=== PATIENT | male | born 1960 | race Caucasian/White ===

== ENCOUNTER → 2017-04-22 15:55 | Outpatient (CLI) | payer OTHER, SELFPAY ==
[2017-04-22 17:45] LABS: Absolute Lymphocyte Count 1.71 X10^3/ul (0.83-4.51); Absolute Neutrophil Count 4.2 X10^3/uL (2.0-7.7); Basophil# 0.02 X10^3/uL; Basophil% 0.3 % (0-1); Eosinophil# 0.28 X10^3/uL; Eosinophils% 4.1 % (0-5); Hemoglobin 12.4 g/dl (13.0-16.5); Lymphocyte # 1.71 X10^3/ul (4.0); Mean Corp Hgb Conc 32.6 g/gl (32-36); Mean Corpuscular Hgb 29.7 pg (27.0-32.0); Mean Corpuscular Volume 91.1 fL (80-94); Mean Platelet Vol. 9.7 fl (6.2-12.0); Monocyte# 0.56 X10^3/uL; Monocyte% 8.2 % (0-10); Neutrophil # 4.24 X10^3/uL (2.7-7.7); Neutrophil % 62.1 % (47-70); Platelet Count 258 K/mm3 (150-450); RBC Distribution Width CV 14.8 % (11.6-14.6); RBC Distribution Width SD 48.1 fl (35.1-43.9); Red Blood Count 4.17 M/mm3 (4.6-6.2); White Blood Count 6.8 K/mm3 (4.4-11.0)
[2017-04-22 17:51] LABS: ALB/GLOB Ratio 1.2 RATIO (0.9-2.4); AST(SGOT) 28 U/L (15-37); Alanine Aminotransfer ALT/SGPT 49 U/L (16-61); Albumin, Serum 3.7 g/dL (3.2-5.0); Alkaline Phosphatase 68 U/L (45-117); Anion Gap 7 (5-15); BUN 19 mg/dL (7-18); BUN/Creat Ratio 21.9 RATIO (10-20); Calcium,Total 8.5 mg/dL (8.5-10.1); Chloride 103 mmol/L (98-107); Creatinine, Serum 0.87 mg/dL (0.70-1.30); EST Glomerular Filtration Rate 96 mL/min (>60); Est Glom Filt Rate - Afr Amer 116 mL/min (>60); Globulin 3.2 g/dL (2.2-4.2); Glucose 98 mg/dL (74-106); Potassium 3.8 mmol/L (3.5-5.1); Protein, Total 6.9 g/dL (6.4-8.2); Sodium Level 140 mmol/L (136-145)
[2017-04-22 17:56] LABS: POSITIVE COUNT NO; POSITIVE DIFFERENTIAL NO; POSITIVE MORPHOLOGY NO
== END ==
PROVIDERS: Family Provider Internal Medicine; PCP Internal Medicine; Visit Provider Internal Medicine Rheumatology
DX: M06.09 Rheumatoid arthritis without rheumatoid factor, multiple sites (principal); Z79.899 Other long term (current) drug therapy; M75.40 Impingement syndrome of unspecified shoulder; K21.9 Gastro-esophageal reflux disease without esophagitis; M50.30 Other cervical disc degeneration, unspecified cervical region; G47.33 Obstructive sleep apnea (adult) (pediatric); I10 Essential (primary) hypertension; F32.89 Other specified depressive episodes; J45.909 Unspecified asthma, uncomplicated
CPT/HCPCS: 36415; 80053; 85025

== ENCOUNTER → 2017-06-04 15:46 | Outpatient (CLI) | payer OTHER, SELFPAY ==
--- NOTE | 2017-06-04 15:48 | RAD_ITS ---
STUDY: X-RAY - RIGHT FOOT CLINICAL: Male, 56 years old. Right foot pain. TECHNIQUE: 3 view(s) of the foot. COMPARISON: None. FINDINGS: Normal talus, calcaneus, and tarsal bones. Normal visualized subtalar, talonavicular, calcaneocuboid, tarsal and tarsometatarsal articulations. Normal metatarsi. There is degenerative arthrosis of the metatarsophalangeal joint of the hallux . There is an 8 mm subchondral cyst of the head of the first metatarsal. Normal tibial and fibular sesamoid bones. Normal interphalangeal joint of the great toe. Normal phalanges of the great toe. Normal second through fifth metatarsophalangeal joints. Normal interphalangeal joints and phalanges of the lesser toes. The soft tissue structures are unremarkable. RAD/Foot min 3 Views IMPRESSION: No acute abnormality. Prominent degenerative changes of the first metatarsophalangeal joint. Electronically Signed: Anuel Harrison MD at 23:13 EDT , Service support ,
--- NOTE | 2017-06-04 15:55 | RAD_ITS ---
STUDY: X-RAY - LEFT FOOT CLINICAL: Male, 56 years old. Pain. TECHNIQUE: 3 view(s) of the foot. COMPARISON: None. FINDINGS: Normal talus, calcaneus, and tarsal bones. Normal visualized subtalar, talonavicular, calcaneocuboid, tarsal and tarsometatarsal articulations. Normal metatarsi. Normal metatarsophalangeal joint of the great toe. Normal tibial and fibular sesamoid bones. Normal interphalangeal joint of the great toe. Normal phalanges of the great toe. Normal second through fifth metatarsophalangeal joints. Normal interphalangeal joints and phalanges of the lesser toes. The soft tissue structures are unremarkable. There is no demonstrated fracture. RAD/Foot min 3 Views IMPRESSION: Normal x-ray examination of the foot. Electronically Signed: Anuel Harrison MD at 23:14 EDT , Service support ,
== END ==
PROVIDERS: Family Provider Internal Medicine; PCP Internal Medicine; Visit Provider Podiatrist
DX: M19.90 Unspecified osteoarthritis, unspecified site (principal)
CPT/HCPCS: 73630

== ENCOUNTER → 2017-06-29 08:26 | Outpatient (CLI) | payer OTHER, SELFPAY ==
[2017-06-29 08:40] LABS: Bacteria 0 SEEN /hpf (None Seen); Mucous, Urine 0 SEEN /hpf (<or=2+); Red Blood Cells-Urine 0 SEEN /hpf (0-5); Squamous Epithelial Cells - UA 0 SEEN /hpf (0-5); White Blood Cells 0 SEEN /hpf (0-5)
[2017-06-29 09:10] LABS: Absolute Lymphocyte Count 1.73 X10^3/ul (0.83-4.51); Absolute Neutrophil Count 2.9 X10^3/uL (2.0-7.7); Basophil# 0.02 X10^3/uL; Basophil% 0.4 % (0-1); Color, Urine Yellow (Yellow); Eosinophils% 3.7 % (0-5); Glucose, Dipstick Normal (Normal); Hematocrit 39.2 % (40-54); Hemoglobin 12.3 g/dl (13.0-16.5); Ketone-Dipstick 5 mg/dl (Negative); Leukocyte Esterase-Dipstick Negative /ul (Negative); Lymphocyte # 1.73 X10^3/ul (4.0); Lymphocyte % 32.4 % (19-41); Mean Corp Hgb Conc 31.4 g/gl (32-36); Mean Corpuscular Hgb 28.9 pg (27.0-32.0); Mean Corpuscular Volume 92.2 fL (80-94); Mean Platelet Vol. 9.1 fl (6.2-12.0); Monocyte# 0.53 X10^3/uL; Monocyte% 9.9 % (0-10); Neutrophil # 2.85 X10^3/uL (2.7-7.7); Neutrophil % 53.4 % (47-70); Nitrite-Dipstick Negative (Negative); Occult Blood-Urine Negative /ul (Negative); POSITIVE COUNT NO; POSITIVE DIFFERENTIAL NO; POSITIVE MORPHOLOGY NO; Platelet Count 226 K/mm3 (150-450); Protein-Dipstick Negative (Negative); RBC Distribution Width SD 53.5 fl (35.1-43.9); Red Blood Count 4.25 M/mm3 (4.6-6.2); Urine Clarity Clear (Clear); Urine Urobilinogen Normal (Normal); White Blood Count 5.3 K/mm3 (4.4-11.0)
[2017-06-29 09:11] LABS: Urine Bilirubin Dipstick 1 mg/dL (Negative)
[2017-06-29 09:32] LABS: Microalbumin,Random Urine 10.9 mg/L (NO RANGE EST.); Microalbumin:Creatinine Ratio 4.1 mg/g CRE (<30 mg/g CRE)
[2017-06-29 09:37] LABS: ALB/GLOB Ratio 1.1 RATIO (0.9-2.4); AST(SGOT) 22 U/L (15-37); Alanine Aminotransfer ALT/SGPT 36 U/L (16-61); Albumin, Serum 3.5 g/dL (3.2-5.0); Alkaline Phosphatase 55 U/L (45-117); Anion Gap 4 (5-15); BUN 19 mg/dL (7-18); BUN/Creat Ratio 22.7 RATIO (10-20); Calcium,Total 8.4 mg/dL (8.5-10.1); Chloride 108 mmol/L (98-107); Cholesterol 132 mg/dL (200); Creatinine, Serum 0.84 mg/dL (0.70-1.30); EST Glomerular Filtration Rate 100 mL/min (>60); Est Glom Filt Rate - Afr Amer 121 mL/min (>60); Globulin 3.2 g/dL (2.2-4.2); Glucose 95 mg/dL (74-106); High Density Lipoprotein 56 mg/dL; Potassium 4.2 mmol/L (3.5-5.1); Protein, Total 6.7 g/dL (6.4-8.2); Sodium Level 141 mmol/L (136-145); Thyroid Stim Hormone (TSH) 0.84 uIU/mL (0.358-3.74); Triglycerides 47 mg/dL; Very Low Density Lipoprotein 9 mg/dL (5-40)
[2017-07-01 09:30] LABS: Vitamin D,25 Hydroxy 38.9 ng/mL (29.95-100.01)
== END ==
PROVIDERS: Family Provider Internal Medicine; PCP Internal Medicine; Visit Provider Internal Medicine
DX: M06.00 Rheumatoid arthritis without rheumatoid factor, unspecified site (principal); Z79.899 Other long term (current) drug therapy; M75.42 Impingement syndrome of left shoulder; M75.41 Impingement syndrome of right shoulder; K21.9 Gastro-esophageal reflux disease without esophagitis; M50.30 Other cervical disc degeneration, unspecified cervical region; G47.33 Obstructive sleep apnea (adult) (pediatric); I10 Essential (primary) hypertension; F32.89 Other specified depressive episodes; J45.909 Unspecified asthma, uncomplicated; E55.9 Vitamin D deficiency, unspecified; R73.02 Impaired glucose tolerance (oral)
CPT/HCPCS: 80053; 80061; 81001; 82043; 82306; 82570; 83036; 84443; 85025

== ENCOUNTER → 2017-09-25 14:44 | Outpatient (CLI) | payer OTHER, SELFPAY ==
--- NOTE | 2017-09-25 14:50 | RAD_ITS ---
STUDY: X-RAY - RIGHT FOOT CLINICAL: Male, 57 years old. Lateral foot trauma, pain. TECHNIQUE: 3 view(s) of the foot. COMPARISON: None. FINDINGS: Osteopenia. Mild DJD of the interphalangeal joints, mild to moderate of the 1st digit metatarsophalangeal joint, mild hallux valgus of the 1st digit. No fracture. Preserved arch. Unremarkable soft tissues. Prominent peripheral vascular calcifications. RAD/Foot min 3 Views IMPRESSION: No evidence of acute injury. Electronically Signed: Davin Cárdenas, at 18:04 EDT Tel , Service support ,
--- NOTE | 2017-09-25 14:50 | RAD_ITS ---
STUDY: X-RAY - RIGHT KNEE REASON FOR EXAM: Male, 57 years old. Pain, no injury. TECHNIQUE: 4 view(s) of the knee. COMPARISON: None. FINDINGS: Osteopenia. No effusion. Periarticular soft tissues unremarkable. Mild joint margin osteophytic lipping of the patellofemoral articulation, in particular the lateral facets. No significant degenerative features of the medial or lateral compartment of the knee. RAD/Knee 4 or More Views IMPRESSION: Mild DJD of the patellofemoral joint. Electronically Signed: Davin Cárdenas, at 18:05 EDT Tel , Service support ,
== END ==
PROVIDERS: Family Provider Internal Medicine; PCP Internal Medicine; Visit Provider Internal Medicine
DX: M25.561 Pain in right knee (principal); M79.671 Pain in right foot
CPT/HCPCS: 73564; 73630

== ENCOUNTER → 2017-10-11 16:45 | Outpatient (CLI) | payer OTHER, SELFPAY ==
[2017-10-11 17:08] LABS: Absolute Lymphocyte Count 1.45 X10^3/ul (0.83-4.51); Absolute Neutrophil Count 5.4 X10^3/uL (2.0-7.7); Basophil# 0.02 X10^3/uL; Basophil% 0.3 % (0-1); Eosinophil# 0.11 X10^3/uL; Eosinophils% 1.4 % (0-5); Hematocrit 40.2 % (40-54); Lymphocyte # 1.45 X10^3/ul (4.0); Mean Corp Hgb Conc 32.3 g/gl (32-36); Mean Corpuscular Hgb 29.6 pg (27.0-32.0); Mean Corpuscular Volume 91.6 fL (80-94); Mean Platelet Vol. 9.3 fl (6.2-12.0); Monocyte# 0.67 X10^3/uL; Monocyte% 8.8 % (0-10); Neutrophil # 5.39 X10^3/uL (2.7-7.7); Neutrophil % 70.4 % (47-70); Platelet Count 218 K/mm3 (150-450); RBC Distribution Width CV 15.5 % (11.6-14.6); RBC Distribution Width SD 50.1 fl (35.1-43.9); Red Blood Count 4.39 M/mm3 (4.6-6.2); White Blood Count 7.7 K/mm3 (4.4-11.0)
[2017-10-11 17:10] LABS: POSITIVE COUNT NO; POSITIVE DIFFERENTIAL NO; POSITIVE MORPHOLOGY NO
[2017-10-11 17:36] LABS: ALB/GLOB Ratio 1.2 RATIO (0.9-2.4); AST(SGOT) 27 U/L (15-37); Alanine Aminotransfer ALT/SGPT 37 U/L (16-61); Albumin, Serum 3.9 g/dL (3.2-5.0); Alkaline Phosphatase 62 U/L (45-117); Anion Gap 6 (5-15); BUN 19 mg/dL (7-18); BUN/Creat Ratio 18.3 RATIO (10-20); Calcium,Total 8.7 mg/dL (8.5-10.1); Chloride 104 mmol/L (98-107); Creatinine, Serum 1.04 mg/dL (0.70-1.30); EST Glomerular Filtration Rate 78 mL/min (>60); Est Glom Filt Rate - Afr Amer 94 mL/min (>60); Globulin 3.3 g/dL (2.2-4.2); Glucose 110 mg/dL (74-106); Potassium 4.2 mmol/L (3.5-5.1); Protein, Total 7.2 g/dL (6.4-8.2); Sodium Level 138 mmol/L (136-145)
== END ==
PROVIDERS: Family Provider Internal Medicine; PCP Internal Medicine; Visit Provider Internal Medicine Rheumatology
DX: M06.00 Rheumatoid arthritis without rheumatoid factor, unspecified site (principal); Z79.899 Other long term (current) drug therapy; M75.42 Impingement syndrome of left shoulder; M75.41 Impingement syndrome of right shoulder; K21.9 Gastro-esophageal reflux disease without esophagitis; M50.30 Other cervical disc degeneration, unspecified cervical region; G47.33 Obstructive sleep apnea (adult) (pediatric); I10 Essential (primary) hypertension; F32.89 Other specified depressive episodes; J45.909 Unspecified asthma, uncomplicated
CPT/HCPCS: 36415; 80053; 85025

== ENCOUNTER → 2017-10-23 08:31 | Outpatient (CLI) | payer OTHER, SELFPAY ==
[2017-10-23 10:47] LABS: Hemoglobin A1c 5.7 % (4.2-6.3)
== END ==
PROVIDERS: Family Provider Internal Medicine; PCP Internal Medicine; Visit Provider Internal Medicine
DX: R73.02 Impaired glucose tolerance (oral) (principal)
CPT/HCPCS: 36415; 83036

== ENCOUNTER 2017-10-23 08:44 | Outpatient (RCR) | payer OTHER, SELFPAY ==
--- NOTE | 2017-10-23 09:30 | HP.PTEVAL_ITS ---
Patient's Visit Information ED Cristian MORROW is a 57 year old M referred to Physical Therapy by Cari Portillo with a diagnosis of BPPV. Date of Evaluation: 10/23/17 Physical Therapist: Farrukh Mcleod DPT, [place] - Visit Plan Frequency: 1x/Week Duration: 2-6 Plan: weekly as needed for positional treatments - Subjective Subjective: Got vertigo about a month ago. Woke up one morning out of bed and started spinning and almost fell down. Lasted a few seconds. Bending over or getting up can still cause it for a few seconds. Lying down at night with L ear causes spinning. Rolling to L causes it also. Happening a couple times per day. In between these sessions, no problems, sometimes has SCHERER more pronounced than normal but balance is good and no other goofy feelings. Sleep is good. Gets dizzy at work but it doesn't stop him. 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 Mary : no dizzyness. Basic aDLs are OK - Objective c/s AROM limited but not painful. L HD + up torsional 10 sec. - R HD. Balance is good. walks well and trasnfers easily and I. - Balance Scores Functional Gait Assessment Score: 30 % Disability: 0 - Goals Goal 1:: Abolish dizzyness Goal Time Frame: 2-4 Weeks Goal 2:: Patient feel 100% back to normal. Goal Time Frame: 2-4 Weeks - Rehabilitation Potential Physical Therapy Diagnosis: L posterior BPPV Rehabilitation Potential: Good - Anticipated Interventions Patient/Client Instruction: Educate patient on: Condition, Plan of Care For the Purpose of:: To increase tolerance to activity/condition/position Comment: positional treatments and ex as needed. For the Purpose of:: To increase tolerance to activity/condition/position, To improve ability of physical actions for home/community/work/leisure Thank you for the opportunity to evaluate your patient. For Medicare and Medicare HMO plans, please review the plan of care and approve it. It will need to be FAXED BACK to us at [phone] for Medicare purposes. Please let me know if there are questions or concerns regarding this plan of care. Physician Signature: Date:
--- NOTE | 2017-10-30 08:44 | HP.PTDCSUM_ITS ---
HP - PT D/C Summary It has been my pleasure to treat ED R CRISTHIAN under orders from Cari Portillo , for the diagnosis of BPPV for a total of 1 visit(s). Discharge Date: 10/30/17 Please see the following information for a summary of their discharge status. - Overall Improvement % Improvement: 100 - Goals Goal 1:: Abolish dizzyness Goal Progress: Goal Met Goal 2:: Patient feel 100% back to normal. Goal Progress: Goal Met - Plan Plan: D/C - D/C Information Discharge Comments: Pt has called adn I spoke to him on the phone. He is 100% better since positional treatment and does not need to return. Not avoiding any activities. Will f/u with doctor next week. If there are questions or concerns regarding this patient's physical therapy, please feel free to call me at [phone]. Thank you for the referral of this patient. Sincerely, Farrukh Mcleod, DPT, [place]
== END 2017-10-23 19:00 | disposition home or self-care (01) ==
LOC: PT 08:44
PROVIDERS: Family Provider Internal Medicine; PCP Internal Medicine; Visit Provider Internal Medicine
DX: H81.10 Benign paroxysmal vertigo, unspecified ear (principal)
CPT/HCPCS: 97161

== ENCOUNTER → 2018-03-08 07:00 | Outpatient (CLI) | payer OTHER, SELFPAY ==
[2018-01-18 08:15] VITALS: BMI 41.8
[2018-03-08 07:09] LABS: Bacteria 0 SEEN /hpf (None Seen); Mucous, Urine 0 SEEN /hpf (<or=2+); Red Blood Cells-Urine 0 SEEN /hpf (0-5); Squamous Epithelial Cells - UA 0 SEEN /hpf (0-5); White Blood Cells 0 SEEN /hpf (0-5)
[2018-03-08 08:25] LABS: Color, Urine Yellow (Yellow); Glucose, Dipstick Normal (Normal); Ketone-Dipstick Negative (Negative); Leukocyte Esterase-Dipstick Negative /ul (Negative); Nitrite-Dipstick Negative (Negative); Occult Blood-Urine Negative /ul (Negative); Protein-Dipstick Negative (Negative); Urine Bilirubin Dipstick Negative (Negative); Urine Clarity Clear (Clear); Urine Urobilinogen Normal (Normal)
[2018-03-08 08:43] LABS: Absolute Lymphocyte Count 1.37 X10^3/ul (0.83-4.51); Absolute Neutrophil Count 2.9 X10^3/uL (2.0-7.7); Basophil# 0.03 X10^3/uL; Basophil% 0.6 % (0-1); Eosinophil# 0.51 X10^3/uL; Eosinophils% 9.4 % (0-5); Hematocrit 41.7 % (40-54); Hemoglobin 13.2 g/dl (13.0-16.5); Lymphocyte # 1.37 X10^3/ul (4.0); Lymphocyte % 25.2 % (19-41); Mean Corp Hgb Conc 31.7 g/gl (32-36); Mean Corpuscular Hgb 29.4 pg (27.0-32.0); Mean Corpuscular Volume 92.9 fL (80-94); Mean Platelet Vol. 10.2 fl (6.2-12.0); Monocyte# 0.59 X10^3/uL; Monocyte% 10.9 % (0-10); Neutrophil # 2.92 X10^3/uL (2.7-7.7); Neutrophil % 53.7 % (47-70); POSITIVE COUNT NO; POSITIVE DIFFERENTIAL NO; POSITIVE MORPHOLOGY NO; Platelet Count 215 K/mm3 (150-450); RBC Distribution Width CV 15.3 % (11.6-14.6); RBC Distribution Width SD 50.8 fl (35.1-43.9); Red Blood Count 4.49 M/mm3 (4.6-6.2); White Blood Count 5.4 K/mm3 (4.4-11.0)
[2018-03-08 08:58] LABS: Microalbumin,Random Urine < 5.0 mg/L (NO RANGE EST.)
[2018-03-08 09:08] LABS: ALB/GLOB Ratio 1.1 RATIO (0.9-2.4); AST(SGOT) 18 U/L (15-37); Alanine Aminotransfer ALT/SGPT 31 U/L (16-61); Albumin, Serum 3.6 g/dL (3.2-5.0); Alkaline Phosphatase 61 U/L (45-117); Anion Gap 7 (5-15); BUN 13 mg/dL (7-18); BUN/Creat Ratio 15.4 RATIO (10-20); Calcium,Total 8.6 mg/dL (8.5-10.1); Chloride 106 mmol/L (98-107); Creatinine, Serum 0.84 mg/dL (0.70-1.30); EST Glomerular Filtration Rate 99 mL/min (>60); Est Glom Filt Rate - Afr Amer 120 mL/min (>60); Globulin 3.2 g/dL (2.2-4.2); Glucose 91 mg/dL (74-106); Potassium 4.2 mmol/L (3.5-5.1); Protein, Total 6.8 g/dL (6.4-8.2); Sodium Level 142 mmol/L (136-145); Thyroid Stim Hormone (TSH) 1.19 uIU/mL (0.358-3.74)
[2018-03-08 09:21] LABS: Hemoglobin A1c 6.2 % (4.2-6.3)
[2018-03-08 13:20] LABS: Vitamin D,25 Hydroxy 47.8 ng/mL (29.95-100.01)
[2018-03-10 20:08] LABS: CHOLESTEROL TOTAL 166 mg/dL (100-199); HDL-C 52 mg/dL (>39); HDL-P TOTAL 35.5 umol/L (>=30.5); SMALL LDL-P 266 nmol/L (<=527); TRIGLYCERIDES 71 mg/dL (0-149)
[2018-03-11 08:17] LABS: LDL SIZE 21.4 nm (>20.5); LDL-C 100 mg/dL (0-99); LDL-P 1191 nmol/L (<1000)
[2018-03-11 08:18] LABS: LP-IR SCORE ** 29 (<=45)
== END ==
PROVIDERS: Family Provider Internal Medicine; PCP Internal Medicine; Referring Provider Internal Medicine; Visit Provider Internal Medicine
DX: R73.02 Impaired glucose tolerance (oral) (principal); E55.9 Vitamin D deficiency, unspecified
CPT/HCPCS: 36415; 80053; 80061; 81001; 82043; 82306; 82570; 83036; 83704; 84443; 85025

== ENCOUNTER → 2018-03-18 15:46 | Outpatient (CLI) | payer OTHER, SELFPAY ==
[2018-01-18 08:15] VITALS: BMI 41.8
[2018-03-18 16:12] LABS: Absolute Neutrophil Count 4.8 X10^3/uL (2.0-7.7); Basophil# 0.02 X10^3/uL; Basophil% 0.3 % (0-1); Eosinophil# 0.59 X10^3/uL; Eosinophils% 7.5 % (0-5); Hematocrit 42.6 % (40-54); Hemoglobin 13.6 g/dl (13.0-16.5); Lymphocyte % 21.6 % (19-41); Mean Corp Hgb Conc 31.9 g/gl (32-36); Mean Corpuscular Hgb 29.2 pg (27.0-32.0); Mean Corpuscular Volume 91.6 fL (80-94); Mean Platelet Vol. 9.8 fl (6.2-12.0); Monocyte# 0.72 X10^3/uL; Monocyte% 9.2 % (0-10); Neutrophil # 4.81 X10^3/uL (2.7-7.7); Neutrophil % 61.1 % (47-70); Platelet Count 247 K/mm3 (150-450); RBC Distribution Width SD 49.3 fl (35.1-43.9); Red Blood Count 4.65 M/mm3 (4.6-6.2); White Blood Count 7.9 K/mm3 (4.4-11.0)
[2018-03-18 16:21] LABS: POSITIVE COUNT NO; POSITIVE DIFFERENTIAL NO; POSITIVE MORPHOLOGY NO
[2018-03-18 16:32] LABS: PSA,Total - Annual Screen 0.62 ng/mL (0.00-4.00)
--- OUTSIDE RECORDS SUMMARY | 2018-05-20 21:49 | XMS RPT_ITS | Continuity of Care Document ---
:1960 Author Organization [facility] Address [address] [place] [address] Phone Care Team Providers Name Role Phone Cari Coles DO Unavailable Andrea Garcia Unavailable Dr. Long Colmenares Unavailable [facility], [facility] Unavailable Dr. Fabio Robb Unavailable Dr. Markel Montes Unavailable Paco Schaffer Unavailable Axel SINGH, Graham Canales Unavailable Dr. Yariel Palmer Unavailable Dr. Ca Valenzuela Unavailable Dr. Uzair Tay MD Unavailable Shahid SINGH, Kole Arevalo Unavailable [facility] Unavailable Fredi Perez Unavailable Kitty SINGH, Max Rodriguez Unavailable STACIA Rodriguez Unavailable Unavailable caterina gonsales Unavailable Unavailable Rebekah Neff Unavailable Unavailable Unavailable Unavailable Problems Name Dates Details Abnormal glucose tolerance test (Renamed from Abnormal glucose tolerance test (GTT)) (R73.09, 790.22) Comments: stopped metformin as trial to come off with sugar conttrol- [facility] went up but over holidays-- he wants to get back on lifestryle track nad do no meds x4mo he will adhere to diet and exercise Status: Active Actinic keratosis (L57.0, 702.0) Status: Active Allergic reaction to drug, initial encounter (T78.40XA, 995.27) Status: Active Asthma (J45.909, 493.90) Comments: pt doesnt use inhalers - 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 Status: Active BMI 40.0-44.9, adult (Z68.41, V85.41) Status: Active BMI 45.0-49.9, adult (Z68.42, V85.42) Status: Active Borderline diabetes (R73.03, 790.29) Status: Active BPV (benign positional vertigo), bilateral (H81.13, 386.11) Status: Active Carotid stenosis (I65.29, 433.10) Comments: rev 2016 Status: Active carotodynia Status: Active Cervical radiculopathy, acute (M54.12, 723.4) Status: Active Daytime somnolence (Renamed from Daytime hypersomnolence) (R40.0, 780.54) Status: Active Diaphragmatic hernia without obstruction (K44.9, 553.3) Status: Active Dizzy spells (R42, 780.4) Status: Active Ear pressure, bilateral (H93.8X3, 388.8) Comments: resume nasal spray and decog-- on zyzal already -- no s/s of sinus infection to treat adn last time went to urgent care they told him same but gave zpack as trial of smoldering infection causing sx and it didnt helpprob weather front related offered ENT consult and he declined today Status: Active Eczema (L30.9, 692.9) Status: Active Elevated hemoglobin A1c (R73.09, 790.29) Status: Active Encounter for screening for malignant neoplasm of colon (Renamed from Special screening for malignant neoplasms, colon) (Z12.11, V76.51) Status: Active Eosinophilia (D72.1, 288.3) Comments: will repeat cbc first before other w/u-- alexi known asthma Status: Active ETD (Eustachian tube dysfunction), bilateral (H69.83, 381.81) Status: Active ETD (Eustachian tube dysfunction), bilateral (H69.83, 381.81) Status: Active Exposure to the flu (Z20.828, V01.79) Status: Active Foot pain, right (M79.671, 729.5) Status: Active Generalized pruritus (L29.9, 698.9) Comments: liver adn kid lab normal -- seeing Dr galindo no chg in rx color or manufacurer Status: Active GERD with apnea (K21.9, 530.81) Status: Active Hyperglycemia (R73.9, 790.29) Status: Active Hypertension (I10, 401.9) Status: Active Immunocompromised, acquired (D84.9, 279.3) Status: Active Influenza vaccination declined (Renamed from Refused influenza vaccine) (Z28.21, V64.06) Status: Active Inversion sprain of right ankle, initial encounter (S93.401A, 845.00) Status: Active Iron deficiency anemia, unspecified (D50.9, 280.9) Comments: chronic stable-continue present regimen Status: Active Itch of skin (L29.9, 698.9) Comments: currently on xyzal 5mg told to increase to 10 mg, needs malignancy work up, will discuss with KF Status: Active Low back pain potentially associated with radiculopathy (M54.5, 724.2) Status: Active Mild degeneration of cervical intervertebral disc (M50.30, 722.4) Comments: getting injections Status: Active Nonsmoker (Z78.9, V49.89) Status: Active Nutritional counseling (Z71.3, V65.3) Status: Active Obstructive sleep apnea, adult (G47.33, 327.23) Status: Active Other anxiety states (F41.1, 300.09) Status: Active Other intervertebral disc degeneration, lumbar region (M51.36, 722.52) Comments: improving with weight loss Status: Active Pain in foot (M79.673, 729.5) Status: Active Pain in joint involving other specified sites (M25.50, 719.48) Status: Active Pain in lateral right lower extremity (M79.604, 729.5) Comments: oferred ncs and emg -- but decliined to do now -- will think about and handle current issues Status: Active Radiculopathy of leg (724.4) Comments: encourage see pain managemnt and consider neurontin Status: Active Rash (R21, 782.1) Comments: fine rash around eyes and fairly fine around face, but itching all over body, labs pending in February look to be appropriate to be drawn sooner Status: Active Raynaud's syndrome (I73.00, 443.0) Status: Active Rheumatoid arthritis (M06.9, 714.0) Comments: dr de discharged him bc they dont get along per patient-- pt doesnt referred to anyone else right now - he wants to stop meds Status: Active Right knee pain, unspecified chronicity (M25.561, 719.46) Status: Active Rosacea (Renamed from Acne erythematosa) (L71.9, 695.3) Status: Active Screening for prostate cancer (Z12.5, V76.44) Status: Active Skin lesion (L98.9, 709.9) Status: Active SYMPTOMS INVOLVING SKIN AND OTHER INTEGUMENTARY TISSUE, FLUSHING (782.62) Status: Active Tendonitis, Achilles, right (M76.61, 726.71) Status: Active VARICOSE VEINS- SUPPORT HOSE Status: Active Vitamin D deficiency (E55.9, 268.9) Status: Active Medications Name Dates Details ASPIRIN LOW DOSE, 81MG (Oral Tablet) 1 tab qd for 0 days Refills: 0 Ordered:08-Feb-2009 Vlad Hunter Cymbalta 60 MG Oral Capsule Delayed Release Particles 1 (one) Capsule DR Part q am for 0 days Quantity: 90 {Capsule} Refills: 3 Ordered:03-Jul-2017 Sharon Coles DO, DO, Kathleen Start : 03-Jul-2017 Active Irbesartan 150 MG Oral Tablet 1 qd (150 MG) Active Levocetirizine Dihydrochloride 5 MG Oral Tablet 1 qd (5 MG) Active Protonix 40 MG Oral Tablet Delayed Release [address] qd for 0 days Quantity: 90 {Tablet} Refills: 3 Ordered:03-Jul-2017 Sanket DO, Cari Herrera DO Start : 03-Jul-2017 Active Simply Sleep 25 MG Oral Tablet 2 qhs (25 MG) Active SINGULAIR, 10MG (Oral Tablet) 1 tab daily (10 MG) Active Advair Diskus 250-50 MCG/DOSE Inhalation Aerosol Powder Breath Activated 1 puff Misc bid for 0 days Quantity: 3 {Inhaler} Refills: 3 Ordered:12-Mar-2018 Libby Rodriguez LPN Start : 07-Feb-2015 End : 12-Mar-2018 Inactive SYEDA, 180MG (Oral Tablet) 1 (one) Tablet qd for 0 days Quantity: 90 {Tablet} Refills: 3 Ordered:28-Oct-2007 Fay Adamson Start : 28-Oct-2007 End : 30-Nov-2008 Inactive SYEDA-D 12 HOUR, 60-120MG (Oral Tablet Extended Release 12 Hour) 1 for 0 days Refills: 0 Ordered:09-Sep-2009 WADE Monterroso Start : 29-Dec-2008 Inactive Artificial Tears 0.1-0.3 % Ophthalmic Solution 1 (one) Solution Solution tid for 0 days Quantity: 1 {Bottle} Refills: 0 Ordered:27-Feb-2017 Kassi Gonsales LPN Start : 16-May-2016 End : 27-Feb-2017 Inactive Avapro 150 MG Oral Tablet 1 (one) Tablet Tablet qd for 0 days Quantity: 30 {Tablet} Refills: 3 Ordered:12-Mar-2018 Libby Rodriguez LPN Start : 12-Feb-2018 End : 12-Mar-2018 Inactive Aveeno Eczema Therapy 1 % External Cream 1 (one) Cream Cream daily for 0 days Quantity: 1 {Bottle} Refills: 0 Ordered:27-Feb-2017 Kassi Gonsales LPN Start : 16-May-2016 End : 27-Feb-2017 Inactive BIAXIN XL, 500MG (Oral Tablet Extended Release 24 Hour) 2 (two) Tablet ER 24HR daily for 10 days Quantity: 20 {Tablet_ER_24HR} Refills: 0 Ordered:14-Jul-2012 Efren Uriarte CNP Start : 14-Jul-2012 End : 24-Jul-2012 Inactive Etodolac ER 400 MG Oral Tablet Extended Release 24 Hour 2 (two) Tablet Tablet qd with food for 0 days Quantity: 20 {Tablet} Refills: 0 Ordered:06-Nov-2017 Libby Rodriguez LPN Start : 03-Jul-2017 End : 06-Nov-2017 Inactive Flonase 50 MCG/ACT Nasal Suspension 2 (two) Puff(s) daily for 0 days Quantity: 1 {[place]} Refills: 0 Ordered:12-Mar-2018 Libby Rodriguez LPN Start : 09-Oct-2017 End : 12-Mar-2018 Inactive Folic Acid 1 MG Oral Tablet 1 Tablet two times daily for 360 days Quantity: 30 {Tablet} Refills: 0 Ordered:12-Mar-2018 Libby Rodriguez LPN Start : 02-Dec-2012 End : 12-Mar-2018 Inactive HYDROXYZINE HCL, 10MG (Oral Tablet) 1 tab q 8hrs, prn (10 MG) Inactive LAMISIL, 250MG (Oral Tablet) 1 (one) Tablet qd for 0 days Quantity: 30 {Tablet} Refills: 2 Ordered:20-Nov-2007 Juan Diego Fay Start : 20-Nov-2007 End : 23-Mar-2008 Inactive LIDODERM, 5% (External Patch) 1 (one) Patch on 12 hrs off 12 hrs for 0 days Quantity: 10 {Patch} Refills: 0 Ordered:06-Mar-2010 Kassi Gonsales LPN Start : 29-Sep-2009 End : 06-Mar-2010 Inactive Meclizine HCl 25 MG Oral Tablet 1 (one) Tablet Tablet q8hr prn for 0 days Quantity: 30 {Tablet} Refills: 0 Ordered:12-Feb-2018 Laura CORONA Allyson Start : 09-Oct-2017 End : 12-Feb-2018 Inactive Meloxicam 15 MG Oral Tablet 1 (one) Tablet Tablet qd with food for 0 days Quantity: 20 {Tablet} Refills: 0 Ordered:12-Feb-2018 Laura CORONA Allyson Start : 25-Sep-2017 End : 12-Feb-2018 Inactive MYCELEX, 10MG (Mouth/Throat Cat) 1 Cat 5 x daily for 10 days Quantity: 50 {Cat} Refills: 0 Ordered:04-May-2011 Laura CORONA Allyson Start : 04-May-2011 End : 14-May-2011 Inactive [id number], 0.1% (Ophthalmic Suspension) apply ointment to each eye q hs (0.1 %) Inactive ProAir HFA 108 (90 Base) MCG/ACT Inhalation Aerosol Solution 2 (two) Aerosol Soln Aerosol Soln puffs qid prn for 0 days Quantity: 1 {Inhaler} Refills: 3 Ordered:12-Mar-2018 Libby Rodriguez LPN Start : 07-Feb-2015 End : 12-Mar-2018 Inactive RHINOCORT DAWITA, 32MCG/ACT (Nasal Suspension) 1 for 0 days Refills: 0 Ordered:04-May-2011 Paras PALOMO Naye Start : 29-Dec-2008 End : 04-May-2011 Inactive Tamiflu 75 MG Oral Capsule 1 (one) Capsule daily for 10 days Quantity: 10 {QS} Refills: 0 Ordered:25-Mar-2017 Essence Jimenez Start : 25-Mar-2017 End : 04-Apr-2017 Inactive ULTRACET, 37.5-325MG (Oral Tablet) 2 tabs Tablet qd,prn for 0 days Quantity: 60 {Tablet} Refills: 3 Ordered:23-Mar-2008 Fay Adamson Start : 05-Nov-2005 End : 18-Mar-2006 Inactive Valium 5 MG Oral Tablet 1/2-1 Tablet Tablet bid prn muscle spasm for 0 days Quantity: 30 {Tablet} Refills: 0 Ordered:12-Mar-2018 Libby Rodriguez LPN Start : 28-Mar-2016 End : 12-Mar-2018 Inactive Comments:thirty ASPIRIN BUFFERED, 325MG (Oral Tablet) 1 (one) Tablet qd for 0 days Refills: 0 Ordered:13-Jan-2007 Fay Adamson Start : 13-Jan-2007 End : 09-Jun-2007 Discontinued ASPIRIN, 325MG (Oral Tablet) 1 tab qd for 0 days Refills: 0 Ordered:23-Mar-2008 Fay Adamson End : 09-Jun-2007 Discontinued Avalide 150-12.5 MG Oral Tablet 1 tab Tablet qd for 0 days Quantity: 30 {Tablet} Refills: 3 Ordered:27-Feb-2017 Sharon Coles DO, DO, Kathleen Start : 27-Feb-2017 End : 27-Feb-2017 Discontinued Avapro 150 MG Oral Tablet 1 (one) Tablet qd for 0 days Quantity: 90 {Tablet} Refills: 3 Ordered:15-Oct-2016 Sharon Coles DO, DO, Kathleen Start : 15-Oct-2016 End : 15-Oct-2016 Discontinued AVAPRO, 300MG (Oral Tablet) 1 (one) Tablet daily for 0 days Quantity: 90 {Tablet} Refills: 2 Ordered:17-Aug-2015 Sharon Coles DO, DO, Kathleen Start : 17-Aug-2015 End : 17-Aug-2015 Discontinued Comments:with wt los CELEXA, 10MG (Oral Tablet) 1 (one) Tablet q hs for 0 days Quantity: 90 {Tablet} Refills: 3 Ordered:29-Jan-2011 Kathie Sen DO Start : 29-Jan-2011 End : 29-Jan-2011 Discontinued CYANOCOBALAMIN, 2000MCG (Oral Tablet) 1 tab qd for 0 days Refills: 0 Ordered:23-Mar-2008 Fay Adamson End : 09-Jun-2007 Discontinued Etodolac 500 MG Oral Tablet 1 tab Tablet BID for 90 days Quantity: 180 {Tablet} Refills: 3 Ordered:16-May-2016 Slarb Myla PALOMO Start : 05-Oct-2014 End : 16-May-2016 Discontinued Comments:Dr. Painting FLEXERIL, 10MG (Oral Tablet) 1 Tablet tid prn for 0 days Quantity: 60 {Tablet} Refills: 0 Ordered:31-Oct-2011 Karyn Hunter Start : 31-Oct-2011 End : 31-Oct-2011 Discontinued Gabapentin 300 MG Oral Capsule 1 (one) Capsule Capsule qhs for 5nights then bid for 5nights then tid for 0 days Quantity: 90 {Capsule} Refills: 1 Ordered:20-Apr-2016 Sharon Coles DO, DO, Kathleen Start : 20-Apr-2016 End : 20-Apr-2016 Discontinued Comments:allergy HYDROCHLOROTHIAZIDE, 12.5MG (Oral Tablet) 1 (one) Tablet daily for 90 days Quantity: 90 {Tablet} Refills: 3 Ordered:09-Nov-2009 Kathie Sen DO A Start : 09-Nov-2009 End : 09-Nov-2009 Discontinued HYDROCORTISONE VALERATE, 0.2% (External Cream) 1 Cream apply bid prn for 0 days Quantity: 60 {Cream} Refills: 1 Ordered:07-Jan-2013 Oscar Sen DOa A Start : 07-Jan-2013 End : 07-Jan-2013 Discontinued LEXAPRO, 10MG (Oral Tablet) 1 (one) Tablet q hs for 0 days Quantity: 30 {Tablet} Refills: 3 Ordered:09-Jun-2007 Fay Adamson Start : 09-Jun-2007 End : 09-Jun-2007 Discontinued LIPITOR, 10MG (Oral Tablet) 1 tab Tablet qd for 0 days Quantity: 30 {Tablet} Refills: 3 Ordered:02-Jan-2006 Fay Adamson Start : 02-Jan-2006 End : 24-Jun-2006 Discontinued LYRICA, 75MG (Oral Capsule) 1 cap Capsule bid for 90 days Quantity: 180 {Capsule} Refills: 3 Ordered:04-Jun-2011 Karyn Hunter Start : 04-Jun-2011 End : 04-Jun-2011 Discontinued MetFORMIN HCl ER 500 MG Oral Tablet Extended Release 24 Hour 2 (two) Tablet ER 24HR qd for 0 days Quantity: 180 {Tablet} Refills: 3 Ordered:06-Nov-2017 Sharon Coles DO, DO, Kathleen Start : 06-Nov-2017 End : 06-Nov-2017 Discontinued Comments:working ondiet and exercise Methotrexate 2.5 MG Oral Tablet 7 Tablet once a week for 90 days Quantity: 210 {Tablet} Refills: 0 Ordered:06-Nov-2017 Sharon Coles DO, DO, Kathleen Start : 06-Nov-2017 End : 06-Nov-2017 Discontinued Comments:veallanke discharged meds METROGEL, 1% (External Gel) 1 (one) Gel Gel apply qd for 0 days Quantity: 60 {Unspecified} Refills: 2 Ordered:07-Jun-2014 Karyn Hunter Start : 24-Apr-2013 End : 07-Jun-2014 Discontinued MULTIVITAMIN (PO Chew Tab) 1 tab qd for 0 days Refills: 0 Ordered:18-Jan-2014 Libby Rodriguez LPN End : 18-Jan-2014 Discontinued Comments:This order discontinued per [facility]. NAPROSYN, 500MG (Oral Tablet) 1 Tablet bid for 0 days Quantity: 30 {Tablet} Refills: 0 Ordered:07-Jan-2013 Kathie Sen DO Start : 07-Jan-2013 End : 07-Jan-2013 Discontinued Comments:with food OCUFLOX, 0.3% (Ophthalmic Solution) 1-2 Metric Drop Metric Drop q2-4h x 2 days, then 1-2 dropss qid x 5dasy for 0 days Quantity: 1 {Bottle} Refills: 0 Ordered:07-Jun-2014 Karyn Hunter Start : 19-Oct-2013 End : 07-Jun-2014 Discontinued PredniSONE 10 MG Oral Tablet 1 Tablet bid x 3 days, daily x 3 days, then 1/2 x3 day for 0 days Quantity: 12 {Tablet} Refills: 0 Ordered:16-May-2016 Raza PALOMOMyla Start : 20-Apr-2016 End : 16-May-2016 Discontinued Comments:with food Xyzal 5 MG Oral Tablet 1 Tablet qd for 90 days Quantity: 90 {Tablet} Refills: 3 Ordered:27-Feb-2017 Libby Rodriguez LPN Start : 27-Feb-2017 End : 12-Mar-2018 Discontinued Comments:This order discontinued per [facility]. ZITHROMAX Z-BOWEN, 250MG (Oral Tablet) 1 (one) Tablet tad for 0 days Quantity: 1 {Package} Refills: 0 Ordered:07-Jun-2014 Karyn Hunter Start : 22-Feb-2014 End : 07-Jun-2014 Discontinued ZYRTEC, 10MG (Oral Tablet) 1 tab Tablet qd for 0 days Quantity: 90 {Tablet} Refills: 3 Ordered:09-Jun-2007 Fay Adamson Start : 09-Jun-2007 End : 09-Jun-2007 Discontinued Allergies and Adverse Reactions Name Dates Details Codeine/Codeine Derivatives (Allergy) Status: Active Gabapentin *ANTICONVULSANTS* (Allergy) Status: Active Sulfa Drugs (Allergy) Status: Active Vicodin *ANALGESICS - OPIOID* (Allergy) Status: Active Past Medical History Name Dates Details Abdominal pain, acute, right upper quadrant (R10.11, 789.01) Status: Resolved as of 09-Nov-2009 Abnormal urine (R82.90, 791.9) Status: Inactive as of 17-Aug-2015 ACCIDENTAL FALL, SAME LEVEL, IN SPORTS (E886.0) Status: Resolved as of 04-Jun-2011 Acute epigastric pain (R10.13, 789.06) Status: Inactive as of 07-Nov-2016 Allergic rhinitis (J30.9, 477.9) Status: Inactive as of 07-Nov-2016 Allergy (T78.40XA, 995.3) Status: Inactive as of 07-Nov-2016 Anemia NEC (285.8) Status: Resolved as of 19-Jun-2010 Anemia, unspecified (D64.9, 285.9) Status: Resolved as of 08-Feb-2009 BMI 50.0-59.9, adult (Z68.43, V85.43) Status: Inactive as of 27-Feb-2017 Breast lump (N63.0, 611.72) Status: Resolved as of 19-Jun-2010 Candidiasis, mouth (B37.0, 112.0) Status: Resolved as of 04-Jun-2011 Cervical radiculopathy (M54.12, 723.4) Status: Inactive as of 17-Aug-2015 Chest pain (R07.9, 786.59) Status: Resolved as of 08-Feb-2009 Chronic pain of left ankle (M25.572, 719.47) Status: Inactive as of 17-Aug-2015 Cough (R05, 786.2) Status: Resolved as of 07-Jun-2014 ear pain- ear was normal- likely ETD- he will try his nasal spray Status: Inactive as of 14-Dec-2008 Edema extremities (R60.0, 782.3) Status: Inactive as of 07-Nov-2016 elevated crp- get followup flp and crp-heart and then stop lipitor and recheck flp and crp in 3 mos Status: Inactive as of 14-Dec-2008 Encounter for screening for malignant neoplasm of rectum (Z12.12, V76.41) Status: Inactive as of 19-Jun-2010 Epigastric pain (R10.13, 789.06) Status: Resolved as of 19-Jun-2010 Epilepsy, unspecified, not intractable, without status epilepticus (G40.909, 345.90) Comments: no seizure since 7 y/o - currently on no meds-- as child due to hi fevers Status: Resolved as of 17-Aug-2015 Eustachian tube dysfunction (H69.80, 381.81) Comments: he has nasal spray will use let know not better Status: Inactive as of 18-Jan-2014 flushing- could be rosacea or avapro- pt doesnt want to intervene was just curious- will follow Status: Inactive as of 14-Dec-2008 full note dictated Status: Inactive as of 14-Dec-2008 Headache (R51, 784.0) Status: Resolved as of 08-Feb-2009 Hypertension (I10, 401.9) Status: Inactive as of 17-Aug-2015 Itching (L29.9, 698.9) Status: Inactive as of 17-Aug-2015 Knee pain, left (M25.562, 719.46) Status: Inactive as of 17-Aug-2015 Low back pain without sciatica, unspecified back pain laterality (724.2) Status: Inactive as of 07-Nov-2016 Medication side effects present, initial encounter (T50.905A, 995.20) Comments: from wt loss and too much bp med?-- will try reduction of avapro like past htat worked -- keep in mind pt has h/o vertigo Status: Inactive as of 07-Nov-2016 Muscle spasm of back (M62.830, 724.8) Status: Inactive as of 07-Nov-2016 myalgias/ neck pain- could be from lipitor - try off and see how does Status: Inactive as of 14-Dec-2008 Neck pain (M54.2, 723.1) Status: Inactive as of 07-Nov-2016 Need for prophylactic vaccination and inoculation against influenza (Z23, V04.81) Status: Inactive as of 04-Jun-2011 onychomycosis Status: Inactive as of 14-Dec-2008 Other specified viral infection, in conditions classified elsewhere and of unspecified site (B97.89, 079.89) 04-May-2011 Status: Resolved as of 04-Jun-2011 Pain in thoracic spine (M54.6, 724.1) Status: Inactive as of 17-Aug-2015 Paresthesia (R20.2, 782.0) Status: Inactive as of 17-Aug-2015 Paresthesia (R20.2, 782.0) Status: Inactive as of 17-Aug-2015 Paresthesia and pain of both upper extremities (R20.2, 782.0) Status: Inactive as of 17-Aug-2015 Pharyngitis, acute (J02.9, 462) Status: Resolved as of 07-Jan-2013 Plantar wart, left foot (B07.0, 078.12) Status: Inactive as of 07-Nov-2016 Proteinuria (R80.9, 791.0) Status: Resolved as of 08-Feb-2009 Red eye (H57.89, 379.93) Comments: add artificial tears Status: Inactive as of 07-Nov-2016 SCREENING FOR HYPERLIPIDEMIA (Z13.220, V77.91) Status: Inactive as of 07-Jan-2013 Serous conjunctivitis, unspecified laterality (H10.239, 372.01) Status: Inactive as of 18-Jan-2014 Shoulder Pain (Renamed from Pain in shoulder) (M25.519, 719.41) Status: Inactive as of 17-Aug-2015 Swelling of Limb (Renamed from Limb swelling) (M79.89, 729.81) Status: Inactive as of 17-Aug-2015 THROAT PAIN (784.1) Status: Resolved as of 08-Feb-2009 Unspecified Diagnosis Status: Inactive as of 07-Jan-2013 Unspecified Diagnosis Status: Inactive as of 07-Jan-2013 varicose veins Status: Inactive as of 17-Aug-2015 Wheezing (R06.2, 786.07) Status: Resolved as of 07-Jun-2014 Procedures Procedure Dates Details laser sx varicose veins left leg 2010 Completed Date Value Details 18-Jan-2018 Urgent Care Visit Report Result: Comments: See Note; NOTES: [facility] [address] [place] [address] OFFICE VISIT Date of Service: 01/18/18 MR#: [id number] Acct: [id number] Name: WILLA FREITAS Cristian Rep # : [id number] : 1960 Provider: STARR Payne Age/Sex: 57/M Location: [facility] Status: Signed Intake Vital Signs01/18/18 Body Mass Index (BMI) 41.8 01/18/18 Height 5 ft 5 in 01/18/18 Weight: 251 lb Intake Visit Reasons: POSS FLU Chief Complaint: cough, low grade fever Allergies codeine Allergy (Verified 01/18/18 08:14) Hives gabapentin [From Neurontin] Allergy (Verified 01/18/18 08:14) Hives Sulfa (Sulfonamide Antibiotics) Allergy (Verified 01/18/18 08:14) Rash Medications Duloxetine Hcl [Cymbalta] 60 mg PO DAILY 04/20/16 [History Confirmed 01/18/18] Folic Acid 1 mg PO BIDCM [History Confirmed 01/18/18] Irbesartan [Avapro] 150 mg PO DAILY 04/20/16 [History Confirmed 01/18/18] Levocetirizine Dihydrochloride [Xyzal] 5 mg PO DAILY 04/20/16 [History Confirmed 01/18/18] Metfo rmin HCl [Metformin HCl ER] 1,000 mg PO DAILY 04/20/16 [History Confirmed 01/18/18] Methotrexate 17.5 mg PO Q7D 04/20/16 [History Confirmed 01/18/18] Pantoprazole Sodium [Protonix] 40 mg PO DAILY [History Confirmed 01/18/18] cholecalciferol (vitamin D3) 1,000 unit capsule 1,000 unit PO ONCE 03/29/17 [History Confirmed 01/18/18] etanercept 50 mg/mL (0.98 mL) subcutaneous syringe 50 mg SC Q7D 0 03/29/17 [History Confirmed 01/18/18] PFS Medical History Diabetes (Acute) Hay fever (Acute) Seizures (Acute) HTN (hypertension) (Chronic) Social H istory Smoking Status: Never smoker alcohol intake: current alcohol intake frequency: holidays/special occasions only Alcohol type: wine HPI HPI Chief Complaint: cough, low grade fever Details: ED Mamie MARSHALL, is a 57 NIDDM M who presents to the office today for 6 day history of persistend cough, non productive and chest congestion. He has noted a low grade fever with some sweating at night the last 2 nights (99.9). He states last night his skin on his forearrms was a little red and itchy, but he is not taking any medications. He denies SOB or chest pain. + laryngitis at times. 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 ROS Const Constitutional: Positive for fever(s) (low grade 99.9), night sweats (x 2 nights) and excessive sweating (at nght x 2 nights); no body ache, chills, fatig ue, change in appetite, weakness, frequent falls or headache(s) Eyes Eyes: No visual disturbances, light sensitivity, eye pain or change in vision ENT ENT: Positive for sore throat (minimal with intermi ttent laryngitis); no ear pain, ear discharge, hearing loss, dizziness/vertigo, nasal discharge, difficulty swallowing, neck pain or headache(s) Resp Respiratory: Positive for cough and chest congestion ; no hemoptysis, shortness of breath or wheezing Cardio Cardiology: Positive for excessive sweating (at [facility] x 2 nights) and other (h/o HTN onmedication); no shortness of breath, irregular heart rhythm, lightheadedness, chest pain at rest, chest pain with exertion, generalized swelling, orthopnea or palpitations Gastro GI: No difficulty swallowing, abdominal pain, bloating, change in bowel habits, bonny rrhea, blood in stool, Black,tarry stools, nausea/dyspepsia or vomiting Genitourinary Male: No painful urination, urinary frequency, difficulty urinating or blood in urine Musc Musculoskeletal: No chino int pain, back pain, numbness, tingling or neck pain Skin Skin: No lesions, itching (arms last 2 days) or rash Neuro Neurology: No visual disturbances, numbness, tingling, abnormal speech, confusion, un steady gait/balance, dizziness, weakness, frequent falls, loss of vision or headache(s) Psych Psychiatric: No change in appetite, No confusion, No anxiety, No depression Endo Endocrine: Positive for exc essive sweating (at [facility] x 2 nights); no fatigue, cold intolerance, flushing, heat intolerance or increased thirst/drinking Aller/Imm Allergy/Immunologic: No wheezing, itchy eyes (arms last 2 days), claude d intolerance, seasonal allergy symptoms or hives Du/Lymp Hematologic/Lymphatic: No easy bruising Exam Const General: cooperative, no acute distress Orientation: alert, oriented x3 [facility] Head: juanita l to inspection, normocephalic Ears: hearing grossly normal bilaterally, external ears normal, TM normal on the right, TM normal on the left, no periauricular adenopathy, EAC's normal Nose: nasal mucous membranes and turbinates normal, no nasal discharge Face and sinus: normal facial exam, sinuses nontender Mouth: oral mucosae normal, oropharynx normal, tongue normal Teeth and gingiva: dentition juanita l, gingiva normal Throat: posterior oropharynx normal Eyes General: appearance normal, both eyes and all related structures Eyelids: eyelids normal Conjunctivae: conjunctivae normal Sclera: sclerae norm al Pupils: PERRL EOM: EOM intact bilaterally Direct ophthalmoscopy: normal light reflex, no photophobia Neck Neck: normal visual inspection, no meningeal signs, supple, no lymphadenopathy Neck mass: No Thyroid: thyroid normal Carotids: no bruits Lymphatic: no lymphadenopathy noted Chest Chest palpation AND inspection: normal inspection of the chest Resp Effort AND Inspection: normal respiratory effort , able to speak in complete sentences, symmetric chest movement, no audible wheezes, no cough, not labored, no respiratory distress Auscultation: Bilateral: Clear to Auscultation Cardio Rate: regular ra te Rhythm: regular rhythm Heart Sounds: S1 normal, S2 normal Musc Musculoskeletal: No joint tenderness or joint redness Skin General: no rashes or lesions noted, other (no erythema at this time on arms noted) Neuro General: alert, oriented x3, moves all extremities Cognition: normal cognition Speech: speech normal Gait: normal gait Motor: muscle tone normal throughout Extrem General: normal to inspect ion Psych Appearance: grossly normal, well kempt Mental Status: mental status grossly normal Affect: normal affect Speech and Movement: speech and movement normal Attitude: cooperative Thought Process: normal Thought Content: normal Assessment AND Plan Problems 1. URI with cough and congestion J06.9 2. Bronchitis J40 Plan Jose Juanck called to Richard Benites DM F/u with PCP if symptoms persis t Rec: ED if high fever, SOB, Symptoms become acute. Coding Level of Care Code Off vis,est,level 3 Diagnoses URI with cough and congestion J06.9 Bronchitis J40 01/18/18 0835 <Electronicall y signed by Landy CLEMENTS> Date Landy CLEMENTS Cosigner Signature: Date (if applicable) CC: 01-Nov-2017 PT D/C Summary (1) Result: Comments: See Note; NOTES: [facility] [address] [place] [address] Fax REHABILITATION SERVICES DISCHAR GE SUMMARY MR#: [id number] Acct: [id number] Name: WILLA FREITAS R Rep #: [id number] : 1960 57 From: Farrukh Mcleod DPT, OCS, CSCS Referring DrLaina: Cari Coles DO Status: REG RCR Insurance: [facility] SELF PAY INSURANCE HP - PT D/C Summary It has been my pleasure to treat ED R ZENA under orders from Cari Coles, for the diagnosis of BPPV for a total of 1 visit(s). Dis charge Date: 10/30/17 Please see the following information for a summary of their discharge status. - Overall Improvement % Improvement: 100 - Goals Goal 1:: Abolish dizzyness Goal Progress: Goal Me t Goal 2:: Patient feel 100% back to normal. Goal Progress: Goal Met - Plan Plan: D/C - D/C Information Discharge Comments: Pt has called adn I spoke to him on the phone. He is 100% better since posit ional treatment and does not need to return. Not avoiding any activities. Will f/u with doctor next week. If there are questions or concerns regarding this patient's physical therapy, please feel free t o call me at [phone]. Thank you for the referral of this patient. Sincerely, Farrukh Mcleod DPT, OC <Electronically signed by Farrukh Mcleod DPT, JULIO, CSCS> 11/01/17 0645 CC: Cari Coles DO EBG Signed 24-Oct-2017 Inital Evaluation (1) - PT Result: Comments: See Note; NOTES: [facility] [address] [place] [address] Rd. [address] [place], [place] [address] Fax REHABILITATION SERVICES INITIAL EVALUATION MR#: [id number] Acct: [id number] Name: WILLA FREITAS R Rep #: [id number] : 1960 57 From: Farrukh Mcleod DPT, OCS, CSCS Referring DrLaina: Cari Coles DO Status: REG RCR Insurance: [facility] SELF PAY INSURANCE Patient's Visit Information ED Cristian FREITAS is a 57 year old M referred to Physical Therapy by Cari Coles with a diagnosis of BPPV. Date of Evaluation: Physical Therapist: Farrukh Mcleod DPT, OC - Visit Plan Frequency: 1x/Week Duration: 2-6 Plan: weekly as needed for positional treatments - Subjective Subjective: Got vertigo about a month ago. Woke up one morning out of bed and started spinning and almost fell down. Lasted a few seconds. Bending over or getting up can still cause it for a few seconds. Lying down at night with L ear causes spi nning. Rolling to L causes it also. Happening a couple times per day. In between these sessions, no problems, sometimes has SCHERER more pronounced than normal but balance is good and no other goofy feelings . Sleep is good. Gets dizzy at work but it doesn't stop him. 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 Mary: no dizzyness. Basic aDLs are OK - Objective c/s AROM limited but not painful. L HD + up torsional 10 sec. - R HD. Balance is good. walks well and trasnfers easily and I. - Balance Scores Functional Gait Assessment Score: 30 % Disability: 0 - Goals Goal 1:: Abolish dizzyness Goal Time Frame: 2-4 Weeks Goa l 2:: Patient feel 100% back to normal. Goal Time Frame: 2-4 Weeks - Rehabilitation Potential Physical Therapy Diagnosis: L posterior BPPV Rehabilitation Potential: Good - Anticipated Interventions Pa tient/Client Instruction: Educate patient on: Condition, Plan of Care For the Purpose of:: To increase tolerance to activity/condition/position Comment: positional treatments and ex as needed. For the P urpose of:: To increase tolerance to activity/condition/position, To improve ability of physical actions for home/community/work/leisure Thank you for the opportunity to evaluate your patient. For Medicare and Medicare HMO plans, please review the plan of care and approve it. It will need to be FAXED BACK to us at [phone] for Medicare purposes. Please let me know if there are questions or concerns regarding this plan of care. Physician Signature: Date: <Electronically signed by Farrukh Mcleod DPT, OCS, CSCS> 0932 CC: Cari Coles DO EBG Signed For Medicare only, by signing this I certify the plan of care. Physicians Signature Date 25-Sep-2017 Foot min 3 Views Result: Comments: See Note; NOTES: [facility] Imaging Services [address] [place] [address] Foot min 3 Views MR#: [id number] Acct: [id number] Name: ZENAWILLA Rep #: [id number] : 1960 M 57 From: Davin Cárdenas MD PCP: Cari Coles DO Status: REG CLI Study: Foot min 3 Views Date of Exam: 09/25/17 Exam# [id number] Ordering Dr: Cari Coles DO STUDY: X-RAY - RIGHT FOOT CLINICAL: Male, 57 years old. Lateral foot trauma, pain. TECHNIQUE: 3 view(s) of the foot. COMPARISON: None. FINDINGS: Osteopenia. Mild DJD of the interphal angeal joints, mild to moderate of the 1st digit metatarsophalangeal joint, mild hallux valgus of the 1st digit. No fracture. Preserved arch. Unremarkable soft tissues. Prominent peripheral vascular dinorah cifications. RAD/Foot min 3 Views IMPRESSION: No evidence of acute injury. Electronically Signed: Davin Cárdenas, at 18:04 EDT Tel , Service support , CC: Cari Coles DO Java Software Engineer: Signed 25-Sep-2017 Knee 4 or More Views Result: Comments: See Note; NOTES: [facility] Imaging Services [address] [place] [address] Knee 4 or More Views MR#: [id number] Acct: [id number] Name: WILLA FREITAS Rep #: [id number] : 1960 M 57 From: Davin Cárdenas MD PCP: Cari Coles DO Status: REG CLI Study: Knee 4 or More Views Date of Exam: 09/25/17 Exam# [id number] Ordering Dr: Cari Coles DO STUDY: X-RAY - RIGHT KNEE REASON FOR EXAM: Male, 57 years old. Pain, no injury. TECHNIQUE: 4 view(s) of the knee. COMPARISON: None. FINDINGS: Osteopenia. No effusion. Periart icular soft tissues unremarkable. Mild joint margin osteophytic lipping of the patellofemoral articulation, in particular the lateral facets. No significant degenerative features of the medial or latera l compartment of the knee. 0096 RAD/Knee 4 or More Views IMPRESSION: Mild DJD of the patellofemoral joint. Electronically Signed: Davin Cárdenas, 2 at 18:05 EDT Tel , Service support , CC: Cari Coles DO Java Software Engineer: Signed 04-Jun-2017 Foot min 3 Views Result: Comments: See Note; NOTES: [facility] Imaging Services [address] [place] [address] Foot min 3 Views MR#: [id number] Acct: [id number] Name: ZENA,ED R Rep #: [id number] : 1960 M 56 From: Anuel Harrison MD PCP: Cari Coles DO Status: REG CLI Study: Foot min 3 Views Date of Exam: 06/04/17 Exam# [id number] Ordering Dr: Ruchi Valenzuela STUDY: X-RAY - RIGHT FOOT CLINICAL: Male, 56 years old. Right foot pain. TECHNIQUE: 3 view(s) of the foot. COMPARISON: None. FINDINGS: Normal talus, calcaneus, and tarsal bones. Normal vis ualized subtalar, talonavicular, calcaneocuboid, tarsal and tarsometatarsal articulations. Normal metatarsi. There is degenerative arthrosis of the metatarsophalangeal joint of the hallux . There is a n 8 mm subchondral cyst of the head of the first metatarsal. Normal tibial and fibular sesamoid bones. Normal interphalangeal joint of the great toe. Normal phalanges of the great toe. Normal second th rough fifth metatarsophalangeal joints. Normal interphalangeal joints and phalanges of the lesser toes. The soft tissue structures are unremarkable. 0121 RAD/Foot min 3 Views IMPRESSION: No acute abnormality. Prominent degenerative changes of the first metatarsophalangeal joint. Electronically Signed: Anuel Harrison MD at 23:13 EDT Te l [phone], Service support , CC: Cari Coles DO; Ruchi Valenzuela DPM Java Software Engineer: Signed 04-Jun-2017 Foot min 3 Views Result: Comments: See Note; NOTES: [facility] Imaging Services [address] [place] [address] Foot min 3 Views MR#: [id number] Acct: [id number] Name: WILLA FREITAS R Rep #: [id number] : 1960 M 56 From: Anuel Harrison MD PCP: Cari Coles DO Status: REG CLI Study: Foot min 3 Views Date of Exam: 06/04/17 Exam# [id number] Ordering Dr: Ruchi Valenzuela STUDY: X-RAY - LEFT FOOT C LINICAL: Male, 56 years old. Pain. TECHNIQUE: 3 view(s) of the foot. COMPARISON: None. FINDINGS: Normal talus, calcaneus, and tarsal bones. Normal visualized subt alar, talonavicular, calcaneocuboid, tarsal and tarsometatarsal articulations. Normal metatarsi. Normal metatarsophalangeal joint of the great toe. Normal tibial and fibular sesamoid bones. Normal int erphalangeal joint of the great toe. Normal phalanges of the great toe. Normal second through fifth metatarsophalangeal joints. Normal interphalangeal joints and phalanges of the lesser toes. The soft tissue structures are unremarkable. There is no demonstrated fracture. RAD/Foot min 3 Views IMPRESSION: Normal x-ray examination of the foot. E lectronically Signed: Anuel Harrison MD at 23:14 EDT , Service support , CC: Cari Valenzuela DP Java Software Engineer: Signed 29-Mar-2017 Urgent Care Visit Report Result: Comments: See Note; NOTES: [place] [address] OFFICE VISIT Date of Service: 03/29/17 MR#: [id number] Acct: [id number] Name: ZENAWILLA R Rep # : [id number] : 1960 Provider: Antonio CLEMENTS Age/Sex: 56/M Location: [facility] Status: Signed Intake Vital Signs03/29/17 Height 5 ft 5 in 03/29/17 Weight: 251 lb 03/29/17 Body Mass Index (BMI) 41 .8 03/29/17 Blood Pressure 136/84 03/29/17 Blood Pressure Location Lt radial 03/29/17 Blood Pressure Position Sitting Intake Visit Reasons: Sore throat Is patient in pain?: Yes Allergies codeine Richie rgy (Verified 03/29/17 17:02) Hives gabapentin [From Neurontin] Allergy (Verified 03/29/17 17:02) Hives Sulfa (Sulfonamide Antibiotics) Allergy (Verified 03/29/17 17:02) Rash Medications Duloxetine H cl [Cymbalta] 60 mg PO DAILY 04/20/16 [History Confirmed 03/29/17] Folic Acid 1 mg PO BIDCM 04/20/16 [History Confirmed 03/29/17] Irbesartan [Avapro] 150 mg PO DAILY 04/20/16 [History Confirmed 03/29/17 ] Levocetirizine Dihydrochloride [Xyzal] 5 mg PO DAILY 04/20/16 [History Confirmed 03/29/17] Metformin HCl [Metformin HCl ER] 1,000 mg PO DAILY 04/20/16 [History Confirmed 03/29/17] Methotrexate 17.5 mg PO Q7D 04/20/16 [History Confirmed 03/29/17] Pantoprazole Sodium [Protonix] 40 mg PO DAILY 04/20/16 [History Confirmed 03/29/17] cholecalciferol (vitamin D3) 1,000 unit capsule 1,000 unit PO ONCE 03/29 [History Confirmed 03/29/17] etanercept 50 mg/mL (0.98 mL) subcutaneous syringe 50 mg SC Q7D 03/29/17 [History Confirmed 03/29/17] PFSH Medical History Diabetes (Acute) Hay fever (Acute) Seizure s (Acute) HTN (hypertension) (Chronic) Social History Smoking Status: Never smoker alcohol intake: current alcohol intake frequency: holidays/special occasions only Alcohol type: wine HPI HPI De tails: ED ZENA, is a 56 M who presents to the office today for sore throat for the past 2 days. Patient 4 days ago started on Tamiflu for suspected flu B and states that his symptoms from the flu hav e nearly completely resolved. He noticed pain under his tongue and his neck starting yesterday. He denies fever, chills, sweats. No nausea, vomiting, diarrhea. No other associated symptoms or alleviatin g/aggravating factors. ROS Const Constitutional: No fever(s), headache(s), anorexia, chills or abnormal sleep pattern ENT ENT: Positive for post nasal drip and sore throat; no headache(s) Resp Respira tory: No shortness of breath Cardio Cardiology: No irregular heart rhythm or palpitations Gastro GI: No nausea/dyspepsia Neuro Neurology: No headache(s) or behavioral changes Psych Psychiatric: No behav ioral changes, No abnormal sleep pattern Exam Const General: cooperative, healthy appearing HENMT Head: normal to inspection Ears: hearing grossly normal bilaterally, TM's normal bilaterally Nose: ext ernal nose normal, nasal discharge clear Mouth: oral mucosae normal Throat: abnormal tonsil bilaterally Resp Effort AND Inspection: normal respiratory effort Auscultation: Bilateral: Clear to Auscultati on Cardio Palpation: normal PMI Rate: regular rate Rhythm: regular rhythm Neuro General: CN's II-XI intact bilaterally Psych Appearance: grossly normal Mental Status: mental status grossly normal Asse ssment AND Plan 1. Sore throat J02.9 Status Acute Plan Encouraged to get plenty of rest, drink lots of clear liquids, and use Tylenol or Ibuprofen (unless contraindicated) for fever and comfort. Patient also educated on other symptomatic management techniques. To be seen in 7-10 days if no improvement; sooner if worsening of symptoms. Patient advised of potential red flags and when appropriate report to the ED. Patient verbalized understanding all of the above. Coding Level of Care Code Off vis,new,level 3 Diagnoses Sore throat J02.9 03/29/17 1747 <Electronically signed by Antonio CLEMENTS> Date Antonio CLEMENTS Cosigner Signature: Date (if applicable) CC: 08-May-2016 Operative Report Result: Comments: See Note; NOTES: [facility] Medical Records Department [address] [place] [address] Operative Report MR#: [id number] Acct: [id number] Name: WILLA FREITAS Rep #: [id number] : 1960 55 From: Long Colmenares MD PCP: Cari Coles DO Status: DEP CLI DATE OF SERVICE: PROCEDURE PERFORMED: Esophagogastroduodenoscopy with biopsy. PREOPERATIVE DIAGNOSES: The pat ient with reflux symptoms with epigastric pain. POSTOPERATIVE DIAGNOSES: Hiatal hernia noted in the distal esophagus, no evidence of Yao's mucosa, some erythema of the gastric mucosa. No active pep tic ulcer disease. MEDICATIONS GIVEN: Anesthesia via MAC. INSTRUMENT: Olympus upper endoscope. DESCRIPTION OF PROCEDURE: Procedure as follows, informed consent was obtained prior to the procedure. Th e patient was brought to procedure room, placed left shoulder down and given the above medications, anesthesia via the MAC. The endoscope was passed under direct visualization down the esophagus. The pr oximal and mid esophagus appeared normal. The Z-line was intact at about 37 cm from the incisors. There was a hiatal hernia noted in the distal esophagus. The stomach was easily insufflated. There were no ulcerations. There was some erythema up to the gastric mucosa. The pylorus was intubated. The bulb of the duodenum was normal. The sweep of the duodenum was normal. Scope was withdrawn back in the [facility]. Retroflexion was performed. A view of the cardia is well seen. There are no abnormalities in the cardia. Several biopsies of gastric antrum and body were taken for pathology. The stomach was deco mpressed. The endoscope was also withdrawn. The patient tolerated the procedure well. IMPRESSION: A 55-year-old with acid reflux symptoms with a hiatal hernia, no evidence of Yao's mucosa. PLAN: C ontinue PPI. The patient needs to make some lifestyle modifications. MD Lashonda Bentley C: Cari Coles DO T: SETH JOB: [id number] 05/08/16 1409 <Electronically signed by Long Colmenares MD> Date Long Young Signature (If Indicated): Date CC: Cari Dolan O; Long Colmenares Date Dictated: 04/26/16830 Date Transcribed: 04/26/16830 Java Software Engineer: Signed 18-Apr-2016 PT D/C Summary (1) Result: Comments: See Note; NOTES: [facility] [address] [place], [place] [address] Fax REHABILITATION SERVICES DEMARCOAR GE SUMMARY MR#: [id number] Acct: [id number] Name: WILLA FREITAS Rep #: [id number] : 1960 55 From: Farrukh Mcleod DPT, OCS, CSCS Referring Dr.: Cari Coles DO Status: REG RCR Insurance: [facility] HP - PT D/C Summary It has been my pleasure to treat ED R ZENA under orders from Cari Coles, for the diagnosis of cervical rediculopathy for a total of 7 visit(s). Dis charge Date: 04/17/16 Please see the following information for a summary of their discharge status. - Subjective Subjective: Pain level is way down. Has had L sided pain over the last week but today mid back is sore. But it is only 2-3/10. Much better than used to be. Sleep is OK. Better than he was 6 months ago. Thinking about doing massage 1x/month for neck. HEP: c/s ext, UT stretch, will get bal l to roll on neck also. - Pain UT B Pain Intensity (Out of 10): 2 - Overall Improvement % Improvement: 80 - Objective Objective/Function: 50 ext no pain. 60 L rotation with slight pinch on L c1/2. 70 R rotation. Posture much improved. Pt very happy with outcome. Only slight tenderness in soft tissue of neck on L>R - Goals Goal 1:: Posture and ROM improved to at least 30 ext and 60 B rot ation and scapula ROM to full. Goal Progress: Progressing Goal 2:: Pain in neck at 2/10 at worst and intermittent. Goal Progress: Goal Met Goal 3:: Feel back to baseline pain as prior to 5 months ago. G oal Progress: Goal Met Goal 4:: I approp HEP to maintain improvements in posture and pain. Goal Progress: Goal Met - Plan Plan: D/C to HEP - D/C Information Discharge Comments: Pt will continuie c/s R OM and postural focus with stretching at home. Feeling 80% better. May benefit from prescription for monthly massages. Should be sent back for PT if condition worsens again. If there are questions or co ncerns regarding this patient's physical therapy, please feel free to call me at [phone]. Thank you for the referral of this patient. Sincerely, Farrukh Mcleod DPT, OC <Electronically sign ed by Farrukh Mcleod DPT, JULIO, CSCS> 04/18/16 0737 CC: Cari Coles DO EBG Signed 30-Mar-2016 Inital Evaluation (1) - PT Result: Comments: See Note; NOTES: [facility] [address] [place] [address]. [address] [place], [place] [address] Fax REHABILITATION SERVICES INITIAL EVALUATION MR#: [id number] Acct: [id number] Name: WILLA FREITAS Rep #: [id number] : 1960 55 From: Farrukh Mcleod DPT, JULIO, CSCS Referring Dr.: Cari Coles DO Status: REG RCR Insurance: [facility] Patient's Visit Information ED Cristian FREITAS is a 55 year old M referred to Physical Therapy by Cari Coles with a diagnosis of cervical rediculopathy. Date of Evaluation: Physical Therapist: Farrukh Mcleod DPT, OC - Visit Plan Frequency: 3x /Week Duration: 4-6 Weeks Plan: 3x/week for 2-4 weeks for US to B UT thermal, STM to B UT and subocc, stretch B UT, PROM to c /s and postural focus. monitor HEP of c/s retraction for need to progress. - Subjective Subjective: Years of neck issues. Thought it was c6-7 vertebraes. Saw a surgeon Karime who did a catscan and w as told that vertebraes are pushing agains sac, not spinal cord. That was a year ago. Has hand numbness but has CTS in both hands. Saw Dr. Coles yesterday as B UT were tight like a rubber band and hurt s all the time. Been that way for years. Worse in last 4-5 months without reason. Sitting and crocheting and on TV/computeralot. Mornings are better. Sleeps well for 7-8 hours, readjusting half way due to neck pain. Uses a Cpap. 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 No SCHERER and no other arm numbness. - Pain UT B Pain Intensity (Out of 10): 8 Pain Intensity Range: 3, 10 - Objec tive Forward head and elevated scap posture. Tightness present in UT with constant contraction and hard to relax. Tender to palpation in B UT, ceervical paraspinals and subocc moderately. Poor scapular depression B even with VC. Full UE AROM but painful with shoulder flexion at end range. Cervical AROM is limited maximally. Very poor retraction, extension to 15 degrees, Rotations to 48 B rot and SB to 17 degrees with tightness contralaterally. Passively I can get him slightly more ext and rotation, he is protective of these motions. reflexes are 1/3 in bi and tri. Sensation is WNL to gross light basim ch in UE. Strength in arms is 4/5 without asymmetries. Repeated retraction seems to centralize pain today. Slight positive L cervical compression test. - Goals Goal 1:: Posture and ROM improved to at l east 30 ext and 60 B rotation and scapula ROM to full. Goal 2:: Pain in neck at 2/10 at worst and intermittent. Goal Time Frame: 4-6 Weeks Goal 3:: Feel back to baseline pain as prior to 5 months ago. G oal Time Frame: 4-6 Weeks Goal 4:: I approp HEP to maintain improvements in posture and pain. Goal Time Frame: 4-6 Weeks - Rehabilitation Potential Physical Therapy Diagnosis: cervical pain with soft t isuue irritation in neck. Rehabilitation Potential: Fair - Anticipated Interventions Patient/Client Instruction: Educate patient on: Condition, Plan of Care For the Purpose of:: To decrease pain, To in crease ROM, To improve ability of physical actions for home/community/work/leisure Therapeutic Exercise to Include: Strength training, Postural training, Yulissa Exercises Comment: muscle pumping for c /s and UT For the Purpose of:: To decrease pain Manual Therapy Techniques to Include: Passive ROM, Soft tissue mobilization For the Purpose of:: To decrease pain, To increase ROM, To improve nutrient de livery to tissue IF ES: Yes - if needed. Thermo therapy (hot pack): Yes For the Purpose of:: To decrease pain Thank you for the opportunity to evaluate your patient. For Medicare and Medicare HMO p lans, please review the plan of care and approve it. It will need to be FAXED BACK to us at [phone] for Medicare purposes. Please let me know if there are questions or concerns regarding this suki n of care. Physician Signature: Date: <Electronically signed by Farrukh Mcleod DPT, OCS, CSCS> 03/30/16 0653 CC: Cari Coles DO EBG Signed For Medicare only, by signing this I certify the plan of care. Physicians Signature Date 17-Aug-2015 Spirometry (05104) Result: 17-Aug-2015 ELECTROCARDIOGRAM, COMPLETE (ECG) (60638) Comments: sinus jermaine - no acute chg Result: [MEASUREMENTS ANALYSIS] Date of Test: 08/17/2015 10:09:13; Heart Rate: 56; MS Interval: 160; QRS: 108; QT Interval: 380; Corrected QT Interval (QTc): 373; P Wave [place]: 41; QRS Wave [place]: 38; T Wave [place] : 32; Blood Pressure: 132/82 [ECG DIAGNOSTIC STATEMENTS] Date of Test: 08/17/2015 10:09:13; Summary: Sinus Bradycardia -Prominent R(V1) -nonspecific. BORDERLINE 13-Apr-2015 NCS and/or EMG Patient Result: Comments: See Note; NOTES: [facility] Pulmonary Services/Neurology [address] [place] [address] NCS and/or EMG Patient MR#: [id number] Acct: [id number] Name: JOEY MCGRATH ED R Rep #: [id number] : 1960 54 From: Quinn Wells Referring Dr: Kathie Sen DO Status: REG CLI Ordering Dr: Kathie Sen DO Date: 04/13/15 Location: PSN Sex: M C DATE OF SERVICE: REFERRING PHYSICIAN: Kathie Sen D.O. HISTORY: The patient is a 54-year-old gentleman with numbness and pain in both hands. ELECTRODIAGNOSTIC FINDINGS: Prolonged median sensory and motor latenc ies bilaterally, worse on the right. Mild slowing of the right ulnar wrist sensory latency. Normal ulnar motor studies. No radial sensory slowing is noted. Normal EMG in areas tested both arms witho ut membrane irritability or motor unit changes. IMPRESSION: 1. Bilateral carpal tunnel syndrome, moderate on the right, mild on the left. Consider wrist tendonitis, wrist and thumb degenerative guadalupe ges, repetitive trauma, underlying ganglion cyst and other causes of median nerve entrapment at the wrist. These findings correlate well with his main clinical symptoms. 2. 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 No evidence of cubital tunnel syndrome is noted today. Wrist tendonitis and degenerative changes can also cause an ulnar wrist sensory entrapment as is likely occurring here. 3. No evidence of polyneuropathy, cervical radiculopathy or brachial plexus lesion. He will follow up with Dr. Sen for further review. Thank you for this referral. Quinn Wells MD T: NTS JOB: [id number] 04/13/15 2257 <Electronically signed by Quinn Wells > Date Quinn Wells CC: Kathie Sen DO; QUINN Dolan ate Dictated: 04/13/15833 Date Transcribed: 04/13/15833 Java Software Engineer: Signed 12-Feb-2015 Sleep Study Report Result: Comments: See Note; NOTES: [facility] SLEEP DISORDER [facility] [address] [place] [address] Polysomnography with NCPAP MR#: [id number] Acct: [id number] Name: WILLA FREITAS Rep #: [id number] : 1960 54 From: Danis Verdugo MD PCP: Kathie Sen DO Status: REG CLI Ordering Dr.: Fredi Perez MD Date: 02/09/15 Sex: M C DATE OF SERVICE: 02/09/2015 SCORI NG RULES: Respiratory events were acquired and scored in accordance with the Recommended Standards and Specifications as outlined in the AASM Manual for the Scoring of Sleep and Associated Events ( recent version). Please note that a reference to [facility] AHI in this report is consistent with the current Hypopnea definition according to Medicare Criteria and an [facility] AHI reference is consistent with the current Hypopnea definition according to the AASM criteria and is recognized by [facility] as the RDI. PROCEDURE: The study was attended continuously by a certified technician specialist. Monitored parameters includ ed left and right EOG, frontal, central, and occipital EEG, mental and submental EMG, left and right anterior tibialis EMG, signal ECG waveform, snore, continuous airflow with PAP device flow signal, chest and abdominal plethysmography efforts, oxygen saturation with heart rate, and body positioning with video monitoring. REFERRING PHYSICIAN: Dr. Perez. SLEEP HISTORY: This is a CPAP titratio n study performed on this 54-year-old male with a body mass index of 45.8 and an [place] sleepiness scale score of 0. The patient has a history of snoring and excessive daytime somnolence, including f alling asleep while driving. There was a diagnostic polysomnogram in 2002 with subsequent titrations in 2002 and 2005. His last CPAP setting was between 8 and 10 cm according to the records. MASK US ED DURING THE STUDY: There is a medium ____ gel nasal mask with heated humidity. SLEEP SUMMARY: Lights off occurred at 9:21 p.m. and lights on at 5:00 a.m. for a total recording time of 459 minutes and a total sleep time of 314 minutes. Calculated sleep efficiency was 68.4%. There were one REM periods with REM latency of 286 minutes. All sleep stages are identified during this study. RESPIRA TORY DATA: The total AHI was 6.9 and the total RDI was 16.6. The REM AHI was 0, the non-REM AHI was 7.3. Supine RDI was 24.2, the patient was supine for 3 hours and 25 minutes of sleep. Oxygen satur ation dropped below 88% for 0.4 minutes of total sleep time. The minimum oxygen saturation was 85% and the maximum was 100%, mean was 95.7%. Pulse rate ranged from 52-61 beats per minute with a mean o f 61.4 beats per minute. No arrhythmias were identified during this study. Leg movement index was mild at 15.5 events per hour. Nasal CPAP was initiated at 10 cm and titrated to 16 cm. He continued to have frequent arousals and desaturations, therefore, BiPAP was initiated. At a BiPAP setting of 18 and 14, which was tested for 18 minutes of REM sleep and 1 hour and 40 minutes of non-REM sleep, the total sleep time AHI was 1, the supine AHI was 0 and the REM AHI was 0. Minimum oxygen saturation at this setting was 91%. IMPRESSION: Obstructive sleep apnea. RECOMMENDATIONS: Nasal BiPAP w ith the above recommended mask with heated humidity with a setting of 18 and 14 and Bilevel controls as follows: Ti Max 1.0, min 0.3, cycle high, trigger medium and Easy-Breathe on. Danis merida MD T: NTS JOB: [id number] CC: Danis Verdugo MD 1503 1503 02/12/15 1012 <Electronically signed by Danis Verdugo MD> Date Danis Verdugo MD Co-signature (if applicable) Date Signed 12-Jan-2015 Carotid Duplex Ultrasound Result: Comments: See Note; NOTES: [facility] Cardiovascular Services [address] [place] [address] Carotid Duplex Ultrasound 01/05/15 1537 MR#: [id number] Acct: [id number] Name: WILLA FREITAS Rep #: [id number] : 1960 54 From: Seven Allison MD Attending Dr: Kathie Sen DO Status: REG CLI Ordering Dr: Kathie Sen DO Date: 01/05/15 Location: CVS Sex: M C Admi tted: Rt. Velocities/BP Lt. Velocities/BP Prox CCA 151/42 cm/sec. Prox CCA 127/35 cm/sec. Mid CCA 113/35 cm/sec. Mid CCA 112/40 cm/sec. Dist CCA 117/38 cm/sec. Dist CCA 99/35 cm/sec. Prox ICA 8 2/32 cm/sec. Prox ICA 90/35 cm/sec. Mid ICA 58/24 cm/sec. Mid ICA 74/32 cm/sec. Dist ICA 94/39 cm/sec. Dist ICA 61/29 cm/sec. Rt. ICA/CCA = 0.83. Lt. ICA/CCA = 0.81. Prox ECA 162/29 cm/sec. Prox ECA 157/29 cm/sec. Rt. Vert. 38/17 cm/sec. Lt. Vert. 38/15 cm/sec. Right Extracranial There is no significant atherosclerotic plaque noted in the right common carotid artery. There is no significant a therosclerotic plaque noted in the right internal carotid artery. There is no significant atherosclerotic plaque noted in the right external carotid artery. Antegrade flow is noted in the right verte bral artery. Left Extracranial There is no significant atherosclerotic plaque noted in the left common carotid artery. There is no significant atherosclerotic plaque noted in the left internal rosado tid artery. There is no significant atherosclerotic plaque noted in the left external carotid artery. Antegrade flow is noted in the left vertebral artery. Procedure Carotid Duplex 41904. Exam per formed in department. Interpretation Summary Mild (<50%) stenosis right extracranial internal carotid. Mild (<50%) stenosis left extracranial internal carotid. Flow within the verte bral arteries is antegrade bilaterally. Ordering Physician: Kathie Sen Referring Physician: Kathie Winter D.O. Performed By: Shari Salinas 01/12/15 08 Date Seven Allison MD CC: Kathie Sen DO Date Dictated: 01/05/15 1537 Date Transcribed: 01/12/15802 Java Software Engineer: Signed 20-Oct-2014 Shoulder min 2 Views Result: Comments: See Note; NOTES: [facility] Imaging Services [address] [place] [address] Radiology Report MR#: [id number] Acct: [id number] Name: WILLA FREITAS R Rep #: [id number] : 1960 54 From: Chaim Bergeron MD PCP: Kathie Sen DO Status: REG CLI Study: Shoulder min 2 Views Date of Exam: 10/20/14 Exam# [id number] Ordering Dr: Anthony Teran DO STUDY: X-RAY - LEFT SHOULDER REASON FOR EXAM: Male, 54 years old. Pain. No injury TECHNIQUE: 3 view(s) of the shoulder. COMPARISON: None. FINDINGS: Normal glenohumeral a rticulation. There is mild arthrosis of the acromioclavicular joint. Normal acromion. Normal humeral head and visualized proximal humerus. The soft tissue structures are unremarkable. Normal visu alized pulmonary apex. IMPRESSION: Mild arthrosis of the acromioclavicular joint Electronically Signed: Chaim Bergeron MD, FACR at 20:20 EDT T el [phone], Service support [phone], 0045 RAD/Shoulder min 2 Views IMPRESSION: Mild arthrosis of the acromioclavicular joint Electronically Signed: Marcos Bergeron MD, FACR at 20:20 EDT , Service support [phone], CC: Kathie Sen DO; Anthony Teran Java Software Engineer: Signed 05-Jul-2014 Emergency Department Summary Result: Comments: See Note; NOTES: [facility] Medical Records Department [address] [place] [address] Emergency Department Summary 07/05/14 1141 MR#: [id number] Acct: [id number] Name: WILLA FREITAS R Rep #: [id number] : 1960 53 From: Arsh Macias MD PCP: Kathie Sen DO Status: REG ER History of Present Illness Chief Complaint: Abd Pain Informant: Patient - A bdominal Pain/Flank Pain Onset: Today, Yesterday - about 3 hrs Context: Gradual Onset Timing: Waxes and wanes Quality: Dull, Sharp Location: RUQ Current Severity: Mild Maximum Severity: Severe W orsened by: Food - started about 1 hr after fatty breakfast Relieved by: Nothing - Nausea/Vomiting/Emesis Onset: Today Quality: Nausea. Negative for: Vomiting - Diarrhea/Melena/Hematochezia GI S ymptom: Negative for: Diarrhea, Melena, Hematochezia Associated Symptoms: Negative for: Dysuria, Hematuria Prior similar symptoms: No Recent Illness/Hospitalization: No - Past Medical History (1) Rheumatoid arthritis Status: Chronic (2) HTN (hypertension) Status: Chronic (3) Hiatal hernia Status: Chronic Past Medical History - Allergies and Home Meds Allergies/Adverse Reactions: Al lergies codeine Allergy (Verified 07/05/14 10:40) Hives gabapentin [From Neurontin] Allergy (Verified 07/05/14 10:40) Hives Sulfa (Sulfonamide Antibiotics) Allergy (Verified 07/05/14 10:40) Rash Surgical History: - - left knee Smoking Status: Never smoker Review of Systems All systems negative except as indicated Gastrointestinal: Reports: Abdominal pain, Nausea Physical Exam Vital S igns/Narrative: Vital Signs Temp Pulse Resp BP 07/05/14 10:38 100.4 F 89 16 162/93 General: Well nourished, Well developed Head: Normocephalic, Atraumatic Eyes: Perrl, EOMI ENT: Moist muc ous membranes, No rhinorrhea Neck: Supple, Nontender Cardiovascular: Regular rate, Regular rhythm, No murmurs Respiratory: No distress, CTA bilaterally, Chest nontender Abdomen: Soft, Nondistended, Normal bowel sounds, Tender - RUQ. Negative for: Guarding, Rebound tenderness Back: Nontender, Normal Inspection. Negative for: CVA tenderness Extremities: Nontender, No edema Skin: Normal color, No rash Neurological: Alert, Oriented x3, Cranial nerves II-XII grossly intact, Normal Strength, Normal Sensation Psychological: Normal affect Diagnostic/Tx/Re-eval US: RUQ - negative, no stones, neg ative sonographic hardin Impressions Gallbladder Ultrasound 07/05/14 11:49 IMPRESSION: Normal gallbladder ultrasound examination. Fatty infiltration liver. Nonvisualization of pancreas due to o verlying bowel gas. Electronically Signed: Ankit Mcmahon DO at 12:53 EDT , Service support [phone], 07/05/14 11:49 Gallbladder [US] Stat La boratory Results 07/05/14 07/05/14 Range/Units 10:50 11:10 WBC 5.4 (4.4- 11.0) K/mm3 RBC 4.56 L (4.6-6.2) M/mm3 Hgb 13.7 (13.0-16.5) g/dl Hct 43.4 (40-54) % MCV 95.2 H (80-94) fL MCH 30.0 (27.0-32.0) pg MCHC 31.6 L (32-36) g/gl RDW 14.2 (11.6-14.6) % RDW Differential 48.8 H (35.1-43.9) fl Plt Count 231 (150-450) K/mm3 MPV 9.8 (6.2-12.0) fl Immature Gran % (Auto) 0.200 (0 .0-0.9) % Neut % (Auto) 56.0 (47-70) % Lymph % (Auto) 31.6 (19-41) % Castro % (Auto) 7.4 (0-10) % Eos % (Auto) 4.6 (0-5) % Baso % (Auto) 0.2 (0-1) % Absolute Neuts (auto) 3.0 (2.0-7.7) X10 Ab solute Lymphs (auto) 1.70 (0.83-4.51) X10 Total Counted Not Reportable Sodium 142 (136-145) mmol/L Potassium 4.0 (3.5-5.1) mmol/L Chloride 105 (98-107) mmol/L Carbon Dioxide 30.0 (21.0-32.0) mm ol/l Anion Gap 7 (5-15) BUN 24 H (7-18) mg/dL Creatinine 1.0 (0.8-1.3) mg/dL Estim Creat Clear Calc 72.60 ml/min Est GFR (MDRD) Af Amer 99 (>60) mL/min Est GFR (MDRD) Non-Af 82 (&amp ;#62;60) mL/min BUN/Creatinine Ratio 24.0 H (10-20) RATIO Glucose 99 (70-110) mg/dL Calcium 8.6 (8.5-10.1) mg/dL Urine Color Yellow (Yellow) Urine Clarity Clear (Clear) Urine pH 7.0 (5.0 - 8 .0) Ur Specific [place] 1.010 (1.002-1.030) Urine Protein Negative (Negative) mg/dl Urine Glucose (UA) Normal (Normal) mg/dl Urine Ketones Negative (Negative) mg/dl Urine Occult Blood Negative (Negative) /ul Urine Nitrite Negative (Negative) Urine Bilirubin 6 H (Negative) mg/dL Urine Urobilinogen 1 H (Normal) mg/dl Ur Leukocyte Esterase 25 H (Negative) /ul Urine RBC 0-5 SEEN (0-5) /hpf Urine WBC 0 SEEN (0-5) /hpf Ur Squamous Epith Cells 0 SEEN (0-5) /hpf Urine Bacteria RARE (None Seen) /hpf Urine Mucus 0 SEEN (<or=2+) /hpf - Medical Decision Making Patient w as treated with Toradol, did not significant changes his comfort. Workup shows that he has no gallstones, it is certainly possible that his discomfort is biliary colic, however there is no evidence of acalculous cholecystitis at this time. He is placed on a PPI in addition to when necessary pain medication and advised follow-up with his doctor, if he continues to have symptoms he may need a HIDA s can, EGD, or other testing. He is comfortable with this plan. Disposition: Home ED Disposition - Plan for ED Patient: Disposition: Home Chief Complaint: Abd Pain Diagnosis: Abdominal pain Ins tructions: ED Abdominal Pain, Unknown Cause, (Male) Prescriptions: Hydrocodone Bitart/Apap 5-325 [[place] 5/325] 1 - 2 tablet PO Q4H PRN PRN #12 tablet PRN Reason: Pain Omeprazole [Prilosec] 20 mg PO DAILY #30 capsule Referrals: Kathie Sen DO [Primary Care Provider] - 3-5 Days What to do if you have Problems For any increased pain, shortness of breath, bleeding, nausea or vomiting, chest pa in, or any unexpected problems, contact your doctor. Call [facility] ([phone]) or report to the closest Emergency Room. Call 911 if necessary. 07/05/14 1502 <Electronically sig roscoe by Arsh Macias MD> Date Arsh Macias MD Cosigner Signature (If Indicated): Date CC: Kathie Sen DO 05-Jul-2014 Gallbladder Result: Comments: See Note; NOTES: [facility] Imaging Services [address] [place] [address] Ultrasound Report MR#: [id number] Acct: [id number] Name: WILLA FREITAS Rep #: [id number] : 1960 M 53 From: Ja Saenz DO PCP: Kathie Sen DO Status: REG ER Study: Gallbladder Date of Exam: 07/05/14 Exam# [id number] Ordering Dr: Arsh Macias MD STUDY: ULTRASOUND GAL LBLADDER REASON FOR VISIT: Male, 53 years old. Abdominal pain TECHNIQUE: Ultrasound evaluation of the gallbladder was performed with real-time and static tripp- scale imaging. TECHNICAL QUALITY: Aracely dove. Examination limited due to a combination of factors including obesity and bowel gas. COMPARISON: September 29, 2009 FINDINGS: Liver: Liver measures 13.6 cm in maximal dimension. There is mild fatty infiltration demonstrated. No abnormal solid or cystic mass is confirmed. Gallbladder: Normal distended gallbladder. The gallbladder wall measures 2.8 mm. There is a negative sonographic Hardin's sign. There is no pericholecystic fluid. There are no gallstones. Common Bile Duct (C.B.D.): The common bile duct measures 2.8 mm. Pancreas is obscured by g as. Right kidney measures 12.4 x 4.6 x 6.9 cm. Renal cortex measures 1.7 cm. There is no hydronephrosis or renal mass confirmed. IMPRESSION: Normal gallbladder u ltrasound examination. Fatty infiltration liver. Nonvisualization of pancreas due to overlying bowel gas. Electronically Signed: Ankit Mcmahon DO at 12:53 EDT , Servic e support [phone], CC: ARSH MACIAS MD; Kathie Sen DO Java Software Engineer: Signed 20-Jan-2014 Shoulder min 2 Views Result: Comments: See Note; NOTES: [facility] Imaging Services [address] [place] [address] Radiology Report MR#: [id number] Acct: [id number] Name: ZENAWILLA R Rep #: [id number] : 1960 M 53 From: Arsh Mi MD PCP: Kathie Sen DO Status: REG CLI Study: Shoulder min 2 Views Date of Exam: 01/20/14 Exam# [id number] Ordering Dr: Kathie Sen DO STUDY: X-RAY - L EFT SHOULDER REASON FOR EXAM: Male, 53 years old. Pain TECHNIQUE: 4 view(s) of the shoulder. COMPARISON: None. FINDINGS: Normal glenohumeral articulation. N ormal acromioclavicular joint. Normal acromion. Normal humeral head and visualized proximal humerus. The soft tissue structures are unremarkable. There is no demonstrated fracture. IMPRESSION: No fracture. Joint spaces are well-preserved. Electronically Signed: Arsh Mi MD at 17:11 EST , Service support [phone], RAD/Shoulder min 2 Views IMPRESSION: No fracture. Joint spaces are well-preserved. Electronically Signed: Arsh Mi MD at 17:11 EST Tel , Service support [phone], CC: Kathie Sen DO Java Software Engineer: Signed 23-Sep-2013 NCS and/or EMG Patient Result: Comments: See Note; NOTES: [facility] Pulmonary Services/Neurology [address] [place] [address] NCS and/or EMG Patient MR#: [id number] Acct: [id number] Name: ZENAWILLA R Rep #: [id number] : 1960 53 From: Atif Samuels MD Referring Dr: Kathie Sen DO Status: REG CLI Ordering Dr: Kathie Sen DO Date: 09/16/13 Location: PSN Sex: M C The patient presents for electrodiagnostic testing of the lower extremities. He has chief complaint of pain and numbness in both lower limbs. ELECTRODIAGNOSTIC FINDINGS: On nerve conduction study, the common peroneal nerve demonstrated normal distal latency, amplitude, and conduction velocity bilaterally. Normal tibial and motor responses. Normal peroneal and tibial F waves. H reflex is borderline prolonged bilaterally . Sensory responses are within normal limits, as are plantar responses. On needle EMG, all muscles tested in the lower limbs showed no evidence of denervation with normal motor unit action potential s. ELECTRODIAGNOSTIC IMPRESSION: This is a normal electrodiagnostic study of the lower extremities. There is no electrodiagnostic evidence for peripheral neuropathy or lumbosacral radiculopathy. If there are any questions in regards to this exam, please do not hesitate to contact me. Sincerely, 09/23/13 1104 <Electronically signed by Atif Samuels MD> Date Atif Samuels MD CC: Atif Samuels MD; Kathie Sen DO Date Dictated: 09/16/13 1138 Date Transcribed: 09/16/13 1244 Java Software Engineer: SCHERER Signed 15-May-2013 Spine Cervical (Routine) Result: Comments: See Note; NOTES: [facility] Imaging Services [address] [place] [address] MRI Report MR#: [id number] Acct: [id number] Name: WILLA FREITAS Rep #: [id number] : 1960 52 From: Chaim Bergeron MD PCP: Kathie Sen DO Status: REG CLI Study: Spine Cervical (Routine) Date of Exam: 05/15/13 Exam# [id number] Ordering Dr: Kathie Sen DO STUDY: MRI CERVICA L SPINE WITHOUT CONTRAST REASON FOR EXAM: Male, 52 years old. Neck pain TECHNIQUE: Standardized fat and water weighted pulse sequences were obtained in the sagittal and axial planes. COMPARISON: None FINDINGS: Normal foramen magnum and brainstem-cervical cord junction. Normal craniovertebral junction. Normal anterior atlantoaxial articulation. Normal od ontoid process. There is straightening of the normal cervical lordosis. Normal vertebral bodies and posterior osseous elements. C2-3: Normal endplates. Normal disc height, signal and morphology. N ormal central canal and intervertebral neural foramina. C3-4: Normal endplates. Normal disc height, signal and morphology. Normal central canal and intervertebral neural foramina. C4-5: Normal endp lates. Normal disc height, signal and morphology. Normal central canal and intervertebral neural foramina. C5-6: There is degenerative disease with disc space narrowing and disc desiccation. There i s a moderate annular bulge. There is effacement of the ventral aspect of the thecal sac. There is mild bilateral foraminal stenosis C6-7: There is degenerative disease with disc space narrowing and disc desiccation. There is endplate spondylosis. There is an annular bulge with effacement of the ventral aspect of the thecal sac. There is no significant spinal canal stenosis. There is mild left f oraminal stenosis C7-T1: Normal endplates. Normal disc height, signal and morphology. Normal central canal and intervertebral neural foramina. Normal cervical cord. Normal visualized soft tissue structures. IMPRESSION: Degenerative disc disease at C5-6 and C6-7 with annular bulges and mild foraminal stenosis as outlined above. Loss of normal lordosis. Electronically Signed: Chaim Bergeron M.D. at 9:11 EDT , Service support [phone], CC: Kathie Sen DO Java Software Engineer: Signed 15-May-2013 Spine Lumbar (Routine) Result: Comments: See Note; NOTES: [facility] Imaging Services [address] [place] [address] MRI Report MR#: [id number] Acct: [id number] Name: WILLA FREITAS Cristian Rep #: [id number] : 1960 M 52 From: Chaim Bergeron MD PCP: Kathie Sen DO Status: REG CLI Study: Spine Lumbar (Routine) Date of Exam: 05/15/13 Exam# [id number] Ordering Dr: Kathie Sen DO STUDY: MRI LUMBAR SP INE WITHOUT CONTRAST REASON FOR EXAM: Male, 52 years old. Radiculopathy. Right leg pain and numbness. Low back pain. TECHNIQUE: Standardized fat and water weighted pulse sequences were obtained in the sagittal and axial planes. COMPARISON: X-rays of the lumbar spine on 04-02-12 FINDINGS: T12-L1: Normal endplates. Normal disc height, hydration and morpho logy. Normal bilateral facet joints. Normal central canal and bilateral lateral recesses. Normal bilateral intervertebral neural foramina. There is an exaggerated lumbar lordosis. There is no substa ntial scoliosis. Normal conus medullaris that terminates at the T12-L1 level L1-2: Normal endplates. Normal disc height, hydration and morphology. Normal bilateral facet joints. Normal central canal and bilateral lateral recesses. Normal bilateral intervertebral neural foramina. L2-3: Normal endplates. Normal disc height, hydration and morphology. Normal bilateral facet joints. Normal central canal and bilateral lateral recesses. Normal bilateral intervertebral neural foramina. L3-4: Normal endplates. Normal disc height, hydration and morphology. Normal bilateral facet joints. Normal neema tral canal and bilateral lateral recesses. Normal bilateral intervertebral neural foramina. L4-5: Normal endplates. There is a moderate annular bulge. Normal bilateral facet joints. Normal central c anal and bilateral lateral recesses. Normal bilateral intervertebral neural foramina. L5-S1: Normal endplates. There is grade 1 degenerative spondylolisthesis There is an annular bulge. There is sev ere bilateral facet arthrosis. Normal central canal and bilateral lateral recesses. There is bilateral foraminal stenosis with impingement of the exiting L5 nerve roots. Normal visualized sacral ala . Normal visualized paraspinous soft tissue structures. IMPRESSION: L4-5 moderate annular bulge. L5-S1 grade 1 degenerative spondylolisthesis with annular bul ge and severe bilateral facet arthrosis. Bilateral foraminal stenosis with impingement of the L5 nerve roots Electronically Signed: Chaim Bergeron M.D. at 9:14 EDT , Service support [phone], CC: Kathie Sen DO Java Software Engineer: Signed 11-Feb-2013 PT Discharge Summary Result: Comments: See Note; NOTES: [facility] [address] [place] [address] Fax REHABILITATION SERVICES DISCHARGE SUMMARY MR#: [id number] Acct: [id number] Name: WILLA FREITAS Rep #: [id number] : 1960 52 From: Shannen Anne Referring Dr.: Kathie Sen DO Status: REG RCR Eval Date: Discharge Da te: DATE OF SERVICE: 02/09/2013 This patient was referred to physical therapy by Dr. Kathie Sen with a diagnosis of cervical, shoulder and lumbar diagnoses. He has been seen in our clinic times a total of 10 visits. His physical therapy has mainly consisted of aquatic therapy to increase his strength, increase his range of motion, decrease his pain and improve his functional mobility. U mallory presentation to physical therapy today, he reports approximately 55% improvement overall since starting physical therapy. He reports that he did have a fall on the rastafari steps last night and is a little sore today. He reports that he just got stoved up and was able to work today without any more pain than usual. He rates his neck pain 3/10, left shoulder pain 3/10 and low back/hip pain 6/ 10. Bilateral upper extremity dural signs are negative today. Bilateral upper extremity strength is grossly 4/5 with manual muscle testing and his cervical range of motion is relatively unchanged si nce the initial evaluation. He has pain with range of motion and manual muscle testing of the left upper extremity, but it has improved. He is now independent with a water exercise program. All phys ical therapy goals have been met, although he continues to have significant symptoms and complaints of pain. I recommended follow up with Dr. Sen. He plans to continue his water exercises independe ntly as a [employer] [facility] member and is considering our therapeutic fitness program. I am discharging him from formal physical therapy at this time. He was agreeable to discharge. Shannen Ann oss, PT C C: Kathie Sen DO T: NTS JOB: [id number] <Electronically signed by Shannen Anne > 02/11/13 0952 CC: * Signed 14-Jan-2013 Inital Evaluation - PT Result: Comments: See Note; NOTES: [facility] [address] [place] [address] Fax REHABILITATION SERVICES INITIAL EVALUATION MR#: [id number] Acct: [id number] Name: WILLA FREITAS Rep #: [id number] : 1960 52 From: Shannen Anne Referring Dr.: Kathie Sen DO Status: REG R [facility] Eval Date: DATE OF SERVICE: 01/12/2013 SUBJECTIVE: This patient presents to physical therapy with complaint of multiple joint pain, but chief complaint of left shoulder pain. H e reports that he has always had shoulder pain, but it increased approximately 3 months ago for no apparent reason and it is worsening. He reports intermittent left shoulder pain ranging in intensity from 0/10 to 10/10. He also has intermittent cervical pain ranging 0/10 to 10/10 and left upper extremity intermittent pain, numbness and tingling ranging 0/10 to 7/10. He also reports chronic low back pain with right hip pain and right lower extremity symptoms to his foot. He has 3 jobs. 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 He reports that life in crease his pain. He has increased left shoulder pain first thing in the morning and the pain is disturbing his sleep. He reports that use of a pain patch and heat helps his symptoms. The patient de nies prior left shoulder treatments. He reports a history of cervical physical therapy, chiropractic and epidural steroid injection treatments. He denies ringing in the ears, nausea or difficulty sw allowing. He denies falls and he denies dropping things. 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 IMAGING: Cervical MRI 2008, lumbar x-ray approximately 2012 and right hip x-rays pending . He reports that he has degeneration of his spine on imaging. He reports that a pelvic x-ray did not show any hip problems. This patient reports that he used to be an avid bike rider and hopes to start riding his stationary bike again next week. He denies any unexplained weight loss or having been in any accidents. He states he has been gaining weight. OBJECTIVE: This patient ambulates i ndependently into physical therapy without any assistive devices, but decreased cristina. His sitting posture is poor. His standing posture is poor. He has a protruded head, but no torticollis. Active correction of his sitting posture decreases his complaint of left shoulder pain. 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 Bilateral upper extremity strength is 5/5 with manual muscle testing excep t for left shoulder flexion and abduction graded 4/5. Bilateral upper extremity range of motion is within functional limits, but he has pain in all planes with left shoulder range of motion testing and limited external rotation to 70 degrees and internal rotation to 60 degrees. Bilateral upper extremity light touch sensation is intact and symmetrical. Bilateral upper extremity reflexes are 1/ 2. He has a negative right upper extremity dural sign and positive left upper extremity dural sign. Cervical movement loss: Protrusion - - nil, flexion -- nil, retraction -- major, extension -- major, bilateral side bending -- moderate, bilateral rotation -- moderate. The patient has complaint of neck pain with cervical range of motion testing in all planes, but cervical range of motion testing does not provoke left shoulder pain. He has tenderness with palpation of the left anterior and lateral shoulder region. ASSESSMENT: This patient is a 52-year-old male with complaint of multiple j oint with chief complaint of left shoulder pain that started many years ago, but increased significantly approximately 3 months ago for no apparent reason and is worsening. He presents with decrease d cervical pain-free range of motion in all planes, decreased left shoulder pain free range of motion, decreased left shoulder strength and poor posture. GOALS: 1. Decrease complaint of neck pain. 2. Decrease complaint of left upper extremity symptoms. 3. Improve functional pain free left upper extremity range of motion. 4. Improve functional left upper extremity strength. 5. The patient will be independent with home exercise program for continued improvement once formal physical therapy concludes. PLAN: We plan to see this patient for a trial of aquatic therapy 3 times a week times x 3-4 weeks for posture correction, cervical range of motion and left upper extremity range of motion, stretching and strengthening to help meet the above goals. We may use walking in the water as a warm up, but we will hold lumbar and lower extremity exercise initially focusing on his posture, cervical and shoulder region. He was agreeable with this plan of care. He had physical therapy rebecca martines this year for his back and lower extremity symptoms. We will explore further evaluation of his lumbar and lower extremity regions after we see how he tolerates a few visits for his posture and lef t upper extremity. Shannen Anne, PT T: NTS JOB: [id number] <Electronically signed by Shannen Anne > 01/14/13 1542 CC: Signed For Medicare on y, by signing this I certify the plan of care. Physicians Signature Date Family History Unknown Family Member Name Dates Details Father Comments: Septic, ETOH, Hole intestine, of unknown cause Status: Active Mother Comments: DM, HTN, OA of hip, CABG X 5 Status: Active Social History Name Dates Details Caffeine Use Comments: 7 QD Status: Active No Drug Use Status: Active Non Drinker/No Alcohol Use Status: Active Non Smoker/No Tobacco Use Comments: 10/24/10, 05/04/11 Status: Active Tobacco use: Never smoker. Status: Active Smoking Status Name Dates Details Never smoker Vital Signs Date Test Result Details [id number] Pulse 81 /min Comments: Pattern: Regular Respiration Rate 18 /min Comments: Pattern: Unlabored O2 SAT 98 % Comments: Room air BP Systolic 122 mm[Hg] Comments: Patient Position: Sitting; Cuff Location: Left Arm; Cuff Size: Large BP Diastolic 82 mm[Hg] Comments: Patient Position: Sitting; Cuff Location: Left Arm; Cuff Size: Large Weight 267.125 lb Height 65 in Body Mass Index Calculated 44.45 kg/m2 Body Surface Area Calculated 2.24 m2 :11 Pulse 88 /min Comments: Pattern: Regular Respiration Rate 18 /min Comments: Pattern: Unlabored O2 SAT 97 % Comments: Room air BP Systolic 124 mm[Hg] Comments: Patient Position: Sitting; Cuff Location: Left Arm; Cuff Size: Large BP Diastolic 78 mm[Hg] Comments: Patient Position: Sitting; Cuff Location: Left Arm; Cuff Size: Large Weight 267 lb Height 65 in Body Mass Index Calculated 44.43 kg/m2 Body Surface Area Calculated 2.24 m2 :06 Temperature 97.5 f Comments: Method: Temporal Pulse 87 /min Comments: Pattern: Regular Respiration Rate 17 /min Comments: Pattern: Unlabored O2 SAT 97 % Comments: Room air BP Systolic 130 mm[Hg] Comments: Patient Position: Sitting; Cuff Location: Left Arm; Cuff Size: Standard BP Diastolic 84 mm[Hg] Comments: Patient Position: Sitting; Cuff Location: Left Arm; Cuff Size: Standard Weight 270.1875 lb Height 65 in Body Mass Index Calculated 44.96 kg/m2 Body Surface Area Calculated 2.25 m2 :19 Pulse 73 /min Comments: Pattern: Regular Respiration Rate 18 /min Comments: Pattern: Unlabored O2 SAT 96 % Comments: Room air BP Systolic 128 mm[Hg] Comments: Patient Position: Sitting; Cuff Location: Left Arm; Cuff Size: Large BP Diastolic 82 mm[Hg] Comments: Patient Position: Sitting; Cuff Location: Left Arm; Cuff Size: Large Weight 270.1875 lb Height 65 in Body Mass Index Calculated 44.96 kg/m2 Body Surface Area Calculated 2.25 m2 :59 Pulse 76 /min Comments: Pattern: Regular Respiration Rate 18 /min Comments: Pattern: Unlabored O2 SAT 96 % Comments: Room air BP Systolic 122 mm[Hg] Comments: Patient Position: Sitting; Cuff Location: Left Arm; Cuff Size: Large BP Diastolic 80 mm[Hg] Comments: Patient Position: Sitting; Cuff Location: Left Arm; Cuff Size: Large Weight 276.375 lb Height 65 in Body Mass Index Calculated 45.99 kg/m2 Body Surface Area Calculated 2.27 m2 :39 Pulse 77 /min Comments: Pattern: Regular Respiration Rate 18 /min Comments: Pattern: Unlabored O2 SAT 97 % Comments: Room air BP Systolic 128 mm[Hg] Comments: Patient Position: Sitting; Cuff Location: Left Arm; Cuff Size: Large BP Diastolic 84 mm[Hg] Comments: Patient Position: Sitting; Cuff Location: Left Arm; Cuff Size: Large Weight 274.375 lb Height 65 in Body Mass Index Calculated 45.66 kg/m2 Body Surface Area Calculated 2.26 m2 :29 Temperature 97.5 f Comments: Method: Temporal Pulse 78 /min Comments: Pattern: Regular Respiration Rate 16 /min Comments: Pattern: Unlabored O2 SAT 95 % Comments: Room air BP Systolic 118 mm[Hg] Comments: Patient Position: Sitting; Cuff Location: Left Arm; Cuff Size: Large BP Diastolic 78 mm[Hg] Comments: Patient Position: Sitting; Cuff Location: Left Arm; Cuff Size: Large Weight 274.375 lb Height 65 in Body Mass Index Calculated 45.66 kg/m2 Body Surface Area Calculated 2.26 m2 :12 Temperature 97.9 f Comments: Method: Temporal Pulse 79 /min Comments: Pattern: Regular Respiration Rate 16 /min Comments: Pattern: Unlabored O2 SAT 95 % Comments: Room air BP Systolic 126 mm[Hg] Comments: Patient Position: Sitting; Cuff Location: Left Arm; Cuff Size: Standard BP Diastolic 78 mm[Hg] Comments: Patient Position: Sitting; Cuff Location: Left Arm; Cuff Size: Standard Weight 270 lb Height 65 in Body Mass Index Calculated 44.93 kg/m2 Body Surface Area Calculated 2.25 m2 :06 Pulse 66 /min Comments: Pattern: Regular Respiration Rate 16 /min Comments: Pattern: Unlabored BP Systolic 122 mm[Hg] Comments: Patient Position: Sitting; Cuff Location: Left Arm; Cuff Size: Standard BP Diastolic 78 mm[Hg] Comments: Patient Position: Sitting; Cuff Location: Left Arm; Cuff Size: Standard Weight 255.125 lb Height 65 in Body Mass Index Calculated 42.45 kg/m2 Body Surface Area Calculated 2.19 m2 :00 Pulse 63 /min Comments: Pattern: Regular Respiration Rate 18 /min Comments: Pattern: Unlabored O2 SAT 97 % Comments: Room air BP Systolic 118 mm[Hg] Comments: Patient Position: Sitting; Cuff Location: Left Arm; Cuff Size: Large BP Diastolic 70 mm[Hg] Comments: Patient Position: Sitting; Cuff Location: Left Arm; Cuff Size: Large Weight 266.125 lb Height 65 in Body Mass Index Calculated 44.29 kg/m2 Body Surface Area Calculated 2.23 m2 :27 Pulse 81 /min Comments: Pattern: Regular Respiration Rate 18 /min Comments: Pattern: Unlabored O2 SAT 96 % Comments: Room air BP Systolic 118 mm[Hg] Comments: Patient Position: Sitting; Cuff Location: Left Arm; Cuff Size: Large BP Diastolic 82 mm[Hg] Comments: Patient Position: Sitting; Cuff Location: Left Arm; Cuff Size: Large Weight 266.125 lb Height 65 in Body Mass Index Calculated 44.29 kg/m2 Body Surface Area Calculated 2.23 m2 :33 Pulse 72 /min Comments: Pattern: Regular Respiration Rate 16 /min Comments: Pattern: Unlabored O2 SAT 98 % Comments: Room air BP Systolic 118 mm[Hg] Comments: Patient Position: Sitting; Cuff Location: Left Arm; Cuff Size: Large BP Diastolic 78 mm[Hg] Comments: Patient Position: Sitting; Cuff Location: Left Arm; Cuff Size: Large Weight 276.5 lb Height 65 in Body Mass Index Calculated 46.01 kg/m2 Body Surface Area Calculated 2.27 m2 :08 Pulse 81 /min Comments: Pattern: Regular Respiration Rate 18 /min Comments: Pattern: Unlabored O2 SAT 95 % Comments: Room air BP Systolic 128 mm[Hg] Comments: Patient Position: Sitting; Cuff Location: Left Arm; Cuff Size: Large BP Diastolic 80 mm[Hg] Comments: Patient Position: Sitting; Cuff Location: Left Arm; Cuff Size: Large Weight 276.5 lb Height 65 in Body Mass Index Calculated 46.01 kg/m2 Body Surface Area Calculated 2.27 m2 :35 Temperature 97.6 f Pulse 88 /min Comments: Pattern: Regular Respiration Rate 16 /min Comments: Pattern: Unlabored O2 SAT 96 % Comments: Room air BP Systolic 120 mm[Hg] Comments: Patient Position: Sitting; Cuff Location: Left Arm; Cuff Size: Standard BP Diastolic 80 mm[Hg] Comments: Patient Position: Sitting; Cuff Location: Left Arm; Cuff Size: Standard Weight 272.125 lb Height 65 in Body Mass Index Calculated 45.28 kg/m2 Body Surface Area Calculated 2.25 m2 :36 Pulse 76 /min Comments: Pattern: Regular Respiration Rate 18 /min Comments: Pattern: Unlabored O2 SAT 97 % Comments: Room air BP Systolic 122 mm[Hg] Comments: Patient Position: Sitting; Cuff Location: Left Arm; Cuff Size: Large BP Diastolic 78 mm[Hg] Comments: Patient Position: Sitting; Cuff Location: Left Arm; Cuff Size: Large Weight 272.125 lb Height 65 in Body Mass Index Calculated 45.28 kg/m2 Body Surface Area Calculated 2.25 m2 :31 Pulse 88 /min Comments: Pattern: Regular Respiration Rate 18 /min Comments: Pattern: Unlabored O2 SAT 98 % Comments: Room air BP Systolic 144 mm[Hg] Comments: Patient Position: Sitting; Cuff Location: Left Arm; Cuff Size: Large BP Diastolic 82 mm[Hg] Comments: Patient Position: Sitting; Cuff Location: Left Arm; Cuff Size: Large Weight 270.375 lb Height 65 in Body Mass Index Calculated 44.99 kg/m2 Body Surface Area Calculated 2.25 m2 :55 Pulse 71 /min Comments: Pattern: Regular Respiration Rate 18 /min Comments: Pattern: Unlabored O2 SAT 98 % Comments: Room air BP Systolic 120 mm[Hg] Comments: Patient Position: Sitting; Cuff Location: Left Arm; Cuff Size: Large BP Diastolic 72 mm[Hg] Comments: Patient Position: Sitting; Cuff Location: Left Arm; Cuff Size: Large Weight 270.375 lb Height 65 in Body Mass Index Calculated 44.99 kg/m2 Body Surface Area Calculated 2.25 m2 :56 Pulse 78 /min Comments: Pattern: Regular Respiration Rate 18 /min Comments: Pattern: Unlabored O2 SAT 97 % Comments: Room air BP Systolic 118 mm[Hg] Comments: Patient Position: Sitting; Cuff Location: Left Arm; Cuff Size: Large BP Diastolic 78 mm[Hg] Comments: Patient Position: Sitting; Cuff Location: Left Arm; Cuff Size: Large Weight 255.125 lb Height 65 in Body Mass Index Calculated 42.45 kg/m2 Body Surface Area Calculated 2.19 m2 :16 Pulse 75 /min Comments: Pattern: Regular Respiration Rate 18 /min Comments: Pattern: Unlabored O2 SAT 95 % Comments: Room air BP Systolic 120 mm[Hg] Comments: Patient Position: Sitting; Cuff Location: Left Arm; Cuff Size: Large BP Diastolic 80 mm[Hg] Comments: Patient Position: Sitting; Cuff Location: Left Arm; Cuff Size: Large Weight 256.5 lb Height 65 in Body Mass Index Calculated 42.68 kg/m2 Body Surface Area Calculated 2.2 m2 :12 Pulse 76 /min Comments: Pattern: Regular Respiration Rate 18 /min Comments: Pattern: Unlabored O2 SAT 96 % Comments: Room air BP Systolic 132 mm[Hg] Comments: Patient Position: Sitting; Cuff Location: Left Arm; Cuff Size: Large BP Diastolic 82 mm[Hg] Comments: Patient Position: Sitting; Cuff Location: Left Arm; Cuff Size: Large Weight 264.25 lb Height 65 in Body Mass Index Calculated 43.97 kg/m2 Body Surface Area Calculated 2.23 m2 :01 Temperature 98.3 f Comments: Method: Temporal Pulse 88 /min Comments: Pattern: Regular Respiration Rate 17 /min Comments: Pattern: Unlabored O2 SAT 99 % Comments: Room air BP Systolic 126 mm[Hg] Comments: Patient Position: Sitting; Cuff Location: Left Arm; Cuff Size: Large BP Diastolic 74 mm[Hg] Comments: Patient Position: Sitting; Cuff Location: Left Arm; Cuff Size: Large Weight 283 lb Height 65 in Body Mass Index Calculated 47.09 kg/m2 Body Surface Area Calculated 2.29 m2 :26 Pulse 77 /min Comments: Pattern: Regular Respiration Rate 16 /min Comments: Pattern: Unlabored BP Systolic 129 mm[Hg] Comments: Patient Position: Sitting; Cuff Location: Left Arm; Cuff Size: Standard BP Diastolic 96 mm[Hg] Comments: Patient Position: Sitting; Cuff Location: Left Arm; Cuff Size: Standard Weight 278 lb Height 65 in Body Mass Index Calculated 46.26 kg/m2 Body Surface Area Calculated 2.28 m2 :38 Temperature 99.4 f Pulse 82 /min Comments: Pattern: Regular Respiration Rate 16 /min Comments: Pattern: Unlabored BP Systolic 124 mm[Hg] Comments: Patient Position: Sitting; Cuff Location: Left Arm; Cuff Size: Large BP Diastolic 84 mm[Hg] Comments: Patient Position: Sitting; Cuff Location: Left Arm; Cuff Size: Large Weight 236 lb Height 65 in Body Mass Index Calculated 39.27 kg/m2 Body Surface Area Calculated 2.12 m2 :16 Temperature 99.3 f Comments: Method: Oral Pulse 78 /min Comments: Pattern: Regular Respiration Rate 18 /min O2 SAT 96 % Comments: Room air BP Systolic 128 mm[Hg] Comments: Patient Position: Sitting; Cuff Location: Left Arm; Cuff Size: Standard BP Diastolic 78 mm[Hg] Comments: Patient Position: Sitting; Cuff Location: Left Arm; Cuff Size: Standard Weight 268 lb Height 65 in Body Mass Index Calculated 44.6 kg/m2 Body Surface Area Calculated 2.24 m2 :46 Temperature 96.9 f Comments: Method: Oral Pulse 77 /min Comments: Pattern: Regular Respiration Rate 20 /min Comments: Pattern: Unlabored O2 SAT 97 % Comments: Room air BP Systolic 118 mm[Hg] Comments: Patient Position: Sitting; Cuff Location: Right Arm; Cuff Size: Large BP Diastolic 82 mm[Hg] Comments: Patient Position: Sitting; Cuff Location: Right Arm; Cuff Size: Large Weight 268 lb Height 65 in Body Mass Index Calculated 44.6 kg/m2 Body Surface Area Calculated 2.24 m2 :38 Temperature 98.6 f Comments: Method: Oral Pulse 82 /min Comments: Pattern: Regular O2 SAT 96 % Comments: Room air BP Systolic 138 mm[Hg] Comments: Patient Position: Sitting; Cuff Location: Left Arm; Cuff Size: Standard BP Diastolic 78 mm[Hg] Comments: Patient Position: Sitting; Cuff Location: Left Arm; Cuff Size: Standard Weight 257 lb Height 65 in Body Mass Index Calculated 42.77 kg/m2 Body Surface Area Calculated 2.2 m2 :29 Temperature 97.8 f Pulse 76 /min Comments: Pattern: Regular Respiration Rate 18 /min Comments: Pattern: Unlabored BP Systolic 122 mm[Hg] Comments: Patient Position: Sitting; Cuff Location: Left Arm; Cuff Size: Large BP Diastolic 86 mm[Hg] Comments: Patient Position: Sitting; Cuff Location: Left Arm; Cuff Size: Large Weight 257 lb Height 65 in Body Mass Index Calculated 42.77 kg/m2 Body Surface Area Calculated 2.2 m2 :44 Temperature 98.4 f Pulse 78 /min Comments: Pattern: Regular Respiration Rate 18 /min Comments: Pattern: Unlabored BP Systolic 120 mm[Hg] Comments: Patient Position: Sitting; Cuff Location: Left Arm; Cuff Size: Large BP Diastolic 70 mm[Hg] Comments: Patient Position: Sitting; Cuff Location: Left Arm; Cuff Size: Large Weight 257 lb Height 65 in Body Mass Index Calculated 42.77 kg/m2 Body Surface Area Calculated 2.2 m2 :52 Temperature 98.6 f Pulse 84 /min Comments: Pattern: Regular Respiration Rate 18 /min Comments: Pattern: Unlabored BP Systolic 122 mm[Hg] Comments: Patient Position: Sitting; Cuff Location: Left Arm; Cuff Size: Large BP Diastolic 84 mm[Hg] Comments: Patient Position: Sitting; Cuff Location: Left Arm; Cuff Size: Large Weight 268 lb Height 65 in Body Mass Index Calculated 44.6 kg/m2 Body Surface Area Calculated 2.24 m2 :38 Temperature 98.1 f Comments: Method: Oral Pulse 76 /min Comments: Pattern: Regular Respiration Rate 18 /min Comments: Pattern: Unlabored O2 SAT 97 % Comments: Room air BP Systolic 132 mm[Hg] Comments: Patient Position: Sitting; Cuff Location: Left Arm; Cuff Size: Standard BP Diastolic 84 mm[Hg] Comments: Patient Position: Sitting; Cuff Location: Left Arm; Cuff Size: Standard Weight 265 lb Height 65 in Body Mass Index Calculated 44.1 kg/m2 Body Surface Area Calculated 2.23 m2 :18 Temperature 97.1 f Pulse 76 /min Comments: Pattern: Regular Respiration Rate 16 /min Comments: Pattern: Unlabored BP Systolic 136 mm[Hg] Comments: Patient Position: Sitting; Cuff Location: Left Arm; Cuff Size: Large BP Diastolic 80 mm[Hg] Comments: Patient Position: Sitting; Cuff Location: Left Arm; Cuff Size: Large Weight 257 lb Height 65 in Body Mass Index Calculated 42.77 kg/m2 Body Surface Area Calculated 2.2 m2 :24 Temperature 98.1 f Comments: Method: Oral Pulse 78 /min Comments: Pattern: Regular Respiration Rate 17 /min Comments: Pattern: Unlabored O2 SAT 98 % Comments: Room air BP Systolic 124 mm[Hg] Comments: Patient Position: Sitting; Cuff Location: Left Arm; Cuff Size: Standard BP Diastolic 78 mm[Hg] Comments: Patient Position: Sitting; Cuff Location: Left Arm; Cuff Size: Standard Weight 259.125 lb Height 65 in Body Mass Index Calculated 43.12 kg/m2 Body Surface Area Calculated 2.21 m2 :37 Temperature 98.2 f Comments: Method: Oral Pulse 88 /min Comments: Pattern: Regular O2 SAT 98 % Comments: Room air BP Systolic 140 mm[Hg] Comments: Patient Position: Sitting; Cuff Location: Left Arm; Cuff Size: Standard BP Diastolic 84 mm[Hg] Comments: Patient Position: Sitting; Cuff Location: Left Arm; Cuff Size: Standard Weight 259.125 lb Height 65 in Body Mass Index Calculated 43.12 kg/m2 Body Surface Area Calculated 2.21 m2 :38 Temperature 98.4 f Comments: Method: Oral Pulse 78 /min Comments: Pattern: Regular Respiration Rate 17 /min BP Systolic 130 mm[Hg] Comments: Patient Position: Sitting; Cuff Location: Left Arm; Cuff Size: Standard BP Diastolic 82 mm[Hg] Comments: Patient Position: Sitting; Cuff Location: Left Arm; Cuff Size: Standard Weight 259.125 lb Height 65 in Body Mass Index Calculated 43.12 kg/m2 Body Surface Area Calculated 2.21 m2 :19 Temperature 98 f Comments: Method: Oral Pulse 72 /min Comments: Pattern: Regular Respiration Rate 18 /min O2 SAT 97 % Comments: Room air BP Systolic 128 mm[Hg] Comments: Patient Position: Sitting; Cuff Location: Left Arm; Cuff Size: Standard BP Diastolic 74 mm[Hg] Comments: Patient Position: Sitting; Cuff Location: Left Arm; Cuff Size: Standard Weight 245 lb Height 65 in Body Mass Index Calculated 40.77 kg/m2 Body Surface Area Calculated 2.16 m2 :13 Temperature 97.4 f Comments: Method: Oral Pulse 64 /min Comments: Pattern: Regular Respiration Rate 16 /min Comments: Pattern: Unlabored BP Systolic 130 mm[Hg] Comments: Patient Position: Sitting; Cuff Location: Left Arm; Cuff Size: Standard BP Diastolic 84 mm[Hg] Comments: Patient Position: Sitting; Cuff Location: Left Arm; Cuff Size: Standard Weight 245 lb Height 65 in Body Mass Index Calculated 40.77 kg/m2 Body Surface Area Calculated 2.16 m2 :02 Temperature 97.5 f Pulse 72 /min Comments: Pattern: Regular Respiration Rate 18 /min Comments: Pattern: Unlabored BP Systolic 128 mm[Hg] Comments: Patient Position: Sitting; Cuff Location: Left Arm; Cuff Size: Large BP Diastolic 80 mm[Hg] Comments: Patient Position: Sitting; Cuff Location: Left Arm; Cuff Size: Large Weight 248 lb Height 65 in Body Mass Index Calculated 41.27 kg/m2 Body Surface Area Calculated 2.17 m2 :38 Temperature 98.2 f Comments: Method: Oral Pulse 82 /min Comments: Pattern: Regular Respiration Rate 18 /min BP Systolic 128 mm[Hg] Comments: Patient Position: Sitting; Cuff Location: Left Arm; Cuff Size: Standard BP Diastolic 74 mm[Hg] Comments: Patient Position: Sitting; Cuff Location: Left Arm; Cuff Size: Standard Weight 231 lb Height 65 in Body Mass Index Calculated 38.44 kg/m2 Body Surface Area Calculated 2.1 m2 :07 Temperature 97 f Pulse 72 /min Comments: Pattern: Regular Respiration Rate 18 /min Comments: Pattern: Unlabored BP Systolic 124 mm[Hg] Comments: Patient Position: Sitting; Cuff Location: Left Arm; Cuff Size: Large BP Diastolic 84 mm[Hg] Comments: Patient Position: Sitting; Cuff Location: Left Arm; Cuff Size: Large Weight 231 lb Height 65 in Body Mass Index Calculated 38.44 kg/m2 Body Surface Area Calculated 2.1 m2 :00 Temperature 96.1 f Pulse 76 /min Comments: Pattern: Regular Respiration Rate 18 /min Comments: Pattern: Unlabored BP Systolic 110 mm[Hg] Comments: Patient Position: Sitting; Cuff Location: Left Arm; Cuff Size: Large BP Diastolic 80 mm[Hg] Comments: Patient Position: Sitting; Cuff Location: Left Arm; Cuff Size: Large Weight 233 lb Height 65 in Body Mass Index Calculated 38.77 kg/m2 Body Surface Area Calculated 2.11 m2 :41 Temperature 97.9 f Comments: Method: Oral Pulse 70 /min Comments: Pattern: Regular Respiration Rate 16 /min Comments: Pattern: Unlabored BP Systolic 132 mm[Hg] Comments: Patient Position: Sitting; Cuff Location: Left Arm; Cuff Size: Standard BP Diastolic 80 mm[Hg] Comments: Patient Position: Sitting; Cuff Location: Left Arm; Cuff Size: Standard Weight 253 lb Height 65 in Body Mass Index Calculated 42.1 kg/m2 Body Surface Area Calculated 2.19 m2 :08 Temperature 96.2 f Pulse 68 /min Comments: Pattern: Regular Respiration Rate 16 /min Comments: Pattern: Unlabored BP Systolic 124 mm[Hg] Comments: Patient Position: Sitting; Cuff Location: Left Arm; Cuff Size: Large BP Diastolic 84 mm[Hg] Comments: Patient Position: Sitting; Cuff Location: Left Arm; Cuff Size: Large Weight 253 lb Height 65 in Body Mass Index Calculated 42.1 kg/m2 Body Surface Area Calculated 2.19 m2 :47 Temperature 98.4 f Pulse 68 /min Comments: Pattern: Regular Respiration Rate 18 /min Comments: Pattern: Unlabored BP Systolic 116 mm[Hg] Comments: Patient Position: Sitting; Cuff Location: Left Arm; Cuff Size: Large BP Diastolic 90 mm[Hg] Comments: Patient Position: Sitting; Cuff Location: Left Arm; Cuff Size: Large Weight 253 lb Height 65 in Body Mass Index Calculated 42.1 kg/m2 Body Surface Area Calculated 2.19 m2 :13 Pulse 60 /min Comments: Pattern: Regular Respiration Rate 18 /min Comments: Pattern: Unlabored BP Systolic 128 mm[Hg] Comments: Patient Position: Sitting; Cuff Location: Left Arm; Cuff Size: Standard BP Diastolic 80 mm[Hg] Comments: Patient Position: Sitting; Cuff Location: Left Arm; Cuff Size: Standard Weight 247.5625 lb Height 65 in Body Mass Index Calculated 41.2 kg/m2 Body Surface Area Calculated 2.17 m2 :00 Temperature 97.6 f Comments: Method: Oral Pulse 74 /min Comments: Pattern: Regular Respiration Rate 18 /min Comments: Pattern: Unlabored BP Systolic 134 mm[Hg] Comments: Patient Position: Sitting; Cuff Location: Left Arm; Cuff Size: Standard BP Diastolic 78 mm[Hg] Comments: Patient Position: Sitting; Cuff Location: Left Arm; Cuff Size: Standard Weight 238.1 lb :21 Temperature 96.8 f Pulse 72 /min Comments: Pattern: Regular Respiration Rate 18 /min Comments: Pattern: Unlabored BP Systolic 106 mm[Hg] Comments: Patient Position: Sitting; Cuff Location: Left Arm; Cuff Size: Large BP Diastolic 70 mm[Hg] Comments: Patient Position: Sitting; Cuff Location: Left Arm; Cuff Size: Large Weight 251 lb :37 Pulse 72 /min Comments: Pattern: Regular Respiration Rate 16 /min Comments: Pattern: Unlabored BP Systolic 120 mm[Hg] Comments: Patient Position: Sitting; Cuff Location: Left Arm; Cuff Size: Standard BP Diastolic 78 mm[Hg] Comments: Patient Position: Sitting; Cuff Location: Left Arm; Cuff Size: Standard Weight 249.0625 lb :10 Temperature 97.1 f Comments: Method: Oral Pulse 76 /min Comments: Pattern: Regular Respiration Rate 18 /min Comments: Pattern: Unlabored BP Systolic 136 mm[Hg] Comments: Patient Position: Sitting; Cuff Location: Left Arm; Cuff Size: Standard BP Diastolic 84 mm[Hg] Comments: Patient Position: Sitting; Cuff Location: Left Arm; Cuff Size: Standard Weight 248 lb :07 Temperature 98.2 f Comments: Method: Oral Pulse 68 /min Comments: Pattern: Regular Respiration Rate 20 /min Comments: Pattern: Unlabored BP Systolic 104 mm[Hg] Comments: Patient Position: Sitting; Cuff Location: Left Arm; Cuff Size: Large BP Diastolic 74 mm[Hg] Comments: Patient Position: Sitting; Cuff Location: Left Arm; Cuff Size: Large :25 Temperature 95.5 f Pulse 74 /min Comments: Pattern: Regular Respiration Rate 18 /min Comments: Pattern: Unlabored BP Systolic 106 mm[Hg] Comments: Patient Position: Sitting; Cuff Location: Left Arm; Cuff Size: Standard BP Diastolic 70 mm[Hg] Comments: Patient Position: Sitting; Cuff Location: Left Arm; Cuff Size: Standard Weight 251 lb :33 Temperature 97.8 f Pulse 68 /min Comments: Pattern: Regular Respiration Rate 18 /min Comments: Pattern: Unlabored BP Systolic 126 mm[Hg] Comments: Patient Position: Sitting; Cuff Location: Left Arm; Cuff Size: Large BP Diastolic 80 mm[Hg] Comments: Patient Position: Sitting; Cuff Location: Left Arm; Cuff Size: Large :58 Temperature 97.5 f Comments: Method: Undefined Pulse 80 /min Comments: Pattern: Regular Respiration Rate 18 /min Comments: Pattern: Undefined BP Systolic 120 mm[Hg] Comments: Patient Position: Sitting; Cuff Location: Left Arm; Cuff Size: Standard BP Diastolic 84 mm[Hg] Comments: Patient Position: Sitting; Cuff Location: Left Arm; Cuff Size: Standard Weight 269 lb Height 0 in Head Circumference 0.00 cm :21 Temperature 97.6 f Comments: Method: Undefined Pulse 72 /min Comments: Pattern: Regular Respiration Rate 18 /min Comments: Pattern: Undefined BP Systolic 102 mm[Hg] Comments: Patient Position: Sitting; Cuff Location: Left Arm; Cuff Size: Large BP Diastolic 64 mm[Hg] Comments: Patient Position: Sitting; Cuff Location: Left Arm; Cuff Size: Large Weight 0 lb Height 0 in Head Circumference 0.00 cm :18 Temperature 97.3 f Comments: Method: Oral Pulse 80 /min Comments: Pattern: Regular Respiration Rate 16 /min Comments: Pattern: Unlabored BP Systolic 120 mm[Hg] Comments: Patient Position: Supine; Cuff Location: Left Arm; Cuff Size: Standard BP Diastolic 70 mm[Hg] Comments: Patient Position: Supine; Cuff Location: Left Arm; Cuff Size: Standard Weight 279.375 lb Height 0 in Head Circumference 0.00 cm :19 Pulse 70 /min Comments: Pattern: Regular Respiration Rate 16 /min Comments: Pattern: Unlabored BP Systolic 122 mm[Hg] Comments: Patient Position: Supine; Cuff Location: Left Arm; Cuff Size: Large BP Diastolic 82 mm[Hg] Comments: Patient Position: Supine; Cuff Location: Left Arm; Cuff Size: Large Weight 279.375 lb Height 0 in Head Circumference 0.00 cm :22 Temperature 97.1 f Comments: Method: Oral Pulse 80 /min Comments: Pattern: Regular Respiration Rate 18 /min Comments: Pattern: Unlabored BP Systolic 138 mm[Hg] Comments: Patient Position: Sitting; Cuff Location: Left Arm; Cuff Size: Large BP Diastolic 90 mm[Hg] Comments: Patient Position: Sitting; Cuff Location: Left Arm; Cuff Size: Large Weight 279.375 lb Height 0 in Head Circumference 0.00 cm :12 Temperature 96.2 f Comments: Method: Undefined Pulse 88 /min Comments: Pattern: Regular Respiration Rate 18 /min Comments: Pattern: Undefined BP Systolic 124 mm[Hg] Comments: Patient Position: Sitting; Cuff Location: Right Arm; Cuff Size: Large BP Diastolic 82 mm[Hg] Comments: Patient Position: Sitting; Cuff Location: Right Arm; Cuff Size: Large Weight 288 lb Height 0 in Head Circumference 0.00 cm :03 Temperature 96.5 f Comments: Method: Oral Pulse 72 /min Comments: Pattern: Regular Respiration Rate 18 /min Comments: Pattern: Unlabored BP Systolic 122 mm[Hg] Comments: Patient Position: Standing; Cuff Location: Left Arm; Cuff Size: Large BP Diastolic 82 mm[Hg] Comments: Patient Position: Standing; Cuff Location: Left Arm; Cuff Size: Large Weight 283.5 lb Height 68 in Body Mass Index Calculated 43.11 kg/m2 Body Surface Area Calculated 2.37 m2 Head Circumference 0.00 cm :55 Pulse 82 /min Comments: Pattern: Regular Respiration Rate 16 /min Comments: Pattern: Unlabored BP Systolic 122 mm[Hg] Comments: Patient Position: Sitting; Cuff Location: Left Arm; Cuff Size: Standard BP Diastolic 70 mm[Hg] Comments: Patient Position: Sitting; Cuff Location: Left Arm; Cuff Size: Standard Weight 276.4375 lb Height 0 in Head Circumference 0.00 cm :49 Temperature 98.2 f Comments: Method: Undefined Pulse 80 /min Comments: Pattern: Regular Respiration Rate 16 /min Comments: Pattern: Undefined BP Systolic 118 mm[Hg] Comments: Patient Position: Sitting; Cuff Location: Left Arm; Cuff Size: Standard BP Diastolic 90 mm[Hg] Comments: Patient Position: Sitting; Cuff Location: Left Arm; Cuff Size: Standard Weight 0 lb Height 0 in Head Circumference 0.00 cm :26 BP Systolic 120 mm[Hg] Comments: Patient Position: Sitting; Cuff Location: Undefined; Cuff Size: Undefined BP Diastolic 82 mm[Hg] Comments: Patient Position: Sitting; Cuff Location: Undefined; Cuff Size: Undefined Weight 0 lb Height 0 in Head Circumference 0.00 cm :46 Temperature 98.4 f Comments: Method: Undefined Pulse 80 /min Comments: Pattern: Regular Respiration Rate 16 /min Comments: Pattern: Undefined BP Systolic 130 mm[Hg] Comments: Patient Position: Sitting; Cuff Location: Right Arm; Cuff Size: Standard BP Diastolic 90 mm[Hg] Comments: Patient Position: Sitting; Cuff Location: Right Arm; Cuff Size: Standard Weight 284 lb Height 0 in Head Circumference 0.00 cm :08 Temperature 98 f Comments: Method: Oral Pulse 84 /min Comments: Pattern: Regular Respiration Rate 16 /min Comments: Pattern: Unlabored BP Systolic 112 mm[Hg] Comments: Patient Position: Sitting; Cuff Location: Left Arm; Cuff Size: Standard BP Diastolic 84 mm[Hg] Comments: Patient Position: Sitting; Cuff Location: Left Arm; Cuff Size: Standard Weight 281 lb Height 0 in Head Circumference 0.00 cm :22 Temperature 98 f Comments: Method: Oral Pulse 88 /min Comments: Pattern: Regular Respiration Rate 20 /min Comments: Pattern: Unlabored BP Systolic 130 mm[Hg] Comments: Patient Position: Sitting; Cuff Location: Right Arm; Cuff Size: Standard BP Diastolic 88 mm[Hg] Comments: Patient Position: Sitting; Cuff Location: Right Arm; Cuff Size: Standard Weight 282 lb Height 67.5 in Body Mass Index Calculated 43.52 kg/m2 Body Surface Area Calculated 2.35 m2 Head Circumference 0.00 cm :36 Temperature 98.3 f Comments: Method: Oral Pulse 92 /min Comments: Pattern: Regular Respiration Rate 18 /min Comments: Pattern: Unlabored BP Systolic 132 mm[Hg] Comments: Patient Position: Sitting; Cuff Location: Right Arm; Cuff Size: Large BP Diastolic 92 mm[Hg] Comments: Patient Position: Sitting; Cuff Location: Right Arm; Cuff Size: Large Weight 0 lb Height 0 in Head Circumference 0.00 cm :25 Temperature 97.9 f Comments: Method: Undefined Pulse 80 /min Comments: Pattern: Regular Respiration Rate 18 /min Comments: Pattern: Unlabored BP Systolic 130 mm[Hg] Comments: Patient Position: Sitting; Cuff Location: Left Arm; Cuff Size: Standard BP Diastolic 81 mm[Hg] Comments: Patient Position: Sitting; Cuff Location: Left Arm; Cuff Size: Standard Weight 277 lb Height 67.5 in Body Mass Index Calculated 42.74 kg/m2 Body Surface Area Calculated 2.33 m2 Head Circumference 0.00 cm :07 Temperature 97.6 f Comments: Method: Oral Pulse 76 /min Comments: Pattern: Regular Respiration Rate 18 /min Comments: Pattern: Unlabored BP Systolic 128 mm[Hg] Comments: Patient Position: Sitting; Cuff Location: Right Arm; Cuff Size: Standard BP Diastolic 86 mm[Hg] Comments: Patient Position: Sitting; Cuff Location: Right Arm; Cuff Size: Standard Weight 266 lb Height 67.5 in Body Mass Index Calculated 41.05 kg/m2 Body Surface Area Calculated 2.3 m2 Head Circumference 0.00 cm :54 Temperature 98.6 f Comments: Method: Oral Pulse 80 /min Comments: Pattern: Regular Respiration Rate 16 /min Comments: Pattern: Unlabored BP Systolic 118 mm[Hg] Comments: Patient Position: Sitting; Cuff Location: Right Arm; Cuff Size: Standard BP Diastolic 88 mm[Hg] Comments: Patient Position: Sitting; Cuff Location: Right Arm; Cuff Size: Standard Weight 0 lb Height 0 in Head Circumference 0.00 cm :27 Temperature 98.6 f Comments: Method: Oral Pulse 76 /min Comments: Pattern: Regular Respiration Rate 18 /min Comments: Pattern: Unlabored BP Systolic 122 mm[Hg] Comments: Patient Position: Sitting; Cuff Location: Left Arm; Cuff Size: Standard BP Diastolic 82 mm[Hg] Comments: Patient Position: Sitting; Cuff Location: Left Arm; Cuff Size: Standard Weight 253 lb Height 0 in Head Circumference 0.00 cm :34 Temperature 97.7 f Comments: Method: Oral Pulse 72 /min Comments: Pattern: Regular Respiration Rate 16 /min Comments: Pattern: Unlabored BP Systolic 134 mm[Hg] Comments: Patient Position: Sitting; Cuff Location: Left Arm; Cuff Size: Standard BP Diastolic 84 mm[Hg] Comments: Patient Position: Sitting; Cuff Location: Left Arm; Cuff Size: Standard Weight 256 lb Height 66 in Body Mass Index Calculated 41.32 kg/m2 Body Surface Area Calculated 2.22 m2 Head Circumference 0.00 cm Results Date Description Value Details :11 Hemoglobin A1c Comments: [facility] [id number] [facility]. [place], [place], [phone] HGB A1C 6.2 % (Normal) Range: 4.2-6.3 :07 CBC W/Diff, Automated Comments: [facility] [id number] [facility]. [place], [place], [phone] Absolute Lymph 1.37 {X10_3/ul} (Normal) Range: 0.83-4.51 Absolute Neut 2.9 {X10_3/uL} (Normal) Range: 2.0-7.7 IM GRAN % 0.200 % (Normal) Range: 0.0-0.9 Comments: IG% - Immature Granulocytes (promyelocytes, myelocytes andmetamyelocytes) > 1% indicates that a LEFT SHIFT is Present. BASO% 0.6 % (Normal) Range: 0-1 EO% 9.4 % (Abnormal) Range: 0-5 MONO% 10.9 % (Abnormal) Range: 0-10 LY% 25.2 % (Normal) Range: 19-41 NEUT% 53.7 % (Normal) Range: 47-70 MPV 10.2 fL (Normal) Range: 6.2-12.0 PLT 215 K/mm3 (Normal) Range: 150-450 RDW SD 50.8 fL (Abnormal) Range: 35.1-43.9 RDW CV 15.3 % (Abnormal) Range: 11.6-14.6 MCHC 31.7 {g/gl} (Abnormal) Range: 32-36 MCH 29.4 pg (Normal) Range: 27.0-32.0 MCV 92.9 fL (Normal) Range: 80-94 HCT 41.7 % (Normal) Range: 40-54 HGB 13.2 g/dL (Normal) Range: 13.0-16.5 RBC 4.49 {M/mm3} (Abnormal) Range: 4.6-6.2 WBC 5.4 K/mm3 (Normal) Range: 4.4-11.0 [id number] Comprehensive Metabolic Profil Comments: [facility] [id number] [place], [place], [id number] GAP 7 (Normal) Range: 5-15 CO2 29.0 mmol/L (Normal) Range: 21.0-32.0 CL 106 mmol/L (Normal) Range: 98-107 K 4.2 mmol/L (Normal) Range: 3.5-5.1 NA 142 mmol/L (Normal) Range: 136-145 T BILI 0.50 mg/dL (Normal) Range: 0.20-1.00 ALT 31 U/L (Normal) Range: 16-61 ALK P 61 U/L (Normal) Range: 45-117 AST 18 U/L (Normal) Range: 15-37 CA 8.6 mg/dL (Normal) Range: 8.5-10.1 A/G 1.1 {RATIO} (Normal) Range: 0.9-2.4 GLOB 3.2 g/dL (Normal) Range: 2.2-4.2 ALB 3.6 g/dL (Normal) Range: 3.2-5.0 T PROT 6.8 g/dL (Normal) Range: 6.4-8.2 BUN/CRE 15.4 {RATIO} (Normal) Range: 10-20 EST GFR - AA 120 mL/min (Normal) Comments: GFR Calc EST GFR 99 mL/min (Normal) Comments: Non- GFR Calc CREAT,SERUM 0.84 mg/dL (Normal) Range: 0.70-1.30 Comments: The validity of the calculated GFR AND GFRAA in patients over70 years has not been determined. Clinical correlation isessential. BUN 13 mg/dL (Normal) Range: 7-18 GLU 91 mg/dL (Normal) Range: 74-106 Comments: Please note revised GLUCOSE reference range uglegzaab94/02/2018. [id number] Microalb:Creat Ratio,Random UR Comments: [facility] [id number] [place], [place], [address] MALB:CREAT Test not performed {mg/g_CRE} (Normal) MICROALBUMIN,UR < 5.0 mg/L (Normal) UR CREAT 99.90 mg/dL (Normal) :07 NMR Lipoprofile Comments: [facility] (refer to report for specific site)refer to report for address and phone number LP-IR SCORE 29 (Normal) Comments: INSULIN RESISTANCE MARKER <--Insulin Sensitive Insulin Resistant--> Percentile in Reference PopulationInsulin Resistance ScoreLP-IR Score Low 25th 50th 75th High <27 27 45 63 >63LP-IR Score is inaccurate if patient is non-fasting.The LP-IR score is a laboratory developed index that hasbeen associated with insulin resistance and diabetes riskand should be used as one component of a physician'sclinical assessment. The LP-IR score listed above has notbeen cleared by the [place] Food and Drug Administration.Performed at: [facility] [id number] [place], [place] [id number] Director: Marleny Chapman MD, Phone: [phone] INS RES/DIAB RK . (Normal) LDL SIZE 21.4 nm (Normal) Comments: INTERPRETATIVE INFORMATION PARTICLE CONCENTRATION AND SIZE <--Lower CVD Risk Highe r CVD Risk--> LDL AND HDL PARTICLES Percentile in Reference Population HDL-P (total) High 75th 50th 25th Low >34.9 34.9 30.5 26.7 <26.7 Small LDL-P Low 25th 50th 75th High <117 117 527 839 >839 LDL Size <-Large (Pattern A)-> <-Small (Pattern B)-> 23.0 20.6 20.5 19.0 Small LDL-P and LDL Size are associated with CVD risk, butnot after LDL-P is taken into account .These assays were developed and their performancecharacteristics determined by [employer]. These assayshave not been cleared by the [place] Food and DrugAdministration. The clinical utility of these laboratoryvalues have not been fully established. SMALL LDL-P 266 nmol/L (Normal) HDL-P TOTAL 35.5 umol/L (Normal) LD HD PARTICLES . (Normal) LDL-P 1191 nmol/L (Abnormal) Comments: Low < 1000 Moderate 1000 - 1299 Borderline-High 1300 - 1599 High 1600 - 2000 Very High > 2000 TRIGLYCERIDES 71 mg/dL (Normal) Range: 0-149 HDL-C 52 mg/dL (Normal) LDL-C 100 mg/dL (Abnormal) Range: 0-99 Comments: Optimal < 100 Above optimal 100 - 129 Borderline 130 - 159 High 160 - 189 Very high > 189LDL-C is inaccurate if patient is non-fasting. CHOLESTEROL TOT 166 mg/dL (Normal) Range: 100-199 LIPIDS . (Normal) [id number] Thyroid Stim Hormone (TSH) Comments: [facility] [id number] [facility]. [place], [place], [id number] TSH 1.19 {uIU/mL} (Normal) Range: 0.358-3.74 [id number]-[id number]:07 Urinalysis, Complete Comments: How was Urine Obtained? CLEAN [facility] [id number] [facility] [place], [address] MUCUS, URINE 0 SEEN {/hpf} (Normal) BACTERIA 0 SEEN {/hpf} (Normal) SQUAM EPI 0 SEEN {/hpf} (Normal) Range: 0-5 RBC-UA 0 SEEN {/hpf} (Normal) Range: 0-5 WBC 0 SEEN {/hpf} (Normal) Range: 0-5 LEUK ESTERASE Negative /ul (Normal) OCCULT BLOOD-UR Negative /ul (Normal) NITRITE UR Negative (Normal) UROBILI Normal mg/dL (Normal) PROT DIPSTX Negative mg/dL (Normal) pH UR 7.0 (Normal) Range: 5.0 - 8.0 SP.GR. DIPSTX 1.010 (Normal) Range: 1.002-1.030 KETONE UR Negative mg/dL (Normal) BILIRUBIN URINE Negative mg/dL (Normal) GLUCOSE, UR Normal mg/dL (Normal) CLARITY Clear (Normal) COLOR Yellow (Normal) [id number] Vitamin D,25 Hydroxy Comments: [facility] [id number] [place], [place], [id number] Vitamin D 25-OH 47.8 ng/mL (Normal) Range: 29.95-100.01 Comments: Vitamin D 25(OH) Status Range Deficiency <20 ng/mL (50nmol/L) Insuffciency 20 - 30 ng/mL (50 - 75 nmol/L) Sufficiency 30 - 100 ng/mL (75 - 250 nmol/L) Toxicity >100 ng/mL (>250 nmol/L) [id number]-[id number]:35 Hemoglobin A1c Comments: [facility] [id number] [place], [address] HGB A1C 5.7 % (Normal) Range: 4.2-6.3 [id number] CBC W/Diff, Automated Comments: [facility] [id number] [facility]. [place], [place], [id number] Absolute Lymph 1.45 {X10_3/ul} (Normal) Range: 0.83-4.51 Absolute Neut 5.4 {X10_3/uL} (Normal) Range: 2.0-7.7 IM GRAN % 0.100 % (Normal) Range: 0.0-0.9 Comments: IG% - Immature Granulocytes (promyelocytes, myelocytes andmetamyelocytes) > 1% indicates that a LEFT SHIFT is Present. BASO% 0.3 % (Normal) Range: 0-1 EO% 1.4 % (Normal) Range: 0-5 MONO% 8.8 % (Normal) Range: 0-10 LY% 19.0 % (Normal) Range: 19-41 NEUT% 70.4 % (Abnormal) Range: 47-70 MPV 9.3 fL (Normal) Range: 6.2-12.0 PLT 218 K/mm3 (Normal) Range: 150-450 RDW SD 50.1 fL (Abnormal) Range: 35.1-43.9 RDW CV 15.5 % (Abnormal) Range: 11.6-14.6 MCHC 32.3 {g/gl} (Normal) Range: 32-36 MCH 29.6 pg (Normal) Range: 27.0-32.0 MCV 91.6 fL (Normal) Range: 80-94 HCT 40.2 % (Normal) Range: 40-54 HGB 13.0 g/dL (Normal) Range: 13.0-16.5 RBC 4.39 {M/mm3} (Abnormal) Range: 4.6-6.2 WBC 7.7 K/mm3 (Normal) Range: 4.4-11.0 [id number] Comprehensive Metabolic Profil Comments: [facility] [id number] [place], [address] GAP 6 (Normal) Range: 5-15 CO2 28.0 mmol/L (Normal) Range: 21.0-32.0 CL 104 mmol/L (Normal) Range: 98-107 K 4.2 mmol/L (Normal) Range: 3.5-5.1 NA 138 mmol/L (Normal) Range: 136-145 T BILI 0.50 mg/dL (Normal) Range: 0.20-1.00 ALT 37 U/L (Normal) Range: 16-61 ALK P 62 U/L (Normal) Range: 45-117 AST 27 U/L (Normal) Range: 15-37 CA 8.7 mg/dL (Normal) Range: 8.5-10.1 A/G 1.2 {RATIO} (Normal) Range: 0.9-2.4 GLOB 3.3 g/dL (Normal) Range: 2.2-4.2 ALB 3.9 g/dL (Normal) Range: 3.2-5.0 T PROT 7.2 g/dL (Normal) Range: 6.4-8.2 BUN/CRE 18.3 {RATIO} (Normal) Range: 10-20 EST GFR - AA 94 mL/min (Normal) Comments: GFR Calc EST GFR 78 mL/min (Normal) Comments: Non- GFR Calc CREAT,SERUM 1.04 mg/dL (Normal) Range: 0.70-1.30 Comments: The validity of the calculated GFR AND GFRAA in patients over70 years has not been determined. Clinical correlation isessential. BUN 19 mg/dL (Abnormal) Range: 7-18 GLU 110 mg/dL (Abnormal) Range: 74-106 Comments: Fasting Glucose result from 100 to 125 mg/dLsuggests IMPAIRED HOMEOSTASIS per A.D.A. criteria.Please note revised GLUCOSE reference range [id number]/02/2018. 29-Jun-20178:37 CBC W/Diff, Automated Comments: [facility] [id number] [place], [address] Absolute Lymph 1.73 {X10_3/ul} (Normal) Range: 0.83-4.51 Absolute Neut 2.9 {X10_3/uL} (Normal) Range: 2.0-7.7 IM GRAN % 0.200 % (Normal) Range: 0.0-0.9 Comments: IG% - Immature Granulocytes (promyelocytes, myelocytes andmetamyelocytes) > 1% indicates that a LEFT SHIFT is Present. BASO% 0.4 % (Normal) Range: 0-1 EO% 3.7 % (Normal) Range: 0-5 MONO% 9.9 % (Normal) Range: 0-10 LY% 32.4 % (Normal) Range: 19-41 NEUT% 53.4 % (Normal) Range: 47-70 MPV 9.1 fL (Normal) Range: 6.2-12.0 PLT 226 K/mm3 (Normal) Range: 150-450 RDW SD 53.5 fL (Abnormal) Range: 35.1-43.9 RDW CV 16.0 % (Abnormal) Range: 11.6-14.6 MCHC 31.4 {g/gl} (Abnormal) Range: 32-36 MCH 28.9 pg (Normal) Range: 27.0-32.0 MCV 92.2 fL (Normal) Range: 80-94 HCT 39.2 % (Abnormal) Range: 40-54 HGB 12.3 g/dL (Abnormal) Range: 13.0-16.5 RBC 4.25 {M/mm3} (Abnormal) Range: 4.6-6.2 WBC 5.3 K/mm3 (Normal) Range: 4.4-11.0 29-Jun-[id number] Comprehensive Metabolic Profil Comments: [facility] AVELINA [facility] [id number] [facility] [place], [id number] GAP 4 (Abnormal) Range: 5-15 CO2 29.0 mmol/L (Normal) Range: 21.0-32.0 CL 108 mmol/L (Abnormal) Range: 98-107 K 4.2 mmol/L (Normal) Range: 3.5-5.1 NA 141 mmol/L (Normal) Range: 136-145 T BILI 0.40 mg/dL (Normal) Range: 0.20-1.00 ALT 36 U/L (Normal) Range: 16-61 ALK P 55 U/L (Normal) Range: 45-117 AST 22 U/L (Normal) Range: 15-37 CA 8.4 mg/dL (Abnormal) Range: 8.5-10.1 A/G 1.1 {RATIO} (Normal) Range: 0.9-2.4 GLOB 3.2 g/dL (Normal) Range: 2.2-4.2 ALB 3.5 g/dL (Normal) Range: 3.2-5.0 T PROT 6.7 g/dL (Normal) Range: 6.4-8.2 BUN/CRE 22.7 {RATIO} (Abnormal) Range: 10-20 EST GFR - AA 121 mL/min (Normal) Comments: GFR Calc EST GFR 100 mL/min (Normal) Comments: Non- GFR Calc CREAT,SERUM 0.84 mg/dL (Normal) Range: 0.70-1.30 Comments: The validity of the calculated GFR AND GFRAA in patients over70 years has not been determined. Clinical correlation isessential. BUN 19 mg/dL (Abnormal) Range: 7-18 GLU 95 mg/dL (Normal) Range: 74-106 Comments: Please note revised GLUCOSE reference range /02/2018. :37 Hemoglobin A1c Comments: [facility] [address] [place], [place], [address] HGB A1C 6.0 % (Normal) Range: 4.2-6.3 29-Jun-20178:37 Lipid Profile Comments: TOM QUAN GETS CBCD,[facility] [address] [place], [address] VLDL 9 mg/dL (Normal) Range: 5-40 LDL 67 mg/dL (Normal) Range: 0-130 HDL 56 mg/dL (Normal) Comments: The drugs N-Acetylcysteine and Metamizole may falselydepress this assay. Reference Range HDL <40 mg/dL Low HDL Cholesterol HDL >or= 60 mg/dL High HDL Cholesterol TRIG 47 mg/dL (Normal) Comments: The drugs N-Acetylcysteine and Metamizole may falselydepress this assay.Serum Triglycerides Reference Interval Normal <150 mg/dL Borderline high 150 - 199 mg/dL High 200 - 499 mg/dL Very High > or = 500 mg/dL CHOL 132 mg/dL (Normal) Comments: <200 mg/dL Desirable 200-240 mg/dL Borderline >240 mg/dL High Risk 29-Jun-20178:37 Microalb:Creat Ratio,Random UR Comments: [facility] [address] [place], [place], [id number] MALB:CREAT 4.1 {mg/g_CRE} (Normal) MICROALBUMIN,UR 10.9 mg/L (Normal) UR CREAT 264.00 mg/dL (Normal) :37 Thyroid Stim Hormone (TSH) Comments: TOM QUAN GETS CBCD,[facility] [address] [place], [place], [address] TSH 0.84 {uIU/mL} (Normal) Range: 0.358-3.74 29-Jun-20178:37 Urinalysis, Complete Comments: How was Urine Obtained? [facility] [address]cpfhadod[address] [place], [place], [id number] MUCUS, URINE 0 SEEN {/hpf} (Normal) BACTERIA 0 SEEN {/hpf} (Normal) SQUAM EPI 0 SEEN {/hpf} (Normal) Range: 0-5 RBC-UA 0 SEEN {/hpf} (Normal) Range: 0-5 WBC 0 SEEN {/hpf} (Normal) Range: 0-5 LEUK ESTERASE Negative /ul (Normal) OCCULT BLOOD-UR Negative /ul (Normal) NITRITE UR Negative (Normal) UROBILI Normal mg/dL (Normal) PROT DIPSTX Negative mg/dL (Normal) pH UR 6.0 (Normal) Range: 5.0 - 8.0 SP.GR. DIPSTX 1.020 (Normal) Range: 1.002-1.030 KETONE UR 5 mg/dL (Abnormal) BILIRUBIN URINE 1 mg/dL (Abnormal) Comments: COLOR OF URINE MAY AFFECT DIPSTICK RESULTS. GLUCOSE, UR Normal mg/dL (Normal) CLARITY Clear (Normal) COLOR Yellow (Normal) 29-Jun-20178:37 Vitamin D,25 Hydroxy Comments: [facility] [address]kg[address] [facility] [address]. [place], [place], [address] Vitamin D 25-OH 38.9 ng/mL (Normal) Range: 29.95-100.01 Comments: Vitamin D 25(OH) Status Range Deficiency <20 ng/mL (50nmol/L) Insuffciency 20 - 30 ng/mL (50 - 75 nmol/L) Sufficiency 30 - 100 ng/mL (75 - 250 nmol/L) Toxicity >100 ng/mL (>250 nmol/L) 69-Lab-994127:02 CBC W/Diff, Automated Comments: [facility] [address] [place], [address] Absolute Lymph 1.71 {X10_3/ul} (Normal) Range: 0.83-4.51 Absolute Neut 4.2 {X10_3/uL} (Normal) Range: 2.0-7.7 IM GRAN % 0.300 % (Normal) Range: 0.0-0.9 Comments: IG% - Immature Granulocytes (promyelocytes, myelocytes andmetamyelocytes) > 1% indicates that a LEFT SHIFT is Present. BASO% 0.3 % (Normal) Range: 0-1 EO% 4.1 % (Normal) Range: 0-5 MONO% 8.2 % (Normal) Range: 0-10 LY% 25.0 % (Normal) Range: 19-41 NEUT% 62.1 % (Normal) Range: 47-70 MPV 9.7 fL (Normal) Range: 6.2-12.0 PLT 258 K/mm3 (Normal) Range: 150-450 RDW SD 48.1 fL (Abnormal) Range: 35.1-43.9 RDW CV 14.8 % (Abnormal) Range: 11.6-14.6 MCHC 32.6 {g/gl} (Normal) Range: 32-36 MCH 29.7 pg (Normal) Range: 27.0-32.0 MCV 91.1 fL (Normal) Range: 80-94 HCT 38.0 % (Abnormal) Range: 40-54 HGB 12.4 g/dL (Abnormal) Range: 13.0-16.5 RBC 4.17 {M/mm3} (Abnormal) Range: 4.6-6.2 WBC 6.8 K/mm3 (Normal) Range: 4.4-11.0 08-Tig-276340:02 Comprehensive Metabolic Profil Comments: [facility] [address] [place], [address] GAP 7 (Normal) Range: 5-15 CO2 30.0 mmol/L (Normal) Range: 21.0-32.0 CL 103 mmol/L (Normal) Range: 98-107 K 3.8 mmol/L (Normal) Range: 3.5-5.1 NA 140 mmol/L (Normal) Range: 136-145 T BILI 0.50 mg/dL (Normal) Range: 0.20-1.00 ALT 49 U/L (Normal) Range: 16-61 Comments: Please note revised ALT reference range viwfsncvq45/28/2018. ALK P 68 U/L (Normal) Range: 45-117 AST 28 U/L (Normal) Range: 15-37 CA 8.5 mg/dL (Normal) Range: 8.5-10.1 A/G 1.2 {RATIO} (Normal) Range: 0.9-2.4 GLOB 3.2 g/dL (Normal) Range: 2.2-4.2 ALB 3.7 g/dL (Normal) Range: 3.2-5.0 T PROT 6.9 g/dL (Normal) Range: 6.4-8.2 BUN/CRE 21.9 {RATIO} (Abnormal) Range: 10-20 EST GFR - AA 116 mL/min (Normal) Comments: GFR Calc EST GFR 96 mL/min (Normal) Comments: Non- GFR Calc CREAT,SERUM 0.87 mg/dL (Normal) Range: 0.70-1.30 Comments: The validity of the calculated GFR AND GFRAA in patients over70 years has not been determined. Clinical correlation isessential. BUN 19 mg/dL (Abnormal) Range: 7-18 GLU 98 mg/dL (Normal) Range: 74-106 Comments: Please note revised GLUCOSE reference range lfcjxactj63/02/2018. 00-Dek-762215:01 Hemoglobin A1c Comments: [facility] [address] [facility] [address]. [place], [place], [phone] HGB A1C 5.8 % (Normal) Range: 4.2-6.3 :12 CBC W/Diff, Automated Comments: [facility] [address]. [place], [place], [address] Absolute Lymph 1.51 {X10_3/ul} (Normal) Range: 0.83-4.51 Absolute Neut 2.9 {X10_3/uL} (Normal) Range: 2.0-7.7 IM GRAN % 0.200 % (Normal) Range: 0.0-0.9 Comments: IG% - Immature Granulocytes (promyelocytes, myelocytes andmetamyelocytes) > 1% indicates that a LEFT SHIFT is Present. BASO% 0.4 % (Normal) Range: 0-1 EO% 4.5 % (Normal) Range: 0-5 MONO% 9.3 % (Normal) Range: 0-10 LY% 29.3 % (Normal) Range: 19-41 NEUT% 56.3 % (Normal) Range: 47-70 MPV 9.3 fL (Normal) Range: 6.2-12.0 PLT 239 K/mm3 (Normal) Range: 150-450 RDW SD 52.0 fL (Abnormal) Range: 35.1-43.9 RDW CV 15.5 % (Abnormal) Range: 11.6-14.6 MCHC 31.6 {g/gl} (Abnormal) Range: 32-36 MCH 29.4 pg (Normal) Range: 27.0-32.0 MCV 92.9 fL (Normal) Range: 80-94 HCT 40.8 % (Normal) Range: 40-54 HGB 12.9 g/dL (Abnormal) Range: 13.0-16.5 RBC 4.39 {M/mm3} (Abnormal) Range: 4.6-6.2 WBC 5.2 K/mm3 (Normal) Range: 4.4-11.0 56-Esp-90730:12 Comprehensive Metabolic Profil Comments: [facility] [address] [place], [address] GAP 6 (Normal) Range: 5-15 CO2 30.0 mmol/L (Normal) Range: 21.0-32.0 CL 102 mmol/L (Normal) Range: 98-107 K 4.0 mmol/L (Normal) Range: 3.5-5.1 NA 138 mmol/L (Normal) Range: 136-145 T BILI 0.50 mg/dL (Normal) Range: 0.20-1.00 ALT 34 U/L (Normal) Range: 12-78 ALK P 64 U/L (Normal) Range: 45-117 AST 23 U/L (Normal) Range: 15-37 CA 8.9 mg/dL (Normal) Range: 8.5-10.1 A/G 1.1 {RATIO} (Normal) Range: 0.9-2.4 GLOB 3.5 g/dL (Normal) Range: 2.2-4.2 ALB 3.7 g/dL (Normal) Range: 3.4-5.0 Comments: Please note revised Albumin AND Globulin reference rangeeffective 2016. T PROT 7.2 g/dL (Normal) Range: 6.4-8.2 BUN/CRE 17.0 {RATIO} (Normal) Range: 10-20 EST GFR - AA 114 mL/min (Normal) Comments: GFR Calc EST GFR 94 mL/min (Normal) Comments: Non- GFR Calc CREAT,SERUM 0.88 mg/dL (Normal) Range: 0.70-1.30 Comments: The validity of the calculated GFR AND GFRAA in patients over70 years has not been determined. Clinical correlation isessential. BUN 15 mg/dL (Normal) Range: 7-18 GLU 96 mg/dL (Normal) Range: 70-110 45-Mkd-162617:11 Pathology Report Comments: PERFORMED BY: KWC[facility]T [facility] [place] Cyto [id number] [facility] [id number] BY: [facility] Dermatopathology L[address] [id number] Information: [id number] See MATER Comments: Material submitted: .RIGHT LOWER LEG SHAVE BIOPSYClinician provided ICD-10:D48.5Clinical history: .FLAT RED LESION W/SCALE Note (Normal) ; USED TO BE RAISED / FLAKED OFFDiagnosis:IRRITATED SEBORRHEIC KERATOSIS WITH PATCHY LICHENOID TISSUEREACTION OVERLYING VASCULAR P RO LIFERATIVE STASIS CHANGE..COMMENT:THERE IS NO EVIDENCE OF MALIGNANCY IN THESE SECTIONS.TG/12/09/2016Electronically signed: .Kimberly Valentino MD, DermatopathologistGross description: .1 CONTAINER, FORMALIN-FILLED, LABELED WITH PATIENT IDENTIFICATION.RIGHT LOWE R LEG SHAVE BIOPSY:1 SHAVE BIOPSY OF ANDRADE-YELLOW SKIN MEASURING 1.2 X 0.7 X 0.1 CM. THESURGICAL MARGIN IS INKED BLACK. THE SPECIMEN IS TRISECTED. IT ISSUBMITTED ENTIRELY IN CASSETTE(S) A./LMSLMS/LMSPatho logist provided ICD-10:L82.1, L44.9, I87.9CPT .440069 :42 CBC W/Diff, Automated Comments: DR SANTOS ORDERED CMP CBCDDR SANKET ORDERED A1C LIPID CMP LOREN CBCD TSH [facility] [address] [place], [place], [phone] Absolute Lymph 2.23 {X10_3/ul} (Normal) Range: 0.83-4.51 Absolute Neut 4.3 {X10_3/uL} (Normal) Range: 2.0-7.7 IM GRAN % 0.100 % (Normal) Range: 0.0-0.9 Comments: IG% - Immature Granulocytes (promyelocytes, myelocytes andmetamyelocytes) > 1% indicates that a LEFT SHIFT is Present. BASO% 0.3 % (Normal) Range: 0-1 EO% 4.5 % (Normal) Range: 0-5 MONO% 7.4 % (Normal) Range: 0-10 LY% 30.1 % (Normal) Range: 19-41 NEUT% 57.6 % (Normal) Range: 47-70 MPV 9.7 fL (Normal) Range: 6.2-12.0 PLT 245 K/mm3 (Normal) Range: 150-450 RDW SD 49.0 fL (Abnormal) Range: 35.1-43.9 RDW CV 15.0 % (Abnormal) Range: 11.6-14.6 MCHC 31.9 {g/gl} (Abnormal) Range: 32-36 MCH 28.8 pg (Normal) Range: 27.0-32.0 MCV 90.4 fL (Normal) Range: 80-94 HCT 40.5 % (Normal) Range: 40-54 HGB 12.9 g/dL (Abnormal) Range: 13.0-16.5 RBC 4.48 {M/mm3} (Abnormal) Range: 4.6-6.2 WBC 7.4 K/mm3 (Normal) Range: 4.4-11.0 3-Pdd-369293:42 Comprehensive Metabolic Profil Comments: DR SANTOS ORDERED CMP CBCDDR SANKET ORDERED A1C LIPID CMP LOREN CBCD TSH [facility] [address] [place], [address] GAP 9 (Normal) Range: 5-15 CO2 26.0 mmol/L (Normal) Range: 21.0-32.0 CL 101 mmol/L (Normal) Range: 98-107 K 4.1 mmol/L (Normal) Range: 3.5-5.1 NA 136 mmol/L (Normal) Range: 136-145 T BILI 0.30 mg/dL (Normal) Range: 0.20-1.00 ALT 45 U/L (Normal) Range: 12-78 ALK P 70 U/L (Normal) Range: 45-117 AST 33 U/L (Normal) Range: 15-37 CA 8.9 mg/dL (Normal) Range: 8.5-10.1 A/G 1.2 {RATIO} (Normal) Range: 0.9-2.4 GLOB 3.4 g/dL (Normal) Range: 2.3-3.5 ALB 4.0 g/dL (Normal) Range: 3.4-5.0 T PROT 7.4 g/dL (Normal) Range: 6.4-8.2 BUN/CRE 17.3 {RATIO} (Normal) Range: 10-20 EST GFR - AA 108 mL/min (Normal) Comments: GFR Calc EST GFR 89 mL/min (Normal) Comments: Non- GFR Calc CREAT,SERUM 0.93 mg/dL (Normal) Range: 0.70-1.30 Comments: The validity of the calculated GFR AND GFRAA in patients over70 years has not been determined. Clinical correlation isessential. BUN 16 mg/dL (Normal) Range: 7-18 GLU 93 mg/dL (Normal) Range: 70-110 8-Wtb-533100:42 Hemoglobin A1c Comments: DR SANTOS ORDERED CMP CBCJANNETTE COLES ORDERED A1C LIPID CMP LOREN CBCD [facility] [address]ubgp[address] [place], [address] HGB A1C 6.0 % (Normal) Range: 4.2-6.3 8-Yty-846321:42 Lipid Profile Comments: DR SANTOS ORDERED CMP CBCDDR SANKET ORDERED A1C LIPID CMP LOREN CBCD TSH [facility] [address]pmia[address] [place], [address] VLDL 14 mg/dL (Normal) Range: 5-40 LDL 79 mg/dL (Normal) Range: 0-130 HDL 57 mg/dL (Normal) Comments: The drugs N-Acetylcysteine and Metamizole may falselydepress this assay. Reference Range HDL <40 mg/dL Low HDL Cholesterol HDL >or= 60 mg/dL High HDL Cholesterol TRIG 68 mg/dL (Normal) Comments: The drugs N-Acetylcysteine and Metamizole may falselydepress this assay.Serum Triglycerides Reference Interval Normal <150 mg/dL Borderline high 150 - 199 mg/dL High 200 - 499 mg/dL Very High > or = 500 mg/dL CHOL 150 mg/dL (Normal) Comments: <200 mg/dL Desirable 200-240 mg/dL Borderline >240 mg/dL High Risk 8-Xll-054410:42 Microalb:Creat Ratio,Random UR Comments: DR SANTOS ORDERED CMP CBCDDR SANKET ORDERED A1C LIPID CMP LOREN CBCD TSH [facility] [address]ulbl[address] [place], [address] MALB:CREAT Test not performed {mg/g_CRE} (Normal) MICROALBUMIN,UR < 5.0 mg/L (Normal) UR CREAT 17.60 mg/dL (Normal) 2-Lzh-520619:42 Thyroid Stim Hormone (TSH) Comments: DR SANTOS ORDERED CMP CBCDDR SANKET ORDERED A1C LIPID CMP LOREN CBCD TSH [facility] [address]dt[address] [place], [address] TSH 1.18 {uIU/mL} (Normal) Range: 0.358-3.74 3-Qdv-985208:42 Urinalysis, Complete Comments: DR SANTOS ORDERED CMP CBCDDR SANKET ORDERED A1C LIPID CMP LOREN CBCD TSH UACHow was Urine Obtained? CLEAN [facility] [address] [place], [address] MUCUS, URINE 0 SEEN {/hpf} (Normal) BACTERIA 0 SEEN {/hpf} (Normal) SQUAM EPI 0 SEEN {/hpf} (Normal) Range: 0-5 RBC-UA 0 SEEN {/hpf} (Normal) Range: 0-5 WBC 0 SEEN {/hpf} (Normal) Range: 0-5 LEUK ESTERASE Negative /ul (Normal) OCCULT BLOOD-UR Negative /ul (Normal) NITRITE UR Negative (Normal) UROBILI Normal mg/dL (Normal) PROT DIPSTX Negative mg/dL (Normal) pH UR 6.5 (Normal) Range: 5.0 - 8.0 SP.GR. DIPSTX 1.010 (Normal) Range: 1.002-1.030 KETONE UR Negative mg/dL (Normal) BILIRUBIN URINE Negative mg/dL (Normal) GLUCOSE, UR Normal mg/dL (Normal) CLARITY Clear (Normal) COLOR Yellow (Normal) :26 CBC W/Diff, Automated Comments: [facility] [address]om[address]aks[address] [place], [place], [address] Absolute Lymph 1.18 {X10_3/ul} (Normal) Range: 0.83-4.51 Absolute Neut 3.3 {X10_3/uL} (Normal) Range: 2.0-7.7 IM GRAN % 0.200 % (Normal) Range: 0.0-0.9 Comments: IG% - Immature Granulocytes (promyelocytes, myelocytes andmetamyelocytes) > 1% indicates that a LEFT SHIFT is Present. BASO% 0.4 % (Normal) Range: 0-1 EO% 5.7 % (Abnormal) Range: 0-5 MONO% 8.3 % (Normal) Range: 0-10 LY% 22.3 % (Normal) Range: 19-41 NEUT% 63.1 % (Normal) Range: 47-70 MPV 9.4 fL (Normal) Range: 6.2-12.0 PLT 235 K/mm3 (Normal) Range: 150-450 RDW SD 50.5 fL (Abnormal) Range: 35.1-43.9 RDW CV 15.2 % (Abnormal) Range: 11.6-14.6 MCHC 31.6 {g/gl} (Abnormal) Range: 32-36 MCH 28.9 pg (Normal) Range: 27.0-32.0 MCV 91.6 fL (Normal) Range: 80-94 HCT 41.2 % (Normal) Range: 40-54 HGB 13.0 g/dL (Normal) Range: 13.0-16.5 RBC 4.50 {M/mm3} (Abnormal) Range: 4.6-6.2 WBC 5.3 K/mm3 (Normal) Range: 4.4-11.0 :26 Comprehensive Metabolic Profil Comments: [facility] [address]ff[address]acc[address] [place], [place], [id number] GAP 6 (Normal) Range: 5-15 CO2 31.0 mmol/L (Normal) Range: 21.0-32.0 CL 103 mmol/L (Normal) Range: 98-107 K 4.1 mmol/L (Normal) Range: 3.5-5.1 NA 140 mmol/L (Normal) Range: 136-145 T BILI 0.40 mg/dL (Normal) Range: 0.20-1.00 ALT 31 U/L (Normal) Range: 12-78 ALK P 65 U/L (Normal) Range: 45-117 AST 19 U/L (Normal) Range: 15-37 CA 8.7 mg/dL (Normal) Range: 8.5-10.1 A/G 1.1 {RATIO} (Normal) Range: 0.9-2.4 GLOB 3.5 g/dL (Normal) Range: 2.3-3.5 ALB 3.7 g/dL (Normal) Range: 3.4-5.0 T PROT 7.2 g/dL (Normal) Range: 6.4-8.2 BUN/CRE 16.4 {RATIO} (Normal) Range: 10-20 EST GFR - AA 110 mL/min (Normal) Comments: GFR Calc EST GFR 91 mL/min (Normal) Comments: Non- GFR Calc CREAT,SERUM 0.91 mg/dL (Normal) Range: 0.70-1.30 Comments: The validity of the calculated GFR AND GFRAA in patients over70 years has not been determined. Clinical correlation isessential. BUN 15 mg/dL (Normal) Range: 7-18 GLU 95 mg/dL (Normal) Range: 70-110 :26 Hemoglobin A1c Comments: [facility] [address] [place], [place], [id number] HGB A1C 6.1 % (Normal) Range: 4.2-6.3 :26 Lipid Profile Comments: [facility] [address] [place], [place], [address] VLDL 12 mg/dL (Normal) Range: 5-40 LDL 92 mg/dL (Normal) Range: 0-130 HDL 53 mg/dL (Normal) Comments: The drugs N-Acetylcysteine and Metamizole may falsely deressthis assay. Reference Range HDL <40 mg/dL Low HDL Cholesterol HDL >or= 60 mg/dL High HDL Cholesterol TRIG 61 mg/dL (Normal) Comments: The drugs N-Acetylcysteine and Metamizole may falsely deressthis assay.Serum Triglycerides Reference Interval Normal <150 mg/dL Borderline high 150 - 199 mg/dL High 200 - 499 mg/dL Very High > or = 500 mg/dL CHOL 157 mg/dL (Normal) Comments: <200 mg/dL Desirable 200-240 mg/dL Borderline >240 mg/dL High Risk :26 Microalb:Creat Ratio,Random UR Comments: [facility] [address] [place], [address] MALB:CREAT Test not performed {mg/g_CRE} (Normal) MICROALBUMIN,UR < 5.0 mg/L (Normal) UR CREAT 76.30 mg/dL (Normal) :26 Thyroid Stim Hormone (TSH) Comments: [facility] [address] [place], [place], [id number] TSH 1.08 {uIU/mL} (Normal) Range: 0.358-3.74 :26 Urinalysis, Complete Comments: How was Urine Obtained? [facility] [address] [place], [place], [address] MUCUS, URINE 0 SEEN {/hpf} (Normal) BACTERIA 0 SEEN {/hpf} (Normal) SQUAM EPI 0 SEEN {/hpf} (Normal) Range: 0-5 RBC-UA 0 SEEN {/hpf} (Normal) Range: 0-5 WBC 0 SEEN {/hpf} (Normal) Range: 0-5 LEUK ESTERASE Negative /ul (Normal) OCCULT BLOOD-UR Negative /ul (Normal) NITRITE UR Negative (Normal) UROBILI Normal mg/dL (Normal) PROT DIPSTX Negative mg/dL (Normal) pH UR 7.0 (Normal) Range: 5.0 - 8.0 SP.GR. DIPSTX 1.005 (Normal) Range: 1.002-1.030 KETONE UR Negative mg/dL (Normal) BILIRUBIN URINE Negative mg/dL (Normal) GLUCOSE, UR Normal mg/dL (Normal) CLARITY Clear (Normal) COLOR Yellow (Normal) :26 Vitamin D,25 Hydroxy Comments: [facility] [address] [facility] [place], [place], [address] Vitamin D 25-OH 44.6 ng/mL (Normal) Comments: Vitamin D 25(OH) Status Range Deficiency <20 ng/mL (50nmol/L) Insuffciency 20 - 30 ng/mL (50 - 75 nmol/L) Sufficiency 30 - 100 ng/mL (75 - 250 nmol/L) Toxicity >100 ng/mL (>250 nmol/L) 43-Bag-122279:32 CBC W/Diff, Automated Comments: [facility] [address] [facility] [place], [place], [address] Absolute Lymph 1.73 {X10_3/ul} (Normal) Range: 0.83-4.51 Absolute Neut 4.5 {X10_3/uL} (Normal) Range: 2.0-7.7 IM GRAN % 0.400 % (Normal) Range: 0.0-0.9 Comments: IG% - Immature Granulocytes (promyelocytes, myelocytes andmetamyelocytes) > 1% indicates that a LEFT SHIFT is Present. BASO% 0.3 % (Normal) Range: 0-1 EO% 4.3 % (Normal) Range: 0-5 MONO% 8.7 % (Normal) Range: 0-10 LY% 23.9 % (Normal) Range: 19-41 NEUT% 62.4 % (Normal) Range: 47-70 MPV 10.0 fL (Normal) Range: 6.2-12.0 PLT 207 K/mm3 (Normal) Range: 150-450 RDW SD 49.8 fL (Abnormal) Range: 35.1-43.9 RDW CV 15.3 % (Abnormal) Range: 11.6-14.6 MCHC 31.4 {g/gl} (Abnormal) Range: 32-36 MCH 29.2 pg (Normal) Range: 27.0-32.0 MCV 92.8 fL (Normal) Range: 80-94 HCT 42.3 % (Normal) Range: 40-54 HGB 13.3 g/dL (Normal) Range: 13.0-16.5 RBC 4.56 {M/mm3} (Abnormal) Range: 4.6-6.2 WBC 7.3 K/mm3 (Normal) Range: 4.4-11.0 88-Lba-799267:32 Comprehensive Metabolic Profil Comments: [facility] [address] [place], [place], [address] GAP 6 (Normal) Range: 5-15 CO2 30.0 mmol/L Range: 21.0-32.0 (Normal) CL 106 mmol/L (Normal) Range: 98-107 K 4.0 mmol/L (Normal) Range: 3.5-5.1 NA 142 mmol/L (Normal) Range: 136-145 T BILI 0.20 mg/dL (Normal) Range: 0.20-1.00 ALT 29 U/L (Normal) Range: 12-78 ALK P 72 U/L (Normal) Range: 45-117 AST 15 U/L (Normal) Range: 15-37 CA 8.5 mg/dL (Normal) Range: 8.5-10.1 A/G 1.1 {RATIO} Range: 0.9-2.4 (Normal) GLOB 3.3 g/dL (Normal) Range: 2.3-3.5 ALB 3.7 g/dL (Normal) Range: 3.4-5.0 T PROT 7.0 g/dL (Normal) Range: 6.4-8.2 BUN/CRE 17.9 {RATIO} Range: 10-20 (Normal) EST GFR - AA 112 mL/min (Normal) Comments: GFR Calc EST GFR 93 mL/min (Normal) Comments: Non- GFR Calc CREAT,SERUM 0.90 mg/dL (Normal) Range: 0.70-1.30 Comments: The validity of the calculated GFR AND GFRAA in patients over70 years has not been determined. Clinical correlation isessential. BUN 16 mg/dL (Normal) Range: 7-18 GLU 111 mg/dL Range: 70-110 (Abnormal) Comments: Fasting Glucose result from 110 to <126 mg/dLsuggests IMPAIRED HOMEOSTASIS per A.D.A. criteria. : Gastric Biopsy See Note (Normal) Comments: [facility] [address] [place], [place], [address] 00 Comments: Patient: WILLA FREITAS : 1960 (55/M) Acct Num: [id number] Phys: Long Colmenares Unit Num: [id number] Loc: EN Specimen: [id number] Received: 04/26/16847 Spec Type: Gastric B x TISSUES TISSUES: COMMENT The results of immunohistochemistry for Helicobacter pylori will be reported separately ([id number]). GROSS DESCRIPTION Received is one container labele d with the patient's name and designated antrumbody biopsy. The specimen consists of multiple irregular fragments of light andrade soft tissue that in aggregate measure 0.5 x 0.3 x 0.1 cm. The specimen is totally submitted in one cassette. / SJ:xochitl 04/26/16 TC:3 CPT: 35430 HEADER OPERATION: EGD PRE-OP DIAGNOSIS: Epigastric pain TISSUE SUBMITTED: Antrum body biopsy, rule out gastritis MICROSCOPIC DESCRIPTION Slides are reviewed. The specimen shows fragments of gastric mucosa with chronic inflammatory cell infiltrates in the lamina propria consisting of lymphocytes and plasma candace ls, consistent with mild chronic gastritis. MICROSCOPIC DIAGNOSIS Antrum body, biopsy: Mild gastritis. TUYET:xochitl 04/27/16 Signed Cy Rdz 04/27/16 <signature on file> : IMMUNOHISTOCHEMISTRY See Note (Normal) Comments: [facility] [address] [place], [place], [id number] 00 Comments: Patient: WILLA FREITAS : 1960 (55/M) Acct Num: [id number] Phys: Long Colmenares Unit Num: [id number] Loc: EN Specimen: [id number] Received: 04/27/161001 Spec Type: IMMUNO TISSUES TISSUES: SPECIMEN INFORMATION: Tissue Source: Antrum body biopsy Clinical Info: Epigastric pain Specimen Number: [id number] CPT code: 77365 METHODOLOGY: Deparaffiniz ed sections of prefer/formalin-fixed tissue or PAP/DQ stained slides are incubated with monoclonal/polyclonal antibodies/oligonucleotide probes. Localization is made via biotin free immunoperoxidase m ethod. Appropriate controls are performed and reacted as expected. Results on target cell population are indicated in the following table: RESULTS: ANTIBODY / CLONE RESULT H Pylori (polyclonal) negative These tests were developed and their performance characteristics determined by [facility]. They may not have been cleared or a pproved by the [place] Food and Drug Administration. The FDA has determined that such clearance or approval is not necessary. INTERPRETATION: Antrum body biopsy: Negative for Helicobacter pylori or ganisms. SJ:xochitl 04/30/16 PHYSICIAN AND INSTITUTION [address] [address] Signed Cy Rdz 04/30/16 <signature on file> [id number] Hemoglobin A1c Comments: [facility] [id number] [place], [address] HGB A1C 5.8 % (Normal) Range: 4.2-6.3 :58 CBC W/Diff, Automated Comments: [facility] [id number] [place], [address] Absolute Lymph 1.42 {X10_3/ul} (Normal) Range: 0.83-4.51 Absolute Neut 3.6 {X10_3/uL} (Normal) Range: 2.0-7.7 IM GRAN % 0.300 % (Normal) Range: 0.0-0.9 Comments: IG% - Immature Granulocytes (promyelocytes, myelocytes andmetamyelocytes) > 1% indicates that a LEFT SHIFT is Present. BASO% 0.2 % (Normal) Range: 0-1 EO% 5.1 % (Abnormal) Range: 0-5 MONO% 10.3 % (Abnormal) Range: 0-10 LY% 23.6 % (Normal) Range: 19-41 NEUT% 60.5 % (Normal) Range: 47-70 MPV 9.7 fL (Normal) Range: 6.2-12.0 PLT 244 K/mm3 (Normal) Range: 150-450 RDW SD 48.8 fL (Abnormal) Range: 35.1-43.9 RDW CV 14.9 % (Abnormal) Range: 11.6-14.6 MCHC 32.2 {g/gl} (Normal) Range: 32-36 MCH 29.8 pg (Normal) Range: 27.0-32.0 MCV 92.3 fL (Normal) Range: 80-94 HCT 39.7 % (Abnormal) Range: 40-54 HGB 12.8 g/dL (Abnormal) Range: 13.0-16.5 RBC 4.30 {M/mm3} (Abnormal) Range: 4.6-6.2 WBC 6.0 K/mm3 (Normal) Range: 4.4-11.0 29-Flb-31260:58 Comprehensive Metabolic Profil Comments: [facility] [address] [place], [address] GAP 6 (Normal) Range: 5-15 CO2 30.0 mmol/L (Normal) Range: 21.0-32.0 CL 106 mmol/L (Normal) Range: 98-107 K 4.2 mmol/L (Normal) Range: 3.5-5.1 NA 142 mmol/L (Normal) Range: 136-145 T BILI 0.40 mg/dL (Normal) Range: 0.20-1.00 ALT 31 U/L (Normal) Range: 12-78 ALK P 62 U/L (Normal) Range: 45-117 AST 23 U/L (Normal) Range: 15-37 CA 8.5 mg/dL (Normal) Range: 8.5-10.1 A/G 1.2 {RATIO} (Normal) Range: 0.9-2.4 GLOB 3.1 g/dL (Normal) Range: 2.3-3.5 ALB 3.8 g/dL (Normal) Range: 3.4-5.0 T PROT 6.9 g/dL (Normal) Range: 6.4-8.2 BUN/CRE 19.5 {RATIO} (Normal) Range: 10-20 EST GFR - AA 116 mL/min (Normal) Comments: GFR Calc EST GFR 96 mL/min (Normal) Comments: Non- GFR Calc CREAT,SERUM 0.87 mg/dL (Normal) Range: 0.70-1.30 Comments: The validity of the calculated GFR AND GFRAA in patients over70 years has not been determined. Clinical correlation isessential. BUN 17 mg/dL (Normal) Range: 7-18 GLU 99 mg/dL (Normal) Range: 70-110 30-Uxo-012538:00 Hemoglobin A1c Comments: [facility] Aq[address] [facility] [place], [place], [id number] HGB A1C 5.9 % (Normal) Range: 4.2-6.3 69-Gga-724296:02 CBC W/Diff, Automated Comments: DR SANTOS ORDERED CMP CBCDDR SANKET ORDERED LIPID TSH CBCD C[facility] [address] [facility] [place], [place], [id number] Absolute Lymph 1.32 {X10_3/ul} (Normal) Range: 0.83-4.51 Absolute Neut 5.4 {X10_3/uL} (Normal) Range: 2.0-7.7 IM GRAN % 0.300 % (Normal) Range: 0.0-0.9 Comments: IG% - Immature Granulocytes (promyelocytes, myelocytes andmetamyelocytes) > 1% indicates that a LEFT SHIFT is Present. BASO% 0.4 % (Normal) Range: 0-1 EO% 5.9 % (Abnormal) Range: 0-5 MONO% 8.3 % (Normal) Range: 0-10 LY% 16.8 % (Abnormal) Range: 19-41 NEUT% 68.3 % (Normal) Range: 47-70 MPV 9.5 fL (Normal) Range: 6.2-12.0 PLT 252 K/mm3 (Normal) Range: 150-450 RDW SD 49.6 fL (Abnormal) Range: 35.1-43.9 RDW CV 15.0 % (Abnormal) Range: 11.6-14.6 MCHC 32.1 {g/gl} (Normal) Range: 32-36 MCH 30.1 pg (Normal) Range: 27.0-32.0 MCV 93.7 fL (Normal) Range: 80-94 HCT 40.2 % (Normal) Range: 40-54 HGB 12.9 g/dL (Abnormal) Range: 13.0-16.5 RBC 4.29 {M/mm3} (Abnormal) Range: 4.6-6.2 WBC 7.8 K/mm3 (Normal) Range: 4.4-11.0 61-Lgo-853176:02 Comprehensive Metabolic Profil Comments: DR SANTOS ORDERED CMP CBCDDR SANKET ORDERED LIPID TSH CBCD CMP [facility] [address] [place], [place], [id number] GAP 6 (Normal) Range: 5-15 CO2 28.0 mmol/L (Normal) Range: 21.0-32.0 CL 106 mmol/L (Normal) Range: 98-107 K 4.2 mmol/L (Normal) Range: 3.5-5.1 NA 140 mmol/L (Normal) Range: 136-145 T BILI 0.50 mg/dL (Normal) Range: 0.20-1.00 ALT 38 U/L (Normal) Range: 12-78 ALK P 73 U/L (Normal) Range: 50-136 AST 20 U/L (Normal) Range: 15-37 CA 8.3 mg/dL (Abnormal) Range: 8.5-10.1 A/G 1.1 {RATIO} (Normal) Range: 0.9-2.4 GLOB 3.4 g/dL (Normal) Range: 2.3-3.5 ALB 3.6 g/dL (Normal) Range: 3.4-5.0 T PROT 7.0 g/dL (Normal) Range: 6.4-8.2 BUN/CRE 18.7 {RATIO} (Normal) Range: 10-20 EST GFR - AA 119 mL/min (Normal) Comments: GFR Calc EST GFR 98 mL/min (Normal) Comments: Non- GFR Calc CREAT,SERUM 0.86 mg/dL (Normal) Range: 0.70-1.30 Comments: The validity of the calculated GFR AND GFRAA in patients over70 years has not been determined. Clinical correlation isessential. BUN 16 mg/dL (Normal) Range: 7-18 GLU 93 mg/dL (Normal) Range: 70-110 89-Vka-037466:02 Lipid Profile Comments: DR SANTOS ORDERED [facility] ORDERED LIPID TSH CBCD [facility] [address] [place] [place], [address] VLDL 11 mg/dL (Normal) Range: 5-40 LDL 78 mg/dL (Normal) Range: 0-130 HDL 52 mg/dL (Normal) Comments: The drugs N-Acetylcysteine and Metamizole may falsely deressthis assay. Reference Range HDL <40 mg/dL Low HDL Cholesterol HDL >or= 60 mg/dL High HDL Cholesterol TRIG 54 mg/dL (Normal) Comments: The drugs N-Acetylcysteine and Metamizole may falsely deressthis assay.Serum Triglycerides Reference Interval Normal <150 mg/dL Borderline high 150 - 199 mg/dL High 200 - 499 mg/dL Very High > or = 500 mg/dL CHOL 141 mg/dL (Normal) Comments: <200 mg/dL Desirable 200-240 mg/dL Borderline >240 mg/dL High Risk [id number]-Vlb-992437:02 Thyroid Stim Hormone (TSH) Comments: DR SANTOS ORDERED [facility] SANKET ORDERED LIPID TSH CBCD [facility] [address] [place], [place], [id number] TSH 0.80 {uIU/mL} (Normal) Range: 0.358-3.74 75-Gyz-553359:02 Vitamin D,25 Hydroxy Comments: DR SANTOS ORDERED [facility] SANKET ORDERED LIPID TSH CBCD [facility] [address] [place], [address] Vitamin D 25-OH 50.7 ng/mL (Normal) Comments: Vitamin D 25(OH) Status Range Deficiency <20 ng/mL (50nmol/L) Insuffciency 20 - 30 ng/mL (50 - 75 nmol/L) Sufficiency 30 - 100 ng/mL (75 - 250 nmol/L) Toxicity >100 ng/mL (>250 nmol/L) :30 Hemoglobin A1c Comments: [facility] [address] [place], [place], [id number] HGB A1C 5.7 % (Normal) Range: 4.2-6.3 :30 Lipid Profile Comments: [facility] [address] [place], [place], [id number] VLDL 10 mg/dL (Normal) Range: 5-40 LDL 67 mg/dL (Normal) Range: 0-130 HDL 50 mg/dL (Normal) Comments: The drugs N-Acetylcysteine and Metamizole may falsely deressthis assay. Reference Range HDL <40 mg/dL Low HDL Cholesterol HDL >or= 60 mg/dL High HDL Cholesterol TRIG 48 mg/dL (Normal) Comments: The drugs N-Acetylcysteine and Metamizole may falsely deressthis assay.Serum Triglycerides Reference Interval Normal <150 mg/dL Borderline high 150 - 199 mg/dL High 200 - 499 mg/dL Very High > or = 500 mg/dL CHOL 127 mg/dL (Normal) Comments: <200 mg/dL Desirable 200-240 mg/dL Borderline >240 mg/dL High Risk :30 Microalb:Creat Ratio,Random UR Comments: [facility] [address] [place], [address] MALB:CREAT 3.7 {mg/g_CRE} (Normal) MICROALBUMIN,UR 6.1 mg/L (Normal) UR CREAT 163.00 mg/dL (Normal) :30 Thyroid Stim Hormone (TSH) Comments: [facility] [address] [place], [address] TSH 1.14 {uIU/mL} (Normal) Range: 0.358-3.74 :30 Urinalysis, Complete Comments: How was Urine Obtained? [facility] [address] [place], [address] MUCUS, URINE RARE {/hpf} (Normal) BACTERIA RARE {/hpf} (Normal) SQUAM EPI 0 SEEN {/hpf} (Normal) Range: 0-5 RBC-UA 0 SEEN {/hpf} (Normal) Range: 0-5 WBC 0-5 SEEN {/hpf} (Normal) Range: 0-5 LEUK ESTERASE Negative /ul (Normal) OCCULT BLOOD-UR Negative /ul (Normal) NITRITE UR Negative (Normal) UROBILI Normal mg/dL (Normal) PROT DIPSTX Negative mg/dL (Normal) pH UR 6.0 (Normal) Range: 5.0 - 8.0 SP.GR. DIPSTX 1.020 (Normal) Range: 1.002-1.030 KETONE UR 5 mg/dL (Abnormal) BILIRUBIN URINE Negative mg/dL (Normal) GLUCOSE, UR Normal mg/dL (Normal) CLARITY Clear (Normal) COLOR Yellow (Normal) 26-Tun-30572:30 Vitamin D,25 Hydroxy Comments: [facility] [address] [place], [place], [address] Vitamin D 25-OH 46.5 ng/mL (Normal) Comments: Vitamin D 25(OH) Status Range Deficiency <20 ng/mL (50nmol/L) Insuffciency 20 - 30 ng/mL (50 - 75 nmol/L) Sufficiency 30 - 100 ng/mL (75 - 250 nmol/L) Toxicity >100 ng/mL (>250 nmol/L) 28-Nhj-563263:29 CBC W/Diff, Automated Comments: [facility] [address] [place], [place], [address] Absolute Lymph 1.74 {X10_3/ul} (Normal) Range: 0.83-4.51 Absolute Neut 4.0 {X10_3/uL} (Normal) Range: 2.0-7.7 IM GRAN % 0.200 % (Normal) Range: 0.0-0.9 Comments: IG% - Immature Granulocytes (promyelocytes, myelocytes andmetamyelocytes) > 1% indicates that a LEFT SHIFT is Present. BASO% 0.3 % (Normal) Range: 0-1 EO% 3.7 % (Normal) Range: 0-5 MONO% 7.5 % (Normal) Range: 0-10 LY% 26.7 % (Normal) Range: 19-41 NEUT% 61.6 % (Normal) Range: 47-70 MPV 9.5 fL (Normal) Range: 6.2-12.0 PLT 218 K/mm3 (Normal) Range: 150-450 RDW SD 49.6 fL (Abnormal) Range: 35.1-43.9 RDW CV 14.8 % (Abnormal) Range: 11.6-14.6 MCHC 31.9 {g/gl} (Abnormal) Range: 32-36 MCH 29.3 pg (Normal) Range: 27.0-32.0 MCV 91.9 fL (Normal) Range: 80-94 HCT 40.8 % (Normal) Range: 40-54 HGB 13.0 g/dL (Normal) Range: 13.0-16.5 RBC 4.44 {M/mm3} (Abnormal) Range: 4.6-6.2 WBC 6.5 K/mm3 (Normal) Range: 4.4-11.0 86-Jgr-358744:29 Comprehensive Metabolic Profil Comments: [facility] [address] [place], [place], [address] GAP 4 (Abnormal) Range: 5-15 CO2 31.0 mmol/L (Normal) Range: 21.0-32.0 CL 105 mmol/L (Normal) Range: 98-107 K 4.2 mmol/L (Normal) Range: 3.5-5.1 NA 140 mmol/L (Normal) Range: 136-145 T BILI 0.40 mg/dL (Normal) Range: 0.20-1.00 ALT 40 U/L (Normal) Range: 12-78 ALK P 61 U/L (Normal) Range: 50-136 AST 28 U/L (Normal) Range: 15-37 CA 8.4 mg/dL (Abnormal) Range: 8.5-10.1 A/G 1.2 {RATIO} (Normal) Range: 0.9-2.4 GLOB 3.2 g/dL (Normal) Range: 2.3-3.5 ALB 3.8 g/dL (Normal) Range: 3.4-5.0 T PROT 7.0 g/dL (Normal) Range: 6.4-8.2 BUN/CRE 15.4 {RATIO} (Normal) Range: 10-20 EST GFR - AA 95 mL/min (Normal) Comments: GFR Calc EST GFR 78 mL/min (Normal) Comments: Non- GFR Calc CREAT,SERUM 1.04 mg/dL (Normal) Range: 0.70-1.30 Comments: The validity of the calculated GFR AND GFRAA in patients over70 years has not been determined. Clinical correlation isessential. BUN 16 mg/dL (Normal) Range: 7-18 GLU 116 mg/dL (Abnormal) Range: 70-110 Comments: Fasting Glucose result from 110 to <126 mg/dLsuggests IMPAIRED HOMEOSTASIS per A.D.A. criteria. 40-Sjb-682424:01 CBC W/Diff, Automated Comments: [facility] [address] [place], [place], [id number] ; ordered by Max Absolute Lymph 1.83 {X10_3/ul} (Normal) Range: 0.83-4.51 Absolute Neut 2.9 {X10_3/uL} (Normal) Range: 2.0-7.7 IM GRAN % 0.200 % (Normal) Range: 0.0-0.9 Comments: IG% - Immature Granulocytes (promyelocytes, myelocytes andmetamyelocytes) > 1% indicates that a LEFT SHIFT is Present. BASO% 0.2 % (Normal) Range: 0-1 EO% 4.2 % (Normal) Range: 0-5 MONO% 12.3 % (Abnormal) Range: 0-10 LY% 32.2 % (Normal) Range: 19-41 NEUT% 50.9 % (Normal) Range: 47-70 MPV 9.6 fL (Normal) Range: 6.2-12.0 PLT 229 K/mm3 (Normal) Range: 150-450 RDW SD 45.4 fL (Abnormal) Range: 35.1-43.9 RDW CV 13.7 % (Normal) Range: 11.6-14.6 MCHC 32.5 {g/gl} (Normal) Range: 32-36 MCH 30.1 pg (Normal) Range: 27.0-32.0 MCV 92.6 fL (Normal) Range: 80-94 HCT 44.0 % (Normal) Range: 40-54 HGB 14.3 g/dL (Normal) Range: 13.0-16.5 RBC 4.75 {M/mm3} (Normal) Range: 4.6-6.2 WBC 5.7 K/mm3 (Normal) Range: 4.4-11.0 40-Uxe-650558:01 Comprehensive Metabolic Profil Comments: [facility] [address] [place], [address] GAP 5 (Normal) Range: 5-15 CO2 30.0 mmol/L (Normal) Range: 21.0-32.0 CL 105 mmol/L (Normal) Range: 98-107 K 4.2 mmol/L (Normal) Range: 3.5-5.1 NA 140 mmol/L (Normal) Range: 136-145 T BILI 0.40 mg/dL (Normal) Range: 0.20-1.00 ALT 36 U/L (Normal) Range: 12-78 ALK P 72 U/L (Normal) Range: 50-136 AST 17 U/L (Normal) Range: 15-37 CA 8.8 mg/dL (Normal) Range: 8.5-10.1 A/G 1.1 {RATIO} (Normal) Range: 0.9-2.4 GLOB 3.5 g/dL (Normal) Range: 2.3-3.5 ALB 4.0 g/dL (Normal) Range: 3.4-5.0 T PROT 7.5 g/dL (Normal) Range: 6.4-8.2 BUN/CRE 18.6 {RATIO} (Normal) Range: 10-20 EST GFR - AA 103 mL/min (Normal) Comments: GFR Calc EST GFR 85 mL/min (Normal) Comments: Non- GFR Calc CREAT,SERUM 0.97 mg/dL (Normal) Range: 0.70-1.30 Comments: The validity of the calculated GFR AND GFRAA in patients over70 years has not been determined. Clinical correlation isessential. BUN 18 mg/dL (Normal) Range: 7-18 GLU 87 mg/dL (Normal) Range: 70-110 7-Toy-928241:24 Alanine Aminotransferas (SGPT) Comments: [facility] [address] [place], [phone] ALT 33 U/L (Normal) Range: 12-78 2-Lvo-067969:24 Albumin, Serum Comments: [place] [address] [address] [place], [phone] ALB 3.6 g/dL (Normal) Range: 3.4-5.0 8-Cna-818017:24 Alkaline Phosphatase Comments: [address] [place], [phone] ALK P 71 U/L (Normal) Range: 50-136 4-Dje-502969:24 AST(SGOT) Comments: [address] [place], [phone] AST 26 U/L (Normal) Range: 15-37 Comments: Slight Hemolysis, Result may be falsely increased. 0-Jjj-975060:24 Bilirubin, Total Comments: [address] [place], [id number] T BILI 0.20 mg/dL (Normal) Range: 0.20-1.00 8-Icr-679231:24 BUN 17 mg/dL (Normal) Comments: [address] [place], [id number] Range: 7-18 0-Adn-193848:24 Calcium,Total Comments: [address] [place] [place], [phone] CA 8.3 mg/dL (Abnormal) Range: 8.5-10.1 2-Pky-670233:24 CBC W/Diff, Automated Comments: [address] [place], [phone] Absolute Lymph 1.86 {X10_3/ul} (Normal) Range: 0.83-4.51 Absolute Neut 3.1 {X10_3/uL} (Normal) Range: 2.0-7.7 IM GRAN % 0.300 % (Normal) Range: 0.0-0.9 Comments: IG% - Immature Granulocytes (promyelocytes, myelocytes andmetamyelocytes) > 1% indicates that a LEFT SHIFT is Present. BASO% 0.2 % (Normal) Range: 0-1 EO% 5.4 % (Abnormal) Range: 0-5 MONO% 10.6 % (Abnormal) Range: 0-10 LY% 31.4 % (Normal) Range: 19-41 NEUT% 52.1 % (Normal) Range: 47-70 MPV 9.9 fL (Normal) Range: 6.2-12.0 PLT 247 K/mm3 (Normal) Range: 150-450 RDW SD 47.5 fL (Abnormal) Range: 35.1-43.9 RDW CV 14.0 % (Normal) Range: 11.6-14.6 MCHC 32.1 {g/gl} (Normal) Range: 32-36 MCH 30.3 pg (Normal) Range: 27.0-32.0 MCV 94.4 fL (Abnormal) Range: 80-94 HCT 42.1 % (Normal) Range: 40-54 HGB 13.5 g/dL (Normal) Range: 13.0-16.5 RBC 4.46 {M/mm3} (Abnormal) Range: 4.6-6.2 WBC 5.9 K/mm3 (Normal) Range: 4.4-11.0 7-Ejt-880157:24 Glucose Comments: [facility] [address] [place], [address] GLU 99 mg/dL (Normal) Range: 70-110 6-Jmu-197495:24 Hepatitis C Antibodies Comments: [facility] (refer to report for specific site)refer to report for address and phone number; [facility] HEP C AB <0.1 {s/co_ratio} (Normal) Range: 0.0-0.9 Comments: Negative: < 0.8 Indeterminate: 0.8 - 0.9 Positive: > 0.9 In order to reduce the incidence of a false positive result, the CDC recommends that all s/co ratios between 1.0 and 10.9 be confirmed by a more specific supplemental or PCR testing. [facility] Ab w/Reflex to Verification test #[id number]. 8-Jyd-206852:24 Lyme AB/Total Immuno Comments: [facility] (refer to report for specific site)refer to report for address and phone number LYME Comments: TEST RESULT LIMITSLyme, Total Ab Test/ReflexLyme IgG/IgM Ab <0.91 ISR 0.00 - 0.90 Negative <0.91 AB (Normal) Equivocal 0.91 - 1.09 Positive >1.09 TESTING [place]FORMED [place] [facility] [address] RIGINAL REPORT ON FILE IN LAB CONTAINS ADDITIONAL TEST SITE INFORMATION. :24 Protein Electroph, S Comments: [facility] (refer to report for specific site)refer to report for address and phone number NOTE: Comment (Normal) Comments: The SPE pattern appears essentially unremarkable. Evidenceof monoclonal protein is not apparent. INTERPRETATION Comment (Normal) Comments: Protein electrophoresis scan will follow via computer,mail, or branch lead delivery. A/G RATIO 1.5 (Normal) Range: 0.7-2.0 GLOBULIN, TOTAL 2.6 g/dL (Normal) Range: 2.0-4.5 M-SPIKE (Normal) Comments: Not Observed GAMMA GLOBULIN 0.8 g/dL (Normal) Range: 0.5-1.6 BETA GLOBULIN 1.0 g/dL (Normal) Range: 0.6-1.3 ALPHA-2 GLOBUL 0.6 g/dL (Normal) Range: 0.4-1.2 ALPHA-1 GLOBUL 0.2 g/dL (Normal) Range: 0.1-0.4 ALBUMIN 3.9 g/dL (Normal) Range: 3.2-5.6 PROTEIN,TOTAL 6.5 g/dL (Normal) Range: 6.0-8.5 :24 Protein, Total Comments: [facility] [address] [place], [place], [id number] A/G 1.1 {RATIO} (Normal) Range: 0.9-2.4 GLOB 3.3 g/dL (Normal) Range: 2.3-3.5 T PROT 6.9 g/dL (Normal) Range: 6.4-8.2 :24 Serum Creatinine AND GFR Comments: [facility] [address] [place], [place], [id number] EST GFR - AA 96 mL/min (Normal) Comments: GFR Calc EST GFR 79 mL/min (Normal) Comments: Non- GFR Calc CREAT,SERUM 1.03 mg/dL (Normal) Range: 0.70-1.30 Comments: The validity of the calculated GFR AND GFRAA in patients over70 years has not been determined. Clinical correlation isessential. :24 Thyroid Stim Hormone (TSH) Comments: [facility] [address] [place], [place], [id number] TSH 1.34 {uIU/mL} (Normal) Range: 0.358-3.74 :24 Uric Acid Comments: [facility] [address] [place], [address] URIC 4.7 mg/dL (Normal) Range: 3.5-7.2 :19 CBC W/Diff, Automated Comments: [facility] [address]chzm[address] [place], [place], [phone] Absolute Lymph 1.45 {X10_3/ul} (Normal) Range: 0.83-4.51 Absolute Neut 2.1 {X10_3/uL} (Normal) Range: 2.0-7.7 IM GRAN % 0.200 % (Normal) Range: 0.0-0.9 Comments: IG% - Immature Granulocytes (promyelocytes, myelocytes andmetamyelocytes) > 1% indicates that a LEFT SHIFT is Present. BASO% 0.2 % (Normal) Range: 0-1 EO% 8.4 % (Abnormal) Range: 0-5 MONO% 11.3 % (Abnormal) Range: 0-10 LY% 32.2 % (Normal) Range: 19-41 NEUT% 47.7 % (Normal) Range: 47-70 MPV 9.8 fL (Normal) Range: 6.2-12.0 PLT 203 K/mm3 (Normal) Range: 150-450 RDW SD 48.2 fL (Abnormal) Range: 35.1-43.9 RDW CV 14.6 % (Normal) Range: 11.6-14.6 MCHC 32.7 {g/gl} (Normal) Range: 32-36 MCH 30.7 pg (Normal) Range: 27.0-32.0 MCV 94.0 fL (Normal) Range: 80-94 HCT 42.2 % (Normal) Range: 40-54 HGB 13.8 g/dL (Normal) Range: 13.0-16.5 RBC 4.49 {M/mm3} (Abnormal) Range: 4.6-6.2 WBC 4.5 K/mm3 (Normal) Range: 4.4-11.0 34-Swq-53338:19 Comprehensive Metabolic Comments: ORDERED PSA,CMP,CBCD,UACDR.TOM ORDERED [facility]CD,[facility] [address]bsy[address] [place], [place], [id number] Profil GAP 6 (Normal) Range: 5-15 CO2 32.0 mmol/L (Normal) Range: 21.0-32.0 CL 104 mmol/L (Normal) Range: 98-107 K 4.1 mmol/L (Normal) Range: 3.5-5.1 NA 142 mmol/L (Normal) Range: 136-145 T BILI 0.50 mg/dL (Normal) Range: 0.20-1.00 ALT 37 U/L (Normal) Range: 12-78 ALK P 61 U/L (Normal) Range: 50-136 AST 21 U/L (Normal) Range: 15-37 CA 8.4 mg/dL (Abnormal) Range: 8.5-10.1 A/G 1.1 {RATIO} (Normal) Range: 0.9-2.4 GLOB 3.2 g/dL (Normal) Range: 2.3-3.5 ALB 3.6 g/dL (Normal) Range: 3.4-5.0 T PROT 6.8 g/dL (Normal) Range: 6.4-8.2 BUN/CRE 15.1 {RATIO} (Normal) Range: 10-20 EST GFR - AA 100 mL/min (Normal) Comments: GFR Calc EST GFR 83 mL/min (Normal) Comments: Non- GFR Calc CREAT,SERUM 0.99 mg/dL (Normal) Range: 0.70-1.30 Comments: The validity of the calculated GFR AND GFRAA in patients over70 years has not been determined. Clinical correlation isessential. BUN 15 mg/dL (Normal) Range: 7-18 GLU 97 mg/dL (Normal) Range: 70-110 :19 PSA,Total - Annual Screen Comments: ORDERED PSA,CMP,CBCD,UACDR.TOM ORDERED CBCD,[facility] [address]sufzdrb[address] [facility] [place], [address] PSA,TOT SCREEN 0.55 ng/mL (Normal) Range: 0.00-4.00 Comments: This test was performed using the TPSA assay method for [employer] chemistry system. Values obtained with differentassay methods cannot be used interchangably.When changing PSA assays in the course of monitoring apatient, additional sequential testing should be carriedout to confirm baseline values. :19 Urinalysis, Complete Comments: How was Urine Obtained? CLEAN [facility] [address] [facility] [place], [address] MUCUS, URINE 1+ {/hpf} (Normal) BACTERIA RARE {/hpf} (Normal) SQUAM EPI 0-5 SEEN {/hpf} (Normal) Range: 0-5 RBC-UA 0 SEEN {/hpf} (Normal) Range: 0-5 WBC 0-5 SEEN {/hpf} (Normal) Range: 0-5 LEUK ESTERASE 25 /ul (Abnormal) OCCULT BLOOD-UR Negative /ul (Normal) NITRITE UR Negative (Normal) UROBILI Normal mg/dL (Normal) PROT DIPSTX Negative mg/dL (Normal) pH UR 6.5 (Normal) Range: 5.0 - 8.0 SP.GR. DIPSTX 1.010 (Normal) Range: 1.002-1.030 KETONE UR Negative mg/dL (Normal) BILIRUBIN URINE 6 mg/dL (Abnormal) Comments: COLOR OF URINE MAY AFFECT DIPSTICK RESULTS. GLUCOSE, UR Normal mg/dL (Normal) CLARITY Clear (Normal) COLOR Yellow (Normal) :42 CBC W/Diff, Automated Comments: Test performed at:[facility] Dsjptszzit08[address] [facility] [place] [address] Absolute Lymph 1.96 {X10_3/ul} (Normal) Range: 0.83-4.51 Absolute Neut 3.0 {X10_3/uL} (Normal) Range: 2.0-7.7 IM GRAN % 0.200 % (Normal) Range: 0.0-0.9 Comments: IG% - Immature Granulocytes (promyelocytes, myelocytes andmetamyelocytes) > 1% indicates that a LEFT SHIFT is Present. BASO% 0.3 % (Normal) Range: 0-1 EO% 6.1 % (Abnormal) Range: 0-5 MONO% 10.9 % (Abnormal) Range: 0-10 LY% 32.9 % (Normal) Range: 19-41 NEUT% 49.6 % (Normal) Range: 47-70 MPV 10.1 fL (Normal) Range: 6.2-12.0 PLT 218 K/mm3 (Normal) Range: 150-450 RDW SD 47.2 fL (Abnormal) Range: 35.1-43.9 RDW CV 14.4 % (Normal) Range: 11.6-14.6 MCHC 33.2 {g/gl} (Normal) Range: 32-36 MCH 30.6 pg (Normal) Range: 27.0-32.0 MCV 92.2 fL (Normal) Range: 80-94 HCT 40.1 % (Normal) Range: 40-54 HGB 13.3 g/dL (Normal) Range: 13.0-16.5 RBC 4.35 {M/mm3} (Abnormal) Range: 4.6-6.2 WBC 6.0 K/mm3 (Normal) Range: 4.4-11.0 :42 Comprehensive Metabolic Profil Comments: Test performed at:[facility] [id number] [place], [place] [address] ; handled by edmund GAP 4 (Abnormal) Range: 5-15 CO2 30.0 mmol/L (Normal) Range: 21.0-32.0 CL 104 mmol/L (Normal) Range: 98-107 K 4.0 mmol/L (Normal) Range: 3.5-5.1 NA 138 mmol/L (Normal) Range: 136-145 T BILI 0.30 mg/dL (Normal) Range: 0.20-1.00 ALT 28 U/L (Normal) Range: 12-78 ALK P 67 U/L (Normal) Range: 50-136 AST 24 U/L (Normal) Range: 15-37 CA 8.7 mg/dL (Normal) Range: 8.5-10.1 A/G 1.2 {RATIO} (Normal) Range: 0.9-2.4 GLOB 3.1 g/dL (Normal) Range: 2.3-3.5 ALB 3.7 g/dL (Normal) Range: 3.4-5.0 T PROT 6.8 g/dL (Normal) Range: 6.4-8.2 BUN/CRE 19.8 {RATIO} (Normal) Range: 10-20 EST GFR - AA 104 mL/min (Normal) EST GFR 86 mL/min (Normal) CREAT,SERUM 0.96 mg/dL (Normal) Range: 0.70-1.30 Comments: Please note revised CREATININE reference range [id number]/22/2015. BUN 19 mg/dL (Abnormal) Range: 7-18 GLU 93 mg/dL (Normal) Range: 70-110 [id number] Liver Profile Comments: Test performed at:[facility] [id number] [place], [place] [id number] ; ordered by Dr. Milagros Dolan BILI 0.11 mg/dL (Normal) Range: 0.00-0.30 T BILI 0.30 mg/dL (Normal) Range: 0.00-4.00 ALT 34 U/L (Normal) Range: 12-78 ALK P 63 U/L (Normal) Range: 50-136 AST 27 U/L (Normal) Range: 15-37 GLOB 3.1 g/dL (Normal) Range: 2.7-4.2 ALB 3.8 g/dL (Normal) Range: 3.4-5.0 T PROT 6.9 g/dL (Normal) Range: 6.4-8.2 [id number] CBC W/Diff, Automated Comments: Test performed at:[facility] [id number] [place] [address] Absolute Lymph 2.16 {X10_3/ul} (Normal) Range: 0.83-4.51 Absolute Neut 3.3 {X10_3/uL} (Normal) Range: 2.0-7.7 IM GRAN % 0.200 % (Normal) Range: 0.0-0.9 Comments: IG% - Immature Granulocytes (promyelocytes, myelocytes andmetamyelocytes) > 1% indicates that a LEFT SHIFT is Present. BASO% 0.3 % (Normal) Range: 0-1 EO% 4.0 % (Normal) Range: 0-5 MONO% 7.2 % (Normal) Range: 0-10 LY% 34.8 % (Normal) Range: 19-41 NEUT% 53.5 % (Normal) Range: 47-70 MPV 9.4 fL (Normal) Range: 6.2-12.0 PLT 176 K/mm3 (Normal) Range: 150-450 RDW SD 48.4 fL (Abnormal) Range: 35.1-43.9 RDW CV 14.3 % (Normal) Range: 11.6-14.6 MCHC 32.0 {g/gl} (Normal) Range: 32-36 MCH 29.9 pg (Normal) Range: 27.0-32.0 MCV 93.2 fL (Normal) Range: 80-94 HCT 41.2 % (Normal) Range: 40-54 HGB 13.2 g/dL (Normal) Range: 13.0-16.5 RBC 4.42 {M/mm3} (Abnormal) Range: 4.6-6.2 WBC 6.2 K/mm3 (Normal) Range: 4.4-11.0 [id number] Comprehensive Metabolic Profil Comments: Test performed at:[facility] [address] [place] [address] ; handled by vellenki GAP 3 (Abnormal) Range: 5-15 CO2 29.0 mmol/L (Normal) Range: 21.0-32.0 CL 105 mmol/L (Normal) Range: 98-107 K 3.6 mmol/L (Normal) Range: 3.5-5.1 NA 137 mmol/L (Normal) Range: 136-145 T BILI 0.30 mg/dL (Normal) Range: 0.00-4.00 ALT 33 U/L (Normal) Range: 12-78 ALK P 65 U/L (Normal) Range: 50-136 AST 18 U/L (Normal) Range: 15-37 CA 8.2 mg/dL (Abnormal) Range: 8.5-10.1 A/G 1.1 {RATIO} (Normal) Range: 0.9-2.4 GLOB 3.3 g/dL (Normal) Range: 2.7-4.2 ALB 3.6 g/dL (Normal) Range: 3.4-5.0 T PROT 6.9 g/dL (Normal) Range: 6.4-8.2 BUN/CRE 17.0 {RATIO} (Normal) Range: 10-20 EST GFR - AA 99 mL/min (Normal) EST GFR 82 mL/min (Normal) CREAT,SERUM 1.0 mg/dL (Normal) Range: 0.8-1.3 BUN 17 mg/dL (Normal) Range: 7-18 GLU 138 mg/dL (Abnormal) Range: 70-110 Comments: Fasting Glucose result greater than or equal to 126 mg/dLsuggests DIABETES MELLITUS per A.D.A. criteria. [id number] Rapid Flu (98304 x 2) Influenza A Ag negative (Normal) [id number]-Yjp-[id number]:05 CBCD ALC 1.47 {X10_3/ul} (Normal) Range: 0.83-4.51 ANC 2.4 {X10_3/uL} (Normal) Range: 2.0-7.7 IG% 0.400 % (Normal) Range: 0.0-0.9 Comments: IG% - Immature Granulocytes (promyelocytes, myelocytes andmetamyelocytes) > 1% indicates that a LEFT SHIFT is Present. B% 0.6 % (Normal) Range: 0-1 E% 5.3 % (Abnormal) Range: 0-5 M% 11.9 % (Abnormal) Range: 0-10 L% 31.1 % (Normal) Range: 19-41 N% 50.7 % (Normal) Range: 47-70 MPV 9.7 fL (Normal) Range: 6.2-12.0 PLT 209 K/mm3 (Normal) Range: 150-450 RDWSD 48.5 fL (Abnormal) Range: 35.1-43.9 RDWCV 14.6 % (Normal) Range: 11.6-14.6 MCHC 32.9 {g/gl} (Normal) Range: 32-36 MCH 30.2 pg (Normal) Range: 27.0-32.0 MCV 92.0 fL (Normal) Range: 80-94 HCT 43.5 % (Normal) Range: 40-54 HGB 14.3 g/dL (Normal) Range: 13.0-16.5 RBC 4.73 {M/mm3} (Normal) Range: 4.6-6.2 WBC 4.7 K/mm3 (Normal) Range: 4.4-11.0 65-[id number]:05 CMP GAP 5 (Normal) Range: 5-15 CO2 29.0 mmol/L (Normal) Range: 21.0-32.0 CL 106 mmol/L (Normal) Range: 98-107 K 4.3 mmol/L (Normal) Range: 3.5-5.1 NA 140 mmol/L (Normal) Range: 136-145 BIT 0.60 mg/dL (Normal) Range: 0.00-4.00 ALT 38 U/L (Normal) Range: 12-78 ALK 62 U/L (Normal) Range: 50-136 AST 29 U/L (Normal) Range: 15-37 CA 8.8 mg/dL (Normal) Range: 8.5-10.1 AG 1.3 {RATIO} (Normal) Range: 0.9-2.4 GLOB 3.0 g/dL (Normal) Range: 2.7-4.2 ALB 3.8 g/dL (Normal) Range: 3.4-5.0 TPROT 6.8 g/dL (Normal) Range: 6.4-8.2 BC 21.1 {RATIO} (Abnormal) Range: 10-20 GFRAA 113 mL/min (Normal) GFR 93 mL/min (Normal) CREAT 0.9 mg/dL (Normal) Range: 0.8-1.3 BUN 19 mg/dL (Abnormal) Range: 7-18 GLU 85 mg/dL (Normal) Range: 70-110 :05 PSA 0.54 ng/mL (Normal) Range: 0.00-4.00 Comments: This test was performed using the TPSA assay method for [employer] chemistry system. Values obtained with differentassay methods cannot be used interchangably.When changing PSA assays in the course of monitoring apatient, additional sequential testing should be carriedout to confirm baseline values. :05 UAC Comments: How was Urine Obtained? CLEAN CATCH UMUC 0 SEEN {/hpf} (Normal) UBAC RARE {/hpf} (Normal) UEPIS 0-5 SEEN {/hpf} (Normal) Range: 0-5 URBC 0 SEEN {/hpf} (Normal) Range: 0-5 UWBC 0-5 SEEN {/hpf} (Normal) Range: 0-5 BLUE 25 /ul (Abnormal) UOB Negative /ul (Normal) CATHERINE Negative (Normal) UROBU 1 mg/dL (Abnormal) uPROTU Negative mg/dL (Normal) YAZ 7.0 (Normal) Range: 5.0 - 8.0 SGU 1.015 (Normal) Range: 1.002-1.030 KETU 5 mg/dL (Abnormal) BILIU 6 mg/dL (Abnormal) Comments: COLOR OF URINE MAY AFFECT DIPSTICK RESULTS. GLUR Normal mg/dL (Normal) UCLAR Clear (Normal) UCOL Yellow (Normal) [id number] CBCD ALC 1.77 {X10_3/ul} (Normal) Range: 0.83-4.51 ANC 2.4 {X10_3/uL} (Normal) Range: 2.0-7.7 IG% 0.200 % (Normal) Range: 0.0-0.9 Comments: IG% - Immature Granulocytes (promyelocytes, myelocytes andmetamyelocytes) > 1% indicates that a LEFT SHIFT is Present. B% 0.4 % (Normal) Range: 0-1 E% 8.5 % (Abnormal) Range: 0-5 M% 11.3 % (Abnormal) Range: 0-10 L% 33.5 % (Normal) Range: 19-41 N% 46.1 % (Abnormal) Range: 47-70 MPV 10.3 fL (Normal) Range: 6.2-12.0 PLT 233 K/mm3 (Normal) Range: 150-450 RDWSD 47.8 fL (Abnormal) Range: 35.1-43.9 RDWCV 14.5 % (Normal) Range: 11.6-14.6 MCHC 32.3 {g/gl} (Normal) Range: 32-36 MCH 29.4 pg (Normal) Range: 27.0-32.0 MCV 91.1 fL (Normal) Range: 80-94 HCT 42.1 % (Normal) Range: 40-54 HGB 13.6 g/dL (Normal) Range: 13.0-16.5 RBC 4.62 {M/mm3} (Normal) Range: 4.6-6.2 WBC 5.3 K/mm3 (Normal) Range: 4.4-11.0 [id number]:41 CMP GAP 7 (Normal) Range: 5-15 CO2 28.0 mmol/L (Normal) Range: 21.0-32.0 CL 105 mmol/L (Normal) Range: 98-107 K 3.9 mmol/L (Normal) Range: 3.5-5.1 NA 140 mmol/L (Normal) Range: 136-145 BIT 0.30 mg/dL (Normal) Range: 0.00-1.00 ALT 51 U/L (Normal) Range: 12-78 ALK 66 U/L (Normal) Range: 45-117 AST 29 U/L (Normal) Range: 15-37 CA 8.9 mg/dL (Normal) Range: 8.5-10.1 AG 1.3 {RATIO} (Normal) Range: 0.9-2.4 GLOB 3.0 g/dL (Normal) Range: 2.7-4.2 ALB 3.9 g/dL (Normal) Range: 3.4-5.0 TPROT 6.9 g/dL (Normal) Range: 6.4-8.2 BC 21.1 {RATIO} (Abnormal) Range: 10-20 GFRAA 113 mL/min (Normal) GFR 93 mL/min (Normal) CREAT 0.9 mg/dL (Normal) Range: 0.8-1.3 BUN 19 mg/dL (Abnormal) Range: 7-18 GLU 84 mg/dL (Normal) Range: 70-110 :17 CBCD ALC 2.16 {X10_3/ul} (Normal) Range: 0.83-4.51 ANC 2.6 {X10_3/uL} (Normal) Range: 2.0-7.7 IG% 0.300 % (Normal) Range: 0.0-0.9 Comments: IG% - Immature Granulocytes (promyelocytes, myelocytes andmetamyelocytes) > 1% indicates that a LEFT SHIFT is Present. B% 0.7 % (Normal) Range: 0-1 E% 8.8 % (Abnormal) Range: 0-5 M% 8.8 % (Normal) Range: 0-10 L% 36.6 % (Normal) Range: 19-41 N% 44.8 % (Abnormal) Range: 47-70 MPV 10.1 fL (Normal) Range: 6.2-12.0 PLT 226 K/mm3 (Normal) Range: 150-450 RDWSD 47.8 fL (Abnormal) Range: 35.1-43.9 RDWCV 14.8 % (Abnormal) Range: 11.6-14.6 MCHC 32.5 {g/gl} (Normal) Range: 32-36 MCH 29.7 pg (Normal) Range: 27.0-32.0 MCV 91.3 fL (Normal) Range: 80-94 HCT 43.1 % (Normal) Range: 40-54 HGB 14.0 g/dL (Normal) Range: 13.0-16.5 RBC 4.72 {M/mm3} (Normal) Range: 4.6-6.2 WBC 5.9 K/mm3 (Normal) Range: 4.4-11.0 :17 CMP GAP 4 (Abnormal) Range: 5-15 CO2 30.0 mmol/L (Normal) Range: 21.0-32.0 CL 106 mmol/L (Normal) Range: 98-107 K 3.9 mmol/L (Normal) Range: 3.5-5.1 NA 140 mmol/L (Normal) Range: 136-145 BIT 0.20 mg/dL (Normal) Range: 0.00-1.00 ALT 30 U/L (Normal) Range: 12-78 ALK 62 U/L (Normal) Range: 45-117 AST 18 U/L (Normal) Range: 15-37 CA 8.8 mg/dL (Normal) Range: 8.5-10.1 AG 1.3 {RATIO} (Normal) Range: 0.9-2.4 GLOB 3.0 g/dL (Normal) Range: 2.7-4.2 ALB 3.8 g/dL (Normal) Range: 3.4-5.0 TPROT 6.8 g/dL (Normal) Range: 6.4-8.2 BC 23.3 {RATIO} (Abnormal) Range: 10-20 GFRAA 113 mL/min (Normal) GFR 93 mL/min (Normal) CREAT 0.9 mg/dL (Normal) Range: 0.8-1.3 BUN 21 mg/dL (Abnormal) Range: 7-18 GLU 93 mg/dL (Normal) Range: 70-110 22-Lam-020339:50 CBCD ANC 3.8 {X10_3/uL} (Normal) Range: 2.0-7.7 IG% 0.200 % (Normal) Range: 0.0-0.9 Comments: IG% - Immature Granulocytes (promyelocytes, myelocytes andmetamyelocytes) > 1% indicates that a LEFT SHIFT is Present. B% 0.3 % (Normal) Range: 0-1 E% 4.4 % (Normal) Range: 0-5 M% 8.8 % (Normal) Range: 0-10 L% 28.0 % (Normal) Range: 19-41 MPV 9.5 fL (Normal) Range: 6.2-12.0 N% 58.3 % (Normal) Range: 47-70 PLT 231 K/mm3 (Normal) Range: 150-450 RDWCV 14.4 % (Normal) Range: 11.6-14.6 RDWSD 46.6 fL (Abnormal) Range: 35.1-43.9 MCH 29.3 pg (Normal) Range: 27.0-32.0 MCHC 32.7 {g/gl} (Normal) Range: 32-36 HCT 42.2 % (Normal) Range: 40-54 MCV 89.6 fL (Normal) Range: 80-94 HGB 13.8 g/dL (Normal) Range: 13.0-16.5 RBC 4.71 {M/mm3} (Normal) Range: 4.6-6.2 WBC 6.6 K/mm3 (Normal) Range: 4.4-11.0 82-[id number]:50 TSH 1.01 {uIU/mL} (Normal) Range: 0.358-3.74 :29 URINE YUE CULTURE-MALIA COL Comments: PATIENT NOT FASTINGPERFORMED BY: [facility] [id number] [facility] [id number] Information: SRC:UR [id number] COUNT ([id number]) Result 1 MUG (Normal) Comments: Mixed urogenital flora1,000 Colonies/mL Urine Culture,Comprehensive Final report (Normal) [id number] Urinalysis, Office ([id number]) UA - BILIRUBIN Large (Normal) UA - BLOOD Negative (Normal) UA - GLUCOSE Negative (Normal) UA - KETONES Negative mg/dL (Normal) UA - LEUKOCYTE ESTERASE Negative (Normal) UA - NITRITE Negative (Normal) UA - PH 7.0 (Normal) UA - PROTEIN Negative mg/dL (Normal) UA - SPECIFIC GRAVITY 1.025 (Normal) URINE UROBILINGN MALIA TIMED Normal mg/dL (Normal) :53 CBCD ANC 2.7 {X10_3/uL} (Normal) Range: 2.0-7.7 IG% 0.000 % (Normal) Range: 0.0-0.9 Comments: IG% - Immature Granulocytes (promyelocytes, myelocytes andmetamyelocytes) > 1% indicates that a LEFT SHIFT is Present. B% 0.2 % (Normal) Range: 0-1 E% 6.3 % (Abnormal) Range: 0-5 M% 10.8 % (Abnormal) Range: 0-10 L% 26.2 % (Normal) Range: 19-41 N% 56.5 % (Normal) Range: 47-70 MPV 10.2 fL (Normal) Range: 6.2-12.0 PLT 195 K/mm3 (Normal) Range: 150-450 RDWSD 46.5 fL (Abnormal) Range: 35.1-43.9 RDWCV 14.4 % (Normal) Range: 11.6-14.6 MCHC 32.3 {g/gl} (Normal) Range: 32-36 MCH 28.7 pg (Normal) Range: 27.0-32.0 MCV 88.8 fL (Normal) Range: 80-94 HCT 41.2 % (Normal) Range: 40-54 HGB 13.3 g/dL (Normal) Range: 13.0-16.5 RBC 4.64 {M/mm2} (Normal) Range: 4.6-6.2 WBC 4.7 K/mm3 (Normal) Range: 4.4-11.0 :53 CMP Comments: EFREN URIARTE CHLOE ORDERED CMP ONLY CO2 29.0 mmol/L (Normal) Range: 21.0-32.0 GAP 6 (Normal) Range: 5-15 CL 105 mmol/L (Normal) Range: 98-107 K 3.9 mmol/L (Normal) Range: 3.5-5.1 NA 140 mmol/L (Normal) Range: 136-145 BIT 0.50 mg/dL (Normal) Range: 0.00-1.00 ALT 29 U/L (Normal) Range: 12-78 ALK 60 U/L (Normal) Range: 50-136 AST 29 U/L (Normal) Range: 15-37 CA 8.5 mg/dL (Normal) Range: 8.5-10.1 AG 1.5 {RATIO} (Normal) Range: 0.9-2.4 ALB 3.8 g/dL (Normal) Range: 3.4-5.0 GLOB 2.5 g/dL (Abnormal) Range: 2.7-4.2 TPROT 6.3 g/dL (Abnormal) Range: 6.4-8.2 BC 19.0 {RATIO} (Normal) Range: 10-20 GFRAA 101 mL/min (Normal) GFR 83 mL/min (Normal) CREAT 1.0 mg/dL (Normal) Range: 0.8-1.3 BUN 19 mg/dL (Abnormal) Range: 7-18 GLU 87 mg/dL (Normal) Range: 70-110 :53 LIPID Comments: MICHELLESONYAParkerEFREN CHLOE ORDERED CMP ONLY VLDL 8 mg/dL (Normal) Range: 5-40 HDL 46 mg/dL (Normal) Comments: Reference RangeHDL <40 mg/dL Low HDL CholesterolHDL >or= 60 mg/dL High HDL Cholesterol LDL 81 mg/dL (Normal) Range: 0-130 TRIG 39 mg/dL (Normal) Range: 0-199 Comments: Serum Triglycerides Reference IntervalNormal <150 mg/dLBorderline high 150 - 199 mg/dLHigh 200 - 499 mg/ dLVery High > or = 500 mg/dL CHOL 135 mg/dL (Normal) Comments: <200 mg/dL Odtjipdxu668-378 mg/dL Borderline>240 mg/dL High Risk :53 PSAD 0.56 ng/mL (Normal) Comments: EFREN URIARTE OWNER PROFESSIONAL ENGINEER ORDERED CMP ONLY Range: 0.0-4.0 Comments: This test was performed using the TPSA assay method for [employer] chemistry system. Values obtained with differentassay methods cannot be used interchangably.When changing PSA assays in the course of monitoring apatient, additional sequential testing should be carriedout to confirm baseline values. :53 UA Comments: How was Urine Obtained? CLEAN CATCH BLUE 25 /ul (Abnormal) UOB Negative /ul (Normal) CATHERINE Negative (Normal) UROBU Normal mg/dL (Normal) uPROTU 15 mg/dL (Abnormal) YAZ 6.0 (Normal) Range: 5.0 - 8.0 SGU 1.025 (Normal) Range: 1.002-1.030 KETU Negative mg/dL (Normal) BILIU 3 mg/dL (Abnormal) GLUR Normal mg/dL (Normal) UCLAR Clear (Normal) UCOL Yellow (Normal) 11-Ahi-[id number]:20 KNEE 4 OR MORE VIEWS Radiology Report See Note Comments: PROCEDURES: X-RAY - LEFT KNEE REASON FOR EXAM: Male, 52 years old. Knee pain following a recentfall. TECHNIQUE: Four views of the knee. COMPARISON: None. FIND (Normal) INGS:Normal visualized distal femur. Normal visualized proximal tibia andfibula. Normal proximal tibiofibular articulation. There is evidence ofirregularities along the inferior aspect of the patella . This mayrepresent a tiny avulsion fracture. Clinical correlation is recommended. Normal medial femorotibial compartment. Normal lateral femorotibialcompartment. Normal patellofemoral articulation. Infrapatellar soft tissue swelling. IMPRESSION:Infrapatellar soft tissue swelling with probable avulsion of the inferioraspect of the patella. Signed:Dagoberto harper M.D.September 23, 2012 at 2:44:59 PM [id number] Signed GP/GP If you are the referring physician and would like to consult with theradiologist who provided this interpretation, please c mike Menjivar M.D. at [phone]. If this radiologist is unavailable, youwill be directed to another radiologist to assist. If you are a patient with a question regarding this report, plea secontactyour referring physician directly. Professional Interpretation Provided By: [employer], Phone , These documents contain legally protected and confidential healthi nformation intended only for the use of the individual or entity namedabove. If you are not the intended recipient, you are hereby notifiedthatany disclosure, copying, distribution, or other use of thes e documents isstrictly prohibited. If you have received this information in error,pleasenotify the sender immediately and arrange for the return or destructionofthese documents. Dictated on 09/23/12 1444 by Cyrus Cox MDranscribed on 09/23/12 1451 by ITS IMPORTSign by Dagoberto Cox MD on 09/23/12 1452 Sign by: Dagoberto Cox MD 70-Cff-061417:19 Rapid Strep Test, Office ([id number]) Comments: neg Rapid Strep Test, Office Negative (Normal) 6-Jly-107034:41 L/S SPINE,MIN 4 VIEWS Radiology Report See Note (Normal) Comments: PROCEDURE: X-RAY - LUMBAR SPINE REASON FOR EXAM: Male, 51 years old. Right leg pain and buttock pain. TECHNIQUE: Five views of the lumbar spine were obtained. COMPARISON: None FINDINGS:Normal l umbar lordosis. There is no substantial scoliosis. T12-L1: Normal disc height. Normal endplates. Normal alignment of thevertebrae. L1-2: Normal disc height. Normal endplates. Normal alignment of thev ertebrae. L2-3: Normal disc height. Normal endplates. Normal alignment of thevertebrae. L3-4: Normal disc height. Normal endplates. Normal alignment of thevertebrae. L4-5: There is mild facet joint o steoarthritis. There is a mild degreeofdisk space narrowing. L5-S1: Normal disc height. Normal endplates. Mild facet jointosteoarthritis. Normal alignment of the vertebrae. The soft tissue structures are unremarkable. IMPRESSION:Degenerative changes of the spine, as detailed above. Signed:Dagoberto Cox M.D.April 02, 2012 at 1:16:13 PM [id number] Signed GP/GP If you are th e referring physician and would like to consult with theradiologist who provided this interpretation, please contact Raj Menjivar at [phone]. If this radiologist is unavailable, youwill be directed to another radiologist to assist. If you are a patient with a question regarding this report, pleasecontactyour referring physician directly. Professional Interpretation Provided By: [facility] here, Phone , These documents contain legally protected and confidential healthinformation intended only for the use of the individual or entity namedabove. If you are not the intended recipient, you are hereby notifiedthatany disclosure, copying, distribution, or other use of these documents isstrictly prohibited. If you have received this information in error,pleasenoti fy the sender immediately and arrange for the return or destructionofthese documents. Dictated on 04/02/12 1241 by Lena Cox MDscribed on 04/02/12 1329 by ITS IMPORTSign by Dagoberto Cox MD on 04/02/12 1330 Sign by: Dagoberto Cox MD :18 CBCMD ANC 2.2 3/uL (Normal) Range: 2.0-7.7 IG# 0.010 3/ul (Abnormal) Range: 0.0-0.0 IG% 0.20 % (Abnormal) Range: 0.0-0.0 B% 0.2 % (Normal) Range: 0-1 E% 8.9 % (Abnormal) Range: 0-5 M% 12.3 % (Abnormal) Range: 0-10 L% 32.0 % (Normal) Range: 19-41 N% 46.4 % (Abnormal) Range: 47-70 MPV 9.8 fL (Normal) Range: 6.2-12.0 PLT 202 K/mm3 (Normal) Range: 150-450 RDWSD 43.2 fL (Normal) Range: 35.1-43.9 RDWCV 13.4 % (Normal) Range: 11.6-14.6 MCHC 32.5 g/dL (Normal) Range: 32-36 MCH 28.8 pg (Normal) Range: 27.0-32.0 MCV 88.6 fL (Normal) Range: 80-94 HCT 43.4 % (Normal) Range: 40-54 HGB 14.1 g/dL (Normal) Range: 13.0-16.5 RBC 4.90 {M/mm3} (Normal) Range: 4.6-6.2 WBC 4.6 {k/mm3} (Normal) Range: 4.4-11.0 :18 CMP GAP 7 (Normal) Range: 5-15 CO2 31.0 mmol/L (Normal) Range: 21.0-32.0 CL 103 mmol/L (Normal) Range: 98-107 K 4.2 mmol/L (Normal) Range: 3.5-5.1 NA 141 mmol/L (Normal) Range: 136-145 BIT 0.50 mg/dL (Normal) Range: 0.00-1.00 ALT 36 U/L (Normal) Range: 12-78 ALK 60 U/L (Normal) Range: 50-136 AST 24 U/L (Normal) Range: 15-37 CA 8.8 mg/dL (Normal) Range: 8.5-10.1 AG 1.1 {RATIO} (Normal) Range: 0.9-2.4 GLOB 3.3 g/dL (Normal) Range: 2.7-4.2 ALB 3.6 g/dL (Normal) Range: 3.4-5.0 TPROT 6.9 g/dL (Normal) Range: 6.4-8.2 BC 19.0 {RATIO} (Normal) Range: 10-20 GFRAA 101 mL/min (Normal) GFR 83 mL/min (Normal) CREAT 1.0 mg/dL (Normal) Range: 0.8-1.3 BUN 19 mg/dL (Abnormal) Range: 7-18 GLU 82 mg/dL (Normal) Range: 70-110 :18 LIPID LDL 76 mg/dL (Normal) Range: 0-130 VLDL 10 mg/dL (Normal) Range: 5-40 HDL 65 mg/dL (Normal) Comments: Reference Range HDL <40 mg/dL Low HDL Cholesterol HDL >or= 60 mg/dL High HDL Cholesterol CHOL 151 mg/dL (Normal) Comments: <200 mg/dL Desirable 200-240 mg/dL Borderline >240 mg/dL High Risk TRIG 48 mg/dL (Normal) Comments: Serum Triglycerides Reference Interval Normal <150 mg/dL Borderline high 150 - 199 mg/dL High 200 - 499 mg/dL Very High > or = 500 mg/dL :18 UAC AMORP 3+ (Normal) UMUC 0 SEEN {/hpf} (Normal) UBAC 0 SEEN {/hpf} (Normal) UEPIS 0 SEEN {/hpf} (Normal) Range: 0-5 URBC 0 SEEN {/hpf} (Normal) Range: 0-5 UWBC 0 SEEN {/hpf} (Normal) Range: 0-5 BLUE 25 /ul (Abnormal) UOB Negative /ul (Normal) CATHERINE Negative (Normal) UROBU Normal mg/dL (Normal) uPROTU Negative mg/dL (Normal) YAZ 8 (Normal) Range: 5.0 - 8.0 SGU 1.015 (Normal) Range: 1.002-1.030 KETU Negative mg/dL (Normal) BILIU 6 mg/dL (Abnormal) Comments: DUE TO A CONCRETE PUMP OPERATOR'S BACKORDER OF THE ICTOTEST TEST, URINE BILIRUBIN COMFIRMATORY TESTING FOR ALL POSITIVERESULTS WILL BE SUSPENDED. TESTING WILL RESUME WHEN THEICTOTEST TEST IS AVAILABLE. GLUR Normal mg/dL (Normal) UCLAR Cloudy (Normal) UCOL Yellow (Normal) :30 YUE CULTURE-OTHER ([id number]) Comments: PATIENT NOT FASTINGPERFORMED BY: [facility]Thkjwh[facility] [id number] Information: SRC:THRT [id number] Result 1 MORACA (Normal) Comments: Moraxella (branhamella) catarrhalisHeavy growthBeta lactamase positive. Upper Respiratory Culture Final report (Normal) :01 UAC UMUC 0 SEEN {/hpf} (Normal) UBAC 0 SEEN {/hpf} (Normal) UEPIS 0 SEEN {/hpf} (Normal) Range: 0-5 URBC 0 SEEN {/hpf} (Normal) Range: 0-5 UWBC 0 SEEN {/hpf} (Normal) Range: 0-5 BLUE NEGATIVE (Normal) UOB NEGATIVE (Normal) CATHERINE NEGATIVE (Normal) UROBU 0.2 EU/dl (Normal) Range: 0.2 - 1.0 uPROTU NEGATIVE (Normal) YAZ 7.0 (Normal) Range: 5.0-8.0 SGU 1.010 (Normal) Range: 1.002-1.030 KETU NEGATIVE mg/dL (Normal) UICTO Neg (Normal) BILIU Inconcl (Normal) Comments: Dipstick inconclusive for bilirubin.See confirmatory ICTOTEST. GLUR NEGATIVE (Normal) UCLAR CLEAR (Normal) UCOL YELLOW (Normal) :42 CBCMD RBCM NORM C+C {NORMAL} (Normal) PE ADEQUATE (Normal) EOS 8 % (Abnormal) Range: 0-5 MON 9 % (Normal) Range: 0-10 LYMPH 28 % (Normal) Range: 19-41 BAND 2 % (Normal) Range: 0-5 PMN 53 % (Normal) Range: 47-70 ANNIE 100 (Normal) ANC 2.6 3/uL (Normal) Range: 2.0-7.7 PLT 230 K/mm3 (Normal) Range: 150-450 RDW 13.8 % (Normal) Range: 11.6-14.6 MCHC 35.0 g/dL (Normal) Range: 32-36 MCH 30.6 pg (Normal) Range: 27.0-32.0 MCV 87.6 fL (Normal) Range: 80-94 HCT 39.9 % (Abnormal) Range: 40-54 HGB 13.9 g/dL (Abnormal) Range: 14.0-18.0 RBC 4.55 {M/mm3} (Abnormal) Range: 4.6-6.2 WBC 4.9 K/mm3 (Normal) Range: 4.4-11.0 :42 CMP GAP 4 (Abnormal) Range: 5-15 CO2 30.0 mmol/L (Normal) Range: 21.0-32.0 CL 105 mmol/L (Normal) Range: 98-107 K 4.0 mmol/L (Normal) Range: 3.5-5.1 NA 139 mmol/L (Normal) Range: 136-145 BIT 0.40 mg/dL (Normal) Range: 0.00-1.00 ALT 35 U/L (Normal) Range: 12-78 ALK 53 U/L (Normal) Range: 50-136 AST 17 U/L (Normal) Range: 15-37 CA 8.7 mg/dL (Normal) Range: 8.5-10.1 AG 1.2 {RATIO} (Normal) Range: 0.9-2.4 GLOB 3.2 g/dL (Normal) Range: 2.7-4.2 ALB 3.9 g/dL (Normal) Range: 3.4-5.0 TPROT 7.1 g/dL (Normal) Range: 6.4-8.2 BC 20.0 {RATIO} (Normal) Range: 10-20 GFRAA 114 mL/min (Normal) GFR 94 mL/min (Normal) CREAT 0.9 mg/dL (Normal) Range: 0.8-1.3 BUN 18 mg/dL (Normal) Range: 7-18 GLU 95 mg/dL (Normal) Range: 70-110 :42 LIPID VLDL 14 mg/dL (Normal) Range: 5-40 HDL 48 mg/dL (Normal) Comments: Reference Range HDL <40 mg/dL Low HDL Cholesterol HDL >or= 60 mg/dL High HDL Cholesterol LDL 71 mg/dL (Normal) Range: 0-130 TRIG 71 mg/dL (Normal) Comments: Serum Triglycerides Reference Interval Normal <150 mg/dL Borderline high 150 - 199 mg/dL High 200 - 499 mg/dL Very High > or = 500 mg/dL CHOL 133 mg/dL (Normal) Comments: <200 mg/dL Desirable 200-240 mg/dL Borderline >240 mg/dL High Risk :42 PSA 0.5 ng/mL (Normal) Range: 0.0-4.0 :42 UAC UMUC 0 SEEN {/hpf} (Normal) UBAC 1+ {/hpf} (Normal) UEPIS 0-5 SEEN {/hpf} (Normal) Range: 0-5 URBC 0-5 SEEN {/hpf} (Normal) Range: 0-5 UWBC 0-5 SEEN {/hpf} (Normal) Range: 0-5 BLUE NEGATIVE (Normal) UOB NEGATIVE (Normal) CATHERINE NEGATIVE (Normal) UROBU 0.2 EU/dl (Normal) Range: 0.2 - 1.0 uPROTU NEGATIVE (Normal) YAZ 6.5 (Normal) Range: 5.0-8.0 SGU 1.025 (Normal) Range: 1.002-1.030 KETU TRACE mg/dL (Abnormal) UICTO Pos (Abnormal) BILIU 3+ (Abnormal) GLUR NEGATIVE (Normal) UCLAR CLEAR (Normal) UCOL YELLOW (Normal) :42 VITD 46.4 ng/mL (Normal) Comments: appt 12 Range: 30.0-100.0 Comments: Vitamin D deficiency has been defined by the [place] [employer] and an Endocrine Society practice guideline as alevel of serum 25-OH vitamin D less than 20 ng/mL (1,2).The Endocrine Society went on to further define vitamin Dinsufficiency as a level between 21 and 29 ng/mL (2).1. IOM ([place] [employer]). 2010. Dietary reference intakes for calcium and D. [place]: The National Academies Press.2. Cesario HARRIS, Dylan PEPE, Darling SCHERER, et al. Evaluation, treatment, and prevention of vitamin D deficiency: an Endocrine Society clinical practice guideline. JCEM. 2010; 96(7): 1911-30.Performed at: - [facility] [id number] [place], [place] [id number] Director: Concha Jarrell MD, Phone: [phone] YUE CULTURE-OTHER ([id number]) Comments: PATIENT NOT FASTINGPERFORMED BY: [facility] [id number] [facility] [id number] Information: SRC:THRT [id number] Result 1 RRF (Normal) Comments: Routine respiratory hernán Upper Respiratory Culture Final report (Normal) :41 Rapid Strep Test, Office ([id number]) Rapid Strep Test, Office Negative (Normal) :55 CBCD,SMEAR DIFF RED CELL MORPH SeeNote {NORMAL} (Normal) Comments: Result: NORM C+C PLT EST SeeNote (Normal) Comments: Result: ADEQUATE EOS 9 % (Abnormal) Range: 0-5 MONOCYTE 11 % (Abnormal) Range: 0-10 LYMPH 26 % (Normal) Range: 19-41 BAND 2 % (Normal) Range: 0-5 CELLS COUNTED 100 (Normal) SEGS 52 % (Normal) Range: 47-70 ABSOLUTE NEUT 2.8 3/uL (Normal) Range: 2.0-7.7 PLT 190 K/mm3 (Normal) Range: 150-450 RDW 13.8 % (Normal) Range: 11.6-14.6 MCHC 34.2 g/dL (Normal) Range: 32-36 MCH 30.1 pg (Normal) Range: 27.0-32.0 MCV 88.1 fL (Normal) Range: 80-94 HCT 41.5 % (Normal) Range: 40-54 HGB 14.2 g/dL (Normal) Range: 14.0-18.0 RBC 4.71 {M/mm3} (Normal) Range: 4.6-6.2 WBC 5.2 K/mm3 (Normal) Range: 4.4-11.0 :55 FERRITIN 49 ng/mL (Normal) Range: 26-388 :55 IRON+TIBC Comments: appt 01/29/11 IRON SATURATION 18.4 % (Normal) Range: 15.0-55.0 IRON 71 ug/dL (Normal) Range: 65-175 TIBC 386 ug/dL (Normal) Range: 250-450 :05 CBCD,SMEAR DIFF Comments: appt 10/23/10 RED CELL MORPH SeeNote {NORMAL} (Normal) Comments: Result: NORM C+C PLT EST SeeNote (Normal) Comments: Result: ADEQUATE BASOPHIL 3 % (Abnormal) Range: 0-1 EOS 8 % (Abnormal) Range: 0-5 MONOCYTE 13 % (Abnormal) Range: 0-10 LYMPH 36 % (Normal) Range: 19-41 SEGS 40 % (Abnormal) Range: 47-70 CELLS COUNTED 100 (Normal) ABSOLUTE NEUT 2.3 3/uL (Normal) Range: 2.0-7.7 PLT 184 K/mm3 (Normal) Range: 150-450 RDW 13.9 % (Normal) Range: 11.6-14.6 MCHC 33.7 g/dL (Normal) Range: 32-36 MCH 30.2 pg (Normal) Range: 27.0-32.0 MCV 89.7 fL (Normal) Range: 80-94 HCT 43.1 % (Normal) Range: 40-54 HGB 14.6 g/dL (Normal) Range: 14.0-18.0 RBC 4.81 {M/mm3} (Normal) Range: 4.6-6.2 WBC 4.8 K/mm3 (Normal) Range: 4.4-11.0 :05 COMP METABOLIC GAP 5 (Normal) Range: 5-15 CO2 31.0 mmol/L (Normal) Range: 21.0-32.0 CL 103 mmol/L (Normal) Range: 98-107 K 4.8 mmol/L (Normal) Range: 3.5-5.1 NA 139 mmol/L (Normal) Range: 136-145 T BILI 0.50 mg/dL (Normal) Range: 0.00-1.00 ALT 31 U/L (Normal) Range: 12-78 ALK P 55 U/L (Normal) Range: 50-136 AST 16 U/L (Normal) Range: 15-37 CA 8.4 mg/dL (Abnormal) Range: 8.5-10.1 A/G 1.2 {RATIO} (Normal) Range: 0.9-2.4 GLOB 3.3 g/dL (Normal) Range: 2.7-4.2 ALB 3.8 g/dL (Normal) Range: 3.4-5.0 T PROT 7.1 g/dL (Normal) Range: 6.4-8.2 BUN/CRE 13.3 {RATIO} (Normal) Range: 10-20 EST GFR - AA 114 mL/min (Normal) EST GFR 94 mL/min (Normal) CREAT,SERUM 0.9 mg/dL (Normal) Range: 0.8-1.3 BUN 12 mg/dL (Normal) Range: 7-18 GLU 88 mg/dL (Normal) Range: 70-110 :05 FERRITIN 70 ng/mL (Normal) Range: 26-388 :05 IRON 47 ug/dL (Abnormal) Range: 65-175 :05 LIPID LDL 75 mg/dL (Normal) Range: 0-130 VLDL 15 mg/dL (Normal) Range: 5-40 HDL 54 mg/dL (Normal) Comments: Reference Range HDL <40 mg/dL Low HDL Cholesterol HDL >or= 60 mg/dL High HDL Cholesterol TRIG 73 mg/dL (Normal) Comments: Serum Triglycerides Reference Interval Normal <150 mg/dL Borderline high 150 - 199 mg/dL High 200 - 499 mg/dL Very High > or = 500 mg/dL CHOL 144 mg/dL (Normal) Comments: <200 mg/dL Desirable 200-240 mg/dL Borderline >240 mg/dL High Risk :05 TIBC 204 ug/dL (Abnormal) Comments: appt 09/2910 Range: 250-450 :03 CBCD,SMEAR DIFF Comments: appt 06/19/10 RED CELL MORPH SeeNote {NORMAL} (Normal) Comments: Result: NORM C+C EOS 3 % (Normal) Range: 0-5 MONOCYTE 8 % (Normal) Range: 0-10 PLT EST SeeNote (Normal) Comments: Result: ADEQUATE BAND 1 % (Normal) Range: 0-5 LYMPH 28 % (Normal) Range: 19-41 SEGS 60 % (Normal) Range: 47-70 CELLS COUNTED 100 (Normal) ABSOLUTE NEUT 2.3 3/uL (Normal) Range: 2.0-7.7 PLT 179 K/mm3 (Normal) Range: 150-450 MCH 30.5 pg (Normal) Range: 27.0-32.0 MCHC 34.2 g/dL (Normal) Range: 32-36 RDW 13.7 % (Normal) Range: 11.6-14.6 HCT 41.9 % (Normal) Range: 40-54 HGB 14.3 g/dL (Normal) Range: 14.0-18.0 MCV 89.1 fL (Normal) Range: 80-94 RBC 4.70 {M/mm3} (Normal) Range: 4.6-6.2 WBC 4.4 K/mm3 (Normal) Range: 4.4-11.0 :03 FERRITIN 48 ng/mL (Normal) Range: 26-388 :03 IRON 63 ug/dL (Abnormal) Range: 65-175 Comments: ADDENDA: appt 06/19/10:03 PSA, SCREEN 0.6 ng/mL (Normal) Comments: appt 07/19/10 Range: 0.0-4.0 :03 TIBC 320 ug/dL (Normal) Range: 250-450 :03 VIT D,25 19103 45.7 ng/mL (Normal) Range: 32.0-100.0 Comments: Recent studies consider the lower limit of 32.0 ng/mL to jennifer threshold for optimal health.Remigio GIBSON. J Nutr. 2004;135(2):317-22.Performed at: - [address] [id number] Director: Concha Jarrell MD, Phone: [phone] :[phone] FECAL OCCULT- Tubes sent home ([id number]) FECAL OCCULT HGB ASSAY, Negative (Normal) QUAL, 1-3 SIMULTANE : C-REACTIVE PROT 4.01 mg/L (Abnormal) Range: 0.0-3.0 03 Comments: C-Reactive Protein (CRP) provides useful information for thediagnosis, therapy and monitoring of inflammatory processesand associated diseases. For the evaluation of Relative Riskfor Cardiovascular Dise ase, a High Sensitivity CRP (HSCRP)should be ordered. :03 CBCD ABSOLUTE NEUT 1.9 3/uL (Abnormal) Range: 2.0-7.7 BASO% 0.2 % (Normal) Range: 0-1 EO% 5.8 % (Abnormal) Range: 0-5 LY% 32.9 % (Normal) Range: 19-41 MONO% 13.6 % (Abnormal) Range: 0-10 MPV 8.1 fL (Normal) Range: 6.5-12.0 NEUT% 47.5 % (Normal) Range: 47-70 PLT 184 K/mm3 (Normal) Range: 150-450 RDW 14.1 % (Normal) Range: 11.6-14.6 HCT 37.7 % (Abnormal) Range: 40-54 HGB 12.9 g/dL (Abnormal) Range: 14.0-18.0 MCH 29.8 pg (Normal) Range: 27.0-32.0 MCHC 34.3 g/dL (Normal) Range: 32-36 MCV 86.9 fL (Normal) Range: 80-94 RBC 4.34 {M/mm3} (Abnormal) Range: 4.6-6.2 WBC 4.0 K/mm3 (Abnormal) Range: 4.4-11.0 :03 COMP METABOLIC CL 105 mmol/L (Normal) Range: 98-107 CO2 30.0 mmol/L (Normal) Range: 21.0-32.0 GAP 6 (Normal) Range: 5-15 K 4.2 mmol/L (Normal) Range: 3.5-5.1 NA 141 mmol/L (Normal) Range: 136-145 T BILI 0.40 mg/dL (Normal) Range: 0.00-1.00 ALK P 59 U/L (Normal) Range: 50-136 ALT 29 U/L (Normal) Range: 12-78 AST 14 U/L (Abnormal) Range: 15-37 A/G 1.2 {RATIO} (Normal) Range: 0.9-2.4 CA 9.0 mg/dL (Normal) Range: 8.5-10.1 ALB 3.5 g/dL (Normal) Range: 3.4-5.0 GLOB 3.0 g/dL (Normal) Range: 2.7-4.2 BUN/CRE 18.0 {RATIO} (Normal) Range: 10-20 T PROT 6.5 g/dL (Normal) Range: 6.4-8.2 EST GFR 84 mL/min (Normal) EST GFR - AA 102 mL/min (Normal) CREAT,SERUM 1.0 mg/dL (Normal) Range: 0.8-1.3 BUN 18 mg/dL (Normal) Range: 7-18 GLU 93 mg/dL (Normal) Range: 70-110 :03 ESR SED RATE 4 mm/h (Normal) Range: 0-20 :04 CBCD,SMEAR DIFF BAND 2 % (Normal) Range: 0-5 EOS 2 % (Normal) Range: 0-5 LYMPH 27 % (Normal) Range: 19-41 MONOCYTE 10 % (Normal) Range: 0-10 PLT EST SeeNote (Normal) Comments: Result: ADEQUATE RED CELL MORPH SeeNote {NORMAL} (Normal) Comments: Result: NORM C+C SEGS 59 % (Normal) Range: 47-70 ABSOLUTE NEUT 2.8 3/uL (Normal) Range: 2.0-7.7 CELLS COUNTED 100 (Normal) HCT 39.1 % (Abnormal) Range: 40-54 HGB 13.1 g/dL (Abnormal) Range: 14.0-18.0 MCH 29.2 pg (Normal) Range: 27.0-32.0 MCHC 33.4 g/dL (Normal) Range: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 longaxes. Gated images were also obtained. Review of the stress images demonstrate normal upt clint of tracer notedin all areas of the myocardium. The resting images similarlydemonstrate normal uptake of tracer in all areas of the myocardium.The gated ejection fraction is 64%. CONCLUSION1. Juanita l exercise myocardial perfusion scan at a high work load.2. Preserved ejection fraction. Reported By: DIANA GARCIA M.D. :09 BRAIN W/WO CONTRAST Radiology Report See Note (Normal) Comments: Exam Number: [id number] MR ANGIOGRAM OF BRAIN CLINICAL STATEMENTHeadache, cephalgia. Tingling sensation. TECHNIQUE Noncontrast 3-D [id number] MRA. FINDINGSNo MRA evidence of aneurysm or atheros clerotic stenosis of the circleof Jordan or intracranial vertebrobasilar artery system is seen. IMPRESSIONNormal MRA of the parasellar region. MRI OF BRAIN CLINICAL STATEMENT Cephalgia. Paresthesia. Stroke. TECHNIQUEAfter obtaining T1 weighted sagittal computer forensics analyst scan, T1, proton density,T2 weighted, and FLAIR sequences axial scans of the entire brain wereobtained. After IV in jection of Gadolinium, T1 weighted axial andcoronal scans were obtained. FINDINGSNo intracranial bleeding, midline shift, hydrocephalus, mass, Chiarimalformation, or brain stem pathology is evident. No abnormal contrast enhancement or mass is noted. The major cerebral arteries and dural venous sinuses appear to begrossly normal. The orbits, mastoid areas, calvarium, and meninges are unremarkable. Mini mal bilateral chronic maxillary sinusitis with minimal mucosalwall thickening is seen. IMPRESSION Normal MRI of the brain. Reported By: CHERRY REYES M.D. :09 MRA HEAD WITHOUT CONTRAST Radiology Report See Note (Normal) Comments: Exam Number: [id number] MR ANGIOGRAM OF BRAIN CLINICAL STATEMENTHeadache, cephalgia. Tingling sensation. TECHNIQUE Noncontrast 3-D [id number] MRA. FINDINGSNo MRA evidence of aneurysm or atheros clerotic stenosis of the circleof Jordan or intracranial vertebrobasilar artery system is seen. IMPRESSIONNormal MRA of the parasellar region. MRI OF BRAIN CLINICAL STATEMENT Cephalgia. Paresthesia. Stroke. TECHNIQUEAfter obtaining T1 weighted sagittal computer forensics analyst scan, T1, proton density,T2 weighted, and FLAIR sequences axial scans of the entire brain wereobtained. After IV in jection of Gadolinium, T1 weighted axial andcoronal scans were obtained. FINDINGSNo intracranial bleeding, midline shift, hydrocephalus, mass, Chiarimalformation, or brain stem pathology is evident. No abnormal contrast enhancement or mass is noted. The major cerebral arteries and dural venous sinuses appear to begrossly normal. The orbits, mastoid areas, calvarium, and meninges are unremarkable. Mini mal bilateral chronic maxillary sinusitis with minimal mucosalwall thickening is seen. IMPRESSION Normal MRI of the brain. Reported By: CHERRY REYES M.D. :32 CBCD,SMEAR DIFF CELLS COUNTED 100 (Normal) EOS 2 % (Normal) Range: 0-5 HCT 45.0 % (Normal) Range: 40-54 HGB 15.2 g/dL (Normal) Range: 14.0-18.0 LYMPH 37 % (Normal) Range: 19-41 MCH 28.9 pg (Normal) Range: 27.0-32.0 MCHC 33.7 g/dL (Normal) Range: 32-36 MCV 85.8 fL (Normal) Range: 80-94 MONOCYTE 1 % (Normal) Range: 0-10 PLT 252 K/mm3 (Normal) Range: 150-450 PLT EST SeeNote (Normal) Comments: Result: ADEQUATE RBC 5.25 {M/mm3} (Normal) Range: 4.6-6.2 RDW 14.0 % (Normal) Range: 11.6-14.6 RED CELL MORPH SeeNote {NORMAL} (Normal) Comments: Result: NORM C&C SEGS 60 % (Normal) Range: 47-70 WBC 8.3 K/mm3 (Normal) Range: 4.4-11.0 :32 COMP METABOLIC A/G 1.1 {RATIO} (Normal) Range: 0.9-2.4 ALB 4.0 g/dL (Normal) Range: 3.4-5.0 ALK P 83 U/L (Normal) Range: 50-136 ALT 39 [iU]/L (Normal) Range: 30-65 AST 14 U/L (Abnormal) Range: 15-37 BUN 18 mg/dL (Normal) Range: 7-18 BUN/CRE 20.0 {RATIO} (Normal) Range: 10-20 CA 9.1 mg/dL (Normal) Range: 8.5-10.1 CL 101 mmol/L (Normal) Range: 98-107 CO2 30.0 mmol/L (Normal) Range: 21.0-32.0 Comments: Please Note Reference Interval Change CREAT,SERUM 0.9 mg/dL (Normal) Range: 0.8-1.3 GAP 7 (Normal) Range: 5-15 GLOB 3.5 g/dL (Normal) Range: 2.7-4.2 Comments: Please Note Reference Interval Change GLU 104 mg/dL (Normal) Range: 70-110 K 3.9 mmol/L (Normal) Range: 3.5-5.1 NA 138 mmol/L (Normal) Range: 136-145 T BILI 0.25 mg/dL (Normal) Range: 0.00-1.00 T PROT 7.5 g/dL (Normal) Range: 6.4-8.2 :32 PRO TIME INR 1.0 (Normal) PROTIME 12.0 s (Normal) Range: 10.6-13.2 :32 PTT 34.0 s (Normal) Range: 22.6-34.6 Comments: Please note revised PTT reference range effective 06. :32 TSH 1.36 {uIU/mL} (Normal) Range: 0.34-4.82 :32 VITAMIN B12 1438 pg/mL (Abnormal) Range: 211-911 :16 C-REACTIVE PROT 7.87 mg/L (Abnormal) Range: 0.0-6.0 Comments: Test performed using the Dimension C-Reactive ProteinExtended Range assay method. This assay meets the AHA/CDC 2003 recommendations fordetermining patients at high risk for cardiovasculardisease. Reference: High risk CRP >3.0 mg/L :16 LIPID CHOL 145 mg/dL (Normal) Comments: <200 mg/dL Desirable 200-240 mg/dL Borderline >240 mg/dL High Risk HDL 46 mg/dL (Normal) Comments: Reference Range HDL <40 mg/dL Low HDL Cholesterol HDL >or= 60 mg/dL High HDL Cholesterol LDL 90 mg/dL (Normal) Range: 0-130 TRIG 45 mg/dL (Normal) Comments: Serum Triglycerides Reference Interval Normal <150 mg/dL Borderline high 150 - 199 mg/dL High 200 - 499 mg/dL Very High > or = 500 mg/dL VLDL 9 mg/dL (Normal) Range: :22 C-REACTIVE PROT 4.88 mg/L (Normal) Range: 0.0-6.0 Comments: Test performed using the Dimension C-Reactive ProteinExtended Range assay method. This assay meets the AHA/CDC 2003 recommendations fordetermining patients at high risk for cardiovasculardisease. Reference: High risk CRP >3.0 mg/L :22 LIPID CHOL 134 mg/dL (Normal) Comments: <200 mg/dL Desirable 200-240 mg/dL Borderline >240 mg/dL High Risk HDL 44 mg/dL (Normal) Comments: Reference Range HDL <40 mg/dL Low HDL Cholesterol HDL >or= 60 mg/dL High HDL Cholesterol LDL 76 mg/dL (Normal) Range: 0-130 TRIG 71 mg/dL (Normal) Comments: Serum Triglycerides Reference Interval Normal <150 mg/dL Borderline high 150 - 199 mg/dL High 200 - 499 mg/dL Very High > or = 500 mg/dL VLDL 14 mg/dL (Normal) Range: 40 :50 C-REACTIVE PROT 3.65 mg/L (Normal) Range: 0.0-6.0 Comments: Test performed using the Dimension C-Reactive ProteinExtended Range assay method. This assay meets the AHA/CDC 2003 recommendations fordetermining patients at high risk for cardiovasculardisease. Reference: High risk CRP >3.0 mg/L :50 PFLIP CHOL 117 mg/dL (Normal) Comments: <200 mg/dL Desirable 200-240 mg/dL Borderline >240 mg/dL High Risk HDL 49 mg/dL (Normal) Comments: Reference Range HDL <40 mg/dL Low HDL Cholesterol HDL >or= 60 mg/dL High HDL Cholesterol LDL 61 mg/dL (Normal) Range: 0-130 TRIG 33 mg/dL (Normal) Comments: Serum Triglycerides Reference Interval Normal <150 mg/dL Borderline high 150 - 199 mg/dL High 200 - 499 mg/dL Very High > or = 500 mg/dL VLDL 7 mg/dL (Normal) Range: 5-40 Plan of Care Name Dates Details Instructions Encounter for screening for malignant neoplasm of colon (Renamed from Special screening for malignant neoplasms, colon) : *Colon Cancer Screening Indication: Encounter for screening for malignant neoplasm of colon (Renamed from Special screening for malignant neoplasms, colon) Hypertension : HTN/CAD Red Flags Indication: Hypertension Hypertension : Continue Current Prescription(s) Indication: Hypertension Abnormal glucose tolerance test (Renamed from Abnormal glucose tolerance test (GTT)) : Follow up in 4 months Indication: Abnormal glucose tolerance test (Renamed from Abnormal glucose tolerance test (GTT)) Abnormal glucose tolerance test (Renamed from Abnormal glucose tolerance test (GTT)) : Reviewed Lab Indication: Abnormal glucose tolerance test (Renamed from Abnormal glucose tolerance test (GTT)) Abnormal glucose tolerance test (Renamed from Abnormal glucose tolerance test (GTT)) : Diet, Exercise, and Wt loss Indication: Abnormal glucose tolerance test (Renamed from Abnormal glucose tolerance test (GTT)) Abnormal glucose tolerance test (Renamed from Abnormal glucose tolerance test (GTT)) : *Diabetes Education Indication: Abnormal glucose tolerance test (Renamed from Abnormal glucose tolerance test (GTT)) Generalized pruritus : Reviewed Lab Indication: Generalized pruritus Rash : Follow up if no improvement or if symptoms worsen Indication: Rash Vitamin D deficiency : Reviewed Lab Indication: Vitamin D deficiency Rash : Reviewed Lab Indication: Rash Nonsmoker : Eprescribed prescriptions (G8553) Indication: Nonsmoker Asthma : Continue Current Prescription(s) Indication: Asthma Abnormal glucose tolerance test (Renamed from Abnormal glucose tolerance test (GTT)) : Follow up in 4 months Indication: Abnormal glucose tolerance test (Renamed from Abnormal glucose tolerance test (GTT)) Hypertension : Diet, Exercise, and Wt loss Indication: Hypertension Hypertension : HTN/CAD Red Flags Indication: Hypertension Abnormal glucose tolerance test (Renamed from Abnormal glucose tolerance test (GTT)) : Reviewed Lab Indication: Abnormal glucose tolerance test (Renamed from Abnormal glucose tolerance test (GTT)) Nonsmoker : Eprescribed prescriptions (G8553) Indication: Nonsmoker Right knee pain, unspecified chronicity : Knee Injections-R Indication: Right knee pain, unspecified chronicity Right knee pain, unspecified chronicity : Reviewed Diagnostic Tests Indication: Right knee pain, unspecified chronicity 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 Indication: Rheumatoid arthritis Hypertension : Diet, Exercise, and Wt loss Indication: Hypertension Hypertension : HTN/CAD Red Flags Indication: Hypertension GERD with apnea : GERD Education Indication: GERD with apnea Abnormal glucose tolerance test (Renamed from Abnormal glucose tolerance test (GTT)) : Follow up in 4 months Indication: Abnormal glucose tolerance test (Renamed from Abnormal glucose tolerance test (GTT)) Abnormal glucose tolerance test (Renamed from Abnormal glucose tolerance test (GTT)) : Reviewed Lab Indication: Abnormal glucose tolerance test (Renamed from Abnormal glucose tolerance test (GTT)) Abnormal glucose tolerance test (Renamed from Abnormal glucose tolerance test (GTT)) : Eprescribed prescriptions (G8553) Indication: Abnormal glucose tolerance test (Renamed from Abnormal glucose tolerance test (GTT)) Hypertension : BP MONITORING - SELF Indication: Hypertension GERD with apnea : GERD Education Indication: GERD with apnea 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 Lab Indication: Rheumatoid arthritis 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 Indication: Rheumatoid arthritis Abnormal glucose tolerance test (Renamed from Abnormal glucose tolerance test (GTT)) : Follow up in 4 months Indication: Abnormal glucose tolerance test (Renamed from Abnormal glucose tolerance test (GTT)) Hypertension : Diet, Exercise, and Wt loss Indication: Hypertension Hypertension : HTN/CAD Red Flags Indication: Hypertension Nonsmoker : Eprescribed prescriptions (G8553) Indication: Nonsmoker Skin lesion : Skin Infection - Signs and Symptoms Indication: Skin lesion Skin lesion : Shave Biopsy without Epi Indication: Skin lesion Abnormal glucose tolerance test (Renamed from Abnormal glucose tolerance test (GTT)) : Reviewed Lab Indication: Abnormal glucose tolerance test (Renamed from Abnormal glucose tolerance test (GTT)) GERD with apnea : GERD Education Indication: GERD with apnea Asthma : Continue Current Prescription(s) Indication: Asthma Abnormal glucose tolerance test (Renamed from Abnormal glucose tolerance test (GTT)) : Follow up in 4 months Indication: Abnormal glucose tolerance test (Renamed from Abnormal glucose tolerance test (GTT)) Hypertension : Diet, Exercise, and Wt loss Indication: Hypertension Hypertension : HTN/CAD Red Flags Indication: Hypertension Abnormal glucose tolerance test (Renamed from Abnormal glucose tolerance test (GTT)) : Diet, Exercise, and Wt loss Indication: Abnormal glucose tolerance test (Renamed from Abnormal glucose tolerance test (GTT)) Abnormal glucose tolerance test (Renamed from Abnormal glucose tolerance test (GTT)) : *Diabetes Education Indication: Abnormal glucose tolerance test (Renamed from Abnormal glucose tolerance test (GTT)) Hypertension : Continue Current Prescription(s) Indication: Hypertension Vitamin D deficiency : Continue Current Prescription(s) Indication: Vitamin D deficiency 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 Indication: Asthma Asthma : Continue Current Prescription(s) Indication: Asthma Abnormal glucose tolerance test (Renamed from Abnormal glucose tolerance test (GTT)) : Follow up in 3 months Indication: Abnormal glucose tolerance test (Renamed from Abnormal glucose tolerance test (GTT)) Hypertension : HTN/CAD Red Flags Indication: Hypertension Abnormal glucose tolerance test (Renamed from Abnormal glucose tolerance test (GTT)) : *Diabetes Education Indication: Abnormal glucose tolerance test (Renamed from Abnormal glucose tolerance test (GTT)) Abnormal glucose tolerance test (Renamed from Abnormal glucose tolerance test (GTT)) : Follow up if no improvement or if symptoms worsen Indication: Abnormal glucose tolerance test (Renamed from Abnormal glucose tolerance test (GTT)) Hypertension : Continue Current Prescription(s) Indication: Hypertension Abnormal glucose tolerance test (Renamed from Abnormal glucose tolerance test (GTT)) : Follow up in 4 months Indication: Abnormal glucose tolerance test (Renamed from Abnormal glucose tolerance test (GTT)) Asthma : Continue Current Prescription(s) Indication: Asthma Hypertension : HTN/CAD Red Flags Indication: Hypertension GERD with apnea : GERD Education Indication: GERD with apnea Abnormal glucose tolerance test (Renamed from Abnormal glucose tolerance test (GTT)) : Reviewed Lab Indication: Abnormal glucose tolerance test (Renamed from Abnormal glucose tolerance test (GTT)) Nonsmoker : Eprescribed prescriptions (G8553) Indication: Nonsmoker Abnormal glucose tolerance test (Renamed from Abnormal glucose tolerance test (GTT)) : Follow up in 4 months Indication: Abnormal glucose tolerance test (Renamed from Abnormal glucose tolerance test (GTT)) Hypertension : Diet, Exercise, and Wt loss Indication: Hypertension Hypertension : HTN/CAD Red Flags Indication: Hypertension Vitamin D deficiency : Continue Current Prescription(s) Indication: Vitamin D deficiency Abnormal glucose tolerance test (Renamed from Abnormal glucose tolerance test (GTT)) : Reviewed Lab Indication: Abnormal glucose tolerance test (Renamed from Abnormal glucose tolerance test (GTT)) 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 Indication: Rheumatoid arthritis Hypertension : Reviewed Lab Indication: Hypertension Abnormal glucose tolerance test (Renamed from Abnormal glucose tolerance test (GTT)) : Diet, Exercise, and Wt loss Indication: Abnormal glucose tolerance test (Renamed from Abnormal glucose tolerance test (GTT)) Abnormal glucose tolerance test (Renamed from Abnormal glucose tolerance test (GTT)) : *Diabetes Education Indication: Abnormal glucose tolerance test (Renamed from Abnormal glucose tolerance test (GTT)) Abnormal glucose tolerance test (Renamed from Abnormal glucose tolerance test (GTT)) : Reviewed Lab Indication: Abnormal glucose tolerance test (Renamed from Abnormal glucose tolerance test (GTT)) Hypertension : Follow up in 3 months- gen med Indication: Hypertension Encounter for screening for malignant neoplasm of colon (Renamed from Special screening for malignant neoplasms, colon) : *Colon Cancer Screening Indication: Encounter for screening for malignant neoplasm of colon (Renamed from Special screening for malignant neoplasms, colon) Carotid stenosis : Reviewed Diagnostic Tests Indication: Carotid stenosis Allergic rhinitis : Continue Current Prescription(s) Indication: Allergic rhinitis Asthma : Continue Current Prescription(s) Indication: Asthma Rheumatoid arthritis : Eprescribed prescriptions (G8553) Indication: Rheumatoid arthritis 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 Indication: Rheumatoid arthritis Itching : Eprescribed prescriptions (G8553) Indication: Itching Neck pain : Flu (Influenza) *: flu Indication: Neck pain Neck pain : Eprescribed prescriptions (G8553) Indication: Neck pain Hypertension : Eprescribed prescriptions (G8553) Indication: Hypertension Allergic rhinitis : Eprescribed prescriptions (G8553) Indication: Allergic rhinitis Serous conjunctivitis, unspecified laterality : Follow up if no improvement or if symptoms worsen Indication: Serous conjunctivitis, unspecified laterality Serous conjunctivitis, unspecified laterality : *Conjunctivitis Education Indication: Serous conjunctivitis, unspecified laterality Low back pain potentially associated with radiculopathy : Eprescribed prescriptions (G8553) Indication: Low back pain potentially associated with radiculopathy Hypertension : Flu (Influenza) *: flu Indication: Hypertension Hypertension : Follow up if no improvement or if symptoms worsen Indication: Hypertension Rheumatoid arthritis : Follow up in 2 weeks Indication: Rheumatoid arthritis Knee pain, left : Follow up in 2 weeks Indication: Knee pain, left Cough : Follow up if no improvement or if symptoms worsen Indication: Cough Pharyngitis, acute : Sore throat: diagnosis and treatment Indication: Pharyngitis, acute Allergic rhinitis : Allergic Rhinitis *: allergies Indication: Allergic rhinitis Pharyngitis, acute : Follow up if no improvement or if symptoms worsen Indication: Pharyngitis, acute Pharyngitis, acute : Sore throat: diagnosis and treatment Indication: Pharyngitis, acute Hypertension : Follow up in 4 months Indication: Hypertension Hypertension : High Blood Pressure (Essential Hypertension) *: blood pressure Indication: Hypertension Other specified viral infection, in conditions classified elsewhere and of unspecified site : *URI Symptoms Indication: Other specified viral infection, in conditions classified elsewhere and of unspecified site Other specified viral infection, in conditions classified elsewhere and of unspecified site : *URI Treatment Indication: Other specified viral infection, in conditions classified elsewhere and of unspecified site ACCIDENTAL FALL, SAME LEVEL, IN SPORTS : Reviewed Lab Indication: ACCIDENTAL FALL, SAME LEVEL, IN SPORTS ACCIDENTAL FALL, SAME LEVEL, IN SPORTS : Reviewed Diagnostic Tests Indication: ACCIDENTAL FALL, SAME LEVEL, IN SPORTS ACCIDENTAL FALL, SAME LEVEL, IN SPORTS : FOLLOW UP IN 1 WEEK Indication: ACCIDENTAL FALL, SAME LEVEL, IN SPORTS Other specified viral infection, in conditions classified elsewhere and of unspecified site : *URI Symptoms Indication: Other specified viral infection, in conditions classified elsewhere and of unspecified site Other specified viral infection, in conditions classified elsewhere and of unspecified site : *URI Treatment Indication: Other specified viral infection, in conditions classified elsewhere and of unspecified site Hypertension : Continue Current Prescription(s) Indication: Hypertension Hypertension : Diet and Exercise Indication: Hypertension Hypertension : FOLLOW UP IN 2 WEEKS Indication: Hypertension Other anxiety states : Antidepressant Usage Indication: Other anxiety states Planned Observations PSA (PROSTATE SPECIFIC ANTIGEN) (V76.44)Indication: Screening for prostate cancer On: 44-Wci-03995:06 Request CBC W/AUTO DIFF WBC ([id number])Indication: Eosinophilia On: 57-Scr-24508:03 Request HGB A1C (26259)Indication: Abnormal glucose tolerance test (Renamed from Abnormal glucose tolerance test (GTT)) On: 28-Feb-2018 Request Comments: standing order for q4mo for one yr HGB A1C (70871)Indication: Abnormal glucose tolerance test (Renamed from Abnormal glucose tolerance test (GTT)) On: 29-Nov-2017 Request CALCIFIDIOL (15239) VIT D 25Indication: Vitamin D deficiency On: :51 Request TSH ([id number])Indication: Abnormal glucose tolerance test (Renamed from Abnormal glucose tolerance test (GTT)) On: :51 Request URINALYSIS, W/ MICRO ([id number])Indication: Abnormal glucose tolerance test (Renamed from Abnormal glucose tolerance test (GTT)) On: :51 Request MICROALBUMIN: CREATININE RATIO ([id number]) AND ([id number])Indication: Abnormal glucose tolerance test (Renamed from Abnormal glucose tolerance test (GTT)) On: :51 Request METABOLIC PANEL, COMPREHENSIVE (80725)Indication: Abnormal glucose tolerance test (Renamed from Abnormal glucose tolerance test (GTT)) On: :51 Request LIPOPROTEIN, ANETA, BY NMR ([id number])Indication: Abnormal glucose tolerance test (Renamed from Abnormal glucose tolerance test (GTT)) On: :51 Request CBC W/AUTO DIFF WBC ([id number])Indication: Abnormal glucose tolerance test (Renamed from Abnormal glucose tolerance test (GTT)) On: :51 Request HGB A1C ([id number])Indication: Abnormal glucose tolerance test (Renamed from Abnormal glucose tolerance test (GTT)) On: 31-Oct-2017 Request Comments: standing order for q4mo for one yr HGB A1C (87963)Indication: Abnormal glucose tolerance test (Renamed from Abnormal glucose tolerance test (GTT)) On: 01-Aug-2017 Request HGB A1C (66552)Indication: Abnormal glucose tolerance test (Renamed from Abnormal glucose tolerance test (GTT)) On: 03-Jul-20178:49 Request Comments: standing order for q4mo for one yr HGB A1C (17810)Indication: Abnormal glucose tolerance test (Renamed from Abnormal glucose tolerance test (GTT)) On: 5-Zso-923059:10 Request CALCIFIDIOL ([id number]) VIT D 25Indication: Vitamin D deficiency On: 27-Feb-20178:29 Request TSH ([id number])Indication: Abnormal glucose tolerance test (Renamed from Abnormal glucose tolerance test (GTT)) On: 27-Feb-20178:28 Request URINALYSIS, W/ MICRO ([id number])Indication: Abnormal glucose tolerance test (Renamed from Abnormal glucose tolerance test (GTT)) On: : Request MICROALBUMIN: CREATININE RATIO ([id number]) AND ([id number])Indication: Abnormal glucose tolerance test (Renamed from Abnormal glucose tolerance test (GTT)) On: : Request METABOLIC PANEL, COMPREHENSIVE ([id number])Indication: Abnormal glucose tolerance test (Renamed from Abnormal glucose tolerance test (GTT)) On: Request LIPID PANEL ([id number])Indication: Abnormal glucose tolerance test (Renamed from Abnormal glucose tolerance test (GTT)) On: Request CBC W/AUTO DIFF WBC ([id number])Indication: Abnormal glucose tolerance test (Renamed from Abnormal glucose tolerance test (GTT)) On: : Request HGB A1C ([id number])Indication: Abnormal glucose tolerance test (Renamed from Abnormal glucose tolerance test (GTT)) On: 35-Mfe-776331:04 Request HGB A1C ([id number])Indication: Abnormal glucose tolerance test (Renamed from Abnormal glucose tolerance test (GTT)) On: 55-Gvo-388277:35 Request HGB A1C ([id number])Indication: Abnormal glucose tolerance test (Renamed from Abnormal glucose tolerance test (GTT)) On: 3-Yjy-303605:45 Request CALCIFIDIOL ([id number]) VIT D 25Indication: Vitamin D deficiency On: 5-Nja-621468:51 Request HGB A1C ([id number])Indication: Abnormal glucose tolerance test (Renamed from Abnormal glucose tolerance test (GTT)) On: 0-Ohh-341206:50 Request TSH ([id number])Indication: Abnormal glucose tolerance test (Renamed from Abnormal glucose tolerance test (GTT)) On: 2-Wdc-201679:50 Request URINALYSIS, W/ MICRO ([id number])Indication: Abnormal glucose tolerance test (Renamed from Abnormal glucose tolerance test (GTT)) On: :50 Request MICROALBUMIN: CREATININE RATIO ([id number]) AND ([id number])Indication: Abnormal glucose tolerance test (Renamed from Abnormal glucose tolerance test (GTT)) On: :50 Request METABOLIC PANEL, COMPREHENSIVE ([id number])Indication: Abnormal glucose tolerance test (Renamed from Abnormal glucose tolerance test (GTT)) On: :50 Request LIPID PANEL ([id number])Indication: Abnormal glucose tolerance test (Renamed from Abnormal glucose tolerance test (GTT)) On: :50 Request CBC W/AUTO DIFF WBC ([id number])Indication: Abnormal glucose tolerance test (Renamed from Abnormal glucose tolerance test (GTT)) On: :50 Request HGB A1C ([id number])Indication: Abnormal glucose tolerance test (Renamed from Abnormal glucose tolerance test (GTT)) On: 20-Bts-475594:11 Request HGB A1C ([id number])Indication: Abnormal glucose tolerance test (Renamed from Abnormal glucose tolerance test (GTT)) On: :32 Request Lipid Panel ([id number])Indication: Abnormal glucose tolerance test (Renamed from Abnormal glucose tolerance test (GTT)) On: 66-Uwq-689174:55 Request TSH ([id number])Indication: Neck pain On: :54 Request CBC, Platelets & Auto Diff ([id number])Indication: Hypertension On: :54 Request Metabolic Panel, Comprehensive ([id number])Indication: Hypertension On: :54 Request CALCIFEDIOL ([id number])Indication: Vitamin D deficiency On: :53 Request HGB A1C (68685)Indication: Hyperglycemia On: 93-Vha-87848:49 Request TSH ([id number])Indication: Other anxiety states On: :45 Request FECAL OCCULT- Tubes sent home ([id number])Indication: Encounter for screening for malignant neoplasm of colon (Renamed from Special screening for malignant neoplasms, colon) On: :43 Request CALCIFIDIOL (76184) VIT D 25Indication: Vitamin D deficiency On: :43 Request URINALYSIS, W/ MICRO ([id number])Indication: Hypertension On: :32 Request MICROALBUMIN: CREATININE RATIO (56810) AND ([id number])Indication: Hypertension On: :32 Request LIPID PANEL ([id number])Indication: Hypertension On: :32 Request Urinalysis, Office (67793)Indication: Abnormal urine On: :12 Request URINE YUE CULTURE (MALIA COL COUNT) ([id number])Indication: Abnormal urine On: :12 Request PSA (PROSTATE SPECIFIC ANTIGEN) (V76.44)Indication: Screening for prostate cancer On: :14 Request URINALYSIS, W/ MICRO ([id number])Indication: Hypertension On: :14 Request CBC W/AUTO DIFF WBC ([id number])Indication: Hypertension On: :14 Request METABOLIC PANEL, COMPREHENSIVE (22051)Indication: Hypertension On: :14 Request URINE YUE CULTURE-IDENTIFICATN ([id number])Indication: Abnormal urine On: :38 Request PSA (PROSTATE SPECIFIC ANTIGEN) (V76.44)Indication: Screening for prostate cancer On: :03 Request URINALYSIS, W/ MICRO ([id number])Indication: Hypertension On: :02 Request CBC WITH MANUAL DIFF ([id number])Indication: Hypertension On: :02 Request METABOLIC PANEL, COMPREHENSIVE ([id number])Indication: Hypertension On: 19-Lkm-258074:02 Request TSH ([id number])Indication: SYMPTOMS INVOLVING SKIN AND OTHER INTEGUMENTARY TISSUE, FLUSHING On: 69-Hav-777410:25 Request CBC WITH MANUAL DIFF ([id number])Indication: SYMPTOMS INVOLVING SKIN AND OTHER INTEGUMENTARY TISSUE, FLUSHING On: 67-Gbh-638745:25 Request CBC WITH MANUAL DIFF ([id number])Indication: SYMPTOMS INVOLVING SKIN AND OTHER INTEGUMENTARY TISSUE, FLUSHING On: 27-Pjd-522564:35 Request TSH ([id number])Indication: SYMPTOMS INVOLVING SKIN AND OTHER INTEGUMENTARY TISSUE, FLUSHING On: 03-Idp-791813:35 Request SEROTONIN ([id number])Indication: SYMPTOMS INVOLVING SKIN AND OTHER INTEGUMENTARY TISSUE, FLUSHING On: 72-Wos-227665:34 Request METANEPHRINES - URINE ([id number])Indication: SYMPTOMS INVOLVING SKIN AND OTHER INTEGUMENTARY TISSUE, FLUSHING On: 16-Zyb-389238:34 Request CATECHOLAMINES TOTAL, URINE ([id number])Indication: SYMPTOMS INVOLVING SKIN AND OTHER INTEGUMENTARY TISSUE, FLUSHING On: :34 Request URINE VMA ([id number])Indication: SYMPTOMS INVOLVING SKIN AND OTHER INTEGUMENTARY TISSUE, FLUSHING On: 25-Aej-674653:34 Request PSA (PROSTATE SPECIFIC ANTIGEN) (30293)Indication: Screening for prostate cancer On: 8-Sua-542762:57 Request Metabolic Panel, Comprehensive ([id number])Indication: Hypertension On: 0-Ffw-973110:56 Request CBC with manual diff ([id number])Indication: Hypertension On: :56 Request URINALYSIS ([id number])Indication: Hypertension On: 7-Lrp-889984:56 Request Lipid Panel ([id number])Indication: SCREENING FOR HYPERLIPIDEMIA On: :56 Request Metabolic Panel, Comprehensive ([id number])Indication: Hypertension On: 3-Xju-681330:56 Request Comments: to be done in 1-2 weeks YUE CULTURE-OTHER ([id number])Indication: Pharyngitis, acute On: 45-Grp-639551:19 Request Rapid Strep Test, Office (59503)Indication: Pharyngitis, acute On: 57-Kgc-459446:38 Request LIPID PANEL ([id number])Indication: Hypertension On: 9-Spi-786284:41 Request CBC WITH MANUAL DIFF ([id number])Indication: Hypertension On: :41 Request METABOLIC PANEL, COMPREHENSIVE ([id number])Indication: Hypertension On: 5-Qli-624270:41 Request URINALYSIS, W/ MICRO ([id number])Indication: Abnormal urine On: 8-Sgq-732958:41 Request Vitamin D Hydroxy (40395)Indication: Paresthesia On: :55 Request URINALYSIS, W/ MICRO ([id number])Indication: Hypertension On: :52 Request METABOLIC PANEL, COMPREHENSIVE (60348)Indication: Hypertension On: :52 Request LIPID PANEL ([id number])Indication: Carotid stenosis On: :51 Request PSA (PROSTATE SPECIFIC ANTIGEN) (V76.44)Indication: Screening for prostate cancer On: 8-Nle-569123:51 Request CBC WITH MANUAL DIFF ([id number])Indication: Iron deficiency anemia, unspecified On: :51 Request CBC WITH MANUAL DIFF ([id number])Indication: Iron deficiency anemia, unspecified On: 13-Jxk-938923:11 Request IRON BINDING CAPACITY (TIBC) (60376)Indication: Iron deficiency anemia, unspecified On: 86-Pcd-179215:11 Request FERRITIN ([id number])Indication: Iron deficiency anemia, unspecified On: 69-Guf-995102:11 Request IRON ([id number])Indication: Iron deficiency anemia, unspecified On: 27-Nag-056192:11 Request CBC WITH MANUAL DIFF ([id number])Indication: Iron deficiency anemia, unspecified On: :17 Request LIPID PANEL ([id number])Indication: Hypertension On: :17 Request METABOLIC PANEL, COMPREHENSIVE (40268)Indication: Hypertension On: :17 Request IRON BINDING CAPACITY (TIBC) ([id number])Indication: Iron deficiency anemia, unspecified On: :16 Request FERRITIN ([id number])Indication: Iron deficiency anemia, unspecified On: :16 Request IRON ([id number])Indication: Iron deficiency anemia, unspecified On: :16 Request Vitamin D Hydroxy (81758)Indication: Rheumatoid arthritis On: 91-Zbl-746159:58 Request CBC WITH MANUAL DIFF ([id number])Indication: Iron deficiency anemia, unspecified On: :58 Request FERRITIN ([id number])Indication: Iron deficiency anemia, unspecified On: 50-Olb-691803:58 Request IRON BINDING CAPACITY (TIBC) ([id number])Indication: Iron deficiency anemia, unspecified On: 23-Spg-133014:58 Request IRON ([id number])Indication: Iron deficiency anemia, unspecified On: 64-Wmt-796018:58 Request PSA (PROSTATE SPECIFIC ANTIGEN) (V76.44)Indication: Screening for prostate cancer On: 49-Bpg-489565:48 Request FOLIC ACID SERUM (47074)Indication: Anemia NEC On: :40 Request VITAMIN B-12 (CYANOCOBALAMIN) ([id number])Indication: Anemia NEC On: :40 Request RETICULOCYTE COUNT MANUL ([id number])Indication: Anemia NEC On: :40 Request LDH (LD) (LACTATE DEHYDROGENASE) ([id number])Indication: Anemia NEC On: :40 Request IRON BINDING CAPACITY (TIBC) (32146)Indication: Anemia NEC On: :40 Request FERRITIN ([id number])Indication: Anemia NEC On: :40 Request IRON ([id number])Indication: Anemia NEC On: :40 Request CBC, PLATELETS & AUT DIFF ([id number])Indication: Anemia NEC On: :40 Request Metabolic Panel, Comprehensive (68203)Indication: Abdominal pain, acute, right upper quadrant On: :44 Request CBC with manual diff ([id number])Indication: Abdominal pain, acute, right upper quadrant On: :43 Request HEPATIC FUNCTION PANEL ([id number])Indication: Abdominal pain, acute, right upper quadrant On: :41 Request CBC WITH MANUAL DIFF ([id number])Indication: Rheumatoid arthritis On: 08-Ivw-531913:46 Request METABOLIC PANEL, COMPREHENSIVE ([id number])Indication: Hypertension On: 27-Sjy-097636:45 Request C-REACTIVE PROTEIN ([id number])Indication: Raynaud's syndrome On: 28-Ksr-748884:26 Request SED RATE ERYTHROCYTE ([id number])Indication: Raynaud's syndrome On: 43-Kxl-096542:26 Request RHEUMATOID FACTOR-QUANT ([id number])Indication: Raynaud's syndrome On: 68-Moa-608926:26 Request THERESA (ANTINUCLEAR ANTIBODY) ([id number])Indication: Raynaud's syndrome On: 55-Fbb-163753:26 Request PSA (PROSTATE SPECIFIC ANTIGEN) (V76.44)Indication: Screening for prostate cancer On: 57-Wnb-339117:47 Request URINALYSIS, W/ MICRO ([id number])Indication: Hypertension On: 96-Nem-108860:47 Request LIPID PANEL ([id number])Indication: Hypertension On: 73-Oed-233942:46 Request TSH ([id number])Indication: Rash On: 31-Obd-214839:46 Request METABOLIC PANEL, COMPREHENSIVE (12914)Indication: Hypertension On: 81-Bth-345067:46 Request CBC WITH MANUAL DIFF ([id number])Indication: Hypertension On: 90-All-574824:46 Request Metabolic Panel, Basic ([id number])Indication: Hypertension On: 3-Tga-635482:11 Request HEPATIC FUNCTION PANEL ([id number])Indication: onychomycosis On: :27 Request Comments: q month for 2 months VITAMIN B-12 (CYANOCOBALAMIN) ([id number])Indication: Anemia, unspecified On: :24 Request RETICULOCYTE COUNT MANUL ([id number])Indication: Anemia, unspecified On: :24 Request LDH (LD) (LACTATE DEHYDROGENASE) ([id number])Indication: Anemia, unspecified On: :24 Request IRON BINDING CAPACITY (TIBC) (15397)Indication: Anemia, unspecified On: :24 Request IRON ([id number])Indication: Anemia, unspecified On: :24 Request CBC WITH MANUAL DIFF ([id number])Indication: Anemia, unspecified On: 6-Fzg-686146:24 Request HEPATIC FUNCTION PANEL ([id number])Indication: onychomycosis On: 5-Lqg-852480:15 Request TSH ([id number])Indication: Hypertension On: 24-Uxn-843961:15 Request LIPID PANEL ([id number])Indication: Hypertension On: 67-Unt-841405:15 Request METABOLIC PANEL, COMPREHENSIVE ([id number])Indication: Hypertension On: 26-Rsb-064594:15 Request CBC WITH MANUAL DIFF ([id number])Indication: Hypertension On: 37-Ohh-538358:14 Request PSA (PROSTATE SPECIFIC ANTIGEN) (V76.44)Indication: Screening for prostate cancer On: 88-Xvq-223418:12 Request PTT (Activated Partial Thromboplastin Time) ([id number])Indication: Paresthesia On: 33-Jgj-326063:52 Request PT (Prothrobim Time) ([id number])Indication: Paresthesia On: 41-Vna-110368:52 Request TSH ([id number])Indication: Paresthesia On: 30-Sgk-052184:52 Request METABOLIC PANEL, COMPREHENSIVE ([id number])Indication: Paresthesia On: 70-Emn-750316:52 Request CBC WITH MANUAL DIFF ([id number])Indication: Paresthesia On: 50-Hax-094219:52 Request VITAMIN B-12 (CYANOCOBALAMIN) ([id number])Indication: Paresthesia On: 86-Cjf-494001:52 Request C-REACTIVE PROTEIN ([id number])Indication: Hypertension On: 29-Ebp-919735:04 Request LIPID PANEL ([id number])Indication: Hypertension On: 20-Cwa-063037:04 Request URINALYSIS W/O MICRO ([id number])Indication: Hypertension On: 08-Pqr-996029:02 Request TSH ([id number])Indication: Hypertension On: 42-Otm-362260:02 Request CBC WITH MANUAL DIFF ([id number])Indication: Hypertension On: 46-Emo-795319:02 Request METABOLIC PANEL, COMPREHENSIVE ([id number])Indication: Hypertension On: 96-Uta-418219:02 Request URINALYSIS W/O MICRO ([id number])Indication: Proteinuria On: 81-Ops-662807:02 Request Stool Guiac, Office ([id number])Indication: Encounter for screening for malignant neoplasm of rectum On: 26-Oem-819038:32 Request Planned Encounters Medical; 4 Month FU - On: 16-Jul-2018 8:00 [facility] Cari Coles DO, DO, Kathleen Planned Procedures Spirometry ([id number])By: Sanket VOGEL, On: 06-Nov-2017 Intent Cari Encinas DO Comments: normal and not taking inhalers -- treating inhalers instead ELECTROCARDIOGRAM, COMPLETE (ECG) On: 06-Nov-2017 Intent ([id number])By: Cari Coles DO Comments: nsr no acute chg -normal axis Cari Coles DO Radiology - Knee - RightBy: Sanket On: 25-Sep-2017 Cari Valentino DO, DO, Kathleen X-RAY OF FOOT, THREE VIEWS On: 25-Sep-2017 Intent ([id number])By: Crai Coles DO Comments: right Cari Coles DO ELECTROCARDIOGRAM, COMPLETE (ECG) On: 06-Aug-2016 Intent ([id number])By: Cari Coles DO Comments: nsr no acute chg Cari Coles DO Solu -Medrol Injection, 125 mg On: 20-Apr-2016 Intent ([id number])By: Cari Coles DO Comments: Lot:[id number]/13Dose:125mgRoute:imSite:l hipGiven By:FRANKLIN signed Cari Coles DO US DOPPLER CAROTID BILATERAL On: 02-Apr-2016 Intent ([id number])By: Cari Coles DO, DO, Kathleen Radiology - Knee - LeftBy: Fast DO, On: 23-Mar-2015 Intent Kathie A Radiology - Ankle - LeftBy: Fast DO, On: 23-Mar-2015 Intent Kathie A Venous Doppler - LeftBy: Fast DO, On: 07-Feb-2015 Intent Kathie A Comments: leg Nerve ConductionBy: Fast DO Kathie A On: 07-Feb-2015 Intent Comments: both upper ext EMGBy: Fast DO Kathie A On: 07-Feb-2015 Intent Comments: both upper ext Cartoid DopplerBy: Fast DO Kathie A On: 07-Jun-2014 Intent Solu -Medrol Injection, 125 mg On: 22-Feb-2014 Intent ([id number])By: Efren Uriarte CNP Comments: lot [id number] 3.32755 mgright gmIMas, [employer]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 Treatment ([id number])By: Laura On: 22-Feb-2014 Intent Efren CORONA Radiology - Shoulder - LeftBy: Fast On: 18-Jan-2014 Intent Kathie VOGEL A Comments: and ac joint COMP EYE EXAMINATION, ESTAB PATIENT On: 19-Oct-2013 Intent ([id number])By: Efren Uriarte CNP Nerve ConductionBy: Mckinley DO Kathie A On: 24-Jun-2013 Intent Comments: bilateral lower EMGBy: Fast DO Kathie A On: 24-Jun-2013 Intent Comments: bilateral lower ext- right greater than left Eprescribed prescriptions ([id number])By: On: 24-Apr-2013 Intent Mckinley VOGEL Kathie A MRI - Lumbar SpineBy: Fast DO Kathie On: 24-Apr-2013 Intent A MRI - Cervical SpineBy: Fast DO, On: 24-Apr-2013 Intent Kathie A ELECTROCARDIOGRAM, COMPLETE (ECG) On: 24-Apr-2013 Intent ([id number])By: Oscar Sen DOa A Comments: ekg showed normal sinus rhythym, normal axis, no acute st/t wave changes - early repolar Radiology - Cervical SpineBy: Fast On: 07-Jan-2013 Intent DO Kathie A Eprescribed prescriptions ([id number])By: On: 07-Jan-2013 Intent Karyn Hunter PHYSICAL THERAPY EVALUATION On: 23-Sep-2012 Intent ([id number])By: Laura Efren CORONA Radiology - Knee - LeftBy: Laura On: 23-Sep-2012 Intent Efren CORONA Comments: call with wet read to CIm Eprescribed prescriptions ([id number])By: On: 23-Sep-2012 Intent Laura Efren CORONA SPECIMEN HNDLNG/TRNSPRT, OFFC > LAB On: 14-Jul-2012 Intent ([id number])By: Naye Crain LPN Eprescribed prescriptions ([id number])By: On: 03-Apr-2012 Intent Fast DO, Kathie A Radiology - Lumbar SpineBy: Mckinley DO, On: 02-Apr-2012 Intent Kathie A Eprescribed prescriptions ([id number])By: On: 03-Mar-2012 Intent Karyn Hunter SPECIMEN HNDLNG/TRNSPRT, OFFC > LAB On: 13-Feb-2012 Intent ([id number])By: Naye Crain LPN Cartoid DopplerBy: Fast DO, Kathie A On: 31-Oct-2011 Intent Comments: nov Aerosol Treatment ([id number])By: Laura On: 04-May-2011 Intent Efren CORONA SPECIMEN HNDLNG/TRNSPRT, OFFC > LAB On: 04-May-2011 Intent ([id number])By: Naye Crain LPN Eprescribed prescriptions ([id number])By: On: 29-Jan-2011 Intent Fast DO, Kathie A FLU VAC, SPLIT, >3 YEARS, INTRAMUSC On: 29-Jan-2011 Intent ([id number])By: Karyn Hunter Comments: refuses TDAP VACCINE >7 IM (40901)By: Al On: 24-Oct-2010 Intent Rocío Comments: Lot:[id number]:11/15/12Amt:prefilledRoute:IMSite:right deltGiven By: STACIA Kimbrough Cartoid DopplerBy: Fast DO, Kathie A On: 24-Oct-2010 Intent EKG ([id number])By: Karyn Hunter On: 24-Oct-2010 Intent Comments: ekg showed normal sinus rhythym, normal axis, no acute st/t wave changes ivcd- early re[polar no change Ultrasound - Abdomen CompleteBy: On: 29-Sep-2009 Intent Efren Uriarte CNP Comments: today and call wet read Heena Laura Ifkjhldiy-Her-Mxrbh ([id number])By: Laura On: 29-Sep-2009 Intent Efren CORONA Comments: today Radiology - ChestBy: Efren Uriarte CNP On: 29-Sep-2009 Intent E Comments: AP and lateral today ELECTROCARDIOGRAM, COMPLETE (ECG) On: 30-Nov-2008 Intent ([id number])By: Efren Uriarte CNP Bio Z ([id number])By: Efren Uriarte CNP On: 30-Nov-2008 Intent Nerve ConductionBy: Fast DO, Kathie A On: 23-Mar-2008 Intent Comments: both upper extremities EMGBy: Fast DO, Kathie A On: 23-Mar-2008 Intent Comments: both upper ext MRI - Thoracic SpineBy: Fast DO, On: 23-Mar-2008 Intent Kathie A MRI - Cervical SpineBy: Fast DO, On: 23-Mar-2008 Intent Kathie A Ultrasound - GallbladderBy: Fast DO, On: 27-Jan-2007 Intent Kathie A Nuclear Stress Test/Stress On: 27-Jan-2007 Intent SPECT/TreadmillBy: Fast DO, Kathie A Echo CompleteBy: Fast DO, Kathie A On: 13-Jan-2007 Intent Cartoid DopplerBy: Fast DO, Kathie A On: 13-Jan-2007 Intent EKG ([id number])By: Fast DO, Kathie A On: 13-Jan-2007 Intent Comments: ekg showed normal sinus rhythym, normal axis, no acute st/t wave changes MRI - BrainBy: Mckinley DO, Kathie A On: 13-Jan-2007 Intent Comments: with mra of brain- due to headache Planned Medications INJECTION, METHYLPREDNISOLONE SODIUM SUCCINATE, UP TO 125 MG Ordered: 22-Feb-2014 Pending Efren Uriarte CNP INJECTION, METHYLPREDNISOLONE SODIUM SUCCINATE, UP TO 125 MG Ordered: 20-Apr-2016 Pending Cari Coles DO, DO, Kathleen Instructions Name Dates Details Nonsmoker : How to access health information online Indication: Nonsmoker Nonsmoker : How to access health information online - Detail Indication: Nonsmoker Nonsmoker : Patient Instructions Indication: Nonsmoker Nonsmoker : How to access health information online Indication: Nonsmoker Nonsmoker : How to access health information online - Detail Indication: Nonsmoker Nonsmoker : Patient Instructions Indication: Nonsmoker Nonsmoker : How to access health information online Indication: Nonsmoker Nonsmoker : How to access health information online - Detail Indication: Nonsmoker Nonsmoker : Patient Instructions Indication: Nonsmoker Nonsmoker : How to access health information online Indication: Nonsmoker Nonsmoker : How to access health information online - Detail Indication: Nonsmoker Nonsmoker : How to access health information online Indication: Nonsmoker Nonsmoker : How to access health information online - Detail Indication: Nonsmoker Nonsmoker : Patient Instructions Indication: Nonsmoker Nonsmoker : How to access health information online Indication: Nonsmoker Nonsmoker : How to access health information online - Detail Indication: Nonsmoker Nonsmoker : Patient Instructions Indication: Nonsmoker Nonsmoker : How to access health information online Indication: Nonsmoker Nonsmoker : How to access health information online - Detail Indication: Nonsmoker Nonsmoker : Patient Instructions Indication: Nonsmoker Abnormal glucose tolerance test (Renamed from Abnormal glucose tolerance test (GTT)) : How to access health information online Indication: Abnormal glucose tolerance test (Renamed from Abnormal glucose tolerance test (GTT)) Abnormal glucose tolerance test (Renamed from Abnormal glucose tolerance test (GTT)) : How to access health information online - Detail Indication: Abnormal glucose tolerance test (Renamed from Abnormal glucose tolerance test (GTT)) Abnormal glucose tolerance test (Renamed from Abnormal glucose tolerance test (GTT)) : Patient Instructions Indication: Abnormal glucose tolerance test (Renamed from Abnormal glucose tolerance test (GTT)) Nonsmoker : How to access health information online Indication: Nonsmoker Nonsmoker : How to access health information online - Detail Indication: Nonsmoker Nonsmoker : Patient Instructions Indication: Nonsmoker Nonsmoker : How to access health information online Indication: Nonsmoker Nonsmoker : How to access health information online - Detail Indication: Nonsmoker Nonsmoker : Patient Instructions Indication: Nonsmoker Nonsmoker : How to access health information online Indication: Nonsmoker Nonsmoker : How to access health information online - Detail Indication: Nonsmoker Nonsmoker : Patient Instructions Indication: Nonsmoker Nonsmoker : How to access health information online Indication: Nonsmoker Nonsmoker : How to access health information online Indication: Nonsmoker BMI 45.0-49.9, adult : How to access health information online Indication: BMI 45.0-49.9, adult BMI 45.0-49.9, adult : How to access health information online - Detail Indication: BMI 45.0-49.9, adult BMI 45.0-49.9, adult : Patient Instructions Indication: BMI 45.0-49.9, adult Abnormal glucose tolerance test (Renamed from Abnormal glucose tolerance test (GTT)) : Patient Instructions Indication: Abnormal glucose tolerance test (Renamed from Abnormal glucose tolerance test (GTT)) Abnormal glucose tolerance test (Renamed from Abnormal glucose tolerance test (GTT)) : DISCONTINUED - HGB A1C (19649) Indication: Abnormal glucose tolerance test (Renamed from Abnormal glucose tolerance test (GTT)) BMI 45.0-49.9, adult : How to access health information online Indication: BMI 45.0-49.9, adult BMI 45.0-49.9, adult : How to access health information online - Detail Indication: BMI 45.0-49.9, adult BMI 45.0-49.9, adult : Patient Instructions Indication: BMI 45.0-49.9, adult Nonsmoker : How to access health information online Indication: Nonsmoker Nonsmoker : How to access health information online - Detail Indication: Nonsmoker Nonsmoker : Patient Instructions Indication: Nonsmoker Nonsmoker : How to access health information online - Detail Indication: Nonsmoker Nonsmoker : How to access health information online Indication: Nonsmoker Nonsmoker : Patient Instructions Indication: Nonsmoker Vitamin D deficiency : Patient Instructions Indication: Vitamin D deficiency Rheumatoid arthritis : How to access health information online Indication: Rheumatoid arthritis Rheumatoid arthritis : How to access health information online - Detail Indication: Rheumatoid arthritis Rheumatoid arthritis : Patient Instructions Indication: Rheumatoid arthritis Itching : How to access health information online Indication: Itching Itching : How to access health information online - Detail Indication: Itching Itching : Patient Instructions Indication: Itching Neck pain : How to access health information online Indication: Neck pain Neck pain : How to access health information online - Detail Indication: Neck pain Neck pain : Patient Instructions Indication: Neck pain Hypertension : Patient Instructions Indication: Hypertension Hypertension : How to access health information online Indication: Hypertension Hypertension : How to access health information online - Detail Indication: Hypertension Hypertension : Patient Instructions Indication: Hypertension Low back pain potentially associated with radiculopathy : Patient Instructions Indication: Low back pain potentially associated with radiculopathy Low back pain potentially associated with radiculopathy : Patient Instructions Indication: Low back pain potentially associated with radiculopathy Other intervertebral disc degeneration, lumbar region : Patient Instructions Indication: Other intervertebral disc degeneration, lumbar region Radiculopathy of leg : Patient Instructions Indication: Radiculopathy of leg Hypertension : Patient Instructions Indication: Hypertension Knee pain, left : Patient Instructions Indication: Knee pain, left Eczema : Patient Instructions Indication: Eczema Allergic rhinitis : Patient Instructions Indication: Allergic rhinitis Hypertension : Patient Instructions Indication: Hypertension Encounters Phone Encounter On: 17-Mar-2018 14:17 Encounter Diagnosis: Borderline diabetes End: 17-Mar-2018 16:08 [facility] Office Visit On: 12-Mar-2018 8:24 Encounter Reason: Follow up for chronic medical issues - The patient does not feel well, has good energy level and is sleeping well. Patient has been compliant with instructions. Current medication use: no side effects a End: 12-Mar-2018 9:08 nd compliant with dosing regimen. Patient sleeps 7 hours per night. Nutrition: balanced diet and no supplemental vitamins & iron. The medical issues the patient is following up for include All ident ified problems below, blood sugar issues, high blood pressure and high cholesterol. Note for Follow up for chronic medical issues: still itching -- and lab rev and normal --- derm appt is todaytalked to pharm and nothing has changed in regards to color or manufacurer with any rxburning aching sensation in R ankle lateral side and up leg -- def burning - comes and goes -- old injury dx as bone bruise one yr ago -, [ADDITIONAL REASON] Follow up tests - Date: (03/08/18 labs). Encounter Diagnosis: BMI 40.0-44.9, adult, Nonsmoker, Ear pressure, bilateral, ETD (Eustachian tube dysfunction), bilateral, Generalized pruritus, BPV (benign positional vertigo), bilateral , Rheumatoid arthritis (714.0), Immunocompromised, acquired, Vitamin D deficiency, Abnormal glucose tolerance test (Renamed from Abnormal glucose tolerance test (GTT)), Nutritional counseling, Hypertension (401.9), Pain in lateral right lower extremity, Eosinophilia, Screening for prostate cancer, Encounter for screening for malignant neoplasm of colon (Renamed from Special screening for malignant neoplasms, colon) [facility] Office Visit On: 05-Mar-2018 15:11 Encounter Reason: Itching - The last clinic visit was 2 month(s) ago. No changes in management were made at the last visit. Symptoms include skin erythema. Symptom locations include the scalp, the face, the neck, the abd End: 05-Mar-2018 15:44 omen and the forearms. Onset was sudden 2 month(s) ago. The symptoms occur constantly. The patient describes this as worsening. Symptoms are exacerbated by direct contact (heat). Associated symptoms inc lude heat intolerance. Previous presentation included skin erythema. Note for Itching: saw efren-- - had yrs ago with dr sen no etology found but went away, [ADDITIONAL REASON] Earache - The onset of the earache has been sudden and has been occurring in a persistent pattern for 1 month. The course has been constant. The earache is described as a moderate d ull ache and pressure sensation. It affects both ears. The pain affects the internal ear. There has been no associated decreased hearing. Note for Earache: if press on edge of ear by entry it releases the pressure temporarily and then builds back up -- took otc decog with no relief Encounter Diagnosis: BMI 40.0-44.9, adult, Nonsmoker, Ear pressure, bilateral, Generalized pruritus, ETD (Eustachian tube dysfunction), bilateral [facility] Office Visit On: 12-Feb-2018 8:05 Encounter Reason: Rash - Symptoms include pruritus and skin redness. Onset was 2 month(s) ago. 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 Also in past had allergy to vitamin., [ADDITIONAL REASON] ear pressure - Bilateral ear pressure on tragus , [ADDITIONAL REASON] Joint Pain - Note for Joint pain: Joint pain, in elbows Encounter Diagnosis: Nonsmoker, BMI 40.0-44.9, adult, Vitamin D deficiency, Rash (782.1), Ear pressure, bilateral, Itch of skin [facility] Office Visit On: 06-Nov-2017 8:14 Encounter Reason: Follow up for chronic medical issues - The patient feels well with minor complaints, has good energy level and is sleeping well. Patient has been compliant with instructions. Current medication use: no End: 06-Nov-2017 9:17 side effects and compliant with dosing regimen. Patient sleeps 7 hours per night. Nutrition: balanced diet and supplemental vitamins. The medical issues the patient is following up for include All ident ified problems below, blood sugar issues, high blood pressure and high cholesterol. weight :., [ADDITIONAL REASON] Follow up tests - Date: (10/31/17). Encounter Diagnosis: BMI 40.0-44.9, adult, Nonsmoker, Nutritional counseling, Vitamin D deficiency, Hypertension (401.9), Abnormal glucose tolerance test (Renamed from Abnormal glucose tolerance test (GTT)), Immunocompromised, acquired, Rheumatoid arthritis (714.0), Obstructive sleep apnea, adult, Asthma, Influenza vaccination declined (Renamed from Refused influenza vaccine), ETD (Eustachian tube dysfunction), bilateral [facility] Office Visit On: 09-Oct-2017 12:56 Encounter Reason: Vertigo - The onset of the vertigo has been sudden and has been occurring in a persistent pattern for weeks. The course has been constant. The vertigo is characterized as lightheadedness and spinning of End: 09-Oct-2017 13:20 the environment. The vertigo is precipitated by position change. The symptoms have been associated with loss of balance.Encounter Diagnosis: BMI 45.0-49.9, adult, Nonsmoker, Dizzy spells, BPV (benign positional vertigo), bilateral [facility] Office Visit On: 02-Oct-2017 15:36 Encounter Reason: Knee Pain - The injury involved the right knee. Onset was gradual month(s) ago.Encounter Diagnosis: BMI 45.0-49.9, adult, Nonsmoker, Right knee pain, unspecified chronicity End: 02-Oct-2017 17:28 [facility] Office Visit On: 25-Sep-2017 13:11 Encounter Reason: Ankle Pain - This condition occurred following a specific injury. The patient sustained an injury to the right ankle. This occurred 2 month(s) ago. Symptoms include ankle pain and swelling. Symptoms are located in the right ankle., End: 25-Sep-2017 14:33 [ADDITIONAL REASON] Knee Pain - The injury involved the right knee. Onset was gradual month(s) ago. Encounter Diagnosis: BMI 40.0-44.9, adult, Nonsmoker, Foot pain, right, Right knee pain, unspecified chronicity [facility] Office Visit On: 03-Jul-2017 8:11 Encounter Reason: Follow up for chronic medical issues - The patient feels well with minor complaints (ankles - seeing dr valenzuela), has good energy level and is sleeping well. Patient has been compliant with instructions. C End: 03-Jul-2017 9:03 urrent medication use: no side effects and compliant with dosing regimen. Patient sleeps 7 hours per night. Nutrition: balanced diet and supplemental vitamins. The medical issues the patient is followin g up for include All identified problems below, blood sugar issues, high blood pressure and high cholesterol. blood pressure range : and weight :.Encounter Diagnosis: Abnormal glucose tolerance test (Renamed from Abnormal glucose tolerance test (GTT)), BMI 40.0-44.9, adult, Nonsmoker, Vitamin D deficiency, GERD with apnea, Hypertension (401.9), Rheumatoid arthritis (714.0), Asthma, Other anxiety states, Inversion sprain of right ankle, initial encounter, Tendonitis, Achilles, right [facility] Lab Order On: 27-Jun-2017 12:01 Encounter Diagnosis: Abnormal glucose tolerance test (Renamed from Abnormal glucose tolerance test (GTT)) End: 27-Jun-2017 12:12 [facility] Phone Encounter On: 23-Apr-2017 14:02 Encounter Diagnosis: Pain in foot End: 23-Apr-2017 14:09 [facility] Annotation/Addendum On: 25-Mar-2017 12:33 Encounter Diagnosis: Exposure to the flu End: 25-Mar-2017 12:35 [facility] Office Visit On: 27-Feb-2017 8:04 Encounter Reason: Follow up tests - Date: (November, December and January)., [ADDITIONAL REASON] Follow up for chronic medical issues - The patient feels well with minor complai End: 27-Feb-2017 16:32 nts, has good energy level and is sleeping well. Patient has been compliant with instructions. Current medication use: no side effects and compliant with dosing regimen. Patient sleeps 7 hours per night . Nutrition: balanced diet and supplemental vitamins. The medical issues the patient is following up for include All identified problems below, blood sugar issues, high blood pressure and high cholesterol. blood pressure range : and weight :. Encounter Diagnosis: Nonsmoker, Hypertension (401.9), BMI 40.0-44.9, adult, Abnormal glucose tolerance test (Renamed from Abnormal glucose tolerance test (GTT)), Obstructive sleep apnea, adult, Rheumatoid arthritis (714.0), Nutritional counseling, Vitamin D deficiency, Asthma, GERD with apnea [facility] Annotation/Addendum On: 21-Feb-2017 10:57 Encounter Diagnosis: Elevated hemoglobin A1c End: 21-Feb-2017 10:59 [facility] Office Visit On: 05-Dec-2016 8:53 Encounter Reason: Skin Lesions - No changes in management were made at the last visit. Symptoms include single skin lesion (rt lower leg).Encounter Diagnosis: BMI 40.0-44.9, adult, Nonsmoker, Skin lesion End: 05-Dec-2016 12:33 [facility] Office Visit On: 07-Nov-2016 14:22 Encounter Reason: Follow up tests - Date: (10/31/16 labs)., [ADDITIONAL REASON] Follow up for chronic medical issues - The patient feels well with minor complai End: 07-Nov-2016 15:06 nts, has good energy level and is sleeping well. Patient has been compliant with instructions. Current medication use: no side effects and compliant with dosing regimen. Patient sleeps 7 hours per night . Nutrition: balanced diet and supplemental vitamins. The medical issues the patient is following up for include All identified problems below, blood sugar issues, high blood pressure and high cholesterol. blood pressure range : and weight :. Encounter Diagnosis: Nonsmoker, BMI 40.0-44.9, adult, Abnormal glucose tolerance test (Renamed from Abnormal glucose tolerance test (GTT)), Vitamin D deficiency, Asthma, Hypertension (401.9), Other anxiety states, Nutritional counseling, Rheumatoid arthritis (714.0), GERD with apnea, Influenza vaccination declined (Renamed from Refused influenza vaccine) [facility] Office Visit On: 15-Oct-2016 15:32 Encounter Reason: Edema - No changes in management were made at the last visit. Symptoms include edema. The edema involves both lower extremities. Onset was gradual.Encounter Diagnosis: BMI 45.0-49.9, adult, Nonsmoker, Edema extremities, End: 15-Oct-2016 16:20 Obstructive sleep apnea, adult, VARICOSE VEINS- SUPPORT HOSE, Nutritional counseling [facility] Office Visit On: 06-Aug-2016 15:54 Encounter Reason: Follow up tests - Date: (08/01/16 labs)., [ADDITIONAL REASON] Follow up for chronic medical issues - The patient feels well with minor complai End: 06-Aug-2016 17:04 nts, has good energy level and is sleeping poorly. Patient has been compliant with instructions. Current medication use: no side effects and compliant with dosing regimen. Patient sleeps 7 hours per nig ht. Nutrition: balanced diet and supplemental vitamins. The medical issues the patient is following up for include All identified problems below, blood sugar issues, high blood pressure and high cholesterol. Encounter Diagnosis: Nonsmoker, BMI 45.0-49.9, adult, Abnormal glucose tolerance test (Renamed from Abnormal glucose tolerance test (GTT)), Obstructive sleep apnea, adult, Vitamin D deficiency, Hypertension (401.9), Asthma [facility] Phone Encounter On: 30-Jul-2016 17:45 Encounter Diagnosis: Abnormal glucose tolerance test (Renamed from Abnormal glucose tolerance test (GTT)) End: 30-Jul-2016 17:56 [facility] Annotation/Addendum On: 21-May-2016 12:39 Encounter Diagnosis: Allergy End: 21-May-2016 12:41 [facility] Office Visit On: 16-May-2016 14:29 Encounter Reason: Itching - The last clinic visit was 1 month(s) ago. Management changes made at the last visit include adding prednisone. Symptoms include skin erythema. Symptom locations include the face, the neck, the End: 16-May-2016 15:01 abdomen and the forearms. The symptoms occur constantly. The patient describes this as worsening. Symptoms are exacerbated by direct contact (heat). Associated symptoms include heat intolerance. Previous presentation included skin erythema., [ADDITIONAL REASON] Rash - Note for Rash: bilateral arms redness and facial redness itchy rash , [ADDITIONAL REASON] Red Eye - Symptoms include eye redness, eye discharge and eye dryness. Encounter Diagnosis: BMI 45.0-49.9, adult, Nonsmoker, Itch of skin, Red eye, Abnormal glucose tolerance test (Renamed from Abnormal glucose tolerance test (GTT)) [facility] Office Visit On: 20-Apr-2016 13:35 Encounter Reason: RashEncounter Diagnosis: Nonsmoker, BMI 45.0-49.9, adult, Itch of skin, Allergic reaction to drug, initial encounter End: 23-Apr-2016 9:39 [facility] Office Visit On: 02-Apr-2016 15:25 Encounter Reason: Follow up for chronic medical issues - The patient feels well with minor complaints, has good energy level and is sleeping well. Patient has been compliant with instructions. Current medication use: no End: 6-Feb-2017 16:38 side effects and compliant with dosing regimen. Patient sleeps 7 hours per night. Nutrition: balanced diet and no supplemental vitamins & iron. The medical issues the patient is following up for inc florentino All identified problems below, blood sugar issues, high blood pressure and high cholesterol.Encounter Diagnosis: BMI 40.0-44.9, adult, Nonsmoker, Rheumatoid arthritis (714.0), Abnormal glucose tolerance test (Renamed from Abnormal glucose tolerance test (GTT)), Carotid stenosis, Hypertension (401.9), Vitamin D deficiency, GERD with apnea, Asthma, Obstructive sleep apnea, adult [facility] Office Visit On: 28-Mar-2016 8:44 Encounter Reason: Follow up tests - Date: (03/22/16).Encounter Diagnosis: BMI 40.0- 44.9, adult, Nonsmoker, Acute epigastric pain, Cervical radiculopathy, acute, Muscle spasm of back End: 28-Mar-2016 11:32 [facility] Phone Encounter On: 12-Mar-2016 11:10 Encounter Diagnosis: Abnormal glucose tolerance test (Renamed from Abnormal glucose tolerance test (GTT)) End: 12-Mar-2016 11:11 [facility] Office Visit On: 23-Nov-2015 8:53 Encounter Reason: Follow up for chronic medical issues - The patient does not feel well, has decreased energy level and is sleeping poorly. Patient has been compliant with instructions. Current medication use: no side ef End: 23-Nov-2015 9:37 fects and compliant with dosing regimen. Patient sleeps 6 hours per night. Nutrition: balanced diet and no supplemental vitamins & iron. The medical issues the patient is following up for include Bryan betancourt identified problems below, blood sugar issues, high blood pressure and high cholesterol. blood pressure range : and weight :., [ADDITIONAL REASON] Follow up tests - Date: (11/05/15). Encounter Diagnosis: Abnormal glucose tolerance test (Renamed from Abnormal glucose tolerance test (GTT)), Vitamin D deficiency, Hypertension (401.9), Carotid stenosis, Immunocompromised, acquired, Rheumatoid arthritis (714.0), BMI 50.0-59.9, adult, Nonsmoker [facility] Office Visit On: 19-Sep-2015 16:52 Encounter Diagnosis: Hypertension (401.9), Vitamin D deficiency, Abnormal glucose tolerance test (Renamed from Abnormal glucose tolerance test (GTT)), Neck pain (723.1) End: 19-Sep-2015 16:59 [facility] Office Visit On: 14-Sep-2015 13:07 Encounter Reason: Follow up tests - Date: (08/20/15 labs).Encounter Diagnosis: Abnormal glucose tolerance test (Renamed from Abnormal glucose tolerance test (GTT)), Vitamin D deficiency, Hypertension (401.9), Actinic keratosis (702.0) End: 14-Sep-2015 13:44 [facility] Office Visit On: 17-Aug-2015 9:07 Encounter Reason: Follow up tests - Date: (07/11/15 labs)., [ADDITIONAL REASON] Follow up for chronic medical issues - The patient feels well with minor complai End: 17-Aug-2015 14:35 nts, has good energy level and is sleeping well. Patient has been compliant with instructions. Current medication use: experiencing side effects and compliant with dosing regimen. Patient sleeps 7 hours per night. Nutrition: balanced diet and no supplemental vitamins & iron. The medical issues the patient is following up for include All identified problems below, high blood pressure and other. blood pressure range : and weight :. Encounter Diagnosis: Hypertension (401.9), Asthma, Obstructive sleep apnea, adult, Carotid stenosis, Rheumatoid arthritis (714.0), Immunocompromised, acquired, Medication side effects present, initial encounter, Dizzy spells, GERD with apnea, Epilepsy, unspecified, not intractable, without status epilepticus, Low back pain potentially associated with radiculopathy, Allergic rhinitis, Vitamin D deficiency, Screening for prostate cancer, Encounter for screening for malignant neoplasm of colon (Renamed from Special screening for malignant neoplasms, colon), Neck pain (723.1), Other anxiety states, Plantar wart, left foot, Hyperglycemia [facility] Office Visit On: 23-Mar-2015 9:52 Encounter Reason: Itching - Symptoms include pruritus, while symptoms do not include rash, dry skin or skin pain. Symptom locations include symmetrical body locations. Onset was gradual 3 month(s) ago. The symptoms occur End: 24-Mar-2015 23:01 constantly. The patient describes this as worsening. Associated symptoms do not include sweating, fever, chills, nausea or vomiting. Note for Itching: Pt feels hot but his skin is actually cold and j ust itches all over. Eye dr added Neomyc-polym eye ointment for exzema in his eyes.- saw Sanuurha and did bunch labs for itching- and no find anything and put him on singulair- has had allergy testing- also tried off few meds for couple weeks to see if makes a difference- tried off cymbalta - went off niacin and itchign went away- and then came back in the fall- Encounter Diagnosis: Itching, Chronic pain of left ankle, Knee pain, left (719.46) [facility] Office Visit On: 07-Feb-2015 16:19 Encounter Reason: Follow up tests - Diagnostic tests include other (labwork). Date: (01/22)., [ADDITIONAL REASON] Follow up for chronic medical issues - The patient does not feel well (having al End: 07-Feb-2015 20:20 lergic reaction to something? having blotchiness, redness...it comes and goes and has been going on for the last 2 wks. Maybe stress related? All over body. No changes recently.Still having constant batsheva n in the neck.Would like to go over blood work), has decreased energy level and is sleeping poorly (has sleeping study on saturday). Patient has been compliant with instructions. Current medication use : no side effects and compliant with dosing regimen. Patient sleeps 8 (interuppted sleep) hours per night. Nutrition: balanced diet and no supplemental vitamins & iron. The medical issues the patien t is following up for include All identified problems below, asthma, depression (anxiety) and high blood pressure. Note for Follow up for chronic medical issues: when stopped multivitamin he stopped r josette flush itch now has again- - he did start lyrica - Perez gave him this when shots from [facility] didnt help neck- he gave him lyrica and didnt help so stopped this rash before lyrica- he wants to consider accupuncture Encounter Diagnosis: Carotid stenosis, Hypertension, Neck pain (723.1), Paresthesia and pain of both upper extremities, Abnormal urine, Swelling of Limb (Renamed from Limb swelling), Asthma [facility] Office Visit On: 07-Jun-2014 16:28 Encounter Reason: Follow up for chronic medical issues - The patient feels well with minor complaints (stopped the avapro and will explain why), has good energy level and is sleeping poorly. Patient has been compliant wi End: 08-Jun-2014 23:09 th instructions. Current medication use: no side effects and compliant with dosing regimen. Patient sleeps 6 hours per night. Nutrition: balanced diet and no supplemental vitamins & iron. The medica l issues the patient is following up for include All identified problems below, asthma, depression (anxiety) and high blood pressure. Note for Follow up for chronic medical issues: No routine labs don e for todays visit.- his weight down 30 pounds ??and trying and doing well- trying to stayon the bandwagon- he has ridden some bike not like he was before so will work on that exercise part - stopped th e avapro- as his bp dropped with weight loss- was getting lightheaded - weaned off- is seeing Basali- and had shots- low back better with weight loss shot- and still some neck issues getting more injectionsEncounter Diagnosis: Hypertension (401.0), Asthma (493.11), Wheezing (786.07), Cough (786.2), Obstructive sleep apnea (327.23), Degenerative Disc Disease - Cervical Spine (722.4), Degenerative Disc Disease - Lumbar (722.52), Rheumatoid arthritis (714.0), Anxiety state, unspecified (300.00), Carotid stenosis (433.10), SCREENING FOR CANCER OF THE PROSTATE (V76.44) [facility] Office Visit On: 22-Feb-2014 10:09 Encounter Reason: Cough - The onset of the cough has been sudden. The cough is characterized as productive of mucoid sputum. The amount of sputum produced is scanty. The cough occurs all the time. The symptoms are aggra End: 22-Feb-2014 18:33 vated by supine posture. The symptoms have been associated with hoarseness and wheezing. the color of the sputum is yellowish.Encounter Diagnosis: Cough (786.2), Wheezing (786.07) [facility] Office Visit On: 18-Jan-2014 16:41 Encounter Reason: Follow up for chronic medical issues - The patient feels well with minor complaints, has decreased energy level and is sleeping poorly. Patient has been compliant with instructions. Current medication u End: 18-Jan-2014 22:54 se: no side effects and compliant with dosing regimen. Patient sleeps 6 hours per night. Nutrition: balanced diet and no supplemental vitamins & iron. The medical issues the patient is following up for include All identified problems below, asthma, depression (anxiety) and high blood pressure. Note for Follow up for chronic medical issues: he hasnt seen Caryn or Jacques- due to schedule gbut wi ll no uti sx - bpis good- no gerd- we talked about gabapentin or neurontin he will consider - he will try to see kristali, [ADDITIONAL REASON] Follow up tests - Date: (01/09/14 labs). Encounter Diagnosis: Allergic Rhinitis(477.9), Radiculopathy of leg (724.4), Hypertension (401.0), Rheumatoid arthritis (714.0), Urine, Abnormal (791.9), Shoulder Pain (Renamed from Pain in shoulder) [facility] Office Visit On: 19-Oct-2013 15:34 Encounter Reason: Eye Discharge - Symptoms include eye irritation and lid crusting, while symptoms do not include eye itching. The patient describes the eye discharge as white. Symptoms are located in the left eye. Onset End: 19-Oct-2013 15:50 was sudden day(s) ago. There is no known event that preceded symptom onset. The symptoms occur constantly. The patient describes this as moderate in severity and worsening. Associated symptoms include lacrimation.Encounter Diagnosis: ACUTE CONJUNCTIVITIS (372.01) [facility] Office Visit On: 21-Sep-2013 16:16 Encounter Reason: Follow up for chronic medical issues - The patient feels well with minor complaints (lower back issues worsening and KAYLEE an issue- uses his cpap but still wakes up tired), has good energy level and is s End: 23-Sep-2013 22:09 leeping poorly (dreams alot, KAYLEE, uses cpap). Patient has been compliant with instructions. Current medication use: no side effects and compliant with dosing regimen. Patient sleeps 8 hours per night. N utrition: balanced diet, supplemental vitamins and low salt diet. The medical issues the patient is following up for include All identified problems below, asthma, high blood pressure and other (anemia, epilepsy, allergies, ddd, kaylee, anxiety). Note for Follow up for chronic medical issues: he still having signfiicant sx - he sits and pain down right leg and numb- better with standing doesnt go away emg ok- and surgeon says back looks good- so no surgery- but still having sx- - he having significnat sx neck arms shoudler - he is off pred and just started taking etodolac so see how helps, [ADDITIONAL REASON] Follow up tests - Diagnostic tests include NCS/EMG. Date: (08/2013). Encounter Diagnosis: LOW BACK PAIN WITH RADICULOPATHY (724.4), Degenerative Disc Disease - Cervical Spine (722.4), Hypertension (401.9), Obstructive sleep apnea (327.23), SCREENING FOR CANCER OF THE PROSTATE (V76.44) [facility] Visit On: 24-Jun-2013 9:38 Encounter Reason: Follow-Up Post surgeon - Pt seen Dr. Schaffer for lower back and neck issues. Wasnt pleased with what he said, not a candidate for surgery. Back issue continue.- he is losing weight becuase the doctor End: 24-Jun-2013 13:24 told him that was only thing to do except pain management- said he should go back to [facility]-- he said leg worse than the neck Encounter Diagnosis: LOW BACK PAIN WITH RADICULOPATHY (724.4), Degenerative Disc Disease - Cervical Spine (722.4) [facility] Visit On: 18-May-2013 15:52 Encounter Reason: Follow up tests - Diagnostic tests include MRI (cervical and lumbar). Date: (05/15/13). Current symptoms include other (neck and shoulder continue to hurt). Note for Discuss procedure results: flushing End: 18-May-2013 22:54 much better off niacin- and willing to see neurosurgeon for back Encounter Diagnosis: Degenerative Disc Disease - Cervical Spine (722.4), Degenerative Disc Disease - Lumbar (722.52), LOW BACK PAIN WITH RADICULOPATHY (724.4), SYMPTOMS INVOLVING SKIN AND OTHER INTEGUMENTARY TISSUE, FLUSHING (782.62) [facility] Visit On: 24-Apr-2013 13:32 Encounter Reason: Skin Problems - The skin problems have been occurring in an intermittent pattern for 5 years. The course has been increasing. The problem is characterized as other (flushing). Lesions are described as r End: 24-Apr-2013 16:45 ed. The spots were first seen on the face and the neck. Note for Skin problems: we looked at this in past - not taking niacin that he knows of but will check- not sure what nelida worse- heat does he th inks not sure- an dno ches tpain--had workup 2008 24 hour urine and look for carcinoid, [ADDITIONAL REASON] Back Pain Lumbar, Chronic - Note for Chronic lumbar back pain: chronic this an dneck and shouldcer had pt little help not gone still pain and radicular sx numb left arm cant sleep- tried therapy and nsaids -still radicular arm sx and buttocks pain with sitting in car and laying d own - no weak but numb and no loss bowel or bladder - hx of disc disease in past Encounter Diagnosis: Cervical radiculopathy (723.4), Radiculopathy of leg (724.4), SYMPTOMS INVOLVING SKIN AND OTHER INTEGUMENTARY TISSUE, FLUSHING (782.62), Rosacea (Renamed from Acne erythematosa) [facility] Visit On: 07-Jan-2013 11:08 Encounter Reason: Follow up for chronic medical issues - The patient feels well with minor complaints (wants to talk about his neck issues again and right hip pain that radiates down his leg- hx if RA, joint pain, radicu End: 08-Jan-2013 21:56 lopathy of leg and paresthesia's), has good energy level and is sleeping poorly (dreams alot, KAYLEE, uses cpap). Patient has been compliant with instructions. Current medication use: no side effects and c ompliant with dosing regimen. Patient sleeps 6 hours per night. Nutrition: balanced diet, supplemental vitamins and low salt diet. The medical issues the patient is following up for include All identifi ed problems below, asthma, high blood pressure and other (anemia, epilepsy, allergies, ddd, kaylee, anxiety). Note for Follow up for chronic medical issues: he is taking avapro he thinks bp up becuase he is in pain he will check them at home- - he isnt biking like he was saw dorothyke about his hip she did xray- - now left shoulder hurtingand getting readiating pain down arm feels burning and arm feels n umb- today no neck pain but usually does arm feels weaker - also low back radiatying down right leg- sittingmakes worse- no weak or numb in leg- trying nsaids dailyno help, [ADDITIONAL REASON] Follow up, Laboratory Test Results - Date: (12/10/12). Encounter Diagnosis: Hypertension (401.0), Cervical radiculopathy (723.4), Radiculopathy of leg (724.4), Urine, Abnormal (791.9), Daytime somnolence (Renamed from Daytime hypersomnolence), Carotid stenosis (433.10) [facility] Visit On: 17-Dec-2012 15:18 Encounter Reason: Follow up tests - Diagnostic tests include other (labs). Date: (12/10/12)., [ADDITIONAL REASON] Follow up Hypertension - blood pressure range : (11/80, 126/74, 119/79, 109/75). Encounter Diagnosis: Hypertension (401.9) End: 17-Dec-2012 15:57 [facility] Phone Encounter On: 03-Dec-2012 16:51 Encounter Diagnosis: Hypertension (401.9), SCREENING FOR HYPERLIPIDEMIA (V77.91), SCREENING FOR CANCER OF THE PROSTATE (V76.44) End: 03-Dec-2012 16:57 [facility] Visit On: 02-Dec-2012 13:28 Encounter Reason: high blood pressure - The symptoms have been associated with obesity, sleep apnea symptoms (uses C Pap) and use of steroids ( in the past mo maybe 4 pills ), while the symptoms have not been associat End: 02-Dec-2012 13:56 ed with excessive caffeine intake.Encounter Diagnosis: Hypertension (401.9), Rheumatoid arthritis (714.0) [facility] Visit On: 23-Sep-2012 13:32 Encounter Reason: Knee Pain - Symptoms include knee pain, swelling and difficulty bearing weight, while symptoms do not include decreased range of motion, locking, difficulty ambulating or audible pop at the time of inju End: 23-Sep-2012 14:03 ry. Symptoms are located in the left anterior knee. There is no radiation. The patient describes the pain as dull (pins/needles). Onset was sudden. The patient describes symptoms as moderate in severity and worsening.Encounter Diagnosis: Knee pain, left (719.46) [facility] Visit On: 14-Jul-2012 15:10 Encounter Reason: Sore Throat - Symptoms include sore throat, dysphagia, postnasal drainage, swollen glands and chills. The symptoms are symmetrical. There is no radiation. Onset was sudden. The symptoms occur constantly End: 14-Jul-2012 15:51 . The patient describes this as moderate in severity and improving.Encounter Diagnosis: ACUTE PHARYNGITIS (462.), Cough (786.2), Wheezing (786.07) [facility] Visit On: 02-Apr-2012 12:11 Encounter Reason: Rash - Symptoms include skin bumps and skin redness. The skin rash is located on the left arm. Onset was 1 week(s) ago. Note for Rash: itchy both arms, End: 03-Apr-2012 16:20 [ADDITIONAL REASON] Leg Pain - Note for Leg pain: right buttock leg pain no weak occ numb in thigh - no loss of bowel or bladder control- worse with sit no trauma Encounter Diagnosis: Eczema (692.9), Radiculopathy of leg (724.4) [facility] Visit On: 03-Mar-2012 15:54 Encounter Reason: Follow up for chronic medical issues - The patient feels well with minor complaints (ringing in left ear past couple days- hx of chronic allergies), has good energy level and is sleeping poorly (dreams End: 03-Mar-2012 16:27 alot, KAYLEE, uses cpap). Patient has been compliant with instructions. Current medication use: no side effects and compliant with dosing regimen. Patient sleeps 6 hours per night. Nutrition: balanced diet , supplemental vitamins and low salt diet. The medical issues the patient is following up for include All identified problems below, asthma, high blood pressure and other (anemia, epilepsy, allergies, d dd, kaylee, anxiety). Note for Follow up for chronic medical issues: he quit biking gained 16 pounds over last 3 months but getting back on track- - life very busy but mood ok- saw Dr allen in dec and hi s asthma been good so not needing inhlaer- no gerd - taking xyzal and helps- he recentlyincreased lodine to 500 for his joints with valenke , [ADDITIONAL REASON] Follow up, Laboratory Test Results - Date: (02/29/12). Encounter Diagnosis: Allergic Rhinitis(477.9), Carotid stenosis (433.10), Asthma (493.11), Hypertension (401.0), Anxiety state, unspecified (300.00), Eustachian Tube Dysfunction (381.81) [facility] Visit On: 20-Feb-2012 9:33 Encounter Diagnosis: Unspecified Diagnosis End: 20-Feb-2012 9:35 [facility] Visit On: 13-Feb-2012 15:29 Encounter Reason: Sore Throat - Symptoms include sore throat and swollen glands, while symptoms do not include fever or chills. The symptoms are symmetrical. There is no radiation. The patient describes the pain as burni End: 13-Feb-2012 15:50 ng. Onset was sudden day(s) ago. The symptoms occur constantly. The patient describes this as moderate in severity and unchanged. Associated symptoms include hoarseness, while associated symptoms do not include ear pain, nausea or fatigue. Encounter Diagnosis: ACUTE PHARYNGITIS (462.) [facility] Visit On: 31-Oct-2011 15:59 Encounter Reason: Follow up for chronic medical issues - The patient feels well with no complaints, has good energy level and is sleeping poorly (dreams alot, KAYLEE, uses cpap). Patient has been compliant with instructions End: 01-Nov-2011 21:04 . Current medication use: no side effects and compliant with dosing regimen. Patient sleeps 6 hours per night. Nutrition: balanced diet, supplemental vitamins and low salt diet. The medical issues the p atient is following up for include All identified problems below, asthma, high blood pressure and other (anemia, epilepsy, allergies, ddd, kaylee, anxiety). Note for Follow up for chronic medical issues: No routine labs were done for today. riding a lot of miles on his bike over 1000 miles since june- he feels well he does it- he is down few more pounds and feels like gaining more muscle-no porblems wit h asthma while riding and no anxiety issues- he is feeling really good- he occ has some neck issues but not with bikeEncounter Diagnosis: Hypertension (401.0), Anxiety state, unspecified (300.00), Carotid stenosis (433.10), Asthma (493.11), Degenerative Disc Disease - Cervical Spine (722.4), Urine, Abnormal (791.9) [facility] Visit On: 04-Jun-2011 16:54 Encounter Reason: Follow up for chronic medical issues - The patient feels well with minor complaints (wants to talk about increasing the cymbalta- pain reasons), has good energy level and is sleeping poorly (dreams alot End: 04-Jun-2011 21:24 , KAYLEE, uses cpap). Patient has been compliant with instructions. Current medication use: no side effects and compliant with dosing regimen. Patient sleeps 6 hours per night. Nutrition: balanced diet, alejandre pplemental vitamins and low salt diet. The medical issues the patient is following up for include All identified problems below, asthma, high blood pressure and other (anemia, epilepsy, allergies, ddd, kaylee, anxiety). Note for Follow up for chronic medical issues: feeling better weight down 20 pounds with diet and exercise and herballife- riding bike 150 miles a week- bp is nice- he would like t tryi [facility] in [facility]- no gerd- and breathing has been good, [ADDITIONAL REASON] Follow up, Laboratory Test Results - Date: (05/20/11). Encounter Diagnosis: Asthma (493.11), Anxiety state, unspecified (300.00), Diaphragmatic hernia without mention of obstruction or gangrene (553.3), Hypertension (401.0), Iron Deficiency Anemia,Unspecified (280.9), Carotid stenosis (433.10), Obstructive sleep apnea (327.23) [facility] Visit On: 04-May-2011 7:34 Encounter Reason: Sore Throat - Symptoms include sore throat, dysphagia and swollen glands. The symptoms are symmetrical. The patient describes the pain as burning. Onset was sudden 3 day(s) ago. Associated symptoms include hoarseness and cough. End: 04-May-2011 8:22 Encounter Diagnosis: ACUTE PHARYNGITIS (462.), Viral infection, unspecified (079.99), CANDIDIASIS, MOUTH (THRUSH) (112.0), Wheezing (786.07), Cough (786.2) [facility] Visit On: 29-Jan-2011 16:02 Encounter Reason: Follow up for chronic medical issues - The patient feels well with no complaints, has good energy level and is sleeping poorly (dreams alot, KAYLEE, uses cpap). Patient has been compliant with instructions End: 30-Jan-2011 8:52 . Current medication use: no side effects and compliant with dosing regimen. Patient sleeps 7 hours per night. Nutrition: balanced diet, supplemental vitamins and low salt diet. The medical issues the p atient is following up for include All identified problems below, asthma, high blood pressure and other (anemia, epilepsy, allergies, ddd, kaylee, anxiety). Note for Follow up for chronic medical issues: neck pain is gone- carotids reviewed- saw Dr Rolon last week- and did spirometry and was good- no shots for 4 years- bp not unreasonable- - the anxiety is better than last time- less stress- trying he rballife and going to start exercise again- had laser sx on left leg veins- getting better- saw derm- and doing topical treatments- for actinics- no iron deficicney, [ADDITIONAL REASON] Follow up tests - Diagnostic tests include other (labscarotid doppler- 01/29/11 in scanned documents). Date: (01/24/11). Encounter Diagnosis: Need for prophylactic vaccination and inoculation against influenza (V04.81), Carotid stenosis (433.10), Iron Deficiency Anemia,Unspecified (280.9), Anxiety state, unspecified (300.00), Pain in thoracic spine (724.1), SCREENING FOR CANCER OF THE PROSTATE (V76.44), Hypertension (401.0), Paresthesia (782.0) [facility] Visit On: 24-Oct-2010 15:32 Encounter Reason: Follow up for chronic medical issues - The patient feels well with minor complaints (relook at right leg where Cebal removed cyst and breast lump still there but he still drinks caffeine.), has good merry End: 24-Oct-2010 22:06 rgy level and is sleeping poorly (dreams alot, KAYLEE, uses cpap). Patient has been compliant with instructions. Current medication use: no side effects and compliant with dosing regimen. Patient sleeps 7 hours per night. Nutrition: balanced diet, supplemental vitamins and low salt diet. The medical issues the patient is following up for include All identified problems below, asthma, high blood pressure and other (anemia, epilepsy, allergies, ddd, kaylee, anxiety). Note for Follow up for chronic medical issues: today bp up not checking routinely- takes tylenol pm but not sleeping well- uses cpap nightly - still not getting good night sleep- doesnt feel wants to go up on celexa- he hasnt been exercising so thinks if he can get backinto that it willhelp- getting lesion taken off with robb in fall-- still breast lump= he saw jaclyn for felt benign- hasnt gotten bigger actually got smaller when he lost weight-- hasnt tried to get rid of caffeine, [ADDITIONAL REASON] Follow up, Laboratory Test Results - Date: (10/18/10). Encounter Diagnosis: Hypertension (401.0), Asthma (493.11), Anxiety state, unspecified (300.00), Iron Deficiency Anemia,Unspecified (280.9), Obstructive sleep apnea (327.23), carotodynia [facility] Visit On: 19-Jun-2010 16:08 Encounter Reason: Follow up for chronic medical issues - The patient feels well with minor complaints, has good energy level and is sleeping well. Patient has been compliant with instructions. Current medication use: no End: 19-Jun-2010 17:20 side effects and compliant with dosing regimen. Patient sleeps 6 hours per night. Nutrition: balanced diet, supplemental vitamins and low salt diet. The medical issues the patient is following up for in clude All identified problems below, asthma, high blood pressure and other (anemia, epilepsy, allergies, ddd, kaylee, anxiety). weight :. Note for Follow up for chronic medical issues: he is doing ok- bp is good and wants to see rubio again for legs- his epigastric pain is gone- he has colonsoocpy schefuled- has appt with robb last month and has appt with cebul- his asthma is good- his rheumatoid he thinks meds are helping, [ADDITIONAL REASON] Follow up, Laboratory Test Results - Date: (06/07/10). Encounter Diagnosis: Hypertension (401.0), Iron Deficiency Anemia,Unspecified (280.9), Asthma (493.11), Anxiety state, unspecified (300.00), Epigastric pain (789.06), Anemia NEC (285.8), varicose veins, Actinic keratosis (702.0), Breast Lump(611.72) [facility] Office Visit On: 06-Mar-2010 15:58 Encounter Reason: Follow up for chronic medical issues - The patient feels well with minor complaints (Possible problems with hiatial hernia/stomach), has good energy level and is sleeping well. Patient has been complian End: 06-Mar-2010 16:59 t with instructions. Current medication use: no side effects and compliant with dosing regimen. Patient sleeps 7 hours per night. Nutrition: balanced diet, supplemental vitamins and low salt diet. The m edical issues the patient is following up for include All identified problems below, asthma, high blood pressure and other (anemia, epilepsy, allergies, ddd, kaylee, anxiety). weight : (238.1). Note for Ann keane up for chronic medical issues: he is having epigastric pain right soon after eats- taking protonix- he thinks caffeine and chocolate-he otherwise feels well and neck and arm doign well- he is olivia n another 13 pounds and trying- he is riding bike 10-15 miles a day - his bp is good-- anxietyis good- no issues with asthma- he is off allergy shots-- he is seeing valneke this month and joints doing goodEncounter Diagnosis: Epigastric pain (789.06) , Anxiety state, unspecified (300.00), Rheumatoid arthritis (714.0), Cervical radiculopathy (723.4), Hypertension (401.0), Obstructive sleep apnea (327.23), Asthma (493.11), SCREENING FOR CANCER OF THE PROSTATE (V76.44), Iron Deficiency Anemia,Unspecified (280.9), Actinic keratosis (702.0) [facility] Office Visit On: 09-Nov-2009 8:16 Encounter Reason: Follow up for chronic medical issues - The patient feels well with minor complaints (Seen Efren for rib fracture on right side- still sore, otherwise no new complaints) ,has good energy level and is slee End: 09-Nov-2009 9:07 ping well (has vivid dreams). Patient has been compliant with instructions. Current medication use: no side effects and compliant with dosing regimen. Patient sleeps 7 hours per night. Nutrition: balanc ed diet ,supplemental vitamins and low salt diet. The medical issues the patient is following up for include All identified problems below ,asthma ,high blood pressure and other (anemia, epilepsy, aller gies, ddd, kaylee, anxiety). weight : (245). Note for Follow up for chronic medical issues: he is taking one avapro a day and still getting lightheaded- still little anemic- rib getting better - little f lare of rheumatoid right now- - no blood in stool- seeing reema today and his ashthma has been well controlled not needing advair- anxiety is good and no gerdEncounter Diagnosis: Hypertension (401.0), Anemia NEC (285.8), Rheumatoid arthritis (714.0), Asthma (493.11), Abdominal Pain,RUQ(789.01), Anxiety state, unspecified (300.00), Actinic keratosis (702.0) [facility] Visit On: 06-Oct-2009 15:33 Encounter Reason: Follow up tests - Diagnostic tests include other (labs) ,ultrasound and X-Ray. Date: (Sep 29). Current symptoms include injury (rib pain). Encounter Diagnosis: ACCIDENTAL FALL, SAME LEVEL, IN SPORTS (E886.0), Anemia NEC (285.8) End: 06-Oct-2009 15:53 [facility] Office Visit On: 29-Sep-2009 8:05 Encounter Reason: Trauma - The onset of the trauma has been sudden and has been occurring in a persistent pattern for 1 weeks. The course has been increasing. The trauma is described as severe (when sneezing, coughing and deep breathing). End: 29-Sep-2009 8:50 Encounter Diagnosis: Abdominal Pain,RUQ(789.01), Pain in Joint, Other Spec Site (719.48), ACCIDENTAL FALL, SAME LEVEL, IN SPORTS (E886.0) [facility] Office Visit On: 09-Sep-2009 8:06 Encounter Diagnosis: Lumbago (724.2) End: 09-Sep-2009 8:25 [facility] Office Visit On: 19-Jul-2009 10:23 Encounter Reason: Follow up for chronic medical issues - The patient feels well with no complaints ,has good energy level and is sleeping well (has vivid dreams). Patient has been compliant with instructions. Current med End: 19-Jul-2009 10:54 ication use: no side effects and compliant with dosing regimen. Patient sleeps 7 hours per night. Nutrition: balanced diet ,supplemental vitamins and low salt diet. The medical issues the patient is fol lowing up for include All identified problems below ,asthma ,high blood pressure and other (anemia, epilepsy, allergies, ddd, kaylee, anxiety). weight : ([id number]). Note for Follow up for chronic medica l issues: he is feeling well - he is watching diet and losing weight - his neck is better with lyrica and etodolac from [facility]-saw Reema and thought he had rheumatoid- - he is on plaquenil 200 mg bid - told he needs a yearly eye exam- - no issues with stomach routinely- mood pretty good with celexa, [ADDITIONAL REASON] Follow up, Laboratory Test Results - Date: (07/08/09). Note for Follow up, Labor atory Test Results: he is no longer itching off the water pill and retried again and it happened again- so is off now- no more rayauds sx Encounter Diagnosis: Rheumatoid arthritis (714.0), Diaphragmatic hernia without mention of obstruction or gangrene (553.3), Allergic Rhinitis(477.9), Hypertension (401.0), Anxiety state, unspecified (300.00) [facility] Historical Summary On: 14-Apr-2009 8:50 [facility] End: 14-Apr-2009 8:51 Office Visit On: 22-Mar-2009 14:33 Encounter Reason: Follow up, Laboratory Test Results - Date: (02/08/09 and 02/14/09). Note for Follow up, Laboratory Test Results: he is no longer itching off the water pill and retried again and it happened again- so is off now- no more rayauds sx End: 22-Mar-2009 15:10 Encounter Diagnosis: Hypertension (401.0), Anxiety state, unspecified (300.00), Neck pain (723.1) [facility] Office Visit On: 08-Feb-2009 15:47 Encounter Reason: Follow up, Laboratory Test Results - Date: (01/11/09). , [ADDITIONAL REASON] Follow up for chronic medical issues - The patient feels well with minor complai End: 08-Feb-2009 22:45 nts (continued problems with facial flushing- Pt has seen Dr. Allen. new complaint of coldness in fingers and toes- turn blue sometimes) ,has good energy level and is sleeping well (has vivid dreams). P atient has been compliant with instructions. Current medication use: no side effects and compliant with dosing regimen. Patient sleeps 7 hours per night. Nutrition: balanced diet ,supplemental vitamins and low salt diet. The medical issues the patient is following up for include All identified problems below ,asthma ,high blood pressure and other (anemia, epilepsy, allergies, ddd, kaylee, anxiety). weigh t :. 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 The course has been recurrent. The rash is characterized as red (blotchy) ,raised above the skin End: 23-Jan-2009 21:31 and flat. The rash was first seen on the upper extremity (forearms). It spread to the trunk (abd) and the lower extremity (right thigh). There has been associated itching and pain (prickly, burning), wh ile there has been no chills ,fever or loss of sensation. Note for Rash: face feels like it is on fire- no fever or joint pain- thinks maybe the mobic he is taking - he took 1 script of mobic- and did fine but new script different maker and different color- took benadryl little helpEncounter Diagnosis: Rash (782.1), Hypertension (401.0), SCREENING FOR CANCER OF THE PROSTATE (V76.44) [facility] Office Visit On: 29-Dec-2008 8:18 Encounter Reason: Sore throat - The onset of the sore throat has been sudden and has been occurring in a persistent pattern for 2 days. The course has been worsening. The symptoms have been associated with difficulty in End: 29-Dec-2008 8:42 swallowing, while the symptoms have not been associated with foreign body sensation in throat ,change in voice ,chills or cough. Encounter Diagnosis: Viral infection, unspecified (079.99), THROAT PAIN (784.1) [facility] Office Visit On: 14-Dec-2008 10:14 Encounter Reason: Follow up Hypertension - The patient has experienced follow up hypertension for months. The symptoms have been associated with obesity. Encounter Diagnosis: Hypertension (401.0) End: 14-Dec-2008 11:02 [facility] Office Visit On: 30-Nov-2008 10:17 Encounter Reason: Follow up Hypertension - The patient has experienced follow up hypertension for 1 days. The symptoms have been associated with family history of hypertension ,obesity and sleep apnea symptoms, while the End: 30-Nov-2008 12:13 symptoms have not been associated with anxiety ,excessive caffeine intake ,hypertension w/ prior ,kidney disease ,use of nasal decongestants ,use of oral contraceptives or use of steroids. bl ood pressure range : (134/94 this am147/98 last evening). Encounter Diagnosis: Hypertension (401.0) [facility] Office Visit On: 20-Apr-2008 9:12 Encounter Reason: Follow up, Diagnostic Procedure Results - Diagnostic tests include mammography (04/12/08) ,MRI (spine/neck) and NCS/EMG (on paper). Date: (04/08/08). Note for Follow up, Diagnostic Procedure Results: em End: 20-Apr-2008 22:14 gncs neg- thinks with cutting back caffeine the area on breast not as pronouncedEncounter Diagnosis: Degenerative Disc Disease - Cervical Spine (722.4), Pain in thoracic spine (724.1), Breast Lump(611.72) [facility] Office Visit On: 23-Mar-2008 9:56 Encounter Reason: Back pain - The onset of the pain has been gradual and has been occurring in a persistent pattern for years. The course has been increasing. The pain is characterized as stabbing and burning. The pain i End: 23-Mar-2008 22:51 s described as being located in the upper back (from neck to middle of back). The pain does not radiate. There are no precipitating factors. The symptoms are aggravated by weight lifting ,prolonged sitt ing and lying down. The symptoms have no relieving factors. There has been no associated abdominal pain ,arthritis of peripheral joints ,chills ,back stiffness ,bladder dysfunction ,dysmenorrhea ,dysuri a ,fever ,flank pain ,hip pain ,history of myelography ,history of back surgery ,history of disc prolapse ,history of malignancy ,incontinence of stool ,incontinence of urine ,leg weakness ,menorrhagia ,paresthesias in leg ,trauma ,urethral discharge ,use of anti-coagulants or use of corticosteroids. Note for Back pain: now pain in mid thoracic area for last 2-3 mos-- happens all day- worse with sit ting or laying flat on his back- doesnt feel internal - feels like superficial in muscles-- sometimes feels burning radiating from the spine out- with making certain turning movements with upper body he can bring on the pain- he hasnt seen [facility]-- he has tried muscle relaxers- Encounter Diagnosis: Neck pain (723.1), Degenerative Disc Disease - Cervical Spine (722.4), Pain in thoracic spine (724.1), Parasthesia (782.0), Breast Lump(611.72) [facility] Office Visit On: 20-Nov-2007 13:53 Encounter Reason: Follow up, Laboratory Test Results - Date: (10-30-07). Current symptoms/reason for visit include/s Follow up visit with no current symptoms. There is no family history of breast cancer ,cardiovascular dis End: 22-Nov-2007 0:11 ease ,cystic fibrosis ,Down's syndrome ,mental retardation or myocardial infarction before age 55. Past medical history includes anemia ,asthma ,emotional problems (anxiety ) ,hypertension and other (sl eep apnea ). Note for Follow up, Laboratory Test Results: his bps are good-- running all low 100s/60-70s- he has had no blood in stool and no abdominal pain or change in bowel habits-- he doesnt give blood- his count is trending down-- liver functions are nomrEncounter Diagnosis: Anemia(285.9), onychomycosis, Hypertension (401.0), Cervical radiculopathy (723.4) [facility] Office Visit On: 28-Oct-2007 15:49 Encounter Reason: Follow up Meds - The patient feels well with no complaints ,has good energy level and is sleeping well. Patient has been compliant with instructions. Current medication use: no side effects and complian End: 29-Oct-2007 23:53 t with dosing regimen. Patient sleeps 6 hours per night. Note for Follow up Meds: celexa and syeda- he is doing well on celexa without side effects and not fatigued like was on lexapro- his allergie s have been good with syeda- off the shots- stressful day- dropped a palate on his toe on the left today-- some days ears and cheeks get red- he doesnt feel bad just feels flushed- has taken bp one ti me during this and was fine-- he has been exercising more- he thinks has lost weight-- he is alittle anemic- no blood in stool-- neck and arm- never saw [facility]- needs to becuase still has issues- his breathing has been good with the advair, [ADDITIONAL REASON] Follow up, Laboratory Test Results - Date: (08/23/07). , [ADDITIONAL REASON] Skin problems - The onset of the skin problem has been gradual and has been occu rring in an intermittent pattern for 6 months. The course has been recurrent. The skin problem is described as moderate. Note for Skin problems: Notices when he touches plastic his skin will turn red and swell, like hives. No itching with it though. When get these welts it takes roughly 30 to 45 minutes to go away. Noticed for months now both great toes being brittle and white. believes he has toe f ungus. No known cause, no oozing, bruising or pain. Encounter Diagnosis: Anxiety state, unspecified (300.00), Hypertension (401.0), Allergic Rhinitis(477.9), Asthma (493.11), onychomycosis, Anemia(285.9) [facility] Office Visit On: 09-Jun-2007 16:44 Encounter Reason: Follow up for chronic medical issues - The patient feels well with minor complaints (continued neck pain) ,has good energy level and is sleeping well. Patient has been compliant with instructions. Curre End: 09-Jun-2007 21:36 nt medication use: no side effects and compliant with dosing regimen. Nutrition: inappropriate diet ,supplemental vitamins and low salt diet. The medical issues the patient is following up for include A ll identified problems below ,asthma ,high blood pressure ,high cholesterol and other (anxiety, allergic rhinitis, cervical radiculopathy). Note for Follow up for chronic medical issues: is tired all the time-- wonder if zyrtec or lexapro-- he wants to try syeda- his thinks lexapr is working but wonder if making him tired-- may want to try celexa- he is wearing cpap and getting 8 hours of sle ep- he hasnt been checking his bp- still having the neck issues- he hastn been to [facility] yet- but he will so he can something about this neck- Encounter Diagnosis: Hypertension (401.0), Anxiety state, unspecified (300.00), Cervical radiculopathy (723.4), Asthma (493.11), Obstructive sleep apnea (327.23), Allergic Rhinitis(477.9), SCREENING FOR CANCER OF THE PROSTATE (V76.44) [facility] Office Visit On: 03-Mar-2007 9:08 Encounter Reason: Follow up, Diagnostic Procedure Results - Diagnostic tests include treadmill exercise stress test (02/03/07) and ultrasound (gallbladder, 02/10/07). Note for Follow up, Diagnostic Procedure Results: w End: 03-Mar-2007 9:30 brie thinks the pill works for anxiety - he has had no more chest sx or paresthesias and thinks he is alot better-- little bit of sexual dysfunction-- cervical disc disease-- saw Gilberto for this and needs referral to go back to him for this-- varicose veins-- [facility] for thisEncounter Diagnosis: PARESTHESIA (782.0), Anxiety state, unspecified (300.00), Cervical radiculopathy (723.4), varicose veins [facility] Office Visit On: 27-Jan-2007 14:19 Encounter Reason: Follow up, Laboratory Test Results - Date: (01/13/07). 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 Encounter Diagnosis: Hypertension (401.0), Asthma (493.11), Allergic Rhinitis(477.9), Diaphragmatic hernia without mention of obstruction or gangrene (553.3), Chest pain (786.59), Anxiety state, unspecified (300.00) [facility] Office Visit On: 13-Jan-2007 14:36 Encounter Reason: Numbness and tingling - The onset of the numbness and tingling has been gradual and has been occurring in a persistent pattern for 1 weeks. The course has been constant. The numbness and tingling is tiesha End: 13-Jan-2007 22:11 cribed as mild. Note for Numbness and tingling: on left side of face, left arm and leg-- starts mid face and tingles to left ear-- then left leg and left abdomen does it-- had a couple years ago-- so went to neurologist -- he told him all in his head -- never had any testing done-- left mid arm gets achey down into forearm-- this comes and goes -- not necessarily with exertion-- uses activ on to the area and it made his arm break out in a rash -- lasts all day-- the longer he is up -- the worse-- no visual changes-- -- no weakness- he feels his chest sx are hiatal hernia-- he gets substernal pain -- dull-- aching comes and goes-- had heart cath years ago for left sided chest pain - went to er -- had cath 12-13 years ago and was normal-- when he weighs less his pain is less substernallly -- takes baby aspirin daily -- will occ get sharp pain in back of headEncounter Diagnosis: Headache (784.0), PARESTHESIA (782.0), Chest pain (786.59) [facility] Office Visit On: 21-Oct-2006 9:25 Encounter Reason: Follow up for chronic medical issues - The patient feels well with no complaints ,has good energy level and is sleeping poorly (stress). Patient has been compliant with instructions. Current medication End: 21-Oct-2006 10:05 use: no side effects and compliant with dosing regimen. Nutrition: balanced diet ,supplemental vitamins and low salt diet. The medical issues the patient is following up for include high blood pressure. blood pressure range : and weight :. Note for Follow up for chronic medical issues: asthma and allergies have been good and has been off allergies shots-- for 2 mos and doing ok- no more ear pain- ta karin the protonix -if eats wrong will get issues witherniah hiatal - he n avoid caffeineeeds t, [ADDITIONAL REASON] Follow up, Laboratory Test Results - Date: (10.11.06). Encounter Diagnosis: Hypertension (401.0), Asthma (493.11), Obstructive sleep apnea (327.23), Proteinuria (791.0) [facility] Office Visit On: 24-Jun-2006 9:07 Encounter Reason: Follow up, Laboratory Test Results - Date: (06/17/06- on face sheet). , [ADDITIONAL REASON] Earache - The onset of the pain has been gradual and has been occurring in an in End: 24-Jun-2006 9:44 termittent pattern for 2 days. The course has been recurrent. The pain is described as a moderate sharp pain. The pain is described as being located in the inner ear. The pain is felt in the left ear. T here has been no associated chills ,decreased hearing ,fever ,inability to 'pop' ear drum ,sinus problems or sore throat. , [ADDITIONAL REASON] Follow up for chronic medical issues - The patient feels well with minor complai nts (left earache) ,has decreased energy level and is sleeping well. Patient has been compliant with instructions. Current medication use: no side effects and compliant with dosing regimen. Nutrition: b alanced diet ,supplemental vitamins and low salt diet. The medical issues the patient is following up for include All identified problems below ,asthma ,high blood pressure and other (kaylee, anemia, ddd). blood pressure range : and weight :. Note for Follow up for chronic medical issues: has been off the diet and exercise bandwagon but is back on again- his bp at home has been great with most diastoli cs running in the 60-70 range- his aches and pains are better significantly off the lipitor and he doesnt want to go back stomach has been good and allergies are good too- he is going to stop allergy shots after 9 years Encounter Diagnosis: Asthma (493.11), Allergic Rhinitis(477.9), Hypertension (401.0), Diaphragmatic hernia without mention of obstruction or gangrene (553.3), ear pain- ear was normal- likely ETD- he will try his nasal spray [facility] Office Visit On: 18-Mar-2006 10:54 Encounter Diagnosis: elevated crp- get followup flp and crp-heart and then stop lipitor and recheck flp and crp in 3 mos, flushing- could be rosacea or avapro- pt doesnt want to intervene was just curious- will follow, End: 18-Mar-2006 11:43 myalgias/ neck pain- could be from lipitor - try off and see how does [facility] Office Visit On: 08-Feb-2006 8:27 Encounter Reason: Follow up for chronic medical issues - The patient feels well with minor complaints (neck pain, pt states this is a chronic problem.). Patient has been compliant with instructions. Current medication End: 08-Feb-2006 9:37 e: experiencing side effects (states he is experiencing some muscle aches he thinks are SE from Lipitor.). Patient sleeps 6 hours per night. Nutrition: balanced diet. The medical issues the patient is f ollowing up for include All identified problems below ,high blood pressure and other (h/o high CRP, KAYLEE, Probable CTS). Note for Follow up for chronic medical issues: rash on hand improves with topico rt as long as he uses- allergies well controlled- with the medicine- and reviewed labs and anemia is resolved - psa is normal and stool cards are negative- wants support stockings and says he is getting lightheaded mid afternoon after bp pills take affectEncounter Diagnosis: Hypertension (401.0), Obstructive sleep apnea (327.23), Allergic Rhinitis(477.9), Actinic keratosis (702.0), VARICOSE VEINS- SUPPORT MANJULAE [facility] Historical Summary On: 04-Feb-2006 10:29 [facility] End: 04-Feb-2006 10:42 Nurse Visit On: 07-Jan-2006 17:28 Encounter Diagnosis: SPECIAL SCREENING FOR MALIGNANT NEOPLASMS OF THE RECTUM (V76.41) End: 07-Jan-2006 17:33 [facility] Phone Encounter On: 31-Dec-2005 10:58 Encounter Diagnosis: Unspecified Diagnosis End: 31-Dec-2005 10:59 [facility] Office Visit On: 05-Nov-2005 9:33 Encounter Reason: Follow up for chronic medical issues - The patient feels well with minor complaints ,has good energy level and is sleeping poorly. Patient has been compliant with instructions. Current medication use: n End: 06-Nov-2005 8:07 o side effects. Patient sleeps 6 hours per night. Nutrition: balanced diet ,supplemental vitamins and low salt diet. The medical issues the patient is following up for include asthma ,high blood pressur e and other (anemia and KAYLEE, microscopic hematuria , testicular pain). blood pressure range : and weight :. , [ADDITIONAL REASON] Shoulder Pain - The shoulder pain has been occurring in a persistent pattern for 3 years. The course has been worsening. The shoulder pain is moderate to severe. The shoulder pain is characterized as a sharp stabbing. The shoulder pain is described as being located in the left side of the neck and right side of the neck. The shoulder pain is aggravated by physical activity and work duties. There are no relieving factors. Previous diagnostic tests include MRI. Previous evaluations have included orthopaedic surgeon and chiropractor. Encounter Diagnosis: Unspecified Diagnosis, full note dictated [facility] FallsWilla Freitas; parker guarantor
--- OUTSIDE RECORDS SUMMARY | 2018-05-20 21:51 | XMS RPT_ITS | Continuity of Care Document ---
:1960 Author Organization [facility] Address [address] [place] [address] Phone Care Team Providers Name Role Phone Cari Portillo DO Unavailable Andrea Garcia Unavailable Dr. Long Colmenares Unavailable [facility], [facility] Unavailable Dr. Fabio Robb Unavailable Dr. Markel Montes Unavailable Paco Schaffer Unavailable Axel SINGH, Graham Canales Unavailable Dr. Yariel Palmer Unavailable Dr. Ca Valenzuela Unavailable Dr. Uzair Tay MD Unavailable Shahid SINGH, Kole Arevalo Unavailable [facility] Unavailable Fredi Perez Unavailable Fabiola SINGH, Max Rodriguez Unavailable STACIA Rodriguez Unavailable Unavailable Rebekah Neff Unavailable Unavailable Unavailable Unavailable Problems Name Dates Details Abnormal glucose tolerance test (Renamed from Abnormal glucose tolerance test (GTT)) (R73.09, 790.22) Comments: stopped metformin as trial to come off with sugar conttrol- [facility] went up but over holidays-- he [...] BMI 45.0-49.9, adult (Z68.42, V85.42) Status: Active BPV (benign positional vertigo), bilateral [...] care they told him same but gave charck as trial of smoldering infection causing sx [...] Quantity: 90 {Capsule} Refills: 3 Ordered:03-Jul-2017 Sharon Portillo DO, DO, Kathleen Start : 03-Jul-2017 Active Irbesartan 150 MG Oral Tablet 1 qd (150 MG) Active Levocetirizine Dihydrochloride 5 MG Oral Tablet 1 qd (5 MG) Active Protonix 40 MG Oral Tablet Delayed Release [address] qd for 0 days Quantity: 90 {Tablet} Refills: 3 Ordered:03-Jul-2017 Sharon Portillo DO, DO, Kathleen Start : 03-Jul-2017 Active Simply Sleep 25 [...] days Quantity: 90 {Tablet} Refills: 3 Ordered:28-Oct-2007 Juan DiegoFay Start : 28-Oct-2007 End : 30-Nov-2008 Inactive SYEDA-D 12 HOUR, 60-120MG (Oral Tablet Extended Release 12 Hour) 1 for 0 days Refills: 0 Ordered:09-Sep-2009 WADE Monterroso Start : 29-Dec-2008 Inactive Artificial Tears 0.1-0.3 % Ophthalmic Solution 1 (one) Solution Solution tid for 0 days Quantity: 1 {Bottle} Refills: 0 Ordered:27-Feb-2017 Kassi Brennan LPN Start : 16-May-2016 End : 27-Feb-2017 Inactive Avapro 150 MG Oral Tablet 1 (one) Tablet Tablet qd for 0 days Quantity: 30 {Tablet} Refills: 3 Ordered:12-Mar-2018 Libby Rodriguez LPN Start : 12-Feb-2018 End : 12-Mar-2018 Inactive Aveeno Eczema Therapy 1 % External Cream 1 (one) Cream Cream daily for 0 days Quantity: 1 {Bottle} Refills: 0 Ordered:27-Feb-2017 Kassi Brennan LPN Start : 16-May-2016 End : 27-Feb-2017 [...] Puff(s) daily for 0 days Quantity: 1 {[place]} Refills: 0 Ordered:12-Mar-2018 Libby Rodriguez LPN Start [...] days Quantity: 30 {Tablet} Refills: 2 Ordered:20-Nov-2007 Fay Adamson Start : 20-Nov-2007 End : 23-Mar-2008 Inactive LIDODERM, 5% (External Patch) 1 (one) Patch on 12 hrs off 12 hrs for 0 days Quantity: 10 {Patch} Refills: 0 Ordered:06-Mar-2010 Kassi Brennan LPN Start : 29-Sep-2009 End : 06-Mar-2010 Inactive Meclizine HCl 25 MG Oral Tablet 1 (one) Tablet Tablet q8hr prn for 0 days Quantity: 30 {Tablet} Refills: 0 Ordered:12-Feb-2018 Efren Uriarte CNP Start : 09-Oct-2017 End : 12-Feb-2018 Inactive Meloxicam 15 MG Oral Tablet 1 (one) Tablet Tablet qd with food for 0 days Quantity: 20 {Tablet} Refills: 0 Ordered:12-Feb-2018 Efren Uriarte CNP Start : 25-Sep-2017 End : 12-Feb-2018 Inactive MYCELEX, 10MG (Mouth/Throat Cat) 1 Cat 5 x daily for 10 days Quantity: 50 {Cat} Refills: 0 Ordered:04-May-2011 Efren Uriarte CNP Start : 04-May-2011 End : 14-May-2011 Inactive BNOBHRGF-YGBYIUHIC-JZNXAGRX, 0.1% (Ophthalmic Suspension) apply ointment to each eye q hs (0.1 %) Inactive ProAir HFA 108 (90 Base) MCG/ACT Inhalation Aerosol Solution 2 (two) Aerosol Soln Aerosol Soln puffs qid prn for 0 days Quantity: 1 {Inhaler} Refills: 3 Ordered:12-Mar-2018 Libby Rodriguez LPN Start : 07-Feb-2015 End : 12-Mar-2018 Inactive RHINOCORT AQUA, 32MCG/ACT (Nasal Suspension) 1 for 0 days Refills: 0 Ordered:04-May-2011 Paras PALOMO Naye Start : 29-Dec-2008 End : 04-May-2011 Inactive Tamiflu 75 MG Oral Capsule 1 (one) Capsule daily for 10 days Quantity: 10 {QS} Refills: 0 Ordered:25-Mar-2017 TonyEssence Start : 25-Mar-2017 End : 04-Apr-2017 Inactive [...] Quantity: 30 {Tablet} Refills: 3 Ordered:27-Feb-2017 Sharon Portillo DO, DO, Kathleen Start : 27-Feb-2017 End : 27-Feb-2017 Discontinued Avapro 150 MG Oral Tablet 1 (one) Tablet qd for 0 days Quantity: 90 {Tablet} Refills: 3 Ordered:15-Oct-2016 Sharon Portillo DO, DO, Kathleen Start : 15-Oct-2016 End : 15-Oct-2016 Discontinued AVAPRO, 300MG (Oral Tablet) 1 (one) Tablet daily for 0 days Quantity: 90 {Tablet} Refills: 2 Ordered:17-Aug-2015 Sanket Sharon VOGEL DO, Kathleen Start : 17-Aug-2015 End : 17-Aug-2015 Discontinued Comments:with wt los CELEXA, 10MG (Oral Tablet) 1 (one) Tablet q hs for 0 days Quantity: 90 {Tablet} Refills: 3 Ordered:29-Jan-2011 DO Kathie A Start : 29-Jan-2011 End : 29-Jan-2011 Discontinued CYANOCOBALAMIN, 2000MCG (Oral Tablet) 1 tab qd for 0 days Refills: 0 Ordered:23-Mar-2008 Fay Adamson End : 09-Jun-2007 Discontinued Etodolac 500 MG Oral Tablet 1 tab Tablet BID for 90 days Quantity: 180 {Tablet} Refills: 3 Ordered:16-May-2016 Myla Person LPN Start : 05-Oct-2014 End : 16-May-2016 Discontinued Comments:Dr. Painting FLEXASHLEYL, 10MG (Oral Tablet) 1 Tablet tid prn for 0 days Quantity: 60 {Tablet} Refills: 0 Ordered:31-Oct-2011 Karyn Hunter Start : 31-Oct-2011 End : 31-Oct-2011 Discontinued Gabapentin 300 MG Oral Capsule 1 (one) Capsule Capsule qhs for 5nights then bid for 5nights then tid for 0 days Quantity: 90 {Capsule} Refills: 1 Ordered:20-Apr-2016 Sanket Sharon VOGEL DO, Kathleen Start : 20-Apr-2016 End : 20-Apr-2016 Discontinued Comments:allergy HYDROCHLOROTHIAZIDE, 12.5MG (Oral Tablet) 1 (one) Tablet daily for 90 days Quantity: 90 {Tablet} Refills: 3 Ordered:09-Nov-2009 Oscar VOGELa A Start : 09-Nov-2009 End : 09-Nov-2009 Discontinued HYDROCORTISONE VALERATE, 0.2% (External Cream) 1 Cream apply bid prn for 0 days Quantity: 60 {Cream} Refills: 1 Ordered:07-Jan-2013 Fast DO Kathie A Start : 07-Jan-2013 End : 07-Jan-2013 [...] Quantity: 180 {Tablet} Refills: 3 Ordered:06-Nov-2017 Sharon Portillo DO, DO, Kathleen Start : 06-Nov-2017 End : 06-Nov-2017 Discontinued Comments:working ondiet and exercise Methotrexate 2.5 MG Oral Tablet 7 Tablet once a week for 90 days Quantity: 210 {Tablet} Refills: 0 Ordered:06-Nov-2017 Sharon Portillo DO, DO, Kathleen Start : 06-Nov-2017 End [...] Result: Comments: See Note; NOTES: [facility] [address] [place] [address] OFFICE VISIT Date of Service: 01/18/18 MR#: [id number] Acct: [id number] Name: ZENAWILLA Rep # : [id number] : 1960 Provider: STARR Payne Age/Sex: 57/M Location: [facility] Status: Signed Intake Vital Signs01/18/18 Body Mass [...] SC Q7D 0 03/29/17 [History Confirmed 01/18/18] [facility] Medical History Diabetes (Acute) Hay fever (Acute) [...] Cardio Cardiology: Positive for excessive sweating (at counts include [facility] x 2 nights) and other (h/o HTN [...] Endocrine: Positive for exc essive sweating (at counts include [facility] beds at the [facility] x 2 nights); no fatigue, cold intolerance, flushing, heat intolerance or increased thirst/drinking Aller/Imm Allergy/Immunologic: No wheezing, itchy eyes (arms last 2 days), claude d intolerance, seasonal allergy symptoms or hives Du/Lymp Hematologic/Lymphatic: No easy bruising Exam Const General: cooperative, no acute distress Orientation: alert, oriented x3 [facility] Head: juanita l to inspection, normocephalic Ears: [...] and congestion J06.9 2. Bronchitis J40 Plan [employer] called to Richard Benites DM F/u with [...] Summary (1) Result: Comments: See Note; NOTES: [facility] Physical Therapy [facility] [address] [place] [address]. [address] [place] [address] Fax REHABILITATION SERVICES DISCHAR GE SUMMARY MR#: [id number] Acct: [id number] Name: WILLA MORROW R Rep #: [id number] : 1960 57 From: Farrukh Mcleod DPT, JULIO, CSCS Referring DrLaina: Cari Portillo DO Status: REG RCR Insurance: [facility] SELF PAY INSURANCE HP - PT D/C Summary It has been my pleasure to treat ED R ZENA under orders from Cari Portillo, for the diagnosis of BPPV for a [...] feel free t o call me at [phone]. Thank you for the referral of this patient. Sincerely, Farrukh Mcleod DPT, OC <Electronically signed by Farrukh Mcleod DPT, JULIO, CSCS> 11/01/17 0645 CC: Cari Portillo DO EBG Signed 24-Oct-2017 Inital Evaluation (1) - PT Result: Comments: See Note; NOTES: [facility] Physical Therapy [facility] [address] [place] [address] Fax REHABILITATION SERVICES INITIAL EVALUATION MR#: [id number] Acct: [id number] Name: IWLLA MORROW R Rep #: [id number] : 1960 57 From: Farrukh Mcleod DPT, JULIO, CSCS Referring : Cari Portillo DO Status: REG RCR Insurance: [facility] SELF PAY INSURANCE Patient's Visit Information ED Cristian MORROW is a 57 year old M referred to Physical Therapy by Cari Portillo with a diagnosis of BPPV. Date of [...] to be FAXED BACK to us at [phone] for Medicare purposes. Please let me know if there are questions or concerns regarding this plan of care. Physician Signature: Date: <Electronically signed by Farrukh Mcleod DPT, OCS, CSCS> 0932 CC: Cari Portillo DO EBG Signed For Medicare only, by signing this I certify the plan of care. Physicians Signature Date 25-Sep-2017 Foot min 3 Views Result: Comments: See Note; NOTES: [facility] Imaging Services [address] [place] [address] Foot min 3 Views MR#: [id number] Acct: [id number] Name: WILLA MORROW Rep #: [id number] : 1960 M 57 From: Davin Cárdenas MD PCP: Cari Portillo DO Status: REG CLI Study: Foot min 3 Views Date of Exam: 09/25/17 Exam# [id number] Ordering Dr: Cari Portillo DO STUDY: X-RAY - RIGHT FOOT CLINICAL: [...] Tel , Service support , CC: Cari Portillo DO Soccer Ball Assembler: Signed 25-Sep-2017 Knee 4 or More Views Result: Comments: See Note; NOTES: [facility] Imaging Services [address] [place] [address] Knee 4 or More Views MR#: [id number] Acct: [id number] Name: WILLA MORROW R Rep #: [id number] : 1960 M 57 From: Davin Cárdenas MD PCP: Cari Portillo DO Status: REG CLI Study: Knee 4 or More Views Date of Exam: 09/25/17 Exam# [id number] Ordering Dr: Cari Portillo DO STUDY: X-RAY - RIGHT KNEE REASON [...] Tel , Service support , CC: Cari Portillo DO Soccer Ball Assembler: Signed 04-Jun-2017 Foot min 3 Views Result: Comments: See Note; NOTES: [facility] Imaging Services [address] [place] [address] Foot min 3 Views MR#: [id number] Acct: [id number] Name: WILLA MORROW R Rep #: [id number] : 1960 M 56 From: Anuel Harrison MD PCP: Cari Portillo DO Status: REG CLI Study: Foot min 3 Views Date of Exam: 06/04/17 Exam# [id number] Ordering Dr: Ruchi Valenzuela STUDY: X-RAY - [...] Harrison MD at 23:13 EDT Te l [phone], Service support , CC: Cari Valenzuela DPDinesh Soccer Ball Assembler: Signed 04-Jun-2017 Foot min 3 Views Result: Comments: See Note; NOTES: [facility] Imaging Services [address] [place] [address] Foot min 3 Views MR#: [id number] Acct: [id number] Name: WILLA MORROW Rep #: [id number] : 1960 M 56 From: Anuel Harrison MD PCP: Cari Portillo DO Status: REG CLI Study: Foot min 3 Views Date of Exam: 06/04/17 Exam# [id number] Ordering Dr: Ruchi Valenzuela STUDY: X-RAY - [...] , Service support , CC: Cari Valenzuela [facility] Soccer Ball Assembler: Signed 29-Mar-2017 Urgent Care Visit Report Result: Comments: See Note; NOTES: [facility] [address] [place] [address] OFFICE VISIT Date of Service: 03/29/17 MR#: [id number] Acct: [id number] Name: WILLA MORROW Cristian Rep # : [id number] : 1960 Provider: Antonio CLEMENTS Age/Sex: 56/M Location: [facility] Status: Signed Intake Vital Signs03/29/17 Height 5 [...] Alcohol type: wine HPI HPI De tails: WILLA MORROW, is a 56 M who presents to [...] vis,new,level 3 Diagnoses Sore throat J02.9 03/29/17 3154 <Electronically signed by Antonio CLEMENTS> Date Antonio CLEMENTS Cosigner Signature: Date (if applicable) CC: 08-May-2016 Operative Report Result: Comments: See Note; NOTES: [facility] Records Department [address] [place] [address] Operative Report MR#: [id number] Acct: [id number] Name: WILLA MORROW Rep #: [id number] : 1960 55 From: Long Colmenares MD PCP: Cari Portillo DO Status: DEP CLI DATE OF SERVICE: [...] Scope was withdrawn back in the st [facility]. Retroflexion was performed. A view of [...] lifestyle modifications. MD Lashonda Bentley C: Cari Portillo DO T: SETH JOB: [id number] 05/08/16 1409 <Electronically signed by Long Colmenares MD> Date Long Cunhaigner Signature (If Indicated): Date CC: Cari Mcclellan; Long Colmenares Date Dictated: 04/26/16830 Date Transcribed: 04/26/16830 Soccer Ball Assembler: Signed 18-Apr-2016 PT D/C Summary (1) Result: Comments: See Note; NOTES: [facility] Physical Therapy [facility] [address] [place], [place] [address] Fax REHABILITATION SERVICES DISCHAR GE SUMMARY MR#: [id number] Acct: [id number] Name: WILLA MORROW Rep #: [id number] : 1960 55 From: Farrukh Mcleod DPT, OCS, CSCS Referring DrLaina: Cari Portillo DO Status: REG RCR Insurance: [facility] HP - PT D/C Summary It has been my pleasure to treat ED R ZENA under orders from Cari Portillo, for the diagnosis of cervical rediculopathy for [...] please feel free to call me at [phone]. Thank you for the referral of this patient. Sincerely, Farrukh Mcleod DPT, OC <Electronically sign ed by Farrukh Mcleod DPT, JULIO, CSCS> 04/18/16 0737 CC: Cari Portillo DO EBG Signed 3-Mar-2016 Inital Evaluation (1) - PT Result: Comments: See Note; NOTES: [facility] Physical Therapy [facility] [address] [place] [address] Fax REHABILITATION SERVICES INITIAL EVALUATION MR#: [id number] Acct: [id number] Name: WILLA MORROW Rep #: [id number] : 1960 55 From: Farrukh Mcleod DPT, JULIO, CSCS Referring Dr.: Cari Portillo DO Status: REG RCR Insurance: [facility] Patient's Visit Information ED Cristian MORROW is a 55 year old M referred to Physical Therapy by Cari Portillo with a diagnosis of cervical rediculopathy. 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 Saw Dr. Portillo yesterday as B UT were tight like a rubber band and hurt s all the time. Been that way for years. Worse in last 4-5 months without reason. Sitting and crocheting and on TV/computeralot. Mornings are better. Sleeps well for 7-8 hours, readjusting half way due to neck pain. Uses a Cpap. 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 No SCHERER and no [...] to be FAXED BACK to us at [phone] for Medicare purposes. Please let me know if there are questions or concerns regarding this suki n of care. Physician Signature: Date: <Electronically signed by Farrukh Mcleod DPT, OCS, CSCS> 03/30/16 0653 CC: Cari Portillo DO EBG Signed For Medicare only, by signing this I certify the plan of care. Physicians Signature Date 17-Aug-2015 Spirometry (93491) Result: 17-Aug-2015 ELECTROCARDIOGRAM, COMPLETE (ECG) (17469) Comments: sinus jermaine - no acute chg Result: [MEASUREMENTS ANALYSIS] Date of Test: 08/17/2015 10:09:13; Heart Rate: 56; IN Interval: 160; QRS: 108; QT Interval: 380; Corrected QT Interval (QTc): 373; P Wave [place]: 41; QRS Wave [place]: 38; T Wave [place] : 32; Blood Pressure: 132/82 [ECG DIAGNOSTIC STATEMENTS] Date of Test: 08/17/2015 10:09:13; Summary: Sinus Bradycardia -Prominent R(V1) -nonspecific. BORDERLINE 17-Feb-2016 NCS and/or EMG Patient Result: Comments: See Note; NOTES: [facility] Pulmonary Services/Neurology [address] [place] [address] NCS and/or EMG Patient MR#: [id number] Acct: [id number] Name: WILLA HOLLEY Rep #: [id number] : 1960 54 From: Quinn Wells Referring [...] referral. Quinn Wells MD T: NTS JOB: [id number] 04/13/15 2257 <Electronically signed by Quinn Wells > Date Quinn Wells CC: Kathie Sen DO; QUINN Dolan ate Dictated: 04/13/15 0834 Date Transcribed: 04/13/15833 Soccer Ball Assembler: Signed 12-Feb-2015 Sleep Study Report Result: Comments: See Note; NOTES: [facility] SLEEP DISORDER [facility] [address] [place] [address] Polysomnography with NCPAP MR#: [id number] Acct: [id number] Name: WILLA MORROW Rep #: [id number] : 1960 54 From: Danis Verdugo MD [...] version). Please note that a reference to [facility] AHI in this report is consistent with the current Hypopnea definition according to Medicare Criteria and an [facility] AHI reference is consistent with the current Hypopnea definition according to the AASM criteria and is recognized by [facility] as the RDI. PROCEDURE: The study was attended continuously by a windows server support technician. Monitored parameters includ ed left and right [...] body mass index of 45.8 and an Firestone sleepiness scale score of 0. The patient [...] on. Danis merida MD T: NTS JOB: [id number] CC: Danis Verdugo MD 1503 1503 02/12/15 1012 <Electronically signed by Danis Verdugo MD> Date Danis Verdugo MD Co-signature (if applicable) Date Signed 12-Jan-2015 Carotid Duplex Ultrasound Result: Comments: See Note; NOTES: [facility] Cardiovascular Services [address] [place] [address] Carotid Duplex Ultrasound 01/05/15 1537 MR#: [id number] Acct: [id number] Name: WILLA MORROW Rep #: [id number] : 1960 54 From: Seven Allison MD Attending Dr: Kathie Sen DO Status: REG CLI Ordering Dr: Kathie Sen DO Date: 01/05/15 Location: [facility] Sex: M C Admi tted: Rt. Velocities/BP [...] the left vertebral artery. Procedure Carotid Duplex 01672. Exam per formed in department. Interpretation Summary Mild (<50%) stenosis right extracranial internal carotid. Mild (<50%) stenosis left extracranial internal carotid. Flow within the verte bral arteries is antegrade bilaterally. Ordering Physician: Kathie Sen Referring Physician: Kathie Winter D.O. Performed By: Shari Salinas 01/12/15802 Date Seven Allison MD CC: Kathie Sen DO Date Dictated: 01/05/15 1537 Date Transcribed: 01/12/15802 Soccer Ball Assembler: Signed 20-Oct-2014 Shoulder min 2 Views Result: Comments: See Note; NOTES: [facility] Imaging Services [address] [place] [address] Radiology Report MR#: [id number] Acct: [id number] Name: WILLA MORROW Rep #: [id number] : 1960 M 54 From: Chaim Bergeron MD PCP: Kathie Sen DO Status: REG CLI Study: Shoulder min 2 Views Date of Exam: 10/20/14 Exam# [id number] Ordering Dr: Anthony Teran DO STUDY: X-RAY [...] MD, FACR at 20:20 EDT T el [phone], Service support [phone], 0045 RAD/Shoulder min 2 Views IMPRESSION: Mild arthrosis of the acromioclavicular joint Electronically Signed: Marcos Bergeron MD, FACR at 20:20 EDT , Service support [phone], CC: Kathie Sen DO; Anthony Teran Soccer Ball Assembler: Signed 05-Jul-2014 Emergency Department Summary Result: Comments: See Note; NOTES: [facility] Medical Records Department [address] [place] [address] Emergency Department Summary 07/05/14 1141 MR#: [id number] Acct: [id number] Name: WILLA MORROW R Rep #: [id number] : 1960 53 From: Arsh Macias MD [...] DO at 12:53 EDT , Service support [phone], 07/05/14 11:49 Gallbladder [US] Stat La boratory [...] % Lymph % (Auto) 31.6 (19-41) % [place] % (Auto) 7.4 (0-10) % Eos % [...] 7.0 (5.0 - 8 .0) Ur Specific [place] 1.010 (1.002-1.030) Urine Protein Negative (Negative) mg/dl [...] Unknown Cause, (Male) Prescriptions: Hydrocodone Bitart/Apap 5-325 [[place] 5/325] 1 - 2 tablet PO Q4H PRN PRN #12 tablet PRN Reason: Pain Omeprazole [Prilosec] 20 mg PO DAILY #30 capsule Referrals: Kathie Sen DO [Primary Care Provider] - 3-5 Days What to do if you have Problems For any increased pain, shortness of breath, bleeding, nausea or vomiting, chest pa in, or any unexpected problems, contact your doctor. Call [facility] ([phone]) or report to the closest Emergency Room. Call 911 if necessary. 07/05/14 1502 <Electronically sig roscoe by Arsh Macias MD> Date Arsh Macias MD Cosigner Signature (If Indicated): Date CC: Kathie Sen DO 05-Jul-2014 Gallbladder Result: Comments: See Note; NOTES: [facility] Imaging Services [address] [place] [address] Ultrasound Report MR#: [id number] Acct: [id number] Name: WILLA MORROW Rep #: [id number] : 1960 M 53 From: Ja Saenz DO PCP: Kathie Sen DO Status: REG ER Study: Gallbladder Date of Exam: 07/05/14 Exam# [id number] Ordering Dr: Arsh Macias MD STUDY: ULTRASOUND GAL LBLADDER REASON FOR VISIT: Male, 53 years old. Abdominal pain TECHNIQUE: Ultrasound evaluation of the gallbladder was performed with real-time and static tripp- scale imaging. TECHNICAL QUALITY: Li mited. Examination limited due to a combination of [...] Ankit Mcmahon DO at 12:53 EDT , RedT e support [phone], CC: ARSH MACIAS MD; Kathie Sen DO Soccer Ball Assembler: Signed 20-Jan-2014 Shoulder min 2 Views Result: Comments: See Note; NOTES: [facility] Imaging Services [address] [place] [address] Radiology Report MR#: [id number] Acct: [id number] Name: WILLA MORROW Rep #: [id number] : 1960 M 53 From: Arsh Mi MD PCP: Kathie Sen DO Status: REG CLI Study: Shoulder min 2 Views Date of Exam: 01/20/14 Exam# [id number] Ordering Dr: Kathie Sen DO STUDY: X-RAY [...] MD at 17:11 EST , Service support [phone], RAD/Shoulder min 2 Views IMPRESSION: No fracture. Joint spaces are well-preserved. Electronically Signed: Arsh Mi MD at 17:11 EST Tel , Service support [phone], CC: Kathie Sen DO Soccer Ball Assembler: Signed 23-Sep-2013 NCS and/or EMG Patient Result: Comments: See Note; NOTES: [facility] Pulmonary Services/Neurology [address] [place] [address] NCS and/or EMG Patient MR#: [id number] Acct: [id number] Name: WILLA MORROW Rep #: [id number] : 1960 53 From: Atif Samuels MD Referring Dr: Kathie Sen DO Status: REG CLI Ordering Dr: Kathie Sen DO Date: 09/16/13 Location: N Sex: M C The patient presents for [...] Dictated: 09/16/13 1138 Date Transcribed: 09/16/13 1244 Soccer Ball Assembler: SCHERER Signed 15-May-2013 Spine Cervical (Routine) Result: Comments: See Note; NOTES: [facility] Imaging Services [address] [place] [address] MRI Report MR#: [id number] Acct: [id number] Name: WILLA MORROW Rep #: [id number] : 1960 M 52 From: Chaim Bergeron MD PCP: Kathie Sen DO Status: REG CLI Study: Spine Cervical (Routine) Date of Exam: 05/15/13 Exam# [id number] Ordering Dr: Kathie Sen DO STUDY: MRI [...] M.D. at 9:11 EDT , Service support [phone], CC: Kathie Sen DO Soccer Ball Assembler: Signed 15-May-2013 Spine Lumbar (Routine) Result: Comments: See Note; NOTES: [facility] Imaging Services [address] [place] [address] MRI Report MR#: [id number] Acct: [id number] Name: ZENAWILLA Foster Rep #: [id number] : 1960 M 52 From: Chaim Bergeron MD PCP: Kathie Sen DO Status: REG CLI Study: Spine Lumbar (Routine) Date of Exam: 05/15/13 Exam# [id number] Ordering Dr: Kathie Sen DO STUDY: MRI [...] M.D. at 9:14 EDT , Service support [phone], CC: Kathie Sen DO Soccer Ball Assembler: Signed 11-Feb-2013 PT Discharge Summary Result: Comments: See Note; NOTES: [facility] Physical Therapy [facility] [place] [id number] Fax REHABILITATION SERVICES DISCHARGE SUMMARY MR#: [id number] Acct: [id number] Name: WILLA MORROW Rep #: [id number] : 1960 52 From: Shannen Anne Referring [...] he did have a fall on the temple steps last night and is a little [...] C: Kathie Sen DO T: NTS JOB: [id number] <Electronically signed by Shannen Anne > 02/11/13 0952 CC: * Signed 14-Jan-2013 Inital Evaluation - PT Result: Comments: See Note; NOTES: [facility] Physical Therapy [facility] [address] [place], [place] [id number] Fax REHABILITATION SERVICES INITIAL EVALUATION MR#: [id number] Acct: [id number] Name: WILLA MORROW Rep #: [id number] : 1960 52 From: Shannen Anne Referring Dr.: Kathie Sen DO Status: REG RCR Insurance: SIMPLIFI ALEJANDRO RG [facility] Eval Date: DATE OF SERVICE: 01/12/2013 SUBJECTIVE: [...] He has 3 jobs. 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 He reports that life in crease [...] his complaint of left shoulder pain. Bilateral babbitt spinner strength equals 90 pounds. Bilateral upper extremity [...] of care. He had physical therapy rebecca foster this year for his back and lower extremity symptoms. We will explore further evaluation of his lumbar and lower extremity regions after we see how he tolerates a few visits for his posture and lef t upper extremity. Shannen Anne, PT T: NTS JOB: [id number] <Electronically signed by Shannen Anne > 01/14/13 [...] smoker Vital Signs Date Test Result Details :30 Pulse 81 /min Comments: Pattern: Regular Respiration [...] kg/m2 Body Surface Area Calculated 2.24 m2 5-Eaf-061688:11 Pulse 88 /min Comments: Pattern: Regular Respiration [...] Description Value Details :11 Hemoglobin A1c Comments: [facility] [address] [place], [place], [address] HGB A1C 6.2 % (Normal) Range: 4.2-6.3 :07 CBC W/Diff, Automated Comments: [facility] Uaqvluwort44[address] [place], [place], [address] Absolute Lymph 1.37 {X10_3/ul} (Normal) Range: 0.83-4.51 [...] 4.6-6.2 WBC 5.4 K/mm3 (Normal) Range: 4.4-11.0 29-Xml-98486:07 Comprehensive Metabolic Profil Comments: [facility] Xlnynnrlkc0662 [place], [address] GAP 7 (Normal) Range: 5-15 CO2 29.0 [...] Comments: Please note revised GLUCOSE reference range cwqezfyur61/02/2018. 95-Ugw-42440:07 Microalb:Creat Ratio,Random UR Comments: [facility] [address]qmelzsxw[address] [place], [place], [address] MALB:CREAT Test not performed {mg/g_CRE} (Normal) MICROALBUMIN,UR [...] the US Food and Drug Administration.Performed at: [facility] [address] [place] [address] [id number] Director: Marleny Chapman MD, Phone: [phone] INS RES/DIAB RK . (Normal) LDL SIZE [...] mg/dL (Normal) Range: 100-199 LIPIDS . (Normal) :07 Thyroid Stim Hormone (TSH) Comments: [facility] Ctzjcf[address]ubn1541 [facility]. [place], [place], [address] TSH 1.19 {uIU/mL} (Normal) Range: 0.358-3.74 57-Hvy-54252:07 Urinalysis, Complete Comments: How was Urine Obtained? CLEAN [facility] Iaklytygel5776 [facility]. [place], [place], [address] MUCUS, URINE 0 SEEN {/hpf} (Normal) BACTERIA [...] (Normal) CLARITY Clear (Normal) COLOR Yellow (Normal) :07 Vitamin D,25 Hydroxy Comments: [facility] [address] [place], [place], [address] Vitamin D 25-OH 47.8 ng/mL (Normal) Range: 29.95-100.01 Comments: Vitamin D 25(OH) Status Range Deficiency <20 ng/mL (50nmol/L) Insuffciency 20 - 30 ng/mL (50 - 75 nmol/L) Sufficiency 30 - 100 ng/mL (75 - 250 nmol/L) Toxicity >100 ng/mL (>250 nmol/L) :35 Hemoglobin A1c Comments: [address] [place], [place], [address] HGB A1C 5.7 % (Normal) Range: 4.2-6.3 20-Hka-092168:49 CBC W/Diff, Automated Comments: [address], [address] Absolute Lymph 1.45 {X10_3/ul} (Normal) Range: 0.83-4.51 [...] 4.6-6.2 WBC 7.7 K/mm3 (Normal) Range: 4.4-11.0 12-Osv-721749:49 Comprehensive Metabolic Profil Comments: [facility] Hvakhsupgm0275 [place], [place], [address] GAP 6 (Normal) Range: 5-15 CO2 28.0 [...] A.D.A. criteria.Please note revised GLUCOSE reference range atnpfdvup80/02/2018. 29-Jun-20178:37 CBC W/Diff, Automated Comments: [facility] [address]peukynm[address] [place], [place], [address] Absolute Lymph 1.73 {X10_3/ul} (Normal) Range: 0.83-4.51 [...] 4.4-11.0 29-Jun-20178:37 Comprehensive Metabolic Profil Comments: TOM QUAN GETS CBCD,[facility] Euemihvobd15[address] [place], [place], [address] GAP 4 (Abnormal) Range: 5-15 CO2 29.0 [...] Comments: Please note revised GLUCOSE reference range abxlzjyks94/02/2018. 29-Jun-20178:37 Hemoglobin A1c Comments: [facility] Ssdqhlwoex[address] [place], [address] HGB A1C 6.0 % (Normal) Range: 4.2-6.3 29-Jun-20178:37 Lipid Profile Comments: TOM QUAN GETS CBCD,[facility] Dtgjwagbij36[address] [place], [address] VLDL 9 mg/dL (Normal) Range: 5-40 LDL [...] High Risk 29-Jun-20178:37 Microalb:Creat Ratio,Random UR Comments: [facility] [address]jdluioraw[address] [place], [address] MALB:CREAT 4.1 {mg/g_CRE} (Normal) MICROALBUMIN,UR 10.9 mg/L (Normal) UR CREAT 264.00 mg/dL (Normal) 29-Jun-20178:37 Thyroid Stim Hormone (TSH) Comments: TOM QUAN GETS CBCD,[facility] Yrjayuaqyn1839 [address] [place], [address] TSH 0.84 {uIU/mL} (Normal) Range: 0.358-3.74 29-Jun-20178:37 Urinalysis, Complete Comments: How was Urine Obtained? CLEAN [facility] Oyirrkrdkt2872 [address] [place], [place], [address] MUCUS, URINE 0 SEEN {/hpf} (Normal) BACTERIA [...] Yellow (Normal) 29-Jun-20178:37 Vitamin D,25 Hydroxy Comments: [facility] Zsnptbbtts8672 [facility] [address]. [place], [place], [address] Vitamin D 25-OH 38.9 ng/mL (Normal) Range: 29.95-100.01 Comments: Vitamin D 25(OH) Status Range Deficiency <20 ng/mL (50nmol/L) Insuffciency 20 - 30 ng/mL (50 - 75 nmol/L) Sufficiency 30 - 100 ng/mL (75 - 250 nmol/L) Toxicity >100 ng/mL (>250 nmol/L) 68-Wlo-923999:02 CBC W/Diff, Automated Comments: [facility] [address] [place], [address] Absolute Lymph 1.71 {X10_3/ul} (Normal) [...] 4.6-6.2 WBC 6.8 K/mm3 (Normal) Range: 4.4-11.0 93-Zhy-424210:02 Comprehensive Metabolic Profil Comments: [facility] Dkekzmovjr99[address] [place], [address] GAP 7 (Normal) Range: 5-15 CO2 30.0 mmol/L (Normal) Range: 21.0-32.0 CL 103 mmol/L (Normal) Range: 98-107 K 3.8 mmol/L (Normal) Range: 3.5-5.1 NA 140 mmol/L (Normal) Range: 136-145 T BILI 0.50 mg/dL (Normal) Range: 0.20-1.00 ALT 49 U/L (Normal) Range: 16-61 Comments: Please note revised ALT reference range wvwaunsjt49/28/2018. ALK P 68 U/L (Normal) Range: 45-117 [...] Comments: Please note revised GLUCOSE reference range wqrwtbnan40/02/2018. 08-Vuq-587763:01 Hemoglobin A1c Comments: [facility] [address] [facility] [address] [place], [place], [address] HGB A1C 5.8 % (Normal) Range: 4.2-6.3 21-Xba-61321:12 CBC W/Diff, Automated Comments: [facility] [address] [place], [place], [address] Absolute Lymph 1.51 {X10_3/ul} (Normal) Range: 0.83-4.51 [...] 4.6-6.2 WBC 5.2 K/mm3 (Normal) Range: 4.4-11.0 10-Syo-48361:12 Comprehensive Metabolic Profil Comments: [facility] Xtrxksncqf75[address] [place], [place], [address] GAP 6 (Normal) Range: 5-15 CO2 30.0 [...] 7-18 GLU 96 mg/dL (Normal) Range: 70-110 05-Lef-751033:11 Pathology Report Comments: PERFORMED BY: KWCYT [facility] [place] Cyto Ytzxe65420 Interchange [facility] [id number] BY: [facility] Dermatopathology Wnskunl[address] [id number] Information: [id number] See MATER Comments: Material submitted: .RIGHT LOWER [...] CASSETTE(S) A./LMSLMS/LMSPatho logist provided ICD-10:L82.1, L44.9, I87.9CPT .278284 :42 CBC W/Diff, Automated Comments: DR SANTOS ORDERED CMP CBCDDR SANKET ORDERED A1C LIPID CMP LOREN CBCD [facility] Nvsknwwvdz0[address] [place], [place], [address] Absolute Lymph 2.23 {X10_3/ul} (Normal) Range: 0.83-4.51 [...] 4.6-6.2 WBC 7.4 K/mm3 (Normal) Range: 4.4-11.0 :42 Comprehensive Metabolic Profil Comments: DR SANTOS ORDERED CMP CBCDDR SANKET ORDERED A1C LIPID CMP LOREN CBCD [facility] Vp[address]kfipet9537 [place], [address] GAP 9 (Normal) Range: 5-15 [...] 7-18 GLU 93 mg/dL (Normal) Range: 70-110 7-Lrp-673564:42 Hemoglobin A1c Comments: DR SANTOS ORDERED CMP CBCDDR SANKET ORDERED A1C LIPID CMP LOREN CBCD TSH [facility] Hxvjuuvfar2214 [address] [place], [place], [address] HGB A1C 6.0 % (Normal) Range: 4.2-6.3 3-Opg-372639:42 Lipid Profile Comments: DR SANTOS ORDERED CMP CBCDDR SANKET ORDERED A1C LIPID CMP LOREN CBCD [facility] [address] [place], [address] VLDL 14 mg/dL (Normal) Range: [...] 200-240 mg/dL Borderline >240 mg/dL High Risk 3-Kmq-039452:42 Microalb:Creat Ratio,Random UR Comments: DR SANTOS ORDERED CMP CBCDDR SANKET ORDERED A1C LIPID CMP LOREN CBCD TSH [facility] Gujgngilrm9483 [facility] [place], [place], [address] MALB:CREAT Test not performed {mg/g_CRE} (Normal) MICROALBUMIN,UR < 5.0 mg/L (Normal) UR CREAT 17.60 mg/dL (Normal) 6-Qgl-776795:42 Thyroid Stim Hormone (TSH) Comments: DR SANTOS ORDERED CMP CBCDDR SANKET ORDERED A1C LIPID CMP LOREN CBCD TSH [facility] Sossqbfosp5469 [address] [place], [place], [address] TSH 1.18 {uIU/mL} (Normal) Range: 0.358-3.74 0-Gbq-960440:42 Urinalysis, Complete Comments: DR SANTOS ORDERED CMP CBCDDR SANKET ORDERED A1C LIPID CMP LOREN CBCD TSH UACHow was Urine Obtained? CLEAN [facility] Oeykqqrbxm7321 [place], [address] MUCUS, URINE 0 SEEN {/hpf} [...] Yellow (Normal) :26 CBC W/Diff, Automated Comments: [facility] Whwhvkcheo55[address] [place], [address] Absolute Lymph 1.18 {X10_3/ul} (Normal) Range: 0.83-4.51 [...] Range: 4.4-11.0 :26 Comprehensive Metabolic Profil Comments: [facility] Ehxfpnioom[address] [place], [place], [address] GAP 6 (Normal) Range: 5-15 CO2 31.0 [...] (Normal) Range: 70-110 :26 Hemoglobin A1c Comments: [facility] [address]ok[address] [place], [place], [address] HGB A1C 6.1 % (Normal) Range: 4.2-6.3 :26 Lipid Profile Comments: [facility] Bcuupcdeyp7621 [place], [address] VLDL 12 mg/dL (Normal) Range: 5-40 LDL [...] High Risk :26 Microalb:Creat Ratio,Random UR Comments: [facility] Bvnnbivyjr0946 [place], [address] MALB:CREAT Test not performed {mg/g_CRE} (Normal) MICROALBUMIN,UR < 5.0 mg/L (Normal) UR CREAT 76.30 mg/dL (Normal) :26 Thyroid Stim Hormone (TSH) Comments: [facility] Ejuoyvtzjo6658 [place], [address] TSH 1.08 {uIU/mL} (Normal) Range: 0.358-3.74 :26 Urinalysis, Complete Comments: How was Urine Obtained? [facility] Hdwtxbkeks5845 [place], [address] MUCUS, URINE 0 SEEN {/hpf} [...] Yellow (Normal) :26 Vitamin D,25 Hydroxy Comments: [facility] Sgcfwyprji3835 [facility] [place], [address] Vitamin D 25-OH 44.6 ng/mL (Normal) Comments: Vitamin D 25(OH) Status Range Deficiency <20 ng/mL (50nmol/L) Insuffciency 20 - 30 ng/mL (50 - 75 nmol/L) Sufficiency 30 - 100 ng/mL (75 - 250 nmol/L) Toxicity >100 ng/mL (>250 nmol/L) 85-Bdw-652176:32 CBC W/Diff, Automated Comments: [facility] Otifmvschp5766 [facility] [place], [address] Absolute Lymph 1.73 {X10_3/ul} (Normal) Range: 0.83-4.51 [...] 4.6-6.2 WBC 7.3 K/mm3 (Normal) Range: 4.4-11.0 46-Xnv-454185:32 Comprehensive Metabolic Profil Comments: [facility] Ffdgtrsbeo68[address] [place], [address] GAP 6 (Normal) Range: 5-15 CO2 30.0 [...] : Gastric Biopsy See Note (Normal) Comments: [facility] [address] [place], [place], [address] 00 Comments: Patient: WILLA MORROW R : 1960 (55/M) Acct Num: [id number] Phys: Long Colmenares Unit Num: [id number] Loc: EN Specimen: [id number] Received: 04/26/16847 Spec Type: Gastric B x TISSUES TISSUES: COMMENT The results of immunohistochemistry for Helicobacter pylori will be reported separately ([id number]). GROSS DESCRIPTION Received is one container labele d with the patient's name and designated antrumbody biopsy. The specimen consists of multiple irregular fragments of light andrade soft tissue that in aggregate measure 0.5 x 0.3 x 0.1 cm. The specimen is totally submitted in one cassette. / TUYET:xochitl 04/26/16 TC:3 CPT: 13838 HEADER OPERATION: EGD PRE-OP DIAGNOSIS: Epigastric pain TISSUE SUBMITTED: Antrum body biopsy, rule out gastritis MICROSCOPIC DESCRIPTION Slides are reviewed. The specimen shows fragments of gastric mucosa with chronic inflammatory cell infiltrates in the lamina propria consisting of lymphocytes and plasma candace ls, consistent with mild chronic gastritis. MICROSCOPIC DIAGNOSIS Antrum body, biopsy: Mild gastritis. SJ:xochitl 04/27/16 Signed Cy Rdz 04/27/16 <signature on file> : IMMUNOHISTOCHEMISTRY See Note (Normal) Comments: [facility] [address] [place], [place], [address] 00 Comments: Patient: WILLA MORROW R : 1960 (55/M) Acct Num: [id number] Phys: Long Colmenares Unit Num: [id number] Loc: EN Specimen: [id number] Received: 04/27/161001 Spec Type: IMMUNO TISSUES TISSUES: SPECIMEN INFORMATION: Tissue Source: Antrum body biopsy Clinical Info: Epigastric pain Specimen Number: [id number] CPT code: 26076 METHODOLOGY: Deparaffiniz ed sections of prefer/formalin-fixed tissue [...] developed and their performance characteristics determined by [facility]. They may not have been cleared or a pproved by the U.S. Food and Drug Administration. The FDA has determined that such clearance or approval is not necessary. INTERPRETATION: Antrum body biopsy: Negative for Helicobacter pylori or ganisms. SJ:xochitl 04/30/16 PHYSICIAN AND INSTITUTION [place] [address] Signed Cy Rdz 04/30/16 <signature on file> 09-Cxn-222589:27 Hemoglobin A1c Comments: [facility] [address] [place], [address] HGB A1C 5.8 % (Normal) Range: 4.2-6.3 :58 CBC W/Diff, Automated Comments: [facility] [address] [place], [address] Absolute Lymph 1.42 {X10_3/ul} (Normal) [...] 4.6-6.2 WBC 6.0 K/mm3 (Normal) Range: 4.4-11.0 :58 Comprehensive Metabolic Profil Comments: [facility] [address]vynuo[address] [place], [place], [address] GAP 6 (Normal) Range: 5-15 CO2 30.0 [...] 7-18 GLU 99 mg/dL (Normal) Range: 70-110 00-Fmv-982750:00 Hemoglobin A1c Comments: [facility] Hxxjirvhdx6551 [facility]. [place], [place], [address] HGB A1C 5.9 % (Normal) Range: 4.2-6.3 58-Jnu-220030:02 CBC W/Diff, Automated Comments: DR SANTOS ORDERED CMP CBCDDR SANKET ORDERED LIPID TSH CB[facility] Oxndfsvdiq9798 [facility]. [place], [place], [address] Absolute Lymph 1.32 {X10_3/ul} (Normal) Range: 0.83-4.51 [...] 4.6-6.2 WBC 7.8 K/mm3 (Normal) Range: 4.4-11.0 25-Gjg-756278:02 Comprehensive Metabolic Profil Comments: DR SANTOS ORDERED CMP CBCDDR SANKET ORDERED LIPID TSH CBCD CMP [facility] Qmwsiwrpyf7811 [facility] [place], [address] GAP 6 (Normal) Range: 5-15 CO2 28.0 [...] 7-18 GLU 93 mg/dL (Normal) Range: 70-110 84-Klb-349021:02 Lipid Profile Comments: DR SANTOS ORDERED [facility] ORDERED LIPID TSH CBCD [facility] Drnsaxyteu6061 [place], [address] VLDL 11 mg/dL (Normal) Range: [...] 200-240 mg/dL Borderline >240 mg/dL High Risk 69-Bkr-627480:02 Thyroid Stim Hormone (TSH) Comments: DR SANTOS ORDERED [facility] SANKET ORDERED LIPID TSH CBCD [facility] Japtsizhoh48[address] [place], [place], [address] TSH 0.80 {uIU/mL} (Normal) Range: 0.358-3.74 19-Urk-021243:02 Vitamin D,25 Hydroxy Comments: DR SANTOS ORDERED [facility] ORDERED LIPID TSH CBCD [facility] Zloqtqlukb3307 [address] [place], [address] Vitamin D 25-OH 50.7 ng/mL (Normal) Comments: Vitamin D 25(OH) Status Range Deficiency <20 ng/mL (50nmol/L) Insuffciency 20 - 30 ng/mL (50 - 75 nmol/L) Sufficiency 30 - 100 ng/mL (75 - 250 nmol/L) Toxicity >100 ng/mL (>250 nmol/L) :30 Hemoglobin A1c Comments: [facility] [address]xsoimwko89[address] [place], [address] HGB A1C 5.7 % (Normal) Range: 4.2-6.3 :30 Lipid Profile Comments: [facility] Dmrgbgbnkp2259 [place], [address] VLDL 10 mg/dL (Normal) Range: 5-40 LDL [...] High Risk :30 Microalb:Creat Ratio,Random UR Comments: [facility] Bizrjorlix0517 [place], [address] MALB:CREAT 3.7 {mg/g_CRE} (Normal) MICROALBUMIN,UR 6.1 mg/L (Normal) UR CREAT 163.00 mg/dL (Normal) :30 Thyroid Stim Hormone (TSH) Comments: [facility] Pgrdqvpyvn5122 [address] [place], [address] TSH 1.14 {uIU/mL} (Normal) Range: 0.358-3.74 :30 Urinalysis, Complete Comments: How was Urine Obtained? CLEAN [facility] Gopdtpaqmr7341 [place], [address] MUCUS, URINE RARE {/hpf} (Normal) [...] (Normal) CLARITY Clear (Normal) COLOR Yellow (Normal) :30 Vitamin D,25 Hydroxy Comments: [facility] Tdaonimjai3172 [address] [place], [place], [address] Vitamin D 25-OH 46.5 ng/mL (Normal) Comments: Vitamin D 25(OH) Status Range Deficiency <20 ng/mL (50nmol/L) Insuffciency 20 - 30 ng/mL (50 - 75 nmol/L) Sufficiency 30 - 100 ng/mL (75 - 250 nmol/L) Toxicity >100 ng/mL (>250 nmol/L) 67-Isn-517605:29 CBC W/Diff, Automated Comments: [facility] Wkumngncdn4789 [address] [place], [place], [address] Absolute Lymph 1.74 {X10_3/ul} (Normal) Range: 0.83-4.51 [...] 4.6-6.2 WBC 6.5 K/mm3 (Normal) Range: 4.4-11.0 49-Ikm-610945:29 Comprehensive Metabolic Profil Comments: [facility] Cuqfbpcbgj9[address] [place], [place], [address] GAP 4 (Abnormal) Range: 5-15 CO2 31.0 [...] <126 mg/dLsuggests IMPAIRED HOMEOSTASIS per A.D.A. criteria. 51-Xrh-848864:01 CBC W/Diff, Automated Comments: [facility] Ymefceytxd5806 [place], [address] ; ordered by Max Absolute Lymph 1.83 [...] 4.6-6.2 WBC 5.7 K/mm3 (Normal) Range: 4.4-11.0 91-Vzz-076468:01 Comprehensive Metabolic Profil Comments: [facility] [address]zunmdwoxg0146 [address] [place], [place], [address] GAP 5 (Normal) Range: 5-15 CO2 30.0 [...] 7-18 GLU 87 mg/dL (Normal) Range: 70-110 1-Dwa-273128:24 Alanine Aminotransferas (SGPT) Comments: [facility] Zfrqzffvxt3298 [address] [place], [place], [address] ALT 33 U/L (Normal) Range: 12-78 0-Pcu-248715:24 Albumin, Serum Comments: [place] [address] [address] [place], [address] ALB 3.6 g/dL (Normal) Range: 3.4-5.0 5-Wjb-218345:24 Alkaline Phosphatase Comments: [place] [address] [address] [place], [address] ALK P 71 U/L (Normal) Range: 50-136 1-Lov-804210:24 AST(SGOT) Comments: [address] [place], [address] AST 26 U/L (Normal) Range: 15-37 Comments: Slight Hemolysis, Result may be falsely increased. 5-Foi-990930:24 Bilirubin, Total Comments: [place] [address] [address] [place], [address] T BILI 0.20 mg/dL (Normal) Range: 0.20-1.00 6-Jeb-088587:24 BUN 17 mg/dL (Normal) Comments: [place] [address] [place], [address] Range: 7-18 8-Cwu-111598:24 Calcium,Total Comments: [address] [place], [address] CA 8.3 mg/dL (Abnormal) Range: 8.5-10.1 9-Gdr-577043:24 CBC W/Diff, Automated Comments: [place] [address] [place], [address] Absolute Lymph 1.86 {X10_3/ul} (Normal) Range: 0.83-4.51 [...] 4.6-6.2 WBC 5.9 K/mm3 (Normal) Range: 4.4-11.0 :24 Glucose Comments: [facility] Bawdhsgkyt14[address] [place], [address] GLU 99 mg/dL (Normal) Range: 70-110 2-Vca-203940:24 Hepatitis C Antibodies Comments: [facility] (refer to report for specific site)refer to report for address and phone number; ordered by [facility] HEP C AB <0.1 {s/co_ratio} (Normal) Range: 0.0-0.9 Comments: Negative: < 0.8 Indeterminate: 0.8 - 0.9 Positive: > 0.9 In order to reduce the incidence of a false positive result, the CDC recommends that all s/co ratios between 1.0 and 10.9 be confirmed by a more specific supplemental or PCR testing. [facility] w/Reflex to Verification test #[id number]. 2-Vtp-828814:24 Lyme AB/Total Immuno Comments: [facility] (refer to report for specific site)refer to report for address and phone number LYME Comments: TEST RESULT LIMITSLyme, Total Ab Test/ReflexLyme IgG/IgM Ab <0.91 ISR 0.00 - 0.90 Negative <0.91 AB (Normal) Equivocal 0.91 - 1.09 Positive >1.09 [facility]. [facility] [address] RIGINAL REPORT ON FILE IN LAB CONTAINS ADDITIONAL TEST SITE INFORMATION. 4-Ilk-910441:24 Protein Electroph, S Comments: [facility] (refer to report for specific site)refer to report for address and phone number NOTE: Comment (Normal) Comments: The SPE pattern appears essentially unremarkable. Evidenceof monoclonal protein is not apparent. INTERPRETATION Comment (Normal) Comments: Protein electrophoresis scan will follow via computer,mail, or director meetings delivery. A/G RATIO 1.5 (Normal) Range: 0.7-2.0 GLOBULIN, TOTAL 2.6 g/dL (Normal) Range: 2.0-4.5 M-SPIKE (Normal) Comments: Not Observed GAMMA GLOBULIN 0.8 g/dL (Normal) Range: 0.5-1.6 BETA GLOBULIN 1.0 g/dL (Normal) Range: 0.6-1.3 ALPHA-2 GLOBUL 0.6 g/dL (Normal) Range: 0.4-1.2 ALPHA-1 GLOBUL 0.2 g/dL (Normal) Range: 0.1-0.4 ALBUMIN 3.9 g/dL (Normal) Range: 3.2-5.6 PROTEIN,TOTAL 6.5 g/dL (Normal) Range: 6.0-8.5 :24 Protein, Total Comments: [facility] [address] [place], [place], [address] A/G 1.1 {RATIO} (Normal) Range: 0.9-2.4 GLOB 3.3 g/dL (Normal) Range: 2.3-3.5 T PROT 6.9 g/dL (Normal) Range: 6.4-8.2 :24 Serum Creatinine AND GFR Comments: [facility] [address] [place], [place], [address] EST GFR - AA 96 mL/min (Normal) Comments: GFR Calc EST GFR 79 mL/min (Normal) Comments: Non- GFR Calc CREAT,SERUM 1.03 mg/dL (Normal) Range: 0.70-1.30 Comments: The validity of the calculated GFR AND GFRAA in patients over70 years has not been determined. Clinical correlation isessential. :24 Thyroid Stim Hormone (TSH) Comments: [facility] [address] [place], [place], [address] TSH 1.34 {uIU/mL} (Normal) Range: 0.358-3.74 :24 Uric Acid Comments: [facility] [address] [place], [place], [address] URIC 4.7 mg/dL (Normal) Range: 3.5-7.2 :19 CBC W/Diff, Automated Comments: [facility] [address] [place], [place], [id number] Absolute Lymph 1.45 {X10_3/ul} (Normal) Range: 0.83-4.51 [...] 4.6-6.2 WBC 4.5 K/mm3 (Normal) Range: 4.4-11.0 46-Nsm-78939:19 Comprehensive Metabolic Comments: ORDERED PSA,CMP,CBCD,UACDRLONNIE ORDERED CBCD,CMPUniversity [facility]als [facility]aut [facility] Center [address] [place], [place], [id number] Profil GAP 6 (Normal) Range: 5-15 CO2 [...] - Annual Screen Comments: ORDERED PSA,CMP,CBCD,UACDR.TOM ORDERED CBCD,CMPUniversity Hospitals Conneaut Medical Center [address] [facility] [address] [place], [place], [id number] PSA,TOT SCREEN 0.55 ng/mL (Normal) Range: 0.00-4.00 Comments: This test was performed using the TPSA assay method for [employer] chemistry system. Values obtained with differentassay methods cannot be used interchangably.When changing PSA assays in the course of monitoring apatient, additional sequential testing should be carriedout to confirm baseline values. :19 Urinalysis, Complete Comments: How was Urine Obtained? CLEAN [facility] [address] [facility] [address] [place], [place], [id number] MUCUS, URINE 1+ {/hpf} (Normal) BACTERIA RARE [...] :42 CBC W/Diff, Automated Comments: Test performed at:[facility] [address] [place] [address] Absolute Lymph 1.96 {X10_3/ul} (Normal) [...] 4.6-6.2 WBC 6.0 K/mm3 (Normal) Range: 4.4-11.0 35-Ufb-110279:42 Comprehensive Metabolic Profil Comments: Test performed at:[facility] [address] [place] [address] ; handled by vellenki GAP 4 (Abnormal) Range: 5-15 CO2 30.0 [...] Comments: Please note revised CREATININE reference range /22/2015. BUN 19 mg/dL (Abnormal) Range: 7-18 GLU 93 mg/dL (Normal) Range: 70-110 29-Tgg-221365:13 Liver Profile Comments: Test performed at:[facility] [address] [place], [place] [address] ; ordered by Dr. Milagros Dolan BILI 0.11 mg/dL (Normal) Range: 0.00-0.30 T BILI 0.30 mg/dL (Normal) Range: 0.00-4.00 ALT 34 U/L (Normal) Range: 12-78 ALK P 63 U/L (Normal) Range: 50-136 AST 27 U/L (Normal) Range: 15-37 GLOB 3.1 g/dL (Normal) Range: 2.7-4.2 ALB 3.8 g/dL (Normal) Range: 3.4-5.0 T PROT 6.9 g/dL (Normal) Range: 6.4-8.2 08-Hpg-964378:30 CBC W/Diff, Automated Comments: Test performed at:[facility] [address] [place] [address] Absolute Lymph 2.16 {X10_3/ul} (Normal) [...] 4.6-6.2 WBC 6.2 K/mm3 (Normal) Range: 4.4-11.0 94-Tjr-703379:30 Comprehensive Metabolic Profil Comments: Test performed at:[facility] [address] [place] [address] ; handled by edmund GAP 3 (Abnormal) Range: 5-15 CO2 29.0 [...] 126 mg/dLsuggests DIABETES MELLITUS per A.D.A. criteria. 05-Esh-907472:16 Rapid Flu (35135 x 2) Influenza A Ag negative (Normal) 27-Fyx-618412:05 CBCD ALC 1.47 {X10_3/ul} (Normal) Range: 0.83-4.51 [...] 4.6-6.2 WBC 4.7 K/mm3 (Normal) Range: 4.4-11.0 77-Xpd-298496:05 CMP GAP 5 (Normal) Range: 5-15 CO2 [...] performed using the TPSA assay method for [employer] chemistry system. Values obtained with differentassay methods [...] (Normal) UCLAR Clear (Normal) UCOL Yellow (Normal) :41 CBCD ALC 1.77 {X10_3/ul} (Normal) Range: 0.83-4.51 [...] 4.6-6.2 WBC 5.3 K/mm3 (Normal) Range: 4.4-11.0 41-Zjk-664038:41 CMP GAP 7 (Normal) Range: 5-15 CO2 [...] 7-18 GLU 93 mg/dL (Normal) Range: 70-110 29-Rcv-468905:50 CBCD ANC 3.8 {X10_3/uL} (Normal) Range: 2.0-7.7 [...] 4.6-6.2 WBC 6.6 K/mm3 (Normal) Range: 4.4-11.0 74-Ruw-236047:50 TSH 1.01 {uIU/mL} (Normal) Range: 0.358-3.74 :29 URINE YUE CULTURE-MALIA COL Comments: PATIENT NOT FASTINGPERFORMED BY: LabCoBristol-[facility] Squ[facility] Children's HospitalLezevm7955 [facility] [id number] Information: SRC:UR [id number] COUNT (77681) Result 1 MUG (Normal) Comments: Mixed urogenital flora1,000 Colonies/mL Urine Culture,Comprehensive Final report (Normal) 12-Qzl-924649:37 Urinalysis, Office (51165) UA - BILIRUBIN Large (Normal) UA - [...] mg/dL (Normal) Range: 70-110 :53 LIPID Comments: EFREN URIARTE CHLOE ORDERED CMP ONLY VLDL 8 mg/dL [...] CHOL 135 mg/dL (Normal) Comments: <200 mg/dL Ledzxrtak793-597 mg/dL Borderline>240 mg/dL High Risk :53 PSAD 0.56 ng/mL (Normal) Comments: EFREN URIARTE GUEST EXPERIENCE SPECIALIST ORDERED CMP ONLY Range: 0.0-4.0 Comments: This test was performed using the TPSA assay method for [employer] chemistry system. Values obtained with differentassay methods [...] (Normal) UCLAR Clear (Normal) UCOL Yellow (Normal) 53-Lks-419554:20 KNEE 4 OR MORE VIEWS Radiology Report [...] harper M.D.September 23, 2012 at 2:44:59 PM [id number] Signed GP/GP If you are the referring physician and would like to consult with theradiologist who provided this interpretation, please c mike Menjivar M.D. at [phone]. If this radiologist is unavailable, youwill be directed to another radiologist to assist. If you are a patient with a question regarding this report, plea secontactyour referring physician directly. Professional Interpretation Provided By: [employer], Phone , These documents contain legally protected [...] 09/23/12 1452 Sign by: Dagoberto Cox MD 07-Zve-336175:19 Rapid Strep Test, Office (90369) Comments: neg Rapid Strep Test, Office Negative (Normal) 4-Kzu-825073:41 L/S SPINE,MIN 4 VIEWS Radiology Report See [...] Cox M.D.April 02, 2012 at 1:16:13 PM [id number] Signed GP/GP If you are th e referring physician and would like to consult with theradiologist who provided this interpretation, please contact Raj Menjivar at [phone]. If this radiologist is unavailable, youwill be directed to another radiologist to assist. If you are a patient with a question regarding this report, pleasecontactyour referring physician directly. Professional Interpretation Provided By: [facility] here, Phone , These documents contain legally [...] destructionofthese documents. Dictated on 04/02/12 1241 by Meng Cox MDribed on 04/02/12 1329 by ITS IMPORTSign by Dagoberto Cox MD on 04/02/12 1330 Sign by: Nomi SINGH,Dagoberto :18 CBCMD ANC 2.2 3/uL (Normal) Range: [...] High > or = 500 mg/dL :18 [facility] AMORP 3+ (Normal) UMUC 0 SEEN {/hpf} [...] 6 mg/dL (Abnormal) Comments: DUE TO A PROFESSOR OF LAW'S BACKORDER OF THE ICTOTEST TEST, URINE BILIRUBIN COMFIRMATORY TESTING FOR ALL POSITIVERESULTS WILL BE SUSPENDED. TESTING WILL RESUME WHEN THEICTOTEST TEST IS AVAILABLE. GLUR Normal mg/dL (Normal) UCLAR Cloudy (Normal) UCOL Yellow (Normal) :30 YUE CULTURE-OTHER (71814) Comments: PATIENT NOT FASTINGPERFORMED BY: [facility] [address] [place] [id number] Information: SRC:HUBER [id number] Result 1 MORACA (Normal) Comments: Moraxella (branhamella) [...] :42 VITD 46.4 ng/mL (Normal) Comments: appt 4-9-12 Range: 30.0-100.0 Comments: Vitamin D deficiency has been defined by the [place] [facility] and an Endocrine Society practice guideline as alevel of serum 25-OH vitamin D less than 20 ng/mL (1,2).The Endocrine Society went on to further define vitamin Dinsufficiency as a level between 21 and 29 ng/mL (2).1. IOM ([place] of Medicine). 2010. Dietary reference intakes for calcium and D. [place]: The National Academies Press.2. Cesario MF, Dylan PEPE, Darling SCHERER, et al. Evaluation, treatment, and prevention of vitamin D deficiency: an Endocrine Society clinical practice guideline. JCEM. 2010; 96(7): 1911-30.Performed at: [address], [place] [id number] Director: Concha Jarrell MD, Phone: [phone] :[phone] YUE CULTURE-OTHER (66516) Comments: PATIENT NOT FASTINGPERFORMED BY: [facility] [address]w23[address] [facility] [id number] Information: SRC:THRT [id number] Result 1 RRF (Normal) Comments: Routine respiratory hernán Upper Respiratory Culture Final report (Normal) :41 Rapid Strep Test, Office (32782) Rapid Strep Test, Office Negative (Normal) :55 [...] ug/dL (Normal) Range: 250-450 :03 VIT D,25 08976 45.7 ng/mL (Normal) Range: 32.0-100.0 Comments: Recent studies consider the lower limit of 32.0 ng/mL to jennifer threshold for optimal health.Remigio GIBSON. J Nutr. 2004;135(2):317-22.Performed at: [facility] [place] [address]Lab Director: Concha Jarrell MD, Phone: [phone] :[phone] FECAL OCCULT- Tubes sent home (10703) FECAL OCCULT HGB ASSAY, Negative (Normal) QUAL, 1-3 SIMULTANEOU : C-REACTIVE PROT 4.01 mg/L (Abnormal) Range: [...] 6.4-8.2 GLU 92 mg/dL (Normal) Range: 70-110 6-Kxg-008703:04 D BILI 0.14 mg/dL (Normal) Range: 0.00-0.30 :17 RIBS UNIL 2V NO CXR Radiology Report See Note (Normal) Comments: Exam Number: [id number] CLINICAL:This is a 49-year-old male patient with [...] Report See Note (Normal) Comments: Exam Number: [id number] CLINICAL:This is a 49-year-old male patient with [...] By: DAGOBERTO COX 29-Sep-20099:15 ABDOMEN COMPLETE US (HP) Radiology Report See Note (Normal) Comments: Exam Number: [id number] CLINICAL:This is a 49-year-old male patient with [...] Reported By: DAGOBERTO COX 29-Sep-20098:37 Urinalysis, Office (48589) UA - LEUKOCYTE ESTERASE Negative (Normal) UA - NITRITE Negative (Normal) URINE UROBILINGN MALIA TIMED Normal mg/dL (Normal) UA - PROTEIN Negative mg/dL (Normal) UA - PH 7.0 (Normal) UA - BLOOD Negative (Normal) UA - SPECIFIC GRAVITY 1.015 (Normal) UA - KETONES Negative mg/dL (Normal) UA - BILIRUBIN Large (Normal) UA - GLUCOSE Negative (Normal) :09 Urinalysis, Office (25773) UA - LEUKOCYTE ESTERASE Negative (Normal) UA [...] 0.5 ng/mL (Normal) Range: 0.0-4.0 :08 THERESA-D 704455 THERESA-DIRECT SeeNote (Normal) Comments: Result: Negative :08 ANTI-CCP 783324 4 {units} (Normal) Range: 0-19 Comments: Negative [...] mm/h (Normal) Range: 0-20 :08 HB CORE DL99511 SeeNote (Normal) Comments: Result: NegativePerformed At: [facility] [address] [place], [place] [id number] At: [facility] [address] [id number] :08 HBsAg 6510 HB SURF AG 6510 SeeNote (Normal) Comments: Result: Negative :08 HEBSAB 6395 < 0.1 (Normal) Range: 0.00-0.99 Comments: Status of Immunity Anti-HBs Level Inconsistent with Immunity 0.00 - 0.99Consistent with Immunity >0.99.An Index Value of 1.00 is equivalent to 10 mIU/mL.However the magnitude of the Index Value is notindicative of the total amount of antibody present. :08 HEP C AB 071162 0.1 (Normal) Range: 0.0-0.9 Comments: Negative: < 0.8Indeterminate 0.8 - 0.9Positive: > 0.9.In order to reduce the incidence of a false positiveresult, the CDC recommends that all s/co ratiosbetween 1.0 and 10.9 be confirmed with additionalRIBA or PCR testing. :08 RHEUMATOID FAC 12.7 {IU/mL} (Normal) :08 VIT D,25 19412 33.7 ng/mL (Normal) Range: 32.0-100.0 Comments: Recent studies consider the lower limit of 32.0 ng/mL to jennifer threshold for optimal health.Remigio GIBSON. J Nutr. 2004;135(2):317-22. :15 5-HIAA U24 4069 5-HIAA,U24 4.7 {mg/24_hr} (Normal) Range: 0.0-14.9 5-HIAA,UR 2.6 mg/L (Normal) :15 THERESA-D 944318 THERESA-DIRECT SeeNote (Normal) Comments: Result: Negative Performed At: [facility] [address] [id number] At: [facility] Qcocvc8475 [place], [place] [id number] :15 BMP BUN 21 mg/dL (Abnormal) Range: [...] RHEUMATOID FAC 19.5 {IU/mL} (Abnormal) :15 SJOGREN Gs56226 Anti-SS-A < 0.2 {AI} (Normal) Range: 0.0-0.9 [...] 47-70 WBC 6.5 K/mm3 (Normal) Range: 4.4-11.0 30-Dkh-212375:19 COMP METABOLIC A/G 1.2 {RATIO} (Normal) Range: [...] Range: 0.358-3.74 :21 Rapid Strep Test, Office (88430) Rapid Strep Test, Office Negative (Normal) Comments: :39 BMP BUN 13 mg/dL (Normal) Range: [...] Report See Note (Normal) Comments: Exam Number: [id number] MAMMOGRAM, BILATERAL DIAGNOSTIC DIGITAL AND CAD HISTORYPatient [...] these results has been sent to the [facility] ient. This interpretation was rendered by a radiologist certified under theMammography Quality Standards Act of 1992 (MQSA). The mammograms werealso examined with computer-aided detection software ([employer], [employer] Reported By: JUMANA VIDALES M.D. :32 SPINE, THORACIC (ROUTINE) Radiology Report See Note (Normal) Comments: Exam Number: [id number] MRI THORACIC SPINE. CLINICAL STATEMENTThoracic pain, paresthesia. [...] Report See Note (Normal) Comments: Exam Number: [id number] MRI CERVICAL SPINE CLINICAL STATEMENTNeck pain, paresthesia. [...] T PROT 7.1 g/dL (Normal) Range: 6.4-8.2 24-Mkt-266768:10 LIVER ALB 3.9 g/dL (Normal) Range: 3.4-5.0 ALK P 80 U/L (Normal) Range: 50-136 ALT 42 U/L (Normal) Range: 30-65 AST 18 U/L (Normal) Range: 15-37 D BILI 0.14 mg/dL (Normal) Range: 0.00-0.30 T BILI 0.38 mg/dL (Normal) Range: 0.00-1.00 T PROT 7.5 g/dL (Normal) Range: 6.4-8.2 :51 Iron and TIBC Comments: PATIENT NOT FASTINGPERFORMED BY: Product WorldBristol-My[facility] Squ[facility]b Children's HospitalArxkwd6293 [facility] [id number] Iron Bind.Cap.(TIBC) 333 ug/dL (Normal) Range: 250-450 Iron Saturation 18 % (Normal) Range: 15-55 Iron, Serum 61 ug/dL (Normal) Range: 40-155 UIBC 272 ug/dL (Normal) Range: 150-375 LDH 227 [iU]/L (Normal) Comments: PATIENT NOT FASTINGPERFORMED BY: Rx[facility] ContainmentHelen [facility]6370 [facility] [id number] :51 Range: 100-250 Reticulocyte Count 1.2 % (Normal) Comments: PATIENT NOT FASTINGPERFORMED BY: Product WorldBristol-My[facility] Squ[facility] Children's HospitalWhjewh5565 [facility] [id number] :51 Range: 0.5-3.0 Vitamin B12 672 pg/mL (Normal) Comments: PATIENT NOT FASTINGPERFORMED BY: [facility] ContainmentHel[facility] [place] [address] [id number] :51 Range: 211-911 :51 FOLIC ACID SERUM (35646) Comments: PATIENT NOT FASTINGPERFORMED BY: Rx[facility] ContainmentHelen [facility]6370 [facility] [id number] Folate (Folic Acid), Serum 20.1 ng/mL (Normal) Comments: Indeterminate: 3.4 - 5.4 Deficient: <3.4 :51 FERRITIN (41492) Comments: PATIENT NOT FASTINGPERFORMED BY: Rx[facility] ContainmentHelen [facility]6370 [facility] [id number] Ferritin, Serum 53 ng/mL (Normal) Range: 22-322 [...] was performed using the TPSA method for ABT Molecular Imaging chemistry system.Values obtained with different assay methods cannot be usedinterchangably.When changing PSA assays in the course of monito ring apatient, additional sequential testing should be carriedout to confirm baseline values. :18 TSH 0.84 {uIU/mL} (Normal) Range: 0.34-4.82 :26 GALLBLADDER Radiology Report See Note (Normal) Comments: Exam Number: [id number] GALLBLADDER ULTRASOUND HISTORYChest pain. High resolution real [...] Report See Note (Normal) Comments: Exam Number: [id number] MYOCARDIAL PERFUSION SCAN 14.2 millicuries of Tc99m [...] Report See Note (Normal) Comments: Exam Number: [id number] MR ANGIOGRAM OF BRAIN CLINICAL STATEMENTHeadache, cephalgia. Tingling sensation. TECHNIQUE Noncontrast 3-D wdxz-aw-awbwky MRA. FINDINGSNo MRA evidence of aneurysm or atheros clerotic stenosis of the circleof Jordan or intracranial vertebrobasilar artery system is seen. IMPRESSIONNormal MRA of the parasellar region. MRI OF BRAIN CLINICAL STATEMENT Cephalgia. Paresthesia. Stroke. TECHNIQUEAfter obtaining T1 weighted sagittal shredder operator scan, T1, proton density,T2 weighted, and FLAIR [...] Report See Note (Normal) Comments: Exam Number: [id number] MR ANGIOGRAM OF BRAIN CLINICAL STATEMENTHeadache, cephalgia. Tingling sensation. TECHNIQUE Noncontrast 3-D dnha-vh-uekfon MRA. FINDINGSNo MRA evidence of aneurysm or atheros clerotic stenosis of the circleof Jordan or intracranial vertebrobasilar artery system is seen. IMPRESSIONNormal MRA of the parasellar region. MRI OF BRAIN CLINICAL STATEMENT Cephalgia. Paresthesia. Stroke. TECHNIQUEAfter obtaining T1 weighted sagittal shredder operator scan, T1, proton density,T2 weighted, and FLAIR [...] 500 mg/dL VLDL 9 mg/dL (Normal) Range: -40 :22 C-REACTIVE PROT 4.88 mg/L (Normal) Range: [...] pain, unspecified chronicity 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 Evaporator Letter Indication: Rheumatoid arthritis Hypertension : Diet, [...] Indication: Rheumatoid arthritis 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 Evaporator Letter Indication: Rheumatoid arthritis Abnormal glucose tolerance [...] Indication: Vitamin D deficiency Asthma : Reviewed Evaporator Letter- just had spiromety done Indication: Asthma [...] tolerance test (GTT)) 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 Evaporator Letter Indication: Rheumatoid arthritis Hypertension : Reviewed [...] Indication: Rheumatoid arthritis 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 Evaporator Letter- dr De Indication: Rheumatoid arthritis Itching [...] ANTIGEN) (V76.44)Indication: Screening for prostate cancer On: 86-Syl-11598:06 Request CBC W/AUTO DIFF WBC (73538)Indication: Eosinophilia On: 78-Qgw-33819:03 Request HGB A1C (21242)Indication: Abnormal glucose tolerance test (Renamed from Abnormal glucose tolerance test (GTT)) On: 28-Feb-2018 Request Comments: standing order for q4mo for one yr HGB A1C (28013)Indication: Abnormal glucose tolerance test (Renamed from Abnormal glucose tolerance test (GTT)) On: 29-Nov-2017 Request CALCIFIDIOL (08930) VIT D 25Indication: Vitamin D deficiency On: 61-Zdg-68405:51 Request TSH (87323)Indication: Abnormal glucose tolerance test (Renamed from Abnormal glucose tolerance test (GTT)) On: 21-Spv-35191:51 Request URINALYSIS, W/ MICRO (27911)Indication: Abnormal glucose tolerance test (Renamed from Abnormal glucose tolerance test (GTT)) On: 19-Ufv-36683:51 Request MICROALBUMIN: CREATININE RATIO (84496) AND (04925)Indication: Abnormal glucose tolerance test (Renamed from Abnormal glucose tolerance test (GTT)) On: :51 Request METABOLIC PANEL, COMPREHENSIVE (45548)Indication: Abnormal glucose tolerance test (Renamed from Abnormal glucose tolerance test (GTT)) On: : Request ANETA ESPINOZA, BY NMR (33631)Indication: Abnormal glucose tolerance test (Renamed from Abnormal glucose tolerance test (GTT)) On: :51 Request CBC W/AUTO DIFF WBC (23818)Indication: Abnormal glucose tolerance test (Renamed from Abnormal glucose tolerance test (GTT)) On: :51 Request HGB A1C (14898)Indication: Abnormal glucose tolerance test (Renamed from Abnormal glucose tolerance test (GTT)) On: 31-Oct-2017 Request Comments: standing order for q4mo for one yr HGB A1C (26924)Indication: Abnormal glucose tolerance test (Renamed from Abnormal glucose tolerance test (GTT)) On: 01-Aug-2017 Request HGB A1C (96901)Indication: Abnormal glucose tolerance test (Renamed from Abnormal glucose tolerance test (GTT)) On: 03-Jul-20178:49 Request Comments: standing order for q4mo for one yr HGB A1C (91596)Indication: Abnormal glucose tolerance test (Renamed from Abnormal glucose tolerance test (GTT)) On: 1-Dah-871249:10 Request CALCIFIDIOL (01073) VIT D 25Indication: Vitamin D deficiency On: :29 Request TSH (83178)Indication: Abnormal glucose tolerance test (Renamed from Abnormal glucose tolerance test (GTT)) On: 27-Feb-20178:28 Request URINALYSIS, W/ MICRO (63200)Indication: Abnormal glucose tolerance test (Renamed from Abnormal glucose tolerance test (GTT)) On: :28 Request MICROALBUMIN: CREATININE RATIO (80535) AND (86186)Indication: Abnormal glucose tolerance test (Renamed from Abnormal glucose tolerance test (GTT)) On: : Request METABOLIC PANEL, COMPREHENSIVE (66037)Indication: Abnormal glucose tolerance test (Renamed from Abnormal glucose tolerance test (GTT)) On: : Request LIPID PANEL (45751)Indication: Abnormal glucose tolerance test (Renamed from Abnormal glucose tolerance test (GTT)) On: : Request CBC W/AUTO DIFF WBC (39124)Indication: Abnormal glucose tolerance test (Renamed from Abnormal glucose tolerance test (GTT)) On: Request HGB A1C (12881)Indication: Abnormal glucose tolerance test (Renamed from Abnormal glucose tolerance test (GTT)) On: 95-Hyc-481868:04 Request HGB A1C (42170)Indication: Abnormal glucose tolerance test (Renamed from Abnormal glucose tolerance test (GTT)) On: 48-Hcp-485296:35 Request HGB A1C (71959)Indication: Abnormal glucose tolerance test (Renamed from Abnormal glucose tolerance test (GTT)) On: 3-Ocy-860815:45 Request CALCIFIDIOL (82244) VIT D 25Indication: Vitamin D deficiency On: 7-Faw-366480:51 Request HGB A1C (78213)Indication: Abnormal glucose tolerance test (Renamed from Abnormal glucose tolerance test (GTT)) On: :50 Request TSH (00566)Indication: Abnormal glucose tolerance test (Renamed from Abnormal glucose tolerance test (GTT)) On: :50 Request URINALYSIS, W/ MICRO (20672)Indication: Abnormal glucose tolerance test (Renamed from Abnormal glucose tolerance test (GTT)) On: :50 Request MICROALBUMIN: CREATININE RATIO (24423) AND (51505)Indication: Abnormal glucose tolerance test (Renamed from Abnormal glucose tolerance test (GTT)) On: :50 Request METABOLIC PANEL, COMPREHENSIVE (59487)Indication: Abnormal glucose tolerance test (Renamed from Abnormal glucose tolerance test (GTT)) On: :50 Request LIPID PANEL (89488)Indication: Abnormal glucose tolerance test (Renamed from Abnormal glucose tolerance test (GTT)) On: :50 Request CBC W/AUTO DIFF WBC (91720)Indication: Abnormal glucose tolerance test (Renamed from Abnormal glucose tolerance test (GTT)) On: 0-Abo-652501:50 Request HGB A1C (56396)Indication: Abnormal glucose tolerance test (Renamed from Abnormal glucose tolerance test (GTT)) On: 37-Zrk-919467:11 Request HGB A1C (60362)Indication: Abnormal glucose tolerance test (Renamed from Abnormal glucose tolerance test (GTT)) On: :32 Request Lipid Panel (91106)Indication: Abnormal glucose tolerance test (Renamed from Abnormal glucose tolerance test (GTT)) On: :55 Request TSH (59368)Indication: Neck pain On: :54 Request CBC, Platelets & Auto Diff (53620)Indication: Hypertension On: :54 Request Metabolic Panel, Comprehensive (75373)Indication: Hypertension On: :54 Request CALCIFEDIOL (80384)Indication: Vitamin D deficiency On: :53 Request HGB A1C (29677)Indication: Hyperglycemia On: :49 Request TSH (05859)Indication: Other anxiety states On: :45 Request FECAL OCCULT- Tubes sent home (90332)Indication: Encounter for screening for malignant neoplasm of colon (Renamed from Special screening for malignant neoplasms, colon) On: :43 Request CALCIFIDIOL (52633) VIT D 25Indication: Vitamin D deficiency On: :43 Request URINALYSIS, W/ MICRO (86062)Indication: Hypertension On: :32 Request MICROALBUMIN: CREATININE RATIO (15808) AND (84348)Indication: Hypertension On: :32 Request LIPID PANEL (81300)Indication: Hypertension On: :32 Request Urinalysis, Office (54023)Indication: Abnormal urine On: :12 Request URINE YUE CULTURE (MALIA COL COUNT) (25587)Indication: Abnormal urine On: :12 Request PSA (PROSTATE SPECIFIC ANTIGEN) (V76.44)Indication: Screening for prostate cancer On: :14 Request URINALYSIS, W/ MICRO (94132)Indication: Hypertension On: :14 Request CBC W/AUTO DIFF WBC (38680)Indication: Hypertension On: :14 Request METABOLIC PANEL, COMPREHENSIVE (22582)Indication: Hypertension On: :14 Request URINE YUE CULTURE-IDENTIFICATN (71758)Indication: Abnormal urine On: 79-Vmo-578552:38 Request PSA (PROSTATE SPECIFIC ANTIGEN) (V76.44)Indication: Screening for prostate cancer On: :03 Request URINALYSIS, W/ MICRO (52757)Indication: Hypertension On: :02 Request CBC WITH MANUAL DIFF (65004)Indication: Hypertension On: : Request METABOLIC PANEL, COMPREHENSIVE (95809)Indication: Hypertension On: :02 Request TSH (40210)Indication: SYMPTOMS INVOLVING SKIN AND OTHER INTEGUMENTARY TISSUE, FLUSHING On: 82-Smm-939961:25 Request CBC WITH MANUAL DIFF (70813)Indication: SYMPTOMS INVOLVING SKIN AND OTHER INTEGUMENTARY TISSUE, FLUSHING On: 75-Luh-010686:25 Request CBC WITH MANUAL DIFF (48771)Indication: SYMPTOMS INVOLVING SKIN AND OTHER INTEGUMENTARY TISSUE, FLUSHING On: 53-Tas-855302:35 Request TSH (30709)Indication: SYMPTOMS INVOLVING SKIN AND OTHER INTEGUMENTARY TISSUE, FLUSHING On: 06-Ejn-085422:35 Request SEROTONIN (84547)Indication: SYMPTOMS INVOLVING SKIN AND OTHER INTEGUMENTARY TISSUE, FLUSHING On: 52-Szj-463336:34 Request METANEPHRINES - URINE ([id number])Indication: SYMPTOMS INVOLVING SKIN AND OTHER INTEGUMENTARY TISSUE, FLUSHING On: 72-Nrn-055614:34 Request CATECHOLAMINES TOTAL, URINE ([id number])Indication: SYMPTOMS INVOLVING SKIN AND OTHER INTEGUMENTARY TISSUE, FLUSHING On: 72-Avv-213991:34 Request URINE VMA ([id number])Indication: SYMPTOMS INVOLVING SKIN AND OTHER INTEGUMENTARY TISSUE, FLUSHING On: 75-Nva-552741:34 Request PSA (PROSTATE SPECIFIC ANTIGEN) (37039)Indication: Screening for prostate cancer On: 8-Pyn-185446:57 Request Metabolic Panel, Comprehensive ([id number])Indication: Hypertension On: 0-Nsq-818089:56 Request CBC with manual diff ([id number])Indication: Hypertension On: :56 Request URINALYSIS ([id number])Indication: Hypertension On: 3-Bzb-714323:56 Request Lipid Panel ([id number])Indication: SCREENING FOR HYPERLIPIDEMIA On: 2-Nfy-570894:56 Request Metabolic Panel, Comprehensive ([id number])Indication: Hypertension On: 2-Fhc-535887:56 Request Comments: to be done in 1-2 weeks YUE CULTURE-OTHER ([id number])Indication: Pharyngitis, acute On: 29-Ahp-913753:19 Request Rapid Strep Test, Office ([id number])Indication: Pharyngitis, acute On: 82-Gpp-209633:38 Request LIPID PANEL ([id number])Indication: Hypertension On: 1-Rzv-656888:41 Request CBC WITH MANUAL DIFF ([id number])Indication: Hypertension On: 3-Obc-612269:41 Request METABOLIC PANEL, COMPREHENSIVE ([id number])Indication: Hypertension On: 7-Lqo-905581:41 Request URINALYSIS, W/ MICRO ([id number])Indication: Abnormal urine On: 8-Vxy-293020:41 Request Vitamin D Hydroxy ([id number])Indication: Paresthesia On: :55 Request URINALYSIS, W/ MICRO ([id number])Indication: Hypertension On: :52 Request METABOLIC PANEL, COMPREHENSIVE ([id number])Indication: Hypertension On: 9-Ssj-774816:52 Request LIPID PANEL ([id number])Indication: Carotid stenosis On: 6-Usf-083129:51 Request PSA (PROSTATE SPECIFIC ANTIGEN) (V76.44)Indication: Screening for prostate cancer On: 6-Ybu-431389:51 Request CBC WITH MANUAL DIFF ([id number])Indication: Iron deficiency anemia, unspecified On: 5-Acx-953173:51 Request CBC WITH MANUAL DIFF ([id number])Indication: Iron deficiency anemia, unspecified On: 55-Nsx-297985:11 Request IRON BINDING CAPACITY (TIBC) ([id number])Indication: Iron deficiency anemia, unspecified On: 59-Slh-738267:11 Request FERRITIN ([id number])Indication: Iron deficiency anemia, unspecified On: 12-Dsy-419215:11 Request IRON ([id number])Indication: Iron deficiency anemia, unspecified On: 33-Qvv-562361:11 Request CBC WITH MANUAL DIFF ([id number])Indication: Iron deficiency anemia, unspecified On: :17 Request LIPID PANEL ([id number])Indication: Hypertension On: :17 Request METABOLIC PANEL, COMPREHENSIVE ([id number])Indication: Hypertension On: :17 Request IRON BINDING CAPACITY (TIBC) ([id number])Indication: Iron deficiency anemia, unspecified On: :16 Request FERRITIN ([id number])Indication: Iron deficiency anemia, unspecified On: :16 Request IRON ([id number])Indication: Iron deficiency anemia, unspecified On: :16 Request Vitamin D Hydroxy ([id number])Indication: Rheumatoid arthritis On: 52-Nwq-119237:58 Request CBC WITH MANUAL DIFF ([id number])Indication: Iron deficiency anemia, unspecified On: 20-Icd-625757:58 Request FERRITIN ([id number])Indication: Iron deficiency anemia, unspecified On: 49-Crb-825239:58 Request IRON BINDING CAPACITY (TIBC) ([id number])Indication: Iron deficiency anemia, unspecified On: 13-Enn-931150:58 Request IRON ([id number])Indication: Iron deficiency anemia, unspecified On: 39-Fnz-038623:58 Request PSA (PROSTATE SPECIFIC ANTIGEN) (V76.44)Indication: Screening for prostate cancer On: 63-Six-289016:48 Request FOLIC ACID SERUM ([id number])Indication: Anemia NEC On: :40 Request VITAMIN B-12 (CYANOCOBALAMIN) ([id number])Indication: Anemia NEC On: :40 Request RETICULOCYTE COUNT MANUL ([id number])Indication: Anemia NEC On: :40 Request LDH (LD) (LACTATE DEHYDROGENASE) ([id number])Indication: Anemia NEC On: :40 Request IRON BINDING CAPACITY (TIBC) ([id number])Indication: Anemia NEC On: :40 Request FERRITIN ([id number])Indication: Anemia NEC On: :40 Request IRON ([id number])Indication: Anemia NEC On: :40 Request CBC, PLATELETS & AUT DIFF ([id number])Indication: Anemia NEC On: :40 Request Metabolic Panel, Comprehensive ([id number])Indication: Abdominal pain, acute, right upper quadrant On: :44 Request CBC with manual diff ([id number])Indication: Abdominal pain, acute, right upper quadrant On: :43 Request HEPATIC FUNCTION PANEL ([id number])Indication: Abdominal pain, acute, right upper quadrant On: :41 Request CBC WITH MANUAL DIFF ([id number])Indication: Rheumatoid arthritis On: 74-Vzs-625702:46 Request METABOLIC PANEL, COMPREHENSIVE ([id number])Indication: Hypertension On: 03-Siw-469296:45 Request C-REACTIVE PROTEIN ([id number])Indication: Raynaud's syndrome On: 96-Bvr-990740:26 Request SED RATE ERYTHROCYTE ([id number])Indication: Raynaud's syndrome On: 54-Xqx-725336:26 Request RHEUMATOID FACTOR-QUANT ([id number])Indication: Raynaud's syndrome On: 81-Ebh-125912:26 Request THERESA (ANTINUCLEAR ANTIBODY) ([id number])Indication: Raynaud's syndrome On: 97-Qhw-826614:26 Request PSA (PROSTATE SPECIFIC ANTIGEN) (V76.44)Indication: Screening for prostate cancer On: 91-Qlz-373749:47 Request URINALYSIS, W/ MICRO ([id number])Indication: Hypertension On: 73-Ogi-227679:47 Request LIPID PANEL ([id number])Indication: Hypertension On: 11-Sjr-452308:46 Request TSH ([id number])Indication: Rash On: 11-Rdf-964551:46 Request METABOLIC PANEL, COMPREHENSIVE ([id number])Indication: Hypertension On: 73-Iqq-506959:46 Request CBC WITH MANUAL DIFF ([id number])Indication: Hypertension On: 21-Qaw-227731:46 Request Metabolic Panel, Basic ([id number])Indication: Hypertension On: 3-Dwa-533453:11 Request HEPATIC FUNCTION PANEL ([id number])Indication: onychomycosis On: : Request Comments: q month for 2 months VITAMIN B-12 (CYANOCOBALAMIN) ([id number])Indication: Anemia, unspecified On: :24 Request RETICULOCYTE COUNT MANUL ([id number])Indication: Anemia, unspecified On: :24 Request LDH (LD) (LACTATE DEHYDROGENASE) ([id number])Indication: Anemia, unspecified On: :24 Request IRON BINDING CAPACITY (TIBC) ([id number])Indication: Anemia, unspecified On: :24 Request IRON ([id number])Indication: Anemia, unspecified On: :24 Request CBC WITH MANUAL DIFF ([id number])Indication: Anemia, unspecified On: :24 Request HEPATIC FUNCTION PANEL ([id number])Indication: onychomycosis On: 4-Rdt-957505:15 Request TSH ([id number])Indication: Hypertension On: :15 Request LIPID PANEL ([id number])Indication: Hypertension On: :15 Request METABOLIC PANEL, COMPREHENSIVE ([id number])Indication: Hypertension On: 95-Utf-510857:15 Request CBC WITH MANUAL DIFF ([id number])Indication: Hypertension On: :14 Request PSA (PROSTATE SPECIFIC ANTIGEN) (V76.44)Indication: Screening for prostate cancer On: 04-Jdz-868454:12 Request PTT (Activated Partial Thromboplastin Time) ([id number])Indication: Paresthesia On: :52 Request PT (Prothrobim Time) ([id number])Indication: Paresthesia On: 85-Sub-716032:52 Request TSH ([id number])Indication: Paresthesia On: 12-Ido-066912:52 Request METABOLIC PANEL, COMPREHENSIVE ([id number])Indication: Paresthesia On: :52 Request CBC WITH MANUAL DIFF ([id number])Indication: Paresthesia On: 10-Sgc-025688:52 Request VITAMIN B-12 (CYANOCOBALAMIN) ([id number])Indication: Paresthesia On: 02-Mmu-400708:52 Request C-REACTIVE PROTEIN ([id number])Indication: Hypertension On: 09-Sap-313604:04 Request LIPID PANEL ([id number])Indication: Hypertension On: 07-Qen-852980:04 Request URINALYSIS W/O MICRO ([id number])Indication: Hypertension On: 81-Vya-935931:02 Request TSH ([id number])Indication: Hypertension On: :02 Request CBC WITH MANUAL DIFF ([id number])Indication: Hypertension On: 67-Jaq-366415:02 Request METABOLIC PANEL, COMPREHENSIVE ([id number])Indication: Hypertension On: 19-Brl-027255:02 Request URINALYSIS W/O MICRO ([id number])Indication: Proteinuria On: :02 Request Stool Guiac, Office ([id number])Indication: Encounter for screening for malignant neoplasm of rectum On: 41-Cjy-943537:32 Request Planned Encounters Medical; 4 Month FU - On: 16-Jul-2018 8:00 [facility] Cari Portillo DO, DO, Kathleen Planned Procedures Spirometry ([id number])By: Sanket VOGEL, On: 06-Nov-2017 Intent Cari Encinas DO Comments: normal and not taking inhalers -- treating inhalers instead ELECTROCARDIOGRAM, COMPLETE (ECG) On: 06-Nov-2017 Intent ([id number])By: Cari Portillo DO Comments: nsr no acute chg -normal axis Cari Portillo DO Radiology - Knee - RightBy: Sanket On: 25-Sep-2017 Cari Valentino DO, DO, Kathleen X-RAY OF FOOT, THREE VIEWS On: 25-Sep-2017 Intent ([id number])By: Cari Portillo DO Comments: right Cari Portillo DO ELECTROCARDIOGRAM, COMPLETE (ECG) On: 06-Aug-2016 Intent ([id number])By: Cari Portillo DO Comments: nsr no acute chg Cari Portillo DO Solu -Medrol Injection, 125 mg On: 20-Apr-2016 Intent ([id number])By: Cari Portillo DO Comments: Lot:[id number]:08/13Dose:125mgRoute:imSite:l hipGiven By:FRANKLIN signed Cari Portillo DO US DOPPLER CAROTID BILATERAL On: 02-Apr-2016 Intent ([id number])By: Cari Portillo DO, DO, Kathleen Radiology - Knee - LeftBy: Fast DO, On: 23-Mar-2015 Intent Kathie A Radiology - Ankle - LeftBy: Fast DO, On: 23-Mar-2015 Intent Kathie A Venous Doppler - LeftBy: Fast DO, On: 07-Feb-2015 Intent Kathie A Comments: leg Nerve ConductionBy: Fast DO, Kathie A On: 07-Feb-2015 Intent Comments: both upper ext EMGBy: Fast DO, Kathie A On: 07-Feb-2015 Intent Comments: both upper ext Cartoid DopplerBy: Fast DO, Kathie A On: 07-Jun-2014 Intent Solu -Medrol Injection, 125 mg On: 22-Feb-2014 Intent ([id number])By: Efren Uriarte CNP Comments: lot [id number] 3.67009 mgright gmIMas, SNELLER HAND Aerosol Treatment ([id number])By: Laura On: 22-Feb-2014 Intent Efren CORONA Radiology - Shoulder - LeftBy: Fast On: 18-Jan-2014 Intent DO Kathie A Comments: and ac joint COMP EYE EXAMINATION, ESTAB PATIENT On: 19-Oct-2013 Intent ([id number])By: Efren Uriarte CNP Nerve ConductionBy: Fast DO, Kathie A On: 24-Jun-2013 Intent Comments: bilateral lower EMGBy: Fast DO, Kathie A On: 24-Jun-2013 Intent Comments: bilateral lower ext- right greater than left Eprescribed prescriptions ([id number])By: On: 24-Apr-2013 Intent Fast DO, Kathie A MRI - Lumbar SpineBy: Fast DO Kathie On: 24-Apr-2013 Intent A MRI - Cervical SpineBy: Fast DO, On: 24-Apr-2013 Intent Kathie A ELECTROCARDIOGRAM, COMPLETE (ECG) On: 24-Apr-2013 Intent ([id number])By: Fast DO Kathie A Comments: ekg showed normal sinus rhythym, normal axis, no acute st/t wave changes - early repolar Radiology - Cervical SpineBy: Fast On: 07-Jan-2013 Intent DO, Kathie A Eprescribed prescriptions ([id number])By: On: 07-Jan-2013 Intent Karyn Hunter PHYSICAL THERAPY EVALUATION On: 23-Sep-2012 Intent ([id number])By: Efren Uriarte CNP Radiology - Knee - LeftBy: Laura On: 23-Sep-2012 Intent Efren CORONA Comments: call with wet read to CIm Eprescribed prescriptions ([id number])By: On: 23-Sep-2012 Intent Laura Efren CORONA SPECIMEN HNDLNG/TRNSPRT, OFFC > LAB On: 14-Jul-2012 Intent ([id number])By: Naye Crain LPN Eprescribed prescriptions ([id number])By: On: 03-Apr-2012 Intent Fast DO, Kathie A Radiology - Lumbar SpineBy: Fast DO, On: 02-Apr-2012 Intent Kathie A Eprescribed prescriptions ([id number])By: On: 03-Mar-2012 Intent Karyn Hunter SPECIMEN HNDLNG/TRNSPRT, OFFC > LAB On: 13-Feb-2012 Intent ([id number])By: Naye Crain LPN Cartoid DopplerBy: Fast DO, Kathie A On: 31-Oct-2011 Intent Comments: nov Aerosol Treatment ([id number])By: Laura On: 04-May-2011 Intent Efren CORONA SPECIMEN HNDLNG/TRNSPRT, OFFC > LAB On: 04-May-2011 Intent ([id number])By: Naye Crain LPN Eprescribed prescriptions ([id number])By: On: 29-Jan-2011 Intent Fast DO, Kathie A FLU VAC, SPLIT, >3 YEARS, INTRAMUSC On: 29-Jan-2011 Intent ([id number])By: Karyn Hunter Comments: refuses TDAP VACCINE >7 IM ([id number])By: Al On: 24-Oct-2010 Intent Rocío Comments: Lot:[id number]:11/15/12Amt:prefilledRoute:IMSite:right deltGiven By: STACIA Kimbrough Cartoid DopplerBy: Fast DO, Kathie A On: 24-Oct-2010 Intent EKG ([id number])By: Karyn Hunter On: 24-Oct-2010 Intent Comments: ekg showed normal sinus rhythym, normal axis, no acute st/t wave changes ivcd- early re[polar no change Ultrasound - Abdomen CompleteBy: On: 29-Sep-2009 Intent Laura CORONAEfren Comments: today and call wet read M. Laura Lotscujsa-Dtd-Aoxab ([id number])By: Laura On: 29-Sep-2009 Intent Efren CORONA Comments: today Radiology - ChestBy: Efren Uriarte CNP On: 29-Sep-2009 Intent Mickey Comments: AP and lateral today ELECTROCARDIOGRAM, COMPLETE (ECG) On: 30-Nov-2008 Intent ([id number])By: Efren Uriarte CNP Bio Z ([id number])By: Efren Uriarte CNP On: 30-Nov-2008 Intent Nerve ConductionBy: Fast DO, Kathie A On: 23-Mar-2008 Intent Comments: both upper extremities EMGBy: Fast DO Kathie A On: 23-Mar-2008 Intent Comments: both upper ext MRI - Thoracic SpineBy: Fast DO, On: 23-Mar-2008 Intent Kathie A MRI - Cervical SpineBy: Fast DO, On: 23-Mar-2008 Intent Akthie A Ultrasound - GallbladderBy: cMkinley DO, On: 27-Jan-2007 Intent Kathie A Nuclear Stress Test/Stress On: 27-Jan-2007 Intent SPECT/TreadmillBy: Fast DO, Kathie A Echo CompleteBy: Fast DO, Kathie A On: 13-Jan-2007 Intent Cartoid DopplerBy: Fast DO, Kathie A On: 13-Jan-2007 Intent EKG ([id number])By: Fast DO Kathie A On: 13-Jan-2007 Intent Comments: ekg showed normal sinus rhythym, normal axis, no acute st/t wave changes MRI - BrainBy: Fast DO, Kathie A On: 13-Jan-2007 Intent Comments: with mra of brain- due to headache Planned Medications INJECTION, METHYLPREDNISOLONE SODIUM SUCCINATE, UP TO 125 MG Ordered: 22-Feb-2014 Pending Efren Uriarte CNP INJECTION, METHYLPREDNISOLONE SODIUM SUCCINATE, UP TO 125 MG Ordered: 20-Apr-2016 Pending Cari Portillo DO, DO, Kathleen Instructions Name Dates Details [...] test (GTT)) : DISCONTINUED - HGB A1C (33789) Indication: Abnormal glucose tolerance test (Renamed from [...] Hypertension : Patient Instructions Indication: Hypertension Encounters Office Visit On: 12-Mar-2018 8:24 Encounter Reason: [...] has history of allergy, in past saw rib cloth knitter was on allergy shots inpast. Also in [...] [ADDITIONAL REASON] Follow up tests - Date: (9/6/18). Encounter Diagnosis: BMI 40.0-44.9, adult, Nonsmoker, Nutritional [...] with instructions. Current medication use: no End: 02-Apr-2016 16:38 side effects and compliant with dosing regimen. Patient sleeps 7 hours per night. Nutrition: balanced diet and no supplemental vitamins & iron. The medical issues the patient is following up for inc lude All identified problems below, blood sugar issues, [...] the patient is following up for include Al serafin identified problems below, blood sugar issues, high [...] and j ust itches all over. Eye added Neomyc-polym eye ointment for exzema in [...] work on that exercise part - stopped e avapro- as his bp dropped with [...] consider - he will try to see caryn, [ADDITIONAL REASON] Follow up tests - Date: [...] management- said he should go back to [facility]-- he said leg worse than the neck [...] he isnt biking like he was saw benji about his hip she did xray- - [...] would like t tryi ncrease in [facility] for pain- no gerd- and [...] getting lesion taken off with robb in falll-- still breast lump= he saw jaclyn for [...] is off allergy shots-- he is seeing nikki this month and joints doing goodEncounter Diagnosis: [...] still little anemic- rib getting better - joe pineda of rheumatoid right now- - no blood in stool- seeing benji today and his ashthma has been well [...] [facility] thought he had rheumatoid- - he [...] mobic- he is looking at changing cpap becuase has plastic and rib cloth knitter think allergic to that-- color changes in [...] Diagnostic Procedure Results: em End: 20-Apr-2008 22:14 [facility] neg- thinks with cutting back caffeine the [...] bring on the pain- he hasnt seen fabiola-- he has tried muscle relaxers- Encounter Diagnosis: [...] of sexual dysfunction-- cervical disc disease-- saw Gelser for this and needs referral to go back to him for this-- varicose veins-- wants to see Fatemeh for thisEncounter Diagnosis: PARESTHESIA (782.0), Anxiety state, [...] he gets redness- he will call his rib cloth knitter regarding this- he is following with Jacques-- [...] Rhinitis(477.9), Actinic keratosis (702.0), VARICOSE VEINS- [facility] Historical Summary On: 04-Feb-2006 [...] full note dictated [facility]
--- OUTSIDE RECORDS SUMMARY | 2018-05-20 21:54 | XMS RPT_ITS | Continuity of Care Document ---
:1960 Author Organization [facility] Address [address] [place] [address] Phone Care Team Providers Name Role Phone Cari Coles DO Unavailable Andrea Garcia Unavailable Dr. Long Colmenares Unavailable [facility], [facility] Unavailable Dr. Fabio Robb Unavailable Dr. Markel Montes Unavailable Paco Schaffer Unavailable Graham Reyna MD Unavailable Dr. Yariel Palmer Unavailable Ca Valenzuela Unavailable Fredi Perez Unavailable Kitty SINGH, Max Rodriguez Unavailable STACIA Rodriguez Unavailable Unavailable Rebekah Neff Unavailable Unavailable Unavailable Unavailable Problems Name Dates Details Abnormal glucose tolerance test (Renamed from Abnormal glucose tolerance test (GTT)) (R73.09, 790.22) Comments: cutting back to one tab daily as trial to come off with sugar conttrolpt refused chg in meds he will adhere to diet and exercise [...] malignant neoplasms, colon) (Z12.11, V76.51) Status: Active ETD (Eustachian tube dysfunction), bilateral (H69.83, 381.81) Status: Active ETD (Eustachian tube dysfunction), bilateral (H69.83, 381.81) Status: Active Exposure to the flu (Z20.828, V01.79) Status: Active Foot pain, right (M79.671, 729.5) Status: Active Generalized pruritus (L29.9, 698.9) Comments: liver adn kid lab drawn but still pending Status: Active GERD with apnea (K21.9, 530.81) [...] other specified sites (M25.50, 719.48) Status: Active Radiculopathy of leg (724.4) Comments: [...] Active Screening for prostate cancer (Z12.5, V76.44) Comments: last one 01/09 Status: Active Skin lesion (L98.9, 709.9) Status: Active SYMPTOMS INVOLVING SKIN AND OTHER INTEGUMENTARY TISSUE, FLUSHING (782.62) Status: Active Tendonitis, Achilles, right (M76.61, 726.71) Status: Active VARICOSE VEINS- SUPPORT HOSE Status: Active Vitamin D deficiency (E55.9, 268.9) Status: Active Medications Name Dates Details ADVAIR DISKUS, 250-50MCG/DOSE (Inhalation Aerosol Powder Breath Activated) 1 puff Misc bid for 0 days Quantity: 3 {Inhaler} Refills: 3 Ordered:07-Feb-2015 Kathie Sen DO Start : 07-Feb-2015 Active ASPIRIN LOW DOSE, 81MG (Oral Tablet) 1 tab qd for 0 days Refills: 0 Ordered:08-Feb-2009 Vlad Hunter Avapro 150 MG Oral Tablet 1 (one) Tablet Tablet qd for 0 days Quantity: 30 {Tablet} Refills: 3 Ordered:12-Feb-2018 Sharon Coles DO, DO, Kathleen Start : 12-Feb-2018 Active Cymbalta 60 MG Oral Capsule Delayed Release Particles 1 (one) Capsule DR Part q am for 0 days Quantity: 90 {Capsule} Refills: 3 Ordered:03-Jul-2017 Sharon Coles DO, DO, Kathleen Start : 03-Jul-2017 Active Flonase 50 MCG/ACT Nasal Suspension 2 (two) Puff(s) daily for 0 days Quantity: 1 {[place]} Refills: 0 Ordered:09-Oct-2017 Sharon Coles DO, DO, Kathleen Start : 09-Oct-2017 Active FOLIC ACID, 1MG (Oral Tablet) 1 Tablet two times daily for 360 days Quantity: 30 {Tablet} Refills: 0 Ordered:02-Dec-2012 Efren Uriarte CNP Start : 02-Dec-2012 Active HYDROXYZINE HCL, 10MG (Oral Tablet) 1 tab q 8hrs, prn (10 MG) Active PROAIR HFA, 108 (90 Base)MCG/ACT (Inhalation Aerosol Solution) 2 (two) Aerosol Soln Aerosol Soln puffs qid prn for 0 days Quantity: 1 {Inhaler} Refills: 3 Ordered:07-Feb-2015 MichaelaTrista alvesfer Start : 07-Feb-2015 Active Protonix 40 MG Oral Tablet Delayed Release [address] qd for 0 days Quantity: 90 {Tablet} Refills: 3 Ordered:03-Jul-2017 Sharon Coles DO, DO, Kathleen Start : 03-Jul-2017 Active SINGULAIR, 10MG (Oral Tablet) 1 tab daily (10 MG) Active Valium 5 MG Oral Tablet 1/2-1 Tablet Tablet bid prn muscle spasm for 0 days Quantity: 30 {Tablet} Refills: 0 Ordered:28-Mar-2016 Libby Rodriguez LPN Start : 28-Mar-2016 Active Comments:thirty Xyzal 5 MG Oral Tablet 1 Tablet qd for 90 days Quantity: 90 {Tablet} Refills: 3 Ordered:27-Feb-2017 Sharon Coles DO, DO, Kathleen Start : 27-Feb-2017 Active SYEDA, 180MG (Oral Tablet) 1 (one) Tablet [...] days Quantity: 1 {Bottle} Refills: 0 Ordered:27-Feb-2017 Mika BABBN, Kassi L Start : 16-May-2016 End : 27-Feb-2017 Inactive Aveeno Eczema Therapy 1 % External Cream 1 (one) Cream Cream daily for 0 days Quantity: 1 {Bottle} Refills: 0 Ordered:27-Feb-2017 Long 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, Kassi L Start : 16-May-2016 End : 27-Feb-2017 Inactive [...] Start : 03-Jul-2017 End : 06-Nov-2017 Inactive LAMISIL, 250MG (Oral Tablet) 1 (one) [...] Start : 04-May-2011 End : 14-May-2011 Inactive WUUOTNFI-PNQCGAJNA-JSCMGTFS, 0.1% (Ophthalmic Suspension) apply ointment to each eye q hs (0.1 %) Inactive RHINOCORT AQUA, 32MCG/ACT (Nasal Suspension) 1 for 0 days Refills: 0 Ordered:04-May-2011 Naye Crain LPN Start : 29-Dec-2008 End : 04-May-2011 Inactive Tamiflu 75 MG Oral Capsule 1 (one) Capsule daily for 10 days Quantity: 10 {QS} Refills: 0 Ordered:25-Mar-2017 Essence Jimenez Start : 25-Mar-2017 End : 04-Apr-2017 Inactive ULTRACET, 37.5-325MG (Oral Tablet) 2 tabs Tablet qd,prn for 0 days Quantity: 60 {Tablet} Refills: 3 Ordered:23-Mar-2008 Fay Adamson Start : 05-Nov-2005 End : 18-Mar-2006 Inactive ASPIRIN BUFFERED, 325MG (Oral Tablet) 1 (one) [...] {Tablet} Refills: 3 Ordered:09-Nov-2009 Kathie Sen DO Start : 09-Nov-2009 End : 09-Nov-2009 Discontinued HYDROCORTISONE VALERATE, 0.2% (External Cream) 1 Cream apply bid prn for 0 days Quantity: 60 {Cream} Refills: 1 Ordered:07-Jan-2013 Kathie Sen DO Start : 07-Jan-2013 [...] days Quantity: 12 {Tablet} Refills: 0 Ordered:16-May-2016 Myla Person LPN Start : 20-Apr-2016 End : 16-May-2016 Discontinued Comments:with food ZITHROMAX Z-BOWEN, 250MG (Oral Tablet) 1 (one) [...] Result: Comments: See Note; NOTES: [facility] [address] [place] [address] [address] [place] [address] OFFICE VISIT Date of Service: 01/18/18 MR#: [id number] Acct: [id number] Name: WILLA FREITAS Rep # : [id number] : 1960 Provider: STARR Payne Age/Sex: 57/M [place] Status: Signed Intake Vital Signs01/18/18 Body Mass [...] SC Q7D 0 03/29/17 [History Confirmed 01/18/18] [facility] Medical History Diabetes (Acute) Hay fever [...] Cardio Cardiology: Positive for excessive sweating (at [facility] x 2 nights) and other (h/o HTN [...] Endocrine: Positive for exc essive sweating (at [facility] x 2 nights); no fatigue, cold intolerance, flushing, heat intolerance or increased thirst/drinking Aller/Imm Allergy/Immunologic: No wheezing, itchy eyes (arms last 2 days), claude d intolerance, seasonal allergy symptoms or hives Du/Lymp Hematologic/Lymphatic: No easy bruising Exam Const General: cooperative, no acute distress Orientation: alert, oriented x3 HENMT Head: juanita l to inspection, normocephalic Ears: [...] and congestion J06.9 2. Bronchitis J40 Plan mSooth called to Richard Benites DM F/u with [...] Summary (1) Result: Comments: See Note; NOTES: [facility] [address] [place] [address]. [address] [place] [address] Fax REHABILITATION SERVICES DISCHAR GE SUMMARY MR#: [id number] Acct: [id number] Name: WILLA FREITAS Rep #: [id number] : 1960 57 From: Farrukh Mcleod DPT, OCS, CSCS Referring DrLaina: Cari Coles DO Status: REG RCR Insurance: [facility] [place] SELF PAY INSURANCE HP - PT D/C [...] feel free t o call me at [phone]. Thank you for the referral of this patient. Sincerely, Farrukh Mcleod, PATRICK, OC <Electronically signed by Farrukh Mcleod DPT, JULIO, CSCS> 11/01/17 0645 CC: Cari Coles DO EBG Signed 24-Oct-2017 Inital Evaluation (1) - PT Result: Comments: See Note; NOTES: [facility] [address] [facility] [place] [address] Fax REHABILITATION SERVICES INITIAL EVALUATION MR#: [id number] Acct: [id number] Name: WILLA FREITAS Rep #: [id number] : 1960 57 From: Farrukh Mcleod DPT, JULIO, CSCS Referring Dr.: Cari Coles DO Status: REG RCR Insurance: [facility] SELF PAY INSURANCE Patient's Visit Information [...] to be FAXED BACK to us at [phone] for Medicare purposes. Please let me know if there are questions or concerns regarding this plan of care. Physician Signature: Date: <Electronically signed by Farrukh Mcleod DPT, OCS, CSCS> 0932 CC: Cari Coles DO EBG Signed For Medicare only, by signing this I certify the plan of care. Physicians Signature Date 25-Sep-2017 Foot min 3 Views Result: Comments: See Note; NOTES: [facility] Imaging Services [address] [place] [address] Foot min 3 Views MR#: [id number] Acct: [id number] Name: WILLA FREITAS Rep #: [id number] : 1960 M 57 From: Davin Cárdenas MD PCP: Cari Coles DO Status: REG CLI Study: Foot min 3 Views Date of Exam: 09/25/17 Exam# [id number] Ordering Dr: Cari Coles DO STUDY: X-RAY [...] Service support , CC: Cari Coles DO Water And Fire Technician: Signed 25-Sep-2017 Knee 4 or More Views Result: Comments: See Note; NOTES: [facility] Imaging Services [address] [place] [address] Knee 4 or More Views MR#: [id number] Acct: [id number] Name: WILLA FREITAS Rep #: [id number] : 1960 M 57 From: Davin Cárdenas MD PCP: Cari Coles DO Status: REG CLI Study: Knee 4 or More Views Date of Exam: 09/25/17 Exam# [id number] Ordering Dr: Cari Coles DO STUDY: X-RAY [...] Service support , CC: Cari Coles DO Water And Fire Technician: Signed 04-Jun-2017 Foot min 3 Views Result: Comments: See Note; NOTES: [facility] Imaging Services [address] [place] [address] Foot min 3 Views MR#: [id number] Acct: [id number] Name: WILLA FREITAS Rep #: [id number] : 1960 56 From: Anuel Harrison MD PCP: Cari Coles DO Status: REG CLI Study: Foot min 3 Views Date of Exam: 06/04/17 Exam# [id number] Ordering Dr: Ruchi Valenzuela STUDY: X-RAY - [...] Harrison MD at 23:13 EDT Te l [phone], Service support , CC: Cari Coles DO; Ruchi Valenzuela DPM Water And Fire Technician: Signed 04-Jun-2017 Foot min 3 Views Result: Comments: See Note; NOTES: [facility] Imaging Services [address] [place] [address] Foot min 3 Views MR#: [id number] Acct: [id number] Name: WILLA FREITAS Rep #: [id number] : 1960 M 56 From: Anuel Harrison MD PCP: Cari Coles DO Status: REG CLI Study: Foot min 3 Views Date of Exam: 06/04/17 Exam# [id number] Ordering Dr: Ruchi Valenzuela STUDY: X-RAY - [...] EDT , Service support , CC: Cari Coles DO; Ruchi Valenzuela DPM Water And Fire Technician: Signed 29-Mar-2017 Urgent Care Visit Report Result: Comments: See Note; NOTES: [facility] [address] [place] [address] OFFICE VISIT Date of Service: 03/29/17 MR#: [id number] Acct: [id number] Name: ZENAWILLA Rep # : [id number] : 1960 Provider: Antonio CLEMENTS Age/Sex: 56/M Location[place] [facility] Status: Signed Intake Vital Signs03/29/17 Height 5 [...] pattern Exam Const General: cooperative, healthy appearing [facility] Head: normal to inspection Ears: hearing grossly [...] Operative Report Result: Comments: See Note; NOTES: [facility] Medical Records Department [address] [place] [address] Operative Report MR#: [id number] Acct: [id number] Name: WILLA FREITAS Rep #: [id number] : 1960 55 From: Long Colmenares MD PCP: Cari Coles DO Status: DEP [facility] DATE OF SERVICE: PROCEDURE PERFORMED: Esophagogastroduodenoscopy with [...] normal. Scope [facility] withdrawn [facility]. Retroflexion was performed. A view of the [...] Lashonda Bentley C: Cari Coles DO T: NTS JOB: [id number] 05/08/16 1409 <Electronically signed by Long Colmenares MD> Date Long Colmenares MD Cosigner Signature (If Indicated): Date CC: Cari Dolan O; Long Colmenares Date Dictated: 04/26/16830 Date Transcribed: 04/26/16830 Water And Fire Technician: Signed 18-Apr-2016 PT D/C Summary (1) Result: Comments: See Note; NOTES: [facility] [address] [place] [address]. [address] [place], [place] [address] Fax REHABILITATION SERVICES DISCHAR GE SUMMARY MR#: [id number] Acct: [id number] Name: WILLA FREITAS Rep #: [id number] : 1960 55 From: Farrukh Mcleod DPT, OCS, CSCS Referring Dr.: Cari Coles DO Status: REG RCR Insurance: [facility] HP - PT D/C Summary It has [...] please feel free to call me at [phone]. Thank you for the referral of this patient. Sincerely, Farrukh Mcleod, DPT, OC <Electronically sign ed by Farrukh MOLINAT, OCS, CSCS> 04/18/16 0737 CC: Cari Coles DO EBG Signed 30-Mar-2016 Inital Evaluation (1) - PT Result: Comments: See Note; NOTES: [facility] [address] [place] [address] Fax REHABILITATION SERVICES INITIAL EVALUATION MR#: [id number] Acct: [id number] Name: WILLA FREITAS Rep #: [id number] : 1960 55 From: Farrukh Mcleod DPT, OCS, CSCS Referring Dr.: Cari Coles DO Status: REG RCR Insurance: [facility] [employer] Patient's Visit Information ED Cristian FREITAS is a 55 year old M referred to Physical Therapy by Cari Coles with a diagnosis of cervical rediculopathy. Date of Evaluation: Physical Therapist: Farrukh Mcleod, DPT, OC - Visit Plan Frequency: 3x [...] due to neck pain. Uses a Cpap. 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 No SCHERER and no [...] to be FAXED BACK to us at [phone] for Medicare purposes. Please let me know if there are questions or concerns regarding this suki n of care. Physician Signature: Date: <Electronically signed by Farrukh Mcleod DPT, OCS, CSCS> 03/30/16 0653 CC: Cari Coles DO EBG Signed For Medicare only, by signing this I certify the plan of care. Physicians Signature Date 17-Aug-2015 Spirometry (41220) Result: 17-Aug-2015 ELECTROCARDIOGRAM, COMPLETE (ECG) (24385) Comments: sinus jermaine - no acute chg Result: [MEASUREMENTS ANALYSIS] Date of Test: 08/17/2015 10:09:13; Heart Rate: 56; NM Interval: 160; QRS: 108; QT Interval: 380; Corrected QT Interval (QTc): 373; P Wave [place]: 41; QRS Wave [place]: 38; T Wave [place] : 32; Blood Pressure: 132/82 [ECG DIAGNOSTIC STATEMENTS] Date of Test: 08/17/2015 10:09:13; Summary: Sinus Bradycardia -Prominent R(V1) -nonspecific. BORDERLINE 13-Apr-2015 NCS and/or EMG Patient Result: Comments: See Note; NOTES: [facility] Pulmonary Services/Neurology [address] [place] [address] NCS and/or EMG Patient MR#: [id number] Acct: [id number] Name: JOEY MCGRATH,WILLA R Rep #: [id number] : 1960 54 From: Quinn Wells Referring Dr: Kathie Sen DO Status: REG CLI Ordering Dr: Kathie Sen DO Date: 04/13/15 Location: [facility] Sex: M C DATE OF SERVICE: REFERRING [...] for this referral. Quinn Wells MD T: [facility] JOB: [id number] 04/13/15 2257 <Electronically signed by Quinn Wells > Date Quinn Wells CC: Kathie Sen DO; QUINN Dolan ate Dictated: 04/13/15833 Date Transcribed: 04/13/15833 Water And Fire Technician: Signed 12-Feb-2015 Sleep Study Report Result: Comments: See Note; NOTES: [facility] [address] [place] [address] Polysomnography with NCPAP MR#: [id number] Acct: [id number] Name: ZENA WILLA Rep #: [id number] : 1960 54 From: Danis Verdugo MD PCP: Kathie Sen DO Status: REG CLI Ordering DrLaina: Fredi Perez MD Date: 02/09/15 Sex: M C DATE OF SERVICE: 02/09/2015 [facility] RULES: Respiratory events were acquired and scored in accordance with the Recommended Standards and Specifications as outlined in the AASM Manual for the Scoring of Sleep and Associated Events ( recent version). Please note that a reference to [facility] AHI in this report is consistent with the current Hypopnea definition according to Medicare Criteria and an AAS AHI reference is consistent with the current Hypopnea definition according to the AASM criteria and is recognized by [facility] as the RDI. PROCEDURE: The study was attended continuously by a remote sensing technician. Monitored parameters includ ed left and [...] body mass index of 45.8 and an Sidell sleepiness scale score of 0. The patient [...] and Easy-Breathe on. Danis merida MD T: [facility] JOB: [id number] CC: Danis Verdugo MD 02 15002/12/15 1012 <Electronically signed by Danis Verdugo MD> Date Danis Verdugo MD Co-signature (if applicable) Date Signed -Dec-2014 Carotid Duplex Ultrasound Result: Comments: See Note; NOTES: [facility] Cardiovascular Services [address] [place] [address] Carotid Duplex Ultrasound 01/05/15 1537 MR#: [id number] Acct: [id number] Name: WILLA FREITAS Rep #: [id number] : 1960 54 From: Seven Allison MD Attending Dr: Kathie Sen DO Status: REG CLI Ordering Dr: Kathie Sen DO Date: 01/05/15 Location: [facility] Sex: M C Admi tted: Rt. Velocities/BP [...] the left vertebral artery. Procedure Carotid Duplex 20402. Exam per formed in department. Interpretation Summary Mild (<50%) stenosis right extracranial internal carotid. Mild (<50%) stenosis left extracranial internal carotid. Flow within the verte bral arteries is antegrade bilaterally. Ordering Physician: Kathie Sen Referring Physician: Kathie Winter D.O. Performed By: Shari Salinas 01/12/15 0803 Date Seven Allison MD CC: Kathie Sen DO Date Dictated: 01/05/15 1537 Date Transcribed: 01/12/15802 Water And Fire Technician: Signed 20-Oct-2014 Shoulder min 2 Views Result: Comments: See Note; NOTES: [facility] Imaging Services [address] [place] [address] Radiology Report MR#: [id number] Acct: [id number] Name: ZENA R Rep #: [id number] : 1960 M 54 From: Chaim Bergeron MD PCP: Kathie Sen DO Status: REG CLI Study: Shoulder min 2 Views Date of Exam: 10/20/14 Exam# [id number] Ordering Dr: Anthony Teran DO STUDY: X-RAY [...] MD, FACR at 20:20 EDT T el [phone], Service support [phone], 0045 RAD/Shoulder min 2 Views IMPRESSION: Mild arthrosis of the acromioclavicular joint Electronically Signed: Marcos Bergeron MD, FACR at 20:20 EDT , Service support [phone], CC: Kathie Sen DO; Anthony Teran Water And Fire Technician: Signed 05-Jul-2014 Emergency Department Summary Result: Comments: See Note; NOTES: [facility] Medical Records Department [address] [place] [address] Emergency Department Summary 07/05/14 1141 MR#: [id number] Acct: [id number] Name: WILLA FREITAS R Rep #: [id number] : 1960 53 From: Arsh Macias MD [...] o verlying bowel gas. Electronically Signed: Ankit DO Lisandro at 12:53 EDT , Service support [phone], 07/05/14 11:49 Gallbladder [US] Stat La boratory [...] % Lymph % (Auto) 31.6 (19-41) % [place] % (Auto) 7.4 (0-10) % Eos % [...] 7.0 (5.0 - 8 .0) Ur Specific [place] 1.010 (1.002-1.030) Urine Protein Negative (Negative) mg/dl [...] Unknown Cause, (Male) Prescriptions: Hydrocodone Bitart/Apap 5-325 [[place] 5/325] 1 - 2 tablet PO Q4H PRN PRN #12 tablet PRN Reason: Pain Omeprazole [Prilosec] 20 mg PO DAILY #30 capsule Referrals: Kathie Sen DO [Primary Care Provider] - 3-5 Days What to do if you have Problems For any increased pain, shortness of breath, bleeding, nausea or vomiting, chest pa in, or any unexpected problems, contact your doctor. Call [facility] ([phone]) or report to the closest Emergency Room. Call 911 if necessary. 07/05/14 1502 <Electronically sig roscoe by Arsh Macias MD> Date Arsh Macias MD Cosigner Signature (If Indicated): Date CC: Kathie Sen DO 05-Jul-2014 Gallbladder Result: Comments: See Note; NOTES: [facility] Imaging Services [address] [place] [address] Ultrasound Report MR#: [id number] Acct: [id number] Name: WILLA FREITAS R Rep #: [id number] : 1960 M 53 From: Ja Saenz DO PCP: Kathie Sen DO Status: REG ER Study: Gallbladder Date of Exam: 07/05/14 Exam# [id number] Ordering Dr: Arsh Macias MD STUDY: ULTRASOUND GAL LBLADD REASON FOR VISIT: Male, 53 years old. [...] at 12:53 EDT , Servic e support [phone], CC: ARSH MACIAS MD; Kathie Sen DO Water And Fire Technician: Signed 20-Jan-2014 Shoulder min 2 Views Result: Comments: See Note; NOTES: [facility] Imaging Services [address] [place] [address] Radiology Report MR#: [id number] Acct: [id number] Name: WILLA FREITAS Rep #: [id number] : 1960 M 53 From: Arsh Mi MD PCP: Kathie Sen DO Status: REG CLI Study: Shoulder min 2 Views Date of Exam: 01/20/14 Exam# [id number] Ordering Dr: Kathie Sen DO STUDY: X-RAY [...] MD at 17:11 EST , Service support [phone], RAD/Shoulder min 2 Views IMPRESSION: No fracture. Joint spaces are well-preserved. Electronically Signed: Arsh Mi MD at 17:11 EST Tel , Service support [phone], CC: Kathie Sen DO Water And Fire Technician: Signed 23-Sep-2013 NCS and/or EMG Patient Result: Comments: See Note; NOTES: [facility] Pulmonary Services/Neurology [address] [place] [address] NCS and/or EMG Patient MR#: [id number] Acct: [id number] Name: WILLA FREITAS Rep #: [id number] : 1960 53 From: Atif Samuels MD Referring Dr: Kathie Sen DO Status: REG CLI Ordering Dr: Kathie Sen DO Date: 09/16/13 Location: [facility] Sex: M C The patient presents for [...] Dictated: 09/16/13 1138 Date Transcribed: 09/16/13 1244 Water And Fire Technician: NIESHA Signed 15-May-2013 Spine Cervical (Routine) Result: Comments: See Note; NOTES: [facility] Imaging Services [address] [place] [address] MRI Report MR#: [id number] Acct: [id number] Name: WILLA FREITAS Rep #: [id number] : 1960 M 52 From: Chaim Bergeron MD PCP: Kathie Sen DO Status: REG CLI Study: Spine Cervical (Routine) Date of Exam: 05/15/13 Exam# [id number] Ordering Dr: Kathie Sen DO STUDY: MRI [...] M.D. at 9:11 EDT , Service support [phone], CC: Kathie Sen DO Water And Fire Technician: Signed 15-May-2013 Spine Lumbar (Routine) Result: Comments: See Note; NOTES: [facility] Imaging Services [address] [place] [address] MRI Report MR#: [id number] Acct: [id number] Name: WILLA FREITAS Rep #: [id number] : 1960 52 From: Chaim Bergeron MD PCP: Kathie Sen DO Status: REG CLI Study: Spine Lumbar (Routine) Date of Exam: 05/15/13 Exam# [id number] Ordering Dr: Kathie Sen DO STUDY: MRI [...] M.D. at 9:14 EDT , Service support [phone], CC: Kathie Sen DO Water And Fire Technician: Signed 11-Feb-2013 PT Discharge Summary Result: Comments: See Note; NOTES: [facility] Physical Therapy [facility] [place] [address] Fax REHABILITATION SERVICES DISCHARGE SUMMARY MR#: [id number] Acct: [id number] Name: WILLA FREITAS Rep #: [id number] : 1960 52 From: Shannen Anne Referring DrLaina: Kathie Sen DO Status: REG RCR Eval [...] he did have a fall on the mu-ism steps last night and is a little [...] C: Kathie Sen DO T: [facility]TS JOB: [id number] <Electronically signed by Shannen Anne > 02/11/13 0952 CC: * Signed 14-Jan-2013 Inital Evaluation - PT Result: Comments: See Note; NOTES: [facility] [address] [place] [address]. [address] [place] [address] Fax REHABILITATION SERVICES INITIAL EVALUATION MR#: [id number] Acct: [id number] Name: WILLA FREITAS Rep #: [id number] : 1960 52 From: Shannen Anne Referring DrLaina: Kathie Sen DO Status: REG RCR Insurance: [employer] Eval Date: DATE OF SERVICE: 01/12/2013 SUBJECTIVE: [...] He has 3 jobs. 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 He reports that life in crease [...] his complaint of left shoulder pain. Bilateral gold reclaimer strength equals 90 pounds. Bilateral upper extremity [...] extremity. Shannen Anne, PT T: [facility] JOB: [id number] <Electronically signed by Shannen Anne > 01/14/13 [...] smoker Vital Signs Date Test Result Details :11 Pulse 88 /min Comments: Pattern: Regular [...] kg/m2 Body Surface Area Calculated 2.25 m2 [id number]-Sbz-136525:59 Pulse 76 /min Comments: Pattern: Regular Respiration [...] kg/m2 Body Surface Area Calculated 2.27 m2 [id number]-Mjs-095051:39 Pulse 77 /min Comments: Pattern: Regular Respiration [...] kg/m2 Body Surface Area Calculated 2.27 m2 61-Pne-630877:35 Temperature 97.6 f Pulse 88 /min Comments: [...] 0.00 cm Results Date Description Value Details :35 Hemoglobin A1c Comments: [facility] [address] [place], [address] HGB A1C 5.7 % (Normal) Range: 4.2-6.3 44-Ahg-517387:49 CBC W/Diff, Automated Comments: [facility] [address] [place], [address] Absolute Lymph 1.45 {X10_3/ul} (Normal) Range: 0.83-4.51 [...] 4.6-6.2 WBC 7.7 K/mm3 (Normal) Range: 4.4-11.0 83-Unj-148521:49 Comprehensive Metabolic Profil Comments: [facility] [address] [place], [place], [phone] GAP 6 (Normal) Range: 5-15 CO2 28.0 [...] A.D.A. criteria.Please note revised GLUCOSE reference range bmpckrofb29/02/2018. 29-Jun-20178:37 CBC W/Diff, Automated Comments: [facility] [address]xf[address]or[address] [place], [address] Absolute Lymph 1.73 {X10_3/ul} (Normal) Range: 0.83-4.51 [...] 4.4-11.0 29-Jun-20178:37 Comprehensive Metabolic Profil Comments: TOM MACDONALD CBCD,[facility] Oqhxnsnwct84[address] [place], [place], [phone] GAP 4 (Abnormal) Range: 5-15 CO2 29.0 [...] Comments: Please note revised GLUCOSE reference range tkuizmddw31/02/2018. 29-Jun-20178:37 Hemoglobin A1c Comments: [facility] [address] [place], [place], [address] HGB A1C 6.0 % (Normal) Range: 4.2-6.3 :37 Lipid Profile Comments: TOM QUAN GETS CBCD,[facility] [address]rkhqmsv[address] [place], [place], [address] VLDL 9 mg/dL (Normal) Range: 5-40 LDL [...] High Risk 29-Jun-20178:37 Microalb:Creat Ratio,Random UR Comments: [facility] [address] [place], [place], [phone] MALB:CREAT 4.1 {mg/g_CRE} (Normal) MICROALBUMIN,UR 10.9 mg/L (Normal) UR CREAT 264.00 mg/dL (Normal) 29-Jun-20178:37 Thyroid Stim Hormone (TSH) Comments: TOM AVELINA GETS CBCD,[facility] [address] [place], [address] TSH 0.84 {uIU/mL} (Normal) Range: 0.358-3.74 :37 Urinalysis, Complete Comments: How was Urine Obtained? [facility] [address]ffwo[address] [place], [address] MUCUS, URINE 0 SEEN {/hpf} (Normal) [...] (Normal) CLARITY Clear (Normal) COLOR Yellow (Normal) :37 Vitamin D,25 Hydroxy Comments: [facility] [address]nt[address] [place], [address] Vitamin D 25-OH 38.9 ng/mL (Normal) Range: 29.95-100.01 Comments: Vitamin D 25(OH) Status Range Deficiency <20 ng/mL (50nmol/L) Insuffciency 20 - 30 ng/mL (50 - 75 nmol/L) Sufficiency 30 - 100 ng/mL (75 - 250 nmol/L) Toxicity >100 ng/mL (>250 nmol/L) 79-Dxh-472059:02 CBC W/Diff, Automated Comments: [facility] [address] [place], [address] Absolute Lymph 1.71 {X10_3/ul} (Normal) Range: [...] 4.6-6.2 WBC 6.8 K/mm3 (Normal) Range: 4.4-11.0 00-Phh-086814:02 Comprehensive Metabolic Profil Comments: [facility] [address]sp[address] [place], [address] GAP 7 (Normal) Range: 5-15 CO2 30.0 mmol/L (Normal) Range: 21.0-32.0 CL 103 mmol/L (Normal) Range: 98-107 K 3.8 mmol/L (Normal) Range: 3.5-5.1 NA 140 mmol/L (Normal) Range: 136-145 T BILI 0.50 mg/dL (Normal) Range: 0.20-1.00 ALT 49 U/L (Normal) Range: 16-61 Comments: Please note revised ALT reference range yswvusjxu43/28/2018. ALK P 68 U/L (Normal) Range: 45-117 [...] Comments: Please note revised GLUCOSE reference range axjtithre26/02/2018. 89-Fhi-609254:01 Hemoglobin A1c Comments: [facility] Tcezfzklbz1750 [facility] [address] [place], [place], [address] HGB A1C 5.8 % (Normal) Range: 4.2-6.3 :12 CBC W/Diff, Automated Comments: [facility] [address] [place], [place], [address] Absolute Lymph 1.51 {X10_3/ul} (Normal) Range: 0.83-4.51 [...] 4.6-6.2 WBC 5.2 K/mm3 (Normal) Range: 4.4-11.0 01-Yco-21613:12 Comprehensive Metabolic Profil Comments: [facility] [address]jue[address]zkc[address] [place], [address] GAP 6 (Normal) Range: 5-15 CO2 30.0 [...] 7-18 GLU 96 mg/dL (Normal) Range: 70-110 69-Tla-203611:11 Pathology Report Comments: PERFORMED BY: ReacciónCYT [facility] [place] Cyto Gudyn13032 [facility] [id number] BY: [facility] Dermatopathology Opiugjq[address] [id number] Information: [id number] See MATER Comments: Material submitted: .RIGHT LOWER [...] CASSETTE(S) A./LMSLMS/LMSPatho logist provided ICD-10:L82.1, L44.9, I87.9CPT .780402 2-Hnn-967823:42 CBC W/Diff, Automated Comments: DR SANTOS ORDERED CMP CBCDDR SANKET ORDERED A1C LIPID CMP LOREN CBCD TSH [facility] Gwveadzqcs0768 [facility] [address]. [place], [place], [address] Absolute Lymph 2.23 {X10_3/ul} (Normal) Range: 0.83-4.51 [...] 4.6-6.2 WBC 7.4 K/mm3 (Normal) Range: 4.4-11.0 7-Xlo-081120:42 Comprehensive Metabolic Profil Comments: DR SANTOS ORDERED CMP CBCDDR SANKET ORDERED A1C LIPID CMP LOREN CBCD TSH [facility] Dbnbroopym[address] [place], [place], [address] GAP 9 (Normal) Range: 5-15 CO2 26.0 [...] 7-18 GLU 93 mg/dL (Normal) Range: 70-110 4-Nkp-095316:42 Hemoglobin A1c Comments: DR SANTOS ORDERED CMP CBCDDCristian COLES ORDERED A1C LIPID CMP LOREN CBCD [facility] [address] [place], [address] HGB A1C 6.0 % (Normal) Range: 4.2-6.3 7-Nge-178282:42 Lipid Profile Comments: DR SANTOS ORDERED CMP CBCDDR SANKET ORDERED A1C LIPID CMP LOREN CBCD TSH [facility] Ux[address]odbqk39[address] [place], [address] VLDL 14 mg/dL (Normal) Range: [...] 200-240 mg/dL Borderline >240 mg/dL High Risk 9-Jeu-589513:42 Microalb:Creat Ratio,Random UR Comments: DR SANTOS ORDERED CMP CBCDDR SANKET ORDERED A1C LIPID CMP LOREN CBCD TSH [facility] [address]cpqlp[address] [place], [address] MALB:CREAT Test not performed {mg/g_CRE} (Normal) MICROALBUMIN,UR < 5.0 mg/L (Normal) UR CREAT 17.60 mg/dL (Normal) 8-Ncc-334613:42 Thyroid Stim Hormone (TSH) Comments: DR SANTOS ORDERED CMP CBCDDR SANKET ORDERED A1C LIPID CMP OLREN CBCD TSH [facility] Dugqrdrxed0356 [place], [address] TSH 1.18 {uIU/mL} (Normal) Range: 0.358-3.74 2-Eaa-809828:42 Urinalysis, Complete Comments: DR SANTOS ORDERED CMP CBCDDR SANKET ORDERED A1C LIPID CMP LOREN CBCD TSH UACHow was Urine Obtained? [facility] [address]zycgg[address] [place], [address] MUCUS, URINE 0 SEEN {/hpf} [...] (Normal) CLARITY Clear (Normal) COLOR Yellow (Normal) 01-Aug-20168:26 CBC W/Diff, Automated Comments: [facility] Tjljwkvegl3120 [place], [address] Absolute Lymph 1.18 {X10_3/ul} (Normal) Range: 0.83-4.51 [...] 4.6-6.2 WBC 5.3 K/mm3 (Normal) Range: 4.4-11.0 01-Aug-20168:26 Comprehensive Metabolic Profil Comments: [facility] [address]atk[address] [place], [place], [address] GAP 6 (Normal) Range: 5-15 CO2 31.0 [...] (Normal) Range: 70-110 :26 Hemoglobin A1c Comments: [facility] [address]ps[address] [place], [address] HGB A1C 6.1 % (Normal) Range: 4.2-6.3 :26 Lipid Profile Comments: [facility] [address] [place], [place], [address] VLDL 12 mg/dL (Normal) Range: 5-40 LDL [...] High Risk :26 Microalb:Creat Ratio,Random UR Comments: [facility] [address] [place], [place], [address] MALB:CREAT Test not performed {mg/g_CRE} (Normal) MICROALBUMIN,UR < 5.0 mg/L (Normal) UR CREAT 76.30 mg/dL (Normal) :26 Thyroid Stim Hormone (TSH) Comments: [facility] [address] [place], [address] TSH 1.08 {uIU/mL} (Normal) Range: 0.358-3.74 :26 Urinalysis, Complete Comments: How was Urine Obtained? CLEAN [facility] Zpwwzhsudp9544 [facility] [place], [place], [phone] MUCUS, URINE 0 SEEN {/hpf} (Normal) BACTERIA [...] Yellow (Normal) :26 Vitamin D,25 Hydroxy Comments: [facility] [address] [place] [address], [phone] Vitamin D 25-OH 44.6 ng/mL (Normal) Comments: Vitamin D 25(OH) Status Range Deficiency <20 ng/mL (50nmol/L) Insuffciency 20 - 30 ng/mL (50 - 75 nmol/L) Sufficiency 30 - 100 ng/mL (75 - 250 nmol/L) Toxicity >100 ng/mL (>250 nmol/L) 86-Lbt-808167:32 CBC W/Diff, Automated Comments: [facility] [address] [place], [place], [address] Absolute Lymph 1.73 {X10_3/ul} (Normal) Range: 0.83-4.51 [...] 4.6-6.2 WBC 7.3 K/mm3 (Normal) Range: 4.4-11.0 17-Cew-660131:32 Comprehensive Metabolic Profil Comments: [facility] [address] [place], [place], [address] GAP 6 (Normal) Range: 5-15 CO2 30.0 [...] : Gastric Biopsy See Note (Normal) Comments: [facility] [address]wo[address] [place], [address] 00 Comments: Patient: WILLA FREITAS : 1960 (55/M) Acct Num: [id number] Phys: Long Colmenares Unit Num: [id number] Loc: EN Specimen: [id number] Received: 04/26/16847 Spec Type: Gastric B x TISSUES TISSUES: COMMENT The results of immunohistochemistry for Helicobacter pylori will be reported separately ([id number]). GROSS DESCRIPTION Received is one container labele d with the patient's name and designated antrumbody biopsy. The specimen consists of multiple irregular fragments of light andrade soft tissue that in aggregate measure 0.5 x 0.3 x 0.1 cm. The specimen is totally submitted in one cassette. / TUYET:xochitl 04/26/16 TC:3 CPT: 81553 HEADER OPERATION: EGD PRE-OP DIAGNOSIS: Epigastric pain [...] file> : IMMUNOHISTOCHEMISTRY See Note (Normal) Comments: [facility] Lrroqrzltp2594OLVIN Chavez, [phone] 00 Comments: Patient: WILLA FREITAS : 1960 (55/M) Acct Num: [id number] Phys: Long Colmenares Unit Num: [id number] Loc: EN Specimen: [id number] Received: 04/27/161001 Spec Type: IMMUNO TISSUES TISSUES: SPECIMEN INFORMATION: Tissue Source: Antrum body biopsy Clinical Info: Epigastric pain Specimen Number: [id number] CPT code: 27968 METHODOLOGY: Deparaffiniz ed sections of prefer/formalin-fixed tissue [...] developed and their performance characteristics determined by [facility]. They may not have been cleared or a pproved by the U.S. Food and Drug Administration. The FDA has determined that such clearance or approval is not necessary. INTERPRETATION: Antrum body biopsy: Negative for Helicobacter pylori or ganisms. SJ:xochitl 04/30/16 PHYSICIAN AND INSTITUTION [address] [address] Signed Cyangelo Rdz 04/30/16 <signature on file> 13-Qpn-972055:27 Hemoglobin A1c Comments: [facility] Uidncoybmg6275OLVIN Rea, [phone] HGB A1C 5.8 % (Normal) Range: 4.2-6.3 :58 CBC W/Diff, Automated Comments: [facility] Abcncljwrk3776OLVIN Rea, [address] Absolute Lymph 1.42 {X10_3/ul} (Normal) Range: 0.83-4.51 [...] 4.6-6.2 WBC 6.0 K/mm3 (Normal) Range: 4.4-11.0 17-Bow-14520:58 Comprehensive Metabolic Profil Comments: [facility] [address]uc[address] [place], [place], [address] GAP 6 (Normal) Range: 5-15 CO2 30.0 [...] 7-18 GLU 99 mg/dL (Normal) Range: 70-110 85-Fig-135519:00 Hemoglobin A1c Comments: [facility] Nitjayktik6073 [place], [address] HGB A1C 5.9 % (Normal) Range: 4.2-6.3 45-Vvm-939008:02 CBC W/Diff, Automated Comments: DR SANTOS ORDERED CMP CBCDDR SANKET ORDERED LIPID TSH [facility]CD [facility] Wdnkbnlxhx5187 [place], [place], [address] Absolute Lymph 1.32 {X10_3/ul} (Normal) Range: 0.83-4.51 [...] 4.6-6.2 WBC 7.8 K/mm3 (Normal) Range: 4.4-11.0 26-Mum-437568:02 Comprehensive Metabolic Profil Comments: DR SANTOS ORDERED CMP CBCDDR SANKET ORDERED LIPID TSH CBCD CMP [facility] Wpzriziwfs4459 [place], [place], [address] GAP 6 (Normal) Range: 5-15 CO2 28.0 [...] 7-18 GLU 93 mg/dL (Normal) Range: 70-110 :02 Lipid Profile Comments: DR SANTOS ORDERED [facility] CBCDDR SANKET ORDERED LIPID TSH CBCD [facility] Fkxlqgobfy0076 [place], [place], [address] VLDL 11 mg/dL (Normal) Range: 5-40 LDL [...] 200-240 mg/dL Borderline >240 mg/dL High Risk 00-Huj-628750:02 Thyroid Stim Hormone (TSH) Comments: DR SANTOS ORDERED [facility] CBCJANNETTE COLES ORDERED LIPID TSH CBCD [facility] Bzifqfyjxp5458 [place], [place], [address] TSH 0.80 {uIU/mL} (Normal) Range: 0.358-3.74 37-Mao-310106:02 Vitamin D,25 Hydroxy Comments: DR SANTOS ORDERED CMP CBCDDR SANKET ORDERED LIPID TSH CBCD [facility] Ubecsvgpeq8957 [place], [address] Vitamin D 25-OH 50.7 ng/mL (Normal) Comments: Vitamin D 25(OH) Status Range Deficiency <20 ng/mL (50nmol/L) Insuffciency 20 - 30 ng/mL (50 - 75 nmol/L) Sufficiency 30 - 100 ng/mL (75 - 250 nmol/L) Toxicity >100 ng/mL (>250 nmol/L) :30 Hemoglobin A1c Comments: [facility] [address]xtagt[address] [place], [address] HGB A1C 5.7 % (Normal) Range: 4.2-6.3 :30 Lipid Profile Comments: [facility] [address] [place], [address] VLDL 10 mg/dL (Normal) Range: 5-40 [...] High Risk :30 Microalb:Creat Ratio,Random UR Comments: [facility] Zsxfttjuhb8684 [place], [address] MALB:CREAT 3.7 {mg/g_CRE} (Normal) MICROALBUMIN,UR 6.1 mg/L (Normal) UR CREAT 163.00 mg/dL (Normal) :30 Thyroid Stim Hormone (TSH) Comments: [facility] [address]zodzsbch[address] [place], [address] TSH 1.14 {uIU/mL} (Normal) Range: 0.358-3.74 :30 Urinalysis, Complete Comments: How was Urine Obtained? CLEAN [facility] Uafyovkwmv[address] [place], [address] MUCUS, URINE RARE {/hpf} (Normal) BACTERIA [...] Yellow (Normal) :30 Vitamin D,25 Hydroxy Comments: [facility] Lkorlnswhr3317 [address] [place], [address] Vitamin D 25-OH 46.5 ng/mL (Normal) Comments: Vitamin D 25(OH) Status Range Deficiency <20 ng/mL (50nmol/L) Insuffciency 20 - 30 ng/mL (50 - 75 nmol/L) Sufficiency 30 - 100 ng/mL (75 - 250 nmol/L) Toxicity >100 ng/mL (>250 nmol/L) 11-Qhb-516778:29 CBC W/Diff, Automated Comments: [facility] Uwlrkxdiqa7107 [address] [place], [address] Absolute Lymph 1.74 {X10_3/ul} (Normal) Range: 0.83-4.51 [...] 4.6-6.2 WBC 6.5 K/mm3 (Normal) Range: 4.4-11.0 96-Mom-611958:29 Comprehensive Metabolic Profil Comments: [facility] Qpyyeonvis9220 [address] [place], [place], [address] GAP 4 (Abnormal) Range: 5-15 CO2 31.0 [...] <126 mg/dLsuggests IMPAIRED HOMEOSTASIS per A.D.A. criteria. 18-Wyu-706230:01 CBC W/Diff, Automated Comments: [facility] Wzldkmgjzw0223 [facility] [place], [place], [phone] ; ordered by Max Absolute Lymph 1.83 [...] 4.6-6.2 WBC 5.7 K/mm3 (Normal) Range: 4.4-11.0 72-Kaq-093363:01 Comprehensive Metabolic Profil Comments: [facility] [address]wdbfjubl[address] [place], [address] GAP 5 (Normal) Range: 5-15 CO2 30.0 [...] 7-18 GLU 87 mg/dL (Normal) Range: 70-110 6-Agz-420477:24 Alanine Aminotransferas (SGPT) Comments: [facility] [address] [place], [address] ALT 33 U/L (Normal) Range: 12-78 8-Ars-011961:24 Albumin, Serum Comments: [place] [address] [place], [address] ALB 3.6 g/dL (Normal) Range: 3.4-5.0 8-Gjb-732843:24 Alkaline Phosphatase Comments: [place] [address] [place], [phone] ALK P 71 U/L (Normal) Range: 50-136 4-Dgx-738299:24 AST(SGOT) Comments: [address] [place], [phone] AST 26 U/L (Normal) Range: 15-37 Comments: Slight Hemolysis, Result may be falsely increased. 9-Rtk-804128:24 Bilirubin, Total Comments: [place] [address] [place], [address] T BILI 0.20 mg/dL (Normal) Range: 0.20-1.00 1-Dvv-542550:24 BUN 17 mg/dL (Normal) Comments: [facility] [address] [place], [address] Range: 7-18 6-Ftw-440910:24 Calcium,Total Comments: [address] [place], [address] CA 8.3 mg/dL (Abnormal) Range: 8.5-10.1 3-Kij-347071:24 CBC W/Diff, Automated Comments: [address] [place], [address] Absolute Lymph 1.86 {X10_3/ul} (Normal) Range: [...] 4.6-6.2 WBC 5.9 K/mm3 (Normal) Range: 4.4-11.0 4-Bhk-795265:24 Glucose Comments: [facility] Brhypdkyzh2986 [place], [address] GLU 99 mg/dL (Normal) Range: 70-110 2-Ccu-340304:24 Hepatitis C Antibodies Comments: [facility] (refer to report for specific site)refer to report for address and phone number; ordered by [facility] HEP C AB <0.1 {s/co_ratio} (Normal) Range: 0.0-0.9 Comments: Negative: < 0.8 Indeterminate: 0.8 - 0.9 Positive: > 0.9 In order to reduce the incidence of a false positive result, the CDC recommends that all s/co ratios between 1.0 and 10.9 be confirmed by a more specific supplemental or PCR testing. [facility] offers HCV Ab w/Reflex to Verification test #[id number]. :24 Lyme AB/Total Immuno Comments: [facility] (refer to report for specific site)refer to report for address and phone number LYME Comments: TEST RESULT LIMITSLyme, Total Ab Test/ReflexLyme IgG/IgM Ab <0.91 ISR 0.00 - 0.90 Negative <0.91 AB (Normal) Equivocal 0.91 - 1.09 Positive >1.09 TESTING PERFORMED AT [facility]. [place] [address] RIGINAL REPORT ON FILE IN LAB CONTAINS ADDITIONAL TEST SITE INFORMATION. :24 Protein Electroph, S Comments: [facility] (refer to report for specific site)refer to report for address and phone number NOTE: Comment (Normal) Comments: The SPE pattern appears essentially unremarkable. Evidenceof monoclonal protein is not apparent. INTERPRETATION Comment (Normal) Comments: Protein electrophoresis scan will follow via computer,mail, or oil burner delivery. A/G RATIO 1.5 (Normal) Range: 0.7-2.0 GLOBULIN, TOTAL 2.6 g/dL (Normal) Range: 2.0-4.5 M-SPIKE (Normal) Comments: Not Observed GAMMA GLOBULIN 0.8 g/dL (Normal) Range: 0.5-1.6 BETA GLOBULIN 1.0 g/dL (Normal) Range: 0.6-1.3 ALPHA-2 GLOBUL 0.6 g/dL (Normal) Range: 0.4-1.2 ALPHA-1 GLOBUL 0.2 g/dL (Normal) Range: 0.1-0.4 ALBUMIN 3.9 g/dL (Normal) Range: 3.2-5.6 PROTEIN,TOTAL 6.5 g/dL (Normal) Range: 6.0-8.5 :24 Protein, Total Comments: [facility] Gibfdmdbay[address] [place], [phone](209) A/G 1.1 {RATIO} (Normal) Range: 0.9-2.4 GLOB 3.3 g/dL (Normal) Range: 2.3-3.5 T PROT 6.9 g/dL (Normal) Range: 6.4-8.2 :24 Serum Creatinine AND GFR Comments: [facility] Wnvnpjnjkf37[address] [place], [phone](680) EST GFR - AA 96 mL/min (Normal) Comments: GFR Calc EST GFR 79 mL/min (Normal) Comments: Non- GFR Calc CREAT,SERUM 1.03 mg/dL (Normal) Range: 0.70-1.30 Comments: The validity of the calculated GFR AND GFRAA in patients over70 years has not been determined. Clinical correlation isessential. :24 Thyroid Stim Hormone (TSH) Comments: [facility] Afbdlkwigo0237 [address] [place], [phone](445) TSH 1.34 {uIU/mL} (Normal) Range: 0.358-3.74 :24 Uric Acid Comments: [facility] Tgotteazqe7[address] [place], [phone] URIC 4.7 mg/dL (Normal) Range: 3.5-7.2 :19 CBC W/Diff, Automated Comments: [facility] Barbusgvhd6918 [address] [place], [phone](569) Absolute Lymph 1.45 {X10_3/ul} (Normal) Range: 0.83-4.51 [...] 4.6-6.2 WBC 4.5 K/mm3 (Normal) Range: 4.4-11.0 46-Qrm-86859:19 Comprehensive Metabolic Comments: ORDERED PSA,CMP,CBCD,UACDR.TOM ORDERED CBCD,[facility] Wywcstjmiz6414 [place], [place], [phone] Profil GAP 6 (Normal) Range: 5-15 CO2 [...] :19 PSA,Total - Annual Screen Comments: ORDERED PSA,CMP,CBCD,UACDROLNNIE ORDERED CBCD,[facility]MPC[facility] Ofbjuavzuy7670 [place], [address] PSA,TOT SCREEN 0.55 ng/mL (Normal) Range: 0.00-4.00 Comments: This test was performed using the TPSA assay method for the[employer] chemistry system. Values obtained with differentassay methods cannot be used interchangably.When changing PSA assays in the course of monitoring apatient, additional sequential testing should be carriedout to confirm baseline values. :19 Urinalysis, Complete Comments: How was Urine Obtained? [facility] Kzeabmfpyt5370 [place], [address] MUCUS, URINE 1+ {/hpf} (Normal) [...] (Normal) CLARITY Clear (Normal) COLOR Yellow (Normal) 52-Qov-985636:42 CBC W/Diff, Automated Comments: Test performed at:[facility] Mzhoxkiesi7154 [address] [place], [place] [address] Absolute Lymph 1.96 {X10_3/ul} (Normal) Range: 0.83-4.51 [...] 4.6-6.2 WBC 6.0 K/mm3 (Normal) Range: 4.4-11.0 20-Jky-930932:42 Comprehensive Metabolic Profil Comments: Test performed at:[facility] Juqtlciarx6544 [facility] [address]. [place], [place] [address] ; handled by edmund GAP 4 (Abnormal) [...] Comments: Please note revised CREATININE reference range cuushwgdj26/22/2015. BUN 19 mg/dL (Abnormal) Range: 7-18 GLU 93 mg/dL (Normal) Range: 70-110 11-Mzq-826452:13 Liver Profile Comments: Test performed at:[facility] Zidnoalbmh77[address] [place], [place] [phone] ; ordered by Dr. Milagros Dolan BILI 0.11 mg/dL (Normal) Range: 0.00-0.30 T BILI 0.30 mg/dL (Normal) Range: 0.00-4.00 ALT 34 U/L (Normal) Range: 12-78 ALK P 63 U/L (Normal) Range: 50-136 AST 27 U/L (Normal) Range: 15-37 GLOB 3.1 g/dL (Normal) Range: 2.7-4.2 ALB 3.8 g/dL (Normal) Range: 3.4-5.0 T PROT 6.9 g/dL (Normal) Range: 6.4-8.2 22-Epx-732892:30 CBC W/Diff, Automated Comments: Test performed at:[facility] Gnrdlsdzdd4454 [place] [address] Absolute Lymph 2.16 {X10_3/ul} (Normal) Range: 0.83-4.51 [...] 4.6-6.2 WBC 6.2 K/mm3 (Normal) Range: 4.4-11.0 74-Xmz-391432:30 Comprehensive Metabolic Profil Comments: Test performed at:[facility] Vtgmaizbip98[address] [place], [place] [address] ; handled by edmund GAP 3 (Abnormal) [...] 126 mg/dLsuggests DIABETES MELLITUS per A.D.A. criteria. 62-Avf-626277:16 Rapid Flu (05372 x 2) Influenza A Ag negative (Normal) 82-Oew-789851:05 CBCD ALC 1.47 {X10_3/ul} (Normal) Range: 0.83-4.51 [...] 4.6-6.2 WBC 4.7 K/mm3 (Normal) Range: 4.4-11.0 19-Iiw-115260:05 CMP GAP 5 (Normal) Range: 5-15 CO2 [...] performed using the TPSA assay method for [employer] chemistry system. Values obtained with differentassay methods cannot be used interchangably.When changing PSA assays in the course of monitoring apatient, additional sequential testing should be carriedout to confirm baseline values. :05 UA Comments: How was Urine Obtained? CLEAN [...] 4.6-6.2 WBC 5.3 K/mm3 (Normal) Range: 4.4-11.0 68-Lck-866875:41 CMP GAP 7 (Normal) Range: 5-15 CO2 [...] 7-18 GLU 93 mg/dL (Normal) Range: 70-110 04-Ioe-784038:50 CBCD ANC 3.8 {X10_3/uL} (Normal) Range: 2.0-7.7 [...] 4.6-6.2 WBC 6.6 K/mm3 (Normal) Range: 4.4-11.0 [id number]-[id number]:50 TSH 1.01 {uIU/mL} (Normal) Range: 0.358-3.74 :29 URINE YUE CULTURE-MALIA COL Comments: PATIENT NOT FASTINGPERFORMED BY: [facility] [id number] [facility] [id number] Information: SRC:UR [id number] COUNT ([id number]) Result 1 MUG (Normal) Comments: Mixed urogenital flora1,000 Colonies/mL Urine Culture,Comprehensive Final report (Normal) [id number] Urinalysis, Office ([id number]) UA - BILIRUBIN Large (Normal) UA - BLOOD Negative (Normal) UA - GLUCOSE Negative (Normal) UA - KETONES Negative mg/dL (Normal) UA - LEUKOCYTE ESTERASE Negative (Normal) UA - NITRITE Negative (Normal) UA - PH 7.0 (Normal) UA - PROTEIN Negative mg/dL (Normal) UA - SPECIFIC GRAVITY 1.025 (Normal) URINE UROBILINGN MALIA TIMED Normal mg/dL (Normal) [id number] CBCD ANC 2.7 {X10_3/uL} (Normal) Range: 2.0-7.7 [...] Range: 4.4-11.0 :53 CMP Comments: EFREN URIARTE CNP ORDERED CMP ONLY CO2 29.0 mmol/L (Normal) [...] Range: 70-110 :53 LIPID Comments: EFREN URIARTE CNP ORDERED CMP ONLY VLDL 8 mg/dL (Normal) [...] CHOL 135 mg/dL (Normal) Comments: <200 mg/dL [id number] mg/dL Borderline>240 mg/dL High Risk :53 PSAD 0.56 ng/mL (Normal) Comments: EFREN URIARTE CNP ORDERED CMP ONLY Range: 0.0-4.0 Comments: This test was performed using the TPSA assay method for [employer] chemistry system. Values obtained with differentassay methods [...] (Normal) UCLAR Clear (Normal) UCOL Yellow (Normal) 06-Mug-765761:20 KNEE 4 OR MORE VIEWS Radiology Report [...] harper M.D.September 23, 2012 at 2:44:59 PM [id number] Signed GP/GP If you are the referring physician and would like to consult with theradiologist who provided this interpretation, please c mike Menjivar M.D. at [phone]. If this radiologist is unavailable, youwill be directed to another radiologist to assist. If you are a patient with a question regarding this report, plea secontactyour referring physician directly. Professional Interpretation Provided By: [employer], Phone , These documents contain legally protected [...] destructionofthese documents. Dictated on 09/23/12 1444 by Meng Cox MDribed on 09/23/12 1451 by ITS IMPORTSign by Dagoberto Cox MD on 09/23/12 145 Sign by: Dagoberto Cox MD 52-Jdq-698993:19 Rapid Strep Test, Office (80607) Comments: neg Rapid Strep Test, Office Negative (Normal) 4-Bkb-690640:41 L/S SPINE,MIN 4 VIEWS Radiology Report See [...] Cox M.D.April 02, 2012 at 1:16:13 PM [id number] Signed GP/GP If you are th e referring physician and would like to consult with theradiologist who provided this interpretation, please contact Raj Menjivar at [phone]. If this radiologist is unavailable, youwill be directed to another radiologist to assist. If you are a patient with a question regarding this report, pleasecontactyour referring physician directly. Professional Interpretation Provided By: [facility] here, Phone , These documents contain legally [...] destructionofthese documents. Dictated on 04/02/12 1241 by Cyrus Cox MDranscribed on 04/02/12 1329 by ITS IMPORTSign by Nomi SINGH, Dagoberto on 04/02/12 1330 Sign by: Dagoberto Cox [...] 6 mg/dL (Abnormal) Comments: DUE TO A DURABILITY ENGINEER'S BACKORDER OF THE ICTOTEST TEST, URINE BILIRUBIN COMFIRMATORY TESTING FOR ALL POSITIVERESULTS WILL BE SUSPENDED. TESTING WILL RESUME WHEN THEICTOTEST TEST IS AVAILABLE. GLUR Normal mg/dL (Normal) UCLAR Cloudy (Normal) UCOL Yellow (Normal) :30 YUE CULTURE-OTHER (16181) Comments: PATIENT NOT FASTINGPERFORMED BY: [facility]fkgux9[facility] [id number] Information: SRC:JESUSLino [id number] Result 1 MORACA (Normal) Comments: Moraxella (branhamella) catarrhalisHeavy growthBeta lactamase positive. Upper Respiratory Culture Final report (Normal) :01 [facility] 0 SEEN {/hpf} (Normal) UBAC 0 [...] :42 VITD 46.4 ng/mL (Normal) Comments: appt 06-04-11 Range: 30.0-100.0 Comments: Vitamin D deficiency has been defined by the Drake ofMedicine and an Endocrine Society practice guideline as alevel of serum 25-OH vitamin D less than 20 ng/mL (1,2).The Endocrine Society went on to further define vitamin Dinsufficiency as a level between 21 and 29 ng/mL (2).1. IOM (Drake of Medicine). 2010. Dietary reference intakes for calcium and D. [place]: The National Academies Press.2. Cesario MF, Dylan [place], Darling SCHERER, et al. Evaluation, treatment, and prevention of vitamin D deficiency: an Endocrine Society clinical practice guideline. JCEM. 2010; 96(7): 1911-30.Performed at: - [facility] [address] [id number] Director: Concha Jarrell MD, Phone: [phone] :[phone] YUE CULTURE-OTHER (23251) Comments: PATIENT NOT FASTINGPERFORMED BY: [facility] [address] [id number] Information: SRC:THRT [id number] Result 1 RRF (Normal) Comments: Routine respiratory hernán Upper Respiratory Culture Final report (Normal) :41 Rapid Strep Test, Office (25958) Rapid Strep Test, Office Negative (Normal) :55 [...] ug/dL (Normal) Range: 250-450 :03 VIT D,25 42305 45.7 ng/mL (Normal) Range: 32.0-100.0 Comments: Recent studies consider the lower limit of 32.0 ng/mL to jennifer threshold for optimal health.Remigio GIBSON. J Nutr. 2004;135(2):317-22.Performed at: - [facility] [address] [id number] Director: Concha Jarrell MD, Phone: [phone] :[phone] FECAL OCCULT- Tubes sent home (75764) FECAL OCCULT HGB ASSAY, Negative (Normal) QUAL, [...] 6.4-8.2 GLU 92 mg/dL (Normal) Range: 70-110 4-Ibs-437737:04 D BILI 0.14 mg/dL (Normal) Range: 0.00-0.30 :17 RIBS UNIL 2V NO CXR Radiology Report See Note (Normal) Comments: Exam Number: [id number] CLINICAL:This is a 49-year-old male patient with [...] Report See Note (Normal) Comments: Exam Number: [id number] CLINICAL:This is a 49-year-old male patient with [...] Report See Note (Normal) Comments: Exam Number: [id number] CLINICAL:This is a 49-year-old male patient with [...] Reported By: DAGOBERTO COX 29-Sep-20098:37 Urinalysis, Office (39770) UA - LEUKOCYTE ESTERASE Negative (Normal) UA - NITRITE Negative (Normal) URINE UROBILINGN MALIA TIMED Normal mg/dL (Normal) UA - PROTEIN Negative mg/dL (Normal) UA - PH 7.0 (Normal) UA - BLOOD Negative (Normal) UA - SPECIFIC GRAVITY 1.015 (Normal) UA - KETONES Negative mg/dL (Normal) UA - BILIRUBIN Large (Normal) UA - GLUCOSE Negative (Normal) :09 Urinalysis, Office (75149) UA - LEUKOCYTE ESTERASE Negative (Normal) UA [...] 0.5 ng/mL (Normal) Range: 0.0-4.0 :08 THERESA-D 227520 THERESA-DIRECT SeeNote (Normal) Comments: Result: Negative :08 ANTI-CCP 488382 4 {units} (Normal) Range: 0-19 Comments: Negative [...] mm/h (Normal) Range: 0-20 :08 HB CORE [id number] SeeNote (Normal) Comments: Result: NegativePerformed At: [facility] [address] [place], [place] [id number] At: BNLabCo[address] [id number] :08 HBsAg 6510 HB SURF AG 6510 SeeNote (Normal) Comments: Result: Negative :08 HEBSAB 6395 < 0.1 (Normal) Range: 0.00-0.99 Comments: Status of Immunity Anti-HBs Level Inconsistent with Immunity 0.00 - 0.99Consistent with Immunity >0.99.An Index Value of 1.00 is equivalent to 10 mIU/mL.However the magnitude of the Index Value is notindicative of the total amount of antibody present. :08 HEP C AB 507967 0.1 (Normal) Range: 0.0-0.9 Comments: Negative: < 0.8Indeterminate 0.8 - 0.9Positive: > 0.9.In order to reduce the incidence of a false positiveresult, the CDC recommends that all s/co ratiosbetween 1.0 and 10.9 be confirmed with additionalRIBA or PCR testing. :08 RHEUMATOID FAC 12.7 {IU/mL} (Normal) :08 VIT D,25 89750 33.7 ng/mL (Normal) Range: 32.0-100.0 Comments: Recent studies consider the lower limit of 32.0 ng/mL to jennifer threshold for optimal health.Remigio GIBSON. J Nutr. 2004;135(2):317-22. :15 5-HIAA U24 4069 5-HIAA,U24 4.7 {mg/24_hr} (Normal) Range: 0.0-14.9 5-HIAA,UR 2.6 mg/L (Normal) :15 THERESA-D 535290 THERESA-DIRECT SeeNote (Normal) Comments: Result: Negative Performed At: [facility] [address] [id number] At: CBL[facility] [address] [phone] :15 BMP BUN 21 mg/dL (Abnormal) Range: [...] Range: 65-610 {ug/24_hr} Comments: TESTING PERFORMED AT [facility]. ORIGINAL REPORT ON FILE IN LAB CONTAINS [...] RHEUMATOID FAC 19.5 {IU/mL} (Abnormal) :15 SJOGREN Co64870 Anti-SS-A < 0.2 {AI} (Normal) Range: 0.0-0.9 Anti-SS-B < 0.2 {AI} (Normal) Range: 0.0-0.9 27-Lku-602860:19 CBCD,SMEAR DIFF EOS 4 % (Normal) Range: [...] 47-70 WBC 6.5 K/mm3 (Normal) Range: 4.4-11.0 23-Whw-260674:19 COMP METABOLIC A/G 1.2 {RATIO} (Normal) Range: [...] T PROT 7.4 g/dL (Normal) Range: 6.4-8.2 38-Jtc-234918:19 COMPLETE UA BACTERIA 0 SEEN {/hpf} (Normal) [...] {/hpf} (Normal) Range: 0-5 COLOR YELLOW (Normal) 89-Ndi-732335:19 LIPID CHOL 149 mg/dL (Normal) Comments: <200 [...] Range: 0.358-3.74 :21 Rapid Strep Test, Office (18297) Rapid Strep Test, Office Negative (Normal) Comments: [...] Report See Note (Normal) Comments: Exam Number: [id number] MAMMOGRAM, BILATERAL DIAGNOSTIC DIGITAL AND CAD HISTORYPatient [...] these results has been sent to the [facility] ient. This interpretation was rendered by a radiologist certified under theMammography Quality Standards Act of 1992 (MQSA). The mammograms werealso examined with computer-aided detection software (Workbooks, [employer] Reported By: JUMANA VIDALES M.D. :32 SPINE, THORACIC (ROUTINE) Radiology Report See Note (Normal) Comments: Exam Number: [id number] MRI THORACIC SPINE. CLINICAL STATEMENTThoracic pain, paresthesia. [...] Report See Note (Normal) Comments: Exam Number: [id number] MRI CERVICAL SPINE CLINICAL STATEMENTNeck pain, paresthesia. [...] T PROT 7.1 g/dL (Normal) Range: 6.4-8.2 :10 LIVER ALB 3.9 g/dL (Normal) Range: 3.4-5.0 ALK P 80 U/L (Normal) Range: 50-136 ALT 42 U/L (Normal) Range: 30-65 AST 18 U/L (Normal) Range: 15-37 D BILI 0.14 mg/dL (Normal) Range: 0.00-0.30 T BILI 0.38 mg/dL (Normal) Range: 0.00-1.00 T PROT 7.5 g/dL (Normal) Range: 6.4-8.2 :51 Iron and TIBC Comments: PATIENT NOT FASTINGPERFORMED BY: [facility] [id number] Iron Bind.Cap.(TIBC) 333 ug/dL (Normal) Range: 250-450 Iron Saturation 18 % (Normal) Range: 15-55 Iron, Serum 61 ug/dL (Normal) Range: 40-155 UIBC 272 ug/dL (Normal) Range: 150-375 LDH 227 [iU]/L (Normal) Comments: PATIENT NOT FASTINGPERFORMED BY: [facility] [id number] :51 Range: 100-250 Reticulocyte Count 1.2 % (Normal) Comments: PATIENT NOT FASTINGPERFORMED BY: [address] [id number] :51 Range: 0.5-3.0 Vitamin B12 672 pg/mL (Normal) Comments: PATIENT NOT FASTINGPERFORMED BY: [address] [id number] :51 Range: 211-911 :51 FOLIC ACID SERUM (35673) Comments: PATIENT NOT FASTINGPERFORMED BY: [address] [id number] Folate (Folic Acid), Serum 20.1 ng/mL (Normal) Comments: Indeterminate: 3.4 - 5.4 Deficient: <3.4 :51 FERRITIN (05646) Comments: PATIENT NOT FASTINGPERFORMED BY: GELY [facility] Atcxye0332 [facility] [id number] Ferritin, Serum 53 ng/mL (Normal) Range: 22-322 [...] 47-70 WBC 6.1 K/mm3 (Normal) Range: 4.4-11.0 70-Zgb-77721:18 COMP METABOLIC A/G 1.1 {RATIO} (Normal) Range: [...] was performed using the TPSA method for [employer] chemistry system.Values obtained with different assay methods cannot be usedinterchangably.When changing PSA assays in the course of monito ring apatient, additional sequential testing should be carriedout to confirm baseline values. :18 TSH 0.84 {uIU/mL} (Normal) Range: 0.34-4.82 :26 GALLBLADDER Radiology Report See Note (Normal) Comments: Exam Number: [id number] GALLBLADDER ULTRASOUND HISTORYChest pain. High resolution real [...] Report See Note (Normal) Comments: Exam Number: [id number] MYOCARDIAL PERFUSION SCAN 14.2 millicuries of Tc99m [...] ejection fraction. Reported By: DIANA GARCIA M.D. 79-Jbt-278553:09 BRAIN W/WO CONTRAST Radiology Report See Note (Normal) Comments: Exam Number: [id number] MR ANGIOGRAM OF BRAIN CLINICAL STATEMENTHeadache, cephalgia. Tingling sensation. TECHNIQUE Noncontrast 3-D zhyx-ls-luaoto MRA. FINDINGSNo MRA evidence of aneurysm or atheros clerotic stenosis of the circleof Jordan or intracranial vertebrobasilar artery system is seen. IMPRESSIONNormal MRA of the parasellar region. MRI OF BRAIN CLINICAL STATEMENT Cephalgia. Paresthesia. Stroke. TECHNIQUEAfter obtaining T1 weighted sagittal conservation educator scan, T1, proton density,T2 weighted, and FLAIR [...] the brain. Reported By: CHERRY REYES M.D. 38-Has-493092:09 MRA HEAD WITHOUT CONTRAST Radiology Report See Note (Normal) Comments: Exam Number: [id number] MR ANGIOGRAM OF BRAIN CLINICAL STATEMENTHeadache, cephalgia. Tingling sensation. TECHNIQUE Noncontrast 3-D vfic-gm-moycir MRA. FINDINGSNo MRA evidence of aneurysm or atheros clerotic stenosis of the circleof Jordan or intracranial vertebrobasilar artery system is seen. IMPRESSIONNormal MRA of the parasellar region. MRI OF BRAIN CLINICAL STATEMENT Cephalgia. Paresthesia. Stroke. TECHNIQUEAfter obtaining T1 weighted sagittal conservation educator scan, T1, proton density,T2 weighted, and FLAIR [...] the brain. Reported By: CHERRY REYES M.D. 26-Cmo-204903:32 CBCD,SMEAR DIFF CELLS COUNTED 100 (Normal) EOS [...] cardiovasculardisease. Reference: High risk CRP >3.0 mg/L 05-Peo-08695:50 PFLIP CHOL 117 mg/dL (Normal) Comments: <200 [...] Plan of Care Name Dates Details Instructions Rash : Follow up if no improvement [...] pain, unspecified chronicity 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 Chief Station Engineer Letter Indication: Rheumatoid arthritis Hypertension : Diet, [...] Indication: Rheumatoid arthritis 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 Chief Station Engineer Letter Indication: Rheumatoid arthritis Abnormal glucose tolerance [...] Indication: Vitamin D deficiency Asthma : Reviewed Chief Station Engineer Letter- just had spiromety done Indication: Asthma [...] tolerance test (GTT)) 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 Chief Station Engineer Letter Indication: Rheumatoid arthritis Hypertension : Reviewed [...] Indication: Rheumatoid arthritis 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 Chief Station Engineer Letter- dr De Indication: Rheumatoid arthritis Itching [...] Usage Indication: Other anxiety states Planned Observations HGB A1C (30268)Indication: Abnormal glucose tolerance test (Renamed from Abnormal glucose tolerance test (GTT)) On: 28-Feb-2018 Request Comments: standing order for q4mo for one yr HGB A1C (12300)Indication: Abnormal glucose tolerance test (Renamed from Abnormal glucose tolerance test (GTT)) On: 29-Nov-2017 Request CALCIFIDIOL (24003) VIT D 25Indication: Vitamin D deficiency On: :51 Request TSH (35699)Indication: Abnormal glucose tolerance test (Renamed from Abnormal glucose tolerance test (GTT)) On: :51 Request URINALYSIS, W/ MICRO (71557)Indication: Abnormal glucose tolerance test (Renamed from Abnormal glucose tolerance test (GTT)) On: :51 Request MICROALBUMIN: CREATININE RATIO (84796) AND (50639)Indication: Abnormal glucose tolerance test (Renamed from Abnormal glucose tolerance test (GTT)) On: :51 Request METABOLIC PANEL, COMPREHENSIVE (22789)Indication: Abnormal glucose tolerance test (Renamed from Abnormal glucose tolerance test (GTT)) On: :51 Request LIPOPROTEIN, BLD, BY NMR (06092)Indication: Abnormal glucose tolerance test (Renamed from Abnormal glucose tolerance test (GTT)) On: :51 Request CBC W/AUTO DIFF WBC (77291)Indication: Abnormal glucose tolerance test (Renamed from Abnormal glucose tolerance test (GTT)) On: 57-Rib-45741:51 Request HGB A1C (85198)Indication: Abnormal glucose tolerance test (Renamed from Abnormal glucose tolerance test (GTT)) On: 31-Oct-2017 Request Comments: standing order for q4mo for one yr HGB A1C (53363)Indication: Abnormal glucose tolerance test (Renamed from Abnormal glucose tolerance test (GTT)) On: 01-Aug-2017 Request HGB A1C (04161)Indication: Abnormal glucose tolerance test (Renamed from Abnormal glucose tolerance test (GTT)) On: 03-Jul-20178:49 Request Comments: standing order for q4mo for one yr HGB A1C (15667)Indication: Abnormal glucose tolerance test (Renamed from Abnormal glucose tolerance test (GTT)) On: 2-Gqw-045450:10 Request CALCIFIDIOL (54517) VIT D 25Indication: Vitamin D deficiency On: :29 Request TSH (89679)Indication: Abnormal glucose tolerance test (Renamed from Abnormal glucose tolerance test (GTT)) On: :28 Request URINALYSIS, W/ MICRO (65725)Indication: Abnormal glucose tolerance test (Renamed from Abnormal glucose tolerance test (GTT)) On: :28 Request MICROALBUMIN: CREATININE RATIO (19355) AND (36484)Indication: Abnormal glucose tolerance test (Renamed from Abnormal glucose tolerance test (GTT)) On: :28 Request METABOLIC PANEL, COMPREHENSIVE (82106)Indication: Abnormal glucose tolerance test (Renamed from Abnormal glucose tolerance test (GTT)) On: :28 Request LIPID PANEL (79857)Indication: Abnormal glucose tolerance test (Renamed from Abnormal glucose tolerance test (GTT)) On: :28 Request CBC W/AUTO DIFF WBC (86074)Indication: Abnormal glucose tolerance test (Renamed from Abnormal glucose tolerance test (GTT)) On: 27-Feb-20178:28 Request HGB A1C (90794)Indication: Abnormal glucose tolerance test (Renamed from Abnormal glucose tolerance test (GTT)) On: 65-Mqd-877556:04 Request HGB A1C (74220)Indication: Abnormal glucose tolerance test (Renamed from Abnormal glucose tolerance test (GTT)) On: 18-Dxg-512895:35 Request HGB A1C (81914)Indication: Abnormal glucose tolerance test (Renamed from Abnormal glucose tolerance test (GTT)) On: 2-Xdr-440849:45 Request CALCIFIDIOL (56541) VIT D 25Indication: Vitamin D deficiency On: :51 Request HGB A1C (15694)Indication: Abnormal glucose tolerance test (Renamed from Abnormal glucose tolerance test (GTT)) On: :50 Request TSH (63112)Indication: Abnormal glucose tolerance test (Renamed from Abnormal glucose tolerance test (GTT)) On: :50 Request URINALYSIS, W/ MICRO (53727)Indication: Abnormal glucose tolerance test (Renamed from Abnormal glucose tolerance test (GTT)) On: :50 Request MICROALBUMIN: CREATININE RATIO (80252) AND (22245)Indication: Abnormal glucose tolerance test (Renamed from Abnormal glucose tolerance test (GTT)) On: :50 Request METABOLIC PANEL, COMPREHENSIVE (21188)Indication: Abnormal glucose tolerance test (Renamed from Abnormal glucose tolerance test (GTT)) On: :50 Request LIPID PANEL (81438)Indication: Abnormal glucose tolerance test (Renamed from Abnormal glucose tolerance test (GTT)) On: :50 Request CBC W/AUTO DIFF WBC (94113)Indication: Abnormal glucose tolerance test (Renamed from Abnormal glucose tolerance test (GTT)) On: :50 Request HGB A1C (80481)Indication: Abnormal glucose tolerance test (Renamed from Abnormal glucose tolerance test (GTT)) On: 12-Dam-511684:11 Request HGB A1C (65598)Indication: Abnormal glucose tolerance test (Renamed from Abnormal glucose tolerance test (GTT)) On: :32 Request Lipid Panel (46780)Indication: Abnormal glucose tolerance test (Renamed from Abnormal glucose tolerance test (GTT)) On: :55 Request TSH (23586)Indication: Neck pain On: 74-Wzq-112884:54 Request CBC, Platelets & Auto Diff (00436)Indication: Hypertension On: :54 Request Metabolic Panel, Comprehensive (56492)Indication: Hypertension On: :54 Request CALCIFEDIOL (76860)Indication: Vitamin D deficiency On: :53 Request HGB A1C (77600)Indication: Hyperglycemia On: :49 Request TSH (43725)Indication: Other anxiety states On: :45 Request FECAL OCCULT- Tubes sent home (48437)Indication: Encounter for screening for malignant neoplasm of colon (Renamed from Special screening for malignant neoplasms, colon) On: :43 Request CALCIFIDIOL (49653) VIT D 25Indication: Vitamin D deficiency On: :43 Request URINALYSIS, W/ MICRO (58980)Indication: Hypertension On: :32 Request MICROALBUMIN: CREATININE RATIO (79937) AND (58034)Indication: Hypertension On: :32 Request LIPID PANEL (14815)Indication: Hypertension On: :32 Request Urinalysis, Office (55938)Indication: Abnormal urine On: :12 Request URINE YUE CULTURE (MALIA COL COUNT) (20973)Indication: Abnormal urine On: 92-Nnv-347626:12 Request PSA (PROSTATE SPECIFIC ANTIGEN) (V76.44)Indication: Screening for prostate cancer On: :14 Request URINALYSIS, W/ MICRO (13348)Indication: Hypertension On: :14 Request CBC W/AUTO DIFF WBC (50582)Indication: Hypertension On: 67-Xbv-172962:14 Request METABOLIC PANEL, COMPREHENSIVE (48450)Indication: Hypertension On: 71-Aoe-525520:14 Request URINE YUE CULTURE-IDENTIFICATN (30709)Indication: Abnormal urine On: 06-Piu-184571:38 Request PSA (PROSTATE SPECIFIC ANTIGEN) (V76.44)Indication: Screening for prostate cancer On: :03 Request URINALYSIS, W/ MICRO (07485)Indication: Hypertension On: :02 Request CBC WITH MANUAL DIFF (48298)Indication: Hypertension On: :02 Request METABOLIC PANEL, COMPREHENSIVE (93858)Indication: Hypertension On: 49-Uzn-101081:02 Request TSH (28967)Indication: SYMPTOMS INVOLVING SKIN AND OTHER INTEGUMENTARY TISSUE, FLUSHING On: :25 Request CBC WITH MANUAL DIFF (57807)Indication: SYMPTOMS INVOLVING SKIN AND OTHER INTEGUMENTARY TISSUE, FLUSHING On: : Request CBC WITH MANUAL DIFF (33137)Indication: SYMPTOMS INVOLVING SKIN AND OTHER INTEGUMENTARY TISSUE, FLUSHING On: 37-Sqo-411851:35 Request TSH (41145)Indication: SYMPTOMS INVOLVING SKIN AND OTHER INTEGUMENTARY TISSUE, FLUSHING On: :35 Request SEROTONIN (71372)Indication: SYMPTOMS INVOLVING SKIN AND OTHER INTEGUMENTARY TISSUE, FLUSHING On: :34 Request METANEPHRINES - URINE (71584)Indication: SYMPTOMS INVOLVING SKIN AND OTHER INTEGUMENTARY TISSUE, FLUSHING On: :34 Request CATECHOLAMINES TOTAL, URINE (20316)Indication: SYMPTOMS INVOLVING SKIN AND OTHER INTEGUMENTARY TISSUE, FLUSHING On: :34 Request URINE VMA (85834)Indication: SYMPTOMS INVOLVING SKIN AND OTHER INTEGUMENTARY TISSUE, FLUSHING On: 07-Jsp-798527:34 Request PSA (PROSTATE SPECIFIC ANTIGEN) (99439)Indication: Screening for prostate cancer On: 2-Snw-238759:57 Request Metabolic Panel, Comprehensive (74212)Indication: Hypertension On: 3-Tzv-472430:56 Request CBC with manual diff (68697)Indication: Hypertension On: 0-Nqm-579220:56 Request URINALYSIS (71298)Indication: Hypertension On: 5-Lmg-272869:56 Request Lipid Panel (71158)Indication: SCREENING FOR HYPERLIPIDEMIA On: 1-Dxo-673095:56 Request Metabolic Panel, Comprehensive (26059)Indication: Hypertension On: 4-Pjk-419017:56 Request Comments: to be done in 1-2 weeks YUE CULTURE-OTHER (66764)Indication: Pharyngitis, acute On: 26-Aey-350294:19 Request Rapid Strep Test, Office (53003)Indication: Pharyngitis, acute On: 54-Rak-045964:38 Request LIPID PANEL (03590)Indication: Hypertension On: :41 Request CBC WITH MANUAL DIFF (31874)Indication: Hypertension On: :41 Request METABOLIC PANEL, COMPREHENSIVE (84308)Indication: Hypertension On: :41 Request URINALYSIS, W/ MICRO (15305)Indication: Abnormal urine On: :41 Request Vitamin D Hydroxy (35915)Indication: Paresthesia On: :55 Request URINALYSIS, W/ MICRO (21909)Indication: Hypertension On: :52 Request METABOLIC PANEL, COMPREHENSIVE (81515)Indication: Hypertension On: :52 Request LIPID PANEL (84215)Indication: Carotid stenosis On: 3-Vhw-929313:51 Request PSA (PROSTATE SPECIFIC ANTIGEN) (V76.44)Indication: Screening for prostate cancer On: 3-Vil-091890:51 Request CBC WITH MANUAL DIFF (48757)Indication: Iron deficiency anemia, unspecified On: 5-Fma-067923:51 Request CBC WITH MANUAL DIFF (09828)Indication: Iron deficiency anemia, unspecified On: 70-Ncl-963771:11 Request IRON BINDING CAPACITY (TIBC) (99172)Indication: Iron deficiency anemia, unspecified On: 73-Sug-428465:11 Request FERRITIN (32720)Indication: Iron deficiency anemia, unspecified On: 71-Puc-481212:11 Request IRON (96372)Indication: Iron deficiency anemia, unspecified On: 13-Erw-886175:11 Request CBC WITH MANUAL DIFF (13376)Indication: Iron deficiency anemia, unspecified On: :17 Request LIPID PANEL (06384)Indication: Hypertension On: 88-Oec-318380:17 Request METABOLIC PANEL, COMPREHENSIVE (29749)Indication: Hypertension On: 81-Qnb-448189:17 Request IRON BINDING CAPACITY (TIBC) (93711)Indication: Iron deficiency anemia, unspecified On: 77-Upk-057854:16 Request FERRITIN (04552)Indication: Iron deficiency anemia, unspecified On: 23-Fcb-402079:16 Request IRON (19453)Indication: Iron deficiency anemia, unspecified On: 67-Rlh-637787:16 Request Vitamin D Hydroxy (81485)Indication: Rheumatoid arthritis On: :58 Request CBC WITH MANUAL DIFF (08534)Indication: Iron deficiency anemia, unspecified On: :58 Request FERRITIN (84520)Indication: Iron deficiency anemia, unspecified On: :58 Request IRON BINDING CAPACITY (TIBC) (33314)Indication: Iron deficiency anemia, unspecified On: :58 Request IRON (87842)Indication: Iron deficiency anemia, unspecified On: :58 Request PSA (PROSTATE SPECIFIC ANTIGEN) (V76.44)Indication: Screening for prostate cancer On: :48 Request FOLIC ACID SERUM (54346)Indication: Anemia NEC On: :40 Request VITAMIN B-12 (CYANOCOBALAMIN) (79065)Indication: Anemia NEC On: :40 Request RETICULOCYTE COUNT MANUL (79800)Indication: Anemia NEC On: :40 Request LDH (LD) (LACTATE DEHYDROGENASE) (88923)Indication: Anemia NEC On: :40 Request IRON BINDING CAPACITY (TIBC) (29265)Indication: Anemia NEC On: :40 Request FERRITIN (24747)Indication: Anemia NEC On: :40 Request IRON (46198)Indication: Anemia NEC On: :40 Request CBC, PLATELETS & AUT DIFF (40089)Indication: Anemia NEC On: :40 Request Metabolic Panel, Comprehensive ([id number])Indication: Abdominal pain, acute, right upper quadrant On: :44 Request CBC with manual diff ([id number])Indication: Abdominal pain, acute, right upper quadrant On: :43 Request HEPATIC FUNCTION PANEL ([id number])Indication: Abdominal pain, acute, right upper quadrant On: :41 Request CBC WITH MANUAL DIFF ([id number])Indication: Rheumatoid arthritis On: 38-Btj-243818:46 Request METABOLIC PANEL, COMPREHENSIVE ([id number])Indication: Hypertension On: 97-Sci-144851:45 Request C-REACTIVE PROTEIN ([id number])Indication: Raynaud's syndrome On: :26 Request SED RATE ERYTHROCYTE ([id number])Indication: Raynaud's syndrome On: : Request RHEUMATOID FACTOR-QUANT ([id number])Indication: Raynaud's syndrome On: : Request THERESA (ANTINUCLEAR ANTIBODY) ([id number])Indication: Raynaud's syndrome On: : Request PSA (PROSTATE SPECIFIC ANTIGEN) (V76.44)Indication: Screening for prostate cancer On: :47 Request URINALYSIS, W/ MICRO ([id number])Indication: Hypertension On: :47 Request LIPID PANEL ([id number])Indication: Hypertension On: :46 Request TSH ([id number])Indication: Rash On: :46 Request METABOLIC PANEL, COMPREHENSIVE ([id number])Indication: Hypertension On: :46 Request CBC WITH MANUAL DIFF ([id number])Indication: Hypertension On: :46 Request Metabolic Panel, Basic ([id number])Indication: Hypertension On: 0-Jqo-086530:11 Request HEPATIC FUNCTION PANEL ([id number])Indication: onychomycosis On: :27 Request Comments: q month for 2 months VITAMIN B-12 (CYANOCOBALAMIN) ([id number])Indication: Anemia, unspecified On: :24 Request RETICULOCYTE COUNT MANUL ([id number])Indication: Anemia, unspecified On: 24 Request LDH (LD) (LACTATE DEHYDROGENASE) ([id number])Indication: Anemia, unspecified On: :24 Request IRON BINDING CAPACITY (TIBC) ([id number])Indication: Anemia, unspecified On: : Request IRON ([id number])Indication: Anemia, unspecified On: :24 Request CBC WITH MANUAL DIFF ([id number])Indication: Anemia, unspecified On: 7-Scj-390377:24 Request HEPATIC FUNCTION PANEL ([id number])Indication: onychomycosis On: 3-Eii-914696:15 Request TSH ([id number])Indication: Hypertension On: :15 Request LIPID PANEL ([id number])Indication: Hypertension On: :15 Request METABOLIC PANEL, COMPREHENSIVE ([id number])Indication: Hypertension On: :15 Request CBC WITH MANUAL DIFF ([id number])Indication: Hypertension On: 96-Fdg-331536:14 Request PSA (PROSTATE SPECIFIC ANTIGEN) (V76.44)Indication: Screening for prostate cancer On: :12 Request PTT (Activated Partial Thromboplastin Time) ([id number])Indication: Paresthesia On: :52 Request PT (Prothrobim Time) ([id number])Indication: Paresthesia On: :52 Request TSH ([id number])Indication: Paresthesia On: 19-Fqx-032345:52 Request METABOLIC PANEL, COMPREHENSIVE ([id number])Indication: Paresthesia On: :52 Request CBC WITH MANUAL DIFF ([id number])Indication: Paresthesia On: :52 Request VITAMIN B-12 (CYANOCOBALAMIN) ([id number])Indication: Paresthesia On: :52 Request C-REACTIVE PROTEIN ([id number])Indication: Hypertension On: 69-Caw-247232:04 Request LIPID PANEL ([id number])Indication: Hypertension On: 12-Sdp-980882:04 Request URINALYSIS W/O MICRO ([id number])Indication: Hypertension On: 34-Nio-728600:02 Request TSH ([id number])Indication: Hypertension On: 05-Kup-138282:02 Request CBC WITH MANUAL DIFF ([id number])Indication: Hypertension On: 42-Vwm-429209:02 Request METABOLIC PANEL, COMPREHENSIVE ([id number])Indication: Hypertension On: 21-Zrd-518096:02 Request URINALYSIS W/O MICRO ([id number])Indication: Proteinuria On: 58-Ygr-613853:02 Request Stool Guiac, Office ([id number])Indication: Encounter for screening for malignant neoplasm of rectum On: 69-Onw-937756:32 Request Planned Encounters Medical; 4 Month FU - On: 12-Mar-2018 8:00 [facility] Cari Coles DO, DO, Kathleen Planned Procedures Spirometry ([id number])By: Sanket VOGEL, On: 06-Nov-2017 Intent Cari Encinas DO Comments: normal and not taking inhalers -- treating inhalers instead ELECTROCARDIOGRAM, COMPLETE (ECG) On: 06-Nov-2017 Intent ([id number])By: Cari Coles DO Comments: nsr no acute chg -normal axis Cari Coles DO Radiology - Knee - RightBy: Sanket On: 25-Sep-2017 Intent Cari VOGEL DO, Kathleen X-RAY OF FOOT, THREE VIEWS On: 25-Sep-2017 Intent ([id number])By: Cari Coles DO Comments: right Cari Coles DO ELECTROCARDIOGRAM, COMPLETE (ECG) On: 06-Aug-2016 Intent ([id number])By: Cari Coles DO Comments: nsr no acute chg Cari Coles DO Solu -Medrol Injection, 125 mg On: 20-Apr-2016 Intent ([id number])By: Cari Coles DO Comments: Lot:[id number]:08/13Dose:125mgRoute:imSite:l hipGiven By:FRANKLIN signed Cari Coles DO US DOPPLER CAROTID BILATERAL On: 02-Apr-2016 Intent ([id number])By: Cari Coles DO, DO, Kathleen Radiology - [...] Intent ([id number])By: Efren Uriarte CNP Comments: lot [id number] 3.43151 mgright 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, 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 Aerosol Treatment ([id number])By: Laura On: 22-Feb-2014 Intent Efren CORONA Radiology - Shoulder - LeftBy: Fast On: 18-Jan-2014 Intent DO, Kathie A Comments: and ac joint COMP EYE EXAMINATION, ESTAB PATIENT On: 19-Oct-2013 Intent ([id number])By: Efren Uriarte CNP Nerve ConductionBy: Fast DO, Kathie A On: 24-Jun-2013 Intent Comments: bilateral lower EMGBy: Fast DO, Kathie A On: 24-Jun-2013 Intent Comments: bilateral lower ext- right greater than left Eprescribed prescriptions ([id number])By: On: 24-Apr-2013 Intent Fast DO, Kathie A MRI - Lumbar SpineBy: Fast DO, Kathie On: 24-Apr-2013 Intent A MRI - Cervical SpineBy: Fast DO, On: 24-Apr-2013 Intent Kathie A ELECTROCARDIOGRAM, COMPLETE (ECG) On: 24-Apr-2013 Intent ([id number])By: Fast DO, Kathie A Comments: ekg showed normal sinus rhythym, normal axis, no acute st/t wave changes - early repolar Radiology - Cervical SpineBy: Fast On: 07-Jan-2013 Intent DO, Kathie A Eprescribed prescriptions ([id number])By: On: 07-Jan-2013 Intent Karyn Hunter PHYSICAL THERAPY EVALUATION On: 23-Sep-2012 Intent ([id number])By: Efren Uriarte CNP Radiology - Knee - LeftBy: Cichapis On: 23-Sep-2012 Intent Efren CORONA Comments: call with wet read to [facility]Im Eprescribed prescriptions ([id number])By: On: 23-Sep-2012 Intent Efren Uriarte CNP SPECIMEN HNDLNG/TRNSPRT, OFFC > LAB On: 14-Jul-2012 Intent ([id number])By: Naye Crain LPN Eprescribed prescriptions ([id number])By: On: 03-Apr-2012 Intent Fast DO, Kathie A Radiology - Lumbar SpineBy: Fast DO, On: 02-Apr-2012 Intent Kathie A Eprescribed prescriptions ([id number])By: On: 03-Mar-2012 Intent Karyn Hunter SPECIMEN HNDLNG/TRNSPRT, OFFC > LAB On: 13-Feb-2012 Intent ([id number])By: Naye Crain LPN Cartoid DopplerBy: Fast DO, Kathie A On: 31-Oct-2011 Intent Comments: nov Aerosol Treatment ([id number])By: Laura On: 04-May-2011 Intent Efren CORONA SPECIMEN HNDLNG/TRNSPRT, OFFC > LAB On: 04-May-2011 Intent ([id number])By: Naye Crain LPN Eprescribed prescriptions ([id number])By: On: 29-Jan-2011 Intent Fast DO, Kathie A FLU VAC, SPLIT, >3 YEARS, INTRAMUSC On: 29-Jan-2011 Intent ([id number])By: Karyn Hunter Comments: refuses TDAP VACCINE >7 IM ([id number])By: Al, On: 24-Oct-2010 Intent Rocío Comments: Lot:[id number]:11/15/12Amt:prefilledRoute:IMSite:right deltGiven By: STACIA Kimbrough Cartoid DopplerBy: Fast DO, Kathie A On: 24-Oct-2010 Intent EKG ([id number])By: Karyn Hunter On: 24-Oct-2010 Intent Comments: ekg showed normal sinus rhythym, normal axis, no acute st/t wave changes ivcd- early re[polar no change Ultrasound - Abdomen CompleteBy: On: 29-Sep-2009 Intent Efren Uriarte CNP Comments: today and call wet nettie Uriarte Bgoqhftim-Jcj-Lukne ([id number])By: Laura On: 29-Sep-2009 Intent Efren CORONA Comments: today Radiology - ChestBy: Efren Uriarte CNP On: 29-Sep-2009 Intent Mickey Comments: AP and lateral today ELECTROCARDIOGRAM, COMPLETE (ECG) On: 30-Nov-2008 Intent ([id number])By: Efren Uriarte CNP Bio Z ([id number])By: Efren Uriarte CNP On: 30-Nov-2008 Intent Nerve [...] Nuclear Stress Test/Stress On: 27-Jan-2007 Intent SPECT/TreadmillBy: Kathie Sen DO Echo CompleteBy: Kathie Sen DO A On: 13-Jan-2007 Intent Cartoid DopplerBy: Kathie Sen DO A On: 13-Jan-2007 Intent EKG ([id number])By: Kathie Sen DO On: 13-Jan-2007 Intent Comments: ekg showed normal sinus rhythym, normal axis, no acute st/t wave changes MRI - BrainBy: Kathie Sen DO A On: 13-Jan-2007 Intent Comments: with mra [...] test (GTT)) : DISCONTINUED - HGB A1C ([id number]) Indication: Abnormal glucose tolerance test (Renamed from [...] Instructions Indication: Hypertension Encounters Office Visit On: 05-Mar-2018 15:11 Encounter Reason: [...] has history of allergy, in past saw torch brazer was on allergy shots inpast. Also in [...] patient is following up for include Al l identified problems below, blood sugar issues, high [...] for chronic medical issues: he hasnt seen Basali or Jacques- due to schedule gbut wi ll no uti sx - bpis good- no gerd- we talked about gabapentin or neurontin he will consider - he will try to see basali, [ADDITIONAL REASON] Follow up tests - Date: [...] management- said he should go back to [facility]-- he said leg worse than the neck [...] but mood ok- saw Dr allen in nov and hi s asthma been good so [...] would like t tryi ncrease in [facility] for pain- no gerd- and breathing has [...] bp is good and wants to see reyna again for legs- his epigastric pain is [...] kaylee, anxiety). weight : (238.1). Note for F zahraalow up for chronic medical issues: he is [...] [facility] and thought he had rheumatoid- - [...] at changing cpap becuase has plastic and torch brazer think allergic to that-- color changes in [...] bring on the pain- he hasnt seen gesler-- he has tried muscle relaxers- Encounter Diagnosis: [...] for this-- varicose veins-- [facility] thisEncounter Diagnosis: PARESTHESIA (782.0), Anxiety state, [...] he gets redness- he will call his torch brazer regarding this- he is following with Jacques-- [...] Rhinitis(477.9), Actinic keratosis (702.0), VARICOSE VEINS- SUPPORT JUAN [facility] Historical Summary On: 04-Feb-2006 [...] full note dictated [facility] Payers [facility] HospitalWilla Freitas; yuliya guarantor
--- OUTSIDE RECORDS SUMMARY | 2018-05-20 21:56 | XMS RPT_ITS | Continuity of Care Document ---
:1960 Author Organization [facility] Address [address] [place] [address] Phone Care Team Providers Name Role Phone Cari Portillo DO Unavailable Andrea Garcia Unavailable Dr. Long Colmenares Unavailable [facility], [facility] Unavailable Dr. Fabio Robb Unavailable Dr. Markel Montes Unavailable Paco Schaffer Unavailable Axel SINGH, Graham Canales Unavailable Dr. Yariel Palmer Unavailable Ca Valenzuela Unavailable Fredi Perez Unavailable Fabiola SINGH, Max Rodriguez Unavailable Rebekah Neff Unavailable Unavailable STACIA Rodriguez Unavailable Unavailable Laura CORONA, Allyson Unavailable Kassi Brennan LPN Unavailable Unavailable Unavailable Unavailable Problems Name Dates Details Abnormal glucose tolerance test (Renamed from Abnormal glucose tolerance test (GTT)) (R73.02, 790.22) Comments: cutting back to one tab [...] Active Ear pressure, bilateral (H93.8X3, 388.8) Comments: pain with pushing on tragus is relieved Status: Active Eczema (L30.9, 692.9) Status: Active Elevated hemoglobin A1c (R73.09, 790.29) Status: Active Encounter for screening for malignant neoplasm of colon (Renamed from Special screening for malignant neoplasms, colon) (Z12.11, V76.51) Status: Active ETD (Eustachian tube dysfunction), bilateral (H69.83, 381.81) Status: Active Exposure to the flu (Z20.828, V01.79) Status: Active Foot pain, right (M79.671, 729.5) Status: Active GERD with apnea (K21.9, 530.81) [...] qd for 0 days Refills: 0 Ordered:08-Feb-2009 Karyn HunterActive Avapro 150 MG Oral Tablet 1 (one) Tablet Tablet qd for 0 days Quantity: 30 {Tablet} Refills: 3 Ordered:02-Oct-2017 Libby Rodriguez LPN Start : 02-Oct-2017 Active Cymbalta 60 MG Oral Capsule Delayed Release Particles 1 (one) Capsule DR Part q am for 0 days Quantity: 90 {Capsule} Refills: 3 Ordered:03-Jul-2017 Sharno Portillo DO, DO, Kathleen Start : 03-Jul-2017 Active Flonase 50 MCG/ACT Nasal Suspension 2 (two) Puff(s) daily for 0 days Quantity: 1 {Hudson} Refills: 0 Ordered:09-Oct-2017 Sharon Portillo DO, DO, Kathleen Start : 09-Oct-2017 Active FOLIC ACID, 1MG (Oral Tablet) 1 Tablet two times daily for 360 days Quantity: 30 {Tablet} Refills: 0 Ordered:02-Dec-2012 Erika Uriarte CNP Start : 02-Dec-2012 Active HYDROXYZINE HCL, 10MG (Oral Tablet) 1 tab q 8hrs, prn (10 MG) Active PROAIR HFA, 108 (90 Base)MCG/ACT (Inhalation Aerosol Solution) 2 (two) Aerosol Soln Aerosol Soln puffs qid prn for 0 days Quantity: 1 {Inhaler} Refills: 3 Ordered:07-Feb-2015 Karyn Hunter Start : 07-Feb-2015 Active Protonix 40 MG Oral Tablet Delayed Release [address] qd for 0 days Quantity: 90 {Tablet} Refills: 3 Ordered:03-Jul-2017 Sanket VOGEL CariSanket Cari VOGEL Start : 03-Jul-2017 Active SINGULAIR, 10MG (Oral Tablet) 1 tab daily (10 MG) Active Valium 5 MG Oral Tablet 1/2-1 Tablet Tablet bid prn muscle spasm for 0 days Quantity: 30 {Tablet} Refills: 0 Ordered:28-Mar-2016 Libby Rodriguez LPN Start : 28-Mar-2016 Active Comments:thirty Xyzal 5 MG Oral Tablet 1 Tablet qd for 90 days Quantity: 90 {Tablet} Refills: 3 Ordered:27-Feb-2017 Sanket VOGEL CariSanket Cari VOGEL Start : 27-Feb-2017 Active SYEDA, 180MG (Oral [...] days Quantity: 20 {Tablet_ER_24HR} Refills: 0 Ordered:14-Jul-2012 Erika Uriarte CNP Start : 14-Jul-2012 End : [...] 30 {Tablet} Refills: 0 Ordered:12-Feb-2018 Laura CORONA Erika Arevalo Start : 09-Oct-2017 End : 12-Feb-2018 Inactive Meloxicam 15 MG Oral Tablet 1 (one) Tablet Tablet qd with food for 0 days Quantity: 20 {Tablet} Refills: 0 Ordered:12-Feb-2018 Laura CORONA Erika Arevalo Start : 25-Sep-2017 End : 12-Feb-2018 Inactive MYCELEX, 10MG (Mouth/Throat Cat) 1 Cat 5 x daily for 10 days Quantity: 50 {Cat} Refills: 0 Ordered:04-May-2011 Laura CORONA Erika Arevalo Start : 04-May-2011 End : 14-May-2011 Inactive CPJCLULE-APLHVNLGM-MVJABDUO, 0.1% (Ophthalmic Suspension) apply ointment to each eye q hs (0.1 %) Inactive RHINOCORT AQUA, 32MCG/ACT (Nasal Suspension) 1 for 0 days Refills: 0 Ordered:04-May-2011 Wilfred Crain LPNsie Start : 29-Dec-2008 End : 04-May-2011 Inactive [...] Quantity: 90 {Tablet} Refills: 2 Ordered:17-Aug-2015 Sharon Portillo DO, DO, Kathleen Start : 17-Aug-2015 End [...] : 05-Oct-2014 End : 16-May-2016 Discontinued Comments:Dr. Edmund CUETOL, 10MG (Oral Tablet) 1 Tablet tid prn for 0 days Quantity: 60 {Tablet} Refills: 0 Ordered:31-Oct-2011 Karyn uHnter Start : 31-Oct-2011 End : 31-Oct-2011 Discontinued Gabapentin 300 MG Oral Capsule 1 (one) Capsule Capsule qhs for 5nights then bid for 5nights then tid for 0 days Quantity: 90 {Capsule} Refills: 1 Ordered:20-Apr-2016 Sharon Portillo DO, DO, Kathleen Start : 20-Apr-2016 End : 20-Apr-2016 Discontinued Comments:allergy HYDROCHLOROTHIAZIDE, 12.5MG (Oral Tablet) 1 (one) Tablet daily for 90 days Quantity: 90 {Tablet} Refills: 3 Ordered:09-Nov-2009 Mckinley Kathie VOGEL Start : 09-Nov-2009 End : 09-Nov-2009 Discontinued HYDROCORTISONE VALERATE, 0.2% (External Cream) 1 Cream apply bid prn for 0 days Quantity: 60 {Cream} Refills: 1 Ordered:07-Jan-2013 Mckinley VOGELOscara Parker Start : 07-Jan-2013 End : 07-Jan-2013 Discontinued [...] Quantity: 30 {Tablet} Refills: 0 Ordered:07-Jan-2013 Kathie Sne DO Start : 07-Jan-2013 End : 07-Jan-2013 [...] Visit Report Result: Comments: See Note; NOTES: [place] [address] OFFICE VISIT Date of Service: 01/18/18 MR#: [id number] Acct: [id number] Name: WILLA MORROW Rep # : [id number] : 1960 Provider: STARR Payne Age/Sex: 57/M Location: [facility] Status: Signed Intake Vital Signs01/18/18 Body [...] SC Q7D 0 03/29/17 [History Confirmed 01/18/18] [facility] Medical History Diabetes (Acute) Hay fever (Acute) Seizures (Acute) HTN (hypertension) (Chronic) Social H istory Smoking Status: Never smoker alcohol intake: current alcohol intake frequency: holidays/special occasions only Alcohol type: wine HPI HPI Chief Complaint: cough, low grade fever Details: WILLA MARSHALL, is a 57 NIDDM M who [...] Endocrine: Positive for exc essive sweating (at nght x 2 nights); no fatigue, cold intolerance, [...] and congestion J06.9 2. Bronchitis J40 Plan Smooth called to [facility]/u with PCP if symptoms persis t Rec: ED if high fever, SOB, Symptoms become acute. Coding Level of Care Code Off vis,est,level 3 Diagnoses URI with cough and congestion J06.9 Bronchitis J40 11/24/18 0835 <Electronicall y signed by Landy CLEMENTS> Date Landy CLEMENTS Cosigner Signature: Date (if applicable) CC: 01-Nov-2017 PT D/C Summary (1) Result: Comments: See Note; NOTES: [facility] Physical Therapy [facility] [address] [place] [address] Fax REHABILITATION SERVICES DISCHAR GE SUMMARY MR#: [id number] Acct: [id number] Name: WILLA MORROW Rep #: [id number] : 1960 57 From: Farrukh Mcleod DPT, OCS, CSCS Referring DrLaina: Cari Portillo DO Status: REG RCR Insurance: [facility] SELF PAY INSURANCE HP - PT D/C [...] feel free t o call me at [phone]. Thank you for the referral of this patient. Sincerely, Farrukh Mcleod DPT, OC <Electronically signed by Farrukh Mcleod DPT, JULIO, CSCS> 11/01/17 0645 CC: Cari Portillo DO EBG Signed 24-Oct-2017 Inital Evaluation (1) - PT Result: Comments: See Note; NOTES: [facility] Physical Therapy [facility] [address] [place] [address] Fax REHABILITATION SERVICES INITIAL EVALUATION MR#: [id number] Acct: [id number] Name: WILLA MORROW Rep #: [id number] : 1960 57 From: Farrukh Mcleod DPT, JULIO, CSCS Referring Dr.: Cari Portillo DO Status: REG RCR Insurance: [facility]1983 SERVICES SELF PAY INSURANCE Patient's Visit Information [...] to be FAXED BACK to us at [phone] for Medicare purposes. Please let me know if there are questions or concerns regarding this plan of care. Physician Signature: Date: <Electronically signed by Farrukh Mcleod DPT, OCS, CSCS> 0932 CC: Cari Portillo DO EBG Signed For Medicare only, by signing this I certify the plan of care. Physicians Signature Date 25-Sep-2017 Foot min 3 Views Result: Comments: See Note; NOTES: [facility] Imaging Services [address] [place] [address] Foot min 3 Views MR#: [id number] Acct: [id number] Name: WILLA MORROW Rep #: [id number] : 1960 M 57 From: Davin Cárdenas MD PCP: Cari Portillo DO Status: REG CLI Study: Foot min 3 Views Date of Exam: 09/25/17 Exam# [id number] Ordering Dr: Cari Portillo DO STUDY: X-RAY [...] Service support , CC: Cari Portillo DO Cost Recovery Technician: Signed 25-Sep-2017 Knee 4 or More Views Result: Comments: See Note; NOTES: [facility] Imaging Services [address] [place] [address] Knee 4 or More Views MR#: [id number] Acct: [id number] Name: WILLA MORROW Rep #: [id number] : 1960 M 57 From: Davin Cárdenas MD PCP: Cari Portillo DO Status: REG CLI Study: Knee 4 or More Views Date of Exam: 09/25/17 Exam# [id number] Ordering Dr: Cari Portillo DO STUDY: X-RAY [...] Service support , CC: Cari Portillo DO Cost Recovery Technician: Signed 04-Jun-2017 Foot min 3 Views Result: Comments: See Note; NOTES: [facility] Imaging Services [address] [place] [address] Foot min 3 Views MR#: [id number] Acct: [id number] Name: WILLA MORROW Rep #: [id number] : 1960 M 56 From: Anuel Harrison MD PCP: Cari Portillo DO Status: REG CLI Study: Foot min 3 Views Date of Exam: 06/04/17 Exam# [id number] Ordering Dr: Ruchi Valenzuela STUDY: X-RAY - [...] Harrison MD at 23:13 EDT Te l [phone], Service support , CC: Cari Portillo DO; Ruchi Valenzuela DP Cost Recovery Technician: Signed 04-Jun-2017 Foot min 3 Views Result: Comments: See Note; NOTES: [facility] Imaging Services [address] [place] [address] Foot min 3 Views MR#: [id number] Acct: [id number] Name: WILLA MORROW Rep #: [id number] : 1960 M 56 From: Anuel Harrison MD PCP: Cari Portillo DO Status: REG CLI Study: Foot min 3 Views Date of Exam: 06/04/17 Exam# [id number] Ordering Dr: Ruchi Valenzuela STUDY: X-RAY - [...] EDT , Service support , CC: Cari Portillo DO; Ruchi Valenzuela DPM Cost Recovery Technician: Signed 29-Mar-2017 Urgent Care Visit Report Result: Comments: See Note; NOTES: [facility] [address] [place] [address] OFFICE VISIT Date of Service: 03/29/17 MR#: [id number] Acct: [id number] Name: WILLA MORROW Rep # : [id number] : 1960 Provider: Antonio CLEMENTS Age/Sex: 56/M Location: [facility] [place] Status: Signed Intake Vital Signs03/29/17 Height [...] 40 mg PO DAILY 04/20/16 [History Confirmed 02/02/18] cholecalciferol (vitamin D3) 1,000 unit capsule 1,000 [...] pattern Exam Const General: cooperative, healthy appearing HENWI Head: normal to inspection Ears: hearing grossly [...] Operative Report Result: Comments: See Note; NOTES: [facility] Medical Records Department [address] [place] [address] Operative Report MR#: [id number] Acct: [id number] Name: WILLA MORROW R Rep #: [id number] : 1960 55 From: Long Colmenares MD PCP: Cari Portillo DO Status: [facility] DATE OF SERVICE: PROCEDURE PERFORMED: Esophagogastroduodenoscopy with [...] Scope was withdrawn back in the st omach. Retroflexion was performed. A view of the [...] Lashonda Bentley C: Cari Portillo DO T: [facility] JOB: [id number] 05/08/16 1409 <Electronically signed by Long Colmenares MD> Date Long Colmenares MD Cosigner Signature (If Indicated): Date CC: Cari Mcclellan; Long Colmenares Date Dictated: 04/26/16830 Date Transcribed: 04/26/16830 Cost Recovery Technician: Signed 18-Apr-2016 PT D/C Summary (1) Result: Comments: See Note; NOTES: [facility] Physical Therapy [address] [place] [address] Fax REHABILITATION SERVICES DISCHAR GE SUMMARY MR#: [id number] Acct: [id number] Name: WILLA MORROW Rep #: [id number] : 1960 55 From: Farrukh Mcleod DPT, OCS, CSCS Referring DrLaina: Cari Portillo DO Status: REG RCR Insurance: [facility] HP - PT D/C Summary It has [...] please feel free to call me at [phone]. Thank you for the referral of this patient. Sincerely, Farrukh Mcleod DPT, OC <Electronically sign ed by Farrukh Mcleod DPT, OCS, CSCS> 04/18/16 0737 CC: Cari Portillo DO EBKenisha Signed -Mar-2016 Inital Evaluation (1) - PT Result: Comments: See Note; NOTES: [facility] Physical Therapy [facility] [place] [address] Fax REHABILITATION SERVICES INITIAL EVALUATION MR#: [id number] Acct: [id number] Name: WILLA MORROW Rep #: [id number] : 1960 55 From: Farrukh Mcleod DPT, OCS, CSCS Referring Dr.: Cari Portillo DO Status: REG RCR Insurance: [facility] Patient's Visit Information ED Cirstian MORROW is a 55 year old M [...] to neck pain. Uses a Cpap. 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 No SCHERER and no [...] to be FAXED BACK to us at [phone] for Medicare purposes. Please let me know if there are questions or concerns regarding this suki n of care. Physician Signature: Date: <Electronically signed by Farrukh Mcleod DPT, OCS, CSCS> 03/30/16 0653 CC: Cari Portillo DO EBG Signed For Medicare only, by signing this I certify the plan of care. Physicians Signature Date 17-Aug-2015 Spirometry (80471) Result: 17-Aug-2015 ELECTROCARDIOGRAM, COMPLETE (ECG) (71615) Comments: sinus jermaine - no acute chg Result: [MEASUREMENTS ANALYSIS] Date of Test: 08/17/2015 10:09:13; Heart Rate: 56; NH Interval: 160; QRS: 108; QT Interval: 380; Corrected QT Interval (QTc): 373; P [place]: 41; QRS [place]: 38; T [place] : 32; Blood Pressure: 132/82 [ECG DIAGNOSTIC STATEMENTS] Date of Test: 08/17/2015 10:09:13; Summary: Sinus Bradycardia -Prominent R(V1) -nonspecific. BORDERLINE 13-Apr-2015 NCS and/or EMG Patient Result: Comments: See Note; NOTES: [facility] Pulmonary Services/Neurology [address] [place] [address] NCS and/or EMG Patient MR#: [id number] Acct: [id number] Name: JOEY MCGRATHWILLA R Rep #: [id number] : 1960 54 From: Quinn Wells Referring Dr: Kathie Sen DO Status: REG CLI Ordering Dr: Kathie Sen DO Date: 04/13/15 Location: [facility] Sex: M C DATE OF SERVICE: [...] referral. Quinn Wells MD T: NTS JOB: [id number] 04/13/15 2257 <Electronically signed by Quinn Wells > Date Quinn Wells CC: Kathie Sen DO; QUINN Dolan ate Dictated: 04/13/15833 Date Transcribed: 04/13/15833 Cost Recovery Technician: Signed 12-Feb-2015 Sleep Study Report Result: Comments: See Note; NOTES: [facility] SLEEP DISORDER [facility]ENTER [address] [place] [address] Polysomnography with NCPAP MR#: [id number] Acct: [id number] Name: WILLA MORROW R Rep #: [id number] : 1960 54 From: Danis Verdugo MD PCP: Kathie Sen DO Status: REG CLI Ordering Dr.: Fredi Perez MD Date: 02/09/15 Sex: M C DATE OF SERVICE: 02/09/2015 [facility] NG RULES: Respiratory events were acquired and scored in accordance with the Recommended Standards and Specifications as outlined in the AASM Manual for the Scoring of Sleep and Associated Events ( recent version). Please note that a reference to [facility] AHI in this report is consistent with the current Hypopnea definition according to Medicare Criteria and an AASM AHI reference is consistent with the current Hypopnea definition according to the AASM criteria and is recognized by [facility] as the RDI. PROCEDURE: The study was attended continuously by a lawn and garden technician. Monitored parameters includ ed left and [...] body mass index of 45.8 and an Outing sleepiness scale score of 0. The patient [...] and Easy-Breathe on. Danis merida MD T: [facility] JOB: [id number] CC: Danis Verdugo MD 1503 1503 02/12/15 1012 <Electronically signed by Danis Verdugo MD> Date Danis Verdugo MD Co-signature (if applicable) Date Signed -Dec-2014 Carotid Duplex Ultrasound Result: Comments: See Note; NOTES: [facility] Cardiovascular Services [address] [place] [address] Carotid Duplex Ultrasound 01/05/15 1537 MR#: [id number] Acct: [id number] Name: ZENAWILLA Rep #: [id number] : 1960 54 From: Seven Allison MD [...] the left vertebral artery. Procedure Carotid Duplex 82699. Exam per formed in department. Interpretation Summary Mild (<50%) stenosis right extracranial internal carotid. Mild (<50%) stenosis left extracranial internal carotid. Flow within the verte bral arteries is antegrade bilaterally. Ordering Physician: Kathie Sen Referring Physician: Kathie Winter D.O. Performed By: Shari Salinas 01/12/15 08 Date Seven Allison MD CC: Kathie Sen DO Date Dictated: 01/05/15 1537 Date Transcribed: 01/12/15802 Cost Recovery Technician: Signed 20-Oct-2014 Shoulder min 2 Views Result: Comments: See Note; NOTES: [facility] Imaging Services [address] [place] [address] Radiology Report MR#: [id number] Acct: [id number] Name: WILLA MORROW Cristian Rep #: [id number] : 1960 M 54 From: Chaim Bergeron MD PCP: Kathie Sen DO Status: REG CLI Study: Shoulder min 2 Views Date of Exam: 10/20/14 Exam# [id number] Ordering Dr: Anthony Teran DO STUDY: X-RAY [...] MD, FACR at 20:20 EDT T el [phone], Service support [phone], 0045 RAD/Shoulder min 2 Views IMPRESSION: Mild arthrosis of the acromioclavicular joint Electronically Signed: Marcos Bergeron MD, FACR at 20:20 EDT , Service support [phone], CC: Kathie Sen DO; Anthony Teran Cost Recovery Technician: Signed 05-Jul-2014 Emergency Department Summary Result: Comments: See Note; NOTES: [facility] Medical Records Department [address] [place] [address] Emergency Department Summary 07/05/14 1141 MR#: [id number] Acct: [id number] Name: WILLA MORROW R Rep #: [id number] : 1960 53 From: Arsh Macias MD [...] DO at 12:53 EDT , Service support [phone], 07/05/14 11:49 Gallbladder [US] Stat La boratory [...] % Lymph % (Auto) 31.6 (19-41) % [place] % (Auto) 7.4 (0-10) % Eos % [...] 7.0 (5.0 - 8 .0) Ur Specific Hope 1.010 (1.002-1.030) Urine Protein Negative (Negative) mg/dl [...] Unknown Cause, (Male) Prescriptions: Hydrocodone Bitart/Apap 5-325 [Americus 5/325] 1 - 2 tablet PO Q4H PRN PRN #12 tablet PRN Reason: Pain Omeprazole [Prilosec] 20 mg PO DAILY #30 capsule Referrals: Fast,Kathie, DO [Primary Care Provider] - 3-5 Days What to do if you have Problems For any increased pain, shortness of breath, bleeding, nausea or vomiting, chest pa in, or any unexpected problems, contact your doctor. Call [facility] ([phone]) or report to the closest Emergency Room. Call 911 if necessary. 07/05/14 2432 <Electronically sig roscoe by Arsh Macias MD> Date Arsh Macias MD Cosigner Signature (If Indicated): Date CC: Kathie Fast DO 05-Jul-2014 Gallbladder Result: Comments: See Note; NOTES: [facility] Imaging Services [address] [place] [address] Ultrasound Report MR#: [id number] Acct: [id number] Name: WILLA MORROW Rep #: [id number] : 1960 M 53 From: Ja Saenz DO PCP: Fast DOKathie Status: REG ER Study: Gallbladder Date of Exam: 07/05/14 Exam# [id number] Ordering Dr: Arsh Macias MD STUDY: ULTRASOUND [facility] REASON FOR VISIT: Male, 53 years old. [...] at 12:53 EDT , Servic e support [phone], CC: ARSH MACIAS MD; Kathie Sen DO Cost Recovery Technician: Signed 20-Jan-2014 Shoulder min 2 Views Result: Comments: See Note; NOTES: [facility] Imaging Services [address] [place] [address] Radiology Report MR#: [id number] Acct: [id number] Name: WILLA MORROW Rep #: [id number] : 1960 M 53 From: Arsh Mi MD PCP: Kathie Sen DO Status: REG CLI Study: Shoulder min 2 Views Date of Exam: 01/20/14 Exam# [id number] Ordering Dr: Kathie Sen DO STUDY: X-RAY [...] MD at 17:11 EST , Service support [phone], RAD/Shoulder min 2 Views IMPRESSION: No fracture. Joint spaces are well-preserved. Electronically Signed: Arsh Mi MD at 17:11 EST Tel , Service support [phone], CC: Kathie Sen DO Cost Recovery Technician: Signed 23-Sep-2013 NCS and/or EMG Patient Result: Comments: See Note; NOTES: [facility] Pulmonary Services/Neurology [address] [place] [address] NCS and/or EMG Patient MR#: [id number] Acct: [id number] Name: ZENAWILLA Foster Rep #: [id number] : 1960 53 From: Atif Samuels MD [...] Dictated: 09/16/13 1138 Date Transcribed: 09/16/13 1244 Cost Recovery Technician: NIESHA Signed 15-May-2013 Spine Cervical (Routine) Result: Comments: See Note; NOTES: [facility] Imaging Services [address] [place] [address] MRI Report MR#: [id number] Acct: [id number] Name: WILLA MORROW Rep #: [id number] : 1960 M 52 From: Chaim Bergeron MD PCP: Kathie Sen DO Status: REG CLI Study: Spine Cervical (Routine) Date of Exam: 05/15/13 Exam# [id number] Ordering Dr: Kathie Sen DO STUDY: MRI [...] M.D. at 9:11 EDT , Service support [phone], CC: Kathie Sen DO Cost Recovery Technician: Signed 15-May-2013 Spine Lumbar (Routine) Result: Comments: See Note; NOTES: [facility] Imaging Services [address] [place] [address] MRI Report MR#: [id number] Acct: [id number] Name: WILLA MORROW Rep #: [id number] : 1960 M 52 From: Chaim Bergeron MD PCP: Kathie Sen DO Status: REG CLI Study: Spine Lumbar (Routine) Date of Exam: 05/15/13 Exam# [id number] Ordering Dr: Kathie Sen DO STUDY: MRI [...] M.D. at 9:14 EDT , Service support [phone], CC: Kathie Sen DO Cost Recovery Technician: Signed 11-Feb-2013 PT Discharge Summary Result: Comments: See Note; NOTES: [facility] Physical Therapy [facility] [address] [place] [address] Fax REHABILITATION SERVICES DISCHARGE SUMMARY MR#: [id number] Acct: [id number] Name: WILLA MORROW Rep #: [id number] : 1960 52 From: Shannen Anne Referring [...] he did have a fall [place] the [place] last night and is a little [...] C: Kathie Sen DO T: NTS JOB: [id number] <Electronically signed by Shannen Anne > 02/11/13 0952 CC: * Signed 14-Jan-2013 Inital Evaluation - PT Result: Comments: See Note; NOTES: [facility] Physical Therapy [facility] [place] [address] Fax REHABILITATION SERVICES INITIAL EVALUATION MR#: [id number] Acct: [id number] Name: WILLA MORROW Rep #: [id number] : 1960 52 From: Shannen Anne Referring DrLaina: Kathie Sen DO Status: REG R Insurance[facility] Date: DATE OF SERVICE: 01/12/2013 SUBJECTIVE: This [...] He has 3 jobs. 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 He reports that life in crease [...] his complaint of left shoulder pain. Bilateral head worker strength equals 90 pounds. Bilateral upper extremity [...] extremity. Shannen Anne, PT T: NTS JOB: [id number] <Electronically signed by Shannen Anne > 01/14/13 [...] smoker Vital Signs Date Test Result Details :06 Temperature 97.5 f Comments: Method: Temporal [...] kg/m2 Body Surface Area Calculated 2.23 m2 61-Onm-900562:27 Pulse 81 /min Comments: Pattern: Regular Respiration [...] Arm; Cuff Size: Standard Weight 249.0625 lb : Temperature 97.1 f Comments: Method: Oral Pulse [...] Arm; Cuff Size: Standard Weight 251 lb 37-Bir-530674:33 Temperature 97.8 f Pulse 68 /min Comments: Pattern: Regular Respiration Rate 18 /min Comments: Pattern: Unlabored BP Systolic 126 mm[Hg] Comments: Patient Position: Sitting; Cuff Location: Left Arm; Cuff Size: Large BP Diastolic 80 mm[Hg] Comments: Patient Position: Sitting; Cuff Location: Left Arm; Cuff Size: Large 76-Elf-606521:58 Temperature 97.5 f Comments: Method: Undefined Pulse [...] Description Value Details :35 Hemoglobin A1c Comments: [facility] [address] [place], [place], [address] HGB A1C 5.7 % (Normal) Range: 4.2-6.3 21-Rfr-014109:49 CBC W/Diff, Automated Comments: [facility] [address] [place], [place], [phone] Absolute Lymph 1.45 {X10_3/ul} (Normal) Range: 0.83-4.51 [...] 4.6-6.2 WBC 7.7 K/mm3 (Normal) Range: 4.4-11.0 77-Xzp-501137:49 Comprehensive Metabolic Profil Comments: [facility] [address] [place], [place], [address] GAP 6 (Normal) Range: 5-15 CO2 28.0 [...] A.D.A. criteria.Please note revised GLUCOSE reference range xaqtscybi03/02/2018. :37 CBC W/Diff, Automated Comments: [facility] [address] [place], [place], [phone] Absolute Lymph 1.73 {X10_3/ul} (Normal) Range: 0.83-4.51 [...] 4.6-6.2 WBC 5.3 K/mm3 (Normal) Range: 4.4-11.0 :37 Comprehensive Metabolic Profil Comments: TOM ONLY GETS CBCD,[facility]MPTr[facility] [address] [place], [place], [phone] GAP 4 (Abnormal) Range: 5-15 CO2 29.0 [...] Comments: Please note revised GLUCOSE reference range zexoyydsy42/02/2018. 29-Jun-20178:37 Hemoglobin A1c Comments: [facility] [address] [place], [address] HGB A1C 6.0 % (Normal) Range: 4.2-6.3 29-Jun-20178:37 Lipid Profile Comments: TOM QUAN GETS CBCD,[facility] [address] [place], [address] VLDL 9 mg/dL (Normal) Range: 5-40 LDL [...] High Risk 29-Jun-20178:37 Microalb:Creat Ratio,Random UR Comments: [facility] [address] [place] [address], [address] MALB:CREAT 4.1 {mg/g_CRE} (Normal) MICROALBUMIN,UR 10.9 mg/L (Normal) UR CREAT 264.00 mg/dL (Normal) 29-Jun-20178:37 Thyroid Stim Hormone (TSH) Comments: TOM QUAN GETS CBCD,[facility] [address] [place] [address], [address] TSH 0.84 {uIU/mL} (Normal) Range: 0.358-3.74 29-Jun-20178:37 Urinalysis, Complete Comments: How was Urine Obtained? CLEAN [facility] [address] [place] [address], [address] MUCUS, URINE 0 SEEN {/hpf} (Normal) [...] Yellow (Normal) 29-Jun-20178:37 Vitamin D,25 Hydroxy Comments: [facility] [address]xag[address]ahlk29[address] [facility] [address] [place], [place], [address] Vitamin D 25-OH 38.9 ng/mL (Normal) Range: 29.95-100.01 Comments: Vitamin D 25(OH) Status Range Deficiency <20 ng/mL (50nmol/L) Insuffciency 20 - 30 ng/mL (50 - 75 nmol/L) Sufficiency 30 - 100 ng/mL (75 - 250 nmol/L) Toxicity >100 ng/mL (>250 nmol/L) 16-Ccr-401443:02 CBC W/Diff, Automated Comments: [facility] [address] [place], [place], [address] Absolute Lymph 1.71 {X10_3/ul} (Normal) Range: 0.83-4.51 [...] 4.6-6.2 WBC 6.8 K/mm3 (Normal) Range: 4.4-11.0 93-Uzl-996072:02 Comprehensive Metabolic Profil Comments: [facility] [address] [place], [place], [address] GAP 7 (Normal) Range: 5-15 CO2 30.0 mmol/L (Normal) Range: 21.0-32.0 CL 103 mmol/L (Normal) Range: 98-107 K 3.8 mmol/L (Normal) Range: 3.5-5.1 NA 140 mmol/L (Normal) Range: 136-145 T BILI 0.50 mg/dL (Normal) Range: 0.20-1.00 ALT 49 U/L (Normal) Range: 16-61 Comments: Please note revised ALT reference range aogkbwkxc24/28/2018. ALK P 68 U/L (Normal) Range: 45-117 [...] Comments: Please note revised GLUCOSE reference range rajqnukxx15/02/2018. 05-Fsd-149297:01 Hemoglobin A1c Comments: [facility] [address] [place], [place], [address] HGB A1C 5.8 % (Normal) Range: 4.2-6.3 :12 CBC W/Diff, Automated Comments: [facility] [address] [place], [place], [address] Absolute Lymph 1.51 {X10_3/ul} (Normal) Range: 0.83-4.51 [...] 4.6-6.2 WBC 5.2 K/mm3 (Normal) Range: 4.4-11.0 83-Jmo-43508:12 Comprehensive Metabolic Profil Comments: [facility] [address] [place], [address] GAP 6 (Normal) Range: 5-15 CO2 30.0 [...] 7-18 GLU 96 mg/dL (Normal) Range: 70-110 70-Liv-343173:11 Pathology Report Comments: PERFORMED BY: ChairishCYT [facility] Cyto Vmdoa77764 [facility] [id number] BY: [facility] Dermatopathology Lmrlnmd124 [facility] 3APsychiatric [id number] Information: [id number] See MATER Comments: Material submitted: .RIGHT LOWER [...] CASSETTE(S) A./LMSLMS/LMSPatho logist provided ICD-10:L82.1, L44.9, I87.9CPT .117403 1-Rvh-746364:42 CBC W/Diff, Automated Comments: DR SANTOS ORDERED CMP CBCDDR SANKET ORDERED A1C LIPID CMP LOREN CBCD TSH [facility] [address] [place], [address] Absolute Lymph 2.23 {X10_3/ul} (Normal) Range: 0.83-4.51 [...] 4.6-6.2 WBC 7.4 K/mm3 (Normal) Range: 4.4-11.0 9-Haw-477565:42 Comprehensive Metabolic Profil Comments: DR SANTOS ORDERED CMP CBCDDR SANKET ORDERED A1C LIPID CMP LOREN CBCD TSH [facility] [address] [place], [address] GAP 9 (Normal) Range: 5-15 CO2 26.0 [...] 7-18 GLU 93 mg/dL (Normal) Range: 70-110 0-Fox-922687:42 Hemoglobin A1c Comments: DR SANTOS ORDERED CMP CBCDDR SANKET ORDERED A1C LIPID CMP [facility] CBCD [facility] [address] [place], [place], [address] HGB A1C 6.0 % (Normal) Range: 4.2-6.3 5-Cui-926929:42 Lipid Profile Comments: DR SANTOS ORDERED CMP CBCDDR SANKET ORDERED A1C LIPID CMP LOREN CBCD [facility] [address] [place], [place], [address] VLDL 14 mg/dL (Normal) Range: 5-40 LDL [...] mg/dL Borderline >240 mg/dL High Risk :42 Microalb:Creat Ratio,Random UR Comments: DR SANTOS ORDERED CMP CBCDDR SANKET ORDERED A1C LIPID CMP LOREN CBCD TSH [facility] [address]yz[address] [place], [place], [address] MALB:CREAT Test not performed {mg/g_CRE} (Normal) MICROALBUMIN,UR < 5.0 mg/L (Normal) UR CREAT 17.60 mg/dL (Normal) 5-Sza-489288:42 Thyroid Stim Hormone (TSH) Comments: DR SANTOS ORDERED [facility] CBCDDR SANKET ORDERED A1C LIPID CMP LOREN CBCD TSH [facility] [address]ls[address] [place], [place], [address] TSH 1.18 {uIU/mL} (Normal) Range: 0.358-3.74 4-Uzl-967170:42 Urinalysis, Complete Comments: DR SANTOS ORDERED [facility] CBCDDR SANKET ORDERED A1C LIPID CMP LOREN CBCD TSH UACHow was Urine Obtained? CLEAN [facility] [address]umw[address] [place], [place], [address] MUCUS, URINE 0 SEEN {/hpf} (Normal) BACTERIA [...] Yellow (Normal) :26 CBC W/Diff, Automated Comments: [facility] [address] [place], [place], [phone] Absolute Lymph 1.18 {X10_3/ul} (Normal) Range: 0.83-4.51 [...] Range: 4.4-11.0 :26 Comprehensive Metabolic Profil Comments: [facility] [address] [place], [place], [address] GAP 6 (Normal) Range: 5-15 CO2 31.0 [...] (Normal) Range: 70-110 :26 Hemoglobin A1c Comments: [facility] Zczentnndf7579 [facility] [place], [place], [address] HGB A1C 6.1 % (Normal) Range: 4.2-6.3 :26 Lipid Profile Comments: [facility] Cpytdadtjm4970 [facility] [place], [place], [address] VLDL 12 mg/dL (Normal) Range: 5-40 LDL [...] High Risk :26 Microalb:Creat Ratio,Random UR Comments: [facility] [address] [place], [place], [address] MALB:CREAT Test not performed {mg/g_CRE} (Normal) MICROALBUMIN,UR < 5.0 mg/L (Normal) UR CREAT 76.30 mg/dL (Normal) :26 Thyroid Stim Hormone (TSH) Comments: [facility] [address] [place], [place], [address] TSH 1.08 {uIU/mL} (Normal) Range: 0.358-3.74 :26 Urinalysis, Complete Comments: How was Urine Obtained? CLEAN [facility] [address] [place], [place], [address] MUCUS, URINE 0 SEEN {/hpf} (Normal) BACTERIA [...] Yellow (Normal) :26 Vitamin D,25 Hydroxy Comments: [facility] [address] [place], [address] Vitamin D 25-OH 44.6 ng/mL (Normal) Comments: Vitamin D 25(OH) Status Range Deficiency <20 ng/mL (50nmol/L) Insuffciency 20 - 30 ng/mL (50 - 75 nmol/L) Sufficiency 30 - 100 ng/mL (75 - 250 nmol/L) Toxicity >100 ng/mL (>250 nmol/L) 50-Zyg-260880:32 CBC W/Diff, Automated Comments: [facility] [address] [place], [address] Absolute Lymph 1.73 {X10_3/ul} (Normal) Range: 0.83-4.51 [...] 4.6-6.2 WBC 7.3 K/mm3 (Normal) Range: 4.4-11.0 :32 Comprehensive Metabolic Profil Comments: [facility] [address] [place], [place], [address] GAP 6 (Normal) Range: 5-15 CO2 30.0 [...] : Gastric Biopsy See Note (Normal) Comments: [facility] [address] [place], [address] 00 Comments: Patient: WILLA MORROW R : 1960 (55/M) Acct Num: [id number] Phys: Long Colmenares Unit Num: [id number] Loc: EN Specimen: [id number] Received: 04/26/16847 Spec Type: Gastric B x TISSUES TISSUES: COMMENT The results of immunohistochemistry for Helicobacter pylori will be reported separately ([id number]). GROSS DESCRIPTION Received is one container labele d with the patient's name and designated antrumbody biopsy. The specimen consists of multiple irregular fragments of light andrade soft tissue that in aggregate measure 0.5 x 0.3 x 0.1 cm. The specimen is totally submitted in one cassette. / TUYET:xochitl 04/26/16 TC:3 CPT: 64533 HEADER OPERATION: EGD PRE-OP DIAGNOSIS: Epigastric pain [...] file> : IMMUNOHISTOCHEMISTRY See Note (Normal) Comments: [facility] [address] [place], [address] 00 Comments: Patient: WILLA MORROW R : 1960 (55/M) Acct Num: [id number] Phys: Long Colmenares Unit Num: [id number] Loc: EN Specimen: [id number] Received: 04/27/161001 Spec Type: IMMUNO TISSUES TISSUES: SPECIMEN INFORMATION: Tissue Source: Antrum body biopsy Clinical Info: Epigastric pain Specimen Number: [id number] CPT code: 19011 METHODOLOGY: Deparaffiniz ed sections of prefer/formalin-fixed tissue [...] developed and their performance characteristics determined by [facility] Laboratory. They may not have been cleared or a pproved by the U.S. Food and Drug Administration. The FDA has determined that such clearance or approval is not necessary. INTERPRETATION: Antrum body biopsy: Negative for Helicobacter pylori or ganisms. SJ:xochitl 04/30/16 PHYSICIAN AND INSTITUTION [address] [address] Signed Cy Rdz 04/30/16 <signature on file> 51-Gly-399161:27 Hemoglobin A1c Comments: [facility] [address] [place], [place], [address] HGB A1C 5.8 % (Normal) Range: 4.2-6.3 :58 CBC W/Diff, Automated Comments: [facility] [address] [place], [place], [address] Absolute Lymph 1.42 {X10_3/ul} (Normal) Range: 0.83-4.51 [...] Range: 4.4-11.0 :58 Comprehensive Metabolic Profil Comments: [facility] [address] [place], [address] GAP 6 (Normal) Range: 5-15 CO2 30.0 [...] 7-18 GLU 99 mg/dL (Normal) Range: 70-110 76-Qzo-078017:00 Hemoglobin A1c Comments: [facility] [address] [place], [place], [address] HGB A1C 5.9 % (Normal) Range: 4.2-6.3 83-Knq-897423:02 CBC W/Diff, Automated Comments: DR SANTOS ORDERED CMP CBCDDR SANKET ORDERED LIPID TSH [facility] Xptikzpgjp8998 [address] [place], [place], [address] Absolute Lymph 1.32 {X10_3/ul} (Normal) Range: 0.83-4.51 [...] 4.6-6.2 WBC 7.8 K/mm3 (Normal) Range: 4.4-11.0 :02 Comprehensive Metabolic Profil Comments: DR SANTOS ORDERED CMP CBCDDR SANKET ORDERED LIPID TSH CBCD [facility] [facility] [address]vthfx[address] [place], [place], [address] GAP 6 (Normal) Range: 5-15 CO2 28.0 [...] 7-18 GLU 93 mg/dL (Normal) Range: 70-110 70-Nfi-069077:02 Lipid Profile Comments: DR SANTOS ORDERED CMP CBCDDR SANKET ORDERED LIPID TSH CBCD [facility] [facility] [address] [place], [address] VLDL 11 mg/dL (Normal) Range: [...] 200-240 mg/dL Borderline >240 mg/dL High Risk 06-Ypz-894086:02 Thyroid Stim Hormone (TSH) Comments: DR SANTOS ORDERED [facility] CBCDDR [facility] ORDERED LIPID TSH CBCD [facility] [facility] Pyvxpbtbyf[address] [place] [place], [address] TSH 0.80 {uIU/mL} (Normal) Range: 0.358-3.74 68-Cpa-619992:02 Vitamin D,25 Hydroxy Comments: DR SANTOS ORDERED [facility] CBCDDR [facility] ORDERED LIPID TSH CBCD [place] [facility] Rdgmvoowgs[address] [place], [address] Vitamin D 25-OH 50.7 ng/mL (Normal) Comments: Vitamin D 25(OH) Status Range Deficiency <20 ng/mL (50nmol/L) Insuffciency 20 - 30 ng/mL (50 - 75 nmol/L) Sufficiency 30 - 100 ng/mL (75 - 250 nmol/L) Toxicity >100 ng/mL (>250 nmol/L) :30 Hemoglobin A1c Comments: [facility] [address]jqe[address] [place], [address] HGB A1C 5.7 % (Normal) Range: 4.2-6.3 :30 Lipid Profile Comments: [facility] [address]ae[address] [place], [place], [address] VLDL 10 mg/dL (Normal) Range: 5-40 LDL [...] High Risk :30 Microalb:Creat Ratio,Random UR Comments: [facility] [address] [place] [address], [address] MALB:CREAT 3.7 {mg/g_CRE} (Normal) MICROALBUMIN,UR 6.1 mg/L (Normal) UR CREAT 163.00 mg/dL (Normal) :30 Thyroid Stim Hormone (TSH) Comments: [facility] [address] [place] [address], [address] TSH 1.14 {uIU/mL} (Normal) Range: 0.358-3.74 :30 Urinalysis, Complete Comments: How was Urine Obtained? CLEAN [facility] Z[address] [place] [address], [address] MUCUS, URINE RARE {/hpf} (Normal) BACTERIA [...] Yellow (Normal) :30 Vitamin D,25 Hydroxy Comments: [facility] [address]eepktj47[address] [facility] [address]. [place], [place], [address] Vitamin D 25-OH 46.5 ng/mL (Normal) Comments: Vitamin D 25(OH) Status Range Deficiency <20 ng/mL (50nmol/L) Insuffciency 20 - 30 ng/mL (50 - 75 nmol/L) Sufficiency 30 - 100 ng/mL (75 - 250 nmol/L) Toxicity >100 ng/mL (>250 nmol/L) 97-Nup-341234:29 CBC W/Diff, Automated Comments: [facility] [address]zy[address]jujji[address] [facility] [address] [place], [place], [address] Absolute Lymph 1.74 {X10_3/ul} (Normal) Range: 0.83-4.51 [...] 4.6-6.2 WBC 6.5 K/mm3 (Normal) Range: 4.4-11.0 93-Wju-836583:29 Comprehensive Metabolic Profil Comments: [facility] [address]oyq[address] [place], [place], [address] GAP 4 (Abnormal) Range: 5-15 CO2 31.0 [...] <126 mg/dLsuggests IMPAIRED HOMEOSTASIS per A.D.A. criteria. :01 CBC W/Diff, Automated Comments: [facility] [address]xwtrzxwxz8[address] [place], [place], [address] ; ordered by Max Absolute Lymph 1.83 [...] 4.6-6.2 WBC 5.7 K/mm3 (Normal) Range: 4.4-11.0 :01 Comprehensive Metabolic Profil Comments: [facility] [address] [place], [place], [address] GAP 5 (Normal) Range: 5-15 CO2 30.0 [...] 7-18 GLU 87 mg/dL (Normal) Range: 70-110 4-Axj-557920:24 Alanine Aminotransferas (SGPT) Comments: [facility] [address] [place], [address] ALT 33 U/L (Normal) Range: 12-78 3-Cat-235679:24 Albumin, Serum Comments: [address] [place], [address] ALB 3.6 g/dL (Normal) Range: 3.4-5.0 6-Ehz-366263:24 Alkaline Phosphatase Comments: [address] [place], [place], [address] ALK P 71 U/L (Normal) Range: 50-136 0-Rjd-723461:24 AST(SGOT) Comments: [facility] [address]mdc[address] [place], [address] AST 26 U/L (Normal) Range: 15-37 Comments: Slight Hemolysis, Result may be falsely increased. 2-Bxq-657851:24 Bilirubin, Total Comments: [place] [address] [address] [place], [address] T BILI 0.20 mg/dL (Normal) Range: 0.20-1.00 :24 BUN 17 mg/dL (Normal) Comments: [place] [address] [address] [place], [address] Range: 7-18 9-Rsk-809606:24 Calcium,Total Comments: [place] [address] [address] [place], [address] CA 8.3 mg/dL (Abnormal) Range: 8.5-10.1 0-Zvw-485672:24 CBC W/Diff, Automated Comments: [place] [address] [address] [place], [address] Absolute Lymph 1.86 {X10_3/ul} [...] K/mm3 (Normal) Range: 4.4-11.0 :24 Glucose Comments: [facility] [address]cle[address]ty[address] [place], [address] GLU 99 mg/dL (Normal) Range: 70-110 :24 Hepatitis C Antibodies Comments: [facility] (refer to report for specific site)refer to report for address and phone number; ordered by [facility] HEP C AB <0.1 {s/co_ratio} (Normal) Range: 0.0-0.9 Comments: Negative: < 0.8 Indeterminate: 0.8 - 0.9 Positive: > 0.9 In order to reduce the incidence of a false positive result, the CDC recommends that all s/co ratios between 1.0 and 10.9 be confirmed by a more specific supplemental or PCR testing. [facility] offers HCV Ab w/Reflex to Verification test #[id number]. :24 Lyme AB/Total Immuno Comments: [facility] (refer to report for specific site)refer to report for address and phone number LYME Comments: TEST RESULT LIMITSLyme, Total Ab Test/ReflexLyme IgG/IgM Ab <0.91 ISR 0.00 - 0.90 Negative <0.91 AB (Normal) Equivocal 0.91 - 1.09 Positive >1.09 TESTING PERFORMED [place] [facility] [address] RIGINAL REPORT ON FILE IN LAB CONTAINS ADDITIONAL TEST SITE INFORMATION. 6-Wco-773260:24 Protein Electroph, S Comments: [facility] (refer to report for specific site)refer to report for address and phone number NOTE: Comment (Normal) Comments: The SPE pattern appears essentially unremarkable. Evidenceof monoclonal protein is not apparent. INTERPRETATION Comment (Normal) Comments: Protein electrophoresis scan will follow via computer,mail, or account leader delivery. A/G RATIO 1.5 (Normal) Range: 0.7-2.0 GLOBULIN, TOTAL 2.6 g/dL (Normal) Range: 2.0-4.5 M-SPIKE (Normal) Comments: Not Observed GAMMA GLOBULIN 0.8 g/dL (Normal) Range: 0.5-1.6 BETA GLOBULIN 1.0 g/dL (Normal) Range: 0.6-1.3 ALPHA-2 GLOBUL 0.6 g/dL (Normal) Range: 0.4-1.2 ALPHA-1 GLOBUL 0.2 g/dL (Normal) Range: 0.1-0.4 ALBUMIN 3.9 g/dL (Normal) Range: 3.2-5.6 PROTEIN,TOTAL 6.5 g/dL (Normal) Range: 6.0-8.5 2-Azn-147912:24 Protein, Total Comments: [facility] [address] [place], [place], [address] A/G 1.1 {RATIO} (Normal) Range: 0.9-2.4 GLOB 3.3 g/dL (Normal) Range: 2.3-3.5 T PROT 6.9 g/dL (Normal) Range: 6.4-8.2 1-Dfk-576548:24 Serum Creatinine AND GFR Comments: [facility] [address] [place], [address] EST GFR - AA 96 mL/min (Normal) Comments: GFR Calc EST GFR 79 mL/min (Normal) Comments: Non- GFR Calc CREAT,SERUM 1.03 mg/dL (Normal) Range: 0.70-1.30 Comments: The validity of the calculated GFR AND GFRAA in patients over70 years has not been determined. Clinical correlation isessential. 7-Jee-679383:24 Thyroid Stim Hormone (TSH) Comments: [facility] [address] [place], [place], [address] TSH 1.34 {uIU/mL} (Normal) Range: 0.358-3.74 :24 Uric Acid Comments: [facility] [address] [place], [place], [address] URIC 4.7 mg/dL (Normal) Range: 3.5-7.2 81-Del-51530:19 CBC W/Diff, Automated Comments: [facility] [address] [place], [place], [address] Absolute Lymph 1.45 {X10_3/ul} (Normal) Range: 0.83-4.51 [...] 4.6-6.2 WBC 4.5 K/mm3 (Normal) Range: 4.4-11.0 25-Cpf-94707:19 Comprehensive Metabolic Comments: ORDERED PSA,CMP,CBCD,UACDR.TOM ORDERED CBCD,[facility] [address] [place], [address] Profil GAP 6 (Normal) Range: 5-15 CO2 [...] - Annual Screen Comments: ORDERED PSA,CMP,CBCD,UACDR.TOM ORDERED CBCD,[facility]Tr[facility] [address]ijtebjoc2845 [facility] [address] [place], [place], [address] PSA,TOT SCREEN 0.55 ng/mL (Normal) Range: 0.00-4.00 Comments: This test was performed using the TPSA assay method for [employer] chemistry system. Values obtained with differentassay methods cannot be used interchangably.When changing PSA assays in the course of monitoring apatient, additional sequential testing should be carriedout to confirm baseline values. :19 Urinalysis, Complete Comments: How was Urine Obtained? CLEAN CATCHTr[facility] [address]iwtulos1405 [facility] [place], [address] MUCUS, URINE 1+ {/hpf} (Normal) [...] :42 CBC W/Diff, Automated Comments: Test performed at:[facility] Wcqmymrptf3905 [facility] [address] [place], [place] [address] Absolute Lymph 1.96 {X10_3/ul} (Normal) Range: 0.83-4.51 [...] 4.6-6.2 WBC 6.0 K/mm3 (Normal) Range: 4.4-11.0 23-Moy-144428:42 Comprehensive Metabolic Profil Comments: Test performed at:[facility] [address] [place], [place] [address] ; handled by edmund SULLIVAN 4 (Abnormal) Range: 5-15 CO2 30.0 mmol/L [...] Comments: Please note revised CREATININE reference range bdoaxdycb46/22/2015. BUN 19 mg/dL (Abnormal) Range: 7-18 GLU 93 mg/dL (Normal) Range: 70-110 88-Lwx-436043:13 Liver Profile Comments: Test performed at:[facility] [address] [place] [id number] ; ordered by Dr. Milagros Dolan BILI 0.11 mg/dL (Normal) Range: 0.00-0.30 T BILI 0.30 mg/dL (Normal) Range: 0.00-4.00 ALT 34 U/L (Normal) Range: 12-78 ALK P 63 U/L (Normal) Range: 50-136 AST 27 U/L (Normal) Range: 15-37 GLOB 3.1 g/dL (Normal) Range: 2.7-4.2 ALB 3.8 g/dL (Normal) Range: 3.4-5.0 T PROT 6.9 g/dL (Normal) Range: 6.4-8.2 75-Xjw-379677:30 CBC W/Diff, Automated Comments: Test performed at:[facility] [address] [place] [address] Absolute Lymph 2.16 {X10_3/ul} (Normal) [...] 4.6-6.2 WBC 6.2 K/mm3 (Normal) Range: 4.4-11.0 73-Vzk-497385:30 Comprehensive Metabolic Profil Comments: Test performed at:[facility] [address]wfiws[address] [place], [place] [id number] ; handled by edmund GAP 3 (Abnormal) [...] 126 mg/dLsuggests DIABETES MELLITUS per A.D.A. criteria. 48-Elj-629971:16 Rapid Flu (18493 x 2) Influenza A Ag negative (Normal) 83-Fqd-461135:05 CBCD ALC 1.47 {X10_3/ul} (Normal) Range: 0.83-4.51 [...] 4.6-6.2 WBC 4.7 K/mm3 (Normal) Range: 4.4-11.0 : CMP GAP 5 (Normal) Range: 5-15 CO2 [...] performed using the TPSA assay method for the[employer]cube World[employer] chemistry system. Values obtained with differentassay methods cannot be used interchangably.When changing PSA assays in the course of monitoring apatient, additional sequential testing should be carriedout to confirm baseline values. :05 [facility] Comments: How was Urine Obtained? CLEAN CATCH [...] 4.6-6.2 WBC 5.3 K/mm3 (Normal) Range: 4.4-11.0 :41 CMP GAP 7 (Normal) Range: 5-15 CO2 [...] 7-18 GLU 93 mg/dL (Normal) Range: 70-110 :50 CBCD ANC 3.8 {X10_3/uL} (Normal) Range: 2.0-7.7 [...] 4.6-6.2 WBC 6.6 K/mm3 (Normal) Range: 4.4-11.0 :50 TSH 1.01 {uIU/mL} (Normal) Range: 0.358-3.74 :29 URINE YUE CULTURE-MALIA COL Comments: PATIENT NOT FASTINGPERFORMED BY: [facility] [id number] [facility] [id number] Information: SRC:UR [id number] COUNT ([id number]) Result 1 MUG (Normal) Comments: Mixed urogenital flora1,000 Colonies/mL Urine Culture,Comprehensive Final report (Normal) [id number] Urinalysis, Office (50030) UA - BILIRUBIN Large (Normal) UA - [...] K/mm3 (Normal) Range: 4.4-11.0 :53 CMP Comments: CIESA,ERIKA EXTRUSION MACHINE OPERATOR ORDERED CMP ONLY CO2 29.0 mmol/L (Normal) [...] mg/dL (Normal) Range: 70-110 :53 LIPID Comments: ERIKA URIARTE CNP ORDERED CMP ONLY VLDL 8 [...] CHOL 135 mg/dL (Normal) Comments: <200 mg/dL Tugqjkadi373-017 mg/dL Borderline>240 mg/dL High Risk :53 PSAD 0.56 ng/mL (Normal) Comments: ERIKA URIARTE EXTRUSION MACHINE OPERATOR ORDERED CMP ONLY Range: 0.0-4.0 Comments: This test was performed using the TPSA assay method for theCanoP chemistry system. Values obtained with differentassay methods cannot be used interchangably.When changing PSA assays in the course of monitoring apatient, additional sequential testing should be carriedout to confirm baseline values. 08-Dxc-03270:53 UA Comments: How was Urine Obtained? CLEAN CATCH BLUE 25 /ul (Abnormal) UOB Negative /ul (Normal) CATHERINE Negative (Normal) UROBU Normal mg/dL (Normal) uPROTU 15 mg/dL (Abnormal) YAZ 6.0 (Normal) Range: 5.0 - 8.0 SGU 1.025 (Normal) Range: 1.002-1.030 KETU Negative mg/dL (Normal) BILIU 3 mg/dL (Abnormal) GLUR Normal mg/dL (Normal) UCLAR Clear (Normal) UCOL Yellow (Normal) 33-Dyf-140694:20 KNEE 4 OR MORE VIEWS Radiology Report [...] harper M.D.September 23, 2012 at 2:44:59 PM [id number] Signed GP/GP If you are the referring physician and would like to consult with theradiologist who provided this interpretation, please lashonda Menjivar M.D. at [phone]. If this radiologist is unavailable, youwill be directed to another radiologist to assist. If you are a patient with a question regarding this report, emili la referring physician directly. Professional Interpretation Provided By: [employer], Phone , These documents contain legally protected [...] 09/23/12 1452 Sign by: Dagoberto Cox MD 68-Jwc-055465:19 Rapid Strep Test, Office (23613) Comments: neg Rapid Strep Test, Office Negative (Normal) 9-Gzb-906620:41 L/S SPINE,MIN 4 VIEWS Radiology Report See [...] Cox M.D.April 02, 2012 at 1:16:13 PM [id number] Signed GP/GP If you are th e referring physician and would like to consult with theradiologist who provided this interpretation, please contact Raj Menjivar at [phone]. If this radiologist is unavailable, youwill be directed to another radiologist to assist. If you are a patient with a question regarding this report, pleasecontactyour referring physician directly. Professional Interpretation Provided By: [employer], Phone , These documents contain legally [...] 04/02/12 1330 Sign by: Dagoberto Cox MD 29-Feb-20126:18 CBCMD ANC 2.2 3/uL (Normal) Range: 2.0-7.7 [...] 6 mg/dL (Abnormal) Comments: DUE TO A BRAND DIRECTOR'S BACKORDER OF THE ICTOTEST TEST, URINE BILIRUBIN COMFIRMATORY TESTING FOR ALL POSITIVERESULTS WILL BE SUSPENDED. TESTING WILL RESUME WHEN THEICTOTEST TEST IS AVAILABLE. GLUR Normal mg/dL (Normal) UCLAR Cloudy (Normal) UCOL Yellow (Normal) 98-Xfv-20065:30 YUE CULTURE-OTHER (31143) Comments: PATIENT NOT FASTINGPERFORMED BY: [facility] Caoglw7148 [facility] [id number] Information: SRC:THRT [id number] Result 1 MORACA (Normal) Comments: Moraxella (branhamella) [...] D deficiency has been defined by the [place] [facility] and an Endocrine Society practice guideline as alevel of serum 25-OH vitamin D less than 20 ng/mL (1,2).The Endocrine Society went on to further define vitamin Dinsufficiency as a level between 21 and 29 ng/mL (2).1. IOM ([place] [employer]). 2010. Dietary reference intakes for calcium and D. [place]: The National Academies Press.2. Cesario MF, Dylan [place], Darling SCHERER, et al. Evaluation, treatment, and prevention of vitamin D deficiency: an Endocrine Society clinical practice guideline. JCEM. 2010; 96(7): 1911-30.Performed at: - [facility] [id number] Director: Concha Jarrell MD, Phone: [phone] :[phone] YUE CULTURE-OTHER (98999) Comments: PATIENT NOT FASTINGPERFORMED BY: [facility] [id number] Information: SRC:THRT [id number] Result 1 RRF (Normal) Comments: Routine respiratory hernán Upper Respiratory Culture Final report (Normal) :41 Rapid Strep Test, Office (48237) Rapid Strep Test, Office Negative (Normal) :55 [...] 4.6-6.2 WBC 4.4 K/mm3 (Normal) Range: 4.4-11.0 88-Faj-93047:03 FERRITIN 48 ng/mL (Normal) Range: 26-388 :03 IRON 63 ug/dL (Abnormal) Range: 65-175 Comments: ADDENDA: appt 06/19/10:03 PSA, SCREEN 0.6 ng/mL (Normal) Comments: appt 07/19/10 Range: 0.0-4.0 :03 TIBC 320 ug/dL (Normal) Range: 250-450 :03 VIT D,25 03914 45.7 ng/mL (Normal) Range: 32.0-100.0 Comments: Recent studies consider the lower limit of 32.0 ng/mL to jennifer threshold for optimal health.Remigio GIBSON. J Nutr. 2004;135(2):317-22.Performed at: [facility] [address] [id number]Lab Director: Concha Jarrell MD, Phone: [phone] :[phone] FECAL OCCULT- Tubes sent home (97935) FECAL OCCULT HGB ASSAY, Negative (Normal) QUAL, [...] 11.6-14.6 WBC 4.7 K/mm3 (Normal) Range: 4.4-11.0 8-Hmg-921606:04 COMP METABOLIC GAP 6 (Normal) Range: 5-15 [...] 6.4-8.2 GLU 92 mg/dL (Normal) Range: 70-110 2-Ssn-880356:04 D BILI 0.14 mg/dL (Normal) Range: 0.00-0.30 :17 RIBS UNIL 2V NO CXR Radiology Report See Note (Normal) Comments: Exam Number: [id number] CLINICAL:This is a 49-year-old male patient with [...] Report See Note (Normal) Comments: Exam Number: [id number] CLINICAL:This is a 49-year-old male patient with [...] a benigngranuloma.No pneumothorax. Reported By: DAGOBERTO COX :15 ABDOMEN COMPLETE US (HP) Radiology Report See Note (Normal) Comments: Exam Number: [id number] CLINICAL:This is a 49-year-old male patient with [...] Reported By: DAGOBERTO COX 29-Sep-20098:37 Urinalysis, Office (47824) UA - LEUKOCYTE ESTERASE Negative (Normal) UA - NITRITE Negative (Normal) URINE UROBILINGN MALIA TIMED Normal mg/dL (Normal) UA - PROTEIN Negative mg/dL (Normal) UA - PH 7.0 (Normal) UA - BLOOD Negative (Normal) UA - SPECIFIC GRAVITY 1.015 (Normal) UA - KETONES Negative mg/dL (Normal) UA - BILIRUBIN Large (Normal) UA - GLUCOSE Negative (Normal) :09 Urinalysis, Office (56297) UA - LEUKOCYTE ESTERASE Negative (Normal) UA [...] 0.5 ng/mL (Normal) Range: 0.0-4.0 :08 THERESA-D 672659 THERESA-DIRECT SeeNote (Normal) Comments: Result: Negative :08 ANTI-CCP 594921 4 {units} (Normal) Range: 0-19 Comments: Negative [...] (Normal) GLU 88 mg/dL (Normal) Range: 70-110 49-Wyp-33737:08 COMPLETE UA BACTERIA 0 SEEN {/hpf} (Normal) [...] 1.002-1.030 CLARITY CLEAR (Normal) COLOR YELLOW (Normal) : ESR SED RATE 5 mm/h (Normal) Range: 0-20 : HB CORE [id number] SeeNote (Normal) Comments: Result: NegativePerformed At: [facility] Gmoeso7576 [place], [place] [id number] At: [facility] [address] [id number] HBsAg 6510 HB SURF AG 6510 SeeNote (Normal) Comments: Result: Negative HEBSAB 6395 < 0.1 (Normal) Range: 0.00-0.99 Comments: Status of Immunity Anti-HBs Level Inconsistent with Immunity 0.00 - 0.99Consistent with Immunity >0.99.An Index Value of 1.00 is equivalent to 10 mIU/mL.However the magnitude of the Index Value is notindicative of the total amount of antibody present. HEP C AB 369071 0.1 (Normal) Range: 0.0-0.9 Comments: Negative: < 0.8Indeterminate 0.8 - 0.9Positive: > 0.9.In order to reduce the incidence of a false positiveresult, the CDC recommends that all s/co ratiosbetween 1.0 and 10.9 be confirmed with additionalRIBA or PCR testing. : RHEUMATOID FAC 12.7 {IU/mL} (Normal) : VIT D,25 02177 33.7 ng/mL (Normal) Range: 32.0-100.0 Comments: Recent studies consider the lower limit of 32.0 ng/mL to jennifer threshold for optimal health.Remigio GIBSON. J Nutr. 2005 Mar;135(2):317-22. 40-Yta-22080:15 5-HIAA U24 4069 5-HIAA,U24 4.7 {mg/24_hr} (Normal) Range: 0.0-14.9 5-HIAA,UR 2.6 mg/L (Normal) :15 THERESA-D 624929 THERESA-DIRECT SeeNote (Normal) Comments: Result: Negative Performed At: [facility] [id number] At: [facility] Prbiov[address] [place], [place] [id number] :15 BMP BUN 21 mg/dL (Abnormal) Range: [...] Range: 65-610 {ug/24_hr} Comments: TESTING PERFORMED AT [facility]. ORIGINAL REPORT ON FILE IN LAB CONTAINS [...] RHEUMATOID FAC 19.5 {IU/mL} (Abnormal) :15 SJOGREN [id number] Anti-SS-A < 0.2 {AI} (Normal) Range: 0.0-0.9 [...] 47-70 WBC 6.5 K/mm3 (Normal) Range: 4.4-11.0 :19 COMP METABOLIC A/G 1.2 {RATIO} (Normal) Range: [...] T PROT 7.4 g/dL (Normal) Range: 6.4-8.2 22-Yeh-640607:19 COMPLETE UA BACTERIA 0 SEEN {/hpf} (Normal) [...] Range: 0.358-3.74 :21 Rapid Strep Test, Office (65726) Rapid Strep Test, Office Negative (Normal) Comments: [...] Report See Note (Normal) Comments: Exam Number: [id number] MAMMOGRAM, BILATERAL DIAGNOSTIC DIGITAL AND CAD HISTORYPatient [...] these results has been [facility] ient. This interpretation was rendered by a radiologist certified under theMammography Quality Standards Act of 1992 (MQSA). The mammograms werealso examined with computer-aided detection software ([employer], [employer].). Reported By: JUMANA VIDALES M.D. :32 SPINE, THORACIC (ROUTINE) Radiology Report See Note (Normal) Comments: Exam Number: [id number] MRI THORACIC SPINE. CLINICAL STATEMENTThoracic pain, paresthesia. [...] Report See Note (Normal) Comments: Exam Number: [id number] MRI CERVICAL SPINE CLINICAL STATEMENTNeck pain, paresthesia. [...] and TIBC Comments: PATIENT NOT FASTINGPERFORMED BY: [facility] [id number] Iron Bind.Cap.(TIBC) 333 ug/dL (Normal) Range: 250-450 Iron Saturation 18 % (Normal) Range: 15-55 Iron, Serum 61 ug/dL (Normal) Range: 40-155 UIBC 272 ug/dL (Normal) Range: 150-375 LDH 227 [iU]/L (Normal) Comments: PATIENT NOT FASTINGPERFORMED BY: [address] [id number] :51 Range: 100-250 Reticulocyte Count 1.2 % (Normal) Comments: PATIENT NOT FASTINGPERFORMED BY: [address] [id number] :51 Range: 0.5-3.0 Vitamin B12 672 pg/mL (Normal) Comments: PATIENT NOT FASTINGPERFORMED BY: [address] [id number] :51 Range: 211-911 :51 FOLIC ACID SERUM (01611) Comments: PATIENT NOT FASTINGPERFORMED BY: [address] [id number] Folate (Folic Acid), Serum 20.1 ng/mL (Normal) Comments: Indeterminate: 3.4 - 5.4 Deficient: <3.4 :51 FERRITIN (68656) Comments: PATIENT NOT FASTINGPERFORMED BY: [address] [id number] Ferritin, Serum 53 ng/mL (Normal) Range: 22-322 [...] was performed using the TPSA method for [employer] chemistry system.Values obtained with different assay methods cannot be usedinterchangably.When changing PSA assays in the course of monito ring apatient, additional sequential testing should be carriedout to confirm baseline values. :18 TSH 0.84 {uIU/mL} (Normal) Range: 0.34-4.82 :26 GALLBLADDER Radiology Report See Note (Normal) Comments: Exam Number: [id number] GALLBLADDER ULTRASOUND HISTORYChest pain. High resolution real [...] Report See Note (Normal) Comments: Exam Number: [id number] MYOCARDIAL PERFUSION SCAN 14.2 millicuries of Tc99m [...] Report See Note (Normal) Comments: Exam Number: [id number] MR ANGIOGRAM OF BRAIN CLINICAL STATEMENTHeadache, cephalgia. Tingling sensation. TECHNIQUE Noncontrast 3-D romn-ns-hnqkms MRA. FINDINGSNo MRA evidence of aneurysm or atheros clerotic stenosis of the circleof Jordan or intracranial vertebrobasilar artery system is seen. IMPRESSIONNormal MRA of the parasellar region. MRI OF BRAIN CLINICAL STATEMENT Cephalgia. Paresthesia. Stroke. TECHNIQUEAfter obtaining T1 weighted sagittal acrobatic dancer scan, T1, proton density,T2 weighted, and FLAIR [...] Report See Note (Normal) Comments: Exam Number: [id number] MR ANGIOGRAM OF BRAIN CLINICAL STATEMENTHeadache, cephalgia. Tingling sensation. TECHNIQUE Noncontrast 3-D qbax-nd-benyym MRA. FINDINGSNo MRA evidence of aneurysm or atheros clerotic stenosis of the circleof Jordan or intracranial vertebrobasilar artery system is seen. IMPRESSIONNormal MRA of the parasellar region. MRI OF BRAIN CLINICAL STATEMENT Cephalgia. Paresthesia. Stroke. TECHNIQUEAfter obtaining T1 weighted sagittal acrobatic dancer scan, T1, proton density,T2 weighted, and FLAIR [...] 500 mg/dL VLDL 9 mg/dL (Normal) Range: 40 :22 C-REACTIVE PROT 4.88 mg/L (Normal) Range: [...] pain, unspecified chronicity 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 Automation And Controls Manager Letter Indication: Rheumatoid arthritis Hypertension : Diet, [...] Indication: Rheumatoid arthritis 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 Automation And Controls Manager Letter Indication: Rheumatoid arthritis Abnormal glucose tolerance [...] Indication: Vitamin D deficiency Asthma : Reviewed Automation And Controls Manager Letter- just had spiromety done Indication: Asthma [...] tolerance test (GTT)) 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 Automation And Controls Manager Letter Indication: Rheumatoid arthritis Hypertension : Reviewed [...] Indication: Rheumatoid arthritis 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 Automation And Controls Manager Letter- dr De Indication: Rheumatoid arthritis Itching [...] Other anxiety states Planned Observations HGB A1C (39085)Indication: Abnormal glucose tolerance test (Renamed from Abnormal glucose tolerance test (GTT)) On: 28-Feb-2018 Request Comments: standing order for q4mo for one yr HGB A1C (24972)Indication: Abnormal glucose tolerance test (Renamed from Abnormal glucose tolerance test (GTT)) On: 29-Nov-2017 Request CALCIFIDIOL (66148) VIT D 25Indication: Vitamin D deficiency On: :51 Request TSH (18638)Indication: Abnormal glucose tolerance test (Renamed from Abnormal glucose tolerance test (GTT)) On: :51 Request URINALYSIS, W/ MICRO (91608)Indication: Abnormal glucose tolerance test (Renamed from Abnormal glucose tolerance test (GTT)) On: :51 Request MICROALBUMIN: CREATININE RATIO (16308) AND (37211)Indication: Abnormal glucose tolerance test (Renamed from Abnormal glucose tolerance test (GTT)) On: :51 Request METABOLIC PANEL, COMPREHENSIVE (86306)Indication: Abnormal glucose tolerance test (Renamed from Abnormal glucose tolerance test (GTT)) On: :51 Request LIPOPROTEIN, BLD, BY NMR (02155)Indication: Abnormal glucose tolerance test (Renamed from Abnormal glucose tolerance test (GTT)) On: :51 Request CBC W/AUTO DIFF WBC (48644)Indication: Abnormal glucose tolerance test (Renamed from Abnormal glucose tolerance test (GTT)) On: 32-Pmz-44545:51 Request HGB A1C (29080)Indication: Abnormal glucose tolerance test (Renamed from Abnormal glucose tolerance test (GTT)) On: 31-Oct-2017 Request Comments: standing order for q4mo for one yr HGB A1C (70193)Indication: Abnormal glucose tolerance test (Renamed from Abnormal glucose tolerance test (GTT)) On: 01-Aug-2017 Request HGB A1C (81376)Indication: Abnormal glucose tolerance test (Renamed from Abnormal glucose tolerance test (GTT)) On: 03-Jul-20178:49 Request Comments: standing order for q4mo for one yr HGB A1C (15983)Indication: Abnormal glucose tolerance test (Renamed from Abnormal glucose tolerance test (GTT)) On: 6-Guk-290181:10 Request CALCIFIDIOL (03878) VIT D 25Indication: Vitamin D deficiency On: :29 Request TSH (30227)Indication: Abnormal glucose tolerance test (Renamed from Abnormal glucose tolerance test (GTT)) On: : Request URINALYSIS, W/ MICRO (12999)Indication: Abnormal glucose tolerance test (Renamed from Abnormal glucose tolerance test (GTT)) On: : Request MICROALBUMIN: CREATININE RATIO (82400) AND (60760)Indication: Abnormal glucose tolerance test (Renamed from Abnormal glucose tolerance test (GTT)) On: : Request METABOLIC PANEL, COMPREHENSIVE (34380)Indication: Abnormal glucose tolerance test (Renamed from Abnormal glucose tolerance test (GTT)) On: : Request LIPID PANEL (35394)Indication: Abnormal glucose tolerance test (Renamed from Abnormal glucose tolerance test (GTT)) On: : Request CBC W/AUTO DIFF WBC (20999)Indication: Abnormal glucose tolerance test (Renamed from Abnormal glucose tolerance test (GTT)) On: :28 Request HGB A1C (29797)Indication: Abnormal glucose tolerance test (Renamed from Abnormal glucose tolerance test (GTT)) On: 53-Fpy-778566:04 Request HGB A1C (12862)Indication: Abnormal glucose tolerance test (Renamed from Abnormal glucose tolerance test (GTT)) On: 23-Qam-074117:35 Request HGB A1C (25639)Indication: Abnormal glucose tolerance test (Renamed from Abnormal glucose tolerance test (GTT)) On: 8-Oum-578814:45 Request CALCIFIDIOL (27770) VIT D 25Indication: Vitamin D deficiency On: 6-Wyp-092051:51 Request HGB A1C (66216)Indication: Abnormal glucose tolerance test (Renamed from Abnormal glucose tolerance test (GTT)) On: :50 Request TSH (29852)Indication: Abnormal glucose tolerance test (Renamed from Abnormal glucose tolerance test (GTT)) On: :50 Request URINALYSIS, W/ MICRO (32580)Indication: Abnormal glucose tolerance test (Renamed from Abnormal glucose tolerance test (GTT)) On: :50 Request MICROALBUMIN: CREATININE RATIO (41974) AND (75797)Indication: Abnormal glucose tolerance test (Renamed from Abnormal glucose tolerance test (GTT)) On: :50 Request METABOLIC PANEL, COMPREHENSIVE (01869)Indication: Abnormal glucose tolerance test (Renamed from Abnormal glucose tolerance test (GTT)) On: :50 Request LIPID PANEL (53884)Indication: Abnormal glucose tolerance test (Renamed from Abnormal glucose tolerance test (GTT)) On: :50 Request CBC W/AUTO DIFF WBC (59827)Indication: Abnormal glucose tolerance test (Renamed from Abnormal glucose tolerance test (GTT)) On: :50 Request HGB A1C (81111)Indication: Abnormal glucose tolerance test (Renamed from Abnormal glucose tolerance test (GTT)) On: 56-Xlc-766194:11 Request HGB A1C (66809)Indication: Abnormal glucose tolerance test (Renamed from Abnormal glucose tolerance test (GTT)) On: :32 Request Lipid Panel (64331)Indication: Abnormal glucose tolerance test (Renamed from Abnormal glucose tolerance test (GTT)) On: :55 Request TSH (22822)Indication: Neck pain On: :54 Request CBC, Platelets & Auto Diff (57727)Indication: Hypertension On: :54 Request Metabolic Panel, Comprehensive (86413)Indication: Hypertension On: :54 Request CALCIFEDIOL (56610)Indication: Vitamin D deficiency On: :53 Request HGB A1C (75761)Indication: Hyperglycemia On: :49 Request TSH (17129)Indication: Other anxiety states On: :45 Request FECAL OCCULT- Tubes sent home (24035)Indication: Encounter for screening for malignant neoplasm of colon (Renamed from Special screening for malignant neoplasms, colon) On: :43 Request CALCIFIDIOL (88653) VIT D 25Indication: Vitamin D deficiency On: :43 Request URINALYSIS, W/ MICRO (02029)Indication: Hypertension On: :32 Request MICROALBUMIN: CREATININE RATIO (25327) AND (21883)Indication: Hypertension On: :32 Request LIPID PANEL (42060)Indication: Hypertension On: : Request Urinalysis, Office (71511)Indication: Abnormal urine On: :12 Request URINE YUE CULTURE (MALIA COL COUNT) (91508)Indication: Abnormal urine On: :12 Request PSA (PROSTATE SPECIFIC ANTIGEN) (V76.44)Indication: Screening for prostate cancer On: :14 Request URINALYSIS, W/ MICRO (54882)Indication: Hypertension On: :14 Request CBC W/AUTO DIFF WBC (33938)Indication: Hypertension On: :14 Request METABOLIC PANEL, COMPREHENSIVE (22165)Indication: Hypertension On: :14 Request URINE YUE CULTURE-IDENTIFICATN (62288)Indication: Abnormal urine On: :38 Request PSA (PROSTATE SPECIFIC ANTIGEN) (V76.44)Indication: Screening for prostate cancer On: 04-Uny-935389:03 Request URINALYSIS, W/ MICRO (21704)Indication: Hypertension On: :02 Request CBC WITH MANUAL DIFF (10521)Indication: Hypertension On: :02 Request METABOLIC PANEL, COMPREHENSIVE (89090)Indication: Hypertension On: 73-Gcp-332411:02 Request TSH (01329)Indication: SYMPTOMS INVOLVING SKIN AND OTHER INTEGUMENTARY TISSUE, FLUSHING On: 16-Kjf-131422:25 Request CBC WITH MANUAL DIFF (36995)Indication: SYMPTOMS INVOLVING SKIN AND OTHER INTEGUMENTARY TISSUE, FLUSHING On: 94-Etv-494920:25 Request CBC WITH MANUAL DIFF (25554)Indication: SYMPTOMS INVOLVING SKIN AND OTHER INTEGUMENTARY TISSUE, FLUSHING On: 61-Sck-696742:35 Request TSH (72456)Indication: SYMPTOMS INVOLVING SKIN AND OTHER INTEGUMENTARY TISSUE, FLUSHING On: 90-Swl-881258:35 Request SEROTONIN (12928)Indication: SYMPTOMS INVOLVING SKIN AND OTHER INTEGUMENTARY TISSUE, FLUSHING On: :34 Request METANEPHRINES - URINE (43247)Indication: SYMPTOMS INVOLVING SKIN AND OTHER INTEGUMENTARY TISSUE, FLUSHING On: :34 Request CATECHOLAMINES TOTAL, URINE (77306)Indication: SYMPTOMS INVOLVING SKIN AND OTHER INTEGUMENTARY TISSUE, FLUSHING On: :34 Request URINE VMA (84024)Indication: SYMPTOMS INVOLVING SKIN AND OTHER INTEGUMENTARY TISSUE, FLUSHING On: :34 Request PSA (PROSTATE SPECIFIC ANTIGEN) (02395)Indication: Screening for prostate cancer On: 0-Jby-933068:57 Request Metabolic Panel, Comprehensive (05991)Indication: Hypertension On: :56 Request CBC with manual diff (76528)Indication: Hypertension On: :56 Request URINALYSIS (94505)Indication: Hypertension On: :56 Request Lipid Panel (78709)Indication: SCREENING FOR HYPERLIPIDEMIA On: :56 Request Metabolic Panel, Comprehensive (18702)Indication: Hypertension On: 1-Trf-672797:56 Request Comments: to be done in 1-2 weeks YUE CULTURE-OTHER (70225)Indication: Pharyngitis, acute On: 00-Jom-261151:19 Request Rapid Strep Test, Office (68815)Indication: Pharyngitis, acute On: 97-Xbc-838440:38 Request LIPID PANEL (84839)Indication: Hypertension On: :41 Request CBC WITH MANUAL DIFF (82562)Indication: Hypertension On: 4-Bbr-358244:41 Request METABOLIC PANEL, COMPREHENSIVE (82667)Indication: Hypertension On: 1-Bel-096713:41 Request URINALYSIS, W/ MICRO (86741)Indication: Abnormal urine On: 6-Xmu-571048:41 Request Vitamin D Hydroxy (46252)Indication: Paresthesia On: :55 Request URINALYSIS, W/ MICRO (22998)Indication: Hypertension On: :52 Request METABOLIC PANEL, COMPREHENSIVE (14204)Indication: Hypertension On: :52 Request LIPID PANEL (25459)Indication: Carotid stenosis On: 8-Fsq-863432:51 Request PSA (PROSTATE SPECIFIC ANTIGEN) (V76.44)Indication: Screening for prostate cancer On: :51 Request CBC WITH MANUAL DIFF (62563)Indication: Iron deficiency anemia, unspecified On: 5-Oiy-910194:51 Request CBC WITH MANUAL DIFF (94716)Indication: Iron deficiency anemia, unspecified On: 72-Irr-784734:11 Request IRON BINDING CAPACITY (TIBC) (12382)Indication: Iron deficiency anemia, unspecified On: 49-Jbr-851123:11 Request FERRITIN (48129)Indication: Iron deficiency anemia, unspecified On: 37-Dac-511044:11 Request IRON (99827)Indication: Iron deficiency anemia, unspecified On: 54-Ody-031018:11 Request CBC WITH MANUAL DIFF (76836)Indication: Iron deficiency anemia, unspecified On: :17 Request LIPID PANEL (59291)Indication: Hypertension On: :17 Request METABOLIC PANEL, COMPREHENSIVE (27052)Indication: Hypertension On: :17 Request IRON BINDING CAPACITY (TIBC) (39147)Indication: Iron deficiency anemia, unspecified On: 05-Lcw-216248:16 Request FERRITIN (16508)Indication: Iron deficiency anemia, unspecified On: 50-Dlm-762578:16 Request IRON (59470)Indication: Iron deficiency anemia, unspecified On: 16-Maz-326391:16 Request Vitamin D Hydroxy (15169)Indication: Rheumatoid arthritis On: :58 Request CBC WITH MANUAL DIFF (07810)Indication: Iron deficiency anemia, unspecified On: 71-Epn-810674:58 Request FERRITIN (66582)Indication: Iron deficiency anemia, unspecified On: 90-Tqy-037271:58 Request IRON BINDING CAPACITY (TIBC) (84280)Indication: Iron deficiency anemia, unspecified On: 45-Gkx-079816:58 Request IRON (42142)Indication: Iron deficiency anemia, unspecified On: 22-Qrn-099552:58 Request PSA (PROSTATE SPECIFIC ANTIGEN) (V76.44)Indication: Screening for prostate cancer On: 80-Nba-710383:48 Request FOLIC ACID SERUM (09962)Indication: Anemia NEC On: :40 Request VITAMIN B-12 (CYANOCOBALAMIN) (25840)Indication: Anemia NEC On: :40 Request RETICULOCYTE COUNT MANUL (36674)Indication: Anemia NEC On: :40 Request LDH (LD) (LACTATE DEHYDROGENASE) (19642)Indication: Anemia NEC On: :40 Request IRON BINDING CAPACITY (TIBC) (52742)Indication: Anemia NEC On: :40 Request FERRITIN (42564)Indication: Anemia NEC On: :40 Request IRON (13848)Indication: Anemia NEC On: :40 Request CBC, PLATELETS & AUT DIFF (62654)Indication: Anemia NEC On: :40 Request Metabolic Panel, Comprehensive (11200)Indication: Abdominal pain, acute, right upper quadrant On: :44 Request CBC with manual diff (69604)Indication: Abdominal pain, acute, right upper quadrant On: :43 Request HEPATIC FUNCTION PANEL (23800)Indication: Abdominal pain, acute, right upper quadrant On: :41 Request CBC WITH MANUAL DIFF (80715)Indication: Rheumatoid arthritis On: 16-Slh-263191:46 Request METABOLIC PANEL, COMPREHENSIVE ([id number])Indication: Hypertension On: 10-Ycu-654450:45 Request C-REACTIVE PROTEIN ([id number])Indication: Raynaud's syndrome On: 14-Mdp-584760:26 Request SED RATE ERYTHROCYTE ([id number])Indication: Raynaud's syndrome On: 31-Yaa-353236:26 Request RHEUMATOID FACTOR-QUANT ([id number])Indication: Raynaud's syndrome On: 53-Ysa-686133:26 Request THERESA (ANTINUCLEAR ANTIBODY) ([id number])Indication: Raynaud's syndrome On: 38-Dqr-110742:26 Request PSA (PROSTATE SPECIFIC ANTIGEN) (V76.44)Indication: Screening for prostate cancer On: 30-Orr-978884:47 Request URINALYSIS, W/ MICRO ([id number])Indication: Hypertension On: 79-Ici-652361:47 Request LIPID PANEL ([id number])Indication: Hypertension On: 04-Mpw-074501:46 Request TSH ([id number])Indication: Rash On: 41-Cfy-330971:46 Request METABOLIC PANEL, COMPREHENSIVE ([id number])Indication: Hypertension On: 41-Gem-333303:46 Request CBC WITH MANUAL DIFF ([id number])Indication: Hypertension On: :46 Request Metabolic Panel, Basic ([id number])Indication: Hypertension On: 0-Fhw-789562:11 Request HEPATIC FUNCTION PANEL ([id number])Indication: onychomycosis On: :27 Request Comments: q month for 2 months VITAMIN B-12 (CYANOCOBALAMIN) ([id number])Indication: Anemia, unspecified On: 66-Lnq-459235:24 Request RETICULOCYTE COUNT MANUL ([id number])Indication: Anemia, unspecified On: :24 Request LDH (LD) (LACTATE DEHYDROGENASE) ([id number])Indication: Anemia, unspecified On: 43-Jhg-048432:24 Request IRON BINDING CAPACITY (TIBC) ([id number])Indication: Anemia, unspecified On: :24 Request IRON ([id number])Indication: Anemia, unspecified On: 11-Vro-641858:24 Request CBC WITH MANUAL DIFF ([id number])Indication: Anemia, unspecified On: 0-Ick-198671:24 Request HEPATIC FUNCTION PANEL ([id number])Indication: onychomycosis On: 4-Pzn-904062:15 Request TSH ([id number])Indication: Hypertension On: 98-Grg-513788:15 Request LIPID PANEL ([id number])Indication: Hypertension On: 77-Iiv-357553:15 Request METABOLIC PANEL, COMPREHENSIVE ([id number])Indication: Hypertension On: 37-Yxv-133179:15 Request CBC WITH MANUAL DIFF ([id number])Indication: Hypertension On: 95-Ooe-662533:14 Request PSA (PROSTATE SPECIFIC ANTIGEN) (V76.44)Indication: Screening for prostate cancer On: 25-Cik-871995:12 Request PTT (Activated Partial Thromboplastin Time) ([id number])Indication: Paresthesia On: :52 Request PT (Prothrobim Time) ([id number])Indication: Paresthesia On: 27-Jzj-151651:52 Request TSH ([id number])Indication: Paresthesia On: 61-Iyb-114435:52 Request METABOLIC PANEL, COMPREHENSIVE ([id number])Indication: Paresthesia On: :52 Request CBC WITH MANUAL DIFF ([id number])Indication: Paresthesia On: 59-Pck-885784:52 Request VITAMIN B-12 (CYANOCOBALAMIN) ([id number])Indication: Paresthesia On: 83-Wqu-390597:52 Request C-REACTIVE PROTEIN ([id number])Indication: Hypertension On: 13-Azv-033975:04 Request LIPID PANEL ([id number])Indication: Hypertension On: 73-Xjb-593536:04 Request URINALYSIS W/O MICRO ([id number])Indication: Hypertension On: :02 Request TSH ([id number])Indication: Hypertension On: :02 Request CBC WITH MANUAL DIFF ([id number])Indication: Hypertension On: :02 Request METABOLIC PANEL, COMPREHENSIVE ([id number])Indication: Hypertension On: :02 Request URINALYSIS W/O MICRO ([id number])Indication: Proteinuria On: :02 Request Stool [place], Office ([id number])Indication: Encounter for screening for malignant neoplasm of rectum On: 89-Rva-184011:32 Request Planned Encounters Medical; 4 Month FU - On: 12-Mar-2018 8:00 [facility] Cari Portillo DO, DO, Kathleen Planned Procedures Spirometry ([id number])By: Sanket VOGEL, On: 06-Nov-2017 Intent Cari Encinas DO Comments: normal and not taking inhalers -- treating inhalers instead ELECTROCARDIOGRAM, COMPLETE (ECG) On: 06-Nov-2017 Intent ([id number])By: Cari Portillo DO Comments: nsr no acute chg -normal axis Cari Portillo DO Radiology - Knee - RightBy: Sanket On: 25-Sep-2017 Intent Cari VOGEL DO, Kathleen X-RAY OF FOOT, THREE VIEWS On: 25-Sep-2017 Intent ([id number])By: Cari Portillo DO Comments: right Cari Portillo DO ELECTROCARDIOGRAM, COMPLETE (ECG) On: 06-Aug-2016 Intent ([id number])By: Cari Portillo DO Comments: nsr no acute chg Cari Portillo DO Solu -Medrol Injection, 125 mg On: 20-Apr-2016 Intent ([id number])By: Cari Portillo DO Comments: Lot:[id number]:08/13Dose:125mgRoute:imSite:l hipGiven By:FRANKLIN signed Cari Portillo DO US DOPPLER CAROTID BILATERAL On: 02-Apr-2016 Intent ([id number])By: Cari Portillo DO, DO, Kathleen Radiology - Knee - LeftBy: Fast DO, On: 23-Mar-2015 Intent Kathie A Radiology - Ankle - LeftBy: Fast DO, On: 23-Mar-2015 Intent Kathie A Venous Doppler - LeftBy: Fast DO, On: 07-Feb-2015 Intent Kathie A Comments: leg Nerve ConductionBy: Mckinley DO Kathie A On: 07-Feb-2015 Intent Comments: both upper ext EMGBy: Mckinley DO Kathie A On: 07-Feb-2015 Intent Comments: both upper ext Cartoid DopplerBy: Mckinley VOGEL Kathie A On: 07-Jun-2014 Intent Solu -Medrol Injection, 125 mg On: 22-Feb-2014 Intent ([id number])By: Erika Uriarte CNP Comments: lot [id number] 3.13513 mgright gmIMas, STAFF COUNSELOR Aerosol Treatment ([id number])By: Laura On: 22-Feb-2014 Intent Erika CORONA Radiology - Shoulder - LeftBy: Fast On: 18-Jan-2014 Intent Kathie VOGEL Comments: and ac joint COMP EYE EXAMINATION, ESTAB PATIENT On: 19-Oct-2013 Intent ([id number])By: Erika Uriarte CNP Nerve ConductionBy: Mckinley DO Kathie A On: 24-Jun-2013 Intent Comments: bilateral lower EMGBy: Mckinley DO Kathie A On: 24-Jun-2013 Intent Comments: bilateral lower ext- right greater than left Eprescribed prescriptions ([id number])By: On: 24-Apr-2013 Intent Mckinley VOGEL Kathie A MRI - Lumbar SpineBy: Mckinley VOGEL Kathie On: 24-Apr-2013 Intent A MRI - Cervical SpineBy: Mckinley DO, On: 24-Apr-2013 Intent Kathie A ELECTROCARDIOGRAM, COMPLETE (ECG) On: 24-Apr-2013 Intent ([id number])By: Oscar Sen DOa A Comments: ekg showed normal sinus rhythym, normal axis, no acute st/t wave changes - early repolar Radiology - Cervical SpineBy: Fast On: 07-Jan-2013 Intent DO, Kathie A Eprescribed prescriptions ([id number])By: On: 07-Jan-2013 Intent Karyn Hunter PHYSICAL THERAPY EVALUATION On: 23-Sep-2012 Intent ([id number])By: Erika Uriarte CNP Radiology - Knee - LeftBy: Laura On: 23-Sep-2012 Intent Erika CORONA Comments: call with wet read to CIm Eprescribed prescriptions ([id number])By: On: 23-Sep-2012 Intent Laura CORONA Allyson SPECIMEN HNDLNG/TRNSPRT, OFFC > LAB On: 14-Jul-2012 Intent ([id number])By: Naye Crain LPN Eprescribed prescriptions ([id number])By: On: 03-Apr-2012 Intent Fast DO, Kathie A Radiology - Lumbar SpineBy: Fast DO, On: 02-Apr-2012 Intent Kathie A Eprescribed prescriptions ([id number])By: On: 03-Mar-2012 Intent Karyn Hunter SPECIMEN HNDLNG/TRNSPRT, OFFC > LAB On: 13-Feb-2012 Intent ([id number])By: Naye Crain LPN Cartodivya DopplerBy: Fast DO, Kathie A On: 31-Oct-2011 Intent Comments: nov Aerosol Treatment ([id number])By: Laura On: 04-May-2011 Intent CHLOE Allyson SPECIMEN HNDLNG/TRNSPRT, OFFC > LAB On: 04-May-2011 Intent ([id number])By: Naye Crain LPN Eprescribed prescriptions ([id number])By: On: 29-Jan-2011 Intent Fast DO, Kathie A FLU VAC, SPLIT, >3 YEARS, INTRAMUSC On: 29-Jan-2011 Intent ([id number])By: Karyn Hunter Comments: refuses TDAP VACCINE >7 IM ([id number])By: Al, On: 24-Oct-2010 Intent Rocío Comments: Lot:[id number]:11/15/12Amt:prefilledRoute:IMSite:right deltGiven By: STACIA Kimbrough Cartoid DopplerBy: Fast DO, Kathie A On: 24-Oct-2010 Intent EKG ([id number])By: Karyn Hunter On: 24-Oct-2010 Intent Comments: ekg showed normal sinus rhythym, normal axis, no acute st/t wave changes ivcd- early re[polar no change Ultrasound - Abdomen CompleteBy: On: 29-Sep-2009 Intent Erika Uriarte CNP Comments: today and call wet read DineshLaina Uriarte Pbqbtayza-Rll-Okkig ([id number])By: Laura On: 29-Sep-2009 Intent Erika CORONA Comments: today Radiology - ChestBy: Erika Uriarte CNP On: 29-Sep-2009 Intent Mickey Comments: AP and lateral today ELECTROCARDIOGRAM, COMPLETE (ECG) On: 30-Nov-2008 Intent ([id number])By: Erika Uriarte CNP Bio Z ([id number])By: Erika Uriarte CNP On: 30-Nov-2008 Intent Nerve ConductionBy: [...] DO, Kathie A On: 13-Jan-2007 Intent EKG ([id number])By: Fast DO, Kathie A On: 13-Jan-2007 Intent Comments: ekg showed normal sinus rhythym, normal axis, no acute st/t wave changes MRI - BrainBy: Fast DO, Kathie A On: 13-Jan-2007 Intent Comments: with mra of brain- due to headache Planned Medications INJECTION, METHYLPREDNISOLONE SODIUM SUCCINATE, UP TO 125 MG Ordered: 22-Feb-2014 Pending Erika Uriarte CNP INJECTION, METHYLPREDNISOLONE SODIUM SUCCINATE, UP [...] test (GTT)) : DISCONTINUED - HGB A1C ([id number]) Indication: Abnormal glucose tolerance test (Renamed from [...] Instructions Indication: Hypertension Encounters Office Visit On: 12-Feb-2018 8:05 Encounter Reason: Rash - Symptoms include pruritus and skin redness. Onset was 2 month(s) ago. Note for Rash: starts in the morning and subsides at bed time.Has itchiness around eyes, then whole body especially itchy a End: 12-Feb-2018 8:53 nd pins and needles has history of allergy, in past saw manager product was on allergy shots inpast. Also in [...] management- said he should go back to [facility]-- he said leg worse than the neck [...] he isnt biking like he was saw dorothysera about his hip she did xray- - [...] he would like t tryi [facility]crease in [facility] for pain- no gerd- and breathing has [...] patient feels well with minor complaints (Seen Erika for rib fracture on right side- still [...] is better with lyrica and etodolac from [facility] and thought he had rheumatoid- - [...] at changing cpap becuase has plastic and manager product think allergic to that-- color changes in [...] Diagnostic Procedure Results: em End: 20-Apr-2008 22:14 [facility] neg- thinks with cutting back caffeine the [...] of sexual dysfunction-- cervical disc disease-- saw Kristieer for this and needs referral to go back to him for this-- varicose veins-- [facility] Diagnosis: PARESTHESIA (782.0), Anxiety state, [...] he gets redness- he will call his manager product regarding this- he is following with Cristhiannaveed-- the leg and arm sx are coming [...] has been compliant with instructions. Current medication us End: 08-Feb-2006 9:37 e: experiencing side effects [...] note dictated [facility]
--- OUTSIDE RECORDS SUMMARY | 2018-05-20 21:58 | XMS RPT_ITS | Continuity of Care Document ---
:1960 Author Organization [facility] Address [address] [place] [address] Phone Care Team Providers Name Role Phone Cari Portillo DO Unavailable Andrea Garcia Unavailable Dr. Long Colmenares Unavailable [facility], [facility] Unavailable Dr. Fabio Robb Unavailable Dr. Markel Montes Unavailable Paco Schaffer Unavailable Axel SINGH, Graham Canales Unavailable Dr. Yariel Palmer Unavailable Ca Valenzuela Unavailable Fredi Perez Unavailable Kitty SINGH, Max Rodriguez Unavailable Rebekah Neff Unavailable [...] Quantity: 30 {Tablet} Refills: 3 Ordered:12-Feb-2018 Sharon Portillo DO, DO, Kathleen Start : 12-Feb-2018 Active Cymbalta 60 MG Oral Capsule Delayed Release Particles 1 (one) Capsule DR Part q am for 0 days Quantity: 90 {Capsule} Refills: 3 Ordered:03-Jul-2017 Sharon Portillo DO, DO, Kathleen Start : 03-Jul-2017 Active Flonase 50 MCG/ACT Nasal Suspension 2 (two) Puff(s) daily for 0 days Quantity: 1 {[place]} Refills: 0 Ordered:09-Oct-2017 Sharon Portillo DO, DO, Kathleen Start : 09-Oct-2017 Active FOLIC ACID, 1MG (Oral Tablet) 1 Tablet two times daily for 360 days Quantity: 30 {Tablet} Refills: 0 Ordered:02-Dec-2012 Laura CORONA Alylson Start : 02-Dec-2012 Active HYDROXYZINE HCL, 10MG [...] Quantity: 90 {Tablet} Refills: 3 Ordered:03-Jul-2017 Sanket VOGELSharon DO, Kathleen Start : 03-Jul-2017 Active SINGULAIR, 10MG (Oral Tablet) 1 tab daily (10 MG) Active Valium 5 MG Oral Tablet 1/2-1 Tablet Tablet bid prn muscle spasm for 0 days Quantity: 30 {Tablet} Refills: 0 Ordered:28-Mar-2016 Libby Rodriguez LPN Start : 28-Mar-2016 Active Comments:thirty Xyzal 5 MG Oral Tablet 1 Tablet qd for 90 days Quantity: 90 {Tablet} Refills: 3 Ordered:27-Feb-2017 SanketSharon huerta DO, DO, Kathleen Start : 27-Feb-2017 Active [...] 20 {Tablet} Refills: 0 Ordered:06-Nov-2017 Libby Rodriguez STACIA Start : 03-Jul-2017 End : 06-Nov-2017 Inactive [...] Quantity: 30 {Tablet} Refills: 0 Ordered:12-Feb-2018 Laura CORONAErika Start : 09-Oct-2017 End : 12-Feb-2018 Inactive Meloxicam 15 MG Oral Tablet 1 (one) Tablet Tablet qd with food for 0 days Quantity: 20 {Tablet} Refills: 0 Ordered:12-Feb-2018 Laura CORONA Erika Arevalo Start : 25-Sep-2017 End : 12-Feb-2018 Inactive MYCELEX, 10MG (Mouth/Throat Cat) 1 Cat 5 x daily for 10 days Quantity: 50 {Cat} Refills: 0 Ordered:04-May-2011 Laura CORONAErika Start : 04-May-2011 End : 14-May-2011 Inactive GIBRYEBB-ZLNEEYGAH-YHZHLMRB, 0.1% (Ophthalmic Suspension) apply ointment to each [...] Quantity: 90 {Tablet} Refills: 3 Ordered:09-Nov-2009 Mckinley VOGEL Kathie Canales Start : 09-Nov-2009 End : 09-Nov-2009 Discontinued HYDROCORTISONE VALERATE, 0.2% (External Cream) 1 Cream apply bid prn for 0 days Quantity: 60 {Cream} Refills: 1 Ordered:07-Jan-2013 Mckinley VOGEL Kathie Canales Start : 07-Jan-2013 End : 07-Jan-2013 Discontinued [...] Visit Report Result: Comments: See Note; NOTES: [place] [id number] OFFICE VISIT Date of Service: 01/18/18 MR#: [id number] Acct: [id number] Name: WILLA MORROW Rep # : [id number] : 1960 Provider: STARR Payne Age/Sex: 57/M Location[place] [facility] Status: Signed Intake Vital Signs01/18/18 Body Mass [...] 0 03/29/17 [History Confirmed 01/18/18] [facility] Medical History Diabetes (Acute) Hay fever (Acute) [...] Cardio Cardiology: Positive for excessive sweating ([facility]) and other (h/o [...] Endocrine: Positive for exc essive sweating (at [facility] x 2 nights); no fatigue, cold intolerance, flushing, heat intolerance or increased thirst/drinking Aller/Imm Allergy/Immunologic: No wheezing, itchy eyes (arms last 2 days), claude d intolerance, seasonal allergy symptoms or hives Du/Lymp Hematologic/Lymphatic: No easy bruising Exam Const General: cooperative, no acute distress Orientation: alert, oriented x3 [facility] Head: juanita l to inspection, normocephalic [...] <Electronicall y signed by Landy CLEMENTS> Date aLndy CLEMENTS Cosigner Signature: Date (if applicable) CC: 01-Nov-2017 PT D/C Summary (1) Result: Comments: See Note; NOTES: [facility] [address] [place] [address] Fax REHABILITATION SERVICES DISCHAR GE SUMMARY MR#: [id number] Acct: [id number] Name: WILLA MORROW Rep #: [id number] : 1960 57 From: Farrukh Mcleod DPT, OCS, CSCS Referring Dr.: Cari Portillo DO Status: REG R Insurance: [facility] SELF PAY INSURANCE HP - PT [...] feel free t o call me at [phone]. Thank you for the referral of this patient. Sincerely, Farrukh Mcleod DPT, OC <Electronically signed by Farrukh Mcleod DPT, JULIO, CSCS> 11/01/17 0645 CC: Cari Portillo DO EBG Signed 24-Oct-2017 Inital Evaluation (1) - PT Result: Comments: See Note; NOTES: [facility] [address] [place], [place] [address] Fax REHABILITATION SERVICES INITIAL EVALUATION MR#: [id number] Acct: [id number] Name: WILLA MORROW Rep #: [id number] : 1960 57 From: Farrukh Mcleod DPT, JULIO, CSCS Referring Dr.: Cari Portillo DO Status: REG RCR Insurance: [facility] [employer] SELF PAY INSURANCE Patient's Visit Information ED R ZENA is a 57 year old M referred [...] to be FAXED BACK to us at [phone] for Medicare purposes. Please let me know if there are questions or concerns regarding this plan of care. Physician Signature: Date: <Electronically signed by Farrukh Mcleod DPT, OCS, CSCS> 0932 CC: Cari Portillo DO EBG Signed For Medicare only, by signing this I certify the plan of care. Physicians Signature Date 25-Sep-2017 Foot min 3 Views Result: Comments: See Note; NOTES: [facility] Imaging Services [address] [place] [address] Foot min 3 Views MR#: [id number] Acct: [id number] Name: WILLA MORROW Rep #: [id number] : 1960 M 57 From: Davin Cárdenas MD PCP: Cari Portillo DO Status: REG CLI Study: Foot min 3 Views Date of Exam: 09/25/17 Exam# [id number] Ordering Dr: Cari Portillo DO STUDY: X-RAY [...] Service support , CC: Cari Portillo DO Machine Presser: Signed 25-Sep-2017 Knee 4 or More Views Result: Comments: See Note; NOTES: [facility] Imaging Services [address] [place] [address] Knee 4 or More Views MR#: [id number] Acct: [id number] Name: WILLA MORROW Rep #: [id number] : 1960 M 57 From: Davin Cárdenas MD PCP: Cari Portillo DO Status: REG CLI Study: Knee 4 or More Views Date of Exam: 09/25/17 Exam# [id number] Ordering Dr: Cari Portillo DO STUDY: X-RAY [...] Service support , CC: Cari Portillo DO Machine Presser: Signed 04-Jun-2017 Foot min 3 Views Result: Comments: See Note; NOTES: [facility] Imaging Services [address] [place] [address] Foot min 3 Views MR#: [id number] Acct: [id number] Name: WILLA MORROW Rep #: [id number] : 1960 M 56 From: Anuel Harrison MD PCP: Cari Portillo DO Status: REG CLI Study: Foot min 3 Views Date of Exam: 06/04/17 Exam# [id number] Ordering Dr: Ruchi Valenzuela STUDY: X-RAY - [...] Harrison MD at 23:13 EDT Te l [phone], Service support , CC: Cari Portillo DO; Ruchi Valenzuela DP Machine Presser: Signed 04-Jun-2017 Foot min 3 Views Result: Comments: See Note; NOTES: [facility] Imaging Services [address] [place] [address] Foot min 3 Views MR#: [id number] Acct: [id number] Name: WILLA MORROW Rep #: [id number] : 1960 M 56 From: Anuel Harrison MD PCP: Cari Portillo DO Status: REG CLI Study: Foot min 3 Views Date of Exam: 06/04/17 Exam# [id number] Ordering Dr: Ruchi Valenzuela STUDY: X-RAY - [...] CC: Cari Portillo DO; Ruchi Valenzuela DPM Machine Presser: Signed 29-Mar-2017 Urgent Care Visit Report Result: Comments: See Note; NOTES: [facility] [address] [place] [address] [address] [place] [address] OFFICE VISIT Date of Service: 03/29/17 MR#: [id number] Acct: [id number] Name: WILLA MORROW Rep # : [id number] : 1960 Provider: Antonio CLEMENTS Age/Sex: 56/M Location[place] [facility] Status: Signed Intake Vital Signs03/29/17 Height 5 [...] pattern Exam Const General: cooperative, healthy appearing [facility] Head: normal to inspection Ears: hearing [...] Operative Report Result: Comments: See Note; NOTES: [facility] Medical Records Department [address] [place] [address] Operative Report MR#: [id number] Acct: [id number] Name: WILLA MORROW Rep #: [id number] : 1960 55 From: Long Colmenares MD PCP: Cari Portillo DO Status: DEP I DATE OF SERVICE: PROCEDURE PERFORMED: Esophagogastroduodenoscopy with [...] Scope was withdrawn back in the [facility]. Retroflexion was performed. A view of the [...] Lashonda Bentley C: Cari Portillo DO T: [facility] JOB: [id number] 05/08/16 1409 <Electronically signed by Long Colmenares MD> Date Long Colmenares MD Cosigner Signature (If Indicated): Date CC: Cari Mcclellan; Long Colmenares Date Dictated: 04/26/16830 Date Transcribed: 04/26/16830 Machine Presser: Signed 18-Apr-2016 PT D/C Summary (1) Result: Comments: See Note; NOTES: [facility] [place] [address] Fax REHABILITATION SERVICES DISCHAR GE SUMMARY MR#: [id number] Acct: [id number] Name: WILLA MORROW Rep #: [id number] : 1960 55 From: Farrukh Mcleod DPT, OCS, CSCS Referring : Cari Portillo DO Status: REG RCR Insurance: [facility] HP - PT D/C Summary It [...] please feel free to call me at [phone]. Thank you for the referral of this patient. Sincerely, Farrukh Mcleod, PATRICK, OC <Electronically sign ed by Farrukh Mcleod DPT, OCS, CSCS> 04/18/16 0737 CC: Cari Portillo DO EBG Signed -Mar-2016 Inital Evaluation (1) - PT Result: Comments: See Note; NOTES: [facility] [address] [place] [address]. [address] [place], [place] [address] Fax REHABILITATION SERVICES INITIAL EVALUATION MR#: [id number] Acct: [id number] Name: WILLA MORROW Rep #: [id number] : 1960 55 From: Farrukh Mcleod DPT, OCS, CSCS Referring Dr.: Cari Portillo DO Status: REG RCR Insurance: [facility] Patient's Visit Information ED Cristian MORROW [...] to neck pain. Uses a Cpap. 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 No SCHERER and no [...] to be FAXED BACK to us at [phone] for Medicare purposes. Please let me know if there are questions or concerns regarding this suki n of care. Physician Signature: Date: <Electronically signed by Farrukh Mcleod DPT, OCS, CSCS> 03/30/16 0653 CC: Cari Portillo DO EBG Signed For Medicare only, by signing this I certify the plan of care. Physicians Signature Date 17-Aug-2015 Spirometry (23290) Result: 17-Aug-2015 ELECTROCARDIOGRAM, COMPLETE (ECG) (66202) Comments: sinus jermaine - no acute chg Result: [MEASUREMENTS ANALYSIS] Date of Test: 08/17/2015 10:09:13; Heart Rate: 56; NE Interval: 160; QRS: 108; QT Interval: 380; Corrected QT Interval (QTc): 373; P [place]: 41; QRS [place]: 38; T [place] : 32; Blood Pressure: 132/82 [ECG DIAGNOSTIC STATEMENTS] Date of Test: 08/17/2015 10:09:13; Summary: Sinus Bradycardia -Prominent R(V1) -nonspecific. BORDERLINE 13-Apr-2015 NCS and/or EMG Patient Result: Comments: See Note; NOTES: [facility] Pulmonary Services/Neurology [facility] [place] [address] NCS and/or EMG Patient MR#: [id number] Acct: [id number] Name: JOEY MCGRATH, R Rep #: [id number] : 1960 54 From: Quinn Wells Referring Dr: Kathie Sen DO Status: REG CLI Ordering Dr: Kathie eSn DO Date: 04/13/15 Location: [facility] Sex: M C DATE OF SERVICE: REFERRING [...] referral. Quinn Wells MD T: NTS JOB: [id number] 04/13/15 2257 <Electronically signed by Quinn Wells > Date Quinn Wells CC: Kathie Sen DO; QUINN Dolan ate Dictated: 04/13/15833 Date Transcribed: 04/13/15833 Machine Presser: Signed 12-Feb-2015 Sleep Study Report Result: Comments: See Note; NOTES: [facility]ORDER [facility] [address] [place] [address] Polysomnography with NCPAP MR#: [id number] Acct: [id number] Name: WILLA MORROW Rep #: [id number] : 1960 54 From: Danis Verdugo MD [...] Please note that a reference to [facility] AHI in this report is consistent with the current Hypopnea definition according to Medicare Criteria and an AAS AHI reference is consistent with the current Hypopnea definition according to the AASM criteria and is recognized by [facility] as the RDI. PROCEDURE: The study was attended continuously by a sound effects technician. Monitored parameters includ ed left and [...] body mass index of 45.8 and an [place] sleepiness scale score of 0. The patient [...] and Easy-Breathe on. Danis merida MD T: [facility] JOB: [id number] CC: Danis Verdugo MD 1503 1503 02/12/15 1012 <Electronically signed by Danis Verdugo MD> Date Danis Verdugo MD Co-signature (if applicable) Date Signed -Dec-2014 Carotid Duplex Ultrasound Result: Comments: See Note; NOTES: [facility] Cardiovascular Services [address] [place] [address] Carotid Duplex Ultrasound 01/05/15 1537 MR#: [id number] Acct: [id number] Name: WILLA MORROW Rep #: [id number] : 1960 54 From: Seven Allison MD [...] the left vertebral artery. Procedure Carotid Duplex 68900. Exam per formed in department. Interpretation Summary Mild (<50%) stenosis right extracranial internal carotid. Mild (<50%) stenosis left extracranial internal carotid. Flow within the verte bral arteries is antegrade bilaterally. Ordering Physician: Kathie Sen Referring Physician: Kathie Winter D.O. Performed By: Shari Salinas 01/12/15802 Date Seven Allison MD CC: Kathie Sen DO Date Dictated: 01/05/15 1537 Date Transcribed: 01/12/15802 Machine Presser: Signed 20-Oct-2014 Shoulder min 2 Views Result: Comments: See Note; NOTES: [facility] Imaging Services [address] [place] [address] Radiology Report MR#: [id number] Acct: [id number] Name: WILLA MORROW Rep #: [id number] : 1960 M 54 From: Chaim Bergeron MD PCP: Kathie Sen DO Status: REG CLI Study: Shoulder min 2 Views Date of Exam: 10/20/14 Exam# [id number] Ordering Dr: Anthony Teran DO STUDY: X-RAY [...] MD, FACR at 20:20 EDT T el [phone], Service support [phone], 0045 RAD/Shoulder min 2 Views IMPRESSION: Mild arthrosis of the acromioclavicular joint Electronically Signed: Marcos Bergeron MD, FACR at 20:20 EDT , Service support [phone], CC: Kathie Sen DO; Anthony Teran Machine Presser: Signed 05-Jul-2014 Emergency Department Summary Result: Comments: See Note; NOTES: [facility] Medical Records Department [address] [place] [address] Emergency Department Summary 07/05/14 1141 MR#: [id number] Acct: [id number] Name: WILLA MORROW Cristian Rep #: [id number] : 1960 53 From: Arsh Macias MD [...] DO at 12:53 EDT , Service support [phone], 07/05/14 11:49 Gallbladder [US] Stat La boratory [...] % Lymph % (Auto) 31.6 (19-41) % [place] % (Auto) 7.4 (0-10) % Eos % [...] 7.0 (5.0 - 8 .0) Ur Specific [place] 1.010 (1.002-1.030) Urine Protein Negative (Negative) mg/dl [...] Unknown Cause, (Male) Prescriptions: Hydrocodone Bitart/Apap 5-325 [[place] 5/325] 1 - 2 tablet PO Q4H PRN PRN #12 tablet PRN Reason: Pain Omeprazole [Prilosec] 20 mg PO DAILY #30 capsule Referrals: Fast,Kathie, DO [Primary Care Provider] - 3-5 Days What to do if you have Problems For any increased pain, shortness of breath, bleeding, nausea or vomiting, chest pa in, or any unexpected problems, contact your doctor. Call [facility] ([phone]) or report to the closest Emergency Room. Call 911 if necessary. 07/05/14 3682 <Electronically sig roscoe by Arsh Macias MD> Date Arsh Macias MD Cosigner Signature (If Indicated): Date CC: Kathie Fast DO 05-Jul-2014 Gallbladder Result: Comments: See Note; NOTES: [facility] Imaging Services [address] [place] [address] Ultrasound Report MR#: [id number] Acct: [id number] Name: WILLA MORROW Rep #: [id number] : 1960 M 53 From: Ja Saenz DO PCP: Fast DOKathie Status: REG ER Study: Gallbladder Date of Exam: 07/05/14 Exam# [id number] Ordering Dr: Arsh Macias MD STUDY: ULTRASOUND GAL [facility] REASON FOR VISIT: Male, 53 years [...] at 12:53 EDT , Servic e support [phone], CC: ARSH MACIAS MD; Kathie Sen DO Machine Presser: Signed 20-Jan-2014 Shoulder min 2 Views Result: Comments: See Note; NOTES: [facility] Imaging Services [address] [place] [address] Radiology Report MR#: [id number] Acct: [id number] Name: WILLA MORROW Rep #: [id number] : 1960 M 53 From: Arsh Mi MD PCP: Kathie Sen DO Status: REG CLI Study: Shoulder min 2 Views Date of Exam: 01/20/14 Exam# [id number] Ordering Dr: Kathie Sen DO STUDY: X-RAY [...] MD at 17:11 EST , Service support [phone], RAD/Shoulder min 2 Views IMPRESSION: No fracture. Joint spaces are well-preserved. Electronically Signed: Arsh Mi MD at 17:11 EST Tel , Service support [phone], CC: Kathie Sen DO Machine Presser: Signed 23-Sep-2013 NCS and/or EMG Patient Result: Comments: See Note; NOTES: [facility] Pulmonary Services/Neurology [address] [place] [address] NCS and/or EMG Patient MR#: [id number] Acct: [id number] Name: WILLA MORROW Rep #: [id number] : 1960 53 From: Atif Samuels MD Referring Dr: Kathie Sen DO Status: REG CLI Ordering Dr: Kathie Sen DO Date: 09/16/13 Location: [facility] Sex: M C The patient presents for [...] Dictated: 09/16/13 1138 Date Transcribed: 09/16/13 1244 Machine Presser: NIESHA Signed 15-May-2013 Spine Cervical (Routine) Result: Comments: See Note; NOTES: [facility] Imaging Services [address] [place] [address] MRI Report MR#: [id number] Acct: [id number] Name: WILLA MORROW Rep #: [id number] : 1960 M 52 From: Chaim Bergeron MD PCP: Kathie Sen DO Status: REG CLI Study: Spine Cervical (Routine) Date of Exam: 05/15/13 Exam# [id number] Ordering Dr: Kathie Sen DO STUDY: MRI [...] M.D. at 9:11 EDT , Service support [phone], CC: Kathie Sen DO Machine Presser: Signed 15-May-2013 Spine Lumbar (Routine) Result: Comments: See Note; NOTES: [facility] Imaging Services [address] [place] [address] MRI Report MR#: [id number] Acct: [id number] Name: WILLA MORROW R Rep #: [id number] : 1960 M 52 From: Chaim Bergeron MD PCP: Kathie Sen DO Status: REG CLI Study: Spine Lumbar (Routine) Date of Exam: 05/15/13 Exam# [id number] Ordering Dr: Kathie Sen DO STUDY: MRI [...] M.D. at 9:14 EDT , Service support [phone], CC: Kathie Sen DO Machine Presser: Signed 11-Feb-2013 PT Discharge Summary Result: Comments: See Note; NOTES: [facility] [address] [place] [address]. [address] [place] [address] Fax REHABILITATION SERVICES DISCHARGE SUMMARY MR#: [id number] Acct: [id number] Name: WILLA MORROW Cristian Rep #: [id number] : 1960 52 From: Shannen Anne Referring [...] he did have a fall on the jewish steps last night and is a little [...] C: Kathie Sen DO T: NTS JOB: [id number] <Electronically signed by Shannen Anne > 02/11/13 0952 CC: * Signed 14-Jan-2013 Inital Evaluation - PT Result: Comments: See Note; NOTES: [facility] [address] [place] [address]. [address] [place] [address] Fax REHABILITATION SERVICES INITIAL EVALUATION MR#: [id number] Acct: [id number] Name: WILLA MORROW Cristian Rep #: [id number] : 1960 52 From: Shannen Anne Referring DrLaina: Kathie Sen DO Status: REG R Insurance: [facility] ALEJANDRO LEVYOSITO MARBELLA [facility] Date: DATE OF SERVICE: 01/12/2013 SUBJECTIVE: This [...] He has 3 jobs. 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 He reports that life in crease [...] his complaint of left shoulder pain. 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 Bilateral upper extremity [...] extremity. Shannen Anne, PT T: NTS JOB: [id number] <Electronically signed by Shannen Anne > 01/14/13 1542 CC: Signed For Medicare onl y, by signing this I certify the [...] Description Value Details :35 Hemoglobin A1c Comments: [facility] [address] [place], [place], [address] HGB A1C 5.7 % (Normal) Range: 4.2-6.3 :49 CBC W/Diff, Automated Comments: [facility] [address] [place], [place], [address] Absolute Lymph 1.45 {X10_3/ul} (Normal) Range: 0.83-4.51 [...] 4.6-6.2 WBC 7.7 K/mm3 (Normal) Range: 4.4-11.0 65-Xdx-067631:49 Comprehensive Metabolic Profil Comments: [facility] [address] [place], [place], [address] GAP 6 (Normal) Range: 5-15 CO2 28.0 [...] A.D.A. criteria.Please note revised GLUCOSE reference range oeiiaohrw28/02/2018. :37 CBC W/Diff, Automated Comments: [facility] [address] [place], [place], [id number] Absolute Lymph 1.73 {X10_3/ul} (Normal) Range: 0.83-4.51 [...] Range: 4.4-11.0 :37 Comprehensive Metabolic Profil Comments: VELLANKI ONLY GETS CBCD,[facility] [address] [place], [place], [address] GAP 4 (Abnormal) Range: 5-15 CO2 29.0 [...] Comments: Please note revised GLUCOSE reference range cifjqccfy21/02/2018. 29-Jun-20178:37 Hemoglobin A1c Comments: [facility] [address] [place], [place], [address] HGB A1C 6.0 % (Normal) Range: 4.2-6.3 29-Jun-20178:37 Lipid Profile Comments: TOM QUAN GETS CBCD,[facility] [address] [place], [address] VLDL 9 mg/dL (Normal) Range: [...] 200-240 mg/dL Borderline >240 mg/dL High Risk :37 Microalb:Creat Ratio,Random UR Comments: [facility] [address] [place], [address] MALB:CREAT 4.1 {mg/g_CRE} (Normal) MICROALBUMIN,UR 10.9 mg/L (Normal) UR CREAT 264.00 mg/dL (Normal) 29-Jun-20178:37 Thyroid Stim Hormone (TSH) Comments: TOM AVELINA GETS CBCD,[facility] [address] [place], [address] TSH 0.84 {uIU/mL} (Normal) Range: 0.358-3.74 29-Jun-20178:37 Urinalysis, Complete Comments: How was Urine Obtained? CLEAN [facility] [address] [facility] [place], [address] MUCUS, URINE 0 SEEN {/hpf} [...] Yellow (Normal) 29-Jun-20178:37 Vitamin D,25 Hydroxy Comments: [facility] [address] [place], [address] Vitamin D 25-OH 38.9 ng/mL (Normal) Range: 29.95-100.01 Comments: Vitamin D 25(OH) Status Range Deficiency <20 ng/mL (50nmol/L) Insuffciency 20 - 30 ng/mL (50 - 75 nmol/L) Sufficiency 30 - 100 ng/mL (75 - 250 nmol/L) Toxicity >100 ng/mL (>250 nmol/L) 39-Fci-289711:02 CBC W/Diff, Automated Comments: [facility] [address] [place], [address] Absolute Lymph 1.71 {X10_3/ul} (Normal) [...] 4.6-6.2 WBC 6.8 K/mm3 (Normal) Range: 4.4-11.0 42-Rrm-475526:02 Comprehensive Metabolic Profil Comments: [facility] [address] [place], [place], [address] GAP 7 (Normal) Range: 5-15 CO2 30.0 mmol/L (Normal) Range: 21.0-32.0 CL 103 mmol/L (Normal) Range: 98-107 K 3.8 mmol/L (Normal) Range: 3.5-5.1 NA 140 mmol/L (Normal) Range: 136-145 T BILI 0.50 mg/dL (Normal) Range: 0.20-1.00 ALT 49 U/L (Normal) Range: 16-61 Comments: Please note revised ALT reference range mjaniecmw69/28/2018. ALK P 68 U/L (Normal) Range: 45-117 [...] Comments: Please note revised GLUCOSE reference range gkbvcadjg97/02/2018. 16-Tei-658441:01 Hemoglobin A1c Comments: [facility] [address] [place], [address] HGB A1C 5.8 % (Normal) Range: 4.2-6.3 :12 CBC W/Diff, Automated Comments: [facility] [address] [place], [place], [address] Absolute Lymph 1.51 {X10_3/ul} (Normal) Range: 0.83-4.51 [...] 4.6-6.2 WBC 5.2 K/mm3 (Normal) Range: 4.4-11.0 20-Azm-56179:12 Comprehensive Metabolic Profil Comments: [facility] [address] [place], [address] GAP 6 (Normal) Range: 5-15 CO2 30.0 [...] 7-18 GLU 96 mg/dL (Normal) Range: 70-110 43-Wes-767924:11 Pathology Report Comments: PERFORMED BY: [facility] Ogcme50605 [facility] [id number] BY: [facility] Dermatopathology Hhinojc730 [facility] [address] [id number] Information: [id number] See MATER Comments: Material submitted: .RIGHT LOWER [...] CASSETTE(S) A./LMSLMS/LMSPatho logist provided ICD-10:L82.1, L44.9, I87.9CPT .471101 3-Bjn-771002:42 CBC W/Diff, Automated Comments: DR SANTOS ORDERED CMP CBCDDR SANKET ORDERED A1C LIPID CMP LOREN CBCD TSH [facility] Pwieglooud[address]406 [facility] [place], [place], [phone] Absolute Lymph 2.23 {X10_3/ul} (Normal) Range: 0.83-4.51 [...] 4.6-6.2 WBC 7.4 K/mm3 (Normal) Range: 4.4-11.0 1-Puh-752735:42 Comprehensive Metabolic Profil Comments: DR SANTOS ORDERED CMP CBCDDR SANKET ORDERED A1C LIPID CMP LOREN CBCD TSH [facility] [address] [place], [place], [address] GAP 9 (Normal) Range: 5-15 CO2 26.0 [...] 7-18 GLU 93 mg/dL (Normal) Range: 70-110 1-Dfy-362807:42 Hemoglobin A1c Comments: DR SANTOS ORDERED CMP CBCDDR SANKET ORDERED A1C LIPID CMP [facility] CBCD [facility] Bwhmhmrsoy2202 [facility] [place], [place], [address] HGB A1C 6.0 % (Normal) Range: 4.2-6.3 9-Juu-823981:42 Lipid Profile Comments: DR SANTOS ORDERED CMP CBCDDR SANKET ORDERED A1C LIPID CMP [facility] CBCD [facility] Zvxejdgwsj69[address] [place], [place], [phone] VLDL 14 mg/dL (Normal) Range: 5-40 LDL [...] ORDERED A1C LIPID CMP LOREN CBCD TSH [facility] [address]wharu[address] [place], [address] MALB:CREAT Test not performed {mg/g_CRE} (Normal) MICROALBUMIN,UR < 5.0 mg/L (Normal) UR CREAT 17.60 mg/dL (Normal) :42 Thyroid Stim Hormone (TSH) Comments: DR SANTOS ORDERED CMP CBCDDR SANKET ORDERED A1C LIPID CMP LOREN CBCD TSH [facility] Ds[address]qfxmj22[address] [place], [place], [address] TSH 1.18 {uIU/mL} (Normal) Range: 0.358-3.74 4-Gok-759351:42 Urinalysis, Complete Comments: DR SANTOS ORDERED CMP CBCDDR SANKET ORDERED A1C LIPID CMP LOREN CBCD TSH UACHow was Urine Obtained? CLEAN [facility] Spkjqpykuv5[address] [place], [place], [phone] MUCUS, URINE 0 SEEN {/hpf} (Normal) BACTERIA [...] Yellow (Normal) :26 CBC W/Diff, Automated Comments: [facility] [address] [place], [place], [address] Absolute Lymph 1.18 {X10_3/ul} (Normal) Range: 0.83-4.51 [...] Range: 4.4-11.0 :26 Comprehensive Metabolic Profil Comments: [facility] [address] [place], [place], [address] GAP 6 (Normal) Range: 5-15 CO2 31.0 [...] (Normal) Range: 70-110 :26 Hemoglobin A1c Comments: [facility] [address] [facility] [address] [place], [place], [address] HGB A1C 6.1 % (Normal) Range: 4.2-6.3 :26 Lipid Profile Comments: [facility] [address] [facility] [address] [place], [place], [address] VLDL 12 mg/dL (Normal) Range: 5-40 LDL [...] High Risk :26 Microalb:Creat Ratio,Random UR Comments: [facility] [address] [place], [address] MALB:CREAT Test not performed {mg/g_CRE} (Normal) MICROALBUMIN,UR < 5.0 mg/L (Normal) UR CREAT 76.30 mg/dL (Normal) :26 Thyroid Stim Hormone (TSH) Comments: [facility] [address] [place], [place], [address] TSH 1.08 {uIU/mL} (Normal) Range: 0.358-3.74 :26 Urinalysis, Complete Comments: How was Urine Obtained? CLEAN [facility] [address] [place], [place], [address] MUCUS, URINE 0 SEEN {/hpf} (Normal) BACTERIA [...] Yellow (Normal) :26 Vitamin D,25 Hydroxy Comments: [facility] [address]ub[address] [place] [place], [address] Vitamin D 25-OH 44.6 ng/mL (Normal) Comments: Vitamin D 25(OH) Status Range Deficiency <20 ng/mL (50nmol/L) Insuffciency 20 - 30 ng/mL (50 - 75 nmol/L) Sufficiency 30 - 100 ng/mL (75 - 250 nmol/L) Toxicity >100 ng/mL (>250 nmol/L) 76-Ppn-484962:32 CBC W/Diff, Automated Comments: [facility] [address], [address] Absolute Lymph 1.73 {X10_3/ul} (Normal) Range: [...] Range: 4.4-11.0 :32 Comprehensive Metabolic Profil Comments: [facility] [address] [place], [place], [address] GAP 6 (Normal) Range: 5-15 CO2 30.0 [...] : Gastric Biopsy See Note (Normal) Comments: [facility] [address] [place], [address] 00 Comments: Patient: WILLA MORROW R : 1960 (55/M) Acct Num: [id number] Phys: Long Colmenares Unit Num: [id number] Loc: EN Specimen: [id number] Received: 04/26/16847 Spec Type: Gastric B x TISSUES TISSUES: COMMENT The results of immunohistochemistry for Helicobacter pylori will be reported separately ([id number]). GROSS DESCRIPTION Received is one container labele d with the patient's name and designated antrumbody biopsy. The specimen consists of multiple irregular fragments of light andrade soft tissue that in aggregate measure 0.5 x 0.3 x 0.1 cm. The specimen is totally submitted in one cassette. / SJ:xochitl 04/26/16 TC:3 CPT: 87516 HEADER OPERATION: EGD PRE-OP DIAGNOSIS: Epigastric pain [...] file> : IMMUNOHISTOCHEMISTRY See Note (Normal) Comments: [facility] [address]vlptq3746 [facility] [place], [address] 00 Comments: Patient: WILLA MORROW R : 1960 (55/M) Acct Num: [id number] Phys: Long Colmenares Unit Num: [id number] Loc: EN Specimen: [id number] Received: 04/27/16 - 1001 Spec Type: IMMUNO TISSUES TISSUES: SPECIMEN INFORMATION: Tissue Source: Antrum body biopsy Clinical Info: Epigastric pain Specimen Number: [id number] CPT code: 22543 METHODOLOGY: Deparaffiniz ed sections of prefer/formalin-fixed tissue [...] developed and their performance characteristics determined by [facility]. They may not have been cleared or a pproved by the U.S. Food and Drug Administration. The FDA has determined that such clearance or approval is not necessary. INTERPRETATION: Antrum body biopsy: Negative for Helicobacter pylori or ganisms. SJ:xochitl 04/30/16 PHYSICIAN AND INSTITUTION [facility] [address] [place] [address] Signed Cy Rdz 04/30/16 <signature on file> 31-Kmm-322740:27 Hemoglobin A1c Comments: [facility] Sdlvmmdqbc0981 [facility] [place], [place], [address] HGB A1C 5.8 % (Normal) Range: 4.2-6.3 :58 CBC W/Diff, Automated Comments: [facility] [address] [place], [place], [address] Absolute Lymph 1.42 {X10_3/ul} (Normal) Range: 0.83-4.51 [...] Range: 4.4-11.0 :58 Comprehensive Metabolic Profil Comments: [facility] [address] [place], [address] GAP 6 (Normal) Range: 5-15 CO2 30.0 [...] 7-18 GLU 99 mg/dL (Normal) Range: 70-110 14-Ixd-635658:00 Hemoglobin A1c Comments: [facility] [address]uxbzcr[address] [place], [place], [address] HGB A1C 5.9 % (Normal) Range: 4.2-6.3 34-Jrc-710082:02 CBC W/Diff, Automated Comments: DR SANTOS ORDERED CMP CBCDDR SANKET ORDERED LIPID TSH CBCD [facility] [address]unlvouv55[address] [place], [place], [address] Absolute Lymph 1.32 {X10_3/ul} (Normal) Range: 0.83-4.51 [...] CMP CBCDDR SANKET ORDERED LIPID TSH CBCD [facility] Nfuqndvtxq22[address] [place], [place], [address] GAP 6 (Normal) Range: 5-15 CO2 28.0 [...] 7-18 GLU 93 mg/dL (Normal) Range: 70-110 53-Gyv-381984:02 Lipid Profile Comments: DR SANTOS ORDERED CMP CBCDDR SANKET ORDERED LIPID TSH CBCD [facility] Kknyfsjxsc[address] [place], [address] VLDL 11 mg/dL (Normal) Range: 5-40 [...] 200-240 mg/dL Borderline >240 mg/dL High Risk 24-Xba-917347:02 Thyroid Stim Hormone (TSH) Comments: DR SANTOS ORDERED [facility] CBCDDR [facility] ORDERED LIPID TSH CBCD [facility] Uaojlfunab5[address] [place], [address] TSH 0.80 {uIU/mL} (Normal) Range: 0.358-3.74 99-Mfl-767542:02 Vitamin D,25 Hydroxy Comments: DR SANTOS ORDERED [facility] CBCDDR SANKET ORDERED LIPID TSH CBCD [facility] Sbxyjcxkeq2[address] [place], [address] Vitamin D 25-OH 50.7 ng/mL (Normal) Comments: Vitamin D 25(OH) Status Range Deficiency <20 ng/mL (50nmol/L) Insuffciency 20 - 30 ng/mL (50 - 75 nmol/L) Sufficiency 30 - 100 ng/mL (75 - 250 nmol/L) Toxicity >100 ng/mL (>250 nmol/L) :30 Hemoglobin A1c Comments: [facility] [address] [place], [address] HGB A1C 5.7 % (Normal) Range: 4.2-6.3 :30 Lipid Profile Comments: [facility] Qxmtnxmpbi06[address] [place], [place], [address] VLDL 10 mg/dL (Normal) Range: 5-40 LDL [...] High Risk :30 Microalb:Creat Ratio,Random UR Comments: [facility] [address]zp[address] [place], [place], [address] MALB:CREAT 3.7 {mg/g_CRE} (Normal) MICROALBUMIN,UR 6.1 mg/L (Normal) UR CREAT 163.00 mg/dL (Normal) :30 Thyroid Stim Hormone (TSH) Comments: [facility] B[address]qnspv5[address] [place], [place], [address] TSH 1.14 {uIU/mL} (Normal) Range: 0.358-3.74 :30 Urinalysis, Complete Comments: How was Urine Obtained? CLEAN [facility] K[address]jjwqyxun44[address] [place], [address] MUCUS, URINE RARE {/hpf} (Normal) [...] Yellow (Normal) :30 Vitamin D,25 Hydroxy Comments: [facility] Nddjjbobck5579 [facility] [place], [place], [address] Vitamin D 25-OH 46.5 ng/mL (Normal) Comments: Vitamin D 25(OH) Status Range Deficiency <20 ng/mL (50nmol/L) Insuffciency 20 - 30 ng/mL (50 - 75 nmol/L) Sufficiency 30 - 100 ng/mL (75 - 250 nmol/L) Toxicity >100 ng/mL (>250 nmol/L) 19-Apn-288581:29 CBC W/Diff, Automated Comments: [facility] Goyvrbuhgl1050 [facility] [place], [place], [address] Absolute Lymph 1.74 {X10_3/ul} (Normal) Range: 0.83-4.51 [...] 4.6-6.2 WBC 6.5 K/mm3 (Normal) Range: 4.4-11.0 30-Amf-353060:29 Comprehensive Metabolic Profil Comments: [facility] Y[address]jnegfo[address] [place], [place], [address] GAP 4 (Abnormal) Range: 5-15 CO2 31.0 [...] A.D.A. criteria. :01 CBC W/Diff, Automated Comments: [facility] Bedbvqggnz[address] [place], [place], [address] ; ordered by Max Absolute Lymph 1.83 [...] Range: 4.4-11.0 :01 Comprehensive Metabolic Profil Comments: [facility] [address]berv[address] [place], [address] GAP 5 (Normal) Range: 5-15 CO2 30.0 [...] 7-18 GLU 87 mg/dL (Normal) Range: 70-110 9-Ykm-606794:24 Alanine Aminotransferas (SGPT) Comments: [facility] [address] [facility] [place], [address] ALT 33 U/L (Normal) Range: 12-78 8-Sno-128584:24 Albumin, Serum Comments: [facility] [address]rtjd[address] [facility] [place], [address] ALB 3.6 g/dL (Normal) Range: 3.4-5.0 5-Jta-935876:24 Alkaline Phosphatase Comments: [facility] [address] [place], [address] ALK P 71 U/L (Normal) Range: 50-136 8-Jju-327608:24 AST(SGOT) Comments: [place] [address] [address] [place], [address] AST 26 U/L (Normal) Range: 15-37 Comments: Slight Hemolysis, Result may be falsely increased. 5-Yij-736836:24 Bilirubin, Total Comments: [address] [place], [address] T BILI 0.20 mg/dL (Normal) Range: 0.20-1.00 :24 BUN 17 mg/dL (Normal) Comments: [address] [place], [address] Range: 7-18 3-Lkb-895001:24 Calcium,Total Comments: [address] [place], [address] CA 8.3 mg/dL (Abnormal) Range: 8.5-10.1 :24 CBC W/Diff, Automated Comments: [address] [place], [address] Absolute Lymph 1.86 {X10_3/ul} (Normal) Range: 0.83-4.51 [...] K/mm3 (Normal) Range: 4.4-11.0 :24 Glucose Comments: [facility] [address]rltzhac[address] [place], [address] GLU 99 mg/dL (Normal) Range: 70-110 :24 Hepatitis C Antibodies Comments: [facility] (refer to report for specific site)refer to report for address and phone number; ordered by [facility] HEP C AB <0.1 {s/co_ratio} (Normal) Range: 0.0-0.9 Comments: Negative: < 0.8 Indeterminate: 0.8 - 0.9 Positive: > 0.9 In order to reduce the incidence of a false positive result, the CDC recommends that all s/co ratios between 1.0 and 10.9 be confirmed by a more specific supplemental or PCR testing. [facility] offers HCV Ab w/Reflex to Verification test #[id number]. :24 Lyme AB/Total Immuno Comments: [facility] (refer to report for specific site)refer to report for address and phone number LYME Comments: TEST RESULT LIMITSLyme, Total Ab Test/ReflexLyme IgG/IgM Ab <0.91 ISR 0.00 - 0.90 Negative <0.91 AB (Normal) Equivocal 0.91 - 1.09 Positive >1.09 TESTING PERFORMED [place] [facility] [place] [address] RIGINAL REPORT ON FILE IN LAB CONTAINS ADDITIONAL TEST SITE INFORMATION. 2-Wqp-132856:24 Protein Electroph, S Comments: [facility] (refer to report for specific site)refer to report for address and phone number NOTE: Comment (Normal) Comments: The SPE pattern appears essentially unremarkable. Evidenceof monoclonal protein is not apparent. INTERPRETATION Comment (Normal) Comments: Protein electrophoresis scan will follow via computer,mail, or buggy runner delivery. A/G RATIO 1.5 (Normal) Range: 0.7-2.0 GLOBULIN, TOTAL 2.6 g/dL (Normal) Range: 2.0-4.5 M-SPIKE (Normal) Comments: Not Observed GAMMA GLOBULIN 0.8 g/dL (Normal) Range: 0.5-1.6 BETA GLOBULIN 1.0 g/dL (Normal) Range: 0.6-1.3 ALPHA-2 GLOBUL 0.6 g/dL (Normal) Range: 0.4-1.2 ALPHA-1 GLOBUL 0.2 g/dL (Normal) Range: 0.1-0.4 ALBUMIN 3.9 g/dL (Normal) Range: 3.2-5.6 PROTEIN,TOTAL 6.5 g/dL (Normal) Range: 6.0-8.5 5-Mfx-877599:24 Protein, Total Comments: [facility] [address] [place], [place], [address] A/G 1.1 {RATIO} (Normal) Range: 0.9-2.4 GLOB 3.3 g/dL (Normal) Range: 2.3-3.5 T PROT 6.9 g/dL (Normal) Range: 6.4-8.2 4-Jxt-295228:24 Serum Creatinine AND GFR Comments: [facility] [address] [place], [address] EST GFR - AA 96 mL/min (Normal) Comments: GFR Calc EST GFR 79 mL/min (Normal) Comments: Non- GFR Calc CREAT,SERUM 1.03 mg/dL (Normal) Range: 0.70-1.30 Comments: The validity of the calculated GFR AND GFRAA in patients over70 years has not been determined. Clinical correlation isessential. 3-Tqc-736456:24 Thyroid Stim Hormone (TSH) Comments: [facility] [address] [place], [address] TSH 1.34 {uIU/mL} (Normal) Range: 0.358-3.74 :24 Uric Acid Comments: [facility] [address] [place], [place], [address] URIC 4.7 mg/dL (Normal) Range: 3.5-7.2 :19 CBC W/Diff, Automated Comments: [facility] [address] [place], [place], [address] Absolute Lymph 1.45 {X10_3/ul} (Normal) Range: 0.83-4.51 [...] 4.6-6.2 WBC 4.5 K/mm3 (Normal) Range: 4.4-11.0 90-Xkw-52197:19 Comprehensive Metabolic Comments: ORDERED PSA,CMP,CBCD,UACDRLONNIE ORDERED CBCD,[facility]MP[facility] Dfpitjdyjk39[address] [place], [place], [address] Profil GAP 6 (Normal) Range: 5-15 CO2 [...] - Annual Screen Comments: ORDERED PSA,CMP,CBCD,UACDR.TOM ORDERED CBCD,CMPT[facility] [address]zwei[address] [place], [place], [address] PSA,TOT SCREEN 0.55 ng/mL (Normal) Range: 0.00-4.00 Comments: This test was performed using the TPSA assay method for [employer] chemistry system. Values obtained with differentassay methods cannot be used interchangably.When changing PSA assays in the course of monitoring apatient, additional sequential testing should be carriedout to confirm baseline values. :19 Urinalysis, Complete Comments: How was Urine Obtained? CLEAN [facility]ATCHT[facility] Uwzxcivbmo8749 [facility] [place], [address] MUCUS, URINE 1+ {/hpf} (Normal) [...] :42 CBC W/Diff, Automated Comments: Test performed at:[facility] Crkupmdrqv4358 [facility] [place] [address] Absolute Lymph 1.96 {X10_3/ul} (Normal) [...] 4.6-6.2 WBC 6.0 K/mm3 (Normal) Range: 4.4-11.0 99-Zsd-797937:42 Comprehensive Metabolic Profil Comments: Test performed at:[facility] [address]qvf[address] [place] [address] ; handled by edmund GAP 4 (Abnormal) [...] Comments: Please note revised CREATININE reference range quwleuaki16/22/2015. BUN 19 mg/dL (Abnormal) Range: 7-18 GLU 93 mg/dL (Normal) Range: 70-110 46-Jol-027797:13 Liver Profile Comments: Test performed at:[facility] [address] [place] [address] ; ordered by Dr. Milagros Dolan BILI 0.11 mg/dL (Normal) Range: 0.00-0.30 T BILI 0.30 mg/dL (Normal) Range: 0.00-4.00 ALT 34 U/L (Normal) Range: 12-78 ALK P 63 U/L (Normal) Range: 50-136 AST 27 U/L (Normal) Range: 15-37 GLOB 3.1 g/dL (Normal) Range: 2.7-4.2 ALB 3.8 g/dL (Normal) Range: 3.4-5.0 T PROT 6.9 g/dL (Normal) Range: 6.4-8.2 25-Phi-850696:30 CBC W/Diff, Automated Comments: Test performed at:[facility] [address] [place] [address] Absolute Lymph 2.16 {X10_3/ul} (Normal) Range: [...] 4.6-6.2 WBC 6.2 K/mm3 (Normal) Range: 4.4-11.0 08-Wwg-925139:30 Comprehensive Metabolic Profil Comments: Test performed at:[facility] [address]ohwjktj[address] [place], [place] [address] ; handled by edmund GAP 3 (Abnormal) [...] 126 mg/dLsuggests DIABETES MELLITUS per A.D.A. criteria. 36-Tjy-495353:16 Rapid Flu (93915 x 2) Influenza A Ag negative (Normal) 76-Qrd-881368:05 CBCD ALC 1.47 {X10_3/ul} (Normal) Range: 0.83-4.51 [...] 4.6-6.2 WBC 4.7 K/mm3 (Normal) Range: 4.4-11.0 :05 CMP GAP 5 (Normal) Range: 5-15 CO2 [...] performed using the TPSA assay method for the[employer] chemistry system. Values obtained with differentassay methods [...] CULTURE-MALIA COL Comments: PATIENT NOT FASTINGPERFORMED BY: [facility] CenterXvofna8355 [facility] [id number] Information: SRC:UR [id number] COUNT (36021) Result 1 MUG (Normal) Comments: Mixed urogenital flora1,000 Colonies/mL Urine Culture,Comprehensive Final report (Normal) 27-Zgm-838046:37 Urinalysis, Office (61201) UA - BILIRUBIN Large (Normal) UA - BLOOD Negative (Normal) UA - GLUCOSE Negative (Normal) UA - KETONES Negative mg/dL (Normal) UA - LEUKOCYTE ESTERASE Negative (Normal) UA - NITRITE Negative (Normal) UA - PH 7.0 (Normal) UA - PROTEIN Negative mg/dL (Normal) UA - SPECIFIC GRAVITY 1.025 (Normal) URINE UROBILINGN MALIA TIMED Normal mg/dL (Normal) 36-Qrz-21695:53 CBCD ANC 2.7 {X10_3/uL} (Normal) Range: 2.0-7.7 [...] 4.6-6.2 WBC 4.7 K/mm3 (Normal) Range: 4.4-11.0 59-Dio-07117:53 CMP Comments: ERIKA URIARTE CNP ORDERED CMP ONLY CO2 29.0 [...] CHOL 135 mg/dL (Normal) Comments: <200 mg/dL Tdxkwnxmt017-253 mg/dL Borderline>240 mg/dL High Risk :53 PSAD 0.56 ng/mL (Normal) Comments: REIKA URIARTE ENGINE RESEARCH ENGINEER ORDERED CMP ONLY Range: 0.0-4.0 Comments: This test was performed using the TPSA assay method for the[employer] chemistry system. Values obtained with differentassay methods cannot be used interchangably.When changing PSA assays in the course of monitoring apatient, additional sequential testing should be carriedout to confirm baseline values. 39-Wuy-53637:53 UA Comments: How was Urine Obtained? CLEAN CATCH BLUE 25 /ul (Abnormal) UOB Negative /ul (Normal) CATHERINE Negative (Normal) UROBU Normal mg/dL (Normal) uPROTU 15 mg/dL (Abnormal) YAZ 6.0 (Normal) Range: 5.0 - 8.0 SGU 1.025 (Normal) Range: 1.002-1.030 KETU Negative mg/dL (Normal) BILIU 3 mg/dL (Abnormal) GLUR Normal mg/dL (Normal) UCLAR Clear (Normal) UCOL Yellow (Normal) 50-Khq-820773:20 KNEE 4 OR MORE VIEWS Radiology Report [...] harper M.D.September 23, 2012 at 2:44:59 PM [id number] Signed GP/GP If you are the referring physician and would like to consult with theradiologist who provided this interpretation, please lashonda eMnjivar M.D. at [phone]. If this radiologist is unavailable, youwill be directed to another radiologist to assist. If you are a patient with a question regarding this report, emili la referring physician directly. Professional Interpretation Provided By: [employer], Phone , These documents contain legally protected [...] 09/23/12 1452 Sign by: Dagoberto Cox MD 85-Rse-785585:19 Rapid Strep Test, Office (04043) Comments: neg Rapid Strep Test, Office Negative (Normal) 5-Fom-674740:41 L/S SPINE,MIN 4 VIEWS Radiology Report See [...] Cox M.D.April 02, 2012 at 1:16:13 PM [id number] Signed GP/GP If you are e referring physician and would like to consult with theradiologist who provided this interpretation, please contact Raj Menjivar at [phone]. If this radiologist is unavailable, youwill be directed to another radiologist to assist. If you are a patient with a question regarding this report, pleasecontactyour referring physician directly. Professional Interpretation Provided By: [employer], Phone , These documents contain legally [...] High > or = 500 mg/dL :18 [facility] AMORP 3+ (Normal) UMUC 0 SEEN [...] 6 mg/dL (Abnormal) Comments: DUE TO A RURAL MAIL CARRIER'S BACKORDER OF THE ICTOTEST TEST, URINE BILIRUBIN COMFIRMATORY TESTING FOR ALL POSITIVERESULTS WILL BE SUSPENDED. TESTING WILL RESUME WHEN THEICTOTEST TEST IS AVAILABLE. GLUR Normal mg/dL (Normal) UCLAR Cloudy (Normal) UCOL Yellow (Normal) 09-Ttk-70356:30 YUE CULTURE-OTHER (01291) Comments: PATIENT NOT FASTINGPERFORMED BY: [facility] CenterNzbrvp1702 [facility] [id number] Information: SRC:THRT [id number] Result 1 MORACA (Normal) Comments: Moraxella (branhamella) [...] PSA 0.5 ng/mL (Normal) Range: 0.0-4.0 :42 [facility] UMUC 0 SEEN {/hpf} (Normal) UBAC 1+ [...] D deficiency has been defined by the [place] ofMedicine and an Endocrine Society practice guideline as alevel of serum 25-OH vitamin D less than 20 ng/mL (1,2).The Endocrine Society went on to further define vitamin Dinsufficiency as a level between 21 and 29 ng/mL (2).1. IOM ([place] of Medicine). 2010. Dietary reference intakes for calcium and D. [place]: The National Academies Press.2. Cesario MF, Dylan NC, Darling SCHERER, et al. Evaluation, treatment, and prevention of vitamin D deficiency: an Endocrine Society clinical practice guideline. JCEM. 2010; 96(7): 1911-30.Performed at: - [address] [id number] Director: Concha Jarrell MD, Phone: [phone] :57 YUE CULTURE-OTHER (85075) Comments: PATIENT NOT FASTINGPERFORMED BY: [address] [id number] Information: SRC:THRT [id number] Result 1 RRF (Normal) Comments: Routine respiratory hernán Upper Respiratory Culture Final report (Normal) :41 Rapid Strep Test, Office (93561) Rapid Strep Test, Office Negative (Normal) :55 [...] 4.6-6.2 WBC 4.8 K/mm3 (Normal) Range: 4.4-11.0 17-Phy-94236:05 COMP METABOLIC GAP 5 (Normal) Range: 5-15 [...] ug/dL (Normal) Range: 250-450 :03 VIT D,25 42554 45.7 ng/mL (Normal) Range: 32.0-100.0 Comments: Recent studies consider the lower limit of 32.0 ng/mL to jennifer threshold for optimal health.Remigio GIBSON. J Nutr. 2004;135(2):317-22.Performed at: [facility] [address] [id number] Director: Concha Jarrell MD, Phone: [phone] :40 FECAL OCCULT- Tubes sent home (23612) FECAL OCCULT HGB ASSAY, Negative (Normal) QUAL, [...] 11.6-14.6 WBC 4.7 K/mm3 (Normal) Range: 4.4-11.0 0-Trh-463560:04 COMP METABOLIC GAP 6 (Normal) Range: 5-15 [...] 6.4-8.2 GLU 92 mg/dL (Normal) Range: 70-110 [id number]-Pwt-[id number]:04 D BILI 0.14 mg/dL (Normal) Range: 0.00-0.30 :17 RIBS UNIL 2V NO CXR Radiology Report See Note (Normal) Comments: Exam Number: [id number] CLINICAL:This is a 49-year-old male patient with [...] Report See Note (Normal) Comments: Exam Number: [id number] CLINICAL:This is a 49-year-old male patient with [...] By: DAGOBERTO COX :15 ABDOMEN COMPLETE US () Radiology Report See Note (Normal) Comments: Exam Number: [id number] CLINICAL:This is a 49-year-old male patient with [...] Reported By: DAGOBERTO COX 29-Sep-20098:37 Urinalysis, Office (46128) UA - LEUKOCYTE ESTERASE Negative (Normal) UA - NITRITE Negative (Normal) URINE UROBILINGN MALIA TIMED Normal mg/dL (Normal) UA - PROTEIN Negative mg/dL (Normal) UA - PH 7.0 (Normal) UA - BLOOD Negative (Normal) UA - SPECIFIC GRAVITY 1.015 (Normal) UA - KETONES Negative mg/dL (Normal) UA - BILIRUBIN Large (Normal) UA - GLUCOSE Negative (Normal) :09 Urinalysis, Office (98114) UA - LEUKOCYTE ESTERASE Negative (Normal) UA [...] 0.5 ng/mL (Normal) Range: 0.0-4.0 :08 THERESA-D 242129 THERESA-DIRECT SeeNote (Normal) Comments: Result: Negative :08 ANTI-CCP [id number] 4 {units} (Normal) Range: 0-19 Comments: Negative [...] (Normal) GLU 88 mg/dL (Normal) Range: 70-110 70-Dty-78932:08 COMPLETE UA BACTERIA 0 SEEN {/hpf} (Normal) [...] mm/h (Normal) Range: 0-20 :08 HB CORE [id number] SeeNote (Normal) Comments: Result: NegativePerformed At: [facility] [id number] [place], [place] [id number] At: [facility] [id number] : HBsAg 6510 HB SURF AG 6510 SeeNote (Normal) Comments: Result: Negative : HEBSAB 6395 < 0.1 (Normal) Range: 0.00-0.99 Comments: Status of Immunity Anti-HBs Level Inconsistent with Immunity 0.00 - 0.99Consistent with Immunity >0.99.An Index Value of 1.00 is equivalent to 10 mIU/mL.However the magnitude of the Index Value is notindicative of the total amount of antibody present. : HEP C AB 291322 0.1 (Normal) Range: 0.0-0.9 Comments: Negative: < 0.8Indeterminate 0.8 - 0.9Positive: > 0.9.In order to reduce the incidence of a false positiveresult, the CDC recommends that all s/co ratiosbetween 1.0 and 10.9 be confirmed with additionalRIBA or PCR testing. : RHEUMATOID FAC 12.7 {IU/mL} (Normal) : VIT D,25 33397 33.7 ng/mL (Normal) Range: 32.0-100.0 Comments: Recent studies consider the lower limit of 32.0 ng/mL to jennifer threshold for optimal health.Remigio GIBSON. J Nutr. 2004;135(2):317-22. :15 5-HIAA U24 4069 5-HIAA,U24 4.7 {mg/24_hr} (Normal) Range: 0.0-14.9 5-HIAA,UR 2.6 mg/L (Normal) :15 THERESA-D [id number] THERESA-DIRECT SeeNote (Normal) Comments: Result: Negative Performed At: [facility] [address] [id number] At: [facility] [id number] [place], [place] [id number] :15 BMP BUN 21 mg/dL (Abnormal) Range: [...] RHEUMATOID FAC 19.5 {IU/mL} (Abnormal) :15 SJOGREN [id number] Anti-SS-A < 0.2 {AI} (Normal) Range: 0.0-0.9 [...] Range: 0.358-3.74 :21 Rapid Strep Test, Office (75559) Rapid Strep Test, Office Negative (Normal) Comments: [...] Report See Note (Normal) Comments: Exam Number: [id number] MAMMOGRAM, BILATERAL DIAGNOSTIC DIGITAL AND CAD HISTORYPatient [...] these [facility]. This interpretation was rendered by a radiologist certified under theMammography Quality Standards Act of 1992 (MQSA). The mammograms werealso examined with computer-aided detection software ([employer], [employer] Reported By: JUMANA VIDALES M.D. :32 SPINE, THORACIC (ROUTINE) Radiology Report See Note (Normal) Comments: Exam Number: [id number] MRI THORACIC SPINE. CLINICAL STATEMENTThoracic pain, paresthesia. [...] Report See Note (Normal) Comments: Exam Number: [id number] MRI CERVICAL SPINE CLINICAL STATEMENTNeck pain, paresthesia. [...] T PROT 7.1 g/dL (Normal) Range: 6.4-8.2 50-Ehb-316088:10 LIVER ALB 3.9 g/dL (Normal) Range: 3.4-5.0 ALK P 80 U/L (Normal) Range: 50-136 ALT 42 U/L (Normal) Range: 30-65 AST 18 U/L (Normal) Range: 15-37 D BILI 0.14 mg/dL (Normal) Range: 0.00-0.30 T BILI 0.38 mg/dL (Normal) Range: 0.00-1.00 T PROT 7.5 g/dL (Normal) Range: 6.4-8.2 :51 Iron and TIBC Comments: PATIENT NOT FASTINGPERFORMED BY: [place] [id number] [facility] [id number] Iron Bind.Cap.(TIBC) 333 ug/dL (Normal) Range: 250-450 Iron Saturation 18 % (Normal) Range: 15-55 Iron, Serum 61 ug/dL (Normal) Range: 40-155 UIBC 272 ug/dL (Normal) Range: 150-375 LDH 227 [iU]/L (Normal) Comments: PATIENT NOT FASTINGPERFORMED BY: [address] [id number] :51 Range: 100-250 Reticulocyte Count 1.2 % (Normal) Comments: PATIENT NOT FASTINGPERFORMED BY: [address] [id number] :51 Range: 0.5-3.0 Vitamin B12 672 pg/mL (Normal) Comments: PATIENT NOT FASTINGPERFORMED BY: [address] [id number] :51 Range: 211-911 :51 FOLIC ACID SERUM (52019) Comments: PATIENT NOT FASTINGPERFORMED BY: [address] [id number] Folate (Folic Acid), Serum 20.1 ng/mL (Normal) Comments: Indeterminate: 3.4 - 5.4 Deficient: <3.4 :51 FERRITIN (68726) Comments: PATIENT NOT FASTINGPERFORMED BY: [address] [id number] Ferritin, Serum 53 ng/mL (Normal) Range: 22-322 [...] was performed using the TPSA method for the[employer] chemistry system.Values obtained with different assay methods cannot be usedinterchangably.When changing PSA assays in the course of monito ring apatient, additional sequential testing should be carriedout to confirm baseline values. :18 TSH 0.84 {uIU/mL} (Normal) Range: 0.34-4.82 :26 GALLBLADDER Radiology Report See Note (Normal) Comments: Exam Number: [id number] GALLBLADDER ULTRASOUND HISTORYChest pain. High resolution real [...] Report See Note (Normal) Comments: Exam Number: [id number] MYOCARDIAL PERFUSION SCAN 14.2 millicuries of Tc99m [...] Report See Note (Normal) Comments: Exam Number: [id number] MR ANGIOGRAM OF BRAIN CLINICAL STATEMENTHeadache, cephalgia. Tingling sensation. TECHNIQUE Noncontrast 3-D fbqq-gj-pyninw MRA. FINDINGSNo MRA evidence of aneurysm or atheros clerotic stenosis of the circleof Jordan or intracranial vertebrobasilar artery system is seen. IMPRESSIONNormal MRA of the parasellar region. MRI OF BRAIN CLINICAL STATEMENT Cephalgia. Paresthesia. Stroke. TECHNIQUEAfter obtaining T1 weighted sagittal manager placement scan, T1, proton density,T2 weighted, and FLAIR [...] Report See Note (Normal) Comments: Exam Number: [id number] MR ANGIOGRAM OF BRAIN CLINICAL STATEMENTHeadache, cephalgia. Tingling sensation. TECHNIQUE Noncontrast 3-D lyzk-hm-qkobxv MRA. FINDINGSNo MRA evidence of aneurysm or atheros clerotic stenosis of the circleof Jordan or intracranial vertebrobasilar artery system is seen. IMPRESSIONNormal MRA of the parasellar region. MRI OF BRAIN CLINICAL STATEMENT Cephalgia. Paresthesia. Stroke. 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- just had spiromety done Indication: [...] tolerance test (GTT)) 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 Indication: Rheumatoid arthritis Hypertension : [...] Indication: Rheumatoid arthritis 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- dr De Indication: Rheumatoid arthritis [...] Other anxiety states Planned Observations HGB A1C (77637)Indication: Abnormal glucose tolerance test (Renamed from Abnormal glucose tolerance test (GTT)) On: 28-Feb-2018 Request Comments: standing order for q4mo for one yr HGB A1C (89000)Indication: Abnormal glucose tolerance test (Renamed from Abnormal glucose tolerance test (GTT)) On: 29-Nov-2017 Request CALCIFIDIOL (15587) VIT D 25Indication: Vitamin D deficiency On: 15-Qed-74653:51 Request TSH (10446)Indication: Abnormal glucose tolerance test (Renamed from Abnormal glucose tolerance test (GTT)) On: :51 Request URINALYSIS, W/ MICRO (03933)Indication: Abnormal glucose tolerance test (Renamed from Abnormal glucose tolerance test (GTT)) On: :51 Request MICROALBUMIN: CREATININE RATIO (81510) AND (61537)Indication: Abnormal glucose tolerance test (Renamed from Abnormal glucose tolerance test (GTT)) On: :51 Request METABOLIC PANEL, COMPREHENSIVE (61501)Indication: Abnormal glucose tolerance test (Renamed from Abnormal glucose tolerance test (GTT)) On: :51 Request LIPOPROTEIN, BLD, BY NMR (62987)Indication: Abnormal glucose tolerance test (Renamed from Abnormal glucose tolerance test (GTT)) On: :51 Request CBC W/AUTO DIFF WBC (10504)Indication: Abnormal glucose tolerance test (Renamed from Abnormal glucose tolerance test (GTT)) On: 25-Stl-62317:51 Request HGB A1C (51339)Indication: Abnormal glucose tolerance test (Renamed from Abnormal glucose tolerance test (GTT)) On: 31-Oct-2017 Request Comments: standing order for q4mo for one yr HGB A1C (07962)Indication: Abnormal glucose tolerance test (Renamed from Abnormal glucose tolerance test (GTT)) On: 01-Aug-2017 Request HGB A1C (82457)Indication: Abnormal glucose tolerance test (Renamed from Abnormal glucose tolerance test (GTT)) On: 03-Jul-20178:49 Request Comments: standing order for q4mo for one yr HGB A1C (44107)Indication: Abnormal glucose tolerance test (Renamed from Abnormal glucose tolerance test (GTT)) On: 9-Mvv-845388:10 Request CALCIFIDIOL (18880) VIT D 25Indication: Vitamin D deficiency On: :29 Request TSH (64450)Indication: Abnormal glucose tolerance test (Renamed from Abnormal glucose tolerance test (GTT)) On: : Request URINALYSIS, W/ MICRO (10308)Indication: Abnormal glucose tolerance test (Renamed from Abnormal glucose tolerance test (GTT)) On: : Request MICROALBUMIN: CREATININE RATIO (31051) AND (98918)Indication: Abnormal glucose tolerance test (Renamed from Abnormal glucose tolerance test (GTT)) On: : Request METABOLIC PANEL, COMPREHENSIVE (02193)Indication: Abnormal glucose tolerance test (Renamed from Abnormal glucose tolerance test (GTT)) On: : Request LIPID PANEL (55922)Indication: Abnormal glucose tolerance test (Renamed from Abnormal glucose tolerance test (GTT)) On: : Request CBC W/AUTO DIFF WBC (89472)Indication: Abnormal glucose tolerance test (Renamed from Abnormal glucose tolerance test (GTT)) On: :28 Request HGB A1C (29137)Indication: Abnormal glucose tolerance test (Renamed from Abnormal glucose tolerance test (GTT)) On: 62-Yox-486528:04 Request HGB A1C (67758)Indication: Abnormal glucose tolerance test (Renamed from Abnormal glucose tolerance test (GTT)) On: 92-Mjn-611665:35 Request HGB A1C (62146)Indication: Abnormal glucose tolerance test (Renamed from Abnormal glucose tolerance test (GTT)) On: 4-Skg-276761:45 Request CALCIFIDIOL (83342) VIT D 25Indication: Vitamin D deficiency On: 5-Ige-357260:51 Request HGB A1C (48008)Indication: Abnormal glucose tolerance test (Renamed from Abnormal glucose tolerance test (GTT)) On: :50 Request TSH (95697)Indication: Abnormal glucose tolerance test (Renamed from Abnormal glucose tolerance test (GTT)) On: 7-Ano-810246:50 Request URINALYSIS, W/ MICRO (59816)Indication: Abnormal glucose tolerance test (Renamed from Abnormal glucose tolerance test (GTT)) On: :50 Request MICROALBUMIN: CREATININE RATIO (40010) AND (56125)Indication: Abnormal glucose tolerance test (Renamed from Abnormal glucose tolerance test (GTT)) On: :50 Request METABOLIC PANEL, COMPREHENSIVE (12432)Indication: Abnormal glucose tolerance test (Renamed from Abnormal glucose tolerance test (GTT)) On: :50 Request LIPID PANEL (31238)Indication: Abnormal glucose tolerance test (Renamed from Abnormal glucose tolerance test (GTT)) On: :50 Request CBC W/AUTO DIFF WBC (18972)Indication: Abnormal glucose tolerance test (Renamed from Abnormal glucose tolerance test (GTT)) On: :50 Request HGB A1C (60929)Indication: Abnormal glucose tolerance test (Renamed from Abnormal glucose tolerance test (GTT)) On: :11 Request HGB A1C (18085)Indication: Abnormal glucose tolerance test (Renamed from Abnormal glucose tolerance test (GTT)) On: :32 Request Lipid Panel (44497)Indication: Abnormal glucose tolerance test (Renamed from Abnormal glucose tolerance test (GTT)) On: :55 Request TSH (58204)Indication: Neck pain On: :54 Request CBC, Platelets & Auto Diff (56655)Indication: Hypertension On: :54 Request Metabolic Panel, Comprehensive (38722)Indication: Hypertension On: :54 Request CALCIFEDIOL (67336)Indication: Vitamin D deficiency On: :53 Request HGB A1C (32183)Indication: Hyperglycemia On: :49 Request TSH (19235)Indication: Other anxiety states On: :45 Request FECAL OCCULT- Tubes sent home (98202)Indication: Encounter for screening for malignant neoplasm of colon (Renamed from Special screening for malignant neoplasms, colon) On: :43 Request CALCIFIDIOL (53629) VIT D 25Indication: Vitamin D deficiency On: :43 Request URINALYSIS, W/ MICRO (00358)Indication: Hypertension On: :32 Request MICROALBUMIN: CREATININE RATIO (39219) AND (12152)Indication: Hypertension On: :32 Request LIPID PANEL (75906)Indication: Hypertension On: : Request Urinalysis, Office (18809)Indication: Abnormal urine On: :12 Request URINE YUE CULTURE (MALIA COL COUNT) (27330)Indication: Abnormal urine On: :12 Request PSA (PROSTATE SPECIFIC ANTIGEN) (V76.44)Indication: Screening for prostate cancer On: :14 Request URINALYSIS, W/ MICRO (23967)Indication: Hypertension On: :14 Request CBC W/AUTO DIFF WBC (42030)Indication: Hypertension On: :14 Request METABOLIC PANEL, COMPREHENSIVE (88638)Indication: Hypertension On: :14 Request URINE YUE CULTURE-IDENTIFICATN (93875)Indication: Abnormal urine On: :38 Request PSA (PROSTATE SPECIFIC ANTIGEN) (V76.44)Indication: Screening for prostate cancer On: :03 Request URINALYSIS, W/ MICRO (51352)Indication: Hypertension On: :02 Request CBC WITH MANUAL DIFF (32831)Indication: Hypertension On: :02 Request METABOLIC PANEL, COMPREHENSIVE (88638)Indication: Hypertension On: :02 Request TSH (52985)Indication: SYMPTOMS INVOLVING SKIN AND OTHER INTEGUMENTARY TISSUE, FLUSHING On: 11-Kkx-145776:25 Request CBC WITH MANUAL DIFF (59690)Indication: SYMPTOMS INVOLVING SKIN AND OTHER INTEGUMENTARY TISSUE, FLUSHING On: 85-Ilv-648195:25 Request CBC WITH MANUAL DIFF (69946)Indication: SYMPTOMS INVOLVING SKIN AND OTHER INTEGUMENTARY TISSUE, FLUSHING On: :35 Request TSH (97505)Indication: SYMPTOMS INVOLVING SKIN AND OTHER INTEGUMENTARY TISSUE, FLUSHING On: :35 Request SEROTONIN (42434)Indication: SYMPTOMS INVOLVING SKIN AND OTHER INTEGUMENTARY TISSUE, FLUSHING On: :34 Request METANEPHRINES - URINE (65267)Indication: SYMPTOMS INVOLVING SKIN AND OTHER INTEGUMENTARY TISSUE, FLUSHING On: :34 Request CATECHOLAMINES TOTAL, URINE (34433)Indication: SYMPTOMS INVOLVING SKIN AND OTHER INTEGUMENTARY TISSUE, FLUSHING On: :34 Request URINE VMA (34448)Indication: SYMPTOMS INVOLVING SKIN AND OTHER INTEGUMENTARY TISSUE, FLUSHING On: :34 Request PSA (PROSTATE SPECIFIC ANTIGEN) (80903)Indication: Screening for prostate cancer On: 5-Dzy-983904:57 Request Metabolic Panel, Comprehensive (82050)Indication: Hypertension On: :56 Request CBC with manual diff (53545)Indication: Hypertension On: :56 Request URINALYSIS (69243)Indication: Hypertension On: :56 Request Lipid Panel (82129)Indication: SCREENING FOR HYPERLIPIDEMIA On: :56 Request Metabolic Panel, Comprehensive (44517)Indication: Hypertension On: 6-Jqn-831550:56 Request Comments: to be done in 1-2 weeks YUE CULTURE-OTHER (25932)Indication: Pharyngitis, acute On: :19 Request Rapid Strep Test, Office (86745)Indication: Pharyngitis, acute On: 45-Ikh-724533:38 Request LIPID PANEL (44585)Indication: Hypertension On: :41 Request CBC WITH MANUAL DIFF (76957)Indication: Hypertension On: :41 Request METABOLIC PANEL, COMPREHENSIVE (98476)Indication: Hypertension On: :41 Request URINALYSIS, W/ MICRO (61246)Indication: Abnormal urine On: :41 Request Vitamin D Hydroxy (62776)Indication: Paresthesia On: :55 Request URINALYSIS, W/ MICRO (74908)Indication: Hypertension On: :52 Request METABOLIC PANEL, COMPREHENSIVE (21248)Indication: Hypertension On: :52 Request LIPID PANEL (49480)Indication: Carotid stenosis On: 2-Tix-874313:51 Request PSA (PROSTATE SPECIFIC ANTIGEN) (V76.44)Indication: Screening for prostate cancer On: :51 Request CBC WITH MANUAL DIFF (73566)Indication: Iron deficiency anemia, unspecified On: :51 Request CBC WITH MANUAL DIFF (61359)Indication: Iron deficiency anemia, unspecified On: :11 Request IRON BINDING CAPACITY (TIBC) (16868)Indication: Iron deficiency anemia, unspecified On: 17-Yur-206657:11 Request FERRITIN (78603)Indication: Iron deficiency anemia, unspecified On: 26-Cnu-401278:11 Request IRON (16930)Indication: Iron deficiency anemia, unspecified On: :11 Request CBC WITH MANUAL DIFF (62288)Indication: Iron deficiency anemia, unspecified On: :17 Request LIPID PANEL (47933)Indication: Hypertension On: :17 Request METABOLIC PANEL, COMPREHENSIVE (74667)Indication: Hypertension On: :17 Request IRON BINDING CAPACITY (TIBC) (95707)Indication: Iron deficiency anemia, unspecified On: :16 Request FERRITIN (31755)Indication: Iron deficiency anemia, unspecified On: :16 Request IRON (51302)Indication: Iron deficiency anemia, unspecified On: 43-Nio-924182:16 Request Vitamin D Hydroxy (67709)Indication: Rheumatoid arthritis On: :58 Request CBC WITH MANUAL DIFF (26977)Indication: Iron deficiency anemia, unspecified On: :58 Request FERRITIN (05814)Indication: Iron deficiency anemia, unspecified On: 34-Grz-138337:58 Request IRON BINDING CAPACITY (TIBC) (67034)Indication: Iron deficiency anemia, unspecified On: :58 Request IRON (84105)Indication: Iron deficiency anemia, unspecified On: 19-Vkf-098425:58 Request PSA (PROSTATE SPECIFIC ANTIGEN) (V76.44)Indication: Screening for prostate cancer On: :48 Request FOLIC ACID SERUM (73551)Indication: Anemia NEC On: :40 Request VITAMIN B-12 (CYANOCOBALAMIN) (36282)Indication: Anemia NEC On: :40 Request RETICULOCYTE COUNT MANUL (07040)Indication: Anemia NEC On: :40 Request LDH (LD) (LACTATE DEHYDROGENASE) (99448)Indication: Anemia NEC On: :40 Request IRON BINDING CAPACITY (TIBC) (58563)Indication: Anemia NEC On: :40 Request FERRITIN (54754)Indication: Anemia NEC On: :40 Request IRON (66335)Indication: Anemia NEC On: :40 Request CBC, PLATELETS & AUT DIFF (67964)Indication: Anemia NEC On: :40 Request Metabolic Panel, Comprehensive (14811)Indication: Abdominal pain, acute, right upper quadrant On: :44 Request CBC with manual diff (15587)Indication: Abdominal pain, acute, right upper quadrant On: 29-Sep-20098:43 Request HEPATIC FUNCTION PANEL (80967)Indication: Abdominal pain, acute, right upper quadrant On: :41 Request CBC WITH MANUAL DIFF (32143)Indication: Rheumatoid arthritis On: 04-Axq-015386:46 Request METABOLIC PANEL, COMPREHENSIVE (12374)Indication: Hypertension On: 07-Fyq-419344:45 Request C-REACTIVE PROTEIN (60489)Indication: Raynaud's syndrome On: 20-Cod-017921:26 Request SED RATE ERYTHROCYTE (71312)Indication: Raynaud's syndrome On: 00-Xbw-892611:26 Request RHEUMATOID FACTOR-QUANT (14479)Indication: Raynaud's syndrome On: 45-Toi-489161:26 Request THERESA (ANTINUCLEAR ANTIBODY) (65650)Indication: Raynaud's syndrome On: 44-Xkd-713110:26 Request PSA (PROSTATE SPECIFIC ANTIGEN) (V76.44)Indication: Screening for prostate cancer On: 18-Yxy-675241:47 Request URINALYSIS, W/ MICRO (93069)Indication: Hypertension On: 75-Nfr-894223:47 Request LIPID PANEL (03712)Indication: Hypertension On: 06-Fca-631510:46 Request TSH (72116)Indication: Rash On: 86-Cnx-568770:46 Request METABOLIC PANEL, COMPREHENSIVE (49794)Indication: Hypertension On: 17-Ffo-349531:46 Request CBC WITH MANUAL DIFF (23930)Indication: Hypertension On: 49-Upm-594508:46 Request Metabolic Panel, Basic (78122)Indication: Hypertension On: 9-Tjl-690240:11 Request HEPATIC FUNCTION PANEL (58799)Indication: onychomycosis On: :27 Request Comments: q month for 2 months VITAMIN B-12 (CYANOCOBALAMIN) (24103)Indication: Anemia, unspecified On: 74-Fco-949153:24 Request RETICULOCYTE COUNT MANUL (30995)Indication: Anemia, unspecified On: :24 Request LDH (LD) (LACTATE DEHYDROGENASE) (30238)Indication: Anemia, unspecified On: 15-Ncs-074999:24 Request IRON BINDING CAPACITY (TIBC) (04621)Indication: Anemia, unspecified On: 88-Usp-852398:24 Request IRON (97316)Indication: Anemia, unspecified On: 93-Wpq-597710:24 Request CBC WITH MANUAL DIFF (71556)Indication: Anemia, unspecified On: 8-Xpw-904135:24 Request HEPATIC FUNCTION PANEL (46850)Indication: onychomycosis On: 5-Ptt-686748:15 Request TSH (11665)Indication: Hypertension On: 93-Dvx-843680:15 Request LIPID PANEL (53520)Indication: Hypertension On: 57-Atr-286782:15 Request METABOLIC PANEL, COMPREHENSIVE (97328)Indication: Hypertension On: 07-Gck-083844:15 Request CBC WITH MANUAL DIFF (73010)Indication: Hypertension On: 80-Ver-451899:14 Request PSA (PROSTATE SPECIFIC ANTIGEN) (V76.44)Indication: Screening for prostate cancer On: 43-Top-985574:12 Request PTT (Activated Partial Thromboplastin Time) (03187)Indication: Paresthesia On: 74-Tcz-704204:52 Request PT (Prothrobim Time) (36676)Indication: Paresthesia On: 48-Xgk-164118:52 Request TSH (47804)Indication: Paresthesia On: 04-Pkt-464404:52 Request METABOLIC PANEL, COMPREHENSIVE (19036)Indication: Paresthesia On: 06-Exa-965345:52 Request CBC WITH MANUAL DIFF (08312)Indication: Paresthesia On: 53-Ivz-999000:52 Request VITAMIN B-12 (CYANOCOBALAMIN) (30959)Indication: Paresthesia On: 04-Lhd-129630:52 Request C-REACTIVE PROTEIN (40927)Indication: Hypertension On: 00-Glf-672668:04 Request LIPID PANEL (92263)Indication: Hypertension On: 64-Lgi-842046:04 Request URINALYSIS W/O MICRO (91846)Indication: Hypertension On: :02 Request TSH (31513)Indication: Hypertension On: :02 Request CBC WITH MANUAL DIFF (02954)Indication: Hypertension On: 12-Ura-162893:02 Request METABOLIC PANEL, COMPREHENSIVE (86709)Indication: Hypertension On: :02 Request URINALYSIS W/O MICRO (75108)Indication: Proteinuria On: :02 Request Stool Guiac, Office (87939)Indication: Encounter for screening for malignant neoplasm of rectum On: 46-Lxw-684467:32 Request Planned Encounters Medical; 4 Month FU - On: 12-Mar-2018 8:00 [facility] Cari Portillo DO, DO, Kathleen Planned Procedures Spirometry (12874)By: Sanket VOGEL, On: 06-Nov-2017 Intent Cari Encinas DO Comments: normal and not taking inhalers -- treating inhalers instead ELECTROCARDIOGRAM, COMPLETE (ECG) On: 06-Nov-2017 Intent (70255)By: Cari Portillo DO Comments: nsr no acute chg -normal axis Cari Portillo DO Radiology - Knee - RightBy: Sanket On: 25-Sep-2017 Intent Cari VOGEL DO, Kathleen X-RAY OF FOOT, THREE VIEWS On: 25-Sep-2017 Intent (55524)By: Cari Portillo DO Comments: right Cari Portillo DO ELECTROCARDIOGRAM, COMPLETE (ECG) On: 06-Aug-2016 Intent (47173)By: Cari Portillo DO Comments: nsr no acute chg Cari Portillo DO Solu -Medrol Injection, 125 mg On: 20-Apr-2016 Intent (J2930)By: Cari Portillo DO Comments: Lot:[id number]:08/13Dose:125mgRoute:imSite:l hipGiven By:FRANKLIN signed Cari Portillo DO US DOPPLER CAROTID BILATERAL On: 02-Apr-2016 Intent (45835)By: Cari Portillo DO, DO, Kathleen Radiology - [...] Intent (J2930)By: Erika Uriarte CNP Comments: lot [id number] 3.15235 mgright gmIMas, RAMP JOCKEY Aerosol Treatment (60685)By: Laura On: 22-Feb-2014 Intent Erika CORONA Radiology - Shoulder - LeftBy: Fast On: 18-Jan-2014 Intent Oscar VOGELa A Comments: and ac joint COMP EYE EXAMINATION, ESTAB PATIENT On: 19-Oct-2013 Intent (53508)By: Erika Uriarte CNP Nerve ConductionBy: Fast DO, Kathie A On: 24-Jun-2013 Intent Comments: bilateral lower EMGBy: Fast DO, Kathie A On: 24-Jun-2013 Intent Comments: bilateral lower ext- right greater than left Eprescribed prescriptions ([id number])By: On: 24-Apr-2013 Intent Mckinley DO Kathie A MRI - Lumbar SpineBy: Mckinley DO Kathie On: 24-Apr-2013 Intent A MRI - Cervical SpineBy: Fast DO, On: 24-Apr-2013 Intent Kathie A ELECTROCARDIOGRAM, COMPLETE (ECG) On: 24-Apr-2013 Intent (13913)By: Fast DO, Kathie A Comments: ekg showed normal sinus rhythym, normal axis, no acute st/t wave changes - early repolar Radiology - Cervical SpineBy: Mckinley On: 07-Jan-2013 Intent DO, Kathie A Eprescribed prescriptions ([id number])By: On: 07-Jan-2013 Intent Karyn Hunter PHYSICAL THERAPY EVALUATION On: 23-Sep-2012 Intent (47209)By: Erika Uriarte CNP Radiology - Knee - LeftBy: Laura On: 23-Sep-2012 Intent Erika CORONA Comments: call with wet read to CIm Eprescribed prescriptions ([id number])By: On: 23-Sep-2012 Intent Laura CORONA Allyson SPECIMEN HNDLNG/TRNSPRT, OFFC > LAB On: 14-Jul-2012 Intent (68869)By: Naye Crain LPN Eprescribed prescriptions (G8553)By: On: 03-Apr-2012 Intent Mckinley DO, Kathie A Radiology - Lumbar SpineBy: Mckinley DO, On: 02-Apr-2012 Intent Kathie A Eprescribed prescriptions ([id number])By: On: 03-Mar-2012 Intent Karyn Hunter SPECIMEN HNDLNG/TRNSPRT, OFFC > LAB On: 13-Feb-2012 Intent ([id number])By: Naye Crain LPN Cartoid DopplerBy: Mckinley VOGEL Kathie A On: 31-Oct-2011 Intent Comments: nov Aerosol Treatment ([id number])By: Laura On: 04-May-2011 Intent CHLOE Allyson SPECIMEN HNDLNG/TRNSPRT, OFFC > LAB On: 04-May-2011 Intent ([id number])By: Naye Crain LPN Eprescribed prescriptions ([id number])By: On: 29-Jan-2011 Intent Fast DO, Kathie A FLU VAC, SPLIT, >3 YEARS, INTRAMUSC On: 29-Jan-2011 Intent ([id number])By: Karyn Hunter Comments: refuses TDAP VACCINE >7 IM ([id number])By: Al On: 24-Oct-2010 Intent Rocío Comments: Lot:[id number]:11/15/12Amt:prefilledRoute:IMSite:right deltGiven By: STACIA Kimbrough Cartoid DopplerBy: Fast DO, Kathie A On: 24-Oct-2010 Intent EKG ([id number])By: Karyn Hunter On: 24-Oct-2010 Intent Comments: ekg showed normal sinus rhythym, normal axis, no acute st/t wave changes ivcd- early re[polar no change Ultrasound - Abdomen CompleteBy: On: 29-Sep-2009 Intent Erika Uriarte CNP Comments: today and call wet read Heena Uriarte Rsecsoznm-Fbj-Rebzu ([id number])By: Laura On: 29-Sep-2009 Intent Erika CORONA Comments: today Radiology - ChestBy: Erika Uriarte CNP On: 29-Sep-2009 Intent Mickey Comments: AP and lateral today ELECTROCARDIOGRAM, COMPLETE (ECG) On: 30-Nov-2008 Intent ([id number])By: Erika Uriarte CNP Bio Z ([id number])By: Erika Uriarte CNP On: 30-Nov-2008 Intent Nerve ConductionBy: Mckinley DO, Kathie A On: 23-Mar-2008 Intent Comments: both upper extremities EMGBy: Fast DO, Kathie A On: 23-Mar-2008 Intent Comments: both upper ext MRI - Thoracic SpineBy: Fast DO, On: 23-Mar-2008 Intent Kathie A MRI - Cervical SpineBy: Fast DO, On: 23-Mar-2008 Intent Kathie A Ultrasound - GallbladderBy: Mckinley DO, On: 27-Jan-2007 Intent Kathie A Nuclear Stress Test/Stress On: 27-Jan-2007 Intent SPECT/TreadmillBy: Fast DO, Kathie A Echo CompleteBy: Fast DO, Kathie A On: 13-Jan-2007 Intent Cartoid DopplerBy: Fast DO, Kathie A On: 13-Jan-2007 Intent EKG ([id number])By: Mckinley DO Kathie A On: 13-Jan-2007 Intent Comments: [...] test (GTT)) : DISCONTINUED - HGB A1C ([id number]) Indication: Abnormal glucose tolerance test (Renamed from [...] has history of allergy, in past saw right of way agent was on allergy shots inpast. Also in [...] from Abnormal glucose tolerance test (GTT)) End: 5-Markell-2017 17:56 [facility] Annotation/Addendum On: 21-May-2016 [...] medical issues: he hasnt seen Basali or Sibilia- due to schedule gbut wi ll no [...] management- said he should go back to [facility]-- he said leg worse than the neck [...] he would like t tryi ncrease in [facility] for pain- no gerd- and breathing has [...] is better with lyrica and etodolac from [facility] and thought he had rheumatoid- - [...] at changing cpap becuase has plastic and right of way agent think allergic to that-- color changes in [...] Diagnostic Procedure Results: em End: 20-Apr-2008 22:14 gn neg- thinks with cutting back caffeine the [...] of sexual dysfunction-- [facility] disease[facility] to him for this-- varicose veins-- [facility] Diagnosis: PARESTHESIA (782.0), Anxiety [...] he gets redness- he will call his right of way agent regarding this- he is following with Jacques-- [...] note dictated [facility] Payers Medical [facility] Sydnee canales guarantor
--- OUTSIDE RECORDS SUMMARY | 2018-05-20 22:00 | XMS RPT_ITS | Continuity of Care Document ---
:1960 Author Organization [facility] Address [address] [place] [address] Phone Care Team Providers Name Role Phone Cari Coles DO Unavailable Andrea Garcia Unavailable Dr. Long Colmenares Unavailable [facility], [facility] Unavailable Dr. Fabio Robb Unavailable Dr. Markel Montes Unavailable Paco Schaffer Unavailable Axel SINGH, Graham Canales Unavailable Dr. Yariel Palmer Unavailable Ca Valenzuela Unavailable Fredi Perez Unavailable Kitty SINGH, Max Rodriguez Unavailable STACIA Rodriguez Unavailable Unavailable Reebkah Neff Unavailable Unavailable Kassi Brennan LPN Unavailable Unavailable Laura CORONA, Allyson Unavailable Unavailable Unavailable Problems Name Dates Details [...] Active Dizzy spells (R42, 780.4) Status: Active Eczema (L30.9, 692.9) Status: Active [...] Comments: chronic stable-continue present regimen Status: Active Low back pain potentially associated [...] consider neurontin Status: Active Rash (R21, 782.1) Status: Active Raynaud's syndrome (I73.00, 443.0) Status: [...] 0 days Quantity: 3 {Inhaler} Refills: 3 Ordered:14-Dec-2015 Mckinley Kathie Parker Start : 07-Feb-2015 Active ASPIRIN LOW DOSE, [...] Puff(s) daily for 0 days Quantity: 1 {[place]} Refills: 0 Ordered:09-Oct-2017 Sharon Coles DO, DO, Kathleen Start : 09-Oct-2017 Active FOLIC ACID, 1MG (Oral Tablet) 1 Tablet two times daily for 360 days Quantity: 30 {Tablet} Refills: 0 Ordered:02-Dec-2012 CherelleErika nation CNP Start : 02-Dec-2012 Active HYDROXYZINE HCL, [...] Refills: 3 Ordered:27-Feb-2017 Sanket VOGEL CariSanket Cari Start : 27-Feb-2017 Active SYEDA, 180MG (Oral [...] days Quantity: 20 {Tablet_ER_24HR} Refills: 0 Ordered:14-Jul-2012 Laura CORONAErika Start : 14-Jul-2012 End : 24-Jul-2012 Inactive [...] days Quantity: 30 {Tablet} Refills: 0 Ordered:12-Feb-2018 Erika Uriarte CNP Start : 09-Oct-2017 End : 12-Feb-2018 Inactive Meloxicam 15 MG Oral Tablet 1 (one) Tablet Tablet qd with food for 0 days Quantity: 20 {Tablet} Refills: 0 Ordered:12-Feb-2018 Erika Uriarte CNP Start : 25-Sep-2017 End : 12-Feb-2018 Inactive MYCELEX, 10MG (Mouth/Throat Cat) 1 Cat 5 x daily for 10 days Quantity: 50 {Cat} Refills: 0 Ordered:04-May-2011 Erika Uriarte CNP Start : 04-May-2011 End : 14-May-2011 Inactive VZBZYSKI-YPXFKWMQB-RQVZBIZA, 0.1% (Ophthalmic Suspension) apply ointment to each eye q hs (0.1 %) Inactive RHINOCORT AQUA, 32MCG/ACT (Nasal Suspension) 1 for 0 days Refills: 0 Ordered:04-May-2011 Paras PALOMONaye Start : 29-Dec-2008 End : 04-May-2011 Inactive [...] days Quantity: 30 {Tablet} Refills: 3 Ordered:09-Jun-2007 Juan Diego Fay Start : 09-Jun-2007 End : 09-Jun-2007 Discontinued [...] (I10, 401.9) Status: Inactive as of 17-Aug-2015 Itch of skin (L29.9, 698.9) Comments: currently on xyzal currently stop for 2 weeks, try alternative like syeda or zyrtec Status: Inactive as of 06-Aug-2016 Itching (L29.9, 698.9) Status: Inactive as of [...] Result: Comments: See Note; NOTES: [facility] [address] [place], [place] [phone] OFFICE VISIT Date of Service: 01/18/18 MR#: [id number] Acct: [id number] Name: WILLA MORROW Rep # : [id number] : 1960 Provider: STARR Payne Age/Sex: 57/M Location: [facility] Status: Signed Intake Vital Signs01/18/18 Body Mass [...] SC Q7D 0 03/29/17 [History Confirmed 01/18/18] PFSH Medical History Diabetes (Acute) Hay fever [...] (x 2 nights) and excessive sweating (at [facility] x 2 nights); no body ache, chills, [...] Cardio Cardiology: Positive for excessive sweating (at [facility] x 2 nights) and other (h/o [...] Endocrine: Positive for exc essive sweating (at [facility] x 2 nights); no fatigue, cold intolerance, flushing, heat intolerance or increased thirst/drinking Aller/Imm Allergy/Immunologic: No wheezing, itchy eyes (arms last 2 days), claude d intolerance, seasonal allergy symptoms or hives Du/Lymp Hematologic/Lymphatic: No easy bruising Exam Const General: cooperative, no acute distress Orientation: alert, oriented x3 [facility] Head: juanita l to inspection, normocephalic [...] signed by Landy CLEMENTS> Date aLndy CLEMENTS Alphonsebhavna Signature: Date (if applicable) CC: 01-Nov-2017 PT D/C Summary (1) Result: Comments: See Note; NOTES: [facility] Physical Therapy [facility] [address] [place] [address] Fax REHABILITATION SERVICES DISCHAR GE SUMMARY MR#: [id number] Acct: [id number] Name: WILLA MORROW Rep #: [id number] : 1960 57 From: Farrukh Mcleod DPT, JULIO, CSCS Referring Dr.: Cari Coles DO Status: REG RCR Insurance: [facility] SELF PAY INSURANCE HP - PT D/C Summary It has been my pleasure to treat ED R ZENA under orders from aCri Coles, for the diagnosis of BPPV for [...] feel free t o call me at [phone]. Thank you for the referral of this patient. Sincerely, Farrukh Mcleod DPT, OC <Electronically signed by Farrukh Mcleod DPT, JULIO, CSCS> 11/01/17 0645 CC: Cari Coles DO EBG Signed 24-Oct-2017 Inital Evaluation (1) - PT Result: Comments: See Note; NOTES: [facility] [address] [place] [address] Fax REHABILITATION SERVICES INITIAL EVALUATION MR#: [id number] Acct: [id number] Name: WILLA MORROW Rep #: [id number] : 1960 57 From: Farrukh MOLINAT, OCS, CSCS Referring Dr.: Cari Coles DO Status: REG RCR Insurance: [facility] [employer] SELF PAY INSURANCE Patient's Visit Information [...] to be FAXED BACK to us at [phone] for Medicare purposes. Please let me know if there are questions or concerns regarding this plan of care. Physician Signature: Date: <Electronically signed by Farrukh MOLINAT, OCS, CSCS> 0932 CC: Cari Coles DO EBG Signed For Medicare only, by signing this I certify the plan of care. Physicians Signature Date 25-Sep-2017 Foot min 3 Views Result: Comments: See Note; NOTES: [facility] Imaging Services [address] [place] [address] Foot min 3 Views MR#: [id number] Acct: [id number] Name: WILLA MORROW Rep #: [id number] : 1960 M 57 From: Davin Cárdenas MD PCP: Cari Coles DO Status: REG CLI Study: Foot min 3 Views Date of Exam: 09/25/17 Exam# [id number] Ordering Dr: Cari Coles DO STUDY: X-RAY [...] Service support , CC: Cari Coles DO Surgical Consultant: Signed 25-Sep-2017 Knee 4 or More Views Result: Comments: See Note; NOTES: [facility] Imaging Services [address] [place] [address] Knee 4 or More Views MR#: [id number] Acct: [id number] Name: WILLA MORROW Cristian Rep #: [id number] : 1960 M 57 From: Davin Cárdenas MD PCP: Cari Coles DO Status: REG CLI Study: Knee 4 or More Views Date of Exam: 09/25/17 Exam# [id number] Ordering Dr: Cari Coles DO STUDY: X-RAY [...] Service support , CC: Cari Coles DO Surgical Consultant: Signed 04-Jun-2017 Foot min 3 Views Result: Comments: See Note; NOTES: [facility] Imaging Services [address] [place] [address] Foot min 3 Views MR#: [id number] Acct: [id number] Name: WILLA MORROW Rep #: [id number] : 1960 M 56 From: Anuel Harrison MD PCP: Cari Coles DO Status: REG CLI Study: Foot min 3 Views Date of Exam: 06/04/17 Exam# [id number] Ordering Dr: Ruchi Valenzuela STUDY: X-RAY - [...] Harrison MD at 23:13 EDT Te l [phone], Service support , CC: Cari Coles DO; Ruchi Valenzuela DPM Surgical Consultant: Signed 04-Jun-2017 Foot min 3 Views Result: Comments: See Note; NOTES: [facility] Imaging Services [address] [place] [address] Foot min 3 Views MR#: [id number] Acct: [id number] Name: WILLA MORROW Rep #: [id number] : 1960 M 56 From: Anuel Harrison MD PCP: Cari Coles DO Status: REG CLI Study: Foot min 3 Views Date of Exam: 06/04/17 Exam# [id number] Ordering Dr: Ruchi Valenzuela STUDY: X-RAY - [...] support , CC: Cari Coles DO; Ruchi Horn DPM Surgical Consultant: Signed 29-Mar-2017 Urgent Care Visit Report Result: Comments: See Note; NOTES: [facility] [address] [place] [address] [place] [address] OFFICE VISIT Date of Service: 03/29/17 MR#: [id number] Acct: [id number] Name: WILLA MORROW Rep # : [id number] : 1960 Provider: Antonio CLEMENTS Age/Sex: 56/M Location: [facility] Status: Signed Intake Vital Signs03/29/17 Height 5 [...] mg SC Q7D 03/29/17 [History Confirmed 03/29/17] [facility] Medical History Diabetes (Acute) Hay fever [...] pattern Exam Const General: cooperative, healthy appearing HENWV Head: normal to inspection Ears: hearing grossly [...] vis,new,level 3 Diagnoses Sore throat J02.9 03/29/17 6666 <Electronically signed by Antonio CLEMENTS> Date Antonio CLEMENTS Cosigner Signature: Date (if applicable) CC: 08-May-2016 Operative Report Result: Comments: See Note; NOTES: [facility] Medical Records Department [address] [place] [address] Operative Report MR#: [id number] Acct: [id number] Name: WILLA MORROW Rep #: [id number] [...] Scope was withdrawn back in the [facility]. Retroflexion was performed. A view of the [...] Lashonda Bentley C: Cari Coles DO T: [facility] JOB: [id number] 05/08/16 1409 <Electronically signed by Long Colmenares MD> Date Long Colmenares MD Cosigner Signature (If Indicated): Date CC: Cari Dolan O; Long Colmenares Date Dictated: 04/26/16830 Date Transcribed: 04/26/16830 Surgical Consultant: Signed 18-Apr-2016 PT D/C Summary (1) Result: Comments: See Note; NOTES: [facility] [address] [place] [address] Fax [facility]ITATION [facility] MR#: [id number] Acct: [id number] Name: WILLA MORROW Rep #: [id number] : 1960 55 From: Farrukh Mcloed DPT, OCS, CSCS Referring DrLaina: Cari Coles DO Status: REG RCR Insurance: [facility] HP - PT D/C Summary It has [...] please feel free to call me at [phone]. Thank you for the referral of this patient. Sincerely, Farrukh Mcleod DPT, OC <Electronically sign ed by Farrukh Mcleod DPT, JULIO, CSCS> 04/18/16 0737 CC: Cari Coles DO EBG Signed -Mar-2016 Inital Evaluation (1) - PT Result: Comments: See Note; NOTES: [facility] [address] [place] [address] Fax REHABILITATION SERVICES INITIAL EVALUATION MR#: [id number] Acct: [id number] Name: WILLA MORROW Rep #: [id number] : 1960 55 From: Farrukh Mcleod DPT, JULIO, CSCS Referring Dr.: Cari Coles DO Status: REG RCR Insurance: [facility] Patient's Visit Information ED R ZENA is a 55 year old M referred [...] due to neck pain. Uses a Cpap. 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 No SCHERER and no [...] to be FAXED BACK to us at [phone] for Medicare purposes. Please let me know if there are questions or concerns regarding this suki n of care. Physician Signature: Date: <Electronically signed by Farrukh Mcleod DPT, OCS, CSCS> 03/30/16 0653 CC: Cari Coles DO EBG Signed For Medicare only, by signing this I certify the plan of care. Physicians Signature Date 17-Aug-2015 Spirometry (25786) Result: 17-Aug-2015 ELECTROCARDIOGRAM, COMPLETE (ECG) (51955) Comments: sinus jermaine - no acute chg Result: [MEASUREMENTS ANALYSIS] Date of Test: 08/17/2015 10:09:13; Heart Rate: 56; ND Interval: 160; QRS: 108; QT Interval: 380; Corrected QT Interval (QTc): 373; P Wave Sage: 41; QRS Wave Sage: 38; T Wave Sage : 32; Blood Pressure: 132/82 [ECG DIAGNOSTIC STATEMENTS] Date of Test: 08/17/2015 10:09:13; Summary: Sinus Bradycardia -Prominent R(V1) -nonspecific. BORDERLINE 13-Apr-2015 NCS and/or EMG Patient Result: Comments: See Note; NOTES: [facility] Pulmonary Services/Neurology [address] [place] [address] NCS and/or EMG Patient MR#: [id number] Acct: [id number] Name: JOEY MCGRATH ED R Rep #: [id number] : 1960 54 From: Quinn Wells Referring Dr: Kathie Sen DO Status: REG CLI Ordering Dr: Kathie Sen DO Date: 04/13/15 Location: [facility] Sex: M C DATE OF SERVICE: [...] referral. Quinn Wells MD T: NTS JOB: [id number] 04/13/15 2257 <Electronically signed by Quinn Wells > Date Quinn Wells CC: Kathie Sen DO; QUINN Dolan ate Dictated: 04/13/15833 Date Transcribed: 04/13/15833 Surgical Consultant: Signed 12-Feb-2015 Sleep Study Report Result: Comments: See Note; NOTES: [facility] [address] [place] [address] Polysomnography with NCPAP MR#: [id number] Acct: [id number] Name: WILLA MORROW Rep #: [id number] : 1960 54 From: Danis Verdugo MD PCP: Kathie Sen DO Status: REG CLI Ordering Dr.: Fredi Perez MD Date: 02/09/15 Sex: M C DATE OF SERVICE: 02/09/2015 SCORI NG RULES: Respiratory events were acquired and scored in accordance with the Recommended Standards and Specifications as outlined in the AASM Manual for the Scoring of Sleep and Associated Events ( mo recent version). Please note that a reference to [facility] AHI in this report is consistent with the current Hypopnea definition according to Medicare Criteria and an AAS AHI reference is consistent with the current Hypopnea definition according to the AASM criteria and is recognized by [facility] as the RDI. PROCEDURE: The study was attended continuously by a sales technician home theater. Monitored parameters includ ed left and right [...] body mass index of 45.8 and an [place] sleepiness scale score of 0. The patient [...] on. Danis merida MD T: NTS JOB: [id number] CC: Danis Verdugo MD 150 1503 02/12/15 1012 <Electronically signed by Danis Verdugo MD> Date Danis Verdugo MD Co-signature (if applicable) Date Signed 12-Jan-2015 Carotid Duplex Ultrasound Result: Comments: See Note; NOTES: [facility] Cardiovascular Services [address] [place] [address] Carotid Duplex Ultrasound 01/05/15 1537 MR#: [id number] Acct: [id number] Name: WILLA MORROW Cristian Rep #: [id number] : 1960 54 From: Seven Allison MD [...] the left vertebral artery. Procedure Carotid Duplex 77035. Exam per formed in department. Interpretation Summary Mild (<50%) stenosis right extracranial internal carotid. Mild (<50%) stenosis left extracranial internal carotid. Flow within the verte bral arteries is antegrade bilaterally. Ordering Physician: Kathie Sen Referring Physician: Kathie Winter D.O. Performed By: Shari Salinas 01/12/15802 Date Seven Allison MD CC: Kathie Sen DO Date Dictated: 01/05/15 1537 Date Transcribed: 01/12/15802 Surgical Consultant: Signed 20-Oct-2014 Shoulder min 2 Views Result: Comments: See Note; NOTES: [facility] Imaging Services [address] [place] [address] Radiology Report MR#: [id number] Acct: [id number] Name: WILLA MORROW R Rep #: [id number] : 1960 M 54 From: Chaim Bergeron MD PCP: Kathie Sen DO Status: REG CLI Study: Shoulder min 2 Views Date of Exam: 10/20/14 Exam# [id number] Ordering Dr: Anthony Teran DO STUDY: X-RAY [...] MD, FACR at 20:20 EDT T el [phone], Service support [phone], 0045 RAD/Shoulder min 2 Views IMPRESSION: Mild arthrosis of the acromioclavicular joint Electronically Signed: Marcos Bergeron MD, FACR at 20:20 EDT , Service support [phone], CC: Kathie Sen DO; Anthony Teran Surgical Consultant: Signed 05-Jul-2014 Emergency Department Summary Result: Comments: See Note; NOTES: [facility] Medical Records Department [address] [place] [address] Emergency Department Summary 07/05/14 1141 MR#: [id number] Acct: [id number] Name: WILLA MORROW Cristian Rep #: [id number] : 1960 53 From: Arsh Macias MD [...] DO at 12:53 EDT , Service support [phone], 07/05/14 11:49 Gallbladder [US] Stat La boratory [...] % Lymph % (Auto) 31.6 (19-41) % [place] % (Auto) 7.4 (0-10) % Eos % [...] 7.0 (5.0 - 8 .0) Ur Specific [place] 1.010 (1.002-1.030) Urine Protein Negative (Negative) mg/dl [...] Unknown Cause, (Male) Prescriptions: Hydrocodone Bitart/Apap 5-325 [Carnegie 5/325] 1 - 2 tablet PO Q4H PRN PRN #12 tablet PRN Reason: Pain Omeprazole [Prilosec] 20 mg PO DAILY #30 capsule Referrals: Fast,Kathie, DO [Primary Care Provider] - 3-5 Days What to do if you have Problems For any increased pain, shortness of breath, bleeding, nausea or vomiting, chest pa in, or any unexpected problems, contact your doctor. Call [facility] ([phone]) or report to the closest Emergency Room. Call 911 if necessary. 07/05/14 1502 <Electronically sig roscoe by Arsh Macias MD> Date Arsh Macias MD Cosigner Signature (If Indicated): Date CC: Kathie Sen DO 05-Jul-2014 Gallbladder Result: Comments: See Note; NOTES: [facility] Imaging Services [address] [place] [address] Ultrasound Report MR#: [id number] Acct: [id number] Name: WILLA MORROW Rep #: [id number] : 1960 M 53 From: Ja Saenz DO PCP: Kathie Sen DO Status: REG ER Study: Gallbladder Date of Exam: 07/05/14 Exam# [id number] Ordering Dr: Arsh Macias MD STUDY: ULTRASOUND [...] at 12:53 EDT , Servic e support [phone], CC: ARSH MACIAS MD; Kathie Sen DO Surgical Consultant: Signed 20-Jan-2014 Shoulder min 2 Views Result: Comments: See Note; NOTES: [facility] Imaging Services [address] [place] [address] Radiology Report MR#: [id number] Acct: [id number] Name: WILLA MORROW Rep #: [id number] : 1960 M 53 From: Arsh Mi MD PCP: Kathie Sen DO Status: REG CLI Study: Shoulder min 2 Views Date of Exam: 01/20/14 Exam# [id number] Ordering Dr: Kathie Sen DO STUDY: X-RAY [...] MD at 17:11 EST , Service support [phone], RAD/Shoulder min 2 Views IMPRESSION: No fracture. Joint spaces are well-preserved. Electronically Signed: Arsh Mi MD at 17:11 EST Tel , Service support [phone], CC: Kathie Sen DO Surgical Consultant: Signed 23-Sep-2013 NCS and/or EMG Patient Result: Comments: See Note; NOTES: [facility] Pulmonary Services/Neurology [address] [place] [address] NCS and/or EMG Patient MR#: [id number] Acct: [id number] Name: WILLA MORROW R Rep #: [id number] : 1960 53 From: Atif Samuels MD Referring Dr: Kathie Sen DO Status: REG CLI Ordering Dr: Kathie Sen DO Date: 09/16/13 Location: [facility] Sex: M C The patient presents [...] Dictated: 09/16/13 1138 Date Transcribed: 09/16/13 1244 Surgical Consultant: SCHERER Signed 15-May-2013 Spine Cervical (Routine) Result: Comments: See Note; NOTES: [facility] Imaging Services [address] [place] [address] MRI Report MR#: [id number] Acct: [id number] Name: ZENAWILLA R Rep #: [id number] : 1960 M 52 From: Chaim Bergeron MD PCP: Kathie Sen DO Status: REG CLI Study: Spine Cervical (Routine) Date of Exam: 05/15/13 Exam# [id number] Ordering Dr: Kathie Sen DO STUDY: MRI [...] M.D. at 9:11 EDT , Service support [phone], CC: Kathie Sen DO Surgical Consultant: Signed 15-May-2013 Spine Lumbar (Routine) Result: Comments: See Note; NOTES: [facility] Imaging Services [address] [place] [address] MRI Report MR#: [id number] Acct: [id number] Name: WILLA MORROW Rep #: [id number] : 1960 M 52 From: Chaim Bergeron MD PCP: Kathie Sen DO Status: REG CLI Study: Spine Lumbar (Routine) Date of Exam: 05/15/13 Exam# [id number] Ordering Dr: Kathie Sen DO STUDY: MRI [...] M.D. at 9:14 EDT , Service support [phone], CC: Kathie Sen DO Surgical Consultant: Signed 11-Feb-2013 PT Discharge Summary Result: Comments: See Note; NOTES: [facility] [address] [place] [address]. [address] [place] [id number] Fax REHABILITATION SERVICES DISCHARGE SUMMARY MR#: [id number] Acct: [id number] Name: WILLA MORROW R Rep #: [id number] : 1960 52 From: Shannen Anne Referring [...] C: Kathie Sen DO T: NTS JOB: [id number] <Electronically signed by Shannen Anne > 02/11/13 0952 CC: * Signed 14-Jan-2013 Inital Evaluation - PT Result: Comments: See Note; NOTES: [facility] [place] [id number] Fax REHABILITATION SERVICES INITIAL EVALUATION MR#: [id number] Acct: [id number] Name: WILLA MORROW R Rep #: [id number] : 1960 52 From: Shannen Anne Referring Dr.: Kathie Sen DO Status: REG R Insurance: [facility] ALEJANDRO Palacios Date: DATE OF SERVICE: 01/12/2013 SUBJECTIVE: This [...] He has 3 jobs. 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 He reports that life in crease [...] his complaint of left shoulder pain. Bilateral water analyst strength equals 90 pounds. Bilateral upper extremity [...] extremity. Shannen Anne, PT T: NTS JOB: [id number] <Electronically signed by Shannen Anne > 01/14/13 [...] kg/m2 Body Surface Area Calculated 2.1 m2 6-Meh-962642:00 Temperature 96.1 f Pulse 76 /min Comments: [...] :35 Hemoglobin A1c Comments: [facility] [address] [place], [place], [address] HGB A1C 5.7 % (Normal) Range: 4.2-6.3 70-Lom-904789:49 CBC W/Diff, Automated Comments: [facility] [address] [place], [address] Absolute Lymph 1.45 {X10_3/ul} (Normal) [...] 4.6-6.2 WBC 7.7 K/mm3 (Normal) Range: 4.4-11.0 60-Bcz-539671:49 Comprehensive Metabolic Profil Comments: [facility] [address] [place], [place], [id number] GAP 6 (Normal) Range: 5-15 CO2 28.0 [...] A.D.A. criteria.Please note revised GLUCOSE reference range leicevnnx39/02/2018. :37 CBC W/Diff, Automated Comments: [facility] [address] [place], [place], [address] Absolute Lymph 1.73 {X10_3/ul} (Normal) Range: 0.83-4.51 [...] 4.4-11.0 :37 Comprehensive Metabolic Profil Comments: [facility]AN [facility] [address] [place], [address] GAP 4 (Abnormal) Range: 5-15 CO2 29.0 [...] Please note revised GLUCOSE reference range /02/2018. 29-Jun-20178:37 Hemoglobin A1c Comments: [facility] [address] [facility] [address] [place], [place], [address] HGB A1C 6.0 % (Normal) Range: 4.2-6.3 :37 Lipid Profile Comments: TOM QUAN GETS [facility]CD,[facility] [address] [facility] [address]. [place], [place], [address] VLDL 9 mg/dL (Normal) Range: 5-40 LDL [...] High Risk :37 Microalb:Creat Ratio,Random UR Comments: [facility] [address] [place], [address] MALB:CREAT 4.1 {mg/g_CRE} (Normal) MICROALBUMIN,UR 10.9 mg/L (Normal) UR CREAT 264.00 mg/dL (Normal) :37 Thyroid Stim Hormone (TSH) Comments: TOM QUAN GETS [facility]CD,[facility] [address] [facility] [place], [address] TSH 0.84 {uIU/mL} (Normal) Range: 0.358-3.74 :37 Urinalysis, Complete Comments: How was Urine Obtained? CLEAN [facility] [address] [facility] [address] [place], [place], [address] MUCUS, URINE 0 SEEN {/hpf} (Normal) BACTERIA [...] Yellow (Normal) :37 Vitamin D,25 Hydroxy Comments: [facility] [address] [place], [place], [address] Vitamin D 25-OH 38.9 ng/mL (Normal) Range: 29.95-100.01 Comments: Vitamin D 25(OH) Status Range Deficiency <20 ng/mL (50nmol/L) Insuffciency 20 - 30 ng/mL (50 - 75 nmol/L) Sufficiency 30 - 100 ng/mL (75 - 250 nmol/L) Toxicity >100 ng/mL (>250 nmol/L) 49-Bfb-453262:02 CBC W/Diff, Automated Comments: [facility] [address] [place], [place], [address] Absolute Lymph 1.71 {X10_3/ul} (Normal) Range: 0.83-4.51 [...] 4.6-6.2 WBC 6.8 K/mm3 (Normal) Range: 4.4-11.0 81-Nym-619241:02 Comprehensive Metabolic Profil Comments: [facility] [address] [place], [place], [address] GAP 7 (Normal) Range: 5-15 CO2 30.0 mmol/L (Normal) Range: 21.0-32.0 CL 103 mmol/L (Normal) Range: 98-107 K 3.8 mmol/L (Normal) Range: 3.5-5.1 NA 140 mmol/L (Normal) Range: 136-145 T BILI 0.50 mg/dL (Normal) Range: 0.20-1.00 ALT 49 U/L (Normal) Range: 16-61 Comments: Please note revised ALT reference range posvergkf65/28/2018. ALK P 68 U/L (Normal) Range: 45-117 [...] Comments: Please note revised GLUCOSE reference range bmaqmdrpv52/02/2018. 96-Ykj-807210:01 Hemoglobin A1c Comments: [facility] [address]qgbycxew[address]. [place], [id number] HGB A1C 5.8 % (Normal) Range: 4.2-6.3 :12 CBC W/Diff, Automated Comments: [facility] Hpgvfrmizf9[address]. [place], [address] Absolute Lymph 1.51 {X10_3/ul} (Normal) Range: 0.83-4.51 [...] 4.6-6.2 WBC 5.2 K/mm3 (Normal) Range: 4.4-11.0 :12 Comprehensive Metabolic Profil Comments: [facility] Xinjdfxksv5[address] [place], [address] GAP 6 (Normal) Range: 5-15 CO2 30.0 [...] 7-18 GLU 96 mg/dL (Normal) Range: 70-110 90-Ntl-461570:11 Pathology Report Comments: PERFORMED BY: KWCYT [facility] [place] Cyto Vfnmt74491 [facility] [id number] BY: General acute hospital Dermatopathology Cskwlwc8[address] [id number] Information: [id number] See MATER Comments: Material submitted: .RIGHT LOWER [...] CASSETTE(S) A./LMSLMS/LMSPatho logist provided ICD-10:L82.1, L44.9, I87.9CPT .137966 2-Pcw-245832:42 CBC W/Diff, Automated Comments: DR SANTOS ORDERED CMP CBCDDR SANKET ORDERED A1C LIPID CMP LOREN CBCD TSH [facility] Xgvsnxvtvr2461 [facility] [place], [address] Absolute Lymph 2.23 {X10_3/ul} (Normal) Range: 0.83-4.51 [...] 4.6-6.2 WBC 7.4 K/mm3 (Normal) Range: 4.4-11.0 3-Vlk-638688:42 Comprehensive Metabolic Profil Comments: DR SANTOS ORDERED CMP CBCDDR SANKET ORDERED A1C LIPID CMP LOREN CBCD TSH [facility] Fmdgdethrx8368 [place], [place], [address] GAP 9 (Normal) Range: 5-15 CO2 26.0 [...] 7-18 GLU 93 mg/dL (Normal) Range: 70-110 6-Nuf-245147:42 Hemoglobin A1c Comments: DR SANTOS ORDERED CMP CBCDDR SANKET ORDERED A1C LIPID CMP [facility] CBCD [facility] [address]md[address] [place], [place], [address] HGB A1C 6.0 % (Normal) Range: 4.2-6.3 2-Uxz-672729:42 Lipid Profile Comments: DR SANTOS ORDERED CMP CBCDDR SANKET ORDERED A1C LIPID [facility] [address] [place], [place], [phone] VLDL 14 mg/dL (Normal) Range: 5-40 LDL [...] 200-240 mg/dL Borderline >240 mg/dL High Risk 2-Edp-787374:42 Microalb:Creat Ratio,Random UR Comments: DR SANTOS ORDERED CMP CBCDDR SANKET ORDERED A1C LIPID CMP LOREN CBCD TSH [facility] Hzopzwfweh0181 [address] [place], [place], [address] MALB:CREAT Test not performed {mg/g_CRE} (Normal) MICROALBUMIN,UR < 5.0 mg/L (Normal) UR CREAT 17.60 mg/dL (Normal) 1-Hnf-593413:42 Thyroid Stim Hormone (TSH) Comments: DR SANTOS ORDERED CMP CBCDDR SANKET ORDERED A1C LIPID CMP LOREN CBCD TSH [facility] Gzkbsxcqss8805 [address] [place], [place], [address] TSH 1.18 {uIU/mL} (Normal) Range: 0.358-3.74 1-Iqi-931111:42 Urinalysis, Complete Comments: DR SANTOS ORDERED CMP CBCDDR SANKET ORDERED A1C LIPID CMP LOREN CBCD TSH UACHow was Urine Obtained? CLEAN [facility] Xcmoxubjhx5230 [address] [place], [place], [address] MUCUS, URINE 0 SEEN {/hpf} (Normal) BACTERIA [...] Yellow (Normal) 01-Aug-20168:26 CBC W/Diff, Automated Comments: [facility] [address] [place], [address] Absolute Lymph 1.18 {X10_3/ul} (Normal) [...] Range: 4.4-11.0 01-Aug-20168:26 Comprehensive Metabolic Profil Comments: [facility] [address]uf[address] [place], [place], [address] GAP 6 (Normal) Range: 5-15 CO2 31.0 [...] :26 Hemoglobin A1c Comments: [facility] Nwhrxxziie8063 [facility]. [place], [place], [address] HGB A1C 6.1 % (Normal) Range: 4.2-6.3 01-Aug-20168:26 Lipid Profile Comments: [facility] Avexaigadm8149 [facility]. [place], [place], [address] VLDL 12 mg/dL (Normal) Range: 5-40 LDL [...] Microalb:Creat Ratio,Random UR Comments: [facility] Rdtopgdmpx5390 [place], [address] MALB:CREAT Test not performed {mg/g_CRE} (Normal) MICROALBUMIN,UR < 5.0 mg/L (Normal) UR CREAT 76.30 mg/dL (Normal) :26 Thyroid Stim Hormone (TSH) Comments: [facility] [address]slf[address] [place], [address] TSH 1.08 {uIU/mL} (Normal) Range: 0.358-3.74 :26 Urinalysis, Complete Comments: How was Urine Obtained? CLEAN [facility] Wirlvumvxq5754 [facility] [place], [address] MUCUS, URINE 0 SEEN {/hpf} (Normal) [...] Vitamin D,25 Hydroxy Comments: [facility] Glcimggkdp2548 [facility] [place], [address] Vitamin D 25-OH 44.6 ng/mL (Normal) Comments: Vitamin D 25(OH) Status Range Deficiency <20 ng/mL (50nmol/L) Insuffciency 20 - 30 ng/mL (50 - 75 nmol/L) Sufficiency 30 - 100 ng/mL (75 - 250 nmol/L) Toxicity >100 ng/mL (>250 nmol/L) :32 CBC W/Diff, Automated Comments: [facility] Nlqcdmzmgi34[address] [place], [place], [address] Absolute Lymph 1.73 {X10_3/ul} (Normal) Range: 0.83-4.51 [...] 4.6-6.2 WBC 7.3 K/mm3 (Normal) Range: 4.4-11.0 12-Bah-731621:32 Comprehensive Metabolic Profil Comments: [facility] Gxksktsvdz90[address] [facility] [address] [place], [place], [address] GAP 6 (Normal) Range: 5-15 CO2 30.0 [...] See Note (Normal) Comments: [facility] [address]bfrms[address] [place], [place], [address] 00 Comments: Patient: WILLA MORROW : 1960 (55/M) Acct Num: [id number] Phys: Long Colmenares Unit Num: [id number] Loc: EN Specimen: [id number] Received: 04/26/1648 Spec Type: Gastric B x TISSUES TISSUES: COMMENT The results of immunohistochemistry for Helicobacter pylori will be reported separately ([id number]). GROSS DESCRIPTION Received is one container labele d with the patient's name and designated antrumbody biopsy. The specimen consists of multiple irregular fragments of light andrade soft tissue that in aggregate measure 0.5 x 0.3 x 0.1 cm. The specimen is totally submitted in one cassette. / SJ:xochitl 04/26/16 TC:3 CPT: 01384 HEADER OPERATION: EGD PRE-OP DIAGNOSIS: Epigastric pain [...] See Note (Normal) Comments: [facility] Wiwckccfay97[address] [place], [address] 00 Comments: Patient: WILLA MORROW : 1960 (55/M) Acct Num: [id number] Phys: Long Colmenares Unit Num: [id number] Loc: EN Specimen: [id number] Received: 04/27/16 - 1001 Spec Type: IMMUNO TISSUES TISSUES: SPECIMEN INFORMATION: Tissue Source: Antrum body biopsy Clinical Info: Epigastric pain Specimen Number: [id number] CPT code: 88889 METHODOLOGY: Deparaffiniz ed sections of prefer/formalin-fixed tissue [...] performance characteristics determined by [facility]. They may not have been cleared or a pproved by the U.S. Food and Drug Administration. The FDA has determined that such clearance or approval is not necessary. INTERPRETATION: Antrum body biopsy: Negative for Helicobacter pylori or ganisms. SJ:xochitl 04/30/16 PHYSICIAN AND INSTITUTION [facility] [address] [place], [place] [address] Signed Cy Kendell 04/30/16 <signature on file> 99-Qna-763777:27 Hemoglobin A1c Comments: [facility] Rxgeljcdtl4[address] [place], [place], [address] HGB A1C 5.8 % (Normal) Range: 4.2-6.3 :58 CBC W/Diff, Automated Comments: [facility] [address]rrm[address]ujwy[address] [place], [place], [address] Absolute Lymph 1.42 {X10_3/ul} (Normal) Range: 0.83-4.51 [...] Comprehensive Metabolic Profil Comments: [facility] C[address]wlplqoj67[address] [place], [address] GAP 6 (Normal) Range: 5-15 CO2 30.0 [...] 7-18 GLU 99 mg/dL (Normal) Range: 70-110 34-Clt-064678:00 Hemoglobin A1c Comments: [facility] [address]jlojwerab4[address] [place], [place], [address] HGB A1C 5.9 % (Normal) Range: 4.2-6.3 09-Qpa-542729:02 CBC W/Diff, Automated Comments: DR SANTOS ORDERED CMP CBCDDR SANKET ORDERED LIPID TSH CBCD [facility] Tuwdgsubqj8468 [address] [place], [place], [address] Absolute Lymph 1.32 {X10_3/ul} (Normal) Range: 0.83-4.51 [...] 4.6-6.2 WBC 7.8 K/mm3 (Normal) Range: 4.4-11.0 30-Mvt-164276:02 Comprehensive Metabolic Profil Comments: DR SANTOS ORDERED CMP CBCDDR SANKET ORDERED LIPID TSH CBCD [facility] Xcjsqdahbv8048 [facility] [address]. [place], [place], [address] GAP 6 (Normal) Range: 5-15 CO2 28.0 [...] 7-18 GLU 93 mg/dL (Normal) Range: 70-110 02-Xsz-770910:02 Lipid Profile Comments: DR SANTOS ORDERED CMP CBCDDCristian COLES ORDERED LIPID TSH CBCD [facility] Forzkonayn7456 [address] [place], [place], [address] VLDL 11 mg/dL (Normal) Range: 5-40 LDL [...] 200-240 mg/dL Borderline >240 mg/dL High Risk 60-Nia-929415:02 Thyroid Stim Hormone (TSH) Comments: DR SANTOS ORDERED CMP CBCDDR SANKET ORDERED LIPID TSH CBCD [facility] Gezlpmfxeq5088 [place], [address] TSH 0.80 {uIU/mL} (Normal) Range: 0.358-3.74 43-Anv-684340:02 Vitamin D,25 Hydroxy Comments: DR SANTOS ORDERED CMP CBCDDR SANKET ORDERED LIPID TSH CBCD [facility] Gngaoebnth8249 [place], [address] Vitamin D 25-OH 50.7 ng/mL (Normal) Comments: Vitamin D 25(OH) Status Range Deficiency <20 ng/mL (50nmol/L) Insuffciency 20 - 30 ng/mL (50 - 75 nmol/L) Sufficiency 30 - 100 ng/mL (75 - 250 nmol/L) Toxicity >100 ng/mL (>250 nmol/L) :30 Hemoglobin A1c Comments: [facility] Ukpgcfmtde0024 [place], [address] HGB A1C 5.7 % (Normal) Range: 4.2-6.3 :30 Lipid Profile Comments: [facility] Hkguizhpya8459 [place], [address] VLDL 10 mg/dL (Normal) Range: 5-40 [...] Microalb:Creat Ratio,Random UR Comments: [facility] [address] [place], [place], [address] MALB:CREAT 3.7 {mg/g_CRE} (Normal) MICROALBUMIN,UR 6.1 mg/L (Normal) UR CREAT 163.00 mg/dL (Normal) :30 Thyroid Stim Hormone (TSH) Comments: [facility] [address] [place] [address], [address] TSH 1.14 {uIU/mL} (Normal) Range: 0.358-3.74 :30 Urinalysis, Complete Comments: How was Urine Obtained? [facility] [address]or[address] [place], [place], [address] MUCUS, URINE RARE {/hpf} (Normal) BACTERIA RARE [...] (Normal) CLARITY Clear (Normal) COLOR Yellow (Normal) 28-Deh-52855:30 Vitamin D,25 Hydroxy Comments: [facility] Otmezclpcp75[address] [place], [address] Vitamin D 25-OH 46.5 ng/mL (Normal) Comments: Vitamin D 25(OH) Status Range Deficiency <20 ng/mL (50nmol/L) Insuffciency 20 - 30 ng/mL (50 - 75 nmol/L) Sufficiency 30 - 100 ng/mL (75 - 250 nmol/L) Toxicity >100 ng/mL (>250 nmol/L) 00-Ikv-691857:29 CBC W/Diff, Automated Comments: [facility] Zcovbnsapg2044 [address] [place], [address] Absolute Lymph 1.74 {X10_3/ul} (Normal) Range: 0.83-4.51 [...] 4.6-6.2 WBC 6.5 K/mm3 (Normal) Range: 4.4-11.0 04-Zol-104610:29 Comprehensive Metabolic Profil Comments: [facility] Qccdpfioth5594 [address] [place], [place], [address] GAP 4 (Abnormal) Range: 5-15 CO2 31.0 [...] <126 mg/dLsuggests IMPAIRED HOMEOSTASIS per A.D.A. criteria. 07-Fnv-489117:01 CBC W/Diff, Automated Comments: [facility] Bcbdccgpwv4215 [address] [place], [place], [address] ; ordered by Max Absolute Lymph 1.83 [...] 4.6-6.2 WBC 5.7 K/mm3 (Normal) Range: 4.4-11.0 97-Ozw-533973:01 Comprehensive Metabolic Profil Comments: [facility] Plkygjomik8[address] [place], [place], [address] GAP 5 (Normal) Range: 5-15 CO2 30.0 [...] 7-18 GLU 87 mg/dL (Normal) Range: 70-110 2-Hoc-590636:24 Alanine Aminotransferas (SGPT) Comments: [facility] [address] [place], [place], [phone] 33 U/L (Normal) Range: 12-78 3-Vxd-370655:24 Albumin, Serum Comments: [address] [place], [place], [address](655) ALB 3.6 g/dL (Normal) Range: 3.4-5.0 4-Xmd-679975:24 Alkaline Phosphatase Comments: [address] [place], [place], [phone] [phone] P 71 U/L (Normal) Range: 50-136 4-Kzi-020202:24 AST(SGOT) Comments: [address] [place], [place], [address] AST 26 U/L (Normal) Range: 15-37 Comments: Slight Hemolysis, Result may be falsely increased. :24 Bilirubin, Total Comments: [facility] Jsmtdpobju[address]. [place], [address] T BILI 0.20 mg/dL (Normal) Range: 0.20-1.00 :24 BUN 17 mg/dL (Normal) Comments: [facility] Fteqbgiojv1740 [address] [place], [address] Range: 7-18 6-Yxd-804259:24 Calcium,Total Comments: [facility] Pphigbqoje0479 [address]. [place], [address] CA 8.3 mg/dL (Abnormal) Range: 8.5-10.1 :24 CBC W/Diff, Automated Comments: [place] [address] [address] [place], [address] Absolute Lymph 1.86 {X10_3/ul} (Normal) Range: 0.83-4.51 [...] 4.4-11.0 :24 Glucose Comments: [facility] Upuordlfmw03[address] [place], [address] GLU 99 mg/dL (Normal) Range: 70-110 2-Pud-738961:24 Hepatitis C Antibodies Comments: [facility] (refer to report for specific site)refer to report for address and phone number; ordered by sg HEP C AB <0.1 {s/co_ratio} (Normal) Range: 0.0-0.9 Comments: Negative: < 0.8 Indeterminate: 0.8 - 0.9 Positive: > 0.9 In order to reduce the incidence of a false positive result, the CDC recommends that all s/co ratios between 1.0 and 10.9 be confirmed by a more specific supplemental or PCR testing. [facility] offers HCV Ab w/Reflex to Verification test #[id number]. 2-Wti-045528:24 Lyme AB/Total Immuno Comments: [facility] (refer to report for specific site)refer to report for address and phone number LYME Comments: TEST RESULT LIMITSLyme, Total Ab Test/ReflexLyme IgG/IgM Ab <0.91 ISR 0.00 - 0.90 Negative <0.91 AB (Normal) Equivocal 0.91 - 1.09 Positive >1.09 TESTING PERFORMED AT [facility] [address] RIGINAL REPORT ON FILE IN LAB CONTAINS ADDITIONAL TEST SITE INFORMATION. 7-Iip-603676:24 Protein Electroph, S Comments: [facility] (refer to report for specific site)refer to report for address and phone number NOTE: Comment (Normal) Comments: The SPE pattern appears essentially unremarkable. Evidenceof monoclonal protein is not apparent. INTERPRETATION Comment (Normal) Comments: Protein electrophoresis scan will follow via computer,mail, or turkey farmer delivery. A/G RATIO 1.5 (Normal) Range: 0.7-2.0 GLOBULIN, TOTAL 2.6 g/dL (Normal) Range: 2.0-4.5 M-SPIKE (Normal) Comments: Not Observed GAMMA GLOBULIN 0.8 g/dL (Normal) Range: 0.5-1.6 BETA GLOBULIN 1.0 g/dL (Normal) Range: 0.6-1.3 ALPHA-2 GLOBUL 0.6 g/dL (Normal) Range: 0.4-1.2 ALPHA-1 GLOBUL 0.2 g/dL (Normal) Range: 0.1-0.4 ALBUMIN 3.9 g/dL (Normal) Range: 3.2-5.6 PROTEIN,TOTAL 6.5 g/dL (Normal) Range: 6.0-8.5 4-Jna-372258:24 Protein, Total Comments: [facility] [address]shqgc[address] [facility] [address] [place], [place], [address](975) A/G 1.1 {RATIO} (Normal) Range: 0.9-2.4 GLOB 3.3 g/dL (Normal) Range: 2.3-3.5 T PROT 6.9 g/dL (Normal) Range: 6.4-8.2 4-Oir-799659:24 Serum Creatinine AND GFR Comments: [facility] [address] [place], [place], [address] EST GFR - AA 96 mL/min (Normal) Comments: GFR Calc EST GFR 79 mL/min (Normal) Comments: Non- GFR Calc CREAT,SERUM 1.03 mg/dL (Normal) Range: 0.70-1.30 Comments: The validity of the calculated GFR AND GFRAA in patients over70 years has not been determined. Clinical correlation isessential. 1-Zbf-379486:24 Thyroid Stim Hormone (TSH) Comments: [facility] Qeiowircef8783 [address] [place], [address] TSH 1.34 {uIU/mL} (Normal) Range: 0.358-3.74 7-Kwe-195922:24 Uric Acid Comments: [facility] [address] [place], [address] URIC 4.7 mg/dL (Normal) Range: 3.5-7.2 :19 CBC W/Diff, Automated Comments: [facility] [address] [place], [address] Absolute Lymph 1.45 {X10_3/ul} (Normal) Range: 0.83-4.51 [...] 4.6-6.2 WBC 4.5 K/mm3 (Normal) Range: 4.4-11.0 :19 Comprehensive Metabolic Comments: ORDERED PSA,CMP,CBCD,UACDR.TOM ORDERED CBCD,[facility] O[address]pyznfmsf98[address] [place], [address] Profil GAP 6 (Normal) Range: 5-15 CO2 [...] - Annual Screen Comments: ORDERED PSA,CMP,CBCD,UACDR.TOM ORDERED CBCD,[facility] Qrvgtzrwdt8655 [place], [address] PSA,TOT SCREEN 0.55 ng/mL (Normal) Range: 0.00-4.00 Comments: This test was performed using the TPSA assay method for eTect chemistry system. Values obtained with differentassay methods cannot be used interchangably.When changing PSA assays in the course of monitoring apatient, additional sequential testing should be carriedout to confirm baseline values. :19 Urinalysis, Complete Comments: How was Urine Obtained? [facility] Ypqesmloxe5528 [place], [address] MUCUS, URINE 1+ {/hpf} (Normal) [...] Automated Comments: Test performed at:[facility] [address]zpsvqyy5[address] [place] [address] Absolute Lymph 1.96 {X10_3/ul} (Normal) [...] 4.6-6.2 WBC 6.0 K/mm3 (Normal) Range: 4.4-11.0 94-Gsd-798727:42 Comprehensive Metabolic Profil Comments: Test performed at:[facility] Ipwzsylasz26[address] [place] [address] ; handled by prafulki GAP 4 (Abnormal) Range: 5-15 CO2 30.0 [...] Comments: Please note revised CREATININE reference range abbaujpxt17/22/2015. BUN 19 mg/dL (Abnormal) Range: 7-18 GLU 93 mg/dL (Normal) Range: 70-110 03-Whp-367571:13 Liver Profile Comments: Test performed at:[facility] [address] [place] [address] ; ordered by Dr. Milagros Dolan BILI 0.11 mg/dL (Normal) Range: 0.00-0.30 T BILI 0.30 mg/dL (Normal) Range: 0.00-4.00 ALT 34 U/L (Normal) Range: 12-78 ALK P 63 U/L (Normal) Range: 50-136 AST 27 U/L (Normal) Range: 15-37 GLOB 3.1 g/dL (Normal) Range: 2.7-4.2 ALB 3.8 g/dL (Normal) Range: 3.4-5.0 T PROT 6.9 g/dL (Normal) Range: 6.4-8.2 96-Anx-502561:30 CBC W/Diff, Automated Comments: Test performed at:[facility] [address] [place] [address] Absolute Lymph 2.16 {X10_3/ul} (Normal) Range: [...] 4.6-6.2 WBC 6.2 K/mm3 (Normal) Range: 4.4-11.0 11-Roq-986181:30 Comprehensive Metabolic Profil Comments: Test performed at:[facility] [address]knhcuodws[address] [place], [place] [address] ; handled by edmund SULLIVAN 3 (Abnormal) Range: 5-15 CO2 29.0 mmol/L [...] 126 mg/dLsuggests DIABETES MELLITUS per A.D.A. criteria. 50-Tny-286052:16 Rapid Flu (93052 x 2) Influenza A Ag negative (Normal) 06-Csp-857491:05 CBCD ALC 1.47 {X10_3/ul} (Normal) Range: 0.83-4.51 [...] performed using the TPSA assay method for theWorkstreamer chemistry system. Values obtained with differentassay methods cannot be used interchangably.When changing PSA assays in the course of monitoring apatient, additional sequential testing should be carriedout to confirm baseline values. :05 [facility] Comments: How was Urine Obtained? CLEAN [...] (Normal) UCLAR Clear (Normal) UCOL Yellow (Normal) 46-Uuv-920310:41 CBCD ALC 1.77 {X10_3/ul} (Normal) Range: 0.83-4.51 [...] 4.6-6.2 WBC 5.3 K/mm3 (Normal) Range: 4.4-11.0 39-Vfe-369411:41 CMP GAP 7 (Normal) Range: 5-15 CO2 [...] 4.6-6.2 WBC 6.6 K/mm3 (Normal) Range: 4.4-11.0 02-Gcc-058519:50 TSH 1.01 {uIU/mL} (Normal) Range: 0.358-3.74 55-Fnr-215282:29 URINE YUE CULTURE-MALIA COL Comments: PATIENT NOT FASTINGPERFORMED BY: [facility] [id number] Information: SRC:UR [id number] COUNT (74096) Result 1 MUG (Normal) Comments: Mixed urogenital flora1,000 Colonies/mL Urine Culture,Comprehensive Final report (Normal) 96-Umh-245621:37 Urinalysis, Office (40517) UA - BILIRUBIN Large (Normal) UA - [...] K/mm3 (Normal) Range: 4.4-11.0 :53 CMP Comments: ERIKA URIARTE CNP ORDERED CMP [...] CHOL 135 mg/dL (Normal) Comments: <200 mg/dL Poweaneak752-928 mg/dL Borderline>240 mg/dL High Risk :53 PSAD 0.56 ng/mL (Normal) Comments: ERIKA URIARTE CNP ORDERED CMP ONLY Range: 0.0-4.0 Comments: This test was performed using the TPSA assay method for theLSAT Freedom chemistry system. Values obtained with differentassay methods cannot be used interchangably.When changing PSA assays in the course of monitoring apatient, additional sequential testing should be carriedout to confirm baseline values. 46-Twx-08603:53 UA Comments: How was Urine Obtained? CLEAN CATCH BLUE 25 /ul (Abnormal) UOB Negative /ul (Normal) CATHERINE Negative (Normal) UROBU Normal mg/dL (Normal) uPROTU 15 mg/dL (Abnormal) YAZ 6.0 (Normal) Range: 5.0 - 8.0 SGU 1.025 (Normal) Range: 1.002-1.030 KETU Negative mg/dL (Normal) BILIU 3 mg/dL (Abnormal) GLUR Normal mg/dL (Normal) UCLAR Clear (Normal) UCOL Yellow (Normal) 41-God-133251:20 KNEE 4 OR MORE VIEWS Radiology Report [...] harper M.D.September 23, 2012 at 2:44:59 PM [id number] Signed GP/GP If you are the referring physician and would like to consult with theradiologist who provided this interpretation, please c mike Menjivar M.D. at [phone]. If this radiologist is unavailable, youwill be directed to another radiologist to assist. If you are a patient with a question regarding this report, emili la referring physician directly. Professional Interpretation Provided By: Shaheen, Phone , These documents contain legally protected [...] destructionofthese documents. Dictated on 09/23/12 1444 by Nomi SINGH,LakeshiaeleTranscribed on 09/23/12 1451 by ITS IMPORTSign by Dagoberto Cox MD on 09/23/12 1452 Sign by: Dagoberto Cox MD 06-Xzt-903948:19 Rapid Strep Test, Office (07891) Comments: neg Rapid Strep Test, Office Negative (Normal) 4-Ncn-711480:41 L/S SPINE,MIN 4 VIEWS Radiology Report See [...] Cox M.D.April 02, 2012 at 1:16:13 PM [id number] Signed GP/GP If you are th e referring physician and would like to consult with theradiologist who provided this interpretation, please contact Raj Menjivar at [phone]. If this radiologist is unavailable, youwill be directed to another radiologist to assist. If you are a patient with a question regarding this report, pleasecontactyour referring physician directly. Professional Interpretation Provided By: [employer] here, Phone , These documents contain legally [...] High > or = 500 mg/dL :18 [facility] AMORP 3+ (Normal) UMUC 0 SEEN [...] 6 mg/dL (Abnormal) Comments: DUE TO A PROJECT MANAGER'S BACKORDER OF THE ICTOTEST TEST, URINE BILIRUBIN COMFIRMATORY TESTING FOR ALL POSITIVERESULTS WILL BE SUSPENDED. TESTING WILL RESUME WHEN THEICTOTEST TEST IS AVAILABLE. GLUR Normal mg/dL (Normal) UCLAR Cloudy (Normal) UCOL Yellow (Normal) 87-Cfn-07881:30 YUE CULTURE-OTHER (09742) Comments: PATIENT NOT FASTINGPERFORMED BY: [facility]16 [facility] [id number] Information: SRC:THRT [id number] Result 1 MORACA (Normal) Comments: Moraxella (branhamella) catarrhalisHeavy growthBeta lactamase positive. Upper Respiratory Culture Final report (Normal) :01 [facility] UMUC 0 SEEN {/hpf} (Normal) UBAC 0 [...] PSA 0.5 ng/mL (Normal) Range: 0.0-4.0 :42 [facility] UMUC 0 SEEN {/hpf} (Normal) UBAC [...] D deficiency has been defined by the [place] of[place] and an Endocrine Society practice guideline as alevel of serum 25-OH vitamin D less than 20 ng/mL (1,2).The Endocrine Society went on to further define vitamin Dinsufficiency as a level between 21 and 29 ng/mL (2).1. IOM ([place] of [employer]). 2010. Dietary reference intakes for calcium and D. [place] [place]: The National Academies Press.2. Cesario MF, Dylan NC, Haydee-Carl SCHERER, et al. Evaluation, treatment, and prevention of vitamin D deficiency: an Endocrine Society clinical practice guideline. JCEM. 2010; 96(7): 1911-30.Performed at: [address] [id number] Director: Concha Jarrell MD, Phone: [phone] :[phone] YUE CULTURE-OTHER (96427) Comments: PATIENT NOT FASTINGPERFORMED BY: [facility] [id number] Information: SRC:THRT [id number] Result 1 RRF (Normal) Comments: Routine respiratory hernán Upper Respiratory Culture Final report (Normal) :41 Rapid Strep Test, Office (22591) Rapid Strep Test, Office Negative (Normal) :55 [...] ug/dL (Normal) Range: 250-450 :03 VIT D,25 62442 45.7 ng/mL (Normal) Range: 32.0-100.0 Comments: Recent studies consider the lower limit of 32.0 ng/mL to jennifer threshold for optimal health.Remigio GIBSON. J Nutr. 2004;135(2):317-22.Performed at: - [facility] [address] [id number]Lab Director: Concha Jarrell MD, Phone: [phone] :[phone] FECAL OCCULT- Tubes sent home (59120) FECAL OCCULT HGB ASSAY, Negative (Normal) QUAL, [...] SED RATE 4 mm/h (Normal) Range: 0-20 5-Iff-772544:04 CBCD,SMEAR DIFF BAND 2 % (Normal) Range: [...] 11.6-14.6 WBC 4.7 K/mm3 (Normal) Range: 4.4-11.0 5-Zqs-660740:04 COMP METABOLIC GAP 6 (Normal) Range: 5-15 [...] 6.4-8.2 GLU 92 mg/dL (Normal) Range: 70-110 6-Rbg-854290:04 D BILI 0.14 mg/dL (Normal) Range: 0.00-0.30 :17 RIBS UNIL 2V NO CXR Radiology Report See Note (Normal) Comments: Exam Number: [id number] CLINICAL:This is a 49-year-old male patient with [...] Report See Note (Normal) Comments: Exam Number: [id number] CLINICAL:This is a 49-year-old male patient with [...] Report See Note (Normal) Comments: Exam Number: [id number] CLINICAL:This is a 49-year-old male patient with [...] abdominal ultrasound examination. Reported By: DAGOBERTO COX :37 Urinalysis, Office (17279) UA - LEUKOCYTE ESTERASE Negative (Normal) UA - NITRITE Negative (Normal) URINE UROBILINGN MALIA TIMED Normal mg/dL (Normal) UA - PROTEIN Negative mg/dL (Normal) UA - PH 7.0 (Normal) UA - BLOOD Negative (Normal) UA - SPECIFIC GRAVITY 1.015 (Normal) UA - KETONES Negative mg/dL (Normal) UA - BILIRUBIN Large (Normal) UA - GLUCOSE Negative (Normal) :09 Urinalysis, Office (62158) UA - LEUKOCYTE ESTERASE Negative (Normal) UA [...] 0.5 ng/mL (Normal) Range: 0.0-4.0 :08 THERESA-D 253924 THERESA-DIRECT SeeNote (Normal) Comments: Result: Negative :08 ANTI-CCP 032157 4 {units} (Normal) Range: 0-19 Comments: Negative [...] (Normal) GLU 88 mg/dL (Normal) Range: 70-110 30-Wwy-81751:08 COMPLETE UA BACTERIA 0 SEEN {/hpf} (Normal) [...] mm/h (Normal) Range: 0-20 :08 HB CORE [id number] SeeNote (Normal) Comments: Result: NegativePerformed At: [facility] [address] [place], [place] [id number] At: [facility] [phone] :08 HBsAg 6510 HB SURF AG 6510 SeeNote (Normal) Comments: Result: Negative :08 HEBSAB 6395 < 0.1 (Normal) Range: 0.00-0.99 Comments: Status of Immunity Anti-HBs Level Inconsistent with Immunity 0.00 - 0.99Consistent with Immunity >0.99.An Index Value of 1.00 is equivalent to 10 mIU/mL.However the magnitude of the Index Value is notindicative of the total amount of antibody present. :08 HEP C AB 626687 0.1 (Normal) Range: 0.0-0.9 Comments: Negative: < 0.8Indeterminate 0.8 - 0.9Positive: > 0.9.In order to reduce the incidence of a false positiveresult, the CDC recommends that all s/co ratiosbetween 1.0 and 10.9 be confirmed with additionalRIBA or PCR testing. :08 RHEUMATOID FAC 12.7 {IU/mL} (Normal) :08 VIT D,25 24193 33.7 ng/mL (Normal) Range: 32.0-100.0 Comments: Recent studies consider the lower limit of 32.0 ng/mL to jennifer threshold for optimal health.Remigio GIBSON. J Nutr. 2004;135(2):317-22. :15 5-HIAA U24 4069 5-HIAA,U24 4.7 {mg/24_hr} (Normal) Range: 0.0-14.9 5-HIAA,UR 2.6 mg/L (Normal) :15 THERESA-D 143158 THERESA-DIRECT SeeNote (Normal) Comments: Result: Negative Performed At: [place] [id number] [place], [place] [id number] At: [facility] [address] [place] [phone] :15 BMP BUN 21 mg/dL (Abnormal) Range: [...] Range: 65-610 {ug/24_hr} Comments: [facility]. ORIGINAL REPORT ON FILE IN LAB [...] RHEUMATOID FAC 19.5 {IU/mL} (Abnormal) :15 SJOGREN [id number] Anti-SS-A < 0.2 {AI} (Normal) Range: 0.0-0.9 [...] Range: 0.358-3.74 :21 Rapid Strep Test, Office (10347) Rapid Strep Test, Office Negative (Normal) Comments: [...] Report See Note (Normal) Comments: Exam Number: [id number] MAMMOGRAM, BILATERAL DIAGNOSTIC DIGITAL AND CAD HISTORYPatient [...] these results has been sent to the [facility] ient. This interpretation was rendered by a radiologist certified under theMammography Quality Standards Act of 1992 (MQSA). The mammograms werealso examined with computer-aided detection software ([employer], [employer] Reported By: JUMANA VIDALES M.D. :32 SPINE, THORACIC (ROUTINE) Radiology Report See Note (Normal) Comments: Exam Number: [id number] MRI THORACIC SPINE. CLINICAL STATEMENTThoracic pain, paresthesia. [...] Report See Note (Normal) Comments: Exam Number: [id number] MRI CERVICAL SPINE CLINICAL STATEMENTNeck pain, paresthesia. [...] is found. Reported By: MARILUZ ULLOA M.D. 42-Nci-76856:11 LIVER ALB 3.9 g/dL (Normal) Range: 3.4-5.0 ALK P 80 U/L (Normal) Range: 50-136 ALT 43 U/L (Normal) Range: 30-65 AST 23 U/L (Normal) Range: 15-37 D BILI 0.07 mg/dL (Normal) Range: 0.00-0.30 T BILI 0.43 mg/dL (Normal) Range: 0.00-1.00 T PROT 7.1 g/dL (Normal) Range: 6.4-8.2 38-Lak-085381:10 LIVER ALB 3.9 g/dL (Normal) Range: 3.4-5.0 ALK P 80 U/L (Normal) Range: 50-136 ALT 42 U/L (Normal) Range: 30-65 AST 18 U/L (Normal) Range: 15-37 D BILI 0.14 mg/dL (Normal) Range: 0.00-0.30 T BILI 0.38 mg/dL (Normal) Range: 0.00-1.00 T PROT 7.5 g/dL (Normal) Range: 6.4-8.2 83-Txm-223678:51 Iron and TIBC Comments: PATIENT NOT FASTINGPERFORMED BY: [facility] [id number] [facility] [id number] Iron Bind.Cap.(TIBC) 333 ug/dL (Normal) Range: 250-450 Iron Saturation 18 % (Normal) Range: 15-55 Iron, Serum 61 ug/dL (Normal) Range: 40-155 UIBC 272 ug/dL (Normal) Range: 150-375 LDH 227 [iU]/L (Normal) Comments: PATIENT NOT FASTINGPERFORMED BY: [facility] [id number] [facility] [id number] :51 Range: 100-250 Reticulocyte Count 1.2 % (Normal) Comments: PATIENT NOT FASTINGPERFORMED BY: [address] [id number] :51 Range: 0.5-3.0 Vitamin B12 672 pg/mL (Normal) Comments: PATIENT NOT FASTINGPERFORMED BY: [address] [id number] :51 Range: 211-911 :51 FOLIC ACID SERUM (97896) Comments: PATIENT NOT FASTINGPERFORMED BY: [address] [id number] Folate (Folic Acid), Serum 20.1 ng/mL (Normal) Comments: Indeterminate: 3.4 - 5.4 Deficient: <3.4 :51 FERRITIN (46008) Comments: PATIENT NOT FASTINGPERFORMED BY: [place] [id number] [facility] [id number] Ferritin, Serum 53 ng/mL (Normal) Range: 22-322 [...] was performed using the TPSA method for the[employer] chemistry system.Values obtained with different assay methods cannot be usedinterchangably.When changing PSA assays in the course of monito ring apatient, additional sequential testing should be carriedout to confirm baseline values. :18 TSH 0.84 {uIU/mL} (Normal) Range: 0.34-4.82 :26 GALLBLADDER Radiology Report See Note (Normal) Comments: Exam Number: [id number] GALLBLADDER ULTRASOUND HISTORYChest pain. High resolution real [...] Report See Note (Normal) Comments: Exam Number: [id number] MYOCARDIAL PERFUSION SCAN 14.2 millicuries of Tc99m [...] ejection fraction. Reported By: DIANA GARCIA M.D. 92-Tcn-251424:09 BRAIN W/WO CONTRAST Radiology Report See Note (Normal) Comments: Exam Number: [id number] MR ANGIOGRAM OF BRAIN CLINICAL STATEMENTHeadache, cephalgia. Tingling sensation. TECHNIQUE Noncontrast 3-D pimk-zs-fbbwmz MRA. FINDINGSNo MRA evidence of aneurysm or atheros clerotic stenosis of the circleof [place] or intracranial vertebrobasilar artery system is seen. IMPRESSIONNormal MRA of the parasellar region. MRI OF BRAIN CLINICAL STATEMENT Cephalgia. Paresthesia. Stroke. TECHNIQUEAfter obtaining T1 weighted sagittal retail center receptionist scan, T1, proton density,T2 weighted, and FLAIR [...] the brain. Reported By: CHERRY REYES M.D. 79-Lob-215916:09 MRA HEAD WITHOUT CONTRAST Radiology Report See Note (Normal) Comments: Exam Number: [id number] MR ANGIOGRAM OF BRAIN CLINICAL STATEMENTHeadache, cephalgia. Tingling sensation. TECHNIQUE Noncontrast 3-D iwwu-sp-bswmgv MRA. FINDINGSNo MRA evidence of aneurysm or atheros clerotic stenosis of the circleof [place] or intracranial vertebrobasilar artery system is seen. IMPRESSIONNormal MRA of the parasellar region. MRI OF BRAIN CLINICAL STATEMENT Cephalgia. Paresthesia. Stroke. TECHNIQUEAfter obtaining T1 weighted sagittal retail center receptionist scan, T1, proton density,T2 weighted, and FLAIR [...] 500 mg/dL VLDL 9 mg/dL (Normal) Range: 5-40 :22 C-REACTIVE PROT 4.88 mg/L (Normal) Range: [...] mg/dL VLDL 14 mg/dL (Normal) Range: 5-40 :50 C-REACTIVE PROT 3.65 mg/L (Normal) Range: [...] Plan of Care Name Dates Details Instructions Nonsmoker : Eprescribed prescriptions (G8553) Indication: Nonsmoker [...] pain, unspecified chronicity 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 Risk Management Internship Letter Indication: Rheumatoid arthritis Hypertension : Diet, [...] Indication: Rheumatoid arthritis 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 Risk Management Internship Letter Indication: Rheumatoid arthritis Abnormal glucose tolerance [...] Indication: Vitamin D deficiency Asthma : Reviewed Risk Management Internship Letter- just had spiromety done Indication: Asthma [...] tolerance test (GTT)) 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 Risk Management Internship Letter Indication: Rheumatoid arthritis Hypertension : Reviewed [...] Indication: Rheumatoid arthritis 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 Risk Management Internship Letter- dr De Indication: Rheumatoid arthritis Itching [...] Other anxiety states Planned Observations HGB A1C (87574)Indication: Abnormal glucose tolerance test (Renamed from Abnormal glucose tolerance test (GTT)) On: 28-Feb-2018 Request Comments: standing order for q4mo for one yr HGB A1C (92258)Indication: Abnormal glucose tolerance test (Renamed from Abnormal glucose tolerance test (GTT)) On: 29-Nov-2017 Request CALCIFIDIOL (43442) VIT D 25Indication: Vitamin D deficiency On: 23-Kby-54041:51 Request TSH (09238)Indication: Abnormal glucose tolerance test (Renamed from Abnormal glucose tolerance test (GTT)) On: :51 Request URINALYSIS, W/ MICRO (02241)Indication: Abnormal glucose tolerance test (Renamed from Abnormal glucose tolerance test (GTT)) On: 84-Afa-42608:51 Request MICROALBUMIN: CREATININE RATIO (80398) AND (61158)Indication: Abnormal glucose tolerance test (Renamed from Abnormal glucose tolerance test (GTT)) On: :51 Request METABOLIC PANEL, COMPREHENSIVE (41236)Indication: Abnormal glucose tolerance test (Renamed from Abnormal glucose tolerance test (GTT)) On: :51 Request ANETA ESPINOZA, BY NMR (82654)Indication: Abnormal glucose tolerance test (Renamed from Abnormal glucose tolerance test (GTT)) On: :51 Request CBC W/AUTO DIFF WBC (49852)Indication: Abnormal glucose tolerance test (Renamed from Abnormal glucose tolerance test (GTT)) On: :51 Request HGB A1C (67835)Indication: Abnormal glucose tolerance test (Renamed from Abnormal glucose tolerance test (GTT)) On: 31-Oct-2017 Request Comments: standing order for q4mo for one yr HGB A1C (99705)Indication: Abnormal glucose tolerance test (Renamed from Abnormal glucose tolerance test (GTT)) On: 01-Aug-2017 Request HGB A1C (07557)Indication: Abnormal glucose tolerance test (Renamed from Abnormal glucose tolerance test (GTT)) On: 03-Jul-20178:49 Request Comments: standing order for q4mo for one yr HGB A1C (47161)Indication: Abnormal glucose tolerance test (Renamed from Abnormal glucose tolerance test (GTT)) On: 8-Tfo-987193:10 Request CALCIFIDIOL (61648) VIT D 25Indication: Vitamin D deficiency On: :29 Request TSH (86461)Indication: Abnormal glucose tolerance test (Renamed from Abnormal glucose tolerance test (GTT)) On: 27-Feb-20178:28 Request URINALYSIS, W/ MICRO (83421)Indication: Abnormal glucose tolerance test (Renamed from Abnormal glucose tolerance test (GTT)) On: :28 Request MICROALBUMIN: CREATININE RATIO (82006) AND (17000)Indication: Abnormal glucose tolerance test (Renamed from Abnormal glucose tolerance test (GTT)) On: : Request METABOLIC PANEL, COMPREHENSIVE (25867)Indication: Abnormal glucose tolerance test (Renamed from Abnormal glucose tolerance test (GTT)) On: : Request LIPID PANEL (62423)Indication: Abnormal glucose tolerance test (Renamed from Abnormal glucose tolerance test (GTT)) On: : Request CBC W/AUTO DIFF WBC (07145)Indication: Abnormal glucose tolerance test (Renamed from Abnormal glucose tolerance test (GTT)) On: Request HGB A1C (50497)Indication: Abnormal glucose tolerance test (Renamed from Abnormal glucose tolerance test (GTT)) On: 92-Kuz-880631:04 Request HGB A1C (57578)Indication: Abnormal glucose tolerance test (Renamed from Abnormal glucose tolerance test (GTT)) On: 86-Irz-270161:35 Request HGB A1C (70553)Indication: Abnormal glucose tolerance test (Renamed from Abnormal glucose tolerance test (GTT)) On: 1-Mal-754983:45 Request CALCIFIDIOL (16793) VIT D 25Indication: Vitamin D deficiency On: 7-Bvn-249785:51 Request HGB A1C (41894)Indication: Abnormal glucose tolerance test (Renamed from Abnormal glucose tolerance test (GTT)) On: :50 Request TSH (81702)Indication: Abnormal glucose tolerance test (Renamed from Abnormal glucose tolerance test (GTT)) On: :50 Request URINALYSIS, W/ MICRO (06663)Indication: Abnormal glucose tolerance test (Renamed from Abnormal glucose tolerance test (GTT)) On: :50 Request MICROALBUMIN: CREATININE RATIO (82496) AND (71424)Indication: Abnormal glucose tolerance test (Renamed from Abnormal glucose tolerance test (GTT)) On: :50 Request METABOLIC PANEL, COMPREHENSIVE (40022)Indication: Abnormal glucose tolerance test (Renamed from Abnormal glucose tolerance test (GTT)) On: :50 Request LIPID PANEL (60262)Indication: Abnormal glucose tolerance test (Renamed from Abnormal glucose tolerance test (GTT)) On: :50 Request CBC W/AUTO DIFF WBC (44077)Indication: Abnormal glucose tolerance test (Renamed from Abnormal glucose tolerance test (GTT)) On: :50 Request HGB A1C (85259)Indication: Abnormal glucose tolerance test (Renamed from Abnormal glucose tolerance test (GTT)) On: 04-Hlo-969696:11 Request HGB A1C (75217)Indication: Abnormal glucose tolerance test (Renamed from Abnormal glucose tolerance test (GTT)) On: :32 Request Lipid Panel (55368)Indication: Abnormal glucose tolerance test (Renamed from Abnormal glucose tolerance test (GTT)) On: 28-Opi-297557:55 Request TSH (60565)Indication: Neck pain On: :54 Request CBC, Platelets & Auto Diff (65203)Indication: Hypertension On: :54 Request Metabolic Panel, Comprehensive (77395)Indication: Hypertension On: :54 Request CALCIFEDIOL (96774)Indication: Vitamin D deficiency On: :53 Request HGB A1C (55466)Indication: Hyperglycemia On: :49 Request TSH (23867)Indication: Other anxiety states On: :45 Request FECAL OCCULT- Tubes sent home (04987)Indication: Encounter for screening for malignant neoplasm of colon (Renamed from Special screening for malignant neoplasms, colon) On: :43 Request CALCIFIDIOL (85878) VIT D 25Indication: Vitamin D deficiency On: :43 Request URINALYSIS, W/ MICRO (50861)Indication: Hypertension On: :32 Request MICROALBUMIN: CREATININE RATIO (09392) AND (03725)Indication: Hypertension On: :32 Request LIPID PANEL (60246)Indication: Hypertension On: :32 Request Urinalysis, Office (67928)Indication: Abnormal urine On: :12 Request URINE YUE CULTURE (MALIA COL COUNT) (34450)Indication: Abnormal urine On: :12 Request PSA (PROSTATE SPECIFIC ANTIGEN) (V76.44)Indication: Screening for prostate cancer On: :14 Request URINALYSIS, W/ MICRO (96160)Indication: Hypertension On: :14 Request CBC W/AUTO DIFF WBC (49232)Indication: Hypertension On: :14 Request METABOLIC PANEL, COMPREHENSIVE (58915)Indication: Hypertension On: :14 Request URINE YUE CULTURE-IDENTIFICATN (52332)Indication: Abnormal urine On: 67-Ypq-720894:38 Request PSA (PROSTATE SPECIFIC ANTIGEN) (V76.44)Indication: Screening for prostate cancer On: :03 Request URINALYSIS, W/ MICRO (56909)Indication: Hypertension On: :02 Request CBC WITH MANUAL DIFF (10062)Indication: Hypertension On: : Request METABOLIC PANEL, COMPREHENSIVE (37276)Indication: Hypertension On: 45-Fgz-410694:02 Request TSH (72524)Indication: SYMPTOMS INVOLVING SKIN AND OTHER INTEGUMENTARY TISSUE, FLUSHING On: 87-Bpe-626841:25 Request CBC WITH MANUAL DIFF (48947)Indication: SYMPTOMS INVOLVING SKIN AND OTHER INTEGUMENTARY TISSUE, FLUSHING On: 98-Ayx-029189:25 Request CBC WITH MANUAL DIFF (75288)Indication: SYMPTOMS INVOLVING SKIN AND OTHER INTEGUMENTARY TISSUE, FLUSHING On: 63-Cce-896362:35 Request TSH (15956)Indication: SYMPTOMS INVOLVING SKIN AND OTHER INTEGUMENTARY TISSUE, FLUSHING On: 49-Zmk-646954:35 Request SEROTONIN (81968)Indication: SYMPTOMS INVOLVING SKIN AND OTHER INTEGUMENTARY TISSUE, FLUSHING On: 40-Exh-022434:34 Request METANEPHRINES - URINE (75894)Indication: SYMPTOMS INVOLVING SKIN AND OTHER INTEGUMENTARY TISSUE, FLUSHING On: :34 Request CATECHOLAMINES TOTAL, URINE (87476)Indication: SYMPTOMS INVOLVING SKIN AND OTHER INTEGUMENTARY TISSUE, FLUSHING On: 69-Rmg-422753:34 Request URINE VMA (01114)Indication: SYMPTOMS INVOLVING SKIN AND OTHER INTEGUMENTARY TISSUE, FLUSHING On: 75-Bya-828149:34 Request PSA (PROSTATE SPECIFIC ANTIGEN) (57364)Indication: Screening for prostate cancer On: 8-Jea-074211:57 Request Metabolic Panel, Comprehensive (61539)Indication: Hypertension On: 9-Yig-699014:56 Request CBC with manual diff (14668)Indication: Hypertension On: :56 Request URINALYSIS (89114)Indication: Hypertension On: 2-Slb-380623:56 Request Lipid Panel (20938)Indication: SCREENING FOR HYPERLIPIDEMIA On: 2-Erm-062079:56 Request Metabolic Panel, Comprehensive (31159)Indication: Hypertension On: 7-Bzr-779582:56 Request Comments: to be done in 1-2 weeks YUE CULTURE-OTHER (28856)Indication: Pharyngitis, acute On: 33-Brx-730225:19 Request Rapid Strep Test, Office (33522)Indication: Pharyngitis, acute On: 46-Eph-885077:38 Request LIPID PANEL (90685)Indication: Hypertension On: 1-Clh-839607:41 Request CBC WITH MANUAL DIFF (70077)Indication: Hypertension On: 4-Zfx-762287:41 Request METABOLIC PANEL, COMPREHENSIVE (51950)Indication: Hypertension On: 0-Pjg-551355:41 Request URINALYSIS, W/ MICRO (00198)Indication: Abnormal urine On: 9-Ojn-650636:41 Request Vitamin D Hydroxy (17134)Indication: Paresthesia On: :55 Request URINALYSIS, W/ MICRO (30533)Indication: Hypertension On: :52 Request METABOLIC PANEL, COMPREHENSIVE (23270)Indication: Hypertension On: 4-Qot-096350:52 Request LIPID PANEL (58036)Indication: Carotid stenosis On: 7-Hcj-286516:51 Request PSA (PROSTATE SPECIFIC ANTIGEN) (V76.44)Indication: Screening for prostate cancer On: 9-Tjw-837678:51 Request CBC WITH MANUAL DIFF (93670)Indication: Iron deficiency anemia, unspecified On: 8-Avs-383467:51 Request CBC WITH MANUAL DIFF (22006)Indication: Iron deficiency anemia, unspecified On: 08-Xhf-389073:11 Request IRON BINDING CAPACITY (TIBC) (65875)Indication: Iron deficiency anemia, unspecified On: 54-Jqt-799832:11 Request FERRITIN (74443)Indication: Iron deficiency anemia, unspecified On: 53-Llf-796386:11 Request IRON (42253)Indication: Iron deficiency anemia, unspecified On: 94-Cgx-478795:11 Request CBC WITH MANUAL DIFF (92378)Indication: Iron deficiency anemia, unspecified On: :17 Request LIPID PANEL (06178)Indication: Hypertension On: :17 Request METABOLIC PANEL, COMPREHENSIVE (04861)Indication: Hypertension On: :17 Request IRON BINDING CAPACITY (TIBC) (59353)Indication: Iron deficiency anemia, unspecified On: :16 Request FERRITIN (28383)Indication: Iron deficiency anemia, unspecified On: :16 Request IRON (84407)Indication: Iron deficiency anemia, unspecified On: :16 Request Vitamin D Hydroxy (03622)Indication: Rheumatoid arthritis On: 19-Doe-903447:58 Request CBC WITH MANUAL DIFF (55252)Indication: Iron deficiency anemia, unspecified On: 57-Bhz-661761:58 Request FERRITIN (10332)Indication: Iron deficiency anemia, unspecified On: 73-Tql-811026:58 Request IRON BINDING CAPACITY (TIBC) (55269)Indication: Iron deficiency anemia, unspecified On: 77-Jah-295611:58 Request IRON (20482)Indication: Iron deficiency anemia, unspecified On: 18-Fuv-794200:58 Request PSA (PROSTATE SPECIFIC ANTIGEN) (V76.44)Indication: Screening for prostate cancer On: 20-Cor-379897:48 Request FOLIC ACID SERUM (56882)Indication: Anemia NEC On: :40 Request VITAMIN B-12 (CYANOCOBALAMIN) (98069)Indication: Anemia NEC On: :40 Request RETICULOCYTE COUNT MANUL (05596)Indication: Anemia NEC On: :40 Request LDH (LD) (LACTATE DEHYDROGENASE) (00074)Indication: Anemia NEC On: :40 Request IRON BINDING CAPACITY (TIBC) (09914)Indication: Anemia NEC On: :40 Request FERRITIN (48831)Indication: Anemia NEC On: :40 Request IRON (86811)Indication: Anemia NEC On: :40 Request CBC, PLATELETS & AUT DIFF (86292)Indication: Anemia NEC On: :40 Request Metabolic Panel, Comprehensive (88630)Indication: Abdominal pain, acute, right upper quadrant On: :44 Request CBC with manual diff (32272)Indication: Abdominal pain, acute, right upper quadrant On: 29-Sep-20098:43 Request HEPATIC FUNCTION PANEL (78120)Indication: Abdominal pain, acute, right upper quadrant On: :41 Request CBC WITH MANUAL DIFF (82623)Indication: Rheumatoid arthritis On: 21-Rbw-719708:46 Request METABOLIC PANEL, COMPREHENSIVE (18162)Indication: Hypertension On: 91-Lsp-106569:45 Request C-REACTIVE PROTEIN (96534)Indication: Raynaud's syndrome On: 94-Nak-933274:26 Request SED RATE ERYTHROCYTE (29767)Indication: Raynaud's syndrome On: 73-Orf-606885:26 Request RHEUMATOID FACTOR-QUANT (11590)Indication: Raynaud's syndrome On: 49-Sfq-502402:26 Request THERESA (ANTINUCLEAR ANTIBODY) (98762)Indication: Raynaud's syndrome On: 15-Hzu-688125:26 Request PSA (PROSTATE SPECIFIC ANTIGEN) (V76.44)Indication: Screening for prostate cancer On: 31-Gzm-882968:47 Request URINALYSIS, W/ MICRO (65278)Indication: Hypertension On: 68-Zcm-308308:47 Request LIPID PANEL (13960)Indication: Hypertension On: 48-Rdk-273846:46 Request TSH (64385)Indication: Rash On: 87-Mmc-616775:46 Request METABOLIC PANEL, COMPREHENSIVE (54932)Indication: Hypertension On: 10-Xqd-466668:46 Request CBC WITH MANUAL DIFF (56592)Indication: Hypertension On: 47-Eji-424882:46 Request Metabolic Panel, Basic (50142)Indication: Hypertension On: 4-Hvv-235569:11 Request HEPATIC FUNCTION PANEL (06072)Indication: onychomycosis On: :27 Request Comments: q month for 2 months VITAMIN B-12 (CYANOCOBALAMIN) (25192)Indication: Anemia, unspecified On: :24 Request RETICULOCYTE COUNT MANUL (11737)Indication: Anemia, unspecified On: :24 Request LDH (LD) (LACTATE DEHYDROGENASE) (09717)Indication: Anemia, unspecified On: 24 Request IRON BINDING CAPACITY (TIBC) (24217)Indication: Anemia, unspecified On: :24 Request IRON (06896)Indication: Anemia, unspecified On: :24 Request CBC WITH MANUAL DIFF (20167)Indication: Anemia, unspecified On: :24 Request HEPATIC FUNCTION PANEL (38656)Indication: onychomycosis On: 9-Dzb-025412:15 Request TSH (13644)Indication: Hypertension On: :15 Request LIPID PANEL (55636)Indication: Hypertension On: :15 Request METABOLIC PANEL, COMPREHENSIVE (78312)Indication: Hypertension On: :15 Request CBC WITH MANUAL DIFF (75907)Indication: Hypertension On: :14 Request PSA (PROSTATE SPECIFIC ANTIGEN) (V76.44)Indication: Screening for prostate cancer On: 29-Mzi-919496:12 Request PTT (Activated Partial Thromboplastin Time) (52376)Indication: Paresthesia On: :52 Request PT (Prothrobim Time) (71418)Indication: Paresthesia On: 05-Nln-009678:52 Request TSH (82667)Indication: Paresthesia On: 54-Ipc-406450:52 Request METABOLIC PANEL, COMPREHENSIVE (39665)Indication: Paresthesia On: :52 Request CBC WITH MANUAL DIFF (50927)Indication: Paresthesia On: 08-Mib-803665:52 Request VITAMIN B-12 (CYANOCOBALAMIN) ([id number])Indication: Paresthesia On: 61-Ifx-857629:52 Request C-REACTIVE PROTEIN ([id number])Indication: Hypertension On: 05-Rbi-010507:04 Request LIPID PANEL ([id number])Indication: Hypertension On: 51-Kvw-908999:04 Request URINALYSIS W/O MICRO ([id number])Indication: Hypertension On: 47-Cyf-262233:02 Request TSH ([id number])Indication: Hypertension On: 40-Jsx-058146:02 Request CBC WITH MANUAL DIFF ([id number])Indication: Hypertension On: 82-Jhy-588199:02 Request METABOLIC PANEL, COMPREHENSIVE ([id number])Indication: Hypertension On: 43-Uhf-461855:02 Request URINALYSIS W/O MICRO ([id number])Indication: Proteinuria On: :02 Request Stool Guiac, Office ([id number])Indication: Encounter for screening for malignant neoplasm of rectum On: 70-Yfd-903631:32 Request Planned Encounters Medical; 4 Month FU - On: 12-Mar-2018 8:00 [facility] Cari Coles DO, DO, Kathleen Planned Procedures Spirometry ([id number])By: Sanket VOGEL, On: 06-Nov-2017 Intent Cari Encinas DO Comments: normal and not taking inhalers -- treating inhalers instead ELECTROCARDIOGRAM, COMPLETE (ECG) On: 06-Nov-2017 Intent ([id number])By: Cari Coles DO Comments: nsr no acute chg -normal axis Cari Coles DO Radiology - Knee - RightBy: Sanket On: 25-Sep-2017 Cari Valentino DO, DO, Kathleen X-RAY OF FOOT, THREE VIEWS On: 25-Sep-2017 Intent ([id number])By: Cari Coles DO Comments: right Cari Coles DO ELECTROCARDIOGRAM, COMPLETE (ECG) On: 06-Aug-2016 Intent ([id number])By: Cari Coles DO Comments: nsr no acute chg Cari Coles DO Solu -Medrol Injection, 125 mg On: 20-Apr-2016 Intent ([id number])By: Cari Coles DO Comments: Lot:[id number]:08/13Dose:125mgRoute:imSite:l hipGiven By:FRANKLIN signed Cari Coles DO US DOPPLER CAROTID BILATERAL On: 02-Apr-2016 Intent ([id number])By: Cari Coles DO, DO, Kathleen Radiology - [...] Intent ([id number])By: Erika Uriarte CNP Comments: lot [id number] 3.09949 mgright 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, 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 Aerosol Treatment ([id number])By: Laura On: 22-Feb-2014 Intent Erika CORONA Radiology - Shoulder - LeftBy: Fast On: 18-Jan-2014 Intent DO Kathie A Comments: and ac joint COMP EYE EXAMINATION, ESTAB PATIENT On: 19-Oct-2013 Intent ([id number])By: Erika Uriarte CNP Nerve ConductionBy: Fast DO, [...] A ELECTROCARDIOGRAM, COMPLETE (ECG) On: 24-Apr-2013 Intent ([id number])By: Fast DO, Kathie A Comments: ekg showed normal sinus rhythym, normal axis, no acute st/t wave changes - early repolar Radiology - Cervical SpineBy: Fast On: 07-Jan-2013 Intent DO, Kathie A Eprescribed prescriptions ([id number])By: On: 07-Jan-2013 Intent Karyn Hunter PHYSICAL THERAPY EVALUATION On: 23-Sep-2012 Intent ([id number])By: Erika Uriarte CNP Radiology - Knee - LeftBy: Laura On: 23-Sep-2012 Intent Erika CORONA Comments: call with wet read to CIm Eprescribed prescriptions ([id number])By: On: 23-Sep-2012 Intent Laura Erika CORONA SPECIMEN HNDLNG/TRNSPRT, OFFC > LAB On: 14-Jul-2012 Intent ([id number])By: Naye Crain LPN Eprescribed prescriptions ([id number])By: On: 03-Apr-2012 Intent Fast DO, Kathie A Radiology - Lumbar SpineBy: Fast DO, On: 02-Apr-2012 Intent Kathie A Eprescribed prescriptions ([id number])By: On: 03-Mar-2012 Intent Karyn Hunter SPECIMEN HNDLNG/TRNSPRT, OFFC > LAB On: 13-Feb-2012 Intent ([id number])By: Naye Crain LPN Cartoid DopplerBy: Fast DO, Kathie A On: 31-Oct-2011 Intent Comments: nov Aerosol Treatment ([id number])By: Laura On: 04-May-2011 Intent Erika CORONA SPECIMEN HNDLNG/TRNSPRT, OFFC > LAB On: 04-May-2011 Intent ([id number])By: Naye Crain LPN Eprescribed prescriptions ([id number])By: On: 29-Jan-2011 Intent Fast DO, Kathie A FLU VAC, SPLIT, >3 YEARS, INTRAMUSC On: 29-Jan-2011 Intent ([id number])By: Karyn Hunter Comments: refuses TDAP VACCINE >7 IM ([id number])By: Al On: 24-Oct-2010 Intent Rocío Comments: Lot:[id number]:11/15/12Amt:prefilledRoute:IMSite:right deltGiven By: STACIA Kimbrough Cartoid DopplerBy: Fast DO, Kathie A On: 24-Oct-2010 Intent EKG ([id number])By: Karyn Hunter On: 24-Oct-2010 Intent Comments: ekg showed normal sinus rhythym, normal axis, no acute st/t wave changes ivcd- early re[polar no change Ultrasound - Abdomen CompleteBy: On: 29-Sep-2009 Intent CiesErika canales CNP Comments: today and call wet nettie Naik Laura Aaqpzlsey-Esv-Ffzrt ([id number])By: Laura On: 29-Sep-2009 Intent Erika CORONA Comments: today Radiology - ChestBy: Erika Uriarte CNP On: 29-Sep-2009 Intent E Comments: AP and lateral today ELECTROCARDIOGRAM, COMPLETE (ECG) On: 30-Nov-2008 Intent ([id number])By: Erika Uriatre CNP Bio Z ([id number])By: Erika Uriarte CNP On: 30-Nov-2008 Intent Nerve [...] DO, Kathie A On: 13-Jan-2007 Intent EKG ([id number])By: Fast DO, Kathie A On: 13-Jan-2007 Intent [...] test (GTT)) : DISCONTINUED - HGB A1C (12020) Indication: Abnormal glucose tolerance test (Renamed from [...] Hypertension : Patient Instructions Indication: Hypertension Encounters Review On: 12-Feb-2018 8:05 Encounter Reason: Rash - Symptoms include pruritus and skin redness. Onset was 2 month(s) ago. Note for Rash: starts in the morning and subsides at bed time.Has itchiness around eyes, then whole body especially itchy a nd pins and needles has history of allergy, in past saw medical records manager was on allergy shots inpast. Also in past had allergy to vitamin., [ADDITIONAL REASON] ear pressure - Bilateral ear pressure on tragus , [ADDITIONAL REASON] Joint Pain - Note for Joint pain: Joint pain, in elbows Encounter Diagnosis: Nonsmoker, BMI 40.0-44.9, adult, Vitamin D deficiency, Rash (782.1) [facility] Office Visit On: 06-Nov-2017 [...] and doing well- trying to stayon the [place]- he has ridden some bike not like [...] not sure- an dno ches tpain--had workup 2009 24 hour urine and look for carcinoid, [...] he would like t tryi ncrease in cymbalta for pain- no gerd- and breathing has [...] is better with lyrica and etodolac from [facility] and thought he had rheumatoid- - [...] again- so is off now- no more raysamms sx Encounter Diagnosis: Rheumatoid arthritis (714.0), Diaphragmatic [...] mobic- he is looking at changing cpap jaylenuase has plastic and medical records manager think allergic to that-- color changes in [...] he gets redness- he will call his medical records manager regarding this- he is following with Cristhianilia-- the leg and arm sx are coming [...] note dictated [facility] Payers Medical [facility] Sydnee canales guarantor
--- OUTSIDE RECORDS SUMMARY | 2018-05-20 22:01 | XMS RPT_ITS ---
:1960 Author Organization [place] Support Name Relationship Address Phone [facility] Unavailable [address] + [place] [address] CRISTHIAN, JANIA Unavailable [address] + [place] [address] [facility] Unavailable [address] + [place] [address] CRISTHIAN, JANIA Unavailable [address] + [place] [address] [facility] Unavailable [address] + [place] [address] CRISTHIAN, JANIA Unavailable [address] + [place] [address] [facility] Unavailable [address] + [place] [address] CRISTHIAN, JANIA Unavailable [address] + [place] [address] [facility] Unavailable [address] + [place] [address] CRISTHIAN, JANIA Unavailable [address] + [place] [address] [facility] Unavailable [address] + [place] [address] CRISTHIAN, JANIA Unavailable [address] + [place] [address] [facility] Unavailable [address] + [place] [address] CRISTHIAN, JANIA Unavailable [address] + [place] [address] [facility] Unavailable [address] + [place] [address] CRISTHIAN, JANIA Unavailable [address] + [place] [address] [facility] Unavailable [address] + [place] [address] CRISTHIAN, JANIA Unavailable [address] + [place] [address] [facility] Unavailable [address] + [place] [address] CRISTHIAN, JANIA Unavailable [address] [phone] [place] [address] [facility] Unavailable [address] + [place] [address] CRISTHIAN, JANIA Unavailable [address] [phone] [place] [address] [facility] Unavailable [address] + [place] [address] CRISTHIAN, JANIA Unavailable [address] [phone] [place] [address] [facility] Unavailable [address] + [place] [address] CRISTHIAN, JANIA Unavailable [address] [phone] [place] [address] Care Team Providers Name Role Phone Lindsey DOCari Attending Unavailable Fast DO, Kathie A Referring Unavailable Lindsey DO, Cari Consulting Unavailable Lindsey Cari Attending Unavailable Lindsey, Cari Referring Unavailable Lindsey, Cari Primary Care Unavailable Lindsey Cari Attending Unavailable Ilndsey, Cari Referring Unavailable Lindsey, Cari Primary Care Unavailable Antonio Motley Attending Unavailable Lindsey, Cari Referring Unavailable Lindsey, Cari Primary Care Unavailable Sabi España Attending Unavailable Sabi España Referring Unavailable Lindsey, Cari Primary Care Unavailable Ruchi Valenzuela Attending Unavailable Lindsey, Cari Primary Care Unavailable Markel Dudley Attending Unavailable Lindsey, Cari Primary Care Unavailable Markel Dudley Referring Unavailable Lindsey, Cari Attending Unavailable Lindsey, Cari Primary Care Unavailable Lindsey, Cari Referring Unavailable Vellanki, Sabi Consulting Unavailable Eber Pena Attending Unavailable Lindsey, Cari Referring Unavailable Lindsey, Cari Primary Care Unavailable Lindsey, Cari Attending Unavailable Lindsey, Cari Referring Unavailable Lindsey, Cari Primary Care Unavailable Lindsey, Cari Attending Unavailable Lindsey, Cari Referring Unavailable Lindsey, Cari Primary Care Unavailable Vellanki, Sabi Attending Unavailable Vellanki, Sabi Referring Unavailable Lindsey, Cari Primary Care Unavailable Lindsey, Cari Attending Unavailable Lindsey, Cari Referring Unavailable Lindsey, Cari Primary Care Unavailable Landy Payne Attending Unavailable Lindsey, Cari Referring Unavailable PROBLEMS PROBLEMS DATE TYPE CONDITION / CODE ATTENDING STATUS SOURCE 03/21/2018 Unknown L29.8 - Other Markel Dudley Active [facility] pruritus / Community L29.8(ICD-10) Hospital Repository 03/18/2018 Unknown D72.1 - Lindsey, Active [facility] Eosinophilia / [facility] D72.1(ICD-10) Hospital Repository 03/08/2018 Unknown R73.02 - Impaired Lindsey, Active [facility] glucose tolerance [facility] (oral) / Hospital R73.02(ICD-10) Repository 10/11/2017 Unknown 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 / Hospital Z79.899(ICD-10) Repository 10/11/2017 Unknown M75.40 - Sabi España Active [facility] Impingement Community syndrome of Hospital unspecified Repository shoulder / M75.40(ICD-10) 10/11/2017 Unknown K21.9 - Sabi España Active [facility] Gastro-esophageal [facility] reflux disease Hospital without esophagitis Repository / K21.9(ICD-10) 10/11/2017 Unknown M50.30 - Other Sabi España Active [facility] cervical disc [facility] degeneration, Hospital unspecified Repository cervical region / M50.30(ICD-10) 10/11/2017 Unknown G47.33 - Sabi España Active [facility] Obstructive sleep Community apnea (adult) Hospital (pediatric) / Repository G47.33(ICD-10) 10/11/2017 Unknown I10 - Essential Sabi España Active [facility] (primary) Community hypertension / Hospital I10(ICD-10) Repository 10/11/2017 Unknown J45.909 - Sabi España Active [facility] Unspecified asthma, Community uncomplicated / Hospital J45.909(ICD-10) Repository 10/11/2017 Unknown M06.00 - Rheumatoid Sabi España Active [facility] arthritis without Community rheumatoid factor, Hospital unspecified site / Repository M06.00(ICD-10) 09/25/2017 Unknown M25.561 - Pain in Lindsey, Active [facility] right knee / [facility] Community M25.561(ICD-10) Hospital Repository 09/25/2017 Unknown M79.671 - Pain in Lindsey, Active [facility] right foot / [facility] Community M79.671(ICD-10) Hospital Repository 04/22/2017 Unknown M06.09 - Rheumatoid Sabi España Active [facility] arthritis without Community rheumatoid factor, Hospital multiple sites / Repository M06.09(ICD-10) PROCEDURES PROCEDURES No Procedure Records FoundRESULTS RESULTS CHEST PA AND LATERAL Observed: 03/21/2018 Status: F Source: [place] 3:49 PM [facility] REPOSITORY [facility] Imaging Services [address] [place] [address] Chest PA and Lateral MR#: [id number] Acct: [id number] Name: WILLA MORROW Rep #: [id number] : 1960 M 57 From: Rob Casey MD PCP: Cari Portillo DO Status: REG CLI Study: Chest PA and Lateral Date of Exam: 03/21/18 Exam# [id number] Ordering Dr: Markel Dudley MD HISTORY: RASH ALL OVER BODY X 2-3 MONTHS. NO CHEST COMPLAINTS. EXAM:XR Chest 2 Views: COMPARISON: 05/26/2013 FINDINGS: With comparison to previous, no significant change. Shallow inspiration. Normal heart size. No vascular congestion, pleural effusion, or acute pulmonary infiltration. No pneumothorax. Dorsal kyphosis. RAD/Chest PA and Lateral IMPRESSION: No acute cardiopulmonary disease. No significant interval change. at 0421 Reported and signed by: Rob Casey MD Electronically Signed: Rob Casey, at 4:20 EST Tel , Service support , CC: Cari Dudley Physical Therapy Technician: Signed CBC W/DIFF, AUTOMATED Collected: 03/21/2018 Status: F Source: [place] 3:35 PM [facility] REPOSITORY TYPE CODE TESTS RESULT OUT OF RANGE REFERENCE UNITS LAB L100.1000 4.4-11.0 K/mm3 Normal WBC 7.6 LAB L100.1200 4.6-6.2 M/mm3 Normal RBC 4.60 LAB L100.1300 13.0-16.5 g/dl Normal HGB 13.5 LAB L100.1400 40-54 % Normal HCT 42.2 LAB L100.1500 80-94 fL Normal MCV 91.7 LAB L100.1600 27.0-32.0 pg Normal MCH 29.3 LAB L100.1700 32-36 g/gl Normal MCHC 32.0 LAB L100.1810 11.6-14.6 % High RDW CV 14.9 LAB L100.1820 35.1-43.9 fl High RDW SD 48.9 LAB L100.1900 150-450 K/mm3 Normal PLT 251 LAB L100.2000 6.2-12.0 fl Normal MPV 10.1 LAB L100.2100 47-70 % Normal NEUT% 61.8 LAB L100.2200 19-41 % Normal LY% 22.4 LAB L100.2300 0-10 % Normal MONO% 9.0 LAB L100.2400 0-5 % High EO% 6.2 LAB L100.2500 0-1 % Normal BASO% 0.3 LAB L100.2550 0.0-0.9 % Normal IM GRAN % 0.300 Result Comment: IG% - Immature Granulocytes (promyelocytes, myelocytes and metamyelocytes) > 1% indicates that a LEFT SHIFT is Present. LAB L100.2620 2.0-7.7 X10 3/uL Normal Absolute Neut 4.7 LAB L100.2720 0.83-4.51 X10 3/ul Normal Absolute Lymph 1.71 Performed By: #### L100.0100 #### [facility] [address] [place], [place], [address] BASIC METABOLIC Collected: 03/21/2018 Status: F Source: [place] PROFILE (BMP) 3:35 PM [facility] REPOSITORY TYPE CODE TESTS RESULT OUT OF RANGE REFERENCE UNITS LAB L501.0100 74-106 mg/dL High GLU 111 Result Comment: Fasting Glucose result from 100 to 125 mg/dL suggests IMPAIRED HOMEOSTASIS per A.D.A. criteria. Please note revised GLUCOSE reference range effective 2017. LAB L501.1000 7-18 mg/dL Normal BUN 18 LAB L501.1100 0.70-1.30 mg/dL Normal CREAT,SERUM 0.99 Result Comment: The validity of the calculated GFR AND GFRAA in patients over 70 years has not been determined. Clinical correlation is essential. LAB L501.1110 >60 mL/min Normal EST GFR 83 Result Comment: Non- GFR Calc LAB L501.1115 >60 mL/min Normal EST GFR - AA 100 Result Comment: GFR Calc LAB L501.1300 10-20 RATIO Normal BUN/CRE 18.3 LAB L501.2200 8.5-10.1 mg/dL CA Normal 8.6 LAB L501.5300 136-145 mmol/L NA Normal 140 LAB L501.5600 3.5-5.1 mmol/L K Normal 4.3 LAB L501.5900 98-107 mmol/L CL Normal 103 LAB L501.6100 21.0-32.0 mmol/L Normal CO2 28.0 LAB L501.6200 5-15 Normal GAP 9 Performed By: #### L500.2500, L500.3400, L506.0400 #### [facility] [address] [place], [address] LIVER PROFILE Collected: 03/21/2018 Status: F Source: [place] 3:35 PM [facility] REPOSITORY TYPE CODE TESTS RESULT OUT OF RANGE REFERENCE UNITS LAB L501.1500 6.4-8.2 g/dL Normal T PROT 7.4 LAB L501.1800 3.2-5.0 g/dL Normal ALB 3.8 LAB L501.1950 2.2-4.2 g/dL Normal GLOB 3.6 LAB L501.4100 15-37 U/L Normal AST 23 LAB L501.4305 45-117 U/L Normal ALK P 69 LAB L501.4405 16-61 U/L Normal ALT 34 LAB L501.4600 0.20-1.00 mg/dL Normal T BILI 0.30 LAB L501.4700 0.00-0.30 mg/dL Normal D BILI 0.12 Performed By: #### L500.2500, L500.3400, L506.0400 #### [facility] [address] [place], [address] T4 FREE DIRECT Collected: 03/21/2018 Status: F Source: [place] 3:35 PM [facility] REPOSITORY TYPE CODE TESTS RESULT OUT OF RANGE REFERENCE UNITS LAB L506.0400 0.76-1.46 ng/dL Normal T4 FREE 1.08 DIRECT Performed By: #### L500.2500, L500.3400, L506.0400 #### [facility] [address] [place], [address] HIV - WCH Collected: 03/21/2018 Status: F Source: [place] 3:35 PM [facility] REPOSITORY TYPE CODE TESTS RESULT OUT OF RANGE REFERENCE UNITS LAB L3890.6005 Nonreactive Normal HIV - H Non-Reactive Performed By: #### L3890.6005 #### [facility] [address] [place], [address] CBC W/DIFF, AUTOMATED Collected: 03/18/2018 Status: F Source: [place] 3:52 PM [facility] REPOSITORY TYPE CODE TESTS RESULT OUT OF RANGE REFERENCE UNITS LAB L100.1000 4.4-11.0 K/mm3 Normal WBC 7.9 LAB L100.1200 4.6-6.2 M/mm3 Normal RBC 4.65 LAB L100.1300 13.0-16.5 g/dl Normal HGB 13.6 LAB L100.1400 40-54 % Normal HCT 42.6 LAB L100.1500 80-94 fL Normal MCV 91.6 LAB L100.1600 27.0-32.0 pg Normal MCH 29.2 LAB L100.1700 32-36 g/gl Low MCHC 31.9 LAB L100.1810 11.6-14.6 % High RDW CV 15.0 LAB L100.1820 35.1-43.9 fl High RDW SD 49.3 LAB L100.1900 150-450 K/mm3 Normal PLT 247 LAB L100.2000 6.2-12.0 fl Normal MPV 9.8 LAB L100.2100 47-70 % Normal NEUT% 61.1 LAB L100.2200 19-41 % Normal LY% 21.6 LAB L100.2300 0-10 % Normal MONO% 9.2 LAB L100.2400 0-5 % High EO% 7.5 LAB L100.2500 0-1 % Normal BASO% 0.3 LAB L100.2550 0.0-0.9 % Normal IM GRAN % 0.300 Result Comment: IG% - Immature Granulocytes (promyelocytes, myelocytes and metamyelocytes) > 1% indicates that a LEFT SHIFT is Present. LAB L100.2620 2.0-7.7 X10 3/uL Normal Absolute Neut 4.8 LAB L100.2720 0.83-4.51 X10 3/ul Normal Absolute Lymph 1.70 Performed By: #### L100.0100 #### [facility] [address] [facility] [place], [address] PSA,TOTAL - ANNUAL Collected: 03/18/2018 Status: F Source: [place] SCREEN 3:52 PM [facility] REPOSITORY TYPE CODE TESTS RESULT OUT OF RANGE REFERENCE UNITS LAB L501.9910 0.00-4.00 ng/mL Normal PSA,TOT 0.62 SCREEN Result Comment: This test was performed using the TPSA assay method for the [employer] chemistry system. Values obtained with different assay methods cannot be used interchangably. When changing PSA assays in the course of monitoring a patient, additional sequential testing should be carried out to confirm baseline values. Performed By: #### L501.9910 #### [facility] [address] [place], [address] HEMOGLOBIN A1C Collected: 03/08/2018 Status: F Source: [place] 7:11 AM [facility] REPOSITORY TYPE CODE TESTS RESULT OUT OF RANGE REFERENCE UNITS LAB L501.9985 4.2-6.3 % Normal HGB A1C 6.2 Performed By: #### L501.9985 #### [facility] [address] [place], [address] URINALYSIS, COMPLETE Collected: 03/08/2018 Status: F Source: [place] 7:07 AM [facility] REPOSITORY Order Comment: How was Urine Obtained? CLEAN CATCH TYPE CODE TESTS RESULT OUT OF RANGE REFERENCE UNITS LAB L400.3000 Yellow COLOR Normal Yellow LAB L400.3050 Clear Normal CLARITY Clear LAB L400.3200 Normal mg/dl Normal GLUCOSE, UR Normal LAB L400.3300 Negative mg/dL Normal BILIRUBIN URINE Negative LAB L400.3400 Negative mg/dl Normal KETONE UR Negative LAB L400.3465 1.002-1.030 Normal SP.GR. DIPSTX 1.010 LAB L400.3550 5.0 - 8.0 pH UR Normal 7.0 LAB L400.3600 Negative mg/dl PROT Normal DIPSTX Negative LAB L400.3700 Normal mg/dl Normal UROBILI Normal LAB L400.3750 Negative Normal NITRITE UR Negative LAB L400.3780 Negative /ul Normal OCCULT BLOOD-UR Negative LAB L400.3800 Negative /ul LEUK Normal ESTERASE Negative LAB L400.4050 0-5 /hpf WBC 0 Normal SEEN LAB L400.4100 0-5 /hpf 0 Normal RBC-UA SEEN LAB L400.4150 0-5 /hpf SQUAM 0 Normal EPI SEEN LAB L400.4300 None Seen /hpf 0 Normal BACTERIA SEEN LAB L400.4350 <or=2+ /hpf 0 Normal MUCUS, URINE SEEN Performed By: #### L400.0001 #### [facility] [address] [place], [address] CBC W/DIFF, AUTOMATED Collected: 03/08/2018 Status: F Source: [place] 7:07 [facility] REPOSITORY TYPE CODE TESTS RESULT OUT OF RANGE REFERENCE UNITS LAB L100.1000 4.4-11.0 K/mm3 Normal WBC 5.4 LAB L100.1200 4.6-6.2 M/mm3 Low RBC 4.49 LAB L100.1300 13.0-16.5 g/dl Normal HGB 13.2 LAB L100.1400 40-54 % Normal HCT 41.7 LAB L100.1500 80-94 fL Normal MCV 92.9 LAB L100.1600 27.0-32.0 pg Normal MCH 29.4 LAB L100.1700 32-36 g/gl Low MCHC 31.7 LAB L100.1810 11.6-14.6 % High RDW CV 15.3 LAB L100.1820 35.1-43.9 fl High RDW SD 50.8 LAB L100.1900 150-450 K/mm3 Normal PLT 215 LAB L100.2000 6.2-12.0 fl Normal MPV 10.2 LAB L100.2100 47-70 % Normal NEUT% 53.7 LAB L100.2200 19-41 % Normal LY% 25.2 LAB L100.2300 0-10 % High MONO% 10.9 LAB L100.2400 0-5 % High EO% 9.4 LAB L100.2500 0-1 % Normal BASO% 0.6 LAB L100.2550 0.0-0.9 % Normal IM GRAN % 0.200 Result Comment: IG% - Immature Granulocytes (promyelocytes, myelocytes and metamyelocytes) > 1% indicates that a LEFT SHIFT is Present. LAB L100.2620 2.0-7.7 X10 3/uL Normal Absolute Neut 2.9 LAB L100.2720 0.83-4.51 X10 3/ul Normal Absolute Lymph 1.37 Performed By: #### L100.0100 #### [facility] [address] [facility] [place], [address] MICROALB:CREAT Collected: 03/08/2018 Status: F Source: [facility] 7:07 AM [facility] REPOSITORY TYPE CODE TESTS RESULT OUT OF RANGE REFERENCE UNITS LAB L501.1200 NO RANGE EST. mg/dL 99.90 Normal UR CREAT LAB L502.0500 NO RANGE EST. mg/L < 5.0 Normal MICROALBUMI N,UR LAB L502.0600 <30 mg/g CRE mg/g CRE Test Normal not performed MALB:CREAT Performed By: #### L502.0250 #### [facility] [address] [place], [place], [id number] COMPREHENSIVE METABOLIC Collected: 03/08/2018 Status: F Source: [place] 7:07 AM [facility] REPOSITORY TYPE CODE TESTS RESULT OUT OF RANGE REFERENCE UNITS LAB L501.0100 74-106 mg/dL Normal GLU 91 Result Comment: Please note revised GLUCOSE reference range effective 2017. LAB L501.1000 7-18 mg/dL Normal BUN 13 LAB L501.1100 0.70-1.30 mg/dL Normal CREAT,SERUM 0.84 Result Comment: The validity of the calculated GFR AND GFRAA in patients over 70 years has not been determined. Clinical correlation is essential. LAB L501.1110 >60 mL/min Normal EST GFR 99 Result Comment: Non- GFR Calc LAB L501.1115 >60 mL/min Normal EST GFR - AA 120 Result Comment: GFR Calc LAB L501.1300 10-20 RATIO Normal BUN/CRE 15.4 LAB L501.1500 6.4-8.2 g/dL T Normal PROT 6.8 LAB L501.1800 3.2-5.0 g/dL Normal ALB 3.6 LAB L501.1950 2.2-4.2 g/dL Normal GLOB 3.2 LAB L501.2000 0.9-2.4 RATIO Normal A/G 1.1 LAB L501.2200 8.5-10.1 mg/dL CA Normal 8.6 LAB L501.4100 15-37 U/L Normal AST 18 LAB L501.4305 45-117 U/L Normal ALK P 61 LAB L501.4405 16-61 U/L Normal ALT 31 LAB L501.4600 0.20-1.00 mg/dL T Normal BILI 0.50 LAB L501.5300 136-145 mmol/L NA Normal 142 LAB L501.5600 3.5-5.1 mmol/L K Normal 4.2 LAB L501.5900 98-107 mmol/L CL Normal 106 LAB L501.6100 21.0-32.0 mmol/L Normal CO2 29.0 LAB L501.6200 5-15 Normal GAP 7 Performed By: #### L500.4050, L501.9520 #### [facility] [address] [place], [address] THYROID STIM HORMONE Collected: 03/08/2018 Status: F Source: [place] (TSH) 7:07 AM [facility] REPOSITORY TYPE CODE TESTS RESULT OUT OF RANGE REFERENCE UNITS LAB L501.9520 0.358-3.74 uIU/mL Normal TSH 1.19 Performed By: #### L500.4050, L501.9520 #### [facility] [address] [facility] [place], [address] VITAMIN D,25 HYDROXY Collected: 03/08/2018 Status: F Source: [place] 7:07 AM [facility] REPOSITORY TYPE CODE TESTS RESULT OUT OF RANGE REFERENCE UNITS LAB L506.1000 29.95-100.01 ng/mL Normal Vitamin D 47.8 25-OH Result Comment: Vitamin D 25(OH) Status Range Deficiency <20 ng/mL (50nmol/L) Insuffciency 20 - 30 ng/mL (50 - 75 nmol/L) Sufficiency 30 - 100 ng/mL (75 - 250 nmol/L) Toxicity >100 ng/mL (>250 nmol/L) Performed By: #### L506.1000 #### [facility] [address] [facility] [place], [address] NMR LIPOPROFILE Collected: 03/08/2018 Status: F Source: [place] 7:07 AM [facility] REPOSITORY TYPE CODE TESTS RESULT OUT OF RANGE REFERENCE UNITS LAB L3500.0250 LIPIDS Normal . LAB L3500.0300 100-199 mg/dL CHOLESTEROL Normal TOT 166 LAB L3500.0350 0-99 mg/dL High LDL-C 100 Result Comment: Optimal < 100 Above optimal 100 - 129 Borderline 130 - 159 High 160 - 189 Very high > 189 LDL-C is inaccurate if patient is non-fasting. LAB L3500.0400 >39 mg/dL HDL-C Normal 52 LAB L3500.0450 0-149 mg/dL TRIGLYCERIDES Normal 71 LAB L3500.0560 <1000 nmol/L High LDL-P 1191 Result Comment: Low < 1000 Moderate 1000 - 1299 Borderline-High 1300 - 1599 High 1600 - 2000 Very High > 2000 LAB L3500.0575 Normal LD HD PARTICLES . LAB L3500.0580 >=30.5 umol/L Normal HDL-P TOTAL 35.5 LAB L3500.0585 <=527 nmol/L Normal SMALL LDL-P 266 LAB L3500.0590 >20.5 nm Normal LDL SIZE 21.4 Result Comment: INTERPRETATIVE INFORMATION PARTICLE CONCENTRATION AND SIZE <--Lower CVD Risk Higher CVD Risk--> LDL AND HDL PARTICLES Percentile in Reference Population HDL-P (total) High 75th 50th 25th Low >34.9 34.9 30.5 26.7 <26.7 Small LDL-P Low 25th 50th 75th High <117 117 527 839 >839 LDL Size <-Large (Pattern A)-> <-Small (Pattern B)-> 23.0 20.6 20.5 19.0 Small LDL-P and LDL Size are associated with CVD risk, but not after LDL-P is taken into account. These assays were developed and their performance characteristics determined by [employer]. These assays have not been cleared by the [place] Food and Drug Administration. The clinical utility of these laboratory values have not been fully established. LAB L3500.0595 Normal INS RES/DIAB RK . LAB L3500.0875 <=45 Normal LP-IR SCORE 29 Result Comment: INSULIN RESISTANCE MARKER <--Insulin Sensitive Insulin Resistant--> Percentile in Reference Population Insulin Resistance Score LP-IR Score Low 25th 50th 75th High <27 27 45 63 >63 LP-IR Score is inaccurate if patient is non-fasting. The LP-IR score is a laboratory developed index that has been associated with insulin resistance and diabetes risk and should be used as one component of a physician's clinical assessment. The LP-IR score listed above has not been cleared by the [place] Food and Drug Administration. Performed at: [facility] - [facility] [address] [id number] Refractory Tile Helper: Marleny Chapman MD, Phone: [phone] Performed By: #### L3500.0000 #### [facility] (refer to report for specific site) refer to report for address and phone number URGENT CARE VISIT Observed: 01/18/2018 Status: F Source: [place] REPORT 8:35 AM [facility] REPOSITORY [facility] [address] [place] [address] [address] [place] [address] OFFICE VISIT Date of Service: 01/18/18 MR#: [id number] Acct: [id number] Name: CRISTHIANWILLA Rep #: [id number] : 1960 Provider: STARR Payne Age/Sex: 57/M [...] 01/18/18] Folic Acid 1 mg PO BIDCM 04/20/16 [History Confirmed 01/18/18] Irbesartan [Avapro] 150 mg PO DAILY 04/20/16 [History Confirmed 01/18/18] Levocetirizine Dihydrochloride [Xyzal] 5 mg PO DAILY 04/20/16 [History Confirmed 01/18/18] Metformin HCl [Metformin HCl ER] 1,000 mg PO DAILY 04/20/16 [History Confirmed 01/18/18] Methotrexate 17.5 mg PO Q7D 04/20/16 [History Confirmed 01/18/18] Pantoprazole Sodium [Protonix] 40 mg PO DAILY 04/20/16 [History Confirmed 01/18/18] cholecalciferol (vitamin D3) 1,000 unit capsule 1,000 unit PO ONCE 03/29/17 [History Confirmed 01/18/18] etanercept 50 mg/mL (0.98 mL) subcutaneous syringe 50 mg SC Q7D 03/29/17 [History Confirmed 01/18/18] REPLACED BY [facility] Medical History Diabetes (Acute) Hay fever (Acute) Seizures (Acute) HTN (hypertension) (Chronic) Social History Smoking Status: Never smoker alcohol intake: current alcohol intake frequency: holidays/special occasions only Alcohol type: wine HPI HPI Chief Complaint: cough, low grade fever Details: ED CRISTHIAN, is a 57 NIDDM M who presents [...] at times. 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 ROS Const Constitutional: Positive for fever(s) (low grade 99.9), night sweats (x 2 nights) and excessive sweating (at nght x 2 nights); no body ache, chills, fatigue, change in appetite, weakness, frequent falls or headache(s) Eyes Eyes: No visual disturbances, light sensitivity, eye pain or change in vision ENT ENT: Positive for sore throat (minimal with intermittent laryngitis); no ear pain, ear discharge, hearing loss, dizziness/vertigo, nasal discharge, difficulty swallowing, neck pain or headache(s) Resp Respiratory: Positive for cough and chest congestion; no hemoptysis, shortness of breath or wheezing Cardio Cardiology: Positive for excessive sweating (at nght x 2 nights) and other (h/o HTN onmedication); no shortness of breath, irregular heart rhythm, lightheadedness, chest pain at rest, chest pain with exertion, generalized swelling, orthopnea or palpitations Gastro GI: No difficulty swallowing, abdominal pain, bloating, change in bowel habits, diarrhea, blood in stool, Black,tarry stools, nausea/dyspepsia or vomiting Genitourinary Male: No painful urination, urinary frequency, difficulty urinating or blood in urine Musc Musculoskeletal: No joint pain, back pain, numbness, tingling or neck pain Skin Skin: No lesions, itching (arms last 2 days) or rash Neuro Neurology: No visual disturbances, numbness, tingling, abnormal speech, confusion, unsteady gait/balance, dizziness, weakness, frequent falls, loss of vision or headache(s) Psych Psychiatric: No change in appetite, No confusion, No anxiety, No depression Endo Endocrine: Positive for excessive sweating (at [facility] x 2 nights); no fatigue, cold intolerance, flushing, heat intolerance or increased thirst/drinking Aller/Imm Allergy/Immunologic: No wheezing, itchy eyes (arms last 2 days), food intolerance, seasonal allergy symptoms or hives Du/Lymp Hematologic/Lymphatic: No easy bruising Exam Const General: cooperative, no acute distress Orientation: alert, [facility] x3 [facility]: normal to inspection, normocephalic Ears: hearing grossly normal bilaterally, external ears normal, TM normal on the right, TM normal on the left, no periauricular adenopathy, EAC's normal Nose: nasal mucous membranes and turbinates normal, no nasal discharge Face and sinus: normal facial exam, sinuses nontender Mouth: oral mucosae normal, oropharynx normal, tongue normal Teeth and gingiva: dentition normal, gingiva normal Throat: posterior oropharynx normal Eyes General: appearance normal, both eyes and all related structures Eyelids: eyelids normal Conjunctivae: conjunctivae normal Sclera: sclerae normal Pupils: PERRL EOM: EOM intact bilaterally Direct ophthalmoscopy: normal light reflex, no photophobia Neck Neck: normal visual inspection, no meningeal signs, supple, no lymphadenopathy Neck mass: No Thyroid: thyroid normal Carotids: no bruits Lymphatic: no lymphadenopathy noted Chest Chest palpation AND inspection: normal inspection of the chest Resp Effort AND Inspection: normal respiratory effort, able to speak in complete sentences, symmetric chest movement, no audible wheezes, no cough, not labored, no respiratory distress Auscultation: Bilateral: Clear to Auscultation Cardio Rate: regular rate Rhythm: regular rhythm Heart Sounds: S1 normal, S2 normal [facility] Musculoskeletal: No joint tenderness or joint redness Skin General: no rashes or lesions noted, other (no erythema at this time on arms noted) Neuro General: alert, oriented x3, moves all extremities Cognition: normal cognition Speech: speech normal Gait: normal gait Motor: muscle tone normal throughout Extrem General: normal to inspection Psych Appearance: grossly normal, well kempt Mental Status: mental status grossly normal Affect: normal affect Speech and Movement: speech and movement normal Attitude: cooperative Thought Process: normal Thought Content: normal Assessment AND Plan Problems 1. URI with cough and congestion J06.9 2. Bronchitis J40 Plan Jose Juanck called to Richard Benites DM F/u with PCP if symptoms persist Rec: ED if high fever, SOB, Symptoms become acute. Coding Level of Care Code Off vis,est,level 3 Diagnoses URI with cough and congestion J06.9 Bronchitis J40 01/18/18 0835 <Electronically signed by Landy CLEMENTS> Date Landy CLEMENTS Cosigner Signature: Date (if applicable) CC: PT D/C SUMMARY (1) Observed: 11/01/2017 Status: F Source: [place] 6:45 AM [facility] REPOSITORY [facility] Physical Therapy [address] [place] [address] Fax REHABILITATION SERVICES DISCHARGE SUMMARY MR#: [id number] Acct: [id number] Name: WILLA MORROW R Rep #: [id number] : 1960 57 From: Farrukh Mcleod DPT, OCS, CSCS Referring : Cari Portillo DO Status: REG RCR Insurance: [facility] SELF PAY INSURANCE HP - PT D/C Summary It has been my pleasure to treat ED R CRISTHIAN under orders from Cari Portillo, for the diagnosis of BPPV for a total of 1 visit(s). Discharge Date: 10/30/17 Please see the following information for a summary of their discharge status. - Overall Improvement % Improvement: 100 - Goals Goal 1:: Abolish dizzyness Goal Progress: Goal Met Goal 2:: Patient feel 100% back to normal. Goal Progress: Goal Met - Plan Plan: D/C - D/C Information Discharge Comments: Pt has called adn I spoke to him on the phone. He is 100% better since positional treatment and does not need to return. Not avoiding any activities. Will f/u with doctor next week. If there are questions or concerns regarding this patient's physical therapy, please feel free to call me at [phone]. Thank you for the referral of this patient. Sincerely, Farrukh Mcleod DPT, OC <Electronically signed by Farrukh Mcleod DPT, JULIO, CSCS> 11/01/17 0645 CC: Cari Portillo DO EBG Signed INITAL EVALUATION (1) Observed: 10/24/2017 Status: F Source: [place] - PT 9:32 AM [facility] REPOSITORY [facility] Physical Therapy [facility] [address] [place] [address]. [address] [place] [address] Fax REHABILITATION SERVICES INITIAL EVALUATION MR#: [id number] Acct: [id number] Name: WILLA MORROW Rep #: [id number] : 1960 57 From: Farrukh Mcleod DPT, JULIO, CSCS Referring Dr.: Cari Portillo DO Status: REG RCR Insurance: [facility] [employer] SEL[employer] INSURANCE Patient's Visit Information ED Cristian MORROW is a 57 year old M referred to Physical Therapy by Cari Portillo with a diagnosis of BPPV. Date of Evaluation: 10/23/17 Physical Therapist: Farrukh Mcleod DPT, OC - [...] down at night with L ear causes spinning. Rolling to L causes it also. Happening a couple times per day. In between these sessions, no problems, sometimes has SCHERER more pronounced than normal but balance is good and no other goofy feelings. Sleep is good. Gets dizzy at work [...] Abolish dizzyness Goal Time Frame: 2-4 Weeks Goal 2:: Patient feel 100% back to normal. Goal Time Frame: 2-4 Weeks - Rehabilitation Potential Physical Therapy Diagnosis: L posterior BPPV Rehabilitation Potential: Good - Anticipated Interventions Patient/Client Instruction: Educate patient on: Condition, Plan of Care For the Purpose of:: To increase tolerance to activity/condition/position Comment: positional treatments and ex as needed. For the Purpose of:: To increase tolerance to activity/condition/position, To improve ability of physical actions for home/community/work/leisure Thank you for the opportunity to evaluate your patient. For Medicare and Medicare HMO plans, please review the plan of care and approve it. It will need to be FAXED BACK to us at [phone] for Medicare purposes. Please let me know if there are questions or concerns regarding this plan of care. Physician Signature: Date: <Electronically signed by Farrukh Mcleod DPT, OCS, CSCS> 10/24/17 0932 CC: Cari Portillo DO EBG Signed For Medicare only, by signing this I certify the plan of care. Physicians Signature Date HEMOGLOBIN A1C Collected: 10/23/2017 Status: F Source: [place] 8:35 AM [facility] REPOSITORY TYPE CODE TESTS RESULT OUT OF RANGE REFERENCE UNITS LAB L501.9985 4.2-6.3 % Normal HGB A1C 5.7 Performed By: #### L501.9985 #### [facility] [place], [address] CBC W/DIFF, AUTOMATED Collected: 10/11/2017 Status: F Source: [place] 4:49 PM [facility] REPOSITORY TYPE CODE TESTS RESULT OUT OF RANGE REFERENCE UNITS LAB L100.1000 4.4-11.0 K/mm3 Normal WBC 7.7 LAB L100.1200 4.6-6.2 M/mm3 Low RBC 4.39 LAB L100.1300 13.0-16.5 g/dl Normal HGB 13.0 LAB L100.1400 40-54 % Normal HCT 40.2 LAB L100.1500 80-94 fL Normal MCV 91.6 LAB L100.1600 27.0-32.0 pg Normal MCH 29.6 LAB L100.1700 32-36 g/gl Normal MCHC 32.3 LAB L100.1810 11.6-14.6 % High RDW CV 15.5 LAB L100.1820 35.1-43.9 fl High RDW SD 50.1 LAB L100.1900 150-450 K/mm3 Normal PLT 218 LAB L100.2000 6.2-12.0 fl Normal MPV 9.3 LAB L100.2100 47-70 % High NEUT% 70.4 LAB L100.2200 19-41 % Normal LY% 19.0 LAB L100.2300 0-10 % Normal MONO% 8.8 LAB L100.2400 0-5 % Normal EO% 1.4 LAB L100.2500 0-1 % Normal BASO% 0.3 LAB L100.2550 0.0-0.9 % Normal IM GRAN % 0.100 Result Comment: IG% - Immature Granulocytes (promyelocytes, myelocytes and metamyelocytes) > 1% indicates that a LEFT SHIFT is Present. LAB L100.2620 2.0-7.7 X10 3/uL Normal Absolute Neut 5.4 LAB L100.2720 0.83-4.51 X10 3/ul Normal Absolute Lymph 1.45 Performed By: #### L100.0100 #### [facility] [address] [place], [address] COMPREHENSIVE METABOLIC Collected: 10/11/2017 Status: F Source: [place] 4:49 PM [facility] REPOSITORY TYPE CODE TESTS RESULT OUT OF RANGE REFERENCE UNITS LAB L501.0100 74-106 mg/dL High GLU 110 Result Comment: Fasting Glucose result from 100 to 125 mg/dL suggests IMPAIRED HOMEOSTASIS per A.D.A. criteria. Please note revised GLUCOSE reference range effective 2017. LAB L501.1000 7-18 mg/dL High BUN 19 LAB L501.1100 0.70-1.30 mg/dL Normal CREAT,SERUM 1.04 Result Comment: The validity of the calculated GFR AND GFRAA in patients over 70 years has not been determined. Clinical correlation is essential. LAB L501.1110 >60 mL/min Normal EST GFR 78 Result Comment: Non- GFR Calc LAB L501.1115 >60 mL/min Normal EST GFR - AA 94 Result Comment: GFR Calc LAB L501.1300 10-20 RATIO Normal BUN/CRE 18.3 LAB L501.1500 6.4-8.2 g/dL T Normal PROT 7.2 LAB L501.1800 3.2-5.0 g/dL Normal ALB 3.9 LAB L501.1950 2.2-4.2 g/dL Normal GLOB 3.3 LAB L501.2000 0.9-2.4 RATIO Normal A/G 1.2 LAB L501.2200 8.5-10.1 mg/dL CA Normal 8.7 LAB L501.4100 15-37 U/L Normal AST 27 LAB L501.4305 45-117 U/L Normal ALK P 62 LAB L501.4405 16-61 U/L Normal ALT 37 LAB L501.4600 0.20-1.00 mg/dL T Normal BILI 0.50 LAB L501.5300 136-145 mmol/L NA Normal 138 LAB L501.5600 3.5-5.1 mmol/L K Normal 4.2 LAB L501.5900 98-107 mmol/L CL Normal 104 LAB L501.6100 21.0-32.0 mmol/L Normal CO2 28.0 LAB L501.6200 5-15 Normal GAP 6 Performed By: #### L500.4050 #### [facility] [address] [place], [address] FOOT MIN 3 VIEWS Observed: 09/25/2017 Status: F Source: [place] 2:50 PM [facility] REPOSITORY [facility] Imaging Services [address] [place] [address] Foot min 3 Views MR#: [id number] Acct: [id number] Name: WILLA MORROW Rep #: [id number] : 1960 M 57 From: Davin Cárdenas MD PCP: Cari Portillo DO Status: REG CLI Study: Foot min 3 Views Date of Exam: 09/25/17 Exam# [id number] Ordering Dr: Cari Portillo DO STUDY: X-RAY - RIGHT FOOT CLINICAL: Male, 57 years old. Lateral foot trauma, pain. TECHNIQUE: 3 view(s) of the foot. COMPARISON: None. FINDINGS: Osteopenia. Mild DJD of the interphalangeal joints, mild to moderate of the 1st digit metatarsophalangeal joint, mild hallux valgus of the 1st digit. No fracture. Preserved arch. Unremarkable soft tissues. Prominent peripheral vascular calcifications. RAD/Foot min 3 Views IMPRESSION: No evidence of acute injury. Electronically Signed: Davin Cárdenas, at 18:04 EDT Tel , Service support , CC: Cari Portillo DO Physical Therapy Technician: Signed KNEE 4 OR MORE Observed: 09/25/2017 Status: F Source: [place] VIEWS 2:50 PM [facility] REPOSITORY [facility] Imaging Services [address] [place] [address] Knee 4 or More Views MR#: [id number] Acct: [id number] Name: WILLA MORROW Rep #: [id number] : 1960 M 57 From: Davin Cárdenas MD PCP: Cari Portillo DO Status: REG CLI Study: Knee 4 or More Views Date of Exam: 09/25/17 Exam# [id number] Ordering Dr: Cari Portillo DO STUDY: X-RAY - RIGHT KNEE REASON FOR EXAM: Male, 57 years old. Pain, no injury. TECHNIQUE: 4 view(s) of the knee. COMPARISON: None. FINDINGS: Osteopenia. No effusion. Periarticular soft tissues unremarkable. Mild joint margin osteophytic lipping of the patellofemoral articulation, in particular the lateral facets. No significant degenerative features of the medial or lateral compartment of the knee. RAD/Knee 4 or More Views IMPRESSION: Mild DJD of the patellofemoral joint. Electronically Signed: Davin Cárdenas, at 18:05 EDT Tel , Service support , CC: Cari Portillo DO Physical Therapy Technician: Signed CBC W/DIFF, AUTOMATED Collected: 06/29/2017 Status: F Source: [place] 8:37 AM [facility] REPOSITORY TYPE CODE TESTS RESULT OUT OF RANGE REFERENCE UNITS LAB L100.1000 4.4-11.0 K/mm3 Normal WBC 5.3 LAB L100.1200 4.6-6.2 M/mm3 Low RBC 4.25 LAB L100.1300 13.0-16.5 g/dl Low HGB 12.3 LAB L100.1400 40-54 % Low HCT 39.2 LAB L100.1500 80-94 fL Normal MCV 92.2 LAB L100.1600 27.0-32.0 pg Normal MCH 28.9 LAB L100.1700 32-36 g/gl Low MCHC 31.4 LAB L100.1810 11.6-14.6 % High RDW CV 16.0 LAB L100.1820 35.1-43.9 fl High RDW SD 53.5 LAB L100.1900 150-450 K/mm3 Normal PLT 226 LAB L100.2000 6.2-12.0 fl Normal MPV 9.1 LAB L100.2100 47-70 % Normal NEUT% 53.4 LAB L100.2200 19-41 % Normal LY% 32.4 LAB L100.2300 0-10 % Normal MONO% 9.9 LAB L100.2400 0-5 % Normal EO% 3.7 LAB L100.2500 0-1 % Normal BASO% 0.4 LAB L100.2550 0.0-0.9 % Normal IM GRAN % 0.200 Result Comment: IG% - Immature Granulocytes (promyelocytes, myelocytes and metamyelocytes) > 1% indicates that a LEFT SHIFT is Present. LAB L100.2620 2.0-7.7 X10 3/uL Normal Absolute Neut 2.9 LAB L100.2720 0.83-4.51 X10 3/ul Normal Absolute Lymph 1.73 Performed By: #### L100.0100 #### [facility] [address] [place], [place], [id number] URINALYSIS, COMPLETE Collected: 06/29/2017 Status: F Source: [place] 8:37 AM [facility] REPOSITORY Order Comment: How was Urine Obtained? CLEAN CATCH TYPE CODE TESTS RESULT OUT OF RANGE REFERENCE UNITS LAB L400.3000 Yellow COLOR Normal Yellow LAB L400.3050 Clear Normal CLARITY Clear LAB L400.3200 Normal mg/dl Normal GLUCOSE, UR Normal LAB L400.3300 Negative mg/dL High BILIRUBIN URINE 1 Result Comment: COLOR OF URINE MAY AFFECT DIPSTICK RESULTS. LAB L400.3400 Negative mg/dl High KETONE UR 5 LAB L400.3465 1.002-1.030 Normal SP.GR. DIPSTX 1.020 LAB L400.3550 5.0 - 8.0 pH Normal UR 6.0 LAB L400.3600 Negative mg/dl Normal PROT DIPSTX Negative LAB L400.3700 Normal mg/dl Normal UROBILI Normal LAB L400.3750 Negative Normal NITRITE UR Negative LAB L400.3780 Negative /ul Normal OCCULT Negative BLOOD-UR LAB L400.3800 Negative /ul Normal LEUK ESTERASE Negative LAB L400.4050 0-5 /hpf Normal WBC 0 SEEN LAB L400.4100 0-5 /hpf Normal RBC-UA 0 SEEN LAB L400.4150 0-5 /hpf Normal SQUAM EPI 0 SEEN LAB L400.4300 None Seen /hpf Normal BACTERIA 0 SEEN LAB L400.4350 <or=2+ /hpf Normal MUCUS, URINE 0 SEEN Performed By: #### L400.0001 #### [facility] [address] [place], [address] MICROALB:CREAT Collected: 06/29/2017 Status: F [facility] REPOSITORY TYPE CODE TESTS RESULT OUT OF RANGE REFERENCE UNITS LAB L501.1200 NO RANGE EST. mg/dL Normal UR CREAT 264.00 LAB L502.0500 NO RANGE EST. mg/L Normal 10.9 MICROALBUMIN ,UR LAB L502.0600 <30 mg/g CRE mg/g CRE Normal 4.1 MALB:CREAT Performed By: #### L502.0250 #### [facility] [address] [facility] [place], [place], [address] HEMOGLOBIN A1C Collected: 06/29/2017 Status: F Source: [place] 8:37 AM [facility] REPOSITORY TYPE CODE TESTS RESULT OUT OF RANGE REFERENCE UNITS LAB L501.9985 4.2-6.3 % Normal HGB A1C 6.0 Performed By: #### L501.9985 #### [facility] [address] [facility] [place], [address] COMPREHENSIVE METABOLIC Collected: 06/29/2017 Status: F Source: [place] PROFIL 8:37 AM [facility] REPOSITORY Order Comment: TOM ONLY GETS CBCD,CMP TYPE CODE TESTS RESULT OUT OF RANGE REFERENCE UNITS LAB L501.0100 74-106 mg/dL Normal GLU 95 Result Comment: Please note revised GLUCOSE reference range effective 2017. LAB L501.1000 7-18 mg/dL High BUN 19 LAB L501.1100 0.70-1.30 mg/dL Normal CREAT,SERUM 0.84 Result Comment: The validity of the calculated GFR AND GFRAA in patients over 70 years has not been determined. Clinical correlation is essential. LAB L501.1110 >60 mL/min Normal EST GFR 100 Result Comment: Non- GFR Calc LAB L501.1115 >60 mL/min Normal EST GFR - AA 121 Result Comment: GFR Calc LAB L501.1300 10-20 RATIO High BUN/CRE 22.7 LAB L501.1500 6.4-8.2 g/dL T Normal PROT 6.7 LAB L501.1800 3.2-5.0 g/dL Normal ALB 3.5 LAB L501.1950 2.2-4.2 g/dL Normal GLOB 3.2 LAB L501.2000 0.9-2.4 RATIO Normal A/G 1.1 LAB L501.2200 8.5-10.1 mg/dL Low CA 8.4 LAB L501.4100 15-37 U/L Normal AST 22 LAB L501.4305 45-117 U/L Normal ALK P 55 LAB L501.4405 16-61 U/L Normal ALT 36 LAB L501.4600 0.20-1.00 mg/dL T Normal BILI 0.40 LAB L501.5300 136-145 mmol/L NA Normal 141 LAB L501.5600 3.5-5.1 mmol/L K Normal 4.2 LAB L501.5900 98-107 mmol/L High CL 108 LAB L501.6100 21.0-32.0 mmol/L Normal CO2 29.0 LAB L501.6200 5-15 Low GAP 4 Performed By: #### L500.4050, L500.4100, L501.9520 #### [facility] [address] [place], [place], [id number] LIPID PROFILE Collected: 06/29/2017 Status: F Source: [place] 8:37 AM [facility] REPOSITORY Order Comment: TOM ONLY GETS CBCD,CMP TYPE CODE TESTS RESULT OUT OF RANGE REFERENCE UNITS LAB L501.4900 200 mg/dL Normal CHOL 132 Result Comment: <200 mg/dL Desirable 200-240 mg/dL Borderline >240 mg/dL High Risk LAB L501.5000 mg/dL Normal TRIG 47 Result Comment: The drugs N-Acetylcysteine and Metamizole may falsely depress this assay. Serum Triglycerides Reference Interval Normal <150 mg/dL Borderline high 150 - 199 mg/dL High 200 - 499 mg/dL Very High > or = 500 mg/dL LAB L501.6400 mg/dL Normal HDL 56 Result Comment: The drugs N-Acetylcysteine and Metamizole may falsely depress this assay. Reference Range HDL <40 mg/dL Low HDL Cholesterol HDL >or= 60 mg/dL High HDL Cholesterol LAB L501.6500 0-130 mg/dL Normal LDL 67 LAB L501.6600 5-40 mg/dL Normal VLDL 9 Performed By: #### L500.4050, L500.4100, L501.9520 #### [facility] [address] [place], [address] THYROID STIM HORMONE Collected: 06/29/2017 Status: F Source: [place] ([facility]) 8:37 AM [facility] REPOSITORY Order Comment: TOM ONLY GETS CBCD,CMP TYPE CODE TESTS RESULT OUT OF RANGE REFERENCE UNITS LAB L501.9520 0.358-3.74 uIU/mL Normal TSH 0.84 Performed By: #### L500.4050, L500.4100, L501.9520 #### [place] [facility] [address] [place], [place], [address] VITAMIN D,25 HYDROXY Collected: 06/29/2017 Status: F Source: [place] 8:37 AM [facility] REPOSITORY TYPE CODE TESTS RESULT OUT OF RANGE REFERENCE UNITS LAB L506.1000 29.95-100.01 ng/mL Normal Vitamin D 38.9 25-OH Result Comment: Vitamin D 25(OH) Status Range Deficiency <20 ng/mL (50nmol/L) Insuffciency 20 - 30 ng/mL (50 - 75 nmol/L) Sufficiency 30 - 100 ng/mL (75 - 250 nmol/L) Toxicity >100 ng/mL (>250 nmol/L) Performed By: #### L506.1000 #### [facility] [address] [place], [place], [address] FOOT MIN 3 VIEWS Observed: 06/04/2017 Status: F Source: [place] 3:49 PM [facility] REPOSITORY [facility] Imaging Services [address] [place] [address] Foot min 3 Views MR#: [id number] Acct: [id number] Name: WILLA MORROW Rep #: [id number] : 1960 M 56 From: Anuel Harrison MD PCP: Cari Portillo DO Status: REG CLI Study: Foot min 3 Views Date of Exam: 06/04/17 Exam# [id number] Ordering Dr: Ruchi Valenzuela STUDY: X-RAY - RIGHT FOOT CLINICAL: Male, 56 years old. Right foot pain. TECHNIQUE: 3 view(s) of the foot. COMPARISON: None. FINDINGS: Normal talus, calcaneus, and tarsal bones. Normal visualized subtalar, talonavicular, calcaneocuboid, tarsal and tarsometatarsal articulations. Normal metatarsi. There is degenerative arthrosis of the metatarsophalangeal joint of the hallux . There is an 8 mm subchondral cyst of the head of the first metatarsal. Normal tibial and fibular sesamoid bones. Normal interphalangeal joint of the great toe. Normal phalanges of the great toe. Normal second through fifth metatarsophalangeal joints. Normal interphalangeal joints and phalanges of the lesser toes. The soft tissue structures are unremarkable. RAD/Foot min 3 Views IMPRESSION: No acute abnormality. Prominent degenerative changes of the first metatarsophalangeal joint. Electronically Signed: Anuel Harrison MD at 23:13 EDT , Service support , CC: Cari Portillo DO; Ruchi Valenzuela DPM Physical Therapy Technician: Signed FOOT MIN 3 VIEWS Observed: 06/04/2017 Status: F Source: [place] 3:49 PM [facility] REPOSITORY [facility] Imaging Services [address] [place] [address] Foot min 3 Views MR#: [id number] Acct: [id number] Name: WILLA MORROW Rep #: [id number] : 1960 M 56 From: Anuel Harrison MD PCP: Cari Portillo DO Status: REG CLI Study: Foot min 3 Views Date of Exam: 06/04/17 Exam# [id number] Ordering Dr: Ruchi Valenzuela STUDY: X-RAY - LEFT FOOT CLINICAL: Male, 56 years old. Pain. TECHNIQUE: 3 view(s) of the foot. COMPARISON: None. FINDINGS: Normal talus, calcaneus, and tarsal bones. Normal visualized subtalar, talonavicular, calcaneocuboid, tarsal and tarsometatarsal articulations. [...] IMPRESSION: Normal x-ray examination of the foot. Electronically Signed: Anuel Harrison MD at 23:14 EDT , Service support , CC: Cari Valenzuela DPM Physical Therapy Technician: Signed COMPREHENSIVE METABOLIC Collected: 04/22/2017 Status: F Source: [place] 4:02 PM [facility] REPOSITORY TYPE CODE TESTS RESULT OUT OF RANGE REFERENCE UNITS LAB L501.0100 74-106 mg/dL Normal GLU 98 Result Comment: Please note revised GLUCOSE reference range effective 2017. LAB L501.1000 7-18 mg/dL High BUN 19 LAB L501.1100 0.70-1.30 mg/dL Normal CREAT,SERUM 0.87 Result Comment: The validity of the calculated GFR AND GFRAA in patients over 70 years has not been determined. Clinical correlation is essential. LAB L501.1110 >60 mL/min Normal EST GFR 96 Result Comment: Non- GFR Calc LAB L501.1115 >60 mL/min Normal EST GFR - AA 116 Result Comment: GFR Calc LAB L501.1300 10-20 RATIO High BUN/CRE 21.9 LAB L501.1500 6.4-8.2 g/dL T Normal PROT 6.9 LAB L501.1800 3.2-5.0 g/dL Normal ALB 3.7 LAB L501.1950 2.2-4.2 g/dL Normal GLOB 3.2 LAB L501.2000 0.9-2.4 RATIO Normal A/G 1.2 LAB L501.2200 8.5-10.1 mg/dL CA Normal 8.5 LAB L501.4100 15-37 U/L Normal AST 28 LAB L501.4305 45-117 U/L Normal ALK P 68 LAB L501.4405 16-61 U/L Normal ALT 49 Result Comment: Please note revised ALT reference range effective 2017. LAB L501.4600 0.20-1.00 mg/dL Normal T BILI 0.50 LAB L501.5300 136-145 mmol/L Normal NA 140 LAB L501.5600 3.5-5.1 mmol/L Normal K 3.8 LAB L501.5900 98-107 mmol/L Normal CL 103 LAB L501.6100 21.0-32.0 mmol/L Normal CO2 30.0 LAB L501.6200 5-15 Normal GAP 7 Performed By: #### L500.4050 #### [facility] [address] [place], [place], [id number] CBC W/DIFF, AUTOMATED Collected: 04/22/2017 Status: F Source: [place] 4:02 PM [facility] REPOSITORY TYPE CODE TESTS RESULT OUT OF RANGE REFERENCE UNITS LAB L100.1000 4.4-11.0 K/mm3 Normal WBC 6.8 LAB L100.1200 4.6-6.2 M/mm3 Low RBC 4.17 LAB L100.1300 13.0-16.5 g/dl Low HGB 12.4 LAB L100.1400 40-54 % Low HCT 38.0 LAB L100.1500 80-94 fL Normal MCV 91.1 LAB L100.1600 27.0-32.0 pg Normal MCH 29.7 LAB L100.1700 32-36 g/gl Normal MCHC 32.6 LAB L100.1810 11.6-14.6 % High RDW CV 14.8 LAB L100.1820 35.1-43.9 fl High RDW SD 48.1 LAB L100.1900 150-450 K/mm3 Normal PLT 258 LAB L100.2000 6.2-12.0 fl Normal MPV 9.7 LAB L100.2100 47-70 % Normal NEUT% 62.1 LAB L100.2200 19-41 % Normal LY% 25.0 LAB L100.2300 0-10 % Normal MONO% 8.2 LAB L100.2400 0-5 % Normal EO% 4.1 LAB L100.2500 0-1 % Normal BASO% 0.3 LAB L100.2550 0.0-0.9 % Normal IM GRAN % 0.300 Result Comment: IG% - Immature Granulocytes (promyelocytes, myelocytes and metamyelocytes) > 1% indicates that a LEFT SHIFT is Present. LAB L100.2620 2.0-7.7 X10 3/uL Normal Absolute Neut 4.2 LAB L100.2720 0.83-4.51 X10 3/ul Normal Absolute Lymph 1.71 Performed By: #### L100.0100 #### [facility] [address] [place], [address] URGENT CARE VISIT Observed: 03/29/2017 Status: F Source: [place] REPORT 5:47 PM [facility] REPOSITORY Now [address] [place] [address] OFFICE VISIT Date of Service: 03/29/17 MR#: [id number] Acct: [id number] Name: WILLA MORROW Rep #: [id number] : 1960 Provider: Antonio CLEMENTS Age/Sex: 56/M [place] [facility] Status: Signed Intake Vital Signs03/29/17 Height 5 ft 5 in 03/29/17 Weight: 251 lb 03/29/17 Body Mass Index (BMI) 41.8 03/29/17 Blood Pressure 136/84 03/29/17 Blood Pressure Location Lt radial 03/29/17 Blood Pressure Position Sitting Intake Visit Reasons: Sore throat Is patient in pain?: Yes Allergies codeine Allergy (Verified 03/29/17 17:02) Hives gabapentin [From Neurontin] Allergy (Verified 03/29/17 17:02) Hives Sulfa (Sulfonamide Antibiotics) Allergy (Verified 03/29/17 17:02) Rash Medications Duloxetine Hcl [Cymbalta] 60 mg PO DAILY 04/20/16 [History Confirmed 03/29/17] Folic Acid 1 mg PO BIDCM 04/20/16 [History Confirmed 03/29/17] Irbesartan [Avapro] 150 mg PO DAILY 04/20/16 [History Confirmed 03/29/17] Levocetirizine Dihydrochloride [Xyzal] 5 mg PO DAILY 04/20/16 [History Confirmed 03/29/17] Metformin HCl [Metformin HCl ER] 1,000 mg PO DAILY 04/20/16 [History Confirmed 03/29/17] Methotrexate 17.5 mg PO Q7D 04/20/16 [History Confirmed 03/29/17] Pantoprazole Sodium [Protonix] 40 mg PO DAILY 04/20/16 [History Confirmed 03/29/17] cholecalciferol (vitamin D3) 1,000 unit capsule 1,000 unit PO ONCE 03/29/17 [History Confirmed 03/29/17] etanercept 50 mg/mL (0.98 mL) subcutaneous syringe 50 mg SC Q7D 03/29/17 [History Confirmed 03/29/17] PFSH Medical History Diabetes (Acute) Hay fever (Acute) Seizures (Acute) HTN (hypertension) (Chronic) Social History Smoking Status: Never smoker alcohol intake: current alcohol intake frequency: holidays/special occasions only Alcohol type: wine HPI HPI Details: WILLA MORROW, is a 56 M who presents to the office today for sore throat for the past 2 days. Patient 4 days ago started on Tamiflu for suspected flu B and states that his symptoms from the flu have nearly completely resolved. He noticed pain under his tongue and his neck starting yesterday. He denies fever, chills, sweats. No nausea, vomiting, diarrhea. No other associated symptoms or alleviating/aggravating factors. ROS Const Constitutional: No fever(s), headache(s), anorexia, chills or abnormal sleep pattern ENT ENT: Positive for post nasal drip and sore throat; no headache(s) Resp Respiratory: No shortness of breath Cardio Cardiology: No irregular heart rhythm or palpitations Gastro GI: No nausea/dyspepsia Neuro Neurology: No headache(s) or behavioral changes Psych Psychiatric: No behavioral changes, No abnormal sleep pattern Exam Const General: cooperative, healthy appearing HENMT Head: normal to inspection Ears: hearing grossly normal bilaterally, TM's normal bilaterally Nose: external nose normal, nasal discharge clear Mouth: oral mucosae normal Throat: abnormal tonsil bilaterally Resp Effort AND Inspection: normal respiratory effort Auscultation: Bilateral: Clear to Auscultation Cardio Palpation: normal PMI Rate: regular rate Rhythm: regular rhythm Neuro General: CN's II-XI intact bilaterally Psych Appearance: grossly normal Mental Status: mental status grossly normal Assessment AND Plan 1. Sore throat J02.9 Status [...] CLEMENTS Cosigner Signature: Date (if applicable) CC: ALLERGIES ALLERGIES DATE TYPE / CODE NAME / CODE REACTION SEVERITY SOURCE 01/18/2018 Drug Sulfa Rash Unknown [facility] Allergy/4160 (Sulfonamide Hospital 50732(SNOMED Antibiotics)/ Repository CT) [id number](RX NORM) 01/18/2018 Drug codeine/F0060 Hives Unknown [facility] Allergy/4160 51522(RXNORM) Hospital 06499(SNOMED Repository CT) 01/18/2018 Drug gabapentin/F0 Hives Unknown [facility] Allergy/4160 07639790(RXNO Hospital 69749(SNOMED RM) Repository CT) ENCOUNTERS ENCOUNTERS ADMIT/DISCHARGE ACCOUNT ADMITTING ENCOUNTER LOCATION SOURCE NUMBER CLASS 03/21/2018 [id number] Ambulatory [place] 3 [facility] ing:LAB.FUTUR Repository E 03/18/2018 [id number] [place] [facility] Hospital ing:LAB Repository 03/12/2018 [id number] Ambulatory Building:[facility] [place] Practices Repository 03/08/2018 [id number] Ambulatory [place] [facility] ing:LAB Repository 01/18/2018/ [id number] Ambulatory BMSBuilding:B [place] 8 4 [facility] Repository 10/23/2017/ [id number] Ambulatory [place] 8 2 [facility] Hospital ing:PT Repository 10/23/2017 [id number] Ambulatory [place] [facility] Hospital ing:MTLAB Repository 10/11/2017 [id number] Ambulatory [place] [facility] Hospital ing:LAB Repository 09/25/2017 [id number] Ambulatory [place] 2 [facility] Hospital ing:MTRAD Repository 07/31/2017/ [id number] Ambulatory BMSBuilding:B [place] 8 0 [facility] Repository 06/29/2017 [id number] Ambulatory [place] [facility] Hospital ing:LAB.FUTUR Repository E 06/04/2017 [id number] Ambulatory [place] 5 [facility] Hospital ing:RAD Repository 04/22/2017 [id number] Ambulatory [place] 1 [facility] Hospital ing:MTLAB Repository 03/29/2017/ [id number] Ambulatory BMSBuilding:B [place] 8 0 [facility] Repository PAYERS PAYERS ENCOUNTER GUARANTOR PAYER SUBSCRIBER SOURCE 03/21/2018 ED R [place] Primary Insurance:[facility] JANIA [address] STIVERSDOB: [facility] [id number]: [facility] [id number] Hospital Number: Repository () [id number] Date:8980-95-98LD [address], [place] [address]YM: CHECK WEBSITE 03/21/2018 Secondary NOT GIVENUNK [place] Insurance:SELF PAY [facility] Number: Effective Repository Date:2018-03-20 03/18/2018 ED R [place] Primary Insurance:[facility] JANIA Hopsonoster [address] STIVERSDOB: [facility] [id number]: [facility] [id number] Hospital Number: Repository () [id number] Date:1094-23-19XU [facility] [address], [place] [address]EB: CHECK WEBSITE 03/18/2018 Secondary NOT GIVENUNK [place] Insurance:SELF PAY [facility] Number: Effective Repository Date:2018-03-18 03/12/2018 Ed StiversDOB: Primary Jania OHIP Practices [id number] Box Insurance:Medical StiversDOB: [facility] [id number]: (330) Number: [address], [phone] () [id number] [place] [id number]: Date:6490-86-31Tsop Name:[facility] Bong () [address], [place] [id number]: 03/12/2018 Secondary Jania OHIP Practices Insurance:CBCA/CCH, StiversDOB: Repository [facility] Number: [id number] [address], Date:2007-07-24 - [place] [address]Bfc: [id number] Name:JENNIFER ROGERS) MARIANA MERCADO [address]WT: 03/08/2018 ED R [place] Primary Insurance:[facility] JANIA Dinesh [place] [address] STIVERSDOB: [facility] [place] [address]Aeb: [facility] [id number] Hospital Number: Repository () [id number] Date:6114-48-37ER [address] [address]LQ[place], [place] [address]YT: CHECK WEBSITE 03/08/2018 Secondary NOT GIVENUNK [place] Insurance:SELF PAY [facility] Number: Effective Repository Date:2018-03-08 01/18/2018 ED R [place] Primary Insurance:[facility] JANIA Montiel [place] [address] STIVERSDOB: [facility] [place] [address]Qhx: [facility] [id number] Hospital Number: Repository () [id number] Date:5804-54-71YQ [address] [address], [place] [address]GG: CHECK WEBSITE 01/18/2018 Secondary NOT GIVENUNK [place] Insurance:SELF PAY [facility] Number: Effective Repository Date:2018-01-18 10/23/2017 ED R [place] Primary Insurance:[facility] JANIA Montiel [place] [address] STIVERSDOB: [facility] [place] [address]Qhj: [facility] [id number] Hospital Number: Repository () [id number] Date:9884-52-06PZ [address] [address]CKGIJFAZT, [place] [address]WV: CHECK WEBSITE 10/23/2017 Secondary NOT GIVENUNK [place] Insurance:SELF PAY [facility] Number: Effective Repository Date:2017-10-09 10/23/2017 ED R [place] Primary Insurance:[facility] JANIA Montiel [place] [address] STIVERSDOB: [place] [address]Uhp: [facility] [id number] Hospital Number: Repository () [id number] Date:6708-56-86KG [address] [address]YOEWPQJYT, [place] [address]JU: CHECK WEBSITE 10/23/2017 Secondary NOT GIVENUNK [place] Insurance:SELF PAY [facility] Number: Effective Repository Date:2017-10-23 10/11/2017 ED R [place] Primary Insurance:[facility] JANIA Montiel [place] [address], [facility] STIVERSDOB: [place] [address]Sqm: [facility] [id number] Hospital Number: Repository () [id number] Date:2744-77-48JW [address] [address], [place] [address]EC: CHECK WEBSITE 10/11/2017 Secondary NOT GIVENUNK [place] Insurance:SELF PAY [facility] Number: Effective Repository Date:2017-10-11 09/25/2017 ED R [place] Primary Insurance:[facility] JANIA Montiel [place] [address], [facility] STIVERSDOB: [place] [address]Uoa: [facility] [id number] Hospital Number: Repository () [id number] Date:7756-83-92CG [address] [address]GU, [place] [address]RR: CHECK WEBSITE 09/25/2017 Secondary NOT GIVENUNK [place] Insurance:SELF PAY [facility] Number: Effective Repository Date:2017-09-25 07/31/2017 ED R [place] Primary Insurance:[facility] JANIA Dinesh [place] [address] STIVERSDOB: [place] [address]Wuu: [facility] [id number] Hospital Number: Repository () [id number] Date:8576-01-93VT [address] [address]PXPDMYPHV, [place] [address]KJ: CHECK WEBSITE 07/31/2017 Secondary NOT GIVENUNK [place] Insurance:SELF PAY [facility] Number: Effective Repository Date:2017-08-14 06/29/2017 ED R [place] Primary Insurance:[facility] JANIA [place] [address], [facility] STIVERSDOB: [facility] [place] [address]Noa: [facility] [id number] [place] [phone]~330 Number: Repository -2 () [id number] Date:4059-28-25EO [address] [address]JZWXJ[place]O, [place] [address]VR: CHECK WEBSITE 06/29/2017 Secondary NOT GIVENUNK [place] Insurance:SELF PAY [facility] Number: Effective Repository Date:2017-06-28 06/04/2017 ED R [place] Primary Insurance:[facility] JANIA [place] [address] STIVERSDOB: [facility] [place] [address]Upq: [facility] [id number] [place], [place] [phone]~330 Number: Repository -2 () [id number] Date:6632-71-27ZY [address] [address]WTPMUDLWP, [place] [address]UX: CHECK WEBSITE 06/04/2017 Secondary NOT GIVENUNK [place] Insurance:SELF PAY [facility] Number: Effective Repository Date:2017-06-04 04/22/2017 ED R [place] Primary Insurance:[facility] JANIA [place] [address], [facility] STIVERSDOB: [facility] [place] [address]Zvk: [facility] [id number] Ville [phone]~330 Number: Repository -2 () [id number] Date:4462-87-02DH [address] [address]QPYCAGVFN, [place] [address]IG: CHECK WEBSITE 04/22/2017 Secondary NOT GIVENUNK [place] Insurance:SELF PAY [facility] Number: Effective Repository Date:2017-04-22 03/29/2017 ED R [place] Primary Insurance:[facility] JANIA [place] [address] [facility] STIVERSDOB: [facility] [place] [address]Taz: [facility] [id number] Ville [phone]~330 Number: Repository -2 () [id number] Date:0930-25-24HD [address] [address]HVZLOWYNK, [place] [address]VQ: CHECK WEBSITE 03/29/2017 Secondary NOT GIVENUNK [place] Insurance:SELF PAY [facility]: Effective Repository Date:2017-03-29
== END ==
PROVIDERS: Family Provider Internal Medicine; PCP Internal Medicine; Referring Provider Internal Medicine; Visit Provider Internal Medicine
DX: D72.1 Eosinophilia (principal); Z12.5 Encounter for screening for malignant neoplasm of prostate
CPT/HCPCS: 36415; 84153; 85025; G0103

== ENCOUNTER → 2018-03-21 15:32 | Outpatient (CLI) | payer OTHER, SELFPAY ==
[2018-01-18 08:15] VITALS: BMI 41.8
--- NOTE | 2018-03-21 15:50 | RAD_ITS ---
HISTORY: RASH ALL OVER BODY X 2-3 MONTHS. NO CHEST COMPLAINTS. EXAM:XR Chest 2 Views: COMPARISON: 05/26/2013 FINDINGS: With comparison to previous, no significant change. Shallow inspiration. Normal heart size. No vascular congestion, pleural effusion, or acute pulmonary infiltration. No pneumothorax. Dorsal kyphosis. RAD/Chest PA and Lateral IMPRESSION: No acute cardiopulmonary disease. No significant interval change. at 0421 Reported and signed by: Rob Casey MD Electronically Signed: Rob Casey, at 4:20 EST Tel , Service support ,
[2018-03-21 16:25] LABS: Absolute Lymphocyte Count 1.71 X10^3/ul (0.83-4.51); Absolute Neutrophil Count 4.7 X10^3/uL (2.0-7.7); Basophil# 0.02 X10^3/uL; Basophil% 0.3 % (0-1); Eosinophil# 0.47 X10^3/uL; Eosinophils% 6.2 % (0-5); Hematocrit 42.2 % (40-54); Hemoglobin 13.5 g/dl (13.0-16.5); Lymphocyte # 1.71 X10^3/ul (4.0); Lymphocyte % 22.4 % (19-41); Mean Corpuscular Hgb 29.3 pg (27.0-32.0); Mean Corpuscular Volume 91.7 fL (80-94); Mean Platelet Vol. 10.1 fl (6.2-12.0); Monocyte# 0.69 X10^3/uL; Neutrophil # 4.72 X10^3/uL (2.7-7.7); Neutrophil % 61.8 % (47-70); Platelet Count 251 K/mm3 (150-450); RBC Distribution Width CV 14.9 % (11.6-14.6); RBC Distribution Width SD 48.9 fl (35.1-43.9); White Blood Count 7.6 K/mm3 (4.4-11.0)
[2018-03-21 16:31] LABS: POSITIVE COUNT NO; POSITIVE DIFFERENTIAL NO; POSITIVE MORPHOLOGY NO
[2018-03-21 16:59] LABS: AST(SGOT) 23 U/L (15-37); Alanine Aminotransfer ALT/SGPT 34 U/L (16-61); Albumin, Serum 3.8 g/dL (3.2-5.0); Alkaline Phosphatase 69 U/L (45-117); Anion Gap 9 (5-15); BUN 18 mg/dL (7-18); BUN/Creat Ratio 18.3 RATIO (10-20); Bilirubin, Direct 0.12 mg/dL (0.00-0.30); Calcium,Total 8.6 mg/dL (8.5-10.1); Chloride 103 mmol/L (98-107); Creatinine, Serum 0.99 mg/dL (0.70-1.30); EST Glomerular Filtration Rate 83 mL/min (>60); Est Glom Filt Rate - Afr Amer 100 mL/min (>60); Globulin 3.6 g/dL (2.2-4.2); Glucose 111 mg/dL (74-106); Potassium 4.3 mmol/L (3.5-5.1); Protein, Total 7.4 g/dL (6.4-8.2); Sodium Level 140 mmol/L (136-145); T4 Free Direct 1.08 ng/dL (0.76-1.46)
[2018-03-21 17:40] LABS: HIV - WCH Non-Reactive (Nonreactive)
[2018-03-24 14:06] LABS: PROEL- A/G Ratio 1.5 (0.7-1.7); PROEL- Albumin 4.1 g/dL (2.9-4.4); PROEL- Alpha-1 Globulin 0.2 g/dL (0.0-0.4); PROEL- Alpha-2 Globulin 0.7 g/dL (0.4-1.0); PROEL- Beta Globulin 0.9 g/dL (0.7-1.3); PROEL- Globulin, Total 2.8 g/dL (2.2-3.9); PROEL- TOTAL PROTEIN 6.9 g/dL (6.0-8.5)
[2018-03-26 03:07] LABS: Immunoglobulin A 85 mg/dL (90-386); Immunoglobulin E 111 IU/mL (0-100); Immunoglobulin G 1060 mg/dL (700-1600); Immunoglobulin M 51 mg/dL (20-172); PROELU- Albumin, Urine 41.9 % (.); PROELU- Alpha-1-Globulin,Ur 3.5 % (.); PROELU- Beta Globulin, Ur 20.1 % (.); PROELU- Gamma Globulin, Ur 26.5 % (.); Total Protein, Ur 4.5 mg/dL (Not Estab.)
[2018-03-26 11:51] LABS: Hep C Antibodies <0.1 s/co ratio (0.0-0.9)
== END ==
PROVIDERS: Family Provider Internal Medicine; PCP Internal Medicine; Referring Provider Dermatology; Visit Provider Dermatology
DX: L29.8 Other pruritus (principal)
CPT/HCPCS: 36415; 71046; 80048; 80076; 82784; 82785; 84165; 84166; 84439; 85025; 86334; 86703; 86803

== ENCOUNTER → 2018-04-09 13:55 | Outpatient (CLI) | payer OTHER, SELFPAY ==
[2018-01-18 08:15] VITALS: BMI 41.8
--- NOTE | 2018-04-09 13:58 | RAD_ITS ---
STUDY: X-RAY - RIGHT SHOULDER REASON FOR EXAM: Male, 57 years old. Anterior shoulder pain radiating down the arm for 2 to 3 days. TECHNIQUE: 4 view(s) of the shoulder. COMPARISON: None. FINDINGS: There is narrowing of the acromiohumeral space. There are mild degenerative changes of the glenohumeral joint. There is degenerative arthrosis of the acromioclavicular joint without inferior osseous spur formation. There is a lateral downward sloping acromion which contributes to the narrowed acromiohumeral space. Normal humeral head and visualized proximal humerus. The soft tissue structures are unremarkable. Normal visualized pulmonary apex. RAD/Shoulder min 2 Views IMPRESSION: Degenerative changes of the right shoulder. Electronically Signed: Rufus Stanton DO at 20:49 EST Tel [phone], Service support ,
== END ==
PROVIDERS: Family Provider Internal Medicine; PCP Internal Medicine; Referring Provider Internal Medicine; Visit Provider Internal Medicine
DX: M25.511 Pain in right shoulder (principal)
CPT/HCPCS: 73030

== ENCOUNTER → 2018-06-04 08:25 | Outpatient (CLI) | payer OTHER, SELFPAY ==
[2018-06-04 08:09] VITALS: BMI 41.8
--- NOTE | 2018-06-04 08:27 | RAD_ITS ---
STUDY: X-RAY - RIGHT HUMERUS REASON FOR EXAM: Male, 57 years old. Pain TECHNIQUE: 4 view(s) of the humerus. COMPARISON: None. FINDINGS: Normal visualized humerus. There is no demonstrated fracture or osseous destructive process. There is no demonstrated soft tissue abnormality. RAD/Humerus min 2 Views IMPRESSION: Normal x-ray examination of the humerus. Electronically Signed: Tiera Pena MD at 5:36 EDT , Service support ,
== END ==
PROVIDERS: Family Provider Internal Medicine; PCP Internal Medicine; Referring Provider Orthopaedic Surgery; Visit Provider Orthopaedic Surgery
DX: M79.621 Pain in right upper arm (principal)
CPT/HCPCS: 73060

== ENCOUNTER → 2018-07-07 | Outpatient (CLI) | payer OTHER, SELFPAY ==
[2018-07-07 15:56] VITALS: BMI 41.8
--- NOTE | 2018-07-07 16:04 | RAD_ITS ---
STUDY: X-RAY - CERVICAL SPINE REASON FOR EXAM: Male, 57 years old. Shoulder pain. TECHNIQUE: 5 view(s) of the cervical spine were obtained including flexion and extension views.. COMPARISON: None FINDINGS: Normal anterior atlantoaxial articulation. Normal odontoid process. Normal cervical lordosis. There is multi-level endplate spondylosis. There is multi-level degenerative disc disease with multilevel disc space narrowing. Normal visualized intervertebral neuroforamina. Facet joint osteoarthritis. The soft tissue structures are unremarkable. RAD/Cerv Spine 4 or 5 Views IMPRESSION: Spondylosis and disc space narrowing at the C5-C6 and C6-C7 levels. Electronically Signed: Dagoberto Mosher, at 12:49 EDT , Service support ,
== END | disposition home or self-care (01) ==
LOC: HPRAD 16:04
PROVIDERS: Family Provider Internal Medicine; PCP Internal Medicine; Referring Provider Orthopaedic Surgery; Visit Provider Orthopaedic Surgery
DX: M77.9 Enthesopathy, unspecified (principal)
CPT/HCPCS: 72050

== ENCOUNTER 2018-07-16 12:30 | Outpatient (RCR) | payer OTHER, SELFPAY ==
[2018-06-04 08:09] VITALS: BMI 41.8
--- NOTE | 2018-06-18 18:48 | HP.PTEVAL ---
Patient's Visit Information ED Cristian MORROW Jr. is a 57 year old M referred to Physical Therapy by Davis Hagan DO with a diagnosis of triceps tendonitis. 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 Something with his R arm. Dr Portillo did x-ray and showed arthritis and shot cortizone and did not help and sent him to Dr Carcamo. He said that it was tricep tendonitis. But he feels that there is a divot in his R tricep area. He can pcik up something with his fingers towards the ceiling and has trouble with picking up an object with his fingers pointed downward.... pain and weakness. He has been using 2 arms and not he has messed up his shoulder as well. When it first happended it hurt to get to sleep etc and then about 2 weeks ago he was frying up some sausage... and pulled arm back quick and his anterior chest wall was stretched and they are starting to come back. It hurts when he sleeps cause its hard to sleep on his sides (especially on the R). He is R handed. 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 He has no N&T. Occ he will get some radiating symptoms to the forearm on the R but its only occ. He has had a h/o of neck issues and C5 and C7 but years ago Dr leach that he would not do anything unless pressing on spinal cord. - Pain R tricep pain Pain Intensity (Out of 10): 5 - Objective Pt is R handed R 85# and L 80#. Full UE AROM. R shld MMT: Flex 4-/5 and L 4+/5, R 4-/5 and L 4/5, ER R 3-/5 and L 4/5, B IR 4/5, bicep B 4/5, tricep B 4/5. Full PROM into flexion, abd, ER and IR on the R. Palpation: small dip in tricep on the R posterior shoulder..... 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 Goal Time Frame: 4-6 Weeks - Rehabilitation Potential Rehabilitation Potential: Good - Anticipated Interventions Patient/Client Instruction: Educate patient on: Condition, Plan of Care For the Purpose of:: To improve nutrient delivery to tissue, To improve muscle performance and motor function, To increase tolerance to activity/condition/position, To improve performance and independence with ADL's, To decrease level of supervision to perform tasks, To improve ability of physical actions for home/community/work/leisure, To improve health of tissue Therapeutic Exercise to Include: Strength training, Active ROM, Scapular Strength/Stabilization For the Purpose of:: To decrease pain, To improve nutrient delivery to tissue, To improve muscle performance and motor function, To improve ability to perform ADL's, To increase tolerance to activity/condition/position, To improve ability of physical actions for home/community/work/leisure IF ES: Yes Cryotherapy (ice pack, ice massage): Yes Thermo therapy (hot pack): Yes Ultrasound (thermal/non thermal): Yes For the Purpose of:: To decrease pain, To decrease swelling/inflammation, To improve nutrient delivery to tissue Thank you for the opportunity to evaluate your patient. For Medicare and Medicare HMO plans, please review the plan of care and approve it. It will need to be FAXED BACK to us at [phone] for Medicare purposes. For Medicare only, by signing this I certify the plan of care. Please let me know if there are questions or concerns regarding this plan of care. Physician Signature: Date:
--- NOTE | 2018-07-15 15:57 | HP.PTEVAL_ITS ---
Patient's Visit Information ED Cristian MORROW Jr. is a 57 year old M referred to Physical Therapy by Davis Hagan with a diagnosis of triceps tendonitis. Date of Evaluation: 06/18/18 Physical Therapist: Farrukh Mcleod, DPT, OCS, CSCS - Visit Plan Frequency: 2-3x /Week Duration: 6 Weeks Plan: EVAL FOR CERV/RADICULOPATHY NEXT WEEK. 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 Something with his R arm. Dr Portillo did x-ray and showed arthritis and shot cortizone and did not help and sent him to Dr Carcamo. He said that it was tricep tendonitis. But he feels that there is a divot in his R tricep area. He can pcik up something with his fingers towards the ceiling and has trouble with picking up an object with his fingers pointed downward.... pain and weakness. He has been using 2 arms and not he has messed up his shoulder as well. When it first happended it hurt to get to sleep etc and then about 2 weeks ago he was frying up some sausage... and pulled arm back quick and his anterior chest wall was stretched and they are starting to come back. It hurts when he sleeps cause its hard to sleep on his sides (especially on the R). He is R handed. 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 He has no N&T. Occ he will get some radiating symptoms to the forearm on the R but its only occ. He has had a h/o of neck issues and C5 and C7 but years ago Dr leach that he would not do anything unless pressing on spinal cord. - Pain R tricep pain Pain Intensity (Out of 10): 10 Comment: 14/12 with lifting weight. L shoulder pain Pain Intensity (Out of 10): 10 R SH Pain Intensity (Out of 10): 10 R bicep Pain Intensity (Out of 10): 10 - Objective Pt is R handed R 85# and L 80#. Full UE AROM. R shld MMT: Flex 4-/5 and L 4+/5, R 4-/5 and L 4/5, ER R 3-/5 and L 4/5, B IR 4/5, bicep B 4/5, tricep B 4/5. Full PROM into flexion, abd, ER and IR on the R. Palpation: small dip in tricep on the R posterior shoulder..... 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 Goal Time Frame: 4-6 Weeks - Rehabilitation Potential Rehabilitation Potential: Good - Anticipated Interventions Patient/Client Instruction: Educate patient on: Condition, Plan of Care For the Purpose of:: To improve nutrient delivery to tissue, To improve muscle performance and motor function, To increase tolerance to activity/condition/position, To improve performance and independence with ADL's, To decrease level of supervision to perform tasks, To improve ability of physical actions for home/community/work/leisure, To improve health of tissue Therapeutic Exercise to Include: Strength training, Active ROM, Scapular St rength/Stabilization For the Purpose of:: To decrease pain, To improve nutrient delivery to tissue, To improve muscle performance and motor function, To improve ability to perform ADL's, To increase tolerance to activity/condition/position, To improve ability of physical actions for home/community/work/leisure IF ES: Yes Cryotherapy (ice pack, ice massage): Yes Thermo therapy (hot pack): Yes Ultrasound (thermal/non thermal): Yes For the Purpose of:: To decrease pain, To decrease swelling/inflammation, To improve nutrient delivery to tissue Thank you for the opportunity to evaluate your patient. For Medicare and Medicare HMO plans, please review the plan of care and approve it. It will need to be FAXED BACK to us at [phone] for Medicare purposes. For Medicare only, by signing this I certify the plan of care. Please let me know if there are questions or concerns regarding this plan of care. Physician Signature: Date:
--- NOTE | 2018-07-23 16:33 | HP.PT.NRP ---
HP - Discharge Summary (1) - Patient Information ED Cristian MORROW Jr. was seen in my office for initial evaluation on 06/18/18. The following Plan of Care was established for this patient: Initial Frequency: 2-3x /Week Initial Duration: 6 Weeks - Anticipated Interventions Patient/Client Instruction: Educate patient on: Condition, Plan of Care For the Purpose of:: To improve nutrient delivery to tissue, To improve muscle performance and motor function, To increase tolerance to activity/condition/position, To improve performance and independence with ADL's, To decrease level of supervision to perform tasks, To improve ability of physical actions for home/community/work/leisure, To improve health of tissue Therapeutic Exercise to Include: Strength training, Active ROM, Scapular Strength/Stabilization For the Purpose of:: To decrease pain, To improve nutrient delivery to tissue, To improve muscle performance and motor function, To improve ability to perform ADL's, To increase tolerance to activity/condition/position, To improve ability of physical actions for home/community/work/leisure IF ES: Yes Cryotherapy (ice pack, ice massage): Yes Thermo therapy (hot pack): Yes Ultrasound (thermal/non thermal): Yes For the Purpose of:: To decrease pain, To decrease swelling/inflammation, To improve nutrient delivery to tissue This patient was last seen in our office . Pertinent comments regarding their Physical therapy will appear below: At this point I will be discontinuing this patient from physical therapy. I would be happy to see this patient again in the future if found appropriate by the physician. Thank you! Myla Pacheco, MPT
--- NOTE | 2018-07-24 17:27 | HP.PT.NRP(2) ---
HP - Discharge Summary (2) - Patient Information ED Cristian MORROW Jr. was seen in my office for initial evaluation on 07/15/18. The following Plan of Care was established for this patient: Initial Frequency: 2x /Week Initial Duration: 4-6 Weeks Plan from Re-Evaluation: 2x/week for 4-6 for. 1. ICT and monitor effects. 2. c/s retraction repeated and c/s mobs progressing ROM. 3. cervical and postural strength and progression. 4. May de ES and MH if pain persists to neck. - Anticipated Interventions Patient/Client Instruction: Educate patient on: Condition, Plan of Care For the Purpose of:: To decrease pain, To increase ROM, To increase tolerance to activity/condition/position Therapeutic Exercise to Include: Strength training, Passive ROM, Active ROM For the Purpose of:: To decrease pain, To increase ROM Manual Therapy Techniques to Include: Mobilization For the Purpose of:: To increase ROM TENS: Yes Thermo therapy (hot pack): Yes For the Purpose of:: To decrease pain This patient was last seen in our office . Pertinent comments regarding their Physical therapy will appear below: Pt seen 2 visits for neck but has cancelled all visits stating that he is having R RC repair surgery next week. Will discontinue due to this request. At this point I will be discontinuing this patient from physical therapy. I would be happy to see this patient again in the future if found appropriate by the physician. Thank you! Farrukh Mcleod, DPT, OCS, CSCS
== END 2018-07-16 19:00 | disposition home or self-care (01) ==
LOC: PT 12:30
PROVIDERS: Family Provider Internal Medicine; PCP Internal Medicine; Referring Provider Orthopaedic Surgery
DX: M77.8 Other enthesopathies, not elsewhere classified (principal)
CPT/HCPCS: 97012; 97014; 97110; 97161; G0283

== ENCOUNTER → 2018-07-19 | Outpatient (CLI) | payer OTHER, SELFPAY ==
[2018-07-07 15:56] VITALS: BMI 41.8
--- NOTE | 2018-07-19 07:25 | MRI_ITS ---
STUDY: MRI CERVICAL SPINE WITHOUT CONTRAST REASON FOR EXAM: Male, 57 years old. Neck pain and bilateral arm pain. TECHNIQUE: Standardized fat and water weighted pulse sequences were obtained in the sagittal and axial planes. COMPARISON: None FINDINGS: Normal foramen magnum and brainstem-cervical cord junction. Normal craniovertebral junction. Normal anterior atlantoaxial articulation. Normal odontoid process. Normal cervical lordosis. Normal vertebral bodies and posterior osseous elements. C2-3: Normal endplates. Normal disc height, signal and morphology. Normal central canal and intervertebral neural foramina. C3-4: Disc desiccation is present with minimal degenerative anterolisthesis. There is left uncovertebral joint arthropathy and facet arthropathy resulting in moderate left foraminal narrowing. C4-5: Normal endplates. Normal disc height, signal and morphology. Normal central canal and intervertebral neural foramina. C5-6: With no significant spinal canal narrowing or foraminal narrowing. C6-7: Posterior endplate degenerative changes and decreased disc space with no significant spinal canal narrowing or foraminal narrowing. C7-T1: Disc desiccation with mild decreased disc space. No significant spinal canal narrowing or foraminal narrowing. Normal cervical cord. Normal visualized soft tissue structures. MRI/Spine Cervical (Routine) IMPRESSION: Mild disc degenerative changes as above with noted C3-4 left moderate foraminal narrowing, clinically correlate for exiting left C3-C4 nerve root radiculopathy. Electronically Signed: Major Schuster DO at 11:37 EDT , Service support ,
--- NOTE | 2018-07-19 07:25 | MRI_ITS ---
STUDY: MRI RIGHT SHOULDER REASON FOR EXAM: Male, 57 years old. Right shoulder pain. Decreased range of motion. TECHNIQUE: Standardized fat and water weighted pulse sequences were obtained in all 3 orthogonal planes. COMPARISON: X-ray dated April 09, 2018. FINDINGS: Full-thickness massively retracted rotator cuff tear involving the supraspinatus and infraspinatus tendons. Tendons retracted to the level of the acromioclavicular joint. Moderate supraspinatus and infraspinatus tendinosis. Mild subscapularis tendinosis. Normal teres minor tendon. Moderate supraspinatus and infraspinatus muscle atrophy (sagittal image 1 series 7). Remainder of the rotator cuff muscles unremarkable. Mild intracapsular long biceps tendinosis. Biceps labral anchor intact. Labrum intact. Capsular ligaments intact with mild thickening. Fluid at the rotator cuff interval. Mild glenohumeral articular cartilage loss. Moderate acromioclavicular joint arthrosis. Narrowing of the acromiohumeral interval. No acute fracture, dislocation or osseous destruction. Moderate volume glenohumeral joint effusion with fluid extending through tear into the subacromial subdeltoid bursa. Intact coracohumeral and coracoacromial ligaments. Normal quadrilateral space. Normal axillary space. Normal deltoid muscle. Normal trapezius muscle. MRI/Upper Ext Joint Only(Routine) IMPRESSION: Full-thickness massively retracted supraspinatus and infraspinatus tendon tears Rotator cuff tendinosis with supraspinatus/infraspinatus muscle atrophy Mild intracapsular long biceps tendinosis without tear Mild capsular thickening/adhesive changes Glenohumeral and AC joint arthrosis with anterior impingement Joint effusion extending through tear into the subacromial subdeltoid bursa Electronically Signed: Farrukh Gambino DO at 19:17 EDT Tel , Service support ,
== END | disposition home or self-care (01) ==
LOC: MRI 07:24
PROVIDERS: Family Provider Internal Medicine; PCP Internal Medicine; Referring Provider Orthopaedic Surgery; Visit Provider Orthopaedic Surgery
DX: M54.12 Radiculopathy, cervical region (principal); M50.30 Other cervical disc degeneration, unspecified cervical region; M77.9 Enthesopathy, unspecified
CPT/HCPCS: 72141; 73221

== ENCOUNTER → 2018-07-31 | Outpatient (CLI) | payer OTHER, SELFPAY ==
[2018-07-07 15:56] VITALS: BMI 41.8
--- NOTE | 2018-07-31 06:34 | MRI_ITS ---
STUDY: MRI LEFT SHOULDER REASON FOR EXAM: Pain and limited range of motion, lifting injury 1 week ago. TECHNIQUE: Standardized fat and water weighted pulse sequences were obtained in all 3 orthogonal planes. COMPARISON: Radiographs 10/20/2014. FINDINGS: There is a full-thickness tear of the supraspinatus and infraspinatus tendons retracted approximately 2.9 cm (T2 coronal images 8-17). There is mild subscapularis tendinosis (proton density axial images 10-12) without discrete tendon tear. Normal teres minor tendon. Normal supraspinatus muscle. There is mild edema in the distal infraspinatus muscle. Normal subscapularis muscle. There is edema in the teres minor muscle (T2 coronal image 3). There is a small glenohumeral joint effusion with synovitis in the subscapularis recess (T2 coronal image 20). There is superior migration of the humeral head secondary to the retracted rotator cuff tear. Normal biceps labral complex. Normal intracapsular long biceps tendon. Normal labrum. Normal capsulo- ligamentous complex. There is acromioclavicular arthrosis with mild hypertrophic changes (T2 sagittal image 8). There is a Type II morphology (curved), with a neutral orientation. There is a small volume of subacromial-subdeltoid bursal fluid. There is thickening of the coracoacromial ligament (T2 sagittal image 11). There is a low-grade strain of the lateral deltoid muscle (T2 coronal images 18-20). Normal trapezius muscle. MRI/Upper Ext Joint Only(Routine) IMPRESSION: Full-thickness tear of the supraspinatus and infraspinatus tendons. Mild subscapularis tendinosis. Acromioclavicular arthrosis. Thickening of the coracoacromial ligament. Strains of the teres minor and lateral deltoid muscles. Glenohumeral joint fluid communicating with the subacromial-subdeltoid bursa. Electronically Signed: Jeromy Olvera MD at 8:21 EDT Tel , Service support ,
== END | disposition home or self-care (01) ==
LOC: MRI 06:32
PROVIDERS: Family Provider Internal Medicine; PCP Internal Medicine; Referring Provider Orthopaedic Surgery; Visit Provider Orthopaedic Surgery
DX: S46.912A Strain of unspecified muscle, fascia and tendon at shoulder and upper arm level, left arm, initial encounter (principal)
CPT/HCPCS: 73221

== ENCOUNTER 2018-08-08 05:31 | Day surgery (SDC) | payer OTHER, SELFPAY ==
[2018-07-07 15:56] VITALS: BMI 41.8
--- NOTE | 2018-07-23 04:58 | HP_ITS ---
Intake Intake Visit Reasons: Cervical/Rt arm Allergies codeine Allergy (Verified 06/04/18 08:09) Hives gabapentin [From Neurontin] Allergy (Verified 06/04/18 08:09) Hives Sulfa (Sulfonamide Antibiotics) Allergy (Verified 06/04/18 08:09) Rash Medications Duloxetine Hcl [Cymbalta] 60 mg PO DAILY 04/20/16 [History Confirmed 06/04/18] Irbesartan [Avapro] 150 mg PO DAILY 04/20/16 [History Confirmed 06/04/18] Levocetirizine Dihydrochloride [Xyzal] 5 mg PO DAILY 04/20/16 [History Confirmed 06/04/18] Pantoprazole Sodium [Protonix] 40 mg PO DAILY 04/20/16 [History Confirmed 06/04/18] cholecalciferol (vitamin D3) 1,000 unit capsule 1,000 unit PO ONCE 03/29/17 [History Confirmed 06/04/18] aspirin 81 mg tablet,delayed release 81 mg PO DAILY 06/04/18 [History Confirmed 06/04/18] meloxicam 15 mg tablet 15 mg PO DAILY #30 tab 06/04/18 [Rx Confirmed 06/04/18] PFSH Medical History Diabetes (Acute) Hay fever (Acute) Seizures (Acute) HTN (hypertension) (Chronic) Social History Smoking Status: Never smoker alcohol intake: current alcohol intake frequency: holidays/special occasions only Alcohol type: wine HPI Cervical/Rt arm: Chief Complaint: f/u right shoulder MRI. Left shoulder new problem Surgical H&P: Yes Details: Parts of this documentation were recorded by a scribe, this documentation accurately reflects the service provided and the decisions made by , Davis Hagan DO 07/23/18 0757. ED CRISTHIAN is a 57 year old M here today for F/U on right shoulder pain. Patient had an MRI of his right shoulder and cervical spine. Patient does state he had an injury to his left shoulder on 07/18/18 when he was lifting mulch. Patient states he heard a pop and had instant pain of his shoulder and limited ROM. Ortho Exam Right Shoulder Skin/Wound: No ecchymosis, No erythema, No swelling SHOULDER: Right Shoulder Skin/Wound: No ecchymosis, No erythema, No swelling Testing: Positive Hawkin's, Speed's, TTP Biceps (mild), AROM-Forward Elevation 0-180, AROM-External Rotation at 90 0-60, AROM-External Rotation at side 0-60 (40), PROM-Forward Elevation 0-180 and IR @ 90 0-70 SHOULDER: Good strength 4/5 with resisted ER with pain. Normal light touch. Radial pulse 2/4 b/l decreased biceps and brachioradialis reflex. Left Shoulder Date of injury: 07/18/18 Skin/Wound: No ecchymosis, No erythema, No swelling SHOULDER: 4/5 forward flexion 4/5 abduction 4/5 external rotation decreased rOM Supplemental Info 07/19/2018 MRI right shoulder: Massive supraspinatus infraspinatus rotator cuff tear with retraction rotator cuff tendinosis with muscle belly atrophy, tearing of biceps tendon long Assessment & Plan Problems 1. Complete tear of right rotator cuff, unspecified whether traumatic M75.121 2. 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 Tear of right biceps muscle, subsequent encounter S46.211D 4. Injury of left rotator cuff, initial encounter S46.002A Plan Patient educated that he has a large full thickness tear of his right rotator cuff this is likely chronic as he did not have any acute injury there is atrophy of muscle belly and degenerative changes of tendon and he has excellent strength in the right shoulder which demonstrates compensation leading us to believe that this is been torn for quite some time. He has however failed conservative therapy and wishes to undergo surgical intervention. Risks benefits and alternatives to surgery were reviewed including risk of inability to repair secondary to chronicity of tear continued pain. options are an arthroscopy vs an open surgery to try to repair the RTC, and biceps tenotomy and subacromial decompression as there is anterior acromial spurring. . Educated that he also has spurring under his cuff which may have caused the tear. He also has a biceps tear. Educated that we will remove the spurring. Denies any infections. Denies any use of blood thinners, denies any heart problems. Reviewed the pre-operative plans with the patient. Risks and benefits of the procedure were fully explained, including but not limited to infection, neurovascular injury, continued pain, arthritis, stiffness, need for further surgery, re-injury, DVT, PE, general risks of anesthesia, and loss of limb or life. The patient understands all the risks and does wish to proceed with written consent. Patients surgery has been scheduled for 07/31/18. Since patient has popping of left shoulder and his unable to lift the arm, and has weakness after injury we will order MRI for left shoulder this day. Also educated that some of his pain may be coming from his neck because he has foraminal stenosis. Follow up 2 weeks post op or sooner if pain, swelling, numbness or associated symptoms, or concerns develop. All questions answered. Patient in agreement of plan. Orders Orders: Upper Ext Joint Only(Routine) Today S46.912A Coding Level of Care Code Off vis,est,level 4 Diagnoses Complete tear of right rotator cuff, unspecified whether traumatic M75.121 ??Laterality: right ??Rotator cuff tear trauma status: unspecified whether traumatic Foraminal stenosis of cervical region M99.81 Tear of right biceps muscle, subsequent encounter S46.211D ??Encounter type: subsequent encounter Injury of left rotator cuff, initial encounter S46.002A ??Encounter type: initial encounter 07/23/18 0481 <Electronically signed by Davis Hagan DO> Date Davis Hagan DO
--- NOTE | 2018-07-31 09:38 | HP_ITS ---
I have re-examined the patient. There are no clinical changes since date of exam. Intake Intake Visit Reasons: RIGHT SHOULDER Allergies codeine Allergy (Verified 06/04/18 08:09) Hives gabapentin [From Neurontin] Allergy (Verified 06/04/18 08:09) Hives Sulfa (Sulfonamide Antibiotics) Allergy (Verified 06/04/18 08:09) Rash Medications Duloxetine Hcl [Cymbalta] 60 mg PO DAILY 04/20/16 [History Confirmed 06/04/18] Irbesartan [Avapro] 150 mg PO DAILY 04/20/16 [History Confirmed 06/04/18] Levocetirizine Dihydrochloride [Xyzal] 5 mg PO DAILY 04/20/16 [History Confirmed 06/04/18] Pantoprazole Sodium [Protonix] 40 mg PO DAILY 04/20/16 [History Confirmed 06/04/18] cholecalciferol (vitamin D3) 1,000 unit capsule 1,000 unit PO ONCE 03/29/17 [History Confirmed 06/04/18] aspirin 81 mg tablet,delayed release 81 mg PO DAILY 06/04/18 [History Confirmed 06/04/18] meloxicam 15 mg tablet 15 mg PO DAILY #30 tab 06/04/18 [Rx Confirmed 06/04/18] PFSH Medical History Diabetes (Acute) Hay fever (Acute) Seizures (Acute) HTN (hypertension) (Chronic) Social History Smoking Status: Never smoker alcohol intake: current alcohol intake frequency: holidays/special occasions only Alcohol type: wine HPI RIGHT SHOULDER: Surgical H&P: Yes Details: Parts of this documentation were recorded by a scribe, this documentation accurately reflects the service provided and the decisions made by me, Shana Alegria, DO 07/31/18 6601. WILLA MORROW is a 57 year old M here today for right shoulder today. Here to disscus surgery with Dr. Haines surgery was moved. Denies any changes with pain or mobility. Patient has had MRI of the right shoulder that showed a full thickness tear of RTC. Denies numbness, tingling or other associated symptoms. Had MRI completed of left shoulder this morning and results are in chart. ROS Const Reports system reviewed and no additional complaints, except as docu Eyes Reports system reviewed and no additional complaints, except as docu ENT Reports system reviewed and no additional complaints, except as docu Card Reports system reviewed and no additional complaints, except as docu Resp Reports system reviewed and no additional complaints, except as docu GI Reports system reviewed and no additional complaints, except as docu Reports system reviewed and no additional complaints, except as docu Musc Reports as per HPI Skin/Breast Reports system reviewed and no additional complaints, except as docu Neuro Yes system reviewed and no additional complaints, except as docu Psych Reports system reviewed and no additional complaints, except as docu Endo Reports system reviewed and no additional complaints, except as docu Du/Lymph Reports system reviewed and no additional complaints, except as docu Aller/Immun Reports system reviewed and no additional complaints, except as docu Ortho Exam Right Shoulder Testing: Positive AROM-Forward Elevation 0-180 and empty can SHOULDER: bilat ER weakness, ttp tricep, Left Shoulder Testing: Yes AROM-Forward Elevation 0-180, Yes empty can Internal Rotation: Hip Assessment & Plan Problems 1. Complete tear of right rotator cuff, unspecified whether traumatic M75.121 2. Complete tear of left rotator cuff, unspecified whether traumatic M75.122 Plan Personally reviewed the recent MRI and explained that in order to repair the massive tear he needs and SCR. Explained the surgical procedure, the risk of re-tear or the need for RTSA. He also has RTC of the left shoulder. The concerns are stiffness of the right shoulder when he has great rom today, and he may not get full rom after and continue to have weakness. He alternative treatment option is a debridement and use steroid for pain control to allow him to keep his rom. Patient elects to have surgery with scr if indicated, PT 6wks after surgery and he can return to light duty in 3wks post op Reviewed the pre-operative plans with the patient. Risks and benefits of the procedure were fully explained, including but not limited to infection, neurovascular injury, continued pain, arthritis, stiffness, need for further surgery, re-injury, DVT, PE, general risks of anesthesia, and loss of limb or life. The patient understands all the risks and does wish to proceed with written consent. Follow up post op or sooner if pain, swelling, numbness or associated symptoms, or concerns develop. All questions answered. Patient in agreement of plan. Coding Level of Care Code Off vis,est,level 4 Diagnoses Complete tear of right rotator cuff, unspecified whether traumatic M75.121 ??Laterality: right ??Rotator cuff tear extent: complete ??Rotator cuff tear trauma status: unspecified whether traumatic Complete tear of left rotator cuff, unspecified whether traumatic M75.122 ??Rotator cuff tear extent: complete ??Rotator cuff tear trauma status: unspecified whether traumatic 07/31/18 1148 <Electronically signed by Shana Alegria DO> Date Shana Alegria DO
[2018-08-05 17:09] LABS: Hematocrit 41.2 % (40-54); Hemoglobin 13.2 g/dl (13.0-16.5); Mean Corpuscular Volume 87.5 fL (80-94); Mean Platelet Vol. 10.3 fl (6.2-12.0); Platelet Count 219 K/mm3 (150-450); RBC Distribution Width SD 47.8 fl (35.1-43.9); Red Blood Count 4.71 M/mm3 (4.6-6.2); Scan Indicated on CBC? Y/N NO; White Blood Count 7.6 K/mm3 (4.4-11.0)
[2018-08-05 17:30] LABS: Anion Gap 8 (5-15); BUN 16 mg/dL (7-18); BUN/Creat Ratio 16.7 RATIO (10-20); Calcium,Total 8.6 mg/dL (8.5-10.1); Chloride 105 mmol/L (98-107); Creatinine, Serum 0.96 mg/dL (0.70-1.30); EST Glomerular Filtration Rate 85 mL/min (>60); Est Glom Filt Rate - Afr Amer 103 mL/min (>60); Glucose 107 mg/dL (74-106); Potassium 3.9 mmol/L (3.5-5.1); Sodium Level 143 mmol/L (136-145)
[2018-08-05 17:33] LABS: Hemoglobin A1c 5.7 % (4.2-6.3)
[2018-08-08] VITALS (9 sets, daily range): BP systolic 106–147; BP diastolic 67–106; PULSE 68–85; RESP 16–20; TEMP 36–36.6; O2SAT 93–100; BMI 46.3
[2018-08-08] MEDS: Cefazolin 2 GM in 0.9% Normal Saline 100 ML IV (07:30)
--- NOTE | 2018-08-08 07:30 | TESH_PTH ---
PATIENT: WILLA MORROW Jr. LOC: [facility] [place][id number] AGE/SX: 57/M ROOM: RE08/08/[address]: Dr. Shana Alegria DO : 1960 BED: DIS: 08/08/2018 SPEC #: [id number] RECD: 08/08/18 12:55 STATUS: TEJINDER REPramod #: [id number] SILAS: 08/08/18 07:[address]: Shana Alegria DEPT: SURGICAL PATHOLOGY RECD BY: Jose Rajan ENTERED: 08/08/18 13:22 SP TYPE: TENDON OTHR DR: Dr. Cari Portillo, DO Tissues: Tendon and tendon sheath, NOS Procedures: Surgery Specimen Level III HEADER OPERATION: Arthroscopy, shoulder, rotator cuff repair, open biceps PRE-OP DIAGNOSIS: Complete tear of right rotator cuff TISSUE SUBMITTED: Biceps tendon MICROSCOPIC DIAGNOSIS Biceps tendon, excision: Degenerative and reparative change. AM:xochitl 08/11/18 COMMENT The findings are consistent with tendinous tear. Clinical correlation is suggested. MICROSCOPIC DESCRIPTION Slides are reviewed. GROSS DESCRIPTION Received in fixative is one container labeled with the patient's name and designated biceps tendon. The specimen consists of pink-white tendinous tissue measuring 5.5 x 1 x 0.3 cm. The specimen is sectioned and totally submitted in one cassette. / AM:xochitl 08/08/18 TC:5 CPT: 35351
--- NOTE | 2018-08-08 07:36 | DCINST_ITS ---
Discharge Diet: No Restrictions - remove dressings pod 4 and apply bandaids to incision sites, call with concerns, follow up in 2 weeks, sling at all times unless in shower, no active motion of shoulder or elbow Discharge Activity: May Not Drive May shower in (days): 1 Ice area for (Minutes): 20 - Every hour while awake. Weight Bearing Status: Weight bearing as tolerated Keep extremity elevated above heart level: Operative Extremity Call your doctor if your incision/area has: Continuous Slow Oozing, Sudden Increased Bleeding, Increased Pain/ Swelling, Increased Redness, Foul Smelling Discharge Call your doctor if you observe: Fever of 101 or Higher, Coldness, Increased Pain, Numbness or Tingling, Change in Color, Calf discomfort Allergies/Adverse Reactions: Allergies codeine Allergy (Verified 08/05/18 13:27) Hives gabapentin [From Neurontin] Allergy (Verified 08/05/18 13:27) Hives Sulfa (Sulfonamide Antibiotics) Allergy (Verified 08/05/18 13:27) Rash BAND AID Allergy (Uncoded 08/05/18 13:34) Rash Medications to take at Discharge Duloxetine Hcl [Cymbalta] 60 mg PO DAILY 04/20/16 Levocetirizine Dihydrochloride [Xyzal] 5 mg PO DAILY 04/20/16 Pantoprazole Sodium [Protonix] 40 mg PO DAILY 04/20/16 cholecalciferol (vitamin D3) 1,000 unit capsule 2,000 unit PO DAILY 03/29/17 aspirin 81 mg tablet,delayed release 81 mg PO DAILY 06/04/18 meloxicam 15 mg tablet 15 mg PO DAILY #30 tab 06/04/18 Diphenhydramine HCl [Simply Sleep] 50 mg PO QHS 08/05/18 Losartan Potassium [Cozaar] 50 mg PO DAILY 08/05/18 Hydrocodone Bitart/Apap 5-325 [[place] 5MG-325MG] 1 - 2 tablet PO Q6H PRN PRN 5 Days #40 tablet 08/08/18 Zolpidem Tartrate [Ambien (Generic)] 5 mg PO QHS PRN PRN #14 tablet 08/08/18 The following prescriptions were given: Hydrocodone Bitart/Apap 5-325 [[place] 5MG-325MG] 1 - 2 tablet PO Q6H PRN PRN 5 Days #40 tablet PRN Reason: Pain Zolpidem Tartrate [Ambien (Generic)] 5 mg PO QHS PRN PRN #14 tablet PRN Reason: Insomnia Orders to be completed after discharge: Hemoglobin A1c Time Frame: 08/05/18, Location: Laboratory Basic Metabolic Profile (BMP) Time Frame: 08/05/18, Location: Laboratory CBC-Complete Blood Cnt No Diff Time Frame: 08/05/18, Location: Laboratory Primary Care Physician: Cari Portillo DO [Primary Care Provider] - Test Results: Test results from this visit will be discussed in further detail at your follow- up appointment, if applicable. Please Follow Up With: Shana Alegria DO - [phone]
--- NOTE | 2018-08-08 07:36 | OP.PCM_ITS ---
Report of Operation Date of Procedure: 08/08/18 Pre-Operative Diagnosis: right shoulder rotator cuff tear, subacromial imp ingment/bursitis, Post-Operative Diagnosis: same Surgery/Procedure Performed:: right shoulder arthroscopy, rotator cuff repair subacromial decompression/acromioplasty, open subpec biceps tenodesis Type of Anesthesia:: General Anesthesiologist: Huy Delaney Specimen's removed: biceps tendon Estimated Blood Loss (mL): 25cc Fluids Replaced: 1250cc lr Description of Procedure: Preop note Patient is a 57-year-old male continued right shoulder pain inability to elevate arm above head without continued pain weakness and external rotation. MRI confirms impingement as well as retracted massive rotator cuff tear and some biceps tendinosis. Risks benefits and alternatives surgery discussed with patient. Risks including but not limited to blood loss, blood clot, infection, neurovascular, failure procedure, loss of life loss of limb need for revision surgery. Patient is aware like proceed with right shoulder arthroscopy repair is indicated. Operative note Patient seen and examined preoperative holding area. Right shoulder was marked. Patient brought to the operating placed supine the operating table. Signing, anesthesia, antibiotics were administered. The right arm was prepped and draped usual sterile fashion beachchair positioning [facility] through beachchair positioning we did recheck his blood pressure which was stable throughout. We then marked out our bony limits for portal placement. We insufflated the glenohumeral joint from the posterior aspect. Timeout was performed. We then began our diagnostic arthroscopy. We used 11 blade to create our posterior portal. Able to visualize the glenohumeral joint which was intact and there was some synovitis throughout the shoulder. He had no loose bodies in the inferior recess we then created an anterior portal under direct visualization. The subscap was intact. The biceps anchor was stable and had a SLAP lesion in the biceps where it attached proximally there is a labral tear that also extended onto the inferior distalmost aspect of the labrum which was unstable. We then resected the biceps at its insertion and then debrided back to insertion for to decrease any impingement. We able to visualize the rotator cuff tear at this point we then moved to the subacromial space medial lateral portal under direct visualization performed an extensive bursectomy was just an acromioplasty with accommodation of a bur shaver and a an ablator wand. We then debrided the footprint for our rotator cuff repair we used an Arthrex speed bridge system. Please note that we then did a release circumferentially around the rotator cuff to ensure that we had good movement of the rotator cuff it was a crescent style tear that was able to be moved a little bit posterior to anterior and then lateralized. We then placed our to speed bridge anchors medially. We then placed and cut to the speed bridge to be placed actually 4 sutures from the anterior anchor and 4 sutures from the posterior anchor through the cuff using 1 of the sutures at one point for a traction device in order to get better grasp of our tendon for repair. We then actually tied the FiberWire that were in the anterior and posterior suture anchors and then used the tape and placed this down for our lateral row. Please note that we did not cut the FiberWire sutures from the anterior and posterior anchors to use those incorporate those into our lateral is aware well. We had great for footprint coverage at this point. We irrigated the shoulder with copious amounts of sterile saline. The moved to our open biceps tenodesis. We met about a 2-1/2 cm incision just distal to the insertion of the pec. Dissect down tenotomies the level of the biceps sheath which was excised the biceps was then brought out of the joint. We then measured appropriate length and cut the biceps and sent to pathology for further evaluation. We then able to visualize the area that on the humerus for our pec button. We used a ablator burner to burn any periosteum we then drilled unicortical he and placed our and then whipstitched the end of the remaining biceps tendon placed this through the pec button this pec button that was then inserted and unicortical he flipped inside the humeral shaft and then we did oversew with a free needle of the tendon down to the periosteum as well. The incision was irrigated with copious muscle sterile saline. It was closed with Vicryl and running 4-0 Monocryl and the portals for our rotator cuff repair as well as our working portals were closed with interrupted nylon stitches. Sterile dressings were applied. Patient tolerated procedure well no comp occasions transferred to recovery room in stable condition. Postoperative Nonweightbearing right upper extremity May use hand as much as tolerated not active no active flexion of the elbow or shoulder Sling at all times (shower Pictures given to Follow-up in 2 weeks Hospital has prescriptions This note was generated with [employer] dictation software. It may contain incorrect words, spelling, and punctuation that were not noted in checking the note before signing. Grafts/Implants Used: Arthrex speed bridge, pec button Arthrex
[2018-08-08] MEDS: Epinephrine (1 mg/ml) 1 MG/ML VIAL (10:00)
[2018-08-08] MEDS: Bupiv/Epi 0.25% 30 ML Vial (10:14)
[2018-08-08] MEDS: Mupirocin Ointment 22gm Tube 1 APPLIC (10:14)
[2018-08-08] MEDS: HYDROcodone Bitartrate/Apap 5/325 Tablet PO (11:26)
== END 2018-08-08 12:50 | disposition home or self-care (01) ==
LOC: SDC 05:31 → AC 05:33
PROVIDERS: Family Provider Internal Medicine; PCP Internal Medicine; Referring Provider Orthopaedic Surgery; Visit Provider Orthopaedic Surgery
PROC: (CPT 29827; principal; 2018-08-08 07:10)
DX: M75.121 Complete rotator cuff tear or rupture of right shoulder, not specified as traumatic (principal); I10 Essential (primary) hypertension; E11.9 Type 2 diabetes mellitus without complications; R56.9 Unspecified convulsions; M75.51 Bursitis of right shoulder; M25.811 Other specified joint disorders, right shoulder; M75.122 Complete rotator cuff tear or rupture of left shoulder, not specified as traumatic; S43.431A Superior glenoid labrum lesion of right shoulder, initial encounter; X58.XXXA Exposure to other specified factors, initial encounter; K21.9 Gastro-esophageal reflux disease without esophagitis; F32.9 Major depressive disorder, single episode, unspecified; Z79.899 Other long term (current) drug therapy; Z79.82 Long term (current) use of aspirin; G47.30 Sleep apnea, unspecified; J45.909 Unspecified asthma, uncomplicated
CPT/HCPCS: 23430; 29826; 29827; 36415; 80048; 83036; 85027; 88304; J7120; J2405

== ENCOUNTER → 2018-08-22 | Outpatient (CLI) | payer OTHER, SELFPAY ==
[2018-08-21 09:54] VITALS: BMI 46.3
[2018-08-22 10:09] VITALS: BMI 46.3
--- NOTE | 2018-08-22 10:21 | VDUE_ITS ---
Reason For Study: Swelling Right Proximal Right jugular vein is spontaneous, widely patent, phasic, with no intraluminal echogenicity noted. Right subclavian vein is spontaneous, widely patent, phasic, with no intraluminal echogenicity noted. Right Lower Arm Right radial vein is compressible. Right ulnar vein is compressible. Right Arm Right axillary vein is spontaneous, patent, phasic, competent, compressible and demonstrates augmentation. Right brachial vein is compressible. Right cephalic vein is compressible. Right basilic vein is compressible. Large hematoma noted in the right bicep area. Patient Safety Prelim to [employer]. Interpretation Summary No evidence for acute deep venous thrombosis[right] upper extremity with patent and compressible cephalic and basilic veins. Complex solid/cystic lesion right biceps area--clinical correlation required. Ordering Physician: Shana Alegria Referring Physician: Cari Portillo M.D. Performed By: Myrna Rosa RVT ?
== END | disposition home or self-care (01) ==
LOC: CVS 10:20
PROVIDERS: Family Provider Internal Medicine; PCP Internal Medicine; Referring Provider Orthopaedic Surgery; Visit Provider Orthopaedic Surgery
DX: M79.89 Other specified soft tissue disorders (principal)
CPT/HCPCS: 93971

== ENCOUNTER 2018-10-22 05:56 | Day surgery (SDC) | payer OTHER, SELFPAY ==
[2018-09-23 08:10] VITALS: BMI 46.3
--- NOTE | 2018-09-23 10:32 | HP_ITS ---
I have re-examined the patient. There are no clinical changes since date of exam.Intake Vital Signs 09/23/18 Body Mass Index (BMI) 46.3 Intake Visit Reasons: R. SHOULDER Chief Complaint: f/u right shoulder MRI. Left shoulder new problem Allergies codeine Allergy (Verified 08/05/18 13:27) Hives gabapentin [From Neurontin] Allergy (Verified 08/05/18 13:27) Hives Sulfa (Sulfonamide Antibiotics) Allergy (Verified 08/05/18 13:27) Rash BAND AID Allergy (Uncoded 08/05/18 13:34) Rash [facility] Medical History (Updated 08/08/18 @ 10:06 by Shana Alegria DO) Diabetes (Acute) Hay fever (Acute) Seizures (Acute) HTN (hypertension) (Chronic) Social History (Updated 09/23/18 @ 10:36 by Shana Alegria DO) Smoking Status: Never smoker alcohol intake: current alcohol intake frequency: holidays/special occasions only Alcohol type: wine HPI R. SHOULDER : Surgical H&P: Yes Details: Parts of this documentation were recorded by a scribe, this documentation accurately reflects the service provided and the decisions made by me, Shana Alegria DO 09/23/18 0808. ED CRISTHIAN is a 58 year old M here today for 6 week F/U right shoulder arthroscopy, rotator cuff repair subacromial decompression/acromioplasty, open subpec biceps tenodesis. Patient no longer has a hematoma over his biceips. Patient is is abduction sling this day. Denies numbness, tingling or other associated symptoms. Has had improvement since surgery. Has been in PT for PROM but has not preformed any AROM at this point. Denies any concerns. pt also c/o left shoudler pain, weakness, and difficulty with adls. had mri that showed rc tear and is interested in discussing further. ROS Const Reports system reviewed and no additional complaints, except as docu Eyes Reports system reviewed and no additional complaints, except as docu ENT Reports system reviewed and no additional complaints, except as docu Card Reports system reviewed and no additional complaints, except as docu Resp Reports system reviewed and no additional complaints, except as docu GI Reports system reviewed and no additional complaints, except as docu Reports system reviewed and no additional complaints, except as docu Musc Reports as per HPI Skin/Breast Reports system reviewed and no additional complaints, except as docu Neuro Yes system reviewed and no additional complaints, except as docu Psych Reports system reviewed and no additional complaints, except as docu Endo Reports system reviewed and no additional complaints, except as docu Du/Lymph Reports system reviewed and no additional complaints, except as docu Aller/Immun Reports system reviewed and no additional complaints, except as docu Ortho Exam Right Shoulder Date of Surgery: 08/08/18 Skin/Wound: Yes healed Left Shoulder Testing: Yes Hawkin's, Yes Neer's, Yes Speed's, Yes TTP Biceps, Yes Drop Arm, Yes Yergason's Assessment & Plan Problems 1. Orthopedic aftercare Z47.89 Plan Instructed to discontinue the sling, continue to progress in PT and work on rom at home. Reviewed the pre-operative plans with the patient. Risks and benefits of the procedure were fully explained, including but not limited to infection, neurovascular injury, continued pain, arthritis, stiffness, need for further surgery, re-injury, DVT, PE, general risks of anesthesia, and loss of limb or life. The patient understands all the risks and does wish to proceed with written consent. Follow up in 6wks for the right and two weeks post op on the left or sooner if pain, swelling, numbness or associated symptoms, or concerns develop. All questions answered. Patient in agreement of plan. Coding Level of Care Code Off vis,est,level 4 Diagnoses Orthopedic aftercare Z47.89 09/23/18 1036 <Electronically signed by Shana farah DO> Date _ Shana Alegria DO
[2018-10-22] VITALS (7 sets, daily range): BP systolic 145–163; BP diastolic 81–113; PULSE 66–92; RESP 16–18; TEMP 36.3–36.8; O2SAT 94–100; BMI 43.0
--- NOTE | 2018-10-22 01:30 | TESH_PTH ---
PATIENT: WILLA MORROW Jr. LOC: [facility] U#:[id number] AGE/SX: 58/M ROOM: RE10/22/[address]: Dr. Shana Alegria DO : 1960 BED: DIS: 10/22/2018 SPEC #: [id number] RECD: 10/22/18 11:26 STATUS: TEJINDER ANJELICA #: [id number] SILAS: 10/22/18 01:[address]: Shana Alegria DEPT: SURGICAL PATHOLOGY RECD BY: Josey Slaughter ENTERED: 10/22/18 14:05 SP TYPE: TENDON OTHR DR: Dr. Cari Portillo, Tissues: Tendon and tendon sheath, NOS Procedures: Surgery Specimen Level III HEADER OPERATION: Arthroscopy, rotator cuff repair, subacromial PRE-OP DIAGNOSIS: Left shoulder rotator cuff tear, subacromial impingement syndrome, biceps tendinosis TISSUE SUBMITTED: Left bicep tendon MICROSCOPIC DIAGNOSIS Left biceps tendon, excision: Fragment of tendon with degenerative and reparative change. SAURAV:randolph 10/23/18 COMMENT The findings ae consistent with rotator cuff tear. Clinical correlation is suggested. MICROSCOPIC DESCRIPTION Slides are reviewed. GROSS DESCRIPTION Received in fixative is one container labeled with the patient's name and designated left biceps tendon. The specimen consists of a piece of tendinous tissue measuring 6.5 x 0.7 x 0.2 cm. The entire specimen is submitted in one cassette. /SJ:sp 10/22/18 TC: 5 CPT: 08335
[2018-10-22] MEDS: Lactated Ringers 1,000 ML 100 ML IV ×2 (06:42→08:00)
[2018-10-22] MEDS: Cefazolin 2 GM in 0.9% Normal Saline 100 ML IV (07:23)
--- NOTE | 2018-10-22 07:34 | DCINST_ITS ---
Discharge Diet: No Restrictions - call for appointment on saturday with claudiocecil londono for dressing change and brace adjustment, sling at all times unless showering or seated, call with concerns, may get incision wet after 5 days Discharge Activity: May Not Drive May shower in (days): 1 Ice area for (Minutes): 20 - Every hour while awake. Weight Bearing Status: Weight bearing as tolerated Keep extremity elevated above heart level: Operative Extremity Call your doctor if your incision/area has: Continuous Slow Oozing, Sudden Increased Bleeding, Increased Pain/ Swelling, Increased Redness, Foul Smelling Discharge Call your doctor if you observe: Fever of 101 or Higher, Coldness, Increased Pain, Numbness or Tingling, Change in Color, Calf discomfort Allergies/Adverse Reactions: Allergies codeine Allergy (Verified 10/15/18 13:07) Hives gabapentin [From Neurontin] Allergy (Verified 10/15/18 13:07) Hives Sulfa (Sulfonamide Antibiotics) Allergy (Verified 10/15/18 13:07) Rash BAND AID Allergy (Uncoded 10/15/18 13:07) Rash Medications to take at Discharge Duloxetine Hcl [Cymbalta] 60 mg PO DAILY 04/20/16 Levocetirizine Dihydrochloride [Xyzal] 5 mg PO DAILY 04/20/16 Pantoprazole Sodium [Protonix] 40 mg PO DAILY 04/20/16 cholecalciferol (vitamin D3) 1,000 unit capsule 2,000 unit PO DAILY 03/29/17 aspirin 81 mg tablet,delayed release 81 mg PO DAILY 06/04/18 meloxicam 15 mg tablet 15 mg PO DAILY #30 tab 06/04/18 Diphenhydramine HCl [Simply Sleep] 50 mg PO QHS 08/05/18 Losartan Potassium [Cozaar] 50 mg PO DAILY 08/05/18 Zolpidem Tartrate [Ambien (Generic)] 5 mg PO QHS PRN PRN #14 tablet 08/08/18 Oxycodone HCl/Acetaminophen [Percocet 5/325] 1 - 2 tablet PO Q6H PRN PRN 5 Days #28 tablet 10/22/18 The following prescriptions were given: Oxycodone HCl/Acetaminophen [Percocet 5/325] 1 - 2 tablet PO Q6H PRN PRN 5 Days #28 tablet PRN Reason: Pain Transmission Status: Sent to [facility] Primary Care Physician: Cari Portillo DO [Primary Care Provider] - Test Results: Test results from this visit will be discussed in further detail at your follow- up appointment, if applicable. Please Follow Up With: Shana Alegria DO - [phone]
--- NOTE | 2018-10-22 07:35 | PCM.OPRPT ---
Report of Operation Date of Procedure: 10/22/18 Pre-Operative Diagnosis: left shoulder rotator cuff tear, subacromial impingment syndrome, biceps tendinosis, Post-Operative Diagnosis: same Surgery/Procedure Performed:: sals, rotator cuff repair, subacromial decompression, open biceps subpec tenodesis programming equipment operator: Rob Rosario Type of Anesthesia:: General Anesthesiologist: Damon Tapia Estimated Blood Loss (mL): none Fluids Replaced: 1300cc lr Description of Procedure: Preop note Patient is a 4-year-old male who has had continued left shoulder pain and weakness for quite some time. Patient failed conservative treatment pain and weakness worsen MRI confirmed a retracted rotator cuff tear with mild atrophy. Risk benefits and alternatives were discussed with patient. Patient also had a biceps tendinosis. Please note. Risk benefits alternatives discussed with patient. Risks include but not limited to blood loss, blood clot, infection, neurovascular, failure procedure, loss of life and loss of limb. Patient is aware like proceed with left shoulder arthroscopy repair as indicated. Operative note Patient seen and examined preop holding her. Left arm was marked. Patient brought to the operating room placed supine on the operating table. Sign, anesthesia, antibiotics were supervisor cigar making machine. The patient was prepped and draped usual sterile fashion beachchair positioning all bony promises well-padded SCDs placed on his bilateral lower externally. Please note the senior living through beachchair position we did recheck his blood pressure which is stable throughout. We then again prepped and draped the left shoulder marked out a bony landmarks insufflated the joint from the posterior portal and got good return. Timeout was performed. We then used an 11 blade to create a posterior portal and begin a diagnostic arthroscopy. There was some thinning of the cartilage of the glenohumeral joint was intact. There are no loose bodies in the inferior recess. The subscap which had a split tear but there is not torn off of the its insertion. The biceps was torn. We then created an anterior portal under direct visualization. Resected the rest of the biceps tendon. We were able to visualize a retracted rotator cuff tear. We then moved the scope into the subacromial space. Performed an extensive bursectomy and acromioplasty. We then freed up the rotator cuff a combination of an elevator and a shaver. We then able to visualize it was a reverse L configuration. This is then we then placed into by a composite Arthrex anchors in the medial row we then placed sutures posterior then anterior and a marginal convergence cotton fashion bringing the posterior more anterior and then trying to do a tension-free anterior to the lateral repair. We placed all 4 suture limbs through it we had good reduction of the footprint at that time we then oversewed with a then to tie the knot of the duct and loop with a sliding knot. We then placed 2 swivel locks laterally for our lateral row and then was further reduce the tendon to the footprint. Please note the prior to placing our anchors we did use a burner to debride the soft tissue off of the footprint and then used a bur to create a bleeding bed. Please note we had a good repair of the rotator cuff in its entirety of its footprint. We then irrigated the shoulder with copious nonsterile saline and moved to open subpectoral tenodesis. We resterilized the area where the allotted time and then made about a 2-1/2 to 3 cm incision just distal to the insertion of the pack. We dissect down tenotomies to level of the biceps bisects was then the fascia this sheath was excised and biceps brought on the incision. We then cut the appropriate length sent to pathology for further evaluation and then whipstitched into the biceps tendon we then drilled unicortical he flipped our we had whipstitched the biceps and then placed in a cortically into the humeral shaft. We then oversewed the biceps to the humerus with a free needle. We had a good length maintain that we had good head of the arm the elbow in extension during fixation of the biceps proximally. We then irrigated the incision with copious muscle sterile saline. The portals were closed with interrupted 4-0 nylon and the incision was closed with deep 2-0 Vicryl and running 4 Monocryl. Sterile dressings were applied. Brace sling was applied. Patient tied procedure well no comp case transferred recovery room in stable condition. Proper note Nonweightbearing left arm Hospital pharmacy has prescriptions Patient will be given in 2 weeks to family next Follow-up in 5 days for met weight for brace adjustment and dressing changes Call with increased pain numbness tingling further issues arise This note was generated with [employer] dictation software. It may contain incorrect words, spelling, and punctuation that were not noted in checking the note before signing.
[2018-10-22] MEDS: Bupiv/Epi 0.25% 30 ML Vial (10:33)
[2018-10-22] MEDS: Mupirocin Ointment 22gm Tube 1 APPLIC (10:34)
[2018-10-22] MEDS: HYDROcodone Bitartrate/Apap 5/325 Tablet PO (12:52)
== END 2018-10-22 13:26 | disposition home or self-care (01) ==
LOC: SDC 05:56 → AC 05:57
PROVIDERS: Family Provider Internal Medicine; PCP Internal Medicine; Referring Provider Orthopaedic Surgery; Visit Provider Orthopaedic Surgery
PROC: (CPT 29827; principal; 2018-10-22 07:10)
DX: M75.122 Complete rotator cuff tear or rupture of left shoulder, not specified as traumatic (principal); E11.9 Type 2 diabetes mellitus without complications; I10 Essential (primary) hypertension; Z79.899 Other long term (current) drug therapy; Z79.82 Long term (current) use of aspirin; J45.909 Unspecified asthma, uncomplicated; K44.9 Diaphragmatic hernia without obstruction or gangrene; K21.9 Gastro-esophageal reflux disease without esophagitis; F32.9 Major depressive disorder, single episode, unspecified
CPT/HCPCS: 23430; 29826; 29827; 88304; J7120; C1713; J2405

== ENCOUNTER → 2018-11-06 06:41 | Outpatient (CLI) | payer OTHER, SELFPAY ==
[2018-10-28 09:58] VITALS: BMI 43.0
[2018-11-06 07:43] LABS: Absolute Lymphocyte Count 1.89 X10^3/uL (0.83-4.51); Absolute Neutrophil Count 4.3 X10^3/uL (2.0-7.7); Basophil# 0.02 X10^3/uL; Basophil% 0.3 % (0-1); Eosinophil# 0.26 X10^3/uL; Eosinophils% 3.7 % (0-5); Hematocrit 44.2 % (40-54); Hemoglobin 13.5 g/dL (13.0-16.5); Lymphocyte # 1.89 X10^3/ul (4.0); Lymphocyte % 26.7 % (19-41); Mean Corp Hgb Conc 30.5 g/dL (32-36); Mean Corpuscular Hgb 26.8 pg (27.0-32.0); Mean Corpuscular Volume 87.7 fL (80-94); Monocyte# 0.55 X10^3/uL; Monocyte% 7.8 % (0-10); NRBC Flagged by Analyzer 0 % (0-5); Neutrophil # 4.31 X10^3/uL (2.7-7.7); Neutrophil % 60.9 % (47-70); Platelet Count 260 K/mm3 (150-450); RBC Distribution Width CV 14.1 % (11.6-14.6); RBC Distribution Width SD 44.9 fl (35.1-43.9); Red Blood Count 5.04 M/mm3 (4.6-6.2); White Blood Count 7.1 K/mm3 (4.4-11.0)
[2018-11-06 08:05] LABS: Color, Urine Yellow (Yellow); Glucose, Dipstick Normal (Normal); Ketone-Dipstick Negative (Negative); Leukocyte Esterase-Dipstick Negative /ul (Negative); Nitrite-Dipstick Negative (Negative); Occult Blood-Urine Negative /ul (Negative); Protein-Dipstick Negative (Negative); Urine Bilirubin Dipstick Negative (Negative); Urine Clarity Clear (Clear); Urine Urobilinogen Normal (Normal)
[2018-11-06 08:06] LABS: Microalbumin,Random Urine 7.9 mg/L (NO RANGE EST.)
[2018-11-06 08:10] LABS: ALB/GLOB Ratio 0.9 RATIO (0.9-2.4); AST(SGOT) 15 U/L (15-37); Alanine Aminotransfer ALT/SGPT 25 U/L (16-61); Albumin, Serum 3.6 g/dL (3.2-5.0); Alkaline Phosphatase 73 U/L (45-117); Anion Gap 6 (5-15); BUN 15 mg/dL (7-18); BUN/Creat Ratio 15.6 RATIO (10-20); Calcium,Total 9.1 mg/dL (8.5-10.1); Chloride 106 mmol/L (98-107); Creatinine, Serum 0.96 mg/dL (0.70-1.30); EST Glomerular Filtration Rate 85 mL/min (>60); Est Glom Filt Rate - Afr Amer 103 mL/min (>60); Globulin 4.1 g/dL (2.2-4.2); Glucose 92 mg/dL (74-106); Protein, Total 7.7 g/dL (6.4-8.2); Sodium Level 141 mmol/L (136-145); Thyroid Stim Hormone (TSH) 1.99 uIU/mL (0.358-3.74)
[2018-11-06 08:18] LABS: Bacteria RARE /hpf (None Seen); Mucous, Urine 2+ /hpf (<or=2+); Red Blood Cells-Urine 0-5 SEEN /hpf (0-5); Squamous Epithelial Cells - UA 0-5 SEEN /hpf (0-5); White Blood Cells 0-5 SEEN /hpf (0-5)
[2018-11-08 14:07] LABS: CHOLESTEROL TOTAL 165 mg/dL (100-199); HDL-C 58 mg/dL (>39); HDL-P TOTAL 33.9 umol/L (>=30.5); SMALL LDL-P 269 nmol/L (<=527); TRIGLYCERIDES 86 mg/dL (0-149)
[2018-11-10 10:03] LABS: INSULIN RESISTANCE SCORE 40 (<=45); LDL SIZE 21.1 nm (>20.5); LDL-C 90 mg/dL (0-99); LDL-P 1076 nmol/L (<1000)
== END ==
PROVIDERS: Family Provider Internal Medicine; PCP Internal Medicine; Referring Provider Internal Medicine; Visit Provider Internal Medicine
DX: R73.09 Other abnormal glucose (principal)
CPT/HCPCS: 36415; 80053; 80061; 81001; 82043; 82570; 83036; 83704; 84443; 85025

== ENCOUNTER 2019-01-16 07:30 | Outpatient (RCR) | payer OTHER, SELFPAY ==
[2018-08-21 09:54] VITALS: BMI 46.3
[2018-08-29 07:58] VITALS: BMI 46.3
--- NOTE | 2018-08-29 13:56 | HP.PTEVAL_ITS ---
Patient's Visit Information ED Cristian MORROW Jr. is a 58 year old M referred to Physical Therapy by Shana Alegria DO with a diagnosis of s/p R RCR 08/08/18 Massive. Date of Evaluation: 08/29/18 Physical Therapist: Farrukh Mcleod, DPT, OCS, CSCS - Visit Plan Frequency: 1-2x /Week Duration: 4 Months Plan: 1-2x/week for. PROM R shoulder, and Passive R elbow flexion and elbow ext. Ensure continued helaing and scap wrist.hand movement. Progress to phase 2 AAROM in September if healing well - Subjective Findings: Had R RCR and biceps 08/08/18. Doctor said it was the worst she has seen. Had hematoma in upper L arm and fluid drawn off a weeka go. Was in pain with tingly pain with hematoma. Now is 1/10 over R UE. Will need L one done at some point 10/04. Challenging to sleep in chair. In sling with abd wedge 99% of time. Gets 5 hours per night. Not allowed to do anything with the R UE. Is allowed to let it hang as of today. Neck pain is OK, forearms still hurt a little bit. 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 Will sit at computer and do some things. Hobbies: Mary and is doing that with Passive R UE. - Pain R shoulder Pain Intensity (Out of 10): 1 Pain Intensity Range: 1, 2 - Objective R arm in sling with abd wedge upon arrival, donned and doffed I. C/S aROM 35 ext adn 45 B rotations without pain. wrist AROM and hand WNL B. Elbow ext is full passively but stiff at full ext, passively, flexion is full but slightly painfula t end range.Scaular AROM WFL. R shoulder PROM: abd 100, flexion 89, ext rotation 40, not much pain but limited by slight apin at end range. Bruising apparent upper R arm and dressed properly. Incisions arthroscopic and have healed well with excessive scarring or redness. Pt demonstrates precautions well flexing R elbow with L UE and only moving R shoulder passively. Walks I, trasnfer to and fro sit and supine I. - Goals Goal 1:: ST: Full PROM without excessive pain >1/10 by September 25 Goal Time Frame: 4-6 Weeks Goal 2:: LT: Progress appropriately AROM flexion and elbow flexion/ext and abd ext rotation full to be able to self groom by mid October Goal Time Frame: 8-12 Weeks Goal 3:: ST: sleep through night without waking 7 hours Goal Time Frame: 4-6 Weeks Goal 4:: LT: Pt have plan to be ready to resume fu work at [employer] without increased pain Goal Time Frame: 8-12 Weeks Goal 5:: Pt feel 90% back to normal with activities Goal Time Frame: 12-16 Weeks - Rehabilitation Potential Physical Therapy Diagnosis: R RCR and resulting symptoms and precuation. Also subpec biceps tenodesis Rehabilitation Potential: Good - Anticipated Interventions Patient/Client Instruction: Educate patient on: Condition, Plan of Care For the Purpose of:: To increase ROM, To improve nutrient delivery to tissue Therapeutic Exercise to Include: Passive ROM For the Purpose of:: To decrease pain, To increase ROM Cryotherapy (ice pack, ice massage): Yes For the Purpose of:: To decrease pain, To decrease swelling/inflammation Thank you for the opportunity to evaluate your patient. For Medicare and Medicare HMO plans, please review the plan of care and approve it. It will need to be FAXED BACK to us at [phone] for Medicare purposes. For Medicare only, by signing this I certify the plan of care. Please let me know if there are questions or concerns regarding this plan of care. Physician Signature: Date:
--- NOTE | 2018-11-21 07:44 | HP.PTREVAL ---
Shana Alegria, DO, It has been my pleasure to treat ED R CRISTHIAN Lemus. over the last 11 visits for s/p R RCR 08/08/18 Massive. Please see the progress note below for an update on the physical therapy plan of care! Subjective: L shoulder hurt and swelled up last night out of nowhere. Today not too bad. 10 last night with swelling. Not bad today. RCR 10/22/18. No problems in the last week with R shoulder. Biceps can hurt at times and end range stretches can hurt trasniently. activities are pretty normal but reaching high light switch can still be problematic at work but otherwise R arm is doing fairly well. Dressing adn bathroom are slow. R arm not feeling weak. 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 Sleeping in chair with sling L UE. Objective/Function: 124 AROM flexiona dn abd to start 135 after eccentric wall lowering. 145 PROM flexion/abd. 43 ext rotation today adn L5 IR. All without pain. Strength is 4- er, 4 ir, 4- flexiona and abd, 4+ bi and tricep. Plan Plan: 2 more visits every other week for one month to progress ex, add diagonals and ensure he gets functional AROM back. Fair prognosis to meet goals over next 4 weeks. Quickdash score is effected by new surgery on L UE. Goals Goal 1:: ST: Full PROM without excessive pain >1/10 by September 25 Goal Time Frame: 4-6 Weeks Goal Progress: Goal Met Goal 2:: LT: Progress appropriately AROM flexion and elbow flexion/ext and abd ext rotation full to be able to self groom by mid October Goal Time Frame: 2-4 Weeks Goal Progress: Progressing,a pprop Goal 3:: ST: sleep through night without waking 7 hours Goal Time Frame: 4-6 Weeks Goal Progress: Goal Met, r shoulder Goal 4:: LT: Pt have plan to be ready to resume fu work at [employer] [facility] without increased pain Goal Time Frame: 8-12 Weeks Goal Progress: Goal Met Goal 5:: Pt feel 90% back to normal with activities Goal Time Frame: 2-4 Weeks Goal Progress: 75%, progressing, approp Anticipated Interventions Patient/Client Instruction: Educate patient on: Condition, Plan of Care For the Purpose of:: To increase ROM, To improve nutrient delivery to tissue Therapeutic Exercise to Include: Passive ROM For the Purpose of:: To decrease pain, To increase ROM Cryotherapy (ice pack, ice massage): Yes For the Purpose of:: To decrease pain, To decrease swelling/inflammation Please do not hesitate to contact me at [phone] by phone or if you have questions or concerns regarding this new plan of care! Sincerely, Farrukh Mcleod, DPT, OCS, CSCS
--- NOTE | 2018-11-21 08:19 | HP.PTEVAL2_ITS ---
Patient's Visit Information ED Cristian MORROW Jr. is a 58 year old M referred to Physical Therapy by Shana Alegria DO with a diagnosis of s/p L RCR 10/22/18. Date of Evaluation: 11/21/18 Physical Therapist: Farrukh Mcleod, DPT, OCS, CSCS - Visit Plan Frequency: 1x/Week Duration: 4 Months Plan: weekly x 12-16 weeks to progress HEP through phases of RCR rehab. PROM until about 12/04. AAROM-AROM through 01/14. resistance as appropriate after that. to do PROM daily at home adn will progress patients HEP as tolerated. ice as needed. - Subjective Findings: New script now received for L RCR. R RCR is 3+ months out L shoulder hurt and swelled up last night out of nowhere. Today not too bad. 10 last night with swelling. Taht was unusual as it has been feeling pretty good. Not bad today. RCR 10/22/18. 010 currently. No trouble with incision and No curent ex for it. Sleeping in chair with sling and needs to wear for two more weeks. L tear was worse than right. Working at [employer] but not using L arm. Does take it out of the sling now and then. Is right handed. - Pain L shoulder Intensity: 0 Pain Intensity Range: 0, 10 - Objective Objective: L scapula and biceps and triceps AROM is slow but WNL. PROM L g-h joint is 110 flexion and 90 abd and 18 ext rotation limited by pain and endfeel. Incision are healed well and closed with moderate scar tissue in anterior incision. No signs of excessive redness heat or swelling. Pt has a hard time relaxing tricep muscle during PROM. Dons and doffs sling I and knows preacutions of not using L UE for any activitiy other than ex and using sling for two more weeks but can be out of it at rest and for ex. Walking adn transferring I today to and fro sit and supine. - Goals Goal 1:: ST goals: Full 150 flexion and abd and 50 ext rotation PROM Goal Time Frame: 2-4 Weeks Goal 2:: ST: Sleep through night without sling when allowed by doctor without pain. Goal Time Frame: 2-4 Weeks Goal 3:: LT: Full to 150 elevation adn 50 ext rotation AROM without pain when allowed by doctor Goal Time Frame: 6-8 Weeks Goal 4:: LT: Work safely adn comfortably with both UE without limitations Goal Time Frame: 12-16 Weeks Goal 5:: LT: Pt report 90% improvement in overall fucntional levels and be back to all his normal activities Goal Time Frame: 12-16 Weeks - Rehabilitation Potential Physical Therapy Diagnosis: s/p L RCR Rehabilitation Potential: Good - Anticipated Interventions Patient/Client Instruction: Educate patient on: Condition, Plan of Care For the Purpose of:: To decrease pain, To increase ROM, To improve muscle performance and motor function, To increase tolerance to activity/condition/position, To improve ability of physical actions for home/community/work/leisure Therapeutic Exercise to Include: Strength training, Passive ROM, Active ROM For the Purpose of:: To decrease pain, To increase ROM, To improve muscle performance and motor function, To increase tolerance to activity/condition/position, To improve ability of physical actions for home/community/work/leisure Manual Therapy Techniques to Include: Scar massage, Passive ROM For the Purpose of:: To increase ROM Cryotherapy (ice pack, ice massage): Yes For the Purpose of:: To decrease pain, To decrease swelling/inflammation Thank you for the opportunity to evaluate your patient. For Medicare and Medicare HMO plans, please review the plan of care and approve it. It will need to be FAXED BACK to us at [phone] for Medicare purposes. For Medicare only, by signing this I certify the plan of care. Please let me know if there are questions or concerns regarding this plan of care. Physician Signature: Dat e:
--- NOTE | 2018-12-26 07:22 | HP.PTDCSUM ---
HP - PT D/C Summary It has been my pleasure to treat ED R CRISTHIAN Gilman under orders from Shana Alegria DO, for the diagnosis of s/p R RCR 08/08/18 [facility] for a total of 13 visit(s). Discharge Date: 12/26/18 Please see the following information for a summary of their discharge status. - Subjective Subjective: R shoulder doing well, no problems, no limitations at home or work. 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 - Pain R shoulder Pain Intensity (Out of 10): 0 L shoulder Pain Intensity (Out of 10): 2 - Overall Improvement % Improvement: 90 - Objective Objective/Function: 140 flexion, 140 abd, tends to SB slightly away to get mechanical advantage., Has 42 degrees ext rotation adn L4 IR. Strength is 4- in elevation adn 4- ext rotationa dn 4+ IR. Is working on this I and will continue to. - Goals Goal 1:: ST: Full PROM without excessive pain >1/10 by September 25 Goal Progress: Goal Met Goal 2:: LT: Progress appropriately AROM flexion and elbow flexion/ext and abd ext rotation full to be able to self groom by mid October Goal Progress: Goal Met Goal 3:: ST: sleep through night without waking 7 hours Goal Progress: Goal Met, r shoulder Goal 4:: LT: Pt have plan to be ready to resume fu work at [employer] without increased pain Goal Progress: Goal Met Goal 5:: Pt feel 90% back to normal with activities Goal Progress: Goal Met - Plan Plan: d/c. Will monitor progress as we treat other shoulder. - D/C Information Discharge Comments: Doing well, some weakness persists but will continue to work I on this at home. No functional deficits from a subjective point of view. If there are questions or concerns regarding this patient's physical therapy, please feel free to call me at [phone]. Thank you for the referral of this patient. Sincerely, Farrukh Mcleod, DPT, OCS, CSCS
== END 2019-01-16 19:00 | disposition home or self-care (01) ==
LOC: PT 07:30
PROVIDERS: Family Provider Internal Medicine; PCP Internal Medicine; Referring Provider Orthopaedic Surgery; Visit Provider Orthopaedic Surgery
DX: Z98.890 Other specified postprocedural states (principal)
CPT/HCPCS: 97110; 97140; 97161; 97530

== ENCOUNTER → 2019-03-11 16:29 | Outpatient (CLI) | payer OTHER, SELFPAY ==
[2019-01-15 08:00] VITALS: BMI 43.0
[2019-03-11 17:58] LABS: Magnesium 2.2 mg/dL (1.6-2.6); Phosphorus 4.2 mg/dL (2.5-4.9)
== END ==
PROVIDERS: Family Provider Internal Medicine; PCP Internal Medicine; Referring Provider Internal Medicine; Visit Provider Internal Medicine
DX: Z51.81 Encounter for therapeutic drug level monitoring (principal)
CPT/HCPCS: 36415; 83735; 84100

== ENCOUNTER → 2019-03-25 08:42 | Outpatient (CLI) | payer OTHER, SELFPAY ==
[2019-01-15 08:00] VITALS: BMI 43.0
[2019-03-25 10:21] LABS: Hemoglobin A1c 6.2 % (4.2-6.3)
== END ==
PROVIDERS: PCP Internal Medicine; Referring Provider Internal Medicine; Visit Provider Internal Medicine
DX: R73.09 Other abnormal glucose (principal)
CPT/HCPCS: 36415; 83036

== ENCOUNTER → 2019-07-14 08:14 | Outpatient (CLI) | payer OTHER, SELFPAY ==
[2019-04-23 08:00] VITALS: BMI 43.0
[2019-07-14 08:22] LABS: Bacteria 0 SEEN /hpf (None Seen); Mucous, Urine 0 SEEN /hpf (<or=2+); Red Blood Cells-Urine 0 SEEN /hpf (0-5); White Blood Cells 0 SEEN /hpf (0-5)
[2019-07-14 08:47] LABS: Absolute Lymphocyte Count 1.76 X10^3/uL (0.83-4.51); Absolute Neutrophil Count 3.7 X10^3/uL (2.0-7.7); Basophil# 0.03 X10^3/uL; Basophil% 0.5 % (0-1); Eosinophils% 4.8 % (0-5); Hematocrit 43.3 % (40-54); Hemoglobin 13.3 g/dL (13.0-16.5); Lymphocyte # 1.76 X10^3/ul (4.0); Lymphocyte % 28.1 % (19-41); Mean Corp Hgb Conc 30.7 g/dL (32-36); Mean Corpuscular Volume 87.8 fL (80-94); Mean Platelet Vol. 9.7 fl (6.2-12.0); Monocyte# 0.51 X10^3/uL; Monocyte% 8.1 % (0-10); NRBC Flagged by Analyzer 0 % (0-5); Neutrophil # 3.65 X10^3/uL (2.7-7.7); Neutrophil % 58.3 % (47-70); Platelet Count 265 K/mm3 (150-450); RBC Distribution Width CV 14.6 % (11.6-14.6); RBC Distribution Width SD 46.7 fl (35.1-43.9); Red Blood Count 4.93 M/mm3 (4.6-6.2); White Blood Count 6.3 K/mm3 (4.4-11.0)
[2019-07-14 08:57] LABS: Color, Urine Yellow (Yellow); Glucose, Dipstick Normal (Normal); Ketone-Dipstick Negative (Negative); Leukocyte Esterase-Dipstick Negative /ul (Negative); Nitrite-Dipstick Negative (Negative); Occult Blood-Urine Negative /ul (Negative); Protein-Dipstick Negative (Negative); Urine Bilirubin Dipstick Negative (Negative); Urine Clarity Sl. Cloudy (Clear); Urine Urobilinogen Normal (Normal)
[2019-07-14 09:03] LABS: Squamous Epithelial Cells - UA 0-5 SEEN /hpf (0-5)
[2019-07-14 09:06] LABS: Hemoglobin A1c 5.9 % (3.8-5.6)
[2019-07-14 09:18] LABS: Microalbumin,Random Urine < 5.0 mg/L (NO RANGE EST.)
[2019-07-14 09:21] LABS: Vitamin D,25 Hydroxy 56.5 ng/mL
[2019-07-14 09:23] LABS: AST(SGOT) 19 U/L (15-37); Alanine Aminotransfer ALT/SGPT 27 U/L (16-61); Albumin, Serum 3.7 g/dL (3.2-5.0); Alkaline Phosphatase 70 U/L (45-117); Anion Gap 5 (5-15); BUN 19 mg/dL (7-18); BUN/Creat Ratio 21.4 RATIO (10-20); Calcium,Total 9.1 mg/dL (8.5-10.1); Chloride 105 mmol/L (98-107); Cholesterol 161 mg/dL (200); Creatinine, Serum 0.89 mg/dL (0.70-1.30); EST Glomerular Filtration Rate 93 mL/min (>60); Est Glom Filt Rate - Afr Amer 112 mL/min (>60); Globulin 3.7 g/dL (2.2-4.2); Glucose 106 mg/dL (74-106); High Density Lipoprotein 54 mg/dL; Potassium 4.1 mmol/L (3.5-5.1); Protein, Total 7.4 g/dL (6.4-8.2); Sodium Level 140 mmol/L (136-145); Thyroid Stim Hormone (TSH) 1.37 uIU/mL (0.358-3.74); Triglycerides 80 mg/dL; Very Low Density Lipoprotein 16 mg/dL (5-40)
== END ==
PROVIDERS: PCP Internal Medicine; Referring Provider Internal Medicine; Visit Provider Internal Medicine
DX: R73.09 Other abnormal glucose (principal); E55.9 Vitamin D deficiency, unspecified
CPT/HCPCS: 36415; 80053; 80061; 81001; 82043; 82306; 82570; 83036; 84443; 85025

== ENCOUNTER → 2019-11-24 06:01 | Outpatient (CLI) | payer OTHER, SELFPAY ==
[2019-08-19 08:09] VITALS: BMI 43.0
[2019-11-24 08:09] LABS: Hemoglobin A1c 5.9 % (3.8-5.6)
== END ==
PROVIDERS: PCP Internal Medicine; Referring Provider Internal Medicine; Visit Provider Internal Medicine
DX: R73.09 Other abnormal glucose (principal)
CPT/HCPCS: 36415; 83036

== ENCOUNTER → 2019-12-16 08:50 | Outpatient (CLI) | payer OTHER, SELFPAY ==
[2019-08-19 08:09] VITALS: BMI 43.0
--- NOTE | 2019-12-16 08:52 | CDU_ITS ---
Reason For Study: Carotid stenosis Rt. Velocities/BP Lt. Velocities/BP Prox CCA 143.2/26.7 cm/sec. Prox CCA 128/29.2 cm/sec. Mid CCA 138.1/34.4 cm/sec. Mid CCA 110.4/29.2 cm/sec. Dist CCA 114.8/31.4 cm/sec. Dist CCA 97.2/31.4 cm/sec. Prox ICA 73.6/17 cm/sec. Prox ICA 139/31.4 cm/sec. Mid ICA 63/23.4 cm/sec. Mid ICA 84.1/18.2 cm/sec. Dist ICA 65.2/26.7 cm/sec. Dist ICA 75.3/26.2 cm/sec. Rt. ICA/CCA = 0.53. Lt. ICA/CCA = 1.26. Prox ECA 125.8/24.8 cm/sec. Prox ECA 149.9/22.6 cm/sec. Rt. Vert. 42.1/13.5 cm/sec. Lt. Vert. 43.2/13.5 cm/sec. Right Extracranial There is intimal thickening but no significant atherosclerotic plaque noted in the right common carotid artery. There is intimal thickening but no significant atherosclerotic plaque noted in the right internal carotid artery. There is intimal thickening but no significant atherosclerotic plaque noted in the right external carotid artery. Antegrade flow is noted in the right vertebral artery. Left Extracranial There is intimal thickening but no significant atherosclerotic plaque noted in the left common carotid artery. There is intimal thickening but no significant atherosclerotic plaque noted in the left internal carotid artery. There is intimal thickening but no significant atherosclerotic plaque noted in the left external carotid artery. Antegrade flow is noted in the left vertebral artery. Procedure Carotid Duplex 99040. This is a Carotid Duplex examination using B-mode, color flow and specral Doppler. Exam performed in department. Interpretation Summary No significant atherosclerotic plaque or stenosis noted in the internal carotid arteries bilaterally. Flow within the vertebral arteries is antegrade bilaterally. Ordering Physician: Cari Portillo Referring Physician: Cari Portillo Performed By: Myrna Rosa RVT
== END ==
PROVIDERS: PCP Internal Medicine; Referring Provider Internal Medicine; Visit Provider Internal Medicine
DX: I65.23 Occlusion and stenosis of bilateral carotid arteries (principal)
CPT/HCPCS: 93880

== ENCOUNTER → 2020-04-05 08:37 | Outpatient (CLI) | payer OTHER, SELFPAY ==
[2020-03-23 08:04] VITALS: BMI 46.3
[2020-04-05 09:01] LABS: Color, Urine Yellow (Yellow); Glucose, Dipstick Normal (Normal); Ketone-Dipstick Negative (Negative); Leukocyte Esterase-Dipstick 25 /ul (Negative); Nitrite-Dipstick Negative (Negative); Occult Blood-Urine Negative /ul (Negative); Protein-Dipstick Negative (Negative); Specific Gravity, Urine 1.015 (1.002-1.030); Urine Bilirubin Dipstick Negative (Negative); Urine Clarity Clear (Clear); Urine Urobilinogen Normal (Normal); Urine pH 6.5 (5.0 - 8.0)
[2020-04-05 09:07] LABS: Absolute Lymphocyte Count 1.79 X10^3/uL (0.83-4.51); Absolute Neutrophil Count 3.2 X10^3/uL (2.0-7.7); Basophil# 0.02 X10^3/uL; Basophil% 0.3 % (0-1); Eosinophil# 0.24 X10^3/uL; Eosinophils% 4.1 % (0-5); Hematocrit 43.4 % (40-54); Hemoglobin 13.7 g/dL (13.0-16.5); Lymphocyte # 1.79 X10^3/ul (4.0); Lymphocyte % 30.8 % (19-41); Mean Corp Hgb Conc 31.6 g/dL (32-36); Mean Corpuscular Volume 88.6 fL (80-94); Mean Platelet Vol. 9.6 fl (6.2-12.0); Monocyte# 0.53 X10^3/uL; Monocyte% 9.1 % (0-10); NRBC Flagged by Analyzer 0 % (0-5); Neutrophil # 3.21 X10^3/uL (2.7-7.7); Neutrophil % 55.4 % (47-70); Platelet Count 256 K/mm3 (150-450); RBC Distribution Width CV 14.2 % (11.6-14.6); RBC Distribution Width SD 45.9 fl (35.1-43.9); White Blood Count 5.8 K/mm3 (4.4-11.0)
[2020-04-05 09:32] LABS: Vitamin D,25 Hydroxy 46.3 ng/mL
[2020-04-05 09:39] LABS: Hemoglobin A1c 5.8 % (3.8-5.6)
[2020-04-05 09:42] LABS: AST(SGOT) 18 U/L (15-37); Alanine Aminotransfer ALT/SGPT 29 U/L (16-61); Albumin, Serum 3.8 g/dL (3.2-5.0); Alkaline Phosphatase 69 U/L (45-117); Anion Gap 1 (5-15); BUN 23 mg/dL (7-18); BUN/Creat Ratio 24.2 RATIO (10-20); Chloride 106 mmol/L (98-107); Creatinine, Serum 0.95 mg/dL (0.70-1.30); EST Glomerular Filtration Rate 85 mL/min (>60); Est Glom Filt Rate - Afr Amer 103 mL/min (>60); Globulin 3.8 g/dL (2.2-4.2); Glucose 95 mg/dL (74-106); Potassium 3.9 mmol/L (3.5-5.1); Protein, Total 7.6 g/dL (6.4-8.2); Sodium Level 139 mmol/L (136-145); Thyroid Stim Hormone (TSH) 1.11 uIU/mL (0.358-3.74)
[2020-04-05 09:45] LABS: Microalbumin,Random Urine 9.1 mg/L (NO RANGE EST.); Microalbumin:Creatinine Ratio 3.9 mg/g CRE (<30 mg/g CRE)
== END ==
PROVIDERS: PCP Internal Medicine; Referring Provider Internal Medicine; Visit Provider Internal Medicine
DX: R73.09 Other abnormal glucose (principal); E55.9 Vitamin D deficiency, unspecified; I10 Essential (primary) hypertension
CPT/HCPCS: 36415; 80053; 81002; 82043; 82306; 82570; 83036; 84443; 85025

== ENCOUNTER → 2020-06-15 09:13 | Outpatient (CLI) | payer OTHER, SELFPAY ==
[2020-06-14 07:29] VITALS: BMI 44.9
--- NOTE | 2020-06-15 09:20 | RAD_ITS ---
HISTORY: PRURITIS EXAM: XR Chest 2 Views: COMPARISON: March 21, 2018 FINDINGS: # of images incl. paperwork: 2 Lungs are clear. Heart is not enlarged. No acute osseous pathology perceived. Pulmonary vascularity is distinct. No effusions. RAD/Chest PA and Lateral IMPRESSION: Normal. at 2213 Reported and signed by: Bravo Melton MD Electronically Signed: Bravo Melton MD at 22:12 EDT Tel , Service support ,
[2020-06-15 10:15] LABS: Absolute Lymphocyte Count 0.83 X10^3/uL (0.83-4.51); Absolute Neutrophil Count 5.9 X10^3/uL (2.0-7.7); Basophil# 0.02 X10^3/uL; Basophil% 0.3 % (0-1); Eosinophil# 0.08 X10^3/uL; Eosinophils% 1.1 % (0-5); Hemoglobin 13.6 g/dL (13.0-16.5); Lymphocyte # 0.83 X10^3/ul (0.83-4.51); Lymphocyte % 11.4 % (19-41); Mean Corp Hgb Conc 30.9 g/dL (32-36); Mean Corpuscular Hgb 27.9 pg (27.0-32.0); Mean Corpuscular Volume 90.3 fL (80-94); Monocyte# 0.45 X10^3/uL; Monocyte% 6.2 % (0-10); NRBC Flagged by Analyzer 0 % (0-5); Neutrophil # 5.88 X10^3/uL (2.7-7.7); Neutrophil % 80.7 % (47-70); Platelet Count 239 K/mm3 (150-450); RBC Distribution Width CV 14.3 % (11.6-14.6); RBC Distribution Width SD 46.8 fl (35.1-43.9); Red Blood Count 4.87 M/mm3 (4.6-6.2); White Blood Count 7.3 K/mm3 (4.4-11.0)
[2020-06-15 11:04] LABS: AST(SGOT) 19 U/L (15-37); Alanine Aminotransfer ALT/SGPT 31 U/L (16-61); Alkaline Phosphatase 74 U/L (45-117); Anion Gap 4 (5-15); BUN 17 mg/dL (7-18); BUN/Creat Ratio 18.4 RATIO (10-20); Bilirubin, Direct 0.13 mg/dL (0.00-0.30); Calcium,Total 8.8 mg/dL (8.5-10.1); Chloride 105 mmol/L (98-107); Creatinine, Serum 0.93 mg/dL (0.70-1.30); EST Glomerular Filtration Rate 88 mL/min (>60); Est Glom Filt Rate - Afr Amer 107 mL/min (>60); Globulin 3.9 g/dL (2.2-4.2); Glucose 112 mg/dL (74-106); Potassium 3.8 mmol/L (3.5-5.1); Protein, Total 7.9 g/dL (6.4-8.2); Sodium Level 138 mmol/L (136-145); T4 Free Direct 1.02 ng/dL (0.76-1.46)
[2020-06-15 11:29] LABS: HIV - WCH Non-Reactive (Nonreactive); Hepatitis C Antibody Non-Reactive (Nonreactive)
[2020-06-17 14:09] LABS: Albumin, Ur 24.9 % (.); Alpha-1-Globulins 0.3 g/dL (0.0-0.4); Alpha-2-Globulins 0.9 g/dL (0.4-1.0); Alpha-2-Globulins, Ur 24.1 % (.); Beta Globulin, Ur 26.3 % (.); Gamma Globulin, Ur 19.7 % (.); Immunoglobulin A 105 mg/dL (61-437); Immunoglobulin G 1056 mg/dL (603-1613); Immunoglobulin M 41 mg/dL (20-172); M-Spike, Ur % Not Observed % (Not Observed); PROEL- TOTAL PROTEIN 7.3 g/dL (6.0-8.5); Total Protein, Ur 15.9 mg/dL (Not Estab.)
[2020-06-17 16:11] LABS: Anti-Nuclear Antibody Test Negative (.); Deamidated Gliadin IgA 3 units (0-19); Deamidated Gliadin IgG 1 units (0-19); t-Transglutaminase IgA <2 U/mL (0-3)
== END ==
PROVIDERS: PCP Internal Medicine; Referring Provider Dermatology; Visit Provider Dermatology
DX: L29.8 Other pruritus (principal)
CPT/HCPCS: 36415; 71046; 80048; 80076; 82784; 83516; 84165; 84166; 84439; 84443; 85025; 86038; 86334; 86335; 86703; 86803

== ENCOUNTER → 2020-09-21 08:35 | Outpatient (CLI) | payer OTHER, SELFPAY ==
[2020-09-21 08:07] VITALS: BMI 39.7
[2020-09-21 12:36] LABS: Vitamin D,25 Hydroxy 65.2 ng/mL
[2020-09-21 12:39] LABS: Cholesterol 147 mg/dL (200); High Density Lipoprotein 50 mg/dL; PSA,Total - Annual Screen 0.76 ng/mL (0.00-4.00); Triglycerides 56 mg/dL; Very Low Density Lipoprotein 11 mg/dL (5-40)
[2020-09-21 12:58] LABS: Hemoglobin A1c 5.8 % (3.8-5.6)
== END ==
PROVIDERS: PCP Internal Medicine; Referring Provider Internal Medicine; Visit Provider Internal Medicine
DX: E55.9 Vitamin D deficiency, unspecified (principal); I10 Essential (primary) hypertension; K44.9 Diaphragmatic hernia without obstruction or gangrene; M06.9 Rheumatoid arthritis, unspecified
CPT/HCPCS: 36415; 80061; 82306; 83036; 84153; G0103

== ENCOUNTER 2021-09-20 08:36 | Outpatient (CLI) | payer OTHER, SELFPAY ==
[2021-09-20 09:49] LABS: Absolute Lymphocyte Count 1.59 X10^3/uL (0.83-4.51); Absolute Neutrophil Count 2.5 X10^3/uL (2.0-7.7); Basophil# 0.03 X10^3/uL; Basophil% 0.6 % (0-1); Eosinophil# 0.19 X10^3/uL; Hematocrit 44.8 % (40-54); Hemoglobin 14.5 g/dL (13.0-16.5); Lymphocyte # 1.59 X10^3/ul (0.83-4.51); Lymphocyte % 33.1 % (19-41); Mean Corp Hgb Conc 32.4 g/dL (32-36); Mean Corpuscular Hgb 29.4 pg (27.0-32.0); Mean Corpuscular Volume 90.7 fL (80-94); Monocyte# 0.47 X10^3/uL; Monocyte% 9.8 % (0-10); NRBC Flagged by Analyzer 0 % (0-5); Neutrophil # 2.52 X10^3/uL (2.7-7.7); Neutrophil % 52.3 % (47-70); Platelet Count 220 K/mm3 (150-450); RBC Distribution Width CV 13.6 % (11.6-14.6); RBC Distribution Width SD 45.2 fl (35.1-43.9); Red Blood Count 4.94 M/mm3 (4.6-6.2); White Blood Count 4.8 K/mm3 (4.4-11.0)
[2021-09-20 10:16] LABS: Vitamin D,25 Hydroxy 62.9 ng/mL
[2021-09-20 10:39] LABS: ALB/GLOB Ratio 1.1 RATIO (0.9-2.4); AST(SGOT) 20 U/L (15-37); Alanine Aminotransfer ALT/SGPT 27 U/L (16-61); Alkaline Phosphatase 65 U/L (45-117); Anion Gap 4 (5-15); BUN 23 mg/dL (7-18); BUN/Creat Ratio 24.9 RATIO (10-20); Calcium,Total 9.2 mg/dL (8.5-10.1); Chloride 106 mmol/L (98-107); Cholesterol 142 mg/dL (200); Creatinine, Serum 0.92 mg/dL (0.70-1.30); EST Glomerular Filtration Rate 88 mL/min (>60); Est Glom Filt Rate - Afr Amer 106 mL/min (>60); Globulin 3.5 g/dL (2.2-4.2); Glucose 97 mg/dL (74-106); High Density Lipoprotein 52 mg/dL; Potassium 3.8 mmol/L (3.5-5.1); Protein, Total 7.5 g/dL (6.4-8.2); Sodium Level 139 mmol/L (136-145); Thyroid Stim Hormone (TSH) 1.41 uIU/mL (0.358-3.74); Triglycerides 49 mg/dL; Very Low Density Lipoprotein 10 mg/dL (5-40)
== END 2021-09-20 23:59 | disposition home or self-care (01) ==
PROVIDERS: PCP Internal Medicine; Visit Provider Internal Medicine
DX: E11.9 Type 2 diabetes mellitus without complications (principal); E55.9 Vitamin D deficiency, unspecified; I10 Essential (primary) hypertension; M19.90 Unspecified osteoarthritis, unspecified site; K21.9 Gastro-esophageal reflux disease without esophagitis; R06.81 Apnea, not elsewhere classified; G47.33 Obstructive sleep apnea (adult) (pediatric)
CPT/HCPCS: 36415; 80053; 80061; 82306; 84443; 85025

== ENCOUNTER → 2021-09-27 | Outpatient (CLI) | payer OTHER, SELFPAY | END | disposition home or self-care (01) | LOC: LAB 08:31 | PROVIDERS: PCP Internal Medicine; Referring Provider Internal Medicine; Visit Provider Internal Medicine | DX: I10 Essential (primary) hypertension (principal); E11.9 Type 2 diabetes mellitus without complications; E55.9 Vitamin D deficiency, unspecified; M19.90 Unspecified osteoarthritis, unspecified site; K21.9 Gastro-esophageal reflux disease without esophagitis; R06.81 Apnea, not elsewhere classified; G47.33 Obstructive sleep apnea (adult) (pediatric); Z12.5 Encounter for screening for malignant neoplasm of prostate | CPT/HCPCS: 36415; 84153; G0103 ==

== ENCOUNTER 2022-01-25 06:41 | Day surgery (SDC) | payer OTHER, SELFPAY ==
[2022-01-25] VITALS (7 sets, daily range): BP systolic 101–126; BP diastolic 75–85; PULSE 67–76; RESP 18; TEMP 36.6–37.3; O2SAT 96–100; BMI 38.2
--- NOTE | 2022-01-25 06:57 | HP.PCM_ITS ---
History and Physical Date of Admission: 01/25/22 ED CRISTHIAN, is a 61 M who presents to the office today to establish with GI, he is overdue for colonoscopy and needs EGD also. 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 He has a hiatal hernia. Last EGD was 2016. Denies hx of Yao's. He takes pantoprazole 40 mg daily. Denies issues with acid reflux, heartburn, dysphagia. No nausea, vomiting. No early satiety. No abdominal pain. No diarrhea or constipation. No melena or hematochezia. He recalls having a screening colonoscopy at age 48, no polyps. No FH colon cancer. Recent intentional weight loss of 15 lbs. He is riding his bike more. 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 ROS Const Constitutional: No fatigue ENT ENT: No difficulty swallowing Gastro GI: No abdominal pain, belching, bloating, change in bowel habits, change in stool character, coffee ground emesis, constipation, cramping, diarrhea, heartburn, difficulty swallowing, feeling full early, excessive flatus, incontinent of stools, Vomiting blood/hematemesis, Blood in stool, loose stools, Black,tarry stools, nausea/dyspepsia, pain with swallowing, vomiting or other Musc Musculoskeletal: No joint pain Skin Skin: No yellowing of the eye or itchy eyes Psych Psychiatric: No anxiety and No depression Endo Endocrine: No fatigue Aller/Imm Allergy/Immunologic: No itchy eyes Du/Lymp Hematologic/Lymphatic: No easy bleeding or easy bruising Exam Const General: cooperative and comfortable Nutritional Appearance: obese Orientation: alert, awake and oriented x3 Quality Reporting Tobacco Screening ([facility] 138) Smoking Status: Never smoker Assessment and Plan Assessment and Plan (1) GERD (gastroesophageal reflux disease): ?Status:?Acute ?Plan: 61 yr old male with hiatal hernia, on PPI, need for updated EGD and for colon cancer screening Continue PPI Will schedule him for EGD to eval his hiatal hernia, eval for Yao's, and screening colonoscopy f/u 2 wks later to discuss pathology results (2) Hiatal hernia: ?Status:?Chronic ?Plan: as above I have examined the patient and the H&P has been reviewed. There are no clinical changes since date of exam.
[2022-01-25] MEDS: Lactated Ringers 1,000 ML 15 ML IV (07:07)
--- NOTE | 2022-01-25 07:45 | EGD_PTH ---
PATIENT: WILLA MORROW Jr. LOC: EN U#:[id number] AGE/SX: 61/M ROOM: RE01/25/[address]: Dr. Henry Robertson DO : 1960 BED: DIS: 01/25/2022 SPEC #: [id number] RECD: 01/25/22 09:09 STATUS: TEJINDER REPramod #: [id number] SILAS: 01/25/22 07:[address]: Henry Robertson DEPT: SURGICAL PATHOLOGY RECD BY: Lisa Lovett ENTERED: 01/25/22 10:43 SP TYPE: EGD [facility] DR: MD Latesha Mesa OLS, MD Tissues: A - Esophagus, NOS B - Gastric mucous membrane Procedures: Special Stain Group II Surgery Specimen Level IV Alcian Blue/PAS (control) HEADER OPERATION: Colonoscopy, EGD (MAC) and biopsy PRE-OP DIAGNOSIS: GERD, hiatal hernia TISSUE SUBMITTED: A ? Distal esophagus biopsy, B ? Gastric body biopsy MICROSCOPIC DIAGNOSIS A. Distal esophagus, biopsy: Gastroesophageal junctional mucosa with chronic inflammation. No evidence of goblet cell metaplasia. See comment. B. Gastric body, biopsy: Chronic gastritis. See comment. AM:xochitl 01/26/2022 COMMENT A. Alcian blue/PAS stain with matched control supports the above diagnosis. B. The results of immunohistochemistry for Helicobacter pylori will be reported separately ([id number]). MICROSCOPIC DESCRIPTION Slides are reviewed. GROSS DESCRIPTION A - Received in fixative is one container labeled with the patient's name and designated distal esophagus. The specimen consists of multiple irregular fragments of light ramos soft tissue that in aggregate measure 0.9 x 0.8 x 0.1 cm. The specimen is totally submitted in one cassette. B - Received in fixative is one container labeled with the patient's name and designated gastric body biopsy. The specimen consists of multiple irregular fragments of light ramos soft tissue that in aggregate measure 1 x 0.6 x 0.1 cm. The specimen is totally submitted in one cassette. / AM:xochitl 01/25/2022 TC:3 CPT: 43829 x2, 64388
--- NOTE | 2022-01-25 07:45 | IMM_PTH ---
PATIENT: WILLA MORROW Jr. LOC: EN U#:[id number] AGE/SX: 61/M ROOM: RE01/25/[address]: Dr. Henry Robertson DO : 1960 BED: DIS: 01/25/2022 SPEC #: [id number] RECD: 01/25/22 13:45 STATUS: TEJINDER REQ #: [id number] SILAS: 01/25/22 07:[address]: Henry Robertson DEPT: IMMUNOHISTOCHEMISTRY RECD BY: Janay Honeycutt ENTERED: 01/25/22 13:46 SP TYPE: IMMUNO OTHR DR: MD Latesha Mesa OLS, MD Tissues: B - Stomach, NOS Procedures: H Pylori (initial) PHYSICIAN & INSTITUTION [place] [address] SPECIMEN INFORMATION: Tissue Source: B ? Gastric body biopsy Clinical Info: GERD, hiatal hernia Specimen Number: [id number] CPT code: 15141 METHODOLOGY: Deparaffinized sections of prefer/formalin-fixed tissue or PAP/DQ stained slides are incubated with monoclonal/polyclonal antibodies/oligonucleotide probes. Localization is made via biotin free immunoperoxidase method. Appropriate controls are performed and reacted as expected. Results on target cell population are indicated in the following table: RESULTS: ANTIBODY / CLONE RESULT Block B H Pylori (polyclonal) negative These tests were developed and their performance characteristics determined by [facility]. They may not have been cleared or approved by the U.S. Food and Drug Administration. The FDA has determined that such clearance or approval is not necessary. The above immunohistochemical/dualISH markers are ordered and reviewed by the Pathologist. INTERPRETATION: B. Gastric body, biopsy: Negative for Helicobacter pylori organisms. AM:xochitl 01/26/2022
--- NOTE | 2022-01-25 08:29 | OP.EGD_ITS ---
Patient Name: Everette Freitas Procedure Date: 01/25/2022 7:45 AM Date of : 1960 Age: 61 Procedure: Upper GI endoscopy Indications: Heartburn Providers: Henry Robertson DO Referring MD: Latesha Zafar Md Medicines: Monitored Anesthesia Care Patient Profile: This is a 61 year old male. Refer to note in patient chart for documentation of history and physical. Patient has symptoms of chronic heartburn. Complications: No immediate complications. Procedure: Pre-Anesthesia Assessment: - Prior to the procedure, a History and Physical was performed, and patient medications and allergies were reviewed. The patient is competent. The risks and benefits of the procedure and the sedation options and risks were discussed with the patient. All questions were answered and informed consent was obtained. Patient identification and proposed procedure were verified by the physician. Mental Status Examination: alert and oriented. Airway Examination: normal oropharyngeal airway and neck mobility. Respiratory Examination: clear to auscultation. CV Examination: normal. Prophylactic Antibiotics: The patient does not require prophylactic antibiotics. Prior Anticoagulants: The patient has taken no previous anticoagulant or antiplatelet agents. ASA Grade Assessment: II - A patient with mild systemic disease. After reviewing the risks and benefits, the patient was deemed in satisfactory condition to undergo the procedure. The anesthesia plan was to use monitored anesthesia care (MAC). Immediately prior to administration of medications, the patient was re-assessed for adequacy to receive sedatives. The heart rate, respiratory rate, oxygen saturations, blood pressure, adequacy of pulmonary ventilation, and response to care were monitored throughout the procedure. The physical status of the patient was re-assessed after the procedure. After obtaining informed consent, the endoscope was passed under direct vision. Throughout the procedure, the patient's blood pressure, pulse, and oxygen saturations were monitored continuously. The colonoscope was introduced through the mouth, and advanced to the second part of duodenum. The upper GI endoscopy was accomplished without difficulty. The patient tolerated the procedure well. Scope In: 7:55:07 AM Scope Out: 8:01:36 AM Total Procedure Duration Time 0 hours 6 minutes 29 seconds Findings: Non-severe esophagitis with no bleeding was found 38 to 39 cm from the incisors. Biopsies were taken with a cold forceps for histology. Verification of patient identification for the specimen was done. Estimated blood loss was minimal. Patchy mildly erythematous mucosa without bleeding was found in the gastric body. Biopsies were taken with a cold forceps for histology. Verification of patient identification for the specimen was done. Estimated blood loss was minimal. The second portion of the duodenum was normal. Impression: - Non-severe reflux esophagitis. Biopsied. - Erythematous mucosa in the gastric body. Biopsied. - Normal second portion of the duodenum. Recommendation: - Discharge patient to home. - Resume previous diet. - Continue present medications. - Await pathology results. - Await pathology results. Procedure Code(s): --- Professional --- 33333, Esophagogastroduodenoscopy, flexible, transoral; with biopsy, single or multiple CPT copyright 2017 [employer]. All rights reserved. The codes documented in this report are preliminary and upon inpatient coder review may be revised to meet current compliance requirements. Henry Robertson DO 01/25/2022 8:29:12 AM This report has been signed electronically. Number of Addenda: 0 Note Initiated On: 01/25/2022 7:45 AM
--- NOTE | 2022-01-25 08:30 | OP.CCLET_ITS ---
01/25/2022 Latesha Zafar [facility] [address] [place] [address] Re : Upper GI endoscopy procedure for Ed Zena Dear Dr. Zafar This procedure was performed on January. My impressions and recommendations are as follows: Impressions : - Non-severe reflux esophagitis. Biopsied. - Erythematous mucosa in the gastric body. Biopsied. - Normal second portion of the duodenum. Recommendations : - Discharge patient to home. - Resume previous diet. - Continue present medications. - Await pathology results. - Await pathology results. My findings are described in the full procedure note, which is enclosed. If I can be of further assistance, please feel free to contact me at . Sincerely, Henry Robretson, 01/25/2022 8:29:12 AM This report has been signed electronically.
--- NOTE | 2022-01-25 08:33 | OP.COLON_ITS ---
Patient Name: Everette Freitas Procedure Date: 01/25/2022 8:01 AM Date of : 1960 Age: 61 Procedure: Colonoscopy Indications: Screening for colorectal malignant neoplasm Providers: Henry Robertson DO Referring MD: Latesha Zafar Md Medicines: Monitored Anesthesia Care Patient Profile: This is a 61 year old male. Refer to note in patient chart for documentation of history and physical. Patient has symptoms of chronic heartburn. Last Colonoscopy: several years ago. Complications: No immediate complications. Procedure: Pre-Anesthesia Assessment: - Prior to the procedure, a History and Physical was performed, and patient medications and allergies were reviewed. The patient is competent. The risks and benefits of the procedure and the sedation options and risks were discussed with the patient. All questions were answered and informed consent was obtained. Patient identification and proposed procedure were verified by the physician. Mental Status Examination: alert and oriented. Airway Examination: normal oropharyngeal airway and neck mobility. Respiratory Examination: clear to auscultation. CV Examination: normal. Prophylactic Antibiotics: The patient does not require prophylactic antibiotics. Prior Anticoagulants: The patient has taken no previous anticoagulant or antiplatelet agents. ASA Grade Assessment: II - A patient with mild systemic disease. After reviewing the risks and benefits, the patient was deemed in satisfactory condition to undergo the procedure. The anesthesia plan was to use monitored anesthesia care (MAC). Immediately prior to administration of medications, the patient was re-assessed for adequacy to receive sedatives. The heart rate, respiratory rate, oxygen saturations, blood pressure, adequacy of pulmonary ventilation, and response to care were monitored throughout the procedure. The physical status of the patient was re-assessed after the procedure. After I obtained informed consent, the scope was passed under direct vision. Throughout the procedure, the patient's blood pressure, pulse, and oxygen saturations were monitored continuously. The colonoscope was introduced through the anus and advanced to the terminal ileum. The colonoscopy was performed without difficulty. The patient tolerated the procedure well. The quality of the bowel preparation was good. Scope In: 8:05:26 AM Scope Withdrawal Time 0 hours 9 minutes 41 seconds Scope Out: 8:17:54 AM Total Procedure Duration Time 0 hours 12 minutes 28 seconds Findings: The perianal and digital rectal examinations were normal. Many small and large-mouthed diverticula were found in the recto-sigmoid colon and sigmoid colon. The exam was otherwise without abnormality on direct and retroflexion views. Impression: - Diverticulosis in the recto-sigmoid colon and in the sigmoid colon. - The examination was otherwise normal on direct and retroflexion views. - No specimens collected. Recommendation: - Discharge patient to home. - Resume previous diet. - Continue present medications. - Await pathology results. - Repeat colonoscopy in 5 years for surveillance. Procedure Code(s): --- Professional --- G0121, Colorectal cancer screening; colonoscopy on individual not meeting criteria for high risk CPT copyright 2017 [employer]. All rights reserved. The codes documented in this report are preliminary and upon component assembler supervisor review may be revised to meet current compliance requirements. Henry Robertson DO 01/25/2022 8:33:16 AM This report has been signed electronically. Number of Addenda: 0 Note Initiated On: 01/25/2022 8:01 AM
--- NOTE | 2022-01-25 08:34 | OP.CCLET_ITS ---
01/25/2022 Latesha Zafar [facility] [address] [place] [address] Re : Colonoscopy procedure for Ed Zena Dear Dr. Zafar This procedure was performed on January. My impressions and recommendations are as follows: Impressions : - Diverticulosis in the recto-sigmoid colon and in the sigmoid colon. - The examination was otherwise normal on direct and retroflexion views. - No specimens collected. Recommendations : - Discharge patient to home. - Resume previous diet. - Continue present medications. - Await pathology results. - Repeat colonoscopy in 5 years for surveillance. My findings are described in the full procedure note, which is enclosed. If I can be of further assistance, please feel free to contact me at . Sincerely, Henry Friend, 01/25/2022 8:33:16 AM This report has been signed electronically.
== END 2022-01-25 09:26 | disposition home or self-care (01) ==
LOC: EN 06:41 → AC 06:42
PROVIDERS: PCP Internal Medicine; Visit Provider Internal Medicine Gastroenterology
PROC: 0DJD8ZZ Inspection of Lower Intestinal Tract, Via Natural or Artificial Opening Endoscopic (ICD-10-PCS; CPT 45378; principal; 2022-01-25 07:40)
DX: Z12.11 Encounter for screening for malignant neoplasm of colon (principal); K29.50 Unspecified chronic gastritis without bleeding; K21.00 Gastro-esophageal reflux disease with esophagitis, without bleeding; K44.9 Diaphragmatic hernia without obstruction or gangrene; K57.30 Diverticulosis of large intestine without perforation or abscess without bleeding
CPT/HCPCS: 45378; 43239; 88305; 88313; 88342; J7120; J2405

== ENCOUNTER → 2022-09-12 | Outpatient (CLI) | payer OTHER, SELFPAY ==
[2022-09-12 10:52] LABS: Absolute Lymphocyte Count 1.57 X10^3/uL (0.83-4.51); Absolute Neutrophil Count 2.9 X10^3/uL (2.0-7.7); Basophil# 0.03 X10^3/uL; Basophil% 0.6 % (0-1); Eosinophil# 0.14 X10^3/uL; Eosinophils% 2.7 % (0-5); Hematocrit 45.5 % (40-54); Hemoglobin 14.6 g/dL (13.0-16.5); Lymphocyte # 1.57 X10^3/ul (0.83-4.51); Lymphocyte % 30.4 % (19-41); Mean Corp Hgb Conc 32.1 g/dL (32-36); Mean Corpuscular Hgb 29.7 pg (27.0-32.0); Mean Corpuscular Volume 92.7 fL (80-94); Mean Platelet Vol. 9.8 fl (6.2-12.0); Monocyte# 0.53 X10^3/uL; Monocyte% 10.3 % (0-10); NRBC Flagged by Analyzer 0 % (0-5); Neutrophil # 2.87 X10^3/uL (2.7-7.7); Neutrophil % 55.6 % (47-70); Platelet Count 237 K/mm3 (150-450); RBC Distribution Width CV 13.8 % (11.6-14.6); RBC Distribution Width SD 46.8 fl (35.1-43.9); Red Blood Count 4.91 M/mm3 (4.6-6.2); White Blood Count 5.2 K/mm3 (4.4-11.0)
[2022-09-12 11:21] LABS: Vitamin D,25 Hydroxy 65.4 ng/mL
[2022-09-12 11:28] LABS: AST(SGOT) 16 U/L (15-37); Alanine Aminotransfer ALT/SGPT 30 U/L (16-61); Albumin, Serum 3.8 g/dL (3.2-5.0); Alkaline Phosphatase 56 U/L (45-117); Anion Gap 6 (5-15); BUN 22 mg/dL (7-18); BUN/Creat Ratio 23.5 RATIO (10-20); Calcium,Total 9.2 mg/dL (8.5-10.1); Chloride 105 mmol/L (98-107); Cholesterol 151 mg/dL (200); Creatinine, Serum 0.94 mg/dL (0.70-1.30); EST Glomerular Filtration Rate 86 mL/min (>60); Est Glom Filt Rate - Afr Amer 105 mL/min (>60); Globulin 3.7 g/dL (2.2-4.2); Glucose 97 mg/dL (74-106); High Density Lipoprotein 57 mg/dL; Potassium 4.3 mmol/L (3.5-5.1); Protein, Total 7.5 g/dL (6.4-8.2); Sodium Level 139 mmol/L (136-145); Thyroid Stim Hormone (TSH) 1.42 uIU/mL (0.358-3.74); Triglycerides 65 mg/dL; Very Low Density Lipoprotein 13 mg/dL (5-40)
[2022-09-12 11:55] LABS: Hemoglobin A1c 5.9 % (3.8-5.6)
== END | disposition home or self-care (01) ==
LOC: LAB 09:13
PROVIDERS: PCP Internal Medicine; Referring Provider Internal Medicine; Visit Provider Internal Medicine
DX: E11.9 Type 2 diabetes mellitus without complications (principal); I10 Essential (primary) hypertension; K44.9 Diaphragmatic hernia without obstruction or gangrene; K21.9 Gastro-esophageal reflux disease without esophagitis; Z12.5 Encounter for screening for malignant neoplasm of prostate; E55.9 Vitamin D deficiency, unspecified
CPT/HCPCS: 36415; 80053; 80061; 82306; 83036; 84443; 85025

== ENCOUNTER → 2023-03-20 | Outpatient (CLI) | payer OTHER, SELFPAY ==
[2023-03-20 09:33] LABS: Absolute Lymphocyte Count 1.63 X10^3/uL (0.83-4.51); Absolute Neutrophil Count 3.3 X10^3/uL (2.0-7.7); Basophil# 0.03 X10^3/uL; Basophil% 0.5 % (0-1); Eosinophil# 0.31 X10^3/uL; Eosinophils% 5.3 % (0-5); Hematocrit 43.9 % (40-54); Hemoglobin 14.1 g/dL (13.0-16.5); Lymphocyte # 1.63 X10^3/ul (0.83-4.51); Lymphocyte % 28.1 % (19-41); Mean Corp Hgb Conc 32.1 g/dL (32-36); Mean Corpuscular Hgb 28.6 pg (27.0-32.0); Mean Platelet Vol. 9.9 fl (6.2-12.0); Monocyte# 0.52 X10^3/uL; NRBC Flagged by Analyzer 0 % (0-5); Neutrophil % 56.8 % (47-70); Platelet Count 248 K/mm3 (150-450); RBC Distribution Width CV 13.4 % (11.6-14.6); RBC Distribution Width SD 43.6 fl (35.1-43.9); Red Blood Count 4.93 M/mm3 (4.6-6.2); White Blood Count 5.8 K/mm3 (4.4-11.0)
[2023-03-20 10:09] LABS: Vitamin D,25 Hydroxy 61.8 ng/mL
[2023-03-20 10:34] LABS: ALB/GLOB Ratio 0.9 RATIO (0.9-2.4); AST(SGOT) 19 U/L (15-37); Alanine Aminotransfer ALT/SGPT 33 U/L (16-61); Albumin, Serum 3.7 g/dL (3.2-5.0); Alkaline Phosphatase 74 U/L (45-117); Anion Gap 2 (5-15); BUN 20 mg/dL (7-18); BUN/Creat Ratio 20.6 RATIO (10-20); Calcium,Total 9.1 mg/dL (8.5-10.1); Chloride 108 mmol/L (98-107); Cholesterol 161 mg/dL (200); Creatinine, Serum 0.97 mg/dL (0.70-1.30); EST Glomerular Filtration Rate 83 mL/min (>60); Est Glom Filt Rate - Afr Amer 100 mL/min (>60); Globulin 3.9 g/dL (2.2-4.2); Glucose 106 mg/dL (74-106); High Density Lipoprotein 51 mg/dL; Magnesium 2.6 mg/dL (1.6-2.6); PSA,Total - Annual Screen 0.94 ng/mL (0.00-4.00); Potassium 4.1 mmol/L (3.5-5.1); Protein, Total 7.6 g/dL (6.4-8.2); Sodium Level 136 mmol/L (136-145); Thyroid Stim Hormone (TSH) 1.94 uIU/mL (0.358-3.74); Triglycerides 106 mg/dL; Very Low Density Lipoprotein 21 mg/dL (5-40)
[2023-03-20 11:36] LABS: Hemoglobin A1c 5.8 % (3.8-5.6)
== END | disposition home or self-care (01) ==
PROVIDERS: PCP Internal Medicine; Referring Provider Internal Medicine; Visit Provider Internal Medicine
DX: E11.9 Type 2 diabetes mellitus without complications (principal); I10 Essential (primary) hypertension; E55.9 Vitamin D deficiency, unspecified; G47.33 Obstructive sleep apnea (adult) (pediatric); E66.09 Other obesity due to excess calories; L57.0 Actinic keratosis; Z13.220 Encounter for screening for lipoid disorders
CPT/HCPCS: 36415; 80053; 80061; 82306; 83036; 83735; 84153; 84443; 85025; G0103

== ENCOUNTER → 2024-01-21 | Outpatient (CLI) | payer OTHER, SELFPAY ==
[2024-01-21 07:36] LABS: Absolute Lymphocyte Count 1.71 X10^3/uL (0.83-4.51); Absolute Neutrophil Count 3.7 X10^3/uL (2.0-7.7); Basophil# 0.03 X10^3/uL; Basophil% 0.5 % (0-1); Eosinophil# 0.28 X10^3/uL; Eosinophils% 4.5 % (0-5); Hematocrit 44.6 % (40-54); Hemoglobin 14.2 g/dL (13.0-16.5); Lymphocyte # 1.71 X10^3/ul (0.83-4.51); Lymphocyte % 27.3 % (19-41); Mean Corp Hgb Conc 31.8 g/dL (32-36); Mean Corpuscular Hgb 28.3 pg (27.0-32.0); Mean Corpuscular Volume 88.8 fL (80-94); Mean Platelet Vol. 9.7 fl (6.2-12.0); Monocyte# 0.54 X10^3/uL; Monocyte% 8.6 % (0-10); NRBC Flagged by Analyzer 0 % (0-5); Neutrophil # 3.69 X10^3/uL (2.7-7.7); Neutrophil % 58.9 % (47-70); Platelet Count 240 K/mm3 (150-450); RBC Distribution Width CV 13.7 % (11.6-14.6); RBC Distribution Width SD 44.3 fl (35.1-43.9); Red Blood Count 5.02 M/mm3 (4.6-6.2); White Blood Count 6.3 K/mm3 (4.4-11.0)
[2024-01-21 08:07] LABS: Vitamin D,25 Hydroxy 54.5 ng/mL
[2024-01-21 08:13] LABS: ALB/GLOB Ratio 1.1 RATIO (0.9-2.4); AST(SGOT) 17 U/L (15-37); Alanine Aminotransfer ALT/SGPT 29 U/L (16-61); Albumin, Serum 3.7 g/dL (3.2-5.0); Alkaline Phosphatase 66 U/L (45-117); Anion Gap 4 (5-15); BUN 20 mg/dL (7-18); BUN/Creat Ratio 21.3 RATIO (10-20); Calcium,Total 8.9 mg/dL (8.5-10.1); Chloride 109 mmol/L (98-107); Cholesterol 144 mg/dL (200); Creatinine, Serum 0.94 mg/dL (0.70-1.30); EST Glomerular Filtration Rate 86 mL/min (>60); Est Glom Filt Rate - Afr Amer 104 mL/min (>60); Globulin 3.5 g/dL (2.2-4.2); Glucose 102 mg/dL (74-106); High Density Lipoprotein 53 mg/dL; Magnesium 1.9 mg/dL (1.6-2.6); Protein, Total 7.2 g/dL (6.4-8.2); Sodium Level 141 mmol/L (136-145); Triglycerides 72 mg/dL; Very Low Density Lipoprotein 14 mg/dL (5-40)
== END | disposition home or self-care (01) ==
LOC: LAB 07:04
PROVIDERS: PCP Internal Medicine; Referring Provider Internal Medicine; Visit Provider Internal Medicine
DX: Z13.220 Encounter for screening for lipoid disorders (principal); E11.9 Type 2 diabetes mellitus without complications; I10 Essential (primary) hypertension; G47.33 Obstructive sleep apnea (adult) (pediatric); K21.9 Gastro-esophageal reflux disease without esophagitis; E55.9 Vitamin D deficiency, unspecified
CPT/HCPCS: 36415; 80053; 80061; 82306; 83036; 83735; 84443; 85025

== ENCOUNTER → 2024-07-16 | Outpatient (CLI) | payer MEDICARE, OTHER, SELFPAY ==
[2024-07-16 10:31] LABS: Absolute Neutrophil Count 3.8 X10^3/uL (2.0-7.7); Basophil# 0.04 X10^3/uL; Basophil% 0.6 % (0-1); Eosinophil# 0.24 X10^3/uL; Eosinophils% 3.6 % (0-5); Hematocrit 43.2 % (40-54); Hemoglobin 14.2 g/dL (13.0-16.5); Lymphocyte % 30.1 % (19-41); Mean Corp Hgb Conc 32.9 g/dL (32-36); Mean Corpuscular Hgb 29.5 pg (27.0-32.0); Mean Corpuscular Volume 89.8 fL (80-94); Monocyte# 0.51 X10^3/uL; Monocyte% 7.7 % (0-10); NRBC Flagged by Analyzer 0 % (0-5); Neutrophil # 3.83 X10^3/uL (2.7-7.7); Neutrophil % 57.7 % (47-70); Platelet Count 236 K/mm3 (150-450); RBC Distribution Width CV 13.6 % (11.6-14.6); Red Blood Count 4.81 M/mm3 (4.6-6.2); White Blood Count 6.6 K/mm3 (4.4-11.0)
[2024-07-16 13:36] LABS: ALB/GLOB Ratio 1.4 RATIO (0.9-2.4); AST(SGOT) 23 U/L (<=37); Alanine Aminotransfer ALT/SGPT 21 U/L (<=46); Albumin, Serum 4.2 g/dL (3.4-4.8); Alkaline Phosphatase 63 U/L (40-129); Anion Gap 12 (5-15); BUN 15 mg/dL (4-19); BUN/Creat Ratio 15.7 RATIO (10-20); Calcium,Total 9.3 mg/dL (7.6-11.0); Carbon Dioxide 24.4 mmol/L (21.0-32.0); Chloride 103 mmol/L (98-108); Cholesterol 163 mg/dL (<=200); Creatinine, Serum 0.98 mg/dL (0.70-1.20); EST Glomerular Filtration Rate 86 (>60); Glucose 86 mg/dL (70-99); High Density Lipoprotein 49 mg/dL; Low Density Lipoprotein Calc. 94 mg/dL; PSA,Total - Annual Screen 0.76 ng/mL (0.02-4.00); Potassium 4.3 mmol/L (3.3-5.1); Protein, Total 7.2 g/dL (5.9-8.4); Sodium Level 140 mmol/L (133-145); Total Bilirubin 0.31 mg/dL (0.00-1.30); Triglycerides 99 mg/dL; Very Low Density Lipoprotein 20 mg/dL (5-40); Vitamin D,25 Hydroxy 49.3 ng/mL (30-100); cholesterol:hdl ratio screen 3.32
== END | disposition home or self-care (01) ==
PROVIDERS: PCP Internal Medicine; Referring Provider Internal Medicine; Visit Provider Internal Medicine
DX: E11.65 Type 2 diabetes mellitus with hyperglycemia (principal); E66.813 Obesity, class 3; Z68.41 Body mass index [BMI] 40.0-44.9, adult; G47.33 Obstructive sleep apnea (adult) (pediatric); E55.9 Vitamin D deficiency, unspecified; K21.9 Gastro-esophageal reflux disease without esophagitis; I10 Essential (primary) hypertension; Z12.5 Encounter for screening for malignant neoplasm of prostate
CPT/HCPCS: 36415; 80053; 80061; 82306; 83036; 84153; 84443; 85025; G0103

== ENCOUNTER → 2024-08-12 | Outpatient (CLI) | payer MEDICARE, OTHER, SELFPAY ==
--- NOTE | 2024-08-12 11:25 | RAD_ITS ---
PROCEDURE: TIBIA FIBULA 2 VIEWS 08/12/2024 REASON FOR EXAM: CALCINOSIS CUTIS TECHNIQUE: TIBIA FIBULA 2 VIEWS FINDINGS: RIGHT CALCANEUS: Normal bone mineralization. No evidence of fracture. No focal osseous lesion. Subtalar joint is unremarkable. Alignment is preserved. Scattered soft tissue calcifications seen in the leg, likely phleboliths. No cutaneous calcification identified RAD/Tibia & Fibula 2 Views IMPRESSION: Soft tissue calcifications, nonspecified, likely phleboliths. The calcificatio ns are in the sub cutaneous fat overlying the muscles No evidence of skin calcification as would be seen with calcinosis cutis Reading [facility]
== END | disposition home or self-care (01) ==
LOC: RAD 11:05
PROVIDERS: PCP Internal Medicine; Referring Provider Podiatrist; Visit Provider Podiatrist
DX: L94.2 Calcinosis cutis (principal)
CPT/HCPCS: 73590

== ENCOUNTER → 2025-01-25 | Outpatient (CLI) | payer MEDICARE, OTHER, SELFPAY ==
--- OUTSIDE RECORDS SUMMARY | 2025-01-25 07:05 | XMS RPT_ITS | CCD ---
Author Organization [facility] Care Team Providers Care Coding Tech Name Role Phone Cari Portillo Unavailable Andrea Garcia Unavailable Long Colmenares Unavailable [facility], [facility] Unavailable Fabio Robb Unavailable Markel Montes Unavailable Paco Schaffer Unavailable Graham Reyna Unavailable Yariel Palmer Unavailable Ca Valenzuela Unavailable Fredi Perez Unavailable Max Tang Unavailable Libby Rodriguez Unavailable Unavailable Rebekah Neff Unavailable Unavailable Unavailable Unavailable Ca Valenzuela Unavailable Uzair Tay Unavailable Kole Key Unavailable [facility] Unavailable long, caterina Unavailable Unavailable Farrukh Francis Unavailable Marichuy Meade Unavailable Unavailable Cari Portillo Attending Unavailable Cari Portillo Consulting Unavailable Cari Portillo Referring Unavailable Ruchi Valenzuela Unavailable Geronimo Mendoza Unavailable Unavailable WADE Monterroso Unavailable Unavailable caterina Matos Unavailable Unavailable Nnamdi Laguna Unavailable [phone] Long, Kassi Schrader Unavailable Unavailable Erika Uriarte Unavailable Shannan Hawley Unavailable Unavailable Slarb, Myla Unavailable Unavailable Ruchi Valenzuela Unavailable Yariel Palmer Unavailable Marichuy Meade Unavailable Unavailable Omid Lyssa Unavailable Unavailable Colin Plata Unavailable Tony Geronimo Unavailable Unavailable Florian Ruiz Unavailable Dr. Latesha Zafar Primary Care Provider Dr. Latesha Zafar Referring Provider [phone] Vianca WINDOW SHADE RING SEWER, WINDOW SHADE RING SEWER-C Neyda Attending Provider Becky CLEMENTS, [place] Eber Montiel Attending Provider Dr. Latesha Zafar Attending Provider [phone] Dr. Latesha Zafar Primary Care Provider Dr. Latesha Zafar Referring Provider [phone] Maury WINDOW SHADE RING SEWER, WINDOW SHADE RING SEWER-C Carmen Montiel Attending Provider [phone] Dr. Colin Plata Attending Provider Dr. Henry Robertson Attending Provider [phone] FriendDr. Figueroa Other Provider [phone] MD Latesha Zafar Ref[facility] Primary Care Provider Dr. Latesha Zafar Attending Provider Dr. Latesha Zafar Primary Care Provider Dr. Latesha Zafar Referring Provider Dr. Colin Plata Attending Provider [phone] Latesha Zafar Attending Provider Dr. Latesha Zafar MD Primary Care Provider Dr. Latesha Zafar MD Attending Provider Dr. Latesha Zafar MD Referring Provider Bianca DPM, Dr. Hopper Attending Provider Bianca [place], Dr. Hopper Referring Provider [phone] Elzbieta Salazar Attending Provider [phone] Andrade, Latesha Attending Unavailable Andrade, Latesha Referring Unavailable Andrade, Latesha Primary Care Unavailable Horn, Ruchi Attending Unavailable Horn, Ruchi Referring Unavailable Andrade, Latesha Primary Care Unavailable Andrade, Latesha Attending Unavailable Andrade, Latesha Referring Unavailable Andrade, Latesha Primary Care Unavailable Vianca LEZAMA, Neyda Attending Unavailable Andrade, Latesha Referring Unavailable Andrade, Latesha Primary Care Unavailable Andrade, Latesha Attending Unavailable Andrade, Latesha Primary Care Unavailable Andrade, Latesha Referring Unavailable Andrade, Latesha Primary Care Unavailable Vianca LEZAMA, Neyda Attending Unavailable Andrade, Latesha Primary Care Unavailable Andrade, Latesha Attending Unavailable Horn, Ruchi Referring Unavailable Elzbieta Lee Attending Unavailable Andrade, Latesha Primary Care Unavailable Elzbieta Salazar Attending Physician [phone] Bianca [place], Dr. Hopper Referring Provider [phone] Andrade SINGH, Dr. Charlton Primary Care Physician Andrade SINGH, Dr. Charlton Referring Provider Vianca LEZAMA-Neyda Gallego Attending Physician Allergies Allergy Classification Reported Allergen(s) Allergy Type Date of Onset Reaction(s) Facility (20 sources) Acetaminophen / HYDROcodone; Translations: [Vicodin *ANALGESICS - OPIOID*] Drug Allergy [facility] Work Phone: (20 sources) gabapentin; Translations: [Gabapentin *ANTICONVULSANTS* ] Drug Allergy 2 [facility] Work Phone: (20 sources) Sulfonamides (Antibiotic); Translations: [Sulfa Drugs] allergy to substance [facility] Work Phone: (20 sources) Codeine/Codeine Derivatives; Translations: [Codeine/Codeine Derivatives] allergy to substance [facility] Work Phone: (8 sources) Acetaminophen Drug Allergy 2 [facility] (10 sources) Codeine Drug Allergy 2 [facility] (10 sources) HYDROcodone Drug Allergy 2 unknown [facility] (11 sources) Sulfonamides (Antibiotic); Translations: [Sulfa (Sulfonamide Antibiotics)] Allergy to substance 2 [facility] (2 sources) BAND AID Allergy to substance 2 [facility] Work Phone: (9 sources) Adhesive Tape; Translations: [adhesive tape] Allergy to substance 2 [facility] Comment on above: FROM BAND-AID (1 source) Acetaminophen Drug Allergy 5 [facility] (1 source) Codeine Drug Allergy 5 [facility] (1 source) gabapentin Drug Allergy 5 [facility] (1 source) HYDROcodone Drug Allergy 5 [facility] Medications Current Medications Medication Drug Class(es) Dates Sig (Normalized) Sig (Original) 8 hr acetaminophen 650 mg extended release oral tablet (10 sources) Start: 03-22-2020 Acetaminophen (Tylenol Arthritis Pain) 650 mg tablet extended release Active 650 mg PO NEEDED as needed for Pain March 22, 2020 12:00am Complies with drug therapy aspirin 81 mg delayed release oral tablet (20 sources) Platelet Aggregation Inhibitor, Nonsteroidal Anti-inflammatory Drug Start: 06-04-2018 Aspirin (Adult Low Dose Aspirin) 81 mg tablet,delayed release (DR/EC) Active 81 mg PO DAILY June 03, 2018 11:00pm Complies with drug therapy Start: 04-20-2016 End: 03-29-2017 take 1 tablet by mouth once daily Aspirin 81 MG tablet Discontinued 81 mg PO DAILY April 20, 2016 12:00am March 29, 2017 5:03pm Start: 01-13-2007 End: 06-09-2007 take 1 tablet by mouth once daily ASPIRIN BUFFERED, 325MG (Oral Tablet) 1 (one) Tablet qd for 0 days Refills: 0 Ordered: 13-Jan-2007 Fay Adamson Start : 13-Jan-2007 End : 09-Jun-2007 Discontinued take 1 tablet by anamaria th once daily ASPIRIN LOW DOSE, 81MG (Oral Tablet) 1 tab qd for 0 days Refills: 0 Ordered: 08-Feb-2009 Karyn Hunter Active betamethasone 0.5 mg/ml / clotrimazole 10 mg/ml topical cream (2 sources) Azole Antifungal, Corticosteroid Start: 06-29-2021 Clotrimazole-Betamethasone Active 1 APPLIC TOPICAL TWICE A DAY 45 June 29, 2021 12:00am cholecalciferol 0.025 mg oral capsule (12 sources) Vitamin D Start: 09-07-2024 take 1 capsule by mouth once daily Cholecalciferol (Vitamin D3) 25 mcg (1,000 unit) capsule Active 2000 U PO DAILY September 07, 2024 9:29am Complies with drug therapy Start: 03-29-2017 End: 09-07-2024 take 2 capsules by mouth once daily Cholecalciferol (Vitamin D3) 1,000 unit capsule Discontinued 2000 U PO DAILY March 29, 2017 12:00am September 07, 2024 9:32am Start: 03-29-2017 take 2000 [IU] by mo [facility] once daily Cholecalciferol (Vitamin D3) Active 2000 UNIT PO DAILY March 29, 2017 12:00am diphenhydrAMINE hydrochloride 25 mg oral capsule (20 sources) Histamine-1 Receptor Antagonist Start: 09-07-2024 take 1 capsule by mouth at bedtime as needed Diphenhydramine Hcl (Allergy (Diphenhydramine)) 25 mg capsule Active 25 mg PO AT BEDTIME as needed September 06, 2024 11:00pm Complies with drug therapy Start: 08-05-2018 End: 06-29-2020 take 2 tablets by mouth at bedtime Diphenhydramine Hcl 25 MG tablet Discontinued 50 mg PO AT BEDTIME August 04, 2018 11:00pm June 29, 2020 12:08pm SLEEP Start: 08-05-2018 End: 06-29-2020 take 50 mg by mouth at bedtime Diphenhydramine Hcl Dis continued 50 MG PO AT BEDTIME August 04, 2018 11:00pm June 29, 2020 12:08pm zzzquil Active C omments: pure zzzs 2 gummies at hs Comment on above: pure zzzs 2 gummies at hs DULoxetine 60 mg delayed release oral capsule (20 sources) Serotonin and Norepinephrine Reuptake Inhibitor Start: take 1 capsule by mouth once daily Duloxetine 60 mg capsule,delayed release(DR/EC) Active 60 mg PO daily September 06, 2024 11:00pm Complies with drug therapy Start: 04-13-2020 take 1 capsule by mo uth once daily in the morning Cymbalta 30 MG Oral Capsule Delayed Release Particles 1 (one) Capsule qam for 0 days Quantity: 30 {Capsule} Refills: 1 Ordered: 25-May-2020 Erika Uriarte CNP Start : 25-May-2020 Active Start: 07-29-2019 take 3 capsules by m outh once in the morning Cymbalta 60 MG Oral Capsule Delayed Release Particles 1 (one) Capsule DR Part q am for 0 days Quantity: 90 {Capsule} Refills: 3 Ordered: 29-Jul-2019 Marichuy Meade CMA Start : 29-Jul-2019 Active Start: 08-18-2018 Cymbalta 60 MG Oral Capsule Delayed Release Particles 1 (one) Capsule DR Part q am for 0 days Quantity: 90 {Capsule} Refills: 3 Ordered: 18-Aug-2018 Cari Portillo DO, DO, Kathleen Start : 18-Aug-2018 Active Start: 07-16-2018 Cymbalta 60 MG Oral Capsule Delayed Release Particles 1 (one) Capsule DR Part q am for 0 days Quantity: 90 {Capsule} Refills: 3 Ordered: 16-Jul-2018 Cari Portillo DO, DO, Kathleen Start : 16-Jul-2018 Active Start: 07-03-2017 take 9 capsules by m outh once in the morning Cymbalta 60 MG Oral Capsule Delayed Release Particles 1 (one) Capsule DR Part q am for 0 days Quantity: 90 {Capsule} Refills: 3 Ordered: 03-Jul-2017 Cari Portillo DO, DO, Kathleen Start : 03-Jul-2017 Active Start: 04-20-2016 End: 06-23-2020 take 1 capsule by mouth once daily Duloxetine 60 MG capsule Discontinued 60 mg PO DAILY April 20, 2016 12:00am June 23, 2020 10:24am irbesartan 150 mg oral tablet (20 sources) Angiotensin 2 Receptor Chel Start: 09-07-2024 take 1 tablet by mouth once daily Irbesartan (Avapro) 150 mg tablet Active 150 mg PO daily September 06, 2024 11:00pm Complies with drug therapy Start: 06-12-2018 End: 2018 take 1 tablet by mouth once daily Avapro 150 MG Oral Tablet 1 (one) Tablet Tablet qd for 0 days Quantity: 30 {Tablet} Refills: 3 Ordered: 21-Aug-2018 Shannan Hawley Start : 12-Jun-2018 End : 21-Aug-2018 Inactive Start: 10-02-2017 End: 03-12-2018 take 1 tablet by mouth once daily Avapro 150 MG Oral Tablet 1 (one) Tablet Tablet qd for 0 days Quantity: 30 {Tablet} Refills: 3 Ordered: 12-Mar-2018 Libby Rodriguez STACIA Start : 12-Feb-2018 End : 12-Mar-2018 Inactive Start: 10-15-2016 End: 10-15-2016 take 1 tablet by mouth once daily Avapro 150 MG Oral Tablet 1 (one) Tablet qd for 0 days Quantity: 90 {Tablet} Refills: 3 Ordered: 15-Oct-2016 Cari Portillo DO, DO, Kathleen Start : 15-Oct-2016 End : 15-Oct-2016 Discontinued Start: 08-17-2015 End: 08-17-2015 take 1 tablet by mouth once daily AVAPRO, 300MG (Oral Tablet) 1 (one) Tablet daily for 0 days Quantity: 90 {Tablet} Refills: 2 Ordered: 17-Aug-2015 Cari Portillo DO, DO, Kathleen Start : 17-Aug-2015 End : 17-Aug-2015 Discontinued Comments: with wt los Comment on above: with wt los on back order levocetirizine dihydrochloride 5 mg oral tablet (20 sources) Histamine-1 Receptor Antagonist Start: 09-08-19 take 1 tablet by mouth once daily in the evening Levocetirizine 5 mg tablet Active 5 mg PO EVERY EVENING September 06, 2024 11:00pm Complies with drug therapy Start: 04-20-2016 End: 06-23-2020 take 1 tablet by mouth once daily Levocetirizine 5 MG tablet Discontinued 5 mg PO DAILY April 20, 2016 12:00am June 23, 2020 10:24am Comment on above: This order discontin ued per [facility]. losartan potassium 50 mg oral tablet (20 sources) Angiotensin 2 Receptor Chel Start: 12-28-2024 take 1 tablet by mouth once daily Start: 06-29-2020 End: 12-28-2024 take 1 tablet by mouth once daily Losartan 50 mg tablet Discontinued 50 mg PO DAILY 90 3 March 20, 2023 8:06am December 18, 2023 10:20am Start: 07-16-2018 End: 06-23-2020 take 1 tablet by mouth once daily Losartan 50 MG tablet Discontinued 50 mg PO DAILY August 04, 2018 11:00pm June 23, 2020 10:22am Comment on above: wt gain - retains fl uid so will give back with diuretic Completed/Discontinued Medications Medication Drug Class(es) Dates Sig (Normalized) Sig (Original) acetaminophen 325 mg / HYDROcodone bitartrate 5 mg oral tablet (10 sources) Opioid Agonist Start: 08-08-2018 End: 08-15-2018 Hydrocodone-Acetamino phen 1 TABLET tablet Discontinued 1 - 2 {tbl} PO EVERY 6 HOURS NEEDED as needed for Pain 40 5 0 August 07, 2018 11:00pm August 11, 2018 11:00pm August 14, 2018 11:08pm Postoperative pain Other acute postprocedural pain Start: 08-08-2018 End: 08-15-2018 take 1 tablet by mouth every six hours as needed Hydrocodone-Acetaminophen Discontinued 1 - 2 TABLET PO EVERY 6 HOURS NEEDED 40 5 August 07, 2018 11:00pm August 14, 2018 11:08pm acetaminophen 325 mg / oxyCODONE hydrochloride 5 mg oral tablet (20 sources) Opioid Agonist Start: 10-22-2018 End: 10-27-2018 Oxycodone-Acetaminophen 1 TABLET tablet Discontinued 1 - 2 {tbl} PO EVERY 6 HOURS NEEDED as needed for Pain 28 5 0 October 22, 2018 October 25, 2018 11:00pm October 26, 2018 11:08pm Postoperative pain Other acute postprocedural pain Start: 10-22-2018 End: 10-27-2018 take 1 tablet by mouth every six hours as needed Oxycodone-Acetaminophen Discontinued 1 - 2 TABLET PO EVERY 6 HOURS NEEDED 28 5 October 22, 2018 October 26, 2018 11:08pm acetaminophen 325 mg / traMADol hydrochloride 37.5 mg oral tablet (20 sources) Opioid Agonist Start: 11-05-2005 End: 03-18-2006 ULTRACET, 37.5-325MG (Oral Tablet) 2 tabs Tablet qd,prn for 0 days Quantity: 60 {Tablet} Refills: 3 Ordered: 23-Mar-2008 Fay Adamson Start : 05-Nov-2005 End : 18-Mar-2006 Inactive Albuterol (20 sources) beta2-Adrenergic Agonist Start: 04-20-2016 End: 03-29-2017 Albuterol Sulfate 8.5 GM HFA aerosol inhaler Discontinued 8.5 g IH 4 TIMES DAILY NEEDED as needed for Asthma April 20, 2016 12:00am March 29, 2017 5:02pm Start: 04-20-2016 End: 03-29-2017 Albuterol Sulfate 8.5 GM HFA aerosol inhaler Discontinued 8.5 g IH 4 TIMES DAILY NEEDED as needed for Asthma April 20, 2016 1:00am March 29, 2017 6:02pm Start: 02-07-2015 End: 03-12-2018 ProAir HFA 108 (90 Base) MCG /ACT Inhalation Aerosol Solution 2 (two) Aerosol Soln Aerosol Soln puffs qid prn for 0 days Quantity: 1 {Inhaler} Refills: 3 Ordered: 12-Mar-2018 Libby Rodriguez RN Start : 07-Feb-2015 End : 12-Mar-2018 Inactive amoxicillin 875 mg / clavulanate 125 mg oral tablet (20 sources) Penicillin-class Antibacterial Start: 06-29-2021 End: 09-20-2021 Amoxicillin-Pot Clavulanate 875-125 mg tablet Discontinued 1 {tbl} PO TWICE A DAY June 28, 2021 11:00pm September 20, 2021 7:22am Start: 06-29-2021 End: 09-20-2021 take 1 tablet by mouth twice daily Amoxicillin-Pot Clavulanate Discontinued 1 TABLET PO TWICE A DAY June 28, 2021 11:00pm September 20, 2021 7:22am Start: 03-18-2020 End: 03-28-2020 Amoxicillin-Pot Clavulanate (Augmentin) 875-125 mg tablet Discontinued 1 {tbl} PO Q12H March 18, 2020 12:00am March 27, 2020 12:00am March 28, 2020 12:03am Acute sinusitis, unspecified atorvastatin 10 mg oral tablet (20 sources) HMG-CoA Reductase Inhibitor Start: 01-02-2006 End: 06-24-2006 LIPITOR, 10MG (Oral Tablet) 1 tab Tablet qd for 0 days Quantity: 30 {Tablet} Refills: 3 Ordered: 02-Jan-2006 Fay Adamson Start : 02-Jan-2006 End : 24-Jun-2006 Discontinued azithromycin 250 mg oral tablet (20 sources) Macrolide Antimicrobial Start: 02-22-2014 End: 06-07-2014 ZITHROMAX Z-BOWEN, 250MG (Oral Tablet) 1 (one) Tablet tad for 0 days Quantity: 1 {Package} Refills: 0 Ordered: 07-Jun-2014 Karyn Hunter Start : 22-Feb-2014 End : 07-Jun-2014 Discontinued budesonide 0.032 mg/actuat metered dose nasal spray (20 sources) Corticosteroid Start: 12-29-2008 End: 05-04-2011 RHINOCORT AQUA, 32MCG/ACT (Nasal Suspension) 1 for 0 days Refills: 0 Ordered: 04-May-2011 Naye Crain LPN Start : 29-Dec-2008 End : 04-May-2011 Inactive cetirizine hydrochloride 10 mg oral tablet (20 sources) Histamine-1 Receptor Antagonist Start: 06-09-2007 End: 06-09-2007 ZYRTEC, 10MG (Oral Tablet) 1 tab Tablet qd for 0 days Quantity: 90 {Tablet} Refills: 3 Ordered: 09-Jun-2007 Fay Adamson Start : 09-Jun-2007 End : 09-Jun-2007 Discontinued citalopram 10 mg oral tablet (20 sources) Serotonin Reuptake Inhibitor Start: 01-29-2011 End: 01-29-2011 take 1 tablet by mouth once at bedtime CELEXA, 10MG (Oral Tablet) 1 (one) Tablet q hs for 0 days Quantity: 90 {Tablet} Refills: 3 Ordered: 29-Jan-2011 Kathie Sen DO Start : 29-Jan-2011 End : 29-Jan-2011 Discontinued 24 hr clarithromycin 500 mg extended release oral tablet (20 sources) Macrolide Antimicrobial Start: 07-14-2012 End: 07-24-2012 take 2 tablets by mouth once daily BIAXIN XL, 500MG (Oral Tablet Extended Release 24 Hour) 2 (two) Tablet ER 24HR daily for 10 days Quantity: 20 {Tablet_ER_24HR} Refills: 0 Ordered: 14-Jul-2012 Erika Uriarte CNP Start : 14-Jul-2012 End : 24-Jul-2012 Inactive Start: 07-14-2012 End: 07-24-2012 take 2 tablets by mouth once daily BIAXIN XL, 500MG (Oral Tablet Extended Release 24 Hour) 2 (two) Tablet ER 24HR daily for 10 days Quantity: 20 {Tablet_ER_24HR} Refills: 0 Ordered: 14-Jul-2012 Laura CHLOEErika Start : 14-Jul-2012 End : 24-Jul-2012 Inactive clotrimazole 10 mg oral lozenge (20 sources) Azole Antifungal Start: 05-04-2011 End: 05-14-2011 MYCELEX, 10MG (Mouth/Throat Cat) 1 Cat 5 x daily for 10 days Quantity: 50 {Cat} Refills: 0 Ordered: 04-May-2011 Laura CHLOEErika Start : 04-May-2011 End : 14-May-2011 Inactive colloidal oatmeal 10 mg/ml topical cream (20 sources) Non-Standardized Food Allergenic Extract, Non-Standardized Plant Allergenic Extract Start: 05-16-2016 End: 02-27-2017 Aveeno Eczema Therapy 1 % External Cream 1 (one) Cream Cream daily for 0 days Quantity: 1 {Bottle} Refills: 0 Ordered: 27-Feb-2017 Kassi Brennan RN Start : 16-May-2016 End : 27-Feb-2017 Inactive cyclobenzaprine hydrochloride 10 mg oral tablet (20 sources) Muscle Relaxant Start: 10-31-2011 End: 10-31-2011 take 1 tablet by mouth three times daily as needed FLEXERIL, 10MG (Oral Tablet) 1 Tablet tid prn for 0 days Quantity: 60 {Tablet} Refills: 0 Ordered: 31-Oct-2011 Karyn Hunter Start : 31-Oct-2011 End : 31-Oct-2011 Discontinued dexamethasone 1 mg/ml / neomycin 3.5 mg/ml / polymyxin b 29974 unt/ml ophthalmic suspension (20 sources) Aminoglycoside Antibacterial, Polymyxin-class Antibacterial, Corticosteroid NEOMYCIN-POLYMYXIN -DEXAMETH, 0.1% (Ophthalmic Suspension) apply ointment to each eye q hs (0.1 %) Inactive dextran 70 1 mg/ml / hypromellose 3 mg/ml ophthalmic solution (20 sources) Plasma Volume Intern Retail Start: 05-16-2016 End: 02-27-2017 Artificial Tears 0.1-0.3 % Ophthalmic Solution 1 (one) Solution Solution tid for 0 days Quantity: 1 {Bottle} Refills: 0 Ordered: 27-Feb-2017 Kassi Brennan RN Start : 16-May-2016 End : 27-Feb-2017 Inactive diazePAM 5 mg oral tablet (20 sources) Benzodiazepine Start: 03-28-2016 End: 03-12-2018 take 0.5-1 tablets by mouth twice daily as needed for muscle spasms Valium 5 MG Oral Tablet 1/2-1 Tablet Tablet bid prn muscle spasm for 0 days Quantity: 30 {Tablet} Refills: 0 Ordered: 12-Mar-2018 Libby Rodriguez RN Start : 28-Mar-2016 End : 12-Mar-2018 Inactive Comments: thirty Comment on above: thirty doxepin hydrochloride 25 mg oral capsule (10 sources) Tricyclic Antidepressant Start: 06-29-2020 End: 08-17-2020 take 1 capsule by mouth at bedtime Doxepin 25 mg capsule Discontinued 25 mg PO AT BEDTIME June 28, 2020 11:00pm August 17, 2020 9:14am doxycycline hyclate 100 mg oral tablet (20 sources) Tetracycline-class Drug Start: 02-25-2020 End: 03-06-2020 take 1 tablet by mouth twice daily Doxycycline Hyclate 100 MG Oral Tablet 1 (one) Tablet bid for 10 days Quantity: 20 {Tablet} Refills: 0 Ordered: 25-Feb-2020 Cari Portillo DO, DO, Kathleen Start : 25-Feb-2020 End : 06-Mar-2020 Inactive Start: 02-16-2020 End: 02-26-2020 take 1 capsule by mouth twice daily Doxycycline Hyclate 100 mg capsule Discontinued 100 mg PO TWICE A DAY 20 10 February 16, 2020 12:00am February 25, 2020 12:00am February 26, 2020 12:03am Acute sinusitis, unspecified erythromycin 0.005 mg/mg ophthalmic ointment (10 sources) Macrolide, Macrolide Antimicrobial Start: 12-25-2020 End: 09-20-2021 Erythromycin 5 mg/gram (0.5 %) ointment Discontinued 0.5 [in_us] OPHTHALMIC TWICE A DAY December 24, 2020 11:00pm September 20, 2021 7:22am Start: 12-25-2020 End: 09-20-2021 Erythromycin Discontinued 0. 5 INCH OPHTHALMIC TWICE A DAY December 24, 2020 11:00pm September 20, 2021 7:22am escitalopram 10 mg oral tablet (20 sources) Serotonin Reuptake Inhibitor Start: 06-09-2007 End: 06-09-2007 take 1 tablet by mouth once at bedtime LEXAPRO, 10MG (Oral Tablet) 1 (one) Tablet q hs for 0 days Quantity: 30 {Tablet} Refills: 3 Ordered: 09-Jun-2007 Fay Adamson Start : 09-Jun-2007 End : 09-Jun-2007 Discontinued 1 ml etanercept 50 mg/ml prefilled syringe (20 sources) Tumor Necrosis Factor Chel Start: 04-20-2016 End: 06-04-2018 Etanercept 50 MG/ML syringe Discontinued 50 mg SC Q7D March 29, 2017 5:03pm June 04, 2018 7:10am Start: 04-20-2016 End: 06-04-2018 Etanercept Discontinued 50 M G SC Q7D March 29, 2017 5:03pm June 04, 2018 7:10am 24 hr etodolac 400 mg extended release oral tablet (20 sources) Nonsteroidal Anti-inflammatory Drug Start: 07-03-2017 End: 11-06-2017 take 2 tablets by mouth once daily at mealtime Etodolac ER 400 MG Oral Tablet Extended Release 24 Hour 2 (two) Tablet Tablet qd with food for 0 days Quantity: 20 {Tablet} Refills: 0 Ordered: 06-Nov-2017 Libby Rodriguez RN Start : 03-Jul-2017 End : 06-Nov-2017 Inactive Start: 10-05-2014 End: 03-29-2017 take 1 tablet by mouth twice daily Etodolac 500 MG tablet Discontinued 500 mg PO TWICE A DAY April 20, 2016 12:00am March 29, 2017 5:03pm Comment on above: Dr. Edmund rosenthalxofenadine hydrochloride 180 mg oral tablet (20 sources) Histamine-1 Receptor Antagonist Start: 008 End: 009 take 1 tablet by mouth once daily TRAMAINE, 180MG (Oral Tablet) 1 (one) Tablet qd for 0 days Quantity: 90 {Tablet} Refills: 3 Ordered: 28-Oct-2007 Fay Adamson Start : 28-Oct-2007 End : 30-Nov-2008 Inactive 12 hr fexofenadine hydrochloride 60 mg / pseudoephedrine hydrochloride 120 mg extended release oral tablet (20 sources) alpha-Adrenergic Agonist, Histamine-1 Receptor Antagonist Start: take 60-120 mg by mouth every twelve hours TRAMAINE-D 12 HOUR, 60-120MG (Oral Tablet Extended Release 12 Hour) 1 for 0 days Refills: 0 Ordered: 09-Sep-2009 WADE Monterroso LPN Start : 29-Dec-2008 Inactive fluticasone propionate 0.05 mg/actuat metered dose nasal spray (20 sources) Corticosteroid Start: 018 End: 019 Flonase 50 MCG/ACT Nasal Suspension 2 (two) Puff(s) daily for 0 days Quantity: 1 {Aubrey} Refills: 0 Ordered: 12-Mar-2018 Libby Rodriguez RN Start : 09-Oct-2017 End : 12-Mar-2018 Inactive Fluticasone Propion-Salmeterol (20 sources) Corticosteroid, beta2-Adrenergic Agonist Start: 017 End: 018 take 1 puff(s) by inhalation twice daily Fluticasone Propion-Salmeterol 1 PUFF inhaler Discontinued 1 NMA INHALATION TWICE A DAY April 20, 2016 12:00am March 29, 2017 5:04pm Start: 04-20-2016 End: 03-29-2017 take 1 puff(s) by inhalation twice daily Fluticasone Propion-Salmeterol 1 PUFF inhaler Discontinued 1 NMA INHALATION TWICE A DAY April 20, 2016 1:00am March 29, 2017 6:04pm Start: 04-20-2016 End: 03-29-2017 take 1 puff(s) by inhalation twice daily Fluticasone Propion-Salmeterol Discontinued 1 PUFF INHALATION TWICE A DAY April 20, 2016 12:00am March 29, 2017 5:04pm Start: 04-20-2016 End: 03-29-2017 take 1 puff(s) by inhalation twice daily Fluticasone Propion-Salmeterol Discontinued 1 PUFF INHALATION TWICE A DAY April 20, 2016 1:00am March 29, 2017 6:04pm Start: 02-07-2015 End: 03-12-2018 take 1 puff(s) by inhalation twice daily Advair Diskus 250-50 MCG/DOSE Inhalation Aerosol Powder Breath Activated 1 puff Misc bid for 0 days Quantity: 3 {Inhaler} Refills: 3 Ordered: 12-Mar-2018 Libby Rodriguez RN Start : 07-Feb-2015 End : 12-Mar-2018 Inactive folic acid 1 mg oral tablet (20 sources) Start: 12-02-2012 End: 06-04-2018 take 1 tablet by mouth twice daily at mealtime Folic Acid 1 MG tablet Discontinued 1 mg PO TWICE DAILY WITH MEALS April 20, 2016 12:00am June 04, 2018 7:10am furosemide 40 mg oral tablet (20 sources) Loop Diuretic Start: 03-25-2019 End: 03-25-2019 Lasix 40 MG Oral Tablet 1 (one) Tablet dialy x 4 days for 0 days Quantity: 10 {Tablet} Refills: 0 Ordered: 25-Mar-2019 Cari Portillo DO, DO, Kathleen Start : 25-Mar-2019 End : 25-Mar-2019 Discontinued Comments: Ok dispense 10 Start: 10-29-2018 Lasix 40 MG Or al Tablet 1 (one) Tablet dialy x 4 days for 0 days Quantity: 15 {Tablet} Refills: 0 Ordered: 29-Oct-2018 Cari Portillo DO, DO, Kathleen Start : 29-Oct-2018 Active Comments: Ok dispense 15 Start: 08-13-2018 End: 2018 Lasix 20 MG Oral Tablet 1 (o ne) Tablet dialy x 4 days for 0 days Quantity: 15 {Tablet} Refills: 0 Ordered: 21-Aug-2018 Shannan Hawley Start : 13-Aug-2018 End : 21-Aug-2018 Inactive Comments: Ok dispense 15 Comment on above: Ok dispense 15 Ok dispense 10 gabapentin 300 mg oral capsule (20 sources) Anti-epileptic Agent Start: 017 End: 019 Gabapentin 300 MG Oral Capsule 1 (one) Capsule Capsule qhs for 5nights then bid for 5nights then tid for 0 days Quantity: 90 {Capsule} Refills: 1 Ordered: 20-Apr-2016 Cari Portillo DO, DO, Kathleen Start : 20-Apr-2016 End : 20-Apr-2016 Discontinued Comments: allergy Comment on above: allergy rx--pt did not tolerate hydroCHLOROthiazide 12.5 mg oral tablet (20 sources) Thiazide Diuretic Start: 010 End: take 1 tablet by mouth once daily HYDROCHLOROTHIAZIDE , 12.5MG (Oral Tablet) 1 (one) Tablet daily for 90 days Quantity: 90 {Tablet} Refills: 3 Ordered: 09-Nov-2009 Kathie Sen DO Start : 09-Nov-2009 End : 09-Nov-2009 Discontinued hydroCHLOROthiazide 12.5 mg / irbesartan 150 mg oral tablet (20 sources) Thiazide Diuretic, Angiotensin 2 Receptor Chel Start: 018 End: Avalide 150-12.5 MG Oral Tablet 1 tab Tablet qd for 0 days Quantity: 30 {Tablet} Refills: 3 Ordered: 27-Feb-2017 Cari Portillo DO, DO, Kathleen Start : 27-Feb-2017 End : 27-Feb-2017 Discontinued hydroCHLOROthiazide 12.5 mg / losartan potassium 50 mg oral tablet (20 sources) Thiazide Diuretic, Angiotensin 2 Receptor Chel Start: End: Losartan-Hydrochlor othiazide 50-12.5 mg tablet Discontinued 1 {tbl} PO DAILY June 22, 2020 11:00pm June 29, 2020 1:34pm Start: 06-23-2020 End: 06-29-2020 take 1 tablet by mouth once daily Losartan-Hydrochlorothiazide Discontinue d 1 TABLET PO DAILY June 22, 2020 11:00pm June 29, 2020 1:34pm Start: 07-29-2019 take 1 tablet by anamaria th once daily Losartan Potassium-HCTZ 50-12.5 MG Oral Tablet 1 (one) Tablet qd for 0 days Quantity: 90 {Tablet} Refills: 3 Ordered: 29-Jul-2019 Lyssa Anne LPN Start : 29-Jul-2019 Active hydrocortisone valerate 2 mg/ml topical cream (20 sources) Corticosteroid Start: 01-07-2013 End: 01-07-2013 HYDROCORTISONE VALERATE, 0.2% (External Cream) 1 Cream apply bid prn for 0 days Quantity: 60 {Cream} Refills: 1 Ordered: 07-Jan-2013 Kathie Sen DO Start : 07-Jan-2013 End : 07-Jan-2013 Discontinued hydrOXYzine hydrochloride 10 mg oral tablet (20 sources) Antihistamine Start: 04-20-2016 End: 03-29-2017 Hydroxyzine Hcl 10 MG tablet Discontinued 10 mg PO NEEDED as needed for as needed April 20, 2016 12:00am March 29, 2017 5:04pm lidocaine 0.05 mg/mg medicated patch (20 sources) Antiarrhythmic, Amide Local Anesthetic Start: 09-29-2009 End: 03-06-2010 LIDODERM, 5% (External Patch) 1 (one) Patch on 12 hrs off 12 hrs for 0 days Quantity: 10 {Patch} Refills: 0 Ordered: 06-Mar-2010 Kassi Brennan RN Start : 29-Sep-2009 End : 06-Mar-2010 Inactive meclizine hydrochloride 25 mg oral tablet (20 sources) Antiemetic Start: 10-09-2017 End: 02-12-2018 take 1 tablet by mouth every eight hours as needed Meclizine HCl 25 MG Oral Tablet 1 (one) Tablet Tablet q8hr prn for 0 days Quantity: 30 {Tablet} Refills: 0 Ordered: 12-Feb-2018 Erika Uriarte CNP Start : 09-Oct-2017 End : 12-Feb-2018 Inactive meloxicam 15 mg oral tablet (20 sources) Nonsteroidal Anti-inflammatory Drug Start: 06-04-2018 End: 03-22-2020 take 1 tablet by mouth once daily Meloxicam (Mobic) 15 mg tablet Discontinued 15 mg PO DAILY 30 June 03, 2018 11:00pm March 22, 2020 11:20am do not take with other NSAIDS Start: 04-09-2018 End: 05-21-2018 take 1 tablet by mouth once daily at mealtime Meloxicam 15 MG Oral Tablet 1 (one) Tablet Tablet qd with food for 0 days Quantity: 20 {Tablet} Refills: 0 Ordered: 21-May-2018 WADE Monterroso LPN Start : 09-Apr-2018 End : 21-May-2018 Inactive Start: 09-25-2017 End: 02-12-2018 take 1 tablet by mouth once daily at mealtime Meloxicam 15 MG Oral Tablet 1 (one) Tablet Tablet qd with food for 0 days Quantity: 20 {Tablet} Refills: 0 Ordered: 12-Feb-2018 Erika Uriarte CNP Start : 25-Sep-2017 End : 12-Feb-2018 Inactive 24 hr metFORMIN hydrochloride 500 mg extended release oral tablet (20 sources) Biguanide Start: 11-06-2017 End: 11-06-2017 take 2 tablets by mouth once daily MetFORMIN HCl ER 500 MG Oral Tablet Extended Release 24 Hour 2 (two) Tablet ER 24HR qd for 0 days Quantity: 180 {Tablet} Refills: 3 Ordered: 06-Nov-2017 Cari Portillo DO, DO, Kathleen Start : 06-Nov-2017 End : 06-Nov-2017 Discontinued Comments: working ondiet and exercise Start: 04-20-2016 End: 06-04-2018 take 1 tablet by mouth once daily Metformin 1,000 MG tablet,ER adeel.retention 24 hr Discontinued 1000 mg PO DAILY April 20, 2016 12:00am June 04, 2018 7:10am Comment on above: working ondiet and e xercise methotrexate 2.5 mg oral tablet (20 sources) Folate Analog Metabolic Inhibitor Start: 8 End: 8 take 7 tablets by mouth every week Methotrexate 2.5 MG Oral Tablet 7 Tablet once a week for 90 days Quantity: 210 {Tablet} Refills: 0 Ordered: 06-Nov-2017 Cari Portillo DO, DO, Kathleen Start : 06-Nov-2017 End : 06-Nov-2017 Discontinued Comments: veallanke discharged meds Start: 04-20-2016 End: 06-04-2018 Methotrexate Sodium 2.5 MG t ablet Discontinued 17.5 mg PO Q7D April 20, 2016 12:00am June 04, 2018 7:11am Start: 04-20-2016 End: 06-04-2018 take 17.5 mg by mouth every week Methotrexate Sodium Discontinued 17.5 MG PO Q7D April 20, 2016 12:00am June 04, 2018 7:11am Comment on above: veallanke discharged meds metroNIDAZOLE 0.01 mg/mg topical gel (20 sources) Nitroimidazole Antimicrobial Start: 04-24-19 14 End: 06-08-19 15 METROGEL, 1% (External Gel) 1 (one) Gel Gel apply qd for 0 days Quantity: 60 {Unspecified} Refills: 2 Ordered: 07-Jun-2014 Karyn Hunter Start : 24-Apr-2013 End : 07-Jun-2014 Discontinued montelukast 10 mg oral tablet (20 sources) Leukotriene Receptor Antagonist Start: 04-20-19 17 End: 03-29-19 18 take 1 tablet by mouth once daily Montelukast 10 MG tablet Discontinued 10 mg PO DAILY April 20, 2016 12:00am March 29, 2017 5:05pm Multivitamin preparation (20 sources) End: 01-19-20 14 take 1 tablet by mouth once daily MULTIVITAMIN (PO Chew Tab) 1 tab qd for 0 days Refills: 0 Ordered: 18-Jan-2014 Libby Rodriguez RN End : 18-Jan-2014 Discontinued Comments: This order discontinued per [facility]. End: 01-18-2014 take 1 tablet by mouth once daily MULTIVITAMIN (PO Chew Tab) 1 tab qd for 0 days Refills: 0 Ordered: 18-Jan-2014 Libby Rodriguez LPN End : 18-Jan-2014 Discontinued Comments: This order discontinued per [facility]. Comment on above: This order discontin ued per [facility]. naproxen 500 mg oral tablet (20 sources) Nonsteroidal Anti-inflammatory Drug Start: 01-08-20 13 End: 01-08-20 13 take 1 tablet by mouth twice daily at mealtime NAPROSYN, 500MG (Oral Tablet) 1 Tablet bid for 0 days Quantity: 30 {Tablet} Refills: 0 Ordered: 07-Jan-2013 Kathie Sen DO Start : 07-Jan-2013 End : 07-Jan-2013 Discontinued Comments: with food Comment on above: with food ofloxacin 3 mg/ml ophthalmic solution (20 sources) Quinolone Antimicrobial Start: 10-20-19 14 End: 06-08-19 15 OCUFLOX, 0.3% (Ophthalmic Solution) 1-2 Metric Drop Metric Drop q2-4h x 2 days, then 1-2 dropss qid x 5dasy for 0 days Quantity: 1 {Bottle} Refills: 0 Ordered: 07-Jun-2014 Karyn Hunter Start : 19-Oct-2013 End : 07-Jun-2014 Discontinued oseltamivir 75 mg oral capsule (20 sources) Neuraminidase Inhibitor Start: 03-25-19 18 End: 04-04-19 18 take 1 capsule by mouth once daily Tamiflu 75 MG Oral Capsule 1 (one) Capsule daily for 10 days Quantity: 10 {QS} Refills: 0 Ordered: 25-Mar-2017 Essence Jimenez Start : 25-Mar-2017 End : 04-Apr-2017 Inactive osteo biflex (20 sources) osteo biflex Act nik pantoprazole 40 mg delayed release oral tablet (20 sources) Proton Pump Inhibitor Start: 05-10-19 End: 04-20-19 take 1 tablet by mouth once daily in the morning Pantoprazole 40 mg tablet,delayed release (DR/EC) Discontinued 40 mg PO EVERY MORNING 90 3 April 29, 2023 12:11pm April 20, 2024 7:57am Start: 02-07-2022 End: 05-09-2022 take 1 tablet by mouth twice daily Pantoprazole 40 mg tablet,delayed release (DR/EC) Discontinued 40 mg PO TWICE A DAY 120 0 February 07, 2022 10:19am May 09, 2022 7:17am increase to twice a day for 2 months Start: 04-20-2016 End: 02-07-2022 take 1 tablet by mouth once daily Pantoprazole 40 mg tablet,delayed release (DR/EC) Discontinued 40 mg PO DAILY 90 3 September 25, 2021 6:46am February 07, 2022 10:20am potassium chloride 10 meq extended release oral tablet (20 sources) Start: 08-13-2018 End: 2018 Potassium Chloride ER 10 MEQ Oral Tablet Extended Release 1 (one) Tablet daily when taking lasix x 4 days for 0 days Quantity: 15 {Tablet} Refills: 0 Ordered: 21-Aug-2018 Chandan Shannan Start : 13-Aug-2018 End : 21-Aug-2018 Inactive predniSONE 10 mg oral tablet (20 sources) Start: 05-25-2020 End: 06-02-2020 predniSONE 10 MG Oral Tablet 1 Tablet bid x 3 days, daily x 3 days, then 1/2 x3 day for 0 days Quantity: 12 {Tablet} Refills: 0 Ordered: 02-Jun-2020 Marichuy Meade CMA Start : 25-May-2020 End : 02-Jun-2020 Inactive Comments: with food Start: 04-20-2016 End: 05-16-2016 PredniSONE 10 MG Oral Tablet 1 Tablet bid x 3 days, daily x 3 days, then 1/2 x3 day for 0 days Quantity: 12 {Tablet} Refills: 0 Ordered: 16-May-2016 Myla Person LPN Start : 20-Apr-2016 End : 16-May-2016 Discontinued Comments: with food Start: 04-20-2016 End: 03-29-2017 take 1 tablet by mouth once daily Prednisone 10 MG tablets,dose pack Discontinued 10 mg PO DAILY April 20, 2016 12:00am March 29, 2017 5:05pm Comment on above: with food pregabalin 75 mg oral capsule (20 sources) Start: 2 End: 2 take 1 capsule by mouth twice daily LYRICA, 75MG (Oral Capsule) 1 cap Capsule bid for 90 days Quantity: 180 {Capsule} Refills: 3 Ordered: 04-Jun-2011 Karyn Hunter Start : 04-Jun-2011 End : 04-Jun-2011 Discontinued sucralfate 1000 mg oral tablet (7 sources) Aluminum Complex Start: 2 End: 3 take 1 tablet by mouth before mealtime Sucralfate 1 gram tablet Discontinued 1 g PO before meals 90 0 February 07, 2022 12:00am September 12, 2022 7:16am terbinafine 250 mg oral tablet (20 sources) Allylamine Antifungal Start: 8 End: 9 take 1 tablet by mouth once daily LAMISIL, 250MG (Oral Tablet) 1 (one) Tablet qd for 0 days Quantity: 30 {Tablet} Refills: 2 Ordered: 20-Nov-2007 Fay Adamson Start : 20-Nov-2007 End : 23-Mar-2008 Inactive tylenol arthritis (20 sources) tylenol arthriti s Active vitamin b 12 2 mg oral tablet (20 sources) Vitamin B12 End: 8 take 1 tablet by mouth once daily CYANOCOBALAMIN, 2000MCG (Oral Tablet) 1 tab qd for 0 days Refills: 0 Ordered: 23-Mar-2008 Fay Adamson End : 09-Jun-2007 Discontinued zolpidem tartrate 5 mg oral tablet (10 sources) gamma-Aminobutyric Acid-ergic Agonist Start: 9 End: 1 take 1 tablet by mouth at bedtime as needed Zolpidem 5 MG tablet Discontinued 5 mg PO AT BEDTIME NEEDED as needed for Insomnia 14 0 August 07, 2018 11:00pm March 22, 2020 11:20am Problems Active Problems Problem Classification Problem Date Documented Da te Episodic/Chronic Abdominal hernia (20 sources) Diaphragmatic hernia; Translations: [Diaphragmatic hernia without mention of obstruction or gangrene] 03-05-2018 Episodic Abdominal pain (20 sources) Epigastric pain; Translations: [Acute abdominal pain] Resolved: 7 11-07-2016 Episodic Allergic reactions (20 sources) Eczema; Translations: [Allergy] Resolved: 7 03-05-2018 Episodic Comment on above: ?? has been to derm pt states no one can figure out what it is adn it goes away on own - worse with hives Anxiety disorders (20 sources) Anxiety state; Translations: [Other anxiety states] 03-05-2018 Chronic Asthma (20 sources) Asthma; Translations: [Asthma] 03-05-2018 Chronic Comment on above: pt doesnt use inhale rs - 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 Coma; stupor; and brain damage (20 sources) Daytime somnolence; Translations: [Somnolence] 03-05-2018 Episodic Conditions associated with dizziness or vertigo (20 sources) Benign paroxysmal positional vertigo; Translations: [Dizziness and giddiness] 03-05-2018 Episodic Conditions associated with dizziness or vertigo (20 sources) Conditions associated with dizziness or vertigo Deficiency and other anemia (20 sources) Iron deficiency anemia; Translations: [Iron deficiency anemia, unspecified] 03-05-2018 Episodic Comment on above: chronic stable-edgardo nue present regimen Deficiency and other anemia (20 sources) Iron deficiency anemia, unspecified Episodic Deficiency and other anemia (20 sources) Anemia; Translations: [Anemia, unspecified] Resolved: 9 08-17-2015 Episodic Deficiency and other anemia (20 sources) Deficiency and other anemia Diabetes mellitus without complication (20 sources) High hemoglobin A1c level; Translations: [Diabetes mellitus] Onset: 5 02-12-2018 Chronic Comment on above: PREDIABETIC Diseases of white blood cells (20 sources) Eosinophil count raised; Translations: [Eosinophilia] 03-12-2018 Chronic Comment on above: will repeat cbc firs t before other w/u-- alexi known asthma Epilepsy; convulsions (20 sources) Epilepsy, not refractory; Translations: [Epilepsy, unspecified, not intractable, without status epilepticus] Resolved: 6 09-14-2015 Chronic Comment on above: no seizure since 7 y /o - currently on no meds-- as child due to hi fevers Epilepsy; convulsions (10 sources) Seizure; Translations: [Unspecified convulsions] 03-22-2020 Episodic Esophageal disorders (20 sources) Gastro-esophageal reflux disease without esophagitis; Translations: [Gastroesophageal reflux disease with apnea] Onset: 5 03-05-2018 Chronic Esophageal disorders (20 sources) Esophageal disorders Essential hypertension (20 sources) Hypertensive disorder; Translations: [Essential (primary) hypertension] Onset: 5 Resolved: 6 03-05-2018 Chronic Gastritis and duodenitis (7 sources) Gastritis; Translations: [Gastritis, unspecified, without bleeding] 02-07-2022 Episodic Genitourinary symptoms and ill-defined conditions (20 sources) Proteinuria; Translations: [Abnormal urine] Resolved: 6 08-17-2015 Episodic Headache; including migraine (20 sources) Headache; Translations: [Headache] Resolved: 9 08-17-2015 Episodic Immunity disorders (20 sources) Immunodeficiency, unspecified; Translations: [Disorder involving the immune mechanism, unspecified] 03-05-2018 Chronic Immunizations and screening for infectious disease (20 sources) Contact with and (suspected) exposure to other viral communicable diseases; Translations: [Need for prophylactic vaccination and inoculation against influenza] Resolved: 1 03-05-2018 Episodic Inflammation; infection of eye (except that caused by tuberculosis or sexually transmitteddisease) (20 sources) Serous conjunctivitis; Translations: [Acute conjunctivitis] Resolved: 4 08-17-2015 Episodic Influenza (20 sources) Influenza Resolved: 9 08-17-2015 Miscellaneous mental health disorders (10 sources) Detailed recall of dream; Translations: [Vivid dream] 04-13-2020 Chronic Mycoses (20 sources) Candidiasis of mouth; Translations: [Onychomycosis] Resolved: 2 08-17-2015 Episodic Nonmalignant breast conditions (20 sources) Breast lump; Translations: [Breast lump] Resolved: 1 08-17-2015 Episodic Nonspecific chest pain (20 sources) Chest pain; Translations: [Chest pain] Resolved: 9 08-17-2015 Episodic Nutritional deficiencies (20 sources) Vitamin D deficiency; Translations: [Vitamin D deficiency, unspecified] Onset: 5 03-05-2018 Chronic Occlusion or stenosis of precerebral arteries (20 sources) Carotid artery stenosis; Translations: [Occlusion and stenosis of unspecified carotid artery] Resolved: 0 03-05-2018 Chronic Comment on above: rev 2016 Open wounds of extremities (10 sources) Laceration of left thumb; Translations: [Laceration without foreign body of left thumb without damage to nail, initial encounter] 08-11-2019 Episodic Osteoarthritis (20 sources) Chronic osteoarthritis; Translations: [Osteoarthritis] 04-23-2018 Chronic Other circulatory disease (20 sources) Raynaud's phenomenon ; Translations: [Raynaud's syndrome] 03-05-2018 Chronic Other circulatory disease (20 sources) Raynaud's syndrome Chronic Other circulatory disease (10 sources) Raynaud's disease; Translations: [Raynaud's syndrome without gangrene] 03-22-2020 Chronic Other connective tissue disease (11 sources) Pain in right foot; Translations: [Foot pain, right] 03-05-2018 Episodic Other connective tissue disease (20 sources) Foot pain; Translations: [Pain in foot] 10-02-2017 Episodic Other connective tissue disease (16 sources) Achilles tendinitis, right leg; Translations: [Right achilles tendonitis] 03-05-2018 Episodic Other connective tissue disease (20 sources) Pain in right lower limb; Translations: [Pain in lateral right lower extremity] 03-12-2018 Episodic Comment on above: oferred ncs and emg -- but decliined to do now -- will think about and handle current issues Other connective tissue disease (20 sources) Pain in upper limb; Translations: [Upper extremity pain, lateral, unspecified laterality] 05-21-2018 Episodic Comment on above: i think pain related to more deltiod muslce than shoulder jt - at this point. palpable lump and tender -- Other connective tissue disease (20 sources) Swelling of limb; Translations: [Swelling of Limb (Renamed from Limb swelling)] Resolved: 6 08-17-2015 Episodic Other connective tissue disease (20 sources) Leg swelling symptom; Translations: [Swelling of lower limb] 10-29-2018 Episodic Other connective tissue disease (13 sources) Heel pain; Translations: [Heel pain, chronic, left] 02-25-2020 Episodic Comment on above: otc insert, stretch achilles tendon and nsaid Other connective tissue disease (5 sources) Achilles tendinitis; Translations: [Achilles tendinitis, right leg] 03-22-2020 Episodic Other ear and sense organ disorders (20 sources) Otalgia, bilateral; Translations: [Bilateral earache] 04-13-2020 Episodic Comment on above: pain referred from T MJ and ETd Other ear and sense organ disorders (6 sources) Impacted cerumen; Translations: [Cerumen impaction] 05-25-2020 Episodic Comment on above: both ears instructed to use debrox Other eye disorders (20 sources) Red eye; Translations: [Red eye] Resolved: 7 11-07-2016 Episodic Comment on above: add artificial tears Other inflammatory condition of skin (20 sources) Rosacea; Translations: [Rosacea, unspecified] 03-05-2018 Chronic Other inflammatory condition of skin (20 sources) Itching of skin; Translations: [Itch of skin] 03-05-2018 Episodic Comment on above: currently on xyzal 5 mg told to increase to 10 mg, needs malignancy work up, will discuss with KF Other inflammatory condition of skin (20 sources) Generalized pruritus ; Translations: [Generalized pruritus] 03-05-2018 Episodic Comment on above: liver adn kid lab dr alvarez but still pending liver adn kid lab no rmal -- seeing Dr dudley no chg in rx color or manufacurer Other inflammatory condition of skin (20 sources) Itching ; Translations: [Itching] Resolved: 6 08-17-2015 Episodic Other lower respiratory disease (20 sources) Cough; Translations: [Cough] Resolved: 5 08-17-2015 Episodic Other lower respiratory disease (20 sources) Wheezing; Translations: [Wheezing] Resolved: 5 08-17-2015 Episodic Other nervous system disorders (20 sources) Paresthesia; Translations: [Paresthesia] Resolved: 6 09-14-2015 Episodic Other non-traumatic joint disorders (20 sources) Joint pain; Translations: [Pain in joint involving other specified sites] 03-05-2018 Episodic Other non-traumatic joint disorders (11 sources) Pain in right knee; Translations: [Right knee pain, unspecified chronicity] 03-05-2018 Episodic Other non-traumatic joint disorders (20 sources) Shoulder pain; Translations: [Acute pain of right shoulder] Resolved: 6 04-09-2018 Episodic Comment on above: s/p repair Other non-traumatic joint disorders (20 sources) Ankle pain; Translations: [Right ankle pain, unspecified chronicity] 05-21-2018 Episodic Other nutritional; endocrine; and metabolic disorders (20 sources) Body mass index 40+ - severely obese; Translations: [BMI 40.0-44.9, adult] Resolved: 8 03-05-2018 Chronic Comment on above: Goal weight of 200 p ounds Other nutritional; endocrine; and metabolic disorders (9 sources) Obesity; Translations: [Other obesity due to excess calories] 12-18-2023 Chronic Other nutritional; endocrine; and metabolic disorders (2 sources) Other obesity due to excess calories; Translations: [Obesity, unspecified] Chronic Other nutritional; endocrine; and metabolic disorders (7 sources) Obesity caused by energy imbalance; Translations: [Other obesity due to excess calories] 12-13-2021 Chronic Comment on above: Goal weight 200 poun ds Other nutritional; endocrine; and metabolic disorders (1 source) Morbid (severe) obesity due to excess calories; Translations: [Morbid (severe) obesity due to excess calories] Onset: 5 Chronic Other nutritional; endocrine; and metabolic disorders (1 source) Body mass index (BMI) 40.0-44.9, adult; Translations: [Body mass index [BMI] 40.0-44.9, adult] Onset: 5 Chronic Other skin disorders (20 sources) Actinic keratosis; Translations: [Actinic keratosis] 03-05-2018 Episodic Other skin disorders (20 sources) Eruption; Translations: [Rash] 03-05-2018 Episodic Comment on above: fine rash around eye s and fairly fine around face, but itching all over body, labs pending in February look to be appropriate to be drawn sooner Other skin disorders (20 sources) Skin lesion; Translations: [Disorder of the skin and subcutaneous tissue, unspecified] 03-05-2018 Episodic Other skin disorders (10 sources) Multiple actinic keratoses; Translations: [Actinic keratosis] 09-20-2021 Episodic Other skin disorders (3 sources) Actinic keratosis; Translations: [Actinic keratosis] Episodic Other skin disorders (1 source) Calcinosis cutis; Translations: [Calcinosis cutis] Onset: Episodic Other skin disorders (2 sources) Hemosiderin pigmentation of lower limb due to varicose veins of lower limb; Translations: [Other specified disorders of pigmentation] 09-09-2024 Episodic Other upper respiratory disease (20 sources) Allergic rhinitis; Translations: [Allergic rhinitis] Resolved: 7 11-07-2016 Chronic Other upper respiratory disease (10 sources) Allergy to pollen; Translations: [Allergic rhinitis due to pollen] 03-22-2020 Chronic Other upper respiratory disease (20 sources) Throat pain; Translations: [THROAT PAIN] Resolved: 9 08-17-2015 Episodic Other upper respiratory infections (20 sources) Acute pharyngitis; Translations: [Acute maxillary sinusitis] Resolved: 3 11-30-2014 Episodic Phlebitis; thrombophlebitis and thromboembolism (10 sources) Thrombophlebitis of superficial veins of lower extremity; Translations: [Phlebitis and thrombophlebitis of superficial vessels of unspecified lower extremity] 03-22-2021 Episodic Poisoning by other medications and drugs (20 sources) Allergic reaction to drug; Translations: [Allergic reaction to drug, initial encounter] 08-06-2016 Episodic Residual codes; unclassified (20 sources) Obstructive sleep apnea of adult; Translations: [Obstructive sleep apnea, adult] 03-05-2018 Chronic Comment on above: wears cpappt will le t me know if wants sleep consult to see if needs eval for new settings- last eval was >7 yrs ago-- wakes up feeling more tired than when he went to bed but that always seen since dx 2005 Residual codes; unclassified (20 sources) Obstructive sleep apnea syndrome; Translations: [Obstructive sleep apnea (adult) (pediatric)] 12-03-2019 Chronic Comment on above: On BiPAP 14/10 cmH2O with residual AHI of 0.4 BiPAP 14/10 cmH2O Residual codes; unclassified (8 sources) Obstructive sleep apnea (adult) (pediatric); Translations: [Obstructive sleep apnea (adult)(pediatric)] Onset: 5 Chronic Residual codes; unclassified (20 sources) Flushing; Translations: [SYMPTOMS INVOLVING SKIN AND OTHER INTEGUMENTARY TISSUE, FLUSHING] 03-05-2018 Episodic Residual codes; unclassified (20 sources) Flushing Episodic Rheumatoid arthritis and related disease (20 sources) Rheumatoid arthritis; Translations: [Rheumatoid arthritis, unspecified] 03-05-2018 Chronic Comment on above: dr kenisha bolton ed him bc they dont get along per patient-- pt doesnt referred to anyone else right now - he wants to stop meds dr kenisha bolton ed him bc they dont get along per patient-- pt doesnt referred to anyone else right now WITH SHOULDER surgery etc - he wants to stop meds-- he states hes doing fine Spondylosis; intervertebral disc disorders; other back problems (20 sources) Degeneration of cervical intervertebral disc; Translations: [Cervical radiculopathy] Resolved: 6 03-05-2018 Chronic Comment on above: getting injections improving with weigh t loss Spondylosis; intervertebral disc disorders; other back problems (20 sources) Thoracic or lumbosacral neuritis or radiculitis, unspecified; Translations: [Low back pain] Resolved: 7 03-05-2018 Episodic Comment on above: encourage see pain m anagemnt and consider neurontin Sprains and strains (20 sources) Sprain of unspecified ligament of right ankle, initial encounter; Translations: [Supination-internal rotation injury of ankle] 03-05-2018 Episodic Superficial injury; contusion (10 sources) Abrasion of lower limb; Translations: [Abrasion, right lower leg, initial encounter] 02-16-2020 Episodic Unclassified (20 sources) Screening status; Translations: [Encounter for screening for malignant neoplasm of colon (Renamed from Special screening for malignant neoplasms, colon)] Resolved: 3 03-05-2018 Comment on above: last one 01/09 Unclassified (20 sources) Influenza vaccination declined; Translations: [Influenza vaccination declined (Renamed from Refused influenza vaccine)] 03-05-2018 Unclassified (20 sources) Non-smoker; Translations: [Nonsmoker] 03-05-2018 Unclassified (20 sources) carotodynia 03-05-2018 Unclassified (20 sources) Knee pain, left (719.46) Unclassified (20 sources) Unclassified (20 sources) Anxiety state, unspecified (300.00) Unclassified (20 sources) Abdominal Pain,RUQ(789.01) Unclassified (20 sources) ear pain- ear was normal- likely ETD- he will try his nasal spray Resolved: 9 08-17-2015 Unclassified (20 sources) SCREENING FOR CANCER OF THE PROSTATE (V76.44) Unclassified (20 sources) full note dictated Resolved: 9 08-17-2015 Unclassified (20 sources) varicose veins Resolved: 6 08-17-2015 Unclassified (20 sources) Medication side effects present; Translations: [Medication side effects present, initial encounter] Resolved: 7 11-07-2016 Comment on above: from wt loss and too much bp med?-- will try reduction of avapro like past htat worked -- keep in mind pt has h/o vertigo Unclassified (20 sources) Carotid stenosis (433.10) Unclassified (20 sources) Urine, Abnormal (791.9) Unclassified (20 sources) Degenerative Disc Disease - Cervical Spine (722.4) Unclassified (20 sources) Unspecified Diagnosis Resolved: 3 01-07-2013 Unclassified (20 sources) BMI 40.0-44.9, adult Unclassified (20 sources) Ear pressure, bilateral Unclassified (20 sources) ETD (Eustachian tube dysfunction), bilateral Unclassified (20 sources) Nutritional counseling Unclassified (20 sources) Eustachian Tube Dysfunction (381.81) Unclassified (20 sources) Abnormal glucose tolerance test (Renamed from Abnormal glucose tolerance test (GTT)) Unclassified (20 sources) Immunocompromised, acquired Unclassified (20 sources) Obstructive sleep apnea, adult Unclassified (20 sources) BMI 45.0-49.9, adult Unclassified (20 sources) Dizzy spells Unclassified (20 sources) Right knee pain, unspecified chronicity Unclassified (20 sources) Foot pain, right Unclassified (20 sources) Radiculopathy of leg (724.4) Unclassified (20 sources) Inversion sprain of right ankle, initial encounter Unclassified (20 sources) Tendonitis, Achilles, right Unclassified (20 sources) Daytime somnolence (Renamed from Daytime hypersomnolence) Unclassified (20 sources) SYMPTOMS INVOLVING SKIN AND OTHER INTEGUMENTARY TISSUE, FLUSHING (782.62) Unclassified (20 sources) LOW BACK PAIN WITH RADICULOPATHY (724.4) Unclassified (20 sources) Carotid stenosis Unclassified (20 sources) Pain in lateral right lower extremity Unclassified (20 sources) Screening for prostate cancer Unclassified (20 sources) Plantar wart, left foot Unclassified (20 sources) Acute pain of right shoulder Unclassified (20 sources) Osteoarthritis, chronic Unclassified (20 sources) Chronic pain of left ankle Unclassified (20 sources) BMI 50.0-59.9, adult Unclassified (20 sources) Low back pain potentially associated with radiculopathy Unclassified (20 sources) Localized swelling of both lower extremities Unclassified (13 sources) Hematoma and contusion Unclassified (13 sources) Cellulitis of right lower extremity Unclassified (13 sources) Heel pain, chronic, left Unclassified (20 sources) Drug therapy finding; Translations: [Medication side effect] 04-13-2020 Comment on above: cymbalta causing zaid id dreaming and not controlling anxiety optimially Unclassified (10 sources) Vivid dream Unclassified (10 sources) Body mass index 40+ - severely obese; Translations: [Body mass index (BMI) greater than 40] Unclassified (3 sources) L57.0 - Actinic keratosis,L98.9 - Disorder of the skin and subcutaneous tissue, unspecified Unclassified (1 source) Actinic keratosis of scalp Unclassified (1 source) Skin lesion of chest wall Unclassified (1 source) Obesity, class 3; Translations: [Obesity, class 3] Onset: 5 Viral infection (20 sources) Plantar wart; Translations: [Viral infection, unspecified] Onset: 2 Resolved: 7 11-07-2016 Episodic Past or Other Problems Problem Classification Problem Date Documented Date Episodic/Chronic Administrative/social admission (16 sources) Counseling procedure with explicit context; Translations: [Nutritional counseling] 03-05-2018 Episodic Coronary atherosclerosis and other heart disease (20 sources) Coronary atherosclerosis and other heart disease Deficiency and other anemia (20 sources) Other specified anemias; Translations: [Anemia NEC] Resolved: 06-19-2010 08-17-2015 Episodic Diabetes mellitus without complication (20 sources) Hyperglycemia; Translations: [Abnormal glucose tolerance test] Onset: 07-29-2024 03-05-2018 Episodic Comment on above: cutting back to one tab daily as trial to come off with sugar conttrolpt refused chg in meds he will adhere to diet and exercise stopped metformin as trial to come off with sugar conttrol- HAIC went up but over holidays-- he wants to get back on lifestryle track nad do no meds x4mo he will adhere to diet and exercise Diabetes mellitus without complication (20 sources) Prediabetes; Translations: [Diabetes mellitus without complication] 03-17-2018 External cause codes: Fall (20 sources) Fall on same level from collision, pushing, or shoving, by or with other person in sports; Translations: [ACCIDENTAL FALL, SAME LEVEL, IN SPORTS] Resolved: 06-04-2011 08-17-2015 Other connective tissue disease (20 sources) Other specified soft tissue disorders; Translations: [Localized swelling of both lower extremities] Resolved: 2018 2018 Episodic Other connective tissue disease (20 sources) Pain in limb - multiple; Translations: [Paresthesia and pain of both upper extremities] Resolved: 08-17-2015 09-14-2015 Episodic Other connective tissue disease (13 sources) Hematoma; Translations: [Hematoma and contusion] Resolved: 04-13-2020 02-25-2020 Episodic Other connective tissue disease (20 sources) Pain in right foot; Translations: [Foot pain, right] Resolved: 2018 2018 Other connective tissue disease (20 sources) Right achilles tendonitis; Translations: [Tendonitis, Achilles, right] 2018 Other ear and sense organ disorders (20 sources) Ear pressure sensation; Translations: [Ear pressure, bilateral] Resolved: 2018 03-05-2018 Episodic Comment on above: resume nasal spray a nd decog-- on zyzal already -- no s/s of sinus infection to treat adn last time went to urgent care they told him same but gave zpack as trial of smoldering infection causing sx and it didnt helpprob weather front related offered ENT consult and he declined today pain with pushing on tragus is relieved Other lower respiratory disease (1 source) Apnea, not elsewhere classified; Translations: [Apnea, not elsewhere classified] Onset: 07-29-2024 Episodic Other nervous system disorders (4 sources) Paresthesia of skin; Translations: [Paresthesia and pain of both upper extremities] Resolved: 08-17-2015 09-14-2015 Episodic Other non-traumatic joint disorders (20 sources) Knee pain; Translations: [Knee pain, left] Resolved: 08-17-2015 08-17-2015 Episodic Other non-traumatic joint disorders (20 sources) Pain in left ankle and joints of left foot; Translations: [Chronic ankle pain] Resolved: 08-17-2015 09-14-2015 Episodic Other non-traumatic joint disorders (20 sources) Pain in right knee; Translations: [Right knee pain, unspecified chronicity] Resolved: 2018 2018 Other screening for suspected conditions (not mental disorders or infectious disease) (11 sources) Patient encounter status; Translations: [Encounter for screening for malignant neoplasm of colon] Onset: 02-20-2024 09-20-2021 Episodic Otitis media and related conditions (20 sources) Other specified disorders of Eustachian tube, bilateral; Translations: [Dysfunction of eustachian tube] Resolved: 01-18-2014 03-05-2018 Episodic Comment on above: he has nasal spray w ill use let know not better Otitis media and related conditions (20 sources) Dysfunction of bilateral eustachian tubes; Translations: [ETD (Eustachian tube dysfunction), bilateral] Resolved: 2018 03-05-2018 Comment on above: pt states decog no h elp , flonase no help and declined ENT consult Residual codes; unclassified (20 sources) Needs influenza immunization; Translations: [Need for prophylactic vaccination and inoculation against influenza] Resolved: 06-04-2011 11-30-2014 Episodic Residual codes; unclassified (20 sources) Localized edema; Translations: [Edema of extremity] Resolved: 11-07-2016 11-07-2016 Episodic Skin and subcutaneous tissue infections (13 sources) Cellulitis of right lower limb; Translations: [Cellulitis of right lower extremity] Resolved: 04-13-2020 02-25-2020 Unclassified (20 sources) VARICOSE VEINS- SUPPORT HOSE 03-05-2018 Unclassified (20 sources) ACCIDENTAL FALL, SAME LEVEL, IN SPORTS (E886.0) Unclassified (20 sources) Pain in Joint, Other Spec Site (719.48) Unclassified (20 sources) elevated crp- get followup flp and crp-heart and then stop lipitor and recheck flp and crp in 3 mos Resolved: 12-14-2008 08-17-2015 Unclassified (20 sources) Patient encounter status; Translations: [Encounter for screening for malignant neoplasm of rectum] Resolved: 06-19-2010 02-02-2015 Unclassified (15 sources) flushing- could be rosacea or avapro- pt doesnt want to intervene was just curious- will follow Resolved: 12-14-2008 08-17-2015 Unclassified (20 sources) myalgias/ neck pain- could be from lipitor - try off and see how does Resolved: 12-14-2008 08-17-2015 Unclassified (20 sources) CANDIDIASIS, MOUTH (THRUSH) (112.0) Unclassified (20 sources) Rash (782.1) Unclassified (20 sources) Itch of skin Unclassified (20 sources) Pain in foot Unclassified (11 sources) Exposure to the flu Unclassified (20 sources) Elevated hemoglobin A1c Unclassified (20 sources) Edema extremities Unclassified (20 sources) Degenerative Disc Disease - Lumbar (722.52) Unclassified (20 sources) Allergic reaction to drug, initial encounter Unclassified (20 sources) Acute epigastric pain Unclassified (20 sources) Cervical radiculopathy, acute Unclassified (20 sources) Paresthesia and pain of both upper extremities Unclassified (20 sources) Upper extremity pain, lateral, unspecified laterality Unclassified (20 sources) Right ankle pain, unspecified chronicity Unclassified (20 sources) SPECIAL SCREENING FOR MALIGNANT NEOPLASMS OF THE RECTUM (V76.41) Unclassified (20 sources) Parasthesia (782.0) Unclassified (20 sources) Therapeutic drug monitoring; Translations: [Drug therapy finding] 07-29-2019 Unclassified (15 sources) KAYLEE (obstructive sleep apnea) Unclassified (6 sources) Atopic contact dermatitis Unclassified (6 sources) Cerumen impaction Unclassified (4 sources) Rash Viral infection (20 sources) Plantar wart of left foot; Translations: [Plantar wart, left foot] Resolved: 11-07-2016 11-07-2016 Results Test Name Value Interpretation Reference Range Facility Pulmonary Visit Reporton Pulmonary Visit Report [facility] Pulmonary Medicine [address] [place] [address] OFFICE VISIT Date of Service: 12/15/24 MR#: [id number] Acct: [id number] Name: WILLA MORROW Jr. Rep #: [id number] : 1960 Provider: SHANON Coley Age/Sex: 64/M [place] [facility] Status: Signed Assessment and Plan Assessment and Plan (1) KAYLEE (obstructive sleep apnea): Status: Chronic Comment: BiPAP 14/10 cmH2O Plan: Stable, he is using and benefiting from Pap therapy. No indication for titration study at this time. Contact the office for any new or worsening symptoms in the meantime. Follow-up in 1 year. (2) Obesity: Status: Chronic Qualifiers: Obesity type: due to excess calories Obesity classification: adult class 3 (BMI >= 40) Serious obesity comorbidity presence: with serious comorbidity Body mass index: BMI 40.0-44.9 Qualified Code(s): E66.813 - Obesity, class 3; E66.01 - Morbid (severe) obesity due to excess calories; Z68.41 - Body mass index [BMI] 40.0-44.9, adult Plan: Complicates exam, plan, care and prognosis. Continue to encourage weight loss. Plan Details Additional Comments: This note was generated with [employer] dictation software. It may contain incorrect words, spelling, and punctuation that were not noted in checking the note before signing. Portions of this documentation have been copied and pasted from previous office visit notes to provide a cohesive continuity of the history. The note has been reviewed, edited, and updated, as necessary. Follow Up: 1 Year HPI 1 Y FU Chief Complaint: routine follow up HPI Comments Details: This patient presents to the office today to follow-up on his obstructive sleep apnea. He is ambulatory and on room air. He has not been seen in the ED or urgent care for any respiratory illnesses since his last office visit. He has not required any antibiotics or prednisone for any breathing problems. He denies any difficulty with shortness of breath. He denies any cough, sputum production or hemoptysis. He has not had any wheezing, chest tightness, chest pain or palpitations. He also denies any fever, chills or body aches. 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 He denies any difficulty with dry mouth, nocturia, morning headaches or mask leaks. He is not requiring naps. He is not nodding off to sleep unintentionally. Compliance report for the past 30 days shows 100% compliance with an average use of 9 hours and 34 minutes per night. Current setting is 14/10 cmH2O with a residual AHI of 0.7 events per hour. Leaks do not appear to be an issue. Intake Vital Signs 07/29/24 07:56 12/15/24 08:49 Height 5 ft 5 in 5 ft 5 in Weight: 269 lb BMI 44.7 BP 150/89 H Blood Pressure Location Lt brachial Position Sitting Respiration 18 Pulse 78 Pulse Source Monitor Temp 97.4 F L Temperature Source Temporal Artery Pulse Oximetry (%) 98 Oxygen Delivery Method room air Intake Visit Reasons: 1 Y FU 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: No DME Vendor: Salvador Accompanied by: Self Is patient in pain?: No Allergies adhesive tape Allergy (Verified 12/15/24 08:47) Rash codeine Allergy (Verified 12/15/24 08:47) Hives gabapentin (From Neurontin) Allergy (Verified 12/15/24 08:47) Hives hydrocodone (From Vicodin) Allergy (Verified 12/15/24 08:47) unknown Sulfa (Sulfonamide Antibiotics) Allergy (Verified 12/15/24 08:47) Rash Medications ???Medication ???Instructions ???Recorded ???Confirmed ???Type aspirin 81 mg tablet,delayed 81 mg PO DAILY 06/04/18 12/15/24 H istory release (Adult Low Dose Aspirin) acetaminophen 650 mg 650 mg PO PRN PRN Pain 03/22/20 History tablet,extended release (Tylenol Arthritis Pain) losartan 50 mg tablet 50 mg PO DAILY #90 tabs 12/18/23 1 Rx pantoprazole 40 mg tablet,delayed 40 mg PO QAM #90 tabs 04/20/24 Rx release cholecalciferol (vitamin D3) 25 2,000 unit PO DAILY 09/07/2412/15 History mcg (1,000 unit) capsule diphenhydramine HCl 25 mg capsule 25 mg PO QHS PRN 09/07/24 5 History (Allergy (diphenhydramine)) duloxetine 60 mg capsule,delayed 60 mg PO QDAY 09/07/24 12/15/24 Hi story release irbesartan 150 mg tablet (Avapro) 150 mg PO QDAY 09/07/24 12/15/24 History levocetirizine 5 mg tablet 5 mg PO QPM 09/07/24 12/15/24 Hist ory Have you fallen in the past year?: No [facility] History (Reviewed 12/15/24 @ 08:56 by Neyda Coley [employer] RING SEWER, WINDOW SH[employer] RING SEWER-C) Skin lesion of chest wall Wears contact lenses Wears glasses Diabetes Rheumatoid arthritis Arthritis Back pain Migraine headache History of hiatal hernia Gastric reflux Non-smoker CPAP (continuous positive airway pressure) dependence Redness of skin History of ed (more content not included)... Normal [facility] MR/BMS.Sammie 09-09-2024 MR/BMS.TRESA [facility] Vascular Surgery [facility] [place] [address] OFFICE VISIT Date of Service: 09/09/24 MR#: [id number] Acct: [id number] Name: WILLA MORROW Rep #: [id number] : 1960 Provider: STARR Ospina Age/Sex: 64/M Location: [facility] Status: Signed Intake Vital Signs 07/29/24 07:56 09/09/24 13:51 Height 5 ft 5 in Weight: 264 lb 6 oz 265 lb BMI 43.9 BP 146/86 H 149/93 H Blood Pressure Location Lt brachial Lt brachial Position Sitting Sitting Respiration 16 16 Pulse 76 92 Pulse Source Monitor Monitor Temp 98.6 F 98.4 F Temp Source Temporal Temporal Pulse Oximetry (%) 97 96 Oxygen Delivery Method room air room air Intake Visit Reasons: Lymphedema, Phlebitis LE Chief Complaint: establish care Is patient in pain?: No Allergies adhesive tape Allergy (Verified 09/09/24 13:54) Rash codeine Allergy (Verified 09/09/24 13:54) Hives gabapentin (From Neurontin) Allergy (Verified 09/09/24 13:54) Hives hydrocodone (From Vicodin) Allergy (Verified 09/09/24 13:54) unknown Sulfa (Sulfonamide Antibiotics) Allergy (Verified 09/09/24 13:54) Rash Medications ???Medication ???Instructions ???Recorded ???Confirmed ???Type aspirin 81 mg tablet,delayed 81 mg PO DAILY 06/04/18 07/29/24 H istory release (Adult Low Dose Aspirin) acetaminophen 650 mg 650 mg PO PRN PRN Pain 03/22/20 History tablet,extended release (Tylenol Arthritis Pain) losartan 50 mg tablet 50 mg PO DAILY #90 tabs 12/18/23 0 07/29/24 Rx pantoprazole 40 mg tablet,delayed 40 mg PO QAM #90 tabs 04/20/24 Rx release cholecalciferol (vitamin D3) 25 2,000 unit PO DAILY 09/07/2409/07 History mcg (1,000 unit) capsule diphenhydramine HCl 25 mg capsule 25 mg PO QHS PRN 09/07/24 5 History (Allergy (diphenhydramine)) duloxetine 60 mg capsule,delayed 60 mg PO QDAY 09/07/24 09/07/24 Hi story release irbesartan 150 mg tablet (Avapro) 150 mg PO QDAY 09/07/24 09/07/24 History levocetirizine 5 mg tablet 5 mg PO QPM 09/07/24 09/07/24 Hist ory Have you fallen in the past year?: No PFSH Medical History Skin lesion of chest wall Wears contact lenses Wears glasses Diabetes Rheumatoid arthritis Arthritis Back pain Migraine headache History of hiatal hernia Gastric reflux Non-smoker CPAP (continuous positive airway pressure) dependence Redness of skin History of edema Hypertension Cardiology follow-up encounter Tinea pedis Acute maxillary sinusitis, unspecified BPV (benign positional vertigo) Rosacea KAYLEE (obstructive sleep apnea) Vitamin D deficiency Immunocompromised Eosinophilia, unspecified GERD with apnea Osteoarthritis Diaphragmatic hernia without obstruction Cervical radiculopathy Carotid stenosis Raynauds syndrome Radiculopathy of leg Daytime somnolence Tendonitis, Achilles, right Inversion sprain of right ankle Actinic keratosis Seizures Hay fever Diabetes HTN (hypertension) Surgical History History of cardiac catheterization Hx of knee surgery History of vasectomy H/O repair of rotator cuff Family History Father Sepsis ETOH abuse Mother Diabetes Hypertension Other Heart disease Osteoporosis Social History Smoking Status: Never smoker alcohol intake: current alcohol intake frequency: holidays/special occasions only Alcohol type: wine substance use type: does not use what type of physical activity do you participate in: none HPI HPI HPI: WILLA MORROW, is a 64 M who presents to the office today for evaluation of discoloration on his medial R calf as referred by podiatry Dr. Valenzuela. He does have a history of venous insufficiency with history of remote bilateral phlebectomy/stripping by Dr. Reyna. He reports this area of discoloration on his R medial calf started after he bumped his leg against his bike pedal and then has slowly enlarged/worsened with time. He has not had any ulceration or weeping. He has occasional tenderness to palpation but generally no pain. He does not have much swelling. He does wear compression stockings, but these are nonmeasured. He tries to elevate his legs at rest. ROS General General: Yes weight change; No appetite, fatigue, colon cancer, breast cancer or weakness HEENT HEENT: No difficulty swallowing, eye injury, eye surgery, swollen glands or hoarseness Endo Endocrine: No thyroid disease, diabetes mellitus, thyroid cancer, Hair loss, heat intolerance or cold intolerance Skin Skin: No rash or changing moles Musc Musculoskeletal: No ba (more content not included)... Normal [facility] Tibia Fibula 2 Viewson 08-12 Tibia Fibula 2 Views [facility] Imaging Services [address] [place] [address] Tibia Fibula 2 Views MR#: [id number] Acct: [id number] Name: WILLA MORROW Jr. Rep #: [id number] : 1960 M 63 From: Peyman Muniz DO PCP: Dr. Latesha Zafar MD Status: REG CLI Study: Tibia Fibula 2 Views Date of Exam: 08/12/24 Exam# [id number] Ordering Dr: Ruchi Valenzuela DPDinesh PROCEDURE: TIBIA FIBULA 2 VIEWS 08/12/2024 REASON FOR EXAM: CALCINOSIS CUTIS TECHNIQUE: TIBIA FIBULA 2 VIEWS FINDINGS: RIGHT CALCANEUS: Normal bone mineralization. No evidence of fracture. No focal osseous lesion. Subtalar joint is unremarkable. Alignment is preserved. Scattered soft tissue calcifications seen in the leg, likely phleboliths. No cutaneous calcification identified RAD/Tibia Fibula 2 Views IMPRESSION: Soft tissue calcifications, nonspecified, likely phleboliths. The calcifications are in the sub cutaneous fat overlying the muscles No evidence of skin calcification as would be seen with calcinosis cutis Reading Location: [facility] CC: DPDinesh Valenzuela; Dr. Latesha Zafar MD Air Twister Winder: Signed [facility] MR/BMS.Bon 07-29-2024 MR/BMS.IMB [facility] [address] [place] [address] OFFICE VISIT Date of Service: 07/29/24 MR#: [id number] Acct: [id number] Name: WILLA MORROW Jr. Rep #: [id number] : 1960 Provider: Dr. Latesha grijalva MD Age/Sex: 63/M Location: [facility] Status: Signed Intake Vital Signs 01/29/24 07:50 07/29/24 07:56 Height 5 ft 5 in 5 ft 5 in Weight: 253 lb 6 oz 264 lb 6 oz BMI 42.1 43.9 BP 153/92 H 146/86 H Blood Pressure Location Rt brachial Lt brachial Position Sitting Sitting Respiration 16 16 Pulse 60 76 Pulse Source Monitor Monitor Temp 97.8 F 98.6 F Temp Source Temporal Temporal Pulse Oximetry (%) 98 97 Oxygen Delivery Method room air room air Intake Visit Reasons: 6 M FU Chief Complaint: 6 M FU 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: No Accompanied by: Self Is patient in pain?: No Allergies acetaminophen (From Vicodin) Allergy (Verified 07/29/24 07:53) unknown adhesive tape Allergy (Verified 07/29/24 07:53) Rash codeine Allergy (Verified 07/29/24 07:53) Hives gabapentin (From Neurontin) Allergy (Verified 07/29/24 07:53) Hives hydrocodone (From Vicodin) Allergy (Verified 07/29/24 07:53) unknown Sulfa (Sulfonamide Antibiotics) Allergy (Verified 07/29/24 07:53) Rash Medications ???Medication ???Instructions ???Recorded ???Confirmed ???Type cholecalciferol (vitamin D3) 25 2,000 unit PO DAILY 03/29/1707/29 History mcg (1,000 unit) capsule aspirin 81 mg tablet,delayed 81 mg PO DAILY 06/04/18 07/29/24 H istory release (Adult Low Dose Aspirin) acetaminophen 650 mg 650 mg PO PRN PRN Pain 03/22/20 History tablet,extended release (Tylenol Arthritis Pain) losartan 50 mg tablet 50 mg PO DAILY #90 tabs 12/18/23 0 07/29/24 Rx pantoprazole 40 mg tablet,delayed 40 mg PO QAM #90 tabs 04/20/24 Rx release Have you fallen in the past year?: No PFSH Medical History (Updated 07/29/24 @ 08:[address] Latesha Zafar MD) Skin lesion of chest wall Wears contact lenses Wears glasses Diabetes Rheumatoid arthritis Arthritis Back pain Migraine headache History of hiatal hernia Gastric reflux Non-smoker CPAP (continuous positive airway pressure) dependence Redness of skin History of edema Hypertension Cardiology follow-up encounter Tinea pedis Acute maxillary sinusitis, unspecified BPV (benign positional vertigo) Rosacea KAYLEE (obstructive sleep apnea) Vitamin D deficiency Immunocompromised Eosinophilia, unspecified GERD with apnea Osteoarthritis Diaphragmatic hernia without obstruction Cervical radiculopathy Carotid stenosis Raynauds syndrome Radiculopathy of leg Daytime somnolence Tendonitis, Achilles, right Inversion sprain of right ankle Actinic keratosis Seizures Hay fever Diabetes HTN (hypertension) Surgical History History of cardiac catheterization Hx of knee surgery History of vasectomy H/O repair of rotator cuff Family History Father Sepsis ETOH abuse Mother Diabetes Hypertension Other Heart disease Osteoporosis Social History Smoking Status: Never smoker alcohol intake: current alcohol intake frequency: holidays/special occasions only Alcohol type: wine substance use type: does not use what type of physical activity do you participate in: none HPI HPI Chief Complaint: 6 M FU Details: WILLA MORROW, is a 63 M who presents to the office today for 6-month follow-up. 63-year-old gentleman who has type 2 diabetes, that has been largely diet controlled. Hypertension on losartan 50 mg daily, pantoprazole, aspirin for primary prevention. He had labs done recently, including blood counts, chemistries, all of which were unremarkable. His lipid levels are excellent. A1c is at 6.0. KAYLEE on CPAP therapy. Overall has been doing well and does not have any new specific complaint or concerns except for he gets intermittent discomfort in the left arm. This is not associated with physical activity per se and can come and go at different times in the localizes it to the area where he had an incision site from prior biceps repair as part of shoulder surgery. This is in the midportion of the bicep but also he will get a sharp pain at times and sometimes a tingling sensation in the proximal forearm, extensor compartment. He also does have some chronic longstanding neck issues. In the past he had a neck injections as well as back injections but nothing recent. Remotely had seen a neurology specialist regarding his neck but they decided not to proceed to surgery. Reportedly has some disc issues in the neck. He still has intermittent neck pain but nothing severe n (more content not included)... Normal [facility] Absolute lymphocyte countOrd ered By: Latesha Zafar on 07-16-2024 Lymphocytes Auto (Unsp spec) [#/Vol] 2.00 10*3/uL 0.83-4.51 [facility] Absolute neutrophil countOrd ered By: Latesha Zafar on 07-16-2024 Neutrophils (Bld) [#/Vol] 3.8 10*3/uL 2.0-7.7 [facility] Anion gap in Serum or Plasma Ordered By: Latesha Zafar on 07-16-2024 Anion gap [Moles/Vol] 12 mmol/L 5-15 [facility] Automated lymphocyte count a s percentage of total leukocytesOrdered By: Latesha Zafar on 07-16-2024 Lymphocytes/100 WBC Auto (Unsp spec) 30.1 % 19- [facility] BUN/creatinine ratioOrdered By: Latesha Zafar on 07-16-2024 Urea nitrogen/Creatinine [Mass ratio] 15.7 mg/mg 10- [facility] Basophil percentageOrdered B y: Latesha Zafar on 07-16-2024 Basophils/100 WBC (Bld) 0.6 % 0-1 [facility] Bilirubin, totalOrdered By: Latesha Zafar on 07-16-2024 Bilirubin [Mass/Vol] 0.31 mg/dL 0.00-1.30 [facility] CBC W/Diff, Automatedon 06-26 Absolute Lymph 2.00 X10 3/uL Normal 0.83-4.51 [facility] Comment on above: Performed By: #### L 100.0100, L500.4100, L501.9910, L501.9520, L500.4050, L501.9985, L506.1001 #### [facility] Laboratory [address] [place], [address] Absolute Neut 3.8 X10 3/uL Normal 2.0-7.7 [facility] Comment on above: Performed By: #### L 100.0100, L500.4100, L501.9910, L501.9520, L500.4050, L501.9985, L506.1001 #### [facility] [address] [place], [address] Basophils/100 WBC (Bld) 0.6 % Normal 0-1 [facility] Comment on above: Performed By: #### L 100.0100, L500.4100, L501.9910, L501.9520, L500.4050, L501.9985, L506.1001 #### [facility] [address] [place], [address] Eosinophils/100 WBC (Bld) 3.6 % Normal 0-5 [facility] Comment on above: Performed By: #### L 100.0100, L500.4100, L501.9910, L501.9520, L500.4050, L501.9985, L506.1001 #### [facility] [address] [place], [address] Erythrocyte distribution width (RBC) [Ratio] 13.6 % Normal 11.6-14.6 [facility] Comment on above: Performed By: #### L 100.0100, L500.4100, L501.9910, L501.9520, L500.4050, L501.9985, L506.1001 #### [facility] [address] [place], [address] Hematocrit (Bld) [Volume fraction] 43.2 % Normal 40-54 [facility] Comment on above: Performed By: #### L 100.0100, L500.4100, L501.9910, L501.9520, L500.4050, L501.9985, L506.1001 #### [facility] [address] [place], [address] Hemoglobin (Bld) [Mass/Vol] 14.2 g/dL Normal 13.0-16.5 [facility] Comment on above: Performed By: #### L 100.0100, L500.4100, L501.9910, L501.9520, L500.4050, L501.9985, L506.1001 #### [facility] [address] [place], [address] IG% 0.300 Normal 0.0-0.9 [facility] Comment on above: Result Comment: IG% - Immature Granulocytes (promyelocytes, myelocytes and metamyelocytes) > 1% indicates that a LEFT SHIFT is Present. Performed By: #### L 100.0100, L500.4100, L501.9910, L501.9520, L500.4050, L501.9985, L506.1001 #### [facility] [address] [place], [address] Lymphocytes/100 WBC (Bld) 30.1 % Normal 19-41 [facility] Comment on above: Performed By: #### L 100.0100, L500.4100, L501.9910, L501.9520, L500.4050, L501.9985, L506.1001 #### [facility] [address] [place], [address] MCH (RBC) [Entitic mass] 29.5 pg Normal 27.0-32.0 [facility] Comment on above: Performed By: #### L 100.0100, L500.4100, L501.9910, L501.9520, L500.4050, L501.9985, L506.1001 #### [facility] [address] [place], [address] MCHC (RBC) [Mass/Vol] 32.9 g/dL Normal 32-36 [facility] Comment on above: Performed By: #### L 100.0100, L500.4100, L501.9910, L501.9520, L500.4050, L501.9985, L506.1001 #### [facility] [address] [place], [address] MCV (RBC) [Entitic vol] 89.8 fL Normal 80-94 [facility] Comment on above: Performed By: #### L 100.0100, L500.4100, L501.9910, L501.9520, L500.4050, L501.9985, L506.1001 #### [facility] [address] [place], [address] Monocytes/100 WBC (Bld) 7.7 % Normal 0-10 [facility] Comment on above: Performed By: #### L 100.0100, L500.4100, L501.9910, L501.9520, L500.4050, L501.9985, L506.1001 #### [facility] [address] [place], [address] Neutrophils/100 WBC (Bld) 57.7 % Normal 47-70 [facility] Comment on above: Performed By: #### L 100.0100, L500.4100, L501.9910, L501.9520, L500.4050, L501.9985, L506.1001 #### [facility] [address] [place], [address] Nucleated RBC (Bld) [#/Vol] 0 10*3/uL Normal 0-5 [facility] Comment on above: Performed By: #### L 100.0100, L500.4100, L501.9910, L501.9520, L500.4050, L501.9985, L506.1001 #### [facility] [address] [place], [address] Platelet mean volume (Bld) [Entitic vol] 10.0 fL Normal 6.2-12.0 [facility] Comment on above: Performed By: #### L 100.0100, L500.4100, L501.9910, L501.9520, L500.4050, L501.9985, L506.1001 #### [facility] [address] [place], [address] Platelets (Bld) [#/Vol] 236 10*3/uL Normal 150-450 [facility] Comment on above: Performed By: #### L 100.0100, L500.4100, L501.9910, L501.9520, L500.4050, L501.9985, L506.1001 #### [facility] [address] [place], [address] RBC (Bld) [#/Vol] 4.81 10*6/uL Normal 4.6-6.2 [facility] Comment on above: Performed By: #### L 100.0100, L500.4100, L501.9910, L501.9520, L500.4050, L501.9985, L506.1001 #### [facility] [address] [place], [address] RDW SD 45.0 fl High 35.1-43.9 [facility] Comment on above: Performed By: #### L 100.0100, L500.4100, L501.9910, L501.9520, L500.4050, L501.9985, L506.1001 #### [facility] [address] [place], [address] WBC (Bld) [#/Vol] 6.6 10*3/uL Normal 4.4-11.0 [facility] Comment on above: Performed By: #### L 100.0100, L500.4100, L501.9910, L501.9520, L500.4050, L501.9985, L506.1001 #### [facility] [address] [place], [address] Calculated very low density lipoprotein (VLDL) cholesterol measurementOrdered By: Latesha Zafar on 07-16-2024 Calculated very low density lipoprotein (VLDL) cholesterol measurement 20 mg/dL 5-40 [facility] Carbon dioxide, total [Moles /volume] in Central venous bloodOrdered By: Latesha Zafar on 07-16-2024 CO2 [Moles/Vol] 24.4 mmol/L 21.0-32.0 [facility] Chloride assayOrdered By: Esperanza Zafar on 07-16-2024 Chloride [Moles/Vol] 103 mmol/L 98-108 [facility] Comprehensive Metabolic Prof ilon 07-16-2024 Albumin [Mass/Vol] 4.2 g/dL Normal 3.4-4.8 [facility] Comment on above: Performed By: #### L 100.0100, L500.4100, L501.9910, L501.9520, L500.4050, L501.9985, L506.1001 #### [facility] [address] [place], [address] Albumin/Globulin [Mass ratio] 1.4 {ratio} Normal 0.9-2.4 [facility] Comment on above: Performed By: #### L 100.0100, L500.4100, L501.9910, L501.9520, L500.4050, L501.9985, L506.1001 #### [facility] [address] [place], [address] ALK PHOS 63 U/L Normal 40-129 [facility] Comment on above: Performed By: #### L 100.0100, L500.4100, L501.9910, L501.9520, L500.4050, L501.9985, L506.1001 #### [facility] [address] [place], [address] ALT [Catalytic activity/Vol] 21 U/L Normal <=46 [facility] Comment on above: Performed By: #### L 100.0100, L500.4100, L501.9910, L501.9520, L500.4050, L501.9985, L506.1001 #### [facility] [address] [place], [address] AST [Catalytic activity/Vol] 23 U/L Normal <=37 [facility] Comment on above: Performed By: #### L 100.0100, L500.4100, L501.9910, L501.9520, L500.4050, L501.9985, L506.1001 #### [facility] [address] [place], [address] Bilirubin [Mass/Vol] 0.31 mg/dL Normal 0.00-1.30 [facility] Comment on above: Performed By: #### L 100.0100, L500.4100, L501.9910, L501.9520, L500.4050, L501.9985, L506.1001 #### [facility] [address] [place], [address] BUN/CRE 15.7 RATIO Normal 10-20 [facility] Comment on above: Performed By: #### L 100.0100, L500.4100, L501.9910, L501.9520, L500.4050, L501.9985, L506.1001 #### [facility] [address] [place], [address] Calcium [Mass/Vol] 9.3 mg/dL Normal 7.6-11.0 [facility] Comment on above: Performed By: #### L 100.0100, L500.4100, L501.9910, L501.9520, L500.4050, L501.9985, L506.1001 #### [facility] [address] [place], [address] Chloride [Moles/Vol] 103 mmol/L Normal 98-108 [facility] Comment on above: Performed By: #### L 100.0100, L500.4100, L501.9910, L501.9520, L500.4050, L501.9985, L506.1001 #### [facility] [address] [place], [address] CO2 [Moles/Vol] 24.4 mmol/L Normal 21.0-32.0 [facility] Comment on above: Performed By: #### L 100.0100, L500.4100, L501.9910, L501.9520, L500.4050, L501.9985, L506.1001 #### [facility] [address] [place], [address] Creatinine [Mass/Vol] 0.98 mg/dL Normal 0.70-1.20 [facility] Comment on above: Performed By: #### L 100.0100, L500.4100, L501.9910, L501.9520, L500.4050, L501.9985, L506.1001 #### [facility] [address] [place], [address] GAP 12 Normal 5-15 [facility] Comment on above: Performed By: #### L 100.0100, L500.4100, L501.9910, L501.9520, L500.4050, L501.9985, L506.1001 #### [facility] [address] [place], [address] GFR/1.73 sq M.predicted among non-blacks MDRD (S/P/Bld) [Vol rate/Area] 86 mL/min/{1.73_m2} Normal >60 [facility] Comment on above: Result Comment: mL/m in/1.73m2 CKD-EPI Creatinine Equation (2020) Performed By: #### L 100.0100, L500.4100, L501.9910, L501.9520, L500.4050, L501.9985, L506.1001 #### [facility] [address] [place], [address] Globulin (S) [Mass/Vol] 3.0 g/dL Normal 2.2-4.2 [facility] Comment on above: Performed By: #### L 100.0100, L500.4100, L501.9910, L501.9520, L500.4050, L501.9985, L506.1001 #### [facility] [address] [place], [address] Glucose [Mass/Vol] 86 mg/dL Normal 70-99 [facility] Comment on above: Performed By: #### L 100.0100, L500.4100, L501.9910, L501.9520, L500.4050, L501.9985, L506.1001 #### [facility] [address] [place], [address] Potassium [Moles/Vol] 4.3 mmol/L Normal 3.3-5.1 [facility] Comment on above: Performed By: #### L 100.0100, L500.4100, L501.9910, L501.9520, L500.4050, L501.9985, L506.1001 #### [facility] [address] [place], [address] Sodium [Moles/Vol] 140 mmol/L Normal 133-145 [facility] Comment on above: Performed By: #### L 100.0100, L500.4100, L501.9910, L501.9520, L500.4050, L501.9985, L506.1001 #### [facility] [address] [place], [address] T PROT 7.2 g/dL Normal 5.9-8.4 [facility] Comment on above: Performed By: #### L 100.0100, L500.4100, L501.9910, L501.9520, L500.4050, L501.9985, L506.1001 #### [facility] [address] [place], [place], [address] Urea nitrogen [Mass/Vol] 15 mg/dL Normal 4-19 [facility] Comment on above: Performed By: #### L 100.0100, L500.4100, L501.9910, L501.9520, L500.4050, L501.9985, L506.1001 #### [facility] [address] [place], [address] Eosinophil percentageOrdered By: Latesha Zafar on 07-16-2024 Eosinophils/100 WBC (Bld) 3.6 % 0-5 [facility] Erythrocyte distribution wid th ratioOrdered By: Latesha Zafar on 07-16-2024 Erythrocyte distribution width (RBC) [Ratio] 13.6 % 11.6-14.6 [facility] Erythrocyte distribution wid th standard deviationOrdered By: Latesha Zafar on 07-16-2024 Erythrocyte distribution width (RBC) [Ratio] 45.0 fl High 35.1-43.9 [facility] Glomerular filtration rate ( GFR) estimation/1.73 sq m using serum, plasma, or whole bOrdered By: Latesha Zafar on 07-16-2024 GFR/1.73 sq M.predicted among non-blacks MDRD (S/P/Bld) [Vol rate/Area] 86 mL/min/{1.73_m2} >60 [facility] Comment on above: mL/min/1.73m2 CKD-EP I Creatinine Equation (2020) Hematocrit Auto (Bld) [Volum e fraction]Ordered By: Latesha Zafar on 07-16-2024 Hematocrit (Bld) [Volume fraction] 43.2 % 40-54 [facility] Hemoglobin A1con 07-16-2024 HbA1c (Bld) [Mass fraction] 6.0 % High <=5.6 [facility] Comment on above: Result Comment: Norm al < 5.7 % Prediabetic 5.7 - 6.4 % Diabetic >or= 6.5 % Please note range changes. Performed By: #### L 100.0100, L500.4100, L501.9910, L501.9520, L500.4050, L501.9985, L506.1001 #### [facility] [address] [place], [place], [address] Hemoglobin A1c percentageOrd ered By: Latesha Zafar on 07-16-2024 HbA1c (Bld) [Mass fraction] 6.0 % High <5.7 [facility] Comment on above: Normal < 5.7 % Predi abetic 5.7 - 6.4 % Diabetic >or= 6.5 % Please note range changes. Hemoglobin measurementOrdere d By: Latesha Zafar on 07-16-2024 Hemoglobin (Bld) [Mass/Vol] 14.2 g/dL 13.0-16.5 [facility] Immature granulocytes/100 WB C Auto (Bld)Ordered By: Latesha Zafar on 07-16-2024 Immature granulocytes/100 WBC (Bld) 0.300 % 0.0-0.9 [facility] Comment on above: IG% - Immature Granu locytes (promyelocytes, myelocytes and metamyelocytes) > 1% indicates that a LEFT SHIFT is Present. LDL calc ser/plasOrdered By: Latesha Zafar on 07-16-2024 Cholesterol in LDL [Mass/Vol] 94 mg/dL [facility] Comment on above: Snztyagtph=181-219 m g/dL & Higher Tdmw=818 mg/dL or greater Laboratory - Chemistry and C hemistry - challengeOrdered By: Latesha Zafar on 07-16-2024 AST [Catalytic activity/Vol] 23 U/L <38 [facility] Lipid Profileon 07-16-2024 CHOL:HDL 3.32 Normal [facility] Comment on above: Performed By: #### L 100.0100, L500.4100, L501.9910, L501.9520, L500.4050, L501.9985, L506.1001 #### [facility] [address] [place], [address] Cholesterol [Mass/Vol] 163 mg/dL Normal <=200 [facility] Comment on above: Result Comment: Chol esterol level, Desirable <200 mg/dL Borderline high cholesterol 200-239 mg/dL High cholesterol >=240 mg/dL Recommendations of the NCEP Adult Treatment Panel for the following risk-cutoff thresholds for the [place] population. Performed By: #### L 100.0100, L500.4100, L501.9910, L501.9520, L500.4050, L501.9985, L506.1001 #### [facility] [address] [place], [address] Cholesterol in HDL [Mass/Vol] 49 mg/dL Normal [facility] Comment on above: Result Comment: [place] onal Cholesterol Education Program (NCEP) guidelines: <40 mg/dL: Low HDL-cholesterol (major risk factor for CHD) >= 60 mg/dL: High HDL-cholesterol (negative risk factor for CHD) HDL-cholesterol is affected by a number of factors, e.g. smoking, exercise, hormones, sex and age. Performed By: #### L 100.0100, L500.4100, L501.9910, L501.9520, L500.4050, L501.9985, L506.1001 #### [facility] [address] [place], [address] Cholesterol in LDL [Mass/Vol] 94 mg/dL Normal [facility] Comment on above: Result Comment: Bord zmoefn=889-535 mg/dL Higher Dqtk=335 mg/dL or greater Performed By: #### L 100.0100, L500.4100, L501.9910, L501.9520, L500.4050, L501.9985, L506.1001 #### [facility] [address] [place], [address] Cholesterol in VLDL [Mass/Vol] 20 mg/dL Normal 5-40 [facility] Comment on above: Performed By: #### L 100.0100, L500.4100, L501.9910, L501.9520, L500.4050, L501.9985, L506.1001 #### [facility] [address] [place], [place], [id number] Triglyceride [Mass/Vol] 99 mg/dL Normal [facility] Comment on above: Result Comment: The drugs N-Acetylcysteine and Metamizole may falsely depress this assay. Normal range: <150 mg/dL Borderline High: 150-199 mg/dL High: 200-499 mg/dL Very High: >500 mg/dL Performed By: #### L 100.0100, L500.4100, L501.9910, L501.9520, L500.4050, L501.9985, L506.1001 #### [facility] [address] [facility] [address] [place], [place], [id number] MCV (mean corpuscular volume ) determinationOrdered By: Latesha Zafar on 07-16-2024 MCV (RBC) [Entitic vol] 89.8 fL 80-94 [facility] Mean corpuscular hemoglobin (MCH) determinationOrdered By: Latesha Zafar on 07-16-2024 MCH (RBC) [Entitic mass] 29.5 pg 27.0-32.0 [facility] Mean corpuscular hemoglobin concentration (MCHC) determinationOrdered By: Latesha Zafar on 07-16-2024 MCHC (RBC) [Mass/Vol] 32.9 g/dL 32-36 [facility] Mean platelet volume determi nationOrdered By: Latesha Zafar on 07-16-2024 Platelet mean volume (Bld) [Entitic vol] 10.0 fL 6.2-12.0 [facility] Monocyte percentageOrdered B y: Latesha Zafar on 07-16-2024 Monocytes/100 WBC (Bld) 7.7 % 0-10 [facility] Neutrophil percentageOrdered By: Latesha Zafar on 07-16-2024 Neutrophils/100 WBC (Bld) 57.7 % 47-70 [facility] Nucleated red blood cell per centageOrdered By: Latesha Zafar on 07-16-2024 Nucleated RBC/100 WBC (Bld) [Ratio] 0 % 0-5 [facility] PSA,Total - Annual Screenon 07-16-2024 PSA,TOT SCREEN 0.76 ng/mL Normal 0.02-4.00 [facility] Comment on above: Result Comment: This test was performed using the [employer] tPSA method. Measured values of a patient??sample can vary depending on the testing procedure used. PSA values determined on patient samples by different testing procedures cannot be used interchangeably. If there is a change in PSA assays while monitoring therapy, sequential testing should be performed to confirm baseline values. Performed By: #### L 100.0100, L500.4100, L501.9910, L501.9520, L500.4050, L501.9985, L506.1001 ####[facility] [address] [place], [address] Platelet countOrdered By: Esperanza Zafar on 07-16-2024 Platelets (Bld) [#/Vol] 236 10*3/uL 150-450 [facility] Potassium measurement (mass/ volume)Ordered By: Latesha Zafar on 07-16-2024 Potassium (Unsp spec) [Mass/Vol] 4.3 mmol/L 3.3-5.1 [facility] RBC Auto (Bld) [#/Vol]Ordere d By: Latesha Zafar on 07-16-2024 RBC (Bld) [#/Vol] 4.81 10*6/uL 4.6-6.2 [facility] Screening total cholesterol/ high density lipoprotein (HDL) cholesterol ratioOrdered By: Latesha Zafar on 07-16-2024 Cholesterol.total/Afsaneh sterol in HDL [Mass ratio] 3.32 {ratio} [facility] Serum creatinine measurement (mass/volume)Ordered By: Latesha Zafar on 07-16-2024 Creatinine [Mass/Vol] 0.98 mg/dL 0.70-1.20 [facility] Serum globulin measurementOr dered By: Latesha Zafar on 07-16-2024 Globulin (S) [Mass/Vol] 3.0 g/dL 2.2-4.2 [facility] Serum glucose measurement (m ass/volume)Ordered By: Latesha Zafar on 07-16-2024 Glucose [Mass/Vol] 86 mg/dL 70-99 [facility] Serum or plasma alanine white otransferase (ALT) measurementOrdered By: Latesha Zafar on 07-16-2024 ALT [Catalytic activity/Vol] 21 U/L <47 [facility] Serum or plasma albumin mingo urement (mass/volume)Ordered By: Latesha Zafar on 07-16-2024 Albumin [Mass/Vol] 4.2 g/dL 3.4-4.8 [facility] Serum or plasma albumin/glob ulin mass ratioOrdered By: Latesha Zafar on 07-16-2024 Albumin/Globulin [Mass ratio] 1.4 {ratio} 0.9-2.4 [facility] Serum or plasma alkaline wild sphatase measurementOrdered By: Latesha Zafar on 07-16-2024 ALP [Catalytic activity/Vol] 63 U/L 40-129 [facility] Serum or plasma calcium mingo urement (mass/volume)Ordered By: Latesha Zafar on 07-16-2024 Calcium [Mass/Vol] 9.3 mg/dL 7.6-11.0 [facility] Serum or plasma cholesterol in HDL measurement (mass/volume)Ordered By: Latesha Zafar on 07-16-2024 Cholesterol in HDL [Mass/Vol] 49 mg/dL >40 [facility] Comment on above: National Cholesterol Education Program (NCEP) guidelines:<40 mg/dL: Low HDL-cholesterol (major risk factor for CHD)>= 60 mg/dL: High HDL-cholesterol (negative risk factor for CHD)HDL-cholesterol is affected by a number of factors, e.g. smoking, exercise, hormones, sex and age. Serum or plasma cholesterol measurement (mass/volume)Ordered By: Latesha Zafar on 07-16-2024 Cholesterol [Mass/Vol] 163 mg/dL <201 [facility] Comment on above: Cholesterol level, D esirable <200 mg/dLBorderline high cholesterol 200-239 mg/dLHigh cholesterol >=240 mg/dLRecommendations of the NCEP Adult Treatment Panel for the following risk-cutoff thresholds for the [place] population. Serum or plasma urea nitroge n measurement (mass/volume)Ordered By: Latesha Zafar on 07-16-2024 Urea nitrogen [Mass/Vol] 15 mg/dL 4-19 [facility] Sodium levelOrdered By: Maryse Zafar on 07-16-2024 Sodium [Moles/Vol] 140 mmol/L 133-145 [facility] TSH DL <= 0.005 mIU/L QnOrde red By: Latesha Zafar on 07-16-2024 TSH Qn 1.860 uIU/mL 0.300-4.20 0 [facility] Thyroid Stim Hormone (TSH)on 07-16-2024 TSH 1.860 uIU/mL Normal 0.300-4.20 0 [facility] Comment on above: Performed By: #### L 100.0100, L500.4100, L501.9910, L501.9520, L500.4050, L501.9985, L506.1001 #### [facility] Laboratory [address] [place], [place], [id number] Total proteinOrdered By: Carol Zafar on 07-16-2024 Protein [Mass/Vol] 7.2 g/dL 5.9-8.4 [facility] Triglycerides measurementOrd ered By: Latesha Zafar on 07-16-2024 Triglyceride [Mass/Vol] 99 mg/dL <199 [facility] Comment on above: The drugs N-Acetylcy steine and Metamizole may falsely depress this assay. Normal range: <150 mg/dLBorderline High: 150-199 mg/dLHigh: 200-499 mg/dLVery High: >500 mg/dL Vitamin D,25 Hydroxyon 07-16 Vitamin D 25-OH 49.3 ng/mL Normal 30-100 [facility] Comment on above: Result Comment: Lissette min D Status Deficiency: <20 ng/mL (50nmol/L) Insufficiency: 20-30 ng/mL (50-75 nmol/L) Sufficiency: 30-100 ng/mL (75-250 nmol/L) Toxicity: >100 ng/mL (>250 nmol/L) Performed By: #### L 100.0100, L500.4100, L501.9910, L501.9520, L500.4050, L501.9985, L506.1001 ####[facility] [address] [place], [address] White blood cell (WBC) count Ordered By: Latesha Zafar on 07-16-2024 WBC (Bld) [#/Vol] 6.6 10*3/uL 4.4-11.0 [facility] MR/BMS.Bon 01-29-2024 MR/BMS.[facility] Internal Medicine [address] [place] [address] OFFICE VISIT Date of Service: 01/29/24 MR#: [id number] Acct: [id number] Name: WILLA MORROW JrLaina Rep #: [id number] : 1960 Provider: Dr. Latesha grijalva MD Age/Sex: 63/M Location: [facility] Status: Signed Intake Vital Signs 09/18/23 08:06 12/18/23 07:33 01/29/24 07:50 Height 5 ft 5 in 5 ft 5 in 5 ft 5 in Weight: 263 lb 2 oz 251 lb 253 lb 6 oz BMI 43.7 41.8 42.1 BP 124/84 H 132/84 H 153/92 H Blood Pressure Location Lt brachial Lt brachial Rt brachial Position Sitting Sitting Sitting Respiration 16 16 16 Pulse 69 74 60 Pulse Source Monitor Monitor Monitor Temp 98.6 F 97.8 F 97.8 F Temp Source Temporal Temporal Pulse Oximetry (%) 95 99 98 Oxygen Delivery Method room air room air room air Intake Visit Reasons: 5 M FU Chief Complaint: 5 m fu 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: No Accompanied by: Self Is patient in pain?: No Allergies acetaminophen (From Vicodin) Allergy (Verified 01/29/24 07:47) unknown adhesive tape Allergy (Verified 01/29/24 07:47) Rash codeine Allergy (Verified 01/29/24 07:47) Hives gabapentin (From Neurontin) Allergy (Verified 01/29/24 07:47) Hives hydrocodone (From Vicodin) Allergy (Verified 01/29/24 07:47) unknown Sulfa (Sulfonamide Antibiotics) Allergy (Verified 01/29/24 07:47) Rash Medications ???Medication ???Instructions ???Recorded ???Confirmed ???Type cholecalciferol (vitamin D3) 25 2,000 unit PO DAILY 03/29/17 01/29/24 History mcg (1,000 unit) capsule aspirin 81 mg tablet,delayed 81 mg PO DAILY 06/04/18 01/29/24 History release (Adult Low Dose Aspirin) acetaminophen 650 mg 650 mg PO PRN PRN Pain 03/22/20 01/29/24 History tablet,extended release (Tylenol Arthritis Pain) pantoprazole 40 mg tablet,delayed 40 mg PO QAM #90 tabs 04/29/23 01/29/24 Rx release losartan 50 mg tablet 50 mg PO DAILY #90 tabs 12/18/23 01/29/24 Rx Have you fallen in the past year?: No PFSH Medical History Wears contact lenses Wears glasses Diabetes Rheumatoid arthritis Arthritis Back pain Migraine headache History of hiatal hernia Gastric reflux Non-smoker CPAP (continuous positive airway pressure) dependence Redness of skin History of edema Hypertension Cardiology follow-up encounter Tinea pedis Acute maxillary sinusitis, unspecified BPV (benign positional vertigo) Rosacea KAYLEE (obstructive sleep apnea) Vitamin D deficiency Immunocompromised Eosinophilia, unspecified GERD with apnea Osteoarthritis Diaphragmatic hernia without obstruction Cervical radiculopathy Carotid stenosis Raynauds syndrome Radiculopathy of leg Daytime somnolence Tendonitis, Achilles, right Inversion sprain of right ankle Actinic keratosis Seizures Hay fever Diabetes HTN (hypertension) Surgical History History of cardiac catheterization Hx of knee surgery History of vasectomy H/O repair of rotator cuff Family History Father Sepsis ETOH abuse Mother Diabetes Hypertension Other Heart disease Osteoporosis Social History Smoking Status: Never smoker alcohol intake: current alcohol intake frequency: holidays/special occasions only Alcohol type: wine substance use type: does not use what type of physical activity do you participate in: none HPI HPI Chief Complaint: 5 m fu Details: ED CRISTHIAN, is a 63 M who presents to the office today for 4-6-month follow-up. 63-year-old gentleman has a history of borderline type 2 diabetes, not on medication treatment. Has actually kept this in check pretty well largely through diet and activity. He is overweight/obese. He has KAYLEE and has well treated sleep apnea on BiPAP. Tolerating well, benefiting from that. He has hypertension has been stable on low-dose of losartan 50 mg daily. Some chronic reflux symptoms, on pantoprazole. He is aware of a lot of things in the diet that seem to aggravate this and tries to do some avoidance. In addition he is on vitamin D and aspirin. Since our last visit, he has now decided to go ahead and retire at the end of this year. He is looking forward to this. He will continue in his [employer] activities and would like to dedicate more time to that as well as increasing and getting back to his physical activity. He had been an avid bicycle or however dropped away from that somewhat last year. May account for why the A1c went up a little bit. He works full-time currently in his [employer] activities as well as a full-time job at a local [employer] from which he will be retiring from. Review of sy (more content not included)... Normal [facility] CBC W/Diff, Automatedon 11-2 Absolute Lymph 1.71 X10 3/uL Normal 0.83-4.51 [facility] Comment on above: Performed By: #### L 100.0100, L500.4050, L506.1000, L501.9520, L501.5200, L500.4100, L501.9985 ####[facility] [address] [place], [address] Absolute Neut 3.7 X10 3/uL Normal 2.0-7.7 [facility] Comment on above: Performed By: #### L 100.0100, L500.4050, L506.1000, L501.9520, L501.5200, L500.4100, L501.9985 ####[facility] [address] [place], [address] Basophils/100 WBC (Bld) 0.5 % Normal 0-1 [facility] Comment on above: Performed By: #### L 100.0100, L500.4050, L506.1000, L501.9520, L501.5200, L500.4100, L501.9985 ####[facility] [address] [place], [address] Eosinophils/100 WBC (Bld) 4.5 % Normal 0-5 [facility] Comment on above: Performed By: #### L 100.0100, L500.4050, L506.1000, L501.9520, L501.5200, L500.4100, L501.9985 ####[facility] [address] [place], [address] Erythrocyte distribution width (RBC) [Ratio] 13.7 % Normal 11.6-14.6 [facility] Comment on above: Performed By: #### L 100.0100, L500.4050, L506.1000, L501.9520, L501.5200, L500.4100, L501.9985 ####[facility] [address] [place], [address] Hematocrit (Bld) [Volume fraction] 44.6 % Normal 40-54 [facility] Comment on above: Performed By: #### L 100.0100, L500.4050, L506.1000, L501.9520, L501.5200, L500.4100, L501.9985 ####[facility] [address] [place], [address] Hemoglobin (Bld) [Mass/Vol] 14.2 g/dL Normal 13.0-16.5 [facility] Comment on above: Performed By: #### L 100.0100, L500.4050, L506.1000, L501.9520, L501.5200, L500.4100, L501.9985 ####[facility] [address] [place], [address] IG% 0.200 Normal 0.0-0.9 [facility] Comment on above: Result Comment: IG% - Immature Granulocytes (promyelocytes, myelocytes and metamyelocytes) > 1% indicates that a LEFT SHIFT is Present. Performed By: #### L 100.0100, L500.4050, L506.1000, L501.9520, L501.5200, L500.4100, L501.9985 ####[facility] [address] [place], [address] Lymphocytes/100 WBC (Bld) 27.3 % Normal 19-41 [facility] Comment on above: Performed By: #### L 100.0100, L500.4050, L506.1000, L501.9520, L501.5200, L500.4100, L501.9985 ####[facility] [address] [place], [address] MCH (RBC) [Entitic mass] 28.3 pg Normal 27.0-32.0 [facility] Comment on above: Performed By: #### L 100.0100, L500.4050, L506.1000, L501.9520, L501.5200, L500.4100, L501.9985 ####[facility] [address] [place], [address] MCHC (RBC) [Mass/Vol] 31.8 g/dL Low 32-36 [facility] Comment on above: Performed By: #### L 100.0100, L500.4050, L506.1000, L501.9520, L501.5200, L500.4100, L501.9985 ####[facility] [address] [place], [address] MCV (RBC) [Entitic vol] 88.8 fL Normal 80-94 [facility] Comment on above: Performed By: #### L 100.0100, L500.4050, L506.1000, L501.9520, L501.5200, L500.4100, L501.9985 ####[facility] [address] [place], [address] Monocytes/100 WBC (Bld) 8.6 % Normal 0-10 [facility] Comment on above: Performed By: #### L 100.0100, L500.4050, L506.1000, L501.9520, L501.5200, L500.4100, L501.9985 ####[facility] [address] [place], [address] Neutrophils/100 WBC (Bld) 58.9 % Normal 47-70 [facility] Comment on above: Performed By: #### L 100.0100, L500.4050, L506.1000, L501.9520, L501.5200, L500.4100, L501.9985 ####[facility] [address] [place], [address] Nucleated RBC (Bld) [#/Vol] 0 10*3/uL Normal 0-5 [facility] Comment on above: Performed By: #### L 100.0100, L500.4050, L506.1000, L501.9520, L501.5200, L500.4100, L501.9985 ####[facility] [address] [place], [address] Platelet mean volume (Bld) [Entitic vol] 9.7 fL Normal 6.2-12.0 [facility] Comment on above: Performed By: #### L 100.0100, L500.4050, L506.1000, L501.9520, L501.5200, L500.4100, L501.9985 ####[facility] [address] [place], [address] Platelets (Bld) [#/Vol] 240 10*3/uL Normal 150-450 [facility] Comment on above: Performed By: #### L 100.0100, L500.4050, L506.1000, L501.9520, L501.5200, L500.4100, L501.9985 ####[facility] [address] [place], [address]( RBC (Bld) [#/Vol] 5.02 10*6/uL Normal 4.6-6.2 [facility] Comment on above: Performed By: #### L 100.0100, L500.4050, L506.1000, L501.9520, L501.5200, L500.4100, L501.9985 ####[facility] [address] [place], [address]( RDW SD 44.3 fl High 35.1-43.9 [facility] Comment on above: Performed By: #### L 100.0100, L500.4050, L506.1000, L501.9520, L501.5200, L500.4100, L501.9985 ####[facility] [address] [place], [address] WBC (Bld) [#/Vol] 6.3 10*3/uL Normal 4.4-11.0 [facility] Comment on above: Performed By: #### L 100.0100, L500.4050, L506.1000, L501.9520, L501.5200, L500.4100, L501.9985 ####[facility] [address] [place], [address] Comprehensive Metabolic Prof ilon 01-21-2024 Albumin [Mass/Vol] 3.7 g/dL Normal 3.2-5.0 [facility] Comment on above: Performed By: #### L 100.0100, L500.4050, L506.1000, L501.9520, L501.5200, L500.4100, L501.9985 ####[facility] [address] [place], [address] Albumin/Globulin [Mass ratio] 1.1 {ratio} Normal 0.9-2.4 [facility] Comment on above: Performed By: #### L 100.0100, L500.4050, L506.1000, L501.9520, L501.5200, L500.4100, L501.9985 ####[facility] [address] [place], [address] ALK P 66 U/L Normal 45-117 [facility] Comment on above: Performed By: #### L 100.0100, L500.4050, L506.1000, L501.9520, L501.5200, L500.4100, L501.9985 ####[facility] [address] [place], [address] ALT [Catalytic activity/Vol] 29 U/L Normal 16-61 [facility] Comment on above: Performed By: #### L 100.0100, L500.4050, L506.1000, L501.9520, L501.5200, L500.4100, L501.9985 ####[facility] [address] [place], [address] AST [Catalytic activity/Vol] 17 U/L Normal 15-37 [facility] Comment on above: Performed By: #### L 100.0100, L500.4050, L506.1000, L501.9520, L501.5200, L500.4100, L501.9985 ####[facility] [address] [place], [address] Bilirubin [Mass/Vol] 0.40 mg/dL Normal 0.20-1.00 [facility] Comment on above: Result Comment: For patients on eltrombopag therapy, use of Dimension [place] TBIL is not recommended. Performed By: #### L 100.0100, L500.4050, L506.1000, L501.9520, L501.5200, L500.4100, L501.9985 ####[facility] [address] [place], [address] BUN/CRE 21.3 RATIO High 10-20 [facility] Comment on above: Performed By: #### L 100.0100, L500.4050, L506.1000, L501.9520, L501.5200, L500.4100, L501.9985 ####[facility] [address] [place], [address] CA,Total 8.9 mg/dL Normal 8.5-10.1 [facility] Comment on above: Performed By: #### L 100.0100, L500.4050, L506.1000, L501.9520, L501.5200, L500.4100, L501.9985 ####[facility] [address] [place], [address] Chloride [Moles/Vol] 109 mmol/L High 98-107 [facility] Comment on above: Performed By: #### L 100.0100, L500.4050, L506.1000, L501.9520, L501.5200, L500.4100, L501.9985 ####[facility] [address] [place], [address] CO2 [Moles/Vol] 28.0 mmol/L Normal 21.0-32.0 [facility] Comment on above: Performed By: #### L 100.0100, L500.4050, L506.1000, L501.9520, L501.5200, L500.4100, L501.9985 ####[facility] [address] [place], [address] Creatinine [Mass/Vol] 0.94 mg/dL Normal 0.70-1.30 [facility] Comment on above: Result Comment: The validity of the calculated GFR GFRAA in patients over 70 years has not been determined. Clinical correlation is essential. Performed By: #### L 100.0100, L500.4050, L506.1000, L501.9520, L501.5200, L500.4100, L501.9985 ####[facility] [address] [place], [place], [id number](555) EST GFR - AA 104 mL/min Normal >60 [facility] Comment on above: Result Comment: Afri can [place] GFR Calc Performed By: #### L 100.0100, L500.4050, L506.1000, L501.9520, L501.5200, L500.4100, L501.9985 ####[facility] [address] [place], [place], [id number] GAP 4 Low 5-15 [facility] Comment on above: Performed By: #### L 100.0100, L500.4050, L506.1000, L501.9520, L501.5200, L500.4100, L501.9985 ####[facility] [address] [place], [address] GFR/1.73 sq M.predicted among non-blacks MDRD (S/P/Bld) [Vol rate/Area] 86 mL/min/{1.73_m2} Normal >60 [facility] Comment on above: Result Comment: Non- GFR Calc Performed By: #### L 100.0100, L500.4050, L506.1000, L501.9520, L501.5200, L500.4100, L501.9985 ####[facility] [address] [place], [address] Globulin (S) [Mass/Vol] 3.5 g/dL Normal 2.2-4.2 [facility] Comment on above: Performed By: #### L 100.0100, L500.4050, L506.1000, L501.9520, L501.5200, L500.4100, L501.9985 ####[facility] [address] [place], [address] Glucose [Mass/Vol] 102 mg/dL Normal 74-106 [facility] Comment on above: Result Comment: Fast ing Glucose result from 100 to 125 mg/dL suggests IMPAIRED HOMEOSTASIS per A.D.A. criteria. Performed By: #### L 100.0100, L500.4050, L506.1000, L501.9520, L501.5200, L500.4100, L501.9985 ####[facility] [address] [place], [address] Potassium [Moles/Vol] 4.0 mmol/L Normal 3.5-5.1 [facility] Comment on above: Performed By: #### L 100.0100, L500.4050, L506.1000, L501.9520, L501.5200, L500.4100, L501.9985 ####[facility] [address] [place], [address] Sodium [Moles/Vol] 141 mmol/L Normal 136-145 [facility] Comment on above: Performed By: #### L 100.0100, L500.4050, L506.1000, L501.9520, L501.5200, L500.4100, L501.9985 ####[facility] [address] [place], [address] T PROT 7.2 g/dL Normal 6.4-8.2 [facility] Comment on above: Performed By: #### L 100.0100, L500.4050, L506.1000, L501.9520, L501.5200, L500.4100, L501.9985 ####[facility] [address] [place], [address] Urea nitrogen [Mass/Vol] 20 mg/dL High 7-18 [facility] Comment on above: Performed By: #### L 100.0100, L500.4050, L506.1000, L501.9520, L501.5200, L500.4100, L501.9985 ####[facility] [address] [place], [address] Hemoglobin A1con 01-21-2024 HbA1c (Bld) [Mass fraction] 6.0 % High 3.8-5.6 [facility] Comment on above: Result Comment: Norm al < 5.7 % Prediabetic 5.7 - 6.4 % Diabetic >or= 6.5 % Please note range changes. Performed By: #### L 100.0100, L500.4050, L506.1000, L501.9520, L501.5200, L500.4100, L501.9985 ####[facility] [address] [place], [address] Lipid Profileon 01-21-2024 Cholesterol [Mass/Vol] 144 mg/dL Normal 200 [facility] Comment on above: Result Comment: <200 mg/dL Desirable 200-240 mg/dL Borderline >240 mg/dL High Risk Performed By: #### L 100.0100, L500.4050, L506.1000, L501.9520, L501.5200, L500.4100, L501.9985 ####[facility] [address] [place], [address] Cholesterol in HDL [Mass/Vol] 53 mg/dL Normal [facility] Comment on above: Result Comment: The drugs N-Acetylcysteine and Metamizole may falsely depress this assay. Reference Range HDL <40 mg/dL Low HDL Cholesterol HDL >or= 60 mg/dL High HDL Cholesterol Performed By: #### L 100.0100, L500.4050, L506.1000, L501.9520, L501.5200, L500.4100, L501.9985 ####[facility] [address] [place], [address] Cholesterol in LDL [Mass/Vol] 77 mg/dL Normal 0-130 [facility] Comment on above: Performed By: #### L 100.0100, L500.4050, L506.1000, L501.9520, L501.5200, L500.4100, L501.9985 ####[facility] [address] [place], [address] Cholesterol in VLDL [Mass/Vol] 14 mg/dL Normal 5-40 [facility] Comment on above: Performed By: #### L 100.0100, L500.4050, L506.1000, L501.9520, L501.5200, L500.4100, L501.9985 ####[facility] [address] [place], [address] Triglyceride [Mass/Vol] 72 mg/dL Normal [facility] Comment on above: Result Comment: The drugs N-Acetylcysteine and Metamizole may falsely depress this assay. Serum Triglycerides Reference Interval Normal <150 mg/dL Borderline high 150 - 199 mg/dL High 200 - 499 mg/dL Very High > or = 500 mg/dL Performed By: #### L 100.0100, L500.4050, L506.1000, L501.9520, L501.5200, L500.4100, L501.9985 ####[facility] [id number] [place], [address] Magnesiumon 01-21-2024 Magnesium [Mass/Vol] 1.9 mg/dL Normal 1.6-2.6 [facility] Comment on above: Performed By: #### L 100.0100, L500.4050, L506.1000, L501.9520, L501.5200, L500.4100, L501.9985 ####[facility] [id number] [place], [address] Thyroid Stim Hormone (TSH)on 01-21-2024 TSH 1.550 uIU/mL Normal 0.358-3.74 0 [facility] Comment on above: Performed By: #### L 100.0100, L500.4050, L506.1000, L501.9520, L501.5200, L500.4100, L501.9985 ####[facility] [id number] [place], [address] Vitamin D,25 Hydroxyon 01-20 Vitamin D 25-OH 54.5 ng/mL Normal [facility] Comment on above: Result Comment: Lissette min D 25(OH) Status Range Deficiency <20 ng/mL (50nmol/L) Insufficiency 20 - 30 ng/mL (50 - 75 nmol/L) Sufficiency 30 - 100 ng/mL (75 - 250 nmol/L) Toxicity >100 ng/mL (>250 nmol/L) Performed By: #### L 100.0100, L500.4050, L506.1000, L501.9520, L501.5200, L500.4100, L501.9985 ####[facility] [id number] [facility] [address] [facility] [address] [place], [place], [id number] Pulmonary Visit Reporton Pulmonary Visit Report [facility] [address] [place], [place] [address] OFFICE VISIT Date of Service: 12/18/23 MR#: [id number] Acct: [id number] Name: WILLA MORROW Laina Rep #: [id number] : 1960 Provider: SHANON Coley Age/Sex: 63/M [place] [facility] Status: Signed Assessment and Plan Assessment and Plan (1) KAYLEE (obstructive sleep apnea): Status: Chronic Comment: On BiPAP 14/10 cmH2O with residual AHI of 0.4 Plan: Stable, he is using and benefiting from Pap therapy. No indication for titration study at this time. Contact the office for any new or worsening symptoms in the meantime. Follow-up in 1 year. (2) Obesity: Status: Chronic Qualifiers: Body mass index: BMI 40.0-44.9 Obesity classification: adult class 3 (BMI >= 40) Obesity type: due to excess calories Serious obesity comorbidity presence: with serious comorbidity Qualified Code(s): E66.813 - Obesity, class 3; E66.01 - Morbid (severe) obesity due to excess calories; Z68.41 - Body mass index [BMI] 40.0-44.9, adult Plan: Complicates exam, plan, care and prognosis. Continue to encourage weight loss. Plan Details Follow Up: 1 Year ([facility]) HPI 1 Y FU Chief Complaint: Sleep apnea HPI Comments Details: This patient presents to the office today to follow-up on his obstructive sleep apnea. He is ambulatory and currently on room air. He has not been seen in the ED or urgent care for any respiratory illnesses since his last office visit. He has not required any antibiotics or prednisone for any breathing problems. He denies any difficulty with shortness of breath. He denies any cough, sputum production or hemoptysis. He has not had any wheezing, chest tightness, chest pain or palpitations. He also denies any fever, chills or body aches. The patient reports that he wears his Pap device nightly. He denies any difficulty with dry mouth, nocturia, morning headaches or mask leaks. He is not requiring naps. He is not nodding off to sleep unintentionally. Unfortunately, he has never felt more rested with use of his PAP device. He does report that he works 2 full-time jobs and will be retiring from 1 job the end of this year. Compliance report for the past 30 days shows 100% compliance with an average use of 8 hours and 19 minutes per night. Current setting is 14/10 cmH2O with a residual AHI of 0.3 events per hour. Leaks do not appear to be an issue. Intake Vital Signs 11/28/22 06:01 09/18/23 08:06 12/18/23 07:33 Height 5 ft 5 in 5 ft 5 in 5 ft 5 in Weight: 251 lb BMI 41.8 BP 132/84 H Blood Pressure Location Lt brachial Position Sitting Respiration 16 Pulse 74 Pulse Source Monitor Temp 97.8 F Temperature Source Temporal Artery Pulse Oximetry (%) 99 Oxygen Delivery Method room air Intake Visit Reasons: 1 Y FU Chief Complaint: 1 year f/u DME Vendor: Salvador Accompanied by: Self Allergies acetaminophen (From Vicodin) Allergy (Verified 12/18/23 07:49) unknown adhesive tape Allergy (Verified 12/18/23 07:49) Rash codeine Allergy (Verified 12/18/23 07:49) Hives gabapentin (From Neurontin) Allergy (Verified 12/18/23 07:49) Hives hydrocodone (From Vicodin) Allergy (Verified 12/18/23 07:49) unknown Sulfa (Sulfonamide Antibiotics) Allergy (Verified 12/18/23 07:49) Rash Medications ???Medication ???Instructions ???Recorded ???Confirmed ???Type cholecalciferol (vitamin D3) 25 2,000 unit PO DAILY 03/29/17 12/18/23 History mcg (1,000 unit) capsule aspirin 81 mg tablet,delayed 81 mg PO DAILY 06/04/18 12/18/23 History release (Adult Low Dose Aspirin) acetaminophen 650 mg 650 mg PO PRN PRN Pain 03/22/20 12/18/23 History tablet,extended release (Tylenol Arthritis Pain) losartan 50 mg tablet 50 mg PO DAILY #90 tabs 03/20/23 12/18/23 Rx pantoprazole 40 mg tablet,delayed 40 mg PO QAM #90 tabs 04/29/23 12/18/23 Rx release Have you fallen in the past year?: No PFSH Medical History (Reviewed 12/18/23 @ 07:57 by Neyda Coley [employer], [employer]) Wears contact lenses Wears glasses Diabetes Rheumatoid arthritis Arthritis Back pain Migraine headache History of hiatal hernia Gastric reflux Non-smoker CPAP (continuous positive airway pressure) dependence Redness of skin History of edema Hypertension Cardiology follow-up encounter Tinea pedis Acute maxillary sinusitis, unspecified BPV (benign positional vertigo) Rosacea KAYLEE (obstructive sleep apnea) Vitamin D deficiency Immunocompromised Eosinophilia, unspecified GERD with apnea Osteoarthritis Diaphragmatic hernia without obstruction Cervical radiculopathy Carotid stenosis Raynauds syndrome Radiculopathy of leg Daytime somnolence Tendonitis, Achilles, right Inversion sprain of right ankle Actinic keratosi (more content not included)... Normal [facility] Absolute lymphocyte countOrd ered By: Latesha Zafar on 03-20-2023 Lymphocytes Auto (Unsp spec) [#/Vol] 1.63 10*3/uL 0.83-4.51 [facility] Automated lymphocyte count a s percentage of total leukocytesOrdered By: Latesha Zafar on 03-20-2023 Lymphocytes/100 WBC Auto (Unsp spec) 28.1 % 19-41 [facility] Basophil percentageOrdered B y: Latesha Zafar on 03-20-2023 Basophils/100 WBC (Bld) 0.5 % 0-1 [facility] Bilirubin [Mass/Vol] 0.50 mg/dL 0.20-1.00 [facility] Comment on above: For patients on eltr ombopag therapy, use of Dimension [place] TBIL is not recommended. Chloride [Moles/Vol] 108 mmol/L 98-107 [facility] Cholesterol [Mass/Vol] 161 mg/dL <200 [facility] Comment on above: <200 mg/dL Desirable 200-240 mg/dL Borderline >240 mg/dL High Risk Eosinophils/100 WBC (Bld) 5.3 % 0-5 [facility] Glucose [Mass/Vol] 106 mg/dL 74-106 [facility] Comment on above: Fasting Glucose resu lt from 100 to 125 mg/dL suggests IMPAIRED HOMEOSTASIS per A.D.A. criteria. Hemoglobin (Bld) [Mass/Vol] 14.1 g/dL 13.0-16.5 [facility] Monocytes/100 WBC (Bld) 9.0 % 0-10 [facility] Neutrophils (Bld) [#/Vol] 3.3 10*3/uL 2.0-7.7 [facility] Neutrophils/100 WBC (Bld) 56.8 % 47-70 [facility] Potassium [Moles/Vol] 4.1 mmol/L 3.5-5.1 [facility] Protein [Mass/Vol] 7.6 g/dL 6.4-8.2 [facility] Sodium [Moles/Vol] 136 mmol/L 136-145 [facility] Triglyceride [Mass/Vol] 106 mg/dL <199 [facility] Comment on above: The drugs N-Acetylcy steine and Metamizole may falsely depress this assay.Serum Triglycerides Reference Interval Normal <150 mg/dL Borderline high 150 - 199 mg/dL High 200 - 499 mg/dL Very High > or = 500 mg/dL WBC (Bld) [#/Vol] 5.8 10*3/uL 4.4-11.0 [facility] Determination of erythrocyte mean corpuscular volume (MCV)Ordered By: Latesha Zafar on 03-20-2023 MCV (RBC) [Entitic vol] 89.0 fL 80-94 [facility] Erythrocyte distribution wid th ratioOrdered By: Lateshaisidra Zafar on 03-20-2023 Erythrocyte distribution width (RBC) [Ratio] 13.4 % 11.6-14.6 [facility] Erythrocyte distribution wid th standard deviationOrdered By: Lateshaisidra Zafar on 03-20-2023 Erythrocyte distribution width (RBC) [Entitic vol] 43.6 fL 35.1-43.9 [facility] Hematocrit Auto (Bld) [Volum e fraction]Ordered By: Latesha Zafar on 03-20-2023 Hematocrit (Bld) [Volume fraction] 43.9 % 40-54 [facility] High density lipoprotein (HD L) measurementOrdered By: Latesha Zafar on 03-20-2023 Cholesterol in HDL (Body fld) [Mass/Vol] 51 mg/dL >40 [facility] Comment on above: The drugs N-Acetylcy steine and Metamizole may falsely depress this assay. Reference Range HDL <40 mg/dL Low HDL Cholesterol HDL >or= 60 mg/dL High HDL Cholesterol Immature granulocytes/100 WB C Auto (Bld)Ordered By: Latesha Zafar on 03-20-2023 Immature granulocytes/100 WBC (Bld) 0.300 % 0.0-0.9 [facility] Comment on above: IG% - Immature Granu locytes (promyelocytes, myelocytes and metamyelocytes) > 1% indicates that a LEFT SHIFT is Present. Laboratory - Chemistry and C hemistry - challengeOrdered By: Latesha Zafar on 03-20-2023 Albumin/Globulin [Mass ratio] 0.9 {ratio} 0.9-2.4 [facility] ALP [Catalytic activity/Vol] 74 U/L 45-117 [facility] ALT [Catalytic activity/Vol] 33 U/L 16-61 [facility] CO2 [Moles/Vol] 26.0 mmol/L 21.0-32.0 [facility] Globulin (S) [Mass/Vol] 3.9 g/dL 2.2-4.2 [facility] Magnesium [Mass/Vol] 2.6 mg/dL 1.6-2.6 [facility] Urea nitrogen/Creatinine [Mass ratio] 20.6 mg/mg 10-20 [facility] Laboratory - Hematology and Cell countsOrdered By: Latesha Zafar on 03-20-2023 MCH (RBC) [Entitic mass] 28.6 pg 27.0-32.0 [facility] MCHC (RBC) [Mass/Vol] 32.1 g/dL 32-36 [facility] Nucleated RBC/100 WBC (Bld) [Ratio] 0 % 0-5 [facility] Platelets (Bld) [#/Vol] 248 10*3/uL 150-450 [facility] Low density lipoprotein (LDL ) cholesterol measurementOrdered By: Latesha Zafar on 03-20-2023 Cholesterol in LDL (Body fld) [Moles/Vol] 89 mg/dL 0-130 [facility] No Panel InformationOrdered By: Latesha Zafar on 03-20-2023 Estimated GFR (MDRD) Amer 100 mL/min >60 [facility] Comment on above: GFR Calc Estimated GFR (MDRD) Non-Af Amer 83 mL/min >60 [facility] Comment on above: Non- GFR Calc Vitamin D 25-Hydroxy 61.8 ng/mL [facility] Comment on above: Vitamin D 25(OH) Sta tus Range Deficiency <20 ng/mL (50nmol/L) Insufficiency 20 - 30 ng/mL (50 - 75 nmol/L) Sufficiency 30 - 100 ng/mL (75 - 250 nmol/L) Toxicity >100 ng/mL (>250 nmol/L) Platelet mean volume Wilbert-Ec ker (Bld) [Entitic vol]Ordered By: Latesha Zafar on 03-20-2023 Platelet mean volume (Bld) [Entitic vol] 9.9 fL 6.2-12.0 [facility] RBC Auto (Bld) [#/Vol]Ordere d By: Latesha Zafar on 03-20-2023 RBC (Bld) [#/Vol] 4.93 10*6/uL 4.6-6.2 [facility] Screening prostate specific antigen (PSA) measurementOrdered By: Latesha Zafar on 03-20-2023 Prostate specific Ag IA [Mass/Vol] 0.94 ng/mL 0.00-4.00 [facility] Comment on above: This test was perfor med using the TPSA assay method for the[employer] chemistry system. Values obtained with differentassay methods cannot be used interchangably.When changing PSA assays in the course of monitoring apatient, additional sequential testing should be carriedout to confirm baseline values. Serum or plasma calcium mingo urement (mass/volume)Ordered By: Latesha Zafar on 03-20-2023 Calcium [Mass/Vol] 9.1 mg/dL 8.5-10.1 [facility] Serum or plasma creatinine m easurement (mass/volume)Ordered By: Latesha Zafar on 03-20-2023 Creatinine [Mass/Vol] 0.97 mg/dL 0.70-1.30 [facility] Comment on above: The validity of the calculated GFR & GFRAA in patients over 70 years has not been determined. Clinical correlation is essential. Serum or plasma thyroid stim ulating hormone (TSH) measurement (units/volume)Ordered By: Latesha Zafar on 03-20-2023 TSH Qn 1.94 uIU/mL 0.358-3.74 [facility] Serum or plasma urea nitroge n measurement (mass/volume)Ordered By: Latesha Zafar on 03-20-2023 Urea nitrogen [Mass/Vol] 20 mg/dL 7-18 [facility] Thin prep Papanicolaou smear with manual screeningOrdered By: Latesha Zafar on 03-20-2023 Thin prep Papanicolaou smear with manual screening 3.7 g/dL 3.2-5.0 [facility] Thin prep Papanicolaou smear with manual screening 19 U/L 15-37 [facility] Thin prep Papanicolaou smear with manual screening 2 5-15 [facility] Very low density lipoprotein (VLDL) cholesterol measurementOrdered By: Latesha Zafar on 03-20-2023 Cholesterol in VLDL Calc [Moles/Vol] 21 mg/dL 5-40 [facility] Whole blood hemoglobin A1c/t otal hemoglobin ratio (mass fraction)Ordered By: Latesha Zafar on 03-20-2023 HbA1c (Bld) [Mass fraction] 5.8 % 3.8-5.6 [facility] Comment on above: Normal < 5.7 % Predi abetic 5.7 - 6.4 % Diabetic >or= 6.5 % Please note range changes. Absolute lymphocyte countOrd ered By: Latesha Zafar on 09-12-2022 Lymphocytes Auto (Unsp spec) [#/Vol] 1.57 10*3/uL 0.83-4.51 [facility] Basophil percentageOrdered B y: Latesha Zafar on 09-12-2022 Basophils/100 WBC (Bld) 0.6 % 0-1 [facility] Bilirubin [Mass/Vol] 0.50 mg/dL 0.20-1.00 [facility] Comment on above: For patients on eltr ombopag therapy, use of Dim[place] TBIL is not recommended. Chloride [Moles/Vol] 105 mmol/L 98-107 [facility] Cholesterol [Mass/Vol] 151 mg/dL <200 [facility] Comment on above: <200 mg/dL Desirable 200-240 mg/dL Borderline >240 mg/dL High Risk Eosinophils/100 WBC (Bld) 2.7 % 0-5 [facility] Glucose [Mass/Vol] 97 mg/dL 74-106 [facility] Neutrophils (Bld) [#/Vol] 2.9 10*3/uL 2.0-7.7 [facility] Neutrophils/100 WBC (Bld) 55.6 % 47-70 [facility] Potassium [Moles/Vol] 4.3 mmol/L 3.5-5.1 [facility] Protein [Mass/Vol] 7.5 g/dL 6.4-8.2 [facility] Sodium [Moles/Vol] 139 mmol/L 136-145 [facility] Triglyceride [Mass/Vol] 65 mg/dL <199 [facility] Comment on above: The drugs N-Acetylcy steine and Metamizole may falsely depress this assay.Serum Triglycerides Reference Interval Normal <150 mg/dL Borderline high 150 - 199 mg/dL High 200 - 499 mg/dL Very High > or = 500 mg/dL WBC (Bld) [#/Vol] 5.2 10*3/uL 4.4-11.0 [facility] Blood erythrocytes count (nu mber/volume)Ordered By: Latesha Zafar on 09-12-2022 RBC (Bld) [#/Vol] 4.91 10*6/uL 4.6-6.2 [facility] Blood hemoglobin measurement (mass/volume)Ordered By: Latesha Zafar on 09-12-2022 Hemoglobin (Bld) [Mass/Vol] 14.6 g/dL 13.0-16.5 [facility] Blood lymphocytes/100 leukoc ytesOrdered By: Latesha Zafar on 09-12-2022 Lymphocytes/100 WBC (Bld) 30.4 % 19-41 [facility] Blood monocytes/100 leukocyt esOrdered By: Latesha Zafar on 09-12-2022 Monocytes/100 WBC (Bld) 10.3 % 0-10 [facility] Blood platelet mean volumeOr dered By: Latesha Zafar on 09-12-2022 Platelet mean volume (Bld) [Entitic vol] 9.8 fL 6.2-12.0 [facility] Determination of erythrocyte mean corpuscular volume (MCV)Ordered By: Latesha Zafar on 09-12-2022 MCV (RBC) [Entitic vol] 92.7 fL 80-94 [facility] Hematocrit Auto (Bld) [Volum e fraction]Ordered By: Latesha Zafar on 09-12-2022 Hematocrit (Bld) [Volume fraction] 45.5 % 40-54 [facility] Laboratory - Chemistry and C hemistry - challengeOrdered By: Latesha Zafar on 09-12-2022 ALP [Catalytic activity/Vol] 56 U/L 45-117 [facility] ALT [Catalytic activity/Vol] 30 U/L 16-61 [facility] CO2 [Moles/Vol] 28.0 mmol/L 21.0-32.0 [facility] Globulin (S) [Mass/Vol] 3.7 g/dL 2.2-4.2 [facility] Urea nitrogen/Creatinine [Mass ratio] 23.5 mg/mg 10-20 [facility] Laboratory - Hematology and Cell countsOrdered By: Latesha Zafar on 09-12-2022 Erythrocyte distribution width (RBC) [Entitic vol] 46.8 fL 35.1-43.9 [facility] Erythrocyte distribution width (RBC) [Ratio] 13.8 % 11.6-14.6 [facility] Immature granulocytes/100 WBC (Bld) 0.400 % 0.0-0.9 [facility] Comment on above: IG% - Immature Granu locytes (promyelocytes, myelocytes and metamyelocytes) > 1% indicates that a LEFT SHIFT is Present. MCH (RBC) [Entitic mass] 29.7 pg 27.0-32.0 [facility] Nucleated RBC/100 WBC (Bld) [Ratio] 0 % 0-5 [facility] MCHC Auto (RBC) [Mass/Vol]Or dered By: Latesha Zafar on 09-12-2022 MCHC (RBC) [Mass/Vol] 32.1 g/dL 32-36 [facility] No Panel InformationOrdered By: Latesha Zafar on 09-12-2022 Estimated GFR (MDRD) Amer 105 mL/min >60 [facility] Comment on above: GFR Calc Estimated GFR (MDRD) Non-Af Amer 86 mL/min >60 [facility] Comment on above: Non- GFR Calc Thyroid Stimulating Hormone (TSH) 1.42 uIU/mL 0.358-3.74 [facility] Vitamin D 25-Hydroxy 65.4 ng/mL [facility] Comment on above: Vitamin D 25(OH) Sta tus Range Deficiency <20 ng/mL (50nmol/L) Insufficiency 20 - 30 ng/mL (50 - 75 nmol/L) Sufficiency 30 - 100 ng/mL (75 - 250 nmol/L) Toxicity >100 ng/mL (>250 nmol/L) Platelets bldOrdered By: Carol Zafar on 07-19-2023 Platelets (Bld) [#/Vol] 237 10*3/uL 150-450 [facility] Serum or plasma albumin mingo urement (mass/volume)Ordered By: Latesha Zafar on 09-12-2022 Albumin [Mass/Vol] 3.8 g/dL 3.2-5.0 [facility] Serum or plasma albumin/glob ulin mass ratioOrdered By: Latesha Zafar on 09-12-2022 Albumin/Globulin [Mass ratio] 1.0 {ratio} 0.9-2.4 [facility] Serum or plasma calcium mingo urement (mass/volume)Ordered By: Latesha Zafar on 09-12-2022 Calcium [Mass/Vol] 9.2 mg/dL 8.5-10.1 [facility] Serum or plasma cholesterol in HDL measurement (mass/volume)Ordered By: Latesha Zafar on 09-12-2022 Cholesterol in HDL [Mass/Vol] 57 mg/dL >40 [facility] Comment on above: The drugs N-Acetylcy steine and Metamizole may falsely depress this assay. Reference Range HDL <40 mg/dL Low HDL Cholesterol HDL >or= 60 mg/dL High HDL Cholesterol Serum or plasma cholesterol in VLDL measurement (mass/volume)Ordered By: Latesha Zafar on 09-12-2022 Cholesterol in VLDL [Mass/Vol] 13 mg/dL 5-40 [facility] Serum or plasma creatinine m easurement (mass/volume)Ordered By: Latesha Zafar on 09-12-2022 Creatinine [Mass/Vol] 0.94 mg/dL 0.70-1.30 [facility] Comment on above: The validity of the calculated GFR & GFRAA in patients over 70 years has not been determined. Clinical correlation is essential. Serum or plasma low density lipoprotein (LDL) cholesterol measurement (mass/volume)Ordered By: Latesha Zafar on 09-12-2022 Cholesterol in LDL [Mass/Vol] 81 mg/dL 0-130 [facility] Serum or plasma urea nitroge n measurement (mass/volume)Ordered By: Latesha Zafar on 09-12-2022 Urea nitrogen [Mass/Vol] 22 mg/dL 7-18 [facility] Thin prep Papanicolaou smear with manual screeningOrdered By: Latesha Zafar on 09-12-2022 Thin prep Papanicolaou smear with manual screening 16 U/L 15-37 [facility] Thin prep Papanicolaou smear with manual screening 6 5-15 [facility] Whole blood hemoglobin A1c/t otal hemoglobin ratio (mass fraction)Ordered By: Latesha Zafar on 09-12-2022 HbA1c (Bld) [Mass fraction] 5.9 % 3.8-5.6 [facility] Comment on above: Normal < 5.7 % Predi abetic 5.7 - 6.4 % Diabetic >or= 6.5 % Please note range changes. No Panel Informationon 09-27 Prostate Specific Antigen Screen 0.80 ng/mL 0.00-4.00 [facility] Work Phone: Comment on above: This test was perfor med using the TPSA assay method for [employer] chemistry system. Values obtained with differentassay methods cannot be used interchangably.When changing PSA assays in the course of monitoring apatient, additional sequential testing should be carriedout to confirm baseline values. Absolute lymphocyte counton 09-20-2021 Lymphocytes Auto (Unsp spec) [#/Vol] 1.59 10*3/uL 0.83-4.51 [facility] Work Phone: Basophil percentageon 2021 Basophils/100 WBC (Bld) 0.6 % 0-1 [facility] Work Phone: Bilirubin [Mass/Vol] 0.60 mg/dL 0.20-1.00 [facility] Work Phone: Comment on above: For patients on eltr ombopag therapy, use of Dim[place] TBIL is not recommended. Chloride [Moles/Vol] 106 mmol/L 98-107 [facility] Work Phone: Cholesterol [Mass/Vol] 142 mg/dL <200 [facility] Work Phone: Comment on above: <200 mg/dL Desirable 200-240 mg/dL Borderline >240 mg/dL High Risk Eosinophils/100 WBC (Bld) 4.0 % 0-5 [facility] Work Phone: Glucose [Mass/Vol] 97 mg/dL 74-106 [facility] Work Phone: Neutrophils (Bld) [#/Vol] 2.5 10*3/uL 2.0-7.7 [facility] Work Phone: Neutrophils/100 WBC (Bld) 52.3 % 47-70 [facility] Work Phone: Potassium [Moles/Vol] 3.8 mmol/L 3.5-5.1 [facility] Work Phone: Protein [Mass/Vol] 7.5 g/dL 6.4-8.2 [facility] Work Phone: Sodium [Moles/Vol] 139 mmol/L 136-145 [facility] Work Phone: Triglyceride [Mass/Vol] 49 mg/dL <199 [facility] Work Phone: Comment on above: The drugs N-Acetylcy steine and Metamizole may falsely depress this assay.Serum Triglycerides Reference Interval Normal <150 mg/dL Borderline high 150 - 199 mg/dL High 200 - 499 mg/dL Very High > or = 500 mg/dL WBC (Bld) [#/Vol] 4.8 10*3/uL 4.4-11.0 [facility] Work Phone: Blood erythrocytes count (nu mber/volume)on 09-20-2021 RBC (Bld) [#/Vol] 4.94 10*6/uL 4.6-6.2 [facility] Work Phone: Blood hemoglobin measurement (mass/volume)on 09-20-2021 Hemoglobin (Bld) [Mass/Vol] 14.5 g/dL 13.0-16.5 [facility] Work Phone: Blood lymphocytes/100 leukoc yteson 09-20-2021 Lymphocytes/100 WBC (Bld) 33.1 % 19-41 [facility] Work Phone: Blood monocytes/100 leukocyt eson 09-20-2021 Monocytes/100 WBC (Bld) 9.8 % 0-10 [facility] Work Phone: Blood platelet mean volumeon 09-20-2021 Platelet mean volume (Bld) [Entitic vol] 10.0 fL 6.2-12.0 [facility] Work Phone: Determination of erythrocyte mean corpuscular volume (MCV)on 09-20-2021 MCV (RBC) [Entitic vol] 90.7 fL 80-94 [facility] Work Phone: Hematocrit Auto (Bld) [Volum e fraction]on 09-20-2021 Hematocrit (Bld) [Volume fraction] 44.8 % 40-54 [facility] Work Phone: Laboratory - Chemistry and C hemistry - challengeon 09-20-2021 ALP [Catalytic activity/Vol] 65 U/L 45-117 [facility] Work Phone: ALT [Catalytic activity/Vol] 27 U/L 16-61 [facility] Work Phone: CO2 [Moles/Vol] 29.0 mmol/L 21.0-32.0 [facility] Work Phone: Globulin (S) [Mass/Vol] 3.5 g/dL 2.2-4.2 [facility] Work Phone: Urea nitrogen/Creatinine [Mass ratio] 24.9 mg/mg 10-20 [facility] Work Phone: Laboratory - Hematology and Cell countson 09-20-2021 Erythrocyte distribution width (RBC) [Entitic vol] 45.2 fL 35.1-43.9 [facility] Work Phone: Erythrocyte distribution width (RBC) [Ratio] 13.6 % 11.6-14.6 [facility] Work Phone: Immature granulocytes/100 WBC (Bld) 0.200 % 0.0-0.9 [facility] Work Phone: Comment on above: IG% - Immature Granu locytes (promyelocytes, myelocytes and metamyelocytes) > 1% indicates that a LEFT SHIFT is Present. MCH (RBC) [Entitic mass] 29.4 pg 27.0-32.0 [facility] Work Phone: Nucleated RBC/100 WBC (Bld) [Ratio] 0 % 0-5 [facility] Work Phone: HbA1c (Bld) [Mass fraction] 6.1 % 4.2-6.3 [facility] Work Phone: MCHC Auto (RBC) [Mass/Vol]on 09-20-2021 MCHC (RBC) [Mass/Vol] 32.4 g/dL 32-36 [facility] Work Phone: No Panel Informationon 09-20 Estimated GFR (MDRD) Amer 106 mL/min >60 [facility] Work Phone: Comment on above: GFR Calc Estimated GFR (MDRD) Non-Af Amer 88 mL/min >60 [facility] Work Phone: Comment on above: Non- GFR Calc Thyroid Stimulating Hormone (TSH) 1.41 uIU/mL 0.358-3.74 [facility] Work Phone: Vitamin D 25-Hydroxy 62.9 ng/mL [facility] Work Phone: Comment on above: Vitamin D 25(OH) Sta tus Range Deficiency <20 ng/mL (50nmol/L) Insufficiency 20 - 30 ng/mL (50 - 75 nmol/L) Sufficiency 30 - 100 ng/mL (75 - 250 nmol/L) Toxicity >100 ng/mL (>250 nmol/L) Platelets bldon 09-20-2021 Platelets (Bld) [#/Vol] 220 10*3/uL 150-450 [facility] Work Phone: Serum or plasma albumin mingo urement (mass/volume)on 09-20-2021 Albumin [Mass/Vol] 4.0 g/dL 3.2-5.0 [facility] Work Phone: Serum or plasma albumin/glob ulin mass ratioon 09-20-2021 Albumin/Globulin [Mass ratio] 1.1 {ratio} 0.9-2.4 [facility] Work Phone: Serum or plasma calcium mingo urement (mass/volume)on 09-20-2021 Calcium [Mass/Vol] 9.2 mg/dL 8.5-10.1 [facility] Work Phone: Serum or plasma cholesterol in HDL measurement (mass/volume)on 09-20-2021 Cholesterol in HDL [Mass/Vol] 52 mg/dL >40 [facility] Work Phone: Comment on above: The drugs N-Acetylcy steine and Metamizole may falsely depress this assay. Reference Range HDL <40 mg/dL Low HDL Cholesterol HDL >or= 60 mg/dL High HDL Cholesterol Serum or plasma cholesterol in VLDL measurement (mass/volume)on 09-20-2021 Cholesterol in VLDL [Mass/Vol] 10 mg/dL 5-40 [facility] Work Phone: Serum or plasma creatinine m easurement (mass/volume)on 09-20-2021 Creatinine [Mass/Vol] 0.92 mg/dL 0.70-1.30 [facility] Work Phone: Comment on above: The validity of the calculated GFR & GFRAA in patients over 70 years has not been determined. Clinical correlation is essential. Serum or plasma low density lipoprotein (LDL) cholesterol measurement (mass/volume)on 09-20-2021 Cholesterol in LDL [Mass/Vol] 80 mg/dL 0-130 [facility] Work Phone: Serum or plasma urea nitroge n measurement (mass/volume)on 09-20-2021 Urea nitrogen [Mass/Vol] 23 mg/dL 7-18 [facility] Work Phone: Thin prep Papanicolaou smear with manual screeningon 09-20-2021 Thin prep Papanicolaou smear with manual screening 20 U/L 15-37 [facility] Work Phone: Thin prep Papanicolaou smear with manual screening 4 5-15 [facility] Work Phone: Basic Metabolic Profile (BMP )Ordered By: Washerette Machine Operator on 03-21-2018 Basic metabolic 2000 panel 9 1 Normal 5-15 [facility] Work Phone: Comment on above: [facility] [address] [place], [address] Basic metabolic 2000 panel 83 mL/min Normal [facility] Work Phone: Comment on above: Non- GFR Calc [facility] [address] [place], [address] Basic metabolic 2000 panel 140 mmol/L Normal 136-145 [facility] Work Phone: Comment on above: [facility] [address] [place], [address] Basic metabolic 2000 panel 8.6 mg/dL Normal 8.5-10.1 [facility] Work Phone: Comment on above: [facility] [address] [place], [address] Basic metabolic 2000 panel 100 mL/min Normal [facility] Work Phone: Comment on above: GFR Calc [facility] [address] [place], [address] Basic metabolic 2000 panel 28.0 mmol/L Normal 21.0-32.0 [facility] Work Phone: Comment on above: [facility] [address] [place], [address] Basic metabolic 2000 panel 0.99 mg/dL Normal 0.70-1.30 [facility] Work Phone: Comment on above: The validity of the calculated GFR AND GFRAA in patients over70 years has not been determined. Clinical correlation isessential. [facility] [address] [place], [place], [address] Basic metabolic 2000 panel 103 mmol/L Normal 98-107 [facility] Work Phone: Comment on above: [facility] [address] [place], [place], [phone] Basic metabolic 2000 panel 18.3 {RATIO} Normal 10-20 [facility] Work Phone: Comment on above: [facility] [address] [place], [place], [phone] Basic metabolic 2000 panel 18 mg/dL Normal 7-18 [facility] Work Phone: Comment on above: [facility] [address] [place], [place], [address] Basic metabolic 2000 panel 111 mg/dL Abnormal 74-106 [facility] Work Phone: Comment on above: Fasting Glucose resu lt from 100 to 125 mg/dLsuggests IMPAIRED HOMEOSTASIS per A.D.A. criteria.Please note revised GLUCOSE reference range /02/2018. [facility] [address] [place], [place], [phone] Basic metabolic 2000 panel 4.3 mmol/L Normal 3.5-5.1 [facility] Work Phone: Comment on above: [facility] [address] [place], [place], [phone] CBC W/Diff, AutomatedOrdered By: Washerette Machine Operator on 03-21-2018 Absolute Neut 4.7 {X10_3/uL} Normal 2.0-7.7 [facility] Work Phone: Comment on above: [facility] [address] [place], [place], [id number] Basophils/100 WBC (Bld) 0.3 % Normal 0-1 [facility] Work Phone: Comment on above: [facility] [address] [place], [place], [phone] Eosinophils/100 WBC (Bld) 6.2 % Abnormal 0-5 [facility] Work Phone: Comment on above: [facility] [address] [place], [place], [phone] Erythrocyte distribution width Ratio (RBC) 14.9 % Abnormal 11.6-14.6 [facility] Work Phone: Comment on above: [facility] [address] [place], [place], [phone] Hematocrit Volume Fraction (Bld) 42.2 % Normal 40-54 [facility] Work Phone: Comment on above: [facility] [address] [place], [place], [phone] Hemoglobin mass conc (Bld) 13.5 g/dL Normal 13.0-16.5 [facility] Work Phone: Comment on above: [facility] [address] [place], [place], [phone] IM GRAN % 0.300 % Normal 0.0-0.9 [facility] Work Phone: Comment on above: IG% - Immature Granu locytes (promyelocytes, myelocytes andmetamyelocytes) > 1% indicates that a LEFT SHIFT is Present. [facility] [address] [place], [place], [phone] Lymphocytes #/vol (Bld) 1.71 {X10_3/ul} Normal 0.83-4. 51 [facility] Work Phone: Comment on above: [facility] [address] [place], [address] Lymphocytes/100 WBC (Bld) 22.4 % Normal 19-41 [facility] Work Phone: Comment on above: [facility] [address] [place], [address] MCH Entitic mass (RBC) 29.3 pg Normal 27.0-32.0 [facility] Work Phone: Comment on above: [facility] [address] [place], [place], [phone] MCHC mass conc (RBC) 32.0 {g/gl} Normal 32-36 Com prehens[facility] Work Phone: Comment on above: [facility] [address] [place], [place], [phone](124) MCV Entitic volume (RBC) 91.7 fL Normal 80-94 [facility] Work Phone: Comment on above: [facility] [address] [place], [address] Monocytes/100 WBC (Bld) 9.0 % Normal 0-10 [facility] Work Phone: Comment on above: [facility] [address] [place], [address] Neutrophils/100 WBC (Bld) 61.8 % Normal 47-70 [facility] Work Phone: Comment on above: [facility] [address] [place], [place], [phone] Platelet mean volume Entitic volume (Bld) 10.1 fL Normal 6.2-12.0 Comprehensi [facility] Work Phone: Comment on above: [facility] [address] [place], [address] Platelets #/vol (Bld) 251 10*3/uL Normal 150-450 [facility] Work Phone: Comment on above: [facility] [address] [place], [address] RBC #/vol (Bld) 4.60 {M/mm3} Normal 4.6-6.2 Compre[facility] Work Phone: Comment on above: [facility] [address] [place], [place], [address] RDW SD 48.9 fL Abnormal 35.1-43.9 [facility] Work Phone: Comment on above: [facility] [address] [place], [address] WBC #/vol (Bld) 7.6 10*3/uL Normal 4.4-11.0 Comprehe ns[facility] Work Phone: Comment on above: [facility] [address] [place], [address] HIV - WCHOrdered By: Washerette Machine Operator on 03-21-2018 HIV - [facility] Non-Reactive Normal Comprehensiv e [facility] Work Phone: Comment on above: [facility] [address] [place], [address] Hepatitis C AntibodiesOrdere d By: Washerette Machine Operator on 03-21-2018 Hepatitis C Antibodies <0.1 Normal 0.0-0.9 [facility] Work Phone: Comment on above: Negative: < 0.8 Inde terminate: 0.8 - 0.9 Positive: > 0.9 The CDC recommends that a positive HCV antibody result be followed up with a HCV Nucleic Acid Amplification test (101915).Performed at: [facility] [id number] Director: Long Weiner PhD, Phone: [phone] at: [facility] LabCo[address] [id number] Director: Marleny Chapman MD, Phone: [phone] Is Patient Fasting? [facility] (refer to report for specific site)refer to report for address and phone number Immunoglobulins G/A/M/EOrder ed By: Washerette Machine Operator on 03-21-2018 Immunoglobulins G/A/M/E 1060 mg/dL Normal 700-1600 [facility] Work Phone: Comment on above: Is Patient Fasting? [facility] (refer to report for specific site)refer to report for address and phone number Immunoglobulins G/A/M/E 85 mg/dL Abnormal 90-386 [facility] Work Phone: Comment on above: Is Patient Fasting? [facility] (refer to report for specific site)refer to report for address and phone number Immunoglobulins G/A/M/E 51 mg/dL Normal 20-172 [facility] Work Phone: Comment on above: Is Patient Fasting? [facility] (refer to report for specific site)refer to report for address and phone number Immunoglobulins G/A/M/E 111 {IU/mL} Abnormal 0-100 [facility] Work Phone: Comment on above: Is Patient Fasting? [facility] (refer to report for specific site)refer to report for address and phone number Liver ProfileOrdered By: Liat tem Gm on 03-21-2018 Albumin mass conc 3.8 g/dL Normal 3.2-5.0 Compreh [facility] Work Phone: Comment on above: [facility] [address] [place], [place], [phone] ALP enzyme act/vol 69 U/L Normal 45-117 [facility] Work Phone: Comment on above: [facility] [address] [place], [place], [phone] ALT enzyme act/vol 34 U/L Normal 16-61 [facility] Work Phone: Comment on above: [facility] [address] [place], [place], [phone] AST enzyme act/vol 23 U/L Normal 15-37 [facility] Work Phone: Comment on above: [facility] [address] [place], [place], [address] Bilirubin mass conc 0.30 mg/dL Normal 0.20-1.00 [facility] Work Phone: Comment on above: [facility] [address] [place], [place], [phone] Bilirubin.direct mass conc 0.12 mg/dL Normal 0.00-0.30 [facility] Work Phone: Comment on above: [facility] [address] [place], [place], [phone] Globulin mass conc (S) 3.6 g/dL Normal 2.2-4.2 [facility] Work Phone: Comment on above: [facility] [address] [place], [place], [address] Hepatic function 2000 panel - Serum or Plasma 7.4 g/dL Normal 6.4-8.2 Comprehe nsive [facility] Work Phone: Comment on above: [facility] [address] [place], [place], [phone] Hepatic function 2000 panel - Serum or Plasma 69 U/L Normal 45-117 Comprehe nsive [facility] Work Phone: Comment on above: [facility] [address] [place], [address] Protein mass conc 7.4 g/dL Normal 6.4-8.2 Compreh ensive [facility] Work Phone: Comment on above: [facility] [address] [place], [address] Miscellaneous Lab ProcedureO rdered By: Washerette Machine Operator on 03-21-2018 [facility] LAB TEST Normal Comprehensi ve Internal Medicine Work Phone: Comment on above: TEST RESULT LIMITSBu llous Pemphigoid 180 and 230 Bullous Pemphigoid 180 IgG Abs 1.4 U/ml Reference Range: Negative: < 9 U/ml Positive: >= 9 U/ml Bullous Pemphigoid 230 IgG Abs 7.5 U/ml Reference Range: Negative: < 9 U/ml Positive: >= 9 U/mlMost patients with pemphigoid have antibodies to BP180 [id number]. Antibody titer correlates with disease activity inmany patients. Patients with severe disease can usually beexpected to have high titers of antibodies to BP 180 or BP230. Titers are expected to decrease with clinicalimprovement.However, not all BP patients have anti-BP180/230 antibody intheir serum. Co-relations with indirect and directimmunofluorescence results and clinical presentation areimportant for initial diagnosis.*This test has been developed and performance parametershave been validated by [employer] This test hasnot been approved by the U.S. Food and Drug Administration(FDA); however, US FDA approval is not required for clinicaluse. It is not intended that clinical diagnosis and patientmanagement decisions be made using these results alone.This test has been validated using serum samples. Themanufacturer has not determined the efficacy of this testwhen performed on CSF, plasma, joint or pleural fluidspecimens. The performance characteristics of this test weredetermined by [employer] TESTING PERFORMED AT [facility]. ORIGINAL REPORT ON FILE IN LAB CONTAINS ADDITIONAL TEST SITE INFORMATION. Test(s) Ordered: [facility] SER [facility] [address] [place], [address] Miscellaneous Lab Procedure 2Ordered By: Washerette Machine Operator on 03-21-2018 [facility] LAB TEST 2 Normal Comprehen [facility] Internal Medicine Work Phone: Comment on above: TEST RESULT LIMITSTh yroid Panel With TSHTSH 1.830 uIU/mL 0.450 - 4.500Thyroxine (T4) 7.1 ug/dL 4.5 - 12.0T3 Uptake 22 Low % 24 - 39Free Thyroxine Index 1.6 1.2 - 4.9 TESTING PERFORMED AT [facility]. ORIGINAL REPORT ON FILE IN LAB CONTAINS ADDITIONAL TEST SITE INFORMATION. List Test(s) Ordered by Physician: [id number] TSH PANEL SER [facility] [address] [place], [address] Protein Electro.Ur-RandomOrd ered By: Washerette Machine Operator on 03-21-2018 Protein Electro.Ur-Random 4.5 mg/dL Normal [facility] Work Phone: Comment on above: Is Patient Fasting? [facility] (refer to report for specific site)refer to report for address and phone number Protein Electro.Ur-Random 41.9 % Normal [facility] Work Phone: Comment on above: Is Patient Fasting? [facility] (refer to report for specific site)refer to report for address and phone number Protein Electro.Ur-Random 3.5 % Normal [facility] Work Phone: Comment on above: Is Patient Fasting? [facility] (refer to report for specific site)refer to report for address and phone number Protein Electro.Ur-Random 8.0 % Normal [facility] Work Phone: Comment on above: Is Patient Fasting? [facility] (refer to report for specific site)refer to report for address and phone number Protein Electro.Ur-Random 20.1 % Normal [facility] Work Phone: Comment on above: Is Patient Fasting? [facility] (refer to report for specific site)refer to report for address and phone number Protein Electro.Ur-Random 26.5 % Normal [facility] Work Phone: Comment on above: Is Patient Fasting? [facility] (refer to report for specific site)refer to report for address and phone number Protein Electroph, SOrdered By: Washerette Machine Operator on 03-21-2018 Protein Electroph, S 1.0 g/dL Normal 0.4-1.8 [facility] Work Phone: Comment on above: [facility] (refer to re port for specific site)refer to report for address and phone number Protein Electroph, S Normal [facility] Work Phone: Comment on above: Not Observed [facility] (refer to re port for specific site)refer to report for address and phone number Is Patient Fasting? [facility] (refer to report for specific site)refer to report for address and phone number Protein Electroph, S 2.8 g/dL Normal 2.2-3.9 [facility] Work Phone: Comment on above: [facility] (refer to re port for specific site)refer to report for address and phone number Protein Electroph, S 1.5 1 Normal 0.7-1.7 [facility] Work Phone: Comment on above: [facility] (refer to re port for specific site)refer to report for address and phone number Protein Electroph, S Comment Normal [facility] Work Phone: Comment on above: Protein electrophore sis scan will follow via computer,mail, or lawn mower operator delivery. [facility] (refer to re port for specific site)refer to report for address and phone number The SPE pattern appe ars essentially unremarkable. Evidenceof monoclonal protein is not apparent.Performed at: [facility] Lab[address] [id number] Director: Long Weiner PhD, Phone: [phone] No monoclonality det ected. Is Patient Fasting? [facility] (refer to report for specific site)refer to report for address and phone number Protein Electroph, S 6.9 g/dL Normal 6.0-8.5 [facility] Work Phone: Comment on above: [facility] (refer to re port for specific site)refer to report for address and phone number Protein Electroph, S 4.1 g/dL Normal 2.9-4.4 [facility] Work Phone: Comment on above: [facility] (refer to re port for specific site)refer to report for address and phone number Protein Electroph, S 0.2 g/dL Normal 0.0-0.4 Comp rehensive [facility] Work Phone: Comment on above: [facility] (refer to re port for specific site)refer to report for address and phone number Protein Electroph, S 0.7 g/dL Normal 0.4-1.0 Comp rehensive [facility] Work Phone: Comment on above: [facility] (refer to re port for specific site)refer to report for address and phone number Protein Electroph, S 0.9 g/dL Normal 0.7-1.3 Comp rehensive [facility] Work Phone: Comment on above: [facility] (refer to re port for specific site)refer to report for address and phone number T4 Free DirectOrdered By: stem Gm on 03-21-2018 T4 free mass conc 1.08 ng/dL Normal 0.76-1.46 Compreh ensive [facility] Work Phone: Comment on above: [facility] [address] [place], [address] CBC W/Diff, AutomatedOrdered By: Washerette Machine Operator on 03-18-2018 Absolute Neut 4.8 {X10_3/uL} Normal 2.0-7.7 Compreh ensive [facility] Work Phone: Comment on above: [facility] [address] [place], [place], [phone] Basophils/100 WBC (Bld) 0.3 % Normal 0-1 [facility] Work Phone: Comment on above: [facility] [address] [place], [address] Eosinophils/100 WBC (Bld) 7.5 % Abnormal 0-5 [facility] Work Phone: Comment on above: [facility] [address] [place], [address] Erythrocyte distribution width Ratio (RBC) 15.0 % Abnormal 11.6-14.6 [facility] Work Phone: Comment on above: [facility] [address] [place], [address] Hematocrit Volume Fraction (Bld) 42.6 % Normal 40-54 [facility] Work Phone: Comment on above: [facility] [address] [place], [address] Hemoglobin mass conc (Bld) 13.6 g/dL Normal 13.0-16.5 [facility] Work Phone: Comment on above: [facility] [address] [place], [address] IM GRAN % 0.300 % Normal 0.0-0.9 [facility] Work Phone: Comment on above: IG% - Immature Granu locytes (promyelocytes, myelocytes andmetamyelocytes) > 1% indicates that a LEFT SHIFT is Present. [facility] [address] [place], [address] Lymphocytes #/vol (Bld) 1.70 {X10_3/ul} Normal 0.83-4. 51 [facility] Work Phone: Comment on above: [facility] [address] [place], [address] Lymphocytes/100 WBC (Bld) 21.6 % Normal 19-41 [facility] Work Phone: Comment on above: [facility] [address] [place], [address] MCH Entitic mass (RBC) 29.2 pg Normal 27.0-32.0 [facility] Work Phone: Comment on above: [facility] [address] [place], [address] MCHC mass conc (RBC) 31.9 {g/gl} Abnormal 32-36 Com prehensive Internal Medicine Work Phone: Comment on above: [facility] [address] [place], [address] MCV Entitic volume (RBC) 91.6 fL Normal 80-94 [facility] Medicine Work Phone: Comment on above: [facility] [address] [place], [address] Monocytes/100 WBC (Bld) 9.2 % Normal 0-10 C omprehensive Internal Medicine Work Phone: Comment on above: [facility] [address] [place], [address] Neutrophils/100 WBC (Bld) 61.1 % Normal 47-70 [facility] Work Phone: Comment on above: [facility] [address] [place], [address] Platelet mean volume Entitic volume (Bld) 9.8 fL Normal 6.2-12.0 Comprehensi ve Internal Medicine Work Phone: Comment on above: [facility] [address] [place], [address] Platelets #/vol (Bld) 247 10*3/uL Normal 150-450 [facility] Work Phone: Comment on above: [facility] [address] [place], [address] RBC #/vol (Bld) 4.65 {M/mm3} Normal 4.6-6.2 Compreh ensive Internal Medicine Work Phone: Comment on above: [facility] [address] [place], [address] RDW SD 49.3 fL Abnormal 35.1-43.9 [facility] Work Phone: Comment on above: [facility] [address] [place], [place], [phone] WBC #/vol (Bld) 7.9 10*3/uL Normal 4.4-11.0 Comprehe nsive Internal Medicine Work Phone: Comment on above: [facility] [address] [place], [place], [phone] PSA,Total - Annual ScreenOrd ered By: Washerette Machine Operator on 03-18-2018 Prostate specific Ag mass conc 0.62 ng/mL Normal 0.00-4.00 [facility] Work Phone: Comment on above: This test was perfor med using the TPSA assay method for [employer] chemistry system. Values obtained with differentassay methods cannot be used interchangably.When changing PSA assays in the course of monitoring apatient, additional sequential testing should be carriedout to confirm baseline values. [facility] [address] [place], [place], [phone] CBC W/Diff, AutomatedOrdered By: Washerette Machine Operator on 03-08-2018 Absolute Neut 2.9 {X10_3/uL} Normal 2.0-7.7 Compreh ensive Internal Medicine Work Phone: Comment on above: [facility] [address] [place], [place], [phone] Basophils/100 WBC (Bld) 0.6 % Normal 0-1 C omprehensive Internal Medicine Work Phone: Comment on above: [facility] [address] [place], [address] Eosinophils/100 WBC (Bld) 9.4 % Abnormal 0-5 [facility] Work Phone: Comment on above: [facility] [address] [place], [address] Erythrocyte distribution width Ratio (RBC) 15.3 % Abnormal 11.6-14.6 [facility] Work Phone: Comment on above: [facility] [address] [place], [address] Hematocrit Volume Fraction (Bld) 41.7 % Normal 40-54 [facility] Work Phone: Comment on above: [facility] [address] [place], [place], [phone] Hemoglobin mass conc (Bld) 13.2 g/dL Normal 13.0-16.5 [facility] Work Phone: Comment on above: [facility] [address] [place], [place], [phone] IM GRAN % 0.200 % Normal 0.0-0.9 [facility] Work Phone: Comment on above: IG% - Immature Granu locytes (promyelocytes, myelocytes andmetamyelocytes) > 1% indicates that a LEFT SHIFT is Present. [facility] [address] [place], [place], [phone] Lymphocytes #/vol (Bld) 1.37 {X10_3/ul} Normal 0.83-4. 51 [facility] Work Phone: Comment on above: [facility] [address] [place], [address] Lymphocytes/100 WBC (Bld) 25.2 % Normal 19-41 [facility] Work Phone: Comment on above: [facility] [address] [place], [address] MCH Entitic mass (RBC) 29.4 pg Normal 27.0-32.0 [facility] Work Phone: Comment on above: [facility] [address] [place], [address] MCHC mass conc (RBC) 31.7 {g/gl} Abnormal 32-36 [facility] prehensive Internal Medicine Work Phone: Comment on above: [facility] [address] [place], [place], [phone] MCV Entitic volume (RBC) 92.9 fL Normal 80-94 [facility] Work Phone: Comment on above: [facility] [address] [place], [address] Monocytes/100 WBC (Bld) 10.9 % Abnormal 0-10 [facility] Work Phone: Comment on above: [facility] [address] [place], [address] Neutrophils/100 WBC (Bld) 53.7 % Normal 47-70 [facility] Work Phone: Comment on above: [facility] [address] [place], [place], [phone] Platelet mean volume Entitic volume (Bld) 10.2 fL Normal 6.2-12.0 Comprehensi Internal Medicine Work Phone: Comment on above: [facility] [address] [place], [address] Platelets #/vol (Bld) 215 10*3/uL Normal 150-450 [facility] Internal Medicine Work Phone: Comment on above: [facility] [address] [place], [address] RBC #/vol (Bld) 4.49 {M/mm3} Abnormal 4.6-6.2 Compreh [facility] Internal [facility] Work Phone: Comment on above: [facility] [address] [place], [address] RDW SD 50.8 fL Abnormal 35.1-43.9 [facility] Work Phone: Comment on above: [facility] [address] [place], [address] WBC #/vol (Bld) 5.4 10*3/uL Normal 4.4-11.0 [facility]he [facility] Internal Medicine Work Phone: Comment on above: [facility] [address] [place], [address] CBC W/Diff, Automated 13.2 g/dL Normal 13.0-16.5 [facility] prehensive Internal Medicine Work Phone: Comment on above: [facility] [address] [place], [address] CBC W/Diff, Automated 50.8 fL Abnormal 35.1-43.9 [facility] Work Phone: Comment on above: [facility] [address] [place], [place], [phone] CBC W/Diff, Automated 31.7 {g/gl} Abnormal 32-36 [facility] Internal Medicine Work Phone: Comment on above: [facility] [address] [place], [address] CBC W/Diff, Automated 29.4 pg Normal 27.0-32.0 [facility] Work Phone: Comment on above: [facility] [address] [place], [address] CBC W/Diff, Automated 5.4 K/mm3 Normal 4.4-11.0 [facility] Work Phone: Comment on above: [facility] [address] [place], [address] CBC W/Diff, Automated 2.9 {X10_3/uL} Normal 2.0-7.7 [facility] Internal Medicine Work Phone: Comment on above: [facility] [address] [place], [address] CBC W/Diff, Automated 10.2 fL Normal 6.2-12.0 Com prehensive Internal Medicine Work Phone: Comment on above: [facility] [address] [place], [place], [phone] CBC W/Diff, Automated 41.7 % Normal 40-54 Com prehensive Internal Medicine Work Phone: Comment on above: [facility] [address] [place], [place], [phone] CBC W/Diff, Automated 0.200 % Normal 0.0-0.9 [facility] prehensive Internal Medicine Work Phone: Comment on above: IG% - Immature Granu locytes (promyelocytes, myelocytes andmetamyelocytes) > 1% indicates that a LEFT SHIFT is Present. [facility] [address] [place], [place], [phone] CBC W/Diff, Automated 0.6 % Normal 0-1 [facility] prehensive Internal Medicine Work Phone: Comment on above: [facility] [address] [place], [place], [phone] CBC W/Diff, Automated 4.49 {M/mm3} Abnormal 4.6-6.2 [facility] Work Phone: Comment on above: [facility] [address] [place], [place], [phone] CBC W/Diff, Automated 9.4 % Abnormal 0-5 Com prehensive Internal Medicine Work Phone: Comment on above: [facility] [address] [place], [address] CBC W/Diff, Automated 10.9 % Abnormal 0-10 [facility] prehensive Internal Medicine Work Phone: Comment on above: [facility] [address] [place], [place], [phone] CBC W/Diff, Automated 25.2 % Normal 19-41 [facility] prehensive Internal Medicine Work Phone: Comment on above: [facility] [address] [place], [place], [address] CBC W/Diff, Automated 53.7 % Normal 47-70 [facility] prehensive Internal Medicine Work Phone: Comment on above: [facility] spital [address] [place], [place], [address] CBC W/Diff, Automated 1.37 {X10_3/ul} Normal 0.83-4.51 [facility] Work Phone: Comment on above: [facility] [address] [place], [place], [address] CBC W/Diff, Automated 215 K/mm3 Normal 150-450 [facility] prehensive Internal Medicine Work Phone: Comment on above: [facility] [address] [place], [place], [address] CBC W/Diff, Automated 92.9 fL Normal 80-94 [facility] prehensive Internal Medicine Work Phone: Comment on above: [facility] [address] [place], [place], [address] CBC W/Diff, Automated 15.3 % Abnormal 11.6-14.6 [facility] prehensive Internal Medicine Work Phone: Comment on above: [facility] [address] [place], [place], [phone] Comprehensive Metabolic Prof ilOrdered By: Washerette Machine Operator on 03-08-2018 Comprehensive metabolic 2000 panel 31 U/L Normal 16-61 [facility] Work Phone: Comment on above: [facility] [address] [place], [place], [phone] Comprehensive metabolic 2000 panel 8.6 mg/dL Normal 8.5-10.1 [facility] Work Phone: Comment on above: [facility] [address] [place], [address] Comprehensive metabolic 2000 panel 99 mL/min Normal [facility] Internal Medicine Work Phone: Comment on above: Non- GFR Calc [facility] [address] [place], [place], [phone] Comprehensive metabolic 2000 panel 1.1 {RATIO} Normal 0.9-2.4 [facility] Work Phone: Comment on above: [facility] [address] [place], [place], [address] Comprehensive metabolic 2000 panel 0.84 mg/dL Normal 0.70-1.30 [facility] Work Phone: Comment on above: The validity of the calculated GFR AND GFRAA in patients over70 years has not been determined. Clinical correlation isessential. [facility] [address] [place], [place], [phone] Comprehensive metabolic 2000 panel 120 mL/min Normal [facility] Medicine Work Phone: Comment on above: GFR Calc [facility] [address] [place], [place], [phone] Comprehensive metabolic 2000 panel 18 U/L Normal 15-37 [facility] Work Phone: Comment on above: [facility] [address] [place], [place], [address] Comprehensive metabolic 2000 panel 29.0 mmol/L Normal 21.0-32.0 [facility] Work Phone: Comment on above: [facility] [address] [place], [place], [address] Comprehensive metabolic 2000 panel 106 mmol/L Normal 98-107 [facility] Work Phone: Comment on above: [facility] [address] [place], [place], [address] Comprehensive metabolic 2000 panel 4.2 mmol/L Normal 3.5-5.1 [facility] Work Phone: Comment on above: [facility] spital [address] [place], [address] Comprehensive metabolic 2000 panel 0.50 mg/dL Normal 0.20-1.00 [facility] Work Phone: Comment on above: [facility] spital [address] [place], [address] Comprehensive metabolic 2000 panel 142 mmol/L Normal 136-145 [facility] Medicine Work Phone: Comment on above: [facility] spital [address] [place], [address] Comprehensive metabolic 2000 panel 15.4 {RATIO} Normal 10-20 [facility] Work Phone: Comment on above: [facility] spital [address] [place], [address] Comprehensive metabolic 2000 panel 6.8 g/dL Normal 6.4-8.2 [facility] Work Phone: Comment on above: [facility] spital [address] [place], [address] Comprehensive metabolic 2000 panel 3.6 g/dL Normal 3.2-5.0 [facility] Work Phone: Comment on above: [facility] spital [address] [place], [address] Comprehensive metabolic 2000 panel 61 U/L Normal 45-117 [facility] Work Phone: Comment on above: [facility] spital [address] [place], [address] Comprehensive metabolic 2000 panel 3.2 g/dL Normal 2.2-4.2 [facility] Work Phone: Comment on above: [facility] spital [address] [place], [address] Comprehensive metabolic 2000 panel 91 mg/dL Normal 74-106 [facility] Work Phone: Comment on above: Please note revised GLUCOSE reference range [id number]/02/2018. [facility] [address] [place], [place], [address] Comprehensive metabolic 2000 panel 7 1 Normal 5-15 [facility] Work Phone: Comment on above: [facility] [address] [place], [place], [address] Comprehensive metabolic 2000 panel 13 mg/dL Normal 7-18 [facility] Work Phone: Comment on above: [facility] [address] [place], [place], [phone] Hemoglobin I9lSyzjheb By: Blas nesbit Gm on 03-08-2018 Hemoglobin A1c/Hemoglobin.total mass fraction (Bld) 6.2 % Normal 4.2-6.3 Comprehensiv e Internal Medicine Work Phone: Comment on above: [facility] [address] [place], [place], [phone] MicroalbOrdered By: Remberto garibay on 03-08-2018 Microalb Test not performed Normal Compre hensive Internal Medicine Work Phone: Comment on above: [facility] [address] [place], [place], [address] Microalb < 5.0 Normal [facility] Work Phone: Comment on above: [facility] [address] [place], [place], [phone] Microalb 99.90 mg/dL Normal [facility] Work Phone: Comment on above: [facility] [address] [place], [place], [address] NMR LipoprofileOrdered By: Mamie ystem Gm on 03-08-2018 NMR Lipoprofile 1191 nmol/L Abnormal Comprehe nsive Internal Medicine Work Phone: Comment on above: Low < 1000 Moderate 1000 - 1299 Borderline-High 1300 - 1599 High 1600 - 2000 Very High > 2000 [facility] (refer to re port for specific site)refer to report for address and phone number NMR Lipoprofile 166 mg/dL Normal 100-199 [facility] Internal Medicine Work Phone: Comment on above: [facility] (refer to re port for specific site)refer to report for address and phone number NMR Lipoprofile . Normal [facility] Internal Medicine Work Phone: Comment on above: [facility] (refer to re port for specific site)refer to report for address and phone number NMR Lipoprofile 35.5 umol/L Normal [facility] Internal Medicine Work Phone: Comment on above: [facility] (refer to re port for specific site)refer to report for address and phone number NMR Lipoprofile 266 nmol/L Normal [facility] Internal Medicine Work Phone: Comment on above: [facility] (refer to re port for specific site)refer to report for address and phone number NMR Lipoprofile 29 1 Normal [facility] Internal Medicine Work Phone: Comment on above: INSULIN RESISTANCE Dinesh ODONNELL <--Insulin Sensitive Insulin Resistant--> Percentile in Reference [...] the [place] Food and Drug Administration.Performed at: - [facility] [id number] Director: Marleny Chapman MD, Phone: [phone] [facility] (refer to re port for specific site)refer to report for address and phone number NMR Lipoprofile 21.4 nm Normal [facility] Internal Medicine Work Phone: Comment on above: INTERPRETATIVE INFORMATION PARTICLE CONCENTRATION AND SIZE <--Lower CVD Risk Higher CVD Risk--> LDL AND HDL PARTICLES Percentile in Reference Population HDL-P (total) High 75th 50th 25th Low >34.9 34.9 30.5 26.7 <26.7 Small LDL-P Low 25th 50th 75th High <117 [phone] >839 LDL Size <-Large (Pattern A)-> <-Small (Pattern B)-> 23.0 20.6 20.5 19.0 Smal l LDL-P and LDL Size are associated with CVD risk, butnot after LDL-P is taken into account.These assays were developed and their performancecharacteristics determined by [employer]. These assayshave not been cleared by the [place] Food and DrugAdministration. The clinical utility of these laboratoryvalues have not been fully established. [facility] (refer to re port for specific site)refer to report for address and phone number NMR Lipoprofile 71 mg/dL Normal 0-149 [facility] Internal Medicine Work Phone: Comment on above: [facility] (refer to re port for specific site)refer to report for address and phone number NMR Lipoprofile 52 mg/dL Normal [facility] Internal Medicine Work Phone: Comment on above: [facility] (refer to re port for specific site)refer to report for address and phone number NMR Lipoprofile 100 mg/dL Abnormal 0-99 [facility] Internal Medicine Work Phone: Comment on above: Optimal < 100 Above optimal 100 - 129 Borderline 130 - 159 High 160 - 189 Very high > 189LDL-C is inaccurate if patient is non-fasting. [facility] (refer to re port for specific site)refer to report for address and phone number Thyroid Stim Hormone (TSH)Or dered By: Washerette Machine Operator on 03-08-2018 Thyrotropin Qn 1.19 {uIU/mL} Normal 0.358-3.74 Compreh ensive Internal Medicine Work Phone: Comment on above: [facility] [address] [place], [phone] Urinalysis, CompleteOrdered By: Washerette Machine Operator on 03-08-2018 Protein mass conc (U) Negative Normal Com prehensive Internal Medicine Work Phone: Comment on above: How was Urine Obtain ed? [facility] [address] [place], [place], [phone] RBC #/vol (U) 0 SEEN Normal 0-5 Comprehensi ve Internal Medicine Work Phone: Comment on above: How was Urine Obtain ed? [facility] [address] [place], [place], [phone] Urinalysis complete panel - Urine 7.0 1 Normal 5.0 - 8.0 [facility] Work Phone: Comment on above: How was Urine Obtain ed? [facility] [address] [place], [place], [address] Urinalysis complete panel - Urine 0 SEEN Normal [facility] Work Phone: Comment on above: How was Urine Obtain ed? [facility] [address] [place], [place], [address] Urinalysis complete panel - Urine Normal Normal [facility] Medicine Work Phone: Comment on above: How was Urine Obtain ed? [facility] [address] [place], [place], [phone] Urinalysis complete panel - Urine 1.010 1 Normal 1.002-1.03 0 [facility] Work Phone: Comment on above: How was Urine Obtain ed? [facility] [address] [place], [place], [phone] Urinalysis complete panel - Urine Negative Normal [facility] Medicine Work Phone: Comment on above: How was Urine Obtain ed? [facility] [address] [place], [phone] Urinalysis complete panel - Urine Yellow Normal [facility] Work Phone: Comment on above: How was Urine Obtain ed? [facility] [address] [place], [phone] Urinalysis complete panel - Urine Clear Normal [facility] Medicine Work Phone: Comment on above: How was Urine Obtain ed? [facility] [address] [place], [phone] Vitamin D,25 HydroxyOrdered By: Washerette Machine Operator on 03-08-2018 Vitamin D,25 Hydroxy 47.8 ng/mL Normal 29.95-1 00. 01 [facility] Work Phone: Comment on above: Vitamin D 25(OH) Sta tus Range Deficiency <20 ng/mL (50nmol/L) Insuffciency 20 - 30 ng/mL (50 - 75 nmol/L) Sufficiency 30 - 100 ng/mL (75 - 250 nmol/L) Toxicity >100 ng/mL (>250 nmol/L) [facility] [address] [place], [phone] Hemoglobin X3gTlkvkkd By: Sy stem Gm on 10-23-2017 Hemoglobin A1c/Hemoglobin.total mass fraction (Bld) 5.7 % Normal 4.2-6.3 Comprehensiv e Internal Medicine Work Phone: Comment on above: [facility] [address] [place], [place], [phone] CBC W/Diff, AutomatedOrdered By: Washerette Machine Operator on 10-11-2017 Absolute Neut 5.4 {X10_3/uL} Normal 2.0-7.7 Compreh ensive Internal Medicine Work Phone: Comment on above: [facility] [address] [place], [address] Basophils/100 WBC (Bld) 0.3 % Normal 0-1 C omprehensive Internal Medicine Work Phone: Comment on above: [facility] [address] [place], [address] Eosinophils/100 WBC (Bld) 1.4 % Normal 0-5 [facility] Work Phone: Comment on above: [facility] [address] [place], [address] Erythrocyte distribution width Ratio (RBC) 15.5 % Abnormal 11.6-14.6 [facility] Work Phone: Comment on above: [facility] [address] [place], [place], [phone] Hematocrit Volume Fraction (Bld) 40.2 % Normal 40-54 [facility] Work Phone: Comment on above: [facility] [address] [place], [address] Hemoglobin mass conc (Bld) 13.0 g/dL Normal 13.0-16.5 [facility] Work Phone: Comment on above: [facility] [address] [place], [address] IM GRAN % 0.100 % Normal 0.0-0.9 [facility] Work Phone: Comment on above: IG% - Immature Granu locytes (promyelocytes, myelocytes andmetamyelocytes) > 1% indicates that a LEFT SHIFT is Present. [facility] [address] [place], [address] Lymphocytes #/vol (Bld) 1.45 {X10_3/ul} Normal 0.83-4. 51 [facility] Work Phone: Comment on above: [facility] [address] [place], [address] Lymphocytes/100 WBC (Bld) 19.0 % Normal 19-41 [facility] Work Phone: Comment on above: [facility] [address] [place], [address] MCH Entitic mass (RBC) 29.6 pg Normal 27.0-32.0 [facility] Work Phone: Comment on above: [facility] [address] [place], [address] MCHC mass conc (RBC) 32.3 {g/gl} Normal 32-36 Com prehensive Internal Medicine Work Phone: Comment on above: [facility] [address] [place], [address] MCV Entitic volume (RBC) 91.6 fL Normal 80-94 [facility] Work Phone: Comment on above: [facility] [address] [place], [address] Monocytes/100 WBC (Bld) 8.8 % Normal 0-10 [facility] Work Phone: Comment on above: [facility] [address] [place], [address] Neutrophils/100 WBC (Bld) 70.4 % Abnormal 47-70 [facility] Work Phone: Comment on above: [facility] [address] [place], [address] Platelet mean volume Entitic volume (Bld) 9.3 fL Normal 6.2-12.0 Comprehensi Internal Medicine Work Phone: Comment on above: [facility] [address] [place], [address] Platelets #/vol (Bld) 218 10*3/uL Normal 150-450 [facility] Work Phone: Comment on above: [facility] [address] [place], [place], [phone] RBC #/vol (Bld) 4.39 {M/mm3} Abnormal 4.6-6.2 Compreh ensive Internal Medicine Work Phone: Comment on above: [facility] [address] [place], [address] RDW SD 50.1 fL Abnormal 35.1-43.9 [facility] Work Phone: Comment on above: [facility] [address] [place], [place], [phone] WBC #/vol (Bld) 7.7 10*3/uL Normal 4.4-11.0 Comprehe nsive Internal Medicine Work Phone: Comment on above: [facility] [address] [place], [place], [phone] CBC W/Diff, Automated 32.3 {g/gl} Normal 32-36 [facility] Work Phone: Comment on above: [facility] [address] [place], [place], [phone] CBC W/Diff, Automated 7.7 K/mm3 Normal 4.4-11.0 Com prehensive Internal Medicine Work Phone: Comment on above: [facility] [address] [place], [place], [phone] CBC W/Diff, Automated 15.5 % Abnormal 11.6-14.6 Com prehensive Internal Medicine Work Phone: Comment on above: [facility] [address] [place], [place], [phone] CBC W/Diff, Automated 1.4 % Normal 0-5 Com prehensive Internal Medicine Work Phone: Comment on above: [facility] [address] [place], [place], [phone] CBC W/Diff, Automated 70.4 % Abnormal 47-70 [facility] prehensive Internal Medicine Work Phone: Comment on above: [facility] [address] [place], [address] CBC W/Diff, Automated 1.45 {X10_3/ul} Normal 0.83-4.51 [facility] Internal Medicine Work Phone: Comment on above: [facility] [address] [place], [address] CBC W/Diff, Automated 9.3 fL Normal 6.2-12.0 [facility] prehensive Internal Medicine Work Phone: Comment on above: [facility] [address] [place], [address] CBC W/Diff, Automated 91.6 fL Normal 80-94 [facility] prehensive Internal Medicine Work Phone: Comment on above: [facility] [address] [place], [address] CBC W/Diff, Automated 0.3 % Normal 0-1 [facility] prehensive Internal Medicine Work Phone: Comment on above: [facility] [address] [place], [address] CBC W/Diff, Automated 218 K/mm3 Normal 150-450 [facility] prehensive Internal Medicine Work Phone: Comment on above: [facility] [address] [place], [address] CBC W/Diff, Automated 29.6 pg Normal 27.0-32.0 [facility] prehensive Internal Medicine Work Phone: Comment on above: [facility] [address] [place], [address] CBC W/Diff, Automated 5.4 {X10_3/uL} Normal 2.0-7.7 [facility] Internal Medicine Work Phone: Comment on above: [facility] [address] [place], [address] CBC W/Diff, Automated 4.39 {M/mm3} Abnormal 4.6-6.2 [facility] Work Phone: Comment on above: [facility] [address] [place], [address] CBC W/Diff, Automated 50.1 fL Abnormal 35.1-43.9 Com prehensive Internal Medicine Work Phone: Comment on above: [facility] [address] [place], [place], [phone] CBC W/Diff, Automated 0.100 % Normal 0.0-0.9 [facility] prehensive Internal Medicine Work Phone: Comment on above: IG% - Immature Granu locytes (promyelocytes, myelocytes andmetamyelocytes) > 1% indicates that a LEFT SHIFT is Present. [facility] [address] [place], [place], [phone] CBC W/Diff, Automated 19.0 % Normal 19-41 [facility] prehensive Internal Medicine Work Phone: Comment on above: [facility] [address] [place], [place], [address] CBC W/Diff, Automated 13.0 g/dL Normal 13.0-16.5 [facility] prehensive Internal Medicine Work Phone: Comment on above: [facility] [address] [place], [place], [address] CBC W/Diff, Automated 8.8 % Normal 0-10 [facility] prehensive Internal Medicine Work Phone: Comment on above: [facility] [address] [place], [place], [phone] CBC W/Diff, Automated 40.2 % Normal 40-54 Com prehensive Internal Medicine Work Phone: Comment on above: [facility] [address] [place], [place], [phone] Comprehensive Metabolic Prof ilOrdered By: Washerette Machine Operator on 10-11-2017 Comprehensive metabolic 2000 panel 6 1 Normal 5-15 [facility] Work Phone: Comment on above: [facility] [address] [place], [place], [phone] Comprehensive metabolic 2000 panel 94 mL/min Normal [facility] Internal Medicine Work Phone: Comment on above: GFR Calc [facility] [address] [place], [place], [phone] Comprehensive metabolic 2000 panel 104 mmol/L Normal 98-107 [facility] Medicine Work Phone: Comment on above: [facility] [address] [place], [place], [phone] Comprehensive metabolic 2000 panel 1.04 mg/dL Normal 0.70-1.30 [facility] Work Phone: Comment on above: The validity of the calculated GFR AND GFRAA in patients over70 years has not been determined. Clinical correlation isessential. [facility] [address] [place], [place], [phone] Comprehensive metabolic 2000 panel 78 mL/min Normal [facility] Internal Medicine Work Phone: Comment on above: Non- GFR Calc [facility] [address] [place], [place], [phone] Comprehensive metabolic 2000 panel 18.3 {RATIO} Normal 10-20 [facility] Work Phone: Comment on above: [facility] [address] [place], [place], [phone] Comprehensive metabolic 2000 panel 19 mg/dL Abnormal 7-18 [facility] Work Phone: Comment on above: [facility] [address] [place], [place], [phone] Comprehensive metabolic 2000 panel 110 mg/dL Abnormal 74-106 [facility] Work Phone: Comment on above: Fasting Glucose resu lt from 100 to 125 mg/dLsuggests IMPAIRED HOMEOSTASIS per A.D.A. criteria.Please note revised GLUCOSE reference range /02/2018. [facility] spital [address] [place], [place], [phone] Comprehensive metabolic 2000 panel 62 U/L Normal 45-117 [facility] Work Phone: Comment on above: [facility] spital [address] [place], [place], [phone] Comprehensive metabolic 2000 panel 138 mmol/L Normal 136-145 [facility] Work Phone: Comment on above: [facility] [address] [place], [place], [phone] Comprehensive metabolic 2000 panel 4.2 mmol/L Normal 3.5-5.1 [facility] Work Phone: Comment on above: [facility] [address] [place], [place], [phone] Comprehensive metabolic 2000 panel 27 U/L Normal 15-37 [facility] Work Phone: Comment on above: [facility] [address] [place], [place], [address] Comprehensive metabolic 2000 panel 8.7 mg/dL Normal 8.5-10.1 [facility] Work Phone: Comment on above: [facility] [address] [place], [place], [phone] Comprehensive metabolic 2000 panel 1.2 {RATIO} Normal 0.9-2.4 [facility] Work Phone: Comment on above: [facility] spital [address] [place], [place], [phone] Comprehensive metabolic 2000 panel 3.3 g/dL Normal 2.2-4.2 [facility] Work Phone: Comment on above: [facility] [address] [place], [place], [address] Comprehensive metabolic 2000 panel 28.0 mmol/L Normal 21.0-32.0 [facility] Work Phone: Comment on above: [facility] [address] [place], [place], [phone] Comprehensive metabolic 2000 panel 0.50 mg/dL Normal 0.20-1.00 [facility] Work Phone: Comment on above: [facility] [address] [place], [place], [phone] Comprehensive metabolic 2000 panel 3.9 g/dL Normal 3.2-5.0 [facility] Work Phone: Comment on above: [facility] [address] [place], [place], [address] Comprehensive metabolic 2000 panel 37 U/L Normal 16-61 [facility] Work Phone: Comment on above: [facility] [address] [place], [place], [phone] Comprehensive metabolic 2000 panel 7.2 g/dL Normal 6.4-8.2 [facility] Work Phone: Comment on above: [facility] [address] [place], [place], [phone] CBC W/Diff, AutomatedOrdered By: Washerette Machine Operator on 06-29-2017 Absolute Neut 2.9 {X10_3/uL} Normal 2.0-7.7 Compreh ensive Internal Medicine Work Phone: Comment on above: [facility] [address] [place], [place], [phone] Basophils/100 WBC (Bld) 0.4 % Normal 0-1 C omprehensive Internal Medicine Work Phone: Comment on above: [facility] [address] [place], [address] Eosinophils/100 WBC (Bld) 3.7 % Normal 0-5 [facility] Work Phone: Comment on above: [facility] [address] [place], [address] Erythrocyte distribution width Ratio (RBC) 16.0 % Abnormal 11.6-14.6 [facility] Work Phone: Comment on above: [facility] [address] [place], [address] Hematocrit Volume Fraction (Bld) 39.2 % Abnormal 40-54 [facility] Work Phone: Comment on above: [facility] [address] [place], [address] Hemoglobin mass conc (Bld) 12.3 g/dL Abnormal 13.0-16.5 [facility] Work Phone: Comment on above: [facility] [address] [place], [address] IM GRAN % 0.200 % Normal 0.0-0.9 [facility] Work Phone: Comment on above: IG% - Immature Granu locytes (promyelocytes, myelocytes andmetamyelocytes) > 1% indicates that a LEFT SHIFT is Present. [facility] [address] [place], [address] Lymphocytes #/vol (Bld) 1.73 {X10_3/ul} Normal 0.83-4. 51 [facility] Work Phone: Comment on above: [facility] [address] [place], [address] Lymphocytes/100 WBC (Bld) 32.4 % Normal 19-41 [facility] Work Phone: Comment on above: [facility] [address] [place], [address] MCH Entitic mass (RBC) 28.9 pg Normal 27.0-32.0 [facility] Work Phone: Comment on above: [facility] [address] [place], [address] MCHC mass conc (RBC) 31.4 {g/gl} Abnormal 32-36 Com prehensive Internal Medicine Work Phone: Comment on above: [facility] [address] [place], [address] MCV Entitic volume (RBC) 92.2 fL Normal 80-94 [facility] Work Phone: Comment on above: [facility] [address] [place], [address] Monocytes/100 WBC (Bld) 9.9 % Normal 0-10 [facility] Work Phone: Comment on above: [facility] [address] [place], [address] Neutrophils/100 WBC (Bld) 53.4 % Normal 47-70 [facility] Work Phone: Comment on above: [facility] [address] [place], [address] Platelet mean volume Entitic volume (Bld) 9.1 fL Normal 6.2-12.0 Comprehensi Internal Medicine Work Phone: Comment on above: [facility] [address] [place], [address] Platelets #/vol (Bld) 226 10*3/uL Normal 150-450 [facility] Work Phone: Comment on above: [facility] [address] [place], [address] RBC #/vol (Bld) 4.25 {M/mm3} Abnormal 4.6-6.2 Compreh ensive Internal Medicine Work Phone: Comment on above: [facility] [address] [place], [address] RDW SD 53.5 fL Abnormal 35.1-43.9 [facility] Work Phone: Comment on above: [facility] [address] [place], [address] WBC #/vol (Bld) 5.3 10*3/uL Normal 4.4-11.0 Comprehe nsive Internal Medicine Work Phone: Comment on above: [facility] [address] [place], [address] CBC W/Diff, Automated 9.1 fL Normal 6.2-12.0 Com prehensive Internal Medicine Work Phone: Comment on above: [facility] [address] [place], [address] CBC W/Diff, Automated 12.3 g/dL Abnormal 13.0-16.5 Com prehensive Internal Medicine Work Phone: Comment on above: [facility] [address] [place], [address] CBC W/Diff, Automated 39.2 % Abnormal 40-54 Com prehensive Internal Medicine Work Phone: Comment on above: [facility] [address] [place], [address] CBC W/Diff, Automated 53.4 % Normal 47-70 Com prehensive Internal Medicine Work Phone: Comment on above: [facility] [address] [place], [address] CBC W/Diff, Automated 32.4 % Normal 19-41 Com prehensive Internal Medicine Work Phone: Comment on above: [facility] [address] [place], [address] CBC W/Diff, Automated 92.2 fL Normal 80-94 [facility] prehensive Internal Medicine Work Phone: Comment on above: [facility] [address] [place], [address] CBC W/Diff, Automated 28.9 pg Normal 27.0-32.0 [facility] prehensive Internal Medicine Work Phone: Comment on above: [facility] [address] [place], [address] CBC W/Diff, Automated 31.4 {g/gl} Abnormal 32-36 [facility] Work Phone: Comment on above: [facility] [address] [place], [address] CBC W/Diff, Automated 16.0 % Abnormal 11.6-14.6 [facility] prehensive Internal Medicine Work Phone: Comment on above: [facility] [address] [place], [address] CBC W/Diff, Automated 53.5 fL Abnormal 35.1-43.9 [facility] prehensive Internal Medicine Work Phone: Comment on above: [facility] [address] [place], [address] CBC W/Diff, Automated 9.9 % Normal 0-10 [facility] prehensive Internal Medicine Work Phone: Comment on above: [facility] [address] [place], [address] CBC W/Diff, Automated 5.3 K/mm3 Normal 4.4-11.0 [facility] prehensive Internal Medicine Work Phone: Comment on above: [facility] [address] [place], [address] CBC W/Diff, Automated 226 K/mm3 Normal 150-450 [facility] prehensive Internal Medicine Work Phone: Comment on above: [facility] [address] [place], [place], [phone] CBC W/Diff, Automated 3.7 % Normal 0-5 [facility] prehensive Internal Medicine Work Phone: Comment on above: [facility] [address] [place], [place], [address] CBC W/Diff, Automated 0.4 % Normal 0-1 Com prehensive Internal Medicine Work Phone: Comment on above: [facility] [address] [place], [place], [phone] CBC W/Diff, Automated 0.200 % Normal 0.0-0.9 [facility] prehensive Internal Medicine Work Phone: Comment on above: IG% - Immature Granu locytes (promyelocytes, myelocytes andmetamyelocytes) > 1% indicates that a LEFT SHIFT is Present. [facility] [address] [place], [place], [phone] CBC W/Diff, Automated 4.25 {M/mm3} Abnormal 4.6-6.2 [facility] Work Phone: Comment on above: [facility] [address] [place], [place], [address] CBC W/Diff, Automated 2.9 {X10_3/uL} Normal 2.0-7.7 [facility] Work Phone: Comment on above: [facility] [address] [place], [place], [phone] CBC W/Diff, Automated 1.73 {X10_3/ul} Normal 0.83-4.51 [facility] Work Phone: Comment on above: [facility] [address] [place], [place], [phone] Comprehensive Metabolic Prof ilOrdered By: Washerette Machine Operator on 06-29-2017 Comprehensive metabolic 2000 panel 1.1 {RATIO} Normal 0.9-2.4 [facility] Internal Medicine Work Phone: Comment on above: TOM ONLY GETS C BCD,[facility] [address] [place], [place], [address] Comprehensive metabolic 2000 panel 3.2 g/dL Normal 2.2-4.2 [facility] Internal Medicine Work Phone: Comment on above: JANELLELANKI ONLY GETS C BCD,[facility] [address] [place], [place], [phone] Comprehensive metabolic 2000 panel 22.7 {RATIO} Abnormal 10-20 [facility] Medicine Work Phone: Comment on above: TOM ONLY GETS C BCD,[facility] [address] [place], [address] Comprehensive metabolic 2000 panel 3.5 g/dL Normal 3.2-5.0 [facility] Medicine Work Phone: Comment on above: TOM ONLY GETS C BCD,[facility] [address] [place], [place], [phone] Comprehensive metabolic 2000 panel 95 mg/dL Normal 74-106 [facility] Internal Medicine Work Phone: Comment on above: Please note revised GLUCOSE reference range phjakmpsa31/02/2018. TOM ONLY GETS C BCD,[facility] [address] [place], [place], [id number] Comprehensive metabolic 2000 panel 19 mg/dL Abnormal 7-18 [facility] Medicine Work Phone: Comment on above: TOM ONLY GETS C BCD,[facility] [address] [place], [place], [phone] Comprehensive metabolic 2000 panel 0.84 mg/dL Normal 0.70-1.30 [facility] Internal Medicine Work Phone: Comment on above: The validity of the calculated GFR AND GFRAA in patients over70 years has not been determined. Clinical correlation isessential. TOM ONLY GETS C BCD,[facility] [address] [place], [place], [phone] Comprehensive metabolic 2000 panel 100 mL/min Normal [facility] Internal Medicine Work Phone: Comment on above: Non- GFR Calc TOM ONLY GETS C BCD,[facility] [address] [place], [address] Comprehensive metabolic 2000 panel 8.4 mg/dL Abnormal 8.5-10.1 [facility] Work Phone: Comment on above: JANELLELANKI ONLY GETS C BCD,[facility] [address] [place], [address] Comprehensive metabolic 2000 panel 4 1 Abnormal 5-15 [facility] Medicine Work Phone: Comment on above: VELLANKI ONLY GETS C BCD,[facility] [address] [place], [address] Comprehensive metabolic 2000 panel 108 mmol/L Abnormal 98-107 [facility] Work Phone: Comment on above: JANELLELANKI ONLY GETS C BCD,[facility] [address] [place], [place], [phone] Comprehensive metabolic 2000 panel 4.2 mmol/L Normal 3.5-5.1 [facility] Work Phone: Comment on above: JANELLELANKI ONLY GETS C BCD,[facility] [address] [place], [place], [phone] Comprehensive metabolic 2000 panel 141 mmol/L Normal 136-145 [facility] Medicine Work Phone: Comment on above: JANELLELANKI ONLY GETS C BCD,[facility] [address] [place], [place], [phone] Comprehensive metabolic 2000 panel 0.40 mg/dL Normal 0.20-1.00 [facility] Work Phone: Comment on above: VELLANKI ONLY GETS C BCD,[facility] [address] [place], [place], [phone] Comprehensive metabolic 2000 panel 22 U/L Normal 15-37 [facility] Work Phone: Comment on above: VELLANKI ONLY GETS C BCD,[facility] [address] [place], [address] Comprehensive metabolic 2000 panel 55 U/L Normal 45-117 [facility] Work Phone: Comment on above: VELLANKI ONLY GETS C BCD,[facility] [address] [place], [address] Comprehensive metabolic 2000 panel 121 mL/min Normal [facility] Work Phone: Comment on above: GFR Calc VELLANKI ONLY GETS C BCD,[facility] [address] [place], [address] Comprehensive metabolic 2000 panel 36 U/L Normal 16-61 [facility] Work Phone: Comment on above: VELLANKI ONLY GETS C BCD,[facility] [address] [place], [address] Comprehensive metabolic 2000 panel 6.7 g/dL Normal 6.4-8.2 [facility] Work Phone: Comment on above: VELLANKI ONLY GETS C BCD,[facility] [address] [place], [address] Comprehensive metabolic 2000 panel 29.0 mmol/L Normal 21.0-32.0 [facility] Work Phone: Comment on above: VELLANKI ONLY GETS C BCD,[facility] [address] [place], [address] Hemoglobin T6tGmybmqs By: Sy stem Gm on 06-29-2017 Hemoglobin A1c/Hemoglobin.total mass fraction (Bld) 6.0 % Normal 4.2-6.3 Comprehensiv e Internal Medicine Work Phone: Comment on above: [facility] [address] [place], [address] Lipid ProfileOrdered By: Liat tem Gm on 06-29-2017 Cholesterol in HDL mass conc 56 mg/dL Normal [facility] Work Phone: Comment on above: The drugs N-Acetylcy steine and Metamizole may falselydepress this assay. Reference Range HDL <40 mg/dL Low HDL Cholesterol HDL >or= 60 mg/dL High HDL Cholesterol CLIFFORDKI ONLY GETS C BCD,[facility] [address] [place], [address] Cholesterol in LDL mass conc 67 mg/dL Normal 0-130 [facility] Work Phone: Comment on above: CLIFFORDKI ONLY GETS C BCD,[facility] [address] [place], [address] Cholesterol in VLDL mass conc 9 mg/dL Normal 5-40 [facility] Work Phone: Comment on above: CLIFFORDKI ONLY GETS C BCD,[facility] [address] [place], [address] Cholesterol mass conc 132 mg/dL Normal [facility] prehensive Internal Medicine Work Phone: Comment on above: <200 mg/dL Desirable 200-240 mg/dL Borderline >240 mg/dL High Risk CLIFFORDKI ONLY GETS C BCD,[facility] [address] [place], [address] Triglyceride mass conc 47 mg/dL Normal Co mprehensive Internal Medicine Work Phone: Comment on above: The drugs N-Acetylcy steine and Metamizole may falselydepress this assay.Serum Triglycerides Reference Interval Normal <150 mg/dL Borderline high 150 - 199 mg/dL High 200 - 499 mg/dL Very High > or = 500 mg/dL VELLANKI ONLY GETS C BCD,[facility] [address] [place], [place], [id number] Lipid Profile 9 mg/dL Normal 5-40 Comprehensi ve Internal Medicine Work Phone: Comment on above: VELLANKI ONLY GETS C BCD,[facility] [address] [place], [address] Lipid Profile 67 mg/dL Normal 0-130 Comprehensi ve Internal Medicine Work Phone: Comment on above: VELLANKI ONLY GETS C BCD,[facility] [address] [place], [address] Lipid Profile 56 mg/dL Normal Comprehensi Internal Medicine Work Phone: Comment on above: The drugs N-Acetylcy steine and Metamizole may falselydepress this assay. Reference Range HDL <40 mg/dL Low HDL Cholesterol HDL >or= 60 mg/dL High HDL Cholesterol VELLANKI ONLY GETS C BCD,[facility] [address] [place], [address] Lipid Profile 47 mg/dL Normal Comprehensi Internal Medicine Work Phone: Comment on above: The drugs N-Acetylcy steine and Metamizole may falselydepress this assay.Serum Triglycerides Reference Interval Normal <150 mg/dL Borderline high 150 - 199 mg/dL High 200 - 499 mg/dL Very High > or = 500 mg/dL VELLANKI ONLY GETS C BCD,[facility] [address] [place], [address] Lipid Profile 132 mg/dL Normal Comprehensi Internal Medicine Work Phone: Comment on above: <200 mg/dL Desirable 200-240 mg/dL Borderline >240 mg/dL High Risk VELLANKI ONLY GETS C BCD,[facility] [address] [place], [address] MicroalbOrdered By: Remberto garibay on 06-29-2017 Microalb 4.1 {mg/g_CRE} Normal Comprehens nik Internal Medicine Work Phone: Comment on above: [facility] [address] [place], [place], [phone] Microalb 10.9 mg/L Normal Comprehensive Internal Medicine Work Phone: Comment on above: [facility] [address] [place], [place], [phone] Microalb 264.00 mg/dL Normal Comprehensiv e Internal Medicine Work Phone: Comment on above: [facility] [address] [place], [place], [phone] Thyroid Stim Hormone (TSH)Or dered By: Washerette Machine Operator on 06-29-2017 Thyrotropin Qn 0.84 {uIU/mL} Normal 0.358-3.74 Compreh ensive Internal Medicine Work Phone: Comment on above: TOM MACDONALD C BCD,[facility] [address] [place], [place], [phone] Urinalysis, CompleteOrdered By: Washerette Machine Operator on 06-29-2017 Protein mass conc (U) Negative Normal Com prehensive Internal Medicine Work Phone: Comment on above: How was Urine Obtain ed? [facility] [address] [place], [place], [phone] RBC #/vol (U) 0 SEEN Normal 0-5 Comprehensi ve Internal Medicine Work Phone: Comment on above: How was Urine Obtain ed? [facility] [address] [place], [place], [phone] Urinalysis complete panel - Urine 1 mg/dL Abnormal Comprehensive Internal Medicine Work Phone: Comment on above: COLOR OF URINE MAY A FFECT DIPSTICK RESULTS. How was Urine Obtain ed? [facility] [address] [place], [address] Urinalysis complete panel - Urine 5 mg/dL Abnormal Comprehensive Internal Medicine Work Phone: Comment on above: How was Urine Obtain ed? [facility] [address] [place], [address] Urinalysis complete panel - Urine Clear Normal Comprehensive Internal Medicine Work Phone: Comment on above: How was Urine Obtain ed? [facility] [address] [place], [address] Urinalysis complete panel - Urine 1.020 1 Normal 1.002-1.03 0 Comprehensive Internal Medicine Work Phone: Comment on above: How was Urine Obtain ed? [facility] [address] [place], [address] Urinalysis complete panel - Urine 6.0 1 Normal 5.0 - 8.0 Comprehensive Internal Medicine Work Phone: Comment on above: How was Urine Obtain ed? [facility] [address] [place], [address] Urinalysis complete panel - Urine Negative Normal Comprehensive [facility] Medicine Work Phone: Comment on above: How was Urine Obtain ed? [facility] [address] [place], [address] Urinalysis complete panel - Urine Yellow Normal Comprehensive Internal Medicine Work Phone: Comment on above: How was Urine Obtain ed? [facility] [address] [place], [address] Urinalysis complete panel - Urine Normal Normal Comprehensive [facility] Medicine Work Phone: Comment on above: How was Urine Obtain ed? [facility] [address] [place], [address] Urinalysis complete panel - Urine 0 SEEN Normal 0-5 Comprehensive Internal Medicine Work Phone: Comment on above: How was Urine Obtain ed? [facility] [address] [place], [id number] Vitamin D,25 HydroxyOrdered By: Washerette Machine Operator on 06-29-2017 Vitamin D,25 Hydroxy 38.9 ng/mL Normal 29.95-1 00. 01 Comprehensive [facility] Medicine Work Phone: Comment on above: Vitamin D 25(OH) Sta tus Range Deficiency <20 ng/mL (50nmol/L) Insuffciency 20 - 30 ng/mL (50 - 75 nmol/L) Sufficiency 30 - 100 ng/mL (75 - 250 nmol/L) Toxicity >100 ng/mL (>250 nmol/L) [facility] [address] [place], [phone] CBC W/Diff, AutomatedOrdered By: Washerette Machine Operator on 04-22-2017 Absolute Neut 4.2 {X10_3/uL} Normal 2.0-7.7 Compreh ensive Internal Medicine Work Phone: Comment on above: [facility] [address] [place], [phone] Basophils/100 WBC (Bld) 0.3 % Normal 0-1 C omprehensive Internal Medicine Work Phone: Comment on above: [facility] [address] [place], [phone] Eosinophils/100 WBC (Bld) 4.1 % Normal 0-5 Comprehensive Internal Medicine Work Phone: Comment on above: [facility] [address] [place], [phone] Erythrocyte distribution width Ratio (RBC) 14.8 % Abnormal 11.6-14.6 Comprehensive [facility] Medicine Work Phone: Comment on above: [facility] [address] [place], [phone] Hematocrit Volume Fraction (Bld) 38.0 % Abnormal 40-54 Comprehensive [facility] Medicine Work Phone: Comment on above: [facility] [address] [place], [address] Hemoglobin mass conc (Bld) 12.4 g/dL Abnormal 13.0-16.5 Comprehensive [facility] Medicine Work Phone: Comment on above: [facility] [address] [place], [address] IM GRAN % 0.300 % Normal 0.0-0.9 Comprehensive [facility] Work Phone: Comment on above: IG% - Immature Granu locytes (promyelocytes, myelocytes andmetamyelocytes) > 1% indicates that a LEFT SHIFT is Present. [facility] [address] [place], [place], [phone] Lymphocytes #/vol (Bld) 1.71 {X10_3/ul} Normal 0.83-4. 51 Comprehensive Internal Medicine Work Phone: Comment on above: [facility] [address] [place], [address] Lymphocytes/100 WBC (Bld) 25.0 % Normal 19-41 Comprehensive Internal Medicine Work Phone: Comment on above: [facility] [address] [place], [address] MCH Entitic mass (RBC) 29.7 pg Normal 27.0-32.0 [facility] Work Phone: Comment on above: [facility] [address] [place], [address] MCHC mass conc (RBC) 32.6 {g/gl} Normal 32-36 [facility] prehensive Internal Medicine Work Phone: Comment on above: [facility] [address] [place], [address] MCV Entitic volume (RBC) 91.1 fL Normal 80-94 Comprehensive [facility] Medicine Work Phone: Comment on above: [facility] [address] [place], [address] Monocytes/100 WBC (Bld) 8.2 % Normal 0-10 C omprehensive Internal Medicine Work Phone: Comment on above: [facility] [address] [place], [address] Neutrophils/100 WBC (Bld) 62.1 % Normal 47-70 [facility] Work Phone: Comment on above: [facility] [address] [place], [address] Platelet mean volume Entitic volume (Bld) 9.7 fL Normal 6.2-12.0 Comprehensi ve Internal Medicine Work Phone: Comment on above: [facility] [address] [place], [address] Platelets #/vol (Bld) 258 10*3/uL Normal 150-450 Co mprehensive Internal Medicine Work Phone: Comment on above: [facility] [address] [place], [address] RBC #/vol (Bld) 4.17 {M/mm3} Abnormal 4.6-6.2 Compreh ensive Internal Medicine Work Phone: Comment on above: [facility] [address] [place], [address] RDW SD 48.1 fL Abnormal 35.1-43.9 Comprehensive [facility] Work Phone: Comment on above: [facility] [address] [place], [address] WBC #/vol (Bld) 6.8 10*3/uL Normal 4.4-11.0 Comprehe nsive Internal Medicine Work Phone: Comment on above: [facility] [address] [place], [address] CBC W/Diff, Automated 48.1 fL Abnormal 35.1-43.9 Com prehensive Internal Medicine Work Phone: Comment on above: [facility] [address] [place], [address] CBC W/Diff, Automated 1.71 {X10_3/ul} Normal 0.83-4.51 [facility] Work Phone: Comment on above: [facility] [address] [place], [address] CBC W/Diff, Automated 4.2 {X10_3/uL} Normal 2.0-7.7 [facility] Work Phone: Comment on above: [facility] [address] [place], [address] CBC W/Diff, Automated 0.300 % Normal 0.0-0.9 [facility] prehensive Internal Medicine Work Phone: Comment on above: IG% - Immature Granu locytes (promyelocytes, myelocytes andmetamyelocytes) > 1% indicates that a LEFT SHIFT is Present. [facility] [address] [place], [address] CBC W/Diff, Automated 0.3 % Normal 0-1 Com prehensive Internal Medicine Work Phone: Comment on above: [facility] [address] [place], [address] CBC W/Diff, Automated 8.2 % Normal 0-10 Com prehensive Internal Medicine Work Phone: Comment on above: [facility] [address] [place], [address] CBC W/Diff, Automated 25.0 % Normal 19-41 [facility] prehensive Internal Medicine Work Phone: Comment on above: [facility] [address] [place], [address] CBC W/Diff, Automated 6.8 K/mm3 Normal 4.4-11.0 Com prehensive Internal Medicine Work Phone: Comment on above: [facility] [address] [place], [address] CBC W/Diff, Automated 4.17 {M/mm3} Abnormal 4.6-6.2 [facility] Work Phone: Comment on above: [facility] [address] [place], [address] CBC W/Diff, Automated 62.1 % Normal 47-70 Com prehensive Internal Medicine Work Phone: Comment on above: [facility] [address] [place], [address] CBC W/Diff, Automated 258 K/mm3 Normal 150-450 Com prehensive Internal Medicine Work Phone: Comment on above: [facility] [address] [place], [address] CBC W/Diff, Automated 9.7 fL Normal 6.2-12.0 Com prehensive Internal Medicine Work Phone: Comment on above: [facility] [address] [place], [address] CBC W/Diff, Automated 4.1 % Normal 0-5 Com prehensive Internal Medicine Work Phone: Comment on above: [facility] [address] [place], [address] CBC W/Diff, Automated 91.1 fL Normal 80-94 Com prehensive Internal Medicine Work Phone: Comment on above: [facility] [address] [place], [address] CBC W/Diff, Automated 29.7 pg Normal 27.0-32.0 Com prehensive Internal Medicine Work Phone: Comment on above: [facility] [address] [place], [place], [phone] CBC W/Diff, Automated 38.0 % Abnormal 40-54 Com prehensive Internal Medicine Work Phone: Comment on above: [facility] [address] [place], [place], [address] CBC W/Diff, Automated 32.6 {g/gl} Normal 32-36 [facility] Work Phone: Comment on above: [facility] [address] [place], [place], [address] CBC W/Diff, Automated 12.4 g/dL Abnormal 13.0-16.5 Com prehensive Internal Medicine Work Phone: Comment on above: [facility] [address] [place], [place], [phone] CBC W/Diff, Automated 14.8 % Abnormal 11.6-14.6 [facility] prehensive Internal Medicine Work Phone: Comment on above: [facility] [address] [place], [place], [phone] Comprehensive Metabolic Prof ilOrdered By: Washerette Machine Operator on 04-22-2017 Comprehensive metabolic 2000 panel 116 mL/min Normal Comprehensive [facility] Medicine Work Phone: Comment on above: GFR Calc [facility] [address] [place], [place], [phone] Comprehensive metabolic 2000 panel 140 mmol/L Normal 136-145 Comprehensive [facility] Medicine Work Phone: Comment on above: [facility] [address] [place], [place], [phone] Comprehensive metabolic 2000 panel 19 mg/dL Abnormal 7-18 Comprehensive [facility] Medicine Work Phone: Comment on above: [facility] [address] [place], [place], [address] Comprehensive metabolic 2000 panel 7 1 Normal 5-15 Comprehensive [facility] Medicine Work Phone: Comment on above: [facility] [address] [place], [place], [address] Comprehensive metabolic 2000 panel 30.0 mmol/L Normal 21.0-32.0 Comprehensive Internal Medicine Work Phone: Comment on above: [facility] [address] [place], [place], [phone] Comprehensive metabolic 2000 panel 103 mmol/L Normal 98-107 Comprehensive Internal Medicine Work Phone: Comment on above: [facility] [address] [place], [place], [phone] Comprehensive metabolic 2000 panel 3.8 mmol/L Normal 3.5-5.1 Comprehensive Internal Medicine Work Phone: Comment on above: [facility] [address] [place], [place], [address] Comprehensive metabolic 2000 panel 0.87 mg/dL Normal 0.70-1.30 Comprehensive Internal Medicine Work Phone: Comment on above: The validity of the calculated GFR AND GFRAA in patients over70 years has not been determined. Clinical correlation isessential. [facility] [address] [place], [place], [phone] Comprehensive metabolic 2000 panel 96 mL/min Normal Comprehensive Internal Medicine Work Phone: Comment on above: Non- GFR Calc [facility] [address] [place], [place], [address] Comprehensive metabolic 2000 panel 21.9 {RATIO} Abnormal 10-20 Comprehensive [facility] Medicine Work Phone: Comment on above: [facility] [address] [place], [place], [phone] Comprehensive metabolic 2000 panel 6.9 g/dL Normal 6.4-8.2 Comprehensive [facility] Medicine Work Phone: Comment on above: [facility] [address] [place], [place], [address] Comprehensive metabolic 2000 panel 3.7 g/dL Normal 3.2-5.0 Comprehensive Internal Medicine Work Phone: Comment on above: [facility] [address] [place], [place], [address] Comprehensive metabolic 2000 panel 3.2 g/dL Normal 2.2-4.2 Comprehensive [facility] Medicine Work Phone: Comment on above: [facility] [address] [place], [place], [address] Comprehensive metabolic 2000 panel 1.2 {RATIO} Normal 0.9-2.4 Comprehensive [facility] Medicine Work Phone: Comment on above: [facility] [address] [place], [address] Comprehensive metabolic 2000 panel 8.5 mg/dL Normal 8.5-10.1 Comprehensive [facility] Medicine Work Phone: Comment on above: [facility] [address] [place], [place], [address] Comprehensive metabolic 2000 panel 98 mg/dL Normal 74-106 Comprehensive Internal Medicine Work Phone: Comment on above: Please note revised GLUCOSE reference range [id number]/02/2018. [facility] [address] [place], [address] Comprehensive metabolic 2000 panel 28 U/L Normal 15-37 Comprehensive [facility] Medicine Work Phone: Comment on above: [facility] [address] [place], [address] Comprehensive metabolic 2000 panel 68 U/L Normal 45-117 Comprehensive [facility] Medicine Work Phone: Comment on above: [facility] [address] [place], [address] Comprehensive metabolic 2000 panel 49 U/L Normal 16-61 Comprehensive Internal Medicine Work Phone: Comment on above: Please note revised ALT reference range [id number]/28/2018. [facility] [address] [place], [place], [id number] Comprehensive metabolic 2000 panel 0.50 mg/dL Normal 0.20-1.00 Comprehensive [facility] Medicine Work Phone: Comment on above: [facility] [address] [place], [place], [phone] Hemoglobin G7tTqgckzt By: Sy stem Gm on 02-14-2017 Hemoglobin A1c/Hemoglobin.total mass fraction (Bld) 5.8 % Normal 4.2-6.3 Comprehensiv e Internal Medicine Work Phone: Comment on above: [facility] [address] [place], [place], [phone] CBC W/Diff, AutomatedOrdered By: Washerette Machine Operator on 01-16-2017 Absolute Neut 2.9 {X10_3/uL} Normal 2.0-7.7 Compreh ensive Internal Medicine Work Phone: Comment on above: [facility] [address] [place], [place], [phone] Basophils/100 WBC (Bld) 0.4 % Normal 0-1 C omprehensive Internal Medicine Work Phone: Comment on above: [facility] [address] [place], [address] Eosinophils/100 WBC (Bld) 4.5 % Normal 0-5 Comprehensive [facility] Work Phone: Comment on above: [facility] [address] [place], [place], [phone] Erythrocyte distribution width Ratio (RBC) 15.5 % Abnormal 11.6-14.6 Comprehensive [facility] Work Phone: Comment on above: [facility] [address] [place], [address] Hematocrit Volume Fraction (Bld) 40.8 % Normal 40-54 Comprehensive [facility] Medicine Work Phone: Comment on above: [facility] [address] [place], [address] Hemoglobin mass conc (Bld) 12.9 g/dL Abnormal 13.0-16.5 Comprehensive [facility] Work Phone: Comment on above: [facility] [address] [place], [address] IM GRAN % 0.200 % Normal 0.0-0.9 [facility] Work Phone: Comment on above: IG% - Immature Granu locytes (promyelocytes, myelocytes andmetamyelocytes) > 1% indicates that a LEFT SHIFT is Present. [facility] [address] [place], [address] Lymphocytes #/vol (Bld) 1.51 {X10_3/ul} Normal 0.83-4. 51 Comprehensive [facility] Medicine Work Phone: Comment on above: [facility] [address] [place], [address] Lymphocytes/100 WBC (Bld) 29.3 % Normal 19-41 Comprehensive [facility] Medicine Work Phone: Comment on above: [facility] [address] [place], [address] MCH Entitic mass (RBC) 29.4 pg Normal 27.0-32.0 [facility] Work Phone: Comment on above: [facility] [address] [place], [address] MCHC mass conc (RBC) 31.6 {g/gl} Abnormal 32-36 Com prehensive Internal Medicine Work Phone: Comment on above: [facility] [address] [place], [place], [phone] MCV Entitic volume (RBC) 92.9 fL Normal 80-94 [facility] Work Phone: Comment on above: [facility] [address] [place], [address] Monocytes/100 WBC (Bld) 9.3 % Normal 0-10 C omprehensive Internal Medicine Work Phone: Comment on above: [facility] [address] [place], [address] Neutrophils/100 WBC (Bld) 56.3 % Normal 47-70 Comprehensive [facility] Medicine Work Phone: Comment on above: [facility] [address] [place], [address] Platelet mean volume Entitic volume (Bld) 9.3 fL Normal 6.2-12.0 Comprehensi ve Internal Medicine Work Phone: Comment on above: [facility] [address] [place], [address] Platelets #/vol (Bld) 239 10*3/uL Normal 150-450 Co [facility] Work Phone: Comment on above: [facility] [address] [place], [address] RBC #/vol (Bld) 4.39 {M/mm3} Abnormal 4.6-6.2 Compreh ensive Internal Medicine Work Phone: Comment on above: [facility] [address] [place], [address] RDW SD 52.0 fL Abnormal 35.1-43.9 Comprehensive [facility] Medicine Work Phone: Comment on above: [facility] [address] [place], [address] WBC #/vol (Bld) 5.2 10*3/uL Normal 4.4-11.0 Comprehe nsive Internal Medicine Work Phone: Comment on above: [facility] [address] [place], [address] CBC W/Diff, Automated 239 K/mm3 Normal 150-450 Com prehensive Internal Medicine Work Phone: Comment on above: [facility] [address] [place], [address] CBC W/Diff, Automated 1.51 {X10_3/ul} Normal 0.83-4.51 [facility] Work Phone: Comment on above: [facility] [address] [place], [address] CBC W/Diff, Automated 9.3 % Normal 0-10 [facility] prehensive Internal Medicine Work Phone: Comment on above: [facility] [address] [place], [address] CBC W/Diff, Automated 9.3 fL Normal 6.2-12.0 [facility] prehensive Internal Medicine Work Phone: Comment on above: [facility] [address] [place], [address] CBC W/Diff, Automated 29.3 % Normal 19-41 [facility] prehensive Internal Medicine Work Phone: Comment on above: [facility] [address] [place], [address] CBC W/Diff, Automated 56.3 % Normal 47-70 [facility] prehensive Internal Medicine Work Phone: Comment on above: [facility] [address] [place], [address] CBC W/Diff, Automated 2.9 {X10_3/uL} Normal 2.0-7.7 [facility] Work Phone: Comment on above: [facility] [address] [place], [address] CBC W/Diff, Automated 15.5 % Abnormal 11.6-14.6 Com prehensive Internal Medicine Work Phone: Comment on above: [facility] [address] [place], [address] CBC W/Diff, Automated 31.6 {g/gl} Abnormal 32-36 [facility] Work Phone: Comment on above: [facility] [address] [place], [address] CBC W/Diff, Automated 52.0 fL Abnormal 35.1-43.9 Com prehensive Internal Medicine Work Phone: Comment on above: [facility] [address] [place], [address] CBC W/Diff, Automated 92.9 fL Normal 80-94 [facility] prehensive Internal Medicine Work Phone: Comment on above: [facility] [address] [place], [address] CBC W/Diff, Automated 4.39 {M/mm3} Abnormal 4.6-6.2 [facility] Work Phone: Comment on above: [facility] [address] [place], [address] CBC W/Diff, Automated 12.9 g/dL Abnormal 13.0-16.5 [facility] prehensive Internal Medicine Work Phone: Comment on above: [facility] [address] [place], [address] CBC W/Diff, Automated 40.8 % Normal 40-54 [facility] prehensive Internal Medicine Work Phone: Comment on above: [facility] [address] [place], [address] CBC W/Diff, Automated 5.2 K/mm3 Normal 4.4-11.0 [facility] prehensive Internal Medicine Work Phone: Comment on above: [facility] [address] [place], [place], [id number] CBC W/Diff, Automated 29.4 pg Normal 27.0-32.0 [facility] prehensive Internal Medicine Work Phone: Comment on above: [facility] [address] [place], [place], [address] CBC W/Diff, Automated 4.5 % Normal 0-5 Com prehensive Internal Medicine Work Phone: Comment on above: [facility] [address] [place], [place], [address] CBC W/Diff, Automated 0.200 % Normal 0.0-0.9 [facility] prehensive Internal Medicine Work Phone: Comment on above: IG% - Immature Granu locytes (promyelocytes, myelocytes andmetamyelocytes) > 1% indicates that a LEFT SHIFT is Present. [facility] [address] [place], [place], [address] CBC W/Diff, Automated 0.4 % Normal 0-1 [facility] prehensive Internal Medicine Work Phone: Comment on above: [facility] [address] [place], [place], [phone] Comprehensive Metabolic Prof ilOrdered By: Washerette Machine Operator on 01-16-2017 Comprehensive metabolic 2000 panel 30.0 mmol/L Normal 21.0-32.0 [facility] Medicine Work Phone: Comment on above: [facility] [address] [place], [place], [address] Comprehensive metabolic 2000 panel 15 mg/dL Normal 7-18 Comprehensive Internal Medicine Work Phone: Comment on above: [facility] [address] [place], [place], [address] Comprehensive metabolic 2000 panel 7.2 g/dL Normal 6.4-8.2 [facility] Medicine Work Phone: Comment on above: [facility] spital [address] [place], [address] Comprehensive metabolic 2000 panel 102 mmol/L Normal 98-107 Comprehensive Internal Medicine Work Phone: Comment on above: [facility] spital [address] [place], [address] Comprehensive metabolic 2000 panel 4.0 mmol/L Normal 3.5-5.1 [facility] Medicine Work Phone: Comment on above: [facility] spital [address] [place], [address] Comprehensive metabolic 2000 panel 138 mmol/L Normal 136-145 Comprehensive Internal Medicine Work Phone: Comment on above: [facility] spital [address] [place], [address] Comprehensive metabolic 2000 panel 114 mL/min Normal Comprehensive [facility] Medicine Work Phone: Comment on above: GFR Calc [facility] spital [address] [place], [address] Comprehensive metabolic 2000 panel 94 mL/min Normal [facility] Medicine Work Phone: Comment on above: Non- GFR Calc [facility] spital [address] [place], [address] Comprehensive metabolic 2000 panel 3.5 g/dL Normal 2.2-4.2 [facility] Work Phone: Comment on above: [facility] spital [address] [place], [address] Comprehensive metabolic 2000 panel 96 mg/dL Normal 70-110 [facility] Medicine Work Phone: Comment on above: [facility] spital [address] [place], [address] Comprehensive metabolic 2000 panel 0.88 mg/dL Normal 0.70-1.30 [facility] Medicine Work Phone: Comment on above: The validity of the calculated GFR AND GFRAA in patients over70 years has not been determined. Clinical correlation isessential. [facility] [address] [place], [address] Comprehensive metabolic 2000 panel 0.50 mg/dL Normal 0.20-1.00 [facility] Medicine Work Phone: Comment on above: [facility] [address] [place], [address] Comprehensive metabolic 2000 panel 34 U/L Normal 12-78 Comprehensive Internal Medicine Work Phone: Comment on above: [facility] [address] [place], [address] Comprehensive metabolic 2000 panel 64 U/L Normal 45-117 Comprehensive [facility] Medicine Work Phone: Comment on above: [facility] [address] [place], [address] Comprehensive metabolic 2000 panel 1.1 {RATIO} Normal 0.9-2.4 [facility] Work Phone: Comment on above: [facility] [address] [place], [address] Comprehensive metabolic 2000 panel 23 U/L Normal 15-37 Comprehensive [facility] Medicine Work Phone: Comment on above: [facility] [address] [place], [address] Comprehensive metabolic 2000 panel 3.7 g/dL Normal 3.4-5.0 [facility] Medicine Work Phone: Comment on above: Please note revised Albumin AND Globulin reference rangeeffective 2016. [facility] [address] [place], [address] Comprehensive metabolic 2000 panel 8.9 mg/dL Normal 8.5-10.1 [facility] Work Phone: Comment on above: [facility] [address] [place], [place], [address] Comprehensive metabolic 2000 panel 6 1 Normal 5-15 [facility] Medicine Work Phone: Comment on above: [facility] [address] [place], [phone] Comprehensive metabolic 2000 panel 17.0 {RATIO} Normal 10-20 [facility] Medicine Work Phone: Comment on above: [facility] [address] [place], [phone] Pathology ReportOrdered By: Washerette Machine Operator on 12-05-2016 Pathology report site of origin Narrative MATER Normal Comprehensiv e Internal Medicine Work Phone: Comment on above: Material submitted: .RIGHT LOWER LEG SHAVE BIOPSYClinician provided ICD-10:D48.5Clinical history: .FLAT RED LESION W/SCALE; USED TO BE RAISED / FLAKED OFF Diagnosis:IRRITATED SEBORRHEIC KERATOSIS WITH PATCHY LICHENOID TISSUEREACTION OVERLYING VASCULAR PROLIFERATIVE STASIS CHANGE..COMMENT:THERE IS NO EVIDENCE OF MALIGNANCY IN THESE SECTIONS.TG/12/09/2016 Electronically signed: .Kimberly Valentino MD, DermatopathologistGross description: .1 CONTAINER, FORMALIN-FILLED, LABELED WITH PATIENT IDENTIFICATION.RIGHT LOWER LEG SHAVE BIOPSY:1 SHAVE BIOPSY OF ANDRADE-YELLOW SKIN MEASURING 1.2 X 0.7 X 0.1 CM. THESURGICAL MARGIN IS INKED BLACK. THE SPECIMEN IS TRISECTED. IT ISSUBMITTED ENTIRELY IN CASSETTE(S) A./LMSLMS/LMSPathologist provided ICD-10:L82.1, L44.9, I87.9CPT .[id number] PERFORMED BY: KWCYT [facility] [place] Cyto [id number] [facility] [id number] BY: [facility] Dermatopathology Lj[address] [id number] Information: [id number] CBC W/Diff, AutomatedOrdered By: Washerette Machine Operator on 10-31-2016 Absolute Neut 4.3 {X10_3/uL} Normal 2.0-7.7 Compreh ensive Internal Medicine Work Phone: Comment on above: DR SANTOS ORDERED CMP CBCDDR SANKET ORDERED A1C LIPID CMP LOREN CBCD [facility] [address] [place], [place], [phone] Basophils/100 WBC (Bld) 0.3 % Normal 0-1 C omprehensive Internal Medicine Work Phone: Comment on above: DR SANTOS ORDERED CMP CBCDDR SANKET ORDERED A1C LIPID CMP LOREN CBCD [facility] [address] [place], [address] Eosinophils/100 WBC (Bld) 4.5 % Normal 0-5 [facility] Work Phone: Comment on above: DR SANTOS ORDERED CMP CBCDDR SANKET ORDERED A1C LIPID CMP LOREN CBCD [facility] [address] [place], [place], [phone] Erythrocyte distribution width Ratio (RBC) 15.0 % Abnormal 11.6-14.6 [facility] Work Phone: Comment on above: DR SANTOS ORDERED CMP CBCDDR SANKET ORDERED A1C LIPID CMP LOREN CBCD [facility] [address] [place], [address] Hematocrit Volume Fraction (Bld) 40.5 % Normal 40-54 [facility] Work Phone: Comment on above: DR SANTOS ORDERED CMP CBCDDR SANKET ORDERED A1C LIPID CMP LOREN CBCD [facility] [address] [place], [place], [phone] Hemoglobin mass conc (Bld) 12.9 g/dL Abnormal 13.0-16.5 [facility] Work Phone: Comment on above: DR SANTOS ORDERED CMP CBCDDR SANKET ORDERED A1C LIPID CMP LOREN CBCD [facility] [address] [place], [address] IM GRAN % 0.100 % Normal 0.0-0.9 [facility] Work Phone: Comment on above: IG% - Immature Granu locytes (promyelocytes, myelocytes andmetamyelocytes) > 1% indicates that a LEFT SHIFT is Present. DR SANTOS ORDERED CMP CBCDDR SANKET ORDERED A1C LIPID CMP LOREN CBCD [facility] [address] [place], [address] Lymphocytes #/vol (Bld) 2.23 {X10_3/ul} Normal 0.83-4. 51 [facility] Work Phone: Comment on above: DR SANTOS ORDERED CMP CBCDDR SANKET ORDERED A1C LIPID CMP LOREN CBCD [facility] [address] [place], [address] Lymphocytes/100 WBC (Bld) 30.1 % Normal 19-41 [facility] Work Phone: Comment on above: DR SANTOS ORDERED CMP CBCDDR SANKET ORDERED A1C LIPID CMP LOREN CBCD [facility] [address] [place], [address] MCH Entitic mass (RBC) 28.8 pg Normal 27.0-32.0 Co [facility] Internal Medicine Work Phone: Comment on above: DR SANTOS ORDERED CMP CBCDDR SANKET ORDERED A1C LIPID CMP LOREN CBCD [facility] [address] [place], [address] MCHC mass conc (RBC) 31.9 {g/gl} Abnormal 32-36 Com prehensive Internal Medicine Work Phone: Comment on above: DR SANTOS ORDERED CMP CBCDDR SANKET ORDERED A1C LIPID CMP LOREN CBCD [facility] [address] [place], [address] MCV Entitic volume (RBC) 90.4 fL Normal 80-94 [facility] Work Phone: Comment on above: DR SANTOS ORDERED CMP CBCDDR SANKET ORDERED A1C LIPID CMP LOREN CBCD [facility] [address] [place], [address] Monocytes/100 WBC (Bld) 7.4 % Normal 0-10 C omprehensive Internal Medicine Work Phone: Comment on above: DR SANTOS ORDERED CMP CBCDDR SANKET ORDERED A1C LIPID [facility] [address] [place], [address] Neutrophils/100 WBC (Bld) 57.6 % Normal 47-70 [facility] Work Phone: Comment on above: DR SANTOS ORDERED CMP CBCDDR SANKET ORDERED A1C LIPID CMP LOREN CBCD [facility] [address] [place], [address] Platelet mean volume Entitic volume (Bld) 9.7 fL Normal 6.2-12.0 Comprehensi Internal Medicine Work Phone: Comment on above: DR SANTOS ORDERED CMP CBCDDR SANKET ORDERED A1C LIPID CMP LOREN CBCD [facility] [address] [place], [address] Platelets #/vol (Bld) 245 10*3/uL Normal 150-450 Co [facility] Internal [facility] Work Phone: Comment on above: DR SANTOS ORDERED CMP CBCDDR SANKET ORDERED A1C LIPID CMP LOREN CBCD [facility] [address] [place], [address] RBC #/vol (Bld) 4.48 {M/mm3} Abnormal 4.6-6.2 Compreh ensive Internal Medicine Work Phone: Comment on above: DR SANTOS ORDERED CMP CBCDDR SANKET ORDERED A1C LIPID CMP LOREN CBCD [facility] [address] [place], [address] RDW SD 49.0 fL Abnormal 35.1-43.9 [facility] Work Phone: Comment on above: DR SANTOS ORDERED CMP CBCDDR SANKET ORDERED A1C LIPID CMP [facility] [address] [place], [address] WBC #/vol (Bld) 7.4 10*3/uL Normal 4.4-11.0 Comprehe nsive Internal Medicine Work Phone: Comment on above: DR SANTOS ORDERED CMP CBCDDR SANKET ORDERED A1C LIPID CMP LOR[place] CBCD [facility] [address] [place], [address] CBC W/Diff, Automated 15.0 % Abnormal 11.6-14.6 [facility] prehensive Internal Medicine Work Phone: Comment on above: DR SANTOS ORDERED CMP CBCDDR SANKET ORDERED A1C LIPID CMP LOREN CBCD [facility] [address] [place], [address] CBC W/Diff, Automated 28.8 pg Normal 27.0-32.0 [facility] prehensive Internal Medicine Work Phone: Comment on above: DR SANTOS ORDERED CMP CBCDDR SANKET ORDERED A1C LIPID CMP LOREN CBCD [facility] [address] [place], [address] CBC W/Diff, Automated 57.6 % Normal 47-70 Com prehensive Internal Medicine Work Phone: Comment on above: DR SANTOS ORDERED CMP CBCDDR SANKET ORDERED A1C LIPID CMP LOR[place] CBCD [facility] [address] [place], [address] CBC W/Diff, Automated 7.4 % Normal 0-10 Com prehensive Internal Medicine Work Phone: Comment on above: DR SANTOS ORDERED CMP CBCDDR SANKET ORDERED A1C LIPID CMP [facility] [address] [place], [address] CBC W/Diff, Automated 4.5 % Normal 0-5 Com prehensive Internal Medicine Work Phone: Comment on above: DR SANTOS ORDERED CMP CBCDDR SANKET ORDERED A1C LIPID CMP [facility] [address] [place], [address] CBC W/Diff, Automated 0.3 % Normal 0-1 Com prehensive Internal Medicine Work Phone: Comment on above: DR SANTOS ORDERED CMP CBCDDR SANKET ORDERED A1C LIPID CMP [facility] [address] [place], [address] CBC W/Diff, Automated 9.7 fL Normal 6.2-12.0 [facility] prehensive Internal Medicine Work Phone: Comment on above: DR SANTOS ORDERED CMP CBCDDR SANKET ORDERED A1C LIPID CMP LOREN CBCD [facility] [address] [place], [address] CBC W/Diff, Automated 0.100 % Normal 0.0-0.9 Com prehensive Internal Medicine Work Phone: Comment on above: IG% - Immature Granu locytes (promyelocytes, myelocytes andmetamyelocytes) > 1% indicates that a LEFT SHIFT is Present. DR SANTOS ORDERED CMP CBCDDR SANKET ORDERED A1C LIPID CMP LOREN CBCD [facility] [address] [place], [address] CBC W/Diff, Automated 4.3 {X10_3/uL} Normal 2.0-7.7 [facility] Work Phone: Comment on above: DR SANTOS ORDERED CMP CBCDDR SANKET ORDERED A1C LIPID CMP LOREN CBCD [facility] [address] [place], [address](921) CBC W/Diff, Automated 245 K/mm3 Normal 150-450 Com prehensive Internal Medicine Work Phone: Comment on above: DR SANTOS ORDERED CMP CBCDDR SANKET ORDERED A1C LIPID CMP LOREN CBCD [facility] [address] [place], [address]([phone] CBC W/Diff, Automated 49.0 fL Abnormal 35.1-43.9 Com prehensive Internal Medicine Work Phone: Comment on above: DR SANTOS ORDERED CMP CBCDDR SANKET ORDERED A1C LIPID CMP LOREN CBCD [facility] [address] [place], [address] CBC W/Diff, Automated 31.9 {g/gl} Abnormal 32-36 [facility] Work Phone: Comment on above: DR SANTOS ORDERED CMP CBCDDR SANKET ORDERED A1C LIPID CMP LOREN CBCD [facility] [address] [place], [address] CBC W/Diff, Automated 2.23 {X10_3/ul} Normal 0.83-4.51 [facility] Work Phone: Comment on above: DR SANTOS ORDERED CMP CBCDDR SANKET ORDERED A1C LIPID CMP LOREN CBCD [facility] [address] [place], [address] CBC W/Diff, Automated 90.4 fL Normal 80-94 Com prehensive Internal Medicine Work Phone: Comment on above: DR SANTOS ORDERED CMP CBCDDR SANKET ORDERED A1C LIPID CMP LOREN CBCD [facility] [address] [place], [place], [phone] CBC W/Diff, Automated 40.5 % Normal 40-54 Com prehensive Internal Medicine Work Phone: Comment on above: DR SANTOS ORDERED CMP CBCDDR SANKET ORDERED A1C LIPID CMP LOREN CBCD [facility] [address] [place], [place], [phone] CBC W/Diff, Automated 12.9 g/dL Abnormal 13.0-16.5 Com prehensive Internal Medicine Work Phone: Comment on above: DR SANTOS ORDERED CMP CBCDDR SANKET ORDERED A1C LIPID CMP LOREN CBCD [facility] [address] [place], [place], [phone] CBC W/Diff, Automated 4.48 {M/mm3} Abnormal 4.6-6.2 C [facility] Work Phone: Comment on above: DR SANTOS ORDERED CMP CBCDDR SANKET ORDERED A1C LIPID CMP LOREN CBCD [facility] [address] [place], [place], [phone] CBC W/Diff, Automated 7.4 K/mm3 Normal 4.4-11.0 [facility] prehensive Internal Medicine Work Phone: Comment on above: DR SANTOS ORDERED CMP CBCDDR SANKET ORDERED A1C LIPID CMP LOREN CBCD [facility] [address] [place], [place], [phone] CBC W/Diff, Automated 30.1 % Normal 19-41 Com prehensive Internal Medicine Work Phone: Comment on above: DR SANTOS ORDERED CMP CBCDDR SANKET ORDERED A1C LIPID CMP LOREN CBCD [facility] [address] [place], [place], [phone] Comprehensive Metabolic Prof ilOrdered By: Washerette Machine Operator on 10-31-2016 Comprehensive metabolic 2000 panel 93 mg/dL Normal 70-110 [facility] Medicine Work Phone: Comment on above: DR SANTOS ORDERED CMP CBCDDR SANKET ORDERED A1C LIPID CMP [facility] [address] [place], [address] Comprehensive metabolic 2000 panel 101 mmol/L Normal 98-107 Comprehensive [facility] Medicine Work Phone: Comment on above: DR SANTOS ORDERED CMP CBCDDR SANKET ORDERED A1C LIPID CMP [facility] [address] [place], [address] Comprehensive metabolic 2000 panel 26.0 mmol/L Normal 21.0-32.0 Comprehensive [facility] Medicine Work Phone: Comment on above: DR SANTOS ORDERED CMP CBCDDR SANKET ORDERED A1C LIPID CMP [facility] [address] [place], [address] Comprehensive metabolic 2000 panel 0.30 mg/dL Normal 0.20-1.00 Comprehensive [facility] Medicine Work Phone: Comment on above: DR SANTOS ORDERED CMP CBCDDR SANKET ORDERED A1C LIPID CMP [facility] [address] [place], [place], [phone] Comprehensive metabolic 2000 panel 17.3 {RATIO} Normal 10-20 Comprehensive [facility] Medicine Work Phone: Comment on above: DR SANTOS ORDERED CMP CBCDDR SANKET ORDERED A1C LIPID CMP [facility] [address] [place], [address] Comprehensive metabolic 2000 panel 108 mL/min Normal Comprehensive [facility] Medicine Work Phone: Comment on above: GFR Calc DR SANTOS ORDERED CMP CBCDDR SANKET ORDERED A1C LIPID CMP LOREN CBCD [facility] [address] [place], [place], [phone] Comprehensive metabolic 2000 panel 89 mL/min Normal Comprehensive [facility] Medicine Work Phone: Comment on above: Non- GFR Calc DR SANTOS ORDERED CMP CBCDDR SANKET ORDERED A1C LIPID CMP [facility] [address] [place], [place], [phone] Comprehensive metabolic 2000 panel 0.93 mg/dL Normal 0.70-1.30 Comprehensive [facility] Medicine Work Phone: Comment on above: The validity of the calculated GFR AND GFRAA in patients over70 years has not been determined. Clinical correlation isessential. DR SANTOS ORDERED CMP CBCDDR SANKET ORDERED A1C LIPID CMP [facility] [address] [place], [place], [phone] Comprehensive metabolic 2000 panel 4.1 mmol/L Normal 3.5-5.1 Comprehensive [facility] Medicine Work Phone: Comment on above: DR SANTOS ORDERED CMP CBCDDR SANKET ORDERED A1C LIPID CMP [facility] [address] [place], [place], [phone] Comprehensive metabolic 2000 panel 16 mg/dL Normal 7-18 Comprehensive [facility] Medicine Work Phone: Comment on above: DR SANTOS ORDERED CMP CBCDDR SANKET ORDERED A1C LIPID CMP [facility] [address] [place], [place], [phone] Comprehensive metabolic 2000 panel 7.4 g/dL Normal 6.4-8.2 [facility] Work Phone: Comment on above: DR SANTOS ORDERED CMP CBCDDR SANKET ORDERED A1C LIPID CMP [facility] [address] [place], [place], [phone] Comprehensive metabolic 2000 panel 4.0 g/dL Normal 3.4-5.0 [facility] Medicine Work Phone: Comment on above: DR SANTOS ORDERED CMP CBCDDR SANKET ORDERED A1C LIPID CMP [facility] [address] [place], [place], [phone] Comprehensive metabolic 2000 panel 3.4 g/dL Normal 2.3-3.5 Comprehensive [facility] Medicine Work Phone: Comment on above: DR SANTOS ORDERED CMP CBCDDR SANKET ORDERED A1C LIPID CMP [facility] [address] [place], [place], [phone] Comprehensive metabolic 2000 panel 136 mmol/L Normal 136-145 Comprehensive [facility] Medicine Work Phone: Comment on above: DR SANTOS ORDERED CMP CBCDDR SANKET ORDERED A1C LIPID CMP [facility] [address] [place], [place], [phone] Comprehensive metabolic 2000 panel 9 1 Normal 5-15 Comprehensive [facility] Medicine Work Phone: Comment on above: DR SANTOS ORDERED CMP CBCDDR SANKET ORDERED A1C LIPID CMP [facility] [address] [place], [place], [phone] Comprehensive metabolic 2000 panel 1.2 {RATIO} Normal 0.9-2.4 Comprehensive [facility] Medicine Work Phone: Comment on above: DR SANTOS ORDERED CMP CBCDDR SANKET ORDERED A1C LIPID CMP [facility] [address] [place], [place], [phone] Comprehensive metabolic 2000 panel 8.9 mg/dL Normal 8.5-10.1 Comprehensive [facility] Medicine Work Phone: Comment on above: DR SANTOS ORDERED CMP CBCDDR SANKET ORDERED A1C LIPID CMP [facility] [address] [place], [place], [phone] Comprehensive metabolic 2000 panel 33 U/L Normal 15-37 Comprehensive [facility] Medicine Work Phone: Comment on above: DR SANTOS ORDERED CMP CBCDDR SANKET ORDERED A1C LIPID CMP [place] CBCD [facility] [address] [place], [place], [phone] Comprehensive metabolic 2000 panel 70 U/L Normal 45-117 Comprehensive [facility] Medicine Work Phone: Comment on above: DR SANTOS ORDERED CMP CBCDDR SANKET ORDERED A1C LIPID CMP [facility] [address] [place], [address] Comprehensive metabolic 2000 panel 45 U/L Normal 12-78 Comprehensive Internal Medicine Work Phone: Comment on above: DR SANTOS ORDERED CMP CBCDDR SANKET ORDERED A1C LIPID CMP [facility] [address] [place], [address] Hemoglobin U5cPuqlfaz By: Blas nesbit Gm on 10-31-2016 Hemoglobin A1c/Hemoglobin.total mass fraction (Bld) 6.0 % Normal 4.2-6.3 Comprehens e Internal Medicine Work Phone: Comment on above: DR SANTOS ORDERED CMP CBCDDR SANKET ORDERED A1C LIPID CMP [place] CBCD [facility] [address] [place], [address] Lipid ProfileOrdered By: Liat tem Gm on 10-31-2016 Cholesterol in HDL mass conc 57 mg/dL Normal Comprehensive Internal Medicine Work Phone: Comment on above: The drugs N-Acetylcy steine and Metamizole may falselydepress this assay. Reference Range HDL <40 mg/dL Low HDL Cholesterol HDL >or= 60 mg/dL High HDL Cholesterol DR SANTOS ORDERED CMP CBCDDR SANKET ORDERED A1C LIPID CMP [place] CBCD [facility] [address] [place], [address] Cholesterol in LDL mass conc 79 mg/dL Normal 0-130 Comprehensive [facility] Medicine Work Phone: Comment on above: DR SANTOS ORDERED CMP CBCDDR SANKET ORDERED A1C LIPID CMP [place]OR[place] CBCD [facility] [address] [place], [address] Cholesterol in VLDL mass conc 14 mg/dL Normal 5-40 Comprehensive [facility] Medicine Work Phone: Comment on above: DR SANTOS ORDERED CMP CBCDDR SANKET ORDERED A1C LIPID CMP LOR[place] CBCD [facility] [address] [place], [place], [phone] Cholesterol mass conc 150 mg/dL Normal Com prehensive Internal Medicine Work Phone: Comment on above: <200 mg/dL Desirable 200-240 mg/dL Borderline >240 mg/dL High Risk DR SANTOS ORDERED CMP CBCDDR SANKET ORDERED A1C LIPID CMP [place] CBCD [facility] [address] [place], [address] Triglyceride mass conc 68 mg/dL Normal Co [facility] Work Phone: Comment on above: The drugs N-Acetylcy steine and Metamizole may falselydepress this assay.Serum Triglycerides Reference Interval Normal <150 mg/dL Borderline high 150 - 199 mg/dL High 200 - 499 mg/dL Very High > or = 500 mg/dL DR SANTOS ORDERED CMP CBCDDR SANKET ORDERED A1C LIPID CMP LOR[place] CBCD [facility] [address] [place], [address] Lipid Profile 68 mg/dL Normal Comprehensi ve Internal Medicine Work Phone: Comment on above: The drugs N-Acetylcy steine and Metamizole may falselydepress this assay.Serum Triglycerides Reference Interval Normal <150 mg/dL Borderline high 150 - 199 mg/dL High 200 - 499 mg/dL Very High > or = 500 mg/dL DR SANTOS ORDERED CMP CBCDDR SANKET ORDERED A1C LIPID CMP LOR[place] CBCD [facility] [address] [place], [address] Lipid Profile 14 mg/dL Normal 5-40 Comprehensi ve Internal Medicine Work Phone: Comment on above: DR SANTOS ORDERED CMP CBCDDR SANKET ORDERED A1C LIPID CMP LOREN CBCD [facility] [address] [place], [place], [id number] Lipid Profile 79 mg/dL Normal 0-130 Comprehensi ve Internal Medicine Work Phone: Comment on above: DR SANTOS ORDERED CMP CBCDDR SANKET ORDERED A1C LIPID CMP LOREN CBCD [facility] [address] [place], [address] Lipid Profile 57 mg/dL Normal Comprehensi ve Internal Medicine Work Phone: Comment on above: The drugs N-Acetylcy steine and Metamizole may falselydepress this assay. Reference Range HDL <40 mg/dL Low HDL Cholesterol HDL >or= 60 mg/dL High HDL Cholesterol DR SANTOS ORDERED CMP CBCDDR SANKET ORDERED A1C LIPID CMP LOREN CBCD [facility] [address] [place], [address] Lipid Profile 150 mg/dL Normal Comprehensi ve Internal Medicine Work Phone: Comment on above: <200 mg/dL Desirable 200-240 mg/dL Borderline >240 mg/dL High Risk DR SANTOS ORDERED CMP CBCDDR SANKET ORDERED A1C LIPID CMP LOREN CBCD [facility] [address] [place], [place], [id number] MicroalbOrdered By: Remberto garibay on 10-31-2016 Microalb Test not performed Normal [facility] Internal Medicine Work Phone: Comment on above: DR SANTOS ORDERED CMP CBCDDR SANKET ORDERED A1C LIPID CMP LOREN CBCD [facility] [address] [place], [place], [address] Microalb < 5.0 Normal Comprehensive Internal Medicine Work Phone: Comment on above: DR SANTOS ORDERED CMP CBCDDR SANKET ORDERED A1C LIPID CMP LOREN CBCD TSH [facility] [address] [place], [place], [address] Microalb 17.60 mg/dL Normal [facility] Internal Medicine Work Phone: Comment on above: DR SANTOS ORDERED CMP CBCDDR SANKET ORDERED A1C LIPID CMP LOREN CBCD TSH [facility] [address] [place], [address] Thyroid Stim Hormone (TSH)Or dered By: Washerette Machine Operator on 10-31-2016 Thyrotropin Qn 1.18 {uIU/mL} Normal 0.358-3.74 Compreh ensive Internal Medicine Work Phone: Comment on above: DR SANTOS ORDERED CMP CBCDDR SANKET ORDERED A1C LIPID CMP LOREN CBCD TSH [facility] [address] [place], [address] Urinalysis, CompleteOrdered By: Washerette Machine Operator on 10-31-2016 Protein mass conc (U) Negative Normal Com prehensive Internal Medicine Work Phone: Comment on above: DR SANTOS ORDERED CMP CBCDDR SANKET ORDERED A1C LIPID CMP LOREN CBCD TSH UACHow was Urine Obtained? [facility] [address] [place], [address] RBC #/vol (U) 0 SEEN Normal 0-5 Comprehensi ve Internal Medicine Work Phone: Comment on above: DR SANTOS ORDERED CMP CBCDDR SANKET ORDERED A1C LIPID CMP LOREN CBCD TSH UACHow was Urine Obtained? [facility] [address] [place], [address] Urinalysis complete panel - Urine Yellow Normal [facility] Internal Medicine Work Phone: Comment on above: DR SANTOS ORDERED CMP CBCDDR SANKET ORDERED A1C LIPID CMP LOREN CBCD TSH UACHow was Urine Obtained? [facility] [address] [place], [place], [id number] Urinalysis complete panel - Urine Clear Normal [facility] Medicine Work Phone: Comment on above: DR SANTOS ORDERED CMP CBCDDR SANKET ORDERED A1C LIPID CMP LOREN CBCD TSH UACHow was Urine Obtained? CLEAN [facility] [address] [place], [place], [id number] Urinalysis complete panel - Urine Normal Normal [facility] Internal Medicine Work Phone: Comment on above: DR SANTOS ORDERED CMP CBCDDR SANKET ORDERED A1C LIPID CMP LOREN CBCD TSH UACHow was Urine Obtained? CLEAN [facility] [address] [place], [place], [id number] Urinalysis complete panel - Urine Negative Normal [facility] Medicine Work Phone: Comment on above: DR SANTOS ORDERED CMP CBCDDR SANKET ORDERED A1C LIPID CMP LOREN CBCD TSH UACHow was Urine Obtained? [facility] [address] [place], [place], [address] Urinalysis complete panel - Urine 1.010 1 Normal 1.002-1.03 0 [facility] Internal Medicine Work Phone: Comment on above: DR SANTOS ORDERED CMP CBCDDR SANKET ORDERED A1C LIPID CMP LOREN CBCD TSH UACHow was Urine Obtained? [facility] [address] [place], [place], [id number] Urinalysis complete panel - Urine 6.5 1 Normal 5.0 - 8.0 [facility] Medicine Work Phone: Comment on above: DR SANTOS ORDERED CMP CBCDDR SANKET ORDERED A1C LIPID CMP LOREN CBCD TSH UACHow was Urine Obtained? [facility] [address] [place], [place], [address] Urinalysis complete panel - Urine 0 SEEN Normal 0-5 [facility] Internal Medicine Work Phone: Comment on above: DR SANTOS ORDERED CMP CBCDDR SANKET ORDERED A1C LIPID CMP LOREN CBCD TSH UACHow was Urine Obtained? CLEAN [facility] [address] [place], [place], [id number] CBC W/Diff, AutomatedOrdered By: Washerette Machine Operator on 08-01-2016 Absolute Neut 3.3 {X10_3/uL} Normal 2.0-7.7 Compreh ensive Internal Medicine Work Phone: Comment on above: [facility] [address] [place], [address] Basophils/100 WBC (Bld) 0.4 % Normal 0-1 C omprehensive Internal Medicine Work Phone: Comment on above: [facility] [address] [place], [place], [phone] Eosinophils/100 WBC (Bld) 5.7 % Abnormal 0-5 Comprehensive Internal Medicine Work Phone: Comment on above: [facility] [address] [place], [place], [phone] Erythrocyte distribution width Ratio (RBC) 15.2 % Abnormal 11.6-14.6 [facility] Internal Medicine Work Phone: Comment on above: [facility] [address] [place], [place], [address] Hematocrit Volume Fraction (Bld) 41.2 % Normal 40-54 [facility] Internal Medicine Work Phone: Comment on above: [facility] [address] [place], [place], [phone] Hemoglobin mass conc (Bld) 13.0 g/dL Normal 13.0-16.5 [facility] Internal Medicine Work Phone: Comment on above: [facility] [address] [place], [place], [phone] IM GRAN % 0.200 % Normal 0.0-0.9 [facility] Internal Medicine Work Phone: Comment on above: IG% - Immature Granu locytes (promyelocytes, myelocytes andmetamyelocytes) > 1% indicates that a LEFT SHIFT is Present. [facility] [address] [place], [address] Lymphocytes #/vol (Bld) 1.18 {X10_3/ul} Normal 0.83-4. 51 [facility] Internal Medicine Work Phone: Comment on above: [facility] [address] [place], [address] Lymphocytes/100 WBC (Bld) 22.3 % Normal 19-41 [facility] Internal Medicine Work Phone: Comment on above: [facility] [address] [place], [address] MCH Entitic mass (RBC) 28.9 pg Normal 27.0-32.0 [facility] Work Phone: Comment on above: [facility] [address] [place], [address] MCHC mass conc (RBC) 31.6 {g/gl} Abnormal 32-36 Com prehensive Internal Medicine Work Phone: Comment on above: [facility] [address] [place], [address] MCV Entitic volume (RBC) 91.6 fL Normal 80-94 [facility] Internal Medicine Work Phone: Comment on above: [facility] [address] [place], [address] Monocytes/100 WBC (Bld) 8.3 % Normal 0-10 C ompfostoria city hospitalensive Internal Medicine Work Phone: Comment on above: [facility] [address] [place], [address] Neutrophils/100 WBC (Bld) 63.1 % Normal 47-70 [facility] Internal Medicine Work Phone: Comment on above: [facility] [address] [place], [place], [phone] Platelet mean volume Entitic volume (Bld) 9.4 fL Normal 6.2-12.0 Comprehensi Internal Medicine Work Phone: Comment on above: [facility] [address] [place], [address] Platelets #/vol (Bld) 235 10*3/uL Normal 150-450 [facility] services[facility] Internal [facility] Work Phone: Comment on above: [facility] [address] [place], [address] RBC #/vol (Bld) 4.50 {M/mm3} Abnormal 4.6-6.2 Compreh ensive Internal Medicine Work Phone: Comment on above: [facility] [address] [place], [address] RDW SD 50.5 fL Abnormal 35.1-43.9 [facility] Medicine Work Phone: Comment on above: [facility] [address] [place], [address] WBC #/vol (Bld) 5.3 10*3/uL Normal 4.4-11.0 Com[facility]he [facility] Internal Medicine Work Phone: Comment on above: [facility] [address] [place], [place], [address] CBC W/Diff, Automated 5.7 % Abnormal 0-5 Com prehensive Internal Medicine Work Phone: Comment on above: [facility] [address] [place], [place], [address] CBC W/Diff, Automated 0.4 % Normal 0-1 [facility] prehensive Internal Medicine Work Phone: Comment on above: [facility] [address] [place], [place], [phone] CBC W/Diff, Automated 0.200 % Normal 0.0-0.9 [facility] prehensive Internal Medicine Work Phone: Comment on above: IG% - Immature Granu locytes (promyelocytes, myelocytes andmetamyelocytes) > 1% indicates that a LEFT SHIFT is Present. [facility] [address] [place], [place], [address] CBC W/Diff, Automated 3.3 {X10_3/uL} Normal 2.0-7.7 [facility] Internal Medicine Work Phone: Comment on above: [facility] [address] [place], [place], [phone] CBC W/Diff, Automated 1.18 {X10_3/ul} Normal 0.83-4.51 [facility] Internal Medicine Work Phone: Comment on above: [facility] [address] [place], [place], [phone] CBC W/Diff, Automated 8.3 % Normal 0-10 [facility] prehensive Internal Medicine Work Phone: Comment on above: [facility] [address] [place], [address] CBC W/Diff, Automated 22.3 % Normal 19-41 [facility] prehensive Internal Medicine Work Phone: Comment on above: [facility] [address] [place], [address] CBC W/Diff, Automated 63.1 % Normal 47-70 [facility] prehensive Internal Medicine Work Phone: Comment on above: [facility] [address] [place], [address] CBC W/Diff, Automated 9.4 fL Normal 6.2-12.0 [facility] prehensive Internal Medicine Work Phone: Comment on above: [facility] [address] [place], [address] CBC W/Diff, Automated 4.50 {M/mm3} Abnormal 4.6-6.2 [facility] Internal Medicine Work Phone: Comment on above: [facility] [address] [place], [address] CBC W/Diff, Automated 13.0 g/dL Normal 13.0-16.5 Com prehensive Internal Medicine Work Phone: Comment on above: [facility] [address] [place], [address] CBC W/Diff, Automated 41.2 % Normal 40-54 [facility] prehensive Internal Medicine Work Phone: Comment on above: [facility] [address] [place], [address] CBC W/Diff, Automated 91.6 fL Normal 80-94 [facility] prehensive Internal Medicine Work Phone: Comment on above: [facility] [address] [place], [address] CBC W/Diff, Automated 28.9 pg Normal 27.0-32.0 [facility] prehensive Internal Medicine Work Phone: Comment on above: [facility] [address] [place], [address] CBC W/Diff, Automated 31.6 {g/gl} Abnormal 32-36 [facility] Work Phone: Comment on above: [facility] [address] [place], [address] CBC W/Diff, Automated 15.2 % Abnormal 11.6-14.6 [facility] prehensive Internal Medicine Work Phone: Comment on above: [facility] [address] [place], [address] CBC W/Diff, Automated 50.5 fL Abnormal 35.1-43.9 [facility] prehensive Internal Medicine Work Phone: Comment on above: [facility] [address] [place], [place], [address] CBC W/Diff, Automated 235 K/mm3 Normal 150-450 Com prehensive Internal Medicine Work Phone: Comment on above: [facility] [address] [place], [place], [address] CBC W/Diff, Automated 5.3 K/mm3 Normal 4.4-11.0 [facility] prehensive Internal Medicine Work Phone: Comment on above: [facility] [address] [place], [place], [phone] Comprehensive Metabolic Prof ilOrdered By: Washerette Machine Operator on 08-01-2016 Comprehensive metabolic 2000 panel 8.7 mg/dL Normal 8.5-10.1 [facility] Medicine Work Phone: Comment on above: [facility] [address] [place], [place], [phone] Comprehensive metabolic 2000 panel 1.1 {RATIO} Normal 0.9-2.4 [facility] Internal Medicine Work Phone: Comment on above: [facility] [address] [place], [place], [address] Comprehensive metabolic 2000 panel 3.5 g/dL Normal 2.3-3.5 [facility] Internal Medicine Work Phone: Comment on above: [facility] [address] [place], [place], [address] Comprehensive metabolic 2000 panel 3.7 g/dL Normal 3.4-5.0 [facility] Internal Medicine Work Phone: Comment on above: [facility] [address] [place], [place], [address] Comprehensive metabolic 2000 panel 16.4 {RATIO} Normal 10-20 [facility] Internal Medicine Work Phone: Comment on above: [facility] [address] [place], [place], [address] Comprehensive metabolic 2000 panel 110 mL/min Normal [facility] Internal Medicine Work Phone: Comment on above: GFR Calc [facility] [address] [place], [place], [address] Comprehensive metabolic 2000 panel 0.91 mg/dL Normal 0.70-1.30 [facility] Internal Medicine Work Phone: Comment on above: The validity of the calculated GFR AND GFRAA in patients over70 years has not been determined. Clinical correlation isessential. [facility] [address] [place], [address] Comprehensive metabolic 2000 panel 7.2 g/dL Normal 6.4-8.2 [facility] Internal Medicine Work Phone: Comment on above: [facility] [address] [place], [place], [address] Comprehensive metabolic 2000 panel 95 mg/dL Normal 70-110 [facility] Internal Medicine Work Phone: Comment on above: [facility] [address] [place], [place], [address] Comprehensive metabolic 2000 panel 103 mmol/L Normal 98-107 [facility] Internal Medicine Work Phone: Comment on above: [facility] [address] [place], [place], [address] Comprehensive metabolic 2000 panel 31.0 mmol/L Normal 21.0-32.0 [facility] Internal Medicine Work Phone: Comment on above: [facility] [address] [place], [place], [address] Comprehensive metabolic 2000 panel 6 1 Normal 5-15 [facility] Internal Medicine Work Phone: Comment on above: [facility] [address] [place], [place], [phone] Comprehensive metabolic 2000 panel 91 mL/min Normal [facility] Internal Medicine Work Phone: Comment on above: Non- GFR Calc [facility] [address] [place], [place], [address] Comprehensive metabolic 2000 panel 15 mg/dL Normal 7-18 [facility] Internal Medicine Work Phone: Comment on above: [facility] [address] [place], [place], [address] Comprehensive metabolic 2000 panel 140 mmol/L Normal 136-145 [facility] Internal Medicine Work Phone: Comment on above: [facility] [address] [place], [address] Comprehensive metabolic 2000 panel 0.40 mg/dL Normal 0.20-1.00 [facility] Internal Medicine Work Phone: Comment on above: [facility] [address] [place], [place], [phone] Comprehensive metabolic 2000 panel 31 U/L Normal 12-78 [facility] Internal Medicine Work Phone: Comment on above: [facility] [address] [place], [address] Comprehensive metabolic 2000 panel 65 U/L Normal 45-117 [facility] Internal Medicine Work Phone: Comment on above: [facility] [address] [place], [place], [address] Comprehensive metabolic 2000 panel 4.1 mmol/L Normal 3.5-5.1 [facility] Internal Medicine Work Phone: Comment on above: [facility] [address] [place], [address] Comprehensive metabolic 2000 panel 19 U/L Normal 15-37 [facility] Internal Medicine Work Phone: Comment on above: [facility] [address] [place], [place], [address] Hemoglobin D5pMyoflhg By: [facility] Gm on 08-01-2016 Hemoglobin A1c/Hemoglobin.total mass fraction (Bld) 6.1 % Normal 4.2-6.3 Comprehensiv e Internal Medicine Work Phone: Comment on above: [facility] [address] [place], [place], [address] Lipid ProfileOrdered By: Liat tem Gm on 08-01-2016 Cholesterol in HDL mass conc 53 mg/dL Normal [facility] Medicine Work Phone: Comment on above: The drugs N-Acetylcy steine and Metamizole may falsely deressthis assay. Reference Range HDL <40 mg/dL Low HDL Cholesterol HDL >or= 60 mg/dL High HDL Cholesterol [facility] [address] [place], [place], [address] Cholesterol in LDL mass conc 92 mg/dL Normal 0-130 [facility] Internal Medicine Work Phone: Comment on above: [facility] [address] [place], [place], [address] Cholesterol in VLDL mass conc 12 mg/dL Normal 5-40 [facility] Internal Medicine Work Phone: Comment on above: [facility] [address] [place], [place], [phone] Cholesterol mass conc 157 mg/dL Normal Com prehensive Internal Medicine Work Phone: Comment on above: <200 mg/dL Desirable 200-240 mg/dL Borderline >240 mg/dL High Risk [facility] [address] [place], [place], [address] Triglyceride mass conc 61 mg/dL Normal Co mprehensive Internal Medicine Work Phone: Comment on above: The drugs N-Acetylcy steine and Metamizole may falsely deressthis assay.Serum Triglycerides Reference Interval Normal <150 mg/dL Borderline high 150 - 199 mg/dL High 200 - 499 mg/dL Very High > or = 500 mg/dL [facility] [address] [place], [place], [address] Lipid Profile 12 mg/dL Normal 5-40 Comprehensi Internal Medicine Work Phone: Comment on above: [facility] [address] [place], [place], [address] Lipid Profile 92 mg/dL Normal 0-130 Comprehensi ve Internal Medicine Work Phone: Comment on above: [facility] [address] [place], [place], [address] Lipid Profile 53 mg/dL Normal Comprehensi ve Internal Medicine Work Phone: Comment on above: The drugs N-Acetylcy steine and Metamizole may falsely deressthis assay. Reference Range HDL <40 mg/dL Low HDL Cholesterol HDL >or= 60 mg/dL High HDL Cholesterol [facility] [address] [place], [place], [address] Lipid Profile 61 mg/dL Normal Comprehensi ve Internal Medicine Work Phone: Comment on above: The drugs N-Acetylcy steine and Metamizole may falsely deressthis assay.Serum Triglycerides Reference Interval Normal <150 mg/dL Borderline high 150 - 199 mg/dL High 200 - 499 mg/dL Very High > or = 500 mg/dL [facility] [address] [place], [place], [address] Lipid Profile 157 mg/dL Normal Comprehensi ve Internal Medicine Work Phone: Comment on above: <200 mg/dL Desirable 200-240 mg/dL Borderline >240 mg/dL High Risk [facility] [address] [place], [place], [address] MicroalbOrdered By: Remberto garibay on 08-01-2016 Microalb Test not performed Normal [facility] Internal Medicine Work Phone: Comment on above: [facility] [address] [place], [place], [address] Microalb < 5.0 Normal [facility] Medicine Work Phone: Comment on above: [facility] [address] [place], [place], [address] Microalb 76.30 mg/dL Normal [facility] Medicine Work Phone: Comment on above: [facility] [address] [place], [address] Thyroid Stim Hormone (TSH)Or dered By: Washerette Machine Operator on 08-01-2016 Thyrotropin Qn 1.08 {uIU/mL} Normal 0.358-3.74 Compreh ensive Internal Medicine Work Phone: Comment on above: [facility] [address] [place], [phone] Urinalysis, CompleteOrdered By: Washerette Machine Operator on 08-01-2016 Protein mass conc (U) Negative Normal Com prehensive Internal Medicine Work Phone: Comment on above: How was Urine Obtain ed? [facility] [address] [place], [phone] RBC #/vol (U) 0 SEEN Normal 0-5 Comprehensi ve Internal Medicine Work Phone: Comment on above: How was Urine Obtain ed? [facility] [address] [place], [place], [address] Urinalysis complete panel - Urine 0 SEEN Normal [facility] Internal Medicine Work Phone: Comment on above: How was Urine Obtain ed? [facility] [address] [place], [address] Urinalysis complete panel - Urine Yellow Normal [facility] Internal Medicine Work Phone: Comment on above: How was Urine Obtain ed? [facility] [address] [place], [address] Urinalysis complete panel - Urine Normal Normal [facility] Internal Medicine Work Phone: Comment on above: How was Urine Obtain ed? [facility] [address] [place], [phone] Urinalysis complete panel - Urine Negative Normal [facility] Internal Medicine Work Phone: Comment on above: How was Urine Obtain ed? [facility] [address] [place], [phone] Urinalysis complete panel - Urine Clear Normal [facility] Internal Medicine Work Phone: Comment on above: How was Urine Obtain ed? [facility] [address] [place], [address] Urinalysis complete panel - Urine 1.005 1 Normal 1.002-1.03 0 [facility] Internal Medicine Work Phone: Comment on above: How was Urine Obtain ed? [facility] [address] [place], [address] Urinalysis complete panel - Urine 7.0 1 Normal 5.0 - 8.0 [facility] Medicine Work Phone: Comment on above: How was Urine Obtain ed? [facility] [address] [place], [phone] Vitamin D,25 HydroxyOrdered By: Washerette Machine Operator on 08-01-2016 Vitamin D,25 Hydroxy 44.6 ng/mL Normal Comp rehensive Internal Medicine Work Phone: Comment on above: Vitamin D 25(OH) Sta tus Range Deficiency <20 ng/mL (50nmol/L) Insuffciency 20 - 30 ng/mL (50 - 75 nmol/L) Sufficiency 30 - 100 ng/mL (75 - 250 nmol/L) Toxicity >100 ng/mL (>250 nmol/L) [facility] [address] [place], [id number] CBC W/Diff, AutomatedOrdered By: Washerette Machine Operator on 05-09-2016 Absolute Neut 4.5 {X10_3/uL} Normal 2.0-7.7 Compreh ensive Internal Medicine Work Phone: Comment on above: [facility] [address] [place], [place], [phone] Basophils/100 WBC (Bld) 0.3 % Normal 0-1 C omprehensive Internal Medicine Work Phone: Comment on above: [facility] [address] [place], [address] Eosinophils/100 WBC (Bld) 4.3 % Normal 0-5 [facility] Internal Medicine Work Phone: Comment on above: [facility] [address] [place], [address] Erythrocyte distribution width Ratio (RBC) 15.3 % Abnormal 11.6-14.6 [facility] Internal Medicine Work Phone: Comment on above: [facility] [address] [place], [address] Hematocrit Volume Fraction (Bld) 42.3 % Normal 40-54 [facility] Internal Medicine Work Phone: Comment on above: [facility] [address] [place], [address] Hemoglobin mass conc (Bld) 13.3 g/dL Normal 13.0-16.5 [facility] Internal Medicine Work Phone: Comment on above: [facility] [address] [place], [address] IM GRAN % 0.400 % Normal 0.0-0.9 Comprehensive Internal Medicine Work Phone: Comment on above: IG% - Immature Granu locytes (promyelocytes, myelocytes andmetamyelocytes) > 1% indicates that a LEFT SHIFT is Present. [facility] [address] [place], [address] Lymphocytes #/vol (Bld) 1.73 {X10_3/ul} Normal 0.83-4. 51 [facility] Work Phone: Comment on above: [facility] [address] [place], [address] Lymphocytes/100 WBC (Bld) 23.9 % Normal 19-41 [facility] Work Phone: Comment on above: [facility] [address] [place], [address] MCH Entitic mass (RBC) 29.2 pg Normal 27.0-32.0 Co mprehensive Internal Medicine Work Phone: Comment on above: [facility] [address] [place], [address] MCHC mass conc (RBC) 31.4 {g/gl} Abnormal 32-36 Com prehensive Internal Medicine Work Phone: Comment on above: [facility] [address] [place], [address] MCV Entitic volume (RBC) 92.8 fL Normal 80-94 [facility] Work Phone: Comment on above: [facility] [address] [place], [address] Monocytes/100 WBC (Bld) 8.7 % Normal 0-10 C omprehensive Internal Medicine Work Phone: Comment on above: [facility] [address] [place], [address] Neutrophils/100 WBC (Bld) 62.4 % Normal 47-70 [facility] Work Phone: Comment on above: [facility] [address] [place], [address] Platelet mean volume Entitic volume (Bld) 10.0 fL Normal 6.2-12.0 Comprehensi Internal Medicine Work Phone: Comment on above: [facility] [address] [place], [address] Platelets #/vol (Bld) 207 10*3/uL Normal 150-450 [facility] Work Phone: Comment on above: [facility] [address] [place], [place], [phone] RBC #/vol (Bld) 4.56 {M/mm3} Abnormal 4.6-6.2 Compreh ensive Internal Medicine Work Phone: Comment on above: [facility] [address] [place], [place], [phone] RDW SD 49.8 fL Abnormal 35.1-43.9 [facility] Work Phone: Comment on above: [facility] [address] [place], [place], [phone] WBC #/vol (Bld) 7.3 10*3/uL Normal 4.4-11.0 Comprehe nsive Internal Medicine Work Phone: Comment on above: [facility] [address] [place], [place], [phone] CBC W/Diff, Automated 31.4 {g/gl} Abnormal 32-36 [facility] Work Phone: Comment on above: [facility] [address] [place], [address] CBC W/Diff, Automated 1.73 {X10_3/ul} Normal 0.83-4.51 [facility] Work Phone: Comment on above: [facility] [address] [place], [place], [phone] CBC W/Diff, Automated 4.3 % Normal 0-5 Com prehensive Internal Medicine Work Phone: Comment on above: [facility] [address] [place], [address] CBC W/Diff, Automated 8.7 % Normal 0-10 [facility] prehensive Internal Medicine Work Phone: Comment on above: [facility] [address] [place], [place], [phone] CBC W/Diff, Automated 23.9 % Normal 19-41 [facility] prehensive Internal Medicine Work Phone: Comment on above: [facility] [address] [place], [address] CBC W/Diff, Automated 62.4 % Normal 47-70 [facility] prehensive Internal Medicine Work Phone: Comment on above: [facility] [address] [place], [address] CBC W/Diff, Automated 10.0 fL Normal 6.2-12.0 [facility] prehensive Internal Medicine Work Phone: Comment on above: [facility] [address] [place], [address] CBC W/Diff, Automated 207 K/mm3 Normal 150-450 [facility] prehensive Internal Medicine Work Phone: Comment on above: [facility] [address] [place], [address] CBC W/Diff, Automated 49.8 fL Abnormal 35.1-43.9 [facility] prehensive Internal Medicine Work Phone: Comment on above: [facility] [address] [place], [address] CBC W/Diff, Automated 15.3 % Abnormal 11.6-14.6 [facility] prehensive Internal Medicine Work Phone: Comment on above: [facility] [address] [place], [address] CBC W/Diff, Automated 0.3 % Normal 0-1 [facility] prehensive Internal Medicine Work Phone: Comment on above: [facility] [address] [place], [address] CBC W/Diff, Automated 29.2 pg Normal 27.0-32.0 [facility] prehensive Internal Medicine Work Phone: Comment on above: [facility] [address] [place], [address] CBC W/Diff, Automated 92.8 fL Normal 80-94 [facility] prehensive Internal Medicine Work Phone: Comment on above: [facility] [address] [place], [address] CBC W/Diff, Automated 42.3 % Normal 40-54 [facility] prehensive Internal Medicine Work Phone: Comment on above: [facility] [address] [place], [address] CBC W/Diff, Automated 13.3 g/dL Normal 13.0-16.5 [facility] prehensive Internal Medicine Work Phone: Comment on above: [place] [address] [place], [address] CBC W/Diff, Automated 4.56 {M/mm3} Abnormal 4.6-6.2 [facility] Work Phone: Comment on above: [place] [address] [place], [phone] CBC W/Diff, Automated 7.3 K/mm3 Normal 4.4-11.0 [facility] prehensive Internal Medicine Work Phone: Comment on above: [place] [address] [place], [address] CBC W/Diff, Automated 0.400 % Normal 0.0-0.9 [facility] prehensive Internal Medicine Work Phone: Comment on above: IG% - Immature Granu locytes (promyelocytes, myelocytes andmetamyelocytes) > 1% indicates that a LEFT SHIFT is Present. [place] [address] [place], [address] CBC W/Diff, Automated 4.5 {X10_3/uL} Normal 2.0-7.7 [facility] Internal Medicine Work Phone: Comment on above: [place] [address] [place], [place], [address] [facility] Metabolic Prof ilOrdered By: Washerette Machine Operator on 05-09-2016 Comprehensive metabolic 2000 panel 0.20 mg/dL Normal 0.20-1.00 [facility] Work Phone: Comment on above: [facility] [address] [place], [place], [address] Comprehensive metabolic 2000 panel 3.7 g/dL Normal 3.4-5.0 [facility] Work Phone: Comment on above: [facility] [address] [place], [place], [address] Comprehensive metabolic 2000 panel 0.90 mg/dL Normal 0.70-1.30 [facility] Work Phone: Comment on above: The validity of the calculated GFR AND GFRAA in patients over70 years has not been determined. Clinical correlation isessential. [facility] [address] [place], [place], [address] Comprehensive metabolic 2000 panel 6 1 Normal 5-15 [facility] Work Phone: Comment on above: [facility] [address] [place], [place], [address] Comprehensive metabolic 2000 panel 16 mg/dL Normal 7-18 [facility] Work Phone: Comment on above: [facility] [address] [place], [place], [address] Comprehensive metabolic 2000 panel 30.0 mmol/L Normal 21.0-32.0 [facility] Work Phone: Comment on above: [facility] [address] [place], [place], [address] Comprehensive metabolic 2000 panel 106 mmol/L Normal 98-107 [facility] Work Phone: Comment on above: [facility] [address] [place], [place], [address] Comprehensive metabolic 2000 panel 93 mL/min Normal [facility] Work Phone: Comment on above: Non- GFR Calc [facility] [address] [place], [place], [address] Comprehensive metabolic 2000 panel 4.0 mmol/L Normal 3.5-5.1 [facility] Work Phone: Comment on above: [facility] [address] [place], [address] Comprehensive metabolic 2000 panel 142 mmol/L Normal 136-145 [facility] Work Phone: Comment on above: [facility] [address] [place], [place], [phone] Comprehensive metabolic 2000 panel 111 mg/dL Abnormal 70-110 [facility] Work Phone: Comment on above: Fasting Glucose resu lt from 110 to <126 mg/dLsuggests IMPAIRED HOMEOSTASIS per A.D.A. criteria. [facility] [address] [place], [place], [address] Comprehensive metabolic 2000 panel 29 U/L Normal 12-78 [facility] Work Phone: Comment on above: [facility] [address] [place], [place], [address] Comprehensive metabolic 2000 panel 72 U/L Normal 45-117 [facility] Work Phone: Comment on above: [facility] [address] [place], [address] Comprehensive metabolic 2000 panel 15 U/L Normal 15-37 [facility] Work Phone: Comment on above: [facility] [address] [place], [place], [address] Comprehensive metabolic 2000 panel 8.5 mg/dL Normal 8.5-10.1 [facility] Work Phone: Comment on above: [facility] [address] [place], [place], [address] Comprehensive metabolic 2000 panel 1.1 {RATIO} Normal 0.9-2.4 [facility] Work Phone: Comment on above: [facility] [address] [place], [place], [phone] Comprehensive metabolic 2000 panel 112 mL/min Normal [facility] Work Phone: Comment on above: GFR Calc [facility] [address] [place], [place], [phone] Comprehensive metabolic 2000 panel 17.9 {RATIO} Normal 10-20 [facility] Work Phone: Comment on above: [facility] [address] [place], [place], [phone] Comprehensive metabolic 2000 panel 3.3 g/dL Normal 2.3-3.5 [facility] Work Phone: Comment on above: [facility] [address] [place], [place], [address] Comprehensive metabolic 2000 panel 7.0 g/dL Normal 6.4-8.2 [facility] Work Phone: Comment on above: [facility] [address] [place], [place], [phone] Gastric BiopsyOrdered By: Blas stem Gm on 04-26-2016 Gastric Biopsy See Note Normal Comprehens nik Internal Medicine Work Phone: Comment on above: Patient: WILLA MORROW R : 1960 (55/M) Acct Num: [id number] Phys: Long Colmenares Unit Num: [id number] Loc: EN Specimen: [id number] Received: 04/26/16847 Spec Type: Gastric Bx TISSUES TISSUES: COMMENT The results of immunohistochemistry for Helicobacter pylori will be reported separately ([id number]). GROSS DESCRIPTION Received is one container labeled with the patient's name and designated antrumbody biopsy. The specimen consists of multiple irregular fragments of light andrade soft tissue that in aggregate measure 0.5 x 0.3 x 0.1 cm. The specimen is totally submitted in one cassette. / TUYET:xochitl 04/26/16 TC:3 CPT: 14434 HEADER OPERATION: EGD PRE-OP DIAGNOSIS: Epigastric pain TISSUE SUBMITTED: Antrum body biopsy, rule out gastritis MICROSCOPIC DESCRIPTION Slides are reviewed. The specimen shows fragments of gastric mucosa with chronic inflammatory cell infiltrates in the lamina propria consisting of lymphocytes and plasma cells, consistent with mild chronic gastritis. MICROSCOPIC DIAGNOSIS Antrum body, biopsy: Mild gastritis. SJ:xochitl 04/27/16 Signed Cy Rdz 04/27/16 [facility] [address] [place] [address], [address] IMMUNOHISTOCHEMISTRYOrdered By: Washerette Machine Operator on 04-26-2016 IMMUNOHISTOCHEMISTRY See Note Normal Comp rehensive Internal Medicine Work Phone: Comment on above: Patient: WILLA MORROW : 1960 (55/M) Acct Num: [id number] Phys: Long Colmenares Unit Num: [id number] Loc: EN Specimen: [id number] Received: 04/27/161001 Spec Type: IMMUNO TISSUES TISSUES: SPECIMEN INFORMATION: Tissue Source: Antrum body biopsy Clinical Info: Epigastric pain Specimen Number: [id number] CPT code: 26018 METHODOLOGY: Deparaffinized sections of prefer/formalin-fixed tissue or PAP/DQ stained slides are incubated with monoclonal/polyclonal antibodies/oligonucleotide probes. Localization is made via biotin free immunoperoxidase method. Appropriate controls are performed and reacted as expected. Results on target cell population are indicated in the following table: RESULTS: ANTIBODY / CLONE RESULT H Pylori (polyclonal) negative These tests were developed and their performance characteristics determined by [facility]. They may not have been cleared or approved by the U.S. Food and Drug Administration. The FDA has determined that such clearance or approval is not necessary. INTERPRETATION: Antrum body biopsy: Negative for Helicobacter pylori organisms. TUYET:xochitl 04/30/16 PHYSICIAN AND INSTITUTION [address] [address] Signed Cy Rdz 04/30/16 [facility] [address] [place], [place], [phone] Hemoglobin W5fWntghyh By: Sy stem Gm on 03-14-2016 Hemoglobin A1c/Hemoglobin.total mass fraction (Bld) 5.8 % Normal 4.2-6.3 Comprehensiv e Internal Medicine Work Phone: Comment on above: [facility] [address] [place], [place], [phone] CBC W/Diff, AutomatedOrdered By: Washerette Machine Operator on 01-14-2016 Absolute Neut 3.6 {X10_3/uL} Normal 2.0-7.7 Compreh ensive Internal Medicine Work Phone: Comment on above: [facility] [address] [place], [place], [phone] Basophils/100 WBC (Bld) 0.2 % Normal 0-1 C omprehensive Internal Medicine Work Phone: Comment on above: [facility] [address] [place], [place], [phone] Eosinophils/100 WBC (Bld) 5.1 % Abnormal 0-5 [facility] Work Phone: Comment on above: [facility] [address] [place], [place], [phone] Erythrocyte distribution width Ratio (RBC) 14.9 % Abnormal 11.6-14.6 [facility] Work Phone: Comment on above: [facility] [address] [place], [place], [address] Hematocrit Volume Fraction (Bld) 39.7 % Abnormal 40-54 [facility] Work Phone: Comment on above: [facility] [address] [place], [place], [phone] Hemoglobin mass conc (Bld) 12.8 g/dL Abnormal 13.0-16.5 [facility] Work Phone: Comment on above: [facility] [address] [place], [address] IM GRAN % 0.300 % Normal 0.0-0.9 [facility] Work Phone: Comment on above: IG% - Immature Granu locytes (promyelocytes, myelocytes andmetamyelocytes) > 1% indicates that a LEFT SHIFT is Present. [facility] [address] [place], [place], [phone] Lymphocytes #/vol (Bld) 1.42 {X10_3/ul} Normal 0.83-4. 51 [facility] Work Phone: Comment on above: [facility] [address] [place], [address] Lymphocytes/100 WBC (Bld) 23.6 % Normal 19-41 [facility] Work Phone: Comment on above: [facility] [address] [place], [address] MCH Entitic mass (RBC) 29.8 pg Normal 27.0-32.0 [facility] Work Phone: Comment on above: [facility] [address] [place], [address] MCHC mass conc (RBC) 32.2 {g/gl} Normal 32-36 [facility] prehensive Internal Medicine Work Phone: Comment on above: [facility] [address] [place], [address] MCV Entitic volume (RBC) 92.3 fL Normal 80-94 [facility] Work Phone: Comment on above: [facility] [address] [place], [address] Monocytes/100 WBC (Bld) 10.3 % Abnormal 0-10 C omprehensive Internal Medicine Work Phone: Comment on above: [facility] [address] [place], [address] Neutrophils/100 WBC (Bld) 60.5 % Normal 47-70 [facility] Work Phone: Comment on above: [facility] [address] [place], [address] Platelet mean volume Entitic volume (Bld) 9.7 fL Normal 6.2-12.0 Comprehensi Internal Medicine Work Phone: Comment on above: [facility] [address] [place], [address] Platelets #/vol (Bld) 244 10*3/uL Normal 150-450 [facility] Work Phone: Comment on above: [facility] [address] [place], [address] RBC #/vol (Bld) 4.30 {M/mm3} Abnormal 4.6-6.2 Compreh ensive Internal Medicine Work Phone: Comment on above: [facility] [address] [place], [address] RDW SD 48.8 fL Abnormal 35.1-43.9 [facility] Work Phone: Comment on above: [facility] [address] [place], [address] WBC #/vol (Bld) 6.0 10*3/uL Normal 4.4-11.0 Comprehe nsive Internal Medicine Work Phone: Comment on above: [facility] [address] [place], [address] CBC W/Diff, Automated 5.1 % Abnormal 0-5 Com prehensive Internal Medicine Work Phone: Comment on above: [facility] [address] [place], [place], [phone] CBC W/Diff, Automated 0.300 % Normal 0.0-0.9 Com prehensive Internal Medicine Work Phone: Comment on above: IG% - Immature Granu locytes (promyelocytes, myelocytes andmetamyelocytes) > 1% indicates that a LEFT SHIFT is Present. [facility] [address] [place], [address] CBC W/Diff, Automated 10.3 % Abnormal 0-10 Com prehensive Internal Medicine Work Phone: Comment on above: [facility] [address] [place], [address] CBC W/Diff, Automated 23.6 % Normal 19-41 Com prehensive Internal Medicine Work Phone: Comment on above: [facility] [address] [place], [place], [phone] CBC W/Diff, Automated 60.5 % Normal 47-70 Com prehensive Internal Medicine Work Phone: Comment on above: [facility] [address] [place], [address] CBC W/Diff, Automated 9.7 fL Normal 6.2-12.0 Com prehensive Internal Medicine Work Phone: Comment on above: [facility] [address] [place], [address] CBC W/Diff, Automated 244 K/mm3 Normal 150-450 Com prehensive Internal Medicine Work Phone: Comment on above: [facility] [address] [place], [address] CBC W/Diff, Automated 48.8 fL Abnormal 35.1-43.9 Com prehensive Internal Medicine Work Phone: Comment on above: [facility] [address] [place], [place], [address] CBC W/Diff, Automated 14.9 % Abnormal 11.6-14.6 [facility] prehensive Internal Medicine Work Phone: Comment on above: [facility] [address] [place], [place], [address] CBC W/Diff, Automated 32.2 {g/gl} Normal 32-36 [facility] Work Phone: Comment on above: [facility] [address] [place], [place], [address] CBC W/Diff, Automated 29.8 pg Normal 27.0-32.0 [facility] Work Phone: Comment on above: [facility] [address] [place], [place], [address] CBC W/Diff, Automated 92.3 fL Normal 80-94 [facility] prehensive Internal Medicine Work Phone: Comment on above: [facility] [address] [place], [place], [phone] CBC W/Diff, Automated 39.7 % Abnormal 40-54 [facility] Work Phone: Comment on above: [facility] [address] [place], [place], [address] CBC W/Diff, Automated 12.8 g/dL Abnormal 13.0-16.5 [facility] Work Phone: Comment on above: [facility] [address] [place], [place], [address] CBC W/Diff, Automated 4.30 {M/mm3} Abnormal 4.6-6.2 [facility] Internal Medicine Work Phone: Comment on above: [facility] [address] [place], [place], [address] CBC W/Diff, Automated 6.0 K/mm3 Normal 4.4-11.0 [facility] prehensive Internal Medicine Work Phone: Comment on above: [facility] [address] [place], [place], [address] CBC W/Diff, Automated 1.42 {X10_3/ul} Normal 0.83-4.51 [facility] Work Phone: Comment on above: [facility] [address] [place], [place], [address] CBC W/Diff, Automated 3.6 {X10_3/uL} Normal 2.0-7.7 [facility] Work Phone: Comment on above: [facility] [address] [place], [place], [address] CBC W/Diff, Automated 0.2 % Normal 0-1 [facility] prehensive Internal Medicine Work Phone: Comment on above: [facility] [address] [place], [place], [phone] Comprehensive Metabolic Prof ilOrdered By: Washerette Machine Operator on 01-14-2016 Comprehensive metabolic 2000 panel 6.9 g/dL Normal 6.4-8.2 [facility] Work Phone: Comment on above: [facility] [address] [place], [place], [address] Comprehensive metabolic 2000 panel 1.2 {RATIO} Normal 0.9-2.4 [facility] Work Phone: Comment on above: [facility] [address] [place], [place], [address] Comprehensive metabolic 2000 panel 99 mg/dL Normal 70-110 [facility] Medicine Work Phone: Comment on above: [facility] [address] [place], [place], [address] Comprehensive metabolic 2000 panel 3.1 g/dL Normal 2.3-3.5 [facility] Work Phone: Comment on above: [facility] [address] [place], [place], [phone] Comprehensive metabolic 2000 panel 3.8 g/dL Normal 3.4-5.0 [facility] Work Phone: Comment on above: [facility] [address] [place], [place], [address] Comprehensive metabolic 2000 panel 6 1 Normal 5-15 [facility] Medicine Work Phone: Comment on above: [facility] [address] [place], [place], [address] Comprehensive metabolic 2000 panel 0.87 mg/dL Normal 0.70-1.30 [facility] Medicine Work Phone: Comment on above: The validity of the calculated GFR AND GFRAA in patients over70 years has not been determined. Clinical correlation isessential. [facility] [address] [place], [place], [phone] Comprehensive metabolic 2000 panel 96 mL/min Normal Comprehensive [facility] Medicine Work Phone: Comment on above: Non- GFR Calc [facility] [address] [place], [place], [phone] Comprehensive metabolic 2000 panel 19.5 {RATIO} Normal 10-20 [facility] Work Phone: Comment on above: [facility] [address] [place], [place], [address] Comprehensive metabolic 2000 panel 30.0 mmol/L Normal 21.0-32.0 [facility] Medicine Work Phone: Comment on above: [facility] [address] [place], [place], [address] Comprehensive metabolic 2000 panel 106 mmol/L Normal 98-107 [facility] Internal Medicine Work Phone: Comment on above: [facility] [address] [place], [place], [address] Comprehensive metabolic 2000 panel 4.2 mmol/L Normal 3.5-5.1 [facility] Medicine Work Phone: Comment on above: [facility] spital [address] [place], [place], [address] Comprehensive metabolic 2000 panel 142 mmol/L Normal 136-145 Comprehensive Internal Medicine Work Phone: Comment on above: [facility] sp[facility] [address] [place], [address] Comprehensive metabolic 2000 panel 0.40 mg/dL Normal 0.20-1.00 [facility] Medicine Work Phone: Comment on above: [facility] spital [address] [place], [place], [address] Comprehensive metabolic 2000 panel 31 U/L Normal 12-78 [facility] Work Phone: Comment on above: [facility] [address] [place], [address] Comprehensive metabolic 2000 panel 62 U/L Normal 45-117 [facility] Medicine Work Phone: Comment on above: [facility] [address] [place], [address] Comprehensive metabolic 2000 panel 116 mL/min Normal Comprehensive Internal Medicine Work Phone: Comment on above: [facility] [address] [place], [address] Comprehensive metabolic 2000 panel 23 U/L Normal 15-37 Comprehensive Internal Medicine Work Phone: Comment on above: [facility] spital [address] [place], [address] Comprehensive metabolic 2000 panel 8.5 mg/dL Normal 8.5-10.1 Comprehensive Internal Medicine Work Phone: Comment on above: [facility] spital [address] [place], [address] Comprehensive metabolic 2000 panel 17 mg/dL Normal 7-18 Comprehensive Internal Medicine Work Phone: Comment on above: [facility] [address] [place], [address] Hemoglobin J4sGwjmcki By: Sy stem Gm on 11-23-2015 Hemoglobin A1c/Hemoglobin.total mass fraction (Bld) 5.9 % Normal 4.2-6.3 Comprehensiv e Internal Medicine Work Phone: Comment on above: [facility] [address] [place], [address] CBC W/Diff, AutomatedOrdered By: Washerette Machine Operator on 11-05-2015 Absolute Neut 5.4 {X10_3/uL} Normal 2.0-7.7 Compreh ensive Internal Medicine Work Phone: Comment on above: DR SANTOS ORDERED CMP CBCDDR SANKET ORDERED LIPID TSH CBCD [facility] [address] [place], [address] Basophils/100 WBC (Bld) 0.4 % Normal 0-1 C omprehensive Internal Medicine Work Phone: Comment on above: DR SANTOS ORDERED CMP CBCDDR SANKET ORDERED LIPID TSH CBCD [facility] [address] [place], [phone] Eosinophils/100 WBC (Bld) 5.9 % Abnormal 0-5 Comprehensive Internal Medicine Work Phone: Comment on above: DR SANTOS ORDERED CMP CBCDDR SANKET ORDERED LIPID TSH CBCD [facility] [address] [place], [address] Erythrocyte distribution width Ratio (RBC) 15.0 % Abnormal 11.6-14.6 Comprehensive Internal Medicine Work Phone: Comment on above: DR SANTSO ORDERED CMP CBCDDR SANKET ORDERED LIPID TSH CBCD [facility] [address] [place], [address] Hematocrit Volume Fraction (Bld) 40.2 % Normal 40-54 Comprehensive Internal Medicine Work Phone: Comment on above: DR SANTOS ORDERED CMP CBCDDR SANKET ORDERED LIPID TSH CBCD [facility] [address] [place], [place], [id number] Hemoglobin mass conc (Bld) 12.9 g/dL Abnormal 13.0-16.5 Comprehensive [facility] Medicine Work Phone: Comment on above: DR SANTOS ORDERED CMP CBCDDR SANKET ORDERED LIPID TSH CBCD [facility] [address] [place], [address] IM GRAN % 0.300 % Normal 0.0-0.9 Comprehensive Internal Medicine Work Phone: Comment on above: IG% - Immature Granu locytes (promyelocytes, myelocytes andmetamyelocytes) > 1% indicates that a LEFT SHIFT is Present. DR SANTOS ORDERED CMP CBCDDR SANKET ORDERED LIPID TSH CBCD [facility] [address] [place], [address] Lymphocytes #/vol (Bld) 1.32 {X10_3/ul} Normal 0.83-4. 51 Comprehensive Internal Medicine Work Phone: Comment on above: DR SANTOS ORDERED CMP CBCDDR SANKET ORDERED LIPID TSH CBCD [facility] [address] [place], [address] Lymphocytes/100 WBC (Bld) 16.8 % Abnormal 19-41 Comprehensive [facility] Medicine Work Phone: Comment on above: DR SANTOS ORDERED CMP CBCDDR SANKET ORDERED LIPID TSH CBCD [facility] [address] [place], [address] MCH Entitic mass (RBC) 30.1 pg Normal 27.0-32.0 [facility] Internal Medicine Work Phone: Comment on above: DR SANTOS ORDERED CMP CBCDDR SANKET ORDERED LIPID TSH CBCD [facility] [address] [place], [address] MCHC mass conc (RBC) 32.1 {g/gl} Normal 32-36 Com prehensive Internal Medicine Work Phone: Comment on above: DR SANTOS ORDERED CMP CBCDDR SANKET ORDERED LIPID TSH CBCD [facility] [address] [place], [address] MCV Entitic volume (RBC) 93.7 fL Normal 80-94 Comprehensive Internal Medicine Work Phone: Comment on above: DR SANTOS ORDERED CMP CBCDDR SANKET ORDERED LIPID TSH CBCD [facility] [address] [place], [address] Monocytes/100 WBC (Bld) 8.3 % Normal 0-10 C [facility] Work Phone: Comment on above: DR SANTOS ORDERED CMP CBCDDR SANKET ORDERED LIPID TSH CBCD [facility] [address] [place], [address] Neutrophils/100 WBC (Bld) 68.3 % Normal 47-70 Comprehensive Internal Medicine Work Phone: Comment on above: DR SANTOS ORDERED CMP CBCDDR SANKET ORDERED LIPID TSH CBCD [facility] [address] [place], [address] Platelet mean volume Entitic volume (Bld) 9.5 fL Normal 6.2-12.0 Comprehensi Internal Medicine Work Phone: Comment on above: DR SANTOS ORDERED CMP CBCDDR SANKET ORDERED LIPID TSH CBCD [facility] [address] [place], [address] Platelets #/vol (Bld) 252 10*3/uL Normal 150-450 [facility] Work Phone: Comment on above: DR SANTOS ORDERED CMP CBCDDR SANKET ORDERED LIPID TSH CBCD [facility] [address] [place], [address] RBC #/vol (Bld) 4.29 {M/mm3} Abnormal 4.6-6.2 Compreh ensive Internal Medicine Work Phone: Comment on above: DR SANTOS ORDERED CMP CBCDDR SANKET ORDERED LIPID TSH CBCD [facility] [address] [place], [address] RDW SD 49.6 fL Abnormal 35.1-43.9 Comprehensive Internal Medicine Work Phone: Comment on above: DR SANTOS ORDERED CMP CBCDDR SANKET ORDERED LIPID TSH CBCD [facility] [address] [place], [address] WBC #/vol (Bld) 7.8 10*3/uL Normal 4.4-11.0 Comprehe nsive Internal Medicine Work Phone: Comment on above: DR SANTOS ORDERED CMP CBCDDR SANKET ORDERED LIPID TSH CBCD [facility] [address] [place], [address] CBC W/Diff, Automated 8.3 % Normal 0-10 Com prehensive Internal Medicine Work Phone: Comment on above: DR SANTOS ORDERED CMP CBCDDR SANKET ORDERED LIPID TSH CBCD [facility] [address] [place], [address] CBC W/Diff, Automated 1.32 {X10_3/ul} Normal 0.83-4.51 Comprehensive Internal Medicine Work Phone: Comment on above: DR SANTOS ORDERED CMP CBCDDR SANKET ORDERED LIPID TSH CBCD [facility] [address] [place], [address] CBC W/Diff, Automated 7.8 K/mm3 Normal 4.4-11.0 [facility] prehensive Internal Medicine Work Phone: Comment on above: DR SANTOS ORDERED CMP CBCDDR SANKET ORDERED LIPID TSH CBCD [facility] [address] [place], [place], [phone] CBC W/Diff, Automated 4.29 {M/mm3} Abnormal 4.6-6.2 C [facility] Work Phone: Comment on above: DR SANTOS ORDERED CMP CBCDDR SANKET ORDERED LIPID TSH CBCD [facility] [address] [place], [phone] CBC W/Diff, Automated 12.9 g/dL Abnormal 13.0-16.5 [facility] prehensive Internal Medicine Work Phone: Comment on above: DR SANTOS ORDERED CMP CBCDDR SANKET ORDERED LIPID TSH CBCD [facility] [address] [place], [place], [phone] CBC W/Diff, Automated 40.2 % Normal 40-54 [facility] prehensive Internal Medicine Work Phone: Comment on above: DR SANTOS ORDERED CMP CBCDDR SANKET ORDERED LIPID TSH CBCD [facility] [address] [place], [phone]) CBC W/Diff, Automated 93.7 fL Normal 80-94 [facility] prehensive Internal Medicine Work Phone: Comment on above: DR SANTOS ORDERED CMP CBCDDR SANKET ORDERED LIPID TSH CBCD [facility] [address] [place], [place], [phone] CBC W/Diff, Automated 0.300 % Normal 0.0-0.9 [facility] prehensive Internal Medicine Work Phone: Comment on above: IG% - Immature Granu locytes (promyelocytes, myelocytes andmetamyelocytes) > 1% indicates that a LEFT SHIFT is Present. DR SANTOS ORDERED CMP CBCDDR SANKET ORDERED LIPID TSH CBCD [facility] [address] [place], [address] CBC W/Diff, Automated 32.1 {g/gl} Normal 32-36 [facility] Work Phone: Comment on above: DR SANTOS ORDERED CMP CBCDDR SANKET ORDERED LIPID TSH CBCD [facility] [address] [place], [address] CBC W/Diff, Automated 15.0 % Abnormal 11.6-14.6 Com prehensive Internal Medicine Work Phone: Comment on above: DR SANTOS ORDERED CMP CBCDDR SANKET ORDERED LIPID TSH CBCD [facility] [address] [place], [address] CBC W/Diff, Automated 49.6 fL Abnormal 35.1-43.9 [facility] prehensive Internal Medicine Work Phone: Comment on above: DR SANTOS ORDERED CMP CBCDDR SANKET ORDERED LIPID TSH CBCD [facility] [address] [place], [address] CBC W/Diff, Automated 252 K/mm3 Normal 150-450 Com prehensive Internal Medicine Work Phone: Comment on above: DR SANTOS ORDERED CMP CBCDDR SANKET ORDERED LIPID TSH CBCD [facility] [address] [place], [address] CBC W/Diff, Automated 9.5 fL Normal 6.2-12.0 Com prehensive Internal Medicine Work Phone: Comment on above: DR SANTOS ORDERED CMP CBCDDR SANKET ORDERED LIPID TSH CBCD [facility] [address] [place], [address] CBC W/Diff, Automated 68.3 % Normal 47-70 [facility] prehensive Internal Medicine Work Phone: Comment on above: DR SANTOS ORDERED CMP CBCDDR SANKET ORDERED LIPID TSH CBCD [facility] [address] [place], [place], [phone] CBC W/Diff, Automated 5.9 % Abnormal 0-5 Com prehensive Internal Medicine Work Phone: Comment on above: DR SANTOS ORDERED CMP CBCDDR SANKET ORDERED LIPID TSH CBCD [facility] [address] [place], [place], [phone] CBC W/Diff, Automated 0.4 % Normal 0-1 Com prehensive Internal Medicine Work Phone: Comment on above: DR SANTOS ORDERED CMP CBCDDR SANKET ORDERED LIPID TSH CBCD [facility] [address] [place], [address] CBC W/Diff, Automated 5.4 {X10_3/uL} Normal 2.0-7.7 Comprehensive [facility] Medicine Work Phone: Comment on above: DR SANTOS ORDERED CMP CBCDDR SANKET ORDERED LIPID TSH CBCD [facility] [address] [place], [address] CBC W/Diff, Automated 30.1 pg Normal 27.0-32.0 Com prehensive Internal Medicine Work Phone: Comment on above: DR SANTOS ORDERED CMP CBCDDR SANKET ORDERED LIPID TSH CBCD [facility] [address] [place], [place], [phone] CBC W/Diff, Automated 16.8 % Abnormal 19-41 Com prehensive Internal Medicine Work Phone: Comment on above: DR SANTOS ORDERED CMP CBCDDR SANKET ORDERED LIPID TSH CBCD [facility] [address] [place], [place], [phone] Comprehensive Metabolic Prof ilOrdered By: Washerette Machine Operator on 11-05-2015 Comprehensive metabolic 2000 panel 4.2 mmol/L Normal 3.5-5.1 Comprehensive Internal Medicine Work Phone: Comment on above: DR SANTOS ORDERED CMP CBCDDR SANKET ORDERED LIPID TSH CBCD [facility] [address] [place], [place], [phone] Comprehensive metabolic 2000 panel 28.0 mmol/L Normal 21.0-32.0 Comprehensive Internal Medicine Work Phone: Comment on above: DR SANTOS ORDERED CMP CBCDDR SANKET ORDERED LIPID TSH CBCD [facility] [address] [place], [place], [phone] Comprehensive metabolic 2000 panel 93 mg/dL Normal 70-110 Comprehensive Internal Medicine Work Phone: Comment on above: DR SANTOS ORDERED CMP CBCDDR SANKET ORDERED LIPID TSH CBCD [facility] [address] [place], [place], [address] Comprehensive metabolic 2000 panel 3.4 g/dL Normal 2.3-3.5 Comprehensive Internal Medicine Work Phone: Comment on above: DR SANTOS ORDERED CMP CBCDDR SANKET ORDERED LIPID TSH CBCD [facility] [address] [place], [place], [address] Comprehensive metabolic 2000 panel 16 mg/dL Normal 7-18 Comprehensive Internal Medicine Work Phone: Comment on above: DR SANTOS ORDERED CMP CBCDDR SANKET ORDERED LIPID TSH CBCD [facility] [address] [place], [place], [address] Comprehensive metabolic 2000 panel 0.86 mg/dL Normal 0.70-1.30 Comprehensive Internal Medicine Work Phone: Comment on above: The validity of the calculated GFR AND GFRAA in patients over70 years has not been determined. Clinical correlation isessential. DR SANOTS ORDERED CMP CBCDDR SANKET ORDERED LIPID TSH CBCD [facility] [address] [place], [address] Comprehensive metabolic 2000 panel 6 1 Normal 5-15 Comprehensive Internal Medicine Work Phone: Comment on above: DR SANTOS ORDERED CMP CBCDDR SANKET ORDERED LIPID TSH CBCD [facility] [address] [place], [place], [address] Comprehensive metabolic 2000 panel 98 mL/min Normal Comprehensive Internal Medicine Work Phone: Comment on above: Non- GFR Calc DR SANTOS ORDERED CMP CBCDDR SANKET ORDERED LIPID TSH CBCD [facility] [address] [place], [place], [address] Comprehensive metabolic 2000 panel 119 mL/min Normal Comprehensive Internal Medicine Work Phone: Comment on above: GFR Calc DR SANTOS ORDERED CMP CBCDDR SANKET ORDERED LIPID TSH CBCD [facility] [address] [place], [place], [address] Comprehensive metabolic 2000 panel 18.7 {RATIO} Normal 10-20 Comprehensive Internal Medicine Work Phone: Comment on above: DR SANTOS ORDERED CMP CBCDDR SANKET ORDERED LIPID TSH CBCD [facility] [address] [place], [place], [address] Comprehensive metabolic 2000 panel 7.0 g/dL Normal 6.4-8.2 Comprehensive Internal Medicine Work Phone: Comment on above: DR SANTOS ORDERED CMP CBCDDR SANKET ORDERED LIPID TSH CBCD [facility] [address] [place], [place], [address] Comprehensive metabolic 2000 panel 3.6 g/dL Normal 3.4-5.0 Comprehensive [facility] Medicine Work Phone: Comment on above: DR SANTOS ORDERED CMP CBCDDR SANKET ORDERED LIPID TSH CBCD [facility] [address] [place], [place], [address] Comprehensive metabolic 2000 panel 106 mmol/L Normal 98-107 Comprehensive Internal Medicine Work Phone: Comment on above: DR SANTOS ORDERED CMP CBCDDR SANKET ORDERED LIPID TSH CBCD [facility] [address] [place], [place], [address] Comprehensive metabolic 2000 panel 1.1 {RATIO} Normal 0.9-2.4 Comprehensive Internal Medicine Work Phone: Comment on above: DR SANTOS ORDERED CMP CBCDDR SANKET ORDERED LIPID TSH CBCD [facility] [address] [place], [place], [address] Comprehensive metabolic 2000 panel 8.3 mg/dL Abnormal 8.5-10.1 Comprehensive [facility] Medicine Work Phone: Comment on above: DR SANTOS ORDERED CMP CBCDDR SANKET ORDERED LIPID TSH CBCD [facility] [address] [place], [place], [address] Comprehensive metabolic 2000 panel 20 U/L Normal 15-37 Comprehensive Internal Medicine Work Phone: Comment on above: DR SANTOS ORDERED CMP CBCDDR SANKET ORDERED LIPID TSH CBCD [facility] [address] [place], [place], [address] Comprehensive metabolic 2000 panel 73 U/L Normal 50-136 Comprehensive Internal Medicine Work Phone: Comment on above: DR SANTOS ORDERED CMP CBCDDR SANKET ORDERED LIPID TSH CBCD [facility] [address] [place], [place], [address] Comprehensive metabolic 2000 panel 38 U/L Normal 12-78 Comprehensive Internal Medicine Work Phone: Comment on above: DR SANTOS ORDERED CMP CBCDDR SANKET ORDERED LIPID TSH CBCD [facility] [address] [place], [place], [address] Comprehensive metabolic 2000 panel 0.50 mg/dL Normal 0.20-1.00 Comprehensive Internal Medicine Work Phone: Comment on above: DR SANTOS ORDERED CMP CBCDDR SANKET ORDERED LIPID TSH CBCD [facility] [address] [place], [address] Comprehensive metabolic 2000 panel 140 mmol/L Normal 136-145 Comprehensive Internal Medicine Work Phone: Comment on above: DR SANTOS ORDERED CMP CBCDDR SANKET ORDERED LIPID TSH CBCD [facility] [address] [place], [address] Lipid ProfileOrdered By: Liat tem Gm on 11-05-2015 Cholesterol in HDL mass conc 52 mg/dL Normal Comprehensive Internal Medicine Work Phone: Comment on above: The drugs N-Acetylcy steine and Metamizole may falsely deressthis assay. Reference Range HDL <40 mg/dL Low HDL Cholesterol HDL >or= 60 mg/dL High HDL Cholesterol DR SANTOS ORDERED CMP CBCDDR SANKET ORDERED LIPID TSH CBCD [facility] [address] [place], [address] Cholesterol in LDL mass conc 78 mg/dL Normal 0-130 Comprehensive Internal Medicine Work Phone: Comment on above: DR SANTOS ORDERED CMP CBCDDR SANKET ORDERED LIPID TSH CBCD [facility] [address] [place], [address] Cholesterol in VLDL mass conc 11 mg/dL Normal 5-40 Comprehensive Internal Medicine Work Phone: Comment on above: DR SANTOS ORDERED CMP CBCDDR SANKET ORDERED LIPID TSH CBCD [facility] [address] [place], [address] Cholesterol mass conc 141 mg/dL Normal Com prehensive Internal Medicine Work Phone: Comment on above: <200 mg/dL Desirable 200-240 mg/dL Borderline >240 mg/dL High Risk DR SANTOS ORDERED CMP CBCDDR SANKET ORDERED LIPID TSH CBCD [facility] [address] [place], [place], [address] Triglyceride mass conc 54 mg/dL Normal Co mprehensive Internal Medicine Work Phone: Comment on above: The drugs N-Acetylcy steine and Metamizole may falsely deressthis assay.Serum Triglycerides Reference Interval Normal <150 mg/dL Borderline high 150 - 199 mg/dL High 200 - 499 mg/dL Very High > or = 500 mg/dL DR SANTOS ORDERED CMP CBCDDR SANKET ORDERED LIPID TSH CBCD [facility] [address] [place], [address] Lipid Profile 141 mg/dL Normal Comprehensi ve Internal Medicine Work Phone: Comment on above: <200 mg/dL Desirable 200-240 mg/dL Borderline >240 mg/dL High Risk DR SANTOS ORDERED CMP CBCDDR SANKET ORDERED LIPID TSH CBCD [facility] [address] [place], [place], [address] Lipid Profile 54 mg/dL Normal Comprehensi ve Internal Medicine Work Phone: Comment on above: The drugs N-Acetylcy steine and Metamizole may falsely deressthis assay.Serum Triglycerides Reference Interval Normal <150 mg/dL Borderline high 150 - 199 mg/dL High 200 - 499 mg/dL Very High > or = 500 mg/dL DR SANTOS ORDERED CMP CBCDDR SANKET ORDERED LIPID TSH CBCD [facility] [address] [place], [place], [address] Lipid Profile 52 mg/dL Normal Comprehensi ve Internal Medicine Work Phone: Comment on above: The drugs N-Acetylcy steine and Metamizole may falsely deressthis assay. Reference Range HDL <40 mg/dL Low HDL Cholesterol HDL >or= 60 mg/dL High HDL Cholesterol DR SANTOS ORDERED CMP CBCDDR SANKET ORDERED LIPID TSH CBCD [facility] [address] [place], [address] Lipid Profile 78 mg/dL Normal 0-130 Comprehensi ve Internal Medicine Work Phone: Comment on above: DR SANTOS ORDERED CMP CBCDDR SANKET ORDERED LIPID TSH CBCD [facility] [address] [place], [address] Lipid Profile 11 mg/dL Normal 5-40 Comprehensi ve Internal Medicine Work Phone: Comment on above: DR SANTOS ORDERED CMP CBCDDR SANKET ORDERED LIPID TSH CBCD [facility] [address] [place], [address] Thyroid Stim Hormone (TSH)Or dered By: Washerette Machine Operator on 11-05-2015 Thyrotropin Qn 0.80 {uIU/mL} Normal 0.358-3.74 Compreh ensive Internal Medicine Work Phone: Comment on above: DR SANTOS ORDERED CMP CBCDDR SANKET ORDERED LIPID TSH CBCD [facility] [address] [place], [address] Vitamin D,25 HydroxyOrdered By: Washerette Machine Operator on 11-05-2015 Vitamin D,25 Hydroxy 50.7 ng/mL Normal Comp rehensive Internal Medicine Work Phone: Comment on above: Vitamin D 25(OH) Sta tus Range Deficiency <20 ng/mL (50nmol/L) Insuffciency 20 - 30 ng/mL (50 - 75 nmol/L) Sufficiency 30 - 100 ng/mL (75 - 250 nmol/L) Toxicity >100 ng/mL (>250 nmol/L) DR SANTOS ORDERED CMP CBCDDR SANKET ORDERED LIPID TSH CBCD [facility] [address] [place], [address] Hemoglobin B4xTxyldew By: Sy stem Gm on 08-20-2015 Hemoglobin A1c/Hemoglobin.total mass fraction (Bld) 5.7 % Normal 4.2-6.3 Comprehensiv e Internal Medicine Work Phone: Comment on above: [facility] spital [address] [place], [place], [address] Lipid ProfileOrdered By: Liat tem Gm on 08-20-2015 Cholesterol in HDL mass conc 50 mg/dL Normal Comprehensive Internal Medicine Work Phone: Comment on above: The drugs N-Acetylcy steine and Metamizole may falsely deressthis assay. Reference Range HDL <40 mg/dL Low HDL Cholesterol HDL >or= 60 mg/dL High HDL Cholesterol [facility] [address] [place], [place], [address] Cholesterol in LDL mass conc 67 mg/dL Normal 0-130 Comprehensive Internal Medicine Work Phone: Comment on above: [facility] [address] [place], [place], [phone] Cholesterol in VLDL mass conc 10 mg/dL Normal 5-40 Comprehensive Internal Medicine Work Phone: Comment on above: [facility] [address] [place], [place], [address] Cholesterol mass conc 127 mg/dL Normal Com prehensive Internal Medicine Work Phone: Comment on above: <200 mg/dL Desirable 200-240 mg/dL Borderline >240 mg/dL High Risk [facility] [address] [place], [place], [phone] Triglyceride mass conc 48 mg/dL Normal Co mprehensive Internal Medicine Work Phone: Comment on above: The drugs N-Acetylcy steine and Metamizole may falsely deressthis assay.Serum Triglycerides Reference Interval Normal <150 mg/dL Borderline high 150 - 199 mg/dL High 200 - 499 mg/dL Very High > or = 500 mg/dL [facility] [address] [place], [place], [address] Lipid Profile 127 mg/dL Normal Comprehensi ve Internal Medicine Work Phone: Comment on above: <200 mg/dL Desirable 200-240 mg/dL Borderline >240 mg/dL High Risk [facility] [address] [place], [place], [address] Lipid Profile 48 mg/dL Normal Comprehensi ve Internal Medicine Work Phone: Comment on above: The drugs N-Acetylcy steine and Metamizole may falsely deressthis assay.Serum Triglycerides Reference Interval Normal <150 mg/dL Borderline high 150 - 199 mg/dL High 200 - 499 mg/dL Very High > or = 500 mg/dL [facility] [address] [place], [place], [address] Lipid Profile 50 mg/dL Normal Comprehensi ve Internal Medicine Work Phone: Comment on above: The drugs N-Acetylcy steine and Metamizole may falsely deressthis assay. Reference Range HDL <40 mg/dL Low HDL Cholesterol HDL >or= 60 mg/dL High HDL Cholesterol [facility] [address] [place], [place], [address] Lipid Profile 67 mg/dL Normal 0-130 Comprehensi ve Internal Medicine Work Phone: Comment on above: [facility] [address] [place], [place], [address] Lipid Profile 10 mg/dL Normal 5-40 Comprehensi ve Internal Medicine Work Phone: Comment on above: [facility] [address] [place], [place], [address] MicroalbOrdered By: Remberto garibay on 08-20-2015 Microalb 6.1 mg/L Normal Comprehensive Internal Medicine Work Phone: Comment on above: [facility] [address] [place], [place], [address] Microalb 163.00 mg/dL Normal Comprehensiv e Internal Medicine Work Phone: Comment on above: [facility] [address] [place], [place], [id number] Microalb 3.7 {mg/g_CRE} Normal Comprehens nik Internal Medicine Work Phone: Comment on above: [facility] [address] [place], [place], [phone] Thyroid Stim Hormone (TSH)Or dered By: Washerette Machine Operator on 08-20-2015 Thyrotropin Qn 1.14 {uIU/mL} Normal 0.358-3.74 Compreh ensive Internal Medicine Work Phone: Comment on above: [facility] [address] [place], [place], [phone] Urinalysis, CompleteOrdered By: Washerette Machine Operator on 08-20-2015 Protein mass conc (U) Negative Normal Com prehensive Internal Medicine Work Phone: Comment on above: How was Urine Obtain ed? [facility] [address] [place], [place], [phone] RBC #/vol (U) 0 SEEN Normal 0-5 Comprehensi ve Internal Medicine Work Phone: Comment on above: How was Urine Obtain ed? [facility] [address] [place], [place], [phone] Urinalysis complete panel - Urine RARE Normal Comprehensive Internal Medicine Work Phone: Comment on above: How was Urine Obtain ed? [facility] [address] [place], [place], [phone] Urinalysis complete panel - Urine Clear Normal Comprehensive Internal Medicine Work Phone: Comment on above: How was Urine Obtain ed? [facility] [address] [place], [place], [address] Urinalysis complete panel - Urine 0-5 SEEN Normal 0-5 Comprehensive Internal Medicine Work Phone: Comment on above: How was Urine Obtain ed? [facility] [address] [place], [phone] Urinalysis complete panel - Urine Negative Normal Comprehensive Internal Medicine Work Phone: Comment on above: How was Urine Obtain ed? [facility] [address] [place], [address] Urinalysis complete panel - Urine Normal Normal [facility] Internal Medicine Work Phone: Comment on above: How was Urine Obtain ed? [facility] [address] [place], [phone] Urinalysis complete panel - Urine 6.0 1 Normal 5.0 - 8.0 [facility] Medicine Work Phone: Comment on above: How was Urine Obtain ed? [facility] [address] [place], [address] Urinalysis complete panel - Urine 1.020 1 Normal 1.002-1.03 0 [facility] Internal Medicine Work Phone: Comment on above: How was Urine Obtain ed? [facility] [address] [place], [address] Urinalysis complete panel - Urine 5 mg/dL Abnormal [facility] Medicine Work Phone: Comment on above: How was Urine Obtain ed? [facility] [address] [place], [address] Urinalysis complete panel - Urine Yellow Normal [facility] Medicine Work Phone: Comment on above: How was Urine Obtain ed? [facility] [address] [place], [address] Urinalysis complete panel - Urine 0 SEEN Normal 0-5 [facility] Internal Medicine Work Phone: Comment on above: How was Urine Obtain ed? [facility] [address] [place], [address] Vitamin D,25 HydroxyOrdered By: Washerette Machine Operator on 08-20-2015 Vitamin D,25 Hydroxy 46.5 ng/mL Normal Comp rehensive Internal Medicine Work Phone: Comment on above: Vitamin D 25(OH) Sta tus Range Deficiency <20 ng/mL (50nmol/L) Insuffciency 20 - 30 ng/mL (50 - 75 nmol/L) Sufficiency 30 - 100 ng/mL (75 - 250 nmol/L) Toxicity >100 ng/mL (>250 nmol/L) [facility] [address] [place], [place], [address] CBC W/Diff, AutomatedOrdered By: Washerette Machine Operator on 07-11-2015 Absolute Neut 4.0 {X10_3/uL} Normal 2.0-7.7 Compreh ensive Internal Medicine Work Phone: Comment on above: [facility] [address] [place], [place], [phone] Basophils/100 WBC (Bld) 0.3 % Normal 0-1 C omprehensive Internal Medicine Work Phone: Comment on above: [facility] [address] [place], [address] Eosinophils/100 WBC (Bld) 3.7 % Normal 0-5 Comprehensive Internal Medicine Work Phone: Comment on above: [facility] [address] [place], [place], [phone] Erythrocyte distribution width Ratio (RBC) 14.8 % Abnormal 11.6-14.6 [facility] Medicine Work Phone: Comment on above: [facility] [address] [place], [place], [address] Hematocrit Volume Fraction (Bld) 40.8 % Normal 40-54 Comprehensive Internal Medicine Work Phone: Comment on above: [facility] [address] [place], [place], [phone] Hemoglobin mass conc (Bld) 13.0 g/dL Normal 13.0-16.5 [facility] Medicine Work Phone: Comment on above: [facility] [address] [place], [address] IM GRAN % 0.200 % Normal 0.0-0.9 [facility] Medicine Work Phone: Comment on above: IG% - Immature Granu locytes (promyelocytes, myelocytes andmetamyelocytes) > 1% indicates that a LEFT SHIFT is Present. [facility] [address] [place], [address] Lymphocytes #/vol (Bld) 1.74 {X10_3/ul} Normal 0.83-4. 51 [facility] Internal Medicine Work Phone: Comment on above: [facility] [address] [place], [address] Lymphocytes/100 WBC (Bld) 26.7 % Normal 19-41 [facility] Internal Medicine Work Phone: Comment on above: [facility] [address] [place], [address] MCH Entitic mass (RBC) 29.3 pg Normal 27.0-32.0 [facility] Work Phone: Comment on above: [facility] [address] [place], [address] MCHC mass conc (RBC) 31.9 {g/gl} Abnormal 32-36 Com prehensive Internal Medicine Work Phone: Comment on above: [facility] [address] [place], [address] MCV Entitic volume (RBC) 91.9 fL Normal 80-94 [facility] Medicine Work Phone: Comment on above: [facility] [address] [place], [address] Monocytes/100 WBC (Bld) 7.5 % Normal 0-10 C omprehensive Internal Medicine Work Phone: Comment on above: [facility] [address] [place], [address] Neutrophils/100 WBC (Bld) 61.6 % Normal 47-70 Comprehensive Internal Medicine Work Phone: Comment on above: [facility] [address] [place], [address] Platelet mean volume Entitic volume (Bld) 9.5 fL Normal 6.2-12.0 Comprehensi ve Internal Medicine Work Phone: Comment on above: [facility] [address] [place], [address] Platelets #/vol (Bld) 218 10*3/uL Normal 150-450 Co mprehensive Internal Medicine Work Phone: Comment on above: [facility] [address] [place], [address] RBC #/vol (Bld) 4.44 {M/mm3} Abnormal 4.6-6.2 Compreh ensive Internal Medicine Work Phone: Comment on above: [facility] [address] [place], [address] RDW SD 49.6 fL Abnormal 35.1-43.9 Comprehensive Internal Medicine Work Phone: Comment on above: [facility] [address] [place], [address] WBC #/vol (Bld) 6.5 10*3/uL Normal 4.4-11.0 Comprehe nsive Internal Medicine Work Phone: Comment on above: [facility] [address] [place], [address] CBC W/Diff, Automated 4.0 {X10_3/uL} Normal 2.0-7.7 [facility] Work Phone: Comment on above: [facility] [address] [place], [place], [address] CBC W/Diff, Automated 61.6 % Normal 47-70 Com prehensive Internal Medicine Work Phone: Comment on above: [facility] [address] [place], [place], [address] CBC W/Diff, Automated 26.7 % Normal 19-41 Com prehensive Internal Medicine Work Phone: Comment on above: [facility] [address] [place], [place], [address] CBC W/Diff, Automated 7.5 % Normal 0-10 Com prehensive Internal Medicine Work Phone: Comment on above: [facility] [address] [place], [place], [address] CBC W/Diff, Automated 4.44 {M/mm3} Abnormal 4.6-6.2 [facility] Work Phone: Comment on above: [facility] [address] [place], [place], [phone] CBC W/Diff, Automated 3.7 % Normal 0-5 Com prehensive Internal Medicine Work Phone: Comment on above: [facility] [address] [place], [place], [phone] CBC W/Diff, Automated 6.5 K/mm3 Normal 4.4-11.0 Com prehensive Internal Medicine Work Phone: Comment on above: [facility] [address] [place], [place], [phone] CBC W/Diff, Automated 0.200 % Normal 0.0-0.9 [facility] prehensive Internal Medicine Work Phone: Comment on above: IG% - Immature Granu locytes (promyelocytes, myelocytes andmetamyelocytes) > 1% indicates that a LEFT SHIFT is Present. [facility] [address] [place], [place], [address] CBC W/Diff, Automated 13.0 g/dL Normal 13.0-16.5 [facility] prehensive Internal Medicine Work Phone: Comment on above: [facility] [address] [place], [address] CBC W/Diff, Automated 0.3 % Normal 0-1 [facility] prehensive Internal Medicine Work Phone: Comment on above: [facility] [address] [place], [address] CBC W/Diff, Automated 1.74 {X10_3/ul} Normal 0.83-4.51 [facility] Internal Medicine Work Phone: Comment on above: [facility] [address] [place], [place], [address] CBC W/Diff, Automated 40.8 % Normal 40-54 [facility] prehensive Internal Medicine Work Phone: Comment on above: [facility] [address] [place], [address] CBC W/Diff, Automated 91.9 fL Normal 80-94 [facility] prehensive Internal Medicine Work Phone: Comment on above: [facility] [address] [place], [address] CBC W/Diff, Automated 29.3 pg Normal 27.0-32.0 [facility] prehensive Internal Medicine Work Phone: Comment on above: [facility] [address] [place], [address] CBC W/Diff, Automated 31.9 {g/gl} Abnormal 32-36 [facility] Work Phone: Comment on above: [facility] [address] [place], [address] CBC W/Diff, Automated 14.8 % Abnormal 11.6-14.6 [facility] prehensive Internal Medicine Work Phone: Comment on above: [facility] [address] [place], [place], [address] CBC W/Diff, Automated 49.6 fL Abnormal 35.1-43.9 [facility] prehensive Internal Medicine Work Phone: Comment on above: [facility] [address] [place], [place], [address] CBC W/Diff, Automated 218 K/mm3 Normal 150-450 Com prehensive Internal Medicine Work Phone: Comment on above: [facility] [address] [place], [place], [address] CBC W/Diff, Automated 9.5 fL Normal 6.2-12.0 [facility] prehensive Internal Medicine Work Phone: Comment on above: [facility] [address] [place], [place], [address] Comprehensive Metabolic Prof ilOrdered By: Washerette Machine Operator on 07-11-2015 Comprehensive metabolic 2000 panel 3.8 g/dL Normal 3.4-5.0 [facility] Medicine Work Phone: Comment on above: [facility] [address] [place], [place], [address] Comprehensive metabolic 2000 panel 7.0 g/dL Normal 6.4-8.2 [facility] Medicine Work Phone: Comment on above: [facility] [address] [place], [place], [address] Comprehensive metabolic 2000 panel 15.4 {RATIO} Normal 10-20 [facility] Internal Medicine Work Phone: Comment on above: [facility] [address] [place], [place], [address] Comprehensive metabolic 2000 panel 95 mL/min Normal Comprehensive Internal Medicine Work Phone: Comment on above: GFR [facility] [address] [place], [place], [address] Comprehensive metabolic 2000 panel 78 mL/min Normal Comprehensive Internal Medicine Work Phone: Comment on above: Non- GFR [facility] [address] [place], [place], [address] Comprehensive metabolic 2000 panel 3.2 g/dL Normal 2.3-3.5 [facility] Medicine Work Phone: Comment on above: [facility] [address] [place], [place], [address] Comprehensive metabolic 2000 panel 1.2 {RATIO} Normal 0.9-2.4 [facility] Medicine Work Phone: Comment on above: [facility] [address] [place], [place], [address] Comprehensive metabolic 2000 panel 8.4 mg/dL Abnormal 8.5-10.1 [facility] Work Phone: Comment on above: [facility] [address] [place], [place], [address] Comprehensive metabolic 2000 panel 28 U/L Normal 15-37 Comprehensive Internal Medicine Work Phone: Comment on above: [facility] [address] [place], [place], [address] Comprehensive metabolic 2000 panel 16 mg/dL Normal 7-18 [facility] Internal Medicine Work Phone: Comment on above: [facility] [address] [place], [address] Comprehensive metabolic 2000 panel 40 U/L Normal 12-78 [facility] Internal Medicine Work Phone: Comment on above: [facility] [address] [place], [place], [address] Comprehensive metabolic 2000 panel 0.40 mg/dL Normal 0.20-1.00 [facility] Medicine Work Phone: Comment on above: [facility] [address] [place], [place], [address] Comprehensive metabolic 2000 panel 140 mmol/L Normal 136-145 Comprehensive Internal Medicine Work Phone: Comment on above: [facility] [address] [place], [place], [address] Comprehensive metabolic 2000 panel 4.2 mmol/L Normal 3.5-5.1 Comprehensive Internal Medicine Work Phone: Comment on above: [facility] [address] [place], [place], [address] Comprehensive metabolic 2000 panel 105 mmol/L Normal 98-107 Comprehensive Internal Medicine Work Phone: Comment on above: [facility] [address] [place], [place], [address] Comprehensive metabolic 2000 panel 31.0 mmol/L Normal 21.0-32.0 [facility] Internal Medicine Work Phone: Comment on above: [place] [address] [place], [place], [address] Comprehensive metabolic 2000 panel 4 1 Abnormal 5-15 Comprehensive Internal Medicine Work Phone: Comment on above: [facility] [address] [place], [place], [address] Comprehensive metabolic 2000 panel 1.04 mg/dL Normal 0.70-1.30 [facility] Internal Medicine Work Phone: Comment on above: The validity of the calculated GFR AND GFRAA in patients over70 years has not been determined. Clinical correlation isessential. [facility] [address] [place], [place], [address] Comprehensive metabolic 2000 panel 116 mg/dL Abnormal 70-110 Comprehensive Internal Medicine Work Phone: Comment on above: Fasting Glucose resu lt from 110 to <126 mg/dLsuggests IMPAIRED HOMEOSTASIS per A.D.A. criteria. [facility] [address] [place], [place], [address] Comprehensive metabolic 2000 panel 61 U/L Normal 50-136 Comprehensive [facility] Medicine Work Phone: Comment on above: [facility] [address] [place], [place], [address] CBC W/Diff, AutomatedOrdered By: Washerette Machine Operator on 04-20-2015 Absolute Neut 2.9 {X10_3/uL} Normal 2.0-7.7 Compreh ensive Internal Medicine Work Phone: Comment on above: [facility] [address] [place], [place], [address] ; ordered by Max Basophils/100 WBC (Bld) 0.2 % Normal 0-1 C omprehensive Internal Medicine Work Phone: Comment on above: [facility] [address] [place], [place], [address] ; ordered by Max Eosinophils/100 WBC (Bld) 4.2 % Normal 0-5 [facility] Internal Medicine Work Phone: Comment on above: [facility] [address] [place], [place], [address] ; ordered by Max Erythrocyte distribution width Ratio (RBC) 13.7 % Normal 11.6-14.6 [facility] Work Phone: Comment on above: [facility] [address] [place], [place], [address] ; ordered by Max Hematocrit Volume Fraction (Bld) 44.0 % Normal 40-54 [facility] Medicine Work Phone: Comment on above: [facility] [address] [place], [place], [address] ; ordered by Max Hemoglobin mass conc (Bld) 14.3 g/dL Normal 13.0-16.5 [facility] Work Phone: Comment on above: [facility] [address] [place], [place], [address] ; ordered by Max IM GRAN % 0.200 % Normal 0.0-0.9 [facility] Work Phone: Comment on above: IG% - Immature Granu locytes (promyelocytes, myelocytes andmetamyelocytes) > 1% indicates that a LEFT SHIFT is Present. [facility] [address] [place], [place], [address] ; ordered by Max Lymphocytes #/vol (Bld) 1.83 {X10_3/ul} Normal 0.83-4. 51 [facility] Work Phone: Comment on above: [facility] [address] [place], [place], [address] ; ordered by Max Lymphocytes/100 WBC (Bld) 32.2 % Normal 19-41 [facility] Medicine Work Phone: Comment on above: [facility] [address] [place], [place], [address] ; ordered by Max MCH Entitic mass (RBC) 30.1 pg Normal 27.0-32.0 [facility] Work Phone: Comment on above: [facility] [address] [place], [place], [address] ; ordered by Max MCHC mass conc (RBC) 32.5 {g/gl} Normal 32-36 [facility] prehensive Internal Medicine Work Phone: Comment on above: [facility] [address] [place], [place], [address] ; ordered by Max MCV Entitic volume (RBC) 92.6 fL Normal 80-94 [facility] Medicine Work Phone: Comment on above: [facility] [address] [place], [place], [address] ; ordered by Max Monocytes/100 WBC (Bld) 12.3 % Abnormal 0-10 C omprehensive Internal Medicine Work Phone: Comment on above: [facility] [address] [place], [place], [address] ; ordered by Max Neutrophils/100 WBC (Bld) 50.9 % Normal 47-70 [facility] Medicine Work Phone: Comment on above: [facility] [address] [place], [place], [address] ; ordered by Max Platelet mean volume Entitic volume (Bld) 9.6 fL Normal 6.2-12.0 Comprehensi ve Internal Medicine Work Phone: Comment on above: [facility] [address] [place], [place], [address] ; ordered by Max Platelets #/vol (Bld) 229 10*3/uL Normal 150-450 [facility] Work Phone: Comment on above: [facility] [address] [place], [place], [address] ; ordered by Max RBC #/vol (Bld) 4.75 {M/mm3} Normal 4.6-6.2 Compreh ensive Internal Medicine Work Phone: Comment on above: [facility] [address] [place], [place], [address] ; ordered by Max RDW SD 45.4 fL Abnormal 35.1-43.9 [facility] Medicine Work Phone: Comment on above: [facility] [address] [place], [place], [address] ; ordered by Max WBC #/vol (Bld) 5.7 10*3/uL Normal 4.4-11.0 Comprehe nsive Internal Medicine Work Phone: Comment on above: [facility] [address] [place], [place], [address] ; ordered by Max CBC W/Diff, Automated 5.7 K/mm3 Normal 4.4-11.0 [facility] prehensive Internal Medicine Work Phone: Comment on above: [facility] [address] [place], [place], [address] ; ordered by [employer] CBC W/Diff, Automated 45.4 fL Abnormal 35.1-43.9 [facility] prehensive Internal Medicine Work Phone: Comment on above: [facility] [address] [place], [place], [address] ; ordered by [employer] CBC W/Diff, Automated 229 K/mm3 Normal 150-450 Com prehensive Internal Medicine Work Phone: Comment on above: [facility] [address] [place], [place], [address] ; ordered by [employer] [place] CBC W/Diff, Automated 4.75 {M/mm3} Normal 4.6-6.2 [facility] Work Phone: Comment on above: [facility] [address] [place], [place], [address] ; ordered by [employer] [place] CBC W/Diff, Automated 14.3 g/dL Normal 13.0-16.5 [facility] prehensive Internal Medicine Work Phone: Comment on above: [facility] [address] [place], [place], [address] ; ordered by [employer] [place] CBC W/Diff, Automated 44.0 % Normal 40-54 [facility] prehensive Internal Medicine Work Phone: Comment on above: [facility] [address] [place], [place], [address] ; ordered by [employer] [place] CBC W/Diff, Automated 92.6 fL Normal 80-94 [facility] prehensive Internal Medicine Work Phone: Comment on above: [facility] [address] [place], [place], [address] ; ordered by [employer] CBC W/Diff, Automated 30.1 pg Normal 27.0-32.0 [facility] prehensive Internal Medicine Work Phone: Comment on above: [facility] [address] [place], [place], [address] ; ordered by [employer] CBC W/Diff, Automated 32.5 {g/gl} Normal 32-36 [facility] Work Phone: Comment on above: [facility] [address] [place], [place], [address] ; ordered by [employer] CBC W/Diff, Automated 13.7 % Normal 11.6-14.6 [facility] prehensive Internal Medicine Work Phone: Comment on above: [facility] [address] [place], [place], [address] ; ordered by [employer] CBC W/Diff, Automated 9.6 fL Normal 6.2-12.0 [facility] prehensive Internal Medicine Work Phone: Comment on above: [facility] [address] [place], [place], [address] ; ordered by [employer] CBC W/Diff, Automated 50.9 % Normal 47-70 [facility] prehensive Internal Medicine Work Phone: Comment on above: [facility] [address] [place], [place], [address] ; ordered by [employer] CBC W/Diff, Automated 32.2 % Normal 19-41 [facility] prehensive Internal Medicine Work Phone: Comment on above: [facility] [address] [place], [place], [address] ; ordered by [employer] CBC W/Diff, Automated 12.3 % Abnormal 0-10 [facility] prehensive Internal Medicine Work Phone: Comment on above: [facility] [address] [place], [place], [address] ; ordered by [employer] CBC W/Diff, Automated 4.2 % Normal 0-5 [facility] prehensive Internal Medicine Work Phone: Comment on above: [facility] [address] [place], [place], [address] ; ordered by [employer] CBC W/Diff, Automated 0.2 % Normal 0-1 Com prehensive Internal Medicine Work Phone: Comment on above: [facility] [address] [place], [place], [address] ; ordered by [employer] CBC W/Diff, Automated 0.200 % Normal 0.0-0.9 Com prehensive Internal Medicine Work Phone: Comment on above: IG% - Immature Granu locytes (promyelocytes, myelocytes andmetamyelocytes) > 1% indicates that a LEFT SHIFT is Present. [facility] [address] [place], [place], [address] ; ordered by [employer] CBC W/Diff, Automated 2.9 {X10_3/uL} Normal 2.0-7.7 [facility] Work Phone: Comment on above: [facility] [address] [place], [place], [address] ; ordered by [employer] CBC W/Diff, Automated 1.83 {X10_3/ul} Normal 0.83-4.51 [facility] Work Phone: Comment on above: [facility] [address] [place], [place], [phone] ; ordered by [email or web address] Comprehensive Metabolic Prof ilOrdered By: Washerette Machine Operator on 04-20-2015 Comprehensive metabolic 2000 panel 4.2 mmol/L Normal 3.5-5.1 [facility] Medicine Work Phone: Comment on above: [facility] [address] [place], [place], [address] Comprehensive metabolic 2000 panel 140 mmol/L Normal 136-145 Comprehensive Internal Medicine Work Phone: Comment on above: [facility] [facility] [address] [place], [place], [address] Comprehensive metabolic 2000 panel 87 mg/dL Normal 70-110 [facility] Work Phone: Comment on above: [facility] [address] [place], [place], [address] Comprehensive metabolic 2000 panel 0.40 mg/dL Normal 0.20-1.00 [facility] Work Phone: Comment on above: [facility] [address] [place], [place], [address] Comprehensive metabolic 2000 panel 18 mg/dL Normal 7-18 [facility] Work Phone: Comment on above: [facility] [address] [place], [place], [phone] Comprehensive metabolic 2000 panel 0.97 mg/dL Normal 0.70-1.30 [facility] Work Phone: Comment on above: The validity of the calculated GFR AND GFRAA in patients over70 years has not been determined. Clinical correlation isessential. [facility] [address] [place], [place], [phone] Comprehensive metabolic 2000 panel 7.5 g/dL Normal 6.4-8.2 [facility] Work Phone: Comment on above: [facility] [address] [place], [address] Comprehensive metabolic 2000 panel 85 mL/min Normal [facility] Work Phone: Comment on above: Non- GFR Calc [facility] [address] [place], [place], [phone] Comprehensive metabolic 2000 panel 103 mL/min Normal [facility] Work Phone: Comment on above: GFR Calc [facility] [address] [place], [place], [phone] Comprehensive metabolic 2000 panel 72 U/L Normal 50-136 [facility] Work Phone: Comment on above: [facility] spital [address] [place], [place], [address] Comprehensive metabolic 2000 panel 17 U/L Normal 15-37 [facility] Medicine Work Phone: Comment on above: [facility] spital [address] [place], [address] Comprehensive metabolic 2000 panel 8.8 mg/dL Normal 8.5-10.1 [facility] Work Phone: Comment on above: [facility] spital [address] [place], [place], [address] Comprehensive metabolic 2000 panel 1.1 {RATIO} Normal 0.9-2.4 [facility] Work Phone: Comment on above: [facility] spital [address] [place], [address] Comprehensive metabolic 2000 panel 3.5 g/dL Normal 2.3-3.5 [facility] Work Phone: Comment on above: [facility] spital [address] [place], [place], [phone] Comprehensive metabolic 2000 panel 4.0 g/dL Normal 3.4-5.0 [facility] Work Phone: Comment on above: [facility] spital [address] [place], [address] Comprehensive metabolic 2000 panel 18.6 {RATIO} Normal 10-20 [facility] Work Phone: Comment on above: [facility] spital [address] [place], [address] Comprehensive metabolic 2000 panel 36 U/L Normal 12-78 [facility] Work Phone: Comment on above: [facility] spital [address] [place], [address] Comprehensive metabolic 2000 panel 105 mmol/L Normal 98-107 [facility] Work Phone: Comment on above: [facility] [address] [place], [place], [phone] Comprehensive metabolic 2000 panel 30.0 mmol/L Normal 21.0-32.0 [facility] Work Phone: Comment on above: [facility] [address] [place], [place], [phone] Comprehensive metabolic 2000 panel 5 1 Normal 5-15 [facility] Work Phone: Comment on above: [facility] [address] [place], [place], [phone] AST(SGOT)Ordered By: Washerette Machine Operator on 03-04-2015 AST enzyme act/vol 26 U/L Normal 15-37 [facility] Internal Medicine Work Phone: Comment on above: Slight Hemolysis, Re sult may be falsely increased. [facility] [address] [place], [place], [phone] Alanine Aminotransferas (SGP T)Ordered By: Washerette Machine Operator on 03-04-2015 ALT With P-5'-P enzyme act/vol 33 U/L Normal 12-78 [facility] Work Phone: Comment on above: [facility] [address] [place], [place], [phone] Albumin, SerumOrdered By: Sy stem Gm on 03-04-2015 Albumin mass conc (Syn fld) 3.6 g/dL Normal 3.4-5.0 [facility] Internal Medicine Work Phone: Comment on above: [facility] [address] [place], [place], [phone] Alkaline PhosphataseOrdered By: Washerette Machine Operator on 03-04-2015 ALP enzyme act/vol 71 U/L Normal 50-136 [facility] Internal Medicine Work Phone: Comment on above: [facility] [address] [place], [place], [phone] BUNOrdered By: System Manage r on 03-04-2015 Urea nitrogen mass conc 17 mg/dL Normal 7-18 C omprehensive Internal Medicine Work Phone: Comment on above: [facility] [address] [place], [place], [phone] Bilirubin, TotalOrdered By: Washerette Machine Operator on 03-04-2015 Bilirubin mass conc 0.20 mg/dL Normal 0.20-1.00 Compr ensive Internal Medicine Work Phone: Comment on above: [facility] [address] [place], [address] CBC W/Diff, AutomatedOrdered By: Washerette Machine Operator on 03-04-2015 Absolute Neut 3.1 {X10_3/uL} Normal 2.0-7.7 Compreh [facility] Internal Medicine Work Phone: Comment on above: [facility] [address] [place], [place], [phone] Basophils/100 WBC (Bld) 0.2 % Normal 0-1 [facility] Internal [facility] Work Phone: Comment on above: [facility] [address] [place], [address] Eosinophils/100 WBC (Bld) 5.4 % Abnormal 0-5 [facility] Work Phone: Comment on above: [facility] [address] [place], [place], [phone] Erythrocyte distribution width Ratio (RBC) 14.0 % Normal 11.6-14.6 [facility] Work Phone: Comment on above: [facility] [address] [place], [place], [phone] Hematocrit Volume Fraction (Bld) 42.1 % Normal 40-54 [facility] Work Phone: Comment on above: [facility] [address] [place], [address] Hemoglobin mass conc (Bld) 13.5 g/dL Normal 13.0-16.5 [facility] Work Phone: Comment on above: [facility] [address] [place], [address] IM GRAN % 0.300 % Normal 0.0-0.9 [facility] Work Phone: Comment on above: IG% - Immature Granu locytes (promyelocytes, myelocytes andmetamyelocytes) > 1% indicates that a LEFT SHIFT is Present. [facility] [address] [place], [place], [phone] Lymphocytes #/vol (Bld) 1.86 {X10_3/ul} Normal 0.83-4. 51 [facility] Work Phone: Comment on above: [facility] [address] [place], [address] Lymphocytes/100 WBC (Bld) 31.4 % Normal 19-41 [facility] Work Phone: Comment on above: [facility] [address] [place], [address] MCH Entitic mass (RBC) 30.3 pg Normal 27.0-32.0 [facility] Work Phone: Comment on above: [facility] [address] [place], [address] MCHC mass conc (RBC) 32.1 {g/gl} Normal 32-36 [facility] prehensive Internal Medicine Work Phone: Comment on above: [facility] [address] [place], [address] MCV Entitic volume (RBC) 94.4 fL Abnormal 80-94 [facility] Work Phone: Comment on above: [facility] [address] [place], [address] Monocytes/100 WBC (Bld) 10.6 % Abnormal 0-10 [facility] Internal [facility] Work Phone: Comment on above: [facility] [address] [place], [address] Neutrophils/100 WBC (Bld) 52.1 % Normal 47-70 [facility] Work Phone: Comment on above: [facility] [address] [place], [address] Platelet mean volume Entitic volume (Bld) 9.9 fL Normal 6.2-12.0 Comprehensi Internal Medicine Work Phone: Comment on above: [facility] [address] [place], [address] Platelets #/vol (Bld) 247 10*3/uL Normal 150-450 [facility] Work Phone: Comment on above: [facility] [address] [place], [address] RBC #/vol (Bld) 4.46 {M/mm3} Abnormal 4.6-6.2 Compreh [facility] Internal Medicine Work Phone: Comment on above: [facility] [address] [place], [address] RDW SD 47.5 fL Abnormal 35.1-43.9 [facility] Work Phone: Comment on above: [facility] [address] [place], [address] WBC #/vol (Bld) 5.9 10*3/uL Normal 4.4-11.0 Comprehe [facility] Internal Medicine Work Phone: Comment on above: [facility] [address] [place], [address] CBC W/Diff, Automated 4.46 {M/mm3} Abnormal 4.6-6.2 C omprehensive Internal Medicine Work Phone: Comment on above: [facility] [address] [place], [address] CBC W/Diff, Automated 94.4 fL Abnormal 80-94 [facility] prehensive Internal Medicine Work Phone: Comment on above: [facility] [address] [place], [address] CBC W/Diff, Automated 5.9 K/mm3 Normal 4.4-11.0 [facility] prehensive Internal Medicine Work Phone: Comment on above: [facility] [address] [place], [address] CBC W/Diff, Automated 13.5 g/dL Normal 13.0-16.5 [facility] prehensive Internal Medicine Work Phone: Comment on above: [facility] [address] [place], [address] CBC W/Diff, Automated 42.1 % Normal 40-54 [facility] prehensive Internal Medicine Work Phone: Comment on above: [facility] [address] [place], [address] CBC W/Diff, Automated 30.3 pg Normal 27.0-32.0 [facility] prehensive Internal Medicine Work Phone: Comment on above: [facility] [address] [place], [address] CBC W/Diff, Automated 32.1 {g/gl} Normal 32-36 [facility] Work Phone: Comment on above: [facility] [address] [place], [address] CBC W/Diff, Automated 14.0 % Normal 11.6-14.6 [facility] prehensive Internal Medicine Work Phone: Comment on above: [facility] [address] [place], [address] CBC W/Diff, Automated 47.5 fL Abnormal 35.1-43.9 Com prehensive Internal Medicine Work Phone: Comment on above: [facility] [address] [place], [address] CBC W/Diff, Automated 247 K/mm3 Normal 150-450 Com prehensive Internal Medicine Work Phone: Comment on above: [facility] [address] [place], [address] CBC W/Diff, Automated 9.9 fL Normal 6.2-12.0 Com prehensive Internal Medicine Work Phone: Comment on above: [facility] [address] [place], [address] CBC W/Diff, Automated 52.1 % Normal 47-70 Com prehensive Internal Medicine Work Phone: Comment on above: [facility] [address] [place], [address] CBC W/Diff, Automated 31.4 % Normal 19-41 Com prehensive Internal Medicine Work Phone: Comment on above: [facility] [address] [place], [address] CBC W/Diff, Automated 10.6 % Abnormal 0-10 Com prehensive Internal Medicine Work Phone: Comment on above: [facility] [address] [place], [address] CBC W/Diff, Automated 5.4 % Abnormal 0-5 Com prehensive Internal Medicine Work Phone: Comment on above: [facility] [address] [place], [address] CBC W/Diff, Automated 0.2 % Normal 0-1 Com prehensive Internal Medicine Work Phone: Comment on above: [facility] [address] [place], [place], [phone] CBC W/Diff, Automated 0.300 % Normal 0.0-0.9 [facility] prehensive Internal Medicine Work Phone: Comment on above: IG% - Immature Granu locytes (promyelocytes, myelocytes andmetamyelocytes) > 1% indicates that a LEFT SHIFT is Present. [facility] [address] [place], [place], [phone] CBC W/Diff, Automated 3.1 {X10_3/uL} Normal 2.0-7.7 [facility] Work Phone: Comment on above: [facility] [address] [place], [address] CBC W/Diff, Automated 1.86 {X10_3/ul} Normal 0.83-4.51 [facility] Work Phone: Comment on above: [facility] [address] [place], [address] Calcium,TotalOrdered By: Liat tem Gm on 03-04-2015 Calcium mass conc 8.3 mg/dL Abnormal 8.5-10.1 Compreh ensive Internal Medicine Work Phone: Comment on above: [facility] [address] [place], [address] GlucoseOrdered By: System Benitez parekh on 03-04-2015 Glucose mass conc 99 mg/dL Normal 70-110 Compreh ensive Internal Medicine Work Phone: Comment on above: [facility] [address] [place], [address] Hepatitis C AntibodiesOrdere d By: Washerette Machine Operator on 03-04-2015 Hepatitis C Antibodies <0.1 Normal 0.0-0.9 [facility] Work Phone: Comment on above: Negative: < 0.8 Inde terminate: 0.8 - 0.9 Positive: > 0.9 In order to reduce the incidence of a false positive result, the CDC recommends that all s/co ratios between 1.0 and 10.9 be confirmed by a more specific supplemental or PCR testing. [facility] offers HCV Ab w/Reflex to Verification test #[id number]. [facility] (refer to re port for specific site)refer to report for address and phone number; ordered by sg Lyme AB/Total ImmunoOrdered By: Washerette Machine Operator on 03-04-2015 B. burgdorferi IgG+IgM Qn (S) Normal [facility] Work Phone: Comment on above: TEST RESULT LIMITSLy me, Total Ab Test/ReflexLyme IgG/IgM Ab <0.91 ISR 0.00 - 0.90 Negative <0.91 Equivocal 0.91 - 1.09 Positive >1.09 TESTING PERFORMED AT [facility]. ORIGINAL REPORT ON FILE IN LAB CONTAINS ADDITIONAL TEST SITE INFORMATION. [facility] (refer to re port for specific site)refer to report for address and phone number Protein Electroph, SOrdered By: Washerette Machine Operator on 03-04-2015 Protein Electroph, S Normal Comp rehensive Internal Medicine Work Phone: Comment on above: Not Observed [facility] (refer to re port for specific site)refer to report for address and phone number Protein Electroph, S 1.0 g/dL Normal 0.6-1.3 Comp rehensive Internal Medicine Work Phone: Comment on above: [facility] (refer to re port for specific site)refer to report for address and phone number Protein Electroph, S 0.6 g/dL Normal 0.4-1.2 Comp rehensive Internal Medicine Work Phone: Comment on above: [facility] (refer to re port for specific site)refer to report for address and phone number Protein Electroph, S 0.2 g/dL Normal 0.1-0.4 [facility] Work Phone: Comment on above: [facility] (refer to re port for specific site)refer to report for address and phone number Protein Electroph, S 3.9 g/dL Normal 3.2-5.6 [facility] Work Phone: Comment on above: [facility] (refer to re port for specific site)refer to report for address and phone number Protein Electroph, S 6.5 g/dL Normal 6.0-8.5 [facility] Work Phone: Comment on above: [facility] (refer to re port for specific site)refer to report for address and phone number Protein Electroph, S 2.6 g/dL Normal 2.0-4.5 [facility] Internal Medicine Work Phone: Comment on above: [facility] (refer to re port for specific site)refer to report for address and phone number Protein Electroph, S 1.5 1 Normal 0.7-2.0 [facility] Work Phone: Comment on above: [facility] (refer to re port for specific site)refer to report for address and phone number Protein Electroph, S Comment Normal [facility] Work Phone: Comment on above: Protein electrophore sis scan will follow via computer,mail, or lawn mower operator delivery. [facility] (refer to re port for specific site)refer to report for address and phone number The SPE pattern appe ars essentially unremarkable. Evidenceof monoclonal protein is not apparent. Protein Electroph, S 0.8 g/dL Normal 0.5-1.6 [facility] Work Phone: Comment on above: [facility] (refer to re port for specific site)refer to report for address and phone number Protein, TotalOrdered By: Blas stem Gm on 03-04-2015 Protein mass conc 3.3 g/dL Normal 2.3-3.5 [facility] Internal Medicine Work Phone: Comment on above: [facility] [address] [place], [place], [phone] Protein mass conc 6.9 g/dL Normal 6.4-8.2 Compreh ensive Internal Medicine Work Phone: Comment on above: [facility] [address] [place], [address] Protein mass conc 1.1 {RATIO} Normal 0.9-2.4 Compre hensive Internal Medicine Work Phone: Comment on above: [facility] [address] [place], [place], [phone] Serum Creatinine AND GFROrde red By: Washerette Machine Operator on 03-04-2015 Serum Creatinine AND GFR 96 mL/min Normal [facility] Work Phone: Comment on above: GFR Calc [place] [address] [place], [address] Serum Creatinine AND GFR 79 mL/min Normal [facility] Work Phone: Comment on above: Non- GFR Calc [place] [address] [place], [address] Serum Creatinine AND GFR 1.03 mg/dL Normal 0.70-1.30 [facility] Work Phone: Comment on above: The validity of the calculated GFR AND GFRAA in patients over70 years has not been determined. Clinical correlation isessential. [place] [address] [place], [place], [phone] Thyroid Stim Hormone (TSH)Or dered By: Washerette Machine Operator on 03-04-2015 Thyrotropin Qn 1.34 {uIU/mL} Normal 0.358-3.74 Compreh ensive Internal Medicine Work Phone: Comment on above: [facility] [address] [place], [address] Uric AcidOrdered By: Washerette Machine Operator on 03-04-2015 Urate mass conc 4.7 mg/dL Normal 3.5-7.2 Comprehen sive Internal Medicine Work Phone: Comment on above: [facility] [address] [place], [place], [phone] CBC W/Diff, AutomatedOrdered By: Washerette Machine Operator on 01-22-2015 Absolute Neut 2.1 {X10_3/uL} Normal 2.0-7.7 Compreh ensive Internal Medicine Work Phone: Comment on above: [facility] [address] [place], [place], [phone] Basophils/100 WBC (Bld) 0.2 % Normal 0-1 C omprehensive Internal Medicine Work Phone: Comment on above: [facility] [address] [place], [address] Eosinophils/100 WBC (Bld) 8.4 % Abnormal 0-5 [facility] Work Phone: Comment on above: [facility] [address] [place], [place], [phone] Erythrocyte distribution width Ratio (RBC) 14.6 % Normal 11.6-14.6 [facility] Work Phone: Comment on above: [facility] [address] [place], [place], [phone] Hematocrit Volume Fraction (Bld) 42.2 % Normal 40-54 [facility] Work Phone: Comment on above: [facility] [address] [place], [place], [phone] Hemoglobin mass conc (Bld) 13.8 g/dL Normal 13.0-16.5 [facility] Work Phone: Comment on above: [facility] [address] [place], [place], [phone]) IM GRAN % 0.200 % Normal 0.0-0.9 [facility] Work Phone: Comment on above: IG% - Immature Granu locytes (promyelocytes, myelocytes andmetamyelocytes) > 1% indicates that a LEFT SHIFT is Present. [facility] [address] [place], [address] Lymphocytes #/vol (Bld) 1.45 {X10_3/ul} Normal 0.83-4. 51 [facility] Work Phone: Comment on above: [facility] [address] [place], [address] Lymphocytes/100 WBC (Bld) 32.2 % Normal 19-41 [facility] Work Phone: Comment on above: [facility] [address] [place], [address] MCH Entitic mass (RBC) 30.7 pg Normal 27.0-32.0 [facility] Internal [facility] Work Phone: Comment on above: [facility] [address] [place], [address] MCHC mass conc (RBC) 32.7 {g/gl} Normal 32-36 [facility] prehensive Internal Medicine Work Phone: Comment on above: [facility] [address] [place], [address] MCV Entitic volume (RBC) 94.0 fL Normal 80-94 [facility] Work Phone: Comment on above: [facility] [address] [place], [address] Monocytes/100 WBC (Bld) 11.3 % Abnormal 0-10 [facility] Internal [facility] Work Phone: Comment on above: [facility] [address] [place], [address] Neutrophils/100 WBC (Bld) 47.7 % Normal 47-70 [facility] Work Phone: Comment on above: [facility] [address] [place], [place], [phone] Platelet mean volume Entitic volume (Bld) 9.8 fL Normal 6.2-12.0 Comprehensi Internal Medicine Work Phone: Comment on above: [facility] [address] [place], [place], [phone] Platelets #/vol (Bld) 203 10*3/uL Normal 150-450 [facility] Internal [facility] Work Phone: Comment on above: [facility] [address] [place], [place], [phone] RBC #/vol (Bld) 4.49 {M/mm3} Abnormal 4.6-6.2 Compreh ensive Internal Medicine Work Phone: Comment on above: [facility] [address] [place], [place], [phone] RDW SD 48.2 fL Abnormal 35.1-43.9 [facility] Work Phone: Comment on above: [facility] [address] [place], [place], [phone] WBC #/vol (Bld) 4.5 10*3/uL Normal 4.4-11.0 Comprehe nsive Internal Medicine Work Phone: Comment on above: [facility] [address] [place], [place], [phone] CBC W/Diff, Automated 94.0 fL Normal 80-94 [facility] prehensive Internal Medicine Work Phone: Comment on above: [facility] [address] [place], [place], [phone] CBC W/Diff, Automated 13.8 g/dL Normal 13.0-16.5 [facility] prehensive Internal Medicine Work Phone: Comment on above: [facility] [address] [place], [place], [phone] CBC W/Diff, Automated 4.49 {M/mm3} Abnormal 4.6-6.2 [facility] Internal Medicine Work Phone: Comment on above: [facility] [address] [place], [address] CBC W/Diff, Automated 30.7 pg Normal 27.0-32.0 Com prehensive Internal Medicine Work Phone: Comment on above: [facility] [address] [place], [address] CBC W/Diff, Automated 4.5 K/mm3 Normal 4.4-11.0 [facility] prehensive Internal Medicine Work Phone: Comment on above: [facility] [address] [place], [address] CBC W/Diff, Automated 42.2 % Normal 40-54 [facility] prehensive Internal Medicine Work Phone: Comment on above: [facility] [address] [place], [address] CBC W/Diff, Automated 32.7 {g/gl} Normal 32-36 [facility] Work Phone: Comment on above: [facility] [address] [place], [address] CBC W/Diff, Automated 48.2 fL Abnormal 35.1-43.9 [facility] prehensive Internal Medicine Work Phone: Comment on above: [facility] [address] [place], [address] CBC W/Diff, Automated 203 K/mm3 Normal 150-450 Com prehensive Internal Medicine Work Phone: Comment on above: [facility] [address] [place], [address] CBC W/Diff, Automated 9.8 fL Normal 6.2-12.0 [facility] prehensive Internal Medicine Work Phone: Comment on above: [facility] [address] [place], [place], [id number] CBC W/Diff, Automated 47.7 % Normal 47-70 [facility] prehensive Internal Medicine Work Phone: Comment on above: [facility] [address] [place], [place], [id number] CBC W/Diff, Automated 32.2 % Normal 19-41 [facility] prehensive Internal Medicine Work Phone: Comment on above: [facility] [address] [place], [place], [id number] CBC W/Diff, Automated 11.3 % Abnormal 0-10 [facility] prehensive Internal Medicine Work Phone: Comment on above: [facility] [address] [place], [place], [id number] CBC W/Diff, Automated 8.4 % Abnormal 0-5 [facility] prehensive Internal Medicine Work Phone: Comment on above: [facility] [address] [place], [place], [id number] CBC W/Diff, Automated 0.2 % Normal 0-1 [facility] prehensive Internal Medicine Work Phone: Comment on above: [facility] [address] [place], [place], [id number] CBC W/Diff, Automated 0.200 % Normal 0.0-0.9 [facility] prehensive Internal Medicine Work Phone: Comment on above: IG% - Immature Granu locytes (promyelocytes, myelocytes andmetamyelocytes) > 1% indicates that a LEFT SHIFT is Present. [facility] [address] [place], [place], [id number] CBC W/Diff, Automated 2.1 {X10_3/uL} Normal 2.0-7.7 [facility] Work Phone: Comment on above: [facility] [address] [place], [place], [id number] CBC W/Diff, Automated 1.45 {X10_3/ul} Normal 0.83-4.51 [facility] Work Phone: Comment on above: [facility] [address] [place], [address] CBC W/Diff, Automated 14.6 % Normal 11.6-14.6 [facility] prehensive Internal Medicine Work Phone: Comment on above: [facility] [address] [place], [address] Comprehensive Metabolic Prof ilOrdered By: Washerette Machine Operator on 01-22-2015 Comprehensive metabolic 2000 panel 8.4 mg/dL Abnormal 8.5-10.1 [facility] Work Phone: Comment on above: ORDERED PSA, CMP,CBCD,UACDR.TOM ORDERED CBCD,[facility] [address] [place], [place], [phone] Comprehensive metabolic 2000 panel 61 U/L Normal 50-136 [facility] Work Phone: Comment on above: ORDERED PSA, CMP,CBCD,UACDR.TOM ORDERED CBCD,[facility] [address] [place], [address] Comprehensive metabolic 2000 panel 21 U/L Normal 15-37 [facility] Work Phone: Comment on above: ORDERED PSA, CMP,CBCD,UACDR.TOM ORDERED CBCD,[facility] [address] [place], [address] Comprehensive metabolic 2000 panel 1.1 {RATIO} Normal 0.9-2.4 [facility] Work Phone: Comment on above: ORDERED PSA, CMP,CBCD,UACDR.TOM ORDERED [facility] [address]ynb[address] [place], [place], [phone] Comprehensive metabolic 2000 panel 3.6 g/dL Normal 3.4-5.0 [facility] Work Phone: Comment on above: ORDERED PSA, CMP,CBCD,UACDR.TOM ORDERED CBCD,[facility] Ltweavmuaf[address] [place], [place], [phone] Comprehensive metabolic 2000 panel 3.2 g/dL Normal 2.3-3.5 [facility] Work Phone: Comment on above: ORDERED PSA, CMP,CBCD,UACDR.TOM ORDERED CBCD,[facility] [address] [place], [place], [id number] Comprehensive metabolic 2000 panel 97 mg/dL Normal 70-110 [facility] Work Phone: Comment on above: ORDERED PSA, CMP,CBCD,UACDR.TOM ORDERED CBCD,[facility] [address] [place], [address] Comprehensive metabolic 2000 panel 15 mg/dL Normal 7-18 [facility] Work Phone: Comment on above: ORDERED PSA, CMP,CBCD,UACDR.TOM ORDERED CBCD,[facility] [address] [place], [place], [phone] Comprehensive metabolic 2000 panel 0.99 mg/dL Normal 0.70-1.30 [facility] Work Phone: Comment on above: The validity of the calculated GFR AND GFRAA in patients over70 years has not been determined. Clinical correlation isessential. ORDERED PSA, CMP,CBCD,UACDR.TOM ORDERED CBCD,[facility] [address] [place], [place], [phone] Comprehensive metabolic 2000 panel 83 mL/min Normal [facility] Work Phone: Comment on above: Non- GFR Calc ORDERED PSA, CMP,CBCD,UACDR.TOM ORDERED CBCD,[facility] [address] [place], [place], [id number] Comprehensive metabolic 2000 panel 104 mmol/L Normal 98-107 [facility] Work Phone: Comment on above: ORDERED PSA, CMP,CBCD,UACDR.TOM ORDERED CBCD,[facility] [address] [place], [place], [phone] Comprehensive metabolic 2000 panel 100 mL/min Normal [facility] Work Phone: Comment on above: GFR Calc ORDERED PSA, CMP,CBCD,UACDR.TOM ORDERED CBCD,[facility] [address] [place], [place], [phone] Comprehensive metabolic 2000 panel 15.1 {RATIO} Normal 10-20 [facility] Work Phone: Comment on above: ORDERED PSA, CMP,CBCD,UACDR.TOM ORDERED CBCD,[facility] [address] [place], [address] Comprehensive metabolic 2000 panel 6.8 g/dL Normal 6.4-8.2 [facility] Work Phone: Comment on above: ORDERED PSA, CMP,CBCD,UACDR.TOM ORDERED CBCD,[facility] [address] [place], [address] Comprehensive metabolic 2000 panel 4.1 mmol/L Normal 3.5-5.1 [facility] Work Phone: Comment on above: ORDERED PSA, CMP,CBCD,UACDR.TOM ORDERED CBCD,[facility] [address] [place], [place], [id number] Comprehensive metabolic 2000 panel 142 mmol/L Normal 136-145 [facility] Work Phone: Comment on above: ORDERED PSA, CMP,CBCD,UACDR.TOM ORDERED CBCD,[facility] [address] [place], [place], [id number] Comprehensive metabolic 2000 panel 0.50 mg/dL Normal 0.20-1.00 [facility] Work Phone: Comment on above: ORDERED PSA, CMP,CBCD,UACDR.TOM ORDERED CBCD,[facility] [address] [place], [address] Comprehensive metabolic 2000 panel 6 1 Normal 5-15 [facility] Work Phone: Comment on above: ORDERED PSA, CMP,CBCD,UACDR.TOM ORDERED CBCD,[facility] [address] [place], [address] Comprehensive metabolic 2000 panel 37 U/L Normal 12-78 [facility] Work Phone: Comment on above: ORDERED PSA, CMP,CBCD,UACDR.TOM ORDERED CBCD,[facility] [address] [place], [address] Comprehensive metabolic 2000 panel 32.0 mmol/L Normal 21.0-32.0 [facility] Work Phone: Comment on above: ORDERED PSA, CMP,CBCD,UACDR.TOM ORDERED CBCD,[facility] [address] [place], [address] PSA,Total - Annual ScreenOrd ered By: Washerette Machine Operator on 01-22-2015 Prostate specific Ag mass conc 0.55 ng/mL Normal 0.00-4.00 [facility] Work Phone: Comment on above: This test was perfor med using the TPSA assay method for the[employer] system. Values obtained with differentassay methods cannot be used interchangably.When changing PSA assays in the course of monitoring apatient, additional sequential testing should be carriedout to confirm baseline values. ORDERED PSA, CMP,CBCD,UACDR.TOM ORDERED CBCD,[facility] [address] [place], [place], [id number] Urinalysis, CompleteOrdered By: Washerette Machine Operator on 01-22-2015 Protein mass conc (U) Negative Normal Com prehensive Internal Medicine Work Phone: Comment on above: How was Urine Obtain ed? [facility] [address]ow[address] [place], [place], [phone] RBC #/vol (U) 0 SEEN Normal 0-5 Comprehensi ve Internal Medicine Work Phone: Comment on above: How was Urine Obtain ed? [facility] [address]feat[address] [place], [place], [phone] Urinalysis complete panel - Urine 6 mg/dL Abnormal [facility] Work Phone: Comment on above: COLOR OF URINE MAY A FFECT DIPSTICK RESULTS. How was Urine Obtain ed? [facility] [address]wkf[address] [place], [place], [id number] Urinalysis complete panel - Urine 1.010 1 Normal 1.002-1.03 0 [facility] Work Phone: Comment on above: How was Urine Obtain ed? [facility] [address]vbnm[address] [place], [place], [id number] Urinalysis complete panel - Urine Negative Normal [facility] Work Phone: Comment on above: How was Urine Obtain ed? [facility] [address]ern[address] [place], [address] Urinalysis complete panel - Urine Normal Normal [facility] Work Phone: Comment on above: How was Urine Obtain ed? [facility] [address]asfmov[address] [place], [address] Urinalysis complete panel - Urine Clear Normal [facility] Work Phone: Comment on above: How was Urine Obtain ed? [facility] X[address] [place], [phone] Urinalysis complete panel - Urine 1+ Normal [facility] Work Phone: Comment on above: How was Urine Obtain ed? [facility] [address] [place], [address] Urinalysis complete panel - Urine RARE Normal [facility] Work Phone: Comment on above: How was Urine Obtain ed? [facility] [address]ltr[address] [place], [place], [phone] Urinalysis complete panel - Urine 0-5 SEEN Normal 0-5 [facility] Work Phone: Comment on above: How was Urine Obtain ed? [facility] [address] [place], [place], [phone] Urinalysis complete panel - Urine 25 /ul Abnormal [facility] Work Phone: Comment on above: How was Urine Obtain ed? [facility] [address] [place], [address] Urinalysis complete panel - Urine 6.5 1 Normal 5.0 - 8.0 [facility] Work Phone: Comment on above: How was Urine Obtain ed? [facility] [address]owbf[address] [place], [place], [phone] Urinalysis complete panel - Urine Yellow Normal [facility] Work Phone: Comment on above: How was Urine Obtain ed? [facility] [address] [place], [place], [id number] CBC W/Diff, AutomatedOrdered By: Washerette Machine Operator on 10-11-2014 Absolute Neut 3.0 {X10_3/uL} Normal 2.0-7.7 Compreh ensive Internal Medicine Work Phone: Comment on above: Test performed at:[facility] [address] [place] [address] Basophils/100 WBC (Bld) 0.3 % Normal 0-1 C omprehensive Internal Medicine Work Phone: Comment on above: Test performed at:[facility] [address] [place] [address] Eosinophils/100 WBC (Bld) 6.1 % Abnormal 0-5 [facility] Work Phone: Comment on above: Test performed at:[facility] [address] [place] [address] Erythrocyte distribution width Ratio (RBC) 14.4 % Normal 11.6-14.6 [facility] Work Phone: Comment on above: Test performed at:[facility] [address] [place] [address] Hematocrit Volume Fraction (Bld) 40.1 % Normal 40-54 [facility] Work Phone: Comment on above: Test performed at:[facility] [address] [place] [address] Hemoglobin mass conc (Bld) 13.3 g/dL Normal 13.0-16.5 [facility] Work Phone: Comment on above: Test performed at:[facility] [address] [place] [address] IM GRAN % 0.200 % Normal 0.0-0.9 [facility] Work Phone: Comment on above: IG% - Immature Granu locytes (promyelocytes, myelocytes andmetamyelocytes) > 1% indicates that a LEFT SHIFT is Present. Test performed at:[facility] [address] [place] [address] Lymphocytes #/vol (Bld) 1.96 {X10_3/ul} Normal 0.83-4. 51 [facility] Work Phone: Comment on above: Test performed at:[facility] [address] [place] [address] Lymphocytes/100 WBC (Bld) 32.9 % Normal 19-41 [facility] Work Phone: Comment on above: Test performed at:[facility] [address] [place] [address] MCH Entitic mass (RBC) 30.6 pg Normal 27.0-32.0 [facility] Work Phone: Comment on above: Test performed at:[facility] [address] [place] [address] MCHC mass conc (RBC) 33.2 {g/gl} Normal 32-36 [facility] prehensive Internal Medicine Work Phone: Comment on above: Test performed at:[facility] [address] [place] [address] MCV Entitic volume (RBC) 92.2 fL Normal 80-94 [facility] Work Phone: Comment on above: Test performed at:[facility] [address] [place] [address] Monocytes/100 WBC (Bld) 10.9 % Abnormal 0-10 C ompfostoria city hospitalensive [facility] Work Phone: Comment on above: Test performed at:[facility] [address] [place] [address] Neutrophils/100 WBC (Bld) 49.6 % Normal 47-70 [facility] Work Phone: Comment on above: Test performed at:[facility] [address] [place] [address] Platelet mean volume Entitic volume (Bld) 10.1 fL Normal 6.2-12.0 Comprehensi Internal Medicine Work Phone: Comment on above: Test performed at:[facility] [address] [place] [address] Platelets #/vol (Bld) 218 10*3/uL Normal 150-450 Co mprehensive Internal Medicine Work Phone: Comment on above: Test performed at:[facility] [address] [place] [address] RBC #/vol (Bld) 4.35 {M/mm3} Abnormal 4.6-6.2 Compreh ensive Internal Medicine Work Phone: Comment on above: Test performed at:[facility] [address] [place] [address] RDW SD 47.2 fL Abnormal 35.1-43.9 [facility] Work Phone: Comment on above: Test performed at:[facility] [address] [place] [address] WBC #/vol (Bld) 6.0 10*3/uL Normal 4.4-11.0 Comprehe nsive Internal Medicine Work Phone: Comment on above: Test performed at:[facility] [address] [place] [address] CBC W/Diff, Automated 1.96 {X10_3/ul} Normal 0.83-4.51 [facility] Work Phone: Comment on above: Test performed at:[facility] [address] [place] [address] CBC W/Diff, Automated 218 K/mm3 Normal 150-450 Com prehensive Internal Medicine Work Phone: Comment on above: Test performed at:[facility] [address] [place] [address] CBC W/Diff, Automated 3.0 {X10_3/uL} Normal 2.0-7.7 [facility] Work Phone: Comment on above: Test performed at:[facility] [address] [place] [address] CBC W/Diff, Automated 0.200 % Normal 0.0-0.9 Com prehensive Internal Medicine Work Phone: Comment on above: IG% - Immature Granu locytes (promyelocytes, myelocytes andmetamyelocytes) > 1% indicates that a LEFT SHIFT is Present. Test performed at:[facility] [address] [place] [address] CBC W/Diff, Automated 0.3 % Normal 0-1 Com prehensive Internal Medicine Work Phone: Comment on above: Test performed at:[facility] [address] [place] [address] CBC W/Diff, Automated 6.1 % Abnormal 0-5 Com prehensive Internal Medicine Work Phone: Comment on above: Test performed at:[facility] [address] [place] [address] CBC W/Diff, Automated 10.9 % Abnormal 0-10 [facility] prehensive Internal Medicine Work Phone: Comment on above: Test performed at:[facility] [address] [place] [address] CBC W/Diff, Automated 32.9 % Normal 19-41 Com prehensive Internal Medicine Work Phone: Comment on above: Test performed at:[facility] [address] [place] [address] CBC W/Diff, Automated 49.6 % Normal 47-70 Com prehensive Internal Medicine Work Phone: Comment on above: Test performed at:[facility] [address] [place] [address] CBC W/Diff, Automated 10.1 fL Normal 6.2-12.0 Com prehensive Internal Medicine Work Phone: Comment on above: Test performed at:[facility] [address] [place] [address] CBC W/Diff, Automated 4.35 {M/mm3} Abnormal 4.6-6.2 C omprehensive Internal Medicine Work Phone: Comment on above: Test performed at:[facility] [address] [place] [address] CBC W/Diff, Automated 47.2 fL Abnormal 35.1-43.9 Com prehensive Internal Medicine Work Phone: Comment on above: Test performed at:[facility] [address] [place] [address] CBC W/Diff, Automated 14.4 % Normal 11.6-14.6 Com prehensive Internal Medicine Work Phone: Comment on above: Test performed at:[facility] [address] [place] [address] CBC W/Diff, Automated 33.2 {g/gl} Normal 32-36 [facility] Work Phone: Comment on above: Test performed at:[facility] [address] [place] [address] CBC W/Diff, Automated 30.6 pg Normal 27.0-32.0 Com prehensive Internal Medicine Work Phone: Comment on above: Test performed at:[facility] [address] [place] [address] CBC W/Diff, Automated 92.2 fL Normal 80-94 Com prehensive Internal Medicine Work Phone: Comment on above: Test performed at:[facility] [address] [place] [address] CBC W/Diff, Automated 40.1 % Normal 40-54 Com prehensive Internal Medicine Work Phone: Comment on above: Test performed at:[facility] [address] [place] [address] CBC W/Diff, Automated 13.3 g/dL Normal 13.0-16.5 [facility] prehensive Internal Medicine Work Phone: Comment on above: Test performed at:[facility] [address] [place], [place] [address] CBC W/Diff, Automated 6.0 K/mm3 Normal 4.4-11.0 [facility] prehensive Internal Medicine Work Phone: Comment on above: Test performed at:[facility] [address] [place] [address] Comprehensive Metabolic Prof ilOrdered By: Washerette Machine Operator on 10-11-2014 Comprehensive metabolic 2000 panel 19 mg/dL Abnormal 7-18 [facility] Work Phone: Comment on above: Test performed at:[facility] [address] [place] [address] ; handled by [employer] [place] Comprehensive metabolic 2000 panel 8.7 mg/dL Normal 8.5-10.1 [facility] Work Phone: Comment on above: Test performed at:[facility] [address]xas[address] [place] [address] ; handled by [employer] [place] Comprehensive metabolic 2000 panel 1.2 {RATIO} Normal 0.9-2.4 [facility] Work Phone: Comment on above: Test performed at:[facility] [address] [place] [address] ; handled by [employer] Comprehensive metabolic 2000 panel 3.1 g/dL Normal 2.3-3.5 [facility] Work Phone: Comment on above: Test performed at:[facility] [address] [place] [address] ; handled by [employer] [place] Comprehensive metabolic 2000 panel 24 U/L Normal 15-37 [facility] Work Phone: Comment on above: Test performed at:[facility] [address] [place] [address] ; handled by [employer] Comprehensive metabolic 2000 panel 104 mmol/L Normal 98-107 [facility] Work Phone: Comment on above: Test performed at:[facility] [address] [place] [address] ; handled by [employer] Comprehensive metabolic 2000 panel 67 U/L Normal 50-136 [facility] Work Phone: Comment on above: Test performed at:[facility] [address] [place] [address] ; handled by [employer] Comprehensive metabolic 2000 panel 93 mg/dL Normal 70-110 [facility] Work Phone: Comment on above: Test performed at:[facility] [address] [place] [address] ; handled by [employer] [place] Comprehensive metabolic 2000 panel 0.96 mg/dL Normal 0.70-1.30 [facility] Work Phone: Comment on above: Please note revised CREATININE reference range asicpnxth91/22/2015. Test performed at:[facility] [address] [place] [address] ; handled by [employer] [place] Comprehensive metabolic 2000 panel 104 mL/min Normal [facility] Work Phone: Comment on above: Test performed at:[facility] [address] [place] [address] ; handled by [employer] [place] Comprehensive metabolic 2000 panel 86 mL/min Normal [facility] Work Phone: Comment on above: Test performed at:[facility] [address] [place] [address] ; handled by [employer] [place] Comprehensive metabolic 2000 panel 28 U/L Normal 12-78 [facility] Work Phone: Comment on above: Test performed at:[facility] [address] [place] [address] ; handled by [employer] metabolic 2000 panel 19.8 {RATIO} Normal 10-20 [facility] Work Phone: Comment on above: Test performed at:[facility] [address] [place] [address] ; handled by [employer] metabolic 2000 panel 3.7 g/dL Normal 3.4-5.0 [facility] Work Phone: Comment on above: Test performed at:[facility] [address] [place] [address] ; handled by [employer] metabolic 2000 panel 4 1 Abnormal 5-15 [facility] Work Phone: Comment on above: Test performed at:[facility] [address] [place] [address] ; handled by [employer] metabolic 2000 panel 0.30 mg/dL Normal 0.20-1.00 [facility] Work Phone: Comment on above: Test performed at:[facility] [address] [place] [address] ; handled by [employer] metabolic 2000 panel 6.8 g/dL Normal 6.4-8.2 [facility] Work Phone: Comment on above: Test performed at:[facility] [address] [place] [address] ; handled by [employer] metabolic 2000 panel 138 mmol/L Normal 136-145 [facility] Work Phone: Comment on above: Test performed at:[facility] [address] [place] [address] ; handled by [employer] metabolic 2000 panel 4.0 mmol/L Normal 3.5-5.1 [facility] Work Phone: Comment on above: Test performed at:[facility] [address] [place], [place] [address] ; handled by [employer] Comprehensive metabolic 2000 panel 30.0 mmol/L Normal 21.0-32.0 [facility] Internal Medicine Work Phone: Comment on above: Test performed at:[facility] [address] [place], [place] [id number] ; handled by [employer] Liver ProfileOrdered By: Liat tem Gm on 07-13-2014 Albumin mass conc 3.8 g/dL Normal 3.4-5.0 [facility] Internal Medicine Work Phone: Comment on above: Test performed at:[facility] [address] [place] [address] ; ordered by Dr. Linares ALP enzyme act/vol 63 U/L Normal 50-136 [facility] Internal Medicine Work Phone: Comment on above: Test performed at:[facility] [address]cl[address] [place] [address] ; ordered by Dr. Linares ALT enzyme act/vol 34 U/L Normal 12-78 [facility] Internal Medicine Work Phone: Comment on above: Test performed at:[facility] [address] [place], [place] [id number] ; ordered by Dr. Linares AST enzyme act/vol 27 U/L Normal 15-37 [facility] Internal Medicine Work Phone: Comment on above: Test performed at:[facility] [address] [place] [address] ; ordered by Dr. Linares Bilirubin mass conc 0.30 mg/dL Normal 0.00-4.00 [facility] Internal Medicine Work Phone: Comment on above: Test performed at:[facility] [address] [place], [place] [id number] ; ordered by Dr. Linares Bilirubin.direct mass conc 0.11 mg/dL Normal 0.00-0.30 [facility] Internal Medicine Work Phone: Comment on above: Test performed at:[facility] [address] [place] [address] ; ordered by Dr. Linares Globulin mass conc (S) 3.1 g/dL Normal 2.7-4.2 [facility] Internal Medicine Work Phone: Comment on above: Test performed at:[facility] [address] [place] [address] ; ordered by Dr. Linares Hepatic function 1999 panel - Serum or Plasma 6.9 g/dL Normal 6.4-8.2 Comprehe nsive Internal Medicine Work Phone: Comment on above: Test performed at:[facility] [address] [place] [address] ; ordered by Dr. Linares Hepatic function 1999 panel - Serum or Plasma 63 U/L Normal 50-136 Comprehe nsive Internal Medicine Work Phone: Comment on above: Test performed at:[facility] [address] [place] [address] ; ordered by Dr. Linares Protein mass conc 6.9 g/dL Normal 6.4-8.2 Compreh ensive Internal Medicine Work Phone: Comment on above: Test performed at:[facility] [address] [place] [address] ; ordered by Dr. Linares CBC W/Diff, AutomatedOrdered By: [employer] on 03-23-2014 Absolute Neut 3.3 {X10_3/uL} Normal 2.0-7.7 Compreh ensive Internal Medicine Work Phone: Comment on above: Test performed at:[facility] [address]rx[address] [place], [place] [id number] Basophils/100 WBC (Bld) 0.3 % Normal 0-1 [facility] Internal Medicine Work Phone: Comment on above: Test performed at:[facility] [address] [place] [address] Eosinophils/100 WBC (Bld) 4.0 % Normal 0-5 [facility] Medicine Work Phone: Comment on above: Test performed at:[facility] [address] [place] [address] Erythrocyte distribution width Ratio (RBC) 14.3 % Normal 11.6-14.6 [facility] Medicine Work Phone: Comment on above: Test performed at:[facility] [address] [place] [address] Hematocrit Volume Fraction (Bld) 41.2 % Normal 40-54 [facility] Medicine Work Phone: Comment on above: Test performed at:[facility] [address] [place] [address] Hemoglobin mass conc (Bld) 13.2 g/dL Normal 13.0-16.5 [facility] Medicine Work Phone: Comment on above: Test performed at:[facility] [address] [place] [address] IM GRAN % 0.200 % Normal 0.0-0.9 [facility] Medicine Work Phone: Comment on above: IG% - Immature Granu locytes (promyelocytes, myelocytes andmetamyelocytes) > 1% indicates that a LEFT SHIFT is Present. Test performed at:[facility] [address] [place] [address] Lymphocytes #/vol (Bld) 2.16 {X10_3/ul} Normal 0.83-4. 51 [facility] Medicine Work Phone: Comment on above: Test performed at:[facility] [address] [place] [address] Lymphocytes/100 WBC (Bld) 34.8 % Normal 19-41 [facility] Medicine Work Phone: Comment on above: Test performed at:[facility] [address] [place] [address] MCH Entitic mass (RBC) 29.9 pg Normal 27.0-32.0 [facility] Work Phone: Comment on above: Test performed at:[facility] [address] [place] [address] MCHC mass conc (RBC) 32.0 {g/gl} Normal 32-36 Com prehensive Internal Medicine Work Phone: Comment on above: Test performed at:[facility] [address] [place] [address] MCV Entitic volume (RBC) 93.2 fL Normal 80-94 [facility] Medicine Work Phone: Comment on above: Test performed at:[facility] [address] [place] [address] Monocytes/100 WBC (Bld) 7.2 % Normal 0-10 [facility] Work Phone: Comment on above: Test performed at:[facility] [address] [place] [address] Neutrophils/100 WBC (Bld) 53.5 % Normal 47-70 [facility] Internal Medicine Work Phone: Comment on above: Test performed at:[facility] [address] [place] [address] Platelet mean volume Entitic volume (Bld) 9.4 fL Normal 6.2-12.0 Comprehensi Internal Medicine Work Phone: Comment on above: Test performed at:[facility] [address] [place] [address] Platelets #/vol (Bld) 176 10*3/uL Normal 150-450 [facility] Work Phone: Comment on above: Test performed at:[facility] [address] [place] [address] RBC #/vol (Bld) 4.42 {M/mm3} Abnormal 4.6-6.2 Compreh ensive Internal Medicine Work Phone: Comment on above: Test performed at:[facility] [address] [place] [address] RDW SD 48.4 fL Abnormal 35.1-43.9 [facility] Medicine Work Phone: Comment on above: Test performed at:[facility] [address] [place] [address] WBC #/vol (Bld) 6.2 10*3/uL Normal 4.4-11.0 Comprehe nsive Internal Medicine Work Phone: Comment on above: Test performed at:[facility] [address] [place] [address] CBC W/Diff, Automated 0.200 % Normal 0.0-0.9 Com prehensive Internal Medicine Work Phone: Comment on above: IG% - Immature Granu locytes (promyelocytes, myelocytes andmetamyelocytes) > 1% indicates that a LEFT SHIFT is Present. Test performed at:[facility] [address] [place] [address] CBC W/Diff, Automated 4.0 % Normal 0-5 Com prehensive Internal Medicine Work Phone: Comment on above: Test performed at:[facility] [address] [place] [address] CBC W/Diff, Automated 7.2 % Normal 0-10 Com prehensive Internal Medicine Work Phone: Comment on above: Test performed at:[facility] [address] [place] [address] CBC W/Diff, Automated 34.8 % Normal 19-41 Com prehensive Internal Medicine Work Phone: Comment on above: Test performed at:[facility] [address] [place] [address] CBC W/Diff, Automated 53.5 % Normal 47-70 [facility] prehensive Internal Medicine Work Phone: Comment on above: Test performed at:[facility] [address] [place] [address] CBC W/Diff, Automated 3.3 {X10_3/uL} Normal 2.0-7.7 [facility] Medicine Work Phone: Comment on above: Test performed at:[facility] [address] [place] [address] CBC W/Diff, Automated 2.16 {X10_3/ul} Normal 0.83-4.51 [facility] Medicine Work Phone: Comment on above: Test performed at:[facility] [address] [place] [address] CBC W/Diff, Automated 9.4 fL Normal 6.2-12.0 [facility] prehensive Internal Medicine Work Phone: Comment on above: Test performed at:[facility] [address] [place] [address] CBC W/Diff, Automated 176 K/mm3 Normal 150-450 [facility] prehensive Internal Medicine Work Phone: Comment on above: Test performed at:[facility] [address] [place] [address] CBC W/Diff, Automated 48.4 fL Abnormal 35.1-43.9 [facility] prehensive Internal Medicine Work Phone: Comment on above: Test performed at:[facility] [address] [place] [address] CBC W/Diff, Automated 14.3 % Normal 11.6-14.6 [facility] prehensive Internal Medicine Work Phone: Comment on above: Test performed at:[facility] [address] [place] [address] CBC W/Diff, Automated 32.0 {g/gl} Normal 32-36 [facility] Work Phone: Comment on above: Test performed at:[facility] [address] [place] [address] CBC W/Diff, Automated 29.9 pg Normal 27.0-32.0 [facility] prehensive Internal Medicine Work Phone: Comment on above: Test performed at:[facility] [address] [place] [address] CBC W/Diff, Automated 93.2 fL Normal 80-94 Com prehensive Internal Medicine Work Phone: Comment on above: Test performed at:[facility] [address] [place] [address] CBC W/Diff, Automated 13.2 g/dL Normal 13.0-16.5 [facility] prehensive Internal Medicine Work Phone: Comment on above: Test performed at:[facility] [address] [place] [address] CBC W/Diff, Automated 6.2 K/mm3 Normal 4.4-11.0 [facility] prehensive Internal Medicine Work Phone: Comment on above: Test performed at:[facility] [address] [place] [address] CBC W/Diff, Automated 0.3 % Normal 0-1 [facility] prehensive Internal Medicine Work Phone: Comment on above: Test performed at:[facility] [address] [place] [address] CBC W/Diff, Automated 41.2 % Normal 40-54 Com prehensive Internal Medicine Work Phone: Comment on above: Test performed at:[facility] [address] [place] [address] CBC W/Diff, Automated 4.42 {M/mm3} Abnormal 4.6-6.2 [facility] Work Phone: Comment on above: Test performed at:[facility] [address] [place] [address] Comprehensive Metabolic Prof ilOrdered By: [employer] Machine Operator on 03-23-2014 Comprehensive Metabolic Profil 105 mmol/L Normal 98-107 [facility] Internal Medicine Work Phone: Comment on above: Test performed at:[facility] [address] [place], [place] [id number] ; handled by vellenki Comprehensive Metabolic Profil 3.6 mmol/L Normal 3.5-5.1 [facility] Internal Medicine Work Phone: Comment on above: Test performed at:[facility] [address] [place] [address] ; handled by vellenki Comprehensive Metabolic Profil 3 1 Abnormal 5-15 [facility] Internal Medicine Work Phone: Comment on above: Test performed at:[facility] [address] [place], [place] [id number] ; handled by vellenki Comprehensive Metabolic Profil 29.0 mmol/L Normal 21.0-32.0 [facility] Internal Medicine Work Phone: Comment on above: Test performed at:[facility] [address] [place], [place] [id number] ; handled by vellenki Comprehensive Metabolic Profil 138 mg/dL Abnormal 70-110 [facility] Internal Medicine Work Phone: Comment on above: Fasting Glucose resu lt greater than or equal to 126 mg/dLsuggests DIABETES MELLITUS per A.D.A. criteria. Test performed at:[facility] [address] [place], [place] [id number] ; handled by vellenki Comprehensive Metabolic Profil 137 mmol/L Normal 136-145 [facility] Internal Medicine Work Phone: Comment on above: Test performed at:[facility] [address] [place], [place] [id number] ; handled by vellenki Comprehensive Metabolic Profil 0.30 mg/dL Normal 0.00-4.00 [facility] Medicine Work Phone: Comment on above: Test performed at:[facility] [address] [place] [address] ; handled by vellenki Comprehensive Metabolic Profil 33 U/L Normal 12-78 [facility] Internal Medicine Work Phone: Comment on above: Test performed at:[facility] [address] [place] [address] ; handled by vellenki Comprehensive Metabolic Profil 65 U/L Normal 50-136 [facility] Medicine Work Phone: Comment on above: Test performed at:[facility] [address] [place] [address] ; handled by vellenki Comprehensive Metabolic Profil 18 U/L Normal 15-37 [facility] Internal Medicine Work Phone: Comment on above: Test performed at:[facility] [address] [place] [address] ; handled by vellenki Comprehensive Metabolic Profil 8.2 mg/dL Abnormal 8.5-10.1 [facility] Internal Medicine Work Phone: Comment on above: Test performed at:[facility] [address] [place] [address] ; handled by vellenki Comprehensive Metabolic Profil 1.1 {RATIO} Normal 0.9-2.4 [facility] Internal Medicine Work Phone: Comment on above: Test performed at:[facility] [address] [place] [address] ; handled by vellenki Comprehensive Metabolic Profil 3.3 g/dL Normal 2.7-4.2 [facility] Internal Medicine Work Phone: Comment on above: Test performed at:[facility] [address] [place] [address] ; handled by vellenki Comprehensive Metabolic Profil 3.6 g/dL Normal 3.4-5.0 [facility] Internal Medicine Work Phone: Comment on above: Test performed at:[facility] [address] [place] [address] ; handled by [employer] Comprehensive Metabolic Profil 6.9 g/dL Normal 6.4-8.2 [facility] Internal Medicine Work Phone: Comment on above: Test performed at:[facility] [address] [place] [address] ; handled by [employer] Comprehensive Metabolic Profil 17.0 {RATIO} Normal 10-20 [facility] Internal Medicine Work Phone: Comment on above: Test performed at:[facility] [address] [place] [address] ; handled by [employer] Comprehensive Metabolic Profil 99 mL/min Normal [facility] Internal Medicine Work Phone: Comment on above: Test performed at:[facility] [address] [place] [address] ; handled by [employer] Comprehensive Metabolic Profil 82 mL/min Normal [facility] Internal Medicine Work Phone: Comment on above: Test performed at:[facility] [address] [place] [address] ; handled by [employer] Comprehensive Metabolic Profil 17 mg/dL Normal 7-18 [facility] Internal Medicine Work Phone: Comment on above: Test performed at:[facility] [address] [place] [address] ; handled by [employer] Comprehensive Metabolic Profil 1.0 mg/dL Normal 0.8-1.3 [facility] Internal Medicine Work Phone: Comment on above: Test performed at:[facility] [address] [place] [address] ; handled by [employer] Rapid Flu ([phone] x 2)Ordered By: Yina Mendoza on 02-22-2014 FLUAV Ag IA Ql (Throat) Negative Normal C o[facility]rehensive Internal Medicine Work Phone: CBCDOrdered By: System Manag er on 01-09-2014 CBCD 14.6 % Normal 11.6-14.6 [facility] Work Phone: CBCD 48.5 fL Abnormal 35.1-43.9 [facility] Work Phone: CBCD 209 K/mm3 Normal 150-450 [facility] Medicine Work Phone: CBCD 9.7 fL Normal 6.2-12.0 [facility] Work Phone: CBCD 50.7 % Normal 47-70 [facility] Work Phone: CBCD 31.1 % Normal 19-41 [facility] Work Phone: CBCD 11.9 % Abnormal 0-10 [facility] Work Phone: CBCD 5.3 % Abnormal 0-5 [facility] Work Phone: CBCD 0.6 % Normal 0-1 [facility] Work Phone: CBCD 0.400 % Normal 0.0-0.9 [facility] Work Phone: Comment on above: IG% - Immature Granu locytes (promyelocytes, myelocytes andmetamyelocytes) > 1% indicates that a LEFT SHIFT is Present. CBCD 2.4 {X10_3/uL} Normal 2.0-7.7 Comprehens nik Internal Medicine Work Phone: CBCD 1.47 {X10_3/ul} Normal 0.83-4.51 Comprehen sive Internal Medicine Work Phone: CBCD 4.7 K/mm3 Normal 4.4-11.0 [facility] Medicine Work Phone: CBCD 4.73 {M/mm3} Normal 4.6-6.2 Comprehensiv e Internal Medicine Work Phone: CBCD 14.3 g/dL Normal 13.0-16.5 [facility] Work Phone: CBCD 43.5 % Normal 40-54 [facility] Work Phone: CBCD 92.0 fL Normal 80-94 [facility] Work Phone: CBCD 30.2 pg Normal 27.0-32.0 [facility] Medicine Work Phone: CBCD 32.9 {g/gl} Normal 32-36 [facility] Medicine Work Phone: CMPOrdered By: System Manage r on 01-09-2014 Albumin mass conc 3.8 g/dL Normal 3.4-5.0 [facility] Internal Medicine Work Phone: Albumin/Globulin mass ratio 1.3 {RATIO} Normal 0.9-2.4 [facility] Internal Medicine Work Phone: ALP enzyme act/vol 62 U/L Normal 50-136 [facility] Internal Medicine Work Phone: ALT enzyme act/vol 38 U/L Normal 12-78 [facility] Internal Medicine Work Phone: AST enzyme act/vol 29 U/L Normal 15-37 [facility] Internal Medicine Work Phone: Bilirubin mass conc 0.60 mg/dL Normal 0.00-4.00 [facility] Internal Medicine Work Phone: Calcium mass conc 8.8 mg/dL Normal 8.5-10.1 Compreh [facility] Internal Medicine Work Phone: Chloride molar conc 106 mmol/L Normal 98-107 [facility] Internal Medicine Work Phone: CO2 molar conc 29.0 mmol/L Normal 21.0-32.0 [facility] Work Phone: Urea nitrogen mass conc 19 mg/dL Abnormal 7-18 [facility] Work Phone: Urea nitrogen/Creatinine mass ratio 21.1 {RATIO} Abnormal 10-20 [facility] Internal Medicine Work Phone: CMP 0.9 mg/dL Normal 0.8-1.3 [facility] Internal Medicine Work Phone: CMP 93 mL/min Normal [facility] Internal Medicine Work Phone: CMP 85 mg/dL Normal 70-110 [facility] Medicine Work Phone: CMP 113 mL/min Normal [facility] Medicine Work Phone: CMP 6.8 g/dL Normal 6.4-8.2 [facility] Work Phone: CMP 3.0 g/dL Normal 2.7-4.2 [facility] Work Phone: CMP 140 mmol/L Normal 136-145 [facility] Work Phone: CMP 4.3 mmol/L Normal 3.5-5.1 [facility] Work Phone: CMP 5 1 Normal 5-15 [facility] Medicine Work Phone: PSAOrdered By: [employer] on 01-09-2014 PSA 0.54 ng/mL Normal 0.00-4.00 [facility] Medicine Work Phone: Comment on above: This test was perfor med using the TPSA assay method for [employer] chemistry system. Values obtained with differentassay methods cannot be used interchangably.When changing PSA assays in the course of monitoring apatient, additional sequential testing should be carriedout to confirm baseline values. UACOrdered By: [employer] on 01-09-2014 UAC 0 SEEN Normal 0-5 [facility] Medicine Work Phone: Comment on above: How was Urine Obtain ed? CLEAN CATCH UAC RARE Normal [facility] Medicine Work Phone: Comment on above: How was Urine Obtain ed? CLEAN CATCH UAC 0-5 SEEN Normal 0-5 [facility] Medicine Work Phone: Comment on above: How was Urine Obtain ed? CLEAN CATCH UAC 25 /ul Abnormal [facility] Work Phone: Comment on above: How was Urine Obtain ed? CLEAN CATCH UAC Normal Normal [facility] Work Phone: Comment on above: How was Urine Obtain ed? CLEAN CATCH UAC Negative Normal [facility] Medicine Work Phone: Comment on above: How was Urine Obtain ed? CLEAN CATCH UAC 1 mg/dL Abnormal [facility] Work Phone: Comment on above: How was Urine Obtain ed? CLEAN CATCH UAC 7.0 1 Normal 5.0 - 8.0 [facility] Work Phone: Comment on above: How was Urine Obtain ed? CLEAN CATCH UAC 1.015 1 Normal 1.002-1.03 0 [facility] Medicine Work Phone: Comment on above: How was Urine Obtain ed? CLEAN CATCH UAC 5 mg/dL Abnormal [facility] Work Phone: Comment on above: How was Urine Obtain ed? CLEAN CATCH UAC Clear Normal [facility] Work Phone: Comment on above: How was Urine Obtain ed? CLEAN CATCH UAC Yellow Normal [facility] Work Phone: Comment on above: How was Urine Obtain ed? CLEAN CATCH UAC 6 mg/dL Abnormal [facility] Medicine Work Phone: Comment on above: COLOR OF URINE MAY A FFECT DIPSTICK RESULTS. How was Urine Obtain ed? CLEAN CATCH CBCDOrdered By: System Manag er on 11-10-2013 CBCD 8.5 % Abnormal 0-5 [facility] Work Phone: CBCD 33.5 % Normal 19-41 [facility] Work Phone: CBCD 233 K/mm3 Normal 150-450 [facility] Medicine Work Phone: CBCD 47.8 fL Abnormal 35.1-43.9 [facility] Work Phone: CBCD 42.1 % Normal 40-54 [facility] Medicine Work Phone: CBCD 14.5 % Normal 11.6-14.6 [facility] Work Phone: CBCD 91.1 fL Normal 80-94 [facility] Medicine Work Phone: CBCD 11.3 % Abnormal 0-10 [facility] Medicine Work Phone: CBCD 32.3 {g/gl} Normal 32-36 [facility] Work Phone: CBCD 13.6 g/dL Normal 13.0-16.5 [facility] Work Phone: CBCD 5.3 K/mm3 Normal 4.4-11.0 [facility] Medicine Work Phone: CBCD 4.62 {M/mm3} Normal 4.6-6.2 Comprehensiv e Internal Medicine Work Phone: CBCD 1.77 {X10_3/ul} Normal 0.83-4.51 Comprehen sive Internal Medicine Work Phone: CBCD 2.4 {X10_3/uL} Normal 2.0-7.7 Comprehens nik Internal Medicine Work Phone: CBCD 0.200 % Normal 0.0-0.9 [facility] Medicine Work Phone: Comment on above: IG% - Immature Granu locytes (promyelocytes, myelocytes andmetamyelocytes) > 1% indicates that a LEFT SHIFT is Present. CBCD 10.3 fL Normal 6.2-12.0 [facility] Medicine Work Phone: CBCD 29.4 pg Normal 27.0-32.0 [facility] Medicine Work Phone: CBCD 46.1 % Abnormal 47-70 [facility] Work Phone: CBCD 0.4 % Normal 0-1 [facility] Work Phone: CMPOrdered By: System Manage r on 11-10-2013 Albumin mass conc 3.9 g/dL Normal 3.4-5.0 Compreh ensive Internal Medicine Work Phone: Albumin/Globulin mass ratio 1.3 {RATIO} Normal 0.9-2.4 [facility] Medicine Work Phone: ALP enzyme act/vol 66 U/L Normal 45-117 [facility] Internal [facility] Work Phone: ALT enzyme act/vol 51 U/L Normal 12-78 [facility] Internal [facility] Work Phone: AST enzyme act/vol 29 U/L Normal 15-37 [facility] Internal Medicine Work Phone: Bilirubin mass conc 0.30 mg/dL Normal 0.00-1.00 Compr ehensive Internal Medicine Work Phone: Calcium mass conc 8.9 mg/dL Normal 8.5-10.1 Compreh ensive Internal Medicine Work Phone: Chloride molar conc 105 mmol/L Normal 98-107 Compr ehensive Internal Medicine Work Phone: CO2 molar conc 28.0 mmol/L Normal 21.0-32.0 Comprehen sive Internal Medicine Work Phone: Urea nitrogen mass conc 19 mg/dL Abnormal 7-18 C o[facility]rehensive Internal Medicine Work Phone: Urea nitrogen/Creatinine mass ratio 21.1 {RATIO} Abnormal 10-20 [facility] Medicine Work Phone: CMP 93 mL/min Normal [facility] Work Phone: CMP 113 mL/min Normal [facility] Work Phone: CMP 6.9 g/dL Normal 6.4-8.2 [facility] Work Phone: CMP 3.0 g/dL Normal 2.7-4.2 [facility] Work Phone: CMP 140 mmol/L Normal 136-145 [facility] Work Phone: CMP 3.9 mmol/L Normal 3.5-5.1 [facility] Work Phone: CMP 7 1 Normal 5-15 [facility] Work Phone: CMP 0.9 mg/dL Normal 0.8-1.3 [facility] Work Phone: CMP 84 mg/dL Normal 70-110 [facility] Work Phone: CBCDOrdered By: System Manag er on 08-05-2013 CBCD 14.8 % Abnormal 11.6-14.6 [facility] Work Phone: CBCD 2.6 {X10_3/uL} Normal 2.0-7.7 Comprehens nik Internal Medicine Work Phone: CBCD 0.300 % Normal 0.0-0.9 [facility] Work Phone: Comment on above: IG% - Immature Granu locytes (promyelocytes, myelocytes andmetamyelocytes) > 1% indicates that a LEFT SHIFT is Present. CBCD 0.7 % Normal 0-1 [facility] Work Phone: CBCD 8.8 % Normal 0-10 [facility] Work Phone: CBCD 36.6 % Normal 19-41 [facility] Work Phone: CBCD 2.16 {X10_3/ul} Normal 0.83-4.51 Comprehen sive [facility] Work Phone: CBCD 10.1 fL Normal 6.2-12.0 [facility] Work Phone: CBCD 226 K/mm3 Normal 150-450 [facility] Work Phone: CBCD 47.8 fL Abnormal 35.1-43.9 [facility] Work Phone: CBCD 44.8 % Abnormal 47-70 [facility] Work Phone: CBCD 32.5 {g/gl} Normal 32-36 [facility] Work Phone: CBCD 29.7 pg Normal 27.0-32.0 [facility] Work Phone: CBCD 91.3 fL Normal 80-94 [facility] Work Phone: CBCD 43.1 % Normal 40-54 [facility] Work Phone: CBCD 14.0 g/dL Normal 13.0-16.5 [facility] Work Phone: CBCD 4.72 {M/mm3} Normal 4.6-6.2 Comprehensiv e [facility] Work Phone: CBCD 5.9 K/mm3 Normal 4.4-11.0 [facility] Work Phone: CMPOrdered By: System Manage r on 08-05-2013 Albumin mass conc 3.8 g/dL Normal 3.4-5.0 Compreh ensive [facility] Work Phone: Albumin/Globulin mass ratio 1.3 {RATIO} Normal 0.9-2.4 [facility] Work Phone: ALP enzyme act/vol 62 U/L Normal 45-117 Compre [facility] Work Phone: ALT enzyme act/vol 30 U/L Normal 12-78 Compre [facility] Work Phone: AST enzyme act/vol 18 U/L Normal 15-37 Compre [facility] Work Phone: Bilirubin mass conc 0.20 mg/dL Normal 0.00-1.00 Compr ensive [facility] Work Phone: Calcium mass conc 8.8 mg/dL Normal 8.5-10.1 Compreh ensive [facility] Work Phone: Chloride molar conc 106 mmol/L Normal 98-107 Compr [facility] Internal Medicine Work Phone: CO2 molar conc 30.0 mmol/L Normal 21.0-32.0 [facility] Work Phone: Urea nitrogen mass conc 21 mg/dL Abnormal 7-18 C omprehensive [facility] Work Phone: Urea nitrogen/Creatinine mass ratio 23.3 {RATIO} Abnormal 10-20 [facility] Work Phone: CMP 3.9 mmol/L Normal 3.5-5.1 [facility] Work Phone: CMP 140 mmol/L Normal 136-145 [facility] Work Phone: CMP 3.0 g/dL Normal 2.7-4.2 [facility] Work Phone: CMP 6.8 g/dL Normal 6.4-8.2 [facility] Work Phone: CMP 93 mL/min Normal [facility] Work Phone: CMP 0.9 mg/dL Normal 0.8-1.3 [facility] Work Phone: CMP 93 mg/dL Normal 70-110 [facility] Work Phone: CMP 4 1 Abnormal 5-15 [facility] Work Phone: CMP 113 mL/min Normal [facility] Work Phone: CBCDOrdered By: System Manag er on 05-18-2013 CBCD 28.0 % Normal 19-41 [facility] Work Phone: CBCD 8.8 % Normal 0-10 [facility] Work Phone: CBCD 4.4 % Normal 0-5 [facility] Work Phone: CBCD 0.3 % Normal 0-1 [facility] Work Phone: CBCD 0.200 % Normal 0.0-0.9 [facility] Work Phone: Comment on above: IG% - Immature Granu locytes (promyelocytes, myelocytes andmetamyelocytes) > 1% indicates that a LEFT SHIFT is Present. CBCD 3.8 {X10_3/uL} Normal 2.0-7.7 Comprehens nik [facility] Work Phone: CBCD 89.6 fL Normal 80-94 [facility] Work Phone: CBCD 29.3 pg Normal 27.0-32.0 [facility] Work Phone: CBCD 46.6 fL Abnormal 35.1-43.9 [facility] Work Phone: CBCD 14.4 % Normal 11.6-14.6 [facility] Work Phone: CBCD 4.71 {M/mm3} Normal 4.6-6.2 Comprehensiv e [facility] Work Phone: CBCD 58.3 % Normal 47-70 [facility] Work Phone: CBCD 9.5 fL Normal 6.2-12.0 [facility] Work Phone: CBCD 231 K/mm3 Normal 150-450 [facility] Work Phone: CBCD 6.6 K/mm3 Normal 4.4-11.0 [facility] Work Phone: CBCD 13.8 g/dL Normal 13.0-16.5 [facility] Work Phone: CBCD 42.2 % Normal 40-54 [facility] Work Phone: CBCD 32.7 {g/gl} Normal 32-36 [facility] Work Phone: TSHOrdered By: System Manage r on 05-18-2013 Thyrotropin Qn 1.01 {uIU/mL} Normal 0.358-3.74 Compreh ensive [facility] Work Phone: URINE YUE CULTURE-MALIA COL C OUNT ([id number])Ordered By: Washerette Machine Operator on 01-07-2013 Bacteria identified Cx Nom (U) Final report Normal [facility] Work Phone: Comment on above: PATIENT NOT FASTINGP ERFORMED BY: [facility] [facility] [id number] Information: SRC:KARRI [id number] Bacteria identified Cx Nom (U) MUG Normal [facility] Work Phone: Comment on above: Mixed urogenital toy ra1,000 Colonies/mL PATIENT NOT FASTINGP ERFORMED BY: [facility]Con[facility] [id number] Information: SRC:UR [id number] Urinalysis, Office ([id number])Or dered By: Araceli Strange on 01-07-2013 Bilirubin Ql (U) Large Normal Comprehe nsive [facility] Medicine Work Phone: Glucose Test strip mass conc (U) Negative Normal [facility] Work Phone: Hemoglobin Ql (U) Negative Normal Compreh ensive [facility] Work Phone: Ketones Ql (U) Negative Normal Comprehens nik [facility] Work Phone: Leukocyte esterase Test strip Ql (U) Negative Normal [facility] Work Phone: Nitrite Ql (U) Negative Normal Comprehens nik [facility] Work Phone: pH (U) 7.0 [pH] Normal [facility] Work Phone: Protein Ql (U) Negative Normal Comprehens nik [facility] Work Phone: Specific gravity Relative Density (U) 1.025 1 Normal Comprehensi ve [facility] Medicine Work Phone: Urobilinogen mass/time (24H U) Normal Normal [facility] Work Phone: CBCDOrdered By: System Manag er on 12-10-2012 CBCD 2.7 {X10_3/uL} Normal 2.0-7.7 Comprehens nik [facility] Work Phone: CBCD 0.000 % Normal 0.0-0.9 [facility] Work Phone: Comment on above: IG% - Immature Granu locytes (promyelocytes, myelocytes andmetamyelocytes) > 1% indicates that a LEFT SHIFT is Present. CBCD 6.3 % Abnormal 0-5 [facility] Work Phone: CBCD 10.8 % Abnormal 0-10 [facility] Work Phone: CBCD 26.2 % Normal 19-41 [facility] Work Phone: CBCD 56.5 % Normal 47-70 [facility] Work Phone: CBCD 10.2 fL Normal 6.2-12.0 [facility] Work Phone: CBCD 195 K/mm3 Normal 150-450 [facility] Work Phone: CBCD 46.5 fL Abnormal 35.1-43.9 [facility] Work Phone: CBCD 14.4 % Normal 11.6-14.6 [facility] Work Phone: CBCD 32.3 {g/gl} Normal 32-36 [facility] Work Phone: CBCD 28.7 pg Normal 27.0-32.0 [facility] Work Phone: CBCD 88.8 fL Normal 80-94 [facility] Work Phone: CBCD 41.2 % Normal 40-54 [facility] Work Phone: CBCD 13.3 g/dL Normal 13.0-16.5 [facility] Work Phone: CBCD 4.64 {M/mm2} Normal 4.6-6.2 Comprehensiv e [facility] Work Phone: CBCD 4.7 K/mm3 Normal 4.4-11.0 [facility] Work Phone: CBCD 0.2 % Normal 0-1 [facility] Work Phone: CMPOrdered By: System Manage r on 12-10-2012 Albumin mass conc 3.8 g/dL Normal 3.4-5.0 Compreh ensive [facility] Work Phone: Comment on above: ERIKA URIARTE CNP ORDER ED CMP ONLY Albumin/Globulin mass ratio 1.5 {RATIO} Normal 0.9-2.4 [facility] Work Phone: Comment on above: ERIKA URIARTE CNP ORDER ED CMP ONLY ALP enzyme act/vol 60 U/L Normal 50-136 [facility] Work Phone: Comment on above: ERIKA URIARTE CNP ORDER ED CMP ONLY ALT enzyme act/vol 29 U/L Normal 12-78 [facility] Work Phone: Comment on above: ERIKA URIARTE CNP ORDER ED CMP ONLY AST enzyme act/vol 29 U/L Normal 15-37 [facility] Work Phone: Comment on above: ERIKA URIARTE CNP ORDER ED CMP ONLY Bilirubin mass conc 0.50 mg/dL Normal 0.00-1.00 Compr [facility] Internal Medicine Work Phone: Comment on above: ERIKA URIARTE CNP ORDER ED CMP ONLY Calcium mass conc 8.5 mg/dL Normal 8.5-10.1 [facility] Work Phone: Comment on above: ERIKA URIARTE CNP ORDER ED CMP ONLY Chloride molar conc 105 mmol/L Normal 98-107 Compr [facility] Work Phone: Comment on above: ERIKA URIARTE CNP ORDER ED CMP ONLY CO2 molar conc 29.0 mmol/L Normal 21.0-32.0 [facility] Work Phone: Comment on above: ERIKA URIARTE CNP ORDER ED CMP ONLY Urea nitrogen mass conc 19 mg/dL Abnormal 7-18 C omprehensive [facility] Work Phone: Comment on above: ERIKA URIARTE CNP ORDER ED CMP ONLY Urea nitrogen/Creatinine mass ratio 19.0 {RATIO} Normal 10-20 [facility] Work Phone: Comment on above: ERIKA URIARTE CNP ORDER ED CMP ONLY CMP 83 mL/min Normal [facility] Work Phone: Comment on above: ERIKA URIARTE CNP ORDER ED CMP ONLY CMP 6 1 Normal 5-15 [facility] Work Phone: Comment on above: ERIKA URIARTE CNP ORDER ED CMP ONLY CMP 3.9 mmol/L Normal 3.5-5.1 [facility] Work Phone: Comment on above: ERIKA URIARTE CNP ORDER ED CMP ONLY CMP 140 mmol/L Normal 136-145 [facility] Work Phone: Comment on above: ERIKA URIARTE CNP ORDER ED CMP ONLY CMP 6.3 g/dL Abnormal 6.4-8.2 [facility] Work Phone: Comment on above: ERIKA URIARTE CNP ORDER ED CMP ONLY CMP 101 mL/min Normal [facility] Work Phone: Comment on above: ERIKA URIARTE CNP ORDER ED CMP ONLY CMP 1.0 mg/dL Normal 0.8-1.3 [facility] Work Phone: Comment on above: ERIKA URIARTE CNP ORDER ED CMP ONLY CMP 87 mg/dL Normal 70-110 [facility] Work Phone: Comment on above: ERIKA URIARTE CNP ORDER ED CMP ONLY CMP 2.5 g/dL Abnormal 2.7-4.2 [facility] Work Phone: Comment on above: ERIKA URIARTE CNP ORDER ED CMP ONLY LIPIDOrdered By: System [place] jaqueline on 12-10-2012 LIPID 8 mg/dL Normal 5-40 [facility] Work Phone: Comment on above: ERIKA URIARTE CNP ORDER ED CMP ONLY LIPID 46 mg/dL Normal [facility] Work Phone: Comment on above: Reference RangeHDL < 40 mg/dL Low HDL CholesterolHDL >or= 60 mg/dL High HDL Cholesterol ERIKA URIARTE CNP ORDER ED CMP ONLY LIPID 81 mg/dL Normal 0-130 [facility] Work Phone: Comment on above: ERIKA URIARTE CNP ORDER ED CMP ONLY LIPID 39 mg/dL Normal 0-199 [facility] Work Phone: Comment on above: Serum Triglycerides Reference IntervalNormal <150 mg/dLBorderline high 150 - 199 mg/dLHigh 200 - 499 mg/dLVery High > or = 500 mg/dL ERIKA URIARTE CNP ORDER ED CMP ONLY LIPID 135 mg/dL Normal [facility] Work Phone: Comment on above: <200 mg/dL Desirable 200-240 mg/dL Borderline>240 mg/dL High Risk ERIKA URIARTE CNP ORDER ED CMP ONLY PSADOrdered By: System Manag er on 12-10-2012 PSAD 0.56 ng/mL Normal 0.0-4.0 [facility] Work Phone: Comment on above: This test was perfor med using the TPSA assay method for theA[employer]Somoto chemistry system. Values obtained with differentassay methods cannot be used interchangably.When changing PSA assays in the course of monitoring apatient, additional sequential testing should be carriedout to confirm baseline values. ERIKA URIARTE CNP ORDER ED CMP ONLY UAOrdered By: Washerette Machine Operator on 12-10-2012 UA 25 /ul Abnormal [facility] Work Phone: Comment on above: How was Urine Obtain ed? CLEAN CATCH UA Negative Normal [facility] Work Phone: Comment on above: How was Urine Obtain ed? CLEAN CATCH UA Normal Normal [facility] Work Phone: Comment on above: How was Urine Obtain ed? CLEAN CATCH UA 15 mg/dL Abnormal [facility] Work Phone: Comment on above: How was Urine Obtain ed? CLEAN CATCH UA 6.0 1 Normal 5.0 - 8.0 [facility] Work Phone: Comment on above: How was Urine Obtain ed? CLEAN CATCH UA 1.025 1 Normal 1.002-1.03 0 [facility] Work Phone: Comment on above: How was Urine Obtain ed? CLEAN CATCH UA 3 mg/dL Abnormal [facility] Work Phone: Comment on above: How was Urine Obtain ed? CLEAN CATCH UA Clear Normal [facility] Work Phone: Comment on above: How was Urine Obtain ed? CLEAN CATCH UA Yellow Normal [facility] Work Phone: Comment on above: How was Urine Obtain ed? CLEAN CATCH KNEE 4 OR MORE VIEWSOrdered By: Washerette Machine Operator on 09-23-2012 KNEE 4 OR MORE VIEWS See Note Normal Comp rehensive [facility] Work Phone: Comment on above: PROCEDURES: X-RAY - LEFT KNEE REASON FOR EXAM: Male, 52 years old. Knee pain following a recentfall. TECHNIQUE: Four views of the knee. COMPARISON: None. FINDINGS:Normal visualized distal femur. Normal visualized proximal tibia andfibula. Normal proximal tibiofibular articulation. There is evidence ofirregularities along the inferior aspect of the patella. This mayrepresent a tiny avulsion fracture. Clinical correlation is recommended. Normal medial femorotibial compartment. Normal lateral femorotibialcompartment. Normal patellofemoral articulation. Infrapatellar soft tissue swelling. IMPRESSION:Infrapatellar soft tissue swelling with probable avulsion of the inferioraspect of the patella. Signed:Dagoberto Mosher M.D.September 23, 2012 at 2:44:59 PM [phone] Signed GP/GP If you are the referring physician and would like to consult with theradiologist who provided this interpretation, please contact Raj Menjivar at [phone]. If this radiologist is unavailable, youwill be directed to another radiologist to assist. If you are a patient with a question regarding this report, pleasecontactyour referring physician directly. Professional Interpretation Provided By: [employer], Phone , These documents contain legally [...] documents. Dictated on 09/23/12 1444 by Cyrus Mosher MDranscribed on 09/23/12 1451 by ITS IMPORTSign by Dagoberto Mosher MD on 09/23/12 1452 Sign by: Dagoberto Mosher MD Rapid Strep Test, Office ([id number])Ordered By: Naye Crain on 07-14-2012 S. pyogenes Ag IA Ql (Unsp spec) Negative Normal [facility] Work Phone: Comment on above: neg L/S SPINE,MIN 4 VIEWSOrdered By: Washerette Machine Operator on 04-02-2012 L/S SPINE,MIN 4 VIEWS See Note Normal Com prehensive [facility] Work Phone: Comment on above: PROCEDURE: X-RAY - L UMBAR SPINE REASON FOR EXAM: Male, 51 years old. Right leg pain and buttock pain. TECHNIQUE: Five views of the lumbar spine were obtained. COMPARISON: None FINDINGS:Normal lumbar lordosis. There is no substantial scoliosis. T12-L1: Normal disc height. Normal endplates. Normal alignment of thevertebrae. L1-2: Normal disc height. Normal endplates. Normal alignment of thevertebrae. L2-3: Normal disc height. Normal endplates. Normal alignment of thevertebrae. L3-4: Normal disc height. Normal endplates. Normal alignment of thevertebrae. L4-5: There is mild facet joint osteoarthritis. There is a mild degreeofdisk space narrowing. L5-S1: Normal disc height. Normal endplates. Mild facet jointosteoarthritis. Normal alignment of the vertebrae. The soft tissue structures are unremarkable. IMPRESSION:Degenerative changes of the spine, as detailed above. Signed:Dagoberto Mosher M.D.April 02, 2012 at 1:16:13 PM [id number] Signed GP/GP If you are the referring physician and would like to consult with theradiologist who provided this interpretation, please contact Raj Menjivar at [phone]. If this radiologist is unavailable, youwill be directed to another radiologist to assist. If you are a patient with a question regarding this report, pleasecontactyour referring physician directly. Professional Interpretation Provided By: [employer], Phone , These documents contain legally [...] documents. Dictated on 04/02/12 1241 by Cyrus Mosher MDranscribed on 04/02/12 1329 by ITS IMPORTSign by Dagoberto Mosher MD on 04/02/12 1330 Sign by: Dagoberto Mosher MD CBCMDOrdered By: System [place] jaqueline on 02-29-2012 CBCMD 9.8 fL Normal 6.2-12.0 [facility] Work Phone: CMPOrdered By: System Manage r on 02-29-2012 Albumin mass conc 3.6 g/dL Normal 3.4-5.0 Compreh ensive [facility] Work Phone: ALP enzyme act/vol 60 U/L Normal 50-136 Compre hensive [facility] Work Phone: ALT enzyme act/vol 36 U/L Normal 12-78 Compre hensive [facility] Work Phone: Anion gap molar conc 7 mmol/L Normal 5-15 Comp rehensive [facility] Work Phone: AST enzyme act/vol 24 U/L Normal 15-37 Compre hensive [facility] Work Phone: Bilirubin mass conc 0.50 mg/dL Normal 0.00-1.00 Compr ehensive [facility] Work Phone: Calcium mass conc 8.8 mg/dL Normal 8.5-10.1 Compreh ensive [facility] Work Phone: Chloride molar conc 103 mmol/L Normal 98-107 Compr ehensive [facility] Work Phone: CO2 molar conc 31.0 mmol/L Normal 21.0-32.0 Comprehen sive [facility] Work Phone: Globulin mass conc (S) 3.3 g/dL Normal 2.7-4.2 Co mprehensive [facility] Work Phone: Sodium molar conc 141 mmol/L Normal 136-145 Compreh ensive [facility] Work Phone: Urea nitrogen mass conc 19 mg/dL Abnormal 7-18 C omprehensive [facility] Work Phone: Urea nitrogen/Creatinine mass ratio 19.0 {RATIO} Normal 10-20 [facility] Work Phone: LIPIDOrdered By: Remberto parsons on 02-29-2012 Cholesterol in HDL mass conc 65 mg/dL Normal [facility] Work Phone: Comment on above: Reference Range HDL <40 mg/dL Low HDL Cholesterol HDL >or= 60 mg/dL High HDL Cholesterol Cholesterol in LDL mass conc 76 mg/dL Normal 0-130 [facility] Work Phone: Cholesterol mass conc 151 mg/dL Normal Com prehensive [facility] Work Phone: Comment on above: <200 mg/dL Desirable 200-240 mg/dL Borderline >240 mg/dL High Risk UACOrdered By: System Manage r on 02-29-2012 UAC Negative Normal [facility] Work Phone: UAC 25 /ul Abnormal [facility] Work Phone: UAC 0 SEEN Normal [facility] Work Phone: UAC 6 mg/dL Abnormal [facility] Work Phone: Comment on above: DUE TO A MANUFACTURE R'S BACKORDER OF THE ICTOTEST TEST, URINE BILIRUBIN COMFIRMATORY TESTING FOR ALL POSITIVERESULTS WILL BE SUSPENDED. TESTING WILL RESUME WHEN THEICTOTEST TEST IS AVAILABLE. UAC Yellow Normal [facility] Work Phone: UAC Normal Normal [facility] Work Phone: UAC 3+ Normal [facility] Work Phone: YUE CULTURE-OTHER ([id number])Ord ered By: Washerette Machine Operator on 02-14-2012 Bacteria identified Respiratory culture Nom (Unsp spec) Final report Normal [facility] Work Phone: Comment on above: PATIENT NOT FASTINGP ERFORMED BY: CB [facility] [id number] [facility] [id number] Information: SRC:HUBER [id number] Bacteria identified Respiratory culture Nom (Unsp spec) MORACA Normal [facility] Work Phone: Comment on above: Moraxella (branhamel la) catarrhalisHeavy growthBeta lactamase positive. PATIENT NOT FASTINGP ERFORMED BY: CB [facility] [id number] [facility] [id number] Information: SRC:HUBER [id number] YUE CULTURE-OTHER ([id number])Ord ered By: Washerette Machine Operator on 05-04-2011 Bacteria identified Respiratory culture Nom (Unsp spec) Final report Normal [facility] Work Phone: Comment on above: PATIENT NOT FASTINGP ERFORMED BY: CB [facility] [id number] [facility] [id number] Information: SRC:THRT [id number] Bacteria identified Respiratory culture Nom (Unsp spec) RRF Normal [facility] Work Phone: Comment on above: Routine respiratory hernán PATIENT NOT FASTINGP ERFORMED BY: GELY [facility] [id number] [facility] [id number] Information: SRC:HUBER [id number] Rapid Strep Test, Office ([id number] [phone])on 05-04-2011 S. pyogenes Ag IA Ql (Unsp spec) Negative Normal [facility] Work Phone: FECAL OCCULT- Tubes sent rebecca e ([id number])on 11-09-2009 Hemoglobin.gastrointest inal Ql (St) Negative Normal [facility] Work Phone: Urinalysis, Office ([id number])Or dered By: Sakina Zimmerman on 09-29-2009 Bilirubin Ql (U) Large Normal Comprehe nsive [facility] Medicine Work Phone: Glucose Test strip mass conc (U) Negative Normal [facility] Work Phone: Hemoglobin Ql (U) Negative Normal Compreh ensive [facility] Work Phone: Ketones Ql (U) Negative Normal Comprehens nik [facility] Work Phone: Leukocyte esterase Test strip Ql (U) Negative Normal [facility] Work Phone: Nitrite Ql (U) Negative Normal Comprehens nik [facility] Work Phone: pH (U) 7.0 [pH] Normal [facility] Work Phone: Protein Ql (U) Negative Normal Comprehens nik [facility] Work Phone: Specific gravity Relative Density (U) 1.015 1 Normal Comprehensi ve Internal Medicine Work Phone: Urobilinogen mass/time (24H U) Normal Normal [facility] Work Phone: Urinalysis, Office ([id number])Or dered By: WADE Monterroso on 09-09-2009 Bilirubin Ql (U) Large Normal Comprehe nsive [facility] Work Phone: Glucose Test strip mass conc (U) Negative Normal [facility] Work Phone: Hemoglobin Ql (U) Negative Normal Compreh ensive [facility] Work Phone: Ketones Ql (U) Negative Normal Comprehens nik [facility] Work Phone: Leukocyte esterase Test strip Ql (U) Negative Normal [facility] Work Phone: Nitrite Ql (U) Negative Normal Comprehens nik [facility] Work Phone: pH (U) 6.0 [pH] Normal [facility] Work Phone: Protein Ql (U) Trace Normal Comprehens nik [facility] Work Phone: Specific gravity Relative Density (U) 1.025 1 Normal Comprehensi ve [facility] Medicine Work Phone: Urobilinogen mass/time (24H U) 2 mg/dL Normal [facility] Work Phone: Rapid Strep Test, Office ([id number] [phone])Ordered By: Fay Adamson on 12-29-2008 S. pyogenes Ag IA Ql (Unsp spec) Negative Normal [facility] Work Phone: Comment on above: aw FERRITIN ([id number])Ordered By: Kathie Sen on 11-20-2007 Ferritin mass conc 53 ng/mL Normal 22-322 Compre hensive [facility] Medicine Work Phone: Comment on above: PATIENT NOT FASTINGP ERFORMED BY: GELY [facility] [id number] [facility] [id number] FOLIC ACID SERUM ([id number])Orde red By: Kathie Sen on 11-20-2007 Folate mass conc 20.1 ng/mL Normal Comprehe nsive [facility] Medicine Work Phone: Comment on above: Indeterminate: 3.4 - 5.4 Deficient: <3.4 PATIENT NOT FASTINGP ERFORMED BY: GELY [facility] [id number] [facility] [id number] Vital Signs Date Time Vital Sign Value Performing Clinician Facility 12-15-2024 08:49-0400 Body height 165.[address] Ruchi Valenzuela DP Work Phone: [facility] 12-15-2024 08:49-0400 Body mass index (BMI) [Ratio] 44.7 kg/m2 Dr. Ruchi Valenzuela DPM Work Phone: [facility] 12-15-2024 08:49-0400 Body temperature 97.4 [degF] Dr. Ruchi Valenzuela DPM Work Phone: [facility] 12-15-2024 08:49-0400 Body weight 122.[address] Ruchi Valenzuela DPM Work Phone: [facility] 12-15-2024 08:49-0400 Diastolic blood pressure 89 mm[Hg] Dr. Ruchi Valenzuela DPM Work Phone: [facility] [facility] 12-15-2024 08:49-0400 Heart rate 78 /min Dr. Ruchi Valenzuela DPM Work Phone: [facility] 12-15-2024 08:49-0400 Respiratory rate 18 /min Dr. Ruchi Valenzuela DPM Work Phone: [facility] 12-15-2024 08:49-0400 SaO2% (BldA) [Mass fraction] 98 % Dr. Ruchi Valenzuela DPM Work Phone: [facility] 12-15-2024 08:49-0400 Systolic blood pressure 150 mm[Hg] Dr. Ruchi Valenzuela DPM Work Phone: [facility] 09-09-2024 13:51-0400 Body temperature 98.4 [degF] Dr. Latesha Zafar MD Work Phone: [facility] 09-09-2024 13:51-0400 Body weight 120.[address] Latesha Zafar MD Work Phone: [facility] 09-09-2024 13:51-0400 Diastolic blood pressure 93 mm[Hg] Dr. Latesha Zafar MD Work Phone: [facility] 09-09-2024 13:51-0400 Heart rate 92 /min Dr. Latesha Zafar MD Work Phone: [facility] 09-09-2024 13:51-0400 Respiratory rate 16 /min Dr. Latesha Zafar MD Work Phone: [facility] 09-09-2024 13:51-0400 SaO2% (BldA) [Mass fraction] 96 % Dr. Latesha Zafar MD Work Phone: [facility] 09-09-2024 13:51-0400 Systolic blood pressure 149 mm[Hg] Dr. Latesha Zafar MD Work Phone: [facility] 07-29-2024 07:56-0400 Body height 165.[address] Latesha Zafar MD Work Phone: [facility] 07-29-2024 07:56-0400 Body mass index (BMI) [Ratio] 43.9 kg/m2 Dr. Latesha Zafar MD Work Phone: [facility] 07-29-2024 07:56-0400 Body temperature 98.6 [degF] Dr. Latesha Zafar MD Work Phone: [facility] 07-29-2024 07:56-0400 Body weight 119.[address] Latesha Zafar MD Work Phone: [facility] 07-29-2024 07:56-0400 Diastolic blood pressure 86 mm[Hg] Dr. Latesha Zafar MD Work Phone: [facility] 07-29-2024 07:56-0400 Heart rate 76 /min Dr. Latesha Zafar MD Work Phone: [facility] 07-29-2024 07:56-0400 Respiratory rate 16 /min Dr. Latesha Zafar MD Work Phone: [facility] 07-29-2024 07:56-0400 SaO2% (BldA) [Mass fraction] 97 % Dr. Latesha Zafar MD Work Phone: [facility] 07-29-2024 07:56-0400 Systolic blood pressure 146 mm[Hg] Dr. Latesha Zafar MD Work Phone: [facility] 03-20-2023 08:00-0500 Body height 165.[address] Latesha Zafar Work Phone: [facility] 03-20-2023 08:00-0500 Body mass index (BMI) [Ratio] 43.4 kg/m2 Dr. Latesha Zafar Work Phone: [facility] 03-20-2023 08:00-0500 Body temperature 98.2 [degF] Dr. Latesha Zafar Work Phone: [facility] 03-20-2023 08:00-0500 Body weight 118.[address] Latesha Zafar Work Phone: [facility] 03-20-2023 08:00-0500 Diastolic blood pressure 86 mm[Hg] Dr. Latesha Zafar Work Phone: [facility] 03-20-2023 08:00-0500 Heart rate 71 /min Dr. Latesha Zafar Work Phone: [facility] 03-20-2023 08:00-0500 Respiratory rate 16 /min Dr. Latesha Zafar Work Phone: [facility] 03-20-2023 08:00-0500 SaO2% (BldA) [Mass fraction] 96 % Dr. Latesha Zafar Work Phone: [facility] 03-20-2023 08:00-0500 Systolic blood pressure 127 mm[Hg] Dr. Latesha Zafar Work Phone: [facility] 11-28-2022 06:01-0400 Body mass index (BMI) [Ratio] 42.3 kg/m2 Dr. Latesha Zafar Work Phone: [facility] 11-28-2022 06:01-0400 Body temperature 97.7 [degF] Dr. Latesha Zafar Work Phone: [facility] 11-28-2022 06:01-0400 Body weight 115.[address] Latesha Zafar Work Phone: [facility] 11-28-2022 06:01-0400 Diastolic blood pressure 89 mm[Hg] Dr. Latesha Zafar Work Phone: [facility] 11-28-2022 06:01-0400 Heart rate 66 /min Dr. Latesha Zafar Work Phone: [facility] 11-28-2022 06:01-0400 Respiratory rate 18 /min Dr. Latesha Zafar Work Phone: [facility] 11-28-2022 06:01-0400 SaO2% (BldA) [Mass fraction] 97 % Dr. Latesha Zafar Work Phone: [facility] 11-28-2022 06:01-0400 Systolic blood pressure 133 mm[Hg] Dr. Latesha Zafar Work Phone: [facility] 09-12-2022 08:14-0400 Body height 165.[address] Latesha Zafar Work Phone: [facility] 09-12-2022 08:14-0400 Body mass index (BMI) [Ratio] 42 kg/m2 Dr. Latesha Zafar Work Phone: [facility] 09-12-2022 08:14-0400 Body temperature 98.4 [degF] Dr. Latesha Zafar Work Phone: [facility] 09-12-2022 08:14-0400 Body weight 114.[address] Latesha Zafar Work Phone: [facility] 09-12-2022 08:14-0400 Diastolic blood pressure 83 mm[Hg] Dr. Latesha Zafar Work Phone: [facility] 09-12-2022 08:14-0400 Heart rate 70 /min Dr. Latesha Zafar Work Phone: [facility] 09-12-2022 08:14-0400 Respiratory rate 18 /min Dr. Latesha Zafar Work Phone: [facility] 09-12-2022 08:14-0400 SaO2% (BldA) [Mass fraction] 96 % Dr. Laetsha Zafar Work Phone: [facility] 09-12-2022 08:14-0400 Systolic blood pressure 123 mm[Hg] Dr. Latesha Zafar Work Phone: [facility] 01-25-2022 08:39-0500 Body temperature 98.1 [degF] Dr. Latesha Zafar Work Phone: [facility] Work Phone: 01-25-2022 08:39-0500 Diastolic blood pressure 79 mm[Hg] Dr. Latesha Zafar Work Phone: [facility] Work Phone: 01-25-2022 08:39-0500 Heart rate 67 /min Dr. Latesha Zafar Work Phone: [facility] Work Phone: 01-25-2022 08:39-0500 Respiratory rate 18 /min Dr. Latesha Zafar Work Phone: [facility] Work Phone: 01-25-2022 08:39-0500 SaO2% (BldA) [Mass fraction] 100 % Dr. Latesha Zafar Work Phone: [facility] Work Phone: 01-25-2022 08:39-0500 Systolic blood pressure 110 mm[Hg] Dr. Latesha Zafar Work Phone: [facility] Work Phone: 01-25-2022 07:08-0500 Body height 165.[address] Latesha Zafar Work Phone: [facility] Work Phone: 01-25-2022 07:08-0500 Body mass index (BMI) [Ratio] 38.2 kg/m2 Dr. Latesha Zafar Work Phone: [facility] Work Phone: 01-25-2022 07:08-0500 Body weight 104.[address] Latesha Zafar Work Phone: [facility] Work Phone: 12-13-2021 08:12-0400 Body mass index (BMI) [Ratio] 38.8 kg/m2 Dr. Latesha Zafar Work Phone: [facility] Work Phone: 12-13-2021 08:12-0400 Body temperature 98.4 [degF] Dr. Ltaesha Zafar Work Phone: [facility] Work Phone: 12-13-2021 08:12-0400 Body weight 105.[address] Latesha Zafar Work Phone: [facility] Work Phone: 12-13-2021 08:12-0400 Diastolic blood pressure 79 mm[Hg] Dr. Latesha Zafar Work Phone: [facility] Work Phone: 12-13-2021 08:12-0400 Heart rate 66 /min Dr. Latesha Zafar Work Phone: [facility] Work Phone: 12-13-2021 08:12-0400 Respiratory rate 18 /min Dr. Latesha Zafar Work Phone: [facility] Work Phone: 12-13-2021 08:12-0400 SaO2% (BldA) [Mass fraction] 99 % Dr. Latesha Zafar Work Phone: [facility] Work Phone: 12-13-2021 08:12-0400 Systolic blood pressure 119 mm[Hg] Dr. Latesha Zafar Work Phone: [facility] Work Phone: 11-28-2021 09:40-0400 Body mass index (BMI) [Ratio] 39.2 kg/m2 Dr. Latesha Zafar Work Phone: [facility] Work Phone: 11-28-2021 09:40-0400 Body weight 107.[address] Latesha Zafar Work Phone: [facility] Work Phone: 11-28-2021 09:40-0400 Diastolic blood pressure 84 mm[Hg] Dr. Latesha Zafar Work Phone: [facility] Work Phone: 11-28-2021 09:40-0400 Heart rate 66 /min Dr. Latesha Zafar Work Phone: [facility] Work Phone: 11-28-2021 09:40-0400 SaO2% (BldA) [Mass fraction] 96 % Dr. Latesha Zafar Work Phone: [facility] Work Phone: 11-28-2021 09:40-0400 Systolic blood pressure 139 mm[Hg] Dr. Latesha Zafar Work Phone: [facility] Work Phone: 09-20-2021 08:11-0400 Body height 165.[address] Latesha Zafar Work Phone: [facility] Work Phone: 09-20-2021 08:11-0400 Body mass index (BMI) [Ratio] 40.7 kg/m2 Dr. Latesha Zafar Work Phone: [facility] Work Phone: 09-20-2021 08:11-0400 Body temperature 97.5 [degF] Dr. Latesha Zafar Work Phone: [facility] Work Phone: 09-20-2021 08:11-0400 Body weight 111.[address] Latesha Zafar Work Phone: [facility] Work Phone: 09-20-2021 08:11-0400 Diastolic blood pressure 66 mm[Hg] Dr. Latesha Zafar Work Phone: [facility] Work Phone: 09-20-2021 08:11-0400 Heart rate 69 /min Dr. Latesha Zafar Work Phone: [facility] Work Phone: 09-20-2021 08:11-0400 Respiratory rate 16 /min Dr. Latesha Zafar Work Phone: [facility] Work Phone: 09-20-2021 08:11-0400 SaO2% (BldA) [Mass fraction] 99 % Dr. Latesha Zafar Work Phone: [facility] Work Phone: 09-20-2021 08:11-0400 Systolic blood pressure 128 mm[Hg] Dr. Latesha Zafar Work Phone: [facility] Work Phone: 06-29-2021 15:55-0400 Body temperature 98.1 [degF] Dr. Latesha Zafar Work Phone: [facility] Work Phone: 06-29-2021 15:55-0400 Diastolic blood pressure 82 mm[Hg] Dr. Latesha Zafar Work Phone: [facility] Work Phone: 06-29-2021 15:55-0400 Heart rate 83 /min Dr. Latesha Zafar Work Phone: [facility] Work Phone: 06-29-2021 15:55-0400 Respiratory rate 14 /min Dr. Latesha Zafar Work Phone: [facility] Work Phone: 06-29-2021 15:55-0400 SaO2% (BldA) [Mass fraction] 99 % Dr. Latesha Zafar Work Phone: [facility] Work Phone: 06-29-2021 15:55-0400 Systolic blood pressure 110 mm[Hg] Dr. Latesha Zafar Work Phone: [facility] Work Phone: 06-14-2021 08:09-0400 Body mass index (BMI) [Ratio] 41.6 kg/m2 Dr. Latesha Zafar Work Phone: [facility] Work Phone: 06-14-2021 08:09-0400 Body temperature 97.4 [degF] Dr. Latesha Zafar Work Phone: [facility] Work Phone: 06-14-2021 08:09-0400 Body weight 113.[address] Latesha Zafar Work Phone: [facility] Work Phone: 06-14-2021 08:09-0400 Diastolic blood pressure 88 mm[Hg] Dr. Latesha Zafar Work Phone: [facility] Work Phone: 06-14-2021 08:09-0400 Heart rate 71 /min Dr. Latesha Zafar Work Phone: [facility] Work Phone: 06-14-2021 08:09-0400 Respiratory rate 16 /min Dr. Latesha Zafar Work Phone: [facility] Work Phone: 06-14-2021 08:09-0400 SaO2% (BldA) [Mass fraction] 98 % Dr. Latesha Zafar Work Phone: [facility] Work Phone: 06-14-2021 08:09-0400 Systolic blood pressure 148 mm[Hg] Dr. Latesha Zafar Work Phone: [facility] Work Phone: 05-25-2020 07:59-0400 BMI (Body Mass Index) 45.76 kg/m2 aCri Portillo [facility]; [facility] Work Phone: 05-25-2020 07:59-0400 Body Temperature 97.5 [degF] Cari Portillo [facility]; [facility] Work Phone: Comment on above: Method: Infrared 05-25-2020 07:59-0400 Body weight 124.74 kg Cari Portillo [facility]; [facility] Work Phone: 05-25-2020 07:59-0400 BP Diastolic 80 mm[Hg] Cari Portillo [facility]; [facility] Work Phone: Comment on above: Patient Position: Sitting; Cuff Location : Left Arm; Cuff Size: Standard 05-25-2020 07:59-0400 BP Systolic 130 mm[Hg] Cari Portillo [facility]; [facility] Work Phone: Comment on above: Patient Position: Sitting; Cuff Location : Left Arm; Cuff Size: Standard 05-25-2020 07:59-0400 BSA (Body Surface Area) 2.26 m2 Cari Portillo [facility]; [facility] Work Phone: 05-25-2020 07:59-0400 Height 165.1 cm Cari Portillo [facility]; [facility] Work Phone: 05-25-2020 07:59-0400 Pulse (Heart Rate) 92 /min Cari Portillo [facility]; [facility] Work Phone: Comment on above: Pattern: Regular 05-25-2020 07:59-0400 Pulse Oximetry 98 % Cari Portillo [facility]; [facility] Work Phone: Comment on above: Room air 05-25-2020 07:59-0400 Respiratory Rate 17 /min Cari Portillo [facility]; [facility] Work Phone: Comment on above: Pattern: Unlabored 04-13-2020 08:28-0500 BMI (Body Mass Index) 45.76 kg/m2 Cari Portillo [facility]; [facility] Work Phone: 04-13-2020 08:28-0500 Body Temperature 97.3 [degF] Cari Portillo [facility]; [facility] Work Phone: Comment on above: Method: Infrared 04-13-2020 08:28-0500 Body weight 124.74 kg Cari Portillo [facility]; [facility] Work Phone: 04-13-2020 08:28-0500 BP Diastolic 70 mm[Hg] Cari Portillo [facility]; [facility] Work Phone: Comment on above: Patient Position: Sitting; Cuff Location : Left Arm; Cuff Size: Standard 04-13-2020 08:28-0500 BP Systolic 112 mm[Hg] Cari Portillo [facility]; [facility] Work Phone: Comment on above: Patient Position: Sitting; Cuff Location : Left Arm; Cuff Size: Standard 04-13-2020 08:28-0500 BSA (Body Surface Area) 2.26 m2 Cari Portillo [facility]; [facility] Work Phone: 04-13-2020 08:28-0500 Height 165.1 cm Cari Portillo [facility]; [facility] Work Phone: 04-13-2020 08:28-0500 Pulse (Heart Rate) 66 /min Cari Portillo [facility]; [facility] Work Phone: Comment on above: Pattern: Regular 04-13-2020 08:28-0500 Pulse Oximetry 97 % Cari Portillo [facility]; [facility] Work Phone: Comment on above: Room air 04-13-2020 08:28-0500 Respiratory Rate 18 /min Cari Portillo [facility]; [facility] Work Phone: Comment on above: Pattern: Unlabored 02-25-2020 08:24-0500 BMI (Body Mass Index) 45.26 kg/m2 Cari Portillo [facility]; [facility] Work Phone: 02-25-2020 08:24-0500 Body Temperature 97.2 [degF] Cari Portillo [facility]; [facility] Work Phone: Comment on above: Method: Thermal Scan 02-25-2020 08:24-0500 Body weight 123.38 kg Cari Portillo [facility]; [facility] Work Phone: 02-25-2020 08:24-0500 BP Diastolic 76 mm[Hg] Cari Portillo [facility]; [facility] Work Phone: Comment on above: Patient Position: Sitting; Cuff Location : Left Arm; Cuff Size: Standard 02-25-2020 08:24-0500 BP Systolic 122 mm[Hg] Cari Portillo [facility]; [facility] Work Phone: Comment on above: Patient Position: Sitting; Cuff Location : Left Arm; Cuff Size: Standard 02-25-2020 08:24-0500 BSA (Body Surface Area) 2.25 m2 Cari Portillo [facility]; [facility] Work Phone: 02-25-2020 08:24-0500 Height 165.1 cm Cari Portillo [facility]; [facility] Work Phone: 02-25-2020 08:24-0500 Pulse (Heart Rate) 72 /min Cari Portillo [facility]; [facility] Work Phone: Comment on above: Pattern: Regular 02-25-2020 08:24-0500 Pulse Oximetry 96 % Cari Portillo [facility]; [facility] Work Phone: Comment on above: Room air 02-25-2020 08:24-0500 Respiratory Rate 16 /min Cari Portillo [facility]; [facility] Work Phone: Comment on above: Pattern: Unlabored 12-02-2019 07:57-0400 BMI (Body Mass Index) 45.26 kg/m2 Cari Portillo [facility] Work Phone: 12-02-2019 07:57-0400 Body Temperature 97 [degF] Cari Portillo [facility] Work Phone: Comment on above: Method: Thermal Scan 12-02-2019 07:57-0400 Body weight 123.38 kg Cari Portillo [facility] Work Phone: 12-02-2019 07:57-0400 BP Diastolic 72 mm[Hg] Cari Portillo [facility] Work Phone: Comment on above: Patient Position: Sitting; Cuff Location : Left Arm; Cuff Size: Standard 12-02-2019 07:57-0400 BP Systolic 120 mm[Hg] Cari Portillo [facility] Work Phone: Comment on above: Patient Position: Sitting; Cuff Location : Left Arm; Cuff Size: Standard 12-02-2019 07:57-0400 BSA (Body Surface Area) 2.25 m2 Cari Portillo [facility] Work Phone: 12-02-2019 07:57-0400 Height 165.1 cm Cari Portillo [facility] Work Phone: 12-02-2019 07:57-0400 Pulse (Heart Rate) 82 /min Cari Portillo [facility] Work Phone: Comment on above: Pattern: Regular 12-02-2019 07:57-0400 Pulse Oximetry 98 % Cari Portillo [facility] Work Phone: Comment on above: Room air 12-02-2019 07:57-0400 Respiratory Rate 16 /min Cari Portillo [facility] Work Phone: Comment on above: Pattern: Unlabored 03-25-2019 08:01-0500 BMI (Body Mass Index) 48.09 kg/m2 Cari Price [facility] Work Phone: 03-25-2019 08:01-0500 Body Temperature 97.6 [degF] Cari Portillo [facility] Work Phone: Comment on above: Method: Temporal 03-25-2019 08:01-0500 Body weight 131.09 kg Cari Portillo [facility] Work Phone: 03-25-2019 08:01-0500 BP Diastolic 84 mm[Hg] Cari Portillo [facility] Work Phone: Comment on above: Patient Position: Sitting; Cuff Location : Left Arm; Cuff Size: Standard 03-25-2019 08:01-0500 BP Systolic 118 mm[Hg] Cari Portillo [facility] Work Phone: Comment on above: Patient Position: Sitting; Cuff Location : Left Arm; Cuff Size: Standard 03-25-2019 08:01-0500 BSA (Body Surface Area) 2.31 m2 Cari Portillo [facility] Work Phone: 03-25-2019 08:01-0500 Height 165.1 cm Cari Portillo [facility] Work Phone: 03-25-2019 08:01-0500 Pulse (Heart Rate) 80 /min Cari Portillo [facility] Work Phone: Comment on above: Pattern: Regular 03-25-2019 08:01-0500 Pulse Oximetry 95 % Cari Portillo [facility] Work Phone: Comment on above: Room air 03-25-2019 08:01-0500 Respiratory Rate 16 /min Cari Portillo [facility] Work Phone: Comment on above: Pattern: Unlabored 11-19-2018 08:26-0400 BMI (Body Mass Index) 48.49 kg/m2 Cari Price [facility] Work Phone: 11-19-2018 08:26-0400 Body weight 132.17 kg Cari Portillo [facility] Work Phone: 11-19-2018 08:26-0400 BP Diastolic 80 mm[Hg] Cari Portillo [facility] Work Phone: Comment on above: Patient Position: Sitting; Cuff Location : Left Arm; Cuff Size: Standard 11-19-2018 08:26-0400 BP Systolic 142 mm[Hg] Cari Portillo [facility] Work Phone: Comment on above: Patient Position: Sitting; Cuff Location : Left Arm; Cuff Size: Standard 11-19-2018 08:26-0400 BSA (Body Surface Area) 2.32 m2 Cari Portillo [facility] Work Phone: 11-19-2018 08:26-0400 Height 165.1 cm Cari Portillo [facility] Work Phone: 11-19-2018 08:26-0400 Pulse (Heart Rate) 87 /min Cari Portillo [facility] Work Phone: Comment on above: Pattern: Regular 11-19-2018 08:26-0400 Pulse Oximetry 97 % Cari Portillo [facility] Work Phone: Comment on above: Room air 11-19-2018 08:26-0400 Respiratory Rate 18 /min Cari Portillo [facility] Work Phone: Comment on above: Pattern: Unlabored 10-29-2018 10:31-0400 BMI (Body Mass Index) 46.93 kg/m2 Cari Portillo [facility] Work Phone: 10-29-2018 10:31-0400 Body weight 127.92 kg Cari Portillo [facility] Work Phone: 10-29-2018 10:31-0400 BP Diastolic 84 mm[Hg] Cari Portillo [facility] Work Phone: Comment on above: Patient Position: Sitting; Cuff Location : Left Arm; Cuff Size: Standard 10-29-2018 10:31-0400 BP Systolic 128 mm[Hg] Cari Portillo [facility] Work Phone: Comment on above: Patient Position: Sitting; Cuff Location : Left Arm; Cuff Size: Standard 10-29-2018 10:31-0400 BSA (Body Surface Area) 2.29 m2 Cari Portillo [facility] Work Phone: 10-29-2018 10:31-0400 Height 165.1 cm Cari Portillo [facility] Work Phone: 10-29-2018 10:31-0400 Pulse (Heart Rate) 85 /min Cari Portillo [facility] Work Phone: Comment on above: Pattern: Regular 10-29-2018 10:31-0400 Pulse Oximetry 95 % Cari Portillo [facility] Work Phone: Comment on above: Room air 10-29-2018 10:31-0400 Respiratory Rate 18 /min Cari Portillo [facility] Work Phone: Comment on above: Pattern: Unlabored 2018 12:25-0400 BMI (Body Mass Index) 46.26 kg/m2 Cari Portillo [facility] Work Phone: 2018 12:25-0400 Body weight 126.1 kg Cari Portillo [facility] Work Phone: 2018 12:25-0400 BP Diastolic 82 mm[Hg] Cari Portillo [facility] Work Phone: Comment on above: Patient Position: Sitting; Cuff Location : Left Arm; Cuff Size: Standard 2018 12:25-0400 BP Systolic 118 mm[Hg] Cari Portillo [facility] Work Phone: Comment on above: Patient Position: Sitting; Cuff Location : Left Arm; Cuff Size: Standard 2018 12:25-0400 BSA (Body Surface Area) 2.28 m2 Cari [facility] Internal Medicine Work Phone: 2018 12:25-0400 Height 165.1 cm Cari [facility] Internal Medicine Work Phone: 2018 12:25-0400 Pulse (Heart Rate) 78 /min Cari [facility] Internal Medicine Work Phone: Comment on above: Pattern: Regular 2018 12:25-0400 Pulse Oximetry 98 % Cari [facility] Internal Medicine Work Phone: Comment on above: Room air 2018 12:25-0400 Respiratory Rate 18 /min Cari [facility] Internal Medicine Work Phone: Comment on above: Pattern: Unlabored 08-13-2018 11:51-0400 BMI (Body Mass Index) 46.26 kg/m2 Cari Portillo [facility] Internal Medicine Work Phone: 08-13-2018 11:51-0400 Body Temperature 97.7 [degF] Cari [facility] Internal Medicine Work Phone: Comment on above: Method: Temporal 08-13-2018 11:51-0400 Body weight 126.1 kg Cari [facility] Internal Medicine Work Phone: 08-13-2018 11:51-0400 BP Diastolic 90 mm[Hg] Cari [facility] Internal Medicine Work Phone: Comment on above: Patient Position: Sitting; Cuff Location : Left Arm; Cuff Size: Standard 08-13-2018 11:51-0400 BP Systolic 132 mm[Hg] Cari [facility] Internal Medicine Work Phone: Comment on above: Patient Position: Sitting; Cuff Location : Left Arm; Cuff Size: Standard 08-13-2018 11:51-0400 BSA (Body Surface Area) 2.28 m2 Cari [facility] Internal Medicine Work Phone: 08-13-2018 11:51-0400 Height 165.1 cm Cari [facility] Internal Medicine Work Phone: 08-13-2018 11:51-0400 Pulse (Heart Rate) 71 /min Cari [facility] Internal Medicine Work Phone: Comment on above: Pattern: Regular 08-13-2018 11:51-0400 Pulse Oximetry 96 % Cari [facility] Internal Medicine Work Phone: Comment on above: Room air 08-13-2018 11:51-0400 Respiratory Rate 18 /min Cari [facility] Internal Medicine Work Phone: Comment on above: Pattern: Unlabored 05-21-2018 10:07-0400 BMI (Body Mass Index) 44.6 kg/m2 Cari Portillo [facility] Internal Medicine Work Phone: 05-21-2018 10:07-0400 Body Temperature 97.7 [degF] Cari [facility] Internal Medicine Work Phone: Comment on above: Method: Temporal 05-21-2018 10:07-0400 Body weight 121.56 kg Cari [facility] Internal Medicine Work Phone: 05-21-2018 10:07-0400 BP Diastolic 80 mm[Hg] Cari [facility] Internal Medicine Work Phone: Comment on above: Patient Position: Sitting; Cuff Location : Left Arm; Cuff Size: Large 05-21-2018 10:07-0400 BP Systolic 126 mm[Hg] Cari [facility] Internal Medicine Work Phone: Comment on above: Patient Position: Sitting; Cuff Location : Left Arm; Cuff Size: Large 05-21-2018 10:07-0400 BSA (Body Surface Area) 2.24 m2 Cari [facility] Internal Medicine Work Phone: 05-21-2018 10:07-0400 Height 165.1 cm Cari [facility] Internal Medicine Work Phone: 05-21-2018 10:07-0400 Pulse (Heart Rate) 80 /min Cari [facility] Internal Medicine Work Phone: Comment on above: Pattern: Regular 05-21-2018 10:07-0400 Pulse Oximetry 99 % Cari [facility] Internal Medicine Work Phone: Comment on above: Room air 05-21-2018 10:07-0400 Respiratory Rate 20 /min Cari [facility] Internal Medicine Work Phone: Comment on above: Pattern: Unlabored 05-21-2018 10:07-0400 Weight 121.56 kg Cari [facility] Internal Medicine Work Phone: 04-23-2018 14:06-0500 BMI (Body Mass Index) 44.6 kg/m2 Cari Portillo [facility] Internal Medicine Work Phone: 04-23-2018 14:06-0500 Body weight 121.56 kg Cari [facility] Internal Medicine Work Phone: 04-23-2018 14:06-0500 BP Diastolic 84 mm[Hg] Cari [facility] Internal Medicine Work Phone: Comment on above: Patient Position: Sitting; Cuff Location : Left Arm; Cuff Size: Standard 04-23-2018 14:06-0500 BP Systolic 120 mm[Hg] Cari [facility] Internal Medicine Work Phone: Comment on above: Patient Position: Sitting; Cuff Location : Left Arm; Cuff Size: Standard 04-23-2018 14:06-0500 BSA (Body Surface Area) 2.24 m2 Cari [facility] Internal Medicine Work Phone: 04-23-2018 14:06-0500 Height 165.1 cm Cari [facility] Internal Medicine Work Phone: 04-23-2018 14:06-0500 Pulse (Heart Rate) 78 /min Cari [facility] Internal Medicine Work Phone: Comment on above: Pattern: Regular 04-23-2018 14:06-0500 Pulse Oximetry 96 % Cari [facility] Internal Medicine Work Phone: Comment on above: Room air 04-23-2018 14:06-0500 Respiratory Rate 18 /min Cari [facility] Internal Medicine Work Phone: Comment on above: Pattern: Unlabored 04-23-2018 14:06-0500 Weight 121.56 kg Cari [facility] Internal Medicine Work Phone: 04-09-2018 13:19-0500 BMI (Body Mass Index) 44.29 kg/m2 Cari [facility] Internal Medicine Work Phone: 04-09-2018 13:19-0500 Body Temperature 97.8 [degF] Cari [facility] Internal Medicine Work Phone: Comment on above: Method: Temporal 04-09-2018 13:19-0500 Body weight 120.71 kg Cari [facility] Internal Medicine Work Phone: 04-09-2018 13:19-0500 BP Diastolic 79 mm[Hg] Cari [facility] Internal Medicine Work Phone: Comment on above: Patient Position: Sitting; Cuff Location : Left Arm; Cuff Size: Standard 04-09-2018 13:19-0500 BP Systolic 124 mm[Hg] Cari [facility] Internal Medicine Work Phone: Comment on above: Patient Position: Sitting; Cuff Location : Left Arm; Cuff Size: Standard 04-09-2018 13:19-0500 BSA (Body Surface Area) 2.23 m2 Cari [facility] Internal Medicine Work Phone: 04-09-2018 13:19-0500 Height 165.1 cm Cari [facility] Internal Medicine Work Phone: 04-09-2018 13:19-0500 Pulse (Heart Rate) 90 /min Cari [facility] Internal Medicine Work Phone: Comment on above: Pattern: Regular 04-09-2018 13:19-0500 Pulse Oximetry 99 % Cari [facility] Internal Medicine Work Phone: Comment on above: Room air 04-09-2018 13:19-0500 Respiratory Rate 16 /min Cari [facility] Internal Medicine Work Phone: Comment on above: Pattern: Unlabored 04-09-2018 13:19-0500 Weight 120.71 kg Cari [facility] Internal Medicine Work Phone: 03-12-2018 08:30-0500 BMI (Body Mass Index) 44.45 kg/m2 Cari [facility] Internal Medicine Work Phone: 03-12-2018 08:30-0500 Body weight 121.17 kg Cari [facility] Internal Medicine Work Phone: 03-12-2018 08:30-0500 BP Diastolic 82 mm[Hg] Cari [facility] Internal Medicine Work Phone: Comment on above: Patient Position: Sitting; Cuff Location : Left Arm; Cuff Size: Large 03-12-2018 08:30-0500 BP Systolic 122 mm[Hg] Cari [facility] Internal Medicine Work Phone: Comment on above: Patient Position: Sitting; Cuff Location : Left Arm; Cuff Size: Large 03-12-2018 08:30-0500 BSA (Body Surface Area) 2.24 m2 Cari [facility] Internal Medicine Work Phone: 03-12-2018 08:30-0500 Height 165.1 cm Cari [facility] Internal Medicine Work Phone: 03-12-2018 08:30-0500 Pulse (Heart Rate) 81 /min Cari [facility] Internal Medicine Work Phone: Comment on above: Pattern: Regular 03-12-2018 08:30-0500 Pulse Oximetry 98 % Cari [facility] Internal Medicine Work Phone: Comment on above: Room air 03-12-2018 08:30-0500 Respiratory Rate 18 /min Cari [facility] Internal Medicine Work Phone: Comment on above: Pattern: Unlabored 03-12-2018 08:30-0500 Weight 121.17 kg Cari [facility] Internal Medicine Work Phone: 03-05-2018 15:11-0500 BMI (Body Mass Index) 44.43 kg/m2 Cari [facility] Internal Medicine Work Phone: 03-05-2018 15:11-0500 Body weight 121.11 kg Cari [facility] Internal Medicine Work Phone: 03-05-2018 15:11-0500 BP Diastolic 78 mm[Hg] Cari [facility] Internal Medicine Work Phone: Comment on above: Patient Position: Sitting; Cuff Location : Left Arm; Cuff Size: Large 03-05-2018 15:11-0500 BP Systolic 124 mm[Hg] Cari [facility] Internal Medicine Work Phone: Comment on above: Patient Position: Sitting; Cuff Location : Left Arm; Cuff Size: Large 03-05-2018 15:11-0500 BSA (Body Surface Area) 2.24 m2 Cari [facility] Internal Medicine Work Phone: 03-05-2018 15:11-0500 Height 165.1 cm Cari [facility] Internal Medicine Work Phone: 03-05-2018 15:11-0500 Pulse (Heart Rate) 88 /min Cari [facility] Internal Medicine Work Phone: Comment on above: Pattern: Regular 03-05-2018 15:11-0500 Pulse Oximetry 97 % Cari [facility] Internal Medicine Work Phone: Comment on above: Room air 03-05-2018 15:11-0500 Respiratory Rate 18 /min Cari [facility] Internal Medicine Work Phone: Comment on above: Pattern: Unlabored 03-05-2018 15:11-0500 Weight 121.11 kg Cari [facility] Internal Medicine Work Phone: 02-12-2018 08:06-0500 BMI (Body Mass Index) 44.96 kg/m2 Cari Portillo [facility] Internal Medicine Work Phone: 02-12-2018 08:06-0500 Body Temperature 97.5 [degF] Cari [facility] Internal Medicine Work Phone: Comment on above: Method: Temporal 02-12-2018 08:06-0500 Body weight 122.56 kg Cari [facility] Internal Medicine Work Phone: 02-12-2018 08:06-0500 BP Diastolic 84 mm[Hg] Cari [facility] Internal Medicine Work Phone: Comment on above: Patient Position: Sitting; Cuff Location : Left Arm; Cuff Size: Standard 02-12-2018 08:06-0500 BP Systolic 130 mm[Hg] Cari [facility] Internal Medicine Work Phone: Comment on above: Patient Position: Sitting; Cuff Location : Left Arm; Cuff Size: Standard 02-12-2018 08:06-0500 BSA (Body Surface Area) 2.25 m2 Cari [facility] Internal Medicine Work Phone: 02-12-2018 08:06-0500 Height 165.1 cm Cari [facility] Internal Medicine Work Phone: 02-12-2018 08:06-0500 Pulse (Heart Rate) 87 /min Cari [facility] Internal Medicine Work Phone: Comment on above: Pattern: Regular 02-12-2018 08:06-0500 Pulse Oximetry 97 % Cari [facility] Internal Medicine Work Phone: Comment on above: Room air 02-12-2018 08:06-0500 Respiratory Rate 17 /min Cari [facility] Internal Medicine Work Phone: Comment on above: Pattern: Unlabored 02-12-2018 08:06-0500 Weight 122.56 kg Cari [facility] Internal Medicine Work Phone: 11-06-2017 08:19-0400 BMI (Body Mass Index) 44.96 kg/m2 Cari Portillo [facility] Internal Medicine Work Phone: 11-06-2017 08:19-0400 Body weight 122.56 kg Cari [facility] Internal Medicine Work Phone: 11-06-2017 08:19-0400 BP Diastolic 82 mm[Hg] Cari [facility] Internal Medicine Work Phone: Comment on above: Patient Position: Sitting; Cuff Location : Left Arm; Cuff Size: Large 11-06-2017 08:19-0400 BP Systolic 128 mm[Hg] Cari [facility] Internal Medicine Work Phone: Comment on above: Patient Position: Sitting; Cuff Location : Left Arm; Cuff Size: Large 11-06-2017 08:19-0400 BSA (Body Surface Area) 2.25 m2 Cari [facility] Internal Medicine Work Phone: 11-06-2017 08:19-0400 Height 165.1 cm Cari [facility] Internal Medicine Work Phone: 11-06-2017 08:19-0400 Pulse (Heart Rate) 73 /min Cari [facility] Internal Medicine Work Phone: Comment on above: Pattern: Regular 11-06-2017 08:19-0400 Pulse Oximetry 96 % Cari [facility] Internal Medicine Work Phone: Comment on above: Room air 11-06-2017 08:19-0400 Respiratory Rate 18 /min Cari [facility] Internal Medicine Work Phone: Comment on above: Pattern: Unlabored 11-06-2017 08:19-0400 Weight 122.56 kg Cari [facility] Internal Medicine Work Phone: 10-09-2017 12:59-0400 BMI (Body Mass Index) 45.99 kg/m2 Cari Portillo [facility] Internal Medicine Work Phone: 10-09-2017 12:59-0400 Body weight 125.36 kg Cari [facility] Internal Medicine Work Phone: 10-09-2017 12:59-0400 BP Diastolic 80 mm[Hg] Cari [facility] Internal Medicine Work Phone: Comment on above: Patient Position: Sitting; Cuff Location : Left Arm; Cuff Size: Large 10-09-2017 12:59-0400 BP Systolic 122 mm[Hg] Cari [facility] Internal Medicine Work Phone: Comment on above: Patient Position: Sitting; Cuff Location : Left Arm; Cuff Size: Large 10-09-2017 12:59-0400 BSA (Body Surface Area) 2.27 m2 Cari [facility] Internal Medicine Work Phone: 10-09-2017 12:59-0400 Height 165.1 cm Cari [facility] Internal Medicine Work Phone: 10-09-2017 12:59-0400 Pulse (Heart Rate) 76 /min Cari [facility] Internal Medicine Work Phone: Comment on above: Pattern: Regular 10-09-2017 12:59-0400 Pulse Oximetry 96 % Cari [facility] Internal Medicine Work Phone: Comment on above: Room air 10-09-2017 12:59-0400 Respiratory Rate 18 /min Cari [facility] Internal Medicine Work Phone: Comment on above: Pattern: Unlabored 10-09-2017 12:59-0400 Weight 125.36 kg Cari [facility] Internal Medicine Work Phone: 10-02-2017 15:39-0400 BMI (Body Mass Index) 45.66 kg/m2 Cari Portillo [facility] Internal Medicine Work Phone: 10-02-2017 15:39-0400 Body weight 124.46 kg Cari [facility] Internal Medicine Work Phone: 10-02-2017 15:39-0400 BP Diastolic 84 mm[Hg] Cari [facility] Internal Medicine Work Phone: Comment on above: Patient Position: Sitting; Cuff Location : Left Arm; Cuff Size: Large 10-02-2017 15:39-0400 BP Systolic 128 mm[Hg] Cari [facility] Internal Medicine Work Phone: Comment on above: Patient Position: Sitting; Cuff Location : Left Arm; Cuff Size: Large 10-02-2017 15:39-0400 BSA (Body Surface Area) 2.26 m2 Cari [facility] Internal Medicine Work Phone: 10-02-2017 15:39-0400 Height 165.1 cm Cari [facility] Internal Medicine Work Phone: 10-02-2017 15:39-0400 Pulse (Heart Rate) 77 /min Cari [facility] Internal Medicine Work Phone: Comment on above: Pattern: Regular 10-02-2017 15:39-0400 Pulse Oximetry 97 % Cari [facility] Internal Medicine Work Phone: Comment on above: Room air 10-02-2017 15:39-0400 Respiratory Rate 18 /min Cari [facility] Internal Medicine Work Phone: Comment on above: Pattern: Unlabored 10-02-2017 15:39-0400 Weight 124.46 kg Cari [facility] Internal Medicine Work Phone: 09-25-2017 13:29-0400 BMI (Body Mass Index) 45.66 kg/m2 Cari Portillo [facility] Internal Medicine Work Phone: 09-25-2017 13:29-0400 Body Temperature 97.5 [degF] Cari [facility] Internal Medicine Work Phone: Comment on above: Method: Temporal 09-25-2017 13:29-0400 Body weight 124.46 kg Cari [facility] Internal Medicine Work Phone: 09-25-2017 13:29-0400 BP Diastolic 78 mm[Hg] Cari [facility] Internal Medicine Work Phone: Comment on above: Patient Position: Sitting; Cuff Location : Left Arm; Cuff Size: Large 09-25-2017 13:29-0400 BP Systolic 118 mm[Hg] Cari [facility] Internal Medicine Work Phone: Comment on above: Patient Position: Sitting; Cuff Location : Left Arm; Cuff Size: Large 09-25-2017 13:29-0400 BSA (Body Surface Area) 2.26 m2 Cari [facility] Internal Medicine Work Phone: 09-25-2017 13:29-0400 Height 165.1 cm Cari [facility] Internal Medicine Work Phone: 09-25-2017 13:29-0400 Pulse (Heart Rate) 78 /min Cari [facility] Internal Medicine Work Phone: Comment on above: Pattern: Regular 09-25-2017 13:29-0400 Pulse Oximetry 95 % Cari [facility] Internal Medicine Work Phone: Comment on above: Room air 09-25-2017 13:29-0400 Respiratory Rate 16 /min Cari [facility] Internal Medicine Work Phone: Comment on above: Pattern: Unlabored 09-25-2017 13:29-0400 Weight 124.46 kg Cari [facility] Internal Medicine Work Phone: 07-03-2017 08:12-0400 BMI (Body Mass Index) 44.93 kg/m2 Cari Portillo [facility] Internal Medicine Work Phone: 07-03-2017 08:12-0400 Body Temperature 97.9 [degF] Cari [facility] Internal Medicine Work Phone: Comment on above: Method: Temporal 07-03-2017 08:12-0400 Body weight 122.47 kg Cari [facility] Internal Medicine Work Phone: 07-03-2017 08:12-0400 BP Diastolic 78 mm[Hg] Cari [facility] Internal Medicine Work Phone: Comment on above: Patient Position: Sitting; Cuff Location : Left Arm; Cuff Size: Standard 07-03-2017 08:12-0400 BP Systolic 126 mm[Hg] Cari [facility] Internal Medicine Work Phone: Comment on above: Patient Position: Sitting; Cuff Location : Left Arm; Cuff Size: Standard 07-03-2017 08:12-0400 BSA (Body Surface Area) 2.25 m2 Cari [facility] Internal Medicine Work Phone: 07-03-2017 08:12-0400 Height 165.1 cm Cari [facility] Internal Medicine Work Phone: 07-03-2017 08:12-0400 Pulse (Heart Rate) 79 /min Cari [facility] Internal Medicine Work Phone: Comment on above: Pattern: Regular 07-03-2017 08:12-0400 Pulse Oximetry 95 % Cari [facility] Internal Medicine Work Phone: Comment on above: Room air 07-03-2017 08:12-0400 Respiratory Rate 16 /min Cari [facility] Internal Medicine Work Phone: Comment on above: Pattern: Unlabored 07-03-2017 08:12-0400 Weight 122.47 kg Cari [facility] Internal Medicine Work Phone: 02-27-2017 08:06-0500 BMI (Body Mass Index) 42.45 kg/m2 Cari Portillo [facility] Internal Medicine Work Phone: 02-27-2017 08:06-0500 Body weight 115.72 kg Cari [facility] Internal Medicine Work Phone: 02-27-2017 08:06-0500 BP Diastolic 78 mm[Hg] Cari [facility] Internal Medicine Work Phone: Comment on above: Patient Position: Sitting; Cuff Location : Left Arm; Cuff Size: Standard 02-27-2017 08:06-0500 BP Systolic 122 mm[Hg] Cari [facility] Internal Medicine Work Phone: Comment on above: Patient Position: Sitting; Cuff Location : Left Arm; Cuff Size: Standard 02-27-2017 08:06-0500 BSA (Body Surface Area) 2.19 m2 Cari [facility] Internal Medicine Work Phone: 02-27-2017 08:06-0500 Height 165.1 cm Cari [facility] Internal Medicine Work Phone: 02-27-2017 08:06-0500 Pulse (Heart Rate) 66 /min Cari [facility] Internal Medicine Work Phone: Comment on above: Pattern: Regular 02-27-2017 08:06-0500 Respiratory Rate 16 /min Cari [facility] Internal Medicine Work Phone: Comment on above: Pattern: Unlabored 02-27-2017 08:06-0500 Weight 115.72 kg Cari [facility] Internal Medicine Work Phone: 12-05-2016 09:00-0400 BMI (Body Mass Index) 44.29 kg/m2 [facility] Work Phone: 12-05-2016 09:00-0400 Body weight 120.71 kg Cari [facility] Internal Medicine Work Phone: 12-05-2016 09:00-0400 BP Diastolic 70 mm[Hg] Cari [facility] Internal Medicine Work Phone: Comment on above: Patient Position: Sitting; Cuff Location : Left Arm; Cuff Size: Large 12-05-2016 09:00-0400 BP Systolic 118 mm[Hg] Cari [facility] Internal Medicine Work Phone: Comment on above: Patient Position: Sitting; Cuff Location : Left Arm; Cuff Size: Large 12-05-2016 09:00-0400 BSA (Body Surface Area) 2.23 m2 Cari [facility] Internal Medicine Work Phone: 12-05-2016 09:00-0400 Height 165.1 cm Cari [facility] Internal Medicine Work Phone: 12-05-2016 09:00-0400 Pulse (Heart Rate) 63 /min Cari [facility] Internal Medicine Work Phone: Comment on above: Pattern: Regular 12-05-2016 09:00-0400 Pulse Oximetry 97 % Cari [facility] Internal Medicine Work Phone: Comment on above: Room air 12-05-2016 09:00-0400 Respiratory Rate 18 /min Cari [facility] Internal Medicine Work Phone: Comment on above: Pattern: Unlabored 12-05-2016 09:00-0400 Weight 120.71 kg Cari [facility] Internal Medicine Work Phone: 11-07-2016 14:27-0400 BMI (Body Mass Index) 44.29 kg/m2 Cari Portillo [facility] Internal Medicine Work Phone: 11-07-2016 14:27-0400 Body weight 120.71 kg Cari [facility] Internal Medicine Work Phone: 11-07-2016 14:27-0400 BP Diastolic 82 mm[Hg] Cari [facility] Internal Medicine Work Phone: Comment on above: Patient Position: Sitting; Cuff Location : Left Arm; Cuff Size: Large 11-07-2016 14:27-0400 BP Systolic 118 mm[Hg] Cari [facility] Internal Medicine Work Phone: Comment on above: Patient Position: Sitting; Cuff Location : Left Arm; Cuff Size: Large 11-07-2016 14:27-0400 BSA (Body Surface Area) 2.23 m2 Cari [facility] Internal Medicine Work Phone: 11-07-2016 14:27-0400 Height 165.1 cm Cari [facility] Internal Medicine Work Phone: 11-07-2016 14:27-0400 Pulse (Heart Rate) 81 /min Cari [facility] Internal Medicine Work Phone: Comment on above: Pattern: Regular 11-07-2016 14:27-0400 Pulse Oximetry 96 % Cari [facility] Internal Medicine Work Phone: Comment on above: Room air 11-07-2016 14:27-0400 Respiratory Rate 18 /min Cari [facility] Internal Medicine Work Phone: Comment on above: Pattern: Unlabored 11-07-2016 14:27-0400 Weight 120.71 kg Cari [facility] Internal Medicine Work Phone: 10-15-2016 15:33-0400 BMI (Body Mass Index) 46.01 kg/m2 Cari Portillo [facility] Internal Medicine Work Phone: 10-15-2016 15:33-0400 Body weight 125.42 kg Cari Portillo [facility] Internal Medicine Work Phone: 10-15-2016 15:33-0400 BP Diastolic 78 mm[Hg] Cari Portillo [facility] Internal Medicine Work Phone: Comment on above: Patient Position: Sitting; Cuff Location : Left Arm; Cuff Size: Large 10-15-2016 15:33-0400 BP Systolic 118 mm[Hg] Cari Portillo [facility] Internal Medicine Work Phone: Comment on above: Patient Position: Sitting; Cuff Location : Left Arm; Cuff Size: Large 10-15-2016 15:33-0400 BSA (Body Surface Area) 2.27 m2 Cari Portillo [facility] Internal Medicine Work Phone: 10-15-2016 15:33-0400 Height 165.1 cm Cari Portillo [facility] Internal Medicine Work Phone: 10-15-2016 15:33-0400 Pulse (Heart Rate) 72 /min Cari Portillo [facility] Internal Medicine Work Phone: Comment on above: Pattern: Regular 10-15-2016 15:33-0400 Pulse Oximetry 98 % Cari Portillo [facility] Internal Medicine Work Phone: Comment on above: Room air 10-15-2016 15:33-0400 Respiratory Rate 16 /min Cari Portillo [facility] Internal Medicine Work Phone: Comment on above: Pattern: Unlabored 10-15-2016 15:33-0400 Weight 125.42 kg Cari Portillo [facility] Internal Medicine Work Phone: 08-06-2016 16:08-0400 BMI (Body Mass Index) 46.01 kg/m2 Cari Portillo [facility] Internal Medicine Work Phone: 08-06-2016 16:08-0400 Body weight 125.42 kg Cari Portillo [facility] Internal Medicine Work Phone: 08-06-2016 16:08-0400 BP Diastolic 80 mm[Hg] Cari Portillo [facility] Internal Medicine Work Phone: Comment on above: Patient Position: Sitting; Cuff Location : Left Arm; Cuff Size: Large 08-06-2016 16:08-0400 BP Systolic 128 mm[Hg] Cari Portillo [facility] Internal Medicine Work Phone: Comment on above: Patient Position: Sitting; Cuff Location : Left Arm; Cuff Size: Large 08-06-2016 16:08-0400 BSA (Body Surface Area) 2.27 m2 Cari Portillo [facility] Internal Medicine Work Phone: 08-06-2016 16:08-0400 Height 165.1 cm Cari Portillo [facility] Internal Medicine Work Phone: 08-06-2016 16:08-0400 Pulse (Heart Rate) 81 /min Cari Portillo [facility] Internal Medicine Work Phone: Comment on above: Pattern: Regular 08-06-2016 16:08-0400 Pulse Oximetry 95 % Cari Portillo [facility] Internal Medicine Work Phone: Comment on above: Room air 08-06-2016 16:08-0400 Respiratory Rate 18 /min Cari Portillo [facility] Internal Medicine Work Phone: Comment on above: Pattern: Unlabored 08-06-2016 16:08-0400 Weight 125.42 kg Cari Portillo [facility] Internal Medicine Work Phone: 05-16-2016 14:35-0400 BMI (Body Mass Index) 45.28 kg/m2 Cari Portillo [facility] Internal Medicine Work Phone: 05-16-2016 14:35-0400 Body Temperature 97.6 [degF] Cari Portillo [facility] Internal Medicine Work Phone: 05-16-2016 14:35-0400 Body weight 123.44 kg Cari Portillo [facility] Internal Medicine Work Phone: 05-16-2016 14:35-0400 BP Diastolic 80 mm[Hg] Cari Portillo [facility] Internal Medicine Work Phone: Comment on above: Patient Position: Sitting; Cuff Location : Left Arm; Cuff Size: Standard 05-16-2016 14:35-0400 BP Systolic 120 mm[Hg] Cari Portillo [facility] Internal Medicine Work Phone: Comment on above: Patient Position: Sitting; Cuff Location : Left Arm; Cuff Size: Standard 05-16-2016 14:35-0400 BSA (Body Surface Area) 2.25 m2 Cari Portillo [facility] Internal Medicine Work Phone: 05-16-2016 14:35-0400 Height 165.1 cm Cari Portillo [facility] Internal Medicine Work Phone: 05-16-2016 14:35-0400 Pulse (Heart Rate) 88 /min Cari Portillo [facility] Internal Medicine Work Phone: Comment on above: Pattern: Regular 05-16-2016 14:35-0400 Pulse Oximetry 96 % Cari Portillo [facility] Internal Medicine Work Phone: Comment on above: Room air 05-16-2016 14:35-0400 Respiratory Rate 16 /min Cari Portillo [facility] Internal Medicine Work Phone: Comment on above: Pattern: Unlabored 05-16-2016 14:35-0400 Weight 123.44 kg Cari Portillo [facility] Internal Medicine Work Phone: 04-20-2016 13:36-0500 BMI (Body Mass Index) 45.28 kg/m2 Cari Portillo [facility] Internal Medicine Work Phone: 04-20-2016 13:36-0500 Body weight 123.44 kg Cari Portillo [facility] Internal Medicine Work Phone: 04-20-2016 13:36-0500 BP Diastolic 78 mm[Hg] Cari Portillo [facility] Internal Medicine Work Phone: Comment on above: Patient Position: Sitting; Cuff Location : Left Arm; Cuff Size: Large 04-20-2016 13:36-0500 BP Systolic 122 mm[Hg] Cari Portillo [facility] Internal Medicine Work Phone: Comment on above: Patient Position: Sitting; Cuff Location : Left Arm; Cuff Size: Large 04-20-2016 13:36-0500 BSA (Body Surface Area) 2.25 m2 Cari Portillo [facility] Internal Medicine Work Phone: 04-20-2016 13:36-0500 Height 165.1 cm Cari Portillo [facility] Internal Medicine Work Phone: 04-20-2016 13:36-0500 Pulse (Heart Rate) 76 /min Cari Portillo [facility] Internal Medicine Work Phone: Comment on above: Pattern: Regular 04-20-2016 13:36-0500 Pulse Oximetry 97 % Cari Portillo [facility] Internal Medicine Work Phone: Comment on above: Room air 04-20-2016 13:36-0500 Respiratory Rate 18 /min Cari Portillo [facility] Internal Medicine Work Phone: Comment on above: Pattern: Unlabored 04-20-2016 13:36-0500 Weight 123.44 kg Cari Portillo [facility] Internal Medicine Work Phone: 04-02-2016 15:31-0500 BMI (Body Mass Index) 44.99 kg/m2 Cari Portillo [facility] Internal Medicine Work Phone: 04-02-2016 15:31-0500 Body weight 122.64 kg Cari Portillo [facility] Internal Medicine Work Phone: 04-02-2016 15:31-0500 BP Diastolic 82 mm[Hg] Cari Portillo [facility] Internal Medicine Work Phone: Comment on above: Patient Position: Sitting; Cuff Location : Left Arm; Cuff Size: Large 04-02-2016 15:31-0500 BP Systolic 144 mm[Hg] Cari Portillo [facility] Internal Medicine Work Phone: Comment on above: Patient Position: Sitting; Cuff Location : Left Arm; Cuff Size: Large 04-02-2016 15:31-0500 BSA (Body Surface Area) 2.25 m2 Cari Portillo [facility] Internal Medicine Work Phone: 04-02-2016 15:31-0500 Height 165.1 cm Cari Portillo [facility] Internal Medicine Work Phone: 04-02-2016 15:31-0500 Pulse (Heart Rate) 88 /min Cari Portillo [facility] Internal Medicine Work Phone: Comment on above: Pattern: Regular 04-02-2016 15:31-0500 Pulse Oximetry 98 % Cari Portillo [facility] Internal Medicine Work Phone: Comment on above: Room air 04-02-2016 15:31-0500 Respiratory Rate 18 /min Cari Portillo [facility] Internal Medicine Work Phone: Comment on above: Pattern: Unlabored 04-02-2016 15:31-0500 Weight 122.64 kg Cari Portillo [facility] Internal Medicine Work Phone: 03-28-2016 08:55-0500 BMI (Body Mass Index) 44.99 kg/m2 Cari [facility] Internal Medicine Work Phone: 03-28-2016 08:55-0500 Body weight 122.64 kg Cari Portillo [facility] Internal Medicine Work Phone: 03-28-2016 08:55-0500 BP Diastolic 72 mm[Hg] Cari Portillo [facility] Internal Medicine Work Phone: Comment on above: Patient Position: Sitting; Cuff Location : Left Arm; Cuff Size: Large 03-28-2016 08:55-0500 BP Systolic 120 mm[Hg] Cari Portillo [facility] Internal Medicine Work Phone: Comment on above: Patient Position: Sitting; Cuff Location : Left Arm; Cuff Size: Large 03-28-2016 08:55-0500 BSA (Body Surface Area) 2.25 m2 Cari Portillo [facility] Internal Medicine Work Phone: 03-28-2016 08:55-0500 Height 165.1 cm Cari Portillo [facility] Internal Medicine Work Phone: 03-28-2016 08:55-0500 Pulse (Heart Rate) 71 /min Cari Portillo [facility] Internal Medicine Work Phone: Comment on above: Pattern: Regular 03-28-2016 08:55-0500 Pulse Oximetry 98 % Cari Portillo [facility] Internal Medicine Work Phone: Comment on above: Room air 03-28-2016 08:55-0500 Respiratory Rate 18 /min Cari Portillo [facility] Internal Medicine Work Phone: Comment on above: Pattern: Unlabored 03-28-2016 08:55-0500 Weight 122.64 kg Cari Portillo [facility] Internal Medicine Work Phone: 11-23-2015 08:56-0400 BMI (Body Mass Index) 42.45 kg/m2 Cari [facility] Internal Medicine Work Phone: 11-23-2015 08:56-0400 Body weight 115.72 kg Cari Portillo [facility] Internal Medicine Work Phone: 11-23-2015 08:56-0400 BP Diastolic 78 mm[Hg] Cari Portillo [facility] Internal Medicine Work Phone: Comment on above: Patient Position: Sitting; Cuff Location : Left Arm; Cuff Size: Large 11-23-2015 08:56-0400 BP Systolic 118 mm[Hg] Cari Portillo [facility] Internal Medicine Work Phone: Comment on above: Patient Position: Sitting; Cuff Location : Left Arm; Cuff Size: Large 11-23-2015 08:56-0400 BSA (Body Surface Area) 2.19 m2 Cari Portillo [facility] Internal Medicine Work Phone: 11-23-2015 08:56-0400 Height 165.1 cm Cari Portillo [facility] Internal Medicine Work Phone: 11-23-2015 08:56-0400 Pulse (Heart Rate) 78 /min Cari Portillo [facility] Internal Medicine Work Phone: Comment on above: Pattern: Regular 11-23-2015 08:56-0400 Pulse Oximetry 97 % Cari Portillo [facility] Internal Medicine Work Phone: Comment on above: Room air 11-23-2015 08:56-0400 Respiratory Rate 18 /min Cari Portillo [facility] Internal Medicine Work Phone: Comment on above: Pattern: Unlabored 11-23-2015 08:56-0400 Weight 115.72 kg Cari Portillo [facility] Internal Medicine Work Phone: 09-14-2015 13:16-0400 BMI (Body Mass Index) 42.68 kg/m2 Cari Portillo [facility] Internal Medicine Work Phone: 09-14-2015 13:16-0400 Body weight 116.35 kg Cari Portillo [facility] Internal Medicine Work Phone: 09-14-2015 13:16-0400 BP Diastolic 80 mm[Hg] Cari Portillo [facility] Internal Medicine Work Phone: Comment on above: Patient Position: Sitting; Cuff Location : Left Arm; Cuff Size: Large 09-14-2015 13:16-0400 BP Systolic 120 mm[Hg] Cari Portillo [facility] Internal Medicine Work Phone: Comment on above: Patient Position: Sitting; Cuff Location : Left Arm; Cuff Size: Large 09-14-2015 13:16-0400 BSA (Body Surface Area) 2.2 m2 Cari Portillo [facility] Internal Medicine Work Phone: 09-14-2015 13:16-0400 Height 165.1 cm Cari Portillo [facility] Internal Medicine Work Phone: 09-14-2015 13:16-0400 Pulse (Heart Rate) 75 /min Cari Portillo [facility] Internal Medicine Work Phone: Comment on above: Pattern: Regular 09-14-2015 13:16-0400 Pulse Oximetry 95 % Cari Portillo [facility] Internal Medicine Work Phone: Comment on above: Room air 09-14-2015 13:16-0400 Respiratory Rate 18 /min Cari Portillo [facility] Internal Medicine Work Phone: Comment on above: Pattern: Unlabored 09-14-2015 13:16-0400 Weight 116.35 kg Cari Portillo [facility] Internal Medicine Work Phone: 08-17-2015 09:12-0400 BMI (Body Mass Index) 43.97 kg/m2 Cari Portillo [facility] Internal Medicine Work Phone: 08-17-2015 09:12-0400 Body weight 119.86 kg Cari Portillo [facility] Internal Medicine Work Phone: 08-17-2015 09:12-0400 BP Diastolic 82 mm[Hg] Cari Portillo [facility] Internal Medicine Work Phone: Comment on above: Patient Position: Sitting; Cuff Location : Left Arm; Cuff Size: Large 08-17-2015 09:12-0400 BP Systolic 132 mm[Hg] Cari Portillo [facility] Internal Medicine Work Phone: Comment on above: Patient Position: Sitting; Cuff Location : Left Arm; Cuff Size: Large 08-17-2015 09:12-0400 BSA (Body Surface Area) 2.23 m2 Cari Portillo [facility] Internal Medicine Work Phone: 08-17-2015 09:12-0400 Height 165.1 cm Cari Portillo [facility] Internal Medicine Work Phone: 08-17-2015 09:12-0400 Pulse (Heart Rate) 76 /min Cari Portillo [facility] Internal Medicine Work Phone: Comment on above: Pattern: Regular 08-17-2015 09:12-0400 Pulse Oximetry 96 % Cari Portillo [facility] Internal Medicine Work Phone: Comment on above: Room air 08-17-2015 09:12-0400 Respiratory Rate 18 /min Cari Portillo [facility] Internal Medicine Work Phone: Comment on above: Pattern: Unlabored 08-17-2015 09:12-0400 Weight 119.86 kg Cari Portillo [facility] Internal Medicine Work Phone: 03-23-2015 10:01-0500 BMI (Body Mass Index) 47.09 kg/m2 Cari Portillo [facility] Internal Medicine Work Phone: 03-23-2015 10:01-0500 Body Temperature 98.3 [degF] Cari Portillo [facility] Internal Medicine Work Phone: Comment on above: Method: Temporal 03-23-2015 10:-0500 Body weight 128.37 kg Cari Portillo [facility] Internal Medicine Work Phone: 03-23-2015 10:01-0500 BP Diastolic 74 mm[Hg] Cari Portillo [facility] Internal Medicine Work Phone: Comment on above: Patient Position: Sitting; Cuff Location : Left Arm; Cuff Size: Large 03-23-2015 10:01-0500 BP Systolic 126 mm[Hg] Cari Portillo [facility] Internal Medicine Work Phone: Comment on above: Patient Position: Sitting; Cuff Location : Left Arm; Cuff Size: Large 03-23-2015 10:01-0500 BSA (Body Surface Area) 2.29 m2 Cari Portillo [facility] Internal Medicine Work Phone: 03-23-2015 10:0500 Height 165.1 cm Cari Portillo [facility] Internal Medicine Work Phone: 03-23-2015 10:01-0500 Pulse (Heart Rate) 88 /min Cari Portillo [facility] Internal Medicine Work Phone: Comment on above: Pattern: Regular 03-23-2015 10:01-0500 Pulse Oximetry 99 % Cari Portillo [facility] Internal Medicine Work Phone: Comment on above: Room air 03-23-2015 10:01-0500 Respiratory Rate 17 /min Cari Portillo [facility] Internal Medicine Work Phone: Comment on above: Pattern: Unlabored 03-23-2015 10:01-0500 Weight 128.37 kg Cari Portillo [facility] Internal Medicine Work Phone: 02-07-2015 16:26-0500 BMI (Body Mass Index) 46.26 kg/m2 Cari Portillo [facility] Internal Medicine Work Phone: 02-07-2015 16:26-0500 Body weight 126.1 kg Cari Portilol [facility] Internal Medicine Work Phone: 02-07-2015 16:26-0500 BP Diastolic 96 mm[Hg] Cari Portillo [facility] Internal Medicine Work Phone: Comment on above: Patient Position: Sitting; Cuff Location : Left Arm; Cuff Size: Standard 02-07-2015 16:26-0500 BP Systolic 129 mm[Hg] Cari Portillo [facility] Internal Medicine Work Phone: Comment on above: Patient Position: Sitting; Cuff Location : Left Arm; Cuff Size: Standard 02-07-2015 16:26-0500 BSA (Body Surface Area) 2.28 m2 Cari Portillo [facility] Internal Medicine Work Phone: 02-07-2015 16:26-0500 Height 165.1 cm Cari Portillo [facility] Internal Medicine Work Phone: 02-07-2015 16:26-0500 Pulse (Heart Rate) 77 /min Cari Portillo [facility] Internal Medicine Work Phone: Comment on above: Pattern: Regular 02-07-2015 16:26-0500 Respiratory Rate 16 /min Cari Portillo [facility] Internal Medicine Work Phone: Comment on above: Pattern: Unlabored 02-07-2015 16:26-0500 Weight 126.1 kg Cari Portillo [facility] Internal Medicine Work Phone: 06-07-2014 16:38-0400 BMI (Body Mass Index) 39.27 kg/m2 Cari Portillo [facility] Internal Medicine Work Phone: 06-07-2014 16:38-0400 Body Temperature 99.4 [degF] Cari Portillo [facility] Internal Medicine Work Phone: 06-07-2014 16:38-0400 Body weight 107.05 kg Cari Portillo [facility] Internal Medicine Work Phone: 06-07-2014 16:38-0400 BP Diastolic 84 mm[Hg] Cari Portillo [facility] Internal Medicine Work Phone: Comment on above: Patient Position: Sitting; Cuff Location : Left Arm; Cuff Size: Large 06-07-2014 16:38-0400 BP Systolic 124 mm[Hg] Cari Portillo [facility] Internal Medicine Work Phone: Comment on above: Patient Position: Sitting; Cuff Location : Left Arm; Cuff Size: Large 06-07-2014 16:38-0400 BSA (Body Surface Area) 2.12 m2 Cari Portillo [facility] Internal Medicine Work Phone: 06-07-2014 16:38-0400 Height 165.1 cm Cari Portillo [facility] Internal Medicine Work Phone: 06-07-2014 16:38-0400 Pulse (Heart Rate) 82 /min Cari Portillo [facility] Internal Medicine Work Phone: Comment on above: Pattern: Regular 06-07-2014 16:38-0400 Respiratory Rate 16 /min Cari Portillo [facility] Internal Medicine Work Phone: Comment on above: Pattern: Unlabored 06-07-2014 16:38-0400 Weight 107.05 kg Cari Portillo [facility] Internal Medicine Work Phone: 02-22-2014 10:16-0500 BMI (Body Mass Index) 44.6 kg/m2 [facility] Work Phone: 02-22-2014 10:16-0500 Body Temperature 99.3 [degF] Cari Portillo [facility] Internal Medicine Work Phone: Comment on above: Method: Oral 02-22-2014 10:16-0500 Body weight 121.56 kg Cari Portillo [facility] Internal Medicine Work Phone: 02-22-2014 10:16-0500 BP Diastolic 78 mm[Hg] Cari Portillo [facility] Internal Medicine Work Phone: Comment on above: Patient Position: Sitting; Cuff Location : Left Arm; Cuff Size: Standard 02-22-2014 10:16-0500 BP Systolic 128 mm[Hg] Cari Portillo [facility] Internal Medicine Work Phone: Comment on above: Patient Position: Sitting; Cuff Location : Left Arm; Cuff Size: Standard 02-22-2014 10:16-0500 BSA (Body Surface Area) 2.24 m2 Cari Portillo [facility] Internal Medicine Work Phone: 02-22-2014 10:16-0500 Height 165.1 cm Cari Portillo [facility] Internal Medicine Work Phone: 02-22-2014 10:16-0500 Pulse (Heart Rate) 78 /min Cari Portillo [facility] Internal Medicine Work Phone: Comment on above: Pattern: Regular 02-22-2014 10:16-0500 Pulse Oximetry 96 % Cari Portillo [facility] Internal Medicine Work Phone: Comment on above: Room air 02-22-2014 10:16-0500 Respiratory Rate 18 /min Cari Portillo [facility] Internal Medicine Work Phone: 02-22-2014 10:16-0500 Weight 121.56 kg Cari Portillo [facility] Internal Medicine Work Phone: 01-18-2014 16:46-0500 BMI (Body Mass Index) 44.6 kg/m2 [facility] Work Phone: 01-18-2014 16:46-0500 Body Temperature 96.9 [degF] Cari Portillo [facility] Internal Medicine Work Phone: Comment on above: Method: Oral 01-18-2014 16:46-0500 Body weight 121.56 kg Cari Portillo [facility] Internal Medicine Work Phone: 01-18-2014 16:46-0500 BP Diastolic 82 mm[Hg] Cari Portillo [facility] Internal Medicine Work Phone: Comment on above: Patient Position: Sitting; Cuff Location : Right Arm; Cuff Size: Large 01-18-2014 16:46-0500 BP Systolic 118 mm[Hg] Cari Portillo [facility] Internal Medicine Work Phone: Comment on above: Patient Position: Sitting; Cuff Location : Right Arm; Cuff Size: Large 01-18-2014 16:46-0500 BSA (Body Surface Area) 2.24 m2 Cari Portillo [facility] Internal Medicine Work Phone: 01-18-2014 16:46-0500 Height 165.1 cm Cari Portillo [facility] Internal Medicine Work Phone: 01-18-2014 16:46-0500 Pulse (Heart Rate) 77 /min Cari Portillo [facility] Internal Medicine Work Phone: Comment on above: Pattern: Regular 01-18-2014 16:46-0500 Pulse Oximetry 97 % Cari Portillo [facility] Internal Medicine Work Phone: Comment on above: Room air 01-18-2014 16:46-0500 Respiratory Rate 20 /min Cari Portillo [facility] Internal Medicine Work Phone: Comment on above: Pattern: Unlabored 01-18-2014 16:46-0500 Weight 121.56 kg Cari Portillo [facility] Internal Medicine Work Phone: 10-19-2013 15:38-0400 BMI (Body Mass Index) 42.77 kg/m2 Cari [facility] Internal Medicine Work Phone: 10-19-2013 15:38-0400 Body Temperature 98.6 [degF] Cari Portillo [facility] Internal Medicine Work Phone: Comment on above: Method: Oral 10-19-2013 15:38-0400 Body weight 116.58 kg Cari Portillo [facility] Internal Medicine Work Phone: 10-19-2013 15:38-0400 BP Diastolic 78 mm[Hg] Cari Portillo [facility] Internal Medicine Work Phone: Comment on above: Patient Position: Sitting; Cuff Location : Left Arm; Cuff Size: Standard 10-19-2013 15:38-0400 BP Systolic 138 mm[Hg] Cari Portillo [facility] Internal Medicine Work Phone: Comment on above: Patient Position: Sitting; Cuff Location : Left Arm; Cuff Size: Standard 10-19-2013 15:38-0400 BSA (Body Surface Area) 2.2 m2 Cari Portillo [facility] Internal Medicine Work Phone: 10-19-2013 15:38-0400 Height 165.1 cm Cari Portillo [facility] Internal Medicine Work Phone: 10-19-2013 15:38-0400 Pulse (Heart Rate) 82 /min Cari Portillo [facility] Internal Medicine Work Phone: Comment on above: Pattern: Regular 10-19-2013 15:38-0400 Pulse Oximetry 96 % Cari Portillo [facility] Internal Medicine Work Phone: Comment on above: Room air 10-19-2013 15:38-0400 Weight 116.58 kg Cari Portillo [facility] Internal Medicine Work Phone: 09-21-2013 16:29-0400 BMI (Body Mass Index) 42.77 kg/m2 Cari [facility] Internal Medicine Work Phone: 09-21-2013 16:29-0400 Body Temperature 97.8 [degF] Cari Portillo [facility] Internal Medicine Work Phone: 09-21-2013 16:29-0400 Body weight 116.58 kg Cari Portillo [facility] Internal Medicine Work Phone: 09-21-2013 16:29-0400 BP Diastolic 86 mm[Hg] Cari Portillo [facility] Internal Medicine Work Phone: Comment on above: Patient Position: Sitting; Cuff Location : Left Arm; Cuff Size: Large 09-21-2013 16:29-0400 BP Systolic 122 mm[Hg] Cari Portillo [facility] Internal Medicine Work Phone: Comment on above: Patient Position: Sitting; Cuff Location : Left Arm; Cuff Size: Large 09-21-2013 16:29-0400 BSA (Body Surface Area) 2.2 m2 Cari Portillo [facility] Internal Medicine Work Phone: 09-21-2013 16:29-0400 Height 165.1 cm Cari Portillo [facility] Internal Medicine Work Phone: 09-21-2013 16:29-0400 Pulse (Heart Rate) 76 /min Cari Portillo [facility] Internal Medicine Work Phone: Comment on above: Pattern: Regular 09-21-2013 16:29-0400 Respiratory Rate 18 /min Cari Portillo [facility] Internal [facility] Work Phone: Comment on above: Pattern: Unlabored 09-21-2013 16:29-0400 Weight 116.58 kg Cari Portillo [facility] Internal Medicine Work Phone: 06-24-2013 09:44-0400 BMI (Body Mass Index) 42.77 kg/m2 Cari Portillo [facility] Internal Medicine Work Phone: 06-24-2013 09:44-0400 Body Temperature 98.4 [degF] Cari Portillo [facility] Internal Medicine Work Phone: 06-24-2013 09:44-0400 Body weight 116.58 kg Cari Portillo [facility] Internal Medicine Work Phone: 06-24-2013 09:44-0400 BP Diastolic 70 mm[Hg] Cari Portillo [facility] Internal Medicine Work Phone: Comment on above: Patient Position: Sitting; Cuff Location : Left Arm; Cuff Size: Large 06-24-2013 09:44-0400 BP Systolic 120 mm[Hg] Cari Portillo [facility] Internal Medicine Work Phone: Comment on above: Patient Position: Sitting; Cuff Location : Left Arm; Cuff Size: Large 06-24-2013 09:44-0400 BSA (Body Surface Area) 2.2 m2 Cari Portillo [facility] Internal Medicine Work Phone: 06-24-2013 09:44-0400 Height 165.1 cm Cari Portillo [facility] Medicine Work Phone: 06-24-2013 09:44-0400 Pulse (Heart Rate) 78 /min Cari Portillo [facility] Internal Medicine Work Phone: Comment on above: Pattern: Regular 06-24-2013 09:44-0400 Respiratory Rate 18 /min Cari Portillo [facility] Internal Medicine Work Phone: Comment on above: Pattern: Unlabored 06-24-2013 09:44-0400 Weight 116.58 kg Cari Portillo [facility] Internal Medicine Work Phone: 05-18-2013 15:52-0400 BMI (Body Mass Index) 44.6 kg/m2 Cari Portillo [facility] Internal Medicine Work Phone: 05-18-2013 15:52-0400 Body Temperature 98.6 [degF] Cari Portillo [facility] Internal Medicine Work Phone: 05-18-2013 15:52-0400 Body weight 121.56 kg Cari Portillo [facility] Internal Medicine Work Phone: 05-18-2013 15:52-0400 BP Diastolic 84 mm[Hg] Cari Portillo [facility] Internal Medicine Work Phone: Comment on above: Patient Position: Sitting; Cuff Location : Left Arm; Cuff Size: Large 05-18-2013 15:52-0400 BP Systolic 122 mm[Hg] Cari Portillo [facility] Internal [facility] Work Phone: Comment on above: Patient Position: Sitting; Cuff Location : Left Arm; Cuff Size: Large 05-18-2013 15:52-0400 BSA (Body Surface Area) 2.24 m2 Cari Portillo [facility] Internal Medicine Work Phone: 05-18-2013 15:52-0400 Height 165.1 cm Cari Portillo [facility] Medicine Work Phone: 05-18-2013 15:52-0400 Pulse (Heart Rate) 84 /min Cari Portillo [facility] Internal Medicine Work Phone: Comment on above: Pattern: Regular 05-18-2013 15:52-0400 Respiratory Rate 18 /min Cari Portillo [facility] Internal [facility] Work Phone: Comment on above: Pattern: Unlabored 05-18-2013 15:52-0400 Weight 121.56 kg Cari Portillo [facility] Internal Medicine Work Phone: 04-24-2013 13:38-0500 BMI (Body Mass Index) 44.1 kg/m2 Cari Portillo [facility] Internal Medicine Work Phone: 04-24-2013 13:38-0500 Body Temperature 98.1 [degF] Cari Portillo [facility] Internal Medicine Work Phone: Comment on above: Method: Oral 04-24-2013 13:38-0500 Body weight 120.2 kg Cari Portillo [facility] Internal Medicine Work Phone: 04-24-2013 13:38-0500 BP Diastolic 84 mm[Hg] Cari Portillo [facility] Internal Medicine Work Phone: Comment on above: Patient Position: Sitting; Cuff Location : Left Arm; Cuff Size: Standard 04-24-2013 13:38-0500 BP Systolic 132 mm[Hg] Cari Portillo [facility] Internal Medicine Work Phone: Comment on above: Patient Position: Sitting; Cuff Location : Left Arm; Cuff Size: Standard 04-24-2013 13:38-0500 BSA (Body Surface Area) 2.23 m2 Cari Portillo [facility] Internal [facility] Work Phone: 04-24-2013 13:38-0500 Height 165.1 cm Cari Portillo [facility] Internal [facility] Work Phone: 04-24-2013 13:38-0500 Pulse (Heart Rate) 76 /min Cari Portillo [facility] Internal Medicine Work Phone: Comment on above: Pattern: Regular 04-24-2013 13:38-0500 Pulse Oximetry 97 % Cari Portillo [facility] Internal Medicine Work Phone: Comment on above: Room air 04-24-2013 13:38-0500 Respiratory Rate 18 /min Cari Portillo [facility] Internal [facility] Work Phone: Comment on above: Pattern: Unlabored 04-24-2013 13:38-0500 Weight 120.2 kg Cari Portillo [facility] Internal Medicine Work Phone: 01-07-2013 11:18-0500 BMI (Body Mass Index) 42.77 kg/m2 Cari Portillo [facility] Internal Medicine Work Phone: 01-07-2013 11:18-0500 Body Temperature 97.1 [degF] Cari Portillo [facility] Work Phone: 01-07-2013 11:18-0500 Body weight 116.58 kg Cari Portillo [facility] Internal [facility] Work Phone: 01-07-2013 11:18-0500 BP Diastolic 80 mm[Hg] Cari Portillo [facility] Internal [facility] Work Phone: Comment on above: Patient Position: Sitting; Cuff Location : Left Arm; Cuff Size: Large 01-07-2013 11:18-0500 BP Systolic 136 mm[Hg] Cari Portillo [facility] Internal [facility] Work Phone: Comment on above: Patient Position: Sitting; Cuff Location : Left Arm; Cuff Size: Large 01-07-2013 11:18-0500 BSA (Body Surface Area) 2.2 m2 Cari Portillo [facility] Work Phone: 01-07-2013 11:18-0500 Height 165.1 cm Cari Portillo [facility] Work Phone: 01-07-2013 11:18-0500 Pulse (Heart Rate) 76 /min Cari Portillo [facility] Work Phone: Comment on above: Pattern: Regular 01-07-2013 11:18-0500 Respiratory Rate 16 /min Cari Portillo [facility] Internal [facility] Work Phone: Comment on above: Pattern: Unlabored 01-07-2013 11:18-0500 Weight 116.58 kg Cari Portillo [facility] Work Phone: 12-17-2012 15:24-0400 BMI (Body Mass Index) 43.12 kg/m2 Cari Portillo [facility] Internal Medicine Work Phone: 12-17-2012 15:24-0400 Body Temperature 98.1 [degF] Cari Portillo [facility] Internal [facility] Work Phone: Comment on above: Method: Oral 12-17-2012 15:24-0400 Body weight 117.54 kg Cari Portillo [facility] Work Phone: 12-17-2012 15:24-0400 BP Diastolic 78 mm[Hg] Cari Portillo [facility] Work Phone: Comment on above: Patient Position: Sitting; Cuff Location : Left Arm; Cuff Size: Standard 12-17-2012 15:24-0400 BP Systolic 124 mm[Hg] Cari Portillo [facility] Internal [facility] Work Phone: Comment on above: Patient Position: Sitting; Cuff Location : Left Arm; Cuff Size: Standard 12-17-2012 15:24-0400 BSA (Body Surface Area) 2.21 m2 Cari Portillo [facility] Work Phone: 12-17-2012 15:24-0400 Height 165.1 cm Cari Portillo [facility] Work Phone: 12-17-2012 15:24-0400 Pulse (Heart Rate) 78 /min Cari Portillo [facility] Internal [facility] Work Phone: Comment on above: Pattern: Regular 12-17-2012 15:24-0400 Pulse Oximetry 98 % Cari Portillo [facility] Internal [facility] Work Phone: Comment on above: Room air 12-17-2012 15:24-0400 Respiratory Rate 17 /min Cari Portillo [facility] Internal [facility] Work Phone: Comment on above: Pattern: Unlabored 12-17-2012 15:24-0400 Weight 117.54 kg Cari Portillo [facility] Work Phone: 12-02-2012 13:37-0400 BMI (Body Mass Index) 43.12 kg/m2 Cari Portillo [facility] Internal Medicine Work Phone: 12-02-2012 13:37-0400 Body Temperature 98.2 [degF] Cari Portillo [facility] Internal [facility] Work Phone: Comment on above: Method: Oral 12-02-2012 13:37-0400 Body weight 117.54 kg Cari Portillo [facility] Work Phone: 12-02-2012 13:37-0400 BP Diastolic 84 mm[Hg] Cari Portillo [facility] Work Phone: Comment on above: Patient Position: Sitting; Cuff Location : Left Arm; Cuff Size: Standard 12-02-2012 13:37-0400 BP Systolic 140 mm[Hg] Cari Portillo [facility] Work Phone: Comment on above: Patient Position: Sitting; Cuff Location : Left Arm; Cuff Size: Standard 12-02-2012 13:37-0400 BSA (Body Surface Area) 2.21 m2 Cari Portillo [facility] Work Phone: 12-02-2012 13:37-0400 Height 165.1 cm Cari Portillo [facility] Work Phone: 12-02-2012 13:37-0400 Pulse (Heart Rate) 88 /min Cari Portillo [facility] Work Phone: Comment on above: Pattern: Regular 12-02-2012 13:37-0400 Pulse Oximetry 98 % Cari Portillo [facility] Work Phone: Comment on above: Room air 12-02-2012 13:37-0400 Weight 117.54 kg Cari Portillo [facility] Work Phone: 09-23-2012 13:38-0400 BMI (Body Mass Index) 43.12 kg/m2 [facility] Work Phone: 09-23-2012 13:38-0400 Body Temperature 98.4 [degF] Cari Portillo [facility] Work Phone: Comment on above: Method: Oral 09-23-2012 13:38-0400 Body weight 117.54 kg Cari Portillo [facility] Work Phone: 09-23-2012 13:38-0400 BP Diastolic 82 mm[Hg] Cari Portillo [facility] Work Phone: Comment on above: Patient Position: Sitting; Cuff Location : Left Arm; Cuff Size: Standard 09-23-2012 13:38-0400 BP Systolic 130 mm[Hg] Cari Portillo [facility] Work Phone: Comment on above: Patient Position: Sitting; Cuff Location : Left Arm; Cuff Size: Standard 09-23-2012 13:38-0400 BSA (Body Surface Area) 2.21 m2 Cari Portillo [facility] Work Phone: 09-23-2012 13:38-0400 Height 165.1 cm Cari Portillo [facility] Work Phone: 09-23-2012 13:38-0400 Pulse (Heart Rate) 78 /min Cari Portillo [facility] Work Phone: Comment on above: Pattern: Regular 09-23-2012 13:38-0400 Respiratory Rate 17 /min Cari Portillo [facility] Work Phone: 09-23-2012 13:38-0400 Weight 117.54 kg Cari Portillo [facility] Work Phone: 07-14-2012 15:19-0400 BMI (Body Mass Index) 40.77 kg/m2 [facility] Work Phone: 07-14-2012 15:0400 Body Temperature 98 [degF] Cari Portillo [facility] Work Phone: Comment on above: Method: Oral 07-14-2012 15:0400 Body weight 111.13 kg Cari Portillo [facility] Work Phone: 07-14-2012 15:19-0400 BP Diastolic 74 mm[Hg] Cari Portillo [facility] Work Phone: Comment on above: Patient Position: Sitting; Cuff Location : Left Arm; Cuff Size: Standard 07-14-2012 15:19-0400 BP Systolic 128 mm[Hg] Cari Portillo [facility] Work Phone: Comment on above: Patient Position: Sitting; Cuff Location : Left Arm; Cuff Size: Standard 07-14-2012 15:0400 BSA (Body Surface Area) 2.16 m2 Cari Portillo [facility] Work Phone: 07-14-2012 15:0400 Height 165.1 cm Cari Portillo [facility] Work Phone: 07-14-2012 15:19-0400 Pulse (Heart Rate) 72 /min Cari Portillo [facility] Work Phone: Comment on above: Pattern: Regular 07-14-2012 15:0400 Pulse Oximetry 97 % Cari Portillo [facility] Work Phone: Comment on above: Room air 07-14-2012 15:-0400 Respiratory Rate 18 /min Cari Portillo [facility] Work Phone: 07-14-2012 15:19-0400 Weight 111.13 kg Cari Portillo [facility] Work Phone: 04-02-2012 12:13-0500 BMI (Body Mass Index) 40.77 kg/m2 Cari Portillo [facility] Internal Medicine Work Phone: 04-02-2012 12:13-0500 Body Temperature 97.4 [degF] Cari Portillo [facility] Internal [facility] Work Phone: Comment on above: Method: Oral 04-02-2012 12:13-0500 Body weight 111.13 kg Cari Portillo [facility] Work Phone: 04-02-2012 12:13-0500 BP Diastolic 84 mm[Hg] Cari Portillo [facility] Work Phone: Comment on above: Patient Position: Sitting; Cuff Location : Left Arm; Cuff Size: Standard 04-02-2012 12:13-0500 BP Systolic 130 mm[Hg] Cari Portillo [facility] Internal [facility] Work Phone: Comment on above: Patient Position: Sitting; Cuff Location : Left Arm; Cuff Size: Standard 04-02-2012 12:13-0500 BSA (Body Surface Area) 2.16 m2 Cari Portillo [facility] Internal [facility] Work Phone: 04-02-2012 12:13-0500 Height 165.1 cm Cari Portillo [facility] Work Phone: 04-02-2012 12:13-0500 Pulse (Heart Rate) 64 /min Cari Portillo [facility] Internal [facility] Work Phone: Comment on above: Pattern: Regular 04-02-2012 12:13-0500 Respiratory Rate 16 /min Cari Portillo [facility] Work Phone: Comment on above: Pattern: Unlabored 04-02-2012 12:13-0500 Weight 111.13 kg Cari Portillo [facility] Work Phone: 03-03-2012 16:02-0500 BMI (Body Mass Index) 41.27 kg/m2 Cari Portillo [facility] Internal Medicine Work Phone: 03-03-2012 16:02-0500 Body Temperature 97.5 [degF] Cari Portillo [facility] Work Phone: 03-03-2012 16:02-0500 Body weight 112.49 kg Cari Portillo [facility] Work Phone: 03-03-2012 16:02-0500 BP Diastolic 80 mm[Hg] Cari Portillo [facility] Work Phone: Comment on above: Patient Position: Sitting; Cuff Location : Left Arm; Cuff Size: Large 03-03-2012 16:02-0500 BP Systolic 128 mm[Hg] Cari Portillo [facility] Work Phone: Comment on above: Patient Position: Sitting; Cuff Location : Left Arm; Cuff Size: Large 03-03-2012 16:02-0500 BSA (Body Surface Area) 2.17 m2 Cari Portillo [facility] Work Phone: 03-03-2012 16:02-0500 Height 165.1 cm Cari Portillo [facility] Work Phone: 03-03-2012 16:02-0500 Pulse (Heart Rate) 72 /min Cari Portillo [facility] Work Phone: Comment on above: Pattern: Regular 03-03-2012 16:02-0500 Respiratory Rate 18 /min Cari Portillo [facility] Work Phone: Comment on above: Pattern: Unlabored 03-03-2012 16:02-0500 Weight 112.49 kg Cari Portillo [facility] Work Phone: 02-13-2012 15:38-0500 BMI (Body Mass Index) 38.44 kg/m2 Cari Portillo [facility] Internal Medicine Work Phone: 02-13-2012 15:38-0500 Body Temperature 98.2 [degF] Cari Portillo [facility] Internal [facility] Work Phone: Comment on above: Method: Oral 02-13-2012 15:38-0500 Body weight 104.78 kg Cari Portillo [facility] Work Phone: 02-13-2012 15:38-0500 BP Diastolic 74 mm[Hg] Cari Portillo [facility] Work Phone: Comment on above: Patient Position: Sitting; Cuff Location : Left Arm; Cuff Size: Standard 02-13-2012 15:38-0500 BP Systolic 128 mm[Hg] Cari Portillo [facility] Work Phone: Comment on above: Patient Position: Sitting; Cuff Location : Left Arm; Cuff Size: Standard 02-13-2012 15:38-0500 BSA (Body Surface Area) 2.1 m2 Cari Portillo [facility] Work Phone: 02-13-2012 15:38-0500 Height 165.1 cm Cari Portillo [facility] Work Phone: 02-13-2012 15:38-0500 Pulse (Heart Rate) 82 /min Cari Portillo [facility] Work Phone: Comment on above: Pattern: Regular 02-13-2012 15:38-0500 Respiratory Rate 18 /min Cari Portillo [facility] Work Phone: 02-13-2012 15:38-0500 Weight 104.78 kg Cari Portillo [facility] Work Phone: 10-31-2011 16:07-0400 BMI (Body Mass Index) 38.44 kg/m2 Cari Portillo [facility] Internal Medicine Work Phone: 10-31-2011 16:07-0400 Body Temperature 97 [degF] Cari Portillo [facility] Work Phone: 10-31-2011 16:07-0400 Body weight 104.78 kg Cari Portillo [facility] Work Phone: 10-31-2011 16:07-0400 BP Diastolic 84 mm[Hg] Cari Portillo [facility] Work Phone: Comment on above: Patient Position: Sitting; Cuff Location : Left Arm; Cuff Size: Large 10-31-2011 16:07-0400 BP Systolic 124 mm[Hg] Cari Portillo [facility] Work Phone: Comment on above: Patient Position: Sitting; Cuff Location : Left Arm; Cuff Size: Large 10-31-2011 16:07-0400 BSA (Body Surface Area) 2.1 m2 Cari Portillo [facility] Work Phone: 10-31-2011 16:07-0400 Height 165.1 cm Cari Portillo [facility] Work Phone: 10-31-2011 16:07-0400 Pulse (Heart Rate) 72 /min Cari Portillo [facility] Work Phone: Comment on above: Pattern: Regular 10-31-2011 16:07-0400 Respiratory Rate 18 /min Cari Portillo [facility] Work Phone: Comment on above: Pattern: Unlabored 10-31-2011 16:07-0400 Weight 104.78 kg Cari Portillo [facility] Work Phone: 06-04-2011 17:00-0400 BMI (Body Mass Index) 38.77 kg/m2 Cari Portillo [facility] Internal [facility] Work Phone: 06-04-2011 17:00-0400 Body Temperature 96.1 [degF] Cari Portillo [facility] Work Phone: 06-04-2011 17:00-0400 Body weight 105.69 kg Cari Portillo [facility] Work Phone: 06-04-2011 17:00-0400 BP Diastolic 80 mm[Hg] Cari Portillo [facility] Work Phone: Comment on above: Patient Position: Sitting; Cuff Location : Left Arm; Cuff Size: Large 06-04-2011 17:00-0400 BP Systolic 110 mm[Hg] Cari Portillo [facility] Work Phone: Comment on above: Patient Position: Sitting; Cuff Location : Left Arm; Cuff Size: Large 06-04-2011 17:00-0400 BSA (Body Surface Area) 2.11 m2 Cari Portillo [facility] Work Phone: 06-04-2011 17:00-0400 Height 165.1 cm Cari Portillo [facility] Work Phone: 06-04-2011 17:00-0400 Pulse (Heart Rate) 76 /min Cari Portillo [facility] Work Phone: Comment on above: Pattern: Regular 06-04-2011 17:00-0400 Respiratory Rate 18 /min Cair Portillo [facility] Work Phone: Comment on above: Pattern: Unlabored 06-04-2011 17:00-0400 Weight 105.69 kg Cari Portillo [facility] Work Phone: 05-04-2011 07:41-0500 BMI (Body Mass Index) 42.1 kg/m2 Cari Portillo [facility] Internal Medicine Work Phone: 05-04-2011 07:41-0500 Body Temperature 97.9 [degF] Cari Portillo [facility] Work Phone: Comment on above: Method: Oral 05-04-2011 07:41-0500 Body weight 114.76 kg Cari Portillo [facility] Work Phone: 05-04-2011 07:41-0500 BP Diastolic 80 mm[Hg] Cari Portillo [facility] Work Phone: Comment on above: Patient Position: Sitting; Cuff Location : Left Arm; Cuff Size: Standard 05-04-2011 07:41-0500 BP Systolic 132 mm[Hg] Cari Portillo [facility] Work Phone: Comment on above: Patient Position: Sitting; Cuff Location : Left Arm; Cuff Size: Standard 05-04-2011 07:41-0500 BSA (Body Surface Area) 2.19 m2 Cari Portillo [facility] Work Phone: 05-04-2011 07:41-0500 Height 165.1 cm Cari Portillo [facility] Work Phone: 05-04-2011 07:41-0500 Pulse (Heart Rate) 70 /min Cari [facility] Work Phone: Comment on above: Pattern: Regular 05-04-2011 07:41-0500 Respiratory Rate 16 /min Cari Portillo [facility] Work Phone: Comment on above: Pattern: Unlabored 05-04-2011 07:41-0500 Weight 114.76 kg Cari Portillo [facility] Work Phone: 01-29-2011 16:08-0500 BMI (Body Mass Index) 42.1 kg/m2 [facility] Work Phone: 01-29-2011 16:08-0500 Body Temperature 96.2 [degF] Cari Portillo [facility] Work Phone: 01-29-2011 16:08-0500 Body weight 114.76 kg Cari Portillo [facility] Work Phone: 01-29-2011 16:08-0500 BP Diastolic 84 mm[Hg] Cari Portillo [facility] Work Phone: Comment on above: Patient Position: Sitting; Cuff Location : Left Arm; Cuff Size: Large 01-29-2011 16:08-0500 BP Systolic 124 mm[Hg] Cari Portillo [facility] Work Phone: Comment on above: Patient Position: Sitting; Cuff Location : Left Arm; Cuff Size: Large 01-29-2011 16:08-0500 BSA (Body Surface Area) 2.19 m2 Cari Portillo [facility] Work Phone: 01-29-2011 16:08-0500 Height 165.1 cm Cari Portillo [facility] Work Phone: 01-29-2011 16:08-0500 Pulse (Heart Rate) 68 /min Cari Portillo [facility] Work Phone: Comment on above: Pattern: Regular 01-29-2011 16:08-0500 Respiratory Rate 16 /min Cari Portillo [facility] Work Phone: Comment on above: Pattern: Unlabored 01-29-2011 16:08-0500 Weight 114.76 kg Cari Portillo [facility] Work Phone: 10-24-2010 15:47-0400 BMI (Body Mass Index) 42.1 kg/m2 [facility] Work Phone: 10-24-2010 15:47-0400 Body Temperature 98.4 [degF] Cari Portillo [facility] Work Phone: 10-24-2010 15:47-0400 Body weight 114.76 kg Cari Portillo [facility] Work Phone: 10-24-2010 15:47-0400 BP Diastolic 90 mm[Hg] Cari Portillo [facility] Work Phone: Comment on above: Patient Position: Sitting; Cuff Location : Left Arm; Cuff Size: Large 10-24-2010 15:47-0400 BP Systolic 116 mm[Hg] Cari [facility] Work Phone: Comment on above: Patient Position: Sitting; Cuff Location : Left Arm; Cuff Size: Large 10-24-2010 15:47-0400 BSA (Body Surface Area) 2.19 m2 Cari [facility] Work Phone: 10-24-2010 15:47-0400 Height 165.1 cm Cari [facility] Work Phone: 10-24-2010 15:47-0400 Pulse (Heart Rate) 68 /min Cari [facility] Internal [facility] Work Phone: Comment on above: Pattern: Regular 10-24-2010 15:47-0400 Respiratory Rate 18 /min Cari [facility] Internal [facility] Work Phone: Comment on above: Pattern: Unlabored 10-24-2010 15:47-0400 Weight 114.76 kg Cari [facility] Internal Medicine Work Phone: 06-19-2010 16:13-0400 BMI (Body Mass Index) 41.2 kg/m2 Cari Portillo [facility] Internal Medicine Work Phone: 06-19-2010 16:13-0400 Body weight 112.29 kg Cari [facility] Work Phone: 06-19-2010 16:13-0400 BP Diastolic 80 mm[Hg] Cari [facility] Work Phone: Comment on above: Patient Position: Sitting; Cuff Location : Left Arm; Cuff Size: Standard 06-19-2010 16:13-0400 BP Systolic 128 mm[Hg] Cari [facility] Internal Medicine Work Phone: Comment on above: Patient Position: Sitting; Cuff Location : Left Arm; Cuff Size: Standard 06-19-2010 16:13-0400 BSA (Body Surface Area) 2.17 m2 Cari [facility] Work Phone: 06-19-2010 16:13-0400 Height 165.1 cm Cari [facility] Work Phone: 06-19-2010 16:13-0400 Pulse (Heart Rate) 60 /min Cari [facility] Work Phone: Comment on above: Pattern: Regular 06-19-2010 16:13-0400 Respiratory Rate 18 /min Cari [facility] Work Phone: Comment on above: Pattern: Unlabored 06-19-2010 16:13-0400 Weight 112.29 kg Cari [facility] Medicine Work Phone: 03-06-2010 16:00-0500 Body Temperature 97.6 [degF] Cari [facility] Work Phone: Comment on above: Method: Oral 03-06-2010 16:00-0500 Body weight 108 kg Cari [facility] Work Phone: 03-06-2010 16:00-0500 BP Diastolic 78 mm[Hg] Cari [facility] Work Phone: Comment on above: Patient Position: Sitting; Cuff Location : Left Arm; Cuff Size: Standard 03-06-2010 16:00-0500 BP Systolic 134 mm[Hg] Cari [facility] Work Phone: Comment on above: Patient Position: Sitting; Cuff Location : Left Arm; Cuff Size: Standard 03-06-2010 16:00-0500 Pulse (Heart Rate) 74 /min Cari [facility] Work Phone: Comment on above: Pattern: Regular 03-06-2010 16:00-0500 Respiratory Rate 18 /min Cari [facility] Work Phone: Comment on above: Pattern: Unlabored 03-06-2010 16:00-0500 Weight 108 kg Cari [facility] Work Phone: 11-09-2009 08:21-0400 Body Temperature 96.8 [degF] Cari [facility] Work Phone: 11-09-2009 08:21-0400 Body weight 113.85 kg Cari [facility] Work Phone: 11-09-2009 08:21-0400 BP Diastolic 70 mm[Hg] Cari [facility] Work Phone: Comment on above: Patient Position: Sitting; Cuff Location : Left Arm; Cuff Size: Large 11-09-2009 08:21-0400 BP Systolic 106 mm[Hg] Cari [facility] Work Phone: Comment on above: Patient Position: Sitting; Cuff Location : Left Arm; Cuff Size: Large 11-09-2009 08:21-0400 Pulse (Heart Rate) 72 /min Cari [facility] Work Phone: Comment on above: Pattern: Regular 11-09-2009 08:21-0400 Respiratory Rate 18 /min Cari [facility] Work Phone: Comment on above: Pattern: Unlabored 11-09-2009 08:21-0400 Weight 113.85 kg Cari [facility] Work Phone: 10-06-2009 15:37-0400 Body weight 112.97 kg Cari [facility] Work Phone: 10-06-2009 15:37-0400 BP Diastolic 78 mm[Hg] Cari [facility] Work Phone: Comment on above: Patient Position: Sitting; Cuff Location : Left Arm; Cuff Size: Standard 10-06-2009 15:37-0400 BP Systolic 120 mm[Hg] [facility] Work Phone: Comment on above: Patient Position: Sitting; Cuff Location : Left Arm; Cuff Size: Standard 10-06-2009 15:37-0400 Pulse (Heart Rate) 72 /min Cari [facility] Work Phone: Comment on above: Pattern: Regular 10-06-2009 15:37-0400 Respiratory Rate 16 /min Cari [facility] Work Phone: Comment on above: Pattern: Unlabored 10-06-2009 15:37-0400 Weight 112.97 kg Cari [facility] Work Phone: 09-29-2009 08:10-0400 Body Temperature 97.1 [degF] Cari [facility] Work Phone: Comment on above: Method: Oral 09-29-2009 08:10-0400 Body weight 112.49 kg Cari [facility] Work Phone: 09-29-2009 08:10-0400 BP Diastolic 84 mm[Hg] C[facility] Work Phone: Comment on above: Patient Position: Sitting; Cuff Location : Left Arm; Cuff Size: Standard 09-29-2009 08:10-0400 BP Systolic 136 mm[Hg] C[facility] Work Phone: Comment on above: Patient Position: Sitting; Cuff Location : Left Arm; Cuff Size: Standard 09-29-2009 08:10-0400 Pulse (Heart Rate) 76 /min C[facility] Work Phone: Comment on above: Pattern: Regular 09-29-2009 08:10-0400 Respiratory Rate 18 /min [facility] Work Phone: Comment on above: Pattern: Unlabored 09-29-2009 08:10-0400 Weight 112.49 kg Cari [facility] Work Phone: 09-09-2009 08:07-0400 Body Temperature 98.2 [degF] Cari [facility] Work Phone: Comment on above: Method: Oral 09-09-2009 08:07-0400 BP Diastolic 74 mm[Hg] [facility] Work Phone: Comment on above: Patient Position: Sitting; Cuff Location : Left Arm; Cuff Size: Large 09-09-2009 08:07-0400 BP Systolic 104 mm[Hg] Cari [facility] Work Phone: Comment on above: Patient Position: Sitting; Cuff Location : Left Arm; Cuff Size: Large 09-09-2009 08:07-0400 Pulse (Heart Rate) 68 /min [facility] Work Phone: Comment on above: Pattern: Regular 09-09-2009 08:07-0400 Respiratory Rate 20 /min Cari [facility] Work Phone: Comment on above: Pattern: Unlabored 07-19-2009 10:25-0400 Body Temperature 95.5 [degF] Cari [facility] Work Phone: 07-19-2009 10:25-0400 Body weight 113.85 kg Cari [facility] Work Phone: 07-19-2009 10:25-0400 BP Diastolic 70 mm[Hg] [facility] Work Phone: Comment on above: Patient Position: Sitting; Cuff Location : Left Arm; Cuff Size: Standard 07-19-2009 10:25-0400 BP Systolic 106 mm[Hg] [facility] Work Phone: Comment on above: Patient Position: Sitting; Cuff Location : Left Arm; Cuff Size: Standard 07-19-2009 10:25-0400 Pulse (Heart Rate) 74 /min [facility] Work Phone: Comment on above: Pattern: Regular 07-19-2009 10:25-0400 Respiratory Rate 18 /min [facility] Work Phone: Comment on above: Pattern: Unlabored 07-19-2009 10:25-0400 Weight 113.85 kg Cari [facility] Work Phone: 03-22-2009 14:33-0500 Body Temperature 97.8 [degF] Cari [facility] Work Phone: 03-22-2009 14:33-0500 BP Diastolic 80 mm[Hg] Cari [facility] Work Phone: Comment on above: Patient Position: Sitting; Cuff Location : Left Arm; Cuff Size: Large 03-22-2009 14:33-0500 BP Systolic 126 mm[Hg] Cari [facility] Work Phone: Comment on above: Patient Position: Sitting; Cuff Location : Left Arm; Cuff Size: Large 03-22-2009 14:33-0500 Pulse (Heart Rate) 68 /min Cari [facility] Work Phone: Comment on above: Pattern: Regular 03-22-2009 14:33-0500 Respiratory Rate 18 /min Cari [facility] Work Phone: Comment on above: Pattern: Unlabored 02-08-2009 15:58-0500 Body Temperature 97.5 [degF] Cari [facility] Work Phone: Comment on above: Method: Undefined 02-08-2009 15:58-0500 Body weight 122.02 kg Cari [facility] Work Phone: 02-08-2009 15:58-0500 BP Diastolic 84 mm[Hg] Cari [facility] Work Phone: Comment on above: Patient Position: Sitting; Cuff Location : Left Arm; Cuff Size: Standard 02-08-2009 15:58-0500 BP Systolic 120 mm[Hg] Cari [facility] Work Phone: Comment on above: Patient Position: Sitting; Cuff Location : Left Arm; Cuff Size: Standard 02-08-2009 15:58-0500 Head Circumference 0 cm [facility] Work Phone: 02-08-2009 15:58-0500 Height 0 cm [facility] Work Phone: 02-08-2009 15:58-0500 Pulse (Heart Rate) 80 /min [facility] Work Phone: Comment on above: Pattern: Regular 02-08-2009 15:58-0500 Respiratory Rate 18 /min Cari [facility] Work Phone: Comment on above: Pattern: Undefined 02-08-2009 15:58-0500 Weight 122.02 kg Cari [facility] Work Phone: 01-11-2009 10:21-0500 Body Temperature 97.6 [degF] Cari [facility] Work Phone: Comment on above: Method: Undefined 01-11-2009 10:21-0500 Body weight 0 kg Cari [facility] Work Phone: 01-11-2009 10:21-0500 BP Diastolic 64 mm[Hg] [facility] Work Phone: Comment on above: Patient Position: Sitting; Cuff Location : Left Arm; Cuff Size: Large 01-11-2009 10:21-0500 BP Systolic 102 mm[Hg] [facility] Work Phone: Comment on above: Patient Position: Sitting; Cuff Location : Left Arm; Cuff Size: Large 01-11-2009 10:21-0500 Head Circumference 0 cm Cari [facility] Work Phone: 01-11-2009 10:21-0500 Height 0 cm Cari [facility] Work Phone: 01-11-2009 10:21-0500 Pulse (Heart Rate) 72 /min C[facility] Work Phone: Comment on above: Pattern: Regular 01-11-2009 10:21-0500 Respiratory Rate 18 /min [facility] Work Phone: Comment on above: Pattern: Undefined 01-11-2009 10:21-0500 Weight 0 kg Cari [facility] Work Phone: 12-29-2008 08:18-0500 Body Temperature 97.3 [degF] C[facility] Work Phone: Comment on above: Method: Oral 12-29-2008 08:18-0500 Body weight 126.72 kg Cari [facility] Work Phone: 12-29-2008 08:18-0500 BP Diastolic 70 mm[Hg] C[facility] Work Phone: Comment on above: Patient Position: Supine; Cuff Location: Left Arm; Cuff Size: Standard 12-29-2008 08:18-0500 BP Systolic 120 mm[Hg] C[facility] Work Phone: Comment on above: Patient Position: Supine; Cuff Location: Left Arm; Cuff Size: Standard 12-29-2008 08:18-0500 Head Circumference 0 cm Cari [facility] Work Phone: 12-29-2008 08:18-0500 Height 0 cm C[facility] Work Phone: 12-29-2008 08:18-0500 Pulse (Heart Rate) 80 /min [facility] Work Phone: Comment on above: Pattern: Regular 12-29-2008 08:18-0500 Respiratory Rate 16 /min C[facility] Work Phone: Comment on above: Pattern: Unlabored 12-29-2008 08:18-0500 Weight 126.72 kg Cari [facility] Work Phone: 12-14-2008 10:19-0400 Body weight 126.72 kg Cari [facility] Work Phone: 12-14-2008 10:19-0400 BP Diastolic 82 mm[Hg] C[facility] Work Phone: Comment on above: Patient Position: Supine; Cuff Location: Left Arm; Cuff Size: Large 12-14-2008 10:19-0400 BP Systolic 122 mm[Hg] Cari [facility] Work Phone: Comment on above: Patient Position: Supine; Cuff Location: Left Arm; Cuff Size: Large 12-14-2008 10:0400 Head Circumference 0 cm Cari [facility] Work Phone: 12-14-2008 10:040 Height 0 cm Cari [facility] Work Phone: 12-14-2008 10:-0400 Pulse (Heart Rate) 70 /min Cari [facility] Work Phone: Comment on above: Pattern: Regular 12-14-2008 10:-0400 Respiratory Rate 16 /min Cari [facility] Work Phone: Comment on above: Pattern: Unlabored 12-14-2008 10:19-0400 Weight 126.72 kg Cari [facility] Work Phone: 11-30-2008 10:-0400 Body Temperature 97.1 [degF] Cari [facility] Work Phone: Comment on above: Method: Oral 11-30-2008 10:0400 Body weight 126.72 kg Cari [facility] Work Phone: 11-30-2008 10:22-0400 BP Diastolic 90 mm[Hg] Cari [facility] Work Phone: Comment on above: Patient Position: Sitting; Cuff Location : Left Arm; Cuff Size: Large 11-30-2008 10:22-0400 BP Systolic 138 mm[Hg] Cari [facility] Work Phone: Comment on above: Patient Position: Sitting; Cuff Location : Left Arm; Cuff Size: Large 11-30-2008 10:0400 Head Circumference 0 cm Cari [facility] Work Phone: 11-30-2008 10:22-0400 Height 0 cm [facility] Work Phone: 11-30-2008 10:22-0400 Pulse (Heart Rate) 80 /min [facility] Work Phone: Comment on above: Pattern: Regular 11-30-2008 10:22-0400 Respiratory Rate 18 /min Cari [facility] Work Phone: Comment on above: Pattern: Unlabored 11-30-2008 10:22-0400 Weight 126.72 kg Cari [facility] Work Phone: 04-20-2008 09:12-0500 Body Temperature 96.2 [degF] Cari [facility] Work Phone: Comment on above: Method: Undefined 04-20-2008 09:12-0500 Body weight 130.64 kg Cari [facility] Work Phone: 04-20-2008 09:12-0500 BP Diastolic 82 mm[Hg] [facility] Work Phone: Comment on above: Patient Position: Sitting; Cuff Location : Right Arm; Cuff Size: Large 04-20-2008 09:12-0500 BP Systolic 124 mm[Hg] [facility] Work Phone: Comment on above: Patient Position: Sitting; Cuff Location : Right Arm; Cuff Size: Large 04-20-2008 09:12-0500 Head Circumference 0 cm Cari [facility] Work Phone: 04-20-2008 09:12-0500 Height 0 cm Cari [facility] Work Phone: 04-20-2008 09:12-0500 Pulse (Heart Rate) 88 /min [facility] Work Phone: Comment on above: Pattern: Regular 04-20-2008 09:12-0500 Respiratory Rate 18 /min Cari [facility] Work Phone: Comment on above: Pattern: Undefined 04-20-2008 09:12-0500 Weight 130.64 kg Cari [facility] Work Phone: 03-23-2008 10:03-0500 BMI (Body Mass Index) 43.11 kg/m2 Cari Portillo [facility] Medicine Work Phone: 03-23-2008 10:03-0500 Body Temperature 96.5 [degF] Cari [facility] Work Phone: Comment on above: Method: Oral 03-23-2008 10:03-0500 Body weight 128.6 kg Cari [facility] Work Phone: 03-23-2008 10:03-0500 BP Diastolic 82 mm[Hg] Cari [facility] Work Phone: Comment on above: Patient Position: Standing; Cuff Locatio n: Left Arm; Cuff Size: Large 03-23-2008 10:03-0500 BP Systolic 122 mm[Hg] Cari [facility] Work Phone: Comment on above: Patient Position: Standing; Cuff Locatio n: Left Arm; Cuff Size: Large 03-23-2008 10:03-0500 BSA (Body Surface Area) 2.37 m2 Cari [facility] Work Phone: 03-23-2008 10:03-0500 Head Circumference 0 cm Cari [facility] Work Phone: 03-23-2008 10:03-0500 Height 172.72 cm Cari [facility] Work Phone: 03-23-2008 10:03-0500 Pulse (Heart Rate) 72 /min Cari [facility] Work Phone: Comment on above: Pattern: Regular 03-23-2008 10:03-0500 Respiratory Rate 18 /min Cari [facility] Work Phone: Comment on above: Pattern: Unlabored 03-23-2008 10:03-0500 Weight 128.6 kg Cari [facility] Work Phone: 11-20-2007 13:55-0400 Body weight 125.39 kg Cari [facility] Work Phone: 11-20-2007 13:55-0400 BP Diastolic 70 mm[Hg] Cari [facility] Work Phone: Comment on above: Patient Position: Sitting; Cuff Location : Left Arm; Cuff Size: Standard 11-20-2007 13:55-0400 BP Systolic 122 mm[Hg] Cari [facility] Work Phone: Comment on above: Patient Position: Sitting; Cuff Location : Left Arm; Cuff Size: Standard 11-20-2007 13:55-0400 Head Circumference 0 cm Cari [facility] Work Phone: 11-20-2007 13:55-0400 Height 0 cm Cari [facility] Work Phone: 11-20-2007 13:55-0400 Pulse (Heart Rate) 82 /min Cari [facility] Work Phone: Comment on above: Pattern: Regular 11-20-2007 13:55-0400 Respiratory Rate 16 /min Cari [facility] Work Phone: Comment on above: Pattern: Unlabored 11-20-2007 13:55-0400 Weight 125.39 kg Cari [facility] Work Phone: 10-28-2007 15:49-0400 Body Temperature 98.2 [degF] Cari [facility] Work Phone: Comment on above: Method: Undefined 10-28-2007 15:49-0400 Body weight 0 kg Cari [facility] Work Phone: 10-28-2007 15:49-0400 BP Diastolic 90 mm[Hg] Cari [facility] Work Phone: Comment on above: Patient Position: Sitting; Cuff Location : Left Arm; Cuff Size: Standard 10-28-2007 15:49-0400 BP Systolic 118 mm[Hg] Cari [facility] Work Phone: Comment on above: Patient Position: Sitting; Cuff Location : Left Arm; Cuff Size: Standard 10-28-2007 15:49-0400 Head Circumference 0 cm Cari [facility] Work Phone: 10-28-2007 15:49-0400 Height 0 cm Cari [facility] Work Phone: 10-28-2007 15:49-0400 Pulse (Heart Rate) 80 /min Cari [facility] Work Phone: Comment on above: Pattern: Regular 10-28-2007 15:49-0400 Respiratory Rate 16 /min Cari [facility] Work Phone: Comment on above: Pattern: Undefined 10-28-2007 15:49-0400 Weight 0 kg [facility] Work Phone: 06-09-2007 17:26-0400 Body weight 0 kg [facility] Work Phone: 06-09-2007 17:26-0400 BP Diastolic 82 mm[Hg] [facility] Work Phone: Comment on above: Patient Position: Sitting; Cuff Location : Undefined; Cuff Size: Undefined 06-09-2007 17:26-0400 BP Systolic 120 mm[Hg] [facility] Work Phone: Comment on above: Patient Position: Sitting; Cuff Location : Undefined; Cuff Size: Undefined 06-09-2007 17:26-0400 Head Circumference 0 cm Cari [facility] Work Phone: 06-09-2007 17:26-0400 Height 0 cm Cari [facility] Work Phone: 06-09-2007 17:26-0400 Weight 0 kg Cari [facility] Work Phone: 06-09-2007 16:46-0400 Body Temperature 98.4 [degF] [facility] Work Phone: Comment on above: Method: Undefined 06-09-2007 16:46-0400 Body weight 128.82 kg Cari [facility] Work Phone: 06-09-2007 16:46-0400 BP Diastolic 90 mm[Hg] Cari [facility] Work Phone: Comment on above: Patient Position: Sitting; Cuff Location : Right Arm; Cuff Size: Standard 06-09-2007 16:46-0400 BP Systolic 130 mm[Hg] Cari [facility] Work Phone: Comment on above: Patient Position: Sitting; Cuff Location : Right Arm; Cuff Size: Standard 06-09-2007 16:46-0400 Head Circumference 0 cm Cari [facility] Work Phone: 06-09-2007 16:46-0400 Height 0 cm Cari [facility] Work Phone: 06-09-2007 16:46-0400 Pulse (Heart Rate) 80 /min Cari [facility] Work Phone: Comment on above: Pattern: Regular 06-09-2007 16:46-0400 Respiratory Rate 16 /min Cari [facility] Work Phone: Comment on above: Pattern: Undefined 06-09-2007 16:46-0400 Weight 128.82 kg Cari [facility] Work Phone: 03-03-2007 09:08-0500 Body Temperature 98 [degF] Cari [facility] Work Phone: Comment on above: Method: Oral 03-03-2007 09:08-0500 Body weight 127.46 kg Cari [facility] Work Phone: 03-03-2007 09:08-0500 BP Diastolic 84 mm[Hg] Cari [facility] Work Phone: Comment on above: Patient Position: Sitting; Cuff Location : Left Arm; Cuff Size: Standard 03-03-2007 09:08-0500 BP Systolic 112 mm[Hg] Cari [facility] Work Phone: Comment on above: Patient Position: Sitting; Cuff Location : Left Arm; Cuff Size: Standard 03-03-2007 09:08-0500 Head Circumference 0 cm Cari Portillo [facility] Internal Medicine Work Phone: 03-03-2007 09:08-0500 Height 0 cm Cari Portillo [facility] Work Phone: 03-03-2007 09:08-0500 Pulse (Heart Rate) 84 /min Cari Portillo [facility] Work Phone: Comment on above: Pattern: Regular 03-03-2007 09:08-0500 Respiratory Rate 16 /min Cari Portillo [facility] Work Phone: Comment on above: Pattern: Unlabored 03-03-2007 09:08-0500 Weight 127.46 kg Cari Portillo [facility] Internal Medicine Work Phone: 01-27-2007 14:22-0500 BMI (Body Mass Index) 43.52 kg/m2 Cari Portillo [facility] Internal Medicine Work Phone: 01-27-2007 14:22-0500 Body Temperature 98 [degF] Cari Portillo [facility] Internal Medicine Work Phone: Comment on above: Method: Oral 01-27-2007 14:22-0500 Body weight 127.92 kg Cari Portillo [facility] Internal Medicine Work Phone: 01-27-2007 14:22-0500 BP Diastolic 88 mm[Hg] Cari Portillo [facility] Work Phone: Comment on above: Patient Position: Sitting; Cuff Location : Right Arm; Cuff Size: Standard 01-27-2007 14:22-0500 BP Systolic 130 mm[Hg] Cari Portillo [facility] Work Phone: Comment on above: Patient Position: Sitting; Cuff Location : Right Arm; Cuff Size: Standard 01-27-2007 14:22-0500 BSA (Body Surface Area) 2.35 m2 C[facility] Work Phone: 01-27-2007 14:22-0500 Head Circumference 0 cm Cari Bradshaw Internal Medicine Work Phone: 01-27-2007 14:22-0500 Height 171.45 cm Cari [facility] Work Phone: 01-27-2007 14:22-0500 Pulse (Heart Rate) 88 /min Cari [facility] Work Phone: Comment on above: Pattern: Regular 01-27-2007 14:22-0500 Respiratory Rate 20 /min Cari Portillo [facility] Medicine Work Phone: Comment on above: Pattern: Unlabored 01-27-2007 14:22-0500 Weight 127.92 kg Cari Portillo [facility] Internal Medicine Work Phone: 01-13-2007 14:36-0500 Body Temperature 98.3 [degF] Cari Portillo [facility] Internal [facility] Work Phone: Comment on above: Method: Oral 01-13-2007 14:36-0500 Body weight 0 kg Cari Portillo [facility] Work Phone: 01-13-2007 14:36-0500 BP Diastolic 92 mm[Hg] Cari Portillo [facility] Work Phone: Comment on above: Patient Position: Sitting; Cuff Location : Right Arm; Cuff Size: Large 01-13-2007 14:36-0500 BP Systolic 132 mm[Hg] Cari Portillo [facility] Work Phone: Comment on above: Patient Position: Sitting; Cuff Location : Right Arm; Cuff Size: Large 01-13-2007 14:36-0500 Head Circumference 0 cm Cari Bradshaw Internal Medicine Work Phone: 01-13-2007 14:36-0500 Height 0 cm Cari Portillo [facility] Work Phone: 01-13-2007 14:36-0500 Pulse (Heart Rate) 92 /min [facility]ari [facility] Work Phone: Comment on above: Pattern: Regular 01-13-2007 14:36-0500 Respiratory Rate 18 /min Cari Portillo [facility] Work Phone: Comment on above: Pattern: Unlabored 01-13-2007 14:36-0500 Weight 0 kg Cari Portillo [facility] Work Phone: 10-21-2006 09:25-0400 BMI (Body Mass Index) 42.74 kg/m2 Cari Portillo [facility] Internal Medicine Work Phone: 10-21-2006 09:25-0400 Body Temperature 97.9 [degF] aCri Portillo [facility] Work Phone: Comment on above: Method: Undefined 10-21-2006 09:25-0400 Body weight 125.65 kg Cari Portillo [facility] Work Phone: 10-21-2006 09:25-0400 BP Diastolic 81 mm[Hg] Cari Portillo [facility] Work Phone: Comment on above: Patient Position: Sitting; Cuff Location : Left Arm; Cuff Size: Standard 10-21-2006 09:25-0400 BP Systolic 130 mm[Hg] Cari Portillo [facility] Work Phone: Comment on above: Patient Position: Sitting; Cuff Location : Left Arm; Cuff Size: Standard 10-21-2006 09:25-0400 BSA (Body Surface Area) 2.33 m2 Cari Portillo [facility] Work Phone: 10-21-2006 09:25-0400 Head Circumference 0 cm Cari Portillo [facility] Work Phone: 10-21-2006 09:25-0400 Height 171.45 cm Cari Portillo [facility] Work Phone: 10-21-2006 09:25-0400 Pulse (Heart Rate) 80 /min Cari Portillo [facility] Work Phone: Comment on above: Pattern: Regular 10-21-2006 09:25-0400 Respiratory Rate 18 /min Cari Portillo [facility] Work Phone: Comment on above: Pattern: Unlabored 10-21-2006 09:25-0400 Weight 125.65 kg Cari Portillo [facility] Work Phone: 06-24-2006 09:07-0400 BMI (Body Mass Index) 41.05 kg/m2 Cari Portillo [facility] Internal Medicine Work Phone: 06-24-2006 09:07-0400 Body Temperature 97.6 [degF] Cari Portillo [facility] Work Phone: Comment on above: Method: Oral 06-24-2006 09:07-0400 Body weight 120.66 kg Cari Portillo [facility] Work Phone: 06-24-2006 09:07-0400 BP Diastolic 86 mm[Hg] Cari Portillo [facility] Work Phone: Comment on above: Patient Position: Sitting; Cuff Location : Right Arm; Cuff Size: Standard 06-24-2006 09:07-0400 BP Systolic 128 mm[Hg] Cari Portillo [facility] Work Phone: Comment on above: Patient Position: Sitting; Cuff Location : Right Arm; Cuff Size: Standard 06-24-2006 09:07-0400 BSA (Body Surface Area) 2.3 m2 Cari Portillo [facility] Work Phone: 06-24-2006 09:07-0400 Head Circumference 0 cm Cari Portillo [facility] Work Phone: 06-24-2006 09:07-0400 Height 171.45 cm Cari Portillo [facility] Work Phone: 06-24-2006 09:07-0400 Pulse (Heart Rate) 76 /min Cari Portillo [facility] Work Phone: Comment on above: Pattern: Regular 06-24-2006 09:07-0400 Respiratory Rate 18 /min Cari Portillo [facility] Work Phone: Comment on above: Pattern: Unlabored 06-24-2006 09:07-0400 Weight 120.66 kg Cari Bradshaw Internal Medicine Work Phone: 03-18-2006 10:54-0500 Body Temperature 98.6 [degF] [facility] Work Phone: Comment on above: Method: Oral 03-18-2006 10:54-0500 Body weight 0 kg Cari [facility] Work Phone: 03-18-2006 10:54-0500 BP Diastolic 88 mm[Hg] Cari [facility] Work Phone: Comment on above: Patient Position: Sitting; Cuff Location : Right Arm; Cuff Size: Standard 03-18-2006 10:54-0500 BP Systolic 118 mm[Hg] C[facility] Work Phone: Comment on above: Patient Position: Sitting; Cuff Location : Right Arm; Cuff Size: Standard 03-18-2006 10:54-0500 Head Circumference 0 cm Cari Portillo [facility] Work Phone: 03-18-2006 10:54-0500 Height 0 cm Cari Portillo [facility] Work Phone: 03-18-2006 10:54-0500 Pulse (Heart Rate) 80 /min Cari Bradshaw Internal Medicine Work Phone: Comment on above: Pattern: Regular 03-18-2006 10:54-0500 Respiratory Rate 16 /min Cari Portillo [facility] Work Phone: Comment on above: Pattern: Unlabored 03-18-2006 10:54-0500 Weight 0 kg Cari [facility] Work Phone: 02-08-2006 08:27-0500 Body Temperature 98.6 [degF] Cari Portillo [facility] Work Phone: Comment on above: Method: Oral 02-08-2006 08:27-0500 Body weight 114.76 kg Cari Portillo [facility] Work Phone: 02-08-2006 08:27-0500 BP Diastolic 82 mm[Hg] Cari Portillo [facility] Work Phone: Comment on above: Patient Position: Sitting; Cuff Location : Left Arm; Cuff Size: Standard 02-08-2006 08:27-0500 BP Systolic 122 mm[Hg] Cari Portillo [facility] Work Phone: Comment on above: Patient Position: Sitting; Cuff Location : Left Arm; Cuff Size: Standard 02-08-2006 08:27-0500 Head Circumference 0 cm Cari Portillo [facility] Work Phone: 02-08-2006 08:27-0500 Height 0 cm Cari Portillo [facility] Work Phone: 02-08-2006 08:27-0500 Pulse (Heart Rate) 76 /min Cari Portillo [facility] Work Phone: Comment on above: Pattern: Regular 02-08-2006 08:27-0500 Respiratory Rate 18 /min Cari Portillo [facility] Work Phone: Comment on above: Pattern: Unlabored 02-08-2006 08:27-0500 Weight 114.76 kg Cari Portillo [facility] Work Phone: 11-05-2005 09:34-0400 BMI (Body Mass Index) 41.32 kg/m2 Cari Portillo [facility] Internal Medicine Work Phone: 11-05-2005 09:34-0400 Body Temperature 97.7 [degF] Cari Portillo [facility] Work Phone: Comment on above: Method: Oral 11-05-2005 09:34-0400 Body weight 116.12 kg Cari Portillo [facility] Work Phone: 11-05-2005 09:34-0400 BP Diastolic 84 mm[Hg] Cari Portillo [facility] Work Phone: Comment on above: Patient Position: Sitting; Cuff Location : Left Arm; Cuff Size: Standard 11-05-2005 09:34-0400 BP Systolic 134 mm[Hg] Cari Portillo [facility] Work Phone: Comment on above: Patient Position: Sitting; Cuff Location : Left Arm; Cuff Size: Standard 11-05-2005 09:34-0400 BSA (Body Surface Area) 2.22 m2 Cari Portillo [facility] Work Phone: 11-05-2005 09:34-0400 Head Circumference 0 cm Cari Portillo [facility] Work Phone: 11-05-2005 09:34-0400 Height 167.64 cm Cari Portillo [facility] Work Phone: 11-05-2005 09:34-0400 Pulse (Heart Rate) 72 /min Cari Portillo [facility] Work Phone: Comment on above: Pattern: Regular 11-05-2005 09:34-0400 Respiratory Rate 16 /min Cari Portillo [facility] Work Phone: Comment on above: Pattern: Unlabored 11-05-2005 09:34-0400 Weight 116.12 kg Cari Portillo [facility] Internal [facility] Work Phone: Encounters Encounter Date Encounter Type Care Provider Facility Start: 12-15-2024 End: 12-15-2024 Patient encounter procedure Neyda Coley NP-[place] -[facility] Work Phone: Start: 12-15-2024 End: 12-15-2024 ambulatory Latesha Zafar [place] Start: 09-09-2024 End: 09-09-2024 Patient encounter procedure Elzbieta CLEMENTS -[facility] Work Phone: Start: 09-09-2024 End: 09-09-[address] Latesha Zafar MD Work Phone: -[facility] Start: 08-12-2024 End: 08-12-[address] Latesha Zafar MD Work Phone: [facility] Work Phone: Start: 08-12-2024 End: 08-12-[address] Ruchi Valenzuela DPM -Radiology [facility] Work Phone: Start: 08-12-2024 End: 08-12-2024 ambulatory Ruchi Valenzuela Facility:[facility] Start: 07-29-2024 End: 07-29-[address] Latesha Zafar MD -[facility] Work Phone: Start: 07-29-2024 End: 07-29-[address] Latesha Zafar MD Work Phone: [facility] Work Phone: Start: 07-16-2024 End: 07-16-[address] Latesha Zafar MD Work Phone: [facility] Work Phone: Start: 07-16-2024 End: 07-16-[address] Latesha Zafar MD -Laboratory Work Phone: Start: 07-16-2024 End: 07-16-2024 ambulatory Latesha Zafar Facility:[facility] Start: 01-29-2024 End: 01-29-2024 ambulatory Latesha Zafar [place] Start: 01-21-2024 End: 01-21-2024 [facility] Facility:[facility] Start: 12-18-2023 End: 12-18-2023 ambulatory Neyda Coley NP [place] Start: 03-20-2023 End: 03-20-[address] Latesha Zafar Work Phone: [facility] Work Phone: Start: 03-20-2023 End: 03-20-[address] Latesha Zafar Work Phone: [facility] Work Phone: Start: 11-28-2022 End: 11-28-[address] Latesha Zafar Work Phone: [facility]-Pulmonary Medicine [facility] Work Phone: Start: 09-12-2022 End: 09-12-[address] Latesha Zafar Work Phone: [facility] Work Phone: Start: 09-12-2022 End: 09-12-[address] [facility] Start: 09-12-2022 End: 09-12-[address] Latesha Zafar Work Phone: [facility] Work Phone: Start: 01-25-2022 Non-patient / Non-visit Dr. Latesha Zafar Work Phone: [facility] Start: 01-25-2022 End: 01-25-2022 Admission to same day surgery center Dr. Latesha Zafar Work Phone: [facility]-Endoscopy Start: 01-25-2022 End: 01-25-[address] Latesha Zafar Work Phone: [facility] Work Phone: Start: 12-13-2021 End: 12-13-[address] Latesha Zafar Work Phone: [facility]-Pulmonary Medicine [facility] Start: 11-28-2021 End: 11-28-[address] Latesha Zafar Work Phone: [facility] Gastroenter[facility] Start: 09-27-2021 End: 09-27-[address] Latesha Zafar Work Phone: [facility]-Laboratory Start: 09-20-2021 End: 09-20-[address] Latesha Zafar Work Phone: [facility] Internal Medicine Start: 06-29-2021 End: 06-29-[address] Latesha Zafar Work Phone: [facility] Start: 06-14-2021 End: 06-14-[address] [facility]ates[facility] Start: 06-02-2020 End: 06-02-2020 Annotation/Addendum [facility]ari [facility] Start: 06-02-2020 End: 06-02-2020 Phone Encounter Cari Bradshaw [facility] Start: 05-25-2020 End: 05-25-2020 Office outpatient visit 15 minutes [facility] Start: 05-25-2020 Review [facility]ari Portillo [facility] Start: 05-18-2020 End: 05-18-2020 Annotation/Addendum [facility] Start: 04-13-2020 End: 04-13-2020 Office outpatient visit 40 minutes C[facility] Start: 02-25-2020 End: 02-25-2020 Office outpatient visit 15 minutes C[facility] Start: 02-25-2020 Review Cari Ballon [facility] Start: 12-03-2019 End: 12-03-2019 Phone Encounter C[facility] Start: 12-02-2019 End: 12-02-2019 Office outpatient visit 25 minutes Cari [facility] Start: 12-02-2019 Review Cari Ballon [facility] Start: 07-29-2019 End: 07-29-2019 Office outpatient visit 25 minutes Cari [facility] Start: 03-25-2019 End: 03-25-2019 Office outpatient visit 25 minutes Cari [facility] Start: 11-19-2018 End: 11-19-2018 Office outpatient visit 25 minutes Cari [facility] Start: 10-29-2018 End: 10-29-2018 Office outpatient visit 10 minutes Cari [facility] Start: 2018 End: 2018 Office outpatient visit 25 minutes Cariluann [facility]illo [facility] Start: 08-13-2018 End: 08-13-2018 Office outpatient visit 15 minutes [facility] Start: 07-16-2018 End: 07-16-2018 Phone Encounter Cari Bradshaw [facility] Start: 05-21-2018 End: 05-21-2018 Office outpatient visit 15 minutes Cari Portillo [facility] Start: 05-21-2018 Review Cari Portillo [facility] Start: 05-07-2018 Patient encounter procedure Cari Bradshaw [facility] Start: 04-23-2018 End: 04-23-2018 Office outpatient visit 10 minutes Cari Bradshaw [facility] Start: 04-09-2018 End: 04-09-2018 Office outpatient visit 15 minutes Cari Portillo [facility] Start: 03-20-2018 End: 03-20-2018 Phone Encounter Cari Portillo [facility] Medicine Start: 03-17-2018 End: 03-17-2018 Phone Encounter Cari Portillo [facility] Start: 03-12-2018 End: 03-12-2018 Office outpatient visit 25 minutes Cari Portillo [facility] Start: 03-05-2018 End: 03-05-2018 Office outpatient visit 15 minutes Cari [facility] Start: 02-12-2018 End: 02-12-2018 Office outpatient visit 15 minutes Cari Portillo [facility] Start: 02-12-2018 Review Cari Portillo [facility] Start: 11-06-2017 End: 11-06-2017 Office outpatient visit 25 minutes Cari Bradshaw [facility] Start: 10-09-2017 End: 10-09-2017 Office outpatient visit 15 minutes Cari Bradshaw [facility] Start: 10-02-2017 End: 10-02-2017 Office outpatient visit 10 minutes Cari Bradshaw [facility] Start: 09-25-2017 End: 09-25-2017 Office outpatient visit 15 minutes Cari Bradshaw [facility] Start: 07-03-2017 End: 07-03-2017 Office outpatient visit 25 minutes Cari Portillo [facility] Start: 06-27-2017 End: 06-27-2017 Lab Order Cari Portillo [facility] Start: 04-23-2017 End: 04-23-2017 Phone Encounter Cari Bradshaw [facility] Start: 03-25-2017 End: 03-25-2017 Annotation/Addendum [facility] Start: 02-27-2017 End: 02-27-2017 Office outpatient visit 25 minutes Cari Bradshaw [facility] Start: 02-21-2017 End: 02-21-2017 Annotation/Addendum Cari Bradshaw [facility] Start: 12-05-2016 End: 12-05-2016 Office outpatient visit 10 minutes Cari Bradshaw [facility] Start: 11-07-2016 End: 11-07-2016 Office outpatient visit 15 minutes Cari Portillo [facility] Start: 10-15-2016 End: 10-15-2016 Office outpatient visit 15 minutes Cari Portillo [facility] Start: 08-06-2016 End: 08-06-2016 Office outpatient visit 25 minutes Cari Portillo [facility] Start: 07-30-2016 End: 07-30-2016 Phone Encounter Cari Bradshaw [facility] Start: 05-21-2016 End: 05-21-2016 Annotation/Addendum Cari Bradshaw [facility] Start: 05-16-2016 End: 05-16-2016 Office outpatient visit 15 minutes Cari Bradshaw [facility] Start: 04-20-2016 End: 04-23-2016 Office outpatient visit 15 minutes Cari Bradshaw [facility] Start: 04-02-2016 End: 04-02-2016 Office outpatient visit 25 minutes Cari Bradshaw [facility] Start: 03-28-2016 End: 03-28-2016 Office outpatient visit 25 minutes Cari Portillo [facility] Start: 03-12-2016 End: 03-12-2016 Phone Encounter Cari Bradshaw [facility] Start: 11-23-2015 End: 11-23-2015 Office outpatient visit 15 minutes Cari Bradshaw [facility] Start: 09-19-2015 End: 09-19-2015 Patient encounter procedure Cari Bradshaw [facility] Start: 09-14-2015 End: 09-14-2015 Office outpatient visit 15 minutes Cari Bradshaw [facility] Start: 08-17-2015 End: 08-17-2015 Office outpatient visit 40 minutes Cari Bradshaw [facility] Start: 03-23-2015 End: 03-24-2015 Office outpatient visit 15 minutes Cari Portillo [facility] Start: 02-07-2015 End: 02-07-2015 Office outpatient visit 25 minutes Cari Portillo [facility] Start: 06-07-2014 End: 06-08-2014 Office outpatient visit 25 minutes Cari Portillo [facility] Start: 02-22-2014 End: 02-22-2014 Office outpatient visit 25 minutes Cari Portillo [facility] Start: 01-18-2014 End: 01-18-2014 Office outpatient visit 25 minutes Cari Portillo [facility] Start: 10-19-2013 End: 10-19-2013 Office outpatient visit 15 minutes Cari Portillo [facility] Start: 09-21-2013 End: 09-23-2013 Office outpatient visit 15 minutes Cari Portillo [facility] Start: 06-24-2013 End: 06-24-2013 Patient encounter procedure Cari Portillo [facility] Start: 05-18-2013 End: 05-18-2013 Patient encounter procedure Cari Portillo [facility] Start: 04-24-2013 End: 04-24-2013 Patient encounter procedure Cari Portillo [facility] Start: 01-07-2013 End: 01-08-2013 Patient encounter procedure Cari Portillo [facility] Start: 12-17-2012 End: 12-17-2012 Office outpatient visit 15 minutes Cari Portillo [facility] Start: 12-03-2012 End: 12-03-2012 Phone Encounter Cari Portillo [facility] Medicine Start: 12-02-2012 End: 12-02-2012 Office outpatient visit 15 minutes Cari Portillo [facility] Start: 09-23-2012 End: 09-23-2012 Office outpatient visit 25 minutes Cari Portillo [facility] Start: 07-14-2012 End: 07-14-2012 Office outpatient visit 15 minutes Cari Portillo [facility] Start: 04-02-2012 End: 04-03-2012 Patient encounter procedure Cari Portillo [facility] Start: 03-03-2012 End: 03-03-2012 Patient encounter procedure Cari Portillo [facility] Start: 02-20-2012 End: 02-20-2012 Patient encounter procedure Cari Portillo [facility] Start: 02-13-2012 End: 02-13-2012 Office outpatient visit 15 minutes Cari Portillo [facility] Start: 10-31-2011 End: 11-01-2011 Patient encounter procedure Cariluann Ballon [facility] Start: 06-04-2011 End: 06-04-2011 Patient encounter procedure Cari Portillo [facility] Start: 05-04-2011 End: 05-04-2011 Office outpatient visit 15 minutes Cari Sanket [facility] Start: 01-29-2011 End: 01-30-2011 Patient encounter procedure Cari Sanket [facility] Start: 10-24-2010 End: 10-24-2010 Patient encounter procedure Cariluann Ballon [facility] Start: 06-19-2010 End: 06-19-2010 Patient encounter procedure Cari Sanket [facility] Start: 03-06-2010 End: 03-06-2010 Patient encounter procedure Cariluann Ballon [facility] Start: 11-09-2009 End: 11-09-2009 Patient encounter procedure Cari Sanket [facility] Start: 10-06-2009 End: 10-06-2009 Office outpatient visit 15 minutes Cari Portillo [facility] Start: 09-29-2009 End: 09-29-2009 Office outpatient visit 25 minutes Cari Sanket [facility] Start: 09-09-2009 End: 09-09-2009 Patient encounter procedure Cariluann Ballon [facility] Start: 07-19-2009 End: 07-19-2009 Patient encounter procedure Cariluann Ballon [facility] Start: 04-14-2009 End: 04-14-2009 Historical Summary Cari Portillo [facility] Assistant [facility] Operator al Medicine Start: 03-22-2009 End: 03-22-2009 Patient encounter procedure Cari Sanket [facility] Start: 02-08-2009 End: 02-08-2009 Patient encounter procedure Cari Sanket [facility] Start: 01-11-2009 End: 01-23-2009 Patient encounter procedure Cari Portillo [facility] Start: 12-29-2008 End: 12-29-2008 Office outpatient visit 15 minutes Cari Portilol [facility] Start: 12-14-2008 End: 12-14-2008 Office outpatient visit 15 minutes Cari Portillo [facility] Start: 11-30-2008 End: 11-30-2008 Office outpatient visit 25 minutes Cari Portillo [facility] Start: 04-20-2008 End: 04-20-2008 Patient encounter procedure Cari Portillo [facility] Start: 03-23-2008 End: 03-23-2008 Office outpatient visit 25 minutes Cari Portillo [facility] Start: 11-20-2007 End: 11-22-2007 Patient encounter procedure Cari Portillo [facility] Start: 10-28-2007 End: 10-29-2007 Patient encounter procedure Cari Portillo [facility] Start: 06-09-2007 End: 06-09-2007 Patient encounter procedure Cari Portillo [facility] Start: 03-03-2007 End: 03-03-2007 Patient encounter procedure Cari Portillo [facility] Start: 01-27-2007 End: 01-27-2007 Office outpatient visit 25 minutes Cari Portillo [facility] Start: 01-13-2007 End: 01-13-2007 Patient encounter procedure Cari Portillo [facility] Start: 10-21-2006 End: 10-21-2006 Patient encounter procedure Cari Portillo [facility] Start: 06-24-2006 End: 06-24-2006 Patient encounter procedure Cari Portillo [facility] Start: 03-18-2006 End: 03-18-2006 Patient encounter procedure Cari Portillo [facility] Start: 02-08-2006 End: 02-08-2006 Patient encounter procedure Cari Portillo [facility] Start: 02-04-2006 End: 02-04-2006 Historical Summary Cari Portillo [facility] Assistant [employer] Operator al Medicine Start: 01-07-2006 End: 01-07-2006 Nursing evaluation of patient and report Cari Portillo [facility] Start: 12-31-2005 End: 12-31-2005 Phone Encounter Cari Portillo [facility] Assistant [facility] Operator al Medicine Start: 11-05-2005 End: 11-06-2005 Patient encounter procedure Cari Portillo [facility] Procedures Date Procedure Procedure Detail Performing Clinician Start: 08-12-2024 Plain X-ray of tibia and fibula Dr. Latesha Zafar MD Work Phone: Start: 07-16-2024 Prostate specific antigen measurement Dr. Latesha Zafar MD Work Phone: Comment on above: This test was performed using the [employer] tPSA method. Measured values of a patient sample can vary depending on the testing procedure used. PSA values determined on patient samples by different testing procedures cannot be used interchangeably. If there is a change in PSA assays while monitoring therapy, sequential testing should be performed to confirm baseline values. Start: 07-16-2024 Vitamin D, 25-hydroxy measurement Dr. Latesha Zafar MD Work Phone: Comment on above: Vitamin D StatusDeficiency: <20 ng/mL (5 0nmol/L)Insufficiency: 20-30 ng/mL (50-75 nmol/L)Sufficiency: 30-100 ng/mL (75-250 nmol/L)Toxicity: >100 ng/mL (>250 nmol/L) Start: 01-25-[address] Latesha Zafar Work Phone: Start: 03-23-2020 End: 04-12-2020 Pulmonary Visit Report Comments: See Note; NOTES: [facility] [address] [place] [address]. [address] [place] [address] OFFICE VISIT Date of Service: 03/23/20 MR#: [id number] Acct: [id number] Name: WILLA MORROW Jr. Rep #: [id number] : 1960 Provider: Dr. Colin Plata MD Age/Sex: 59/M [place] [facility] Status: Signed Assessment Plan Problems 1. Obstructive sleep apnea syndrome G47.33 Plan Unclear etiology. Will attempt to get linked to see if patient has a high residual AHI. If this is present, repeat titration may help current situation. Patient is reporting vivid dreams. Differential would include anxiety, depression or duloxetine. Could attempt to transition to a different/alternative medication for duloxetine in the interim. Patient is not reporting symptoms of parasomnia or narcolepsy. Patient does have Benadryl on his medication list, but does not report taking this frequently. This would increase the risk for delirium that may lead to vivid dreams. Obtain Linq to evaluate control of sleep. Consider alternative for duloxetine. Encourage weight loss. HPI Obstructive sleep apnea: Chief Complaint: Tired all the time. Details: Patient is a 59-year-old male, currently under the care of Dr. Portillo, who presents for evaluation secondary to being tired all the time. Patient has seen multiple sleep specialist in the past. Patient states he was placed on BiPAP therapy in 2005 and has been compliant using a nasal interface. Patient states he sleeps 7 to 10 hours a night, but wakes up feeling tired. Patient states he has very vivid dreams and will actively manipulate his dreams. Patient is not reporting waking up or having parasomnia activity. Did call patient's on the phone to verify that he is not having any sleepwalking or belligerent behavior. Patient does not act out his dreams. Patient does have some movements, but does not have any seizure activity. Patient reportedly has been on fluoxetine for several years. Patient does report anxiety and still. Patient states he does not fall asleep during the day as he stays active. However, patient states that he will fall asleep immediately when he puts his mask in place. Patient is not snoring through his mask. Patient is currently using [employer] and would like to be switched to [employer]. Patient does not report any difficulty with obtaining supplies. Documentation reviewed 32 pages of documentation were reviewed prior to the office visit. This did include an office note from November 2019. At that time patient had reported some insomnia. Patient reportedly seen Dr. Perez in the past and was diagnosed with obstructive sleep apnea and placed on Pap therapy. At the referenced office note, patient's BMI was noted to be 45.26 kg/m???. Patient does carry a diagnosis of rheumatoid arthritis with no mention of pulmonary involvement. Patient also has reported decreased responsiveness to baseline CPAP therapy. Patient's last sleep study was completed in 2014 with a BMI of 45.8 and was noted to have an AHI of 6.9 and was titrated to nasal BiPAP 18/14 centimeters of water. Intake Vital Signs 03/23/20 Height 5 ft 6 in 03/23/20 Weight: 130.181 kg 03/23/20 BMI 46.3 03/23/20 BP 145/88 H 03/23/20 Blood Pressure Location Lt brachial 03/23/20 Position Sitting 03/23/20 Respiration 18 03/23/20 Pulse 86 03/23/20 Pulse Source Monitor 03/23/20 Temp 36.8 C 03/23/20 Temperature Source Tympanic 03/23/20 Pulse Oximetry (%) 94 03/23/20 Oxygen Delivery Method room air Intake Visit Reasons: Obstructive sleep apnea DME Vendor: [employer] Allergies acetaminophen [From Vicodin] Allergy (Verified 03/23/20 07:55) unknown codeine Allergy (Verified 03/23/20 07:55) Hives gabapentin [From Neurontin] Allergy (Verified 03/23/20 07:55) Hives hydrocodone [From Vicodin] Allergy (Verified 03/23/20 07:55) unknown Sulfa (Sulfonamide Antibiotics) Allergy (Verified 03/23/20 07:55) Rash BAND AID Allergy (Uncoded 03/23/20 07:55) Rash Medications Duloxetine Hcl [Cymbalta] 60 mg PO DAILY 04/20/16 [History Confirmed 03/18/20] Levocetirizine Dihydrochloride [Xyzal] 5 mg PO DAILY 04/20/16 [History Confirmed 03/18/20] Pantoprazole Sodium [Protonix] 40 mg PO DAILY 04/20/16 [History Confirmed 03/18/20] cholecalciferol (vitamin D3) 25 mcg (1,000 unit) capsule 2,000 unit PO DAILY 03/29/17 [History Confirmed 03/18/20] aspirin 81 mg tablet,delayed release 81 mg PO DAILY 06/04/18 [History Confirmed 03/18/20] Diphenhydramine HCl [Simply Sleep] 50 mg PO QHS 08/05/18 [History Confirmed 03/18/20] Losartan Potassium [Cozaar] 50 mg PO DAILY 08/05/18 [History Confirmed 03/18/20] amoxicillin 875 mg-potassium clavulanate 125 mg tablet 1 tab PO Q12H 10 Days #20 tab 03/18/20 [Rx Confirmed 03/18/20] acetaminophen 650 mg tablet,extended release 650 mg PO Q12H 03/22/20 [History] [facility] Medical History (Updated 03/22/20 @ 12:43 by Shannan Esquivel) BPV (benign positional vertigo) (Acute) Rosacea (Acute) KAYLEE (obstructive sleep apnea) (Acute) Vitamin D deficiency (Acute) Immunocompromised (Acute) Eosinophilia, unspecified (Acute) GERD with apnea (Acute) Osteoarthritis (Acute) Diaphragmatic hernia without obstruction (Acute) Cervical radiculopathy (Acute) Carotid stenosis (Acute) Raynauds syndrome (Acute) Radiculopathy of leg (Acute) Daytime somnolence (Acute) Tendonitis, Achilles, right (Acute) Inversion sprain of right ankle (Acute) Actinic keratosis (Acute) Seizures (Acute) Hay fever (Acute) Diabetes (Acute) HTN (hypertension) (Chronic) Surgical History (Updated 03/22/20 @ 12:45 by Shannan Esquivel) H/O repair of rotator cuff (Resolved) Family History Father Sepsis ETOH abuse Mother Diabetes Hypertension Social History (Updated 03/23/20 @ 08:[address] Colin Plata MD) Smoking Status: Never smoker alcohol intake: current alcohol intake frequency: holidays/special occasions only Alcohol type: wine Review of Systems Resp Respiratory: Yes as per HPI Exam Const Constitutional: Positive conversant, cooperative, in no acute respiratory distress, healthy appearing, well developed, well nourished, good hygiene and obese; negative wearing supplemental oxygen or ill appearing Head Head: Yes normocephalic, Yes atraumatic, No cyanosis of lips/distal nose Eyes Eye: Positive clear conjunctiva; negative nystagmus, scleral abnormality or cataract present Ears Ear: Positive hearing normal and external ears normal; negative hard of hearing Nose Nose: Yes external nose normal, No nasal polyp, Yes septum normal Mouth Mouth: Positive oral mucosae normal, no lesions and good dentition; negative oral thrush present or post nasal drip Mallampati Score: IV: Mallampati Score Neck Neck: Positive normal visual inspection, full ROM, trachea midline and male neck greater than 43 cm (17 in); negative lymphadenopathy or JVD Chest Wall Chest: Positive normal inspection of the chest and symmetric chest movement; negative crepitus or tenderness Resp lung sounds: Positive clear to auscultation, good air exchange and normal expiratory time; negative wheezes, wheeze present on forced exhalation, rhonchi, rales, dullness to percussion or use of accessory muscles Cardio Cardiac: Positive regular rate, regular rhythm, S1 normal and S2 normal; negative murmur, rub or gallop GI GI: Positive normal to inspection, normal bowel sounds and obese; negative distended, ascites or epigastric tenderness Genitourinary: Positive deferred Musc Musculoskeletal: Positive steady gait; negative using an assistive device for ambulation, kyphosis or scoliosis Skin Pulmonary Skin Exam: Positive intact; negative lesion, rash, ulcers or erythema Pulses Pulse: Yes radial pulses present Extremities Extremities: Yes capillary refill normal, No clubbing, No cyanosis, No edema Neuro Neurologic: Yes no focal neuro deficits, Yes conversant, Yes cooperative, Yes normal cognition, Yes normal coordination, Yes normal concentration, Yes understands questions Lymph Lymphatic: No lymphadenopathy Psych Appearance: Positive grossly normal Mental Status: Positive mental status grossly normal Mood: Positive congruent mood Affect: Positive normal affect Coding Level of Care Code Off vis,new,level 3 Diagnoses Obstructive sleep apnea syndrome G47.33 03/23/20 0830 <Electronically signed by Colin Plata MD> Date ___ Colin Plata MD Cosigner Signature: Date ___ (if applicable) CC: Dr. Cari Portillo, DO Cari Portillo Start: 03-18-2020 End: 03-18-2020 Urgent Care Visit Report Comments: See Note; NOTES: [facility] [address] [place], [place] [id number] OFFICE VISIT Date of Service: 03/18/20 MR#: [id number] Acct: [id number] Name: WILLA MORROW Jr. Rep #: [id number] : 1960 Provider: STARR Motley Age/Sex: 59/M [place] [facility] Status: Signed Intake Vital Signs 03/18/20 BP 142/84 H 03/18/20 Blood Pressure Location Lt brachial 03/18/20 Position Sitting 03/18/20 Respiration 16 03/18/20 Pulse 88 03/18/20 Pulse Source Monitor 03/18/20 Temp 97.6 F L 03/18/20 Temp Source Temporal 03/18/20 Pulse Oximetry (%) 98 03/18/20 Oxygen Delivery Method room air Intake Visit Reasons: EARACHE, SINUS INFECTION Chief Complaint: Sinus congestion and ear pressure/pain Allergies codeine Allergy (Verified 03/18/20 15:09) Hives gabapentin [From Neurontin] Allergy (Verified 03/18/20 15:09) Hives Sulfa (Sulfonamide Antibiotics) Allergy (Verified 03/18/20 15:09) Rash BAND AID Allergy (Uncoded 03/18/20 15:09) Rash Medications Duloxetine Hcl [Cymbalta] 60 mg PO DAILY 04/20/16 [History Confirmed 03/18/20] Levocetirizine Dihydrochloride [Xyzal] 5 mg PO DAILY 04/20/16 [History Confirmed 03/18/20] Pantoprazole Sodium [Protonix] 40 mg PO DAILY 04/20/16 [History Confirmed 03/18/20] cholecalciferol (vitamin D3) 25 mcg (1,000 unit) capsule 2,000 unit PO DAILY 03/29/17 [History Confirmed 03/18/20] aspirin 81 mg tablet,delayed release 81 mg PO DAILY 06/04/18 [History Confirmed 03/18/20] meloxicam 15 mg tablet 15 mg PO DAILY #30 tab 06/04/18 [Rx Confirmed 03/18/20] Diphenhydramine HCl [Simply Sleep] 50 mg PO QHS 08/05/18 [History Confirmed 03/18/20] Losartan Potassium [Cozaar] 50 mg PO DAILY 08/05/18 [History Confirmed 03/18/20] Zolpidem Tartrate [Ambien (Generic)] 5 mg PO QHS PRN PRN #14 tab 08/08/18 [Rx Confirmed 03/18/20] amoxicillin 875 mg-potassium clavulanate 125 mg tablet 1 tab PO Q12H 10 Days #20 tab 03/18/20 [Rx Confirmed 03/18/20] PFSH Medical History Diabetes (Acute) Hay fever (Acute) Seizures (Acute) HTN (hypertension) (Chronic) Social History (Updated 03/18/20 @ 16:23 by Antonio CLEMENTS, PA) Smoking Status: Never smoker alcohol intake: current alcohol intake frequency: holidays/special occasions only Alcohol type: wine HPI HPI Chief Complaint: Sinus congestion and ear pressure/pain Details: ED CRISTHIAN, is a 59 M who presents to the office today for complaint of sinus congestion/ear pressure and pain for the past 5 days. Patient states that he has had sinus i nfections in the past with similar symptoms. He denies any otorrhea or hearing change/loss. No fever, chills, sweats. No cough, shortness of breath or difficulty breathing. No nausea, vomiting, diarrhea. No other associated symptoms or alleviating/aggravating factors. ROS Const Constitutional: Positive for other (6 system ROS completed with pertinent findings in the HPI otherwise normal.) Exam Const General: cooperative, healthy appearing HENMT Head: normal to inspection Ears: hearing grossly normal bilaterally, TM's normal bilaterally, EAC's normal Nose: nasal discharge purulent Face and sinus: sinus tenderness frontal and maxillary Mouth: oral mucosae normal Throat: abnormal tonsil bilaterally, postnasal drainage Resp Effort Inspection: normal respiratory effort Auscultation: Bilateral: Clear to Auscultation Cardio Palpation: normal PMI Rate: regular rate Rhythm: regular rhythm Neuro General: alert, CN's II-XI intact bilaterally Psych Appearance: grossly normal Mental Status: mental status grossly normal Assessment Plan Problems 1. Acute non-recurrent pansinusitis J01.40 Status Acute Plan Augmentin as prescribed today. Encouraged to get plenty of rest, drink lots of clear liquids, and use Tylenol or Ibuprofen (unless contraindicated) for fever and comfort. Patient also educated on other symptomatic management techniques. To be seen in 7-10 days if no improvement; sooner if worsening of symptoms. Patient advised of potential red flags and when appropriate to report to the ED. Patient verbalized understanding and agreement with all the above. Medications New: amoxicillin-pot clavulanate 875-125 mg (Augmentin) 1 tab PO Q12H 10 days 20 tabs 0RF J01.90 Coding Level of Care Code Off vis,est,level 3 Diagnoses Acute non-recurrent pansinusitis J01.40 ?Sinusitis location: pansinusitis ?Recurrence: non-recurrent 03/18/20 1623 <Electronically signed by Antonio CLEMENTS> Date ___ Antonio CLEMENTS Cosigner Signature: Date ___ (if applicable) CC: Cari Portillo Start: 02-16-2020 End: 02-16-2020 Urgent Care Visit Report Comments: See Note; NOTES: [facility] [address] [place] [address] [address] [place] [address] OFFICE VISIT Date of Service: 02/16/20 MR#: [id number] Acct: [id number] Name: WILLA MORROW . Rep #: [id number] : 1960 Provider: STARR Motley Age/Sex: 59/M Location[place] [facility] Status: Signed Intake Vital Signs 02/16/20 Height 5 ft 5 in 02/16/20 Weight: 273 lb 8 oz 02/16/20 BMI 45.5 02/16/20 BP 125/75 H 02/16/20 Blood Pressure Location Lt brachial 02/16/20 Position Sitting 02/16/20 Respiration 14 02/16/20 Pulse 76 02/16/20 Pulse Source Monitor 02/16/20 Temp 98 F 02/16/20 Temp Source Temporal 02/16/20 Pulse Oximetry (%) 97 02/16/20 Oxygen Delivery Method room air Intake Visit Reasons: lower legs bilat pain Chief Complaint: Bilateral leg abrasions Allergies codeine Allergy (Verified 02/16/20 06:31) Hives gabapentin [From Neurontin] Allergy (Verified 02/16/20 06:31) Hives Sulfa (Sulfonamide Antibiotics) Allergy (Verified 02/16/20 06:31) Rash BAND AID Allergy (Uncoded 02/16/20 06:31) Rash Medications Duloxetine Hcl [Cymbalta] 60 mg PO DAILY 04/20/16 [History Confirmed 02/16/20] Levocetirizine Dihydrochloride [Xyzal] 5 mg PO DAILY 04/20/16 [History Confirmed 02/16/20] Pantoprazole Sodium [Protonix] 40 mg PO DAILY 04/20/16 [History Confirmed 02/16/20] cholecalciferol (vitamin D3) 25 mcg (1,000 unit) capsule 2,000 unit PO DAILY 03/29/17 [History Confirmed 02/16/20] aspirin 81 mg tablet,delayed release 81 mg PO DAILY 06/04/18 [History Confirmed 02/16/20] meloxicam 15 mg tablet 15 mg PO DAILY #30 tab 06/04/18 [Rx Confirmed 02/16/20] Diphenhydramine HCl [Simply Sleep] 50 mg PO QHS 08/05/18 [History Confirmed 02/16/20] Losartan Potassium [Cozaar] 50 mg PO DAILY 08/05/18 [History Confirmed 02/16/20] Zolpidem Tartrate [Ambien (Generic)] 5 mg PO QHS PRN PRN #14 tab 08/08/18 [Rx Confirmed 02/16/20] doxycycline hyclate 100 mg capsule 100 mg PO BID 10 Days #20 cap 02/16/20 [Rx Confirmed 02/16/20] PFSH Medical History Diabetes (Acute) Hay fever (Acute) Seizures (Acute) HTN (hypertension) (Chronic) Social History (Updated 02/16/20 @ 06:58 by Antonio CLEMENTS, STARR) Smoking Status: Never smoker alcohol intake: current alcohol intake frequency: holidays/special occasions only Alcohol type: wine HPI HPI Chief Complaint: Bilateral leg abrasions Details: WILLA MORROW, is a 59 M who presents to the office today for concern for pain to his right leg after having to break into his home approximately 11 days ago.Patient states that he sustained abrasions to both legs after break-in. Stating that he scratched his legs on the door when crawling in. Patient states that he has noticed that the swelling to the right leg has gone down slightly however is concerned for possible infection as he continues to have a mild amount of swelling. He denies any fever, chills, sweats. No nausea, vomiting, diarrhea. No loss of sensation, range of motion in either leg. No other associated symptoms or alleviating/aggravating factors. ROS Const Constitutional: Positive for other (6 system ROS completed with pertinent findings in the HPI otherwise normal.) Exam Const General: cooperative, healthy appearing Resp Effort Inspection: normal respiratory effort Auscultation: Bilateral: Clear to Auscultation Cardio Palpation: normal PMI Rate: regular rate Rhythm: regular rhythm Skin General: no rashes or lesions noted Neuro General: alert, CN's II-XI intact bilaterally Extrem Other: To surface abrasions to the right anterior lower leg with no surrounding erythema, warmth or drainage. There is a minimal amount of swelling over the superior right ibarra. Of note the patient does have 1-2+ pitting edema worse on the right leg. Full sensation, range of motion and distal pulses intact. Negative Conor or Homans' sign. Psych Appearance: grossly normal Mental Status: mental status grossly normal Assessment Plan Problems 1. Abrasion of right lower extremity, initial encounter S80.811A Status Acute Plan Doxycycline as prescribed today. Encouraged to get plenty of rest, drink lots of clear liquids, and use Tylenol or Ibuprofen (unless contraindicated) for fever and comfort. Patient also educated on other symptomatic management techniques. To be seen in 7-10 days if no improvement; sooner if worsening of symptoms. Patient advised of potential red flags and when appropriate to report to the ED. Patient verbalized understanding and agreement with all the above. Medications New: doxycycline hyclate 100 mg PO BID 10 days 20 caps 0RF J01.90 Coding Level of Care Code Off vis,est,level 3 Diagnoses Abrasion of right lower extremity, initial encounter S80.811A ?Encounter type: initial encounter 02/16/20 0658 <Electronically signed by Antonoi CLEMENTS> Date ___ Antonio CLEMENTS Cosigner Signature: Date ___ (if applicable) CC: Cari Portillo Start: 12-16-2019 End: 12-16-2019 Carotid Duplex Ultrasound Comments: See Note; NOTES: [facility] [place] [address] Carotid Duplex Ultrasound 12/16/19 0900 MR#: [id number] Acct: [id number] Name: WILLA MORROW Jr. Rep #: [id number] : 1960 59 From: Graham Reyna MD Attending Dr: Dr. Cari Portillo, DO Status: R EG CLI Ordering Dr: Cari Portillo DO Date: 12/16/19 Location: [facility] Sex: M C Admitted: Reason For Study: Carotid stenosis Rt. Velocities/BP Lt. Velocities/BP Prox CCA 143.2/26.7 cm/sec. Prox CCA 128/29.2 cm/sec. Mid CCA 138.1/34.4 cm/sec. Mid CCA 110.4/29.2 cm/sec. Dist CCA 114.8/31.4 cm/sec. Dist CCA 97.2/31.4 cm/sec. Prox ICA 73.6/17 cm/sec. Prox ICA 139/31.4 cm/sec. Mid ICA 63/23.4 cm/sec. Mid ICA 84.1/18.2 cm/sec. Dist ICA 65.2/26.7 cm/sec. Dist ICA 75.3/26.2 cm/sec. Rt. ICA/CCA = 0.53. Lt. ICA/CCA = 1.26. Prox ECA 125.8/24.8 cm/sec. Prox ECA 149.9/22.6 cm/sec. Rt. Vert. 42.1/13.5 cm/sec. Lt. Vert. 43.2/13.5 cm/sec. Right Extracranial There is intimal thickening but no significant atherosclerotic plaque noted in the right common carotid artery. There is intimal thickening but no significant atherosclerotic plaque noted in the right internal carotid artery. There is intimal thickening but no significant atherosclerotic plaque noted in the right external carotid artery. Antegrade flow is noted in the right vertebral artery. Left Extracranial There is intimal thickening but no significant atherosclerotic plaque noted in the left common carotid artery. There is intimal thickening but no significant atherosclerotic plaque noted in the left internal carotid artery. There is intimal thickening but no significant atherosclerotic plaque noted in the left external carotid artery. Antegrade flow is noted in the left vertebral artery. Procedure Carotid Duplex [id number]. This is a Carotid Duplex examination using B-mode, color flow and specral Doppler. Exam performed in department. Interpretation Summary No significant atherosclerotic plaque or stenosis noted in the internal carotid arteries bilaterally. Flow within the vertebral arteries is antegrade bilaterally. ____ _ Ordering Physician: Cari Portillo Referring Physician: Cari Portillo Performed By: Myrna Rosa RVT 12/16/191820 Date ___ Graham Reyna MD CC: Dr. Cari Portillo, DO Date Dictated: 12/16/19899 Date Transcribed: 12/16/191820 Air Twister Winder: Signed Cari Portillo Work Phone: Start: 08-19-2019 End: 08-19-2019 Urgent Care Visit Report Comments: See Note; NOTES: [facility] [address] [place] [address] OFFICE VISIT Date of Service: 08/19/19 MR#: [id number] Acct: [id number] Name: WILLA MORROW Jr. Rep #: [id number] : 1960 Provider: STARR portillo Age/Sex: 58/M Location: [facility] Status: Signed Intake Vital Signs 08/19/19 BP 110/84 H 08/19/19 Blood Pressure Location Lt brachial 08/19/19 Position Sitting 08/19/19 Respiration 16 08/19/19 Pulse 80 08/19/19 Pulse Source Monitor 08/19/19 Temp 97.4 F L 08/19/19 Temp Source Oral 08/19/19 Pulse Oximetry (%) 94 08/19/19 Oxygen Delivery Method room air Intake Visit Reasons: STITCHES REMOVAL/LEFT THUMB Chief Complaint: L thumb laceration recheck 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: No Accompanied by: None Is patient in pain?: No Allergies codeine Allergy (Verified 08/11/19 16:41) Hives gabapentin [From Neurontin] Allergy (Verified 08/11/19 16:41) Hives Sulfa (Sulfonamide Antibiotics) Allergy (Verified 08/11/19 16:41) Rash BAND AID Allergy (Uncoded 08/11/19 16:41) Rash PFSH Social History (Updated 08/19/19 @ 08:15 by STARR Nunes) Smoking Status: Never smoker alcohol intake: current alcohol intake frequency: holidays/special occasions only Alcohol type: wine HPI HPI Chief Complaint: L thumb laceration recheck Details: ED CRISTHIAN, is a 58 M who presents to the office today for recheck of left thumb laceration at dorsal IPJ. Patient notes he has been compliant with wound care, noting no complaints and without loss of sensation or strength or function at the injury site or distal to. He is requesting he have sutures removed at this time. He notes no other associated symptoms and no other alleviating or aggravating factors. ROS Const Constitutional: No other (ROS unchanged from previous evaluation other than as noted above) Exam Const General: cooperative, healthy appearing, comfortable, no acute distress Nutritional Appearance: well nourished, obese Orientation: alert, awake, oriented x3 Resp Effort Inspection: normal respiratory effort, able to speak in complete sentences, symmetric chest movement Cardio Rate: regular rate Pulses: radial pulses present Skin General: no rashes or lesions noted Trauma: laceration (See procedure) Neuro General: alert, awake, oriented x3, gait normal Cognition: normal cognition Speech: speech normal Gait: normal gait Motor: muscle tone normal throughout Sensory Exam: no sensory deficits noted Extrem General: full ROM, normal capillary refill, normal exam except as noted (Left thumb laceration; see procedure), no joint enlargement Psych Appearance: grossly normal Mental Status: mental status grossly normal Mood: congruent mood Affect: normal affect Speech and Movement: speech and movement normal Attitude: cooperative Thought Process: normal Thought Content: normal Judgment: judgment good Office Procedures Suture/Staple Removal Suture/Staple Procedure performed by: Eber Pena Staple/Suture Removal: X3 SI sutures removed without incident with wound approximation well- maintained thereafter. Site recleansed with alcohol pad then bacitracin ointment and Band-Aid applied thereafter, with patient stating tolerating procedure well Assessment Plan Problems 1. Laceration of left thumb without foreign body without damage to nail, initial encounter S61.012A Plan See procedure note above, encouraging patient to keep site clean dry and covered for an additional 7 to 10 days. Follow-up with now clinic on an as-needed basis only. Patient states acknowledging understanding all the above. This note was generated with [employer] dictation software. It may contain incorrect words, spelling, and punctuation that were not noted in checking the note before signing. Coding Level of Care Code Off vis,est,level 3 Diagnoses Laceration of left thumb without foreign body without damage to nail, initial encounter S61.012A ?Encounter type: initial encounter 08/19/19 0815 <Electronically signed by Eber CLEMENTS> Date ___ Eber CLEMENTS Cosigner Signature: Date ___ (if applicable) CC: Cari Portillo Start: 08-11-2019 End: 08-11-2019 Urgent Care Visit Report Comments: See Note; NOTES: [facility] [address] [place], [place] [id number] OFFICE VISIT Date of Service: 08/11/19 MR#: [id number] Acct: [id number] Name: WILLA MORROW Jr. Rep #: [id number] : 1960 Provider: STARR Motley Age/Sex: 58/M Location: [facility] Status: Signed Intake Vital Signs 08/11/19 BMI 43.0 08/11/19 Height 5 ft 8 in 08/11/19 Weight: 243 lb 08/11/19 BMI 36.9 08/11/19 BP 130/82 H 08/11/19 Respiration 16 08/11/19 Pulse 74 08/11/19 Temp 98.5 F 08/11/19 Temp Source Temporal 08/11/19 Pulse Oximetry (%) 99 08/11/19 Oxygen Delivery Method room air Intake Visit Reasons: LT THUMB LACERATION Chief Complaint: L thumb laceration 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: No Accompanied by: self Is patient in pain?: No Allergies codeine Allergy (Verified 08/11/19 16:41) Hives gabapentin [From Neurontin] Allergy (Verified 08/11/19 16:41) Hives Sulfa (Sulfonamide Antibiotics) Allergy (Verified 08/11/19 16:41) Rash BAND AID Allergy (Uncoded 08/11/19 16:41) Rash Medications Duloxetine Hcl [Cymbalta] 60 mg PO DAILY 04/20/16 [History Confirmed 08/11/19] Levocetirizine Dihydrochloride [Xyzal] 5 mg PO DAILY 04/20/16 [History Confirmed 08/11/19] Pantoprazole Sodium [Protonix] 40 mg PO DAILY 04/20/16 [History Confirmed 08/11/19] cholecalciferol (vitamin D3) 25 mcg (1,000 unit) capsule 2,000 unit PO DAILY 03/29/17 [History Confirmed 08/11/19] aspirin 81 mg tablet,delayed release 81 mg PO DAILY 06/04/18 [History Confirmed 08/11/19] meloxicam 15 mg tablet 15 mg PO DAILY #30 tab 06/04/18 [Rx Confirmed 08/11/19] Diphenhydramine HCl [Simply Sleep] 50 mg PO QHS 08/05/18 [History Confirmed 08/11/19] Losartan Potassium [Cozaar] 50 mg PO DAILY 08/05/18 [History Confirmed 08/11/19] Zolpidem Tartrate [Ambien (Generic)] 5 mg PO QHS PRN PRN #14 tab 08/08/18 [Rx Confirmed 08/11/19] PFSH Medical History Diabetes (Acute) Hay fever (Acute) Seizures (Acute) HTN (hypertension) (Chronic) Social History (Updated 08/11/19 @ 17:13 by STARR Braden) Smoking Status: Never smoker alcohol intake: current alcohol intake frequency: holidays/special occasions only Alcohol type: wine HPI HPI Chief Complaint: L thumb laceration Details: ED CRISTHIAN, is a 58 M who presents to the office today for evaluation of a left thumb laceration which occurred just prior to coming to the office today. Patient states that he was cutting drywall and slipped cutting his left thumb. He does report washing the area out and bandaging it prior to coming. Patient denies numbness, tingling or loss of range of motion. He denies any anticoagulant use. He states being aware of his last tetanus immunization. No other associated symptoms or alleviating/aggravating factors. ROS Const Constitutional: Positive for other (6 system ROS completed with pertinent findings in the HPI otherwise normal.) Exam Const General: cooperative, healthy appearing Resp Effort Inspection: normal respiratory effort Auscultation: Bilateral: Clear to Auscultation Cardio Palpation: normal PMI Rate: regular rate Rhythm: regular rhythm Skin Other: Laceration to the dorsal aspect of the left thumb over the DIP that measured 1.7 cm.The wound was prepped and draped in sterile fashion. Anesthesia was achieved with 2 mL of 1% lidocaine. The wound was irrigated and explored. There were no foreign bodies, tendon injuries or exposed bone. The wound was reapproximated using three 4-0 Ethilon sutures. There was excellent reapproximation of the wound edges. Wound dressed with bacitracin and sterile gauze. The patient tolerated the procedure without complication. Patient instructed to f/u for suture removal in 7-10 days. Neuro General: alert, CN's II-XI intact bilaterally Extrem General: full ROM, normal capillary refill, normal exam except as noted, no joint enlargement Other: Normal distal pulses, sensation to light touch and capillary refill. Psych Appearance: grossly normal Mental Status: mental status grossly normal Immunizations Boostrix Tdap Performing Provider: STARR Braden Administered by: Nina Ordonez on 08/11/19 17:11 Dose Route Admin Location Lot Number Expiration Date [facility] Manufactu rer 0.5 mL IM Right Deltoid [id number] 10/09/20 [id number] [employer] VIS Given Date VIS Provided VIS Publication Date 08/11/19 Single Vaccine 19 Eligibility Eligibility Date Funding Source None Assessment Plan Problems 1. Laceration of left thumb without foreign body without damage to nail, initial encounter S61.012A Status Acute Plan Tdap updated today. See laceration repair above in skin exam. Patient advised of appropriate wound management and to follow-up here in 7 to 10 days for suture removal or sooner should he have any worsening symptoms or new concerns. Patient advised of p otential red flags and when appropriate to report to the ED. Patient verbalized understanding and agreement with all the above. Orders Orders: Tdap Immunization Today Z23 Coding Level of Care Code Off vis,est,level 4 Diagnoses Laceration of left thumb without foreign body without damage to nail, initial encounter S61.012A ?Encounter type: initial encounter 08/11/19 1713 <Electronically signed by Antonio CLEMENTS> Date ___ Antonio CLEMENTS Cosigner Signature: Date ___ (if applicable) CC: Cari Portillo Start: 04-24-2019 End: 04-24-2019 Orthopedic Visit Report Comments: See Note; NOTES: [facility] [address] [place] [address] OFFICE VISIT Date of Service: 04/23/19 MR#: [id number] Acct: [id number] Name: WILLA MORROW Jr. Rep #: [id number] : 1960 Provider: STARR Rosario Age/Sex: 58/M Location[place] [facility] Status: Signed Intake Intake Visit Reasons: 6 mon fu L shoulder Is patient in pain?: No Allergies codeine Allergy (Verified 10/15/18 13:07) Hives gabapentin [From Neurontin] Allergy (Verified 10/15/18 13:07) Hives Sulfa (Sulfonamide Antibiotics) Allergy (Verified 10/15/18 13:07) Rash BAND AID Allergy (Uncoded 10/15/18 13:07) Rash Medications Duloxetine Hcl [Cymbalta] 60 mg PO DAILY 04/20/16 [History Confirmed 04/23/19] Levocetirizine Dihydrochloride [Xyzal] 5 mg PO DAILY 04/20/16 [History Confirmed 04/23/19] Pantoprazole Sodium [Protonix] 40 mg PO DAILY 04/20/16 [History Confirmed 04/23/19] cholecalciferol (vitamin D3) 25 mcg (1,000 unit) capsule 2,000 unit PO DAILY 03/29/17 [History Confirmed 04/23/19] aspirin 81 mg tablet,delayed release 81 mg PO DAILY 06/04/18 [History Confirmed 04/23/19] meloxicam 15 mg tablet 15 mg PO DAILY #30 tab 06/04/18 [Rx Confirmed 04/23/19] Diphenhydramine HCl [Simply Sleep] 50 mg PO QHS 08/05/18 [History Confirmed 04/23/19] Losartan Potassium [Cozaar] 50 mg PO DAILY 08/05/18 [History Confirmed 04/23/19] Zolpidem Tartrate [Ambien (Generic)] 5 mg PO QHS PRN PRN #14 tab 08/08/18 [Rx Confirmed 04/23/19] PFSH Social History (Updated 04/24/19 @ 08:38 by STARR Lucero) Smoking Status: Never smoker alcohol intake: current alcohol intake frequency: holidays/special occasions only Alcohol type: wine HPI 6 mon fu L shoulder: Details: Parts of this documentation were recorded by a scribe, this documentation accurately reflects the service provided and the decisions made by Rob irvin PA 04/23/19 0758. WILLA MORROW is a 58 year old M here today for 6 month F/U on left sals, rotator cuff repair, subacromial decompression, open biceps subpec tenodesis 10/22/18. He is doing good, no complaints of pain today and is able to do all desired activities. Denies numbness, tingling or other associated symptoms. All incisions are well healed. Ortho Exam Left Shoulder Skin/Wound: Yes healed, No ecchymosis, No erythema, No swelling Testing: No empty can SHOULDER: Patient has no acute abnormalities on inspection of the left shoulder. There is no localized or generalized swelling. His incision sites have healed well with minimal scarring and no signs of inflammation. Patient does have good range of motion the left shoulder at this time. He actually has slightly better range of motion on the left compared to the right at the same time is not probably full compared to others. He has good strength against resistance and actually feels like he is stronger on the left than on the right. He has normal sensation throughout the extremity and normal distal radial pulses. Assessment AND Plan Problems 1. Orthopedic aftercare Z47.89 Plan Patient presents for 6-month follow-up of left rotator cuff repair. At this patient appears to be doing very well having range of motion and strength that actually is better than the right side which was repaired prior to the left shoulder. His incisions have healed well with minimal scarring and no signs of inflammation or infection. At this time patient should continue to work on improving strength in the left shoulder with home exercise program. He can definitely ice and take anti-inflammatories as needed for inflammation/pain. At this time he is able to participate in activities as tolerated. I still think that gradual increase with lifting especially any overhead lifting is important and not just go to real heavy lifting. Patient to notify of any new injuries, increased pain, increased swelling, or any other signs or symptoms. This note was generated with [employer] software. It may contain incorrect words, spelling, and punctuation that were not noted in checking the note before signing. Coding Level of Care Code Off vis,est,level 2 Diagnoses Orthopedic aftercare Z47.89 04/24/19 0838 <Electronically signed by Rob CLEMENTS> Date ___ Rob CLEMENTS Cosigner Signature: Date ___ (if applicable) CC: Cari Portillo Start: 01-16-2019 End: 01-16-2019 PT D/C Summary (1) Comments: See Note; NOTES: [facility] [address] [place] [address]. [address] [place] [address] / REHABILITATION SERVICES DISCHARGE SUMMARY MR#: [id number] Acct: [id number] Name: WILLA MORROW Jr. Rep #: [id number] : 1960 58 From: Farrukh Mcleod DPT, OCS, CSCS Referring Dr.: Shana Alegria DO Status: REG RCR Insurance: [facility] SELF PAY INSURANCE HP - PT D/C Summary It has been my pleasure to treat ED R CRISTHIAN Gilman under orders from Shana Alegria DO, for the diagnosis of s/p R RCR 08/08/18 [place] for a total of 13 visit(s). Discharge Date: 12/26/18 Please see the following information for a summary of their discharge status. - Subjective Subjective: R shoulder doing well, no problems, no limitations at home or work. 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 - Pain R shoulder Pain Intensity (Out of 10): 0 L shoulder Pain Intensity (Out of 10): 2 - Overall Improvement % Improvement: 90 - Objective Objective/Function: 140 flexion, 140 abd, tends to SB slightly away to get mechanical advantage., Has 42 degrees ext rotation adn L4 IR. Strength is 4- in elevation adn 4- ext rotationa dn 4+ IR. Is working on this I and will continue to. - Goals Goal 1:: ST: Full PROM without excessive pain >1/10 by September 25 Goal Progress: Goal Met Goal 2:: LT: Progress appropriately AROM flexion and elbow flexion/ext and abd ext rotation full to be able to self groom by mid October Goal Progress: Goal Met Goal 3:: ST: sleep through night without waking 7 hours Goal Progress: Goal Met, r shoulder Goal 4:: LT: Pt have plan to be ready to resume fu work at [employer] without increased pain Goal Progress: Goal Met Goal 5:: Pt feel 90% back to normal with activities Goal Progress: Goal Met - Plan Plan: d/c. Will monitor progress as we treat other shoulder. - D/C Information Discharge Comments: Doing well, some weakness persists but will continue to work I on this at home. No functional deficits from a subjective point of view. If there are questions or concerns regarding this patient's physical therapy, please feel free to call me at [phone]. Thank you for the referral of this patient. Sincerely, Farrukh Mcleod, JESSET, OCS, CSCS <Electronically signed by Farrukh Mcleod DPT, OCS, CSCS> 01/16/19 0953 CC: Shana Alegria DO; Cari Ballon EBG Signed Cari Portillo Start: 12-29-2018 End: 12-29-2018 PT D/C Summary (1) Comments: See Note; NOTES: [facility] [address] [place] [address] / REHABILITATION SERVICES DISCHARGE SUMMARY MR#: [id number] Acct: [id number] Name: WILLA MORROW Jr. Rep #: [id number] : 1960 58 From: Farrukh Mcleod DPT, OCS, CSCS Referring Dr.: Shana Alegria DO Status: REG RCR Insurance: [facility] SELF PAY INSURANCE HP - PT D/C Summary It has been my pleasure to treat WILLA MORROW Jr. under orders from Shana Alegria DO, for the diagnosis of s/p R RCR 08/08/18 [place]ive for a total of 13 visit(s). Discharge Date: 12/26/18 Please see the following information for a summary of their discharge status. - Subjective Subjective: R shoulder doing well, no problems, no limitations at home or work. 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 - Pain R shoulder Pain Intensity (Out of 10): 0 L shoulder Pain Intensity (Out of 10): 2 - Overall Improvement % Improvement: 90 - Objective Objective/Function: 140 flexion, 140 abd, tends to SB slightly away to get mechanical advantage., Has 42 degrees ext rotation adn L4 IR. Strength is 4- in elevation adn 4- ext rotationa dn 4+ IR. Is working on this I and will continue to. - Goals Goal 1:: ST: Full PROM without excessive pain >1/10 by September 25 Goal Progress: Goal Met Goal 2:: LT: Progress appropriately AROM flexion and elbow flexion/ext and abd ext rotation full to be able to self groom by mid October Goal Progress: Goal Met Goal 3:: ST: sleep through night without waking 7 hours Goal Progress: Goal Met, r shoulder Goal 4:: LT: Pt have plan to be ready to resume fu work at [employer] without increased pain Goal Progress: Goal Met Goal 5:: Pt feel 90% back to normal with activities Goal Progress: Goal Met - Plan Plan: d/c. Will monitor progress as we treat other shoulder. - D/C Information Discharge Comments: Doing well, some weakness persists but will continue to work I on this at home. No functional deficits from a subjective point of view. If there are questions or concerns regarding this patient's physical therapy, please feel free to call me at [phone]. Thank you for the referral of this patient. Sincerely, Farrukh Mcleod DPT, OCS, CSCS <Electronically signed by JULIO Alvarenga DPT, CSCS> 12/29/18 0651 CC: Shana Alegria DO; Cari Portillo DO EBG Signed Cari Portillo Start: 11-24-2018 End: 11-24-2018 Initial Evaluation (2) - PT Comments: See Note; NOTES: [facility] [address] [place] [address] [address] [place] [address] / REHABILITATION SERVICES INITIAL EVALUATION MR#: [id number] Acct: [id number] Name: WILLA MORROW Jr. Rep #: [id number] : 1960 58 From: Farrukh Mcleod DPT, JULIO, CSCS Referring Dr.: Shana Alegria DO Status: REG RCR Insurance: [facility] [employer] [facility] SELF PAY INSURANCE Patient's Visit Information WILLA MORROW Jr. is a 58 year old M referred to Physical Therapy by Shana Alegria DO with a diagnosis of s/p L RCR 10/22/18. Date of Evaluation: 11/21/18 Physical Therapist: Farrukh Mcleod DPT, JULIO, CSCS - Visit Plan Frequency: 1x/Week Duration: 4 Months Plan: weekly x 12-16 weeks to progress HEP through phases of RCR rehab. PROM until about 12/04. AAROM-AROM through 01/14. resistance as appropriate after that. to do PROM daily at home adn will progress patients HEP as tolerated. ice as needed. - Subjective Findings: New script now received for L RCR. R RCR is 3+ months out L shoulder hurt and swelled up last night out of nowhere. Today not too bad. 12/04 last night with swelling. Taht was unusual as it has been feeling pretty good. Not bad today. RCR 10/22/18. currently. No trouble with incision and No curent ex for it. Sleeping in chair with sling and needs to wear for two more weeks. L tear was worse than right. Working at [employer] but not using L arm. Does take it out of the sling now and then. Is right handed. - Pain L shoulder Intensity: 0 Pain Intensity Range: 0, 10 - Objective Objective: L scapula and biceps and triceps AROM is slow but WNL. PROM L g-h joint is 110 flexion and 90 abd and 18 ext rotation limited by pain and endfeel. Incision are healed well and closed with moderate scar tissue in anterior incision. No signs of excessive redness heat or swelling. Pt has a hard time relaxing tricep muscle during PROM. Dons and doffs sling I and knows preacutions of not using L UE for any activitiy other than ex and using sling for two more weeks but can be out of it at rest and for ex. Walking adn transferring I today to and fro sit and supine. - Goals Goal 1:: ST goals: Full 150 flexion and abd and 50 ext rotation PROM Goal Time Frame: 2-4 Weeks Goal 2:: ST: Sleep through night without sling when allowed by doctor without pain. Goal Time Frame: 2-4 Weeks Goal 3:: LT: Full to 150 elevation adn 50 ext rotation AROM without pain when allowed by doctor Goal Time Frame: 6-8 Weeks Goal 4:: LT: Work safely adn comfortably with both UE without limitations Goal Time Frame: 12-16 Weeks Goal 5:: LT: Pt report 90% improvement in overall fucntional levels and be back to all his normal activities Goal Time Frame: 12-16 Weeks - Rehabilitation Potential Physical Therapy Diagnosis: s/p L RCR Rehabilitation Potential: Good - Anticipated Interventions Patient/Client Instruction: Educate patient on: Condition, Plan of Care For the Purpose of:: To decrease pain, To increase ROM, To improve muscle performance and motor function, To increase tolerance to activity/condition/position, To improve ability of physical actions for home/community/work/leisure Therapeutic Exercise to Include: Strength training, Passive ROM, Active ROM For the Purpose of:: To decrease pain, To increase ROM, To improve muscle performance and motor function, To increase tolerance to activity/condition/position, To improve ability of physical actions for home/community/work/leisure Manual Therapy Techniques to Include: Scar massage, Passive ROM For the Purpose of:: To increase ROM Cryotherapy (ice pack, ice massage): Yes For the Purpose of:: To decrease pain, To decrease swelling/inflammation Thank you for the opportunity to evaluate your patient. For Medicare and Medicare HMO plans, please review the plan of care and approve it. It will need to be FAXED BACK to us at [phone] for Medicare purposes. For Medicare only, by signing this I certify the plan of care. Please let me know if there are questions or concerns regarding this plan of care. Physician Signature: Date: <Electronically signed by Farrukh Mcleod DPT, OCS, CSCS> 11/24/18 0638 CC: Shana Alegria DO; Cari Portillo DO EBG Signed Cari Portillo Start: 11-24-2018 End: 11-24-2018 Re-Evaluation - PT (1) Comments: See Note; NOTES: [facility] [address] [place] [address]. [address] [place] [address] / REEVALUATION / MEDICARE RECERTIFICATION PHYSICAL THERAPY MR#: [id number] Acct: [id number] Name: WILLA MORROW Jr. Rep #: [id number] : 1960 58 From: Farrukh Mcleod DPT, OCS, CSCS Referring Dr.: Shana Alegria DO Status: REG RCR Insurance: [facility] SELF PAY INSURANCE Shana Alegria DO, It has been my pleasure to treat ED Cristian MORROW Jr. over the last 11 visits for s/p R RCR 08/08/18 Massive. Please see the progress note below for an update on the physical therapy plan of care! Subjective: L shoulder hurt and swelled up last night out of nowhere. Today not too bad. 12/04 last night with swelling. Not bad today. RCR 10/22/18. No problems in the last week with R shoulder. Biceps can hurt at times and end range stretches can hurt trasniently. activities are pretty normal but reaching high light switch can still be problematic at work but otherwise R arm is doing fairly well. Dressing adn bathroom are slow. R arm not feeling weak. 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 Sleeping in chair with sling L UE. Objective/Function: 124 AROM flexiona dn abd to start 135 after eccentric wall lowering. 145 PROM flexion/abd. 43 ext rotation today adn L5 IR. All without pain. Strength is 4- er, 4 ir, 4- flexiona and abd, 4+ bi and tricep. Plan Plan: 2 more visits every other week for one month to progress ex, add diagonals and ensure he gets functional AROM back. Fair prognosis to meet goals over next 4 weeks. Quickdash score is effected by new surgery on L UE. Goals Goal 1:: ST: Full PROM without excessive pain >1/10 by September 25 Goal Time Frame: 4-6 Weeks Goal Progress: Goal Met Goal 2:: LT: Progress appropriately AROM flexion and elbow flexion/ext and abd ext rotation full to be able to self groom by mid October Goal Time Frame: 2-4 Weeks Goal Progress: Progressing,a pprop Goal 3:: ST: sleep through night without waking 7 hours Goal Time Frame: 4-6 Weeks Goal Progress: Goal Met, r shoulder Goal 4:: LT: Pt have plan to be ready to resume fu work at [employer] without increased pain Goal Time Frame: 8-12 Weeks Goal Progress: Goal Met Goal 5:: Pt feel 90% back to normal with activities Goal Time Frame: 2-4 Weeks Goal Progress: 75%, progressing, approp Anticipated Interventions Patient/Client Instruction: Educate patient on: Condition, Plan of Care For the Purpose of:: To increase ROM, To improve nutrient delivery to tissue Therapeutic Exercise to Include: Passive ROM For the Purpose of:: To decrease pain, To increase ROM Cryotherapy (ice pack, ice massage): Yes For the Purpose of:: To decrease pain, To decrease swelling/inflammation Please do not hesitate to contact me at [phone] by phone or if you have questions or concerns regarding this new plan of care! Sincerely, Farrukh Mcleod, DPT, OCS, CSCS <Electronically signed by Farrukh Mcleod DPT, OCS, CSCS> 11/24/18 0638 CC: Shana Alegria DO; Cari Portillo DO EBG Signed For Medicare only, by signing this I certify the plan of care. Physicians Signature Date Cari Portillo Start: 11-04-2018 End: 11-04-2018 Operative Report Comments: See Note; NOTES: [facility] Medical Records Department [address] [place] [address] Operative Report 10/22/18 0735 MR#: [id number] Acct: [id number] Name: WILLA MORROW Jr. Rep #: [id number] : 1960 58 From: Shana Alegria DO PCP: Cari Portillo DO Status: [facility] Location: [facility] Report of Operation Date of Procedure: 10/22/18 Pre-Operative Diagnosis: left shoulder rotator cuff tear, subacromial impingment syndrome, biceps tendinosis, Post-Operative Diagnosis: same Surgery/Procedure Performed:: sals, rotator cuff repair, subacromial decompression, open biceps subpec tenodesis brick chimney builder: Rob Rosario Type of Anesthesia:: General Anesthesiologist: Damon Tapia Estimated Blood Loss (mL): none Fluids Replaced: 1300cc lr Description of Procedure: Preop note Patient is a 4-year-old male who has had continued left shoulder pain and weakness for quite some time. Patient failed conservative treatment pain and weakness worsen MRI confirmed a retracted rotator cuff tear with mild atrophy. Risk benefits and alternatives were discussed with patient. Patient also had a biceps tendinosis. Please note. Risk benefits alternatives discussed with patient. Risks include but not limited to blood loss, blood clot, infection, neurovascular, failure procedure, loss of life and loss of limb. Patient is aware like proceed with left shoulder arthroscopy repair as indicated. Operative note Patient seen and examined preop holding her. Left arm was marked. Patient brought to the operating room placed supine on the operating table. Sign, anesthesia, antibiotics were sourcing manager. The patient was prepped and draped usual sterile fashion beachchair positioning all bony promises well-padded SCDs placed on his bilateral lower externally. Please note the custodial through beachchair position we did recheck his blood pressure which is stable throughout. We then again prepped and draped the left shoulder marked out a bony landmarks insufflated the joint from the posterior portal and got good return. Timeout was performed. We then used an 11 blade to create a posterior portal and begin a diagnostic arthroscopy. There was some thinning of the cartilage of the glenohumeral joint was intact. There are no loose bodies in the inferior recess. The subscap which had a split tear but there is not torn off of the its insertion. The biceps was torn. We then created an anterior portal under direct visualization. Resected the rest of the biceps tendon. We were able to visualize a retracted rotator cuff tear. We then moved the scope into the subacromial space. Performed an extensive bursectomy and acromioplasty. We then freed up the rotator cuff a combination of an elevator and a shaver. We then able to visualize it was a reverse L configuration. This is then we then placed into by a composite Arthrex anchors in the medial row we then placed sutures posterior then anterior and a marginal convergence cotton fashion bringing the posterior more anterior and then trying to do a tension-free anterior to the lateral repair. We placed all 4 suture limbs through it we had good reduction of the footprint at that time we then oversewed with a then to tie the knot of the duct and loop with a sliding knot. We then placed 2 swivel locks laterally for our lateral row and then was further reduce the tendon to the footprint. Please note the prior to placing our anchors we did use a burner to debride the soft tissue off of the footprint and then used a bur to create a bleeding bed. Please note we had a good repair of the rotator cuff in its entirety of its footprint. We then irrigated the shoulder with copious nonsterile saline and moved to open subpectoral tenodesis. We resterilized the area where the allotted time and then made about a 2-1/2 to 3 cm incision just distal to the insertion of the pack. We dissect down tenotomies to level of the biceps bisects was then the fascia this sheath was excised and biceps brought on the incision. We then cut the appropriate length sent to pathology for further evaluation and then whipstitched into the biceps tendon we then drilled unicortical he flipped our we had whipstitched the biceps and then placed in a cortically into the humeral shaft. We then oversewed the biceps to the humerus with a free needle. We had a good length maintain that we had good head of the arm the elbow in extension during fixation of the biceps proximally. We then irrigated the incision with copious muscle sterile saline. The portals were closed with interrupted 4-0 nylon and the incision was closed with deep 2-0 Vicryl and running 4 Monocryl. Sterile dressings were applied. Brace sling was applied. Patient tied procedure well no comp case transferred recovery room in stable condition. Proper note Nonweightbearing left arm Hospital pharmacy has prescriptions Patient will be given in 2 weeks to family next Follow-up in 5 days for met weight for brace adjustment and dressing changes Call with increased pain numbness tingling further issues arise This note was generated with [employer] dictation software. It may contain incorrect words, spelling, and punctuation that were not noted in checking the note before signing. 11/04/18 1159 <Electronically signed by Shana Alegria DO> Date ___ Shana Alegria DO CC: Shana Alegria DO; Cari Portillo DO Signed Cari Portillo Start: 10-22-2018 End: 10-22-2018 Discharge Instruction Comments: See Note; NOTES: [facility] Medical Records Department [address] [place] [address] Instructions for Home/Discharge Instructions 10/22/18 0734 MR#: [id number] Acct: [id number] Name: WILLA MORROW Jr. Rep #: [id number] : 1960 58 From: Shana Alegria DO PCP: Cari Portillo DO Status: REG SDC Discharge Diet: No Restrictions - call for appointment on saturday with claudio wayt for dressing change and brace adjustment, sling at all times unless showering or seated, call with concerns, may get incision wet after 5 days Discharge Activity: May Not Drive May shower in (days): 1 Ice area for (Minutes): 20 - Every hour while awake. Weight Bearing Status: Weight bearing as tolerated Keep extremity elevated above heart level: Operative Extremity Call your doctor if your incision/area has: Continuous Slow Oozing, Sudden Increased Bleeding, Increased Pain/ Swelling, Increased Redness, Foul Smelling Discharge Call your doctor if you observe: Fever of 101 or Higher, Coldness, Increased Pain, Numbness or Tingling, Change in Color, Calf discomfort Allergies/Adverse Reactions: Allergies codeine Allergy (Verified 10/15/18 13:07) Hives gabapentin [From Neurontin] Allergy (Verified 10/15/18 13:07) Hives Sulfa (Sulfonamide Antibiotics) Allergy (Verified 10/15/18 13:07) Rash BAND AID Allergy (Uncoded 10/15/18 13:07) Rash Medications to take at Discharge Duloxetine Hcl [Cymbalta] 60 mg PO DAILY 04/20/16 Levocetirizine Dihydrochloride [Xyzal] 5 mg PO DAILY 04/20/16 Pantoprazole Sodium [Protonix] 40 mg PO DAILY 04/20/16 cholecalciferol (vitamin D3) 1,000 unit capsule 2,000 unit PO DAILY 03/29/17 aspirin 81 mg tablet,delayed release 81 mg PO DAILY 06/04/18 meloxicam 15 mg tablet 15 mg PO DAILY #30 tab 06/04/18 Diphenhydramine HCl [Simply Sleep] 50 mg PO QHS 08/05/18 Losartan Potassium [Cozaar] 50 mg PO DAILY 08/05/18 Zolpidem Tartrate [Ambien (Generic)] 5 mg PO QHS PRN PRN #14 tablet 08/08/18 Oxycodone HCl/Acetaminophen [Percocet 5/325] 1 - 2 tablet PO Q6H PRN PRN 5 Days #28 tablet 10/22/18 The following prescriptions were given: Oxycodone HCl/Acetaminophen [Percocet 5/325] 1 - 2 tablet PO Q6H PRN PRN 5 Days #28 tablet PRN Reason: Pain Transmission Status: Sent to [facility] Primary Care Physician: Cari Portillo DO [Primary Care Provider] - Test Results: Test results from this visit will be discussed in further detail at your follow-up appointment, if applicable. Please Follow Up With: Shana Alegria DO - [phone] 10/22/18 0735 <Electronically signed by Shana Alegria DO> Date ___ Shana Alegria DO CC: Cari Portillo DO Signed Cari Portillo Start: 10-21-2018 End: 10-21-2018 History and Physical Exam Comments: See Note; NOTES: [facility] Medical Records Department [address] [place] [address] History and Physical 09/23/18 1032 MR#: [id number] Acct: [id number] Name: WILLA MORROW Jr. Rep #: [id number] : 1960 58 From: Shana Alegria DO PCP: Cari Portillo DO Status: [facility] Location: [facility] I have re-examined the patient. There are no clinical changes since date of exam.Intake Vital Signs 09/23/18 Body Mass Index (BMI) 46.3 Intake Visit Reasons: R. SHOULDER Chief Complaint: f/u right shoulder MRI. Left shoulder new problem Allergies codeine Allergy (Verified 08/05/18 13:27) Hives gabapentin [From Neurontin] Allergy (Verified 08/05/18 13:27) Hives Sulfa (Sulfonamide Antibiotics) Allergy (Verified 08/05/18 13:27) Rash BAND AID Allergy (Uncoded 08/05/18 13:34) Rash PFSH Medical History (Updated 08/08/18 @ 10:06 by Shana Alegria DO) Diabetes (Acute) Hay fever (Acute) Seizures (Acute) HTN (hypertension) (Chronic) Social History (Updated 09/23/18 @ 10:36 by Shana Alegria DO) Smoking Status: Never smoker alcohol intake: current alcohol intake frequency: holidays/special occasions only Alcohol type: wine HPI R. SHOULDER : Surgical H AND P: Yes Details: Parts of this documentation were recorded by a scribe, this documentation accurately reflects the service provided and the decisions made by me, Shana Alegria DO 09/23/18 0808. WILLA MORROW is a 58 year old M here today for 6 week F/U right shoulder arthroscopy, rotator cuff repair subacromial decompression/acromioplasty, open subpec biceps tenodesis. Patient no longer has a hematoma over his biceips. Patient is is abduction sling this day. Denies numbness, tingling or other associated symptoms. Has had improvement since surgery. Has been in PT for PROM but has not preformed any AROM at this point. Denies any concerns. pt also c/o left shoudler pain, weakness, and difficulty with adls. had mri that showed rc tear and is interested in discussing further. ROS Const Reports system reviewed and no additional complaints, except as docu Eyes Reports system reviewed and no additional complaints, except as docu ENT Reports system reviewed and no additional complaints, except as docu Card Reports system reviewed and no additional complaints, except as docu Resp Reports system reviewed and no additional complaints, except as docu GI Reports system reviewed and no additional complaints, except as docu Reports system reviewed and no additional complaints, except as docu Musc Reports as per HPI Skin/Breast Reports system reviewed and no additional complaints, except as docu Neuro Yes system reviewed and no additional complaints, except as docu Psych Reports system reviewed and no additional complaints, except as docu Endo Reports system reviewed and no additional complaints, except as docu Du/Lymph Reports system reviewed and no additional complaints, except as docu Aller/Immun Reports system reviewed and no additional complaints, except as docu Ortho Exam Right Shoulder Date of Surgery: 08/08/18 Skin/Wound: Yes healed Left Shoulder Testing: Yes Hawkin's, Yes Neer's, Yes Speed's, Yes TTP Biceps, Yes Drop Arm, Yes Benton's Assessment AND Plan Problems 1. Orthopedic aftercare Z47.89 Plan Instructed to discontinue the sling, continue to progress in PT and work on rom at home. Reviewed the pre-operative plans with the patient. Risks and benefits of the procedure were fully explained, including but not limited to infection, neurovascular injury, continued pain, arthritis, stiffness, need for further surgery, re-injury, DVT, PE, general risks of anesthesia, and loss of limb or life. The patient understands all the risks and does wish to proceed with written consent. Follow up in 6wks for the right and two weeks post op on the left or sooner if pain, swelling, numbness or associated symptoms, or concerns develop. All questions answered. Patient in agreement of plan. Coding Level of Care Code Off vis,est,level 4 Diagnoses Orthopedic aftercare Z47.89 09/23/18 1036 <Electronically signed by Shana Alegria DO> Date ___ Shana Alegria DO 10/21/18 1434 <Electronically signed by Shana Alegria DO> Date: Time: ___ Shana Alegria DO CC: Shana Alegria DO; Cari Portillo DO Date Dictated: 09/23/18 1032 Date Transcribed: 10/05/18 143 Air Twister Winder: Sahara Portillo Start: 09-01-2018 End: 09-01-2018 Inital Evaluation (1) - PT Comments: See Note; NOTES: [facility] [address] [place] [address]. [address] [place] [address] / REHABILITATION SERVICES INITIAL EVALUATION MR#: [id number] Acct: [id number] Name: WILLA MORROW Jr. Rep #: [id number] : 1960 58 From: Farrukh Mcleod DPT, OCS, CSCS Referring Dr.: Shana Alegria DO Status: REG RCR Insurance: [facility] SELF PAY INSURANCE Patient's Visit Information WILLA MORROW Jr. is a 58 year old M referred to Physical Therapy by Shana Alegria DO with a diagnosis of s/p R RCR 08/08/18 Massive. Date of Evaluation: 08/29/18 Physical Therapist: Farrukh Mcleod DPT, JULIO, CSCS - Visit Plan Frequency: 1-2x /Week Duration: 4 Months Plan: 1-2x/week for. PROM R shoulder, and Passive R elbow flexion and elbow ext. Ensure continued helaing and scap wrist.hand movement. Progress to phase 2 AAROM in September if healing well - Subjective Findings: Had R RCR and biceps 08/08/18. Doctor said it was the worst she has seen. Had hematoma in upper L arm and fluid drawn off a weeka go. Was in pain with tingly pain with hematoma. Now is 1/10 over R UE. Will need L one done at some point 10/04. Challenging to sleep in chair. In sling with abd wedge 99% of time. Gets 5 hours per night. Not allowed to do anything with the R UE. Is allowed to let it hang as of today. Neck pain is OK, forearms still hurt a little bit. 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 Will sit at computer and do some things. Hobbies: Mary and is doing that with Passive R UE. - Pain R shoulder Pain Intensity (Out of 10): 1 Pain Intensity Range: 1, 2 - Objective R arm in sling with abd wedge upon arrival, donned and doffed I. C/S aROM 35 ext adn 45 B rotations without pain. wrist AROM and hand WNL B. Elbow ext is full passively but stiff at full ext, passively, flexion is full but slightly painfula t end range.Scaular AROM WFL. R shoulder PROM: abd 100, flexion 89, ext rotation 40, not much pain but limited by slight apin at end range. Bruising apparent upper R arm and dressed properly. Incisions arthroscopic and have healed well with excessive scarring or redness. Pt demonstrates precautions well flexing R elbow with L UE and only moving R shoulder passively. Walks I, trasnfer to and fro sit and supine I. - Goals Goal 1:: ST: Full PROM without excessive pain >1/10 by September 25 Goal Time Frame: 4-6 Weeks Goal 2:: LT: Progress appropriately AROM flexion and elbow flexion/ext and abd ext rotation full to be able to self groom by mid October Goal Time Frame: 8-12 Weeks Goal 3:: ST: sleep through night without waking 7 hours Goal Time Frame: 4-6 Weeks Goal 4:: LT: Pt have plan to be ready to resume fu work at [employer] without increased pain Goal Time Frame: 8-12 Weeks Goal 5:: Pt feel 90% back to normal with activities Goal Time Frame: 12-16 Weeks - Rehabilitation Potential Physical Therapy Diagnosis: R RCR and resulting symptoms and precuation. Also subpec biceps tenodesis Rehabilitation Potential: Good - Anticipated Interventions Patient/Client Instruction: Educate patient on: Condition, Plan of Care For the Purpose of:: To increase ROM, To improve nutrient delivery to tissue Therapeutic Exercise to Include: Passive ROM For the Purpose of:: To decrease pain, To increase ROM Cryotherapy (ice pack, ice massage): Yes For the Purpose of:: To decrease pain, To decrease swelling/inflammation Thank you for the opportunity to evaluate your patient. For Medicare and Medicare HMO plans, please review the plan of care and approve it. It will need to be FAXED BACK to us at [phone] for Medicare purposes. For Medicare only, by signing this I certify the plan of care. Please let me know if there are questions or concerns regarding this plan of care. Physician Signature: Date: <Electronically signed by Farrukh Mcleod DPT, OCS, CSCS> 09/01/18 0641 CC: Shana Alegria DO; Cari Portillo DO EBG Signed Cari Portillo Start: 08-22-2018 End: 08-22-2018 Venous Duplex Upper Extremity Comments: See Note; NOTES: [facility] [address] [place] [address] Venous Duplex US, Unilateral 08/22/18 1040 MR#: [id number] Acct: [id number] Name: WILLA MORROW Jr. Rep #: [id number] : 1960 58 From: Dayron Weldon MD Attending Dr: Shana Alegria DO Status: REG CLI Ordering Dr: Shana Alegria DO Date: 08/22/18 Location: [facility] Sex: M C Admitted: Reason For Study: Swelling Right Proximal Right jugular vein is spontaneous, widely patent, phasic, with no intraluminal echogenicity noted. Right subclavian vein is spontaneous, widely patent, phasic, with no intraluminal echogenicity noted. Right Lower Arm Right radial vein is compressible. Right ulnar vein is compressible. Right Arm Right axillary vein is spontaneous, patent, phasic, competent, compressible and demonstrates augmentation. Right brachial vein is compressible. Right cephalic vein is compressible. Right basilic vein is compressible. Large hematoma noted in the right bicep area. Patient Safety Prelim to [employer]. Interpretation Summary No evidence for acute deep venous thrombosis[right] upper extremity with patent and compressible cephalic and basilic veins. Complex solid/cystic lesion right biceps area--clinical correlation required. Ordering Physician: Shana Alegria Referring Physician: Cari Portillo M.D. Performed By: Myrna Rosa RVT ? 08/22/18 1306 Date ___ Dayron Weldon MD CC: Shana Alegria DO; Cari Portillo DO Date Dictated: 08/22/18 1040 Date Transcribed: 08/22/18 1306 Air Twister Winder: Signed Cari Portillo Start: 2018 End: 2018 Orthopedic Visit Report Comments: See Note; NOTES: [facility] [address] [place] [address] OFFICE VISIT Date of Service: 08/21/18 MR#: [id number] Acct: [id number] Name: WILLA MORROW Jr. Rep #: [id number] : 1960 Provider: Shana Alegria DO Age/Sex: 58/M [place] [facility] Status: Signed Intake Vital Signs08/21/18 Body Mass Index (BMI) 46.3 Intake Visit Reasons: right shoulder Chief Complaint: f/u right shoulder MRI. Left shoulder new problem Allergies codeine Allergy (Verified 08/05/18 13:27) Hives gabapentin [From Neurontin] Allergy (Verified 08/05/18 13:27) Hives Sulfa (Sulfonamide Antibiotics) Allergy (Verified 08/05/18 13:27) Rash BAND AID Allergy (Uncoded 08/05/18 13:34) Rash [facility] Medical History (Updated 08/08/18 @ 10:06 by Shana Alegria DO) Diabetes (Acute) Hay fever (Acute) Seizures (Acute) HTN (hypertension) (Chronic) Social History (Updated 08/21/18 @ 12:44 by Shana Alegria DO) Smoking Status: Never smoker alcohol intake: current alcohol intake frequency: holidays/special occasions only Alcohol type: wine HPI right shoulder: Details: Parts of this documentation were recorded by a scribe, this documentation accurately reflects the service provided and the decisions made by , Shana Alegria, DO 08/21/18 0901. WILLA MORROW is a 58 year old M here today for 2 week post op after right shoulder arthroscopy, rotator cuff repair subacromial decompression/acromioplasty, open subpec biceps tenodesis. Patient is doing well is only taking Advil and states his pain is well controlled with this. Has bruising over biceps. Patients 10 sutures removed this day without concerns. No s/sx of infection noted. Does have a open blister over his bieps to the right of the incision more than likely from the steri-strips irritating his skin. ROS Const Reports system reviewed and no additional complaints, except as docu Eyes Reports system reviewed and no additional complaints, except as docu ENT Reports system reviewed and no additional complaints, except as docu Card Reports system reviewed and no additional complaints, except as docu Resp Reports system reviewed and no additional complaints, except as docu GI Reports system reviewed and no additional complaints, except as docu Reports system reviewed and no additional complaints, except as docu Musc Reports as per HPI Skin/Breast Reports system reviewed and no additional complaints, except as docu Neuro Yes system reviewed and no additional complaints, except as docu Psych Reports system reviewed and no additional complaints, except as docu Endo Reports system reviewed and no additional complaints, except as docu Du/Lymph Reports system reviewed and no additional complaints, except as docu Aller/Immun Reports system reviewed and no additional complaints, except as docu Ortho Exam Right Shoulder Date of Surgery: 08/08/18 suture/avis removed: Yes (10 sutures removed without concern) Skin/Wound: Yes suture/avis removed (10 sutures removed without concern), Yes ecchymosis, No erythema, Yes swelling SHOULDER: No s/sx of infection noted. Has hematoma over his biceps. Assessment AND Plan Problems 1. Orthopedic aftercare Z47.89 Plan Reviewed patient surgical images with patient and explained his tears and repairs with patient. All questions answered. Patient educated that with his irritation under his arm he needs to observe the area over his biceps. Will prescribe Keflex as a precaution to assure patient does not develop cellulitis were he has the skin irritation/hematoma. Patient instructed to monitor for s/sx of infection such had increased pain, redness, and warmth. Patient does have hematoma over his biceps and recommends attempting to drain the hematoma this day. Patient in agreement of plan. discussed if this worsens or has increased pain around arm to go to ER for doppler to ensure not a blood clot. states aware and will follow. patient had immediate relief of pain and swelling after hematoma was partially drained. Follow up in 1 week with [facility] for skin irritation check or sooner if pain, swelling, numbness or associated symptoms, or concerns develop. All questions answered. Patient in agreement of plan. Coding Level of Care Code Global Post Op Diagnoses Orthopedic aftercare Z47.89 08/21/18 1244 <Electronically signed by Shana Alegria DO> Date ___ Shana Alegria DO Cosigner Signature: Date ___ (if applicable) CC: Cari Portillo Start: 08-08-2018 End: 08-08-2018 Operative Report Comments: See Note; NOTES: [facility] Medical Records Department [address] [place] [address] Operative Report 08/08/18 0736 MR#: [id number] Acct: [id number] Name: CRISTHIANWILLA Jr. Rep #: [id number] : 1960 57 From: Shana Alegria DO PCP: Cari Portillo DO Status: REG SDC Y Location: [place] [address] Report of Operation Date of Procedure: 08/08/18 Pre-Operative Diagnosis: right shoulder rotator cuff tear, subacromial impingment/bursitis, Post-Operative Diagnosis: same Surgery/Procedure Performed:: right shoulder arthroscopy, rotator cuff repair subacromial decompression/acromioplasty, open subpec biceps tenodesis Type of Anesthesia:: General Anesthesiologist: Huy Delaney Specimen's removed: biceps tendon Estimated Blood Loss (mL): 25cc Fluids Replaced: 1250cc lr Description of Procedure: Preop note Patient is a 57-year-old male continued right shoulder pain inability to elevate arm above head without continued pain weakness and external rotation. MRI confirms impingement as well as retracted massive rotator cuff tear and some biceps tendinosis. Risks benefits and alternatives surgery discussed with patient. Risks including but not limited to blood loss, blood clot, infection, neurovascular, failure procedure, loss of life loss of limb need for revision surgery. Patient is aware like proceed with right shoulder arthroscopy repair is indicated. Operative note Patient seen and examined preoperative holding area. Right shoulder was marked. Patient brought to the operating placed supine the operating table. Signing, anesthesia, antibiotics were administered. The right arm was prepped and draped usual sterile fashion beachchair positioning custodial through beachchair positioning we did recheck his blood pressure which was stable throughout. We then marked out our bony limits for portal placement. We insufflated the glenohumeral joint from the posterior aspect. Timeout was performed. We then began our diagnostic arthroscopy. We used 11 blade to create our posterior portal. Able to visualize the glenohumeral joint which was intact and there was some synovitis throughout the shoulder. He had no loose bodies in the inferior recess we then created an anterior portal under direct visualization. The subscap was intact. The biceps anchor was stable and had a SLAP lesion in the biceps where it attached proximally there is a labral tear that also extended onto the inferior distalmost aspect of the labrum which was unstable. We then resected the biceps at its insertion and then debrided back to insertion for to decrease any impingement. We able to visualize the rotator cuff tear at this point we then moved to the subacromial space medial lateral portal under direct visualization performed an extensive bursectomy was just an acromioplasty with accommodation of a bur shaver and a an ablator wand. We then debrided the footprint for our rotator cuff repair we used an Arthrex speed bridge system. Please note that we then did a release circumferentially around the rotator cuff to ensure that we had good movement of the rotator cuff it was a crescent style tear that was able to be moved a little bit posterior to anterior and then lateralized. We then placed our to speed bridge anchors medially. We then placed and cut to the speed bridge to be placed actually 4 sutures from the anterior anchor and 4 sutures from the posterior anchor through the cuff using 1 of the sutures at one point for a traction device in order to get better grasp of our tendon for repair. We then actually tied the FiberWire that were in the anterior and posterior suture anchors and then used the tape and placed this down for our lateral row. Please note that we did not cut the FiberWire sutures from the anterior and posterior anchors to use those incorporate those into our lateral is aware well. We had great for footprint coverage at this point. We irrigated the shoulder with copious amounts of sterile saline. The moved to our open biceps tenodesis. We met about a 2-1/2 cm incision just distal to the insertion of the pec. Dissect down tenotomies the level of the biceps sheath which was excised the biceps was then brought out of the joint. We then measured appropriate length and cut the biceps and sent to pathology for further evaluation. We then able to visualize the area that on the humerus for our pec button. We used a ablator burner to burn any periosteum we then drilled unicortical he and placed our and then whipstitched the end of the remaining biceps tendon placed this through the pec button this pec button that was then inserted and unicortical he flipped inside the humeral shaft and then we did oversew with a free needle of the tendon down to the periosteum as well. The incision was irrigated with copious muscle sterile saline. It was closed with Vicryl and running 4-0 Monocryl and the portals for our rotator cuff repair as well as our working portals were closed with interrupted nylon stitches. Sterile dressings were applied. Patient tolerated procedure well no comp occasions transferred to recovery room in stable condition. Postoperative Nonweightbearing right upper extremity May use hand as much as tolerated not active no active flexion of the elbow or shoulder Sling at all times (shower Pictures given to Follow-up in 2 weeks Hospital has prescriptions This note was generated with [employer] dictation software. It may contain incorrect words, spelling, and punctuation that were not noted in checking the note before signing. Grafts/Implants Used: Arthrex speed bridge, pec button Arthrex 08/08/18 1007 <Electronically signed by Shana Alegria DO> Date ___ Shana Alegria DO CC: Shana Alegria DO; Cari Portillo DO Signed Cari Portillo Start: 08-08-2018 End: 08-08-2018 Discharge Instruction Comments: See Note; NOTES: [facility] Medical Records Department [address] [place] [address] Instructions for Home/Discharge Instructions 08/08/18 0735 MR#: [id number] Acct: [id number] Name: CRISTHIANWILLA Jr. Rep #: [id number] : 1960 57 From: Shana Alegria DO PCP: Cari Portillo DO Status: REG VAC Discharge Diet: No Restrictions - remove dressings pod 4 and apply bandaids to incision sites, call with concerns, follow up in 2 weeks, sling at all times unless in shower, no active motion of shoulder or elbow Discharge Activity: May Not Drive May shower in (days): 1 Ice area for (Minutes): 20 - Every hour while awake. Weight Bearing Status: Weight bearing as tolerated Keep extremity elevated above heart level: Operative Extremity Call your doctor if your incision/area has: Continuous Slow Oozing, Sudden Increased Bleeding, Increased Pain/ Swelling, Increased Redness, Foul Smelling Discharge Call your doctor if you observe: Fever of 101 or Higher, Coldness, Increased Pain, Numbness or Tingling, Change in Color, Calf discomfort Allergies/Adverse Reactions: Allergies codeine Allergy (Verified 08/05/18 13:27) Hives gabapentin [From Neurontin] Allergy (Verified 08/05/18 13:27) Hives Sulfa (Sulfonamide Antibiotics) Allergy (Verified 08/05/18 13:27) Rash BAND AID Allergy (Uncoded 08/05/18 13:34) Rash Medications to take at Discharge Duloxetine Hcl [Cymbalta] 60 mg PO DAILY 04/20/16 Levocetirizine Dihydrochloride [Xyzal] 5 mg PO DAILY 04/20/16 Pantoprazole Sodium [Protonix] 40 mg PO DAILY 04/20/16 cholecalciferol (vitamin D3) 1,000 unit capsule 2,000 unit PO DAILY 03/29/17 aspirin 81 mg tablet,delayed release 81 mg PO DAILY 06/04/18 meloxicam 15 mg tablet 15 mg PO DAILY #30 tab 06/04/18 Diphenhydramine HCl [Simply Sleep] 50 mg PO QHS 08/05/18 Losartan Potassium [Cozaar] 50 mg PO DAILY 08/05/18 Hydrocodone Bitart/Apap 5-325 [Tolleson 5MG-325MG] 1 - 2 tablet PO Q6H PRN PRN 5 Days #40 tablet 08/08/18 Zolpidem Tartrate [Ambien (Generic)] 5 mg PO QHS PRN PRN #14 tablet 08/08/18 The following prescriptions were given: Hydrocodone Bitart/Apap 5-325 [Tolleson 5MG-325MG] 1 - 2 tablet PO Q6H PRN PRN 5 Days #40 tablet PRN Reason: Pain Zolpidem Tartrate [Ambien (Generic)] 5 mg PO QHS PRN PRN #14 tablet PRN Reason: Insomnia Orders to be completed after discharge: Hemoglobin A1c Time Frame: 08/05/18, Location: Laboratory Basic Metabolic Profile (BMP) Time Frame: 08/05/18, Location: Laboratory CBC-Complete Blood Cnt No Diff Time Frame: 08/05/18, Location: Laboratory Primary Care Physician: Cari Portillo DO [Primary Care Provider] - Test Results: Test results from this visit will be discussed in further detail at your follow-up appointment, if applicable. Please Follow Up With: Shana Alegria DO - [phone] 08/08/18 0958 <Electronically signed by Shana Alegria DO> Date ___ Shana Alegria DO CC: Cari Portillo DO Signed Cari Portillo Start: 08-08-2018 End: 08-08-2018 History and Physical Exam Comments: See Note; NOTES: [facility] Medical Records Department [address] [place] [address] History and Physical 07/31/18 0938 MR#: [id number] Acct: [id number] Name: WILLA MORROW Jr. Rep #: [id number] : 1960 57 From: Shana Alegria DO PCP: Cari Portillo DO Status: REG [facility] [place] Location: [place] [address] I have re-examined the patient. There are no clinical changes since date of exam. Intake Intake Visit Reasons: RIGHT SHOULDER Allergies codeine Allergy (Verified 06/04/18 08:09) Hives gabapentin [From Neurontin] Allergy (Verified 06/04/18 08:09) Hives Sulfa (Sulfonamide Antibiotics) Allergy (Verified 06/04/18 08:09) Rash Medications Duloxetine Hcl [Cymbalta] 60 mg PO DAILY 04/20/16 [History Confirmed 06/04/18] Irbesartan [Avapro] 150 mg PO DAILY 04/20/16 [History Confirmed 06/04/18] Levocetirizine Dihydrochloride [Xyzal] 5 mg PO DAILY 04/20/16 [History Confirmed 06/04/18] Pantoprazole Sodium [Protonix] 40 mg PO DAILY 04/20/16 [History Confirmed 06/04/18] cholecalciferol (vitamin D3) 1,000 unit capsule 1,000 unit PO ONCE 03/29/17 [History Confirmed 06/04/18] aspirin 81 mg tablet,delayed release 81 mg PO DAILY 06/04/18 [History Confirmed 06/04/18] meloxicam 15 mg tablet 15 mg PO DAILY #30 tab 06/04/18 [Rx Confirmed 06/04/18] PFSH Medical History Diabetes (Acute) Hay fever (Acute) Seizures (Acute) HTN (hypertension) (Chronic) Social History Smoking Status: Never smoker alcohol intake: current alcohol intake frequency: holidays/special occasions only Alcohol type: wine HPI RIGHT SHOULDER: Surgical H AND P: Yes Details: Parts of this documentation were recorded by a scribe, this documentation accurately reflects the service provided and the decisions made by me, Shana Alegria DO 07/31/18 0854. WILLA MORROW is a 57 year old M here today for right shoulder today. Here to disscus surgery with Dr. Haines surgery was moved. Denies any changes with pain or mobility. Patient has had MRI of the right shoulder that showed a full thickness tear of RTC. Denies numbness, tingling or other associated symptoms. Had MRI completed of left shoulder this morning and results are in chart. ROS Const Reports system reviewed and no additional complaints, except as docu Eyes Reports system reviewed and no additional complaints, except as docu ENT Reports system reviewed and no additional complaints, except as docu Card Reports system reviewed and no additional complaints, except as docu Resp Reports system reviewed and no additional complaints, except as docu GI Reports system reviewed and no additional complaints, except as docu Reports system reviewed and no additional complaints, except as docu Musc Reports as per HPI Skin/Breast Reports system reviewed and no additional complaints, except as docu Neuro Yes system reviewed and no additional complaints, except as docu Psych Reports system reviewed and no additional complaints, except as docu Endo Reports system reviewed and no additional complaints, except as docu Du/Lymph Reports system reviewed and no additional complaints, except as docu Aller/Immun Reports system reviewed and no additional complaints, except as docu Ortho Exam Right Shoulder Testing: Positive AROM-Forward Elevation 0-180 and empty can SHOULDER: bilat ER weakness, ttp tricep, Left Shoulder Testing: Yes AROM-Forward Elevation 0-180, Yes empty can Internal Rotation: Hip Assessment AND Plan Problems 1. Complete tear of right rotator cuff, unspecified whether traumatic M75.121 2. Complete tear of left rotator cuff, unspecified whether traumatic M75.122 Plan Personally reviewed the recent MRI and explained that in order to repair the massive tear he needs and SCR. Explained the surgical procedure, the risk of re-tear or the need for RTSA. He also has RTC of the left shoulder. The concerns are stiffness of the right shoulder when he has great rom today, and he may not get full rom after and continue to have weakness. He alternative treatment option is a debridement and use steroid for pain control to allow him to keep his rom. Patient elects to have surgery with scr if indicated, PT 6wks after surgery and he can return to light duty in 3wks post op Reviewed the pre-operative plans with the patient. Risks and benefits of the procedure were fully explained, including but not limited to infection, neurovascular injury, continued pain, arthritis, stiffness, need for further surgery, re-injury, DVT, PE, general risks of anesthesia, and loss of limb or life. The patient understands all the risks and does wish to proceed with written consent. Follow up post op or sooner if pain, swelling, numbness or associated symptoms, or concerns develop. All questions answered. Patient in agreement of plan. Coding Level of Care Code Off vis,est,level 4 Diagnoses Complete tear of right rotator cuff, unspecified whether traumatic M75.121 Laterality: right Rotator cuff tear extent: complete Rotator cuff tear trauma status: unspecified whether traumatic Complete tear of left rotator cuff, unspecified whether traumatic M75.122 Rotator cuff tear extent: complete Rotator cuff tear trauma status: unspecified whether traumatic 07/31/18 1148 <Electronically signed by Shana Alegria DO> Date ___ Shana Alegria DO 08/08/18 0722 <Electronically signed by Shana Alegria DO> Date: Time: ___ Shana Alegria DO CC: Shana Alegria DO; Cari Portillo DO Date Dictated: 07/31/18 0938 Date Transcribed: 08/07/18 1320 Air Twister Winder: Signed Cari Portillo Start: 07-31-2018 End: 07-31-2018 Orthopedic Visit Report Comments: See Note; NOTES: [facility] [address] [place] [address] OFFICE VISIT Date of Service: 07/31/18 MR#: [id number] Acct: [id number] Name: WILLA MORROW Jr. Rep #: [id number] : 1960 Provider: Shana Alegria DO Age/Sex: 57/M Location[place] [facility] Status: Signed Intake Intake Visit Reasons: RIGHT SHOULDER Allergies codeine Allergy (Verified 06/04/18 08:09) Hives gabapentin [From Neurontin] Allergy (Verified 06/04/18 08:09) Hives Sulfa (Sulfonamide Antibiotics) Allergy (Verified 06/04/18 08:09) Rash Medications Duloxetine Hcl [Cymbalta] 60 mg PO DAILY 04/20/16 [History Confirmed 06/04/18] Irbesartan [Avapro] 150 mg PO DAILY 04/20/16 [History Confirmed 06/04/18] Levocetirizine Dihydrochloride [Xyzal] 5 mg PO DAILY 04/20/16 [History Confirmed 06/04/18] Pantoprazole Sodium [Protonix] 40 mg PO DAILY 04/20/16 [History Confirmed 06/04/18] cholecalciferol (vitamin D3) 1,000 unit capsule 1,000 unit PO ONCE 03/29/17 [History Confirmed 06/04/18] aspirin 81 mg tablet,delayed release 81 mg PO DAILY 06/04/18 [History Confirmed 06/04/18] meloxicam 15 mg tablet 15 mg PO DAILY #30 tab 06/04/18 [Rx Confirmed 06/04/18] PFSH Medical History Diabetes (Acute) Hay fever (Acute) Seizures (Acute) HTN (hypertension) (Chronic) Social History Smoking Status: Never smoker alcohol intake: current alcohol intake frequency: holidays/special occasions only Alcohol type: wine HPI RIGHT SHOULDER: Surgical H AND P: Yes Details: Parts of this documentation were recorded by a scribe, this documentation accurately reflects the service provided and the decisions made by me, Shana Alegria, DO 07/31/18 0840. WILLA MORROW is a 57 year old M here today for right shoulder today. Here to disscus surgery with Dr. Haines surgery was moved. Denies any changes with pain or mobility. Patient has had MRI of the right shoulder that showed a full thickness tear of RTC. Denies numbness, tingling or other associated symptoms. Had MRI completed of left shoulder this morning and results are in chart. ROS Const Reports system reviewed and no additional complaints, except as docu Eyes Reports system reviewed and no additional complaints, except as docu ENT Reports system reviewed and no additional complaints, except as docu Card Reports system reviewed and no additional complaints, except as docu Resp Reports system reviewed and no additional complaints, except as docu GI Reports system reviewed and no additional complaints, except as docu Reports system reviewed and no additional complaints, except as docu Musc Reports as per HPI Skin/Breast Reports system reviewed and no additional complaints, except as docu Neuro Yes system reviewed and no additional complaints, except as docu Psych Reports system reviewed and no additional complaints, except as docu Endo Reports system reviewed and no additional complaints, except as docu Du/Lymph Reports system reviewed and no additional complaints, except as docu Aller/Immun Reports system reviewed and no additional complaints, except as docu Ortho Exam Right Shoulder Testing: Positive AROM-Forward Elevation 0-180 and empty can SHOULDER: bilat ER weakness, ttp tricep, Left Shoulder Testing: Yes AROM-Forward Elevation 0-180, Yes empty can Internal Rotation: Hip Assessment AND Plan Problems 1. Complete tear of right rotator cuff, unspecified whether traumatic M75.121 2. Complete tear of left rotator cuff, unspecified whether traumatic M75.122 Plan Personally reviewed the recent MRI and explained that in order to repair the massive tear he needs and SCR. Explained the surgical procedure, the risk of re-tear or the need for RTSA. He also has RTC of the left shoulder. The concerns are stiffness of the right shoulder when he has great rom today, and he may not get full rom after and continue to have weakness. He alternative treatment option is a debridement and use steroid for pain control to allow him to keep his rom. Patient elects to have surgery with scr if indicated, PT 6wks after surgery and he can return to light duty in 3wks post op Reviewed the pre-operative plans with the patient. Risks and benefits of the procedure were fully explained, including but not limited to infection, neurovascular injury, continued pain, arthritis, stiffness, need for further surgery, re-injury, DVT, PE, general risks of anesthesia, and loss of limb or life. The patient understands all the risks and does wish to proceed with written consent. Follow up post op or sooner if pain, swelling, numbness or associated symptoms, or concerns develop. All questions answered. Patient in agreement of plan. Coding Level of Care Code Off vis,est,level 4 Diagnoses Complete tear of right rotator cuff, unspecified whether traumatic M75.121 Laterality: right Rotator cuff tear extent: complete Rotator cuff tear trauma status: unspecified whether traumatic Complete tear of left rotator cuff, unspecified whether traumatic M75.122 Rotator cuff tear extent: complete Rotator cuff tear trauma status: unspecified whether traumatic 07/31/18 1148 <Electronically signed by Shana Alegria DO> Date ___ Amitaalicia Alegria DO [facility] Signature: Date ___ (if applicable) CC: Cari Sanket Start: 07-31-2018 End: 07-31-2018 Upper Ext Joint Only(Routine) Comments: See Note; NOTES: [facility] Imaging Services [address] [place] [address] Upper Ext Joint Only(Routine) MR#: [id number] Acct: [id number] Name: CRISTHIANWILLA Jr. Rep #: [id number] : 1960 M 57 From: Jeromy Olvera MD PCP: Cari Portillo DO Status: REG CLI Study: Upper Ext Joint Only(Routine) Date of Exam: 07/31/18 Exam# [id number] Ordering Dr: Davis Hagan DO STUDY: MRI LEFT SHOULDER REASON FOR EXAM: Pain and limited range of motion, lifting injury 1 week ago. TECHNIQUE: Standardized fat and water weighted pulse sequences were obtained in all 3 orthogonal planes. COMPARISON: Radiographs 10/20/2014. ___ FINDINGS: There is a full-thickness tear of the supraspinatus and infraspinatus tendons retracted approximately 2.9 cm (T2 coronal images 8-17). There is mild subscapularis tendinosis (proton density axial images 10-12) without discrete tendon tear. Normal teres minor tendon. Normal supraspinatus muscle. There is mild edema in the distal infraspinatus muscle. Normal subscapularis muscle. There is edema in the teres minor muscle (T2 coronal image 3). There is a small glenohumeral joint effusion with synovitis in the subscapularis recess (T2 coronal image 20). There is superior migration of the humeral head secondary to the retracted rotator cuff tear. Normal biceps labral complex. Normal intracapsular long biceps tendon. Normal labrum. Normal capsulo- ligamentous complex. There is acromioclavicular arthrosis with mild hypertrophic changes (T2 sagittal image 8). There is a Type II morphology (curved), with a neutral orientation. There is a small volume of subacromial-subdeltoid bursal fluid. There is thickening of the coracoacromial ligament (T2 sagittal image 11). There is a low-grade strain of the lateral deltoid muscle (T2 coronal images 18-20). Normal trapezius muscle. ___ MRI/Upper Ext Joint Only(Routine) IMPRESSION: Full-thickness tear of the supraspinatus and infraspinatus tendons. Mild subscapularis tendinosis. Acromioclavicular arthrosis. Thickening of the coracoacromial ligament. Strains of the teres minor and lateral deltoid muscles. Glenohumeral joint fluid communicating with the subacromial-subdeltoid bursa. Electronically Signed: Jeromy Olvera MD at 8:21 EDT Tel , Service support , CC: Davis Hagan DO; Cari Portillo DO Air Twister Winder: Signed Cari Portillo Start: 07-23-2018 End: 07-23-2018 Orthopedic Visit Report Comments: See Note; NOTES: [facility] [address] [place] [address] OFFICE VISIT Date of Service: 07/23/18 MR#: [id number] Acct: [id number] Name: WILLA MORROW Jr. Rep #: [id number] : 1960 Provider: Davis Hagan DO Age/Sex: 57/M [place] [facility] Status: Signed Intake Intake Visit Reasons: Cervical/Rt arm Allergies codeine Allergy (Verified 06/04/18 08:09) Hives gabapentin [From Neurontin] Allergy (Verified 06/04/18 08:09) Hives Sulfa (Sulfonamide Antibiotics) Allergy (Verified 06/04/18 08:09) Rash Medications Duloxetine Hcl [Cymbalta] 60 mg PO DAILY 04/20/16 [History Confirmed 06/04/18] Irbesartan [Avapro] 150 mg PO DAILY 04/20/16 [History Confirmed 06/04/18] Levocetirizine Dihydrochloride [Xyzal] 5 mg PO DAILY 04/20/16 [History Confirmed 06/04/18] Pantoprazole Sodium [Protonix] 40 mg PO DAILY 04/20/16 [History Confirmed 06/04/18] cholecalciferol (vitamin D3) 1,000 unit capsule 1,000 unit PO ONCE 03/29/17 [History Confirmed 06/04/18] aspirin 81 mg tablet,delayed release 81 mg PO DAILY 06/04/18 [History Confirmed 06/04/18] meloxicam 15 mg tablet 15 mg PO DAILY #30 tab 06/04/18 [Rx Confirmed 06/04/18] PFSH Medical History Diabetes (Acute) Hay fever (Acute) Seizures (Acute) HTN (hypertension) (Chronic) Social History Smoking Status: Never smoker alcohol intake: current alcohol intake frequency: holidays/special occasions only Alcohol type: wine HPI Cervical/Rt arm: Chief Complaint: f/u right shoulder MRI. Left shoulder new problem Surgical H AND P: Yes Details: Parts of this documentation were recorded by a scribe, this documentation accurately reflects the service provided and the decisions made by , Davis Hagan DO 07/23/18 0757. ED CRISTHIAN is a 57 year old M here today for F/U on right shoulder pain. Patient had an MRI of his right shoulder and cervical spine. Patient does state he had an injury to his left shoulder on 07/18/18 when he was lifting mulch. Patient states he heard a pop and had instant pain of his shoulder and limited ROM. Ortho Exam Right Shoulder Skin/Wound: No ecchymosis, No erythema, No swelling SHOULDER: Right Shoulder Skin/Wound: No ecchymosis, No erythema, No swelling Testing: Positive Hawkin's, Speed's, TTP Biceps (mild), AROM-Forward Elevation 0-180, AROM-External Rotation at 90 0-60, AROM-External Rotation at side 0-60 (40), PROM-Forward Elevation 0-180 and IR @ 90 0-70 SHOULDER: Good strength 4/5 with resisted ER with pain. Normal light touch. Radial pulse 2/4 b/l decreased biceps and brachioradialis reflex. Left Shoulder Date of injury: 07/18/18 Skin/Wound: No ecchymosis, No erythema, No swelling SHOULDER: 4/5 forward flexion 4/5 abduction 4/5 external rotation decreased rOM Supplemental Info 07/19/2018 MRI right shoulder: Massive supraspinatus infraspinatus rotator cuff tear with retraction rotator cuff tendinosis with muscle belly atrophy, tearing of biceps tendon long Assessment AND Plan Problems 1. Complete tear of right rotator cuff, unspecified whether traumatic M75.121 2. 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 Tear of right biceps muscle, subsequent encounter S46.211D 4. Injury of left rotator cuff, initial encounter S46.002A Plan Patient educated that he has a large full thickness tear of his right rotator cuff this is likely chronic as he did not have any acute injury there is atrophy of muscle belly and degenerative changes of tendon and he has excellent strength in the right shoulder which demonstrates compensation leading us to believe that this is been torn for quite some time. He has however failed conservative therapy and wishes to undergo surgical intervention. Risks benefits and alternatives to surgery were reviewed including risk of inability to repair secondary to chronicity of tear continued pain. options are an arthroscopy vs an open surgery to try to repair the RTC, and biceps tenotomy and subacromial decompression as there is anterior acromial spurring. . Educated that he also has spurring under his cuff which may have caused the tear. He also has a biceps tear. Educated that we will remove the spurring. Denies any infections. Denies any use of blood thinners, denies any heart problems. Reviewed the pre-operative plans with the patient. Risks and benefits of the procedure were fully explained, including but not limited to infection, neurovascular injury, continued pain, arthritis, stiffness, need for further surgery, re-injury, DVT, PE, general risks of anesthesia, and loss of limb or life. The patient understands all the risks and does wish to proceed with written consent. Patients surgery has been scheduled for 07/31/18. Since patient has popping of left shoulder and his unable to lift the arm, and has weakness after injury we will order MRI for left shoulder this day. Also educated that some of his pain may be coming from his neck because he has foraminal stenosis. Follow up 2 weeks post op or sooner if pain, swelling, numbness or associated symptoms, or concerns develop. All questions answered. Patient in agreement of plan. Orders Orders: Coding Level of Care Code Off vis,est,level 4 Diagnoses Complete tear of right rotator cuff, unspecified whether traumatic M75.121 Laterality: right Rotator cuff tear trauma status: unspecified whether traumatic Foraminal stenosis of cervical region M99.81 Tear of right biceps muscle, subsequent encounter S46.211D Encounter type: subsequent encounter Injury of left rotator cuff, initial encounter S46.002A Encounter type: initial encounter 07/23/181657 <Electronically signed by Davis Hagan DO> Date ___ Davis Hagan DO Cosigner Signature: Date ___ (if applicable) CC: Cari Power Start: 07-19-2018 End: 07-24-2018 Spine Cervical (Routine) Comments: See Note; NOTES: [facility] Imaging Services [address] [place] [address] Spine Cervical (Routine) MR#: [id number] Acct: [id number] Name: WILLA MORROW Jr. Rep #: [id number] : 1960 M 57 From: Major Schuster DO PCP: Cari Portillo DO [facility] Study: Spine Cervical (Routine) Date of Exam: 07/19/18 Exam# [id number] Ordering Dr: Davis Hagan DO ADDENDUM by Major Schuster DO on 07/24/18 at 2033 ADDENDUM ADDENDUM: Similar appearance of findings when compared to 07 Jul 2017 cervical spine. Electronically Signed: Major Schuster DO at 20:33 EDT , Service support , 07/24/182032 Date cc: Davis Hagan DO; Cari Portillo DO * Signed ADDENDUM by Major Schuster DO on 07/24/18 at 2032 MRI/Spine Cervical (Routine) 07/24/182039 Date cc: Davis Hagan DO; Cari Portillo DO * Signed STUDY: MRI CERVICAL SPINE WITHOUT CONTRAST REASON FOR EXAM: Male, 57 years old. Neck pain and bilateral arm pain. TECHNIQUE: Standardized fat and water weighted pulse sequences were obtained in the sagittal and axial planes. COMPARISON: None ___ FINDINGS: Normal foramen magnum and brainstem-cervical cord junction. Normal craniovertebral junction. Normal anterior atlantoaxial articulation. Normal odontoid process. Normal cervical lordosis. Normal vertebral bodies and posterior osseous elements. C2-3: Normal endplates. Normal disc height, signal and morphology. Normal central canal and intervertebral neural foramina. C3-4: Disc desiccation is present with minimal degenerative anterolisthesis. There is left uncovertebral joint arthropathy and facet arthropathy resulting in moderate left foraminal narrowing. C4-5: Normal endplates. Normal disc height, signal and morphology. Normal central canal and intervertebral neural foramina. C5-6: With no significant spinal canal narrowing or foraminal narrowing. C6-7: Posterior endplate degenerative changes and decreased disc space with no significant spinal canal narrowing or foraminal narrowing. C7-T1: Disc desiccation with mild decreased disc space. No significant spinal canal narrowing or foraminal narrowing. Normal cervical cord. Normal visualized soft tissue structures. ___ MRI/Spine Cervical (Routine) IMPRESSION: Mild disc degenerative changes as above with noted C3-4 left moderate foraminal narrowing, clinically correlate for exiting left C3-C4 nerve root radiculopathy. Electronically Signed: Major Schuster DO at 11:37 EDT , Service support , CC: Davis Hagan DO; Cari Portillo DO Air Twister Winder: Signed Cari Portillo Start: 07-19-2018 End: 07-20-2018 Upper Ext Joint Only(Routine) Comments: See Note; NOTES: [facility] Imaging Services [address] [place] [address] Upper Ext Joint Only(Routine) MR#: [id number] Acct: [id number] Name: WILLA MORROW Jr. Rep #: [id number] : 1960 M 57 From: Farrukh Gambino DO PCP: Cari Portillo DO Status: REG CLI Study: Upper Ext Joint Only(Routine) Date of Exam: 07/19/18 Exam# [id number] Ordering Dr: Davis Hagan DO STUDY: MRI RIGHT SHOULDER REASON FOR EXAM: Male, 57 years old. Right shoulder pain. Decreased range of motion. TECHNIQUE: Standardized fat and water weighted pulse sequences were obtained in all 3 orthogonal planes. COMPARISON: X-ray dated April 09, 2018. ___ FINDINGS: Full-thickness massively retracted rotator cuff tear involving the supraspinatus and infraspinatus tendons. Tendons retracted to the level of the acromioclavicular joint. Moderate supraspinatus and infraspinatus tendinosis. Mild subscapularis tendinosis. Normal teres minor tendon. Moderate supraspinatus and infraspinatus muscle atrophy (sagittal image 1 series 7). Remainder of the rotator cuff muscles unremarkable. Mild intracapsular long biceps tendinosis. Biceps labral anchor intact. Labrum intact. Capsular ligaments intact with mild thickening. Fluid at the rotator cuff interval. Mild glenohumeral articular cartilage loss. Moderate acromioclavicular joint arthrosis. Narrowing of the acromiohumeral interval. No acute fracture, dislocation or osseous destruction. Moderate volume glenohumeral joint effusion with fluid extending through tear into the subacromial subdeltoid bursa. Intact coracohumeral and coracoacromial ligaments. Normal quadrilateral space. Normal axillary space. Normal deltoid muscle. Normal trapezius muscle. ___ MRI/Upper Ext Joint Only(Routine) IMPRESSION: Full-thickness massively retracted supraspinatus and infraspinatus tendon tears Rotator cuff tendinosis with supraspinatus/infraspinatus muscle atrophy Mild intracapsular long biceps tendinosis without tear Mild capsular thickening/adhesive changes Glenohumeral and AC joint arthrosis with anterior impingement Joint effusion extending through tear into the subacromial subdeltoid bursa Electronically Signed: Farrukh Gambino DO at 19:17 EDT Tel , Service support , CC: Davis Hagan DO; Cari Portillo DO Air Twister Winder: Signed Cari Portillo Start: 07-16-2018 End: 07-16-2018 Inital Evaluation (1) - PT Comments: See Note; NOTES: [facility] [address] [place] [address]. [address] [place] [address] / REHABILITATION SERVICES INITIAL EVALUATION MR#: [id number] Acct: [id number] Name: WILLA MORROW Jr. Rep #: [id number] : 1960 57 From: Farrukh Mcleod DPT, OCS, CSCS Referring Dr.: Status: REG RCR Insurance: [facility] SELF PAY INSURANCE Patient's Visit Information ED Cristian MORROW Jr. is a 57 year old M referred to Physical Therapy by Davis Hagan with a diagnosis of triceps tendonitis. Date of Evaluation: 06/18/18 Physical Therapist: Farrukh Mcleod, JESSET, OCS, CSCS - Visit Plan Frequency: 2-3x /Week Duration: 6 Weeks Plan: EVAL FOR CERV/RADICULOPATHY NEXT WEEK. 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 Something with his R arm. Dr Portillo did x-ray and showed arthritis and shot cortizone and did not help and sent him to Dr Carcamo. He said that it was tricep tendonitis. But he feels that there is a divot in his R tricep area. He can pcik up something with his fingers towards the ceiling and has trouble with picking up an object with his fingers pointed downward.... pain and weakness. He has been using 2 arms and not he has messed up his shoulder as well. When it first happended it hurt to get to sleep etc and then about 2 weeks ago he was frying up some sausage... and pulled arm back quick and his anterior chest wall was stretched and they are starting to come back. It hurts when he sleeps cause its hard to sleep on his sides (especially on the R). He is R handed. He reports no surveillance inspector strength issues. He has no N AND T. Occ he will get some radiating symptoms to the forearm on the R but its only occ. He has had a h/o of neck issues and C5 and C7 but years ago Dr leach that he would not do anything unless pressing on spinal cord. - Pain R tricep pain Pain Intensity (Out of 10): 10 Comment: 20/10 with lifting weight. L shoulder pain Pain Intensity (Out of 10): 10 R SH Pain Intensity (Out of 10): 10 R bicep Pain Intensity (Out of 10): 10 - Objective Pt is R handed R 85# and L 80#. Full UE AROM. R shld MMT: Flex 4-/5 and L 4+/5, R 4-/5 and L 4/5, ER R 3-/5 and L 4/5, B IR 4/5, bicep B 4/5, tricep B 4/5. Full PROM into flexion, abd, ER and IR on the R. Palpation: small dip in tricep on the R posterior shoulder..... 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 Goal Time Frame: 4-6 Weeks - Rehabilitation Potential Rehabilitation Potential: Good - Anticipated Interventions Patient/Client Instruction: Educate patient on: Condition, Plan of Care For the Purpose of:: To improve nutrient delivery to tissue, To improve muscle performance and motor function, To increase tolerance to activity/condition/position, To improve performance and independence with ADL's, To decrease level of supervision to perform tasks, To improve ability of physical actions for home/community/work/leisure, To improve health of tissue Therapeutic Exercise to Include: Strength training, Active ROM, Scapular Strength/Stabilization For the Purpose of:: To decrease pain, To improve nutrient delivery to tissue, To improve muscle performance and motor function, To improve ability to perform ADL's, To increase tolerance to activity/condition/position, To improve ability of physical actions for home/community/work/leisure IF ES: Yes Cryotherapy (ice pack, ice massage): Yes Thermo therapy (hot pack): Yes Ultrasound (thermal/non thermal): Yes For the Purpose of:: To decrease pain, To decrease swelling/inflammation, To improve nutrient delivery to tissue Thank you for the opportunity to evaluate your patient. For Medicare and Medicare HMO plans, please review the plan of care and approve it. It will need to be FAXED BACK to us at [phone] for Medicare purposes. For Medicare only, by signing this I certify the plan of care. Please let me know if there are questions or concerns regarding this plan of care. Physician Signature: Date: <Electronically signed by Farrukh Mcleod DPT, OCS, CSCS> 07/16/18 0733 CC: Davis Hagan DO; Cari Portillo DO EBG Signed Cari Portillo Start: 07-07-2018 End: 07-07-2018 Orthopedic Visit Report Comments: See Note; NOTES: [facility] [address] [place] [address] [address] [place] [address] OFFICE VISIT Date of Service: 07/07/18 MR#: [id number] Acct: [id number] Name: CRISTHIANWILLA Jr. Rep #: [id number] : 1960 Provider: Davis Hagan DO Age/Sex: 57/M [place] [facility] Status: Signed Intake Vital Signs07/07/18 Body Mass Index (BMI) 41.8 Intake Visit Reasons: DID PT FOR SHOULDER NOT BETTER Allergies codeine Allergy (Verified 06/04/18 08:09) Hives gabapentin [From Neurontin] Allergy (Verified 06/04/18 08:09) Hives Sulfa (Sulfonamide Antibiotics) Allergy (Verified 06/04/18 08:09) Rash Medications Duloxetine Hcl [Cymbalta] 60 mg PO DAILY 04/20/16 [History Confirmed 06/04/18] Irbesartan [Avapro] 150 mg PO DAILY 04/20/16 [History Confirmed 06/04/18] Levocetirizine Dihydrochloride [Xyzal] 5 mg PO DAILY 04/20/16 [History Confirmed 06/04/18] Pantoprazole Sodium [Protonix] 40 mg PO DAILY 04/20/16 [History Confirmed 06/04/18] cholecalciferol (vitamin D3) 1,000 unit capsule 1,000 unit PO ONCE 03/29/17 [History Confirmed 06/04/18] aspirin 81 mg tablet,delayed release 81 mg PO DAILY 06/04/18 [History Confirmed 06/04/18] meloxicam 15 mg tablet 15 mg PO DAILY #30 tab 06/04/18 [Rx Confirmed 06/04/18] PFSH Medical History Diabetes (Acute) Hay fever (Acute) Seizures (Acute) HTN (hypertension) (Chronic) Social History Smoking Status: Never smoker alcohol intake: current alcohol intake frequency: holidays/special occasions only Alcohol type: wine HPI DID PT FOR SHOULDER NOT BETTER: Details: Parts of this documentation were recorded by a scribe, this documentation accurately reflects the service provided and the decisions made by me, Davis Hagan, 07/07/18 0802. WILLA MORROW is a 57 year old M here today for F/U after 3 sessions of PT and states that his pain is not any better. Patient states his pain is in his right triceps still but is now having anterior shoulder pain and pain with lifting anything above his shoulders he is also now having increased pain radiating all the way down his arms bilaterally with numbness and tingling. Recall he has seen pain management in the past for injections however this is been years ago Any lifting of his right shoulder causes him pain. Patient is having pain down his BL arms with numbness/tingling. Patient reports that he has decrease in strength in both. Reports having cervical traction in the remote past. ROS Const Reports system reviewed and no additional complaints, except as docu Eyes Reports system reviewed and no additional complaints, except as docu ENT Reports system reviewed and no additional complaints, except as docu Card Reports system reviewed and no additional complaints, except as docu Resp Reports system reviewed and no additional complaints, except as docu GI Reports system reviewed and no additional complaints, except as docu Reports system reviewed and no additional complaints, except as docu Musc Reports system reviewed and no additional complaints, except as docu, Reports as per HPI Skin/Breast Reports system reviewed and no additional complaints, except as docu Neuro Yes system reviewed and no additional complaints, except as docu Psych Reports system reviewed and no additional complaints, except as docu Endo Reports system reviewed and no additional complaints, except as docu Du/Lymph Reports system reviewed and no additional complaints, except as docu Aller/Immun Reports system reviewed and no additional complaints, except as docu Ortho Exam Right Shoulder Skin/Wound: No ecchymosis, No erythema, No swelling Testing: Positive Hawkin's, Speed's, TTP Biceps (mild), AROM-Forward Elevation 0-180, AROM-External Rotation at 90 0-60, AROM-External Rotation at side 0-60 (40), PROM-Forward Elevation 0-180 and IR @ 90 0-70 SHOULDER: Good strength 4/5 with resisted ER with pain. Normal light touch. Radial pulse 2/4 b/l decreased biceps and brachioradialis reflex. Left Shoulder SHOULDER: Has normal sensation. Radial pulse WNL. Supplemental Info 07/07/2018 x-ray cervical spine: Moderate degenerative disc disease and stenosis see 5 to C7 Assessment AND Plan Problems 1. DDD (degenerative disc disease), cervical M50.30 2. Cervical radiculopathy M54.12 3. Rotator cuff syndrome of right shoulder M75.101 Plan X-rays were reviewed of cervical spine. There is no obvious fracture, dislocation, or lucency noted. Educated that he has narrowing of his disc and for him in of his c-spine which are likely causing most of his radiating symptoms into his BL arms. Patient has DDD of C5-7 with radiculopathy. However he does have signs of external rotator cuff irritation and weakness will order right shoulder MRI and cervical spine MRI. Patient educated to continue with PT. Recommended Recommended spinal surgeon consult but patient wishes to wait until we get the results of MRIs. Follow up after MRIs or sooner if pain, swelling, numbness or associated symptoms, or concerns develop. All questions answered. Patient in agreement of plan. Orders Orders: Coding Level of Care Code Off vis,est,level 3 Diagnoses DDD (degenerative disc disease), cervical M50.30 Cervical radiculopathy M54.12 Spinal region: cervical Rotator cuff syndrome of right shoulder M75.101 07/07/18 1642 <Electronically signed by Davis Hagan DO> Date ___ Davis Guzman Signature: Date ___ (if applicable) CC: Cari Power Start: 07-07-2018 End: 07-08-2018 Cerv Spine 4 or 5 Views Comments: See Note; NOTES: [facility] Imaging Services [address] [place] [address] Cerv Spine 4 or 5 Views MR#: [id number] Acct: [id number] Name: WILLA MORROW Jr. Rep #: [id number] : 1960 M 57 From: Dagoberto Mosher MD PCP: Cari Portillo DO Status: REG CLI Study: Cerv Spine 4 or 5 Views Date of Exam: 07/07/18 Exam# [id number] Ordering Dr: Davis Hagan DO STUDY: X-RAY - CERVICAL SPINE REASON FOR EXAM: Male, 57 years old. Shoulder pain. TECHNIQUE: 5 view(s) of the cervical spine were obtained including flexion and extension views.. COMPARISON: None ___ FINDINGS: Normal anterior atlantoaxial articulation. Normal odontoid process. Normal cervical lordosis. There is multi-level endplate spondylosis. There is multi-level degenerative disc disease with multilevel disc space narrowing. Normal visualized intervertebral neuroforamina. Facet joint osteoarthritis. The soft tissue structures are unremarkable. ___ RAD/Cerv Spine 4 or 5 Views IMPRESSION: Spondylosis and disc space narrowing at the C5-C6 and C6-C7 levels. Electronically Signed: Dagoberto Mosher, at 12:49 EDT , Service support , CC: Davis Hagan DO; Cari Portillo DO Air Twister Winder: Signed Cari Portillo Start: 06-24-2018 End: 06-24-2018 Inital Evaluation (1) - PT Comments: See Note; NOTES: [facility] [place] [address] / REHABILITATION SERVICES INITIAL EVALUATION MR#: [id number] Acct: [id number] Name: WILLA MORROW Jr. Rep #: [id number] : 1960 57 From: Myla RUSSELL Referring Dr.: Davis Hagan DO Status: REG RCR Insurance: [facility] SELF PAY INSURANCE Patient's Visit Information WILLA MORROW Jr. is a 57 year old M referred to Physical Therapy by Davis Hagan DO with a diagnosis of triceps tendonitis. 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 Something with his R arm. Dr Portillo did x-ray and showed arthritis and shot cortizone and did not help and sent him to Dr Carcamo. He said that it was tricep tendonitis. But he feels that there is a divot in his R tricep area. He can pcik up something with his fingers towards the ceiling and has trouble with picking up an object with his fingers pointed downward.... pain and weakness. He has been using 2 arms and not he has messed up his shoulder as well. When it first happended it hurt to get to sleep etc and then about 2 weeks ago he was frying up some sausage... and pulled arm back quick and his anterior chest wall was stretched and they are starting to come back. It hurts when he sleeps cause its hard to sleep on his sides (especially on the R). He is R handed. He reports no surveillance inspector strength issues. He has no N AND T. Occ he will get some radiating symptoms to the forearm on the R but its only occ. He has had a h/o of neck issues and C5 and C7 but years ago Dr leach that he would not do anything unless pressing on spinal cord. - Pain R tricep pain Pain Intensity (Out of 10): 5 - Objective Pt is R handed R 85# and L 80#. Full UE AROM. R shld MMT: Flex 4-/5 and L 4+/5, R 4-/5 and L 4/5, ER R 3-/5 and L 4/5, B IR 4/5, bicep B 4/5, tricep B 4/5. Full PROM into flexion, abd, ER and IR on the R. Palpation: small dip in tricep on the R posterior shoulder..... 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 Goal Time Frame: 4-6 Weeks - Rehabilitation Potential Rehabilitation Potential: Good - Anticipated Interventions Patient/Client Instruction: Educate patient on: Condition, Plan of Care For the Purpose of:: To improve nutrient delivery to tissue, To improve muscle performance and motor function, To increase tolerance to activity/condition/position, To improve performance and independence with ADL's, To decrease level of supervision to perform tasks, To improve ability of physical actions for home/community/work/leisure, To improve health of tissue Therapeutic Exercise to Include: Strength training, Active ROM, Scapular Strength/Stabilization For the Purpose of:: To decrease pain, To improve nutrient delivery to tissue, To improve muscle performance and motor function, To improve ability to perform ADL's, To increase tolerance to activity/condition/position, To improve ability of physical actions for home/community/work/leisure IF ES: Yes Cryotherapy (ice pack, ice massage): Yes Thermo therapy (hot pack): Yes Ultrasound (thermal/non thermal): Yes For the Purpose of:: To decrease pain, To decrease swelling/inflammation, To improve nutrient delivery to tissue Thank you for the opportunity to evaluate your patient. For Medicare and Medicare HMO plans, please review the plan of care and approve it. It will need to be FAXED BACK to us at [phone] for Medicare purposes. For Medicare only, by signing this I certify the plan of care. Please let me know if there are questions or concerns regarding this plan of care. Physician Signature: Date: <Electronically signed by Myla Pacheco MPT> 06/24/18 1011 CC: Davis Hagan DO; Cari Portillo DO Signed Cari Portillo Start: 06-04-2018 End: 06-04-2018 Orthopedic Visit Report Comments: See Note; NOTES: [facility] [address] [place] [address] [address] [place] [address] OFFICE VISIT Date of Service: 06/04/18 MR#: [id number] Acct: [id number] Name: CRISTHIANWILLA Jr. Rep #: [id number] : 1960 Provider: Davis Hagan DO Age/Sex: 57/M Location[place] [facility] Status: Signed Intake Vital Signs06/04/18 Body Mass Index (BMI) 41.8 Intake Visit Reasons: RIGHT ARM Is patient in pain?: Yes Allergies codeine Allergy (Verified 06/04/18 08:09) Hives gabapentin [From Neurontin] Allergy (Verified 06/04/18 08:09) Hives Sulfa (Sulfonamide Antibiotics) Allergy (Verified 06/04/18 08:09) Rash Medications Duloxetine Hcl [Cymbalta] 60 mg PO DAILY 04/20/16 [History Confirmed 06/04/18] Irbesartan [Avapro] 150 mg PO DAILY 04/20/16 [History Confirmed 06/04/18] Levocetirizine Dihydrochloride [Xyzal] 5 mg PO DAILY 04/20/16 [History Confirmed 06/04/18] Pantoprazole Sodium [Protonix] 40 mg PO DAILY 04/20/16 [History Confirmed 06/04/18] cholecalciferol (vitamin D3) 1,000 unit capsule 1,000 unit PO ONCE 03/29/17 [History Confirmed 06/04/18] aspirin 81 mg tablet,delayed release 81 mg PO DAILY 06/04/18 [History Confirmed 06/04/18] meloxicam 15 mg tablet 15 mg PO DAILY #30 tab 06/04/18 [Rx Confirmed 06/04/18] [facility] Medical History Diabetes (Acute) Hay fever (Acute) Seizures (Acute) HTN (hypertension) (Chronic) Social History Smoking Status: Never smoker alcohol intake: current alcohol intake frequency: holidays/special occasions only Alcohol type: wine HPI RIGHT ARM: Chief Complaint: right triceps pain Details: Parts of this documentation were recorded by a scribe, this documentation accurately reflects the service provided and the decisions made by me, Davis Hagan DO 06/04/18 0759. WILLA MORROW is a 57 year old M here today for triceps arm pain. He states that he has had pain for about 3 months. Patient denies any known injury. He states that he has pain over his posterior arm.Patient has a knot over triceps . He states that his pain has improved slightly as of recent. He is unable to lift weight above his head. Patient has good shoulder range of motion. Patient states that he had an injection within the past month into the shoulder which was not helpful. he denies any pain about the nicole shoulder or deltoid. He denies any formal physical therapy. He had xrays which are here for review. He denies any MRI. Denies numbness, tingling or other associated symptoms. Patient is right hand dominant. He states that he has chronic cervical spine pain and has seen pain management. PEPE Brown Reports joint pain Ortho Exam Right Shoulder Skin/Wound: No ecchymosis, No erythema, No swelling Testing: Positive AROM-Forward Elevation 0-180, AROM-External Rotation at 90 0-60, AROM-External Rotation at side 0-60 (40), PROM-Forward Elevation 0-180 and IR @ 90 0-70; negative Hawkin's, Neer's, Speed's, TTP Biceps (mild), TTP AC Joint or Drop Arm SHOULDER: ttp triceps. discomfort with resisted abduction of shoulder . full abduction. 5/5 elbow strength, pulling sensation over triceps with resisted elbow extension. intact biceps and triceps tendon. no palpable mass. Supplemental Info 06/04/2018 x-ray right humerus: Oh bony pathology no soft tissue mass 04/09/2018 X-ray right shoulder: No acute findings no significant arthritis Assessment AND Plan Problems 1. Tendinitis of right triceps M77.9 Plan Educated the patient about the anatomy of the arm and etiology of his pain. Spoke with him about a chronic repetitive injury of his triceps. Recommended he take an oral anti-inflammatory and doing formal physical therapy. Patient should followup in 6 weeks if he has no improvement with conservative treatment. it is possible he is having some referred pain from his neck and would consider C-spine images if no improvement. Follow up in 6 weeks as needed or sooner if pain, swelling, numbness or associated symptoms, or concerns develop. All questions answered. Patient in agreement of plan. Orders Orders: Medications New: Coding Level of Care Code Off vis,est,level 4 Diagnoses Tendinitis of right triceps M77.9 06/04/18 1001 <Electronically signed by Davis Hagan DO> Date ___ Davis Hagan DO Cosigner Signature: Date ___ (if applicable) CC: Cari Power Start: 06-04-2018 End: 06-05-2018 Humerus min 2 Views Comments: See Note; NOTES: [facility] Services [address] [place] [address] Humerus min 2 Views MR#: [id number] Acct: [id number] Name: WILLA MORROW Jr. Rep #: [id number] : 1960 M 57 From: Tiera Pena MD PCP: Cari Portillo DO Status: REG CLI Study: Humerus min 2 Views Date of Exam: 06/04/18 Exam# [id number] Ordering Dr: Davis Hagan DO STUDY: X-RAY - RIGHT HUMERUS REASON FOR EXAM: Male, 57 years old. Pain TECHNIQUE: 4 view(s) of the humerus. COMPARISON: None. ___ FINDINGS: Normal visualized humerus. There is no demonstrated fracture or osseous destructive process. There is no demonstrated soft tissue abnormality. ___ RAD/Humerus min 2 Views IMPRESSION: Normal x-ray examination of the humerus. Electronically Signed: Tiera Pena MD at 5:36 EDT , Service support , CC: Davis Hagan DO; Cari Portillo DO Air Twister Winder: Signed Cari Portillo Start: 04-09-2018 End: 04-09-2018 Shoulder min 2 Views Comments: See Note; NOTES: [facility] [address] [place] [address] Shoulder min 2 Views MR#: [id number] Acct: [id number] Name: WILLA MORROW Jr. Rep #: [id number] : 1960 57 From: Rufus Stanton DO PCP: Cari Portillo DO Status: REG CLI Study: Shoulder min 2 Views Date of Exam: 04/09/18 Exam# [id number] Ordering Dr: Cari Portillo DO STUDY: X-RAY - RIGHT SHOULDER REASON FOR EXAM: Male, 57 years old. Anterior shoulder pain radiating down the arm for 2 to 3 days. TECHNIQUE: 4 view(s) of the shoulder. COMPARISON: None. ___ FINDINGS: There is narrowing of the acromiohumeral space. There are mild degenerative changes of the glenohumeral joint. There is degenerative arthrosis of the acromioclavicular joint without inferior osseous spur formation. There is a lateral downward sloping acromion which contributes to the narrowed acromiohumeral space. Normal humeral head and visualized proximal humerus. The soft tissue structures are unremarkable. Normal visualized pulmonary apex. ___ RAD/Shoulder min 2 Views IMPRESSION: Degenerative changes of the right shoulder. Electronically Signed: Rufus Stanton DO at 20:49 EST Tel [phone], Service support , CC: Cari Portillo DO Air Twister Winder: Signed Cari Portillo Work Phone: Start: 03-21-2018 End: 03-22-2018 Chest PA and Lateral Comments: See Note; NOTES: [facility] Imaging Services [address] [place] [address] Chest PA and Lateral MR#: [id number] Acct: [id number] Name: WILLA MORROW Rep #: [id number] : 1960 M 57 From: Rob Casey MD PCP: Cari Portillo DO Status: REG CLI Study: Chest PA and Lateral Date of Exam: 03/21/18 Exam# [id number] Ordering Dr: Markel Dudley MD HISTORY: RASH [...] Service support , CC: Cari Portillo DO; Markel Dudley Air Twister Winder: Signed Kathie Sen Work Phone: Start: 01-18-2018 End: 01-18-2018 Urgent Care Visit Report Comments: See Note; NOTES: [facility] [address] [place] [address] [address] [place], [place] [address] OFFICE VISIT Date of Service: 01/18/18 MR#: [id number] Acct: [id number] Name: WILLA MORROW Rep #: [id number] : 1960 Provider: STARR Payne Age/Sex: 57/M Location[place] [facility] Status: Signed Intake Vital Signs01/18/18 Body Mass [...] mg SC Q7D 03/29/17 [History Confirmed 01/18/18] [facility] Medical History Diabetes (Acute) Hay fever (Acute) [...] Endo Endocrine: Positive for excessive sweating (at nght x 2 nights); no fatigue, cold intolerance, flushing, heat intolerance or increased thirst/drinking Aller/Imm Allergy/Immunologic: No wheezing, itchy eyes (arms last 2 days), food intolerance, seasonal allergy symptoms or hives Du/Lymp Hematologic/Lymphatic: No easy bruising Exam Const General: cooperative, no acute distress Orientation: alert, oriented x3 HENMT Head: normal to inspection, normocephalic Ears: hearing [...] [address] F/u with PCP if symptoms persist Rec: ED if high fever, SOB, Symptoms become acute. Coding Level of Care Code Off vis,est,level 3 Diagnoses URI with cough and congestion J06.9 Bronchitis J40 01/18/18 0835 <Electronically signed by Landy CLEMENTS> Date ___ Landy CLEMENTS Cosigner Signature: Date ___ (if applicable) CC: Cari Portillo Start: 11-01-2017 End: 11-01-2017 PT D/C Summary (1) Comments: See Note; NOTES: [facility] [address] [place] [address]. [address] [place] [address] Fax REHABILITATION SERVICES DISCHARGE SUMMARY MR#: [id number] Acct: [id number] Name: WILLA MORROW R Rep #: [id number] : 1960 57 From: Farrukh Mcleod DPT, OCS, CSCS Referring DrLaina: Cari Portillo DO Status: REG RCR Insurance: [facility] SELF PAY INSURANCE HP - PT D/C [...] please feel free to call me at [phone]. Thank you for the referral of this patient. Sincerely, Farrukh Mcleod DPT, KALEN <Electronically signed by Farrukh Mcleod DPT, JULIO, CSCS> 11/01/17 0645 CC: Cari Portillo DO EBG Signed Cariluann Portillo Start: 10-24-2017 End: 10-24-2017 Inital Evaluation (1) - PT Comments: See Note; NOTES: [facility] [address] [place] [address] Fax REHABILITATION SERVICES INITIAL EVALUATION MR#: [id number] Acct: [id number] Name: WILLA MORROW Rep #: [id number] : 1960 57 From: Farrukh Mcleod DPT, JULIO, CSCS Referring Dr.: Cari Portillo DO Status: REG RCR Insurance: [facility] [employer] SELF PAY INSURANCE Patient's Visit Information [...] to be FAXED BACK to us at [phone] for Medicare purposes. Please let me know if there are questions or concerns regarding this plan of care. Physician Signature: Date: <Electronically signed by Farrukh Mcleod DPT, OCS, CSCS> 10/24/17 0932 CC: Cari Portillo DO EBG Signed For Medicare only, by signing this I certify the plan of care. Physicians Signature Date Cari Portillo Start: 09-25-2017 End: 09-25-2017 Foot min 3 Views Comments: See Note; NOTES: [facility] [address] [place] [address] Foot min 3 Views MR#: [id number] Acct: [id number] Name: WILLA MORROW Rep #: [id number] : 1960 M 57 From: Davin Cárdenas MD PCP: Cari Portillo DO Status: REG CLI Study: Foot min 3 Views Date of Exam: 09/25/17 Exam# [id number] Ordering Dr: Cari Portillo DO STUDY: X-RAY - RIGHT FOOT CLINICAL: Male, 57 years old. Lateral foot trauma, pain. TECHNIQUE: 3 view(s) of the foot. COMPARISON: None. ___ FINDINGS: Osteopenia. Mild DJD of the interphalangeal joints, mild to moderate of the 1st digit metatarsophalangeal joint, mild hallux valgus of the 1st digit. No fracture. Preserved arch. Unremarkable soft tissues. Prominent peripheral vascular calcifications. ___ RAD/Foot min 3 Views IMPRESSION: No evidence of acute injury. Electronically Signed: Davin Cárdenas, at 18:04 EDT Tel , Service support , CC: Cari Portillo DO Air Twister Winder: Signed Cari Portillo Work Phone: Start: 09-25-2017 End: 09-25-2017 Knee 4 or More Views Comments: See Note; NOTES: [facility] Imaging Services [address] [place] [address] Knee 4 or More Views MR#: [id number] Acct: [id number] Name: CRISTHIANWILLA Rep #: [id number] : 1960 M 57 From: Davin Cárdenas MD PCP: Cari Portillo DO Status: REG CLI Study: Knee 4 or More Views Date of Exam: 09/25/17 Exam# [id number] Ordering Dr: aCri Portillo DO STUDY: X-RAY - RIGHT KNEE REASON FOR EXAM: Male, 57 years old. Pain, no injury. TECHNIQUE: 4 view(s) of the knee. COMPARISON: None. ___ FINDINGS: Osteopenia. No effusion. Periarticular soft tissues unremarkable. Mild joint margin osteophytic lipping of the patellofemoral articulation, in particular the lateral facets. No significant degenerative features of the medial or lateral compartment of the knee. ___ RAD/Knee 4 or More Views IMPRESSION: Mild DJD of the patellofemoral joint. Electronically Signed: Davin Cárdenas, at 18:05 EDT Tel , Service support , CC: Cari Portillo DO Air Twister Winder: Signed Cari Portillo Work Phone: Start: 06-04-2017 End: 06-04-2017 Foot min 3 Views Comments: See Note; NOTES: [facility] Imaging Services [address] [place] [address] Foot min 3 Views MR#: [id number] Acct: [id number] Name: WILLA MORROW Rep #: [id number] : 1960 M 56 From: Anuel Harrison MD PCP: Cari Portillo DO Status: REG CLI Study: Foot min 3 Views Date of Exam: 06/04/17 Exam# [id number] Ordering Dr: Ruchi Valenzuela STUDY: X-RAY - RIGHT FOOT CLINICAL: Male, 56 years old. Right foot pain. TECHNIQUE: 3 view(s) of the foot. COMPARISON: None. ___ FINDINGS: Normal talus, calcaneus, and tarsal bones. [...] toes. The soft tissue structures are unremarkable. ___ RAD/Foot min 3 Views IMPRESSION: No acute abnormality. Prominent degenerative changes of the first metatarsophalangeal joint. Electronically Signed: Anuel Harrison MD at 23:13 EDT , Service support , CC: aCri Portillo DO; Ruchi Valenzuela DPM Air Twister Winder: Signed Cari Portillo Start: 03-29-2017 End: 03-29-2017 Urgent Care Visit Report Comments: See Note; NOTES: [facility] [address] [place] [address] OFFICE VISIT Date of Service: 03/29/17 MR#: [id number] Acct: [id number] Name: WILLA MORROW R Rep #: [id number] : 1960 Provider: Antonio CLEMENTS Age/Sex: 56/M Location: [facility] Status: Signed Intake Vital Signs03/29/17 Height 5 [...] pattern Exam Const General: cooperative, healthy appearing [facility] Head: normal to inspection Ears: hearing grossly [...] 1747 <Electronically signed by Antonio CLEMENTS> Date ___ Antonio CLEMENTS Cosigner Signature: Date ___ (if applicable) CC: Cari Portillo Start: 05-08-2016 End: 05-08-2016 Operative Report Comments: See Note; NOTES: [facility] Medical Records Department [address] [place] [address] Operative Report MR#: [id number] Acct: [id number] Name: CRISTHIANWILLA R Rep #: [id number] : 1960 55 From: Long Colmenares MD PCP: Cari Portillo DO Status: [facility] DATE OF SERVICE: PROCEDURE PERFORMED: Esophagogastroduodenoscopy with biopsy. PREOPERATIVE DIAGNOSES: The patient with reflux symptoms with epigastric pain. POSTOPERATIVE DIAGNOSES: Hiatal hernia noted in the distal esophagus, no evidence of Yao's mucosa, some erythema of the gastric mucosa. No active peptic ulcer disease. MEDICATIONS GIVEN: Anesthesia via MAC. INSTRUMENT: Olympus upper endoscope. DESCRIPTION OF PROCEDURE: Procedure as follows, informed consent was obtained prior to the procedure. The patient was brought to procedure room, placed left shoulder down and given the above medications, anesthesia via the MAC. The endoscope was passed under direct visualization down the esophagus. The proximal and mid esophagus appeared normal. The Z-line [...] normal. Scope was withdrawn back in the stomach. Retroflexion was performed. A view of the cardia is well seen. There are no abnormalities in the cardia. Several biopsies of gastric antrum and body were taken for pathology. The stomach was decompressed. The endoscope was also withdrawn. The patient tolerated the procedure well. IMPRESSION: A 55-year-old with acid reflux symptoms with a hiatal hernia, no evidence of Yao's mucosa. PLAN: Continue PPI. The patient needs to make some lifestyle modifications. MD Lashonda Bentley C: Cari Portillo DO T: [facility] JOB: [id number] 05/08/16 1409 <Electronically signed by Long Colmenares MD> Date ___ Long Colmenares MD Cosigner Signature (If Indicated): Date ___ CC: Cari Portillo DO; Long Colmenares Date Dictated: 04/26/16830 Date Transcribed: 04/26/16830 Air Twister Winder: Signed Cari Portillo Start: 04-18-2016 End: 04-18-2016 PT D/C Summary (1) Comments: See Note; NOTES: [facility] [address] [place] [address]. [address] [place] [address] Fax REHABILITATION SERVICES DISCHARGE SUMMARY MR#: [id number] Acct: [id number] Name: WILLA MORROW Rep #: [id number] : 1960 55 From: Farrukh Mcleod DPT, OCS, CSCS Referring Dr.: Cari Portillo DO Status: REG RCR Insurance: [facility] HP - PT D/C Summary It has been my pleasure to treat ED R CRISTHIAN under orders from Cari Portillo, for the diagnosis of cervical rediculopathy for a total of 7 visit(s). Discharge Date: 04/17/16 Please see the following information [...] HEP: c/s ext, UT stretch, will get ball to roll on neck also. - Pain [...] at least 30 ext and 60 B rotation and scapula ROM to full. Goal Progress: Progressing Goal 2:: Pain in neck at 2/10 at worst and intermittent. Goal Progress: Goal Met Goal 3:: Feel back to baseline pain as prior to 5 months ago. Goal Progress: Goal Met Goal 4:: I approp HEP to maintain improvements in posture and pain. Goal Progress: Goal Met - Plan Plan: D/C to HEP - D/C Information Discharge Comments: Pt will continuie c/s ROM and postural focus with stretching at home. Feeling 80% better. May benefit from prescription for monthly massages. Should be sent back for PT if condition worsens again. If there are questions or concerns regarding this patient's physical therapy, please feel free to call me at [phone]. Thank you for the referral of this patient. Sincerely, JESSE AlvarengaT, OC <Electronically signed by Farrukh Mcleod DPT, OCS, CSCS> 04/18/16 0737 CC: Cari Portillo DO EBG Signed Cari Portillo Start: 03-30-2016 End: 03-30-2016 Inital Evaluation (1) - PT Comments: See Note; NOTES: [facility] [address] [place] [address] Fax REHABILITATION SERVICES INITIAL EVALUATION MR#: [id number] Acct: [id number] Name: WILLA MORROW Rep #: [id number] : 1960 55 From: Farrukh Mcleod DPT, OCS, CSCS Referring Dr.: Cari Portillo DO Status: REG RCR Insurance: [facility] [employer] Patient's Visit Information ED Cristian MORROW is a 55 year old M referred to Physical Therapy by Cari Portillo with a diagnosis of cervical rediculopathy. Date of Evaluation: 03/29/16 Physical Therapist: Farrukh Mcleod, PATRICK, OC - Visit Plan Frequency: 3x /Week Duration: 4-6 Weeks Plan: 3x/week for 2-4 weeks for US to B UT thermal, STM to B UT and subocc, stretch B UT, PROM to c/s and postural focus. monitor HEP of c/s retraction for need to progress. - Subjective Subjective: Years of neck issues. Thought it was c6-7 vertebraes. Saw a surgeon Karime who did a catscan and was told that vertebraes are pushing agains sac, not spinal cord. That was a year ago. Has hand numbness but has CTS in both hands. Saw Dr. Portillo yesterday as B UT were tight like a rubber band and hurts all the time. Been that way for years. Worse in last 4-5 months without reason. Sitting and crocheting and on TV/computeralot. Mornings are better. Sleeps well for 7-8 hours, readjusting half way due to neck pain. Uses a Cpap. 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 No SCHERER and no other arm numbness. - Pain UT B Pain Intensity (Out of 10): 8 Pain Intensity Range: 3, 10 - Objective Forward head and elevated scap posture. Tightness [...] tri. Sensation is WNL to gross light touch in UE. Strength in arms is 4/5 without asymmetries. Repeated retraction seems to centralize pain today. Slight positive L cervical compression test. - Goals Goal 1:: Posture and ROM improved to at least 30 ext and 60 B rotation and scapula ROM to full. Goal 2:: Pain in neck at 2/10 at worst and intermittent. Goal Time Frame: 4-6 Weeks Goal 3:: Feel back to baseline pain as prior to 5 months ago. Goal Time Frame: 4-6 Weeks Goal 4:: I approp HEP to maintain improvements in posture and pain. Goal Time Frame: 4-6 Weeks - Rehabilitation Potential Physical Therapy Diagnosis: cervical pain with soft tisuue irritation in neck. Rehabilitation Potential: Fair - Anticipated Interventions Patient/Client Instruction: Educate patient on: Condition, Plan of Care For the Purpose of:: To decrease pain, To increase ROM, To improve ability of physical actions for home/community/work/leisure Therapeutic Exercise to Include: Strength training, Postural training, Yulissa Exercises Comment: muscle pumping for c/s and UT For the Purpose of:: To decrease pain Manual Therapy Techniques to Include: Passive ROM, Soft tissue mobilization For the Purpose of:: To decrease pain, To increase ROM, To improve nutrient delivery to tissue IF ES: Yes - if needed. Thermo therapy (hot pack): Yes For the Purpose of:: To decrease pain Thank you for the opportunity to evaluate your patient. For Medicare and Medicare HMO plans, please review the plan of care and approve it. It will need to be FAXED BACK to us at [phone] for Medicare purposes. Please let me know if there are questions or concerns regarding this plan of care. Physician Signature: Date: <Electronically signed by Farrukh Mcleod DPT, OCS, CSCS> 03/30/16 0653 CC: Cari Portillo DO EBG Signed For Medicare only, by signing this I certify the plan of care. Physicians Signature Date Cari Portillo Start: 08-17-2015 End: 08-17-2015 Spmtry w/vc expiratory toy w/wo mxml vol vntj _ Cari Portillo Work Phone: Start: 08-17-2015 End: 08-17-2015 Ecg routine ecg w/least 12 lds w/i&r [MEASUREMENTS ANALYSIS] Date of Test: 08/17/2015 10:09:13; Heart Rate: 56; NH Interval: 160; QRS: 108; QT Interval: 380; Corrected QT Interval (QTc): 373; P Wave [place]: 41; QRS Wave [place]: 38; T Wave [place]: 32; Blood Pressure: 132/82 [ECG DIAGNOSTIC STATEMENTS] Date of Test: 08/17/2015 10:09:13; Summary: Sinus Bradycardia -Prominent R(V1) -nonspecific. BORDERLINE Cari Portillo Work Phone: Comment on above: sinus jermaine - no acute chg Start: 04-13-2015 End: 04-13-2015 NCS and/or EMG Patient Comments: See Note; NOTES: [facility] Pulmonary Services/Neurology [address] [place] [address] NCS and/or EMG Patient MR#: [id number] Acct: [id number] Name: CRISTHIANWILLA Rep #: [id number] : 1960 54 From: [place] Wells Referring Dr: Kathie Sen DO Status: REG CLI Ordering Dr: Kathie Sen DO Date: 04/13/15 Location: PSN Sex: M C DATE OF SERVICE: REFERRING PHYSICIAN: Kathie Sen D.O. HISTORY: The patient is a 54-year-old gentleman with numbness and pain in both hands. ELECTRODIAGNOSTIC FINDINGS: Prolonged median sensory and motor latencies bilaterally, worse on the right. Mild slowing of the right ulnar wrist sensory latency. Normal ulnar motor studies. No radial sensory slowing is noted. Normal EMG in areas tested both arms without membrane irritability or motor unit changes. IMPRESSION: 1. Bilateral carpal tunnel syndrome, moderate on the right, mild on the left. Consider wrist tendonitis, wrist and thumb degenerative changes, repetitive trauma, underlying ganglion cyst and other causes of median nerve entrapment at the wrist. These findings correlate well with his main clinical symptoms. 2. Mild right ulnar wrist sensory mononeuropathy. No evidence of cubital tunnel syndrome is noted today. Wrist tendonitis and degenerative changes can also cause an ulnar wrist sensory entrapment as is likely occurring here. 3. No evidence of polyneuropathy, cervical radiculopathy or brachial plexus lesion. He will follow up with Dr. Sen for further review. Thank you for this referral. Hudson Wells MD T: [facility] JOB: [id number] 04/13/15 2257 <Electronically signed by Hudson Wells > Date ___ Hudson Wells CC: Kathie WELLS Date Dictated: 04/13/15 0834 Date Transcribed: 04/13/15833 Air Twister Winder: Signed Kathie Sen Work Phone: Start: 02-12-2015 End: 02-12-2015 Sleep Study Report Comments: See Note; NOTES: [facility] [address] [place] [address] Polysomnography with NCPAP MR#: [id number] Acct: [id number] Name: WILLA MORROW Cristian Rep #: [id number] : 1960 54 From: Danis Verdugo MD PCP: Kathie Sen DO Status: REG CLI Ordering Dr.: Fredi Perez MD Date: 02/09/15 Sex: M C DATE OF SERVICE: 02/09/2015 SCORING RULES: Respiratory events were acquired and scored in accordance with the Recommended Standards and Specifications as outlined in the AASM Manual for the Scoring of Sleep and Associated Events ( most recent version). Please note that a reference to [facility] AHI in this report is consistent with the current Hypopnea definition according to Medicare Criteria and an [facility] AHI reference is consistent with the current Hypopnea definition according to the AASM criteria and is recognized by [facility] as the RDI. PROCEDURE: The study was attended continuously by a master control technician. Monitored parameters included left and right EOG, frontal, central, and occipital EEG, mental and submental EMG, left and right anterior tibialis EMG, signal ECG waveform, snore, continuous airflow with PAP device flow signal, chest and abdominal plethysmography efforts, oxygen saturation with heart rate, and body positioning with video monitoring. REFERRING PHYSICIAN: Dr. Perez. SLEEP HISTORY: This is a CPAP titration study performed on this 54-year-old male with a body mass index of 45.8 and an [place] sleepiness scale score of 0. The patient has a history of snoring and excessive daytime somnolence, including falling asleep while driving. There was a diagnostic polysomnogram in 2002 with subsequent titrations in 2002 and 2005. His last CPAP setting was between 8 and 10 cm according to the records. MASK USED DURING THE STUDY: There is a medium [...] sleep stages are identified during this study. RESPIRATORY DATA: The total AHI was 6.9 and the total RDI was 16.6. The REM AHI was 0, the non-REM AHI was 7.3. Supine RDI was 24.2, the patient was supine for 3 hours and 25 minutes of sleep. Oxygen saturation dropped below 88% for 0.4 minutes of total sleep time. The minimum oxygen saturation was 85% and the maximum was 100%, mean was 95.7%. Pulse rate ranged from 52-61 beats per minute with a mean of 61.4 beats per minute. No arrhythmias were [...] IMPRESSION: Obstructive sleep apnea. RECOMMENDATIONS: Nasal BiPAP with the above recommended mask with heated humidity with a setting of 18 and 14 and Bilevel controls as follows: Ti Max 1.0, min 0.3, cycle high, trigger medium and Easy-Breathe on. Danis Verdugo MD T: [facility] JOB: [id number] CC: Danis Verdugo MD 02 0202/12/15 1012 <Electronically signed by Danis Verdugo MD> Date ___ Danis Verdugo MD Co-signature (if applicable) Date ___ Signed Fredi Perez Work Phone: Start: 01-12-2015 End: 01-12-2015 Carotid Duplex Ultrasound Comments: See Note; NOTES: [facility] Cardiovascular Services [address] [place] [address] Carotid Duplex Ultrasound 01/05/15 1537 MR#: [id number] Acct: [id number] Name: WILLA MORROW R Rep #: [id number] : 1960 54 From: Seven Allison MD Attending Dr: Kathie Sen DO Status: REG CLI Ordering Dr: Kathie Sen DO Date: 01/05/15 Location: CVS Sex: M C Admitted: Rt. Velocities/BP Lt. Velocities/BP Prox CCA 151/42 cm/sec. Prox CCA 127/35 cm/sec. Mid CCA 113/35 cm/sec. Mid CCA 112/40 cm/sec. Dist CCA 117/38 cm/sec. Dist CCA 99/35 cm/sec. Prox ICA 82/32 cm/sec. Prox ICA 90/35 cm/sec. Mid ICA [...] significant atherosclerotic plaque noted in the right internal carotid artery. There is no significant atherosclerotic plaque noted in the right external carotid artery. Antegrade flow is noted in the right vertebral artery. Left Extracranial There is no significant atherosclerotic plaque noted in the left common carotid artery. There is no significant atherosclerotic plaque noted in the left internal carotid artery. There is no significant atherosclerotic plaque noted in the left external carotid artery. Antegrade flow is noted in the left vertebral artery. Procedure Carotid Duplex 19708. Exam performed in department. Interpretation Summary Mild (<50%) stenosis right extracranial internal carotid. Mild (<50%) stenosis left extracranial internal carotid. Flow within the vertebral arteries is antegrade bilaterally. Ordering Physician: Kathie Sen Referring Physician: Kathie Sen D.O. Performed By: Shari Salinas 01/12/15 0803 Date ___ Seven Allison MD CC: Kathie Sen DO Date Dictated: 01/05/15 1537 Date Transcribed: 01/12/15 0803 Air Twister Winder: Signed Kathie Medel Phone: Start: 10-20-2014 End: 10-20-2014 Shoulder min 2 Views Comments: See Note; NOTES: [facility] Imaging Services [address] [place] [address] Radiology Report MR#: [id number] Acct: [id number] Name: WILLA MORROW Rep #: [id number] : 1960 M 54 From: Chaim Bergeron MD PCP: Kathie Sen DO Status: REG CLI Study: Shoulder min 2 Views Date of Exam: 10/20/14 Exam# [id number] Ordering Dr: Anthony Teran DO STUDY: X-RAY - LEFT SHOULDER REASON FOR EXAM: Male, 54 years old. Pain. No injury TECHNIQUE: 3 view(s) of the shoulder. COMPARISON: None. ___ FINDINGS: Normal glenohumeral articulation. There is mild arthrosis of the acromioclavicular joint. Normal acromion. Normal humeral head and visualized proximal humerus. The soft tissue structures are unremarkable. Normal visualized pulmonary apex. ___ IMPRESSION: Mild arthrosis of the acromioclavicular joint Electronically Signed: Chaim Bergeron MD, FACR at 20:20 EDT , Service support [phone], RAD/Shoulder min 2 Views IMPRESSION: Mild arthrosis of the acromioclavicular joint Electronically Signed: Chaim Bergeron MD, FACR at 20:20 EDT , Service support [phone], CC: Kathie Sen DO; Anthony Teran Air Twister Winder: Signed Cari Portillo Start: 07-05-2014 End: 07-05-2014 Emergency Department Summary Comments: See Note; NOTES: [facility] Medical Records Department [address] [place] [address] Emergency Department Summary 07/05/14 1141 MR#: [id number] Acct: [id number] Name: WILLA MORROW R Rep #: [id number] : 1960 53 From: Arsh Macias MD PCP: Kathie Sen DO Status: REG ER History of Present Illness Chief Complaint: Abd Pain Informant: Patient - Abdominal Pain/Flank Pain Onset: Today, Yesterday - about 3 hrs Context: Gradual Onset Timing: Waxes and wanes Quality: Dull, Sharp Location: RUQ Current Severity: Mild Maximum Severity: Severe Worsened by: Food - started about 1 hr after fatty breakfast Relieved by: Nothing - Nausea/Vomiting/Emesis Onset: Today Quality: Nausea. Negative for: Vomiting - Diarrhea/Melena/Hematochezia GI Symptom: Negative for: Diarrhea, Melena, Hematochezia Associated Symptoms: Negative for: Dysuria, Hematuria Prior similar symptoms: No Recent Illness/Hospitalization: No - Past Medical History (1) Rheumatoid arthritis Status: Chronic (2) HTN (hypertension) Status: Chronic (3) Hiatal hernia Status: Chronic Past Medical History - Allergies and Home Meds Allergies/Adverse Reactions: Allergies codeine Allergy (Verified 07/05/14 10:40) Hives gabapentin [From Neurontin] Allergy (Verified 07/05/14 10:40) Hives Sulfa (Sulfonamide Antibiotics) Allergy (Verified 07/05/14 10:40) Rash Surgical History: - - left knee Smoking Status: Never smoker Review of Systems All systems negative except as indicated Gastrointestinal: Reports: Abdominal pain, Nausea Physical Exam Vital Signs/Narrative: Vital Signs Temp Pulse Resp BP 07/05/14 10:38 100.4 F 89 16 162/93 General: Well nourished, Well developed Head: Normocephalic, Atraumatic Eyes: Perrl, EOMI ENT: Moist mucous membranes, No rhinorrhea Neck: Supple, Nontender Cardiovascular: [...] Diagnostic/Tx/Re-eval US: RUQ - negative, no stones, negative sonographic hardin Impressions Gallbladder Ultrasound 07/05/14 11:49 IMPRESSION: Normal gallbladder ultrasound examination. Fatty infiltration liver. Nonvisualization of pancreas due to overlying bowel gas. Electronically Signed: Ankit Mcmahon DO at 12:53 EDT , Service support [phone], 07/05/14 11:49 Gallbladder [US] Stat Laboratory Results 07/05/14 07/05/14 Range/Units 10:50 11:10 WBC 5.4 (4.4-11.0) K/mm3 RBC 4.56 L (4.6-6.2) M/mm3 Hgb 13.7 (13.0-16.5) g/dl Hct 43.4 (40-54) % MCV 95.2 H (80-94) fL MCH 30.0 (27.0-32.0) pg MCHC 31.6 L (32-36) g/gl RDW 14.2 (11.6-14.6) % RDW Differential 48.8 H (35.1-43.9) fl Plt Count 231 (150-450) K/mm3 MPV 9.8 (6.2-12.0) fl Immature Gran % (Auto) 0.200 (0.0-0.9) % Neut % (Auto) 56.0 (47-70) % Lymph % (Auto) 31.6 (19-41) % [place] % (Auto) 7.4 (0-10) % Eos % (Auto) 4.6 (0-5) % Baso % (Auto) 0.2 (0-1) % Absolute Neuts (auto) 3.0 (2.0-7.7) X10 Absolute Lymphs (auto) 1.70 (0.83-4.51) X10 Total Counted Not Reportable Sodium 142 (136-145) mmol/L Potassium 4.0 (3.5-5.1) mmol/L Chloride 105 (98-107) mmol/L Carbon Dioxide 30.0 (21.0-32.0) mmol/l Anion Gap 7 (5-15) BUN 24 H (7-18) mg/dL Creatinine 1.0 (0.8-1.3) mg/dL Estim Creat Clear Calc 72.60 ml/min Est GFR (MDRD) Af Amer 99 (>60) mL/min Est GFR (MDRD) Non-Af 82 (>60) mL/min BUN/Creatinine Ratio 24.0 H (10-20) RATIO Glucose 99 (70-110) mg/dL Calcium 8.6 (8.5-10.1) mg/dL Urine Color Yellow (Yellow) Urine Clarity Clear (Clear) Urine pH 7.0 (5.0 - 8.0) Ur Specific [place] 1.010 (1.002-1.030) Urine Protein Negative (Negative) mg/dl [...] (<or=2+) /hpf - Medical Decision Making Patient was treated with Toradol, did not significant changes [...] have symptoms he may need a HIDA scan, EGD, or other testing. He is comfortable with this plan. Disposition: Home ED Disposition - Plan for ED Patient: Disposition: Home Chief Complaint: Abd Pain Diagnosis: Abdominal pain Instructions: ED Abdominal Pain, Unknown Cause, (Male) Prescriptions: Hydrocodone Bitart/Apap 5-325 [[place] 5/325] 1 - 2 tablet PO Q4H PRN PRN #12 tablet PRN Reason: Pain Omeprazole [Prilosec] 20 mg PO DAILY #30 capsule Referrals: Kathie Sen DO [Primary Care Provider] - 3-5 Days What to do if you have Problems For any increased pain, shortness of breath, bleeding, nausea or vomiting, chest pain, or any unexpected problems, contact your doctor. Call [facility] ([phone]) or report to the closest Emergency Room. Call 911 if necessary. 07/05/14 1502 <Electronically signed by Arsh Macias MD> Date ___ Arsh Macias MD Cosigner Signature (If Indicated): Date ___ CC: Kathie Power Start: 07-05-2014 End: 07-05-2014 Gallbladder Comments: See Note; NOTES: [facility] Imaging Services [address] [place] [address] Ultrasound Report MR#: [id number] Acct: [id number] Name: WILLA MORROW Rep #: [id number] : 1960 M 53 From: Ja Saenz DO PCP: Kathie Sen DO Status: REG ER Study: Gallbladder Date of Exam: 07/05/14 Exam# [id number] Ordering Dr: Arsh Macias MD STUDY: ULTRASOUND GALLBLADDER REASON FOR VISIT: Male, 53 years old. Abdominal pain TECHNIQUE: Ultrasound evaluation of the gallbladder was performed with real-time and static tripp-scale imaging. TECHNICAL QUALITY: Limited. Examination limited due to a combination of factors including obesity and bowel gas. COMPARISON: September 29, 2009 ___ FINDINGS: Liver: Liver measures 13.6 cm in [...] measures 2.8 mm. Pancreas is obscured by gas. Right kidney measures 12.4 x 4.6 x 6.9 cm. Renal cortex measures 1.7 cm. There is no hydronephrosis or renal mass confirmed. _ IMPRESSION: Normal gallbladder ultrasound examination. Fatty infiltration liver. Nonvisualization of pancreas due to overlying bowel gas. Electronically Signed: Ankit Mcmahon DO at 12:53 EDT , Service support [phone], CC: ARSH MACIAS MD; Kathie Sen DO Air Twister Winder: Signed Cari Portillo Start: 01-20-2014 End: 01-20-2014 Shoulder min 2 Views Comments: See Note; NOTES: [facility] Imaging Services [address] [place] [address] Radiology Report MR#: [id number] Acct: [id number] Name: WILLA MORROW Cristian Rep #: [id number] : 1960 53 From: Arsh Mi MD PCP: Kathie Sen DO Status: REG CLI Study: Shoulder min 2 Views Date of Exam: 01/20/14 Exam# [id number] Ordering Dr: Kathie Sen DO STUDY: X-RAY - LEFT SHOULDER REASON FOR EXAM: Male, 53 years old. Pain TECHNIQUE: 4 view(s) of the shoulder. COMPARISON: None. ___ FINDINGS: Normal glenohumeral articulation. Normal acromioclavicular joint. Normal acromion. Normal humeral head and visualized proximal humerus. The soft tissue structures are unremarkable. There is no demonstrated fracture. ___ IMPRESSION: No fracture. Joint spaces are well-preserved. Electronically Signed: Arsh Mi MD at 17:11 EST , Service support [phone], RAD/Shoulder min 2 Views IMPRESSION: No fracture. Joint spaces are well-preserved. Electronically Signed: Arsh Mi MD at 17:11 EST , Service support [phone], CC: Kathie Sen DO Air Twister Winder: Signed Kathie Sen Work Phone: Start: 09-23-2013 End: 09-23-2013 NCS and/or EMG Patient Comments: See Note; NOTES: [facility] Pulmonary Services/Neurology [address] [place] [address] NCS and/or EMG Patient MR#: [id number] Acct: [id number] Name: WILLA MORROW Cristian Rep #: [id number] : 1960 53 From: Atif Samuels MD Referring Dr: Kathie Sen DO Status: REG CLI Ordering Dr: Kathie Sen DO Date: 09/16/13 Location: [facility] Sex: M C The patient presents for electrodiagnostic testing of the lower extremities. He has chief complaint of pain and numbness in both lower limbs. ELECTRODIAGNOSTIC FINDINGS: On nerve conduction study, the common peroneal nerve demonstrated normal distal latency, amplitude, and conduction velocity bilaterally. Normal tibial and motor responses. Normal peroneal and tibial F waves. H reflex is borderline prolonged bilaterally. Sensory responses are within normal limits, as are plantar responses. On needle EMG, all muscles tested in the lower limbs showed no evidence of denervation with normal motor unit action potentials. ELECTRODIAGNOSTIC IMPRESSION: This is a normal electrodiagnostic study of the lower extremities. There is no electrodiagnostic evidence for peripheral neuropathy or lumbosacral radiculopathy. If there are any questions in regards to this exam, please do not hesitate to contact me. Sincerely, 09/23/13 1104 <Electronically signed by Atif Samuels MD> Date ___ Atif Samuels MD CC: Atif Samuels MD; Kathie Sen DO Date Dictated: 09/16/13 1138 Date Transcribed: 09/16/13 1244 Air Twister Winder: SCHERER Signed Cari Portillo Start: 05-15-2013 End: 05-16-2013 Spine Cervical (Routine) Comments: See Note; NOTES: [facility] Imaging Services [address] [place] [address] MRI Report MR#: [id number] Acct: [id number] Name: CRISTHIANWILLA Rep #: [id number] : 1960 52 From: Chaim Bergeron MD PCP: Kathie Sen DO Status: REG CLI Study: Spine Cervical (Routine) Date of Exam: 05/15/13 Exam# [id number] Ordering Dr: Kathie Sen DO STUDY: MRI CERVICAL SPINE WITHOUT CONTRAST REASON FOR EXAM: Male, 52 years old. Neck pain TECHNIQUE: Standardized fat and water weighted pulse sequences were obtained in the sagittal and axial planes. COMPARISON: None ___ FINDINGS: Normal foramen magnum and brainstem-cervical cord junction. Normal craniovertebral junction. Normal anterior atlantoaxial articulation. Normal odontoid process. There is straightening of the normal cervical lordosis. Normal vertebral bodies and posterior osseous elements. C2-3: Normal endplates. Normal disc height, signal and morphology. Normal central canal and intervertebral neural foramina. C3-4: Normal endplates. Normal disc height, signal and morphology. Normal central canal and intervertebral neural foramina. C4-5: Normal endplates. Normal disc height, signal and morphology. Normal central canal and intervertebral neural foramina. C5-6: There is degenerative disease with disc space narrowing and disc desiccation. There is a moderate annular bulge. There is effacement of the ventral aspect of the thecal sac. There is mild bilateral foraminal stenosis C6-7: There is degenerative disease with disc space narrowing and disc desiccation. There is endplate spondylosis. There is an annular bulge with effacement of the ventral aspect of the thecal sac. There is no significant spinal canal stenosis. There is mild left foraminal stenosis C7-T1: Normal endplates. Normal disc height, signal and morphology. Normal central canal and intervertebral neural foramina. Normal cervical cord. Normal visualized soft tissue structures. ___ IMPRESSION: Degenerative disc disease at C5-6 and C6-7 with annular bulges and mild foraminal stenosis as outlined above. Loss of normal lordosis. Electronically Signed: Chaim Bergeron M.D. at 9:11 EDT , Service support [phone], CC: Kathie Sen DO Air Twister Winder: Signed Kathie Sen Work Phone: Start: 05-15-2013 End: 05-16-2013 Spine Lumbar (Routine) Comments: See Note; NOTES: [facility] Imaging Services [address] [place] [address] MRI Report MR#: [id number] Acct: [id number] Name: WILLA MORROW Rep #: [id number] : 1960 52 From: Chaim Bergeron MD PCP: Kathie Sen DO Status: REG CLI Study: Spine Lumbar (Routine) Date of Exam: 05/15/13 Exam# [id number] Ordering Dr: Kathie Sen DO STUDY: MRI LUMBAR SPINE WITHOUT CONTRAST REASON FOR EXAM: Male, 52 years old. Radiculopathy. Right leg pain and numbness. Low back pain. TECHNIQUE: Standardized fat and water weighted pulse sequences were obtained in the sagittal and axial planes. COMPARISON: X-rays of the lumbar spine on 04-02-12 ___ FINDINGS: T12-L1: Normal endplates. Normal disc height, hydration and morphology. Normal bilateral facet joints. Normal central canal and bilateral lateral recesses. Normal bilateral intervertebral neural foramina. There is an exaggerated lumbar lordosis. There is no substantial scoliosis. Normal conus medullaris that terminates at [...] bulge. Normal bilateral facet joints. Normal central canal and bilateral lateral recesses. Normal bilateral intervertebral neural foramina. L5-S1: Normal endplates. There is grade 1 degenerative spondylolisthesis There is an annular bulge. There is severe bilateral facet arthrosis. Normal central canal and bilateral lateral recesses. There is bilateral foraminal stenosis with impingement of the exiting L5 nerve roots. Normal visualized sacral ala. Normal visualized paraspinous soft tissue structures. ___ IMPRESSION: L4-5 moderate annular bulge. L5-S1 grade 1 degenerative spondylolisthesis with annular bulge and severe bilateral facet arthrosis. Bilateral foraminal stenosis with impingement of the L5 nerve roots Electronically Signed: Chaim Bergeron M.D. at 9:14 EDT , Service support [phone], CC: Kathie Sen DO Air Twister Winder: Signed Kathie Sen Work Phone: Start: 02-11-2013 End: 02-11-2013 PT Discharge Summary Comments: See Note; NOTES: [facility] [address] [place] [address]. [address] [place] [address] Fax REHABILITATION SERVICES DISCHARGE SUMMARY MR#: [id number] Acct: [id number] Name: WILLA MORROW Rep #: [id number] : 1960 52 From: Shannen Anne Referring Dr.: Kathie Sen DO Status: REG RCR Eval Date: Discharge Date: DATE OF SERVICE: 02/09/2013 This patient was referred to physical therapy by Dr. Kathie Sen with a diagnosis of cervical, shoulder and lumbar diagnoses. He has been seen in our clinic times a total of 10 visits. His physical therapy has mainly consisted of aquatic therapy to increase his strength, increase his range of motion, decrease his pain and improve his functional mobility. Upon presentation to physical therapy today, he reports approximately 55% improvement overall since starting physical therapy. He reports that he did have a fall on the restorationist steps last night and is a little sore today. He reports that he just got stoved up and was able to work today without any more pain than usual. He rates his neck pain 3/10, left shoulder pain 3/10 and low back/hip pain 6/10. Bilateral upper extremity dural signs are negative today. Bilateral upper extremity strength is grossly 4/5 with manual muscle testing and his cervical range of motion is relatively unchanged since the initial evaluation. He has pain with range of motion and manual muscle testing of the left upper extremity, but it has improved. He is now independent with a water exercise program. All physical therapy goals have been met, although he continues to have significant symptoms and complaints of pain. I recommended follow up with Dr. Sen. He plans to continue his water exercises independently as a [employer] member and is considering our therapeutic fitness program. I am discharging him from formal physical therapy at this time. He was agreeable to discharge. Shannen Anne, PT C C: Kathie Sen DO T: [facility] JOB: [id number] <Electronically signed by Shannen Anne > 02/11/13 0952 CC: * Signed Kathie Sen Work Phone: Start: 01-14-2013 End: 01-14-2013 Inital Evaluation - PT Comments: See Note; NOTES: [facility] [address] [place], [place] [address] Fax REHABILITATION SERVICES INITIAL EVALUATION MR#: [id number] Acct: [id number] Name: WILLA MORROW Rep #: [id number] : 1960 52 From: Shannen Anne Referring Dr.: Kathie Sen DO Status: REG R Insurance: [employer] [facility] Date: DATE OF SERVICE: 01/12/2013 SUBJECTIVE: This patient presents to physical therapy with complaint of multiple joint pain, but chief complaint of left shoulder pain. He reports that he has always had shoulder [...] He has 3 jobs. 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 He reports that life increase his pain. He has increased left shoulder pain first thing in the morning and the pain is disturbing his sleep. He reports that use of a pain patch and heat helps his symptoms. The patient denies prior left shoulder treatments. He reports a history of cervical physical therapy, chiropractic and epidural steroid injection treatments. He denies ringing in the ears, nausea or difficulty swallowing. He denies falls and he denies dropping things. 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 IMAGING: Cervical MRI 2008, lumbar x-ray approximately 2012 and right hip x-rays pending Saturday. He reports that he has degeneration of [...] been gaining weight. OBJECTIVE: This patient ambulates independently into physical therapy without any assistive devices, but decreased cristina. His sitting posture is poor. His standing posture is poor. He has a protruded head, but no torticollis. Active correction of his sitting posture decreases his complaint of left shoulder pain. Bilateral surveillance inspector strength equals 90 pounds. Bilateral upper extremity strength is 5/5 with manual muscle testing except for left shoulder flexion and abduction graded 4/5. Bilateral upper extremity range of motion is within functional limits, but he has pain in all planes with left shoulder range of motion testing and limited external rotation to 70 degrees and internal rotation to 60 degrees. Bilateral upper extremity light touch sensation is intact and symmetrical. Bilateral upper extremity reflexes are 1/2. He has a negative right upper extremity [...] a 52-year-old male with complaint of multiple joint with chief complaint of left shoulder pain that started many years ago, but increased significantly approximately 3 months ago for no apparent reason and is worsening. He presents with decreased cervical pain-free range of motion in all [...] aquatic therapy 3 times a week times x3-4 weeks for posture correction, cervical range of [...] plan of care. He had physical therapy earlier this year for his back and lower extremity symptoms. We will explore further evaluation of his lumbar and lower extremity regions after we see how he tolerates a few visits for his posture and left upper extremity. Shannen Anne, PT T: NTS JOB: [id number] <Electronically signed by Shannen Anne > 01/14/13 1542 CC: Signed For Medicare only, by signing this I certify the plan of care. Physicians Signature Date Kathie Sen Work Phone: Bilateral rotator cu ff and bicep repair Myla Slarb Bilateral rotator cu ff and bicep repair Lyssa Cross Bilateral rotator cu ff and bicep repair Lyssa Cross Bilateral rotator cu ff and bicep repair Marichuy Gravius Bilateral rotator cu ff and bicep repair Geronimo Jimenez H/O: vasectomy History of vasectomy Dr. Macrina Zafar Work Phone: History of operative procedure on knee Hx of knee surgery Dr. Latesha Zafar Work Phone: History of repair of musculotendinous cuff of shoulder H/O repair of rotator cuff Dr. Latesha Zafar Work Phone: Comment on above: 2019 laser sx varicose ve ins left leg 2010 [employer] laser sx varicose ve ins left leg 2010 [employer] Messenger laser sx varicose ve ins left leg 2010 W[place] laser sx varicose ve ins left leg 2010 Rebekah Neff laser sx varicose ve ins left leg 2010 Shann[place] laser sx varicose ve ins left leg 2010 Lyssa Cross laser sx varicose ve ins left leg 2010 Lyssa Cross laser sx varicose ve ins left leg 2010 Marichuy Gravius laser sx varicose ve ins left leg 2010 Geronimo Mendoza laser sx varicose ve ins left leg 2010 Shannan Chandan laser sx varicose ve ins left leg 2010 Geronimo Jimenez Plan of Treatment Date Care Activity Detail Author Start: 07-29-2024 Patient referral [facility] Work Phone: Start: 01-25-2022 Patient discharge [facility] Work Phone: Start: 09-20-2021 Patient referral [facility] Work Phone: Start: 05-25-2020 Procedure Education Eprescribed prescriptions (G8553) [facility]; [facility] Work Phone: Start: 05-25-2020 Provider Instructions for Treatment [facility] Work Phone: Start: 04-13-2020 Procedure Education Eprescribed prescriptions (G8553) [facility]; [facility] Work Phone: Start: 04-13-2020 Provider Instructions for Treatment [facility]; [facility] Work Phone: Start: 02-25-2020 Procedure Education Eprescribed prescriptions (G8553) [facility]; [facility] Work Phone: Start: 12-02-2019 Procedure Education Eprescribed prescriptions (G8553) [facility] Work Phone: Start: 12-02-2019 Provider Instructions for Treatment [facility] Work Phone: Start: 12-02-2019 HbA1c (Bld) [Mass fraction] HGB A1C (90926) [facility] Work Phone: Start: 12-02-2019 25 hydroxy includes fractions if performed CALCIFIDIOL (58489) VIT D 25 [facility] Work Phone: Start: 12-02-2019 TSH Qn TSH (75842) [facility] Work Phone: Start: 12-02-2019 Urnls dip stick/tablet reagent auto microscopy URINALYSIS, W/ MICRO (46412) [facility] Work Phone: Start: 12-02-2019 Urine albumin quantitative MICROALBUMIN: CREATININE RATIO (90198) AND (37241) [facility] Work Phone: Start: 12-02-2019 Comprehensive metabolic panel METABOLIC PANEL, COMPREHENSIVE (38175) [facility] Work Phone: Start: 12-02-2019 Blood count complete auto&auto difrntl wbc CBC W/AUTO DIFF WBC (76479) [facility] Work Phone: Start: 07-29-2019 Procedure Education Eprescribed prescriptions (G8553) [facility] Work Phone: Start: 07-29-2019 Provider Instructions for Treatment [facility] Work Phone: Start: 03-25-2019 Procedure Education Eprescribed prescriptions (G8553) [facility] Work Phone: Start: 03-25-2019 Provider Instructions for Treatment [facility] Work Phone: Start: 03-25-2019 HbA1c (Bld) [Mass fraction] HGB A1C (02327) [facility] Work Phone: Comment on above: STANDING ORDER EVERY 3MONTHS DO NOW FEB 2019 Start: 03-25-2019 25 hydroxy includes fractions if performed CALCIFIDIOL (78310) VIT D 25 [facility] Work Phone: Start: 03-25-2019 TSH Qn TSH (69752) [facility] Work Phone: Start: 03-25-2019 Lipid panel LIPID PANEL (76080) [facility] Work Phone: Start: 03-25-2019 Urnls dip stick/tablet reagent auto microscopy URINALYSIS, W/ MICRO (83691) [facility] Work Phone: Start: 03-25-2019 Urine albumin quantitative MICROALBUMIN: CREATININE RATIO (67703) AND (27665) [facility] Work Phone: Start: 03-25-2019 Comprehensive metabolic panel METABOLIC PANEL, COMPREHENSIVE (08398) [facility] Work Phone: Start: 03-25-2019 Blood count complete auto&auto difrntl wbc CBC W/AUTO DIFF WBC (10363) [facility] Work Phone: Start: 11-19-2018 Procedure Education Eprescribed prescriptions (G8553) [facility] Work Phone: Start: 11-19-2018 Provider Instructions for Treatment [facility] Work Phone: Start: 10-29-2018 Procedure Education Eprescribed prescriptions (G8553) [facility] Work Phone: Start: 10-29-2018 Magnesium [Mass/Vol] MAGNESIUM (32060) [facility] Work Phone: Start: 10-29-2018 Potassium [Moles/Vol] POTASSIUM SERUM (86696) [facility] Work Phone: Start: 2018 Procedure Education Eprescribed prescriptions (G8553) [facility] Work Phone: Start: 2018 Provider Instructions for Treatment Continue Current Prescription(s) [facility] Work Phone: Start: 2018 Lipoprotein blood malia numbers & subclasses NMR Profile (41840) [facility] Work Phone: Start: 2018 TSH Qn TSH (55641) [facility] Work Phone: Start: 2018 Urnls dip stick/tablet reagent auto microscopy URINALYSIS, W/ MICRO (37217) [facility] Work Phone: Start: 2018 Urine albumin quantitative MICROALBUMIN: CREATININE RATIO (19849) AND (69828) [facility] Work Phone: Start: 2018 Comprehensive metabolic panel METABOLIC PANEL, COMPREHENSIVE (73833) [facility] Work Phone: Start: 2018 Blood count complete auto&auto difrntl wbc CBC W/AUTO DIFF WBC (09036) [facility] Work Phone: Start: 2018 HbA1c (Bld) [Mass fraction] HGB A1C (76907) [facility] Work Phone: Start: 08-13-2018 Procedure Education Eprescribed prescriptions (G8553) [facility] Work Phone: Start: 08-13-2018 Provider Instructions for Treatment Follow up if no improvement or if symptoms worsen [facility] Work Phone: Start: 04-23-2018 Procedure Education Eprescribed prescriptions (G8553) [facility] Work Phone: Start: 04-23-2018 Provider Instructions for Treatment [facility] Work Phone: Start: 04-09-2018 Procedure Education Eprescribed prescriptions (G8553) [facility] Work Phone: Start: 03-12-2018 Provider Instructions for Treatment [facility] Work Phone: Start: 03-12-2018 Assay of prostate specific antigen total PSA (PROSTATE SPECIFIC ANTIGEN) (V76.44) [facility] Work Phone: Start: 03-12-2018 Protein mass conc PSA (PROSTATE SPECIFIC ANTIGEN) (V76.44) [facility] Work Phone: Start: 03-12-2018 Blood count complete auto&auto difrntl wbc CBC W/AUTO DIFF WBC (06324) [facility] Work Phone: Start: 02-28-2018 Hemoglobin A1c/Hemoglobin.total mass fraction (Bld) HGB A1C (38861) [facility] Work Phone: Comment on above: standing order for q4mo for one yr Start: 02-12-2018 Procedure Education Eprescribed prescriptions (G8553) [facility] Work Phone: Start: 02-12-2018 Provider Instructions for Treatment [facility] Work Phone: Start: 11-29-2017 Hemoglobin A1c/Hemoglobin.total mass fraction (Bld) HGB A1C (62247) [facility] Work Phone: Start: 11-06-2017 Provider Instructions for Treatment [facility] Work Phone: Start: 11-06-2017 25 hydroxy includes fractions if performed CALCIFIDIOL (41810) VIT D 25 [facility] Work Phone: Start: 11-06-2017 Thyrotropin Qn TSH (23316) [facility] Work Phone: Start: 11-06-2017 Urnls dip stick/tablet reagent auto microscopy URINALYSIS, W/ MICRO (23642) [facility] Work Phone: Start: 11-06-2017 Urine albumin quantitative MICROALBUMIN: CREATININE RATIO (82345) AND (92159) [facility] Work Phone: Start: 11-06-2017 Comprehensive metabolic panel METABOLIC PANEL, COMPREHENSIVE (06247) [facility] Work Phone: Start: 11-06-2017 Protein mass conc LIPOPROTEIN, BLD, BY NMR (28777) [facility] Work Phone: Start: 11-06-2017 Blood count complete auto&auto difrntl wbc CBC W/AUTO DIFF WBC (48746) [facility] Work Phone: Start: 10-31-2017 Hemoglobin A1c/Hemoglobin.total mass fraction (Bld) HGB A1C (65829) [facility] Work Phone: Comment on above: standing order for q4mo for one yr Start: 10-09-2017 Procedure Education Eprescribed prescriptions (G8553) [facility] Work Phone: Start: 10-02-2017 Provider Instructions for Treatment [facility] Work Phone: Start: 08-01-2017 Hemoglobin A1c/Hemoglobin.total mass fraction (Bld) HGB A1C (08282) [facility] Work Phone: Start: 07-03-2017 Procedure Education Eprescribed prescriptions (G8553) [facility] Work Phone: Start: 07-03-2017 Provider Instructions for Treatment [facility] Work Phone: Start: 07-03-2017 Hemoglobin A1c/Hemoglobin.total mass fraction (Bld) HGB A1C (41675) [facility] Work Phone: Comment on above: standing order for q4mo for one yr Start: 06-27-2017 Hemoglobin A1c/Hemoglobin.total mass fraction (Bld) HGB A1C (53311) [facility] Work Phone: Start: 02-27-2017 Procedure Education Eprescribed prescriptions (G8553) [facility] Work Phone: Start: 02-27-2017 Provider Instructions for Treatment [facility] Work Phone: Start: 02-27-2017 25 hydroxy includes fractions if performed CALCIFIDIOL (72389) VIT D 25 [facility] Work Phone: Start: 02-27-2017 Thyrotropin Qn TSH (03409) [facility] Work Phone: Start: 02-27-2017 Urnls dip stick/tablet reagent auto microscopy URINALYSIS, W/ MICRO (00748) [facility] Work Phone: Start: 02-27-2017 Urine albumin quantitative MICROALBUMIN: CREATININE RATIO (19697) AND (19287) [facility] Work Phone: Start: 02-27-2017 Comprehensive metabolic panel METABOLIC PANEL, COMPREHENSIVE (02399) [facility] Work Phone: Start: 02-27-2017 Lipid panel LIPID PANEL (70444) [facility] Work Phone: Start: 02-27-2017 Blood count complete auto&auto difrntl wbc CBC W/AUTO DIFF WBC (14008) [facility] Work Phone: Start: 12-05-2016 Provider Instructions for Treatment [facility] Work Phone: Start: 11-07-2016 Hemoglobin A1c/Hemoglobin.total mass fraction (Bld) HGB A1C (52192) [facility] Work Phone: Start: 11-07-2016 Provider Instructions for Treatment [facility] Work Phone: Start: 08-06-2016 Hemoglobin A1c/Hemoglobin.total mass fraction (Bld) HGB A1C (89832) [facility] Work Phone: Start: 08-06-2016 Provider Instructions for Treatment [facility] Work Phone: Start: 07-30-2016 Hemoglobin A1c/Hemoglobin.total mass fraction (Bld) HGB A1C (56705) [facility] Work Phone: Start: 05-16-2016 Provider Instructions for Treatment Follow up if no improvement or if symptoms worsen [facility] Work Phone: Start: 04-02-2016 25 hydroxy includes fractions if performed CALCIFIDIOL (18968) VIT D 25 [facility] Work Phone: Start: 04-02-2016 Hemoglobin A1c/Hemoglobin.total mass fraction (Bld) HGB A1C (60292) [facility] Work Phone: Start: 04-02-2016 Thyrotropin Qn TSH (86143) [facility] Work Phone: Start: 04-02-2016 Urnls dip stick/tablet reagent auto microscopy URINALYSIS, W/ MICRO (60210) [facility] Work Phone: Start: 04-02-2016 Urine albumin quantitative MICROALBUMIN: CREATININE RATIO (00453) AND (14714) [facility] Work Phone: Start: 04-02-2016 Comprehensive metabolic panel METABOLIC PANEL, COMPREHENSIVE (65833) [facility] Work Phone: Start: 04-02-2016 Lipid panel LIPID PANEL (44894) [facility] Work Phone: Start: 04-02-2016 Blood count complete auto&auto difrntl wbc CBC W/AUTO DIFF WBC (72338) [facility] Work Phone: Start: 04-02-2016 Provider Instructions for Treatment [facility] Work Phone: Start: 03-28-2016 Procedure Education Eprescribed prescriptions (G8553) [facility] Work Phone: Start: 03-12-2016 Hemoglobin A1c/Hemoglobin.total mass fraction (Bld) HGB A1C (66473) [facility] Work Phone: Start: 11-23-2015 Provider Instructions for Treatment [facility] Work Phone: Start: 11-23-2015 Hemoglobin A1c/Hemoglobin.total mass fraction (Bld) HGB A1C (67738) [facility] Work Phone: Start: 09-19-2015 Lipid panel Lipid Panel (59511) [facility] Work Phone: Start: 09-19-2015 Thyrotropin Qn TSH (89214) [facility] Work Phone: Start: 09-19-2015 Blood count complete auto&auto difrntl wbc CBC, Platelets & Auto Diff (07663) [facility] Work Phone: Start: 09-19-2015 Comprehensive metabolic panel Metabolic Panel, Comprehensive (54275) [facility] Work Phone: Start: 09-19-2015 25 hydroxy includes fractions if performed CALCIFEDIOL (53025) [facility] Work Phone: Start: 09-14-2015 Provider Instructions for Treatment [facility] Work Phone: Start: 08-17-2015 Procedure Education Eprescribed prescriptions (G8553) [facility] Work Phone: Start: 08-17-2015 Provider Instructions for Treatment [facility] Work Phone: Start: 08-17-2015 Hemoglobin A1c/Hemoglobin.total mass fraction (Bld) HGB A1C (57185) [facility] Work Phone: Start: 08-17-2015 Thyrotropin Qn TSH (19535) [facility] Work Phone: Start: 08-17-2015 Blood occult fecal hgb deter ia qual feces 1-3 FECAL OCCULT- Tubes sent home (10450) [facility] Work Phone: Start: 08-17-2015 25 hydroxy includes fractions if performed CALCIFIDIOL (03971) VIT D 25 [facility] Work Phone: Start: 08-17-2015 Urnls dip stick/tablet reagent auto microscopy URINALYSIS, W/ MICRO (27327) [facility] Work Phone: Start: 08-17-2015 Urine albumin quantitative MICROALBUMIN: CREATININE RATIO (82462) AND (15456) [facility] Work Phone: Start: 08-17-2015 Lipid panel LIPID PANEL (50370) [facility] Work Phone: Start: 03-23-2015 Procedure Education Eprescribed prescriptions (G8553) [facility] Work Phone: Start: 02-07-2015 Urnls dip stick/tablet rgnt non-auto w/o micrscp Urinalysis, Office (51973) [facility] Work Phone: Start: 02-07-2015 Culture bacterial quanttative colony count urine URINE YUE CULTURE (MALIA COL COUNT) (72134) [facility] Work Phone: Start: 02-07-2015 Patient Education Flu (Influenza) *: flu [facility] Work Phone: Start: 02-07-2015 Procedure Education Eprescribed prescriptions (G8553) [facility] Work Phone: Start: 06-07-2014 Assay of prostate specific antigen total PSA (PROSTATE SPECIFIC ANTIGEN) (V76.44) [facility] Work Phone: Start: 06-07-2014 Protein mass conc PSA (PROSTATE SPECIFIC ANTIGEN) (V76.44) [facility] Work Phone: Start: 06-07-2014 Urnls dip stick/tablet reagent auto microscopy URINALYSIS, W/ MICRO (87443) [facility] Work Phone: Start: 06-07-2014 Blood count complete auto&auto difrntl wbc CBC W/AUTO DIFF WBC (45439) [facility] Work Phone: Start: 06-07-2014 Comprehensive metabolic panel METABOLIC PANEL, COMPREHENSIVE (88184) [facility] Work Phone: Start: 01-18-2014 Culture bct isol&prsmptv id isolate ea urine URINE YUE CULTURE-IDENTIFICATN (38900) [facility] Work Phone: Start: 01-18-2014 Procedure Education Eprescribed prescriptions (G8553) [facility] Work Phone: Start: 10-19-2013 Provider Instructions for Treatment [facility] Work Phone: Start: 09-21-2013 Assay of prostate specific antigen total PSA (PROSTATE SPECIFIC ANTIGEN) (V76.44) [facility] Work Phone: Start: 09-21-2013 Protein mass conc PSA (PROSTATE SPECIFIC ANTIGEN) (V76.44) [facility] Work Phone: Start: 09-21-2013 Urnls dip stick/tablet reagent auto microscopy URINALYSIS, W/ MICRO (38103) [facility] Work Phone: Start: 09-21-2013 Blood count manual cell count each CBC WITH MANUAL DIFF (68092) [facility] Work Phone: Start: 09-21-2013 Comprehensive metabolic panel METABOLIC PANEL, COMPREHENSIVE (11938) [facility] Work Phone: Start: 09-21-2013 Procedure Education Eprescribed prescriptions (G8553) [facility] Work Phone: Start: 05-18-2013 Thyrotropin Qn TSH (56928) [facility] Work Phone: Start: 05-18-2013 Blood count manual cell count each CBC WITH MANUAL DIFF (99833) [facility] Work Phone: Start: 04-24-2013 Blood count manual cell count each CBC WITH MANUAL DIFF (25040) [facility] Work Phone: Start: 04-24-2013 Thyrotropin Qn TSH (84224) [facility] Work Phone: Start: 04-24-2013 Assay of serotonin SEROTONIN (06047) [facility] Work Phone: Start: 04-24-2013 Metanephrines METANEPHRINES - URINE (09299) [facility] Work Phone: Start: 04-24-2013 Catecholamines total urine CATECHOLAMINES TOTAL, URINE (43856) [facility] Work Phone: Start: 04-24-2013 Assay of vanillylmandelic acid urine URINE VMA (60674) [facility] Work Phone: Start: 01-07-2013 Patient Education Flu (Influenza) *: flu [facility] Work Phone: Start: 12-17-2012 Provider Instructions for Treatment Follow up if no improvement or if symptoms worsen [facility] Work Phone: Start: 12-03-2012 Assay of prostate specific antigen total PSA (PROSTATE SPECIFIC ANTIGEN) (04074) [facility] Work Phone: Start: 12-03-2012 Protein mass conc PSA (PROSTATE SPECIFIC ANTIGEN) (66875) [facility] Work Phone: Start: 12-03-2012 Comprehensive metabolic panel Metabolic Panel, Comprehensive (95797) [facility] Work Phone: Start: 12-03-2012 Blood count manual cell count each CBC with manual diff (83036) [facility] Work Phone: Start: 12-03-2012 Urinalysis qual/semiquant except immunoassays URINALYSIS (29363) [facility] Work Phone: Start: 12-03-2012 Lipid panel Lipid Panel (15903) [facility] Work Phone: Start: 12-02-2012 Provider Instructions for Treatment Follow up in 2 weeks [facility] Work Phone: Start: 12-02-2012 Comprehensive metabolic panel Metabolic Panel, Comprehensive (99217) [facility] Work Phone: Comment on above: to be done in 1-2 weeks Start: 09-23-2012 Provider Instructions for Treatment Follow up in 2 weeks [facility] Work Phone: Start: 07-14-2012 Cul bact xcpt urine blood/stool aerobic isol YUE CULTURE-OTHER (51135) [facility] Work Phone: Start: 07-14-2012 Patient Education Sore throat: diagnosis and treatment [facility] Work Phone: Start: 07-14-2012 Provider Instructions for Treatment Follow up if no improvement or if symptoms worsen [facility] Work Phone: Start: 03-03-2012 Patient Education Allergic Rhinitis *: allergies [facility] Work Phone: Start: 02-13-2012 S. pyogenes Ag IA Ql (Unsp spec) Rapid Strep Test, Office (49246) [facility] Work Phone: Start: 02-13-2012 Patient Education Sore throat: diagnosis and treatment [facility] Work Phone: Start: 02-13-2012 Provider Instructions for Treatment Follow up if no improvement or if symptoms worsen [facility] Work Phone: Start: 10-31-2011 Lipid panel LIPID PANEL (30340) [facility] Work Phone: Start: 10-31-2011 Blood count manual cell count each CBC WITH MANUAL DIFF (99081) [facility] Work Phone: Start: 10-31-2011 Comprehensive metabolic panel METABOLIC PANEL, COMPREHENSIVE (25574) [facility] Work Phone: Start: 10-31-2011 Urnls dip stick/tablet reagent auto microscopy URINALYSIS, W/ MICRO (73878) [facility] Work Phone: Start: 10-31-2011 Patient Education High Blood Pressure (Essential Hypertension) *: blood pressure [facility] Work Phone: Start: 10-31-2011 Provider Instructions for Treatment Follow up in 4 months [facility] Work Phone: Start: 05-04-2011 Provider Instructions for Treatment [facility] Work Phone: Start: 01-29-2011 25 hydroxy includes fractions if performed Vitamin D Hydroxy (41110) [facility] Work Phone: Start: 01-29-2011 Urnls dip stick/tablet reagent auto microscopy URINALYSIS, W/ MICRO (63472) [facility] Work Phone: Start: 01-29-2011 Comprehensive metabolic panel METABOLIC PANEL, COMPREHENSIVE (95303) [facility] Work Phone: Start: 01-29-2011 Lipid panel LIPID PANEL (82884) [facility] Work Phone: Start: 01-29-2011 Assay of prostate specific antigen total PSA (PROSTATE SPECIFIC ANTIGEN) (V76.44) [facility] Work Phone: Start: 01-29-2011 Protein mass conc PSA (PROSTATE SPECIFIC ANTIGEN) (V76.44) [facility] Work Phone: Start: 01-29-2011 Blood count manual cell count each CBC WITH MANUAL DIFF (99094) [facility] Work Phone: Start: 10-24-2010 Blood count manual cell count each CBC WITH MANUAL DIFF (67833) [facility] Work Phone: Start: 10-24-2010 Iron binding capacity IRON BINDING CAPACITY (TIBC) (29928) [facility] Work Phone: Start: 10-24-2010 Ferritin mass conc FERRITIN (62050) [facility] Work Phone: Start: 10-24-2010 Iron mass conc IRON (52992) [facility] Work Phone: Start: 06-19-2010 Blood count manual cell count each CBC WITH MANUAL DIFF (78045) [facility] Work Phone: Start: 06-19-2010 Lipid panel LIPID PANEL (72496) [facility] Work Phone: Start: 06-19-2010 Comprehensive metabolic panel METABOLIC PANEL, COMPREHENSIVE (46792) [facility] Work Phone: Start: 06-19-2010 Iron binding capacity IRON BINDING CAPACITY (TIBC) (48936) [facility] Work Phone: Start: 06-19-2010 Ferritin mass conc FERRITIN (83112) [facility] Work Phone: Start: 06-19-2010 Iron mass conc IRON (50886) [facility] Work Phone: Start: 03-06-2010 25 hydroxy includes fractions if performed Vitamin D Hydroxy (75744) [facility] Work Phone: Start: 03-06-2010 Blood count manual cell count each CBC WITH MANUAL DIFF (88927) [facility] Work Phone: Start: 03-06-2010 Ferritin mass conc FERRITIN (58776) [facility] Work Phone: Start: 03-06-2010 Iron binding capacity IRON BINDING CAPACITY (TIBC) (45017) [facility] Work Phone: Start: 03-06-2010 Iron mass conc IRON (61641) [facility] Work Phone: Start: 03-06-2010 Assay of prostate specific antigen total PSA (PROSTATE SPECIFIC ANTIGEN) (V76.44) [facility] Work Phone: Start: 03-06-2010 Protein mass conc PSA (PROSTATE SPECIFIC ANTIGEN) (V76.44) [facility] Work Phone: Start: 11-09-2009 Assay of folic acid serum FOLIC ACID SERUM (01003) [facility] Work Phone: Start: 11-09-2009 Cobalamin (Vitamin B12) mass conc VITAMIN B-12 (CYANOCOBALAMIN) (62602) [facility] Work Phone: Start: 11-09-2009 Blood count reticulocyte automated RETICULOCYTE COUNT MANU (51985) [facility] Work Phone: Start: 11-09-2009 Lactate dehydrogenase ldh LDH (LD) (LACTATE DEHYDROGENASE) (74985) [facility] Work Phone: Start: 11-09-2009 Iron binding capacity IRON BINDING CAPACITY (TIBC) (76963) [facility] Work Phone: Start: 11-09-2009 Ferritin mass conc FERRITIN (59787) [facility] Work Phone: Start: 11-09-2009 Iron mass conc IRON (90546) [facility] Work Phone: Start: 11-09-2009 Blood count complete auto&auto difrntl wbc CBC, PLATELETS & AUT DIFF (65864) [facility] Work Phone: Start: 10-06-2009 Provider Instructions for Treatment [facility] Work Phone: Start: 09-29-2009 Provider Instructions for Treatment FOLLOW UP IN 1 WEEK [facility] Work Phone: Start: 09-29-2009 Comprehensive metabolic panel Metabolic Panel, Comprehensive (54859) [facility] Work Phone: Start: 09-29-2009 Blood count manual cell count each CBC with manual diff (13561) [facility] Work Phone: Start: 09-29-2009 Hepatic function panel HEPATIC FUNCTION PANEL (24469) [facility] Work Phone: Start: 07-19-2009 Blood count manual cell count each CBC WITH MANUAL DIFF (65214) [facility] Work Phone: Start: 07-19-2009 Comprehensive metabolic panel METABOLIC PANEL, COMPREHENSIVE (75578) [facility] Work Phone: Start: 02-08-2009 CRP mass conc C-REACTIVE PROTEIN (60856) [facility] Work Phone: Start: 02-08-2009 Sedimentation rate rbc non-automated SED RATE ERYTHROCYTE (43725) [facility] Work Phone: Start: 02-08-2009 Rheumatoid factor quantitative RHEUMATOID FACTOR-QUANT (45070) [facility] Work Phone: Start: 02-08-2009 Nuclear Ab IF titer (S) THERESA (ANTINUCLEAR ANTIBODY) (88190) [facility] Work Phone: Start: 01-11-2009 Assay of prostate specific antigen total PSA (PROSTATE SPECIFIC ANTIGEN) (V76.44) [facility] Work Phone: Start: 01-11-2009 Protein mass conc PSA (PROSTATE SPECIFIC ANTIGEN) (V76.44) [facility] Work Phone: Start: 01-11-2009 Urnls dip stick/tablet reagent auto microscopy URINALYSIS, W/ MICRO (73062) [facility] Work Phone: Start: 01-11-2009 Lipid panel LIPID PANEL (30525) [facility] Work Phone: Start: 01-11-2009 Thyrotropin Qn TSH (41848) [facility] Work Phone: Start: 01-11-2009 Comprehensive metabolic panel METABOLIC PANEL, COMPREHENSIVE (19629) [facility] Work Phone: Start: 01-11-2009 Blood count manual cell count each CBC WITH MANUAL DIFF (11814) [facility] Work Phone: Start: 12-29-2008 Provider Instructions for Treatment [facility] Work Phone: Start: 12-14-2008 Provider Instructions for Treatment [facility] Work Phone: Start: 11-30-2008 Provider Instructions for Treatment FOLLOW UP IN 2 WEEKS [facility] Work Phone: Start: 11-30-2008 Basic metabolic panel calcium total Metabolic Panel, Basic (05885) [facility] Work Phone: Start: 11-20-2007 Hepatic function panel HEPATIC FUNCTION PANEL (52593) [facility] Work Phone: Comment on above: q month for 2 months Start: 11-20-2007 Cobalamin (Vitamin B12) mass conc VITAMIN B-12 (CYANOCOBALAMIN) (38712) [facility] Work Phone: Start: 11-20-2007 Blood count reticulocyte automated RETICULOCYTE COUNT MANUL (96843) [facility] Work Phone: Start: 11-20-2007 Lactate dehydrogenase ldh LDH (LD) (LACTATE DEHYDROGENASE) (61444) [facility] Work Phone: Start: 11-20-2007 Iron binding capacity IRON BINDING CAPACITY (TIBC) (10677) [facility] Work Phone: Start: 11-20-2007 Iron mass conc IRON (55209) [facility] Work Phone: Start: 10-28-2007 Blood count manual cell count each CBC WITH MANUAL DIFF (92712) [facility] Work Phone: Start: 10-28-2007 Hepatic function panel HEPATIC FUNCTION PANEL (69670) [facility] Work Phone: Start: 06-09-2007 Thyrotropin Qn TSH (58792) [facility] Work Phone: Start: 06-09-2007 Lipid panel LIPID PANEL (58825) [facility] Work Phone: Start: 06-09-2007 Comprehensive metabolic panel METABOLIC PANEL, COMPREHENSIVE (73895) [facility] Work Phone: Start: 06-09-2007 Blood count manual cell count each CBC WITH MANUAL DIFF (55040) [facility] Work Phone: Start: 06-09-2007 Assay of prostate specific antigen total PSA (PROSTATE SPECIFIC ANTIGEN) (V76.44) [facility] Work Phone: Start: 06-09-2007 Protein mass conc PSA (PROSTATE SPECIFIC ANTIGEN) (V76.44) [facility] Work Phone: Start: 01-27-2007 Provider Instructions for Treatment Antidepressant Usage [facility] Work Phone: Start: 01-13-2007 aPTT Coag time (Bld) PTT (Activated Partial Thromboplastin Time) (55372) [facility] Work Phone: Start: 01-13-2007 Prothrombin time (PT) Coag time (PPP) PT (Prothrobim Time) (57020) [facility] Work Phone: Start: 01-13-2007 Thyrotropin Qn TSH (98816) [facility] Work Phone: Start: 01-13-2007 Comprehensive metabolic panel METABOLIC PANEL, COMPREHENSIVE (64255) [facility] Work Phone: Start: 01-13-2007 Blood count manual cell count each CBC WITH MANUAL DIFF (60498) [facility] Work Phone: Start: 01-13-2007 Cobalamin (Vitamin B12) mass conc VITAMIN B-12 (CYANOCOBALAMIN) (48497) [facility] Work Phone: Start: 10-21-2006 CRP mass conc C-REACTIVE PROTEIN (68926) [facility] Work Phone: Start: 10-21-2006 Lipid panel LIPID PANEL (69598) [facility] Work Phone: Start: 10-21-2006 Thyrotropin Qn TSH (34703) [facility] Work Phone: Start: 10-21-2006 Blood count manual cell count each CBC WITH MANUAL DIFF (91974) [facility] Work Phone: Start: 10-21-2006 Comprehensive metabolic panel METABOLIC PANEL, COMPREHENSIVE (00751) [facility] Work Phone: Start: 10-21-2006 Urnls dip stick/tablet rgnt auto w/o microscopy URINALYSIS W/O MICRO (90152) [facility] Work Phone: Start: 01-07-2006 Blood occult peroxidase actv qual feces 1 deter Stool Guiac, Office (79849) [facility] Work Phone: CBC W Auto Different ial panel - Blood [facility] Comprehensive metabo lic 2000 panel - Serum or Plasma [facility] Hemoglobin A1c/Hemoglobin.total in Blood [facility] Lipid 1996 panel - S berry or Plasma [facility] Patient referral [facility] Work Phone: Prostate specific an tigen measurement [facility] Work Phone: Thyroid stimulating hormone measurement [facility] Vitamin D, 25-hydrox y measurement [facility] Work Phone: [facility] Work Phone: [facility] Work Phone: [facility] Work Phone: [facility] Work Phone: [facility] Work Phone[facility] Work Phone: [facility] Work Phone: [facility] Work Phone[facility] Work Phone: [facility] Work Phone[facility] Work Phone[facility] Work Phone: [facility] Work Phone: [facility] Work Phone: [facility] Work Phone[facility] Work Phone: [facility] Work Phone: [facility] Work Phone[facility] Work Phone: [facility] Work Phone: [facility] Work Phone: [facility] Work Phone: [facility] Work Phone[facility] Work Phone: [facility] Work Phone: [facility] Work Phone: [facility] Work Phone: [facility] Work Phone: [facility] Work Phone: [facility] Work Phone: [facility] Work Phone: [facility] Work Phone: Immunizations Immunization Date Immunization Notes Care Provider [facility] 08-11-2019 tetanus toxoid, redu traci diphtheria toxoid, and acellular pertussis vaccine, adsorbed Dr. Latesha Zafar Work Phone: [facility] Payers Date Payer Category Payer Medicare [id number] 2024 Unknown [id number] 2023 Self-pay [id number] 2023 Unknown [id number] 2016 Unknown [id number] 2005 Unknown [id number] 1960 Unknown [id number] Unknown [facility] [place] [facility] [place] Unknown [facility] [id number] Unknown [id number] Unknown [id number] Unknown [id number] Unknown [id number] Unknown [id number] Unknown [id number] Unknown [id number] Unknown [id number] Unknown [id number] Social History Date Type Detail Facility Caffeine Use Never smoker [facility] Work Phone: Comment on above: 7 QD 10/24/10, 05/04/11 Tobacco use: Never smoker. [facility] Work Phone: Start: 09-20-2021 End: 03-20-2023 Tobacco smoking status [facility] Unknown if ever smoked [facility] Start: 10-15-2018 Non-smoker [facility] Start: 1960 Sex Assigned At Male W [facility] Start: 03-20-2023 End: 03-20-2023 Tobacco smoking status MEIS Never smoked tobacco (finding) [facility] Sex Male [facility] Medical Equipment Procedure Code Equipment Code Equipment Origin al Text Equipment Identifier Dates FIBERLOOP, 2 7234 FDA Start: 08-08-2018 KIT,PROX TENODESIS FDA Start: 08-08-2018 SPEEDBRIDGE 4.75 FDA Start: 08-08-2018 ANCHOR,5.5MM BIO CORK 2 FDA Start: 10-22-2018 ANCHOR,5.5MM BIO CORK 2 FDA Start: 10-22-2018 KIT,PROX TENODESIS FDA Start: 10-22-2018 SWIVELOCK,4.75 D OUBLE LOCK FDA Start: 10-22-2018 SWIVELOCK,4.75 D OUBLE LOCK FDA Start: 10-22-2018 FIBERLOOP, 2 7234 FDA Start: 08-08-2018 KIT,PROX TENODESIS FDA Start: 08-08-2018 SPEEDBRIDGE 4.75 FDA Start: 08-08-2018 ANCHOR,5.5MM BIO CORK 2 FDA Start: 10-22-2018 ANCHOR,5.5MM BIO CORK 2 FDA Start: 10-22-2018 KIT,PROX TENODESIS FDA Start: 10-22-2018 SWIVELOCK,4.75 D OUBLE LOCK FDA Start: 10-22-2018 SWIVELOCK,4.75 D OUBLE LOCK FDA Start: 10-22-2018 FIBERLOOP, 2 7234 FDA Start: 08-08-2018 KIT,PROX TENODESIS FDA Start: 08-08-2018 SPEEDBRIDGE 4.75 FDA Start: 08-08-2018 ANCHOR,5.5MM BIO CORK 2 FDA Start: 10-22-2018 ANCHOR,5.5MM BIO CORK 2 FDA Start: 10-22-2018 KIT,PROX TENODESIS FDA Start: 10-22-2018 SWIVELOCK,4.75 D OUBLE LOCK FDA Start: 10-22-2018 SWIVELOCK,4.75 D OUBLE LOCK FDA Start: 10-22-2018 FIBERLOOP, 2 7234 FDA Start: 08-08-2018 KIT,PROX TENODESIS FDA Start: 08-08-2018 SPEEDBRIDGE 4.75 FDA Start: 08-08-2018 ANCHOR,5.5MM BIO CORK 2 FDA Start: 10-22-2018 ANCHOR,5.5MM BIO CORK 2 FDA Start: 10-22-2018 KIT,PROX TENODESIS FDA Start: 10-22-2018 SWIVELOCK,4.75 D OUBLE LOCK FDA Start: 10-22-2018 SWIVELOCK,4.75 D OUBLE LOCK FDA Start: 10-22-2018 FIBERLOOP, 2 7234 FDA Start: 08-08-2018 KIT,PROX TENODESIS FDA Start: 08-08-2018 SPEEDBRIDGE 4.75 FDA Start: 08-08-2018 ANCHOR,5.5MM BIO CORK 2 FDA Start: 10-22-2018 ANCHOR,5.5MM BIO CORK 2 FDA Start: 10-22-2018 KIT,PROX TENODESIS FDA Start: 10-22-2018 SWIVELOCK,4.75 D OUBLE LOCK FDA Start: 10-22-2018 SWIVELOCK,4.75 D OUBLE LOCK FDA Start: 10-22-2018 FIBERLOOP, 2 7234 FDA Start: 08-08-2018 KIT,PROX TENODESIS FDA Start: 08-08-2018 SPEEDBRIDGE 4.75 FDA Start: 08-08-2018 ANCHOR,5.5MM BIO CORK 2 FDA Start: 10-22-2018 ANCHOR,5.5MM BIO CORK 2 FDA Start: 10-22-2018 KIT,PROX TENODESIS FDA Start: 10-22-2018 SWIVELOCK,4.75 D OUBLE LOCK FDA Start: 10-22-2018 SWIVELOCK,4.75 D OUBLE LOCK FDA Start: 10-22-2018 FIBERLOOP, 2 7234 FDA Start: 08-08-2018 KIT,PROX TENODESIS FDA Start: 08-08-2018 SPEEDBRIDGE 4.75 FDA Start: 08-08-2018 ANCHOR,5.5MM BIO CORK 2 FDA Start: 10-22-2018 ANCHOR,5.5MM BIO CORK 2 FDA Start: 10-22-2018 KIT,PROX TENODESIS FDA Start: 10-22-2018 SWIVELOCK,4.75 D OUBLE LOCK FDA Start: 10-22-2018 SWIVELOCK,4.75 D OUBLE LOCK FDA Start: 10-22-2018 FIBERLOOP, 2 7234 FDA Start: 08-08-2018 KIT,PROX TENODESIS FDA Start: 08-08-2018 SPEEDBRIDGE 4.75 FDA Start: 08-08-2018 ANCHOR,5.5MM BIO CORK 2 FDA Start: 10-22-2018 ANCHOR,5.5MM BIO CORK 2 FDA Start: 10-22-2018 KIT,PROX TENODESIS FDA Start: 10-22-2018 SWIVELOCK,4.75 D OUBLE LOCK FDA Start: 10-22-2018 SWIVELOCK,4.75 D OUBLE LOCK FDA Start: 10-22-2018 FIBERLOOP, 2 7234 FDA Start: 08-08-2018 KIT,PROX TENODESIS FDA Start: 08-08-2018 SPEEDBRIDGE 4.75 FDA Start: 08-08-2018 ANCHOR,5.5MM BIO CORK 2 FDA Start: 10-22-2018 ANCHOR,5.5MM BIO CORK 2 FDA Start: 10-22-2018 KIT,PROX TENODESIS FDA Start: 10-22-2018 SWIVELOCK,4.75 D OUBLE LOCK FDA Start: 10-22-2018 SWIVELOCK,4.75 D OUBLE LOCK FDA Start: 10-22-2018 FIBERLOOP, 2 7234 FDA Start: 08-08-2018 KIT,PROX TENODESIS FDA Start: 08-08-2018 SPEEDBRIDGE 4.75 FDA Start: 08-08-2018 ANCHOR,5.5MM BIO CORK 2 FDA Start: 10-22-2018 ANCHOR,5.5MM BIO CORK 2 FDA Start: 10-22-2018 KIT,PROX TENODESIS FDA Start: 10-22-2018 SWIVELOCK,4.75 D OUBLE LOCK FDA Start: 10-22-2018 SWIVELOCK,4.75 D OUBLE LOCK FDA Start: 10-22-2018 Goals Date Patient Goal Desired Activity /State Mental Status Date Assessment Result Facility 01-25-2022 Cognitive function Voice/Name [facility] Work Phone: Clinical Notes 07-29-2024 to 12-15-2024 Note Date & Type Note Facility 12-15-2024 Progress note [facility] 09-09-2024 Evaluation note Diagnosis Onset Date Resolution Hemosiderin pigmentation of lower extremity due to varicose veins acute September 09, 2024 1:36pm Obesity chronic December 15, 2024 8:44am KAYLEE (obstructive sleep apnea) chronic December 15 8:44am [facility] Work Phone: 1(478) 992-947906-19-2025 Radiology Diagnostic study note [facility] Imaging Services [address] [place] [address] Tibia & Fibula 2 Views MR#: [id number] Acct: [id number] Name: WILLA MORROW JrLaina Rep #: [id number] : [id number] M 63 From: [facility] [employer] Peer DO PCP: Dr. Latesha Zafar MD Status: REG CLI Study:Tibia & Fibula 2 Views Date of Exam: 08/12/24 Exam# [id number] Ordering Dr: Win Valenzuela DPM PROCEDURE: TIBIA FIBULA 2 VIEWS 08/12/2024 REASON FOR EXAM: CALCINOSIS CUTIS TECHNIQUE: TIBIA FIBULA 2 VIEWS FINDINGS: RIGHT CALCANEUS: Normal bone mineralization. No evidence of fracture. No focal osseous lesion. Subtalar joint is unremarkable. Alignment is preserved. Scattered soft tissue calcifications seen in the leg, likely phleboliths. No cutaneous calcification identified RAD/Tibia & Fibula 2 Views IMPRESSION: Soft tissue calcifications, nonspecified, likely phleboliths. The calcifications are in the sub cutaneous fat overlying the muscles No evidence of skin calcification as would be seen with calcinosis cutis Reading Location: [facility]- CC: OCTAVIO Valenzuela; Dr. Latesha Zafar MD ~ Air Twister Winder: Signed [facility]06-04-2025 Evaluation note* Diagnosis Onset Date Resolution Status Admit Date Actinic keratosis of scalp acute July 29, 2024 7:51am Diabetes acute July 29, 2024 7:51am Skin lesion of chest wall acute July 29, 2024 7:51am Vitamin D deficiency acute July 29, 2024 7:51am HTN (hypertension) chronic July 292024 7:51am Obesity chronic July 29, 2024 7:51am KAYLEE (obstructive sleep apnea) chroni c July 29, 2024 7:51am [facility] Work Phone: Evaluation note* Diagnosis Onset Date Resolution Status BMI greater than 40 chronic KAYLEE (obstructive sleep apnea) chronic Acute maxillary sinusitis, unspecified acute Tinea pedis acute Actinic keratoses acute Diabetes acute GERD with apnea acute Osteoarthritis acute Vitamin D deficiency acute BMI greater than 40 chronic Hiatal hernia chronic HTN (hypertension) chronic KAYLEE (obstructive sleep apnea) chronic [facility] Work Phone: Evaluation note* Diagnosis Onset Date Resolution Status GERD (gastroesophageal reflux disease) acute Hiatal hernia chronic Obesity due to excess calories acute KAYLEE (obstructive sleep apnea) chronic [facility] Work Phone: Evaluation note* Diagnosis Onset Date Resolution Status Actinic keratosis of scalp a cute Diabetes acute Osteoarthritis acute BMI greater than 40 chronic GERD (gastroesophageal reflux disease) chronic HTN (hypertension) chronic Rheumatoid arthritis chronic [facility] Work Phone: Evaluation note* Diagnosis Onset Date Resolution Status Obesity due to excess calories acute KAYLEE (obstructive sleep apnea) chronic Diabetes acute Elevated hemoglobin A1c acut e HTN (hypertension) chronic KAYLEE (obstructive sleep apnea) chronic Rheumatoid arthritis chronic [facility] Work Phone: Evaluation noteNo assessment information available [facility] Work Phone: Evaluation note* Diagnosis Onset Date Resolution Status Admit Date Actinic keratosis of scalp acute July 29, 2024 7:51am [facility] Work Phone: Hospital Discharge instructionsAmbulatory Orders* Dermatology Location: None [facility] Work Phone: Progress note Author Neyda Coley [facility] Note Date/Time December 15, 2024 1 0:10am [facility] [address] [place] [address] OFFICE VISIT Date of Service: 12/15/24 MR#: [id number] Acct: [id number] Name: WILLA MORROW Jr. Rep #: [id number] : 1960 Provider: SHANON Coley Age/Sex: 64/M [place] [facility] Status: Signed Assessment and Plan Assessment and Plan (1) KAYLEE (obstructive sleep apnea): Status: Chronic Comment: BiPAP 14/10 cmH2O Plan: Stable, he is using and benefiting from Pap therapy. No indication for titration study at this time. Contact the office for any new or worsening symptoms in the meantime. Follow-up in 1 year. (2) Obesity: Status: Chronic Qualifiers: Obesity type: due to excess calories Obesity classification: adult class 3 (BMI >= 40) Serious obesity comorbidity presence: with serious comorbidity Body mass index: BMI 40.0-44.9 Qualified Code(s): E66.813 - Obesity, class 3; E66.01 - Morbid (severe) obesity due to excess calories; Z68.41 - Body mass index [BMI] 40.0-44.9, adult Plan: Complicates exam, plan, care and prognosis. Continue to encourage weight loss. Plan Details Additional Comments: This note was generated with [employer] software. It may contain incorrect words, spelling, and punctuation that were not noted in checking the note before signing. Portions of this documentation have been copied and pasted from previous office visit notes to provide a cohesive continuity of the history. The note has been reviewed, edited, and updated, as necessary. Follow Up: 1 Year HPI 1 Y FU Chief Complaint: routine follow up HPI Comments Details: This patient presents to the office today to follow-up on his obstructive sleep apnea. He is ambulatory and on room air. He has not been seen in the ED or urgent care for any respiratory illnesses since his last office visit. He has not required any antibiotics or prednisone for any breathing problems. He denies any difficulty with shortness of breath. He denies any cough, sputum production or hemoptysis. He has not had any wheezing, chest tightness, chest pain or palpitations. He also denies any fever, chills or body aches. 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 He denies any difficulty with dry mouth, nocturia, morning headaches or mask leaks. He is not requiring naps. He is not nodding off to sleep unintentionally. Compliance report for the past 30 days shows 100% compliance with an average use of 9 hours and 34 minutes per night. Current setting is 14/10 cmH2O with a residual AHI of 0.7 events per hour. Leaks do not appear to be an issue. Intake Vital Signs 07/29/24 07:56 12/15/24 08:49 Height 5 ft 5 in 5 ft 5 in Weight: 269 lb BMI 44.7 BP 150/89 H Blood Pressure Location Lt brachial Position Sitting Respiration 18 Pulse 78 Pulse Source Monitor Temp 97.4 F L Temperature Source Temporal Artery Pulse Oximetry (%) 98 Oxygen Delivery Method room air Intake Visit Reasons: 1 Y FU 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: No DME Vendor: [employer] Accompanied by: Self Is patient in pain?: No Allergies adhesive tape Allergy (Verified 12/15/24 08:47) Rash codeine Allergy (Verified 12/15/24 08:47) Hives gabapentin (From Neurontin) Allergy (Verified 12/15/24 08:47) Hives hydrocodone (From Vicodin) Allergy (Verified 12/15/24 08:47) unknown Sulfa (Sulfonamide Antibiotics) Allergy (Verified 12/15/24 08:47) Rash Medications ?Medication ?Instructions ?Recorded ?Confirmed ?Type aspirin 81 mg tablet,delayed 81 mg PO DAILY 06/04/18 1 History release (Adult Low Dose Aspirin) acetaminophen 650 mg 650 mg PO PRN PRN Pain 03/2212/15/24 History tablet,extended release (Tylenol Arthritis Pain) losartan 50 mg tablet 50 mg PO DAILY #90 tabs 11/2612/15/24 Rx pantoprazole 40 mg tablet,delayed 40 mg PO QAM #90 tab s 04/20/24 12/15/24 Rx release cholecalciferol (vitamin D3) 25 2,000 unit PO DAILY 12/15/24 History mcg (1,000 unit) capsule diphenhydramine HCl 25 mg capsule 25 mg PO QHS PRN 12/15/24 History (Allergy (diphenhydramine)) duloxetine 60 mg capsule,delayed 60 mg PO QDAY 5 12/15/24 History release irbesartan 150 mg tablet (Avapro) 150 mg PO QDAY 09/0712/15/24 History levocetirizine 5 mg tablet 5 mg PO QPM 09/07/24 History Have you fallen in the past year?: No PFSH Medical History (Reviewed 12/15/24 @ 08:56 by Neyda Coley [employer], [employer]) Skin lesion of chest wall Wears contact lenses Wears glasses Diabetes Rheumatoid arthritis Arthritis Back pain Migraine headache History of hiatal hernia Gastric reflux Non-smoker CPAP (continuous positive airway pressure) dependence Redness of skin History of edema Hypertension Cardiology follow-up encounter Tinea pedis Acute maxillary sinusitis, unspecified BPV (benign positional vertigo) Rosacea KAYLEE (obstructive sleep apnea) Vitamin D deficiency Immunocompromised Eosinophilia, unspecified GERD with apnea Osteoarthritis Diaphragmatic hernia without obstruction Cervical radiculopathy Carotid stenosis Raynauds syndrome Radiculopathy of leg Daytime somnolence Tendonitis, Achilles, right Inversion sprain of right ankle Actinic keratosis Seizures Hay fever Diabetes HTN (hypertension) Surgical History (Reviewed 12/15/24 @ 08:56 by Neyda Coley [employer], [employer]) History of cardiac catheterization Hx of knee surgery History of vasectomy H/O repair of rotator cuff Family History (Reviewed 12/15/24 @ 08:56 by Neyda Coley [employer], [employer]) Father Sepsis ETOH abuse Mother Diabetes Hypertension Other Heart disease Osteoporosis Social History (Reviewed 12/15/24 @ 08:56 by Neyda Coley [employer], [employer]) Smoking Status: Never smoker alcohol intake: current alcohol intake frequency: holidays/special occasions only Alcohol type: wine substance use type: does not use what type of physical activity do you participate in: none Review of Systems Resp Respiratory: Yes as per HPI Exam Const Constitutional: Positive conversant, cooperative, in no acute respiratory distress, healthy appearing, well developed, well nourished, good hygiene and obese Head Head: Yes normocephalic, Yes atraumatic and No cyanosis of lips/distal nose Eyes Eye: Positive clear conjunctiva; Negative nystagmus or scleral abnormality Ears Ear: Positive hearing normal and external ears normal Nose Nose: Yes external nose normal Mouth Mouth: Positive oral mucosae normal Neck Neck: Positive normal visual inspection, full ROM and trachea midline Chest Wall Chest: Positive normal inspection of the chest and symmetric chest movement; Negative increased A/P diameter Resp lung sounds: Positive clear to auscultation, good air exchange, normal expiratory time and normal respiratory effort; Negative diminished lung sounds, wheezes, rhonchi or rales Cardio Cardiac: Positive regular rate, regular rhythm, S1 normal and S2 normal; Negative murmur GI GI: Positive obese Musc Musculoskeletal: Positive steady gait and ROM normal; Negative kyphosis or scoliosis Skin Pulmonary Skin Exam: Positive intact; Negative lesion, rash or ulcers Extremities Extremities: No clubbing, No cyanosis and No edema Neuro Neurologic: Yes no focal neuro deficits, Yes conversant, Yes cooperative, Yes normal cognition, Yes normal coordination, Yes normal concentration and Yes understands questions Psych Appearance: Positive grossly normal, eye contact and well kempt Mental Status: Positive mental status grossly normal Mood: Positive congruent mood Affect: Positive normal affect Coding Level of Care Code Off vis,est,level 3 Diagnoses KAYLEE (obstructive sleep apnea) G47.33 Class 3 severe obesity due to excess calories with serious comorbidity and body mass index (BMI) of 40.0 to 44.9 in adult E66.813; E66.01; Z68.41 Obesity type: due to excess calories Obesity classification: adult class 3 (BMI >= 40) Serious obesity comorbidity presence: with serious comorbidity Body mass index: BMI 40.0-44.9 Clinical Quality Measures Falls Risk Screening/Assistive Devices Have you fallen in the past year?: No 12/15/24 0911 <Electronically signed by Neyda cline [employer]> Date _ Neyda Coley [employer] Cosigner Signature: Date (if applicable) CC: Dr. Latesha Zafar MD ~ [facility] Work Phone: Reason for referral (narrative)No reason for referral information availableWPremier Health [facility] Work Phone: Family History Unknown Family Member Name Dates Details Father Comments:Septic, ETOH, Hole intestine, of unknown cause Status:Active Mother Comments:DM, HTN, OA of hip, CABG X 5 Status:Active Unknown Family Member Name Dates Details Father Comments:Septic, ETOH, Hole intestine, of unknown cause Status:Active Mother Comments:DM, HTN, OA of hip, CABG X 5 Status:Active Unknown Family Member Name Dates Details Father Comments:Septic, ETOH, Hole intestine, of unknown cause Status:Active Mother Comments:DM, HTN, OA of hip, CABG X 5 Status:Active Unknown Family Member Name Dates Details Father Comments:Septic, ETOH, Hole intestine, of unknown cause Status:Active Mother Comments:DM, HTN, OA of hip, CABG X 5 Status:Active Unknown Family Member Name Dates Details Father Comments:Septic, ETOH, Hole intestine, of unknown cause Status:Active Mother Comments:DM, HTN, OA of hip, CABG X 5 Status:Active Unknown Family Member Name Dates Details Father Comments:Septic, ETOH, Hole intestine, of unknown cause Status:Active Mother Comments:DM, HTN, OA of hip, CABG X 5 Status:Active Unknown Family Member Name Dates Details Father Comments:Septic, ETOH, Hole intestine, of unknown cause Status:Active Mother Comments:DM, HTN, OA of hip, CABG X 5 Status:Active Unknown Family Member Name Dates Details Father Comments:Septic, ETOH, Hole intestine, of unknown cause Status:Active Mother Comments:DM, HTN, OA of hip, CABG X 5 Status:Active Unknown Family Member Name Dates Details Father Comments:Septic, ETOH, Hole intestine, of unknown cause Status:Active Mother Comments:DM, HTN, OA of hip, CABG X 5 Status:Active Unknown Family Member Name Dates Details Father Comments:Septic, ETOH, Hole intestine, of unknown cause Status:Active Mother Comments:DM, HTN, OA of hip, CABG X 5 Status:Active Unknown Family Member Name Dates Details Father Comments:Septic, ETOH, Hole intestine, of unknown cause Status:Active Mother Comments:DM, HTN, OA of hip, CABG X 5 Status:Active Unknown Family Member Name Dates Details Father Comments:Septic, ETOH, Hole intestine, of unknown cause Status:Active Mother Comments:DM, HTN, OA of hip, CABG X 5 Status:Active Unknown Family Member Name Dates Details Father Comments:Septic, ETOH, Hole intestine, of unknown cause Status:Active Mother Comments:DM, HTN, OA of hip, CABG X 5 Status:Active Unknown Family Member Name Dates Details Father Comments:Septic, ETOH, Hole intestine, of unknown cause Status:Active Mother Comments:DM, HTN, OA of hip, CABG X 5 Status:Active Unknown Family Member Name Dates Details Father Comments:Septic, ETOH, Hole intestine, of unknown cause Status:Active Mother Comments:DM, HTN, OA of hip, CABG X 5 Status:Active Unknown Family Member Name Dates Details Father Comments:Septic, ETOH, Hole intestine, of unknown cause Status:Active Mother Comments:DM, HTN, OA of hip, CABG X 5 Status:Active Unknown Family Member Name Dates Details Father Comments:Septic, ETOH, Hole intestine, of unknown cause Status:Active Mother Comments:DM, HTN, OA of hip, CABG X 5 Status:Active Unknown Family Member Name Dates Details Father Comments:Septic, ETOH, Hole intestine, of unknown cause Status:Active Mother Comments:DM, HTN, OA of hip, CABG X 5 Status:Active Unknown Family Member Name Dates Details Father Comments:Septic, ETOH, Hole intestine, of unknown cause Status:Active Mother Comments:DM, HTN, OA of hip, CABG X 5 Status:Active Unknown Family Member Name Dates Details Father Comments:Septic, ETOH, Hole intestine, of unknown cause Status:Active Mother Comments:DM, HTN, OA of hip, CABG X 5 Status:Active Unknown Family Member Name Dates Details Father Comments:Septic, ETOH, Hole intestine, of unknown cause Status:Active Mother Comments:DM, HTN, OA of hip, CABG X 5 Status:Active Unknown Family Member Name Dates Details Father Comments:Septic, ETOH, Hole intestine, of unknown cause Status:Active Mother Comments:DM, HTN, OA of hip, CABG X 5 Status:Active Unknown Family Member Name Dates Details Father Comments:Septic, ETOH, Hole intestine, of unknown cause Status:Active Mother Comments:DM, HTN, OA of hip, CABG X 5 Status:Active Unknown Family Member Name Dates Details Father Comments:Septic, ETOH, Hole intestine, of unknown cause Status:Active Mother Comments:DM, HTN, OA of hip, CABG X 5 Status:Active Unknown Family Member Name Dates Details Father Comments:Septic, ETOH, Hole intestine, of unknown cause Status:Active Mother Comments:DM, HTN, OA of hip, CABG X 5 Status:Active Unknown Family Member Name Dates Details Father Comments:Septic, ETOH, Hole intestine, of unknown cause Status:Active Mother Comments:DM, HTN, OA of hip, CABG X 5 Status:Active Unknown Family Member Name Dates Details Father Comments:Septic, ETOH, Hole intestine, of unknown cause Status:Active Mother Comments:DM, HTN, OA of hip, CABG X 5 Status:Active Unknown Family Member Name Dates Details Father Comments:Septic, ETOH, Hole intestine, of unknown cause Status:Active Mother Comments:DM, HTN, OA of hip, CABG X 5 Status:Active Unknown Family Member Name Dates Details Father Comments:Septic, ETOH, Hole intestine, of unknown cause Status:Active Mother Comments:DM, HTN, OA of hip, CABG X 5 Status:Active Relationship Condition Age at Onset Recorded Date/T sola Not Specified Osteoporosis Unknown Cardiac disease Unknown father Sepsis Unknown Alcohol abuse Unknown mother Diabetes mellitus Unknown Hypertension Unknown Instructions Name Dates Details Nonsmoker : How to access he alth information online Indication:Nonsmoker Nonsmoker : How to access he alth information online - Detail Indication:Nonsmoker Nonsmoker : Patient Instruct ions Indication:Nonsmoker Abnormal glucose tolerance t est (Renamed from Abnormal glucose tolerance test (GTT)) : How to access health information online Indication:Abnormal glucose tolerance test (Renamed from Abnormal glucose tolerance test (GTT)) Abnormal glucose tolerance t est (Renamed from Abnormal glucose tolerance test (GTT)) : How to access health information online - Detail Indication:Abnormal glucose tolerance test (Renamed from Abnormal glucose tolerance test (GTT)) Abnormal glucose tolerance t est (Renamed from Abnormal glucose tolerance test (GTT)) : Patient Instructions Indication:Abnormal glucose tolerance test (Renamed from Abnormal glucose tolerance test (GTT)) BMI 45.0-49.9, adult : How t o access health information online Indication:BMI 45.0-49.9, adult BMI 45.0-49.9, adult : How t o access health information online - Detail Indication:BMI 45.0-49.9, adult BMI 45.0-49.9, adult : Patie nt Instructions Indication:BMI 45.0-49.9, adult Abnormal glucose tolerance t est (Renamed from Abnormal glucose tolerance test (GTT)) : DISCONTINUED - HGB A1C (62036) Indication:Abnormal glucose tolerance test (Renamed from Abnormal glucose tolerance test (GTT)) Vitamin D deficiency : Patie nt Instructions Indication:Vitamin D deficiency Rheumatoid arthritis : How t o access health information online Indication:Rheumatoid arthritis Rheumatoid arthritis : How t o access health information online - Detail Indication:Rheumatoid arthritis Rheumatoid arthritis : Patie nt Instructions Indication:Rheumatoid arthritis Itching : How to access heal th information online Indication:Itching Itching : How to access heal th information online - Detail Indication:Itching Itching : Patient Instructio ns Indication:Itching Neck pain : How to access he alth information online Indication:Neck pain Neck pain : How to access he alth information online - Detail Indication:Neck pain Neck pain : Patient Instruct ions Indication:Neck pain Hypertension : Patient Instr uctions Indication:Hypertension Hypertension : How to access health information online Indication:Hypertension Hypertension : How to access health information online - Detail Indication:Hypertension Low back pain potentially as sociated with radiculopathy : Patient Instructions Indication:Low back pain potentially associated with radiculopathy Other intervertebral disc de generation, lumbar region : Patient Instructions Indication:Other intervertebral disc degeneration, lumbar region Radiculopathy of leg : Patie nt Instructions Indication:Radiculopathy of leg Knee pain, left : Patient In structions Indication:Knee pain, left Eczema : Patient Instruction s Indication:Eczema Allergic rhinitis : Patient Instructions Indication:Allergic rhinitis Name Dates Details Nonsmoker : How to access he alth information online Indication:Nonsmoker Nonsmoker : How to access he alth information online - Detail Indication:Nonsmoker Nonsmoker : Patient Instruct ions Indication:Nonsmoker Abnormal glucose tolerance t est (Renamed from Abnormal glucose tolerance test (GTT)) : How to access health information online Indication:Abnormal glucose tolerance test (Renamed from Abnormal glucose tolerance test (GTT)) Abnormal glucose tolerance t est (Renamed from Abnormal glucose tolerance test (GTT)) : How to access health information online - Detail Indication:Abnormal glucose tolerance test (Renamed from Abnormal glucose tolerance test (GTT)) Abnormal glucose tolerance t est (Renamed from Abnormal glucose tolerance test (GTT)) : Patient Instructions Indication:Abnormal glucose tolerance test (Renamed from Abnormal glucose tolerance test (GTT)) BMI 45.0-49.9, adult : How t o access health information online Indication:BMI 45.0-49.9, adult BMI 45.0-49.9, adult : How t o access health information online - Detail Indication:BMI 45.0-49.9, adult BMI 45.0-49.9, adult : Maryellen nt Instructions Indication:BMI 45.0-49.9, adult Abnormal glucose tolerance t est (Renamed from Abnormal glucose tolerance test (GTT)) : DISCONTINUED - HGB A1C (33282) Indication:Abnormal glucose tolerance test (Renamed from Abnormal glucose tolerance test (GTT)) Vitamin D deficiency : Patie nt Instructions Indication:Vitamin D deficiency Rheumatoid arthritis : How t o access health information online Indication:Rheumatoid arthritis Rheumatoid arthritis : How t o access health information online - Detail Indication:Rheumatoid arthritis Rheumatoid arthritis : Patie nt Instructions Indication:Rheumatoid arthritis Itching : How to access heal th information online Indication:Itching Itching : How to access heal th information online - Detail Indication:Itching Itching : Patient Instructio ns Indication:Itching Neck pain : How to access he alth information online Indication:Neck pain Neck pain : How to access he alth information online - Detail Indication:Neck pain Neck pain : Patient Instruct ions Indication:Neck pain Hypertension : Patient Instr uctions Indication:Hypertension Hypertension : How to access health information online Indication:Hypertension Hypertension : How to access health information online - Detail Indication:Hypertension Low back pain potentially as sociated with radiculopathy : Patient Instructions Indication:Low back pain potentially associated with radiculopathy Other intervertebral disc de generation, lumbar region : Patient Instructions Indication:Other intervertebral disc degeneration, lumbar region Radiculopathy of leg : Patie nt Instructions Indication:Radiculopathy of leg Knee pain, left : Patient In structions Indication:Knee pain, left Eczema : Patient Instruction s Indication:Eczema Allergic rhinitis : Patient Instructions Indication:Allergic rhinitis Name Dates Details Nonsmoker : How to access he alth information online Indication:Nonsmoker Nonsmoker : How to access he alth information online - Detail Indication:Nonsmoker Nonsmoker : Patient Instruct ions Indication:Nonsmoker Abnormal glucose tolerance t est (Renamed from Abnormal glucose tolerance test (GTT)) : How to access health information online Indication:Abnormal glucose tolerance test (Renamed from Abnormal glucose tolerance test (GTT)) Abnormal glucose tolerance t est (Renamed from Abnormal glucose tolerance test (GTT)) : How to access health information online - Detail Indication:Abnormal glucose tolerance test (Renamed from Abnormal glucose tolerance test (GTT)) Abnormal glucose tolerance t est (Renamed from Abnormal glucose tolerance test (GTT)) : Patient Instructions Indication:Abnormal glucose tolerance test (Renamed from Abnormal glucose tolerance test (GTT)) BMI 45.0-49.9, adult : How t o access health information online Indication:BMI 45.0-49.9, adult BMI 45.0-49.9, adult : How t o access health information online - Detail Indication:BMI 45.0-49.9, adult BMI 45.0-49.9, adult : Patie nt Instructions Indication:BMI 45.0-49.9, adult Abnormal glucose tolerance t est (Renamed from Abnormal glucose tolerance test (GTT)) : DISCONTINUED - HGB A1C (95868) Indication:Abnormal glucose tolerance test (Renamed from Abnormal glucose tolerance test (GTT)) Vitamin D deficiency : Patie nt Instructions Indication:Vitamin D deficiency Rheumatoid arthritis : How t o access health information online Indication:Rheumatoid arthritis Rheumatoid arthritis : How t o access health information online - Detail Indication:Rheumatoid arthritis Rheumatoid arthritis : Patie nt Instructions Indication:Rheumatoid arthritis Itching : How to access heal th information online Indication:Itching Itching : How to access heal th information online - Detail Indication:Itching Itching : Patient Instructio ns Indication:Itching Neck pain : How to access he alth information online Indication:Neck pain Neck pain : How to access he alth information online - Detail Indication:Neck pain Neck pain : Patient Instruct ions Indication:Neck pain Hypertension : Patient Instr uctions Indication:Hypertension Hypertension : How to access health information online Indication:Hypertension Hypertension : How to access health information online - Detail Indication:Hypertension Low back pain potentially as sociated with radiculopathy : Patient Instructions Indication:Low back pain potentially associated with radiculopathy Other intervertebral disc de generation, lumbar region : Patient Instructions Indication:Other intervertebral disc degeneration, lumbar region Radiculopathy of leg : Maryellen nt Instructions Indication:Radiculopathy of leg Knee pain, left : Patient In structions Indication:Knee pain, left Eczema : Patient Instruction s Indication:Eczema Allergic rhinitis : Patient Instructions Indication:Allergic rhinitis Name Dates Details BMI 40.0-44.9, adult : How t o access health information online Indication:BMI 40.0-44.9, adult BMI 40.0-44.9, adult : How t o access health information online - Detail Indication:BMI 40.0-44.9, adult BMI 40.0-44.9, adult : Maryellen nt Instructions Indication:BMI 40.0-44.9, adult Nonsmoker : How to access he alth information online Indication:Nonsmoker Nonsmoker : How to access he alth information online - Detail Indication:Nonsmoker Nonsmoker : Patient Instruct ions Indication:Nonsmoker Abnormal glucose tolerance t est (Renamed from Abnormal glucose tolerance test (GTT)) : How to access health information online Indication:Abnormal glucose tolerance test (Renamed from Abnormal glucose tolerance test (GTT)) Abnormal glucose tolerance t est (Renamed from Abnormal glucose tolerance test (GTT)) : How to access health information online - Detail Indication:Abnormal glucose tolerance test (Renamed from Abnormal glucose tolerance test (GTT)) Abnormal glucose tolerance t est (Renamed from Abnormal glucose tolerance test (GTT)) : Patient Instructions Indication:Abnormal glucose tolerance test (Renamed from Abnormal glucose tolerance test (GTT)) BMI 45.0-49.9, adult : How t o access health information online Indication:BMI 45.0-49.9, adult BMI 45.0-49.9, adult : How t o access health information online - Detail Indication:BMI 45.0-49.9, adult BMI 45.0-49.9, adult : Maryellen nt Instructions Indication:BMI 45.0-49.9, adult Abnormal glucose tolerance t est (Renamed from Abnormal glucose tolerance test (GTT)) : DISCONTINUED - HGB A1C (31181) Indication:Abnormal glucose tolerance test (Renamed from Abnormal glucose tolerance test (GTT)) Vitamin D deficiency : Patie nt Instructions Indication:Vitamin D deficiency Rheumatoid arthritis : How t o access health information online Indication:Rheumatoid arthritis Rheumatoid arthritis : How t o access health information online - Detail Indication:Rheumatoid arthritis Rheumatoid arthritis : Patie nt Instructions Indication:Rheumatoid arthritis Itching : How to access heal th information online Indication:Itching Itching : How to access heal th information online - Detail Indication:Itching Itching : Patient Instructio ns Indication:Itching Neck pain : How to access he alth information online Indication:Neck pain Neck pain : How to access he alth information online - Detail Indication:Neck pain Neck pain : Patient Instruct ions Indication:Neck pain Hypertension : Patient Instr uctions Indication:Hypertension Hypertension : How to access health information online Indication:Hypertension Hypertension : How to access health information online - Detail Indication:Hypertension Low back pain potentially as sociated with radiculopathy : Patient Instructions Indication:Low back pain potentially associated with radiculopathy Other intervertebral disc de generation, lumbar region : Patient Instructions Indication:Other intervertebral disc degeneration, lumbar region Radiculopathy of leg : Patie nt Instructions Indication:Radiculopathy of leg Knee pain, left : Patient In structions Indication:Knee pain, left Eczema : Patient Instruction s Indication:Eczema Allergic rhinitis : Patient Instructions Indication:Allergic rhinitis Name Dates Details BMI 40.0-44.9, adult : How t o access health information online Indication:BMI 40.0-44.9, adult BMI 40.0-44.9, adult : How t o access health information online - Detail Indication:BMI 40.0-44.9, adult BMI 40.0-44.9, adult : Patie nt Instructions Indication:BMI 40.0-44.9, adult Nonsmoker : How to access he alth information online Indication:Nonsmoker Nonsmoker : How to access he alth information online - Detail Indication:Nonsmoker Nonsmoker : Patient Instruct ions Indication:Nonsmoker Abnormal glucose tolerance t est (Renamed from Abnormal glucose tolerance test (GTT)) : How to access health information online Indication:Abnormal glucose tolerance test (Renamed from Abnormal glucose tolerance test (GTT)) Abnormal glucose tolerance t est (Renamed from Abnormal glucose tolerance test (GTT)) : How to access health information online - Detail Indication:Abnormal glucose tolerance test (Renamed from Abnormal glucose tolerance test (GTT)) Abnormal glucose tolerance t est (Renamed from Abnormal glucose tolerance test (GTT)) : Patient Instructions Indication:Abnormal glucose tolerance test (Renamed from Abnormal glucose tolerance test (GTT)) BMI 45.0-49.9, adult : How t o access health information online Indication:BMI 45.0-49.9, adult BMI 45.0-49.9, adult : How t o access health information online - Detail Indication:BMI 45.0-49.9, adult BMI 45.0-49.9, adult : Patie nt Instructions Indication:BMI 45.0-49.9, adult Abnormal glucose tolerance t est (Renamed from Abnormal glucose tolerance test (GTT)) : DISCONTINUED - HGB A1C (67588) Indication:Abnormal glucose tolerance test (Renamed from Abnormal glucose tolerance test (GTT)) Vitamin D deficiency : Patie nt Instructions Indication:Vitamin D deficiency Rheumatoid arthritis : How t o access health information online Indication:Rheumatoid arthritis Rheumatoid arthritis : How t o access health information online - Detail Indication:Rheumatoid arthritis Rheumatoid arthritis : Patie nt Instructions Indication:Rheumatoid arthritis Itching : How to access heal th information online Indication:Itching Itching : How to access heal th information online - Detail Indication:Itching Itching : Patient Instructio ns Indication:Itching Neck pain : How to access he alth information online Indication:Neck pain Neck pain : How to access he alth information online - Detail Indication:Neck pain Neck pain : Patient Instruct ions Indication:Neck pain Hypertension : Patient Instr uctions Indication:Hypertension Hypertension : How to access health information online Indication:Hypertension Hypertension : How to access health information online - Detail Indication:Hypertension Low back pain potentially as sociated with radiculopathy : Patient Instructions Indication:Low back pain potentially associated with radiculopathy Other intervertebral disc de generation, lumbar region : Patient Instructions Indication:Other intervertebral disc degeneration, lumbar region Radiculopathy of leg : Patie nt Instructions Indication:Radiculopathy of leg Knee pain, left : Patient In structions Indication:Knee pain, left Eczema : Patient Instruction s Indication:Eczema Allergic rhinitis : Patient Instructions Indication:Allergic rhinitis Name Dates Details How to access health informa tion online Indication:BMI 40.0-44.9, adult Start:21-May-2018 Instruction Type:Patient Education How to access health informa tion online - Detail Indication:BMI 40.0-44.9, adult Start:21-May-2018 Instruction Type:Patient Education Patient Instructions Indication:BMI 40.0-44.9, adult Start:21-May-2018 Instruction Type:Provider Instructions for Treatment How to access health informa tion online Indication:Nonsmoker Start:23-Apr-2018 Instruction Type:Patient Education How to access health informa tion online - Detail Indication:Nonsmoker Start:23-Apr-2018 Instruction Type:Patient Education Patient Instructions Indication:Nonsmoker Start:23-Apr-2018 Instruction Type:Provider Instructions for Treatment How to access health informa tion online Indication:BMI 40.0-44.9, adult Start:09-Apr-2018 Instruction Type:Patient Education How to access health informa tion online - Detail Indication:BMI 40.0-44.9, adult Start:09-Apr-2018 Instruction Type:Patient Education Patient Instructions Indication:BMI 40.0-44.9, adult Start:09-Apr-2018 Instruction Type:Provider Instructions for Treatment How to access health informa tion online Indication:Nonsmoker Start:12-Mar-2018 Instruction Type:Patient Education How to access health informa tion online - Detail Indication:Nonsmoker Start:12-Mar-2018 Instruction Type:Patient Education Patient Instructions Indication:Nonsmoker Start:12-Mar-2018 Instruction Type:Provider Instructions for Treatment How to access health informa tion online Indication:Nonsmoker Start:05-Mar-2018 Instruction Type:Patient Education How to access health informa tion online - Detail Indication:Nonsmoker Start:05-Mar-2018 Instruction Type:Patient Education Patient Instructions Indication:Nonsmoker Start:05-Mar-2018 Instruction Type:Provider Instructions for Treatment How to access health informa tion online Indication:Nonsmoker Start:12-Feb-2018 Instruction Type:Patient Education How to access health informa tion online - Detail Indication:Nonsmoker Start:12-Feb-2018 Instruction Type:Patient Education Patient Instructions Indication:Nonsmoker Start:12-Feb-2018 Instruction Type:Provider Instructions for Treatment How to access health informa tion online Indication:Nonsmoker Start:06-Nov-2017 Instruction Type:Patient Education How to access health informa tion online - Detail Indication:Nonsmoker Start:06-Nov-2017 Instruction Type:Patient Education How to access health informa tion online Indication:Nonsmoker Start:09-Oct-2017 Instruction Type:Patient Education How to access health informa tion online - Detail Indication:Nonsmoker Start:09-Oct-2017 Instruction Type:Patient Education Patient Instructions Indication:Nonsmoker Start:09-Oct-2017 Instruction Type:Provider Instructions for Treatment How to access health informa tion online Indication:Nonsmoker Start:02-Oct-2017 Instruction Type:Patient Education How to access health informa tion online - Detail Indication:Nonsmoker Start:02-Oct-2017 Instruction Type:Patient Education Patient Instructions Indication:Nonsmoker Start:02-Oct-2017 Instruction Type:Provider Instructions for Treatment How to access health informa tion online Indication:Nonsmoker Start:25-Sep-2017 Instruction Type:Patient Education How to access health informa tion online - Detail Indication:Nonsmoker Start:25-Sep-2017 Instruction Type:Patient Education Patient Instructions Indication:Nonsmoker Start:25-Sep-2017 Instruction Type:Provider Instructions for Treatment How to access health informa tion online Indication:Abnormal glucose tolerance test (Renamed from Abnormal glucose tolerance test (GTT)) Start:03-Jul-2017 Instruction Type:Patient Education How to access health informa tion online - Detail Indication:Abnormal glucose tolerance test (Renamed from Abnormal glucose tolerance test (GTT)) Start:03-Jul-2017 Instruction Type:Patient Education Patient Instructions Indication:Abnormal glucose tolerance test (Renamed from Abnormal glucose tolerance test (GTT)) Start:03-Jul-2017 Instruction Type:Provider Instructions for Treatment How to access health informa tion online Indication:Nonsmoker Start:27-Feb-2017 Instruction Type:Patient Education How to access health informa tion online - Detail Indication:Nonsmoker Start:27-Feb-2017 Instruction Type:Patient Education Patient Instructions Indication:Nonsmoker Start:27-Feb-2017 Instruction Type:Provider Instructions for Treatment How to access health informa tion online Indication:Nonsmoker Start:05-Dec-2016 Instruction Type:Patient Education How to access health informa tion online - Detail Indication:Nonsmoker Start:05-Dec-2016 Instruction Type:Patient Education Patient Instructions Indication:Nonsmoker Start:05-Dec-2016 Instruction Type:Provider Instructions for Treatment How to access health informa tion online Indication:Nonsmoker Start:07-Nov-2016 Instruction Type:Patient Education How to access health informa tion online - Detail Indication:Nonsmoker Start:07-Nov-2016 Instruction Type:Patient Education Patient Instructions Indication:Nonsmoker Start:07-Nov-2016 Instruction Type:Provider Instructions for Treatment How to access health informa tion online Indication:Nonsmoker Start:15-Oct-2016 Instruction Type:Patient Education How to access health informa tion online Indication:BMI 45.0-49.9, adult Start:06-Aug-2016 Instruction Type:Patient Education How to access health informa tion online - Detail Indication:BMI 45.0-49.9, adult Start:06-Aug-2016 Instruction Type:Patient Education Patient Instructions Indication:BMI 45.0-49.9, adult Start:06-Aug-2016 Instruction Type:Provider Instructions for Treatment Patient Instructions Indication:Abnormal glucose tolerance test (Renamed from Abnormal glucose tolerance test (GTT)) Start:16-May-2016 Instruction Type:Provider Instructions for Treatment DISCONTINUED - HGB A1C (8303 6) Indication:Abnormal glucose tolerance test (Renamed from Abnormal glucose tolerance test (GTT)) Start:16-May-2016 Instruction Type:Patient Education How to access health informa tion online Indication:BMI 45.0-49.9, adult Start:20-Apr-2016 Instruction Type:Patient Education How to access health informa tion online - Detail Indication:BMI 45.0-49.9, adult Start:20-Apr-2016 Instruction Type:Patient Education Patient Instructions Indication:BMI 45.0-49.9, adult Start:20-Apr-2016 Instruction Type:Provider Instructions for Treatment How to access health informa tion online Indication:Nonsmoker Start:02-Apr-2016 Instruction Type:Patient Education How to access health informa tion online - Detail Indication:Nonsmoker Start:02-Apr-2016 Instruction Type:Patient Education Patient Instructions Indication:Nonsmoker Start:02-Apr-2016 Instruction Type:Provider Instructions for Treatment How to access health informa tion online - Detail Indication:Nonsmoker Start:28-Mar-2016 Instruction Type:Patient Education How to access health informa tion online Indication:Nonsmoker Start:28-Mar-2016 Instruction Type:Patient Education Patient Instructions Indication:Nonsmoker Start:28-Mar-2016 Instruction Type:Provider Instructions for Treatment Patient Instructions Indication:Vitamin D deficiency Start:14-Sep-2015 Instruction Type:Provider Instructions for Treatment How to access health informa tion online Indication:Rheumatoid arthritis Start:17-Aug-2015 Instruction Type:Patient Education How to access health informa tion online - Detail Indication:Rheumatoid arthritis Start:17-Aug-2015 Instruction Type:Patient Education Patient Instructions Indication:Rheumatoid arthritis Start:17-Aug-2015 Instruction Type:Provider Instructions for Treatment How to access health informa tion online Indication:Itching Start:23-Mar-2015 Instruction Type:Patient Education How to access health informa tion online - Detail Indication:Itching Start:23-Mar-2015 Instruction Type:Patient Education Patient Instructions Indication:Itching Start:23-Mar-2015 Instruction Type:Provider Instructions for Treatment How to access health informa tion online Indication:Neck pain Start:07-Feb-2015 Instruction Type:Patient Education How to access health informa tion online - Detail Indication:Neck pain Start:07-Feb-2015 Instruction Type:Patient Education Patient Instructions Indication:Neck pain Start:07-Feb-2015 Instruction Type:Provider Instructions for Treatment Patient Instructions Indication:Hypertension Start:07-Jun-2014 Instruction Type:Provider Instructions for Treatment How to access health informa tion online Indication:Hypertension Start:18-Jan-2014 Instruction Type:Patient Education How to access health informa tion online - Detail Indication:Hypertension Start:18-Jan-2014 Instruction Type:Patient Education Patient Instructions Indication:Hypertension Start:18-Jan-2014 Instruction Type:Provider Instructions for Treatment Patient Instructions Indication:Low back pain potentially associated with radiculopathy Start:21-Sep-2013 Instruction Type:Provider Instructions for Treatment Patient Instructions Indication:Low back pain potentially associated with radiculopathy Start:24-Jun-2013 Instruction Type:Provider Instructions for Treatment Patient Instructions Indication:Other intervertebral disc degeneration, lumbar region Start:18-May-2013 Instruction Type:Provider Instructions for Treatment Patient Instructions Indication:Radiculopathy of leg Start:24-Apr-2013 Instruction Type:Provider Instructions for Treatment Patient Instructions Indication:Hypertension Start:07-Jan-2013 Instruction Type:Provider Instructions for Treatment Patient Instructions Indication:Knee pain, left Start:23-Sep-2012 Instruction Type:Provider Instructions for Treatment Patient Instructions Indication:Eczema Start:03-Apr-2012 Instruction Type:Provider Instructions for Treatment Patient Instructions Indication:Allergic rhinitis Start:03-Mar-2012 Instruction Type:Provider Instructions for Treatment Patient Instructions Indication:Hypertension Start:31-Oct-2011 Instruction Type:Provider Instructions for Treatment Name Dates Details How to access health informa tion online Indication:BMI 40.0-44.9, adult Start:21-May-2018 Instruction Type:Patient Education How to access health informa tion online - Detail Indication:BMI 40.0-44.9, adult Start:21-May-2018 Instruction Type:Patient Education Patient Instructions Indication:BMI 40.0-44.9, adult Start:21-May-2018 Instruction Type:Provider Instructions for Treatment How to access health informa tion online Indication:Nonsmoker Start:23-Apr-2018 Instruction Type:Patient Education How to access health informa tion online - Detail Indication:Nonsmoker Start:23-Apr-2018 Instruction Type:Patient Education Patient Instructions Indication:Nonsmoker Start:23-Apr-2018 Instruction Type:Provider Instructions for Treatment How to access health informa tion online Indication:BMI 40.0-44.9, adult Start:09-Apr-2018 Instruction Type:Patient Education How to access health informa tion online - Detail Indication:BMI 40.0-44.9, adult Start:09-Apr-2018 Instruction Type:Patient Education Patient Instructions Indication:BMI 40.0-44.9, adult Start:09-Apr-2018 Instruction Type:Provider Instructions for Treatment How to access health informa tion online Indication:Nonsmoker Start:12-Mar-2018 Instruction Type:Patient Education How to access health informa tion online - Detail Indication:Nonsmoker Start:12-Mar-2018 Instruction Type:Patient Education Patient Instructions Indication:Nonsmoker Start:12-Mar-2018 Instruction Type:Provider Instructions for Treatment How to access health informa tion online Indication:Nonsmoker Start:05-Mar-2018 Instruction Type:Patient Education How to access health informa tion online - Detail Indication:Nonsmoker Start:05-Mar-2018 Instruction Type:Patient Education Patient Instructions Indication:Nonsmoker Start:05-Mar-2018 Instruction Type:Provider Instructions for Treatment How to access health informa tion online Indication:Nonsmoker Start:12-Feb-2018 Instruction Type:Patient Education How to access health informa tion online - Detail Indication:Nonsmoker Start:12-Feb-2018 Instruction Type:Patient Education Patient Instructions Indication:Nonsmoker Start:12-Feb-2018 Instruction Type:Provider Instructions for Treatment How to access health informa tion online Indication:Nonsmoker Start:06-Nov-2017 Instruction Type:Patient Education How to access health informa tion online - Detail Indication:Nonsmoker Start:06-Nov-2017 Instruction Type:Patient Education How to access health informa tion online Indication:Nonsmoker Start:09-Oct-2017 Instruction Type:Patient Education How to access health informa tion online - Detail Indication:Nonsmoker Start:09-Oct-2017 Instruction Type:Patient Education Patient Instructions Indication:Nonsmoker Start:09-Oct-2017 Instruction Type:Provider Instructions for Treatment How to access health informa tion online Indication:Nonsmoker Start:02-Oct-2017 Instruction Type:Patient Education How to access health informa tion online - Detail Indication:Nonsmoker Start:02-Oct-2017 Instruction Type:Patient Education Patient Instructions Indication:Nonsmoker Start:02-Oct-2017 Instruction Type:Provider Instructions for Treatment How to access health informa tion online Indication:Nonsmoker Start:25-Sep-2017 Instruction Type:Patient Education How to access health informa tion online - Detail Indication:Nonsmoker Start:25-Sep-2017 Instruction Type:Patient Education Patient Instructions Indication:Nonsmoker Start:25-Sep-2017 Instruction Type:Provider Instructions for Treatment How to access health informa tion online Indication:Abnormal glucose tolerance test (Renamed from Abnormal glucose tolerance test (GTT)) Start:03-Jul-2017 Instruction Type:Patient Education How to access health informa tion online - Detail Indication:Abnormal glucose tolerance test (Renamed from Abnormal glucose tolerance test (GTT)) Start:03-Jul-2017 Instruction Type:Patient Education Patient Instructions Indication:Abnormal glucose tolerance test (Renamed from Abnormal glucose tolerance test (GTT)) Start:03-Jul-2017 Instruction Type:Provider Instructions for Treatment How to access health informa tion online Indication:Nonsmoker Start:27-Feb-2017 Instruction Type:Patient Education How to access health informa tion online - Detail Indication:Nonsmoker Start:27-Feb-2017 Instruction Type:Patient Education Patient Instructions Indication:Nonsmoker Start:27-Feb-2017 Instruction Type:Provider Instructions for Treatment How to access health informa tion online Indication:Nonsmoker Start:05-Dec-2016 Instruction Type:Patient Education How to access health informa tion online - Detail Indication:Nonsmoker Start:05-Dec-2016 Instruction Type:Patient Education Patient Instructions Indication:Nonsmoker Start:05-Dec-2016 Instruction Type:Provider Instructions for Treatment How to access health informa tion online Indication:Nonsmoker Start:07-Nov-2016 Instruction Type:Patient Education How to access health informa tion online - Detail Indication:Nonsmoker Start:07-Nov-2016 Instruction Type:Patient Education Patient Instructions Indication:Nonsmoker Start:07-Nov-2016 Instruction Type:Provider Instructions for Treatment How to access health informa tion online Indication:Nonsmoker Start:15-Oct-2016 Instruction Type:Patient Education How to access health informa tion online Indication:BMI 45.0-49.9, adult Start:06-Aug-2016 Instruction Type:Patient Education How to access health informa tion online - Detail Indication:BMI 45.0-49.9, adult Start:06-Aug-2016 Instruction Type:Patient Education Patient Instructions Indication:BMI 45.0-49.9, adult Start:06-Aug-2016 Instruction Type:Provider Instructions for Treatment Patient Instructions Indication:Abnormal glucose tolerance test (Renamed from Abnormal glucose tolerance test (GTT)) Start:16-May-2016 Instruction Type:Provider Instructions for Treatment DISCONTINUED - HGB A1C (8303 6) Indication:Abnormal glucose tolerance test (Renamed from Abnormal glucose tolerance test (GTT)) Start:16-May-2016 Instruction Type:Patient Education How to access health informa tion online Indication:BMI 45.0-49.9, adult Start:20-Apr-2016 Instruction Type:Patient Education How to access health informa tion online - Detail Indication:BMI 45.0-49.9, adult Start:20-Apr-2016 Instruction Type:Patient Education Patient Instructions Indication:BMI 45.0-49.9, adult Start:20-Apr-2016 Instruction Type:Provider Instructions for Treatment How to access health informa tion online Indication:Nonsmoker Start:02-Apr-2016 Instruction Type:Patient Education How to access health informa tion online - Detail Indication:Nonsmoker Start:02-Apr-2016 Instruction Type:Patient Education Patient Instructions Indication:Nonsmoker Start:02-Apr-2016 Instruction Type:Provider Instructions for Treatment How to access health informa tion online - Detail Indication:Nonsmoker Start:28-Mar-2016 Instruction Type:Patient Education How to access health informa tion online Indication:Nonsmoker Start:28-Mar-2016 Instruction Type:Patient Education Patient Instructions Indication:Nonsmoker Start:28-Mar-2016 Instruction Type:Provider Instructions for Treatment Patient Instructions Indication:Vitamin D deficiency Start:14-Sep-2015 Instruction Type:Provider Instructions for Treatment How to access health informa tion online Indication:Rheumatoid arthritis Start:17-Aug-2015 Instruction Type:Patient Education How to access health informa tion online - Detail Indication:Rheumatoid arthritis Start:17-Aug-2015 Instruction Type:Patient Education Patient Instructions Indication:Rheumatoid arthritis Start:17-Aug-2015 Instruction Type:Provider Instructions for Treatment How to access health informa tion online Indication:Itching Start:23-Mar-2015 Instruction Type:Patient Education How to access health informa tion online - Detail Indication:Itching Start:23-Mar-2015 Instruction Type:Patient Education Patient Instructions Indication:Itching Start:23-Mar-2015 Instruction Type:Provider Instructions for Treatment How to access health informa tion online Indication:Neck pain Start:07-Feb-2015 Instruction Type:Patient Education How to access health informa tion online - Detail Indication:Neck pain Start:07-Feb-2015 Instruction Type:Patient Education Patient Instructions Indication:Neck pain Start:07-Feb-2015 Instruction Type:Provider Instructions for Treatment Patient Instructions Indication:Hypertension Start:07-Jun-2014 Instruction Type:Provider Instructions for Treatment How to access health informa tion online Indication:Hypertension Start:18-Jan-2014 Instruction Type:Patient Education How to access health informa tion online - Detail Indication:Hypertension Start:18-Jan-2014 Instruction Type:Patient Education Patient Instructions Indication:Hypertension Start:18-Jan-2014 Instruction Type:Provider Instructions for Treatment Patient Instructions Indication:Low back pain potentially associated with radiculopathy Start:21-Sep-2013 Instruction Type:Provider Instructions for Treatment Patient Instructions Indication:Low back pain potentially associated with radiculopathy Start:24-Jun-2013 Instruction Type:Provider Instructions for Treatment Patient Instructions Indication:Other intervertebral disc degeneration, lumbar region Start:18-May-2013 Instruction Type:Provider Instructions for Treatment Patient Instructions Indication:Radiculopathy of leg Start:24-Apr-2013 Instruction Type:Provider Instructions for Treatment Patient Instructions Indication:Hypertension Start:07-Jan-2013 Instruction Type:Provider Instructions for Treatment Patient Instructions Indication:Knee pain, left Start:23-Sep-2012 Instruction Type:Provider Instructions for Treatment Patient Instructions Indication:Eczema Start:03-Apr-2012 Instruction Type:Provider Instructions for Treatment Patient Instructions Indication:Allergic rhinitis Start:03-Mar-2012 Instruction Type:Provider Instructions for Treatment Patient Instructions Indication:Hypertension Start:31-Oct-2011 Instruction Type:Provider Instructions for Treatment Name Dates Details How to access health informa tion online Indication:BMI 40.0-44.9, adult Start:21-May-2018 Instruction Type:Patient Education How to access health informa tion online - Detail Indication:BMI 40.0-44.9, adult Start:21-May-2018 Instruction Type:Patient Education Patient Instructions Indication:BMI 40.0-44.9, adult Start:21-May-2018 Instruction Type:Provider Instructions for Treatment How to access health informa tion online Indication:Nonsmoker Start:23-Apr-2018 Instruction Type:Patient Education How to access health informa tion online - Detail Indication:Nonsmoker Start:23-Apr-2018 Instruction Type:Patient Education Patient Instructions Indication:Nonsmoker Start:23-Apr-2018 Instruction Type:Provider Instructions for Treatment How to access health informa tion online Indication:BMI 40.0-44.9, adult Start:09-Apr-2018 Instruction Type:Patient Education How to access health informa tion online - Detail Indication:BMI 40.0-44.9, adult Start:09-Apr-2018 Instruction Type:Patient Education Patient Instructions Indication:BMI 40.0-44.9, adult Start:09-Apr-2018 Instruction Type:Provider Instructions for Treatment How to access health informa tion online Indication:Nonsmoker Start:12-Mar-2018 Instruction Type:Patient Education How to access health informa tion online - Detail Indication:Nonsmoker Start:12-Mar-2018 Instruction Type:Patient Education Patient Instructions Indication:Nonsmoker Start:12-Mar-2018 Instruction Type:Provider Instructions for Treatment How to access health informa tion online Indication:Nonsmoker Start:05-Mar-2018 Instruction Type:Patient Education How to access health informa tion online - Detail Indication:Nonsmoker Start:05-Mar-2018 Instruction Type:Patient Education Patient Instructions Indication:Nonsmoker Start:05-Mar-2018 Instruction Type:Provider Instructions for Treatment How to access health informa tion online Indication:Nonsmoker Start:12-Feb-2018 Instruction Type:Patient Education How to access health informa tion online - Detail Indication:Nonsmoker Start:12-Feb-2018 Instruction Type:Patient Education Patient Instructions Indication:Nonsmoker Start:12-Feb-2018 Instruction Type:Provider Instructions for Treatment How to access health informa tion online Indication:Nonsmoker Start:06-Nov-2017 Instruction Type:Patient Education How to access health informa tion online - Detail Indication:Nonsmoker Start:06-Nov-2017 Instruction Type:Patient Education How to access health informa tion online Indication:Nonsmoker Start:09-Oct-2017 Instruction Type:Patient Education How to access health informa tion online - Detail Indication:Nonsmoker Start:09-Oct-2017 Instruction Type:Patient Education Patient Instructions Indication:Nonsmoker Start:09-Oct-2017 Instruction Type:Provider Instructions for Treatment How to access health informa tion online Indication:Nonsmoker Start:02-Oct-2017 Instruction Type:Patient Education How to access health informa tion online - Detail Indication:Nonsmoker Start:02-Oct-2017 Instruction Type:Patient Education Patient Instructions Indication:Nonsmoker Start:02-Oct-2017 Instruction Type:Provider Instructions for Treatment How to access health informa tion online Indication:Nonsmoker Start:25-Sep-2017 Instruction Type:Patient Education How to access health informa tion online - Detail Indication:Nonsmoker Start:25-Sep-2017 Instruction Type:Patient Education Patient Instructions Indication:Nonsmoker Start:25-Sep-2017 Instruction Type:Provider Instructions for Treatment How to access health informa tion online Indication:Abnormal glucose tolerance test (Renamed from Abnormal glucose tolerance test (GTT)) Start:03-Jul-2017 Instruction Type:Patient Education How to access health informa tion online - Detail Indication:Abnormal glucose tolerance test (Renamed from Abnormal glucose tolerance test (GTT)) Start:03-Jul-2017 Instruction Type:Patient Education Patient Instructions Indication:Abnormal glucose tolerance test (Renamed from Abnormal glucose tolerance test (GTT)) Start:03-Jul-2017 Instruction Type:Provider Instructions for Treatment How to access health informa tion online Indication:Nonsmoker Start:27-Feb-2017 Instruction Type:Patient Education How to access health informa tion online - Detail Indication:Nonsmoker Start:27-Feb-2017 Instruction Type:Patient Education Patient Instructions Indication:Nonsmoker Start:27-Feb-2017 Instruction Type:Provider Instructions for Treatment How to access health informa tion online Indication:Nonsmoker Start:05-Dec-2016 Instruction Type:Patient Education How to access health informa tion online - Detail Indication:Nonsmoker Start:05-Dec-2016 Instruction Type:Patient Education Patient Instructions Indication:Nonsmoker Start:05-Dec-2016 Instruction Type:Provider Instructions for Treatment How to access health informa tion online Indication:Nonsmoker Start:07-Nov-2016 Instruction Type:Patient Education How to access health informa tion online - Detail Indication:Nonsmoker Start:07-Nov-2016 Instruction Type:Patient Education Patient Instructions Indication:Nonsmoker Start:07-Nov-2016 Instruction Type:Provider Instructions for Treatment How to access health informa tion online Indication:Nonsmoker Start:15-Oct-2016 Instruction Type:Patient Education How to access health informa tion online Indication:BMI 45.0-49.9, adult Start:06-Aug-2016 Instruction Type:Patient Education How to access health informa tion online - Detail Indication:BMI 45.0-49.9, adult Start:06-Aug-2016 Instruction Type:Patient Education Patient Instructions Indication:BMI 45.0-49.9, adult Start:06-Aug-2016 Instruction Type:Provider Instructions for Treatment Patient Instructions Indication:Abnormal glucose tolerance test (Renamed from Abnormal glucose tolerance test (GTT)) Start:16-May-2016 Instruction Type:Provider Instructions for Treatment DISCONTINUED - HGB A1C (8303 6) Indication:Abnormal glucose tolerance test (Renamed from Abnormal glucose tolerance test (GTT)) Start:16-May-2016 Instruction Type:Patient Education How to access health informa tion online Indication:BMI 45.0-49.9, adult Start:20-Apr-2016 Instruction Type:Patient Education How to access health informa tion online - Detail Indication:BMI 45.0-49.9, adult Start:20-Apr-2016 Instruction Type:Patient Education Patient Instructions Indication:BMI 45.0-49.9, adult Start:20-Apr-2016 Instruction Type:Provider Instructions for Treatment How to access health informa tion online Indication:Nonsmoker Start:02-Apr-2016 Instruction Type:Patient Education How to access health informa tion online - Detail Indication:Nonsmoker Start:02-Apr-2016 Instruction Type:Patient Education Patient Instructions Indication:Nonsmoker Start:02-Apr-2016 Instruction Type:Provider Instructions for Treatment How to access health informa tion online - Detail Indication:Nonsmoker Start:28-Mar-2016 Instruction Type:Patient Education How to access health informa tion online Indication:Nonsmoker Start:28-Mar-2016 Instruction Type:Patient Education Patient Instructions Indication:Nonsmoker Start:28-Mar-2016 Instruction Type:Provider Instructions for Treatment Patient Instructions Indication:Vitamin D deficiency Start:14-Sep-2015 Instruction Type:Provider Instructions for Treatment How to access health informa tion online Indication:Rheumatoid arthritis Start:17-Aug-2015 Instruction Type:Patient Education How to access health informa tion online - Detail Indication:Rheumatoid arthritis Start:17-Aug-2015 Instruction Type:Patient Education Patient Instructions Indication:Rheumatoid arthritis Start:17-Aug-2015 Instruction Type:Provider Instructions for Treatment How to access health informa tion online Indication:Itching Start:23-Mar-2015 Instruction Type:Patient Education How to access health informa tion online - Detail Indication:Itching Start:23-Mar-2015 Instruction Type:Patient Education Patient Instructions Indication:Itching Start:23-Mar-2015 Instruction Type:Provider Instructions for Treatment How to access health informa tion online Indication:Neck pain Start:07-Feb-2015 Instruction Type:Patient Education How to access health informa tion online - Detail Indication:Neck pain Start:07-Feb-2015 Instruction Type:Patient Education Patient Instructions Indication:Neck pain Start:07-Feb-2015 Instruction Type:Provider Instructions for Treatment Patient Instructions Indication:Hypertension Start:07-Jun-2014 Instruction Type:Provider Instructions for Treatment How to access health informa tion online Indication:Hypertension Start:18-Jan-2014 Instruction Type:Patient Education How to access health informa tion online - Detail Indication:Hypertension Start:18-Jan-2014 Instruction Type:Patient Education Patient Instructions Indication:Hypertension Start:18-Jan-2014 Instruction Type:Provider Instructions for Treatment Patient Instructions Indication:Low back pain potentially associated with radiculopathy Start:21-Sep-2013 Instruction Type:Provider Instructions for Treatment Patient Instructions Indication:Low back pain potentially associated with radiculopathy Start:24-Jun-2013 Instruction Type:Provider Instructions for Treatment Patient Instructions Indication:Other intervertebral disc degeneration, lumbar region Start:18-May-2013 Instruction Type:Provider Instructions for Treatment Patient Instructions Indication:Radiculopathy of leg Start:24-Apr-2013 Instruction Type:Provider Instructions for Treatment Patient Instructions Indication:Hypertension Start:07-Jan-2013 Instruction Type:Provider Instructions for Treatment Patient Instructions Indication:Knee pain, left Start:23-Sep-2012 Instruction Type:Provider Instructions for Treatment Patient Instructions Indication:Eczema Start:03-Apr-2012 Instruction Type:Provider Instructions for Treatment Patient Instructions Indication:Allergic rhinitis Start:03-Mar-2012 Instruction Type:Provider Instructions for Treatment Patient Instructions Indication:Hypertension Start:31-Oct-2011 Instruction Type:Provider Instructions for Treatment Name Dates Details How to access health informa tion online Indication:BMI 40.0-44.9, adult Start:21-May-2018 Instruction Type:Patient Education How to access health informa tion online - Detail Indication:BMI 40.0-44.9, adult Start:21-May-2018 Instruction Type:Patient Education Patient Instructions Indication:BMI 40.0-44.9, adult Start:21-May-2018 Instruction Type:Provider Instructions for Treatment How to access health informa tion online Indication:Nonsmoker Start:23-Apr-2018 Instruction Type:Patient Education How to access health informa tion online - Detail Indication:Nonsmoker Start:23-Apr-2018 Instruction Type:Patient Education Patient Instructions Indication:Nonsmoker Start:23-Apr-2018 Instruction Type:Provider Instructions for Treatment How to access health informa tion online Indication:BMI 40.0-44.9, adult Start:09-Apr-2018 Instruction Type:Patient Education How to access health informa tion online - Detail Indication:BMI 40.0-44.9, adult Start:09-Apr-2018 Instruction Type:Patient Education Patient Instructions Indication:BMI 40.0-44.9, adult Start:09-Apr-2018 Instruction Type:Provider Instructions for Treatment How to access health informa tion online Indication:Nonsmoker Start:12-Mar-2018 Instruction Type:Patient Education How to access health informa tion online - Detail Indication:Nonsmoker Start:12-Mar-2018 Instruction Type:Patient Education Patient Instructions Indication:Nonsmoker Start:12-Mar-2018 Instruction Type:Provider Instructions for Treatment How to access health informa tion online Indication:Nonsmoker Start:05-Mar-2018 Instruction Type:Patient Education How to access health informa tion online - Detail Indication:Nonsmoker Start:05-Mar-2018 Instruction Type:Patient Education Patient Instructions Indication:Nonsmoker Start:05-Mar-2018 Instruction Type:Provider Instructions for Treatment How to access health informa tion online Indication:Nonsmoker Start:12-Feb-2018 Instruction Type:Patient Education How to access health informa tion online - Detail Indication:Nonsmoker Start:12-Feb-2018 Instruction Type:Patient Education Patient Instructions Indication:Nonsmoker Start:12-Feb-2018 Instruction Type:Provider Instructions for Treatment How to access health informa tion online Indication:Nonsmoker Start:06-Nov-2017 Instruction Type:Patient Education How to access health informa tion online - Detail Indication:Nonsmoker Start:06-Nov-2017 Instruction Type:Patient Education How to access health informa tion online Indication:Nonsmoker Start:09-Oct-2017 Instruction Type:Patient Education How to access health informa tion online - Detail Indication:Nonsmoker Start:09-Oct-2017 Instruction Type:Patient Education Patient Instructions Indication:Nonsmoker Start:09-Oct-2017 Instruction Type:Provider Instructions for Treatment How to access health informa tion online Indication:Nonsmoker Start:02-Oct-2017 Instruction Type:Patient Education How to access health informa tion online - Detail Indication:Nonsmoker Start:02-Oct-2017 Instruction Type:Patient Education Patient Instructions Indication:Nonsmoker Start:02-Oct-2017 Instruction Type:Provider Instructions for Treatment How to access health informa tion online Indication:Nonsmoker Start:25-Sep-2017 Instruction Type:Patient Education How to access health informa tion online - Detail Indication:Nonsmoker Start:25-Sep-2017 Instruction Type:Patient Education Patient Instructions Indication:Nonsmoker Start:25-Sep-2017 Instruction Type:Provider Instructions for Treatment How to access health informa tion online Indication:Abnormal glucose tolerance test (Renamed from Abnormal glucose tolerance test (GTT)) Start:03-Jul-2017 Instruction Type:Patient Education How to access health informa tion online - Detail Indication:Abnormal glucose tolerance test (Renamed from Abnormal glucose tolerance test (GTT)) Start:03-Jul-2017 Instruction Type:Patient Education Patient Instructions Indication:Abnormal glucose tolerance test (Renamed from Abnormal glucose tolerance test (GTT)) Start:03-Jul-2017 Instruction Type:Provider Instructions for Treatment How to access health informa tion online Indication:Nonsmoker Start:27-Feb-2017 Instruction Type:Patient Education How to access health informa tion online - Detail Indication:Nonsmoker Start:27-Feb-2017 Instruction Type:Patient Education Patient Instructions Indication:Nonsmoker Start:27-Feb-2017 Instruction Type:Provider Instructions for Treatment How to access health informa tion online Indication:Nonsmoker Start:05-Dec-2016 Instruction Type:Patient Education How to access health informa tion online - Detail Indication:Nonsmoker Start:05-Dec-2016 Instruction Type:Patient Education Patient Instructions Indication:Nonsmoker Start:05-Dec-2016 Instruction Type:Provider Instructions for Treatment How to access health informa tion online Indication:Nonsmoker Start:07-Nov-2016 Instruction Type:Patient Education How to access health informa tion online - Detail Indication:Nonsmoker Start:07-Nov-2016 Instruction Type:Patient Education Patient Instructions Indication:Nonsmoker Start:07-Nov-2016 Instruction Type:Provider Instructions for Treatment How to access health informa tion online Indication:Nonsmoker Start:15-Oct-2016 Instruction Type:Patient Education How to access health informa tion online Indication:BMI 45.0-49.9, adult Start:06-Aug-2016 Instruction Type:Patient Education How to access health informa tion online - Detail Indication:BMI 45.0-49.9, adult Start:06-Aug-2016 Instruction Type:Patient Education Patient Instructions Indication:BMI 45.0-49.9, adult Start:06-Aug-2016 Instruction Type:Provider Instructions for Treatment Patient Instructions Indication:Abnormal glucose tolerance test (Renamed from Abnormal glucose tolerance test (GTT)) Start:16-May-2016 Instruction Type:Provider Instructions for Treatment DISCONTINUED - HGB A1C (8303 6) Indication:Abnormal glucose tolerance test (Renamed from Abnormal glucose tolerance test (GTT)) Start:16-May-2016 Instruction Type:Patient Education How to access health informa tion online Indication:BMI 45.0-49.9, adult Start:20-Apr-2016 Instruction Type:Patient Education How to access health informa tion online - Detail Indication:BMI 45.0-49.9, adult Start:20-Apr-2016 Instruction Type:Patient Education Patient Instructions Indication:BMI 45.0-49.9, adult Start:20-Apr-2016 Instruction Type:Provider Instructions for Treatment How to access health informa tion online Indication:Nonsmoker Start:02-Apr-2016 Instruction Type:Patient Education How to access health informa tion online - Detail Indication:Nonsmoker Start:02-Apr-2016 Instruction Type:Patient Education Patient Instructions Indication:Nonsmoker Start:02-Apr-2016 Instruction Type:Provider Instructions for Treatment How to access health informa tion online - Detail Indication:Nonsmoker Start:28-Mar-2016 Instruction Type:Patient Education How to access health informa tion online Indication:Nonsmoker Start:28-Mar-2016 Instruction Type:Patient Education Patient Instructions Indication:Nonsmoker Start:28-Mar-2016 Instruction Type:Provider Instructions for Treatment Patient Instructions Indication:Vitamin D deficiency Start:14-Sep-2015 Instruction Type:Provider Instructions for Treatment How to access health informa tion online Indication:Rheumatoid arthritis Start:17-Aug-2015 Instruction Type:Patient Education How to access health informa tion online - Detail Indication:Rheumatoid arthritis Start:17-Aug-2015 Instruction Type:Patient Education Patient Instructions Indication:Rheumatoid arthritis Start:17-Aug-2015 Instruction Type:Provider Instructions for Treatment How to access health informa tion online Indication:Itching Start:23-Mar-2015 Instruction Type:Patient Education How to access health informa tion online - Detail Indication:Itching Start:23-Mar-2015 Instruction Type:Patient Education Patient Instructions Indication:Itching Start:23-Mar-2015 Instruction Type:Provider Instructions for Treatment How to access health informa tion online Indication:Neck pain Start:07-Feb-2015 Instruction Type:Patient Education How to access health informa tion online - Detail Indication:Neck pain Start:07-Feb-2015 Instruction Type:Patient Education Patient Instructions Indication:Neck pain Start:07-Feb-2015 Instruction Type:Provider Instructions for Treatment Patient Instructions Indication:Hypertension Start:07-Jun-2014 Instruction Type:Provider Instructions for Treatment How to access health informa tion online Indication:Hypertension Start:18-Jan-2014 Instruction Type:Patient Education How to access health informa tion online - Detail Indication:Hypertension Start:18-Jan-2014 Instruction Type:Patient Education Patient Instructions Indication:Hypertension Start:18-Jan-2014 Instruction Type:Provider Instructions for Treatment Patient Instructions Indication:Low back pain potentially associated with radiculopathy Start:21-Sep-2013 Instruction Type:Provider Instructions for Treatment Patient Instructions Indication:Low back pain potentially associated with radiculopathy Start:24-Jun-2013 Instruction Type:Provider Instructions for Treatment Patient Instructions Indication:Other intervertebral disc degeneration, lumbar region Start:18-May-2013 Instruction Type:Provider Instructions for Treatment Patient Instructions Indication:Radiculopathy of leg Start:24-Apr-2013 Instruction Type:Provider Instructions for Treatment Patient Instructions Indication:Hypertension Start:07-Jan-2013 Instruction Type:Provider Instructions for Treatment Patient Instructions Indication:Knee pain, left Start:23-Sep-2012 Instruction Type:Provider Instructions for Treatment Patient Instructions Indication:Eczema Start:03-Apr-2012 Instruction Type:Provider Instructions for Treatment Patient Instructions Indication:Allergic rhinitis Start:03-Mar-2012 Instruction Type:Provider Instructions for Treatment Patient Instructions Indication:Hypertension Start:31-Oct-2011 Instruction Type:Provider Instructions for Treatment Name Dates Details Nonsmoker : How to access he alth information online Indication:Nonsmoker Nonsmoker : How to access he alth information online - Detail Indication:Nonsmoker Nonsmoker : Patient Instruct ions Indication:Nonsmoker Abnormal glucose tolerance t est (Renamed from Abnormal glucose tolerance test (GTT)) : How to access health information online Indication:Abnormal glucose tolerance test (Renamed from Abnormal glucose tolerance test (GTT)) Abnormal glucose tolerance t est (Renamed from Abnormal glucose tolerance test (GTT)) : How to access health information online - Detail Indication:Abnormal glucose tolerance test (Renamed from Abnormal glucose tolerance test (GTT)) Abnormal glucose tolerance t est (Renamed from Abnormal glucose tolerance test (GTT)) : Patient Instructions Indication:Abnormal glucose tolerance test (Renamed from Abnormal glucose tolerance test (GTT)) BMI 45.0-49.9, adult : How t o access health information online Indication:BMI 45.0-49.9, adult BMI 45.0-49.9, adult : How t o access health information online - Detail Indication:BMI 45.0-49.9, adult BMI 45.0-49.9, adult : Maryellen nt Instructions Indication:BMI 45.0-49.9, adult Abnormal glucose tolerance t est (Renamed from Abnormal glucose tolerance test (GTT)) : DISCONTINUED - HGB A1C (08872) Indication:Abnormal glucose tolerance test (Renamed from Abnormal glucose tolerance test (GTT)) Vitamin D deficiency : Mariee nt Instructions Indication:Vitamin D deficiency Rheumatoid arthritis : How t o access health information online Indication:Rheumatoid arthritis Rheumatoid arthritis : How t o access health information online - Detail Indication:Rheumatoid arthritis Rheumatoid arthritis : Patie nt Instructions Indication:Rheumatoid arthritis Itching : How to access heal th information online Indication:Itching Itching : How to access heal th information online - Detail Indication:Itching Itching : Patient Instructio ns Indication:Itching Neck pain : How to access he alth information online Indication:Neck pain Neck pain : How to access he alth information online - Detail Indication:Neck pain Neck pain : Patient Instruct ions Indication:Neck pain Hypertension : Patient Instr uctions Indication:Hypertension Hypertension : How to access health information online Indication:Hypertension Hypertension : How to access health information online - Detail Indication:Hypertension Low back pain potentially as sociated with radiculopathy : Patient Instructions Indication:Low back pain potentially associated with radiculopathy Other intervertebral disc de generation, lumbar region : Patient Instructions Indication:Other intervertebral disc degeneration, lumbar region Radiculopathy of leg : Patie nt Instructions Indication:Radiculopathy of leg Knee pain, left : Patient In structions Indication:Knee pain, left Eczema : Patient Instruction s Indication:Eczema Allergic rhinitis : Patient Instructions Indication:Allergic rhinitis Name Dates Details Nonsmoker : How to access he alth information online Indication:Nonsmoker Nonsmoker : How to access he alth information online - Detail Indication:Nonsmoker Nonsmoker : Patient Instruct ions Indication:Nonsmoker Abnormal glucose tolerance t est (Renamed from Abnormal glucose tolerance test (GTT)) : How to access health information online Indication:Abnormal glucose tolerance test (Renamed from Abnormal glucose tolerance test (GTT)) Abnormal glucose tolerance t est (Renamed from Abnormal glucose tolerance test (GTT)) : How to access health information online - Detail Indication:Abnormal glucose tolerance test (Renamed from Abnormal glucose tolerance test (GTT)) Abnormal glucose tolerance t est (Renamed from Abnormal glucose tolerance test (GTT)) : Patient Instructions Indication:Abnormal glucose tolerance test (Renamed from Abnormal glucose tolerance test (GTT)) BMI 45.0-49.9, adult : How t o access health information online Indication:BMI 45.0-49.9, adult BMI 45.0-49.9, adult : How t o access health information online - Detail Indication:BMI 45.0-49.9, adult BMI 45.0-49.9, adult : Patie nt Instructions Indication:BMI 45.0-49.9, adult Abnormal glucose tolerance t est (Renamed from Abnormal glucose tolerance test (GTT)) : DISCONTINUED - HGB A1C (25369) Indication:Abnormal glucose tolerance test (Renamed from Abnormal glucose tolerance test (GTT)) Vitamin D deficiency : Patie nt Instructions Indication:Vitamin D deficiency Rheumatoid arthritis : How t o access health information online Indication:Rheumatoid arthritis Rheumatoid arthritis : How t o access health information online - Detail Indication:Rheumatoid arthritis Rheumatoid arthritis : Patie nt Instructions Indication:Rheumatoid arthritis Itching : How to access heal th information online Indication:Itching Itching : How to access heal th information online - Detail Indication:Itching Itching : Patient Instructio ns Indication:Itching Neck pain : How to access he alth information online Indication:Neck pain Neck pain : How to access he alth information online - Detail Indication:Neck pain Neck pain : Patient Instruct ions Indication:Neck pain Hypertension : Patient Instr uctions Indication:Hypertension Hypertension : How to access health information online Indication:Hypertension Hypertension : How to access health information online - Detail Indication:Hypertension Low back pain potentially as sociated with radiculopathy : Patient Instructions Indication:Low back pain potentially associated with radiculopathy Other intervertebral disc de generation, lumbar region : Patient Instructions Indication:Other intervertebral disc degeneration, lumbar region Radiculopathy of leg : Maryellen nt Instructions Indication:Radiculopathy of leg Knee pain, left : Patient In structions Indication:Knee pain, left Eczema : Patient Instruction s Indication:Eczema Allergic rhinitis : Patient Instructions Indication:Allergic rhinitis Name Dates Details How to access health informa tion online Indication:BMI 40.0-44.9, adult Start:21-Aug-2018 Instruction Type:Patient Education How to access health informa tion online - Detail Indication:BMI 40.0-44.9, adult Start:21-Aug-2018 Instruction Type:Patient Education Patient Instructions Indication:BMI 40.0-44.9, adult Start:21-Aug-2018 Instruction Type:Provider Instructions for Treatment How to access health informa tion online Indication:BMI 40.0-44.9, adult Start:13-Aug-2018 Instruction Type:Patient Education How to access health informa tion online - Detail Indication:BMI 40.0-44.9, adult Start:13-Aug-2018 Instruction Type:Patient Education Patient Instructions Indication:BMI 40.0-44.9, adult Start:13-Aug-2018 Instruction Type:Provider Instructions for Treatment How to access health informa tion online Indication:BMI 40.0-44.9, adult Start:21-May-2018 Instruction Type:Patient Education How to access health informa tion online - Detail Indication:BMI 40.0-44.9, adult Start:21-May-2018 Instruction Type:Patient Education Patient Instructions Indication:BMI 40.0-44.9, adult Start:21-May-2018 Instruction Type:Provider Instructions for Treatment How to access health informa tion online Indication:Nonsmoker Start:23-Apr-2018 Instruction Type:Patient Education How to access health informa tion online - Detail Indication:Nonsmoker Start:23-Apr-2018 Instruction Type:Patient Education Patient Instructions Indication:Nonsmoker Start:23-Apr-2018 Instruction Type:Provider Instructions for Treatment How to access health informa tion online Indication:BMI 40.0-44.9, adult Start:09-Apr-2018 Instruction Type:Patient Education How to access health informa tion online - Detail Indication:BMI 40.0-44.9, adult Start:09-Apr-2018 Instruction Type:Patient Education Patient Instructions Indication:BMI 40.0-44.9, adult Start:09-Apr-2018 Instruction Type:Provider Instructions for Treatment How to access health informa tion online Indication:Nonsmoker Start:12-Mar-2018 Instruction Type:Patient Education How to access health informa tion online - Detail Indication:Nonsmoker Start:12-Mar-2018 Instruction Type:Patient Education Patient Instructions Indication:Nonsmoker Start:12-Mar-2018 Instruction Type:Provider Instructions for Treatment How to access health informa tion online Indication:Nonsmoker Start:05-Mar-2018 Instruction Type:Patient Education How to access health informa tion online - Detail Indication:Nonsmoker Start:05-Mar-2018 Instruction Type:Patient Education Patient Instructions Indication:Nonsmoker Start:05-Mar-2018 Instruction Type:Provider Instructions for Treatment How to access health informa tion online Indication:Nonsmoker Start:12-Feb-2018 Instruction Type:Patient Education How to access health informa tion online - Detail Indication:Nonsmoker Start:12-Feb-2018 Instruction Type:Patient Education Patient Instructions Indication:Nonsmoker Start:12-Feb-2018 Instruction Type:Provider Instructions for Treatment How to access health informa tion online Indication:Nonsmoker Start:06-Nov-2017 Instruction Type:Patient Education How to access health informa tion online - Detail Indication:Nonsmoker Start:06-Nov-2017 Instruction Type:Patient Education How to access health informa tion online Indication:Nonsmoker Start:09-Oct-2017 Instruction Type:Patient Education How to access health informa tion online - Detail Indication:Nonsmoker Start:09-Oct-2017 Instruction Type:Patient Education Patient Instructions Indication:Nonsmoker Start:09-Oct-2017 Instruction Type:Provider Instructions for Treatment How to access health informa tion online Indication:Nonsmoker Start:02-Oct-2017 Instruction Type:Patient Education How to access health informa tion online - Detail Indication:Nonsmoker Start:02-Oct-2017 Instruction Type:Patient Education Patient Instructions Indication:Nonsmoker Start:02-Oct-2017 Instruction Type:Provider Instructions for Treatment How to access health informa tion online Indication:Nonsmoker Start:25-Sep-2017 Instruction Type:Patient Education How to access health informa tion online - Detail Indication:Nonsmoker Start:25-Sep-2017 Instruction Type:Patient Education Patient Instructions Indication:Nonsmoker Start:25-Sep-2017 Instruction Type:Provider Instructions for Treatment How to access health informa tion online Indication:Abnormal glucose tolerance test (Renamed from Abnormal glucose tolerance test (GTT)) Start:03-Jul-2017 Instruction Type:Patient Education How to access health informa tion online - Detail Indication:Abnormal glucose tolerance test (Renamed from Abnormal glucose tolerance test (GTT)) Start:03-Jul-2017 Instruction Type:Patient Education Patient Instructions Indication:Abnormal glucose tolerance test (Renamed from Abnormal glucose tolerance test (GTT)) Start:03-Jul-2017 Instruction Type:Provider Instructions for Treatment How to access health informa tion online Indication:Nonsmoker Start:27-Feb-2017 Instruction Type:Patient Education How to access health informa tion online - Detail Indication:Nonsmoker Start:27-Feb-2017 Instruction Type:Patient Education Patient Instructions Indication:Nonsmoker Start:27-Feb-2017 Instruction Type:Provider Instructions for Treatment How to access health informa tion online Indication:Nonsmoker Start:05-Dec-2016 Instruction Type:Patient Education How to access health informa tion online - Detail Indication:Nonsmoker Start:05-Dec-2016 Instruction Type:Patient Education Patient Instructions Indication:Nonsmoker Start:05-Dec-2016 Instruction Type:Provider Instructions for Treatment How to access health informa tion online Indication:Nonsmoker Start:07-Nov-2016 Instruction Type:Patient Education How to access health informa tion online - Detail Indication:Nonsmoker Start:07-Nov-2016 Instruction Type:Patient Education Patient Instructions Indication:Nonsmoker Start:07-Nov-2016 Instruction Type:Provider Instructions for Treatment How to access health informa tion online Indication:Nonsmoker Start:15-Oct-2016 Instruction Type:Patient Education How to access health informa tion online Indication:BMI 45.0-49.9, adult Start:06-Aug-2016 Instruction Type:Patient Education How to access health informa tion online - Detail Indication:BMI 45.0-49.9, adult Start:06-Aug-2016 Instruction Type:Patient Education Patient Instructions Indication:BMI 45.0-49.9, adult Start:06-Aug-2016 Instruction Type:Provider Instructions for Treatment Patient Instructions Indication:Abnormal glucose tolerance test (Renamed from Abnormal glucose tolerance test (GTT)) Start:16-May-2016 Instruction Type:Provider Instructions for Treatment DISCONTINUED - HGB A1C (8303 6) Indication:Abnormal glucose tolerance test (Renamed from Abnormal glucose tolerance test (GTT)) Start:16-May-2016 Instruction Type:Patient Education How to access health informa tion online Indication:BMI 45.0-49.9, adult Start:20-Apr-2016 Instruction Type:Patient Education How to access health informa tion online - Detail Indication:BMI 45.0-49.9, adult Start:20-Apr-2016 Instruction Type:Patient Education Patient Instructions Indication:BMI 45.0-49.9, adult Start:20-Apr-2016 Instruction Type:Provider Instructions for Treatment How to access health informa tion online Indication:Nonsmoker Start:02-Apr-2016 Instruction Type:Patient Education How to access health informa tion online - Detail Indication:Nonsmoker Start:02-Apr-2016 Instruction Type:Patient Education Patient Instructions Indication:Nonsmoker Start:02-Apr-2016 Instruction Type:Provider Instructions for Treatment How to access health informa tion online - Detail Indication:Nonsmoker Start:28-Mar-2016 Instruction Type:Patient Education How to access health informa tion online Indication:Nonsmoker Start:28-Mar-2016 Instruction Type:Patient Education Patient Instructions Indication:Nonsmoker Start:28-Mar-2016 Instruction Type:Provider Instructions for Treatment Patient Instructions Indication:Vitamin D deficiency Start:14-Sep-2015 Instruction Type:Provider Instructions for Treatment How to access health informa tion online Indication:Rheumatoid arthritis Start:17-Aug-2015 Instruction Type:Patient Education How to access health informa tion online - Detail Indication:Rheumatoid arthritis Start:17-Aug-2015 Instruction Type:Patient Education Patient Instructions Indication:Rheumatoid arthritis Start:17-Aug-2015 Instruction Type:Provider Instructions for Treatment How to access health informa tion online Indication:Itching Start:23-Mar-2015 Instruction Type:Patient Education How to access health informa tion online - Detail Indication:Itching Start:23-Mar-2015 Instruction Type:Patient Education Patient Instructions Indication:Itching Start:23-Mar-2015 Instruction Type:Provider Instructions for Treatment How to access health informa tion online Indication:Neck pain Start:07-Feb-2015 Instruction Type:Patient Education How to access health informa tion online - Detail Indication:Neck pain Start:07-Feb-2015 Instruction Type:Patient Education Patient Instructions Indication:Neck pain Start:07-Feb-2015 Instruction Type:Provider Instructions for Treatment Patient Instructions Indication:Hypertension Start:07-Jun-2014 Instruction Type:Provider Instructions for Treatment How to access health informa tion online Indication:Hypertension Start:18-Jan-2014 Instruction Type:Patient Education How to access health informa tion online - Detail Indication:Hypertension Start:18-Jan-2014 Instruction Type:Patient Education Patient Instructions Indication:Hypertension Start:18-Jan-2014 Instruction Type:Provider Instructions for Treatment Patient Instructions Indication:Low back pain potentially associated with radiculopathy Start:21-Sep-2013 Instruction Type:Provider Instructions for Treatment Patient Instructions Indication:Low back pain potentially associated with radiculopathy Start:24-Jun-2013 Instruction Type:Provider Instructions for Treatment Patient Instructions Indication:Other intervertebral disc degeneration, lumbar region Start:18-May-2013 Instruction Type:Provider Instructions for Treatment Patient Instructions Indication:Radiculopathy of leg Start:24-Apr-2013 Instruction Type:Provider Instructions for Treatment Patient Instructions Indication:Hypertension Start:07-Jan-2013 Instruction Type:Provider Instructions for Treatment Patient Instructions Indication:Knee pain, left Start:23-Sep-2012 Instruction Type:Provider Instructions for Treatment Patient Instructions Indication:Eczema Start:03-Apr-2012 Instruction Type:Provider Instructions for Treatment Patient Instructions Indication:Allergic rhinitis Start:03-Mar-2012 Instruction Type:Provider Instructions for Treatment Patient Instructions Indication:Hypertension Start:31-Oct-2011 Instruction Type:Provider Instructions for Treatment Name Dates Details How to access health informa tion online Indication:Leg swelling Start:29-Oct-2018 Instruction Type:Patient Education How to access health informa tion online - Detail Indication:Leg swelling Start:29-Oct-2018 Instruction Type:Patient Education Patient Instructions Indication:Leg swelling Start:29-Oct-2018 Instruction Type:Provider Instructions for Treatment How to access health informa tion online Indication:BMI 40.0-44.9, adult Start:21-Aug-2018 Instruction Type:Patient Education How to access health informa tion online - Detail Indication:BMI 40.0-44.9, adult Start:21-Aug-2018 Instruction Type:Patient Education Patient Instructions Indication:BMI 40.0-44.9, adult Start:21-Aug-2018 Instruction Type:Provider Instructions for Treatment How to access health informa tion online Indication:BMI 40.0-44.9, adult Start:13-Aug-2018 Instruction Type:Patient Education How to access health informa tion online - Detail Indication:BMI 40.0-44.9, adult Start:13-Aug-2018 Instruction Type:Patient Education Patient Instructions Indication:BMI 40.0-44.9, adult Start:13-Aug-2018 Instruction Type:Provider Instructions for Treatment How to access health informa tion online Indication:BMI 40.0-44.9, adult Start:21-May-2018 Instruction Type:Patient Education How to access health informa tion online - Detail Indication:BMI 40.0-44.9, adult Start:21-May-2018 Instruction Type:Patient Education Patient Instructions Indication:BMI 40.0-44.9, adult Start:21-May-2018 Instruction Type:Provider Instructions for Treatment How to access health informa tion online Indication:Nonsmoker Start:23-Apr-2018 Instruction Type:Patient Education How to access health informa tion online - Detail Indication:Nonsmoker Start:23-Apr-2018 Instruction Type:Patient Education Patient Instructions Indication:Nonsmoker Start:23-Apr-2018 Instruction Type:Provider Instructions for Treatment How to access health informa tion online Indication:BMI 40.0-44.9, adult Start:09-Apr-2018 Instruction Type:Patient Education How to access health informa tion online - Detail Indication:BMI 40.0-44.9, adult Start:09-Apr-2018 Instruction Type:Patient Education Patient Instructions Indication:BMI 40.0-44.9, adult Start:09-Apr-2018 Instruction Type:Provider Instructions for Treatment How to access health informa tion online Indication:Nonsmoker Start:12-Mar-2018 Instruction Type:Patient Education How to access health informa tion online - Detail Indication:Nonsmoker Start:12-Mar-2018 Instruction Type:Patient Education Patient Instructions Indication:Nonsmoker Start:12-Mar-2018 Instruction Type:Provider Instructions for Treatment How to access health informa tion online Indication:Nonsmoker Start:05-Mar-2018 Instruction Type:Patient Education How to access health informa tion online - Detail Indication:Nonsmoker Start:05-Mar-2018 Instruction Type:Patient Education Patient Instructions Indication:Nonsmoker Start:05-Mar-2018 Instruction Type:Provider Instructions for Treatment How to access health informa tion online Indication:Nonsmoker Start:12-Feb-2018 Instruction Type:Patient Education How to access health informa tion online - Detail Indication:Nonsmoker Start:12-Feb-2018 Instruction Type:Patient Education Patient Instructions Indication:Nonsmoker Start:12-Feb-2018 Instruction Type:Provider Instructions for Treatment How to access health informa tion online Indication:Nonsmoker Start:06-Nov-2017 Instruction Type:Patient Education How to access health informa tion online - Detail Indication:Nonsmoker Start:06-Nov-2017 Instruction Type:Patient Education How to access health informa tion online Indication:Nonsmoker Start:09-Oct-2017 Instruction Type:Patient Education How to access health informa tion online - Detail Indication:Nonsmoker Start:09-Oct-2017 Instruction Type:Patient Education Patient Instructions Indication:Nonsmoker Start:09-Oct-2017 Instruction Type:Provider Instructions for Treatment How to access health informa tion online Indication:Nonsmoker Start:02-Oct-2017 Instruction Type:Patient Education How to access health informa tion online - Detail Indication:Nonsmoker Start:02-Oct-2017 Instruction Type:Patient Education Patient Instructions Indication:Nonsmoker Start:02-Oct-2017 Instruction Type:Provider Instructions for Treatment How to access health informa tion online Indication:Nonsmoker Start:25-Sep-2017 Instruction Type:Patient Education How to access health informa tion online - Detail Indication:Nonsmoker Start:25-Sep-2017 Instruction Type:Patient Education Patient Instructions Indication:Nonsmoker Start:25-Sep-2017 Instruction Type:Provider Instructions for Treatment How to access health informa tion online Indication:Abnormal glucose tolerance test (Renamed from Abnormal glucose tolerance test (GTT)) Start:03-Jul-2017 Instruction Type:Patient Education How to access health informa tion online - Detail Indication:Abnormal glucose tolerance test (Renamed from Abnormal glucose tolerance test (GTT)) Start:03-Jul-2017 Instruction Type:Patient Education Patient Instructions Indication:Abnormal glucose tolerance test (Renamed from Abnormal glucose tolerance test (GTT)) Start:03-Jul-2017 Instruction Type:Provider Instructions for Treatment How to access health informa tion online Indication:Nonsmoker Start:27-Feb-2017 Instruction Type:Patient Education How to access health informa tion online - Detail Indication:Nonsmoker Start:27-Feb-2017 Instruction Type:Patient Education Patient Instructions Indication:Nonsmoker Start:27-Feb-2017 Instruction Type:Provider Instructions for Treatment How to access health informa tion online Indication:Nonsmoker Start:05-Dec-2016 Instruction Type:Patient Education How to access health informa tion online - Detail Indication:Nonsmoker Start:05-Dec-2016 Instruction Type:Patient Education Patient Instructions Indication:Nonsmoker Start:05-Dec-2016 Instruction Type:Provider Instructions for Treatment How to access health informa tion online Indication:Nonsmoker Start:07-Nov-2016 Instruction Type:Patient Education How to access health informa tion online - Detail Indication:Nonsmoker Start:07-Nov-2016 Instruction Type:Patient Education Patient Instructions Indication:Nonsmoker Start:07-Nov-2016 Instruction Type:Provider Instructions for Treatment How to access health informa tion online Indication:Nonsmoker Start:15-Oct-2016 Instruction Type:Patient Education How to access health informa tion online Indication:BMI 45.0-49.9, adult Start:06-Aug-2016 Instruction Type:Patient Education How to access health informa tion online - Detail Indication:BMI 45.0-49.9, adult Start:06-Aug-2016 Instruction Type:Patient Education Patient Instructions Indication:BMI 45.0-49.9, adult Start:06-Aug-2016 Instruction Type:Provider Instructions for Treatment Patient Instructions Indication:Abnormal glucose tolerance test (Renamed from Abnormal glucose tolerance test (GTT)) Start:16-May-2016 Instruction Type:Provider Instructions for Treatment DISCONTINUED - HGB A1C (8303 6) Indication:Abnormal glucose tolerance test (Renamed from Abnormal glucose tolerance test (GTT)) Start:16-May-2016 Instruction Type:Patient Education How to access health informa tion online Indication:BMI 45.0-49.9, adult Start:20-Apr-2016 Instruction Type:Patient Education How to access health informa tion online - Detail Indication:BMI 45.0-49.9, adult Start:20-Apr-2016 Instruction Type:Patient Education Patient Instructions Indication:BMI 45.0-49.9, adult Start:20-Apr-2016 Instruction Type:Provider Instructions for Treatment How to access health informa tion online Indication:Nonsmoker Start:02-Apr-2016 Instruction Type:Patient Education How to access health informa tion online - Detail Indication:Nonsmoker Start:02-Apr-2016 Instruction Type:Patient Education Patient Instructions Indication:Nonsmoker Start:02-Apr-2016 Instruction Type:Provider Instructions for Treatment How to access health informa tion online - Detail Indication:Nonsmoker Start:28-Mar-2016 Instruction Type:Patient Education How to access health informa tion online Indication:Nonsmoker Start:28-Mar-2016 Instruction Type:Patient Education Patient Instructions Indication:Nonsmoker Start:28-Mar-2016 Instruction Type:Provider Instructions for Treatment Patient Instructions Indication:Vitamin D deficiency Start:14-Sep-2015 Instruction Type:Provider Instructions for Treatment How to access health informa tion online Indication:Rheumatoid arthritis Start:17-Aug-2015 Instruction Type:Patient Education How to access health informa tion online - Detail Indication:Rheumatoid arthritis Start:17-Aug-2015 Instruction Type:Patient Education Patient Instructions Indication:Rheumatoid arthritis Start:17-Aug-2015 Instruction Type:Provider Instructions for Treatment How to access health informa tion online Indication:Itching Start:23-Mar-2015 Instruction Type:Patient Education How to access health informa tion online - Detail Indication:Itching Start:23-Mar-2015 Instruction Type:Patient Education Patient Instructions Indication:Itching Start:23-Mar-2015 Instruction Type:Provider Instructions for Treatment How to access health informa tion online Indication:Neck pain Start:07-Feb-2015 Instruction Type:Patient Education How to access health informa tion online - Detail Indication:Neck pain Start:07-Feb-2015 Instruction Type:Patient Education Patient Instructions Indication:Neck pain Start:07-Feb-2015 Instruction Type:Provider Instructions for Treatment Patient Instructions Indication:Hypertension Start:07-Jun-2014 Instruction Type:Provider Instructions for Treatment How to access health informa tion online Indication:Hypertension Start:18-Jan-2014 Instruction Type:Patient Education How to access health informa tion online - Detail Indication:Hypertension Start:18-Jan-2014 Instruction Type:Patient Education Patient Instructions Indication:Hypertension Start:18-Jan-2014 Instruction Type:Provider Instructions for Treatment Patient Instructions Indication:Low back pain potentially associated with radiculopathy Start:21-Sep-2013 Instruction Type:Provider Instructions for Treatment Patient Instructions Indication:Low back pain potentially associated with radiculopathy Start:24-Jun-2013 Instruction Type:Provider Instructions for Treatment Patient Instructions Indication:Other intervertebral disc degeneration, lumbar region Start:18-May-2013 Instruction Type:Provider Instructions for Treatment Patient Instructions Indication:Radiculopathy of leg Start:24-Apr-2013 Instruction Type:Provider Instructions for Treatment Patient Instructions Indication:Hypertension Start:07-Jan-2013 Instruction Type:Provider Instructions for Treatment Patient Instructions Indication:Knee pain, left Start:23-Sep-2012 Instruction Type:Provider Instructions for Treatment Patient Instructions Indication:Eczema Start:03-Apr-2012 Instruction Type:Provider Instructions for Treatment Patient Instructions Indication:Allergic rhinitis Start:03-Mar-2012 Instruction Type:Provider Instructions for Treatment Patient Instructions Indication:Hypertension Start:31-Oct-2011 Instruction Type:Provider Instructions for Treatment Name Dates Details How to access health informa tion online Indication:Leg swelling Start:29-Oct-2018 Instruction Type:Patient Education How to access health informa tion online - Detail Indication:Leg swelling Start:29-Oct-2018 Instruction Type:Patient Education Patient Instructions Indication:Leg swelling Start:29-Oct-2018 Instruction Type:Provider Instructions for Treatment How to access health informa tion online Indication:BMI 40.0-44.9, adult Start:21-Aug-2018 Instruction Type:Patient Education How to access health informa tion online - Detail Indication:BMI 40.0-44.9, adult Start:21-Aug-2018 Instruction Type:Patient Education Patient Instructions Indication:BMI 40.0-44.9, adult Start:21-Aug-2018 Instruction Type:Provider Instructions for Treatment How to access health informa tion online Indication:BMI 40.0-44.9, adult Start:13-Aug-2018 Instruction Type:Patient Education How to access health informa tion online - Detail Indication:BMI 40.0-44.9, adult Start:13-Aug-2018 Instruction Type:Patient Education Patient Instructions Indication:BMI 40.0-44.9, adult Start:13-Aug-2018 Instruction Type:Provider Instructions for Treatment How to access health informa tion online Indication:BMI 40.0-44.9, adult Start:21-May-2018 Instruction Type:Patient Education How to access health informa tion online - Detail Indication:BMI 40.0-44.9, adult Start:21-May-2018 Instruction Type:Patient Education Patient Instructions Indication:BMI 40.0-44.9, adult Start:21-May-2018 Instruction Type:Provider Instructions for Treatment How to access health informa tion online Indication:Nonsmoker Start:23-Apr-2018 Instruction Type:Patient Education How to access health informa tion online - Detail Indication:Nonsmoker Start:23-Apr-2018 Instruction Type:Patient Education Patient Instructions Indication:Nonsmoker Start:23-Apr-2018 Instruction Type:Provider Instructions for Treatment How to access health informa tion online Indication:BMI 40.0-44.9, adult Start:09-Apr-2018 Instruction Type:Patient Education How to access health informa tion online - Detail Indication:BMI 40.0-44.9, adult Start:09-Apr-2018 Instruction Type:Patient Education Patient Instructions Indication:BMI 40.0-44.9, adult Start:09-Apr-2018 Instruction Type:Provider Instructions for Treatment How to access health informa tion online Indication:Nonsmoker Start:12-Mar-2018 Instruction Type:Patient Education How to access health informa tion online - Detail Indication:Nonsmoker Start:12-Mar-2018 Instruction Type:Patient Education Patient Instructions Indication:Nonsmoker Start:12-Mar-2018 Instruction Type:Provider Instructions for Treatment How to access health informa tion online Indication:Nonsmoker Start:05-Mar-2018 Instruction Type:Patient Education How to access health informa tion online - Detail Indication:Nonsmoker Start:05-Mar-2018 Instruction Type:Patient Education Patient Instructions Indication:Nonsmoker Start:05-Mar-2018 Instruction Type:Provider Instructions for Treatment How to access health informa tion online Indication:Nonsmoker Start:12-Feb-2018 Instruction Type:Patient Education How to access health informa tion online - Detail Indication:Nonsmoker Start:12-Feb-2018 Instruction Type:Patient Education Patient Instructions Indication:Nonsmoker Start:12-Feb-2018 Instruction Type:Provider Instructions for Treatment How to access health informa tion online Indication:Nonsmoker Start:06-Nov-2017 Instruction Type:Patient Education How to access health informa tion online - Detail Indication:Nonsmoker Start:06-Nov-2017 Instruction Type:Patient Education How to access health informa tion online Indication:Nonsmoker Start:09-Oct-2017 Instruction Type:Patient Education How to access health informa tion online - Detail Indication:Nonsmoker Start:09-Oct-2017 Instruction Type:Patient Education Patient Instructions Indication:Nonsmoker Start:09-Oct-2017 Instruction Type:Provider Instructions for Treatment How to access health informa tion online Indication:Nonsmoker Start:02-Oct-2017 Instruction Type:Patient Education How to access health informa tion online - Detail Indication:Nonsmoker Start:02-Oct-2017 Instruction Type:Patient Education Patient Instructions Indication:Nonsmoker Start:02-Oct-2017 Instruction Type:Provider Instructions for Treatment How to access health informa tion online Indication:Nonsmoker Start:25-Sep-2017 Instruction Type:Patient Education How to access health informa tion online - Detail Indication:Nonsmoker Start:25-Sep-2017 Instruction Type:Patient Education Patient Instructions Indication:Nonsmoker Start:25-Sep-2017 Instruction Type:Provider Instructions for Treatment How to access health informa tion online Indication:Abnormal glucose tolerance test (Renamed from Abnormal glucose tolerance test (GTT)) Start:03-Jul-2017 Instruction Type:Patient Education How to access health informa tion online - Detail Indication:Abnormal glucose tolerance test (Renamed from Abnormal glucose tolerance test (GTT)) Start:03-Jul-2017 Instruction Type:Patient Education Patient Instructions Indication:Abnormal glucose tolerance test (Renamed from Abnormal glucose tolerance test (GTT)) Start:03-Jul-2017 Instruction Type:Provider Instructions for Treatment How to access health informa tion online Indication:Nonsmoker Start:27-Feb-2017 Instruction Type:Patient Education How to access health informa tion online - Detail Indication:Nonsmoker Start:27-Feb-2017 Instruction Type:Patient Education Patient Instructions Indication:Nonsmoker Start:27-Feb-2017 Instruction Type:Provider Instructions for Treatment How to access health informa tion online Indication:Nonsmoker Start:05-Dec-2016 Instruction Type:Patient Education How to access health informa tion online - Detail Indication:Nonsmoker Start:05-Dec-2016 Instruction Type:Patient Education Patient Instructions Indication:Nonsmoker Start:05-Dec-2016 Instruction Type:Provider Instructions for Treatment How to access health informa tion online Indication:Nonsmoker Start:07-Nov-2016 Instruction Type:Patient Education How to access health informa tion online - Detail Indication:Nonsmoker Start:07-Nov-2016 Instruction Type:Patient Education Patient Instructions Indication:Nonsmoker Start:07-Nov-2016 Instruction Type:Provider Instructions for Treatment How to access health informa tion online Indication:Nonsmoker Start:15-Oct-2016 Instruction Type:Patient Education How to access health informa tion online Indication:BMI 45.0-49.9, adult Start:06-Aug-2016 Instruction Type:Patient Education How to access health informa tion online - Detail Indication:BMI 45.0-49.9, adult Start:06-Aug-2016 Instruction Type:Patient Education Patient Instructions Indication:BMI 45.0-49.9, adult Start:06-Aug-2016 Instruction Type:Provider Instructions for Treatment Patient Instructions Indication:Abnormal glucose tolerance test (Renamed from Abnormal glucose tolerance test (GTT)) Start:16-May-2016 Instruction Type:Provider Instructions for Treatment DISCONTINUED - HGB A1C (8303 6) Indication:Abnormal glucose tolerance test (Renamed from Abnormal glucose tolerance test (GTT)) Start:16-May-2016 Instruction Type:Patient Education How to access health informa tion online Indication:BMI 45.0-49.9, adult Start:20-Apr-2016 Instruction Type:Patient Education How to access health informa tion online - Detail Indication:BMI 45.0-49.9, adult Start:20-Apr-2016 Instruction Type:Patient Education Patient Instructions Indication:BMI 45.0-49.9, adult Start:20-Apr-2016 Instruction Type:Provider Instructions for Treatment How to access health informa tion online Indication:Nonsmoker Start:02-Apr-2016 Instruction Type:Patient Education How to access health informa tion online - Detail Indication:Nonsmoker Start:02-Apr-2016 Instruction Type:Patient Education Patient Instructions Indication:Nonsmoker Start:02-Apr-2016 Instruction Type:Provider Instructions for Treatment How to access health informa tion online - Detail Indication:Nonsmoker Start:28-Mar-2016 Instruction Type:Patient Education How to access health informa tion online Indication:Nonsmoker Start:28-Mar-2016 Instruction Type:Patient Education Patient Instructions Indication:Nonsmoker Start:28-Mar-2016 Instruction Type:Provider Instructions for Treatment Patient Instructions Indication:Vitamin D deficiency Start:14-Sep-2015 Instruction Type:Provider Instructions for Treatment How to access health informa tion online Indication:Rheumatoid arthritis Start:17-Aug-2015 Instruction Type:Patient Education How to access health informa tion online - Detail Indication:Rheumatoid arthritis Start:17-Aug-2015 Instruction Type:Patient Education Patient Instructions Indication:Rheumatoid arthritis Start:17-Aug-2015 Instruction Type:Provider Instructions for Treatment How to access health informa tion online Indication:Itching Start:23-Mar-2015 Instruction Type:Patient Education How to access health informa tion online - Detail Indication:Itching Start:23-Mar-2015 Instruction Type:Patient Education Patient Instructions Indication:Itching Start:23-Mar-2015 Instruction Type:Provider Instructions for Treatment How to access health informa tion online Indication:Neck pain Start:07-Feb-2015 Instruction Type:Patient Education How to access health informa tion online - Detail Indication:Neck pain Start:07-Feb-2015 Instruction Type:Patient Education Patient Instructions Indication:Neck pain Start:07-Feb-2015 Instruction Type:Provider Instructions for Treatment Patient Instructions Indication:Hypertension Start:07-Jun-2014 Instruction Type:Provider Instructions for Treatment How to access health informa tion online Indication:Hypertension Start:18-Jan-2014 Instruction Type:Patient Education How to access health informa tion online - Detail Indication:Hypertension Start:18-Jan-2014 Instruction Type:Patient Education Patient Instructions Indication:Hypertension Start:18-Jan-2014 Instruction Type:Provider Instructions for Treatment Patient Instructions Indication:Low back pain potentially associated with radiculopathy Start:21-Sep-2013 Instruction Type:Provider Instructions for Treatment Patient Instructions Indication:Low back pain potentially associated with radiculopathy Start:24-Jun-2013 Instruction Type:Provider Instructions for Treatment Patient Instructions Indication:Other intervertebral disc degeneration, lumbar region Start:18-May-2013 Instruction Type:Provider Instructions for Treatment Patient Instructions Indication:Radiculopathy of leg Start:24-Apr-2013 Instruction Type:Provider Instructions for Treatment Patient Instructions Indication:Hypertension Start:07-Jan-2013 Instruction Type:Provider Instructions for Treatment Patient Instructions Indication:Knee pain, left Start:23-Sep-2012 Instruction Type:Provider Instructions for Treatment Patient Instructions Indication:Eczema Start:03-Apr-2012 Instruction Type:Provider Instructions for Treatment Patient Instructions Indication:Allergic rhinitis Start:03-Mar-2012 Instruction Type:Provider Instructions for Treatment Patient Instructions Indication:Hypertension Start:31-Oct-2011 Instruction Type:Provider Instructions for Treatment Name Dates Details How to access health informa tion online Indication:Nonsmoker Start:02-Dec-2019 Instruction Type:Patient Education How to access health informa tion online - Detail Indication:Nonsmoker Start:02-Dec-2019 Instruction Type:Patient Education Patient Instructions Indication:Nonsmoker Start:02-Dec-2019 Instruction Type:Provider Instructions for Treatment How to access health informa tion online Indication:Abnormal glucose tolerance test (Renamed from Abnormal glucose tolerance test (GTT)) Start:29-Jul-2019 Instruction Type:Patient Education How to access health informa tion online - Detail Indication:Abnormal glucose tolerance test (Renamed from Abnormal glucose tolerance test (GTT)) Start:29-Jul-2019 Instruction Type:Patient Education Patient Instructions Indication:Abnormal glucose tolerance test (Renamed from Abnormal glucose tolerance test (GTT)) Start:29-Jul-2019 Instruction Type:Provider Instructions for Treatment How to access health informa tion online Indication:BMI 45.0-49.9, adult Start:25-Mar-2019 Instruction Type:Patient Education How to access health informa tion online - Detail Indication:BMI 45.0-49.9, adult Start:25-Mar-2019 Instruction Type:Patient Education Patient Instructions Indication:BMI 45.0-49.9, adult Start:25-Mar-2019 Instruction Type:Provider Instructions for Treatment How to access health informa tion online Indication:Nonsmoker Start:19-Nov-2018 Instruction Type:Patient Education How to access health informa tion online - Detail Indication:Nonsmoker Start:19-Nov-2018 Instruction Type:Patient Education Patient Instructions Indication:Nonsmoker Start:19-Nov-2018 Instruction Type:Provider Instructions for Treatment How to access health informa tion online Indication:Leg swelling Start:29-Oct-2018 Instruction Type:Patient Education How to access health informa tion online - Detail Indication:Leg swelling Start:29-Oct-2018 Instruction Type:Patient Education Patient Instructions Indication:Leg swelling Start:29-Oct-2018 Instruction Type:Provider Instructions for Treatment How to access health informa tion online Indication:BMI 40.0-44.9, adult Start:21-Aug-2018 Instruction Type:Patient Education How to access health informa tion online - Detail Indication:BMI 40.0-44.9, adult Start:21-Aug-2018 Instruction Type:Patient Education Patient Instructions Indication:BMI 40.0-44.9, adult Start:21-Aug-2018 Instruction Type:Provider Instructions for Treatment How to access health informa tion online Indication:BMI 40.0-44.9, adult Start:13-Aug-2018 Instruction Type:Patient Education How to access health informa tion online - Detail Indication:BMI 40.0-44.9, adult Start:13-Aug-2018 Instruction Type:Patient Education Patient Instructions Indication:BMI 40.0-44.9, adult Start:13-Aug-2018 Instruction Type:Provider Instructions for Treatment How to access health informa tion online Indication:BMI 40.0-44.9, adult Start:21-May-2018 Instruction Type:Patient Education How to access health informa tion online - Detail Indication:BMI 40.0-44.9, adult Start:21-May-2018 Instruction Type:Patient Education Patient Instructions Indication:BMI 40.0-44.9, adult Start:21-May-2018 Instruction Type:Provider Instructions for Treatment How to access health informa tion online Indication:Nonsmoker Start:23-Apr-2018 Instruction Type:Patient Education How to access health informa tion online - Detail Indication:Nonsmoker Start:23-Apr-2018 Instruction Type:Patient Education Patient Instructions Indication:Nonsmoker Start:23-Apr-2018 Instruction Type:Provider Instructions for Treatment How to access health informa tion online Indication:BMI 40.0-44.9, adult Start:09-Apr-2018 Instruction Type:Patient Education How to access health informa tion online - Detail Indication:BMI 40.0-44.9, adult Start:09-Apr-2018 Instruction Type:Patient Education Patient Instructions Indication:BMI 40.0-44.9, adult Start:09-Apr-2018 Instruction Type:Provider Instructions for Treatment How to access health informa tion online Indication:Nonsmoker Start:12-Mar-2018 Instruction Type:Patient Education How to access health informa tion online - Detail Indication:Nonsmoker Start:12-Mar-2018 Instruction Type:Patient Education Patient Instructions Indication:Nonsmoker Start:12-Mar-2018 Instruction Type:Provider Instructions for Treatment How to access health informa tion online Indication:Nonsmoker Start:05-Mar-2018 Instruction Type:Patient Education How to access health informa tion online - Detail Indication:Nonsmoker Start:05-Mar-2018 Instruction Type:Patient Education Patient Instructions Indication:Nonsmoker Start:05-Mar-2018 Instruction Type:Provider Instructions for Treatment How to access health informa tion online Indication:Nonsmoker Start:12-Feb-2018 Instruction Type:Patient Education How to access health informa tion online - Detail Indication:Nonsmoker Start:12-Feb-2018 Instruction Type:Patient Education Patient Instructions Indication:Nonsmoker Start:12-Feb-2018 Instruction Type:Provider Instructions for Treatment How to access health informa tion online Indication:Nonsmoker Start:06-Nov-2017 Instruction Type:Patient Education How to access health informa tion online - Detail Indication:Nonsmoker Start:06-Nov-2017 Instruction Type:Patient Education How to access health informa tion online Indication:Nonsmoker Start:09-Oct-2017 Instruction Type:Patient Education How to access health informa tion online - Detail Indication:Nonsmoker Start:09-Oct-2017 Instruction Type:Patient Education Patient Instructions Indication:Nonsmoker Start:09-Oct-2017 Instruction Type:Provider Instructions for Treatment How to access health informa tion online Indication:Nonsmoker Start:02-Oct-2017 Instruction Type:Patient Education How to access health informa tion online - Detail Indication:Nonsmoker Start:02-Oct-2017 Instruction Type:Patient Education Patient Instructions Indication:Nonsmoker Start:02-Oct-2017 Instruction Type:Provider Instructions for Treatment How to access health informa tion online Indication:Nonsmoker Start:25-Sep-2017 Instruction Type:Patient Education How to access health informa tion online - Detail Indication:Nonsmoker Start:25-Sep-2017 Instruction Type:Patient Education Patient Instructions Indication:Nonsmoker Start:25-Sep-2017 Instruction Type:Provider Instructions for Treatment How to access health informa tion online Indication:Abnormal glucose tolerance test (Renamed from Abnormal glucose tolerance test (GTT)) Start:03-Jul-2017 Instruction Type:Patient Education How to access health informa tion online - Detail Indication:Abnormal glucose tolerance test (Renamed from Abnormal glucose tolerance test (GTT)) Start:03-Jul-2017 Instruction Type:Patient Education Patient Instructions Indication:Abnormal glucose tolerance test (Renamed from Abnormal glucose tolerance test (GTT)) Start:03-Jul-2017 Instruction Type:Provider Instructions for Treatment How to access health informa tion online Indication:Nonsmoker Start:27-Feb-2017 Instruction Type:Patient Education How to access health informa tion online - Detail Indication:Nonsmoker Start:27-Feb-2017 Instruction Type:Patient Education Patient Instructions Indication:Nonsmoker Start:27-Feb-2017 Instruction Type:Provider Instructions for Treatment How to access health informa tion online Indication:Nonsmoker Start:05-Dec-2016 Instruction Type:Patient Education How to access health informa tion online - Detail Indication:Nonsmoker Start:05-Dec-2016 Instruction Type:Patient Education Patient Instructions Indication:Nonsmoker Start:05-Dec-2016 Instruction Type:Provider Instructions for Treatment How to access health informa tion online Indication:Nonsmoker Start:07-Nov-2016 Instruction Type:Patient Education How to access health informa tion online - Detail Indication:Nonsmoker Start:07-Nov-2016 Instruction Type:Patient Education Patient Instructions Indication:Nonsmoker Start:07-Nov-2016 Instruction Type:Provider Instructions for Treatment How to access health informa tion online Indication:Nonsmoker Start:15-Oct-2016 Instruction Type:Patient Education How to access health informa tion online Indication:BMI 45.0-49.9, adult Start:06-Aug-2016 Instruction Type:Patient Education How to access health informa tion online - Detail Indication:BMI 45.0-49.9, adult Start:06-Aug-2016 Instruction Type:Patient Education Patient Instructions Indication:BMI 45.0-49.9, adult Start:06-Aug-2016 Instruction Type:Provider Instructions for Treatment Patient Instructions Indication:Abnormal glucose tolerance test (Renamed from Abnormal glucose tolerance test (GTT)) Start:16-May-2016 Instruction Type:Provider Instructions for Treatment DISCONTINUED - HGB A1C (8303 6) Indication:Abnormal glucose tolerance test (Renamed from Abnormal glucose tolerance test (GTT)) Start:16-May-2016 Instruction Type:Patient Education How to access health informa tion online Indication:BMI 45.0-49.9, adult Start:20-Apr-2016 Instruction Type:Patient Education How to access health informa tion online - Detail Indication:BMI 45.0-49.9, adult Start:20-Apr-2016 Instruction Type:Patient Education Patient Instructions Indication:BMI 45.0-49.9, adult Start:20-Apr-2016 Instruction Type:Provider Instructions for Treatment How to access health informa tion online Indication:Nonsmoker Start:02-Apr-2016 Instruction Type:Patient Education How to access health informa tion online - Detail Indication:Nonsmoker Start:02-Apr-2016 Instruction Type:Patient Education Patient Instructions Indication:Nonsmoker Start:02-Apr-2016 Instruction Type:Provider Instructions for Treatment How to access health informa tion online - Detail Indication:Nonsmoker Start:28-Mar-2016 Instruction Type:Patient Education How to access health informa tion online Indication:Nonsmoker Start:28-Mar-2016 Instruction Type:Patient Education Patient Instructions Indication:Nonsmoker Start:28-Mar-2016 Instruction Type:Provider Instructions for Treatment Patient Instructions Indication:Vitamin D deficiency Start:14-Sep-2015 Instruction Type:Provider Instructions for Treatment How to access health informa tion online Indication:Rheumatoid arthritis Start:17-Aug-2015 Instruction Type:Patient Education How to access health informa tion online - Detail Indication:Rheumatoid arthritis Start:17-Aug-2015 Instruction Type:Patient Education Patient Instructions Indication:Rheumatoid arthritis Start:17-Aug-2015 Instruction Type:Provider Instructions for Treatment How to access health informa tion online Indication:Itching Start:23-Mar-2015 Instruction Type:Patient Education How to access health informa tion online - Detail Indication:Itching Start:23-Mar-2015 Instruction Type:Patient Education Patient Instructions Indication:Itching Start:23-Mar-2015 Instruction Type:Provider Instructions for Treatment How to access health informa tion online Indication:Neck pain Start:07-Feb-2015 Instruction Type:Patient Education How to access health informa tion online - Detail Indication:Neck pain Start:07-Feb-2015 Instruction Type:Patient Education Patient Instructions Indication:Neck pain Start:07-Feb-2015 Instruction Type:Provider Instructions for Treatment Patient Instructions Indication:Hypertension Start:07-Jun-2014 Instruction Type:Provider Instructions for Treatment How to access health informa tion online Indication:Hypertension Start:18-Jan-2014 Instruction Type:Patient Education How to access health informa tion online - Detail Indication:Hypertension Start:18-Jan-2014 Instruction Type:Patient Education Patient Instructions Indication:Hypertension Start:18-Jan-2014 Instruction Type:Provider Instructions for Treatment Patient Instructions Indication:Low back pain potentially associated with radiculopathy Start:21-Sep-2013 Instruction Type:Provider Instructions for Treatment Patient Instructions Indication:Low back pain potentially associated with radiculopathy Start:24-Jun-2013 Instruction Type:Provider Instructions for Treatment Patient Instructions Indication:Other intervertebral disc degeneration, lumbar region Start:18-May-2013 Instruction Type:Provider Instructions for Treatment Patient Instructions Indication:Radiculopathy of leg Start:24-Apr-2013 Instruction Type:Provider Instructions for Treatment Patient Instructions Indication:Hypertension Start:07-Jan-2013 Instruction Type:Provider Instructions for Treatment Patient Instructions Indication:Knee pain, left Start:23-Sep-2012 Instruction Type:Provider Instructions for Treatment Patient Instructions Indication:Eczema Start:03-Apr-2012 Instruction Type:Provider Instructions for Treatment Patient Instructions Indication:Allergic rhinitis Start:03-Mar-2012 Instruction Type:Provider Instructions for Treatment Patient Instructions Indication:Hypertension Start:31-Oct-2011 Instruction Type:Provider Instructions for Treatment Name Dates Details How to access health informa tion online Indication:Nonsmoker Start:02-Dec-2019 Instruction Type:Patient Education How to access health informa tion online - Detail Indication:Nonsmoker Start:02-Dec-2019 Instruction Type:Patient Education Patient Instructions Indication:Nonsmoker Start:02-Dec-2019 Instruction Type:Provider Instructions for Treatment How to access health informa tion online Indication:Abnormal glucose tolerance test (Renamed from Abnormal glucose tolerance test (GTT)) Start:29-Jul-2019 Instruction Type:Patient Education How to access health informa tion online - Detail Indication:Abnormal glucose tolerance test (Renamed from Abnormal glucose tolerance test (GTT)) Start:29-Jul-2019 Instruction Type:Patient Education Patient Instructions Indication:Abnormal glucose tolerance test (Renamed from Abnormal glucose tolerance test (GTT)) Start:29-Jul-2019 Instruction Type:Provider Instructions for Treatment How to access health informa tion online Indication:BMI 45.0-49.9, adult Start:25-Mar-2019 Instruction Type:Patient Education How to access health informa tion online - Detail Indication:BMI 45.0-49.9, adult Start:25-Mar-2019 Instruction Type:Patient Education Patient Instructions Indication:BMI 45.0-49.9, adult Start:25-Mar-2019 Instruction Type:Provider Instructions for Treatment How to access health informa tion online Indication:Nonsmoker Start:19-Nov-2018 Instruction Type:Patient Education How to access health informa tion online - Detail Indication:Nonsmoker Start:19-Nov-2018 Instruction Type:Patient Education Patient Instructions Indication:Nonsmoker Start:19-Nov-2018 Instruction Type:Provider Instructions for Treatment How to access health informa tion online Indication:Leg swelling Start:29-Oct-2018 Instruction Type:Patient Education How to access health informa tion online - Detail Indication:Leg swelling Start:29-Oct-2018 Instruction Type:Patient Education Patient Instructions Indication:Leg swelling Start:29-Oct-2018 Instruction Type:Provider Instructions for Treatment How to access health informa tion online Indication:BMI 40.0-44.9, adult Start:21-Aug-2018 Instruction Type:Patient Education How to access health informa tion online - Detail Indication:BMI 40.0-44.9, adult Start:21-Aug-2018 Instruction Type:Patient Education Patient Instructions Indication:BMI 40.0-44.9, adult Start:21-Aug-2018 Instruction Type:Provider Instructions for Treatment How to access health informa tion online Indication:BMI 40.0-44.9, adult Start:13-Aug-2018 Instruction Type:Patient Education How to access health informa tion online - Detail Indication:BMI 40.0-44.9, adult Start:13-Aug-2018 Instruction Type:Patient Education Patient Instructions Indication:BMI 40.0-44.9, adult Start:13-Aug-2018 Instruction Type:Provider Instructions for Treatment How to access health informa tion online Indication:BMI 40.0-44.9, adult Start:21-May-2018 Instruction Type:Patient Education How to access health informa tion online - Detail Indication:BMI 40.0-44.9, adult Start:21-May-2018 Instruction Type:Patient Education Patient Instructions Indication:BMI 40.0-44.9, adult Start:21-May-2018 Instruction Type:Provider Instructions for Treatment How to access health informa tion online Indication:Nonsmoker Start:23-Apr-2018 Instruction Type:Patient Education How to access health informa tion online - Detail Indication:Nonsmoker Start:23-Apr-2018 Instruction Type:Patient Education Patient Instructions Indication:Nonsmoker Start:23-Apr-2018 Instruction Type:Provider Instructions for Treatment How to access health informa tion online Indication:BMI 40.0-44.9, adult Start:09-Apr-2018 Instruction Type:Patient Education How to access health informa tion online - Detail Indication:BMI 40.0-44.9, adult Start:09-Apr-2018 Instruction Type:Patient Education Patient Instructions Indication:BMI 40.0-44.9, adult Start:09-Apr-2018 Instruction Type:Provider Instructions for Treatment How to access health informa tion online Indication:Nonsmoker Start:12-Mar-2018 Instruction Type:Patient Education How to access health informa tion online - Detail Indication:Nonsmoker Start:12-Mar-2018 Instruction Type:Patient Education Patient Instructions Indication:Nonsmoker Start:12-Mar-2018 Instruction Type:Provider Instructions for Treatment How to access health informa tion online Indication:Nonsmoker Start:05-Mar-2018 Instruction Type:Patient Education How to access health informa tion online - Detail Indication:Nonsmoker Start:05-Mar-2018 Instruction Type:Patient Education Patient Instructions Indication:Nonsmoker Start:05-Mar-2018 Instruction Type:Provider Instructions for Treatment How to access health informa tion online Indication:Nonsmoker Start:12-Feb-2018 Instruction Type:Patient Education How to access health informa tion online - Detail Indication:Nonsmoker Start:12-Feb-2018 Instruction Type:Patient Education Patient Instructions Indication:Nonsmoker Start:12-Feb-2018 Instruction Type:Provider Instructions for Treatment How to access health informa tion online Indication:Nonsmoker Start:06-Nov-2017 Instruction Type:Patient Education How to access health informa tion online - Detail Indication:Nonsmoker Start:06-Nov-2017 Instruction Type:Patient Education How to access health informa tion online Indication:Nonsmoker Start:09-Oct-2017 Instruction Type:Patient Education How to access health informa tion online - Detail Indication:Nonsmoker Start:09-Oct-2017 Instruction Type:Patient Education Patient Instructions Indication:Nonsmoker Start:09-Oct-2017 Instruction Type:Provider Instructions for Treatment How to access health informa tion online Indication:Nonsmoker Start:02-Oct-2017 Instruction Type:Patient Education How to access health informa tion online - Detail Indication:Nonsmoker Start:02-Oct-2017 Instruction Type:Patient Education Patient Instructions Indication:Nonsmoker Start:02-Oct-2017 Instruction Type:Provider Instructions for Treatment How to access health informa tion online Indication:Nonsmoker Start:25-Sep-2017 Instruction Type:Patient Education How to access health informa tion online - Detail Indication:Nonsmoker Start:25-Sep-2017 Instruction Type:Patient Education Patient Instructions Indication:Nonsmoker Start:25-Sep-2017 Instruction Type:Provider Instructions for Treatment How to access health informa tion online Indication:Abnormal glucose tolerance test (Renamed from Abnormal glucose tolerance test (GTT)) Start:03-Jul-2017 Instruction Type:Patient Education How to access health informa tion online - Detail Indication:Abnormal glucose tolerance test (Renamed from Abnormal glucose tolerance test (GTT)) Start:03-Jul-2017 Instruction Type:Patient Education Patient Instructions Indication:Abnormal glucose tolerance test (Renamed from Abnormal glucose tolerance test (GTT)) Start:03-Jul-2017 Instruction Type:Provider Instructions for Treatment How to access health informa tion online Indication:Nonsmoker Start:27-Feb-2017 Instruction Type:Patient Education How to access health informa tion online - Detail Indication:Nonsmoker Start:27-Feb-2017 Instruction Type:Patient Education Patient Instructions Indication:Nonsmoker Start:27-Feb-2017 Instruction Type:Provider Instructions for Treatment How to access health informa tion online Indication:Nonsmoker Start:05-Dec-2016 Instruction Type:Patient Education How to access health informa tion online - Detail Indication:Nonsmoker Start:05-Dec-2016 Instruction Type:Patient Education Patient Instructions Indication:Nonsmoker Start:05-Dec-2016 Instruction Type:Provider Instructions for Treatment How to access health informa tion online Indication:Nonsmoker Start:07-Nov-2016 Instruction Type:Patient Education How to access health informa tion online - Detail Indication:Nonsmoker Start:07-Nov-2016 Instruction Type:Patient Education Patient Instructions Indication:Nonsmoker Start:07-Nov-2016 Instruction Type:Provider Instructions for Treatment How to access health informa tion online Indication:Nonsmoker Start:15-Oct-2016 Instruction Type:Patient Education How to access health informa tion online Indication:BMI 45.0-49.9, adult Start:06-Aug-2016 Instruction Type:Patient Education How to access health informa tion online - Detail Indication:BMI 45.0-49.9, adult Start:06-Aug-2016 Instruction Type:Patient Education Patient Instructions Indication:BMI 45.0-49.9, adult Start:06-Aug-2016 Instruction Type:Provider Instructions for Treatment Patient Instructions Indication:Abnormal glucose tolerance test (Renamed from Abnormal glucose tolerance test (GTT)) Start:16-May-2016 Instruction Type:Provider Instructions for Treatment DISCONTINUED - HGB A1C (8303 6) Indication:Abnormal glucose tolerance test (Renamed from Abnormal glucose tolerance test (GTT)) Start:16-May-2016 Instruction Type:Patient Education How to access health informa tion online Indication:BMI 45.0-49.9, adult Start:20-Apr-2016 Instruction Type:Patient Education How to access health informa tion online - Detail Indication:BMI 45.0-49.9, adult Start:20-Apr-2016 Instruction Type:Patient Education Patient Instructions Indication:BMI 45.0-49.9, adult Start:20-Apr-2016 Instruction Type:Provider Instructions for Treatment How to access health informa tion online Indication:Nonsmoker Start:02-Apr-2016 Instruction Type:Patient Education How to access health informa tion online - Detail Indication:Nonsmoker Start:02-Apr-2016 Instruction Type:Patient Education Patient Instructions Indication:Nonsmoker Start:02-Apr-2016 Instruction Type:Provider Instructions for Treatment How to access health informa tion online - Detail Indication:Nonsmoker Start:28-Mar-2016 Instruction Type:Patient Education How to access health informa tion online Indication:Nonsmoker Start:28-Mar-2016 Instruction Type:Patient Education Patient Instructions Indication:Nonsmoker Start:28-Mar-2016 Instruction Type:Provider Instructions for Treatment Patient Instructions Indication:Vitamin D deficiency Start:14-Sep-2015 Instruction Type:Provider Instructions for Treatment How to access health informa tion online Indication:Rheumatoid arthritis Start:17-Aug-2015 Instruction Type:Patient Education How to access health informa tion online - Detail Indication:Rheumatoid arthritis Start:17-Aug-2015 Instruction Type:Patient Education Patient Instructions Indication:Rheumatoid arthritis Start:17-Aug-2015 Instruction Type:Provider Instructions for Treatment How to access health informa tion online Indication:Itching Start:23-Mar-2015 Instruction Type:Patient Education How to access health informa tion online - Detail Indication:Itching Start:23-Mar-2015 Instruction Type:Patient Education Patient Instructions Indication:Itching Start:23-Mar-2015 Instruction Type:Provider Instructions for Treatment How to access health informa tion online Indication:Neck pain Start:07-Feb-2015 Instruction Type:Patient Education How to access health informa tion online - Detail Indication:Neck pain Start:07-Feb-2015 Instruction Type:Patient Education Patient Instructions Indication:Neck pain Start:07-Feb-2015 Instruction Type:Provider Instructions for Treatment Patient Instructions Indication:Hypertension Start:07-Jun-2014 Instruction Type:Provider Instructions for Treatment How to access health informa tion online Indication:Hypertension Start:18-Jan-2014 Instruction Type:Patient Education How to access health informa tion online - Detail Indication:Hypertension Start:18-Jan-2014 Instruction Type:Patient Education Patient Instructions Indication:Hypertension Start:18-Jan-2014 Instruction Type:Provider Instructions for Treatment Patient Instructions Indication:Low back pain potentially associated with radiculopathy Start:21-Sep-2013 Instruction Type:Provider Instructions for Treatment Patient Instructions Indication:Low back pain potentially associated with radiculopathy Start:24-Jun-2013 Instruction Type:Provider Instructions for Treatment Patient Instructions Indication:Other intervertebral disc degeneration, lumbar region Start:18-May-2013 Instruction Type:Provider Instructions for Treatment Patient Instructions Indication:Radiculopathy of leg Start:24-Apr-2013 Instruction Type:Provider Instructions for Treatment Patient Instructions Indication:Hypertension Start:07-Jan-2013 Instruction Type:Provider Instructions for Treatment Patient Instructions Indication:Knee pain, left Start:23-Sep-2012 Instruction Type:Provider Instructions for Treatment Patient Instructions Indication:Eczema Start:03-Apr-2012 Instruction Type:Provider Instructions for Treatment Patient Instructions Indication:Allergic rhinitis Start:03-Mar-2012 Instruction Type:Provider Instructions for Treatment Patient Instructions Indication:Hypertension Start:31-Oct-2011 Instruction Type:Provider Instructions for Treatment Name Dates Details How to access health informa tion online Indication:Nonsmoker Start:02-Dec-2019 Instruction Type:Patient Education How to access health informa tion online - Detail Indication:Nonsmoker Start:02-Dec-2019 Instruction Type:Patient Education Patient Instructions Indication:Nonsmoker Start:02-Dec-2019 Instruction Type:Provider Instructions for Treatment How to access health informa tion online Indication:Abnormal glucose tolerance test (Renamed from Abnormal glucose tolerance test (GTT)) Start:29-Jul-2019 Instruction Type:Patient Education How to access health informa tion online - Detail Indication:Abnormal glucose tolerance test (Renamed from Abnormal glucose tolerance test (GTT)) Start:29-Jul-2019 Instruction Type:Patient Education Patient Instructions Indication:Abnormal glucose tolerance test (Renamed from Abnormal glucose tolerance test (GTT)) Start:29-Jul-2019 Instruction Type:Provider Instructions for Treatment How to access health informa tion online Indication:BMI 45.0-49.9, adult Start:25-Mar-2019 Instruction Type:Patient Education How to access health informa tion online - Detail Indication:BMI 45.0-49.9, adult Start:25-Mar-2019 Instruction Type:Patient Education Patient Instructions Indication:BMI 45.0-49.9, adult Start:25-Mar-2019 Instruction Type:Provider Instructions for Treatment How to access health informa tion online Indication:Nonsmoker Start:19-Nov-2018 Instruction Type:Patient Education How to access health informa tion online - Detail Indication:Nonsmoker Start:19-Nov-2018 Instruction Type:Patient Education Patient Instructions Indication:Nonsmoker Start:19-Nov-2018 Instruction Type:Provider Instructions for Treatment How to access health informa tion online Indication:Leg swelling Start:29-Oct-2018 Instruction Type:Patient Education How to access health informa tion online - Detail Indication:Leg swelling Start:29-Oct-2018 Instruction Type:Patient Education Patient Instructions Indication:Leg swelling Start:29-Oct-2018 Instruction Type:Provider Instructions for Treatment How to access health informa tion online Indication:BMI 40.0-44.9, adult Start:21-Aug-2018 Instruction Type:Patient Education How to access health informa tion online - Detail Indication:BMI 40.0-44.9, adult Start:21-Aug-2018 Instruction Type:Patient Education Patient Instructions Indication:BMI 40.0-44.9, adult Start:21-Aug-2018 Instruction Type:Provider Instructions for Treatment How to access health informa tion online Indication:BMI 40.0-44.9, adult Start:13-Aug-2018 Instruction Type:Patient Education How to access health informa tion online - Detail Indication:BMI 40.0-44.9, adult Start:13-Aug-2018 Instruction Type:Patient Education Patient Instructions Indication:BMI 40.0-44.9, adult Start:13-Aug-2018 Instruction Type:Provider Instructions for Treatment How to access health informa tion online Indication:BMI 40.0-44.9, adult Start:21-May-2018 Instruction Type:Patient Education How to access health informa tion online - Detail Indication:BMI 40.0-44.9, adult Start:21-May-2018 Instruction Type:Patient Education Patient Instructions Indication:BMI 40.0-44.9, adult Start:21-May-2018 Instruction Type:Provider Instructions for Treatment How to access health informa tion online Indication:Nonsmoker Start:23-Apr-2018 Instruction Type:Patient Education How to access health informa tion online - Detail Indication:Nonsmoker Start:23-Apr-2018 Instruction Type:Patient Education Patient Instructions Indication:Nonsmoker Start:23-Apr-2018 Instruction Type:Provider Instructions for Treatment How to access health informa tion online Indication:BMI 40.0-44.9, adult Start:09-Apr-2018 Instruction Type:Patient Education How to access health informa tion online - Detail Indication:BMI 40.0-44.9, adult Start:09-Apr-2018 Instruction Type:Patient Education Patient Instructions Indication:BMI 40.0-44.9, adult Start:09-Apr-2018 Instruction Type:Provider Instructions for Treatment How to access health informa tion online Indication:Nonsmoker Start:12-Mar-2018 Instruction Type:Patient Education How to access health informa tion online - Detail Indication:Nonsmoker Start:12-Mar-2018 Instruction Type:Patient Education Patient Instructions Indication:Nonsmoker Start:12-Mar-2018 Instruction Type:Provider Instructions for Treatment How to access health informa tion online Indication:Nonsmoker Start:05-Mar-2018 Instruction Type:Patient Education How to access health informa tion online - Detail Indication:Nonsmoker Start:05-Mar-2018 Instruction Type:Patient Education Patient Instructions Indication:Nonsmoker Start:05-Mar-2018 Instruction Type:Provider Instructions for Treatment How to access health informa tion online Indication:Nonsmoker Start:12-Feb-2018 Instruction Type:Patient Education How to access health informa tion online - Detail Indication:Nonsmoker Start:12-Feb-2018 Instruction Type:Patient Education Patient Instructions Indication:Nonsmoker Start:12-Feb-2018 Instruction Type:Provider Instructions for Treatment How to access health informa tion online Indication:Nonsmoker Start:06-Nov-2017 Instruction Type:Patient Education How to access health informa tion online - Detail Indication:Nonsmoker Start:06-Nov-2017 Instruction Type:Patient Education How to access health informa tion online Indication:Nonsmoker Start:09-Oct-2017 Instruction Type:Patient Education How to access health informa tion online - Detail Indication:Nonsmoker Start:09-Oct-2017 Instruction Type:Patient Education Patient Instructions Indication:Nonsmoker Start:09-Oct-2017 Instruction Type:Provider Instructions for Treatment How to access health informa tion online Indication:Nonsmoker Start:02-Oct-2017 Instruction Type:Patient Education How to access health informa tion online - Detail Indication:Nonsmoker Start:02-Oct-2017 Instruction Type:Patient Education Patient Instructions Indication:Nonsmoker Start:02-Oct-2017 Instruction Type:Provider Instructions for Treatment How to access health informa tion online Indication:Nonsmoker Start:25-Sep-2017 Instruction Type:Patient Education How to access health informa tion online - Detail Indication:Nonsmoker Start:25-Sep-2017 Instruction Type:Patient Education Patient Instructions Indication:Nonsmoker Start:25-Sep-2017 Instruction Type:Provider Instructions for Treatment How to access health informa tion online Indication:Abnormal glucose tolerance test (Renamed from Abnormal glucose tolerance test (GTT)) Start:03-Jul-2017 Instruction Type:Patient Education How to access health informa tion online - Detail Indication:Abnormal glucose tolerance test (Renamed from Abnormal glucose tolerance test (GTT)) Start:03-Jul-2017 Instruction Type:Patient Education Patient Instructions Indication:Abnormal glucose tolerance test (Renamed from Abnormal glucose tolerance test (GTT)) Start:03-Jul-2017 Instruction Type:Provider Instructions for Treatment How to access health informa tion online Indication:Nonsmoker Start:27-Feb-2017 Instruction Type:Patient Education How to access health informa tion online - Detail Indication:Nonsmoker Start:27-Feb-2017 Instruction Type:Patient Education Patient Instructions Indication:Nonsmoker Start:27-Feb-2017 Instruction Type:Provider Instructions for Treatment How to access health informa tion online Indication:Nonsmoker Start:05-Dec-2016 Instruction Type:Patient Education How to access health informa tion online - Detail Indication:Nonsmoker Start:05-Dec-2016 Instruction Type:Patient Education Patient Instructions Indication:Nonsmoker Start:05-Dec-2016 Instruction Type:Provider Instructions for Treatment How to access health informa tion online Indication:Nonsmoker Start:07-Nov-2016 Instruction Type:Patient Education How to access health informa tion online - Detail Indication:Nonsmoker Start:07-Nov-2016 Instruction Type:Patient Education Patient Instructions Indication:Nonsmoker Start:07-Nov-2016 Instruction Type:Provider Instructions for Treatment How to access health informa tion online Indication:Nonsmoker Start:15-Oct-2016 Instruction Type:Patient Education How to access health informa tion online Indication:BMI 45.0-49.9, adult Start:06-Aug-2016 Instruction Type:Patient Education How to access health informa tion online - Detail Indication:BMI 45.0-49.9, adult Start:06-Aug-2016 Instruction Type:Patient Education Patient Instructions Indication:BMI 45.0-49.9, adult Start:06-Aug-2016 Instruction Type:Provider Instructions for Treatment Patient Instructions Indication:Abnormal glucose tolerance test (Renamed from Abnormal glucose tolerance test (GTT)) Start:16-May-2016 Instruction Type:Provider Instructions for Treatment DISCONTINUED - HGB A1C (8303 6) Indication:Abnormal glucose tolerance test (Renamed from Abnormal glucose tolerance test (GTT)) Start:16-May-2016 Instruction Type:Patient Education How to access health informa tion online Indication:BMI 45.0-49.9, adult Start:20-Apr-2016 Instruction Type:Patient Education How to access health informa tion online - Detail Indication:BMI 45.0-49.9, adult Start:20-Apr-2016 Instruction Type:Patient Education Patient Instructions Indication:BMI 45.0-49.9, adult Start:20-Apr-2016 Instruction Type:Provider Instructions for Treatment How to access health informa tion online Indication:Nonsmoker Start:02-Apr-2016 Instruction Type:Patient Education How to access health informa tion online - Detail Indication:Nonsmoker Start:02-Apr-2016 Instruction Type:Patient Education Patient Instructions Indication:Nonsmoker Start:02-Apr-2016 Instruction Type:Provider Instructions for Treatment How to access health informa tion online - Detail Indication:Nonsmoker Start:28-Mar-2016 Instruction Type:Patient Education How to access health informa tion online Indication:Nonsmoker Start:28-Mar-2016 Instruction Type:Patient Education Patient Instructions Indication:Nonsmoker Start:28-Mar-2016 Instruction Type:Provider Instructions for Treatment Patient Instructions Indication:Vitamin D deficiency Start:14-Sep-2015 Instruction Type:Provider Instructions for Treatment How to access health informa tion online Indication:Rheumatoid arthritis Start:17-Aug-2015 Instruction Type:Patient Education How to access health informa tion online - Detail Indication:Rheumatoid arthritis Start:17-Aug-2015 Instruction Type:Patient Education Patient Instructions Indication:Rheumatoid arthritis Start:17-Aug-2015 Instruction Type:Provider Instructions for Treatment How to access health informa tion online Indication:Itching Start:23-Mar-2015 Instruction Type:Patient Education How to access health informa tion online - Detail Indication:Itching Start:23-Mar-2015 Instruction Type:Patient Education Patient Instructions Indication:Itching Start:23-Mar-2015 Instruction Type:Provider Instructions for Treatment How to access health informa tion online Indication:Neck pain Start:07-Feb-2015 Instruction Type:Patient Education How to access health informa tion online - Detail Indication:Neck pain Start:07-Feb-2015 Instruction Type:Patient Education Patient Instructions Indication:Neck pain Start:07-Feb-2015 Instruction Type:Provider Instructions for Treatment Patient Instructions Indication:Hypertension Start:07-Jun-2014 Instruction Type:Provider Instructions for Treatment How to access health informa tion online Indication:Hypertension Start:18-Jan-2014 Instruction Type:Patient Education How to access health informa tion online - Detail Indication:Hypertension Start:18-Jan-2014 Instruction Type:Patient Education Patient Instructions Indication:Hypertension Start:18-Jan-2014 Instruction Type:Provider Instructions for Treatment Patient Instructions Indication:Low back pain potentially associated with radiculopathy Start:21-Sep-2013 Instruction Type:Provider Instructions for Treatment Patient Instructions Indication:Low back pain potentially associated with radiculopathy Start:24-Jun-2013 Instruction Type:Provider Instructions for Treatment Patient Instructions Indication:Other intervertebral disc degeneration, lumbar region Start:18-May-2013 Instruction Type:Provider Instructions for Treatment Patient Instructions Indication:Radiculopathy of leg Start:24-Apr-2013 Instruction Type:Provider Instructions for Treatment Patient Instructions Indication:Hypertension Start:07-Jan-2013 Instruction Type:Provider Instructions for Treatment Patient Instructions Indication:Knee pain, left Start:23-Sep-2012 Instruction Type:Provider Instructions for Treatment Patient Instructions Indication:Eczema Start:03-Apr-2012 Instruction Type:Provider Instructions for Treatment Patient Instructions Indication:Allergic rhinitis Start:03-Mar-2012 Instruction Type:Provider Instructions for Treatment Patient Instructions Indication:Hypertension Start:31-Oct-2011 Instruction Type:Provider Instructions for Treatment Name Dates Details How to Access Health Informa tion Online using Patient Portal and [employer] Indication:Nonsmoker Start:25-Feb-2020 Instruction Type:Patient Education Patient Instructions Indication:Nonsmoker Start:25-Feb-2020 Instruction Type:Provider Instructions for Treatment How to access health informa tion online Indication:Nonsmoker Start:02-Dec-2019 Instruction Type:Patient Education How to access health informa tion online - Detail Indication:Nonsmoker Start:02-Dec-2019 Instruction Type:Patient Education Patient Instructions Indication:Nonsmoker Start:02-Dec-2019 Instruction Type:Provider Instructions for Treatment How to access health informa tion online Indication:Abnormal glucose tolerance test (Renamed from Abnormal glucose tolerance test (GTT)) Start:29-Jul-2019 Instruction Type:Patient Education How to access health informa tion online - Detail Indication:Abnormal glucose tolerance test (Renamed from Abnormal glucose tolerance test (GTT)) Start:29-Jul-2019 Instruction Type:Patient Education Patient Instructions Indication:Abnormal glucose tolerance test (Renamed from Abnormal glucose tolerance test (GTT)) Start:29-Jul-2019 Instruction Type:Provider Instructions for Treatment How to access health informa tion online Indication:BMI 45.0-49.9, adult Start:25-Mar-2019 Instruction Type:Patient Education How to access health informa tion online - Detail Indication:BMI 45.0-49.9, adult Start:25-Mar-2019 Instruction Type:Patient Education Patient Instructions Indication:BMI 45.0-49.9, adult Start:25-Mar-2019 Instruction Type:Provider Instructions for Treatment How to access health informa tion online Indication:Nonsmoker Start:19-Nov-2018 Instruction Type:Patient Education How to access health informa tion online - Detail Indication:Nonsmoker Start:19-Nov-2018 Instruction Type:Patient Education Patient Instructions Indication:Nonsmoker Start:19-Nov-2018 Instruction Type:Provider Instructions for Treatment How to access health informa tion online Indication:Leg swelling Start:29-Oct-2018 Instruction Type:Patient Education How to access health informa tion online - Detail Indication:Leg swelling Start:29-Oct-2018 Instruction Type:Patient Education Patient Instructions Indication:Leg swelling Start:29-Oct-2018 Instruction Type:Provider Instructions for Treatment How to access health informa tion online Indication:BMI 40.0-44.9, adult Start:21-Aug-2018 Instruction Type:Patient Education How to access health informa tion online - Detail Indication:BMI 40.0-44.9, adult Start:21-Aug-2018 Instruction Type:Patient Education Patient Instructions Indication:BMI 40.0-44.9, adult Start:21-Aug-2018 Instruction Type:Provider Instructions for Treatment How to access health informa tion online Indication:BMI 40.0-44.9, adult Start:13-Aug-2018 Instruction Type:Patient Education How to access health informa tion online - Detail Indication:BMI 40.0-44.9, adult Start:13-Aug-2018 Instruction Type:Patient Education Patient Instructions Indication:BMI 40.0-44.9, adult Start:13-Aug-2018 Instruction Type:Provider Instructions for Treatment How to access health informa tion online Indication:BMI 40.0-44.9, adult Start:21-May-2018 Instruction Type:Patient Education How to access health informa tion online - Detail Indication:BMI 40.0-44.9, adult Start:21-May-2018 Instruction Type:Patient Education Patient Instructions Indication:BMI 40.0-44.9, adult Start:21-May-2018 Instruction Type:Provider Instructions for Treatment How to access health informa tion online Indication:Nonsmoker Start:23-Apr-2018 Instruction Type:Patient Education How to access health informa tion online - Detail Indication:Nonsmoker Start:23-Apr-2018 Instruction Type:Patient Education Patient Instructions Indication:Nonsmoker Start:23-Apr-2018 Instruction Type:Provider Instructions for Treatment How to access health informa tion online Indication:BMI 40.0-44.9, adult Start:09-Apr-2018 Instruction Type:Patient Education How to access health informa tion online - Detail Indication:BMI 40.0-44.9, adult Start:09-Apr-2018 Instruction Type:Patient Education Patient Instructions Indication:BMI 40.0-44.9, adult Start:09-Apr-2018 Instruction Type:Provider Instructions for Treatment How to access health informa tion online Indication:Nonsmoker Start:12-Mar-2018 Instruction Type:Patient Education How to access health informa tion online - Detail Indication:Nonsmoker Start:12-Mar-2018 Instruction Type:Patient Education Patient Instructions Indication:Nonsmoker Start:12-Mar-2018 Instruction Type:Provider Instructions for Treatment How to access health informa tion online Indication:Nonsmoker Start:05-Mar-2018 Instruction Type:Patient Education How to access health informa tion online - Detail Indication:Nonsmoker Start:05-Mar-2018 Instruction Type:Patient Education Patient Instructions Indication:Nonsmoker Start:05-Mar-2018 Instruction Type:Provider Instructions for Treatment How to access health informa tion online Indication:Nonsmoker Start:12-Feb-2018 Instruction Type:Patient Education How to access health informa tion online - Detail Indication:Nonsmoker Start:12-Feb-2018 Instruction Type:Patient Education Patient Instructions Indication:Nonsmoker Start:12-Feb-2018 Instruction Type:Provider Instructions for Treatment How to access health informa tion online Indication:Nonsmoker Start:06-Nov-2017 Instruction Type:Patient Education How to access health informa tion online - Detail Indication:Nonsmoker Start:06-Nov-2017 Instruction Type:Patient Education How to access health informa tion online Indication:Nonsmoker Start:09-Oct-2017 Instruction Type:Patient Education How to access health informa tion online - Detail Indication:Nonsmoker Start:09-Oct-2017 Instruction Type:Patient Education Patient Instructions Indication:Nonsmoker Start:09-Oct-2017 Instruction Type:Provider Instructions for Treatment How to access health informa tion online Indication:Nonsmoker Start:02-Oct-2017 Instruction Type:Patient Education How to access health informa tion online - Detail Indication:Nonsmoker Start:02-Oct-2017 Instruction Type:Patient Education Patient Instructions Indication:Nonsmoker Start:02-Oct-2017 Instruction Type:Provider Instructions for Treatment How to access health informa tion online Indication:Nonsmoker Start:25-Sep-2017 Instruction Type:Patient Education How to access health informa tion online - Detail Indication:Nonsmoker Start:25-Sep-2017 Instruction Type:Patient Education Patient Instructions Indication:Nonsmoker Start:25-Sep-2017 Instruction Type:Provider Instructions for Treatment How to access health informa tion online Indication:Abnormal glucose tolerance test (Renamed from Abnormal glucose tolerance test (GTT)) Start:03-Jul-2017 Instruction Type:Patient Education How to access health informa tion online - Detail Indication:Abnormal glucose tolerance test (Renamed from Abnormal glucose tolerance test (GTT)) Start:03-Jul-2017 Instruction Type:Patient Education Patient Instructions Indication:Abnormal glucose tolerance test (Renamed from Abnormal glucose tolerance test (GTT)) Start:03-Jul-2017 Instruction Type:Provider Instructions for Treatment How to access health informa tion online Indication:Nonsmoker Start:27-Feb-2017 Instruction Type:Patient Education How to access health informa tion online - Detail Indication:Nonsmoker Start:27-Feb-2017 Instruction Type:Patient Education Patient Instructions Indication:Nonsmoker Start:27-Feb-2017 Instruction Type:Provider Instructions for Treatment How to access health informa tion online Indication:Nonsmoker Start:05-Dec-2016 Instruction Type:Patient Education How to access health informa tion online - Detail Indication:Nonsmoker Start:05-Dec-2016 Instruction Type:Patient Education Patient Instructions Indication:Nonsmoker Start:05-Dec-2016 Instruction Type:Provider Instructions for Treatment How to access health informa tion online Indication:Nonsmoker Start:07-Nov-2016 Instruction Type:Patient Education How to access health informa tion online - Detail Indication:Nonsmoker Start:07-Nov-2016 Instruction Type:Patient Education Patient Instructions Indication:Nonsmoker Start:07-Nov-2016 Instruction Type:Provider Instructions for Treatment How to access health informa tion online Indication:Nonsmoker Start:15-Oct-2016 Instruction Type:Patient Education How to access health informa tion online Indication:BMI 45.0-49.9, adult Start:06-Aug-2016 Instruction Type:Patient Education How to access health informa tion online - Detail Indication:BMI 45.0-49.9, adult Start:06-Aug-2016 Instruction Type:Patient Education Patient Instructions Indication:BMI 45.0-49.9, adult Start:06-Aug-2016 Instruction Type:Provider Instructions for Treatment Patient Instructions Indication:Abnormal glucose tolerance test (Renamed from Abnormal glucose tolerance test (GTT)) Start:16-May-2016 Instruction Type:Provider Instructions for Treatment DISCONTINUED - HGB A1C (8303 6) Indication:Abnormal glucose tolerance test (Renamed from Abnormal glucose tolerance test (GTT)) Start:16-May-2016 Instruction Type:Patient Education How to access health informa tion online Indication:BMI 45.0-49.9, adult Start:20-Apr-2016 Instruction Type:Patient Education How to access health informa tion online - Detail Indication:BMI 45.0-49.9, adult Start:20-Apr-2016 Instruction Type:Patient Education Patient Instructions Indication:BMI 45.0-49.9, adult Start:20-Apr-2016 Instruction Type:Provider Instructions for Treatment How to access health informa tion online Indication:Nonsmoker Start:02-Apr-2016 Instruction Type:Patient Education How to access health informa tion online - Detail Indication:Nonsmoker Start:02-Apr-2016 Instruction Type:Patient Education Patient Instructions Indication:Nonsmoker Start:02-Apr-2016 Instruction Type:Provider Instructions for Treatment How to access health informa tion online - Detail Indication:Nonsmoker Start:28-Mar-2016 Instruction Type:Patient Education How to access health informa tion online Indication:Nonsmoker Start:28-Mar-2016 Instruction Type:Patient Education Patient Instructions Indication:Nonsmoker Start:28-Mar-2016 Instruction Type:Provider Instructions for Treatment Patient Instructions Indication:Vitamin D deficiency Start:14-Sep-2015 Instruction Type:Provider Instructions for Treatment How to access health informa tion online Indication:Rheumatoid arthritis Start:17-Aug-2015 Instruction Type:Patient Education How to access health informa tion online - Detail Indication:Rheumatoid arthritis Start:17-Aug-2015 Instruction Type:Patient Education Patient Instructions Indication:Rheumatoid arthritis Start:17-Aug-2015 Instruction Type:Provider Instructions for Treatment How to access health informa tion online Indication:Itching Start:23-Mar-2015 Instruction Type:Patient Education How to access health informa tion online - Detail Indication:Itching Start:23-Mar-2015 Instruction Type:Patient Education Patient Instructions Indication:Itching Start:23-Mar-2015 Instruction Type:Provider Instructions for Treatment How to access health informa tion online Indication:Neck pain Start:07-Feb-2015 Instruction Type:Patient Education How to access health informa tion online - Detail Indication:Neck pain Start:07-Feb-2015 Instruction Type:Patient Education Patient Instructions Indication:Neck pain Start:07-Feb-2015 Instruction Type:Provider Instructions for Treatment Patient Instructions Indication:Hypertension Start:07-Jun-2014 Instruction Type:Provider Instructions for Treatment How to access health informa tion online Indication:Hypertension Start:18-Jan-2014 Instruction Type:Patient Education How to access health informa tion online - Detail Indication:Hypertension Start:18-Jan-2014 Instruction Type:Patient Education Patient Instructions Indication:Hypertension Start:18-Jan-2014 Instruction Type:Provider Instructions for Treatment Patient Instructions Indication:Low back pain potentially associated with radiculopathy Start:21-Sep-2013 Instruction Type:Provider Instructions for Treatment Patient Instructions Indication:Low back pain potentially associated with radiculopathy Start:24-Jun-2013 Instruction Type:Provider Instructions for Treatment Patient Instructions Indication:Other intervertebral disc degeneration, lumbar region Start:18-May-2013 Instruction Type:Provider Instructions for Treatment Patient Instructions Indication:Radiculopathy of leg Start:24-Apr-2013 Instruction Type:Provider Instructions for Treatment Patient Instructions Indication:Hypertension Start:07-Jan-2013 Instruction Type:Provider Instructions for Treatment Patient Instructions Indication:Knee pain, left Start:23-Sep-2012 Instruction Type:Provider Instructions for Treatment Patient Instructions Indication:Eczema Start:03-Apr-2012 Instruction Type:Provider Instructions for Treatment Patient Instructions Indication:Allergic rhinitis Start:03-Mar-2012 Instruction Type:Provider Instructions for Treatment Patient Instructions Indication:Hypertension Start:31-Oct-2011 Instruction Type:Provider Instructions for Treatment Name Dates Details How to Access Health Informa tion Online using Patient Portal and [employer] Apps Indication:Nonsmoker Start:25-Feb-2020 Instruction Type:Patient Education Patient Instructions Indication:Nonsmoker Start:25-Feb-2020 Instruction Type:Provider Instructions for Treatment How to access health informa tion online Indication:Nonsmoker Start:02-Dec-2019 Instruction Type:Patient Education How to access health informa tion online - Detail Indication:Nonsmoker Start:02-Dec-2019 Instruction Type:Patient Education Patient Instructions Indication:Nonsmoker Start:02-Dec-2019 Instruction Type:Provider Instructions for Treatment How to access health informa tion online Indication:Abnormal glucose tolerance test (Renamed from Abnormal glucose tolerance test (GTT)) Start:29-Jul-2019 Instruction Type:Patient Education How to access health informa tion online - Detail Indication:Abnormal glucose tolerance test (Renamed from Abnormal glucose tolerance test (GTT)) Start:29-Jul-2019 Instruction Type:Patient Education Patient Instructions Indication:Abnormal glucose tolerance test (Renamed from Abnormal glucose tolerance test (GTT)) Start:29-Jul-2019 Instruction Type:Provider Instructions for Treatment How to access health informa tion online Indication:BMI 45.0-49.9, adult Start:25-Mar-2019 Instruction Type:Patient Education How to access health informa tion online - Detail Indication:BMI 45.0-49.9, adult Start:25-Mar-2019 Instruction Type:Patient Education Patient Instructions Indication:BMI 45.0-49.9, adult Start:25-Mar-2019 Instruction Type:Provider Instructions for Treatment How to access health informa tion online Indication:Nonsmoker Start:19-Nov-2018 Instruction Type:Patient Education How to access health informa tion online - Detail Indication:Nonsmoker Start:19-Nov-2018 Instruction Type:Patient Education Patient Instructions Indication:Nonsmoker Start:19-Nov-2018 Instruction Type:Provider Instructions for Treatment How to access health informa tion online Indication:Leg swelling Start:29-Oct-2018 Instruction Type:Patient Education How to access health informa tion online - Detail Indication:Leg swelling Start:29-Oct-2018 Instruction Type:Patient Education Patient Instructions Indication:Leg swelling Start:29-Oct-2018 Instruction Type:Provider Instructions for Treatment How to access health informa tion online Indication:BMI 40.0-44.9, adult Start:21-Aug-2018 Instruction Type:Patient Education How to access health informa tion online - Detail Indication:BMI 40.0-44.9, adult Start:21-Aug-2018 Instruction Type:Patient Education Patient Instructions Indication:BMI 40.0-44.9, adult Start:21-Aug-2018 Instruction Type:Provider Instructions for Treatment How to access health informa tion online Indication:BMI 40.0-44.9, adult Start:13-Aug-2018 Instruction Type:Patient Education How to access health informa tion online - Detail Indication:BMI 40.0-44.9, adult Start:13-Aug-2018 Instruction Type:Patient Education Patient Instructions Indication:BMI 40.0-44.9, adult Start:13-Aug-2018 Instruction Type:Provider Instructions for Treatment How to access health informa tion online Indication:BMI 40.0-44.9, adult Start:21-May-2018 Instruction Type:Patient Education How to access health informa tion online - Detail Indication:BMI 40.0-44.9, adult Start:21-May-2018 Instruction Type:Patient Education Patient Instructions Indication:BMI 40.0-44.9, adult Start:21-May-2018 Instruction Type:Provider Instructions for Treatment How to access health informa tion online Indication:Nonsmoker Start:23-Apr-2018 Instruction Type:Patient Education How to access health informa tion online - Detail Indication:Nonsmoker Start:23-Apr-2018 Instruction Type:Patient Education Patient Instructions Indication:Nonsmoker Start:23-Apr-2018 Instruction Type:Provider Instructions for Treatment How to access health informa tion online Indication:BMI 40.0-44.9, adult Start:09-Apr-2018 Instruction Type:Patient Education How to access health informa tion online - Detail Indication:BMI 40.0-44.9, adult Start:09-Apr-2018 Instruction Type:Patient Education Patient Instructions Indication:BMI 40.0-44.9, adult Start:09-Apr-2018 Instruction Type:Provider Instructions for Treatment How to access health informa tion online Indication:Nonsmoker Start:12-Mar-2018 Instruction Type:Patient Education How to access health informa tion online - Detail Indication:Nonsmoker Start:12-Mar-2018 Instruction Type:Patient Education Patient Instructions Indication:Nonsmoker Start:12-Mar-2018 Instruction Type:Provider Instructions for Treatment How to access health informa tion online Indication:Nonsmoker Start:05-Mar-2018 Instruction Type:Patient Education How to access health informa tion online - Detail Indication:Nonsmoker Start:05-Mar-2018 Instruction Type:Patient Education Patient Instructions Indication:Nonsmoker Start:05-Mar-2018 Instruction Type:Provider Instructions for Treatment How to access health informa tion online Indication:Nonsmoker Start:12-Feb-2018 Instruction Type:Patient Education How to access health informa tion online - Detail Indication:Nonsmoker Start:12-Feb-2018 Instruction Type:Patient Education Patient Instructions Indication:Nonsmoker Start:12-Feb-2018 Instruction Type:Provider Instructions for Treatment How to access health informa tion online Indication:Nonsmoker Start:06-Nov-2017 Instruction Type:Patient Education How to access health informa tion online - Detail Indication:Nonsmoker Start:06-Nov-2017 Instruction Type:Patient Education How to access health informa tion online Indication:Nonsmoker Start:09-Oct-2017 Instruction Type:Patient Education How to access health informa tion online - Detail Indication:Nonsmoker Start:09-Oct-2017 Instruction Type:Patient Education Patient Instructions Indication:Nonsmoker Start:09-Oct-2017 Instruction Type:Provider Instructions for Treatment How to access health informa tion online Indication:Nonsmoker Start:02-Oct-2017 Instruction Type:Patient Education How to access health informa tion online - Detail Indication:Nonsmoker Start:02-Oct-2017 Instruction Type:Patient Education Patient Instructions Indication:Nonsmoker Start:02-Oct-2017 Instruction Type:Provider Instructions for Treatment How to access health informa tion online Indication:Nonsmoker Start:25-Sep-2017 Instruction Type:Patient Education How to access health informa tion online - Detail Indication:Nonsmoker Start:25-Sep-2017 Instruction Type:Patient Education Patient Instructions Indication:Nonsmoker Start:25-Sep-2017 Instruction Type:Provider Instructions for Treatment How to access health informa tion online Indication:Abnormal glucose tolerance test (Renamed from Abnormal glucose tolerance test (GTT)) Start:03-Jul-2017 Instruction Type:Patient Education How to access health informa tion online - Detail Indication:Abnormal glucose tolerance test (Renamed from Abnormal glucose tolerance test (GTT)) Start:03-Jul-2017 Instruction Type:Patient Education Patient Instructions Indication:Abnormal glucose tolerance test (Renamed from Abnormal glucose tolerance test (GTT)) Start:03-Jul-2017 Instruction Type:Provider Instructions for Treatment How to access health informa tion online Indication:Nonsmoker Start:27-Feb-2017 Instruction Type:Patient Education How to access health informa tion online - Detail Indication:Nonsmoker Start:27-Feb-2017 Instruction Type:Patient Education Patient Instructions Indication:Nonsmoker Start:27-Feb-2017 Instruction Type:Provider Instructions for Treatment How to access health informa tion online Indication:Nonsmoker Start:05-Dec-2016 Instruction Type:Patient Education How to access health informa tion online - Detail Indication:Nonsmoker Start:05-Dec-2016 Instruction Type:Patient Education Patient Instructions Indication:Nonsmoker Start:05-Dec-2016 Instruction Type:Provider Instructions for Treatment How to access health informa tion online Indication:Nonsmoker Start:07-Nov-2016 Instruction Type:Patient Education How to access health informa tion online - Detail Indication:Nonsmoker Start:07-Nov-2016 Instruction Type:Patient Education Patient Instructions Indication:Nonsmoker Start:07-Nov-2016 Instruction Type:Provider Instructions for Treatment How to access health informa tion online Indication:Nonsmoker Start:15-Oct-2016 Instruction Type:Patient Education How to access health informa tion online Indication:BMI 45.0-49.9, adult Start:06-Aug-2016 Instruction Type:Patient Education How to access health informa tion online - Detail Indication:BMI 45.0-49.9, adult Start:06-Aug-2016 Instruction Type:Patient Education Patient Instructions Indication:BMI 45.0-49.9, adult Start:06-Aug-2016 Instruction Type:Provider Instructions for Treatment Patient Instructions Indication:Abnormal glucose tolerance test (Renamed from Abnormal glucose tolerance test (GTT)) Start:16-May-2016 Instruction Type:Provider Instructions for Treatment DISCONTINUED - HGB A1C (8303 6) Indication:Abnormal glucose tolerance test (Renamed from Abnormal glucose tolerance test (GTT)) Start:16-May-2016 Instruction Type:Patient Education How to access health informa tion online Indication:BMI 45.0-49.9, adult Start:20-Apr-2016 Instruction Type:Patient Education How to access health informa tion online - Detail Indication:BMI 45.0-49.9, adult Start:20-Apr-2016 Instruction Type:Patient Education Patient Instructions Indication:BMI 45.0-49.9, adult Start:20-Apr-2016 Instruction Type:Provider Instructions for Treatment How to access health informa tion online Indication:Nonsmoker Start:02-Apr-2016 Instruction Type:Patient Education How to access health informa tion online - Detail Indication:Nonsmoker Start:02-Apr-2016 Instruction Type:Patient Education Patient Instructions Indication:Nonsmoker Start:02-Apr-2016 Instruction Type:Provider Instructions for Treatment How to access health informa tion online - Detail Indication:Nonsmoker Start:28-Mar-2016 Instruction Type:Patient Education How to access health informa tion online Indication:Nonsmoker Start:28-Mar-2016 Instruction Type:Patient Education Patient Instructions Indication:Nonsmoker Start:28-Mar-2016 Instruction Type:Provider Instructions for Treatment Patient Instructions Indication:Vitamin D deficiency Start:14-Sep-2015 Instruction Type:Provider Instructions for Treatment How to access health informa tion online Indication:Rheumatoid arthritis Start:17-Aug-2015 Instruction Type:Patient Education How to access health informa tion online - Detail Indication:Rheumatoid arthritis Start:17-Aug-2015 Instruction Type:Patient Education Patient Instructions Indication:Rheumatoid arthritis Start:17-Aug-2015 Instruction Type:Provider Instructions for Treatment How to access health informa tion online Indication:Itching Start:23-Mar-2015 Instruction Type:Patient Education How to access health informa tion online - Detail Indication:Itching Start:23-Mar-2015 Instruction Type:Patient Education Patient Instructions Indication:Itching Start:23-Mar-2015 Instruction Type:Provider Instructions for Treatment How to access health informa tion online Indication:Neck pain Start:07-Feb-2015 Instruction Type:Patient Education How to access health informa tion online - Detail Indication:Neck pain Start:07-Feb-2015 Instruction Type:Patient Education Patient Instructions Indication:Neck pain Start:07-Feb-2015 Instruction Type:Provider Instructions for Treatment Patient Instructions Indication:Hypertension Start:07-Jun-2014 Instruction Type:Provider Instructions for Treatment How to access health informa tion online Indication:Hypertension Start:18-Jan-2014 Instruction Type:Patient Education How to access health informa tion online - Detail Indication:Hypertension Start:18-Jan-2014 Instruction Type:Patient Education Patient Instructions Indication:Hypertension Start:18-Jan-2014 Instruction Type:Provider Instructions for Treatment Patient Instructions Indication:Low back pain potentially associated with radiculopathy Start:21-Sep-2013 Instruction Type:Provider Instructions for Treatment Patient Instructions Indication:Low back pain potentially associated with radiculopathy Start:24-Jun-2013 Instruction Type:Provider Instructions for Treatment Patient Instructions Indication:Other intervertebral disc degeneration, lumbar region Start:18-May-2013 Instruction Type:Provider Instructions for Treatment Patient Instructions Indication:Radiculopathy of leg Start:24-Apr-2013 Instruction Type:Provider Instructions for Treatment Patient Instructions Indication:Hypertension Start:07-Jan-2013 Instruction Type:Provider Instructions for Treatment Patient Instructions Indication:Knee pain, left Start:23-Sep-2012 Instruction Type:Provider Instructions for Treatment Patient Instructions Indication:Eczema Start:03-Apr-2012 Instruction Type:Provider Instructions for Treatment Patient Instructions Indication:Allergic rhinitis Start:03-Mar-2012 Instruction Type:Provider Instructions for Treatment Patient Instructions Indication:Hypertension Start:31-Oct-2011 Instruction Type:Provider Instructions for Treatment Name Dates Details How to access health informa tion online Indication:BMI 40.0-44.9, adult Start:21-May-2018 Instruction Type:Patient Education How to access health informa tion online - Detail Indication:BMI 40.0-44.9, adult Start:21-May-2018 Instruction Type:Patient Education Patient Instructions Indication:BMI 40.0-44.9, adult Start:21-May-2018 Instruction Type:Provider Instructions for Treatment How to access health informa tion online Indication:Nonsmoker Start:23-Apr-2018 Instruction Type:Patient Education How to access health informa tion online - Detail Indication:Nonsmoker Start:23-Apr-2018 Instruction Type:Patient Education Patient Instructions Indication:Nonsmoker Start:23-Apr-2018 Instruction Type:Provider Instructions for Treatment How to access health informa tion online Indication:BMI 40.0-44.9, adult Start:09-Apr-2018 Instruction Type:Patient Education How to access health informa tion online - Detail Indication:BMI 40.0-44.9, adult Start:09-Apr-2018 Instruction Type:Patient Education Patient Instructions Indication:BMI 40.0-44.9, adult Start:09-Apr-2018 Instruction Type:Provider Instructions for Treatment How to access health informa tion online Indication:Nonsmoker Start:12-Mar-2018 Instruction Type:Patient Education How to access health informa tion online - Detail Indication:Nonsmoker Start:12-Mar-2018 Instruction Type:Patient Education Patient Instructions Indication:Nonsmoker Start:12-Mar-2018 Instruction Type:Provider Instructions for Treatment How to access health informa tion online Indication:Nonsmoker Start:05-Mar-2018 Instruction Type:Patient Education How to access health informa tion online - Detail Indication:Nonsmoker Start:05-Mar-2018 Instruction Type:Patient Education Patient Instructions Indication:Nonsmoker Start:05-Mar-2018 Instruction Type:Provider Instructions for Treatment How to access health informa tion online Indication:Nonsmoker Start:12-Feb-2018 Instruction Type:Patient Education How to access health informa tion online - Detail Indication:Nonsmoker Start:12-Feb-2018 Instruction Type:Patient Education Patient Instructions Indication:Nonsmoker Start:12-Feb-2018 Instruction Type:Provider Instructions for Treatment How to access health informa tion online Indication:Nonsmoker Start:06-Nov-2017 Instruction Type:Patient Education How to access health informa tion online - Detail Indication:Nonsmoker Start:06-Nov-2017 Instruction Type:Patient Education How to access health informa tion online Indication:Nonsmoker Start:09-Oct-2017 Instruction Type:Patient Education How to access health informa tion online - Detail Indication:Nonsmoker Start:09-Oct-2017 Instruction Type:Patient Education Patient Instructions Indication:Nonsmoker Start:09-Oct-2017 Instruction Type:Provider Instructions for Treatment How to access health informa tion online Indication:Nonsmoker Start:02-Oct-2017 Instruction Type:Patient Education How to access health informa tion online - Detail Indication:Nonsmoker Start:02-Oct-2017 Instruction Type:Patient Education Patient Instructions Indication:Nonsmoker Start:02-Oct-2017 Instruction Type:Provider Instructions for Treatment How to access health informa tion online Indication:Nonsmoker Start:25-Sep-2017 Instruction Type:Patient Education How to access health informa tion online - Detail Indication:Nonsmoker Start:25-Sep-2017 Instruction Type:Patient Education Patient Instructions Indication:Nonsmoker Start:25-Sep-2017 Instruction Type:Provider Instructions for Treatment How to access health informa tion online Indication:Abnormal glucose tolerance test (Renamed from Abnormal glucose tolerance test (GTT)) Start:03-Jul-2017 Instruction Type:Patient Education How to access health informa tion online - Detail Indication:Abnormal glucose tolerance test (Renamed from Abnormal glucose tolerance test (GTT)) Start:03-Jul-2017 Instruction Type:Patient Education Patient Instructions Indication:Abnormal glucose tolerance test (Renamed from Abnormal glucose tolerance test (GTT)) Start:03-Jul-2017 Instruction Type:Provider Instructions for Treatment How to access health informa tion online Indication:Nonsmoker Start:27-Feb-2017 Instruction Type:Patient Education How to access health informa tion online - Detail Indication:Nonsmoker Start:27-Feb-2017 Instruction Type:Patient Education Patient Instructions Indication:Nonsmoker Start:27-Feb-2017 Instruction Type:Provider Instructions for Treatment How to access health informa tion online Indication:Nonsmoker Start:05-Dec-2016 Instruction Type:Patient Education How to access health informa tion online - Detail Indication:Nonsmoker Start:05-Dec-2016 Instruction Type:Patient Education Patient Instructions Indication:Nonsmoker Start:05-Dec-2016 Instruction Type:Provider Instructions for Treatment How to access health informa tion online Indication:Nonsmoker Start:07-Nov-2016 Instruction Type:Patient Education How to access health informa tion online - Detail Indication:Nonsmoker Start:07-Nov-2016 Instruction Type:Patient Education Patient Instructions Indication:Nonsmoker Start:07-Nov-2016 Instruction Type:Provider Instructions for Treatment How to access health informa tion online Indication:Nonsmoker Start:15-Oct-2016 Instruction Type:Patient Education How to access health informa tion online Indication:BMI 45.0-49.9, adult Start:06-Aug-2016 Instruction Type:Patient Education How to access health informa tion online - Detail Indication:BMI 45.0-49.9, adult Start:06-Aug-2016 Instruction Type:Patient Education Patient Instructions Indication:BMI 45.0-49.9, adult Start:06-Aug-2016 Instruction Type:Provider Instructions for Treatment Patient Instructions Indication:Abnormal glucose tolerance test (Renamed from Abnormal glucose tolerance test (GTT)) Start:16-May-2016 Instruction Type:Provider Instructions for Treatment DISCONTINUED - HGB A1C (8303 6) Indication:Abnormal glucose tolerance test (Renamed from Abnormal glucose tolerance test (GTT)) Start:16-May-2016 Instruction Type:Patient Education How to access health informa tion online Indication:BMI 45.0-49.9, adult Start:20-Apr-2016 Instruction Type:Patient Education How to access health informa tion online - Detail Indication:BMI 45.0-49.9, adult Start:20-Apr-2016 Instruction Type:Patient Education Patient Instructions Indication:BMI 45.0-49.9, adult Start:20-Apr-2016 Instruction Type:Provider Instructions for Treatment How to access health informa tion online Indication:Nonsmoker Start:02-Apr-2016 Instruction Type:Patient Education How to access health informa tion online - Detail Indication:Nonsmoker Start:02-Apr-2016 Instruction Type:Patient Education Patient Instructions Indication:Nonsmoker Start:02-Apr-2016 Instruction Type:Provider Instructions for Treatment How to access health informa tion online - Detail Indication:Nonsmoker Start:28-Mar-2016 Instruction Type:Patient Education How to access health informa tion online Indication:Nonsmoker Start:28-Mar-2016 Instruction Type:Patient Education Patient Instructions Indication:Nonsmoker Start:28-Mar-2016 Instruction Type:Provider Instructions for Treatment Patient Instructions Indication:Vitamin D deficiency Start:14-Sep-2015 Instruction Type:Provider Instructions for Treatment How to access health informa tion online Indication:Rheumatoid arthritis Start:17-Aug-2015 Instruction Type:Patient Education How to access health informa tion online - Detail Indication:Rheumatoid arthritis Start:17-Aug-2015 Instruction Type:Patient Education Patient Instructions Indication:Rheumatoid arthritis Start:17-Aug-2015 Instruction Type:Provider Instructions for Treatment How to access health informa tion online Indication:Itching Start:23-Mar-2015 Instruction Type:Patient Education How to access health informa tion online - Detail Indication:Itching Start:23-Mar-2015 Instruction Type:Patient Education Patient Instructions Indication:Itching Start:23-Mar-2015 Instruction Type:Provider Instructions for Treatment How to access health informa tion online Indication:Neck pain Start:07-Feb-2015 Instruction Type:Patient Education How to access health informa tion online - Detail Indication:Neck pain Start:07-Feb-2015 Instruction Type:Patient Education Patient Instructions Indication:Neck pain Start:07-Feb-2015 Instruction Type:Provider Instructions for Treatment Patient Instructions Indication:Hypertension Start:07-Jun-2014 Instruction Type:Provider Instructions for Treatment How to access health informa tion online Indication:Hypertension Start:18-Jan-2014 Instruction Type:Patient Education How to access health informa tion online - Detail Indication:Hypertension Start:18-Jan-2014 Instruction Type:Patient Education Patient Instructions Indication:Hypertension Start:18-Jan-2014 Instruction Type:Provider Instructions for Treatment Patient Instructions Indication:Low back pain potentially associated with radiculopathy Start:21-Sep-2013 Instruction Type:Provider Instructions for Treatment Patient Instructions Indication:Low back pain potentially associated with radiculopathy Start:24-Jun-2013 Instruction Type:Provider Instructions for Treatment Patient Instructions Indication:Other intervertebral disc degeneration, lumbar region Start:18-May-2013 Instruction Type:Provider Instructions for Treatment Patient Instructions Indication:Radiculopathy of leg Start:24-Apr-2013 Instruction Type:Provider Instructions for Treatment Patient Instructions Indication:Hypertension Start:07-Jan-2013 Instruction Type:Provider Instructions for Treatment Patient Instructions Indication:Knee pain, left Start:23-Sep-2012 Instruction Type:Provider Instructions for Treatment Patient Instructions Indication:Eczema Start:03-Apr-2012 Instruction Type:Provider Instructions for Treatment Patient Instructions Indication:Allergic rhinitis Start:03-Mar-2012 Instruction Type:Provider Instructions for Treatment Patient Instructions Indication:Hypertension Start:31-Oct-2011 Instruction Type:Provider Instructions for Treatment Name Dates Details Patient Instructions Indication:BMI 45.0-49.9, adult Start:13-Apr-2020 Instruction Type:Provider Instructions for Treatment How to Access Health Informa tion Online using Patient Portal and [employer]rd [employer] Apps Indication:BMI 45.0-49.9, adult Start:13-Apr-2020 Instruction Type:Patient Education How to Access Health Informa tion Online using Patient Portal and [employer]rd [employer] Apps Indication:Nonsmoker Start:25-Feb-2020 Instruction Type:Patient Education Patient Instructions Indication:Nonsmoker Start:25-Feb-2020 Instruction Type:Provider Instructions for Treatment How to access health informa tion online Indication:Nonsmoker Start:02-Dec-2019 Instruction Type:Patient Education How to access health informa tion online - Detail Indication:Nonsmoker Start:02-Dec-2019 Instruction Type:Patient Education Patient Instructions Indication:Nonsmoker Start:02-Dec-2019 Instruction Type:Provider Instructions for Treatment How to access health informa tion online Indication:Abnormal glucose tolerance test (Renamed from Abnormal glucose tolerance test (GTT)) Start:29-Jul-2019 Instruction Type:Patient Education How to access health informa tion online - Detail Indication:Abnormal glucose tolerance test (Renamed from Abnormal glucose tolerance test (GTT)) Start:29-Jul-2019 Instruction Type:Patient Education Patient Instructions Indication:Abnormal glucose tolerance test (Renamed from Abnormal glucose tolerance test (GTT)) Start:29-Jul-2019 Instruction Type:Provider Instructions for Treatment How to access health informa tion online Indication:BMI 45.0-49.9, adult Start:25-Mar-2019 Instruction Type:Patient Education How to access health informa tion online - Detail Indication:BMI 45.0-49.9, adult Start:25-Mar-2019 Instruction Type:Patient Education Patient Instructions Indication:BMI 45.0-49.9, adult Start:25-Mar-2019 Instruction Type:Provider Instructions for Treatment How to access health informa tion online Indication:Nonsmoker Start:19-Nov-2018 Instruction Type:Patient Education How to access health informa tion online - Detail Indication:Nonsmoker Start:19-Nov-2018 Instruction Type:Patient Education Patient Instructions Indication:Nonsmoker Start:19-Nov-2018 Instruction Type:Provider Instructions for Treatment How to access health informa tion online Indication:Leg swelling Start:29-Oct-2018 Instruction Type:Patient Education How to access health informa tion online - Detail Indication:Leg swelling Start:29-Oct-2018 Instruction Type:Patient Education Patient Instructions Indication:Leg swelling Start:29-Oct-2018 Instruction Type:Provider Instructions for Treatment How to access health informa tion online Indication:BMI 40.0-44.9, adult Start:21-Aug-2018 Instruction Type:Patient Education How to access health informa tion online - Detail Indication:BMI 40.0-44.9, adult Start:21-Aug-2018 Instruction Type:Patient Education Patient Instructions Indication:BMI 40.0-44.9, adult Start:21-Aug-2018 Instruction Type:Provider Instructions for Treatment How to access health informa tion online Indication:BMI 40.0-44.9, adult Start:13-Aug-2018 Instruction Type:Patient Education How to access health informa tion online - Detail Indication:BMI 40.0-44.9, adult Start:13-Aug-2018 Instruction Type:Patient Education Patient Instructions Indication:BMI 40.0-44.9, adult Start:13-Aug-2018 Instruction Type:Provider Instructions for Treatment How to access health informa tion online Indication:BMI 40.0-44.9, adult Start:21-May-2018 Instruction Type:Patient Education How to access health informa tion online - Detail Indication:BMI 40.0-44.9, adult Start:21-May-2018 Instruction Type:Patient Education Patient Instructions Indication:BMI 40.0-44.9, adult Start:21-May-2018 Instruction Type:Provider Instructions for Treatment How to access health informa tion online Indication:Nonsmoker Start:23-Apr-2018 Instruction Type:Patient Education How to access health informa tion online - Detail Indication:Nonsmoker Start:23-Apr-2018 Instruction Type:Patient Education Patient Instructions Indication:Nonsmoker Start:23-Apr-2018 Instruction Type:Provider Instructions for Treatment How to access health informa tion online Indication:BMI 40.0-44.9, adult Start:09-Apr-2018 Instruction Type:Patient Education How to access health informa tion online - Detail Indication:BMI 40.0-44.9, adult Start:09-Apr-2018 Instruction Type:Patient Education Patient Instructions Indication:BMI 40.0-44.9, adult Start:09-Apr-2018 Instruction Type:Provider Instructions for Treatment How to access health informa tion online Indication:Nonsmoker Start:12-Mar-2018 Instruction Type:Patient Education How to access health informa tion online - Detail Indication:Nonsmoker Start:12-Mar-2018 Instruction Type:Patient Education Patient Instructions Indication:Nonsmoker Start:12-Mar-2018 Instruction Type:Provider Instructions for Treatment How to access health informa tion online Indication:Nonsmoker Start:05-Mar-2018 Instruction Type:Patient Education How to access health informa tion online - Detail Indication:Nonsmoker Start:05-Mar-2018 Instruction Type:Patient Education Patient Instructions Indication:Nonsmoker Start:05-Mar-2018 Instruction Type:Provider Instructions for Treatment How to access health informa tion online Indication:Nonsmoker Start:12-Feb-2018 Instruction Type:Patient Education How to access health informa tion online - Detail Indication:Nonsmoker Start:12-Feb-2018 Instruction Type:Patient Education Patient Instructions Indication:Nonsmoker Start:12-Feb-2018 Instruction Type:Provider Instructions for Treatment How to access health informa tion online Indication:Nonsmoker Start:06-Nov-2017 Instruction Type:Patient Education How to access health informa tion online - Detail Indication:Nonsmoker Start:06-Nov-2017 Instruction Type:Patient Education How to access health informa tion online Indication:Nonsmoker Start:09-Oct-2017 Instruction Type:Patient Education How to access health informa tion online - Detail Indication:Nonsmoker Start:09-Oct-2017 Instruction Type:Patient Education Patient Instructions Indication:Nonsmoker Start:09-Oct-2017 Instruction Type:Provider Instructions for Treatment How to access health informa tion online Indication:Nonsmoker Start:02-Oct-2017 Instruction Type:Patient Education How to access health informa tion online - Detail Indication:Nonsmoker Start:02-Oct-2017 Instruction Type:Patient Education Patient Instructions Indication:Nonsmoker Start:02-Oct-2017 Instruction Type:Provider Instructions for Treatment How to access health informa tion online Indication:Nonsmoker Start:25-Sep-2017 Instruction Type:Patient Education How to access health informa tion online - Detail Indication:Nonsmoker Start:25-Sep-2017 Instruction Type:Patient Education Patient Instructions Indication:Nonsmoker Start:25-Sep-2017 Instruction Type:Provider Instructions for Treatment How to access health informa tion online Indication:Abnormal glucose tolerance test (Renamed from Abnormal glucose tolerance test (GTT)) Start:03-Jul-2017 Instruction Type:Patient Education How to access health informa tion online - Detail Indication:Abnormal glucose tolerance test (Renamed from Abnormal glucose tolerance test (GTT)) Start:03-Jul-2017 Instruction Type:Patient Education Patient Instructions Indication:Abnormal glucose tolerance test (Renamed from Abnormal glucose tolerance test (GTT)) Start:03-Jul-2017 Instruction Type:Provider Instructions for Treatment How to access health informa tion online Indication:Nonsmoker Start:27-Feb-2017 Instruction Type:Patient Education How to access health informa tion online - Detail Indication:Nonsmoker Start:27-Feb-2017 Instruction Type:Patient Education Patient Instructions Indication:Nonsmoker Start:27-Feb-2017 Instruction Type:Provider Instructions for Treatment How to access health informa tion online Indication:Nonsmoker Start:05-Dec-2016 Instruction Type:Patient Education How to access health informa tion online - Detail Indication:Nonsmoker Start:05-Dec-2016 Instruction Type:Patient Education Patient Instructions Indication:Nonsmoker Start:05-Dec-2016 Instruction Type:Provider Instructions for Treatment How to access health informa tion online Indication:Nonsmoker Start:07-Nov-2016 Instruction Type:Patient Education How to access health informa tion online - Detail Indication:Nonsmoker Start:07-Nov-2016 Instruction Type:Patient Education Patient Instructions Indication:Nonsmoker Start:07-Nov-2016 Instruction Type:Provider Instructions for Treatment How to access health informa tion online Indication:Nonsmoker Start:15-Oct-2016 Instruction Type:Patient Education How to access health informa tion online Indication:BMI 45.0-49.9, adult Start:06-Aug-2016 Instruction Type:Patient Education How to access health informa tion online - Detail Indication:BMI 45.0-49.9, adult Start:06-Aug-2016 Instruction Type:Patient Education Patient Instructions Indication:BMI 45.0-49.9, adult Start:06-Aug-2016 Instruction Type:Provider Instructions for Treatment Patient Instructions Indication:Abnormal glucose tolerance test (Renamed from Abnormal glucose tolerance test (GTT)) Start:16-May-2016 Instruction Type:Provider Instructions for Treatment DISCONTINUED - HGB A1C (8303 6) Indication:Abnormal glucose tolerance test (Renamed from Abnormal glucose tolerance test (GTT)) Start:16-May-2016 Instruction Type:Patient Education How to access health informa tion online Indication:BMI 45.0-49.9, adult Start:20-Apr-2016 Instruction Type:Patient Education How to access health informa tion online - Detail Indication:BMI 45.0-49.9, adult Start:20-Apr-2016 Instruction Type:Patient Education Patient Instructions Indication:BMI 45.0-49.9, adult Start:20-Apr-2016 Instruction Type:Provider Instructions for Treatment How to access health informa tion online Indication:Nonsmoker Start:02-Apr-2016 Instruction Type:Patient Education How to access health informa tion online - Detail Indication:Nonsmoker Start:02-Apr-2016 Instruction Type:Patient Education Patient Instructions Indication:Nonsmoker Start:02-Apr-2016 Instruction Type:Provider Instructions for Treatment How to access health informa tion online - Detail Indication:Nonsmoker Start:28-Mar-2016 Instruction Type:Patient Education How to access health informa tion online Indication:Nonsmoker Start:28-Mar-2016 Instruction Type:Patient Education Patient Instructions Indication:Nonsmoker Start:28-Mar-2016 Instruction Type:Provider Instructions for Treatment Patient Instructions Indication:Vitamin D deficiency Start:14-Sep-2015 Instruction Type:Provider Instructions for Treatment How to access health informa tion online Indication:Rheumatoid arthritis Start:17-Aug-2015 Instruction Type:Patient Education How to access health informa tion online - Detail Indication:Rheumatoid arthritis Start:17-Aug-2015 Instruction Type:Patient Education Patient Instructions Indication:Rheumatoid arthritis Start:17-Aug-2015 Instruction Type:Provider Instructions for Treatment How to access health informa tion online Indication:Itching Start:23-Mar-2015 Instruction Type:Patient Education How to access health informa tion online - Detail Indication:Itching Start:23-Mar-2015 Instruction Type:Patient Education Patient Instructions Indication:Itching Start:23-Mar-2015 Instruction Type:Provider Instructions for Treatment How to access health informa tion online Indication:Neck pain Start:07-Feb-2015 Instruction Type:Patient Education How to access health informa tion online - Detail Indication:Neck pain Start:07-Feb-2015 Instruction Type:Patient Education Patient Instructions Indication:Neck pain Start:07-Feb-2015 Instruction Type:Provider Instructions for Treatment Patient Instructions Indication:Hypertension Start:07-Jun-2014 Instruction Type:Provider Instructions for Treatment How to access health informa tion online Indication:Hypertension Start:18-Jan-2014 Instruction Type:Patient Education How to access health informa tion online - Detail Indication:Hypertension Start:18-Jan-2014 Instruction Type:Patient Education Patient Instructions Indication:Hypertension Start:18-Jan-2014 Instruction Type:Provider Instructions for Treatment Patient Instructions Indication:Low back pain potentially associated with radiculopathy Start:21-Sep-2013 Instruction Type:Provider Instructions for Treatment Patient Instructions Indication:Low back pain potentially associated with radiculopathy Start:24-Jun-2013 Instruction Type:Provider Instructions for Treatment Patient Instructions Indication:Other intervertebral disc degeneration, lumbar region Start:18-May-2013 Instruction Type:Provider Instructions for Treatment Patient Instructions Indication:Radiculopathy of leg Start:24-Apr-2013 Instruction Type:Provider Instructions for Treatment Patient Instructions Indication:Hypertension Start:07-Jan-2013 Instruction Type:Provider Instructions for Treatment Patient Instructions Indication:Knee pain, left Start:23-Sep-2012 Instruction Type:Provider Instructions for Treatment Patient Instructions Indication:Eczema Start:03-Apr-2012 Instruction Type:Provider Instructions for Treatment Patient Instructions Indication:Allergic rhinitis Start:03-Mar-2012 Instruction Type:Provider Instructions for Treatment Patient Instructions Indication:Hypertension Start:31-Oct-2011 Instruction Type:Provider Instructions for Treatment Name Dates Details How to access health informa tion online Indication:BMI 40.0-44.9, adult Start:21-Aug-2018 Instruction Type:Patient Education How to access health informa tion online - Detail Indication:BMI 40.0-44.9, adult Start:21-Aug-2018 Instruction Type:Patient Education Patient Instructions Indication:BMI 40.0-44.9, adult Start:21-Aug-2018 Instruction Type:Provider Instructions for Treatment How to access health informa tion online Indication:BMI 40.0-44.9, adult Start:13-Aug-2018 Instruction Type:Patient Education How to access health informa tion online - Detail Indication:BMI 40.0-44.9, adult Start:13-Aug-2018 Instruction Type:Patient Education Patient Instructions Indication:BMI 40.0-44.9, adult Start:13-Aug-2018 Instruction Type:Provider Instructions for Treatment How to access health informa tion online Indication:BMI 40.0-44.9, adult Start:21-May-2018 Instruction Type:Patient Education How to access health informa tion online - Detail Indication:BMI 40.0-44.9, adult Start:21-May-2018 Instruction Type:Patient Education Patient Instructions Indication:BMI 40.0-44.9, adult Start:21-May-2018 Instruction Type:Provider Instructions for Treatment How to access health informa tion online Indication:Nonsmoker Start:23-Apr-2018 Instruction Type:Patient Education How to access health informa tion online - Detail Indication:Nonsmoker Start:23-Apr-2018 Instruction Type:Patient Education Patient Instructions Indication:Nonsmoker Start:23-Apr-2018 Instruction Type:Provider Instructions for Treatment How to access health informa tion online Indication:BMI 40.0-44.9, adult Start:09-Apr-2018 Instruction Type:Patient Education How to access health informa tion online - Detail Indication:BMI 40.0-44.9, adult Start:09-Apr-2018 Instruction Type:Patient Education Patient Instructions Indication:BMI 40.0-44.9, adult Start:09-Apr-2018 Instruction Type:Provider Instructions for Treatment How to access health informa tion online Indication:Nonsmoker Start:12-Mar-2018 Instruction Type:Patient Education How to access health informa tion online - Detail Indication:Nonsmoker Start:12-Mar-2018 Instruction Type:Patient Education Patient Instructions Indication:Nonsmoker Start:12-Mar-2018 Instruction Type:Provider Instructions for Treatment How to access health informa tion online Indication:Nonsmoker Start:05-Mar-2018 Instruction Type:Patient Education How to access health informa tion online - Detail Indication:Nonsmoker Start:05-Mar-2018 Instruction Type:Patient Education Patient Instructions Indication:Nonsmoker Start:05-Mar-2018 Instruction Type:Provider Instructions for Treatment How to access health informa tion online Indication:Nonsmoker Start:12-Feb-2018 Instruction Type:Patient Education How to access health informa tion online - Detail Indication:Nonsmoker Start:12-Feb-2018 Instruction Type:Patient Education Patient Instructions Indication:Nonsmoker Start:12-Feb-2018 Instruction Type:Provider Instructions for Treatment How to access health informa tion online Indication:Nonsmoker Start:06-Nov-2017 Instruction Type:Patient Education How to access health informa tion online - Detail Indication:Nonsmoker Start:06-Nov-2017 Instruction Type:Patient Education How to access health informa tion online Indication:Nonsmoker Start:09-Oct-2017 Instruction Type:Patient Education How to access health informa tion online - Detail Indication:Nonsmoker Start:09-Oct-2017 Instruction Type:Patient Education Patient Instructions Indication:Nonsmoker Start:09-Oct-2017 Instruction Type:Provider Instructions for Treatment How to access health informa tion online Indication:Nonsmoker Start:02-Oct-2017 Instruction Type:Patient Education How to access health informa tion online - Detail Indication:Nonsmoker Start:02-Oct-2017 Instruction Type:Patient Education Patient Instructions Indication:Nonsmoker Start:02-Oct-2017 Instruction Type:Provider Instructions for Treatment How to access health informa tion online Indication:Nonsmoker Start:25-Sep-2017 Instruction Type:Patient Education How to access health informa tion online - Detail Indication:Nonsmoker Start:25-Sep-2017 Instruction Type:Patient Education Patient Instructions Indication:Nonsmoker Start:25-Sep-2017 Instruction Type:Provider Instructions for Treatment How to access health informa tion online Indication:Abnormal glucose tolerance test (Renamed from Abnormal glucose tolerance test (GTT)) Start:03-Jul-2017 Instruction Type:Patient Education How to access health informa tion online - Detail Indication:Abnormal glucose tolerance test (Renamed from Abnormal glucose tolerance test (GTT)) Start:03-Jul-2017 Instruction Type:Patient Education Patient Instructions Indication:Abnormal glucose tolerance test (Renamed from Abnormal glucose tolerance test (GTT)) Start:03-Jul-2017 Instruction Type:Provider Instructions for Treatment How to access health informa tion online Indication:Nonsmoker Start:27-Feb-2017 Instruction Type:Patient Education How to access health informa tion online - Detail Indication:Nonsmoker Start:27-Feb-2017 Instruction Type:Patient Education Patient Instructions Indication:Nonsmoker Start:27-Feb-2017 Instruction Type:Provider Instructions for Treatment How to access health informa tion online Indication:Nonsmoker Start:05-Dec-2016 Instruction Type:Patient Education How to access health informa tion online - Detail Indication:Nonsmoker Start:05-Dec-2016 Instruction Type:Patient Education Patient Instructions Indication:Nonsmoker Start:05-Dec-2016 Instruction Type:Provider Instructions for Treatment How to access health informa tion online Indication:Nonsmoker Start:07-Nov-2016 Instruction Type:Patient Education How to access health informa tion online - Detail Indication:Nonsmoker Start:07-Nov-2016 Instruction Type:Patient Education Patient Instructions Indication:Nonsmoker Start:07-Nov-2016 Instruction Type:Provider Instructions for Treatment How to access health informa tion online Indication:Nonsmoker Start:15-Oct-2016 Instruction Type:Patient Education How to access health informa tion online Indication:BMI 45.0-49.9, adult Start:06-Aug-2016 Instruction Type:Patient Education How to access health informa tion online - Detail Indication:BMI 45.0-49.9, adult Start:06-Aug-2016 Instruction Type:Patient Education Patient Instructions Indication:BMI 45.0-49.9, adult Start:06-Aug-2016 Instruction Type:Provider Instructions for Treatment Patient Instructions Indication:Abnormal glucose tolerance test (Renamed from Abnormal glucose tolerance test (GTT)) Start:16-May-2016 Instruction Type:Provider Instructions for Treatment DISCONTINUED - HGB A1C (8303 6) Indication:Abnormal glucose tolerance test (Renamed from Abnormal glucose tolerance test (GTT)) Start:16-May-2016 Instruction Type:Patient Education How to access health informa tion online Indication:BMI 45.0-49.9, adult Start:20-Apr-2016 Instruction Type:Patient Education How to access health informa tion online - Detail Indication:BMI 45.0-49.9, adult Start:20-Apr-2016 Instruction Type:Patient Education Patient Instructions Indication:BMI 45.0-49.9, adult Start:20-Apr-2016 Instruction Type:Provider Instructions for Treatment How to access health informa tion online Indication:Nonsmoker Start:02-Apr-2016 Instruction Type:Patient Education How to access health informa tion online - Detail Indication:Nonsmoker Start:02-Apr-2016 Instruction Type:Patient Education Patient Instructions Indication:Nonsmoker Start:02-Apr-2016 Instruction Type:Provider Instructions for Treatment How to access health informa tion online - Detail Indication:Nonsmoker Start:28-Mar-2016 Instruction Type:Patient Education How to access health informa tion online Indication:Nonsmoker Start:28-Mar-2016 Instruction Type:Patient Education Patient Instructions Indication:Nonsmoker Start:28-Mar-2016 Instruction Type:Provider Instructions for Treatment Patient Instructions Indication:Vitamin D deficiency Start:14-Sep-2015 Instruction Type:Provider Instructions for Treatment How to access health informa tion online Indication:Rheumatoid arthritis Start:17-Aug-2015 Instruction Type:Patient Education How to access health informa tion online - Detail Indication:Rheumatoid arthritis Start:17-Aug-2015 Instruction Type:Patient Education Patient Instructions Indication:Rheumatoid arthritis Start:17-Aug-2015 Instruction Type:Provider Instructions for Treatment How to access health informa tion online Indication:Itching Start:23-Mar-2015 Instruction Type:Patient Education How to access health informa tion online - Detail Indication:Itching Start:23-Mar-2015 Instruction Type:Patient Education Patient Instructions Indication:Itching Start:23-Mar-2015 Instruction Type:Provider Instructions for Treatment How to access health informa tion online Indication:Neck pain Start:07-Feb-2015 Instruction Type:Patient Education How to access health informa tion online - Detail Indication:Neck pain Start:07-Feb-2015 Instruction Type:Patient Education Patient Instructions Indication:Neck pain Start:07-Feb-2015 Instruction Type:Provider Instructions for Treatment Patient Instructions Indication:Hypertension Start:07-Jun-2014 Instruction Type:Provider Instructions for Treatment How to access health informa tion online Indication:Hypertension Start:18-Jan-2014 Instruction Type:Patient Education How to access health informa tion online - Detail Indication:Hypertension Start:18-Jan-2014 Instruction Type:Patient Education Patient Instructions Indication:Hypertension Start:18-Jan-2014 Instruction Type:Provider Instructions for Treatment Patient Instructions Indication:Low back pain potentially associated with radiculopathy Start:21-Sep-2013 Instruction Type:Provider Instructions for Treatment Patient Instructions Indication:Low back pain potentially associated with radiculopathy Start:24-Jun-2013 Instruction Type:Provider Instructions for Treatment Patient Instructions Indication:Other intervertebral disc degeneration, lumbar region Start:18-May-2013 Instruction Type:Provider Instructions for Treatment Patient Instructions Indication:Radiculopathy of leg Start:24-Apr-2013 Instruction Type:Provider Instructions for Treatment Patient Instructions Indication:Hypertension Start:07-Jan-2013 Instruction Type:Provider Instructions for Treatment Patient Instructions Indication:Knee pain, left Start:23-Sep-2012 Instruction Type:Provider Instructions for Treatment Patient Instructions Indication:Eczema Start:03-Apr-2012 Instruction Type:Provider Instructions for Treatment Patient Instructions Indication:Allergic rhinitis Start:03-Mar-2012 Instruction Type:Provider Instructions for Treatment Patient Instructions Indication:Hypertension Start:31-Oct-2011 Instruction Type:Provider Instructions for Treatment Name Dates Details Nonsmoker : How to access he alth information online Indication:Nonsmoker Nonsmoker : How to access he alth information online - Detail Indication:Nonsmoker Nonsmoker : Patient Instruct ions Indication:Nonsmoker BMI 40.0-44.9, adult : How t o access health information online Indication:BMI 40.0-44.9, adult BMI 40.0-44.9, adult : How t o access health information online - Detail Indication:BMI 40.0-44.9, adult BMI 40.0-44.9, adult : Maryellen nt Instructions Indication:BMI 40.0-44.9, adult Abnormal glucose tolerance t est (Renamed from Abnormal glucose tolerance test (GTT)) : How to access health information online Indication:Abnormal glucose tolerance test (Renamed from Abnormal glucose tolerance test (GTT)) Abnormal glucose tolerance t est (Renamed from Abnormal glucose tolerance test (GTT)) : How to access health information online - Detail Indication:Abnormal glucose tolerance test (Renamed from Abnormal glucose tolerance test (GTT)) Abnormal glucose tolerance t est (Renamed from Abnormal glucose tolerance test (GTT)) : Patient Instructions Indication:Abnormal glucose tolerance test (Renamed from Abnormal glucose tolerance test (GTT)) BMI 45.0-49.9, adult : How t o access health information online Indication:BMI 45.0-49.9, adult BMI 45.0-49.9, adult : How t o access health information online - Detail Indication:BMI 45.0-49.9, adult BMI 45.0-49.9, adult : Maryellen nt Instructions Indication:BMI 45.0-49.9, adult Abnormal glucose tolerance t est (Renamed from Abnormal glucose tolerance test (GTT)) : DISCONTINUED - HGB A1C (39967) Indication:Abnormal glucose tolerance test (Renamed from Abnormal glucose tolerance test (GTT)) Vitamin D deficiency : Maryellen butcher Instructions Indication:Vitamin D deficiency Rheumatoid arthritis : How t o access health information online Indication:Rheumatoid arthritis Rheumatoid arthritis : How t o access health information online - Detail Indication:Rheumatoid arthritis Rheumatoid arthritis : Maryellen nt Instructions Indication:Rheumatoid arthritis Itching : How to access heal th information online Indication:Itching Itching : How to access heal th information online - Detail Indication:Itching Itching : Patient Instructio ns Indication:Itching Neck pain : How to access he alth information online Indication:Neck pain Neck pain : How to access he alth information online - Detail Indication:Neck pain Neck pain : Patient Instruct ions Indication:Neck pain Hypertension : Patient Instr uctions Indication:Hypertension Hypertension : How to access health information online Indication:Hypertension Hypertension : How to access health information online - Detail Indication:Hypertension Low back pain potentially as sociated with radiculopathy : Patient Instructions Indication:Low back pain potentially associated with radiculopathy Other intervertebral disc de generation, lumbar region : Patient Instructions Indication:Other intervertebral disc degeneration, lumbar region Radiculopathy of leg : Patie nt Instructions Indication:Radiculopathy of leg Knee pain, left : Patient In structions Indication:Knee pain, left Eczema : Patient Instruction s Indication:Eczema Allergic rhinitis : Patient Instructions Indication:Allergic rhinitis Name Dates Details How to access health informa tion online Indication:BMI 40.0-44.9, adult Start:13-Aug-2018 Instruction Type:Patient Education How to access health informa tion online - Detail Indication:BMI 40.0-44.9, adult Start:13-Aug-2018 Instruction Type:Patient Education Patient Instructions Indication:BMI 40.0-44.9, adult Start:13-Aug-2018 Instruction Type:Provider Instructions for Treatment How to access health informa tion online Indication:BMI 40.0-44.9, adult Start:21-May-2018 Instruction Type:Patient Education How to access health informa tion online - Detail Indication:BMI 40.0-44.9, adult Start:21-May-2018 Instruction Type:Patient Education Patient Instructions Indication:BMI 40.0-44.9, adult Start:21-May-2018 Instruction Type:Provider Instructions for Treatment How to access health informa tion online Indication:Nonsmoker Start:23-Apr-2018 Instruction Type:Patient Education How to access health informa tion online - Detail Indication:Nonsmoker Start:23-Apr-2018 Instruction Type:Patient Education Patient Instructions Indication:Nonsmoker Start:23-Apr-2018 Instruction Type:Provider Instructions for Treatment How to access health informa tion online Indication:BMI 40.0-44.9, adult Start:09-Apr-2018 Instruction Type:Patient Education How to access health informa tion online - Detail Indication:BMI 40.0-44.9, adult Start:09-Apr-2018 Instruction Type:Patient Education Patient Instructions Indication:BMI 40.0-44.9, adult Start:09-Apr-2018 Instruction Type:Provider Instructions for Treatment How to access health informa tion online Indication:Nonsmoker Start:12-Mar-2018 Instruction Type:Patient Education How to access health informa tion online - Detail Indication:Nonsmoker Start:12-Mar-2018 Instruction Type:Patient Education Patient Instructions Indication:Nonsmoker Start:12-Mar-2018 Instruction Type:Provider Instructions for Treatment How to access health informa tion online Indication:Nonsmoker Start:05-Mar-2018 Instruction Type:Patient Education How to access health informa tion online - Detail Indication:Nonsmoker Start:05-Mar-2018 Instruction Type:Patient Education Patient Instructions Indication:Nonsmoker Start:05-Mar-2018 Instruction Type:Provider Instructions for Treatment How to access health informa tion online Indication:Nonsmoker Start:12-Feb-2018 Instruction Type:Patient Education How to access health informa tion online - Detail Indication:Nonsmoker Start:12-Feb-2018 Instruction Type:Patient Education Patient Instructions Indication:Nonsmoker Start:12-Feb-2018 Instruction Type:Provider Instructions for Treatment How to access health informa tion online Indication:Nonsmoker Start:06-Nov-2017 Instruction Type:Patient Education How to access health informa tion online - Detail Indication:Nonsmoker Start:06-Nov-2017 Instruction Type:Patient Education How to access health informa tion online Indication:Nonsmoker Start:09-Oct-2017 Instruction Type:Patient Education How to access health informa tion online - Detail Indication:Nonsmoker Start:09-Oct-2017 Instruction Type:Patient Education Patient Instructions Indication:Nonsmoker Start:09-Oct-2017 Instruction Type:Provider Instructions for Treatment How to access health informa tion online Indication:Nonsmoker Start:02-Oct-2017 Instruction Type:Patient Education How to access health informa tion online - Detail Indication:Nonsmoker Start:02-Oct-2017 Instruction Type:Patient Education Patient Instructions Indication:Nonsmoker Start:02-Oct-2017 Instruction Type:Provider Instructions for Treatment How to access health informa tion online Indication:Nonsmoker Start:25-Sep-2017 Instruction Type:Patient Education How to access health informa tion online - Detail Indication:Nonsmoker Start:25-Sep-2017 Instruction Type:Patient Education Patient Instructions Indication:Nonsmoker Start:25-Sep-2017 Instruction Type:Provider Instructions for Treatment How to access health informa tion online Indication:Abnormal glucose tolerance test (Renamed from Abnormal glucose tolerance test (GTT)) Start:03-Jul-2017 Instruction Type:Patient Education How to access health informa tion online - Detail Indication:Abnormal glucose tolerance test (Renamed from Abnormal glucose tolerance test (GTT)) Start:03-Jul-2017 Instruction Type:Patient Education Patient Instructions Indication:Abnormal glucose tolerance test (Renamed from Abnormal glucose tolerance test (GTT)) Start:03-Jul-2017 Instruction Type:Provider Instructions for Treatment How to access health informa tion online Indication:Nonsmoker Start:27-Feb-2017 Instruction Type:Patient Education How to access health informa tion online - Detail Indication:Nonsmoker Start:27-Feb-2017 Instruction Type:Patient Education Patient Instructions Indication:Nonsmoker Start:27-Feb-2017 Instruction Type:Provider Instructions for Treatment How to access health informa tion online Indication:Nonsmoker Start:05-Dec-2016 Instruction Type:Patient Education How to access health informa tion online - Detail Indication:Nonsmoker Start:05-Dec-2016 Instruction Type:Patient Education Patient Instructions Indication:Nonsmoker Start:05-Dec-2016 Instruction Type:Provider Instructions for Treatment How to access health informa tion online Indication:Nonsmoker Start:07-Nov-2016 Instruction Type:Patient Education How to access health informa tion online - Detail Indication:Nonsmoker Start:07-Nov-2016 Instruction Type:Patient Education Patient Instructions Indication:Nonsmoker Start:07-Nov-2016 Instruction Type:Provider Instructions for Treatment How to access health informa tion online Indication:Nonsmoker Start:15-Oct-2016 Instruction Type:Patient Education How to access health informa tion online Indication:BMI 45.0-49.9, adult Start:06-Aug-2016 Instruction Type:Patient Education How to access health informa tion online - Detail Indication:BMI 45.0-49.9, adult Start:06-Aug-2016 Instruction Type:Patient Education Patient Instructions Indication:BMI 45.0-49.9, adult Start:06-Aug-2016 Instruction Type:Provider Instructions for Treatment Patient Instructions Indication:Abnormal glucose tolerance test (Renamed from Abnormal glucose tolerance test (GTT)) Start:16-May-2016 Instruction Type:Provider Instructions for Treatment DISCONTINUED - HGB A1C (8303 6) Indication:Abnormal glucose tolerance test (Renamed from Abnormal glucose tolerance test (GTT)) Start:16-May-2016 Instruction Type:Patient Education How to access health informa tion online Indication:BMI 45.0-49.9, adult Start:20-Apr-2016 Instruction Type:Patient Education How to access health informa tion online - Detail Indication:BMI 45.0-49.9, adult Start:20-Apr-2016 Instruction Type:Patient Education Patient Instructions Indication:BMI 45.0-49.9, adult Start:20-Apr-2016 Instruction Type:Provider Instructions for Treatment How to access health informa tion online Indication:Nonsmoker Start:02-Apr-2016 Instruction Type:Patient Education How to access health informa tion online - Detail Indication:Nonsmoker Start:02-Apr-2016 Instruction Type:Patient Education Patient Instructions Indication:Nonsmoker Start:02-Apr-2016 Instruction Type:Provider Instructions for Treatment How to access health informa tion online - Detail Indication:Nonsmoker Start:28-Mar-2016 Instruction Type:Patient Education How to access health informa tion online Indication:Nonsmoker Start:28-Mar-2016 Instruction Type:Patient Education Patient Instructions Indication:Nonsmoker Start:28-Mar-2016 Instruction Type:Provider Instructions for Treatment Patient Instructions Indication:Vitamin D deficiency Start:14-Sep-2015 Instruction Type:Provider Instructions for Treatment How to access health informa tion online Indication:Rheumatoid arthritis Start:17-Aug-2015 Instruction Type:Patient Education How to access health informa tion online - Detail Indication:Rheumatoid arthritis Start:17-Aug-2015 Instruction Type:Patient Education Patient Instructions Indication:Rheumatoid arthritis Start:17-Aug-2015 Instruction Type:Provider Instructions for Treatment How to access health informa tion online Indication:Itching Start:23-Mar-2015 Instruction Type:Patient Education How to access health informa tion online - Detail Indication:Itching Start:23-Mar-2015 Instruction Type:Patient Education Patient Instructions Indication:Itching Start:23-Mar-2015 Instruction Type:Provider Instructions for Treatment How to access health informa tion online Indication:Neck pain Start:07-Feb-2015 Instruction Type:Patient Education How to access health informa tion online - Detail Indication:Neck pain Start:07-Feb-2015 Instruction Type:Patient Education Patient Instructions Indication:Neck pain Start:07-Feb-2015 Instruction Type:Provider Instructions for Treatment Patient Instructions Indication:Hypertension Start:07-Jun-2014 Instruction Type:Provider Instructions for Treatment How to access health informa tion online Indication:Hypertension Start:18-Jan-2014 Instruction Type:Patient Education How to access health informa tion online - Detail Indication:Hypertension Start:18-Jan-2014 Instruction Type:Patient Education Patient Instructions Indication:Hypertension Start:18-Jan-2014 Instruction Type:Provider Instructions for Treatment Patient Instructions Indication:Low back pain potentially associated with radiculopathy Start:21-Sep-2013 Instruction Type:Provider Instructions for Treatment Patient Instructions Indication:Low back pain potentially associated with radiculopathy Start:24-Jun-2013 Instruction Type:Provider Instructions for Treatment Patient Instructions Indication:Other intervertebral disc degeneration, lumbar region Start:18-May-2013 Instruction Type:Provider Instructions for Treatment Patient Instructions Indication:Radiculopathy of leg Start:24-Apr-2013 Instruction Type:Provider Instructions for Treatment Patient Instructions Indication:Hypertension Start:07-Jan-2013 Instruction Type:Provider Instructions for Treatment Patient Instructions Indication:Knee pain, left Start:23-Sep-2012 Instruction Type:Provider Instructions for Treatment Patient Instructions Indication:Eczema Start:03-Apr-2012 Instruction Type:Provider Instructions for Treatment Patient Instructions Indication:Allergic rhinitis Start:03-Mar-2012 Instruction Type:Provider Instructions for Treatment Patient Instructions Indication:Hypertension Start:31-Oct-2011 Instruction Type:Provider Instructions for Treatment Name Dates Details Patient Instructions Indication:BMI 45.0-49.9, adult Start:13-Apr-2020 Instruction Type:Provider Instructions for Treatment How to Access Health Informa tion Online using Patient Portal and [employer]rd [employer] Apps Indication:BMI 45.0-49.9, adult Start:13-Apr-2020 Instruction Type:Patient Education How to Access Health Informa tion Online using Patient Portal and [employer]rd [employer] Apps Indication:Nonsmoker Start:25-Feb-2020 Instruction Type:Patient Education Patient Instructions Indication:Nonsmoker Start:25-Feb-2020 Instruction Type:Provider Instructions for Treatment How to access health informa tion online Indication:Nonsmoker Start:02-Dec-2019 Instruction Type:Patient Education How to access health informa tion online - Detail Indication:Nonsmoker Start:02-Dec-2019 Instruction Type:Patient Education Patient Instructions Indication:Nonsmoker Start:02-Dec-2019 Instruction Type:Provider Instructions for Treatment How to access health informa tion online Indication:Abnormal glucose tolerance test (Renamed from Abnormal glucose tolerance test (GTT)) Start:29-Jul-2019 Instruction Type:Patient Education How to access health informa tion online - Detail Indication:Abnormal glucose tolerance test (Renamed from Abnormal glucose tolerance test (GTT)) Start:29-Jul-2019 Instruction Type:Patient Education Patient Instructions Indication:Abnormal glucose tolerance test (Renamed from Abnormal glucose tolerance test (GTT)) Start:29-Jul-2019 Instruction Type:Provider Instructions for Treatment How to access health informa tion online Indication:BMI 45.0-49.9, adult Start:25-Mar-2019 Instruction Type:Patient Education How to access health informa tion online - Detail Indication:BMI 45.0-49.9, adult Start:25-Mar-2019 Instruction Type:Patient Education Patient Instructions Indication:BMI 45.0-49.9, adult Start:25-Mar-2019 Instruction Type:Provider Instructions for Treatment How to access health informa tion online Indication:Nonsmoker Start:19-Nov-2018 Instruction Type:Patient Education How to access health informa tion online - Detail Indication:Nonsmoker Start:19-Nov-2018 Instruction Type:Patient Education Patient Instructions Indication:Nonsmoker Start:19-Nov-2018 Instruction Type:Provider Instructions for Treatment How to access health informa tion online Indication:Leg swelling Start:29-Oct-2018 Instruction Type:Patient Education How to access health informa tion online - Detail Indication:Leg swelling Start:29-Oct-2018 Instruction Type:Patient Education Patient Instructions Indication:Leg swelling Start:29-Oct-2018 Instruction Type:Provider Instructions for Treatment How to access health informa tion online Indication:BMI 40.0-44.9, adult Start:21-Aug-2018 Instruction Type:Patient Education How to access health informa tion online - Detail Indication:BMI 40.0-44.9, adult Start:21-Aug-2018 Instruction Type:Patient Education Patient Instructions Indication:BMI 40.0-44.9, adult Start:21-Aug-2018 Instruction Type:Provider Instructions for Treatment How to access health informa tion online Indication:BMI 40.0-44.9, adult Start:13-Aug-2018 Instruction Type:Patient Education How to access health informa tion online - Detail Indication:BMI 40.0-44.9, adult Start:13-Aug-2018 Instruction Type:Patient Education Patient Instructions Indication:BMI 40.0-44.9, adult Start:13-Aug-2018 Instruction Type:Provider Instructions for Treatment How to access health informa tion online Indication:BMI 40.0-44.9, adult Start:21-May-2018 Instruction Type:Patient Education How to access health informa tion online - Detail Indication:BMI 40.0-44.9, adult Start:21-May-2018 Instruction Type:Patient Education Patient Instructions Indication:BMI 40.0-44.9, adult Start:21-May-2018 Instruction Type:Provider Instructions for Treatment How to access health informa tion online Indication:Nonsmoker Start:23-Apr-2018 Instruction Type:Patient Education How to access health informa tion online - Detail Indication:Nonsmoker Start:23-Apr-2018 Instruction Type:Patient Education Patient Instructions Indication:Nonsmoker Start:23-Apr-2018 Instruction Type:Provider Instructions for Treatment How to access health informa tion online Indication:BMI 40.0-44.9, adult Start:09-Apr-2018 Instruction Type:Patient Education How to access health informa tion online - Detail Indication:BMI 40.0-44.9, adult Start:09-Apr-2018 Instruction Type:Patient Education Patient Instructions Indication:BMI 40.0-44.9, adult Start:09-Apr-2018 Instruction Type:Provider Instructions for Treatment How to access health informa tion online Indication:Nonsmoker Start:12-Mar-2018 Instruction Type:Patient Education How to access health informa tion online - Detail Indication:Nonsmoker Start:12-Mar-2018 Instruction Type:Patient Education Patient Instructions Indication:Nonsmoker Start:12-Mar-2018 Instruction Type:Provider Instructions for Treatment How to access health informa tion online Indication:Nonsmoker Start:05-Mar-2018 Instruction Type:Patient Education How to access health informa tion online - Detail Indication:Nonsmoker Start:05-Mar-2018 Instruction Type:Patient Education Patient Instructions Indication:Nonsmoker Start:05-Mar-2018 Instruction Type:Provider Instructions for Treatment How to access health informa tion online Indication:Nonsmoker Start:12-Feb-2018 Instruction Type:Patient Education How to access health informa tion online - Detail Indication:Nonsmoker Start:12-Feb-2018 Instruction Type:Patient Education Patient Instructions Indication:Nonsmoker Start:12-Feb-2018 Instruction Type:Provider Instructions for Treatment How to access health informa tion online Indication:Nonsmoker Start:06-Nov-2017 Instruction Type:Patient Education How to access health informa tion online - Detail Indication:Nonsmoker Start:06-Nov-2017 Instruction Type:Patient Education How to access health informa tion online Indication:Nonsmoker Start:09-Oct-2017 Instruction Type:Patient Education How to access health informa tion online - Detail Indication:Nonsmoker Start:09-Oct-2017 Instruction Type:Patient Education Patient Instructions Indication:Nonsmoker Start:09-Oct-2017 Instruction Type:Provider Instructions for Treatment How to access health informa tion online Indication:Nonsmoker Start:02-Oct-2017 Instruction Type:Patient Education How to access health informa tion online - Detail Indication:Nonsmoker Start:02-Oct-2017 Instruction Type:Patient Education Patient Instructions Indication:Nonsmoker Start:02-Oct-2017 Instruction Type:Provider Instructions for Treatment How to access health informa tion online Indication:Nonsmoker Start:25-Sep-2017 Instruction Type:Patient Education How to access health informa tion online - Detail Indication:Nonsmoker Start:25-Sep-2017 Instruction Type:Patient Education Patient Instructions Indication:Nonsmoker Start:25-Sep-2017 Instruction Type:Provider Instructions for Treatment How to access health informa tion online Indication:Abnormal glucose tolerance test (Renamed from Abnormal glucose tolerance test (GTT)) Start:03-Jul-2017 Instruction Type:Patient Education How to access health informa tion online - Detail Indication:Abnormal glucose tolerance test (Renamed from Abnormal glucose tolerance test (GTT)) Start:03-Jul-2017 Instruction Type:Patient Education Patient Instructions Indication:Abnormal glucose tolerance test (Renamed from Abnormal glucose tolerance test (GTT)) Start:03-Jul-2017 Instruction Type:Provider Instructions for Treatment How to access health informa tion online Indication:Nonsmoker Start:27-Feb-2017 Instruction Type:Patient Education How to access health informa tion online - Detail Indication:Nonsmoker Start:27-Feb-2017 Instruction Type:Patient Education Patient Instructions Indication:Nonsmoker Start:27-Feb-2017 Instruction Type:Provider Instructions for Treatment How to access health informa tion online Indication:Nonsmoker Start:05-Dec-2016 Instruction Type:Patient Education How to access health informa tion online - Detail Indication:Nonsmoker Start:05-Dec-2016 Instruction Type:Patient Education Patient Instructions Indication:Nonsmoker Start:05-Dec-2016 Instruction Type:Provider Instructions for Treatment How to access health informa tion online Indication:Nonsmoker Start:07-Nov-2016 Instruction Type:Patient Education How to access health informa tion online - Detail Indication:Nonsmoker Start:07-Nov-2016 Instruction Type:Patient Education Patient Instructions Indication:Nonsmoker Start:07-Nov-2016 Instruction Type:Provider Instructions for Treatment How to access health informa tion online Indication:Nonsmoker Start:15-Oct-2016 Instruction Type:Patient Education How to access health informa tion online Indication:BMI 45.0-49.9, adult Start:06-Aug-2016 Instruction Type:Patient Education How to access health informa tion online - Detail Indication:BMI 45.0-49.9, adult Start:06-Aug-2016 Instruction Type:Patient Education Patient Instructions Indication:BMI 45.0-49.9, adult Start:06-Aug-2016 Instruction Type:Provider Instructions for Treatment Patient Instructions Indication:Abnormal glucose tolerance test (Renamed from Abnormal glucose tolerance test (GTT)) Start:16-May-2016 Instruction Type:Provider Instructions for Treatment DISCONTINUED - HGB A1C (8303 6) Indication:Abnormal glucose tolerance test (Renamed from Abnormal glucose tolerance test (GTT)) Start:16-May-2016 Instruction Type:Patient Education How to access health informa tion online Indication:BMI 45.0-49.9, adult Start:20-Apr-2016 Instruction Type:Patient Education How to access health informa tion online - Detail Indication:BMI 45.0-49.9, adult Start:20-Apr-2016 Instruction Type:Patient Education Patient Instructions Indication:BMI 45.0-49.9, adult Start:20-Apr-2016 Instruction Type:Provider Instructions for Treatment How to access health informa tion online Indication:Nonsmoker Start:02-Apr-2016 Instruction Type:Patient Education How to access health informa tion online - Detail Indication:Nonsmoker Start:02-Apr-2016 Instruction Type:Patient Education Patient Instructions Indication:Nonsmoker Start:02-Apr-2016 Instruction Type:Provider Instructions for Treatment How to access health informa tion online - Detail Indication:Nonsmoker Start:28-Mar-2016 Instruction Type:Patient Education How to access health informa tion online Indication:Nonsmoker Start:28-Mar-2016 Instruction Type:Patient Education Patient Instructions Indication:Nonsmoker Start:28-Mar-2016 Instruction Type:Provider Instructions for Treatment Patient Instructions Indication:Vitamin D deficiency Start:14-Sep-2015 Instruction Type:Provider Instructions for Treatment How to access health informa tion online Indication:Rheumatoid arthritis Start:17-Aug-2015 Instruction Type:Patient Education How to access health informa tion online - Detail Indication:Rheumatoid arthritis Start:17-Aug-2015 Instruction Type:Patient Education Patient Instructions Indication:Rheumatoid arthritis Start:17-Aug-2015 Instruction Type:Provider Instructions for Treatment How to access health informa tion online Indication:Itching Start:23-Mar-2015 Instruction Type:Patient Education How to access health informa tion online - Detail Indication:Itching Start:23-Mar-2015 Instruction Type:Patient Education Patient Instructions Indication:Itching Start:23-Mar-2015 Instruction Type:Provider Instructions for Treatment How to access health informa tion online Indication:Neck pain Start:07-Feb-2015 Instruction Type:Patient Education How to access health informa tion online - Detail Indication:Neck pain Start:07-Feb-2015 Instruction Type:Patient Education Patient Instructions Indication:Neck pain Start:07-Feb-2015 Instruction Type:Provider Instructions for Treatment Patient Instructions Indication:Hypertension Start:07-Jun-2014 Instruction Type:Provider Instructions for Treatment How to access health informa tion online Indication:Hypertension Start:18-Jan-2014 Instruction Type:Patient Education How to access health informa tion online - Detail Indication:Hypertension Start:18-Jan-2014 Instruction Type:Patient Education Patient Instructions Indication:Hypertension Start:18-Jan-2014 Instruction Type:Provider Instructions for Treatment Patient Instructions Indication:Low back pain potentially associated with radiculopathy Start:21-Sep-2013 Instruction Type:Provider Instructions for Treatment Patient Instructions Indication:Low back pain potentially associated with radiculopathy Start:24-Jun-2013 Instruction Type:Provider Instructions for Treatment Patient Instructions Indication:Other intervertebral disc degeneration, lumbar region Start:18-May-2013 Instruction Type:Provider Instructions for Treatment Patient Instructions Indication:Radiculopathy of leg Start:24-Apr-2013 Instruction Type:Provider Instructions for Treatment Patient Instructions Indication:Hypertension Start:07-Jan-2013 Instruction Type:Provider Instructions for Treatment Patient Instructions Indication:Knee pain, left Start:23-Sep-2012 Instruction Type:Provider Instructions for Treatment Patient Instructions Indication:Eczema Start:03-Apr-2012 Instruction Type:Provider Instructions for Treatment Patient Instructions Indication:Allergic rhinitis Start:03-Mar-2012 Instruction Type:Provider Instructions for Treatment Patient Instructions Indication:Hypertension Start:31-Oct-2011 Instruction Type:Provider Instructions for Treatment Name Dates Details Patient Instructions Indication:BMI 45.0-49.9, adult Start:25-May-2020 Instruction Type:Provider Instructions for Treatment How to Access Health Informa tion Online using Patient Portal and [employer]rd [employer] Apps Indication:BMI 45.0-49.9, adult Start:25-May-2020 Instruction Type:Patient Education Patient Instructions Indication:BMI 45.0-49.9, adult Start:13-Apr-2020 Instruction Type:Provider Instructions for Treatment How to Access Health Informa tion Online using Patient Portal and [employer] Apps Indication:BMI 45.0-49.9, adult Start:13-Apr-2020 Instruction Type:Patient Education How to Access Health Informa tion Online using Patient Portal and [employer] Apps Indication:Nonsmoker Start:25-Feb-2020 Instruction Type:Patient Education Patient Instructions Indication:Nonsmoker Start:25-Feb-2020 Instruction Type:Provider Instructions for Treatment How to access health informa tion online Indication:Nonsmoker Start:02-Dec-2019 Instruction Type:Patient Education How to access health informa tion online - Detail Indication:Nonsmoker Start:02-Dec-2019 Instruction Type:Patient Education Patient Instructions Indication:Nonsmoker Start:02-Dec-2019 Instruction Type:Provider Instructions for Treatment How to access health informa tion online Indication:Abnormal glucose tolerance test (Renamed from Abnormal glucose tolerance test (GTT)) Start:29-Jul-2019 Instruction Type:Patient Education How to access health informa tion online - Detail Indication:Abnormal glucose tolerance test (Renamed from Abnormal glucose tolerance test (GTT)) Start:29-Jul-2019 Instruction Type:Patient Education Patient Instructions Indication:Abnormal glucose tolerance test (Renamed from Abnormal glucose tolerance test (GTT)) Start:29-Jul-2019 Instruction Type:Provider Instructions for Treatment How to access health informa tion online Indication:BMI 45.0-49.9, adult Start:25-Mar-2019 Instruction Type:Patient Education How to access health informa tion online - Detail Indication:BMI 45.0-49.9, adult Start:25-Mar-2019 Instruction Type:Patient Education Patient Instructions Indication:BMI 45.0-49.9, adult Start:25-Mar-2019 Instruction Type:Provider Instructions for Treatment How to access health informa tion online Indication:Nonsmoker Start:19-Nov-2018 Instruction Type:Patient Education How to access health informa tion online - Detail Indication:Nonsmoker Start:19-Nov-2018 Instruction Type:Patient Education Patient Instructions Indication:Nonsmoker Start:19-Nov-2018 Instruction Type:Provider Instructions for Treatment How to access health informa tion online Indication:Leg swelling Start:29-Oct-2018 Instruction Type:Patient Education How to access health informa tion online - Detail Indication:Leg swelling Start:29-Oct-2018 Instruction Type:Patient Education Patient Instructions Indication:Leg swelling Start:29-Oct-2018 Instruction Type:Provider Instructions for Treatment How to access health informa tion online Indication:BMI 40.0-44.9, adult Start:21-Aug-2018 Instruction Type:Patient Education How to access health informa tion online - Detail Indication:BMI 40.0-44.9, adult Start:21-Aug-2018 Instruction Type:Patient Education Patient Instructions Indication:BMI 40.0-44.9, adult Start:21-Aug-2018 Instruction Type:Provider Instructions for Treatment How to access health informa tion online Indication:BMI 40.0-44.9, adult Start:13-Aug-2018 Instruction Type:Patient Education How to access health informa tion online - Detail Indication:BMI 40.0-44.9, adult Start:13-Aug-2018 Instruction Type:Patient Education Patient Instructions Indication:BMI 40.0-44.9, adult Start:13-Aug-2018 Instruction Type:Provider Instructions for Treatment How to access health informa tion online Indication:BMI 40.0-44.9, adult Start:21-May-2018 Instruction Type:Patient Education How to access health informa tion online - Detail Indication:BMI 40.0-44.9, adult Start:21-May-2018 Instruction Type:Patient Education Patient Instructions Indication:BMI 40.0-44.9, adult Start:21-May-2018 Instruction Type:Provider Instructions for Treatment How to access health informa tion online Indication:Nonsmoker Start:23-Apr-2018 Instruction Type:Patient Education How to access health informa tion online - Detail Indication:Nonsmoker Start:23-Apr-2018 Instruction Type:Patient Education Patient Instructions Indication:Nonsmoker Start:23-Apr-2018 Instruction Type:Provider Instructions for Treatment How to access health informa tion online Indication:BMI 40.0-44.9, adult Start:09-Apr-2018 Instruction Type:Patient Education How to access health informa tion online - Detail Indication:BMI 40.0-44.9, adult Start:09-Apr-2018 Instruction Type:Patient Education Patient Instructions Indication:BMI 40.0-44.9, adult Start:09-Apr-2018 Instruction Type:Provider Instructions for Treatment How to access health informa tion online Indication:Nonsmoker Start:12-Mar-2018 Instruction Type:Patient Education How to access health informa tion online - Detail Indication:Nonsmoker Start:12-Mar-2018 Instruction Type:Patient Education Patient Instructions Indication:Nonsmoker Start:12-Mar-2018 Instruction Type:Provider Instructions for Treatment How to access health informa tion online Indication:Nonsmoker Start:05-Mar-2018 Instruction Type:Patient Education How to access health informa tion online - Detail Indication:Nonsmoker Start:05-Mar-2018 Instruction Type:Patient Education Patient Instructions Indication:Nonsmoker Start:05-Mar-2018 Instruction Type:Provider Instructions for Treatment How to access health informa tion online Indication:Nonsmoker Start:12-Feb-2018 Instruction Type:Patient Education How to access health informa tion online - Detail Indication:Nonsmoker Start:12-Feb-2018 Instruction Type:Patient Education Patient Instructions Indication:Nonsmoker Start:12-Feb-2018 Instruction Type:Provider Instructions for Treatment How to access health informa tion online Indication:Nonsmoker Start:06-Nov-2017 Instruction Type:Patient Education How to access health informa tion online - Detail Indication:Nonsmoker Start:06-Nov-2017 Instruction Type:Patient Education How to access health informa tion online Indication:Nonsmoker Start:09-Oct-2017 Instruction Type:Patient Education How to access health informa tion online - Detail Indication:Nonsmoker Start:09-Oct-2017 Instruction Type:Patient Education Patient Instructions Indication:Nonsmoker Start:09-Oct-2017 Instruction Type:Provider Instructions for Treatment How to access health informa tion online Indication:Nonsmoker Start:02-Oct-2017 Instruction Type:Patient Education How to access health informa tion online - Detail Indication:Nonsmoker Start:02-Oct-2017 Instruction Type:Patient Education Patient Instructions Indication:Nonsmoker Start:02-Oct-2017 Instruction Type:Provider Instructions for Treatment How to access health informa tion online Indication:Nonsmoker Start:25-Sep-2017 Instruction Type:Patient Education How to access health informa tion online - Detail Indication:Nonsmoker Start:25-Sep-2017 Instruction Type:Patient Education Patient Instructions Indication:Nonsmoker Start:25-Sep-2017 Instruction Type:Provider Instructions for Treatment How to access health informa tion online Indication:Abnormal glucose tolerance test (Renamed from Abnormal glucose tolerance test (GTT)) Start:03-Jul-2017 Instruction Type:Patient Education How to access health informa tion online - Detail Indication:Abnormal glucose tolerance test (Renamed from Abnormal glucose tolerance test (GTT)) Start:03-Jul-2017 Instruction Type:Patient Education Patient Instructions Indication:Abnormal glucose tolerance test (Renamed from Abnormal glucose tolerance test (GTT)) Start:03-Jul-2017 Instruction Type:Provider Instructions for Treatment How to access health informa tion online Indication:Nonsmoker Start:27-Feb-2017 Instruction Type:Patient Education How to access health informa tion online - Detail Indication:Nonsmoker Start:27-Feb-2017 Instruction Type:Patient Education Patient Instructions Indication:Nonsmoker Start:27-Feb-2017 Instruction Type:Provider Instructions for Treatment How to access health informa tion online Indication:Nonsmoker Start:05-Dec-2016 Instruction Type:Patient Education How to access health informa tion online - Detail Indication:Nonsmoker Start:05-Dec-2016 Instruction Type:Patient Education Patient Instructions Indication:Nonsmoker Start:05-Dec-2016 Instruction Type:Provider Instructions for Treatment How to access health informa tion online Indication:Nonsmoker Start:07-Nov-2016 Instruction Type:Patient Education How to access health informa tion online - Detail Indication:Nonsmoker Start:07-Nov-2016 Instruction Type:Patient Education Patient Instructions Indication:Nonsmoker Start:07-Nov-2016 Instruction Type:Provider Instructions for Treatment How to access health informa tion online Indication:Nonsmoker Start:15-Oct-2016 Instruction Type:Patient Education How to access health informa tion online Indication:BMI 45.0-49.9, adult Start:06-Aug-2016 Instruction Type:Patient Education How to access health informa tion online - Detail Indication:BMI 45.0-49.9, adult Start:06-Aug-2016 Instruction Type:Patient Education Patient Instructions Indication:BMI 45.0-49.9, adult Start:06-Aug-2016 Instruction Type:Provider Instructions for Treatment Patient Instructions Indication:Abnormal glucose tolerance test (Renamed from Abnormal glucose tolerance test (GTT)) Start:16-May-2016 Instruction Type:Provider Instructions for Treatment DISCONTINUED - HGB A1C (8303 6) Indication:Abnormal glucose tolerance test (Renamed from Abnormal glucose tolerance test (GTT)) Start:16-May-2016 Instruction Type:Patient Education How to access health informa tion online Indication:BMI 45.0-49.9, adult Start:20-Apr-2016 Instruction Type:Patient Education How to access health informa tion online - Detail Indication:BMI 45.0-49.9, adult Start:20-Apr-2016 Instruction Type:Patient Education Patient Instructions Indication:BMI 45.0-49.9, adult Start:20-Apr-2016 Instruction Type:Provider Instructions for Treatment How to access health informa tion online Indication:Nonsmoker Start:02-Apr-2016 Instruction Type:Patient Education How to access health informa tion online - Detail Indication:Nonsmoker Start:02-Apr-2016 Instruction Type:Patient Education Patient Instructions Indication:Nonsmoker Start:02-Apr-2016 Instruction Type:Provider Instructions for Treatment How to access health informa tion online - Detail Indication:Nonsmoker Start:28-Mar-2016 Instruction Type:Patient Education How to access health informa tion online Indication:Nonsmoker Start:28-Mar-2016 Instruction Type:Patient Education Patient Instructions Indication:Nonsmoker Start:28-Mar-2016 Instruction Type:Provider Instructions for Treatment Patient Instructions Indication:Vitamin D deficiency Start:14-Sep-2015 Instruction Type:Provider Instructions for Treatment How to access health informa tion online Indication:Rheumatoid arthritis Start:17-Aug-2015 Instruction Type:Patient Education How to access health informa tion online - Detail Indication:Rheumatoid arthritis Start:17-Aug-2015 Instruction Type:Patient Education Patient Instructions Indication:Rheumatoid arthritis Start:17-Aug-2015 Instruction Type:Provider Instructions for Treatment How to access health informa tion online Indication:Itching Start:23-Mar-2015 Instruction Type:Patient Education How to access health informa tion online - Detail Indication:Itching Start:23-Mar-2015 Instruction Type:Patient Education Patient Instructions Indication:Itching Start:23-Mar-2015 Instruction Type:Provider Instructions for Treatment How to access health informa tion online Indication:Neck pain Start:07-Feb-2015 Instruction Type:Patient Education How to access health informa tion online - Detail Indication:Neck pain Start:07-Feb-2015 Instruction Type:Patient Education Patient Instructions Indication:Neck pain Start:07-Feb-2015 Instruction Type:Provider Instructions for Treatment Patient Instructions Indication:Hypertension Start:07-Jun-2014 Instruction Type:Provider Instructions for Treatment How to access health informa tion online Indication:Hypertension Start:18-Jan-2014 Instruction Type:Patient Education How to access health informa tion online - Detail Indication:Hypertension Start:18-Jan-2014 Instruction Type:Patient Education Patient Instructions Indication:Hypertension Start:18-Jan-2014 Instruction Type:Provider Instructions for Treatment Patient Instructions Indication:Low back pain potentially associated with radiculopathy Start:21-Sep-2013 Instruction Type:Provider Instructions for Treatment Patient Instructions Indication:Low back pain potentially associated with radiculopathy Start:24-Jun-2013 Instruction Type:Provider Instructions for Treatment Patient Instructions Indication:Other intervertebral disc degeneration, lumbar region Start:18-May-2013 Instruction Type:Provider Instructions for Treatment Patient Instructions Indication:Radiculopathy of leg Start:24-Apr-2013 Instruction Type:Provider Instructions for Treatment Patient Instructions Indication:Hypertension Start:07-Jan-2013 Instruction Type:Provider Instructions for Treatment Patient Instructions Indication:Knee pain, left Start:23-Sep-2012 Instruction Type:Provider Instructions for Treatment Patient Instructions Indication:Eczema Start:03-Apr-2012 Instruction Type:Provider Instructions for Treatment Patient Instructions Indication:Allergic rhinitis Start:03-Mar-2012 Instruction Type:Provider Instructions for Treatment Patient Instructions Indication:Hypertension Start:31-Oct-2011 Instruction Type:Provider Instructions for Treatment Name Dates Details Patient Instructions Indication:BMI 45.0-49.9, adult Start:25-May-2020 Instruction Type:Provider Instructions for Treatment How to Access Health Informa tion Online using Patient Portal and [employer]rd [employer] Apps Indication:BMI 45.0-49.9, adult Start:25-May-2020 Instruction Type:Patient Education Patient Instructions Indication:BMI 45.0-49.9, adult Start:13-Apr-2020 Instruction Type:Provider Instructions for Treatment How to Access Health Informa tion Online using Patient Portal and [employer]rd [employer] Apps Indication:BMI 45.0-49.9, adult Start:13-Apr-2020 Instruction Type:Patient Education How to Access Health Informa tion Online using Patient Portal and [employer]rd [employer] Apps Indication:Nonsmoker Start:25-Feb-2020 Instruction Type:Patient Education Patient Instructions Indication:Nonsmoker Start:25-Feb-2020 Instruction Type:Provider Instructions for Treatment How to access health informa tion online Indication:Nonsmoker Start:02-Dec-2019 Instruction Type:Patient Education How to access health informa tion online - Detail Indication:Nonsmoker Start:02-Dec-2019 Instruction Type:Patient Education Patient Instructions Indication:Nonsmoker Start:02-Dec-2019 Instruction Type:Provider Instructions for Treatment How to access health informa tion online Indication:Abnormal glucose tolerance test (Renamed from Abnormal glucose tolerance test (GTT)) Start:29-Jul-2019 Instruction Type:Patient Education How to access health informa tion online - Detail Indication:Abnormal glucose tolerance test (Renamed from Abnormal glucose tolerance test (GTT)) Start:29-Jul-2019 Instruction Type:Patient Education Patient Instructions Indication:Abnormal glucose tolerance test (Renamed from Abnormal glucose tolerance test (GTT)) Start:29-Jul-2019 Instruction Type:Provider Instructions for Treatment How to access health informa tion online Indication:BMI 45.0-49.9, adult Start:25-Mar-2019 Instruction Type:Patient Education How to access health informa tion online - Detail Indication:BMI 45.0-49.9, adult Start:25-Mar-2019 Instruction Type:Patient Education Patient Instructions Indication:BMI 45.0-49.9, adult Start:25-Mar-2019 Instruction Type:Provider Instructions for Treatment How to access health informa tion online Indication:Nonsmoker Start:19-Nov-2018 Instruction Type:Patient Education How to access health informa tion online - Detail Indication:Nonsmoker Start:19-Nov-2018 Instruction Type:Patient Education Patient Instructions Indication:Nonsmoker Start:19-Nov-2018 Instruction Type:Provider Instructions for Treatment How to access health informa tion online Indication:Leg swelling Start:29-Oct-2018 Instruction Type:Patient Education How to access health informa tion online - Detail Indication:Leg swelling Start:29-Oct-2018 Instruction Type:Patient Education Patient Instructions Indication:Leg swelling Start:29-Oct-2018 Instruction Type:Provider Instructions for Treatment How to access health informa tion online Indication:BMI 40.0-44.9, adult Start:21-Aug-2018 Instruction Type:Patient Education How to access health informa tion online - Detail Indication:BMI 40.0-44.9, adult Start:21-Aug-2018 Instruction Type:Patient Education Patient Instructions Indication:BMI 40.0-44.9, adult Start:21-Aug-2018 Instruction Type:Provider Instructions for Treatment How to access health informa tion online Indication:BMI 40.0-44.9, adult Start:13-Aug-2018 Instruction Type:Patient Education How to access health informa tion online - Detail Indication:BMI 40.0-44.9, adult Start:13-Aug-2018 Instruction Type:Patient Education Patient Instructions Indication:BMI 40.0-44.9, adult Start:13-Aug-2018 Instruction Type:Provider Instructions for Treatment How to access health informa tion online Indication:BMI 40.0-44.9, adult Start:21-May-2018 Instruction Type:Patient Education How to access health informa tion online - Detail Indication:BMI 40.0-44.9, adult Start:21-May-2018 Instruction Type:Patient Education Patient Instructions Indication:BMI 40.0-44.9, adult Start:21-May-2018 Instruction Type:Provider Instructions for Treatment How to access health informa tion online Indication:Nonsmoker Start:23-Apr-2018 Instruction Type:Patient Education How to access health informa tion online - Detail Indication:Nonsmoker Start:23-Apr-2018 Instruction Type:Patient Education Patient Instructions Indication:Nonsmoker Start:23-Apr-2018 Instruction Type:Provider Instructions for Treatment How to access health informa tion online Indication:BMI 40.0-44.9, adult Start:09-Apr-2018 Instruction Type:Patient Education How to access health informa tion online - Detail Indication:BMI 40.0-44.9, adult Start:09-Apr-2018 Instruction Type:Patient Education Patient Instructions Indication:BMI 40.0-44.9, adult Start:09-Apr-2018 Instruction Type:Provider Instructions for Treatment How to access health informa tion online Indication:Nonsmoker Start:12-Mar-2018 Instruction Type:Patient Education How to access health informa tion online - Detail Indication:Nonsmoker Start:12-Mar-2018 Instruction Type:Patient Education Patient Instructions Indication:Nonsmoker Start:12-Mar-2018 Instruction Type:Provider Instructions for Treatment How to access health informa tion online Indication:Nonsmoker Start:05-Mar-2018 Instruction Type:Patient Education How to access health informa tion online - Detail Indication:Nonsmoker Start:05-Mar-2018 Instruction Type:Patient Education Patient Instructions Indication:Nonsmoker Start:05-Mar-2018 Instruction Type:Provider Instructions for Treatment How to access health informa tion online Indication:Nonsmoker Start:12-Feb-2018 Instruction Type:Patient Education How to access health informa tion online - Detail Indication:Nonsmoker Start:12-Feb-2018 Instruction Type:Patient Education Patient Instructions Indication:Nonsmoker Start:12-Feb-2018 Instruction Type:Provider Instructions for Treatment How to access health informa tion online Indication:Nonsmoker Start:06-Nov-2017 Instruction Type:Patient Education How to access health informa tion online - Detail Indication:Nonsmoker Start:06-Nov-2017 Instruction Type:Patient Education How to access health informa tion online Indication:Nonsmoker Start:09-Oct-2017 Instruction Type:Patient Education How to access health informa tion online - Detail Indication:Nonsmoker Start:09-Oct-2017 Instruction Type:Patient Education Patient Instructions Indication:Nonsmoker Start:09-Oct-2017 Instruction Type:Provider Instructions for Treatment How to access health informa tion online Indication:Nonsmoker Start:02-Oct-2017 Instruction Type:Patient Education How to access health informa tion online - Detail Indication:Nonsmoker Start:02-Oct-2017 Instruction Type:Patient Education Patient Instructions Indication:Nonsmoker Start:02-Oct-2017 Instruction Type:Provider Instructions for Treatment How to access health informa tion online Indication:Nonsmoker Start:25-Sep-2017 Instruction Type:Patient Education How to access health informa tion online - Detail Indication:Nonsmoker Start:25-Sep-2017 Instruction Type:Patient Education Patient Instructions Indication:Nonsmoker Start:25-Sep-2017 Instruction Type:Provider Instructions for Treatment How to access health informa tion online Indication:Abnormal glucose tolerance test (Renamed from Abnormal glucose tolerance test (GTT)) Start:03-Jul-2017 Instruction Type:Patient Education How to access health informa tion online - Detail Indication:Abnormal glucose tolerance test (Renamed from Abnormal glucose tolerance test (GTT)) Start:03-Jul-2017 Instruction Type:Patient Education Patient Instructions Indication:Abnormal glucose tolerance test (Renamed from Abnormal glucose tolerance test (GTT)) Start:03-Jul-2017 Instruction Type:Provider Instructions for Treatment How to access health informa tion online Indication:Nonsmoker Start:27-Feb-2017 Instruction Type:Patient Education How to access health informa tion online - Detail Indication:Nonsmoker Start:27-Feb-2017 Instruction Type:Patient Education Patient Instructions Indication:Nonsmoker Start:27-Feb-2017 Instruction Type:Provider Instructions for Treatment How to access health informa tion online Indication:Nonsmoker Start:05-Dec-2016 Instruction Type:Patient Education How to access health informa tion online - Detail Indication:Nonsmoker Start:05-Dec-2016 Instruction Type:Patient Education Patient Instructions Indication:Nonsmoker Start:05-Dec-2016 Instruction Type:Provider Instructions for Treatment How to access health informa tion online Indication:Nonsmoker Start:07-Nov-2016 Instruction Type:Patient Education How to access health informa tion online - Detail Indication:Nonsmoker Start:07-Nov-2016 Instruction Type:Patient Education Patient Instructions Indication:Nonsmoker Start:07-Nov-2016 Instruction Type:Provider Instructions for Treatment How to access health informa tion online Indication:Nonsmoker Start:15-Oct-2016 Instruction Type:Patient Education How to access health informa tion online Indication:BMI 45.0-49.9, adult Start:06-Aug-2016 Instruction Type:Patient Education How to access health informa tion online - Detail Indication:BMI 45.0-49.9, adult Start:06-Aug-2016 Instruction Type:Patient Education Patient Instructions Indication:BMI 45.0-49.9, adult Start:06-Aug-2016 Instruction Type:Provider Instructions for Treatment Patient Instructions Indication:Abnormal glucose tolerance test (Renamed from Abnormal glucose tolerance test (GTT)) Start:16-May-2016 Instruction Type:Provider Instructions for Treatment DISCONTINUED - HGB A1C ([id number]) Indication:Abnormal glucose tolerance test (Renamed from Abnormal glucose tolerance test (GTT)) Start:16-May-2016 Instruction Type:Patient Education How to access health informa tion online Indication:BMI 45.0-49.9, adult Start:20-Apr-2016 Instruction Type:Patient Education How to access health informa tion online - Detail Indication:BMI 45.0-49.9, adult Start:20-Apr-2016 Instruction Type:Patient Education Patient Instructions Indication:BMI 45.0-49.9, adult Start:20-Apr-2016 Instruction Type:Provider Instructions for Treatment How to access health informa tion online Indication:Nonsmoker Start:02-Apr-2016 Instruction Type:Patient Education How to access health informa tion online - Detail Indication:Nonsmoker Start:02-Apr-2016 Instruction Type:Patient Education Patient Instructions Indication:Nonsmoker Start:02-Apr-2016 Instruction Type:Provider Instructions for Treatment How to access health informa tion online - Detail Indication:Nonsmoker Start:28-Mar-2016 Instruction Type:Patient Education How to access health informa tion online Indication:Nonsmoker Start:28-Mar-2016 Instruction Type:Patient Education Patient Instructions Indication:Nonsmoker Start:28-Mar-2016 Instruction Type:Provider Instructions for Treatment Patient Instructions Indication:Vitamin D deficiency Start:14-Sep-2015 Instruction Type:Provider Instructions for Treatment How to access health informa tion online Indication:Rheumatoid arthritis Start:17-Aug-2015 Instruction Type:Patient Education How to access health informa tion online - Detail Indication:Rheumatoid arthritis Start:17-Aug-2015 Instruction Type:Patient Education Patient Instructions Indication:Rheumatoid arthritis Start:17-Aug-2015 Instruction Type:Provider Instructions for Treatment How to access health informa tion online Indication:Itching Start:23-Mar-2015 Instruction Type:Patient Education How to access health informa tion online - Detail Indication:Itching Start:23-Mar-2015 Instruction Type:Patient Education Patient Instructions Indication:Itching Start:23-Mar-2015 Instruction Type:Provider Instructions for Treatment How to access health informa tion online Indication:Neck pain Start:07-Feb-2015 Instruction Type:Patient Education How to access health informa tion online - Detail Indication:Neck pain Start:07-Feb-2015 Instruction Type:Patient Education Patient Instructions Indication:Neck pain Start:07-Feb-2015 Instruction Type:Provider Instructions for Treatment Patient Instructions Indication:Hypertension Start:07-Jun-2014 Instruction Type:Provider Instructions for Treatment How to access health informa tion online Indication:Hypertension Start:18-Jan-2014 Instruction Type:Patient Education How to access health informa tion online - Detail Indication:Hypertension Start:18-Jan-2014 Instruction Type:Patient Education Patient Instructions Indication:Hypertension Start:18-Jan-2014 Instruction Type:Provider Instructions for Treatment Patient Instructions Indication:Low back pain potentially associated with radiculopathy Start:21-Sep-2013 Instruction Type:Provider Instructions for Treatment Patient Instructions Indication:Low back pain potentially associated with radiculopathy Start:24-Jun-2013 Instruction Type:Provider Instructions for Treatment Patient Instructions Indication:Other intervertebral disc degeneration, lumbar region Start:18-May-2013 Instruction Type:Provider Instructions for Treatment Patient Instructions Indication:Radiculopathy of leg Start:24-Apr-2013 Instruction Type:Provider Instructions for Treatment Patient Instructions Indication:Hypertension Start:07-Jan-2013 Instruction Type:Provider Instructions for Treatment Patient Instructions Indication:Knee pain, left Start:23-Sep-2012 Instruction Type:Provider Instructions for Treatment Patient Instructions Indication:Eczema Start:03-Apr-2012 Instruction Type:Provider Instructions for Treatment Patient Instructions Indication:Allergic rhinitis Start:03-Mar-2012 Instruction Type:Provider Instructions for Treatment Patient Instructions Indication:Hypertension Start:31-Oct-2011 Instruction Type:Provider Instructions for Treatment Name Dates Details Patient Instructions Indication:BMI 45.0-49.9, adult Start:25-May-2020 Instruction Type:Provider Instructions for Treatment How to Access Health Informa tion Online using Patient Portal and [employer]rd [employer] Apps Indication:BMI 45.0-49.9, adult Start:25-May-2020 Instruction Type:Patient Education Patient Instructions Indication:BMI 45.0-49.9, adult Start:13-Apr-2020 Instruction Type:Provider Instructions for Treatment How to Access Health Informa tion Online using Patient Portal and [employer]rd [employer] Apps Indication:BMI 45.0-49.9, adult Start:13-Apr-2020 Instruction Type:Patient Education How to Access Health Informa tion Online using Patient Portal and [employer]rd [employer] Apps Indication:Nonsmoker Start:25-Feb-2020 Instruction Type:Patient Education Patient Instructions Indication:Nonsmoker Start:25-Feb-2020 Instruction Type:Provider Instructions for Treatment How to access health informa tion online Indication:Nonsmoker Start:02-Dec-2019 Instruction Type:Patient Education How to access health informa tion online - Detail Indication:Nonsmoker Start:02-Dec-2019 Instruction Type:Patient Education Patient Instructions Indication:Nonsmoker Start:02-Dec-2019 Instruction Type:Provider Instructions for Treatment How to access health informa tion online Indication:Abnormal glucose tolerance test (Renamed from Abnormal glucose tolerance test (GTT)) Start:29-Jul-2019 Instruction Type:Patient Education How to access health informa tion online - Detail Indication:Abnormal glucose tolerance test (Renamed from Abnormal glucose tolerance test (GTT)) Start:29-Jul-2019 Instruction Type:Patient Education Patient Instructions Indication:Abnormal glucose tolerance test (Renamed from Abnormal glucose tolerance test (GTT)) Start:29-Jul-2019 Instruction Type:Provider Instructions for Treatment How to access health informa tion online Indication:BMI 45.0-49.9, adult Start:25-Mar-2019 Instruction Type:Patient Education How to access health informa tion online - Detail Indication:BMI 45.0-49.9, adult Start:25-Mar-2019 Instruction Type:Patient Education Patient Instructions Indication:BMI 45.0-49.9, adult Start:25-Mar-2019 Instruction Type:Provider Instructions for Treatment How to access health informa tion online Indication:Nonsmoker Start:19-Nov-2018 Instruction Type:Patient Education How to access health informa tion online - Detail Indication:Nonsmoker Start:19-Nov-2018 Instruction Type:Patient Education Patient Instructions Indication:Nonsmoker Start:19-Nov-2018 Instruction Type:Provider Instructions for Treatment How to access health informa tion online Indication:Leg swelling Start:29-Oct-2018 Instruction Type:Patient Education How to access health informa tion online - Detail Indication:Leg swelling Start:29-Oct-2018 Instruction Type:Patient Education Patient Instructions Indication:Leg swelling Start:29-Oct-2018 Instruction Type:Provider Instructions for Treatment How to access health informa tion online Indication:BMI 40.0-44.9, adult Start:21-Aug-2018 Instruction Type:Patient Education How to access health informa tion online - Detail Indication:BMI 40.0-44.9, adult Start:21-Aug-2018 Instruction Type:Patient Education Patient Instructions Indication:BMI 40.0-44.9, adult Start:21-Aug-2018 Instruction Type:Provider Instructions for Treatment How to access health informa tion online Indication:BMI 40.0-44.9, adult Start:13-Aug-2018 Instruction Type:Patient Education How to access health informa tion online - Detail Indication:BMI 40.0-44.9, adult Start:13-Aug-2018 Instruction Type:Patient Education Patient Instructions Indication:BMI 40.0-44.9, adult Start:13-Aug-2018 Instruction Type:Provider Instructions for Treatment How to access health informa tion online Indication:BMI 40.0-44.9, adult Start:21-May-2018 Instruction Type:Patient Education How to access health informa tion online - Detail Indication:BMI 40.0-44.9, adult Start:21-May-2018 Instruction Type:Patient Education Patient Instructions Indication:BMI 40.0-44.9, adult Start:21-May-2018 Instruction Type:Provider Instructions for Treatment How to access health informa tion online Indication:Nonsmoker Start:23-Apr-2018 Instruction Type:Patient Education How to access health informa tion online - Detail Indication:Nonsmoker Start:23-Apr-2018 Instruction Type:Patient Education Patient Instructions Indication:Nonsmoker Start:23-Apr-2018 Instruction Type:Provider Instructions for Treatment How to access health informa tion online Indication:BMI 40.0-44.9, adult Start:09-Apr-2018 Instruction Type:Patient Education How to access health informa tion online - Detail Indication:BMI 40.0-44.9, adult Start:09-Apr-2018 Instruction Type:Patient Education Patient Instructions Indication:BMI 40.0-44.9, adult Start:09-Apr-2018 Instruction Type:Provider Instructions for Treatment How to access health informa tion online Indication:Nonsmoker Start:12-Mar-2018 Instruction Type:Patient Education How to access health informa tion online - Detail Indication:Nonsmoker Start:12-Mar-2018 Instruction Type:Patient Education Patient Instructions Indication:Nonsmoker Start:12-Mar-2018 Instruction Type:Provider Instructions for Treatment How to access health informa tion online Indication:Nonsmoker Start:05-Mar-2018 Instruction Type:Patient Education How to access health informa tion online - Detail Indication:Nonsmoker Start:05-Mar-2018 Instruction Type:Patient Education Patient Instructions Indication:Nonsmoker Start:05-Mar-2018 Instruction Type:Provider Instructions for Treatment How to access health informa tion online Indication:Nonsmoker Start:12-Feb-2018 Instruction Type:Patient Education How to access health informa tion online - Detail Indication:Nonsmoker Start:12-Feb-2018 Instruction Type:Patient Education Patient Instructions Indication:Nonsmoker Start:12-Feb-2018 Instruction Type:Provider Instructions for Treatment How to access health informa tion online Indication:Nonsmoker Start:06-Nov-2017 Instruction Type:Patient Education How to access health informa tion online - Detail Indication:Nonsmoker Start:06-Nov-2017 Instruction Type:Patient Education How to access health informa tion online Indication:Nonsmoker Start:09-Oct-2017 Instruction Type:Patient Education How to access health informa tion online - Detail Indication:Nonsmoker Start:09-Oct-2017 Instruction Type:Patient Education Patient Instructions Indication:Nonsmoker Start:09-Oct-2017 Instruction Type:Provider Instructions for Treatment How to access health informa tion online Indication:Nonsmoker Start:02-Oct-2017 Instruction Type:Patient Education How to access health informa tion online - Detail Indication:Nonsmoker Start:02-Oct-2017 Instruction Type:Patient Education Patient Instructions Indication:Nonsmoker Start:02-Oct-2017 Instruction Type:Provider Instructions for Treatment How to access health informa tion online Indication:Nonsmoker Start:25-Sep-2017 Instruction Type:Patient Education How to access health informa tion online - Detail Indication:Nonsmoker Start:25-Sep-2017 Instruction Type:Patient Education Patient Instructions Indication:Nonsmoker Start:25-Sep-2017 Instruction Type:Provider Instructions for Treatment How to access health informa tion online Indication:Abnormal glucose tolerance test (Renamed from Abnormal glucose tolerance test (GTT)) Start:03-Jul-2017 Instruction Type:Patient Education How to access health informa tion online - Detail Indication:Abnormal glucose tolerance test (Renamed from Abnormal glucose tolerance test (GTT)) Start:03-Jul-2017 Instruction Type:Patient Education Patient Instructions Indication:Abnormal glucose tolerance test (Renamed from Abnormal glucose tolerance test (GTT)) Start:03-Jul-2017 Instruction Type:Provider Instructions for Treatment How to access health informa tion online Indication:Nonsmoker Start:27-Feb-2017 Instruction Type:Patient Education How to access health informa tion online - Detail Indication:Nonsmoker Start:27-Feb-2017 Instruction Type:Patient Education Patient Instructions Indication:Nonsmoker Start:27-Feb-2017 Instruction Type:Provider Instructions for Treatment How to access health informa tion online Indication:Nonsmoker Start:05-Dec-2016 Instruction Type:Patient Education How to access health informa tion online - Detail Indication:Nonsmoker Start:05-Dec-2016 Instruction Type:Patient Education Patient Instructions Indication:Nonsmoker Start:05-Dec-2016 Instruction Type:Provider Instructions for Treatment How to access health informa tion online Indication:Nonsmoker Start:07-Nov-2016 Instruction Type:Patient Education How to access health informa tion online - Detail Indication:Nonsmoker Start:07-Nov-2016 Instruction Type:Patient Education Patient Instructions Indication:Nonsmoker Start:07-Nov-2016 Instruction Type:Provider Instructions for Treatment How to access health informa tion online Indication:Nonsmoker Start:15-Oct-2016 Instruction Type:Patient Education How to access health informa tion online Indication:BMI 45.0-49.9, adult Start:06-Aug-2016 Instruction Type:Patient Education How to access health informa tion online - Detail Indication:BMI 45.0-49.9, adult Start:06-Aug-2016 Instruction Type:Patient Education Patient Instructions Indication:BMI 45.0-49.9, adult Start:06-Aug-2016 Instruction Type:Provider Instructions for Treatment Patient Instructions Indication:Abnormal glucose tolerance test (Renamed from Abnormal glucose tolerance test (GTT)) Start:16-May-2016 Instruction Type:Provider Instructions for Treatment DISCONTINUED - HGB A1C (8303 6) Indication:Abnormal glucose tolerance test (Renamed from Abnormal glucose tolerance test (GTT)) Start:16-May-2016 Instruction Type:Patient Education How to access health informa tion online Indication:BMI 45.0-49.9, adult Start:20-Apr-2016 Instruction Type:Patient Education How to access health informa tion online - Detail Indication:BMI 45.0-49.9, adult Start:20-Apr-2016 Instruction Type:Patient Education Patient Instructions Indication:BMI 45.0-49.9, adult Start:20-Apr-2016 Instruction Type:Provider Instructions for Treatment How to access health informa tion online Indication:Nonsmoker Start:02-Apr-2016 Instruction Type:Patient Education How to access health informa tion online - Detail Indication:Nonsmoker Start:02-Apr-2016 Instruction Type:Patient Education Patient Instructions Indication:Nonsmoker Start:02-Apr-2016 Instruction Type:Provider Instructions for Treatment How to access health informa tion online - Detail Indication:Nonsmoker Start:28-Mar-2016 Instruction Type:Patient Education How to access health informa tion online Indication:Nonsmoker Start:28-Mar-2016 Instruction Type:Patient Education Patient Instructions Indication:Nonsmoker Start:28-Mar-2016 Instruction Type:Provider Instructions for Treatment Patient Instructions Indication:Vitamin D deficiency Start:14-Sep-2015 Instruction Type:Provider Instructions for Treatment How to access health informa tion online Indication:Rheumatoid arthritis Start:17-Aug-2015 Instruction Type:Patient Education How to access health informa tion online - Detail Indication:Rheumatoid arthritis Start:17-Aug-2015 Instruction Type:Patient Education Patient Instructions Indication:Rheumatoid arthritis Start:17-Aug-2015 Instruction Type:Provider Instructions for Treatment How to access health informa tion online Indication:Itching Start:23-Mar-2015 Instruction Type:Patient Education How to access health informa tion online - Detail Indication:Itching Start:23-Mar-2015 Instruction Type:Patient Education Patient Instructions Indication:Itching Start:23-Mar-2015 Instruction Type:Provider Instructions for Treatment How to access health informa tion online Indication:Neck pain Start:07-Feb-2015 Instruction Type:Patient Education How to access health informa tion online - Detail Indication:Neck pain Start:07-Feb-2015 Instruction Type:Patient Education Patient Instructions Indication:Neck pain Start:07-Feb-2015 Instruction Type:Provider Instructions for Treatment Patient Instructions Indication:Hypertension Start:07-Jun-2014 Instruction Type:Provider Instructions for Treatment How to access health informa tion online Indication:Hypertension Start:18-Jan-2014 Instruction Type:Patient Education How to access health informa tion online - Detail Indication:Hypertension Start:18-Jan-2014 Instruction Type:Patient Education Patient Instructions Indication:Hypertension Start:18-Jan-2014 Instruction Type:Provider Instructions for Treatment Patient Instructions Indication:Low back pain potentially associated with radiculopathy Start:21-Sep-2013 Instruction Type:Provider Instructions for Treatment Patient Instructions Indication:Low back pain potentially associated with radiculopathy Start:24-Jun-2013 Instruction Type:Provider Instructions for Treatment Patient Instructions Indication:Other intervertebral disc degeneration, lumbar region Start:18-May-2013 Instruction Type:Provider Instructions for Treatment Patient Instructions Indication:Radiculopathy of leg Start:24-Apr-2013 Instruction Type:Provider Instructions for Treatment Patient Instructions Indication:Hypertension Start:07-Jan-2013 Instruction Type:Provider Instructions for Treatment Patient Instructions Indication:Knee pain, left Start:23-Sep-2012 Instruction Type:Provider Instructions for Treatment Patient Instructions Indication:Eczema Start:03-Apr-2012 Instruction Type:Provider Instructions for Treatment Patient Instructions Indication:Allergic rhinitis Start:03-Mar-2012 Instruction Type:Provider Instructions for Treatment Patient Instructions Indication:Hypertension Start:31-Oct-2011 Instruction Type:Provider Instructions for Treatment Name Dates Details Patient Instructions Indication:BMI 45.0-49.9, adult Start:25-May-2020 Instruction Type:Provider Instructions for Treatment How to Access Health Informa tion Online using Patient Portal and [employer]rd [employer] Apps Indication:BMI 45.0-49.9, adult Start:25-May-2020 Instruction Type:Patient Education Patient Instructions Indication:BMI 45.0-49.9, adult Start:13-Apr-2020 Instruction Type:Provider Instructions for Treatment How to Access Health Informa tion Online using Patient Portal and 3rd [employer] Apps Indication:BMI 45.0-49.9, adult Start:13-Apr-2020 Instruction Type:Patient Education How to Access Health Informa tion Online using Patient Portal and [employer]rd [employer] Apps Indication:Nonsmoker Start:25-Feb-2020 Instruction Type:Patient Education Patient Instructions Indication:Nonsmoker Start:25-Feb-2020 Instruction Type:Provider Instructions for Treatment How to access health informa tion online Indication:Nonsmoker Start:02-Dec-2019 Instruction Type:Patient Education How to access health informa tion online - Detail Indication:Nonsmoker Start:02-Dec-2019 Instruction Type:Patient Education Patient Instructions Indication:Nonsmoker Start:02-Dec-2019 Instruction Type:Provider Instructions for Treatment How to access health informa tion online Indication:Abnormal glucose tolerance test (Renamed from Abnormal glucose tolerance test (GTT)) Start:29-Jul-2019 Instruction Type:Patient Education How to access health informa tion online - Detail Indication:Abnormal glucose tolerance test (Renamed from Abnormal glucose tolerance test (GTT)) Start:29-Jul-2019 Instruction Type:Patient Education Patient Instructions Indication:Abnormal glucose tolerance test (Renamed from Abnormal glucose tolerance test (GTT)) Start:29-Jul-2019 Instruction Type:Provider Instructions for Treatment How to access health informa tion online Indication:BMI 45.0-49.9, adult Start:25-Mar-2019 Instruction Type:Patient Education How to access health informa tion online - Detail Indication:BMI 45.0-49.9, adult Start:25-Mar-2019 Instruction Type:Patient Education Patient Instructions Indication:BMI 45.0-49.9, adult Start:25-Mar-2019 Instruction Type:Provider Instructions for Treatment How to access health informa tion online Indication:Nonsmoker Start:19-Nov-2018 Instruction Type:Patient Education How to access health informa tion online - Detail Indication:Nonsmoker Start:19-Nov-2018 Instruction Type:Patient Education Patient Instructions Indication:Nonsmoker Start:19-Nov-2018 Instruction Type:Provider Instructions for Treatment How to access health informa tion online Indication:Leg swelling Start:29-Oct-2018 Instruction Type:Patient Education How to access health informa tion online - Detail Indication:Leg swelling Start:29-Oct-2018 Instruction Type:Patient Education Patient Instructions Indication:Leg swelling Start:29-Oct-2018 Instruction Type:Provider Instructions for Treatment How to access health informa tion online Indication:BMI 40.0-44.9, adult Start:21-Aug-2018 Instruction Type:Patient Education How to access health informa tion online - Detail Indication:BMI 40.0-44.9, adult Start:21-Aug-2018 Instruction Type:Patient Education Patient Instructions Indication:BMI 40.0-44.9, adult Start:21-Aug-2018 Instruction Type:Provider Instructions for Treatment How to access health informa tion online Indication:BMI 40.0-44.9, adult Start:13-Aug-2018 Instruction Type:Patient Education How to access health informa tion online - Detail Indication:BMI 40.0-44.9, adult Start:13-Aug-2018 Instruction Type:Patient Education Patient Instructions Indication:BMI 40.0-44.9, adult Start:13-Aug-2018 Instruction Type:Provider Instructions for Treatment How to access health informa tion online Indication:BMI 40.0-44.9, adult Start:21-May-2018 Instruction Type:Patient Education How to access health informa tion online - Detail Indication:BMI 40.0-44.9, adult Start:21-May-2018 Instruction Type:Patient Education Patient Instructions Indication:BMI 40.0-44.9, adult Start:21-May-2018 Instruction Type:Provider Instructions for Treatment How to access health informa tion online Indication:Nonsmoker Start:23-Apr-2018 Instruction Type:Patient Education How to access health informa tion online - Detail Indication:Nonsmoker Start:23-Apr-2018 Instruction Type:Patient Education Patient Instructions Indication:Nonsmoker Start:23-Apr-2018 Instruction Type:Provider Instructions for Treatment How to access health informa tion online Indication:BMI 40.0-44.9, adult Start:09-Apr-2018 Instruction Type:Patient Education How to access health informa tion online - Detail Indication:BMI 40.0-44.9, adult Start:09-Apr-2018 Instruction Type:Patient Education Patient Instructions Indication:BMI 40.0-44.9, adult Start:09-Apr-2018 Instruction Type:Provider Instructions for Treatment How to access health informa tion online Indication:Nonsmoker Start:12-Mar-2018 Instruction Type:Patient Education How to access health informa tion online - Detail Indication:Nonsmoker Start:12-Mar-2018 Instruction Type:Patient Education Patient Instructions Indication:Nonsmoker Start:12-Mar-2018 Instruction Type:Provider Instructions for Treatment How to access health informa tion online Indication:Nonsmoker Start:05-Mar-2018 Instruction Type:Patient Education How to access health informa tion online - Detail Indication:Nonsmoker Start:05-Mar-2018 Instruction Type:Patient Education Patient Instructions Indication:Nonsmoker Start:05-Mar-2018 Instruction Type:Provider Instructions for Treatment How to access health informa tion online Indication:Nonsmoker Start:12-Feb-2018 Instruction Type:Patient Education How to access health informa tion online - Detail Indication:Nonsmoker Start:12-Feb-2018 Instruction Type:Patient Education Patient Instructions Indication:Nonsmoker Start:12-Feb-2018 Instruction Type:Provider Instructions for Treatment How to access health informa tion online Indication:Nonsmoker Start:06-Nov-2017 Instruction Type:Patient Education How to access health informa tion online - Detail Indication:Nonsmoker Start:06-Nov-2017 Instruction Type:Patient Education How to access health informa tion online Indication:Nonsmoker Start:09-Oct-2017 Instruction Type:Patient Education How to access health informa tion online - Detail Indication:Nonsmoker Start:09-Oct-2017 Instruction Type:Patient Education Patient Instructions Indication:Nonsmoker Start:09-Oct-2017 Instruction Type:Provider Instructions for Treatment How to access health informa tion online Indication:Nonsmoker Start:02-Oct-2017 Instruction Type:Patient Education How to access health informa tion online - Detail Indication:Nonsmoker Start:02-Oct-2017 Instruction Type:Patient Education Patient Instructions Indication:Nonsmoker Start:02-Oct-2017 Instruction Type:Provider Instructions for Treatment How to access health informa tion online Indication:Nonsmoker Start:25-Sep-2017 Instruction Type:Patient Education How to access health informa tion online - Detail Indication:Nonsmoker Start:25-Sep-2017 Instruction Type:Patient Education Patient Instructions Indication:Nonsmoker Start:25-Sep-2017 Instruction Type:Provider Instructions for Treatment How to access health informa tion online Indication:Abnormal glucose tolerance test (Renamed from Abnormal glucose tolerance test (GTT)) Start:03-Jul-2017 Instruction Type:Patient Education How to access health informa tion online - Detail Indication:Abnormal glucose tolerance test (Renamed from Abnormal glucose tolerance test (GTT)) Start:03-Jul-2017 Instruction Type:Patient Education Patient Instructions Indication:Abnormal glucose tolerance test (Renamed from Abnormal glucose tolerance test (GTT)) Start:03-Jul-2017 Instruction Type:Provider Instructions for Treatment How to access health informa tion online Indication:Nonsmoker Start:27-Feb-2017 Instruction Type:Patient Education How to access health informa tion online - Detail Indication:Nonsmoker Start:27-Feb-2017 Instruction Type:Patient Education Patient Instructions Indication:Nonsmoker Start:27-Feb-2017 Instruction Type:Provider Instructions for Treatment How to access health informa tion online Indication:Nonsmoker Start:05-Dec-2016 Instruction Type:Patient Education How to access health informa tion online - Detail Indication:Nonsmoker Start:05-Dec-2016 Instruction Type:Patient Education Patient Instructions Indication:Nonsmoker Start:05-Dec-2016 Instruction Type:Provider Instructions for Treatment How to access health informa tion online Indication:Nonsmoker Start:07-Nov-2016 Instruction Type:Patient Education How to access health informa tion online - Detail Indication:Nonsmoker Start:07-Nov-2016 Instruction Type:Patient Education Patient Instructions Indication:Nonsmoker Start:07-Nov-2016 Instruction Type:Provider Instructions for Treatment How to access health informa tion online Indication:Nonsmoker Start:15-Oct-2016 Instruction Type:Patient Education How to access health informa tion online Indication:BMI 45.0-49.9, adult Start:06-Aug-2016 Instruction Type:Patient Education How to access health informa tion online - Detail Indication:BMI 45.0-49.9, adult Start:06-Aug-2016 Instruction Type:Patient Education Patient Instructions Indication:BMI 45.0-49.9, adult Start:06-Aug-2016 Instruction Type:Provider Instructions for Treatment Patient Instructions Indication:Abnormal glucose tolerance test (Renamed from Abnormal glucose tolerance test (GTT)) Start:16-May-2016 Instruction Type:Provider Instructions for Treatment DISCONTINUED - HGB A1C (8303 6) Indication:Abnormal glucose tolerance test (Renamed from Abnormal glucose tolerance test (GTT)) Start:16-May-2016 Instruction Type:Patient Education How to access health informa tion online Indication:BMI 45.0-49.9, adult Start:20-Apr-2016 Instruction Type:Patient Education How to access health informa tion online - Detail Indication:BMI 45.0-49.9, adult Start:20-Apr-2016 Instruction Type:Patient Education Patient Instructions Indication:BMI 45.0-49.9, adult Start:20-Apr-2016 Instruction Type:Provider Instructions for Treatment How to access health informa tion online Indication:Nonsmoker Start:02-Apr-2016 Instruction Type:Patient Education How to access health informa tion online - Detail Indication:Nonsmoker Start:02-Apr-2016 Instruction Type:Patient Education Patient Instructions Indication:Nonsmoker Start:02-Apr-2016 Instruction Type:Provider Instructions for Treatment How to access health informa tion online - Detail Indication:Nonsmoker Start:28-Mar-2016 Instruction Type:Patient Education How to access health informa tion online Indication:Nonsmoker Start:28-Mar-2016 Instruction Type:Patient Education Patient Instructions Indication:Nonsmoker Start:28-Mar-2016 Instruction Type:Provider Instructions for Treatment Patient Instructions Indication:Vitamin D deficiency Start:14-Sep-2015 Instruction Type:Provider Instructions for Treatment How to access health informa tion online Indication:Rheumatoid arthritis Start:17-Aug-2015 Instruction Type:Patient Education How to access health informa tion online - Detail Indication:Rheumatoid arthritis Start:17-Aug-2015 Instruction Type:Patient Education Patient Instructions Indication:Rheumatoid arthritis Start:17-Aug-2015 Instruction Type:Provider Instructions for Treatment How to access health informa tion online Indication:Itching Start:23-Mar-2015 Instruction Type:Patient Education How to access health informa tion online - Detail Indication:Itching Start:23-Mar-2015 Instruction Type:Patient Education Patient Instructions Indication:Itching Start:23-Mar-2015 Instruction Type:Provider Instructions for Treatment How to access health informa tion online Indication:Neck pain Start:07-Feb-2015 Instruction Type:Patient Education How to access health informa tion online - Detail Indication:Neck pain Start:07-Feb-2015 Instruction Type:Patient Education Patient Instructions Indication:Neck pain Start:07-Feb-2015 Instruction Type:Provider Instructions for Treatment Patient Instructions Indication:Hypertension Start:07-Jun-2014 Instruction Type:Provider Instructions for Treatment How to access health informa tion online Indication:Hypertension Start:18-Jan-2014 Instruction Type:Patient Education How to access health informa tion online - Detail Indication:Hypertension Start:18-Jan-2014 Instruction Type:Patient Education Patient Instructions Indication:Hypertension Start:18-Jan-2014 Instruction Type:Provider Instructions for Treatment Patient Instructions Indication:Low back pain potentially associated with radiculopathy Start:21-Sep-2013 Instruction Type:Provider Instructions for Treatment Patient Instructions Indication:Low back pain potentially associated with radiculopathy Start:24-Jun-2013 Instruction Type:Provider Instructions for Treatment Patient Instructions Indication:Other intervertebral disc degeneration, lumbar region Start:18-May-2013 Instruction Type:Provider Instructions for Treatment Patient Instructions Indication:Radiculopathy of leg Start:24-Apr-2013 Instruction Type:Provider Instructions for Treatment Patient Instructions Indication:Hypertension Start:07-Jan-2013 Instruction Type:Provider Instructions for Treatment Patient Instructions Indication:Knee pain, left Start:23-Sep-2012 Instruction Type:Provider Instructions for Treatment Patient Instructions Indication:Eczema Start:03-Apr-2012 Instruction Type:Provider Instructions for Treatment Patient Instructions Indication:Allergic rhinitis Start:03-Mar-2012 Instruction Type:Provider Instructions for Treatment Patient Instructions Indication:Hypertension Start:31-Oct-2011 Instruction Type:Provider Instructions for Treatment Summary Purpose Advance Directives Advance Directive Response Recorded Date/ Time Living Will No October 15 9 1:08pm Power of Software Architect No October 15 019 1:08pm Advance Directive Response Recorded Date/ Time Name of Medical Power of Software Architect SPOUSE January 23, 2022 9:37am Living Will Yes January 23 9:37am Power of Software Architect Yes January 23, 2022 9:37am Advance Directive Response Recorded Date/ Time Living Will Yes January 23 10:37am Power of Software Architect Yes January 23, 2022 10:37am Advance Directive Response Recorded Date/ Time Living Will Yes January 23 9:37am Power of Software Architect Yes January 23, 2022 9:37am Chief Complaint and Reason for Visit Chief Complaint 1 Y FU SINUS INFECTION/ATHLETES FOOT 6 M FU EORDERS Reason for Visit BMI greater than 40 KAYLEE (obstructive sleep apnea) Acute maxillary sinusitis, unspecified Tinea pedis Actinic keratoses Diabetes GERD with apnea Osteoarthritis Vitamin D deficiency BMI greater than 40 Hiatal hernia HTN (hypertension) KAYLEE (obstructive sleep apnea) Chief Complaint 1 Y FU SINUS INFECTION/ATHLETES FOOT 6 M FU EORDERS E ORDER Reason for Visit BMI greater than 40 KAYLEE (obstructive sleep apnea) Acute maxillary sinusitis, unspecified Tinea pedis Actinic keratoses Diabetes GERD with apnea Osteoarthritis Vitamin D deficiency BMI greater than 40 Hiatal hernia HTN (hypertension) KAYLEE (obstructive sleep apnea) Chief Complaint E ORDER Consult 1 Y FU Reason for Visit GERD (gastroesophage al reflux disease) Hiatal hernia Obesity due to excess calories KAYLEE (obstructive sleep apnea) Chief Complaint 6 M FU E ORDERS Reason for Visit Actinic keratosis of scalp Diabetes Osteoarthritis BMI greater than 40 GERD (gastroesophageal reflux disease) HTN (hypertension) Rheumatoid arthritis Chief Complaint 1 Y FU 6 M FU INT LABS Reason for Visit Obesity due to exces s calories KAYLEE (obstructive sleep apnea) Diabetes Elevated hemoglobin A1c HTN (hypertension) KAYLEE (obstructive sleep apnea) Rheumatoid arthritis Chief Complaint Admit Date 6 M FU July 29, 2024 7:51a m Reason for Visit Admit Date Actinic keratosis of scalp July 29 7:51am Chief Complaint Admit Date 6 M FU July 29, 2024 7:51a m Calcinosis cutis August 12, 2024 11:0 5am Reason for Visit Admit Date Actinic keratosis of scalp July 29 7:51am Diabetes July 29, 2024 7:51a m Skin lesion of chest wall July 29, 2024 7:51am Vitamin D deficiency July 29, 2024 7:51 am HTN (hypertension) July 29, 2024 7:51a m Obesity July 29, 2024 7:51a m KAYLEE (obstructive sleep apnea) July 29, 2024 7:51am Chief Complaint Admit Date 6 M FU July 29, 2024 7:51a m Calcinosis cutis August 12, 2024 11:0 5am Lymphedema, Phlebitis LE September 09, 2024 1:36pm Chief Complaint Admit Date Lymphedema, Phlebitis LE September 09, 2024 1:36pm 1 Y FU December 15, 2024 8 :44am Reason for Visit Admit Date Hemosiderin pigmentation of lower extremity due to varicose veins September 09, 2024 1:36pm Obesity December 15, 2024 8 :44am KAYLEE (obstructive sleep apnea) December 152024 8:44am Additional Source Comments (unrecognized sect ion and content) No Status Records FoundNo Status Records Found INFORMATION SOURCE (unrecogn ized section and content) DATE CREATED AUTHOR 05/08/2018 [facility] DATE CREATED AUTHOR AUTHOR'S LULA ATELENA 12/16/2024 [facility] Goals (unrecognized section and content) Goals may be documented in a n alternate sectionGoals may be documented in an alternate sectionGoals may be documented in an alternate sectionGoals may be documented in an alternate sectionGoals may be documented in an alternate sectionGoals may be documented in an alternate sectionGoals may be documented in an alternate sectionGoals may be documented in an alternate sectionGoals may be documented in an alternate section Care Teams (unrecognized sec tion and content) Team Status: Active Member Role Status Dates Dr. Cari Portillo DO Family Provider Active Dr. Latesha Zafar MD Primary Care Provider Active Team Status: Inactive Member Role Status Dates Dr. Latesha Zafar MD [facility], [facility] Active Team Status: Inactive Member Role Status Dates Dr. Latesha Zafar MD Primary Care Pro vider, Attending Provider, Referring Provider Active Team Status: Inactive Member Role Status Dates Dr. Latesha Zafar MD Primary Care Provider, Referri ng Provider Active Dr. Colin Plata MD Attending Provider Active Team Status: Inactive Member Role Status Dates Dr. Latesha Zafar MD Primary Care Provider Active Start: July 16, 2024 End: July 16, 2024 Dr. Latesha Zafar MD Attending Provider Active Start: July 16, 2024 End: July 16, 2024 Dr. Latesha Zafar MD Referring Provider Active Start: July 16, 2024 End: July 16, 2024 Team Status: Active Member Role Status Dates Dr. Latesha Zafar MD Primary Care Provider Active Team Status: Inactive Member Role Status Dates Dr. Latesha Zafar MD Primary Care Provider Active Start: July 29, 2024 End: July 29, 2024 Dr. Latesha Zafar MD Attending Provider Active Start: July 29, 2024 End: July 29, 2024 Team Status: Inactive Member Role Status Dates Dr. Latesha Zafar MD Primary Care Provider Active Start: August 12, 2024 End: August 12, 2024 Dr. Ruchi Valenzuela DPM Attending Provider Active Start: August 12, 2024 End: August 12, 2024 Dr. Ruchi Valenzuela DPM Referring Provider Active Start: August 12, 2024 End: August 12, 2024 Team Status: Active Member Role/Relationship Status Dates Dr. Latesha Zafar MD Primary Care Provider Active Team Status: Inactive Member Role/Relationship Status Dates Dr. Latesha Zafar MD Primary Care Provider Active Start: July 16, 2024 End: July 16, 2024 Dr. Latesha Zafar MD Attending Provider Active Start: July 16, 2024 End: July 16, 2024 Dr. Latesha Zafar MD Referring Provider Active Start: July 16, 2024 End: July 16, 2024 Team Status: Inactive Member Role/Relationship Status Dates Dr. Latesha Zafar MD Primary Care Provider Active Start: July 29, 2024 End: July 29, 2024 Dr. Latesha Zafar MD Attending Provider Active Start: July 29, 2024 End: July 29, 2024 Team Status: Inactive Member Role/Relationship Status Dates Dr. Latesha Zafar MD Primary Care Provider Active Start: August 12, 2024 End: August 12, 2024 Dr. Ruchi Valenzuela DPM Attending Provider Active Start: August 12, 2024 End: August 12, 2024 Dr. Ruchi Valenzuela DPM Referring Provider Active Start: August 12, 2024 End: August 12, 2024 Team Status: Inactive Member Role/Relationship Status Dates STARR Ospina Attending Provider Active Star t: September 09, 2024 End: September 09, 2024 Dr. Ruchi Valenzuela DPM Referring Provider Active Start: September 09, 2024 End: September 09, 2024 Dr. Latesha Zafar MD Primary Care Provider Active Start: September 09, 2024 End: September 09, 2024 Team Status: Active Member Role/Relationship Status Dates Dr. Latesha Zafar MD Primary care physician Active Team Status: Inactive Member Role/Relationship Status Dates STARR Ospina Attending physician Active Sta rt: September 09, 2024 End: September 09, 2024 Dr. Ruchi Valenzuela DPM Referring Provider Active Start: September 09, 2024 End: September 09, 2024 Dr. Latesha Zafar MD Primary care physician Active Start: September 09, 2024 End: September 09, 2024 Team Status: Inactive Member Role/Relationship Status Dates Dr. Latesha Zafar MD Primary care physician Active Start: December 15, 2024 End: December 15, 2024 Dr. Latesha Zafar MD Referring Provider Active Start: December 15, 2024 End: December 15, 2024 Neyda Coley NP, [employer] Attending physician Active Start: December 15, 2024 End: December 15, 2024 FOR RECORDS PERTAINING TO PATIENTS WHO ARE OR HAVE BEEN ENROLLED IN A CHEMICAL DEPENDENCY/SUBSTANCEABUSE PROGRAM, SOME INFORMATION MAY BE OMITTED. This clinical summary was aggregated from multiple sources. Caution should be exercised in using it in the provision of clinical care. This summary normalizes information from multiple sources, and as a consequence, information in this document may materially change the coding, format and clinical context of patient data. In addition, data may be omitted in some cases. CLINICAL DECISIONS SHOULD BE BASED ON THE PRIMARY CLINICAL RECORDS. [employer] [facility]. provides no warranty or guarantee of the accuracy or completeness of information in this document.
[2025-01-25 07:24] LABS: Hematocrit 44.2 % (40-54); Hemoglobin 14.1 g/dL (13.0-16.5); Immature Granulocytes Count 0.020 X10^3/uL (0.0-0.0); Mean Corp Hgb Conc 31.9 g/dL (32-36); Mean Corpuscular Volume 90.0 fL (80-94); Mean Platelet Vol. 9.8 fl (6.2-12.0); NRBC Flagged by Analyzer 0 % (0-5); Platelet Count 229 K/mm3 (150-450); RBC Distribution Width CV 13.7 % (11.6-14.6); RBC Distribution Width SD 45.3 fl (35.1-43.9); Red Blood Count 4.91 M/mm3 (4.6-6.2); White Blood Count 6.8 K/mm3 (4.4-11.0)
[2025-01-25 08:28] LABS: AST(SGOT) 25 U/L (<=37); Alanine Aminotransfer ALT/SGPT 28 U/L (<=46); Albumin, Serum 4.1 g/dL (3.4-4.8); Alkaline Phosphatase 59 U/L (40-129); Anion Gap 9 (5-15); BUN 19 mg/dL (4-19); BUN/Creat Ratio 19.4 RATIO (10-20); Calcium,Total 9.1 mg/dL (7.6-11.0); Carbon Dioxide 27.0 mmol/L (21.0-32.0); Chloride 105 mmol/L (98-108); Cholesterol 156 mg/dL (<=200); Globulin 2.8 g/dL (2.2-4.2); Glucose 100 mg/dL (70-99); Low Density Lipoprotein Calc. 92 mg/dL; Potassium 4.2 mmol/L (3.3-5.1); Triglycerides 110 mg/dL; Very Low Density Lipoprotein 22 mg/dL (5-40); Vitamin D,25 Hydroxy 43.8 ng/mL (30-100); cholesterol:hdl ratio screen 3.54
== END | disposition home or self-care (01) ==
PROVIDERS: PCP Internal Medicine; Referring Provider Internal Medicine; Visit Provider Internal Medicine
DX: E11.9 Type 2 diabetes mellitus without complications (principal); E66.813 Obesity, class 3; E66.01 Morbid (severe) obesity due to excess calories; Z68.41 Body mass index [BMI] 40.0-44.9, adult; E55.9 Vitamin D deficiency, unspecified; G47.33 Obstructive sleep apnea (adult) (pediatric); I10 Essential (primary) hypertension
CPT/HCPCS: 36415; 80053; 80061; 82306; 83036; 84443; 85025